=== PATIENT | female | born 1965 | race African-American/Black ===

== ENCOUNTER 2019-08-25 10:45 | Inpatient (IN) | payer OTHER ==
[2019-08-25] MEDS ORDERED: methylPREDNISolone NA SUCC 125 MG/2 ML VIAL IVPB ONE (10:53)
[2019-08-25 11:24] LABS: ARTERIAL BLD GAS O2 SATURATION 96.2 % (95-98); ARTERIAL BLOOD GAS BASE EXCESS -12.7 meq/l (-2-2); ARTERIAL BLOOD GAS PCO2 57.8 mmHg (35-45); ARTERIAL BLOOD GAS PO2 115 mmHg (80-100); BASO % 0.3 % (0-2.0); HEMATOCRIT 23.9 % (32.4-45.2); HEMOGLOBIN 7.8 GM/dL (10.7-15.3); LYMPH % 15.2 % (8-40); MCH 29.6 pg (25.7-33.7); MCHC 32.5 g/dl (32.0-36.0); MEAN PLT VOLUME 8.1 fl (7.5-11.1); MONO % 2.7 % (3.8-10.2); NEUT % 81.8 % (42.8-82.8); PLATELET COUNT 219 K/MM3 (134-434); RBC 2.63 M/mm3 (3.60-5.2)
[2019-08-25 11:26] LABS: ALLENS TEST POSITIVE; INR 0.89 (0.83-1.09); PROTHROMBIN TIME (PATIENT) 10.5 SEC (9.7-13.0)
[2019-08-25 11:27] LABS: ARTERIAL BLOOD GAS pH 7.09 (7.35-7.45)
[2019-08-25 11:29] LABS: ACTIVATED PTT 51.2 SECONDS (25.2-36.5)
[2019-08-25] MEDS: ALBUTEROL SO4 2.5/IPRATROPIUM 0.5 INH SOL 3 ML VIAL.NEB. NEB SCH ×2 (11:54→11:55)
--- NOTE | 2019-08-25 12:05 | PDOC ---
Documentation entered by Marty Weiss SCRIBE, acting as scribe for Joe Olmos MD. Joe Olmos MD: This documentation has been prepared by the Isela morales Nirvannie, SCRIBE, under my direction and personally reviewed by me in its entirety. I confirm that the documentation accurately reflects all work, treatment, procedures, and medical decision making performed by me. Attending Attestation - Resident Resident Name: WilliamsonGoldenann - ED Attending Attestation I have performed the following: I have examined & evaluated the patient, The case was reviewed & discussed with the resident, I agree w/resident's findings & plan, Exceptions are as noted - HPI HPI: 08/25/19 11:32 The patient is a 54 year old female, with a significant past medical history of COPD, IDDM, HTN, ?CHF, who presents to the emergency department from home via EMS with shortness of breath and lethargy. As per patients at bedside, patients son who is normally not around called EMS because the patient was lethargic. notes she takes many pills which, causes her to be drowsy". As per EMS, her vitals were 140/72 and 97% on room air. Patient received one nebulizer treatment en route. As per son on the phone, patient has experienced similar episodes in the past, which he attributed to her diabetes. He notes this is not her baseline. Allergies: NKDA - Physicial Exam PE: 08/25/19 12:44 See resident exam - Critical Care Time Total Critical Care Time: 180 Critical Care Statement: The care of this patient involved high complexity decision making to prevent further life threatening deterioration of the patient 's condition and/or to evaluate & treat vital organ system(s) failure or risk of failure. - Medical Decision Making 08/25/19 12:45 54 F with lethargy, SOB. Breathing sonorously in ED. Now on BiPAP Pt found to be acidotic to 7.09, lactate negative, pCO2 50s. Bicarb 18. Metabolic acidosis with mild respiratory acidosis. Pt's TSH measured to be 100 Possible myxedema coma, will check Free T4 08/25/19 13:05 Creatinine 7, no prior values in our system 08/25/19 14:58 Repeat ABG shows worsening acidosis, 7.06, pCO2 60 Pt's mental status unchanged, lethargic but arousable Will intubate for hypercapnic respiratory failure
[2019-08-25 12:06] LABS: ANISOCYTOSIS 2+; PLATELET ESTIMATE NORMAL
--- NOTE | 2019-08-25 12:14 | PDOC ---
History of Present Illness - General Chief Complaint: Respiratory Distress Stated Complaint: WEAKNESS Time Seen by Provider: 08/25/19 10:51 - History of Present Illness Initial Comments: 08/25/19 12:14 54 yo F PMH HTN, HLD, IDDM, COPD, anemia, thyroid cancer 6 years ago, BIBEMS with SOB and AMS. Here with boyfriend, who is unable or unwilling to provide much information. All history per son Isael Hill over the phone. Per the son , patient is normally walky talky, but has had many episodes in the past where she has gotten lethargic. However, these have reportedly always been due to sugar issues, either too high or too low. No known history of heart failure. Yesterday afternoon, patient apparently started to have worsening lethargy. Today, they attempted to get orange juice into her out of concern for her blood sugar, although finger stick was 251. Uncertain whether patient has been taking her medications. She recently moved to [place] this summer, had been going to [facility]. Pharmacy: [facility], [address] [facility], Isael Hill (son) phone: [phone] Allergies: seafood, dust, pollen Past History - Past Medical History Allergies/Adverse Reactions: Allergies Allergy/AdvReac Type Severity Reaction Status Date / Time No Known Allergies Allergy Verified 08/25/19 11:32 COPD: Yes Diabetes: Yes HTN: Yes Hypercholesterolemia: Yes Thyroid Disease: Yes - Immunization History Immunization Up to Date: Yes - Psycho Social/Smoking Cessation Hx Smoking History: Unknown if ever smoked Review of Systems - Review of Systems Comments:: 08/25/19 13:17 Unable to assess as patient is unable to answer questions *Physical Exam - Vital Signs Last Vital Signs Temp Pulse Resp BP Pulse Ox 94.5 F L 74 28 H 131/80 96 08/25/19 11:33 08/25/19 11:33 08/25/19 11:33 08/25/19 11:33 08/25/19 11:33 - Physical Exam 08/25/19 13:17 Gen: sleepy, lethargic, obese, BIPAP in place, ANN MARIE hugger in place Neuro: unable to assess, patient arousable to sternal rub, intermittently to voice, protecting airway HEENT: atraumatic, normocephalic, dry mucous membranes Neck: trachea midline, surgical scar CV: regular rate, regular rhythm, no murmurs, rubs, or gallops Pulm: expiratory snorting Abd: soft, non-distended, non-tender MSK: full ROM, intact pulses Extr: 2+ pitting edema to the knees, no deformities Skin: warm, dry Procedures - Intubation Time of Intubation: 16:00 Blade used: Glidescope Tube Size (Fr): 7.5 Medications: Ketamine Tube position @ lip (cm): 24 Tube position confirmed by: Direct visualization, CO2 detector, Breath sounds Intubation Complications: oralbleed ED Treatment Course - LABORATORY CBC & Chemistry Diagram: 08/25/19 11:00 08/25/19 11:00 - ADDITIONAL ORDERS Additional order review: Laboratory Results 08/25/19 08/25/19 08/25/19 11:00 11:00 11:00 PT with INR 10.50 INR 0.89 PTT (Actin FS) 51.2 H Anticoagulation Therapy No Result Required. Puncture Site Left radial ABG pH 7.09 L* ABG pCO2 at Pt Temp 57.8 H ABG pO2 at Pt Temp 115 H ABG HCO3 16.7 L ABG O2 Sat (Measured) 96.2 ABG O2 Content 13.0 ABG Base Excess -12.7 L Sky Test Positive O2 Delivery Device No Result Required. Oxygen Flow Rate 3l Vent Mode No Result Required. Vent Rate No Result Required. Mechanical Rate No Result Required. Pressure Support Vent No Result Required. Lactic Acid 0.7 Ammonia 08/25/19 08/25/19 11:00 11:00 PT with INR INR PTT (Actin FS) Cancelled Anticoagulation Therapy Puncture Site ABG pH ABG pCO2 at Pt Temp ABG pO2 at Pt Temp ABG HCO3 ABG O2 Sat (Measured) ABG O2 Content ABG Base Excess Sky Test O2 Delivery Device Oxygen Flow Rate Vent Mode Vent Rate Mechanical Rate Pressure Support Vent Lactic Acid Ammonia 24.90 08/25/19 11:00 RBC 2.63 L MCV 91.0 MCHC 32.5 RDW 20.0 H MPV 8.1 Neutrophils % 81.8 Lymphocytes % 15.2 Monocytes % 2.7 L Eosinophils % 0.0 Basophils % 0.3 Medical Decision Making - Medical Decision Making 08/25/19 13:12 54 yo F PMH thyroid issues, COPD, with SOB and AMS. - sepsis order set - EKG normal sinus at 78 bpm, low voltage QRS - CXR with congestive changes - ABG with pH 7.09 - TSH 100 - Cr 7.7, unknown history of kidney disease - BNP 3649.9, unknown history of CHF - will admit to ICU Patient discussed with [employer]RA[employer] Jackie, will get patient to the unit. Concern for myxedema v sepsis v COPD exacerbation vs CHF exacerbation. Giving IV levothyroxine 400 mcg. 08/25/19 14:41 Repeat ABG with pH 7.05 from 7.09, O2 88 from 96 Discharge - Discharge Information Problems reviewed: Yes Clinical Impression/Diagnosis: Myxedema coma, Acute renal failure, AMS (altered mental status), SOB ( shortness of breath) - Admission Yes - Follow up/Referral - Patient Discharge Instructions - Post Discharge Activity
[2019-08-25 12:19] LABS: ALBUMIN 2.5 g/dl (3.4-5.0); BILIRUBIN,TOTAL 0.5 mg/dL (0.2-1); BLOOD UREA NITROGEN 65.7 mg/dL (7-18); MAGNESIUM 1.6 mg/dL (1.8-2.4); N-TERMINAL BNP 3649.4 pg/ml (5-125); PHOSPHOROUS 6.3 mg/dL (2.5-4.9); POTASSIUM 4.9 mmol/L (3.5-5.1); TOT PROT 6.7 g/dl (6.4-8.2)
[2019-08-25 12:21] LABS: CALCIUM 6.8 mg/dL (8.5-10.1); CREATININE 7.7 mg/dL (0.55-1.3)
[2019-08-25] MEDS ORDERED: LEVOTHYROXINE SODIUM 100 MCG VIAL IVPUSH ONE (12:27)
[2019-08-25] MEDS ORDERED: SODIUM CHLORIDE 0.9% 500 ML INFUS.BAG IV ONE (13:07)
[2019-08-25 13:31] LABS: COCAINE, UR NEGATIVE ng/ml (CUTOFF=300); METHADONE, UR NEGATIVE ng/ml (CUTOFF=300); OPIATES, URI NEGATIVE ng/ml (CUTOFF=300); PHENCYCLIDINE,URINE NEGATIVE ng/ml (CUTOFF=25); URINE AMPHETAMINES NEGATIVE ng/ml (CUTOFF=500); URINE BARBITURATES NEGATIVE ng/ml (CUTOFF=200); URINE BENZODIAZEPINES NEGATIVE ng/ml (CUTOFF=200)
[2019-08-25] MEDS ORDERED: KETAMINE HCL 200 MG/20 ML VIAL IVPUSH ONE ×2 (13:48→16:25)
--- NOTE | 2019-08-25 14:19 | HP ---
CHIEF COMPLAINT: alerted mental status, shortness of breath PCP: does not have one HISTORY OF PRESENT ILLNESS: Patient is a 54 year old morbid obese female with a significant past medical history of hypertension, hyperlipidemia, diabetes, COPD, anemia, thyroid cancer 6 years ago (no prior admission to [facility]). Patient brought into the ED today for altered mental status and acute shortness of breath. She was found to have an elevated TSH, low t4 and hypothermic (96f-97-on mariana hugger). Urine is + for ecstasy. She also has renal failure with a creat of 7.7, bun of 65,mag 1.6, elevated ast/alt. In the ED she was placed on bipap pressure support for respiratory acidosis with a ph of 7.07,co2 64. Patient being admitted for myxedema coma, acute renal failure, acute metabolic encephalopathy , metabolic acidosis, hypercapneic respiratory failuare. Repeat abg without improvement of acidosis, and elevated co2. patient now intubated to protect airway. Patient to be admitted to the ICU. ER course was notable for: (1) Levothyroxine 400mg x 1 (2) bipap, now intubated (3) sepsis order set sent, lactic acid wnl (4) EKG normal sinus at 78 bpm, low voltage QRS (5) CXR with congestive changes (6) ABG with pH 7.09 (7) TSH 100, free t4 0.24, hypothermia (8) Cr 7.7, unknown history of jayne (9) BNP 3649.9, unknown history of CHF (10) elevated ast/alt Imaging: Head ct: pending chest xray: Recent Travel: unable to answer/lethargic PAST MEDICAL/SURGICAL HISTORY: hypertension, hyperlipidemia, diabetes, COPD, anemia, thyroid cancer Social History: Smoking: unknown Alcohol: unknown Drugs: + ecstasy Allergies No Known Allergies Allergy (Verified 08/25/19 11:32) PHYSICAL EXAMINATION Vital Signs - 24 hr 08/25/19 11:33 Temperature 94.5 F L Pulse Rate 74 Respiratory 28 H Rate Blood Pressure 131/80 O2 Sat by Pulse 96 Oximetry (%) GENERAL: intubated HEAD: Normal with no signs of trauma. EYES: Pupils equal, round and reactive to light EARS, NOSE, THROAT: Ears normal, nares patent, oropharynx clear without exudates. Moist mucous membranes. NECK: Normal range of motion, supple without lymphadenopathy, JVD, or masses. LUNGS: mild wheezing on anterior lobes, posterior lobes diminished breath sounds HEART: Regular rate and rhythm ABDOMEN: large obese abdomen MUSCULOSKELETAL: No CVA tenderness. UPPER EXTREMITIES:no edema LOWER EXTREMITIES: +2 lower ext edema NEUROLOGICAL:lethargic PSYCHIATRIC: lethargic SKIN: multiple tatoos Laboratory Results - last 24 hr 08/25/19 08/25/19 08/25/19 11:00 11:00 11:00 WBC RBC Hgb Hct MCV MCH MCHC RDW Plt Count MPV Absolute Neuts (auto) Neutrophils % Neutrophils % (Manual) Band Neutrophils % Lymphocytes % Lymphocytes % (Manual) Monocytes % Monocytes % (Manual) Eosinophils % Eosinophils % (Manual) Basophils % Basophils % (Manual) Myelocytes % (Man) Promyelocytes % (Man) Blast Cells % (Manual) Nucleated RBC % Metamyelocytes Platelet Estimate Anisocytosis PT with INR INR PTT (Actin FS) Cancelled Anticoagulation Therapy Puncture Site ABG pH ABG pCO2 at Pt Temp ABG pO2 at Pt Temp ABG HCO3 ABG O2 Sat (Measured) ABG O2 Content ABG Base Excess Sky Test O2 Delivery Device Oxygen Flow Rate Vent Mode Vent Rate Mechanical Rate Pressure Support Vent Sodium Potassium Chloride Carbon Dioxide Anion Gap BUN Creatinine Est GFR (CKD-EPI)AfAm Est GFR (CKD-EPI)NonAf Random Glucose Lactic Acid Calcium Phosphorus Magnesium Total Bilirubin AST ALT Alkaline Phosphatase Ammonia 24.90 Creatine Kinase 2402 H Creatine Kinase Index 1.0 CK-MB (CK-2) 24.6 H Troponin I < 0.02 B-Natriuretic Peptide Total Protein Albumin Beta-Hydroxybutyrate 1.1 TSH Thyroxine (T4) 3.2 L Stool Occult Blood Salicylates Opiates Screen Methadone Screen Acetaminophen Barbiturate Screen Phencyclidine Screen Ur Amphetamines Screen MDMA (Ecstasy) Screen Benzodiazepines Screen Cocaine Screen U Marijuana (THC) Screen Blood Type Antibody Screen 08/25/19 08/25/19 08/25/19 11:00 11:00 11:00 WBC 6.0 RBC 2.63 L Hgb 7.8 L Hct 23.9 L MCV 91.0 MCH 29.6 MCHC 32.5 RDW 20.0 H Plt Count 219 MPV 8.1 Absolute Neuts (auto) 4.9 Neutrophils % 81.8 Neutrophils % (Manual) 84.0 H Band Neutrophils % 1.0 Lymphocytes % 15.2 Lymphocytes % (Manual) 13.0 Monocytes % 2.7 L Monocytes % (Manual) 1 L Eosinophils % 0.0 Eosinophils % (Manual) 0.0 Basophils % 0.3 Basophils % (Manual) 1.0 Myelocytes % (Man) 0 Promyelocytes % (Man) 0 Blast Cells % (Manual) 0 Nucleated RBC % 0 Metamyelocytes 0 Platelet Estimate Normal Anisocytosis 2+ PT with INR INR PTT (Actin FS) Anticoagulation Therapy Puncture Site ABG pH ABG pCO2 at Pt Temp ABG pO2 at Pt Temp ABG HCO3 ABG O2 Sat (Measured) ABG O2 Content ABG Base Excess Sky Test O2 Delivery Device Oxygen Flow Rate Vent Mode Vent Rate Mechanical Rate Pressure Support Vent Sodium 139 Potassium 4.9 Chloride 111 H Carbon Dioxide 18 L Anion Gap 10 BUN 65.7 H Creatinine 7.7 H* Est GFR (CKD-EPI)AfAm 6.36 Est GFR (CKD-EPI)NonAf 5.49 Random Glucose 249 H Lactic Acid 0.7 Calcium 6.8 L* Phosphorus 6.3 H Magnesium 1.6 L Total Bilirubin 0.5 AST 110 H ALT 136 H Alkaline Phosphatase 959 H Ammonia Creatine Kinase Creatine Kinase Index CK-MB (CK-2) Troponin I B-Natriuretic Peptide 3649.4 H Total Protein 6.7 Albumin 2.5 L Beta-Hydroxybutyrate TSH 100.00 H Thyroxine (T4) Stool Occult Blood Salicylates Opiates Screen Methadone Screen Acetaminophen Barbiturate Screen Phencyclidine Screen Ur Amphetamines Screen MDMA (Ecstasy) Screen Benzodiazepines Screen Cocaine Screen U Marijuana (THC) Screen Blood Type Antibody Screen 08/25/19 08/25/19 08/25/19 11:00 11:00 11:18 WBC RBC Hgb Hct MCV MCH MCHC RDW Plt Count MPV Absolute Neuts (auto) Neutrophils % Neutrophils % (Manual) Band Neutrophils % Lymphocytes % Lymphocytes % (Manual) Monocytes % Monocytes % (Manual) Eosinophils % Eosinophils % (Manual) Basophils % Basophils % (Manual) Myelocytes % (Man) Promyelocytes % (Man) Blast Cells % (Manual) Nucleated RBC % Metamyelocytes Platelet Estimate Anisocytosis PT with INR 10.50 INR 0.89 PTT (Actin FS) 51.2 H Anticoagulation Therapy No Result Required. Puncture Site Left radial ABG pH 7.09 L* ABG pCO2 at Pt Temp 57.8 H ABG pO2 at Pt Temp 115 H ABG HCO3 16.7 L ABG O2 Sat (Measured) 96.2 ABG O2 Content 13.0 ABG Base Excess -12.7 L Sky Test Positive O2 Delivery Device No Result Required. Oxygen Flow Rate 3l Vent Mode No Result Required. Vent Rate No Result Required. Mechanical Rate No Result Required. Pressure Support Vent No Result Required. Sodium Potassium Chloride Carbon Dioxide Anion Gap BUN Creatinine Est GFR (CKD-EPI)AfAm Est GFR (CKD-EPI)NonAf Random Glucose Lactic Acid Calcium Phosphorus Magnesium Total Bilirubin AST ALT Alkaline Phosphatase Ammonia Creatine Kinase Creatine Kinase Index CK-MB (CK-2) Troponin I B-Natriuretic Peptide Total Protein Albumin Beta-Hydroxybutyrate TSH Thyroxine (T4) Stool Occult Blood Salicylates Opiates Screen Methadone Screen Acetaminophen Barbiturate Screen Phencyclidine Screen Ur Amphetamines Screen MDMA (Ecstasy) Screen Benzodiazepines Screen Cocaine Screen U Marijuana (THC) Screen Blood Type O POSITIVE Antibody Screen Negative 08/25/19 08/25/19 08/25/19 12:33 12:40 13:13 WBC RBC Hgb Hct MCV MCH MCHC RDW Plt Count MPV Absolute Neuts (auto) Neutrophils % Neutrophils % (Manual) Band Neutrophils % Lymphocytes % Lymphocytes % (Manual) Monocytes % Monocytes % (Manual) Eosinophils % Eosinophils % (Manual) Basophils % Basophils % (Manual) Myelocytes % (Man) Promyelocytes % (Man) Blast Cells % (Manual) Nucleated RBC % Metamyelocytes Platelet Estimate Anisocytosis PT with INR INR PTT (Actin FS) Anticoagulation Therapy Puncture Site ABG pH ABG pCO2 at Pt Temp ABG pO2 at Pt Temp ABG HCO3 ABG O2 Sat (Measured) ABG O2 Content ABG Base Excess Sky Test O2 Delivery Device Oxygen Flow Rate Vent Mode Vent Rate Mechanical Rate Pressure Support Vent Sodium Potassium Chloride Carbon Dioxide Anion Gap BUN Creatinine Est GFR (CKD-EPI)AfAm Est GFR (CKD-EPI)NonAf Random Glucose Lactic Acid Calcium Phosphorus Magnesium Total Bilirubin AST ALT Alkaline Phosphatase Ammonia Creatine Kinase Creatine Kinase Index CK-MB (CK-2) Troponin I B-Natriuretic Peptide Total Protein Albumin Beta-Hydroxybutyrate TSH Thyroxine (T4) Stool Occult Blood Negative Salicylates < 1.7 L Opiates Screen Negative Methadone Screen Negative Acetaminophen 2.1 Barbiturate Screen Negative Phencyclidine Screen Negative Ur Amphetamines Screen Negative MDMA (Ecstasy) Screen Positive A* Benzodiazepines Screen Negative Cocaine Screen Negative U Marijuana (THC) Screen Negative Blood Type Antibody Screen ASSESSMENT/PLAN: Family Medical History Family History: Unable to Obtain Problem List - Problem (1) Myxedema coma Assessment/Plan: Patient with a history of hypothyroidism and thyroid cancer and presents to the Ed with altered mental stauts, hypothermia (97F) requiring a mariana hugger, acute renal failure (creat 7.7 with unknown baseline), elevated liver enzymes, metabolic acidosis, acute shortness of breath, obtunded requiring intubation to protect airway. repeat abgs without improvement with which shows respiratory failure with hypercapnia. Given Levothyroxine 100mcg IV started on daily levothyrxine 100ng daily cardiac monitoring endocrinology consulted. Code(s): E03.5 - MYXEDEMA COMA (2) Hypercapnic respiratory failure Assessment/Plan: initally on bipap on admission, now intubated abg with with hypercapnic respiratory failure Code(s): J96.92 - RESPIRATORY FAILURE, UNSPECIFIED WITH HYPERCAPNIA (3) SOB (shortness of breath) Assessment/Plan: in the setting of uremia, ecstasy in urine, hypercapnic respiratory failure and possible myxedema coma Code(s): R06.02 - SHORTNESS OF BREATH (4) Acute metabolic encephalopathy Assessment/Plan: patient presents to the ED obtuned Has + ecstasy in urine acute AMS possibly secondary to myexedma coma (TSH 100)with acute hypercapneic respiratory failure/acidosis with uremia on labs with unknown baseline (bun 65, creat 7.7) intubated in the ED to protect airway, trial of bipap given but repeat abgs unchanged. Patient for ICU monitoring Head Ct pending monitor mental status/neuro status Code(s): G93.41 - METABOLIC ENCEPHALOPATHY (5) Morbid obesity Code(s): E66.01 - MORBID (SEVERE) OBESITY DUE TO EXCESS CALORIES (6) AMS (altered mental status) Assessment/Plan: see acute metabolic encephalopathy Code(s): R41.82 - ALTERED MENTAL STATUS, UNSPECIFIED (7) Acute renal failure Assessment/Plan: acute renal failure with hypoxia, anasarca and respiratory failure. renal dose all medications urine studies pending ocampo cathter placed for intake and output, monitor weights daily renal consulted for possible initiation of dialysis for creat 7.7 potassium within normal limits Code(s): N17.9 - ACUTE KIDNEY FAILURE, UNSPECIFIED (8) Metabolic acidosis Assessment/Plan: acute metabolic acidosis endocrine consulted given levothyroxine IV in the Ed, started on levothyroxine 100mg daily On insulin drip per protocol with close monitoring of blood glucose q 1 hr keep npo Code(s): E87.2 - ACIDOSIS (9) Diabetes Assessment/Plan: on an insulin drip bgms q 1hr Code(s): E11.9 - TYPE 2 DIABETES MELLITUS WITHOUT COMPLICATIONS (10) Hypothermia Assessment/Plan: hypothermia of unclear etiology blood and urine cultures sent and pending chest xray shows left pleural effusion, small left base infiltrate on zosyn pending ID consultation for further recommendations lactic acid within normals limits Code(s): T68.XXXA - HYPOTHERMIA, INITIAL ENCOUNTER Visit type - Emergency Visit Emergency Visit: Yes ED Registration Date: 08/25/19 Care time: The patient presented to the Emergency Department on the above date and was hospitalized for further evaluation of their emergent condition. - New Patient This patient is new to me today: Yes Date on this admission: 08/26/19 - Critical Care Critical Care patient: Yes Total Critical Care Time (in minutes): 60 Critical Care Statement: The care of this patient involved high complexity decision making to prevent further life threatening deterioration of the patient 's condition and/or to evaluate & treat vital organ system(s) failure or risk of failure.
[2019-08-25] MEDS ORDERED: KETAMINE HCL 200 MG/20 ML VIAL ONE (14:23)
[2019-08-25 14:29] LABS: ARTERIAL BLD GAS O2 SATURATION 88.5 % (95-98); ARTERIAL BLOOD GAS BASE EXCESS -13.1 meq/l (-2-2); ARTERIAL BLOOD GAS PCO2 64.6 mmHg (35-45); ARTERIAL BLOOD GAS PO2 69.1 mmHg (80-100); CARBOXYHEMOGLOBIN 0.6 % (0-2)
[2019-08-25 14:32] LABS: ALLENS TEST POSITIVE
[2019-08-25 14:33] LABS: ARTERIAL BLOOD GAS pH 7.04 (7.35-7.45)
--- NOTE | 2019-08-25 14:46 | CONSULT ---
Consult Consult Specialty:: Pulm/Critical Care Medicine Reason for Consultation:: AMS, renal failure, respiratory failure, myxedema coma - History of Present Illness Chief Complaint: AMS History of Present Illness: This is a 54 yo morbily obese woman new to our insitution w/ h/o thyroid cancer s/p thyroidectomy, IDDM, COPD who presented to the ED with lethargy and SOB found to be hypothermic w/ temp 94.5 c/f mixedema coma c/b renal failure w/ uremia and hypercapnic respiratory failure. Briefly, patient recently moved to area has no PMD here. Per her son that patient has been non compliant w/ her medications. On exam in ED patient obtunded, unable to answer questions and only responsive to noxious stimulation. Initial AB.09/58/115 on NC. She was placed on NIPPV for hypercapnia. Other notable labs: TSH 100, T4: 3.5, cortisol pending. BUN/SCr 65 /7.7 AG 10. UTOX + ecstasy. VS: temp 94f, HR 76,BP: 131/80 RR 24-28 bpm. - History Source History Provided By: Medical Record Limitations to Obtaining History: Unresponsive - Past Medical History Cardio/Vascular: Yes: HTN Pulmonary: Yes: COPD Heme/Onc: Yes: Cancer (Thyroid cancer s/p thyroidectomy) Psych: Yes: Addictions (ecstacy) Endocrine: Yes: Diabetes Mellitus, Hypothyroidism - Past Surgical History Additional Surgical History: thyroidectomy - Smoking History Smoking history: Unknown if ever smoked - Social History Usual Living Arrangement: With Significant Other Home Medications - Allergies Allergies/Adverse Reactions: Allergies Allergy/AdvReac Type Severity Reaction Status Date / Time No Known Allergies Allergy Verified 08/25/19 11:32 Family Medical History Family History: Unable to Obtain Review of Systems Unable to obtain ROS, reason: AMS Physical Exam Vital Signs: Vital Signs Temperature 94 F L 08/25/19 14:07 Pulse Rate 75 08/25/19 14:07 Respiratory Rate 24 H 08/25/19 14:07 Blood Pressure 141/60 08/25/19 14:07 O2 Sat by Pulse Oximetry (%) 100 08/25/19 14:07 Constitutional: Yes: Severe Distress Eyes: Yes: PERRL, Other (exopthalmos) Cardiovascular: Yes: S1, S2 Respiratory: Yes: Diminished, On BiPap, Poor Air Entry, Rales, Wheezes Gastrointestinal: Yes: Normal Bowel Sounds, Soft, Abdomen, Obese Edema: LLE: 3+ (warm to touch ), RLE: 3+ (warm to touch ) Peripheral Pulses WNL: Yes Integumentary: Yes: Tattoos Neurological: Yes: Unresponsive Labs: ABG Results ABG pH 7.04 (7.35-7.45) L* 08/25/19 14:25 ABG pCO2 at Pt Temp 64.6 mmHg (35-45) H 08/25/19 14:25 ABG pO2 at Pt Temp 69.1 mmHg (80-100) L 08/25/19 14:25 ABG HCO3 16.7 mmol/L (22-27) L 08/25/19 14:25 ABG O2 Sat (Measured) 88.5 % (95-98) L 08/25/19 14:25 ABG O2 Content 9.5 % vol 08/25/19 14:25 ABG Base Excess -13.1 meq/l (-2-2) L 08/25/19 14:25 CBCD WBC 6.0 K/mm3 (4.0-10.0) 08/25/19 11:00 RBC 2.63 M/mm3 (3.60-5.2) L 08/25/19 11:00 Hgb 7.8 GM/dL (10.7-15.3) L 08/25/19 11:00 Hct 23.9 % (32.4-45.2) L 08/25/19 11:00 MCV 91.0 fl (80-96) 08/25/19 11:00 MCHC 32.5 g/dl (32.0-36.0) 08/25/19 11:00 RDW 20.0 % (11.6-15.6) H 08/25/19 11:00 Plt Count 219 K/MM3 (134-434) 08/25/19 11:00 MPV 8.1 fl (7.5-11.1) 08/25/19 11:00 CMP Sodium 139 mmol/L (136-145) 08/25/19 11:00 Potassium 4.9 mmol/L (3.5-5.1) 08/25/19 11:00 Chloride 111 mmol/L (98-107) H 08/25/19 11:00 Carbon Dioxide 18 mmol/L (21-32) L 08/25/19 11:00 Anion Gap 10 MMOL/L (8-16) 08/25/19 11:00 BUN 65.7 mg/dL (7-18) H 08/25/19 11:00 Creatinine 7.7 mg/dL (0.55-1.3) H* 08/25/19 11:00 Random Glucose 249 mg/dL (74-106) H 08/25/19 11:00 Calcium 6.8 mg/dL (8.5-10.1) L* 08/25/19 11:00 Total Bilirubin 0.5 mg/dL (0.2-1) 08/25/19 11:00 AST 110 U/L (15-37) H 08/25/19 11:00 ALT 136 U/L (13-61) H 08/25/19 11:00 Alkaline Phosphatase 959 U/L (45-117) H 08/25/19 11:00 Total Protein 6.7 g/dl (6.4-8.2) 08/25/19 11:00 Albumin 2.5 g/dl (3.4-5.0) L 08/25/19 11:00 CARDIAC ENZYMES Creatine Kinase 2402 U/L (26-192) H 08/25/19 11:00 Troponin I < 0.02 ng/ml (0.00-0.05) 08/25/19 11:00 Imaging - Results Chest X-ray: Report Reviewed, Image Reviewed (pulmonary vascular congestion, retrocardiac opacity +/- effusion) Problem List - Problems (1) Hypercapnic respiratory failure Code(s): J96.92 - RESPIRATORY FAILURE, UNSPECIFIED WITH HYPERCAPNIA (2) Metabolic acidosis Code(s): E87.2 - ACIDOSIS (3) AMS (altered mental status) Code(s): R41.82 - ALTERED MENTAL STATUS, UNSPECIFIED (4) Acute renal failure Code(s): N17.9 - ACUTE KIDNEY FAILURE, UNSPECIFIED (5) 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 - MYXEDEMA COMA Assessment/Plan 54 yo woman w/ h/o thyroid cancer s/p thyroidectomy on levothyroxine, IDDM, COPD who presented with AMS c/f myxedema coma (TSH 100, t:94.5) c/b renal failure w/ uremia (BUN:SCr 65.7:7.7) and combined metabolic and hypercapnic respiratory acidosis requiring NIPPV Pulm: COPD, hypercapnic respiratory failure, likely element of ANGELIQUE/OHS -O2 for sat >90 -NIPPV for hypercapnic respiratory support -monitor mental status, intubation if needed -trend ABG and CXR -pt will be on stress steroids for possible adrenal insufficiency also treating possible COPD exacerbation -albuterol nebs prn -OP sleep study Renal: Renal failure, unclear chronicity. Volume overload: LE edema, pulmonary vascular congestion, Metabolic acidosis likely 2/2 uremia. p -Renal consult -renal dose all medications -send urine lytes, urine protein, urine creatinine -renal u/s -ocampo cath for strict I&Os -may require iHD for metabolic acidosis/uremia vs trial of high dose lasix Endo: IDDM, hypothyroid 2/2 thyroidectomy r/t cancer p/w hypothermia, AMS, TSH 100, hypoventilation (PaCO2 58), -Endocrine consult -will start levothyroxine 100mcg daily -stress dose steroids hydrocort 100mg q8 for possible adrenal insufficiency -f/u cortisol level -check free t4 and free t3 -rewarm w/ mariana hugger -Insulin drip 0.1units/kg/hr --if BG doesnt fall by 50-70 mg/dl in first hr double insulin infusion until BG drops by 50-70 mg/dl --goal B-200mg/dl ID: hypothermia, unclear if infectious etiology given normal WBC but if has adrenal insufficantcy may be unable to mount white count -escobedo culture: blood, urine -procalcitonin -empiric ABX for broad coverage: zosyn given possible aspiration i/s/o AMS Nuero: AMS likely multifactorial: myxedema coma +/- uremia +/- infection, metabolic encephalopathy, drug: tox (+) ecstasy -head CT done -frequent neuro checks CV: BP stable -EKG -ECHO to evaluate baseline function given pulmonary edema -trend trop x3 Boerem ACNP Pulm/CCM CCT: 60m
[2019-08-25] MEDS ORDERED: ALBUTEROL SO4 0.083% IH SOL 2.5 MG/3 ML VIAL.NEB. NEB PRN (14:57)
[2019-08-25] MEDS ORDERED: ALBUTEROL SO4 2.5/IPRATROPIUM 0.5 INH SOL 3 ML VIAL.NEB. NEB PRN (14:57)
[2019-08-25] MEDS ORDERED: RAPID SEQUENCE INTUBATION KIT NR ONE (15:06)
[2019-08-25] MEDS ORDERED: INSULIN REGULAR 100 UNITS in SODIUM CHLORIDE 99 ML IVPB SCH ×2 (15:15→20:15)
[2019-08-25] MEDS ORDERED: DEXTROSE 5%-NORMAL SALINE 1,000 ML IV SCH (15:15)
[2019-08-25] MEDS ORDERED: SODIUM BICARBONATE 4.2% 5 MEQ/10 ML DISP.SYRIN IVPUSH ONE ×5 (15:21→16:26)
[2019-08-25] MEDS ORDERED: MIDAZOLAM IN 0.9 % SOD.CHLORID 1 MG/1 ML PLAST..BAG ONE (15:25)
[2019-08-25] MEDS: MIDAZOLAM 100 MG in SODIUM CHLORIDE 100 ML IVPB SCH ×2 (15:43→18:06)
--- NOTE | 2019-08-25 15:55 | CONSULT ---
Consult Consult Specialty:: Nephrology Reason for Consultation:: LUCY - History of Present Illness Chief Complaint: lethargy and SOB History of Present Illness: Pt is a 54 year old female with pmhx of thyroid cancer, DM, and COPD who presents to the ER with lthargy and dyspnea. SHe was found to be hypothermic. I was called to evaluate the patient for LUCY. She is not compliant with her meds per the family. She recently moved to [place] and does not have a PMD here. Pt was intubated in ER and unable to give history. Chart was reviewed and I discussed the case with the ER and ICU team at bedside. - History Source History Provided By: Family Member, Medical Record - Past Medical History Cardio/Vascular: Yes: HTN Pulmonary: Yes: COPD Psych: Yes: Addictions (ecstacy) Endocrine: Yes: Diabetes Mellitus, Hypothyroidism - Past Surgical History Additional Surgical History: thyroidectomy - Smoking History Smoking history: Unknown if ever smoked - Social History Usual Living Arrangement: With Significant Other Home Medications - Allergies Allergies/Adverse Reactions: Allergies Allergy/AdvReac Type Severity Reaction Status Date / Time pollen extracts AdvReac Unknown Verified 08/25/19 18:16 shellfish derived AdvReac Unknown Verified 08/25/19 18:16 - Home Medications Home Medications: Ambulatory Orders Aspirin 81 mg PO DAILY 08/25/19 Atorvastatin Calcium 10 mg PO HS 08/25/19 Cetirizine HCl [Allergy Relief] 10 mg PO DAILY 08/25/19 Docusate Sodium [Docusate 100 mg] 100 mg PO BID 08/25/19 Levothyroxine [Synthroid -] 200 mcg PO DAILY 08/25/19 Lisinopril [Prinivil -] 40 mg PO DAILY 08/25/19 Nifedipine [Adalat cc] 60 mg PO DAILY 08/25/19 Sitagliptin Phosphate [Januvia] 50 mg PO DAILY 08/25/19 Family Medical History Family History: Unable to Obtain Review of Systems Unable to obtain ROS, reason: intubated Physical Exam Vital Signs: Vital Signs Temperature 94 F L 08/25/19 14:07 Pulse Rate 75 08/25/19 14:07 Respiratory Rate 24 H 08/25/19 14:07 Blood Pressure 141/60 08/25/19 14:07 O2 Sat by Pulse Oximetry (%) 100 08/25/19 14:07 Constitutional: Yes: Calm Eyes: Yes: Conjunctiva Clear HENT: Yes: Atraumatic Cardiovascular: Yes: S1, S2 Respiratory: Yes: Intubated, Mechanically Ventilated Gastrointestinal: Yes: Soft, Abdomen, Obese Renal/: Yes: Ocampo Present Edema: Yes Edema: LUE: 1+, RUE: 1+, LLE: 2+, RLE: 2+ Neurological: Yes: Lethargy Labs: CBC, BMP 08/25/19 11:00 08/25/19 11:00 Imaging - Results Chest X-ray: Report Reviewed Problem List - Problems (1) AMS (altered mental status) Code(s): R41.82 - ALTERED MENTAL STATUS, UNSPECIFIED (2) Acute metabolic encephalopathy Code(s): G93.41 - METABOLIC ENCEPHALOPATHY (3) Acute renal failure Code(s): N17.9 - ACUTE KIDNEY FAILURE, UNSPECIFIED (4) Diabetes Code(s): E11.9 - TYPE 2 DIABETES MELLITUS WITHOUT COMPLICATIONS (5) Hypercapnic respiratory failure Code(s): J96.92 - RESPIRATORY FAILURE, UNSPECIFIED WITH HYPERCAPNIA (6) Hypothermia Code(s): T68.XXXA - HYPOTHERMIA, INITIAL ENCOUNTER (7) Morbid obesity Code(s): E66.01 - MORBID (SEVERE) OBESITY DUE TO EXCESS CALORIES Assessment/Plan Current Medications Generic Name Dose Route Start Last Admin Trade Name Freq PRN Reason Stop Dose Admin Albuterol Sulfate 1 amp 08/25/19 14:57 Ventolin 0.083% Nebulizer Soln - NEB Q6H PRN SHORT OF BREATH/WHEEZING Albuterol/Ipratropium 1 amp 08/25/19 14:57 Duoneb - NEB Q4H PRN SHORTNESS OF BREATH Heparin Sodium (Porcine) 5,000 unit 08/25/19 22:00 Heparin - SQ TID ZOE Hydrocortisone Sodium Succinate 100 mg 08/25/19 15:00 Solu-Cortef - IVPUSH Q8H ZOE Famotidine/Sodium Chloride 20 mg in 50 mls @ 100 mls/hr 08/26/19 08:00 Pepcid 20 Mg Premixed Ivpb - IVPB DAILY@0800 ZOE Dextrose/Sodium Chloride 1,000 mls @ 42 mls/hr 08/25/19 15:15 D5-Ns - IV ASDIR ZOE Insulin Human Regular 100 100 mls @ 11.33 mls/hr 08/25/19 15:15 units/ Sodium Chloride IVPB TITR ZOE Protocol 0.1 UNITS/KG/HR Levothyroxine Sodium 100 mcg 08/26/19 10:00 Synthroid Injection - IVPUSH DAILY ZOE Laboratory Tests 08/25/19 11:00 TSH 100.00 H Impression 1. LUCY 2. fluid overload 3. acute respiratory failure 4. hypothyroidism with tsh of 100 5. 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 urine tox pos for mdma 7. mild rhabdo Plan - vent support - repeat abg - give lasix and monitor for response - monitor urine output - if she does not respond to diuretics she will need HD - ocampo in place - recommend endocrine eval - check urine lytes and unit assistant - check echo - check renal ultrasound
[2019-08-25] MEDS ORDERED: PROPOFOL 1,000,000 MCG/100 ML VIAL ONE (16:01)
[2019-08-25] MEDS ORDERED: FUROSEMIDE 40 MG/4 ML INJECTABLE VIAL IVPUSH ONE ×2 (16:08→21:22)
[2019-08-25] MEDS ORDERED: PIPERACILLIN/TAZOB 3.375 GM 3.375 GM in DEXTROSE 5%-WATER - 50 ML IVPB SCH ×2 (17:00→22:00)
[2019-08-25] MEDS ORDERED: DEXTROSE 5%-WATER - 50 ML IVPB ONE (17:52)
[2019-08-25] MEDS ORDERED: PIPERACILLIN/TAZOBACTAM 3.375 GM VIAL IVPB ONE (17:52)
[2019-08-25] MEDS ORDERED: INSULIN REGULAR HUMAN 100 UNITS/ML *VIAL ONE (17:53)
[2019-08-25] MEDS: HYDROCORTISONE SOD SUCCINATE 100 MG/2 ML VIAL IVPUSH SCH ×2 (17:56→22:23)
[2019-08-25] MEDS ORDERED: SODIUM BICARBONATE 8.4% 50 MEQ/50 ML VIAL ONE (18:22)
[2019-08-25] MEDS ORDERED: SODIUM BICARBONATE 8.4% 50 MEQ/50 ML DISP.SYRIN IVPUSH STA ×3 (18:33→18:35)
[2019-08-25] MEDS ORDERED: fentaNYL CITRATE 250 MCG/5 ML VIAL ONE (18:46)
[2019-08-25 18:53] LABS: ARTERIAL BLD GAS O2 SATURATION 99.2 % (95-98); ARTERIAL BLOOD GAS BASE EXCESS -3.1 meq/l (-2-2); ARTERIAL BLOOD GAS PCO2 46.1 mmHg (35-45); ARTERIAL BLOOD GAS PO2 309 mmHg (80-100); ARTERIAL BLOOD GAS pH 7.31 (7.35-7.45)
[2019-08-25] MEDS: FENTANYL INJECTION 500 MCG in DEXTROSE 5%-WATER - 90 ML IVPB SCH (18:54)
[2019-08-25] MEDS: PROPOFOL 1,000,000 MCG/100 ML VIAL IVPB SCH (18:54)
[2019-08-25 18:55] LABS: ALLENS TEST POSITIVE
--- NOTE | 2019-08-25 20:51 | CON.ID ---
Consult - Past Medical History Cardio/Vascular: Yes: HTN Pulmonary: Yes: COPD Psych: Yes: Addictions (ecstacy) Endocrine: Yes: Diabetes Mellitus, Hypothyroidism - Past Surgical History Additional Surgical History: thyroidectomy - Alcohol/Substance Use Hx Alcohol Use: (not known) - Smoking History Smoking history: Unknown if ever smoked - Social History Usual Living Arrangement: With Significant Other Home Medications - Allergies Allergies/Adverse Reactions: Allergies Allergy/AdvReac Type Severity Reaction Status Date / Time pollen extracts AdvReac Unknown Verified 08/25/19 18:16 shellfish derived AdvReac Unknown Verified 08/25/19 18:16 - Home Medications Home Medications: Ambulatory Orders Aspirin 81 mg PO DAILY 08/25/19 Atorvastatin Calcium 10 mg PO HS 08/25/19 Cetirizine HCl [Allergy Relief] 10 mg PO DAILY 08/25/19 Docusate Sodium [Docusate 100 mg] 100 mg PO BID 08/25/19 Levothyroxine [Synthroid -] 200 mcg PO DAILY 08/25/19 Lisinopril [Prinivil -] 40 mg PO DAILY 08/25/19 Nifedipine [Adalat cc] 60 mg PO DAILY 08/25/19 Sitagliptin Phosphate [Januvia] 50 mg PO DAILY 08/25/19 Physical Exam Vital Signs: Vital Signs Temperature 97 F L 08/25/19 20:00 Pulse Rate 70 08/25/19 20:00 Respiratory Rate 22 H 08/25/19 20:17 Blood Pressure 134/68 08/25/19 20:00 O2 Sat by Pulse Oximetry (%) 100 08/25/19 20:00 Labs: CBC, BMP 08/25/19 11:00 08/25/19 11:00
[2019-08-25] MEDS: HEPARIN NA (PORCINE) 5,000 UNITS/ML 1ML VIAL SQ SCH (21:03)
[2019-08-25] MEDS ORDERED: MAGNESIUM SULF 50% (8.12 MEQ/2 ML-1 GM VIAL) IVPB ONE (21:24)
[2019-08-26] MEDS ORDERED: PIPERACILLIN/TAZOBACTAM 2.25 GM VIAL IVPB ONE ×4 (00:02→20:37)
[2019-08-26] MEDS ORDERED: DEXTROSE 5%-WATER - 50 ML IVPB ONE ×4 (00:02→20:37)
[2019-08-26] MEDS ORDERED: fentaNYL CITRATE 250 MCG/5 ML VIAL ONE ×3 (00:18→20:36)
[2019-08-26] MEDS: PIPERACILLIN/TAZOB 2.25 GM 2.25 GM in DEXTROSE 5%-WATER - 50 ML IVPB SCH ×3 (01:20→17:35)
[2019-08-26] MEDS: FENTANYL INJECTION 500 MCG in DEXTROSE 5%-WATER - 90 ML IVPB SCH ×2 (01:23→19:00)
[2019-08-26] MEDS: PROPOFOL 1,000,000 MCG/100 ML VIAL IVPB SCH ×2 (01:24→19:00)
[2019-08-26] MEDS: HEPARIN NA (PORCINE) 5,000 UNITS/ML 1ML VIAL SQ SCH ×3 (05:03→14:43)
[2019-08-26] MEDS: HYDROCORTISONE SOD SUCCINATE 100 MG/2 ML VIAL IVPUSH SCH ×3 (06:01→22:04)
[2019-08-26] MEDS: INSULIN SLIDING SCALE (NOVOLOG) 1 VIAL SQ SCH ×4 (06:11→22:11)
[2019-08-26 07:30] LABS: ARTERIAL BLD GAS O2 SATURATION 98.5 % (95-98); ARTERIAL BLOOD GAS PCO2 33.2 mmHg (35-45); ARTERIAL BLOOD GAS PO2 149 mmHg (80-100); ARTERIAL BLOOD GAS pH 7.32 (7.35-7.45)
[2019-08-26 07:40] LABS: ALLENS TEST POSITIVE
[2019-08-26 08:14] LABS: BASO % 0.1 % (0-2.0); LYMPH % 15.3 % (8-40); MCH 29.9 pg (25.7-33.7); MCHC 33.5 g/dl (32.0-36.0); MEAN CELL VOLUME 89.2 fl (80-96); MEAN PLT VOLUME 8.6 fl (7.5-11.1); MONO % 1.7 % (3.8-10.2); NEUT % 82.9 % (42.8-82.8); PLATELET COUNT 228 K/MM3 (134-434); RBC 2.24 M/mm3 (3.60-5.2); RDW 19.4 % (11.6-15.6); WHITE BLOOD COUNT 6.8 K/mm3 (4.0-10.0)
[2019-08-26 08:34] LABS: ANION GAP 12 MMOL/L (8-16); BILIRUBIN,DIRECT 0.2 mg/dL (0.0-0.2); BILIRUBIN,TOTAL 0.4 mg/dL (0.2-1); BLOOD UREA NITROGEN 68.7 mg/dL (7-18); CHLORIDE 112 mmol/L (98-107); CO2 19 mmol/L (21-32); GLUCOSE,RANDOM 190 mg/dL (74-106); MAGNESIUM 1.7 mg/dL (1.8-2.4); PHOSPHOROUS 6.8 mg/dL (2.5-4.9); POTASSIUM 4.7 mmol/L (3.5-5.1); SGOT/AST 59 U/L (15-37); SGPT/ALT 95 U/L (13-61); SODIUM 143 mmol/L (136-145); TOT PROT 5.6 g/dl (6.4-8.2)
[2019-08-26] MEDS: FAMOTIDINE 20 MG/50 ML IVPB 20 MG/50 ML MG IVPB SCH (08:34)
[2019-08-26 08:35] LABS: ALK PHOS 766 U/L (45-117)
[2019-08-26 08:36] LABS: HEMOGLOBIN 6.7 GM/dL (10.7-15.3)
[2019-08-26 08:46] LABS: CALCIUM 6.6 mg/dL (8.5-10.1); CREATININE 7.9 mg/dL (0.55-1.3)
[2019-08-26] MEDS ORDERED: MAGNESIUM SULF 50% (8.12 MEQ/2 ML-1 GM VIAL) IVPB ONE (08:55)
--- NOTE | 2019-08-26 10:10 | ECHO ---
Name: VIVIAN MOON Exam:Adult Echocardiogram Study Date: 08/26/2019 08:48 AM Age: 54 yrs Reason For Study: HEART FAILURE Height: 66 in Weight: 250 lb BSA: 2.2 m2 MMode/2D Measurements & Calculations IVSd: 1.5 cm Ao root diam: 2.8 cm LVIDd: 4.0 cm LA dimension: 3.7 cm LVIDs: 2.3 cm LVPWd: 1.6 cm EDV(Teich): 71.5 ml LVOT diam: 2.0 cm ESV(Teich): 17.8 ml LAV (MOD-bp): 66.4 ml Doppler Measurements & Calculations MV E max jorge: 71.3 cm/sec Ao V2 max: 129.0 cm/sec MV A max jorge: 63.1 cm/sec Ao max P.7 mmHg MV E/A: 1.1 MV dec time: 0.15 sec MIKE(V,D): 1.9 cm2 LV V1 max P.5 mmHg PA V2 max: 96.4 cm/sec LV V1 max: 78.6 cm/sec PA max P.7 mmHg Med Peak E' Jorge: 5.8 cm/sec Med E/e': 12.4 Lat Peak E' Jorge: 3.4 cm/sec Lat E/e': 21.1 Procedure A complete two-dimensional transthoracic echocardiogram was performed (2D, M-mode, Doppler and color flow Doppler). Technically limited study. Left Ventricle The left ventricle is normal in size. There is moderate concentric left ventricular hypertrophy. Left ventricular systolic function is normal. Ejection Fraction = 65-70%. No regional wall motion abnormal ities noted. Right Ventricle The right ventricle is not well visualized. Atria The left atrial size is normal. Right atrium not well visualized. Mitral Valve There is mild mitral valve thickening. There is no mitral regurgitation noted. Tricuspid Valve The tricuspid valve is normal in structure and function. There is mild tricuspid regurgitation. Aortic Valve The aortic valve is normal in structure and function. No aortic regurgitation is present. Pulmonic Valve The pulmonic valve is not well visualized. Great Vessels The aortic root is normal size. Pericardium/Pleura Small pericardial effusion (<1cm). There is a pleural effusion present. Interpretation Summary Technically limited study The left ventricle is normal in size. There is moderate concentric left ventricular hypertrophy. Left ventricular systolic function is normal. No regional wall motion abnormalities noted. Ejection Fraction = 65-70%. The right ventricle is not well visualized. The left atrial size is normal. There is mild mitral valve thickening. There is mild tricuspid regurgitation. Small pericardial effusion (<1cm) There is a pleural effusion present. Harry Siddiqi MD 08/26/2019 10:09 AM
[2019-08-26] MEDS ORDERED: FUROSEMIDE 40 MG/4 ML INJECTABLE VIAL IVPUSH ONE (10:46)
[2019-08-26 10:52] LABS: BASO % 0.1 % (0-2.0); HEMATOCRIT 17.4 % (32.4-45.2); MCH 29.7 pg (25.7-33.7); MONO % 2.9 % (3.8-10.2); PLATELET COUNT 202 K/MM3 (134-434); RBC 1.94 M/mm3 (3.60-5.2); RDW 19.1 % (11.6-15.6); WHITE BLOOD COUNT 6.3 K/mm3 (4.0-10.0)
[2019-08-26] MEDS ORDERED: PT OWN MED DRAWER 7, Y5N ONE ×2 (11:09→13:15)
[2019-08-26] MEDS ORDERED: FUROSEMIDE 40 MG/4 ML INJECTABLE VIAL ONE (11:10)
[2019-08-26 11:16] LABS: HEMOGLOBIN 5.8 GM/dL (10.7-15.3)
[2019-08-26] MEDS ORDERED: MIDAZOLAM HCL 2 MG/2 ML SINGLE DOSE VIAL IVPUSH ONE (11:41)
--- NOTE | 2019-08-26 11:51 | CON.ID ---
Consult Consult Specialty:: infectious diseases Referred by:: Mirna Reason for Consultation:: sepsis,resp failure - History of Present Illness Chief Complaint: resp failure History of Present Illness: patient is intubated,history obtained from the chart 54 year old morbid obese female with a significant past medical history of hypertension, hyperlipidemia, diabetes, COPD, anemia, thyroid cancer 6 years ago patient was brought to the hospital because of ams and ac sob work up found that the patient was hypothermic,and with high tsh,renal failure urine was positive for ecstasy respiratory acidosis with a ph of 7.07,co2 64. patient was initially on bipap then intubated - History Source History Provided By: Medical Record Limitations to Obtaining History: Clinical Condition - Past Medical History Cardio/Vascular: Yes: HTN Pulmonary: Yes: COPD Psych: Yes: Addictions (ecstacy) Endocrine: Yes: Diabetes Mellitus, Hypothyroidism - Past Surgical History Additional Surgical History: thyroidectomy - Alcohol/Substance Use Hx Alcohol Use: (not known) - Smoking History Smoking history: Unknown if ever smoked - Social History Usual Living Arrangement: With Significant Other Home Medications - Allergies Allergies/Adverse Reactions: Allergies Allergy/AdvReac Type Severity Reaction Status Date / Time pollen extracts AdvReac Unknown Verified 08/25/19 18:16 shellfish derived AdvReac Unknown Verified 08/25/19 18:16 - Home Medications Home Medications: Ambulatory Orders Aspirin 81 mg PO DAILY 08/25/19 Atorvastatin Calcium 10 mg PO HS 08/25/19 Cetirizine HCl [Allergy Relief] 10 mg PO DAILY 08/25/19 Docusate Sodium [Docusate 100 mg] 100 mg PO BID 08/25/19 Levothyroxine [Synthroid -] 200 mcg PO DAILY 08/25/19 Lisinopril [Prinivil -] 40 mg PO DAILY 08/25/19 Nifedipine [Adalat cc] 60 mg PO DAILY 08/25/19 Sitagliptin Phosphate [Januvia] 50 mg PO DAILY 08/25/19 Review of Systems Unable to obtain ROS, reason: unable to obtain Physical Exam Vital Signs: Vital Signs Temperature 98.6 F 08/26/19 06:00 Pulse Rate 67 08/26/19 06:00 Respiratory Rate 24 H 08/26/19 08:35 Blood Pressure 110/62 08/26/19 06:00 O2 Sat by Pulse Oximetry (%) 100 12/15/19 20:00 Constitutional: Yes: Other Neck: Yes: Supple Cardiovascular: Yes: Regular Rate and Rhythm Respiratory: Yes: Intubated, Mechanically Ventilated Gastrointestinal: Yes: Normal Bowel Sounds, Soft Renal/: Yes: Mahoney Present Musculoskeletal: Yes: WNL Extremities: Yes: WNL Edema: LLE: 2+, RLE: 2+ Neurological: Yes: Other Labs: CBC, BMP 08/26/19 10:30 08/26/19 05:54 Imaging - Results Chest X-ray: Report Reviewed, Image Reviewed Cat Scan: Report Reviewed, Image Reviewed Assessment/Plan this patient coming to the hospital with probably myxedema coma,renal failure resp failure now intubated and also with ecstasy in the system patient currently intubated Problem List - Problems (1) Hypercapnic respiratory failure Code(s): J96.92 - RESPIRATORY FAILURE, UNSPECIFIED WITH HYPERCAPNIA (2) Metabolic acidosis Code(s): E87.2 - ACIDOSIS (3) AMS (altered mental status) Code(s): R41.82 - ALTERED MENTAL STATUS, UNSPECIFIED (4) Acute renal failure Code(s): N17.9 - ACUTE KIDNEY FAILURE, UNSPECIFIED (5) 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 - MYXEDEMA COMA Assessment/Plan plan i am going to continue empiric abx continue supportive care nutrition endocrine rest as per icu cc45 min
--- NOTE | 2019-08-26 11:52 | PN ---
Teaching Attending Note Name of Resident: Phil Ozuna ATTENDING PHYSICIAN STATEMENT I saw and evaluated the patient. I reviewed the resident's note and discussed the case with the resident. I agree with the resident's findings and plan as documented. SUBJECTIVE: Patient seen and examined in the ICU. Intubated and sedated. No pressors. Intake & Output 08/23/19 08/24/19 08/25/19 08/26/19 23:59 23:59 23:59 23:59 Intake Total 928.5 910 Output Total 705 300 Balance 223.5 610 Weight 255 lb 255 lb Last Vital Signs Temp Pulse Resp BP Pulse Ox 98.6 F 67 24 H 110/62 100 08/26/19 06:00 08/26/19 06:00 08/26/19 08:35 08/26/19 06:00 08/25/19 20:00 Active Medications Albuterol Sulfate (Ventolin 0.083% Nebulizer Soln -) 1 amp NEB Q6H PRN PRN Reason: SHORT OF BREATH/WHEEZING Albuterol/Ipratropium (Duoneb -) 1 amp NEB Q4H PRN PRN Reason: SHORTNESS OF BREATH Heparin Sodium (Porcine) (Heparin -) 5,000 unit SQ TID [facility] Last Admin: 08/26/19 05:03 Dose: 5,000 unit Hydrocortisone Sodium Succinate (Solu-Cortef -) 100 mg IVPUSH Q8H [facility] Last Admin: 08/26/19 06:01 Dose: 100 mg Famotidine/Sodium Chloride (Pepcid 20 Mg Premixed Ivpb -) 20 mg in 50 mls @ 100 mls/hr IVPB DAILY@0800 [facility] Last Admin: 08/26/19 08:34 Dose: 100 mls/hr Propofol (Diprivan -) 1,000,000 mcg in 100 mls @ 34.7 mls/hr IVPB TITR [facility]; Protocol Last Titration: 08/26/19 09:28 Dose: 40 mcg/kg/min, 27.76 mls/hr Fentanyl 500 mcg/ Dextrose 100 mls @ 20 mls/hr IVPB TITR [facility] Last Titration: 08/26/19 07:00 Dose: 50 mcg/hr, 10 mls/hr Piperacillin Sod/Tazobactam (Sod 2.25 gm/ Dextrose) 50 mls @ 100 mls/hr IVPB Q8H-IV [facility]; Protocol Last Admin: 08/26/19 09:27 Dose: 100 mls/hr Insulin Aspart (Novolog Vial Sliding Scale -) 1 vial SQ ACHS [facility]; Protocol Last Admin: 08/26/19 06:11 Dose: Not Given Levothyroxine Sodium (Synthroid Injection -) 100 mcg IVPUSH DAILY [facility] Midazolam HCl (Versed -) 2 mg IVPUSH ONCE ONE Stop: 08/26/19 11:42 Constitutional: Yes: Intubated and sedated Eyes: Yes: PERRL, Other (exopthalmos) Cardiovascular: Yes: S1, S2 Respiratory: Yes: Diminished, On BiPap, Poor Air Entry, Rales, Wheezes Gastrointestinal: Yes: Normal Bowel Sounds, Soft, Abdomen, Obese Edema: LLE: 3+ (warm to touch ), RLE: 3+ Peripheral Pulses WNL: Yes Integumentary: Yes: Tattoos Neurological: Yes: Sedated Labs: Laboratory Results - last 24 hr 08/25/19 08/25/19 08/25/19 11:00 11:00 11:00 WBC RBC Hgb Hct MCV MCH MCHC RDW Plt Count MPV Absolute Neuts (auto) Neutrophils % Neutrophils % (Manual) 84.0 H Band Neutrophils % 1.0 Lymphocytes % Lymphocytes % (Manual) 13.0 Monocytes % Monocytes % (Manual) 1 L Eosinophils % Eosinophils % (Manual) 0.0 Basophils % Basophils % (Manual) 1.0 Myelocytes % (Man) 0 Promyelocytes % (Man) 0 Blast Cells % (Manual) 0 Nucleated RBC % Metamyelocytes 0 Platelet Estimate Normal Anisocytosis 2+ Anticoagulation Therapy Puncture Site ABG pH ABG pCO2 at Pt Temp ABG pO2 at Pt Temp ABG HCO3 ABG O2 Sat (Measured) ABG O2 Content ABG Base Excess Sky Test Carboxyhemoglobin Methemoglobin O2 Delivery Device Oxygen Flow Rate Vent Mode Vent Rate Mechanical Rate PEEP Pressure Support Vent Sodium Potassium Chloride Carbon Dioxide Anion Gap BUN Creatinine Est GFR (CKD-EPI)AfAm Est GFR (CKD-EPI)NonAf POC Glucometer Random Glucose Lactic Acid Calcium Phosphorus Magnesium Total Bilirubin Direct Bilirubin AST ALT Alkaline Phosphatase Ammonia 24.90 Creatine Kinase 2402 H Creatine Kinase Index 1.0 CK-MB (CK-2) 24.6 H Troponin I < 0.02 B-Natriuretic Peptide Total Protein Albumin Beta-Hydroxybutyrate 1.1 TSH Free T4 Thyroxine (T4) 3.2 L Ur Random Creatinine U Random Total Protein Ur Random Sodium Ur Random Potassium Ur Random Chloride Stool Occult Blood Salicylates Opiates Screen Methadone Screen Acetaminophen Barbiturate Screen Phencyclidine Screen Ur Amphetamines Screen MDMA (Ecstasy) Screen Benzodiazepines Screen Cocaine Screen U Marijuana (THC) Screen Influenza A (Rapid) Influenza B (Rapid) Blood Type Antibody Screen Crossmatch 08/25/19 08/25/19 08/25/19 11:00 11:00 11:18 WBC RBC Hgb Hct MCV MCH MCHC RDW Plt Count MPV Absolute Neuts (auto) Neutrophils % Neutrophils % (Manual) Band Neutrophils % Lymphocytes % Lymphocytes % (Manual) Monocytes % Monocytes % (Manual) Eosinophils % Eosinophils % (Manual) Basophils % Basophils % (Manual) Myelocytes % (Man) Promyelocytes % (Man) Blast Cells % (Manual) Nucleated RBC % Metamyelocytes Platelet Estimate Anisocytosis Anticoagulation Therapy Puncture Site ABG pH ABG pCO2 at Pt Temp ABG pO2 at Pt Temp ABG HCO3 ABG O2 Sat (Measured) ABG O2 Content ABG Base Excess Sky Test Carboxyhemoglobin Methemoglobin O2 Delivery Device Oxygen Flow Rate Vent Mode Vent Rate Mechanical Rate PEEP Pressure Support Vent Sodium 139 Potassium 4.9 Chloride 111 H Carbon Dioxide 18 L Anion Gap 10 BUN 65.7 H Creatinine 7.7 H* Est GFR (CKD-EPI)AfAm 6.36 Est GFR (CKD-EPI)NonAf 5.49 POC Glucometer Random Glucose 249 H Lactic Acid 0.7 Calcium 6.8 L* Phosphorus 6.3 H Magnesium 1.6 L Total Bilirubin 0.5 Direct Bilirubin AST 110 H ALT 136 H Alkaline Phosphatase 959 H Ammonia Creatine Kinase Creatine Kinase Index CK-MB (CK-2) Troponin I B-Natriuretic Peptide 3649.4 H Total Protein 6.7 Albumin 2.5 L Beta-Hydroxybutyrate TSH 100.00 H Free T4 0.24 L Thyroxine (T4) Ur Random Creatinine U Random Total Protein Ur Random Sodium Ur Random Potassium Ur Random Chloride Stool Occult Blood Salicylates Opiates Screen Methadone Screen Acetaminophen Barbiturate Screen Phencyclidine Screen Ur Amphetamines Screen MDMA (Ecstasy) Screen Benzodiazepines Screen Cocaine Screen U Marijuana (THC) Screen Influenza A (Rapid) Influenza B (Rapid) Blood Type O POSITIVE Antibody Screen Negative Crossmatch See Detail 08/25/19 08/25/19 08/25/19 12:33 12:40 13:13 WBC RBC Hgb Hct MCV MCH MCHC RDW Plt Count MPV Absolute Neuts (auto) Neutrophils % Neutrophils % (Manual) Band Neutrophils % Lymphocytes % Lymphocytes % (Manual) Monocytes % Monocytes % (Manual) Eosinophils % Eosinophils % (Manual) Basophils % Basophils % (Manual) Myelocytes % (Man) Promyelocytes % (Man) Blast Cells % (Manual) Nucleated RBC % Metamyelocytes Platelet Estimate Anisocytosis Anticoagulation Therapy Puncture Site ABG pH ABG pCO2 at Pt Temp ABG pO2 at Pt Temp ABG HCO3 ABG O2 Sat (Measured) ABG O2 Content ABG Base Excess Sky Test Carboxyhemoglobin Methemoglobin O2 Delivery Device Oxygen Flow Rate Vent Mode Vent Rate Mechanical Rate PEEP Pressure Support Vent Sodium Potassium Chloride Carbon Dioxide Anion Gap BUN Creatinine Est GFR (CKD-EPI)AfAm Est GFR (CKD-EPI)NonAf POC Glucometer Random Glucose Lactic Acid Calcium Phosphorus Magnesium Total Bilirubin Direct Bilirubin AST ALT Alkaline Phosphatase Ammonia Creatine Kinase Creatine Kinase Index CK-MB (CK-2) Troponin I B-Natriuretic Peptide Total Protein Albumin Beta-Hydroxybutyrate TSH Free T4 Thyroxine (T4) Ur Random Creatinine U Random Total Protein Ur Random Sodium Ur Random Potassium Ur Random Chloride Stool Occult Blood Negative Salicylates < 1.7 L Opiates Screen Negative Methadone Screen Negative Acetaminophen 2.1 Barbiturate Screen Negative Phencyclidine Screen Negative Ur Amphetamines Screen Negative MDMA (Ecstasy) Screen Positive A* Benzodiazepines Screen Negative Cocaine Screen Negative U Marijuana (THC) Screen Negative Influenza A (Rapid) Influenza B (Rapid) Blood Type Antibody Screen Crossmatch 08/25/19 08/25/19 08/25/19 14:25 17:32 18:30 WBC RBC Hgb Hct MCV MCH MCHC RDW Plt Count MPV Absolute Neuts (auto) Neutrophils % Neutrophils % (Manual) Band Neutrophils % Lymphocytes % Lymphocytes % (Manual) Monocytes % Monocytes % (Manual) Eosinophils % Eosinophils % (Manual) Basophils % Basophils % (Manual) Myelocytes % (Man) Promyelocytes % (Man) Blast Cells % (Manual) Nucleated RBC % Metamyelocytes Platelet Estimate Anisocytosis Anticoagulation Therapy No Result Required. Puncture Site Right radial ABG pH 7.04 L* ABG pCO2 at Pt Temp 64.6 H ABG pO2 at Pt Temp 69.1 L ABG HCO3 16.7 L ABG O2 Sat (Measured) 88.5 L ABG O2 Content 9.5 ABG Base Excess -13.1 L Sky Test Positive Carboxyhemoglobin 0.6 Methemoglobin 1.2 O2 Delivery Device No Result Required. Oxygen Flow Rate No Vent Mode No Result Required. Vent Rate No Result Required. Mechanical Rate No Result Required. PEEP Pressure Support Vent No Result Required. Sodium Potassium Chloride Carbon Dioxide Anion Gap BUN Creatinine Est GFR (CKD-EPI)AfAm Est GFR (CKD-EPI)NonAf POC Glucometer 225 Random Glucose Lactic Acid Calcium Phosphorus Magnesium Total Bilirubin Direct Bilirubin AST ALT Alkaline Phosphatase Ammonia Creatine Kinase Creatine Kinase Index CK-MB (CK-2) Troponin I B-Natriuretic Peptide Total Protein Albumin Beta-Hydroxybutyrate TSH Free T4 Thyroxine (T4) Ur Random Creatinine 167.0 H U Random Total Protein 1235.7 H Ur Random Sodium 25 L Ur Random Potassium 38.0 Ur Random Chloride 22 L Stool Occult Blood Salicylates Opiates Screen Methadone Screen Acetaminophen Barbiturate Screen Phencyclidine Screen Ur Amphetamines Screen MDMA (Ecstasy) Screen Benzodiazepines Screen Cocaine Screen U Marijuana (THC) Screen Influenza A (Rapid) Influenza B (Rapid) Blood Type Antibody Screen Crossmatch 08/25/19 08/25/19 08/25/19 18:30 18:32 18:45 WBC RBC Hgb Hct MCV MCH MCHC RDW Plt Count MPV Absolute Neuts (auto) Neutrophils % Neutrophils % (Manual) Band Neutrophils % Lymphocytes % Lymphocytes % (Manual) Monocytes % Monocytes % (Manual) Eosinophils % Eosinophils % (Manual) Basophils % Basophils % (Manual) Myelocytes % (Man) Promyelocytes % (Man) Blast Cells % (Manual) Nucleated RBC % Metamyelocytes Platelet Estimate Anisocytosis Anticoagulation Therapy No Result Required. Puncture Site Right radial ABG pH 7.31 L ABG pCO2 at Pt Temp 46.1 H ABG pO2 at Pt Temp 309 H ABG HCO3 22.3 ABG O2 Sat (Measured) 99.2 H ABG O2 Content 9.5 ABG Base Excess -3.1 L Sky Test Positive Carboxyhemoglobin Methemoglobin O2 Delivery Device Espirit Oxygen Flow Rate 100% Vent Mode A/c Vent Rate 24 Mechanical Rate Espirit PEEP 10.0 Pressure Support Vent 400 Sodium Potassium Chloride Carbon Dioxide Anion Gap BUN Creatinine Est GFR (CKD-EPI)AfAm Est GFR (CKD-EPI)NonAf POC Glucometer Random Glucose Lactic Acid Calcium Phosphorus Magnesium Total Bilirubin Direct Bilirubin AST ALT Alkaline Phosphatase Ammonia Creatine Kinase Creatine Kinase Index CK-MB (CK-2) Troponin I B-Natriuretic Peptide Total Protein Albumin Beta-Hydroxybutyrate TSH Free T4 Thyroxine (T4) Ur Random Creatinine U Random Total Protein Ur Random Sodium Ur Random Potassium Ur Random Chloride Stool Occult Blood Salicylates Opiates Screen Methadone Screen Acetaminophen Barbiturate Screen Phencyclidine Screen Ur Amphetamines Screen MDMA (Ecstasy) Screen Benzodiazepines Screen Cocaine Screen U Marijuana (THC) Screen Influenza A (Rapid) Negative Influenza B (Rapid) Negative Blood Type O POSITIVE Antibody Screen Crossmatch 08/25/19 08/25/19 08/26/19 20:04 21:06 00:07 WBC RBC Hgb Hct MCV MCH MCHC RDW Plt Count MPV Absolute Neuts (auto) Neutrophils % Neutrophils % (Manual) Band Neutrophils % Lymphocytes % Lymphocytes % (Manual) Monocytes % Monocytes % (Manual) Eosinophils % Eosinophils % (Manual) Basophils % Basophils % (Manual) Myelocytes % (Man) Promyelocytes % (Man) Blast Cells % (Manual) Nucleated RBC % Metamyelocytes Platelet Estimate Anisocytosis Anticoagulation Therapy Puncture Site ABG pH ABG pCO2 at Pt Temp ABG pO2 at Pt Temp ABG HCO3 ABG O2 Sat (Measured) ABG O2 Content ABG Base Excess Sky Test Carboxyhemoglobin Methemoglobin O2 Delivery Device Oxygen Flow Rate Vent Mode Vent Rate Mechanical Rate PEEP Pressure Support Vent Sodium Potassium Chloride Carbon Dioxide Anion Gap BUN Creatinine Est GFR (CKD-EPI)AfAm Est GFR (CKD-EPI)NonAf POC Glucometer 238 238 204 Random Glucose Lactic Acid Calcium Phosphorus Magnesium Total Bilirubin Direct Bilirubin AST ALT Alkaline Phosphatase Ammonia Creatine Kinase Creatine Kinase Index CK-MB (CK-2) Troponin I B-Natriuretic Peptide Total Protein Albumin Beta-Hydroxybutyrate TSH Free T4 Thyroxine (T4) Ur Random Creatinine U Random Total Protein Ur Random Sodium Ur Random Potassium Ur Random Chloride Stool Occult Blood Salicylates Opiates Screen Methadone Screen Acetaminophen Barbiturate Screen Phencyclidine Screen Ur Amphetamines Screen MDMA (Ecstasy) Screen Benzodiazepines Screen Cocaine Screen U Marijuana (THC) Screen Influenza A (Rapid) Influenza B (Rapid) Blood Type Antibody Screen Crossmatch 08/26/19 08/26/19 08/26/19 05:20 05:54 05:54 WBC 6.8 RBC 2.24 L Hgb 6.7 L* Hct 20.0 L D MCV 89.2 MCH 29.9 MCHC 33.5 RDW 19.4 H Plt Count 228 MPV 8.6 Absolute Neuts (auto) 5.6 Neutrophils % 82.9 H Neutrophils % (Manual) Band Neutrophils % Lymphocytes % 15.3 Lymphocytes % (Manual) Monocytes % 1.7 L Monocytes % (Manual) Eosinophils % 0.0 Eosinophils % (Manual) Basophils % 0.1 Basophils % (Manual) Myelocytes % (Man) Promyelocytes % (Man) Blast Cells % (Manual) Nucleated RBC % 0 Metamyelocytes Platelet Estimate Anisocytosis Anticoagulation Therapy Puncture Site ABG pH ABG pCO2 at Pt Temp ABG pO2 at Pt Temp ABG HCO3 ABG O2 Sat (Measured) ABG O2 Content ABG Base Excess Sky Test Carboxyhemoglobin Methemoglobin O2 Delivery Device Oxygen Flow Rate Vent Mode Vent Rate Mechanical Rate PEEP Pressure Support Vent Sodium 143 Potassium 4.7 Chloride 112 H Carbon Dioxide 19 L Anion Gap 12 BUN 68.7 H Creatinine 7.9 H* Est GFR (CKD-EPI)AfAm 6.16 Est GFR (CKD-EPI)NonAf 5.32 POC Glucometer 186 Random Glucose 190 H Lactic Acid Calcium 6.6 L* Phosphorus 6.8 H Magnesium 1.7 L Total Bilirubin 0.4 Direct Bilirubin 0.2 AST 59 H ALT 95 H Alkaline Phosphatase 766 H Ammonia Creatine Kinase 1133 H Creatine Kinase Index 0.8 CK-MB (CK-2) 9.5 H Troponin I < 0.02 B-Natriuretic Peptide Total Protein 5.6 L Albumin 2.0 L Beta-Hydroxybutyrate TSH Free T4 Thyroxine (T4) Ur Random Creatinine U Random Total Protein Ur Random Sodium Ur Random Potassium Ur Random Chloride Stool Occult Blood Salicylates Opiates Screen Methadone Screen Acetaminophen Barbiturate Screen Phencyclidine Screen Ur Amphetamines Screen MDMA (Ecstasy) Screen Benzodiazepines Screen Cocaine Screen U Marijuana (THC) Screen Influenza A (Rapid) Influenza B (Rapid) Blood Type Antibody Screen Crossmatch 08/26/19 08/26/19 06:55 10:30 WBC 6.3 RBC 1.94 L Hgb 5.8 L* Hct 17.4 L MCV 90.0 MCH 29.7 MCHC 33.0 RDW 19.1 H Plt Count 202 MPV 8.0 Absolute Neuts (auto) 4.9 Neutrophils % 78.0 Neutrophils % (Manual) Band Neutrophils % Lymphocytes % 19.0 D Lymphocytes % (Manual) Monocytes % 2.9 L Monocytes % (Manual) Eosinophils % 0.0 Eosinophils % (Manual) Basophils % 0.1 Basophils % (Manual) Myelocytes % (Man) Promyelocytes % (Man) Blast Cells % (Manual) Nucleated RBC % 0 Metamyelocytes Platelet Estimate Anisocytosis Anticoagulation Therapy No Result Required. Puncture Site Right radial ABG pH 7.32 L ABG pCO2 at Pt Temp 33.2 L ABG pO2 at Pt Temp 149 H ABG HCO3 16.8 L ABG O2 Sat (Measured) 98.5 H ABG O2 Content 9.2 ABG Base Excess -8.0 L Sky Test Positive Carboxyhemoglobin Methemoglobin O2 Delivery Device Mech vent Oxygen Flow Rate 50% Vent Mode A/c Vent Rate 24 Mechanical Rate Yes PEEP 10.0 Pressure Support Vent 400 Sodium Potassium Chloride Carbon Dioxide Anion Gap BUN Creatinine Est GFR (CKD-EPI)AfAm Est GFR (CKD-EPI)NonAf POC Glucometer Random Glucose Lactic Acid Calcium Phosphorus Magnesium Total Bilirubin Direct Bilirubin AST ALT Alkaline Phosphatase Ammonia Creatine Kinase Creatine Kinase Index CK-MB (CK-2) Troponin I B-Natriuretic Peptide Total Protein Albumin Beta-Hydroxybutyrate TSH Free T4 Thyroxine (T4) Ur Random Creatinine U Random Total Protein Ur Random Sodium Ur Random Potassium Ur Random Chloride Stool Occult Blood Salicylates Opiates Screen Methadone Screen Acetaminophen Barbiturate Screen Phencyclidine Screen Ur Amphetamines Screen MDMA (Ecstasy) Screen Benzodiazepines Screen Cocaine Screen U Marijuana (THC) Screen Influenza A (Rapid) Influenza B (Rapid) Blood Type Antibody Screen Crossmatch Problem List - Problems (1) Hypercapnic respiratory failure Code(s): J96.92 - RESPIRATORY FAILURE, UNSPECIFIED WITH HYPERCAPNIA (2) Metabolic acidosis Code(s): E87.2 - ACIDOSIS (3) AMS (altered mental status) Code(s): R41.82 - ALTERED MENTAL STATUS, UNSPECIFIED (4) Acute renal failure Code(s): N17.9 - ACUTE KIDNEY FAILURE, UNSPECIFIED (5) 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
--- NOTE | 2019-08-26 11:53 | PN ---
Physical Exam: SUBJECTIVE: Patient seen and examined in the morning. No acute events overnight. No events on telemetry monitoring. Patient is intubated and sedated, unable to communicate with examiner. OBJECTIVE: Vital Signs Period Temp Pulse Resp BP Sys/Amos Pulse Ox Last 24 Hr 93.7 F-98.6 F 64-84 12-26 96-185/50-168 100-100 GENERAL: The patient is intubated and sedated. HEAD: Atraumatic. EYES: PERRLA, Scleral edema, exophthalmos ENT: Patient is biting down on tongue causing, dry blood present. Moist mucous membranes. NECK: Trachea midline, full range of motion, supple. LUNGS:Ventilator sounds, clear. HEART: Regular rate and rhythm, S1, S2 without murmur, rub or gallop. ABDOMEN: Soft, nontender, nondistended, normoactive bowel sounds EXTREMITIES: 2+ pulses, warm, well-perfused, 2+ pitting edema NEUROLOGICAL:Unable to assess. SKIN: Warm, dry, no erythema. Laboratory Results - last 24 hr 08/25/19 08/25/19 08/25/19 11:00 11:00 11:00 WBC RBC Hgb Hct MCV MCH MCHC RDW Plt Count MPV Absolute Neuts (auto) Neutrophils % Neutrophils % (Manual) 84.0 H Band Neutrophils % 1.0 Lymphocytes % Lymphocytes % (Manual) 13.0 Monocytes % Monocytes % (Manual) 1 L Eosinophils % Eosinophils % (Manual) 0.0 Basophils % Basophils % (Manual) 1.0 Myelocytes % (Man) 0 Promyelocytes % (Man) 0 Blast Cells % (Manual) 0 Nucleated RBC % Metamyelocytes 0 Platelet Estimate Normal Anisocytosis 2+ Anticoagulation Therapy Puncture Site ABG pH ABG pCO2 at Pt Temp ABG pO2 at Pt Temp ABG HCO3 ABG O2 Sat (Measured) ABG O2 Content ABG Base Excess Sky Test Carboxyhemoglobin Methemoglobin O2 Delivery Device Oxygen Flow Rate Vent Mode Vent Rate Mechanical Rate PEEP Pressure Support Vent Sodium 139 Potassium 4.9 Chloride 111 H Carbon Dioxide 18 L Anion Gap 10 BUN 65.7 H Creatinine 7.7 H* Est GFR (CKD-EPI)AfAm 6.36 Est GFR (CKD-EPI)NonAf 5.49 POC Glucometer Random Glucose 249 H Lactic Acid Calcium 6.8 L* Phosphorus 6.3 H Magnesium 1.6 L Total Bilirubin 0.5 Direct Bilirubin AST 110 H ALT 136 H Alkaline Phosphatase 959 H Creatine Kinase 2402 H Creatine Kinase Index 1.0 CK-MB (CK-2) 24.6 H Troponin I < 0.02 B-Natriuretic Peptide 3649.4 H Total Protein 6.7 Albumin 2.5 L Beta-Hydroxybutyrate 1.1 TSH 100.00 H Free T4 0.24 L Thyroxine (T4) 3.2 L Ur Random Creatinine U Random Total Protein Ur Random Sodium Ur Random Potassium Ur Random Chloride Stool Occult Blood Salicylates Opiates Screen Methadone Screen Acetaminophen Barbiturate Screen Phencyclidine Screen Ur Amphetamines Screen MDMA (Ecstasy) Screen Benzodiazepines Screen Cocaine Screen U Marijuana (THC) Screen Influenza A (Rapid) Influenza B (Rapid) Blood Type Antibody Screen Crossmatch 08/25/19 08/25/19 08/25/19 11:00 11:18 12:33 WBC RBC Hgb Hct MCV MCH MCHC RDW Plt Count MPV Absolute Neuts (auto) Neutrophils % Neutrophils % (Manual) Band Neutrophils % Lymphocytes % Lymphocytes % (Manual) Monocytes % Monocytes % (Manual) Eosinophils % Eosinophils % (Manual) Basophils % Basophils % (Manual) Myelocytes % (Man) Promyelocytes % (Man) Blast Cells % (Manual) Nucleated RBC % Metamyelocytes Platelet Estimate Anisocytosis Anticoagulation Therapy Puncture Site ABG pH ABG pCO2 at Pt Temp ABG pO2 at Pt Temp ABG HCO3 ABG O2 Sat (Measured) ABG O2 Content ABG Base Excess Sky Test Carboxyhemoglobin Methemoglobin O2 Delivery Device Oxygen Flow Rate Vent Mode Vent Rate Mechanical Rate PEEP Pressure Support Vent Sodium Potassium Chloride Carbon Dioxide Anion Gap BUN Creatinine Est GFR (CKD-EPI)AfAm Est GFR (CKD-EPI)NonAf POC Glucometer Random Glucose Lactic Acid 0.7 Calcium Phosphorus Magnesium Total Bilirubin Direct Bilirubin AST ALT Alkaline Phosphatase Creatine Kinase Creatine Kinase Index CK-MB (CK-2) Troponin I B-Natriuretic Peptide Total Protein Albumin Beta-Hydroxybutyrate TSH Free T4 Thyroxine (T4) Ur Random Creatinine U Random Total Protein Ur Random Sodium Ur Random Potassium Ur Random Chloride Stool Occult Blood Salicylates < 1.7 L Opiates Screen Methadone Screen Acetaminophen 2.1 Barbiturate Screen Phencyclidine Screen Ur Amphetamines Screen MDMA (Ecstasy) Screen Benzodiazepines Screen Cocaine Screen U Marijuana (THC) Screen Influenza A (Rapid) Influenza B (Rapid) Blood Type O POSITIVE Antibody Screen Negative Crossmatch See Detail 08/25/19 08/25/19 08/25/19 12:40 13:13 14:25 WBC RBC Hgb Hct MCV MCH MCHC RDW Plt Count MPV Absolute Neuts (auto) Neutrophils % Neutrophils % (Manual) Band Neutrophils % Lymphocytes % Lymphocytes % (Manual) Monocytes % Monocytes % (Manual) Eosinophils % Eosinophils % (Manual) Basophils % Basophils % (Manual) Myelocytes % (Man) Promyelocytes % (Man) Blast Cells % (Manual) Nucleated RBC % Metamyelocytes Platelet Estimate Anisocytosis Anticoagulation Therapy No Result Required. Puncture Site Right radial ABG pH 7.04 L* ABG pCO2 at Pt Temp 64.6 H ABG pO2 at Pt Temp 69.1 L ABG HCO3 16.7 L ABG O2 Sat (Measured) 88.5 L ABG O2 Content 9.5 ABG Base Excess -13.1 L Sky Test Positive Carboxyhemoglobin 0.6 Methemoglobin 1.2 O2 Delivery Device No Result Required. Oxygen Flow Rate No Vent Mode No Result Required. Vent Rate No Result Required. Mechanical Rate No Result Required. PEEP Pressure Support Vent No Result Required. Sodium Potassium Chloride Carbon Dioxide Anion Gap BUN Creatinine Est GFR (CKD-EPI)AfAm Est GFR (CKD-EPI)NonAf POC Glucometer Random Glucose Lactic Acid Calcium Phosphorus Magnesium Total Bilirubin Direct Bilirubin AST ALT Alkaline Phosphatase Creatine Kinase Creatine Kinase Index CK-MB (CK-2) Troponin I B-Natriuretic Peptide Total Protein Albumin Beta-Hydroxybutyrate TSH Free T4 Thyroxine (T4) Ur Random Creatinine U Random Total Protein Ur Random Sodium Ur Random Potassium Ur Random Chloride Stool Occult Blood Negative Salicylates Opiates Screen Negative Methadone Screen Negative Acetaminophen Barbiturate Screen Negative Phencyclidine Screen Negative Ur Amphetamines Screen Negative MDMA (Ecstasy) Screen Positive A* Benzodiazepines Screen Negative Cocaine Screen Negative U Marijuana (THC) Screen Negative Influenza A (Rapid) Influenza B (Rapid) Blood Type Antibody Screen Crossmatch 08/25/19 08/25/19 08/25/19 17:32 18:30 18:30 WBC RBC Hgb Hct MCV MCH MCHC RDW Plt Count MPV Absolute Neuts (auto) Neutrophils % Neutrophils % (Manual) Band Neutrophils % Lymphocytes % Lymphocytes % (Manual) Monocytes % Monocytes % (Manual) Eosinophils % Eosinophils % (Manual) Basophils % Basophils % (Manual) Myelocytes % (Man) Promyelocytes % (Man) Blast Cells % (Manual) Nucleated RBC % Metamyelocytes Platelet Estimate Anisocytosis Anticoagulation Therapy Puncture Site ABG pH ABG pCO2 at Pt Temp ABG pO2 at Pt Temp ABG HCO3 ABG O2 Sat (Measured) ABG O2 Content ABG Base Excess Sky Test Carboxyhemoglobin Methemoglobin O2 Delivery Device Oxygen Flow Rate Vent Mode Vent Rate Mechanical Rate PEEP Pressure Support Vent Sodium Potassium Chloride Carbon Dioxide Anion Gap BUN Creatinine Est GFR (CKD-EPI)AfAm Est GFR (CKD-EPI)NonAf POC Glucometer 225 Random Glucose Lactic Acid Calcium Phosphorus Magnesium Total Bilirubin Direct Bilirubin AST ALT Alkaline Phosphatase Creatine Kinase Creatine Kinase Index CK-MB (CK-2) Troponin I B-Natriuretic Peptide Total Protein Albumin Beta-Hydroxybutyrate TSH Free T4 Thyroxine (T4) Ur Random Creatinine 167.0 H U Random Total Protein 1235.7 H Ur Random Sodium 25 L Ur Random Potassium 38.0 Ur Random Chloride 22 L Stool Occult Blood Salicylates Opiates Screen Methadone Screen Acetaminophen Barbiturate Screen Phencyclidine Screen Ur Amphetamines Screen MDMA (Ecstasy) Screen Benzodiazepines Screen Cocaine Screen U Marijuana (THC) Screen Influenza A (Rapid) Negative Influenza B (Rapid) Negative Blood Type Antibody Screen Crossmatch 08/25/19 08/25/19 08/25/19 18:32 18:45 20:04 WBC RBC Hgb Hct MCV MCH MCHC RDW Plt Count MPV Absolute Neuts (auto) Neutrophils % Neutrophils % (Manual) Band Neutrophils % Lymphocytes % Lymphocytes % (Manual) Monocytes % Monocytes % (Manual) Eosinophils % Eosinophils % (Manual) Basophils % Basophils % (Manual) Myelocytes % (Man) Promyelocytes % (Man) Blast Cells % (Manual) Nucleated RBC % Metamyelocytes Platelet Estimate Anisocytosis Anticoagulation Therapy No Result Required. Puncture Site Right radial ABG pH 7.31 L ABG pCO2 at Pt Temp 46.1 H ABG pO2 at Pt Temp 309 H ABG HCO3 22.3 ABG O2 Sat (Measured) 99.2 H ABG O2 Content 9.5 ABG Base Excess -3.1 L Sky Test Positive Carboxyhemoglobin Methemoglobin O2 Delivery Device Espirit Oxygen Flow Rate 100% Vent Mode A/c Vent Rate 24 Mechanical Rate Espirit PEEP 10.0 Pressure Support Vent 400 Sodium Potassium Chloride Carbon Dioxide Anion Gap BUN Creatinine Est GFR (CKD-EPI)AfAm Est GFR (CKD-EPI)NonAf POC Glucometer 238 Random Glucose Lactic Acid Calcium Phosphorus Magnesium Total Bilirubin Direct Bilirubin AST ALT Alkaline Phosphatase Creatine Kinase Creatine Kinase Index CK-MB (CK-2) Troponin I B-Natriuretic Peptide Total Protein Albumin Beta-Hydroxybutyrate TSH Free T4 Thyroxine (T4) Ur Random Creatinine U Random Total Protein Ur Random Sodium Ur Random Potassium Ur Random Chloride Stool Occult Blood Salicylates Opiates Screen Methadone Screen Acetaminophen Barbiturate Screen Phencyclidine Screen Ur Amphetamines Screen MDMA (Ecstasy) Screen Benzodiazepines Screen Cocaine Screen U Marijuana (THC) Screen Influenza A (Rapid) Influenza B (Rapid) Blood Type O POSITIVE Antibody Screen Crossmatch 08/25/19 08/26/19 08/26/19 21:06 00:07 05:20 WBC RBC Hgb Hct MCV MCH MCHC RDW Plt Count MPV Absolute Neuts (auto) Neutrophils % Neutrophils % (Manual) Band Neutrophils % Lymphocytes % Lymphocytes % (Manual) Monocytes % Monocytes % (Manual) Eosinophils % Eosinophils % (Manual) Basophils % Basophils % (Manual) Myelocytes % (Man) Promyelocytes % (Man) Blast Cells % (Manual) Nucleated RBC % Metamyelocytes Platelet Estimate Anisocytosis Anticoagulation Therapy Puncture Site ABG pH ABG pCO2 at Pt Temp ABG pO2 at Pt Temp ABG HCO3 ABG O2 Sat (Measured) ABG O2 Content ABG Base Excess Sky Test Carboxyhemoglobin Methemoglobin O2 Delivery Device Oxygen Flow Rate Vent Mode Vent Rate Mechanical Rate PEEP Pressure Support Vent Sodium Potassium Chloride Carbon Dioxide Anion Gap BUN Creatinine Est GFR (CKD-EPI)AfAm Est GFR (CKD-EPI)NonAf POC Glucometer 238 204 186 Random Glucose Lactic Acid Calcium Phosphorus Magnesium Total Bilirubin Direct Bilirubin AST ALT Alkaline Phosphatase Creatine Kinase Creatine Kinase Index CK-MB (CK-2) Troponin I B-Natriuretic Peptide Total Protein Albumin Beta-Hydroxybutyrate TSH Free T4 Thyroxine (T4) Ur Random Creatinine U Random Total Protein Ur Random Sodium Ur Random Potassium Ur Random Chloride Stool Occult Blood Salicylates Opiates Screen Methadone Screen Acetaminophen Barbiturate Screen Phencyclidine Screen Ur Amphetamines Screen MDMA (Ecstasy) Screen Benzodiazepines Screen Cocaine Screen U Marijuana (THC) Screen Influenza A (Rapid) Influenza B (Rapid) Blood Type Antibody Screen Crossmatch 08/26/19 08/26/19 08/26/19 05:54 05:54 06:55 WBC 6.8 RBC 2.24 L Hgb 6.7 L* Hct 20.0 L D MCV 89.2 MCH 29.9 MCHC 33.5 RDW 19.4 H Plt Count 228 MPV 8.6 Absolute Neuts (auto) 5.6 Neutrophils % 82.9 H Neutrophils % (Manual) Band Neutrophils % Lymphocytes % 15.3 Lymphocytes % (Manual) Monocytes % 1.7 L Monocytes % (Manual) Eosinophils % 0.0 Eosinophils % (Manual) Basophils % 0.1 Basophils % (Manual) Myelocytes % (Man) Promyelocytes % (Man) Blast Cells % (Manual) Nucleated RBC % 0 Metamyelocytes Platelet Estimate Anisocytosis Anticoagulation Therapy No Result Required. Puncture Site Right radial ABG pH 7.32 L ABG pCO2 at Pt Temp 33.2 L ABG pO2 at Pt Temp 149 H ABG HCO3 16.8 L ABG O2 Sat (Measured) 98.5 H ABG O2 Content 9.2 ABG Base Excess -8.0 L Sky Test Positive Carboxyhemoglobin Methemoglobin O2 Delivery Device Mec vent Oxygen Flow Rate 50% Vent Mode A/c Vent Rate 24 Mechanical Rate Yes PEEP 10.0 Pressure Support Vent 400 Sodium 143 Potassium 4.7 Chloride 112 H Carbon Dioxide 19 L Anion Gap 12 BUN 68.7 H Creatinine 7.9 H* Est GFR (CKD-EPI)AfAm 6.16 Est GFR (CKD-EPI)NonAf 5.32 POC Glucometer Random Glucose 190 H Lactic Acid Calcium 6.6 L* Phosphorus 6.8 H Magnesium 1.7 L Total Bilirubin 0.4 Direct Bilirubin 0.2 AST 59 H ALT 95 H Alkaline Phosphatase 766 H Creatine Kinase 1133 H Creatine Kinase Index 0.8 CK-MB (CK-2) 9.5 H Troponin I < 0.02 B-Natriuretic Peptide Total Protein 5.6 L Albumin 2.0 L Beta-Hydroxybutyrate TSH Free T4 Thyroxine (T4) Ur Random Creatinine U Random Total Protein Ur Random Sodium Ur Random Potassium Ur Random Chloride Stool Occult Blood Salicylates Opiates Screen Methadone Screen Acetaminophen Barbiturate Screen Phencyclidine Screen Ur Amphetamines Screen MDMA (Ecstasy) Screen Benzodiazepines Screen Cocaine Screen U Marijuana (THC) Screen Influenza A (Rapid) Influenza B (Rapid) Blood Type Antibody Screen Crossmatch 08/26/19 10:30 WBC 6.3 RBC 1.94 L Hgb 5.8 L* Hct 17.4 L MCV 90.0 MCH 29.7 MCHC 33.0 RDW 19.1 H Plt Count 202 MPV 8.0 Absolute Neuts (auto) 4.9 Neutrophils % 78.0 Neutrophils % (Manual) Band Neutrophils % Lymphocytes % 19.0 D Lymphocytes % (Manual) Monocytes % 2.9 L Monocytes % (Manual) Eosinophils % 0.0 Eosinophils % (Manual) Basophils % 0.1 Basophils % (Manual) Myelocytes % (Man) Promyelocytes % (Man) Blast Cells % (Manual) Nucleated RBC % 0 Metamyelocytes Platelet Estimate Anisocytosis Anticoagulation Therapy Puncture Site ABG pH ABG pCO2 at Pt Temp ABG pO2 at Pt Temp ABG HCO3 ABG O2 Sat (Measured) ABG O2 Content ABG Base Excess Sky Test Carboxyhemoglobin Methemoglobin O2 Delivery Device Oxygen Flow Rate Vent Mode Vent Rate Mechanical Rate PEEP Pressure Support Vent Sodium Potassium Chloride Carbon Dioxide Anion Gap BUN Creatinine Est GFR (CKD-EPI)AfAm Est GFR (CKD-EPI)NonAf POC Glucometer Random Glucose Lactic Acid Calcium Phosphorus Magnesium Total Bilirubin Direct Bilirubin AST ALT Alkaline Phosphatase Creatine Kinase Creatine Kinase Index CK-MB (CK-2) Troponin I B-Natriuretic Peptide Total Protein Albumin Beta-Hydroxybutyrate TSH Free T4 Thyroxine (T4) Ur Random Creatinine U Random Total Protein Ur Random Sodium Ur Random Potassium Ur Random Chloride Stool Occult Blood Salicylates Opiates Screen Methadone Screen Acetaminophen Barbiturate Screen Phencyclidine Screen Ur Amphetamines Screen MDMA (Ecstasy) Screen Benzodiazepines Screen Cocaine Screen U Marijuana (THC) Screen Influenza A (Rapid) Influenza B (Rapid) Blood Type Antibody Screen Crossmatch Active Medications Generic Name Dose Route Start Last Admin Trade Name Freq PRN Reason Stop Dose Admin Albuterol Sulfate 1 amp 08/25/19 14:57 Ventolin 0.083% Nebulizer Soln - NEB Q6H PRN SHORT OF BREATH/WHEEZING Albuterol/Ipratropium 1 amp 08/25/19 14:57 Duoneb - NEB Q4H PRN SHORTNESS OF BREATH Heparin Sodium (Porcine) 5,000 unit 08/25/19 22:00 08/26/19 05:03 Heparin - SQ 5,000 unit TID ZOE Administration Hydrocortisone Sodium Succinate 100 mg 08/25/19 15:00 08/26/19 06:01 Solu-Cortef - IVPUSH 100 mg Q8H ZOE Administration Famotidine/Sodium Chloride 20 mg in 50 mls @ 100 mls/hr 08/26/19 08:00 08:34 Pepcid 20 Mg Premixed Ivpb - IVPB 100 mls/hr DAILY@0800 ZOE Administration Propofol 1,000,000 mcg in 100 mls @ 34.7 mls/hr 08/25/19 18:45 08/26/19 09:28 Diprivan - IVPB 40 mcg/kg/min TITR ZOE 27.76 mls/hr Titration Protocol 50 MCG/KG/MIN Fentanyl 500 mcg/ Dextrose 100 mls @ 20 mls/hr 08/25/19 18:45 08/26/19 07:00 IVPB 50 mcg/hr TITR ZOE 10 mls/hr Titration 100 MCG/HR Piperacillin Sod/Tazobactam 50 mls @ 100 mls/hr 08/26/19 02:00 08/26/19 09:27 Sod 2.25 gm/ Dextrose IVPB 100 mls/hr Q8H-IV ZOE Administration Protocol Insulin Aspart 1 vial 08/26/19 07:00 08/26/19 06:11 Novolog Vial Sliding Scale - SQ Not Given ACHS ZOE Protocol Levothyroxine Sodium 100 mcg 08/26/19 10:00 Synthroid Injection - IVPUSH DAILY ZOE Midazolam HCl 2 mg 08/26/19 11:41 Versed - IVPUSH 08/26/19 11:42 ONCE ONE ASSESSMENT/PLAN: 54 F with PMH of Thyroid cancer s/p thyroidectomy, IDDM, COPD, unspecified mental health disorders, anemia, HTN, HLD who presented with AMS likely due to myxedema coma. Patient presents with renal failure and combined metabolic and hypercapnic respiratory acidosis requiring NIPPV. Pulmonary -Patient is intubated. Ventilator on volume control -CXR is poor penetration. ET tube in place. No improvement from yesterday. -Echo shows pleural effusions present -Did not attempt wean today, will continue monitoring mental status -ABG is improving, pH of 7.32 today, CO2 of 33.2 -Hx of COPD, will be getting Hyrdocortisone Sodium 100 mg IV Q8H -Duonebs Q4H PRN -Albuterol Nebulizer Q6H PRN Renal -BUN/Cr of 68.7/7.9 -Nephrology consulted, appreciate recs. -Renal U/S negative -Mahoney catheter in -705 mL out -Weight has not changed 115.666 -Lasix 80 mg IV -HD tomorrow? no need today as per Dr. Pena -Urine lytes Endocrine -Myxedema coma (TSH 100, Free T4 0.24 on admission) -Hx of hypothyroidism s/p thyroidectomy -Hypothermic on presentation, afebrile now -Hx of IDDM -Hydrocortisone 100 mg Q8H IV for possible adrenal insufficiency -Sliding scale insulin -Endocrine consulted, appreciate recs -Levothyroxine 100 mcg IV Heme/Onc -Patient has hx of anemia -Hgb dropped to 5.7 today -Transfusing 2 units PRBC, will repeat CBC between transfusions -FOBT ID -ID consulted, appreciate recs -Continuing empiric Zoysn Q8H -Blood culture pending -Urine culture pending Neuro/Psych -Head CT showed mild ventriculomegaly -Constant monitoring -Utox showed MDMA+, likely false positive from psych medications. Cardiac -Echo shows small pericardial effusion (less than 1 cm) -EF of 65-70% -Pleural effusions present -Trop negative x3 -BP Stable Dispo: Continue monitoring in ICU DVT: SCD F: No IV Fluids at the moment E: Monitor CMP N: NPO Visit type - Emergency Visit Emergency Visit: Yes ED Registration Date: 08/25/19 Care time: The patient presented to the Emergency Department on the above date and was hospitalized for further evaluation of their emergent condition. - New Patient This patient is new to me today: Yes Date on this admission: 08/26/19 - Critical Care Critical Care patient: Yes Total Critical Care Time (in minutes): 45 Critical Care Statement: The care of this patient involved high complexity decision making to prevent further life threatening deterioration of the patient 's condition and/or to evaluate & treat vital organ system(s) failure or risk of failure. ATTENDING PHYSICIAN STATEMENT I saw and evaluated the patient. I reviewed the resident's note and discussed the case with the resident. I agree with the resident's findings and plan as documented. SUBJECTIVE: OBJECTIVE: ASSESSMENT AND PLAN:
[2019-08-26] MEDS: LEVOTHYROXINE SODIUM 100 MCG VIAL IVPUSH SCH (13:17)
--- NOTE | 2019-08-26 13:56 | PN ---
Progress Note, Physician History of Present Illness: Pt seen and examined at bedside. She remains in the ICU intubated. - Current Medication List Current Medications: Active Medications Albuterol Sulfate (Ventolin 0.083% Nebulizer Soln -) 1 amp NEB Q6H PRN PRN Reason: SHORT OF BREATH/WHEEZING Albuterol/Ipratropium (Duoneb -) 1 amp NEB Q4H PRN PRN Reason: SHORTNESS OF BREATH Heparin Sodium (Porcine) (Heparin -) 5,000 unit SQ TID ZOE Last Admin: 08/26/19 05:03 Dose: 5,000 unit Hydrocortisone Sodium Succinate (Solu-Cortef -) 100 mg IVPUSH Q8H ZOE Last Admin: 08/26/19 06:01 Dose: 100 mg Famotidine/Sodium Chloride (Pepcid 20 Mg Premixed Ivpb -) 20 mg in 50 mls @ 100 mls/hr IVPB DAILY@0800 [facility] Last Admin: 08/26/19 08:34 Dose: 100 mls/hr Propofol (Diprivan -) 1,000,000 mcg in 100 mls @ 34.7 mls/hr IVPB TITR ZOE; Protocol Last Titration: 08/26/19 13:24 Dose: 30 mcg/kg/min, 20.82 mls/hr Fentanyl 500 mcg/ Dextrose 100 mls @ 20 mls/hr IVPB TITR ZOE Last Titration: 08/26/19 07:00 Dose: 50 mcg/hr, 10 mls/hr Piperacillin Sod/Tazobactam (Sod 2.25 gm/ Dextrose) 50 mls @ 100 mls/hr IVPB Q8H-IV ZOE; Protocol Last Admin: 08/26/19 09:27 Dose: 100 mls/hr Insulin Aspart (Novolog Vial Sliding Scale -) 1 vial SQ ACHS ZOE; Protocol Last Admin: 08/26/19 12:08 Dose: 2 units Levothyroxine Sodium (Synthroid Injection -) 100 mcg IVPUSH DAILY [facility] Last Admin: 08/26/19 13:17 Dose: 100 mcg - Objective Vital Signs: Vital Signs Temperature 97.3 F L 08/26/19 10:00 Pulse Rate 63 08/26/19 12:00 Respiratory Rate 24 H 08/26/19 12:05 Blood Pressure 126/74 08/26/19 12:00 O2 Sat by Pulse Oximetry (%) 100 12/16/19 09:00 Constitutional: Yes: Calm Eyes: Yes: Conjunctiva Clear HENT: Yes: Atraumatic Neck: Yes: Supple Cardiovascular: Yes: S1, S2 Respiratory: Yes: Mechanically Ventilated Gastrointestinal: Yes: Soft, Abdomen, Obese Genitourinary: Yes: Mahoney Present Musculoskeletal: Yes: Muscle Weakness Edema: Yes Edema: LUE: 1+, RUE: 1+, LLE: 2+, RLE: 2+ Neurological: Yes: Lethargy Labs: CBC, BMP 08/26/19 10:30 08/26/19 05:54 INR, PTT INR 0.89 (0.83-1.09) 08/25/19 11:00 - ....Imaging Chest X-ray: Report Reviewed Problem List - Problems (1) AMS (altered mental status) Code(s): R41.82 - ALTERED MENTAL STATUS, UNSPECIFIED (2) Acute metabolic encephalopathy Code(s): G93.41 - METABOLIC ENCEPHALOPATHY (3) Acute renal failure Code(s): N17.9 - ACUTE KIDNEY FAILURE, UNSPECIFIED (4) Diabetes Code(s): E11.9 - TYPE 2 DIABETES MELLITUS WITHOUT COMPLICATIONS (5) Hypercapnic respiratory failure Code(s): J96.92 - RESPIRATORY FAILURE, UNSPECIFIED WITH HYPERCAPNIA (6) Hypothermia Code(s): T68.XXXA - HYPOTHERMIA, INITIAL ENCOUNTER (7) Morbid obesity Code(s): E66.01 - MORBID (SEVERE) OBESITY DUE TO EXCESS CALORIES Assessment/Plan Current Medications Generic Name Dose Route Start Last Admin Trade Name Freq PRN Reason Stop Dose Admin Albuterol Sulfate 1 amp 08/25/19 14:57 Ventolin 0.083% Nebulizer Soln - NEB Q6H PRN SHORT OF BREATH/WHEEZING Albuterol/Ipratropium 1 amp 08/25/19 14:57 Duoneb - NEB Q4H PRN SHORTNESS OF BREATH Heparin Sodium (Porcine) 5,000 unit 08/25/19 22:00 08/26/19 05:03 Heparin - SQ 5,000 unit TID ZOE Administration Hydrocortisone Sodium Succinate 100 mg 08/25/19 15:00 08/26/19 06:01 Solu-Cortef - IVPUSH 100 mg Q8H ZOE Administration Famotidine/Sodium Chloride 20 mg in 50 mls @ 100 mls/hr 08/26/19 08:00 08:34 Pepcid 20 Mg Premixed Ivpb - IVPB 100 mls/hr DAILY@0800 ZOE Administration Propofol 1,000,000 mcg in 100 mls @ 34.7 mls/hr 08/25/19 18:45 08/26/19 13:24 Diprivan - IVPB 30 mcg/kg/min TITR ZOE 20.82 mls/hr Titration Protocol 50 MCG/KG/MIN Fentanyl 500 mcg/ Dextrose 100 mls @ 20 mls/hr 08/25/19 18:45 08/26/19 07:00 IVPB 50 mcg/hr TITR ZOE 10 mls/hr Titration 100 MCG/HR Piperacillin Sod/Tazobactam 50 mls @ 100 mls/hr 08/26/19 02:00 08/26/19 09:27 Sod 2.25 gm/ Dextrose IVPB 100 mls/hr Q8H-IV ZOE Administration Protocol Insulin Aspart 1 vial 08/26/19 07:00 08/26/19 12:08 Novolog Vial Sliding Scale - SQ 2 units ACHS ZOE Administration Protocol Levothyroxine Sodium 100 mcg 08/26/19 10:00 08/26/19 13:17 Synthroid Injection - IVPUSH 100 mcg DAILY ZOE Administration Impression 1. LUCY 2. fluid overload 3. acute respiratory failure 4. hypothyroidism with tsh of 100 5. 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 urine tox pos for mdma 7. mild rhabdo Plan - cobt vent support - give another dose of lasix and monitor urine output - cont vent support - follow serologic workup - discussed with ICU, will hold off HD today - repeat labs in am - daily cxr - follow urine studies - nepro for feeds - renal ultrasound reviewed
--- NOTE | 2019-08-26 14:52 | EKG ---
Test Reason : Blood Pressure : / mmHG Vent. Rate : 073 BPM Atrial Rate : 073 BPM P-R Int : 160 ms QRS Dur : 074 ms QT Int : 408 ms P-R-T Axes : 064 041 -31 degrees QTc Int : 449 ms NORMAL SINUS RHYTHM LOW VOLTAGE QRS ABNORMAL ECG NO PREVIOUS ECGS AVAILABLE Confirmed by LIDA CERDA MD ([id number]) on 08/26/2019 2:51:32 PM Referred By: Confirmed By:LIDA CERDA MD
--- NOTE | 2019-08-26 15:21 | CONSULT ---
Consult Consult Specialty:: Endocrinology Referred by:: Edgar TAYLOR Reason for Consultation:: Hypothyroidism - History of Present Illness Chief Complaint: AMS History of Present Illness: This is a 54 yo morbily obese woman with h/o hypothyroidism, thyroid cancer s/ p thyroidectomy, DM, CKD, renal stones, COPD who presented to the ED with lethargy and SOB and was found to be hypothermic with temp 94.5. As per son at bedside, patient [facility] and has no PMD here. Was seen in [facility] ED about 2 weeks ago with Rt knee and leg pain. Pt was found lelthargic by son on Monday brought to ED. Per her son patient has been non compliant w / her medications. On exam in ED patient obtunded, unable to answer questions and only responsive to noxious stimulation. Initial AB.09/58/115 on NC. She was placed on NIPPV for hypercapnia. TSH 100, T4: 3.5, Cr was 7.7 AG 10. UTOX + ecstasy. VS: temp 94f, HR 76,BP: 131/80 RR 24-28 bpm. Pt was subsequently intubated. Pt started on empiric Abx, IV LT4 and IV hydrocortisone. - History Source History Provided By: Family Member, Medical Record - Past Medical History Cardio/Vascular: Yes: HTN Pulmonary: Yes: COPD Psych: Yes: Addictions (ecstacy) Endocrine: Yes: Diabetes Mellitus, Hypothyroidism, Other (Thyroid ca) - Past Surgical History Additional Surgical History: thyroidectomy - Alcohol/Substance Use Hx Alcohol Use: (not known) - Smoking History Smoking history: Unknown if ever smoked - Social History Usual Living Arrangement: With Significant Other Home Medications - Allergies Allergies/Adverse Reactions: Allergies Allergy/AdvReac Type Severity Reaction Status Date / Time pollen extracts AdvReac Unknown Verified 08/25/19 18:16 shellfish derived AdvReac Unknown Verified 08/25/19 18:16 - Home Medications Home Medications: Ambulatory Orders Aspirin 81 mg PO DAILY 08/25/19 Atorvastatin Calcium 10 mg PO HS 08/25/19 Cetirizine HCl [Allergy Relief] 10 mg PO DAILY 08/25/19 Docusate Sodium [Docusate 100 mg] 100 mg PO BID 08/25/19 Levothyroxine [Synthroid -] 225 mcg PO DAILY 08/25/19 Lisinopril [Prinivil -] 40 mg PO DAILY 08/25/19 Nifedipine [Adalat cc] 60 mg PO DAILY 08/25/19 Sitagliptin Phosphate [Januvia] 50 mg PO DAILY 08/25/19 Bupropion HCl [Wellbutrin Xl] 300 mg PO DAILY 08/26/19 Chlorpromazine [Thorazine -] 100 mg PO HS 08/26/19 Clonazepam [Klonopin] 2 mg PO HS 08/26/19 Ferrous Sulfate 325 mg PO DAILY 08/26/19 Insulin Glargine,Hum.rec.anlog [Lantus Solostar] 20 units IN DAILY 08/26/19 Paroxetine HCl [Paxil] 40 mg PO DAILY 08/26/19 Review of Systems Unable to obtain ROS, reason: Intubated and sedated Physical Exam Vital Signs: Vital Signs Temperature 97.3 F L 08/26/19 10:00 Pulse Rate 63 08/26/19 12:00 Respiratory Rate 24 H 08/26/19 12:05 Blood Pressure 126/74 08/26/19 12:00 O2 Sat by Pulse Oximetry (%) 100 08/26/19 09:00 Constitutional: Yes: Other (Intubated and sedated) Eyes: Yes: Conjunctiva Clear HENT: Yes: Atraumatic, Normocephalic Neck: Yes: Supple, Trachea Midline Cardiovascular: Yes: Regular Rate and Rhythm Respiratory: Yes: CTA Bilaterally, Mechanically Ventilated, Other Gastrointestinal: Yes: Normal Bowel Sounds, Soft Extremities: Yes: WNL Edema: Yes Neurological: Yes: Other (Intubated and sedated) Labs: CBC, BMP 08/26/19 10:30 08/26/19 05:54 Problem List - Problems (1) AMS (altered mental status) Code(s): R41.82 - ALTERED MENTAL STATUS, UNSPECIFIED (2) Acute metabolic encephalopathy Code(s): G93.41 - METABOLIC ENCEPHALOPATHY (3) Acute renal failure Code(s): N17.9 - ACUTE KIDNEY FAILURE, UNSPECIFIED (4) Diabetes Code(s): E11.9 - TYPE 2 DIABETES MELLITUS WITHOUT COMPLICATIONS (5) Hypercapnic respiratory failure Code(s): J96.92 - RESPIRATORY FAILURE, UNSPECIFIED WITH HYPERCAPNIA (6) Hypothermia Code(s): T68.XXXA - HYPOTHERMIA, INITIAL ENCOUNTER (7) Metabolic acidosis Code(s): E87.2 - ACIDOSIS (8) Morbid obesity Code(s): E66.01 - MORBID (SEVERE) OBESITY DUE TO EXCESS CALORIES Assessment/Plan AP: Respiratory failure AMS/ Toxic metabolic encephalopathy Hypothyrodism Throid ca s/p Thyroidectomy Morbid obesity LUCY on CKD DM Anemia with drop in H/H H/o Renal stones Ventilatory support PRBC transfusion on going IV Abx Doubt primary problem is hypothyroidism and myxedema coma Agree with IV LT4 100mcg QD and IV hydrocortiosne BGM Q 4hrs Novolog SS coverage Will f/u
--- NOTE | 2019-08-26 17:16 | PN ---
Physical Exam: SUBJECTIVE: Patient seen and examined in the icu. intubated/sedated propofol. OBJECTIVE: Patient is a 54 year old morbid obese female with a significant past medical history of hypertension, hyperlipidemia, diabetes, COPD, anemia, thyroid cancer 6 years ago (no prior admission to [facility]). Patient brought into the ED 08/25/19 for altered mental status and acute shortness of breath. She was found to have an elevated TSH, low t4 and hypothermic (96f-97-on mariana hugger ). Urine is + for ecstasy. She also has renal failure with a creat of 7.7, bun of 65,mag 1.6, elevated ast/alt. In the ED she was placed on bipap pressure support for respiratory acidosis with a ph of 7.07,co2 64. Patient being admitted for myxedema coma, acute renal failure, acute metabolic encephalopathy, metabolic acidosis, hypercapneic respiratory failure. Repeat abg without improvement of acidosis, and elevated co2. patient intubated to protect airway. Anemia with drop in H/H - for 2 units of prbc. Period Temp Pulse Resp BP Sys/Amos Pulse Ox Last 24 Hr 95.0 F-98.9 F 63-72 9-24 107-140/59-75 98-100 GENERAL: intubated, generalized edema HEAD: Normal with no signs of trauma. EYES: Pupils equal, round and reactive to light EARS, NOSE, THROAT: Ears normal, nares patent, oropharynx clear without exudates. Moist mucous membranes. NECK: Normal range of motion, supple without lymphadenopathy, JVD, or masses. LUNGS: mild wheezing on anterior lobes, posterior lobes diminished breath sounds HEART: Regular rate and rhythm ABDOMEN: large obese abdomen MUSCULOSKELETAL: No CVA tenderness. UPPER EXTREMITIES:no edema LOWER EXTREMITIES: +2 lower ext edema NEUROLOGICAL:lethargic PSYCHIATRIC: lethargic SKIN: multiple tattoos Laboratory Results - last 24 hr 08/25/19 08/25/19 08/25/19 11:00 11:18 12:46 WBC RBC Hgb Hct MCV MCH MCHC RDW Plt Count MPV Absolute Neuts (auto) Neutrophils % Lymphocytes % Monocytes % Eosinophils % Basophils % Nucleated RBC % Anticoagulation Therapy Puncture Site ABG pH ABG pCO2 at Pt Temp ABG pO2 at Pt Temp ABG HCO3 ABG O2 Sat (Measured) ABG O2 Content ABG Base Excess Sky Test O2 Delivery Device Oxygen Flow Rate Vent Mode Vent Rate Mechanical Rate PEEP Pressure Support Vent Sodium Potassium Chloride Carbon Dioxide Anion Gap BUN Creatinine Est GFR (CKD-EPI)AfAm Est GFR (CKD-EPI)NonAf POC Glucometer Random Glucose Calcium Phosphorus Magnesium Total Bilirubin Direct Bilirubin AST ALT Alkaline Phosphatase Creatine Kinase Creatine Kinase Index CK-MB (CK-2) Troponin I Total Protein Albumin Free T4 0.24 L Resin T3 Uptake Cortisol Pre Dose Time 40.10 Ur Random Creatinine U Random Total Protein Ur Random Sodium Ur Random Potassium Ur Random Chloride Influenza A (Rapid) Influenza B (Rapid) Blood Type O POSITIVE Antibody Screen Negative Crossmatch See Detail 08/25/19 08/25/19 08/25/19 17:32 18:30 18:30 WBC RBC Hgb Hct MCV MCH MCHC RDW Plt Count MPV Absolute Neuts (auto) Neutrophils % Lymphocytes % Monocytes % Eosinophils % Basophils % Nucleated RBC % Anticoagulation Therapy Puncture Site ABG pH ABG pCO2 at Pt Temp ABG pO2 at Pt Temp ABG HCO3 ABG O2 Sat (Measured) ABG O2 Content ABG Base Excess Sky Test O2 Delivery Device Oxygen Flow Rate Vent Mode Vent Rate Mechanical Rate PEEP Pressure Support Vent Sodium Potassium Chloride Carbon Dioxide Anion Gap BUN Creatinine Est GFR (CKD-EPI)AfAm Est GFR (CKD-EPI)NonAf POC Glucometer 225 Random Glucose Calcium Phosphorus Magnesium Total Bilirubin Direct Bilirubin AST ALT Alkaline Phosphatase Creatine Kinase Creatine Kinase Index CK-MB (CK-2) Troponin I Total Protein Albumin Free T4 Resin T3 Uptake Cortisol Pre Dose Time Ur Random Creatinine 167.0 H U Random Total Protein 1235.7 H Ur Random Sodium 25 L Ur Random Potassium 38.0 Ur Random Chloride 22 L Influenza A (Rapid) Negative Influenza B (Rapid) Negative Blood Type Antibody Screen Crossmatch 08/25/19 08/25/19 08/25/19 18:32 18:45 20:04 WBC RBC Hgb Hct MCV MCH MCHC RDW Plt Count MPV Absolute Neuts (auto) Neutrophils % Lymphocytes % Monocytes % Eosinophils % Basophils % Nucleated RBC % Anticoagulation Therapy No Result Required. Puncture Site Right radial ABG pH 7.31 L ABG pCO2 at Pt Temp 46.1 H ABG pO2 at Pt Temp 309 H ABG HCO3 22.3 ABG O2 Sat (Measured) 99.2 H ABG O2 Content 9.5 ABG Base Excess -3.1 L Sky Test Positive O2 Delivery Device Espirit Oxygen Flow Rate 100% Vent Mode A/c Vent Rate 24 Mechanical Rate Espirit PEEP 10.0 Pressure Support Vent 400 Sodium Potassium Chloride Carbon Dioxide Anion Gap BUN Creatinine Est GFR (CKD-EPI)AfAm Est GFR (CKD-EPI)NonAf POC Glucometer 238 Random Glucose Calcium Phosphorus Magnesium Total Bilirubin Direct Bilirubin AST ALT Alkaline Phosphatase Creatine Kinase Creatine Kinase Index CK-MB (CK-2) Troponin I Total Protein Albumin Free T4 Resin T3 Uptake Cortisol Pre Dose Time Ur Random Creatinine U Random Total Protein Ur Random Sodium Ur Random Potassium Ur Random Chloride Influenza A (Rapid) Influenza B (Rapid) Blood Type O POSITIVE Antibody Screen Crossmatch 08/25/19 08/26/19 08/26/19 21:06 00:07 05:20 WBC RBC Hgb Hct MCV MCH MCHC RDW Plt Count MPV Absolute Neuts (auto) Neutrophils % Lymphocytes % Monocytes % Eosinophils % Basophils % Nucleated RBC % Anticoagulation Therapy Puncture Site ABG pH ABG pCO2 at Pt Temp ABG pO2 at Pt Temp ABG HCO3 ABG O2 Sat (Measured) ABG O2 Content ABG Base Excess Sky Test O2 Delivery Device Oxygen Flow Rate Vent Mode Vent Rate Mechanical Rate PEEP Pressure Support Vent Sodium Potassium Chloride Carbon Dioxide Anion Gap BUN Creatinine Est GFR (CKD-EPI)AfAm Est GFR (CKD-EPI)NonAf POC Glucometer 238 204 186 Random Glucose Calcium Phosphorus Magnesium Total Bilirubin Direct Bilirubin AST ALT Alkaline Phosphatase Creatine Kinase Creatine Kinase Index CK-MB (CK-2) Troponin I Total Protein Albumin Free T4 Resin T3 Uptake Cortisol Pre Dose Time Ur Random Creatinine U Random Total Protein Ur Random Sodium Ur Random Potassium Ur Random Chloride Influenza A (Rapid) Influenza B (Rapid) Blood Type Antibody Screen Crossmatch 08/26/19 08/26/19 08/26/19 05:54 05:54 06:55 WBC 6.8 RBC 2.24 L Hgb 6.7 L* Hct 20.0 L D MCV 89.2 MCH 29.9 MCHC 33.5 RDW 19.4 H Plt Count 228 MPV 8.6 Absolute Neuts (auto) 5.6 Neutrophils % 82.9 H Lymphocytes % 15.3 Monocytes % 1.7 L Eosinophils % 0.0 Basophils % 0.1 Nucleated RBC % 0 Anticoagulation Therapy No Result Required. Puncture Site Right radial ABG pH 7.32 L ABG pCO2 at Pt Temp 33.2 L ABG pO2 at Pt Temp 149 H ABG HCO3 16.8 L ABG O2 Sat (Measured) 98.5 H ABG O2 Content 9.2 ABG Base Excess -8.0 L Sky Test Positive O2 Delivery Device Mech vent Oxygen Flow Rate 50% Vent Mode A/c Vent Rate 24 Mechanical Rate Yes PEEP 10.0 Pressure Support Vent 400 Sodium 143 Potassium 4.7 Chloride 112 H Carbon Dioxide 19 L Anion Gap 12 BUN 68.7 H Creatinine 7.9 H* Est GFR (CKD-EPI)AfAm 6.16 Est GFR (CKD-EPI)NonAf 5.32 POC Glucometer Random Glucose 190 H Calcium 6.6 L* Phosphorus 6.8 H Magnesium 1.7 L Total Bilirubin 0.4 Direct Bilirubin 0.2 AST 59 H ALT 95 H Alkaline Phosphatase 766 H Creatine Kinase 1133 H Creatine Kinase Index 0.8 CK-MB (CK-2) 9.5 H Troponin I < 0.02 Total Protein 5.6 L Albumin 2.0 L Free T4 Resin T3 Uptake 30.3 Cortisol Pre Dose Time Ur Random Creatinine U Random Total Protein Ur Random Sodium Ur Random Potassium Ur Random Chloride Influenza A (Rapid) Influenza B (Rapid) Blood Type Antibody Screen Crossmatch 08/26/19 08/26/19 10:30 12:07 WBC 6.3 RBC 1.94 L Hgb 5.8 L* Hct 17.4 L MCV 90.0 MCH 29.7 MCHC 33.0 RDW 19.1 H Plt Count 202 MPV 8.0 Absolute Neuts (auto) 4.9 Neutrophils % 78.0 Lymphocytes % 19.0 D Monocytes % 2.9 L Eosinophils % 0.0 Basophils % 0.1 Nucleated RBC % 0 Anticoagulation Therapy Puncture Site ABG pH ABG pCO2 at Pt Temp ABG pO2 at Pt Temp ABG HCO3 ABG O2 Sat (Measured) ABG O2 Content ABG Base Excess Sky Test O2 Delivery Device Oxygen Flow Rate Vent Mode Vent Rate Mechanical Rate PEEP Pressure Support Vent Sodium Potassium Chloride Carbon Dioxide Anion Gap BUN Creatinine Est GFR (CKD-EPI)AfAm Est GFR (CKD-EPI)NonAf POC Glucometer 156 Random Glucose Calcium Phosphorus Magnesium Total Bilirubin Direct Bilirubin AST ALT Alkaline Phosphatase Creatine Kinase Creatine Kinase Index CK-MB (CK-2) Troponin I Total Protein Albumin Free T4 Resin T3 Uptake Cortisol Pre Dose Time Ur Random Creatinine U Random Total Protein Ur Random Sodium Ur Random Potassium Ur Random Chloride Influenza A (Rapid) Influenza B (Rapid) Blood Type Antibody Screen Crossmatch Active Medications Generic Name Dose Route Start Last Admin Trade Name Juan Daniel PRN Reason Stop Dose Admin Albuterol Sulfate 1 amp 08/25/19 14:57 Ventolin 0.083% Nebulizer Soln - NEB Q6H PRN SHORT OF BREATH/WHEEZING Albuterol/Ipratropium 1 amp 08/25/19 14:57 Duoneb - NEB Q4H PRN SHORTNESS OF BREATH Hydrocortisone Sodium Succinate 100 mg 08/25/19 15:00 08/26/19 14:43 Solu-Cortef - IVPUSH 100 mg Q8H ZOE Administration Famotidine/Sodium Chloride 20 mg in 50 mls @ 100 mls/hr 08/26/19 08:00 08:34 Pepcid 20 Mg Premixed Ivpb - IVPB 100 mls/hr DAILY@0800 ZOE Administration Propofol 1,000,000 mcg in 100 mls @ 34.7 mls/hr 08/25/19 18:45 08/26/19 13:24 Diprivan - IVPB 30 mcg/kg/min TITR ZOE 20.82 mls/hr Titration Protocol 50 MCG/KG/MIN Fentanyl 500 mcg/ Dextrose 100 mls @ 20 mls/hr 08/25/19 18:45 08/26/19 07:00 IVPB 50 mcg/hr TITR ZOE 10 mls/hr Titration 100 MCG/HR Piperacillin Sod/Tazobactam 50 mls @ 100 mls/hr 08/26/19 02:00 08/26/19 09:27 Sod 2.25 gm/ Dextrose IVPB 100 mls/hr Q8H-IV ZOE Administration Protocol Insulin Aspart 1 vial 08/26/19 07:00 08/26/19 12:08 Novolog Vial Sliding Scale - SQ 2 units ACHS ZOE Administration Protocol Levothyroxine Sodium 100 mcg 08/26/19 10:00 08/26/19 13:17 Synthroid Injection - IVPUSH 100 mcg DAILY ZOE Administration ASSESSMENT/PLAN: Problem List - Problems (1) Myxedema coma Assessment/Plan: Patient with a history of hypothyroidism and thyroid cancer and presents to the Ed with altered mental stauts, hypothermia (97F) requiring a mariana hugger, acute renal failure (creat 7.7 with unknown baseline), elevated liver enzymes, metabolic acidosis, acute shortness of breath, obtunded requiring intubation to protect airway. repeat abgs without improvement with which shows respiratory failure with hypercapnia. Given Levothyroxine 100mcg IV started on daily levothyrxine 100ng daily cardiac monitoring endocrinology consulted, notes reviewed Code(s): E03.5 - MYXEDEMA COMA (2) Hypercapnic respiratory failure Assessment/Plan: initally on bipap on admission, now intubated abg with with hypercapnic respiratory failure Code(s): J96.92 - RESPIRATORY FAILURE, UNSPECIFIED WITH HYPERCAPNIA (3) SOB (shortness of breath) Assessment/Plan: in the setting of uremia, ecstasy in urine, hypercapnic respiratory failure and possible myxedema coma Code(s): R06.02 - SHORTNESS OF BREATH (4) Acute metabolic encephalopathy Assessment/Plan: patient presents to the ED obtuned Has + ecstasy in urine acute AMS possibly secondary to myexedma coma (TSH 100)with acute hypercapneic respiratory failure/acidosis with uremia on labs with unknown baseline (bun 65, creat 7.7) intubated in the ED to protect airway, trial of bipap given but repeat abgs unchanged. Patient for ICU monitoring Head Ct noted, neuro consulted monitor mental status/neuro status Code(s): G93.41 - METABOLIC ENCEPHALOPATHY (5) Morbid obesity Assessment/Plan: outpatient follow up Code(s): E66.01 - MORBID (SEVERE) OBESITY DUE TO EXCESS CALORIES (6) AMS (altered mental status) Assessment/Plan: see acute metabolic encephalopathy Code(s): R41.82 - ALTERED MENTAL STATUS, UNSPECIFIED (7) Acute renal failure Assessment/Plan: acute renal failure with hypoxia, anasarca and respiratory failure. renal dose all medications urine studies pending ocampo cathter placed for intake and output, monitor weights daily renal consulted for possible initiation of dialysis for creat 7.7 potassium within normal limits Code(s): N17.9 - ACUTE KIDNEY FAILURE, UNSPECIFIED (8) Metabolic acidosis Assessment/Plan: acute metabolic acidosis given levothyroxine IV in the Ed, started on levothyroxine 100mg daily s/p insulin drip now on glucs ac/hs hydrocortisone 100 mg Q8H IV for possible adrenal insufficiency Code(s): E87.2 - ACIDOSIS (9) Diabetes Assessment/Plan: bgms ac/hs a1c pending Code(s): E11.9 - TYPE 2 DIABETES MELLITUS WITHOUT COMPLICATIONS (10) Hypothermia Assessment/Plan: hypothermia of unclear etiology blood and urine cultures sent and pending chest xray shows left pleural effusion, small left base infiltrate on zosyn pending ID consultation for further recommendations lactic acid within normals limits Code(s): T68.XXXA - HYPOTHERMIA, INITIAL ENCOUNTER Visit type - Emergency Visit Emergency Visit: Yes ED Registration Date: 08/25/19 Care time: The patient presented to the Emergency Department on the above date and was hospitalized for further evaluation of their emergent condition. - New Patient This patient is new to me today: No - Critical Care Critical Care patient: Yes Total Critical Care Time (in minutes): 60 Critical Care Statement: The care of this patient involved high complexity decision making to prevent further life threatening deterioration of the patient 's condition and/or to evaluate & treat vital organ system(s) failure or risk of failure. - Discharge Referral Referred to [facility] No
[2019-08-26 21:41] LABS: BASO % 0.1 % (0-2.0); HEMATOCRIT 25.8 % (32.4-45.2); HEMOGLOBIN 8.6 GM/dL (10.7-15.3); LYMPH % 11.9 % (8-40); MCH 29.6 pg (25.7-33.7); MCHC 33.1 g/dl (32.0-36.0); MEAN CELL VOLUME 89.3 fl (80-96); MEAN PLT VOLUME 8.5 fl (7.5-11.1); MONO % 1.5 % (3.8-10.2); NEUT % 86.5 % (42.8-82.8); PLATELET COUNT 269 K/MM3 (134-434); RBC 2.89 M/mm3 (3.60-5.2); RDW 18.2 % (11.6-15.6); WHITE BLOOD COUNT 9.6 K/mm3 (4.0-10.0)
--- NOTE | 2019-08-26 23:54 | CON.NEURO ---
Consult - Past Medical History Cardio/Vascular: Yes: HTN Pulmonary: Yes: COPD Psych: Yes: Addictions (ecstacy) Endocrine: Yes: Diabetes Mellitus, Hypothyroidism, Other (Thyroid ca) - Past Surgical History Additional Surgical History: thyroidectomy - Alcohol/Substance Use Hx Alcohol Use: (not known) - Smoking History Smoking history: Unknown if ever smoked - Social History Usual Living Arrangement: With Significant Other Home Medications - Allergies Allergies/Adverse Reactions: Allergies Allergy/AdvReac Type Severity Reaction Status Date / Time pollen extracts AdvReac Unknown Verified 08/25/19 18:16 shellfish derived AdvReac Unknown Verified 08/25/19 18:16 - Home Medications Home Medications: Ambulatory Orders Aspirin 81 mg PO DAILY 08/25/19 Atorvastatin Calcium 10 mg PO HS 08/25/19 Cetirizine HCl [Allergy Relief] 10 mg PO DAILY 08/25/19 Docusate Sodium [Docusate 100 mg] 100 mg PO BID 08/25/19 Levothyroxine [Synthroid -] 225 mcg PO DAILY 08/25/19 Lisinopril [Prinivil -] 40 mg PO DAILY 08/25/19 Nifedipine [Adalat cc] 60 mg PO DAILY 08/25/19 Sitagliptin Phosphate [Januvia] 50 mg PO DAILY 08/25/19 Bupropion HCl [Wellbutrin Xl] 300 mg PO DAILY 08/26/19 Chlorpromazine [Thorazine -] 100 mg PO HS 08/26/19 Clonazepam [Klonopin] 2 mg PO HS 08/26/19 Ferrous Sulfate 325 mg PO DAILY 08/26/19 Insulin Glargine,Hum.rec.anlog [Lantus Solostar] 20 units IN DAILY 08/26/19 Paroxetine HCl [Paxil] 40 mg PO DAILY 08/26/19 Physical Exam-Neuro Vital Signs: Vital Signs Temperature 97.1 F L 08/26/19 22:00 Pulse Rate 60 08/26/19 22:00 Respiratory Rate 20 08/26/19 22:00 Blood Pressure 135/66 08/26/19 22:00 O2 Sat by Pulse Oximetry (%) 100 08/26/19 20:00 Labs: CBC, BMP 08/26/19 21:25 08/26/19 05:54 INR, PTT INR 0.89 (0.83-1.09) 08/25/19 11:00 Assessment/Plan CC abnormal ct head findings and AMS HPI 54 year old female history of HTN, HLD, DM COPD, Anemia thyroid cancer. Patient came with ams and had CHF, renal failure , anemia . Paitnet was intubated, she was hypothermic. She is on sedation . Paitent has ct head and there is mild dilation of ventricles. There is no evidence of seizure like activity , no high grade fever or neck stiffness. Patient has no head trauma PAST MEDICAL/SURGICAL HISTORY: hypertension, hyperlipidemia, diabetes, COPD, anemia, thyroid cancer Social History: Smoking: unknown Alcohol: unknown Drugs: + ecstasy Allergies No Known Allergies Allergy (Verified 08/25/19 11:32) Medication reviewed in chart, she is on fentanl and propafo ROS,FH,SH reviewed in chart NEUROLOGICAL EXAMINATION sedated and intubated , neck is supple pupils reactive no face asymmetry rest of neuro exam is not possible ct head reviewed and mild ventricular dilatation and this could be due to intercurrent illness Assessment/Plan4 year old female history of HTN, HLD, DM COPD, Anemia thyroid cancer. Patient came with ams and had CHF, renal failure , anemia . Patient has Metabolic encephalopathy, there is no evidence of status epilepticus, meningitis or stroke Plan: continue supportive care for now ct findings are benign and could be due to multiple intercurrent medical illness , no further work up or treatment necessary at this time Thanking you so much Hill Hayden MD
[2019-08-27] MEDS: PIPERACILLIN/TAZOB 2.25 GM 2.25 GM in DEXTROSE 5%-WATER - 50 ML IVPB SCH ×3 (02:00→19:05)
[2019-08-27] MEDS ORDERED: DEXTROSE 5%-WATER - 50 ML IVPB ONE ×3 (04:29→19:05)
[2019-08-27] MEDS ORDERED: PIPERACILLIN/TAZOBACTAM 2.25 GM VIAL IVPB ONE ×3 (04:29→19:05)
[2019-08-27] MEDS: HYDROCORTISONE SOD SUCCINATE 100 MG/2 ML VIAL IVPUSH SCH ×3 (06:08→22:06)
[2019-08-27] MEDS: INSULIN SLIDING SCALE (NOVOLOG) 1 VIAL SQ SCH ×4 (06:08→22:42)
[2019-08-27 07:27] LABS: BASO % 0.1 % (0-2.0); HEMATOCRIT 25.1 % (32.4-45.2); HEMOGLOBIN 8.3 GM/dL (10.7-15.3); LYMPH % 23.4 % (8-40); MCH 29.9 pg (25.7-33.7); MCHC 33.1 g/dl (32.0-36.0); MEAN CELL VOLUME 90.3 fl (80-96); MEAN PLT VOLUME 8.8 fl (7.5-11.1); MONO % 1.8 % (3.8-10.2); NEUT % 74.7 % (42.8-82.8); PLATELET COUNT 258 K/MM3 (134-434); RBC 2.78 M/mm3 (3.60-5.2); RDW 18.5 % (11.6-15.6); WHITE BLOOD COUNT 10.5 K/mm3 (4.0-10.0)
[2019-08-27 08:06] LABS: BILIRUBIN,TOTAL 0.4 mg/dL (0.2-1); BLOOD UREA NITROGEN 75.3 mg/dL (7-18); MAGNESIUM 1.8 mg/dL (1.8-2.4); PHOSPHOROUS 7.3 mg/dL (2.5-4.9); POTASSIUM 4.9 mmol/L (3.5-5.1); TOT PROT 6.1 g/dl (6.4-8.2)
--- NOTE | 2019-08-27 08:43 | PN ---
Progress Note, Physician Chief Complaint: orally intubated and sedated. Following simple commands and overbreathing the vent History of Present Illness: Patient is a 54 year old morbid obese female with a significant PMD Htn, HLD, DM , COPD, anemia, thyroid cancer 6 years ago. Patient brought into the ED for altered mental status and acute shortness of breath. She was found to have an elevated TSH, low t4 and hypothermic (96f-97-on mariana hugger). Urine is + for ecstasy. She also has renal failure with a creat of 7.7, bun of 65,mag 1.6, elevated ast/alt. In the ED she was placed on bipap & admitted for myxedema coma, acute renal failure, acute metabolic encephalopathy, metabolic acidosis, hypercapneic respiratory failure. Repeat abg without improvement of acidosis, and elevated co2. patient intubated to protect airway. - Current Medication List Current Medications: Active Medications Albuterol Sulfate (Ventolin 0.083% Nebulizer Soln -) 1 amp NEB Q6H PRN PRN Reason: SHORT OF BREATH/WHEEZING Albuterol/Ipratropium (Duoneb -) 1 amp NEB Q4H PRN PRN Reason: SHORTNESS OF BREATH Chlorhexidine Gluconate (Hibiclens For Decolonization -) 1 applic TP HS [facility] Hydrocortisone Sodium Succinate (Solu-Cortef -) 100 mg IVPUSH Q8H [facility] Last Admin: 08/27/19 06:08 Dose: 100 mg Famotidine/Sodium Chloride (Pepcid 20 Mg Premixed Ivpb -) 20 mg in 50 mls @ 100 mls/hr IVPB DAILY@0800 [facility] Last Admin: 08/26/19 08:34 Dose: 100 mls/hr Propofol (Diprivan -) 1,000,000 mcg in 100 mls @ 34.7 mls/hr IVPB TITR [facility]; Protocol Last Admin: 08/26/19 19:00 Dose: 30 mcg/kg/min, 20.82 mls/hr Fentanyl 500 mcg/ Dextrose 100 mls @ 20 mls/hr IVPB TITR [facility] Last Admin: 08/26/19 19:00 Dose: 50 mcg/hr, 10 mls/hr Piperacillin Sod/Tazobactam (Sod 2.25 gm/ Dextrose) 50 mls @ 100 mls/hr IVPB Q8H-IV [facility]; Protocol Last Admin: 08/27/19 02:00 Dose: 100 mls/hr Insulin Aspart (Novolog Vial Sliding Scale -) 1 vial SQ ACHS [facility]; Protocol Last Admin: 08/27/19 06:08 Dose: Not Given Levothyroxine Sodium (Synthroid Injection -) 100 mcg IVPUSH DAILY [facility] Last Admin: 08/26/19 13:17 Dose: 100 mcg Mupirocin (Bactroban Ointment (For Decolonization) -) 1 applic NS BID [facility] Stop: 09/01/19 09:59 - Objective Vital Signs: Vital Signs Temperature 97.2 F L 08/27/19 06:00 Pulse Rate 64 08/27/19 06:00 Respiratory Rate 24 H 08/27/19 08:15 Blood Pressure 130/70 08/27/19 06:00 O2 Sat by Pulse Oximetry (%) 100 08/26/19 20:00 Constitutional: Yes: Other (Intubated and sedated) Eyes: Yes: Other (scleral edema) HENT: Yes: WNL, Atraumatic, Normocephalic Neck: Yes: WNL, Supple, Trachea Midline Cardiovascular: Yes: Bradycardia (HR 50s) Respiratory: Yes: Mechanically Ventilated (orally intubated on AC, FIO2 40) Gastrointestinal: Yes: Soft, Abdomen, Obese ...Rectal Exam: Yes: Deferred Genitourinary: Yes: Mahoney Present Breast(s): Yes: WNL Extremities: Yes: Delayed Capillary Refill Edema: Yes Edema: LUE: 2+, RUE: 2+, LLE: 3+, RLE: 3+ Peripheral Pulses WNL: No Peripheral Pulses: Left Radial: 1+, Right Radial: 1+, Left Doralis Pedis: 1+, Right Dorsalis Pedis: 1+, Left Femoral: 1+, Right Femoral: 1+ Integumentary: Yes: WNL Neurological: Yes: Other (Intubated and sedated) Psychiatric: Yes: Other (Intubated and sedated) Labs: CBC, BMP 08/27/19 05:45 08/27/19 05:45 INR, PTT INR 0.89 (0.83-1.09) 08/25/19 11:00 - ....Imaging Chest X-ray: Image Reviewed (ETT 3cm above delmi, BL plerual effusions L>R) Problem List - Problems (1) HTN (hypertension) Assessment/Plan: on lisinipril/ nifedipine at homebeing held will restart when extubated Code(s): I10 - ESSENTIAL (PRIMARY) HYPERTENSION (2) HLD (hyperlipidemia) Assessment/Plan: c/w atorvastatin when extubated Code(s): E78.5 - HYPERLIPIDEMIA, UNSPECIFIED (3) COPD (chronic obstructive pulmonary disease) Assessment/Plan: duo nebs q4h mechanically ventilated on AC Code(s): J44.9 - CHRONIC OBSTRUCTIVE PULMONARY DISEASE, UNSPECIFIED (4) Anemia Assessment/Plan: recieved 1 u PRBC overnight (2u ordered however son refused 2nfd unit) Hgb 8.0 continue to monitor Code(s): D64.9 - ANEMIA, UNSPECIFIED (5) Thyroid cancer Code(s): C73 - MALIGNANT NEOPLASM OF THYROID GLAND (6) Acute respiratory failure Assessment/Plan: orally intuabted not able to wean at this time oral care as per nursing turn and reposition appreciate ICU level of care Code(s): J96.00 - ACUTE RESPIRATORY FAILURE, UNSP W HYPOXIA OR HYPERCAPNIA (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 Code(s): F16.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 ABUSE, UNCOMPLICATED (8) LUCY (acute kidney injury) Assessment/Plan: Cr 8.0 nephrology following and will dialyze today avoid nephrotoxic agents Code(s): N17.9 - ACUTE KIDNEY FAILURE, UNSPECIFIED (9) Acute metabolic encephalopathy Assessment/Plan: sedated on propofol amd fentanyl following simple commands during sedation interruption Code(s): G93.41 - METABOLIC ENCEPHALOPATHY (10) Morbid obesity Code(s): E66.01 - MORBID (SEVERE) OBESITY DUE TO EXCESS CALORIES (11) Prophylactic measure Assessment/Plan: FEN no additional IVF HD planned for today monitor electrolytes DVT SCDs Dispo requiring ICU care full code discharge planning Code(s): Z29.9 - ENCOUNTER FOR PROPHYLACTIC MEASURES, UNSPECIFIED (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 Assessment/Plan: IV synthroid endocrine following Code(s): E03.5 - MYXEDEMA COMA Visit type - Emergency Visit Emergency Visit: Yes ED Registration Date: 08/25/19 Care time: The patient presented to the Emergency Department on the above date and was hospitalized for further evaluation of their emergent condition. - New Patient This patient is new to me today: Yes Date on this admission: 08/27/19 - Critical Care Critical Care patient: Yes Total Critical Care Time (in minutes): 55 Critical Care Statement: The care of this patient involved high complexity decision making to prevent further life threatening deterioration of the patient 's condition and/or to evaluate & treat vital organ system(s) failure or risk of failure. - Discharge Referral Referred to [facility] No
[2019-08-27 08:55] LABS: CREATININE 8.2 mg/dL (0.55-1.3)
[2019-08-27 08:56] LABS: CALCIUM 6.7 mg/dL (8.5-10.1)
[2019-08-27] MEDS: FAMOTIDINE 20 MG/50 ML IVPB 20 MG/50 ML MG IVPB SCH (08:59)
[2019-08-27] MEDS ORDERED: PT OWN MED DRAWER 7, Y5N ONE (11:03)
[2019-08-27] MEDS: LEVOTHYROXINE SODIUM 100 MCG VIAL IVPUSH SCH (11:23)
[2019-08-27] MEDS: MUPIROCIN 2% TOPICAL OINTMENT FOR DECOLONIZATION NS SCH ×2 (11:24→21:59)
--- NOTE | 2019-08-27 11:34 | PN ---
Teaching Attending Note Name of Resident: Marta Chong ATTENDING PHYSICIAN STATEMENT I saw and evaluated the patient. I reviewed the resident's note and discussed the case with the resident. I agree with the resident's findings and plan as documented. SUBJECTIVE: Patient seen and examined in the ICU. Intubated and sedated. No pressors. Intake & Output 08/24/19 08/25/19 08/26/19 08/27/19 23:59 23:59 23:59 23:59 Intake Total 928.5 960 500 Output Total 705 600 400 Balance 223.5 360 100 Weight 255 lb 255 lb 255 lb Last Vital Signs Temp Pulse Resp BP Pulse Ox 97.8 F 57 L 24 H 133/68 100 08/27/19 10:00 08/27/19 10:00 08/27/19 10:00 08/27/19 10:00 08/26/19 20:00 Active Medications Albuterol Sulfate (Ventolin 0.083% Nebulizer Soln -) 1 amp NEB Q6H PRN PRN Reason: SHORT OF BREATH/WHEEZING Albuterol/Ipratropium (Duoneb -) 1 amp NEB Q4H PRN PRN Reason: SHORTNESS OF BREATH Chlorhexidine Gluconate (Hibiclens For Decolonization -) 1 applic TP HS [facility] Hydrocortisone Sodium Succinate (Solu-Cortef -) 100 mg IVPUSH Q8H [facility] Last Admin: 08/27/19 06:08 Dose: 100 mg Famotidine/Sodium Chloride (Pepcid 20 Mg Premixed Ivpb -) 20 mg in 50 mls @ 100 mls/hr IVPB DAILY@0800 [facility] Last Admin: 08/27/19 08:59 Dose: 100 mls/hr Propofol (Diprivan -) 1,000,000 mcg in 100 mls @ 34.7 mls/hr IVPB TITR [facility]; Protocol Last Admin: 08/26/19 19:00 Dose: 30 mcg/kg/min, 20.82 mls/hr Fentanyl 500 mcg/ Dextrose 100 mls @ 20 mls/hr IVPB TITR [facility] Last Admin: 08/26/19 19:00 Dose: 50 mcg/hr, 10 mls/hr Piperacillin Sod/Tazobactam (Sod 2.25 gm/ Dextrose) 50 mls @ 100 mls/hr IVPB Q8H-IV [facility]; Protocol Last Admin: 08/27/19 11:23 Dose: 100 mls/hr Insulin Aspart (Novolog Vial Sliding Scale -) 1 vial SQ ACHS [facility]; Protocol Last Admin: 08/27/19 06:08 Dose: Not Given Levothyroxine Sodium (Synthroid Injection -) 100 mcg IVPUSH DAILY [facility] Last Admin: 08/27/19 11:23 Dose: 100 mcg Mupirocin (Bactroban Ointment (For Decolonization) -) 1 applic NS BID [facility] Stop: 09/01/19 09:59 Last Admin: 08/27/19 11:24 Dose: 1 applic Constitutional: Yes: Intubated and sedated Eyes: Yes: PERRL, Other (exopthalmos) Cardiovascular: Yes: S1, S2 Respiratory: Yes: Diminished, On BiPap, Poor Air Entry, Rales, Wheezes Gastrointestinal: Yes: Normal Bowel Sounds, Soft, Abdomen, Obese Edema: LLE: 3+ (warm to touch ), RLE: 3+ Peripheral Pulses WNL: Yes Integumentary: Yes: Tattoos Neurological: Yes: Sedated Labs: Laboratory Results - last 24 hr 08/25/19 08/25/19 08/25/19 11:18 12:46 13:24 WBC RBC Hgb Hct MCV MCH MCHC RDW Plt Count MPV Absolute Neuts (auto) Neutrophils % Lymphocytes % Monocytes % Eosinophils % Basophils % Nucleated RBC % Sodium Potassium Chloride Carbon Dioxide Anion Gap BUN Creatinine Est GFR (CKD-EPI)AfAm Est GFR (CKD-EPI)NonAf POC Glucometer Random Glucose Calcium Phosphorus Magnesium Total Bilirubin AST ALT Alkaline Phosphatase Total Protein Albumin Free T3 0.5 L Resin T3 Uptake Cortisol Pre Dose Time 40.10 Blood Type O POSITIVE Antibody Screen Negative Crossmatch See Detail 08/26/19 08/26/19 08/26/19 05:54 12:07 17:45 WBC RBC Hgb Hct MCV MCH MCHC RDW Plt Count MPV Absolute Neuts (auto) Neutrophils % Lymphocytes % Monocytes % Eosinophils % Basophils % Nucleated RBC % Sodium Potassium Chloride Carbon Dioxide Anion Gap BUN Creatinine Est GFR (CKD-EPI)AfAm Est GFR (CKD-EPI)NonAf POC Glucometer 156 133 Random Glucose Calcium Phosphorus Magnesium Total Bilirubin AST ALT Alkaline Phosphatase Total Protein Albumin Free T3 Resin T3 Uptake 30.3 Cortisol Pre Dose Time Blood Type Antibody Screen Crossmatch 08/26/19 08/26/19 08/27/19 21:25 22:10 05:23 WBC 9.6 RBC 2.89 L Hgb 8.6 L Hct 25.8 L D MCV 89.3 MCH 29.6 MCHC 33.1 RDW 18.2 H Plt Count 269 D MPV 8.5 Absolute Neuts (auto) 8.3 H Neutrophils % 86.5 H Lymphocytes % 11.9 D Monocytes % 1.5 L Eosinophils % 0.0 Basophils % 0.1 Nucleated RBC % 0 Sodium Potassium Chloride Carbon Dioxide Anion Gap BUN Creatinine Est GFR (CKD-EPI)AfAm Est GFR (CKD-EPI)NonAf POC Glucometer 138 149 Random Glucose Calcium Phosphorus Magnesium Total Bilirubin AST ALT Alkaline Phosphatase Total Protein Albumin Free T3 Resin T3 Uptake Cortisol Pre Dose Time Blood Type Antibody Screen Crossmatch 08/27/19 08/27/19 05:45 05:45 WBC 10.5 H RBC 2.78 L Hgb 8.3 L Hct 25.1 L MCV 90.3 MCH 29.9 MCHC 33.1 RDW 18.5 H Plt Count 258 MPV 8.8 Absolute Neuts (auto) 7.8 Neutrophils % 74.7 Lymphocytes % 23.4 D Monocytes % 1.8 L Eosinophils % 0.0 Basophils % 0.1 Nucleated RBC % 0 Sodium 142 Potassium 4.9 Chloride 112 H Carbon Dioxide 17 L Anion Gap 14 BUN 75.3 H Creatinine 8.2 H* Est GFR (CKD-EPI)AfAm 5.89 Est GFR (CKD-EPI)NonAf 5.08 POC Glucometer Random Glucose 152 H Calcium 6.7 L* Phosphorus 7.3 H Magnesium 1.8 Total Bilirubin 0.4 AST 48 H ALT 80 H Alkaline Phosphatase 737 H Total Protein 6.1 L Albumin 2.0 L Free T3 Resin T3 Uptake Cortisol Pre Dose Time Blood Type Antibody Screen Crossmatch Problem List - Problems (1) Hypercapnic respiratory failure Code(s): J96.92 - RESPIRATORY FAILURE, UNSPECIFIED WITH HYPERCAPNIA (2) Metabolic acidosis Code(s): E87.2 - ACIDOSIS (3) AMS (altered mental status) Code(s): R41.82 - ALTERED MENTAL STATUS, UNSPECIFIED (4) Acute renal failure Code(s): N17.9 - ACUTE KIDNEY FAILURE, UNSPECIFIED (5) 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 - MYXEDEMA COMA Assessment/Plan Acute Hypercapneic Respiratory Failure Hx of thyroid cancer S/P thyroidectomy IDDM COPD AMS due to myxedema coma (TSH 100, t:94.5) Acute Renal Failure Suspected OSAS / OHS Will need access for HD AC Mode of vent Stress dose steroids Strict monitoring of I & O BD TX PRN IV Synthroid HD per Renal Renal US High dose Lasix Glycemic control Endocrine consult Will need for OSAS testing as an outpatient Empiric ABX Requires ICU monitoring Dr Alonso Critical care time spent in reviewing chart, evaluating patient and formulating plan - 36 minutes.
[2019-08-27] MEDS ORDERED: fentaNYL CITRATE 250 MCG/5 ML VIAL ONE ×2 (11:36→21:49)
[2019-08-27] MEDS ORDERED: SODIUM CHLORIDE 250 ML IV PRN (11:48)
--- NOTE | 2019-08-27 11:48 | PN ---
Progress Note, Physician History of Present Illness: Pt seen and examined at bedside. She remains in the ICU. She remains intubated. - Current Medication List Current Medications: Active Medications Albuterol Sulfate (Ventolin 0.083% Nebulizer Soln -) 1 amp NEB Q6H PRN PRN Reason: SHORT OF BREATH/WHEEZING Albuterol/Ipratropium (Duoneb -) 1 amp NEB Q4H PRN PRN Reason: SHORTNESS OF BREATH Chlorhexidine Gluconate (Hibiclens For Decolonization -) 1 applic TP HS [facility] Hydrocortisone Sodium Succinate (Solu-Cortef -) 100 mg IVPUSH Q8H [facility] Last Admin: 08/27/19 06:08 Dose: 100 mg Famotidine/Sodium Chloride (Pepcid 20 Mg Premixed Ivpb -) 20 mg in 50 mls @ 100 mls/hr IVPB DAILY@0800 [facility] Last Admin: 08/27/19 08:59 Dose: 100 mls/hr Propofol (Diprivan -) 1,000,000 mcg in 100 mls @ 34.7 mls/hr IVPB TITR [facility]; Protocol Last Admin: 08/26/19 19:00 Dose: 30 mcg/kg/min, 20.82 mls/hr Fentanyl 500 mcg/ Dextrose 100 mls @ 20 mls/hr IVPB TITR [facility] Last Admin: 08/26/19 19:00 Dose: 50 mcg/hr, 10 mls/hr Piperacillin Sod/Tazobactam (Sod 2.25 gm/ Dextrose) 50 mls @ 100 mls/hr IVPB Q8H-IV [facility]; Protocol Last Admin: 08/27/19 11:23 Dose: 100 mls/hr Insulin Aspart (Novolog Vial Sliding Scale -) 1 vial SQ ACHS [facility]; Protocol Last Admin: 08/27/19 06:08 Dose: Not Given Levothyroxine Sodium (Synthroid Injection -) 100 mcg IVPUSH DAILY [facility] Last Admin: 08/27/19 11:23 Dose: 100 mcg Mupirocin (Bactroban Ointment (For Decolonization) -) 1 applic NS BID [facility] Stop: 09/01/19 09:59 Last Admin: 08/27/19 11:24 Dose: 1 applic - Objective Vital Signs: Vital Signs Temperature 97.8 F 08/27/19 10:00 Pulse Rate 57 L 08/27/19 10:00 Respiratory Rate 24 H 08/27/19 10:00 Blood Pressure 133/68 08/27/19 10:00 O2 Sat by Pulse Oximetry (%) 100 08/26/19 20:00 Constitutional: Yes: Calm Eyes: Yes: Conjunctiva Clear HENT: Yes: Atraumatic Cardiovascular: Yes: S1, S2 Respiratory: Yes: Intubated, Mechanically Ventilated Gastrointestinal: Yes: Normal Bowel Sounds, Soft Genitourinary: Yes: Mahoney Present Musculoskeletal: Yes: Muscle Weakness Edema: Yes Edema: LUE: 1+, RUE: 1+, LLE: 2+, RLE: 2+ Integumentary: Yes: Tattoos Neurological: Yes: Lethargy Labs: CBC, BMP 08/27/19 05:45 08/27/19 05:45 INR, PTT INR 0.89 (0.83-1.09) 08/25/19 11:00 - ....Imaging Chest X-ray: Image Reviewed Problem List - Problems (1) AMS (altered mental status) Code(s): R41.82 - ALTERED MENTAL STATUS, UNSPECIFIED (2) Acute metabolic encephalopathy Code(s): G93.41 - METABOLIC ENCEPHALOPATHY (3) Acute renal failure Code(s): N17.9 - ACUTE KIDNEY FAILURE, UNSPECIFIED (4) Diabetes Code(s): E11.9 - TYPE 2 DIABETES MELLITUS WITHOUT COMPLICATIONS (5) Hypercapnic respiratory failure Code(s): J96.92 - RESPIRATORY FAILURE, UNSPECIFIED WITH HYPERCAPNIA (6) Hypothermia Code(s): T68.XXXA - HYPOTHERMIA, INITIAL ENCOUNTER (7) Morbid obesity Code(s): E66.01 - MORBID (SEVERE) OBESITY DUE TO EXCESS CALORIES Assessment/Plan Current Medications Generic Name Dose Route Start Last Admin Trade Name Freq PRN Reason Stop Dose Admin Albuterol Sulfate 1 amp 08/25/19 14:57 Ventolin 0.083% Nebulizer Soln - NEB Q6H PRN SHORT OF BREATH/WHEEZING Albuterol/Ipratropium 1 amp 08/25/19 14:57 Duoneb - NEB Q4H PRN SHORTNESS OF BREATH Chlorhexidine Gluconate 1 applic 08/27/19 22:00 Hibiclens For Decolonization - TP HS [facility] Hydrocortisone Sodium Succinate 100 mg 08/25/19 15:00 08/27/19 06:08 Solu-Cortef - IVPUSH 100 mg Q8H [facility] Administration Famotidine/Sodium Chloride 20 mg in 50 mls @ 100 mls/hr 08/26/19 08:00 08:59 Pepcid 20 Mg Premixed Ivpb - IVPB 100 mls/hr DAILY@0800 [facility] Administration Propofol 1,000,000 mcg in 100 mls @ 34.7 mls/hr 08/25/19 18:45 08/26/19 19:00 Diprivan - IVPB 30 mcg/kg/min TITR [facility] 20.82 mls/hr Administration Protocol 50 MCG/KG/MIN Fentanyl 500 mcg/ Dextrose 100 mls @ 20 mls/hr 08/25/19 18:45 08/26/19 19:00 IVPB 50 mcg/hr TITR [facility] 10 mls/hr Administration 100 MCG/HR Piperacillin Sod/Tazobactam 50 mls @ 100 mls/hr 08/26/19 02:00 08/27/19 11:23 Sod 2.25 gm/ Dextrose IVPB 100 mls/hr Q8H-IV [facility] Administration Protocol Insulin Aspart 1 vial 08/26/19 07:00 08/27/19 06:08 Novolog Vial Sliding Scale - SQ Not Given ACHS [facility] Protocol Levothyroxine Sodium 100 mcg 08/26/19 10:00 08/27/19 11:23 Synthroid Injection - IVPUSH 100 mcg DAILY [facility] Administration Mupirocin 1 applic 08/27/19 10:00 08/27/19 11:24 Bactroban Ointment (For Decolonization) - NS 09/01/19 09:59 1 applic BID [facility] Administration Impression 1. LUCY 2. fluid overload 3. acute respiratory failure 4. hypothyroidism with tsh of 100 5. 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 urine tox pos for mdma 7. mild rhabdo Plan - will dialyze today - cont lasix - follow serologies - renal function worsening - echo reviewed - discussed with ICU team - cont vent support - daily cxr - nepro for feeds
[2019-08-27] MEDS: FENTANYL INJECTION 500 MCG in DEXTROSE 5%-WATER - 90 ML IVPB SCH ×2 (11:49→21:57)
[2019-08-27] MEDS ORDERED: LIDOCAINE HCL 1%, 10 MG/ML (20ML VIAL) ONE (11:57)
[2019-08-27] MEDS ORDERED: LIDOCAINE HCL 2% 100 MG/5 ML DISP.SYRIN ONE (11:57)
[2019-08-27] MEDS ORDERED: LIDOCAINE HCL 1%, 10 MG/ML (50 mL VIAL) SQ ONE (13:00)
--- NOTE | 2019-08-27 14:04 | PN ---
Physical Exam: SUBJECTIVE: Patient seen and examined in the morning. No acute events overnight. No events on telemetry monitoring. Patient is intubated and sedated, unable to communicate with examiner. OBJECTIVE: Vital Signs Period Temp Pulse Resp BP Sys/Amos Pulse Ox Last 24 Hr 96.9 F-97.8 F 54-64 16-24 129-147/54-106 97-100 GENERAL: The patient is intubated and sedated. HEAD: Atraumatic. EYES: PERRLA, Scleral edema, exophthalmos improving. ENT: Patient is biting down on tongue causing, dry blood present. Moist mucous membranes. NECK: Trachea midline, full range of motion, supple. LUNGS:Ventilator sounds, clear. HEART: Regular rate and rhythm, S1, S2 without murmur, rub or gallop. ABDOMEN: Soft, nontender, nondistended, normoactive bowel sounds EXTREMITIES: 2+ pulses, warm, well-perfused, 2+ pitting edema NEUROLOGICAL:Unable to assess. SKIN: Warm, dry, no erythema. Laboratory Results - last 24 hr 08/25/19 08/26/19 08/26/19 13:24 17:45 21:25 WBC 9.6 RBC 2.89 L Hgb 8.6 L Hct 25.8 L D MCV 89.3 MCH 29.6 MCHC 33.1 RDW 18.2 H Plt Count 269 D MPV 8.5 Absolute Neuts (auto) 8.3 H Neutrophils % 86.5 H Lymphocytes % 11.9 D Monocytes % 1.5 L Eosinophils % 0.0 Basophils % 0.1 Nucleated RBC % 0 Sodium Potassium Chloride Carbon Dioxide Anion Gap BUN Creatinine Est GFR (CKD-EPI)AfAm Est GFR (CKD-EPI)NonAf POC Glucometer 133 Random Glucose Calcium Phosphorus Magnesium Total Bilirubin AST ALT Alkaline Phosphatase Total Protein Albumin Free T3 0.5 L 08/26/19 08/27/19 08/27/19 22:10 05:23 05:45 WBC RBC Hgb Hct MCV MCH MCHC RDW Plt Count MPV Absolute Neuts (auto) Neutrophils % Lymphocytes % Monocytes % Eosinophils % Basophils % Nucleated RBC % Sodium 142 Potassium 4.9 Chloride 112 H Carbon Dioxide 17 L Anion Gap 14 BUN 75.3 H Creatinine 8.2 H* Est GFR (CKD-EPI)AfAm 5.89 Est GFR (CKD-EPI)NonAf 5.08 POC Glucometer 138 149 Random Glucose 152 H Calcium 6.7 L* Phosphorus 7.3 H Magnesium 1.8 Total Bilirubin 0.4 AST 48 H ALT 80 H Alkaline Phosphatase 737 H Total Protein 6.1 L Albumin 2.0 L Free T3 08/27/19 08/27/19 05:45 12:41 WBC 10.5 H RBC 2.78 L Hgb 8.3 L Hct 25.1 L MCV 90.3 MCH 29.9 MCHC 33.1 RDW 18.5 H Plt Count 258 MPV 8.8 Absolute Neuts (auto) 7.8 Neutrophils % 74.7 Lymphocytes % 23.4 D Monocytes % 1.8 L Eosinophils % 0.0 Basophils % 0.1 Nucleated RBC % 0 Sodium Potassium Chloride Carbon Dioxide Anion Gap BUN Creatinine Est GFR (CKD-EPI)AfAm Est GFR (CKD-EPI)NonAf POC Glucometer 115 Random Glucose Calcium Phosphorus Magnesium Total Bilirubin AST ALT Alkaline Phosphatase Total Protein Albumin Free T3 Active Medications Generic Name Dose Route Start Last Admin Trade Name Freq PRN Reason Stop Dose Admin Albuterol Sulfate 1 amp 08/25/19 14:57 Ventolin 0.083% Nebulizer Soln - NEB Q6H PRN SHORT OF BREATH/WHEEZING Albuterol/Ipratropium 1 amp 08/25/19 14:57 Duoneb - NEB Q4H PRN SHORTNESS OF BREATH Chlorhexidine Gluconate 1 applic 08/27/19 22:00 Hibiclens For Decolonization - TP HS [facility] Hydrocortisone Sodium Succinate 100 mg 08/25/19 15:00 08/27/19 06:08 Solu-Cortef - IVPUSH 100 mg Q8H [facility] Administration Famotidine/Sodium Chloride 20 mg in 50 mls @ 100 mls/hr 08/26/19 08:00 08:59 Pepcid 20 Mg Premixed Ivpb - IVPB 100 mls/hr DAILY@0800 [facility] Administration Propofol 1,000,000 mcg in 100 mls @ 34.7 mls/hr 08/25/19 18:45 08/26/19 19:00 Diprivan - IVPB 30 mcg/kg/min TITR [facility] 20.82 mls/hr Administration Protocol 50 MCG/KG/MIN Fentanyl 500 mcg/ Dextrose 100 mls @ 20 mls/hr 08/25/19 18:45 08/27/19 11:49 IVPB 50 mcg/hr TITR [facility] 10 mls/hr Administration 100 MCG/HR Piperacillin Sod/Tazobactam 50 mls @ 100 mls/hr 08/26/19 02:00 08/27/19 11:23 Sod 2.25 gm/ Dextrose IVPB 100 mls/hr Q8H-IV [facility] Administration Protocol Sodium Chloride 250 mls @ 3,000 mls/hr 08/27/19 11:48 Normal Saline - IV 08/28/19 11:48 PRN PRN Hypotension during Dialysis Insulin Aspart 1 vial 08/26/19 07:00 08/27/19 12:57 Novolog Vial Sliding Scale - SQ Not Given ACHS [facility] Protocol Levothyroxine Sodium 100 mcg 08/26/19 10:00 08/27/19 11:23 Synthroid Injection - IVPUSH 100 mcg DAILY [facility] Administration Mupirocin 1 applic 08/27/19 10:00 08/27/19 11:24 Bactroban Ointment (For Decolonization) - NS 09/01/19 09:59 1 applic BID [facility] Administration ASSESSMENT/PLAN: 54 F with PMH of Thyroid cancer s/p thyroidectomy, IDDM, COPD, unspecified mental health disorders, anemia, HTN, HLD who presented with AMS likely due to myxedema coma. Patient presents with renal failure and combined metabolic and hypercapnic respiratory acidosis requiring NIPPV. Pulmonary -Patient is intubated. Ventilator on volume control -CXR is poor penetration. ET tube in place. No improvement from yesterday. -Echo shows pleural effusions present -Did not attempt wean today, will continue monitoring mental status -ABG is improving, pH of 7.32 today, CO2 of 33.2 -Hx of COPD, will be getting Hyrdocortisone Sodium 100 mg IV Q8H -Duonebs Q4H PRN -Albuterol Nebulizer Q6H PRN Renal -BUN/Cr of 75.3/8.2 -Nephrology consulted, appreciate recs. -Renal U/S negative -Mahoney catheter in -+360 balance -Weight has not changed 115.666 -HD today. Central line in. -Urine lytes Endocrine -Myxedema coma (TSH 100, Free T4 0.24 on admission) -Hx of hypothyroidism s/p thyroidectomy -Hypothermic on presentation, afebrile now -Hx of IDDM -Hydrocortisone 100 mg Q8H IV for possible adrenal insufficiency -Sliding scale insulin -Endocrine consulted, appreciate recs -Levothyroxine 100 mcg IV Heme/Onc -Patient has hx of anemia -Hgb dropped to 5.7 today -Transfusing 2 units PRBC, will repeat CBC between transfusions -FOBT ID -ID consulted, appreciate recs -Continuing empiric Zoysn Q8H -Blood culture pending -Urine culture pending Neuro/Psych -Head CT showed mild ventriculomegaly -Constant monitoring -Utox showed MDMA+, likely false positive from psych medications. Cardiac -Echo shows small pericardial effusion (less than 1 cm) -EF of 65-70% -Pleural effusions present -Trop negative x3 -BP Stable Dispo: Continue monitoring in ICU DVT: SCD F: No IV Fluids at the moment E: Monitor CMP N: NPO Visit type - Emergency Visit Emergency Visit: Yes ED Registration Date: 08/25/19 Care time: The patient presented to the Emergency Department on the above date and was hospitalized for further evaluation of their emergent condition. - New Patient This patient is new to me today: No - Critical Care Critical Care patient: Yes Total Critical Care Time (in minutes): 45 Critical Care Statement: The care of this patient involved high complexity decision making to prevent further life threatening deterioration of the patient 's condition and/or to evaluate & treat vital organ system(s) failure or risk of failure. ATTENDING PHYSICIAN STATEMENT I saw and evaluated the patient. I reviewed the resident's note and discussed the case with the resident. I agree with the resident's findings and plan as documented. SUBJECTIVE: OBJECTIVE: ASSESSMENT AND PLAN:
--- NOTE | 2019-08-27 15:32 | PN ---
Progress Note (short form) - Note Progress Note: Intubated, sedated Undergoing HD Vital Signs Period Temp Pulse Resp BP Sys/Amos Pulse Ox Last 24 Hr 96.9 F-98.2 F 54-64 16-24 129-147/54-106 97-100 PE: Intubated, sedated Neck: Supple LUngs: CTA CVs: S1S2 Abd: Benign Ext CMP Sodium 142 mmol/L (136-145) 08/27/19 05:45 Potassium 4.9 mmol/L (3.5-5.1) 08/27/19 05:45 Chloride 112 mmol/L (98-107) H 08/27/19 05:45 Carbon Dioxide 17 mmol/L (21-32) L 08/27/19 05:45 Anion Gap 14 MMOL/L (8-16) 08/27/19 05:45 BUN 75.3 mg/dL (7-18) H 08/27/19 05:45 Creatinine 8.2 mg/dL (0.55-1.3) H* 08/27/19 05:45 Est GFR (CKD-EPI)AfAm 5.89 08/27/19 05:45 Est GFR (CKD-EPI)NonAf 5.08 08/27/19 05:45 POC Glucometer 115 UNITS (80-120) 08/27/19 12:41 Random Glucose 152 mg/dL (74-106) H 08/27/19 05:45 Lactic Acid 0.7 mmol/L (0.4-2.0) 08/25/19 11:00 Calcium 6.7 mg/dL (8.5-10.1) L* 08/27/19 05:45 Phosphorus 7.3 mg/dL (2.5-4.9) H 08/27/19 05:45 Magnesium 1.8 mg/dL (1.8-2.4) 08/27/19 05:45 Total Bilirubin 0.4 mg/dL (0.2-1) 08/27/19 05:45 Direct Bilirubin 0.2 mg/dL (0.0-0.2) 08/26/19 05:54 AST 48 U/L (15-37) H 08/27/19 05:45 ALT 80 U/L (13-61) H 08/27/19 05:45 Alkaline Phosphatase 737 U/L (45-117) H 08/27/19 05:45 Ammonia 24.90 umol/L (11-32) 08/25/19 11:00 Creatine Kinase 1133 U/L (26-192) H 08/26/19 05:54 Creatine Kinase Index 0.8 % (0.0-5.0) 08/26/19 05:54 CK-MB (CK-2) 9.5 ng/mL (0.5-3.6) H 08/26/19 05:54 Troponin I < 0.02 ng/ml (0.00-0.05) 08/26/19 05:54 B-Natriuretic Peptide 3649.4 pg/ml (5-125) H 08/25/19 11:00 Total Protein 6.1 g/dl (6.4-8.2) L 08/27/19 05:45 Albumin 2.0 g/dl (3.4-5.0) L 08/27/19 05:45 Beta-Hydroxybutyrate 1.1 mg/dL (0.2-2.8) 08/25/19 11:00 TSH 100.00 uIU/ml (0.358-3.74) H 08/25/19 11:00 Free T4 0.24 ng/dl (0.76-1.46) L 08/25/19 11:00 Thyroxine (T4) 3.2 ug/dl (4.5-13.9) L 08/25/19 11:00 Free T3 0.5 pg/ml (2.0-4.4) L 08/25/19 13:24 Resin T3 Uptake 30.3 % (30-39) 08/26/19 05:54 Cortisol Pre Dose Time 40.10 mcg/dL (.) 08/25/19 12:46 Current Medications Generic Name Dose Route Start Last Admin Trade Name Freq PRN Reason Stop Dose Admin Albuterol Sulfate 1 amp 08/25/19 14:57 Ventolin 0.083% Nebulizer Soln - NEB Q6H PRN SHORT OF BREATH/WHEEZING Albuterol/Ipratropium 1 amp 08/25/19 14:57 Duoneb - NEB Q4H PRN SHORTNESS OF BREATH Chlorhexidine Gluconate 1 applic 08/27/19 22:00 Hibiclens For Decolonization - TP HS [facility]OE Hydrocortisone Sodium Succinate 100 mg 08/25/19 15:00 08/27/19 06:08 Solu-Cortef - IVPUSH 100 mg Q8H [facility] Administration Famotidine/Sodium Chloride 20 mg in 50 mls @ 100 mls/hr 08/26/19 08:00 08:59 Pepcid 20 Mg Premixed Ivpb - IVPB 100 mls/hr DAILY@0800 [facility] Administration Propofol 1,000,000 mcg in 100 mls @ 34.7 mls/hr 08/25/19 18:45 08/26/19 19:00 Diprivan - IVPB 30 mcg/kg/min TITR ZOE 20.82 mls/hr Administration Protocol 50 MCG/KG/MIN Fentanyl 500 mcg/ Dextrose 100 mls @ 20 mls/hr 08/25/19 18:45 08/27/19 11:49 IVPB 50 mcg/hr TITR ZOE 10 mls/hr Administration 100 MCG/HR Piperacillin Sod/Tazobactam 50 mls @ 100 mls/hr 08/26/19 02:00 08/27/19 11:23 Sod 2.25 gm/ Dextrose IVPB 100 mls/hr Q8H-IV [facility]OE Administration Protocol Sodium Chloride 250 mls @ 3,000 mls/hr 08/27/19 11:48 Normal Saline - IV 08/28/19 11:48 PRN PRN Hypotension during Dialysis Insulin Aspart 1 vial 08/26/19 07:00 08/27/19 12:57 Novolog Vial Sliding Scale - SQ Not Given ACHS ZOE Protocol Levothyroxine Sodium 100 mcg 08/26/19 10:00 08/27/19 11:23 Synthroid Injection - IVPUSH 100 mcg DAILY [facility] Administration Mupirocin 1 applic 08/27/19 10:00 08/27/19 11:24 Bactroban Ointment (For Decolonization) - NS 09/01/19 09:59 1 applic BID ZOE Administration AP: Respiratory failure AMS/ Toxic metabolic encephalopathy Hypothyrodism Throid ca s/p Thyroidectomy Morbid obesity LUCY on CKD DM Anemia with drop in H/H H/o Renal stones Elevated Alk Phos Ventilatory support Undergoing HD IV Abx Doubt primary problem is hypothyroidism and myxedema coma Continue IV LT4 100mcg QD and IV hydrocortiosne Taper Hydrocortisone BGM Q 6hrs Novolog SS coverage Consider GI Evaluation Will f/u Problem List - Problems (1) AMS (altered mental status) Code(s): R41.82 - ALTERED MENTAL STATUS, UNSPECIFIED (2) Acute metabolic encephalopathy Code(s): G93.41 - METABOLIC ENCEPHALOPATHY (3) Acute renal failure Code(s): N17.9 - ACUTE KIDNEY FAILURE, UNSPECIFIED (4) Diabetes Code(s): E11.9 - TYPE 2 DIABETES MELLITUS WITHOUT COMPLICATIONS (5) Hypercapnic respiratory failure Code(s): J96.92 - RESPIRATORY FAILURE, UNSPECIFIED WITH HYPERCAPNIA (6) Hypothermia Code(s): T68.XXXA - HYPOTHERMIA, INITIAL ENCOUNTER (7) Metabolic acidosis Code(s): E87.2 - ACIDOSIS (8) Morbid obesity Code(s): E66.01 - MORBID (SEVERE) OBESITY DUE TO EXCESS CALORIES
--- NOTE | 2019-08-27 16:32 | PN ---
Progress Note (short form) - Note Progress Note: 54 year old female history of HTN, HLD, DM COPD, Anemia thyroid cancer. Patient came with ams and had CHF, renal failure , anemia . Paitnet was intubated, she was hypothermic. She is on sedation . Paitent has ct head and there is mild dilation of ventricles. There is no evidence of seizure like activity , no high grade fever or neck stiffness. Patient has no head trauma Patient was awake on reduced sedation earlier this morning. There is no seizure. Patient is getting dialysis today and has been sleeping. NEUROLOGICAL EXAMINATION sedated and intubated , neck is supple reponds to painful stimuli and opens eye to verbal command pupils reactive no face asymmetry rest of neuro exam is not possible ct head reviewed and mild ventricular dilatation and this could be due to intercurrent illness Assessment/Plan4 year old female history of HTN, HLD, DM COPD, Anemia thyroid cancer. Patient came with ams and had CHF, renal failure , anemia . Patient has Metabolic encephalopathy, there is no evidence of status epilepticus, meningitis or stroke Plan: continue supportive care for now, would continue to follow Thanking you so much Hill Hayden MD
[2019-08-27 20:11] LABS: EPI CELLS 4.6 /HPF (0-5/HPF); HYALINE CASTS 41 /lpf (0-8); PH,URINE 5.5 (5.0-8.0); URINE APPEARANCE TURBID; URINE BILIRUBIN NEGATIVE (NEGATIVE); URINE COLOR YELLOW; URINE GLUCOSE (UA) NEGATIVE (NEGATIVE); URINE KETONE NEGATIVE (NEGATIVE); URINE LEUK ESTERASE 2+ (NEGATIVE); URINE NITRITE NEGATIVE (NEGATIVE); URINE PROTEIN 3+ (NEGATIVE); URINE UROBILINOGEN 0.2 mg/dL (0.2-1.0); URINE WBC 321 /hpf (0-5)
[2019-08-27 20:28] LABS: URINE BACTERIA FEW /hpf (NEGATIVE)
[2019-08-27 20:29] LABS: YEAST MANY (NEGATIVE)
--- NOTE | 2019-08-27 20:31 | PN ---
Progress Note, Physician History of Present Illness: Chart reviewed, events noted. Pt is intubated/sedated. Remains afebrile. - Current Medication List Current Medications: Active Medications Albuterol Sulfate (Ventolin 0.083% Nebulizer Soln -) 1 amp NEB Q6H PRN PRN Reason: SHORT OF BREATH/WHEEZING Albuterol/Ipratropium (Duoneb -) 1 amp NEB Q4H PRN PRN Reason: SHORTNESS OF BREATH Chlorhexidine Gluconate (Hibiclens For Decolonization -) 1 applic TP HS [facility] Hydrocortisone Sodium Succinate (Solu-Cortef -) 100 mg IVPUSH Q8H [facility] Last Admin: 08/27/19 17:01 Dose: Not Given Famotidine/Sodium Chloride (Pepcid 20 Mg Premixed Ivpb -) 20 mg in 50 mls @ 100 mls/hr IVPB DAILY@0800 [facility] Last Admin: 08/27/19 08:59 Dose: 100 mls/hr Propofol (Diprivan -) 1,000,000 mcg in 100 mls @ 34.7 mls/hr IVPB TITR [facility]; Protocol Last Titration: 08/27/19 19:02 Dose: 30 mcg/kg/min, 20.82 mls/hr Fentanyl 500 mcg/ Dextrose 100 mls @ 20 mls/hr IVPB TITR [facility] Last Admin: 08/27/19 11:49 Dose: 50 mcg/hr, 10 mls/hr Piperacillin Sod/Tazobactam (Sod 2.25 gm/ Dextrose) 50 mls @ 100 mls/hr IVPB Q8H-IV [facility]; Protocol Last Admin: 08/27/19 19:05 Dose: 100 mls/hr Sodium Chloride (Normal Saline -) 250 mls @ 3,000 mls/hr IV PRN PRN PRN Reason: Hypotension during Dialysis Stop: 08/28/19 11:48 Insulin Aspart (Novolog Vial Sliding Scale -) 1 vial SQ ACHS [facility]; Protocol Last Admin: 08/27/19 19:02 Dose: Not Given Levothyroxine Sodium (Synthroid Injection -) 100 mcg IVPUSH DAILY [facility] Last Admin: 08/27/19 11:23 Dose: 100 mcg Mupirocin (Bactroban Ointment (For Decolonization) -) 1 applic NS BID [facility] Stop: 09/01/19 09:59 Last Admin: 08/27/19 11:24 Dose: 1 applic - Objective Vital Signs: Vital Signs Temperature 98.2 F 08/27/19 14:40 Pulse Rate 56 L 08/27/19 20:00 Respiratory Rate 24 H 08/27/19 20:00 Blood Pressure 143/64 08/27/19 20:00 O2 Sat by Pulse Oximetry (%) 100 08/27/19 20:00 Constitutional: Yes: No Distress Cardiovascular: Yes: Regular Rate and Rhythm Respiratory: Yes: Diminished, Mechanically Ventilated Gastrointestinal: Yes: Normal Bowel Sounds, Soft, Abdomen, Obese Genitourinary: Yes: Mahoney Present Edema: Yes Edema: LLE: 1+, RLE: 1+ Integumentary: Yes: WNL, Tattoos Neurological: Yes: Other (on sedation) Labs: CBC, BMP 08/27/19 05:45 08/27/19 05:45 INR, PTT INR 0.89 (0.83-1.09) 08/25/19 11:00 Laboratory Results - last 24 hr 08/25/19 08/26/19 08/26/19 13:24 21:25 22:10 WBC 9.6 RBC 2.89 L Hgb 8.6 L Hct 25.8 L D MCV 89.3 MCH 29.6 MCHC 33.1 RDW 18.2 H Plt Count 269 D MPV 8.5 Absolute Neuts (auto) 8.3 H Neutrophils % 86.5 H Lymphocytes % 11.9 D Monocytes % 1.5 L Eosinophils % 0.0 Basophils % 0.1 Nucleated RBC % 0 Sodium Potassium Chloride Carbon Dioxide Anion Gap BUN Creatinine Est GFR (CKD-EPI)AfAm Est GFR (CKD-EPI)NonAf POC Glucometer 138 Random Glucose Calcium Phosphorus Magnesium Total Bilirubin AST ALT Alkaline Phosphatase Total Protein Albumin Free T3 0.5 L Urine Color Urine Appearance Urine pH Ur Specific [place] Urine Protein Urine Glucose (UA) Urine Ketones Urine Blood Urine Nitrite Urine Bilirubin Urine Urobilinogen Ur Leukocyte Esterase Urine WBC (Auto) Urine Casts (Auto) U Epithel Cells (Auto) 08/27/19 08/27/19 08/27/19 05:23 05:45 05:45 WBC 10.5 H RBC 2.78 L Hgb 8.3 L Hct 25.1 L MCV 90.3 MCH 29.9 MCHC 33.1 RDW 18.5 H Plt Count 258 MPV 8.8 Absolute Neuts (auto) 7.8 Neutrophils % 74.7 Lymphocytes % 23.4 D Monocytes % 1.8 L Eosinophils % 0.0 Basophils % 0.1 Nucleated RBC % 0 Sodium 142 Potassium 4.9 Chloride 112 H Carbon Dioxide 17 L Anion Gap 14 BUN 75.3 H Creatinine 8.2 H* Est GFR (CKD-EPI)AfAm 5.89 Est GFR (CKD-EPI)NonAf 5.08 POC Glucometer 149 Random Glucose 152 H Calcium 6.7 L* Phosphorus 7.3 H Magnesium 1.8 Total Bilirubin 0.4 AST 48 H ALT 80 H Alkaline Phosphatase 737 H Total Protein 6.1 L Albumin 2.0 L Free T3 Urine Color Urine Appearance Urine pH Ur Specific [place] Urine Protein Urine Glucose (UA) Urine Ketones Urine Blood Urine Nitrite Urine Bilirubin Urine Urobilinogen Ur Leukocyte Esterase Urine WBC (Auto) Urine Casts (Auto) U Epithel Cells (Auto) 08/27/19 08/27/19 08/27/19 12:41 18:30 18:37 WBC RBC Hgb Hct MCV MCH MCHC RDW Plt Count MPV Absolute Neuts (auto) Neutrophils % Lymphocytes % Monocytes % Eosinophils % Basophils % Nucleated RBC % Sodium Potassium Chloride Carbon Dioxide Anion Gap BUN Creatinine Est GFR (CKD-EPI)AfAm Est GFR (CKD-EPI)NonAf POC Glucometer 115 91 Random Glucose Calcium Phosphorus Magnesium Total Bilirubin AST ALT Alkaline Phosphatase Total Protein Albumin Free T3 Urine Color Yellow Urine Appearance Turbid Urine pH 5.5 Ur Specific [place] 1.020 Urine Protein 3+ H Urine Glucose (UA) Negative Urine Ketones Negative Urine Blood 1+ H Urine Nitrite Negative Urine Bilirubin Negative Urine Urobilinogen 0.2 Ur Leukocyte Esterase 2+ H Urine WBC (Auto) 321 Urine Casts (Auto) 41 U Epithel Cells (Auto) 4.6 Microbiology 08/25/19 12:40 Urine - Urine Mahoney Urine Culture - Final Staphylococcus Epidermidis 08/25/19 12:33 Blood - Peripheral Venous Blood Culture - Preliminary NO GROWTH OBTAINED AFTER 48 HOURS, INCUBATION TO CONTINUE FOR 3 DAYS. 08/25/19 12:33 Blood - Peripheral Venous Blood Culture - Preliminary NO GROWTH OBTAINED AFTER 48 HOURS, INCUBATION TO CONTINUE FOR 3 DAYS. - ....Imaging Chest X-ray: Report Reviewed Problem List - Problems (1) LUCY (acute kidney injury) Code(s): N17.9 - ACUTE KIDNEY FAILURE, UNSPECIFIED (2) AMS (altered mental status) Code(s): R41.82 - ALTERED MENTAL STATUS, UNSPECIFIED (3) Acute metabolic encephalopathy Code(s): G93.41 - METABOLIC ENCEPHALOPATHY (4) Acute respiratory failure Code(s): J96.00 - ACUTE RESPIRATORY FAILURE, UNSP W HYPOXIA OR HYPERCAPNIA (5) Anemia Code(s): D64.9 - ANEMIA, UNSPECIFIED (6) COPD (chronic obstructive pulmonary disease) Code(s): J44.9 - CHRONIC OBSTRUCTIVE PULMONARY DISEASE, UNSPECIFIED (7) Diabetes Code(s): E11.9 - TYPE 2 DIABETES MELLITUS WITHOUT COMPLICATIONS (8) HTN (hypertension) Code(s): I10 - ESSENTIAL (PRIMARY) HYPERTENSION (9) Hypercapnic respiratory failure Code(s): J96.92 - RESPIRATORY FAILURE, UNSPECIFIED WITH HYPERCAPNIA (10) Hypothermia Code(s): T68.XXXA - HYPOTHERMIA, INITIAL ENCOUNTER (11) Morbid obesity Code(s): E66.01 - MORBID (SEVERE) OBESITY DUE TO EXCESS CALORIES (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 - MYXEDEMA COMA (13) Thyroid cancer Code(s): C73 - MALIGNANT NEOPLASM OF THYROID GLAND Assessment/Plan Acute respiratory failure on MV/sedation Acute metabolic encephalopathy AMS Myxedema coma DM LUCY on CKD Obesity Hx of thyroid CA s/p thyroidectomy HTN HLD COPD Anemia --pt remains intubated/sedated --continue empiric antibiotics --blood cultures neg 48h --monitor wbc trend, elevated today --on HD rest of care per ICU cc: 40 min
[2019-08-27] MEDS: PROPOFOL 1,000,000 MCG/100 ML VIAL IVPB SCH (21:49)
[2019-08-27] MEDS: CHLORHEXIDINE GLUCONATE 4% CLEANSER FOR DECOLONIZATION TP SCH (21:59)
[2019-08-28] MEDS: PROPOFOL 1,000,000 MCG/100 ML VIAL IVPB SCH ×5 (00:59→16:57)
[2019-08-28] MEDS ORDERED: PIPERACILLIN/TAZOBACTAM 2.25 GM VIAL IVPB ONE ×3 (01:30→16:36)
[2019-08-28] MEDS ORDERED: DEXTROSE 5%-WATER - 50 ML IVPB ONE ×3 (01:31→16:36)
[2019-08-28] MEDS: PIPERACILLIN/TAZOB 2.25 GM 2.25 GM in DEXTROSE 5%-WATER - 50 ML IVPB SCH ×3 (01:34→17:26)
[2019-08-28] MEDS: HYDROCORTISONE SOD SUCCINATE 100 MG/2 ML VIAL IVPUSH SCH ×3 (06:02→23:02)
[2019-08-28] MEDS: INSULIN SLIDING SCALE (NOVOLOG) 1 VIAL SQ SCH ×4 (06:15→23:08)
[2019-08-28] MEDS: FENTANYL INJECTION 500 MCG in DEXTROSE 5%-WATER - 90 ML IVPB SCH ×2 (06:49→14:29)
[2019-08-28 07:56] LABS: BASO % 0.1 % (0-2.0); HEMATOCRIT 24.6 % (32.4-45.2); HEMOGLOBIN 8.4 GM/dL (10.7-15.3); LYMPH % 14.5 % (8-40); MCH 30.5 pg (25.7-33.7); MEAN CELL VOLUME 89.5 fl (80-96); MEAN PLT VOLUME 8.6 fl (7.5-11.1); MONO % 1.5 % (3.8-10.2); NEUT % 83.9 % (42.8-82.8); PLATELET COUNT 263 K/MM3 (134-434); RBC 2.75 M/mm3 (3.60-5.2); WHITE BLOOD COUNT 8.5 K/mm3 (4.0-10.0)
[2019-08-28 08:17] LABS: ALBUMIN 1.8 g/dl (3.4-5.0); BILIRUBIN,TOTAL 0.4 mg/dL (0.2-1); BLOOD UREA NITROGEN 53.4 mg/dL (7-18); MAGNESIUM 1.8 mg/dL (1.8-2.4); PHOSPHOROUS 5.5 mg/dL (2.5-4.9); POTASSIUM 4.1 mmol/L (3.5-5.1); TOT PROT 5.7 g/dl (6.4-8.2)
--- NOTE | 2019-08-28 08:22 | PN ---
Progress Note, Physician Chief Complaint: orally intubated and sedated. Opens eyes to verbal stimuli and overbreathing the vent History of Present Illness: Patient is a 54 year old morbid obese female with a significant PMD Htn, HLD, DM , COPD, anemia, thyroid cancer 6 years ago. Patient brought into the ED for altered mental status and acute shortness of breath. She was found to have an elevated TSH, low t4 and hypothermic (96f-97-on mariana hugger). Urine is + for ecstasy. She also has renal failure with a creat of 7.7, bun of 65,mag 1.6, elevated ast/alt. In the ED she was placed on bipap & admitted for myxedema coma, acute renal failure, acute metabolic encephalopathy, metabolic acidosis, hypercapneic respiratory failure. Repeat abg without improvement of acidosis, and elevated co2. patient intubated to protect airway. - Current Medication List Current Medications: Active Medications Albuterol Sulfate (Ventolin 0.083% Nebulizer Soln -) 1 amp NEB Q6H PRN PRN Reason: SHORT OF BREATH/WHEEZING Albuterol/Ipratropium (Duoneb -) 1 amp NEB Q4H PRN PRN Reason: SHORTNESS OF BREATH Chlorhexidine Gluconate (Hibiclens For Decolonization -) 1 applic TP HS [facility] Last Admin: 08/27/19 21:59 Dose: 1 applic Hydrocortisone Sodium Succinate (Solu-Cortef -) 100 mg IVPUSH Q8H [facility] Last Admin: 08/28/19 06:02 Dose: 100 mg Famotidine/Sodium Chloride (Pepcid 20 Mg Premixed Ivpb -) 20 mg in 50 mls @ 100 mls/hr IVPB DAILY@0800 [facility] Last Admin: 08/27/19 08:59 Dose: 100 mls/hr Propofol (Diprivan -) 1,000,000 mcg in 100 mls @ 34.7 mls/hr IVPB TITR [facility]; Protocol Last Titration: 08/28/19 06:29 Dose: 40 mcg/kg/min, 27.76 mls/hr Fentanyl 500 mcg/ Dextrose 100 mls @ 20 mls/hr IVPB TITR [facility] Last Titration: 08/28/19 07:30 Dose: 75 mcg/hr, 15 mls/hr Piperacillin Sod/Tazobactam (Sod 2.25 gm/ Dextrose) 50 mls @ 100 mls/hr IVPB Q8H-IV [facility]; Protocol Last Admin: 08/28/19 01:34 Dose: 100 mls/hr Sodium Chloride (Normal Saline -) 250 mls @ 3,000 mls/hr IV PRN PRN PRN Reason: Hypotension during Dialysis Stop: 08/28/19 11:48 Insulin Aspart (Novolog Vial Sliding Scale -) 1 vial SQ ACHS [facility]; Protocol Last Admin: 08/28/19 06:15 Dose: 4 units Levothyroxine Sodium (Synthroid Injection -) 100 mcg IVPUSH DAILY [facility] Last Admin: 08/27/19 11:23 Dose: 100 mcg Mupirocin (Bactroban Ointment (For Decolonization) -) 1 applic NS BID [facility] Stop: 09/01/19 09:59 Last Admin: 08/27/19 21:59 Dose: 1 applic - Objective Vital Signs: Vital Signs Temperature 98.4 F 08/28/19 06:00 Pulse Rate 68 08/28/19 08:15 Respiratory Rate 24 H 08/28/19 08:15 Blood Pressure 129/70 08/28/19 06:00 O2 Sat by Pulse Oximetry (%) 99 08/28/19 08:15 Additional Findings/Remarks: Constitutional: Yes: Other (Intubated and sedated) Eyes: Yes: Other (scleral edema) HENT: Yes: WNL, Atraumatic, Normocephalic Neck: Yes: WNL, Supple, Trachea Midline. RIJ dialysis cath noted (tip @ SVC) Cardiovascular: Yes: Bradycardia (HR 50s) Respiratory: Yes: Mechanically Ventilated (orally intubated on AC, FIO2 40) Gastrointestinal: Yes: Soft, Abdomen, Obese ...Rectal Exam: Yes: Deferred Genitourinary: Yes: Mahoney Present Breast(s): Yes: WNL Extremities: Yes: Delayed Capillary Refill Edema: Yes Edema: LUE: 2+, RUE: 2+, LLE: 3+, RLE: 3+ Peripheral Pulses WNL: No Peripheral Pulses: Left Radial: 1+, Right Radial: 1+, Left Doralis Pedis: 1+, Right Dorsalis Pedis: 1+, Left Femoral: 1+, Right Femoral: 1+ Integumentary: Yes: WNL Neurological: Yes: Other (Intubated and sedated) Psychiatric: Yes: Other (Intubated and sedated) Labs: CBC, BMP 08/28/19 06:00 INR, PTT INR 0.89 (0.83-1.09) 08/25/19 11:00 Problem List - Problems (1) HTN (hypertension) Assessment/Plan: on lisinipril/ nifedipine at home being held will restart when extubated if needed Code(s): I10 - ESSENTIAL (PRIMARY) HYPERTENSION (2) HLD (hyperlipidemia) Assessment/Plan: c/w atorvastatin when extubated Code(s): E78.5 - HYPERLIPIDEMIA, UNSPECIFIED (3) COPD (chronic obstructive pulmonary disease) Assessment/Plan: duo nebs q4h mechanically ventilated on AC Code(s): J44.9 - CHRONIC OBSTRUCTIVE PULMONARY DISEASE, UNSPECIFIED (4) Anemia Assessment/Plan: recieved 1 u PRBC (2u ordered however son refused 2nd unit) Hgb 8.4 continue to monitor Code(s): D64.9 - ANEMIA, UNSPECIFIED (5) Thyroid cancer Code(s): C73 - MALIGNANT NEOPLASM OF THYROID GLAND (6) Acute respiratory failure Assessment/Plan: orally intuabted not able to wean at this time oral care as per nursing turn and reposition appreciate ICU level of care Code(s): J96.00 - ACUTE RESPIRATORY FAILURE, UNSP W HYPOXIA OR HYPERCAPNIA (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 Code(s): 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.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 ABUSE, UNCOMPLICATED (8) LUCY (acute kidney injury) Assessment/Plan: Cr 6.0 HD done yesterday, planned for another session today nephrology following and will dialyze today avoid nephrotoxic agents Code(s): N17.9 - ACUTE KIDNEY FAILURE, UNSPECIFIED (9) Acute metabolic encephalopathy Assessment/Plan: sedated on propofol amd fentanyl following simple commands during sedation interruption Code(s): G93.41 - METABOLIC ENCEPHALOPATHY (10) Morbid obesity Code(s): E66.01 - MORBID (SEVERE) OBESITY DUE TO EXCESS CALORIES (11) Prophylactic measure Assessment/Plan: FEN no additional IVF HD planned for today again monitor electrolytes DVT SCDs Dispo requiring ICU care full code discharge planning Code(s): Z29.9 - ENCOUNTER FOR PROPHYLACTIC MEASURES, UNSPECIFIED (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 Assessment/Plan: IV synthroid endocrine following Code(s): E03.5 - MYXEDEMA COMA Visit type - Emergency Visit Emergency Visit: Yes ED Registration Date: 08/25/19 Care time: The patient presented to the Emergency Department on the above date and was hospitalized for further evaluation of their emergent condition. - New Patient This patient is new to me today: No - Critical Care Critical Care patient: No - Discharge Referral Referred to [facility] Med P.C.: No
[2019-08-28 08:34] LABS: CALCIUM 6.9 mg/dL (8.5-10.1)
[2019-08-28] MEDS: FAMOTIDINE 20 MG/50 ML IVPB 20 MG/50 ML MG IVPB SCH (09:00)
[2019-08-28] MEDS ORDERED: PT OWN MED DRAWER 7, Y5N ONE (09:25)
[2019-08-28] MEDS: LEVOTHYROXINE SODIUM 100 MCG VIAL IVPUSH SCH (09:35)
--- NOTE | 2019-08-28 10:20 | PN ---
Progress Note (short form) - Note Progress Note: Intubated, sedated Vital Signs Period Temp Pulse Resp BP Sys/Amos Pulse Ox Last 24 Hr 97.7 F-98.6 F 56-68 16-25 117-170/61-106 97-100 PE: Intubated, sedated Neck: Supple LUngs: CTA CVs: S1S2 Abd: Benign CMP Sodium 139 mmol/L (136-145) 08/28/19 06:00 Potassium 4.1 mmol/L (3.5-5.1) 08/28/19 06:00 Chloride 105 mmol/L (98-107) 08/28/19 06:00 Carbon Dioxide 21 mmol/L (21-32) 08/28/19 06:00 Anion Gap 13 MMOL/L (8-16) 08/28/19 06:00 BUN 53.4 mg/dL (7-18) H 08/28/19 06:00 Creatinine 6.0 mg/dL (0.55-1.3) H 08/28/19 06:00 Est GFR (CKD-EPI)AfAm 8.60 08/28/19 06:00 Est GFR (CKD-EPI)NonAf 7.42 08/28/19 06:00 POC Glucometer 277 UNITS (80-120) 08/28/19 06:11 Random Glucose 267 mg/dL (74-106) H 08/28/19 06:00 Lactic Acid 0.7 mmol/L (0.4-2.0) 08/25/19 11:00 Calcium 6.9 mg/dL (8.5-10.1) L* 08/28/19 06:00 Phosphorus 5.5 mg/dL (2.5-4.9) H 08/28/19 06:00 Magnesium 1.8 mg/dL (1.8-2.4) 08/28/19 06:00 Total Bilirubin 0.4 mg/dL (0.2-1) 08/28/19 06:00 Direct Bilirubin 0.2 mg/dL (0.0-0.2) 08/26/19 05:54 AST 40 U/L (15-37) H 08/28/19 06:00 ALT 61 U/L (13-61) 08/28/19 06:00 Alkaline Phosphatase 654 U/L (45-117) H 08/28/19 06:00 Ammonia 24.90 umol/L (11-32) 08/25/19 11:00 Creatine Kinase 1133 U/L (26-192) H 08/26/19 05:54 Creatine Kinase Index 0.8 % (0.0-5.0) 08/26/19 05:54 CK-MB (CK-2) 9.5 ng/mL (0.5-3.6) H 08/26/19 05:54 Troponin I < 0.02 ng/ml (0.00-0.05) 08/26/19 05:54 B-Natriuretic Peptide 3649.4 pg/ml (5-125) H 08/25/19 11:00 Total Protein 5.7 g/dl (6.4-8.2) L 08/28/19 06:00 Albumin 1.8 g/dl (3.4-5.0) L 08/28/19 06:00 Beta-Hydroxybutyrate 1.1 mg/dL (0.2-2.8) 08/25/19 11:00 TSH 98.90 uIU/ml (0.358-3.74) H 08/26/19 05:54 Free T4 0.24 ng/dl (0.76-1.46) L 08/25/19 11:00 Thyroxine (T4) 3.2 ug/dl (4.5-13.9) L 08/25/19 11:00 Free T3 0.5 pg/ml (2.0-4.4) L 08/25/19 13:24 Resin T3 Uptake 30.3 % (30-39) 08/26/19 05:54 Cortisol Pre Dose Time 40.10 mcg/dL (.) 08/25/19 12:46 Current Medications Generic Name Dose Route Start Last Admin Trade Name Freq PRN Reason Stop Dose Admin Albuterol Sulfate 1 amp 08/25/19 14:57 Ventolin 0.083% Nebulizer Soln - NEB Q6H PRN SHORT OF BREATH/WHEEZING Albuterol/Ipratropium 1 amp 08/25/19 14:57 Duoneb - NEB Q4H PRN SHORTNESS OF BREATH Chlorhexidine Gluconate 1 applic 08/27/19 22:00 08/27/19 21:59 Hibiclens For Decolonization - TP 1 applic HS [facility] Administration Hydrocortisone Sodium Succinate 100 mg 08/25/19 15:00 08/28/19 06:02 Solu-Cortef - IVPUSH 100 mg Q8H [facility] Administration Famotidine/Sodium Chloride 20 mg in 50 mls @ 100 mls/hr 08/26/19 08:00 09:00 Pepcid 20 Mg Premixed Ivpb - IVPB 100 mls/hr DAILY@0800 [facility] Administration Propofol 1,000,000 mcg in 100 mls @ 34.7 mls/hr 08/25/19 18:45 08/28/19 09:27 Diprivan - IVPB 40 mcg/kg/min TITR [facility] 27.76 mls/hr Administration Protocol 50 MCG/KG/MIN Fentanyl 500 mcg/ Dextrose 100 mls @ 20 mls/hr 08/25/19 18:45 08/28/19 07:30 IVPB 75 mcg/hr TITR [facility] 15 mls/hr Titration 100 MCG/HR Piperacillin Sod/Tazobactam 50 mls @ 100 mls/hr 08/26/19 02:00 08/28/19 09:28 Sod 2.25 gm/ Dextrose IVPB 100 mls/hr Q8H-IV [facility] Administration Protocol Sodium Chloride 250 mls @ 3,000 mls/hr 08/27/19 11:48 Normal Saline - IV 08/28/19 11:48 PRN PRN Hypotension during Dialysis Insulin Aspart 1 vial 08/26/19 07:00 08/28/19 06:15 Novolog Vial Sliding Scale - SQ 4 units ACHS ZOE Administration Protocol Levothyroxine Sodium 100 mcg 08/26/19 10:00 08/28/19 09:35 Synthroid Injection - IVPUSH 100 mcg DAILY ZOE Administration Mupirocin 1 applic 08/27/19 10:00 08/27/19 21:59 Bactroban Ointment (For Decolonization) - NS 09/01/19 09:59 1 applic BID ZOE Administration AP: Respiratory failure AMS/ Toxic metabolic encephalopathy Hypothyrodism Throid ca s/p Thyroidectomy Morbid obesity LUCY on CKD DM Anemia with drop in H/H H/o Renal stones Elevated Alk Phos Ventilatory support TSH 98.9, wouldn't expect TSH to change much the first week treatement with LT4 IV Abx Doubt primary problem is hypothyroidism and myxedema coma Continue IV LT4 100mcg QD and IV hydrocortiosne Taper Hydrocortisone BGM Q 6hrs Novolog SS coverage Consider GI Evaluation Will f/u Problem List - Problems (1) AMS (altered mental status) Code(s): R41.82 - ALTERED MENTAL STATUS, UNSPECIFIED (2) Acute metabolic encephalopathy Code(s): G93.41 - METABOLIC ENCEPHALOPATHY (3) Acute renal failure Code(s): N17.9 - ACUTE KIDNEY FAILURE, UNSPECIFIED (4) Diabetes Code(s): E11.9 - TYPE 2 DIABETES MELLITUS WITHOUT COMPLICATIONS (5) Hypercapnic respiratory failure Code(s): J96.92 - RESPIRATORY FAILURE, UNSPECIFIED WITH HYPERCAPNIA (6) Hypothermia Code(s): T68.XXXA - HYPOTHERMIA, INITIAL ENCOUNTER (7) Metabolic acidosis Code(s): E87.2 - ACIDOSIS (8) Morbid obesity Code(s): E66.01 - MORBID (SEVERE) OBESITY DUE TO EXCESS CALORIES
[2019-08-28] MEDS: MUPIROCIN 2% TOPICAL OINTMENT FOR DECOLONIZATION NS SCH ×2 (10:23→23:03)
[2019-08-28] MEDS ORDERED: SODIUM CHLORIDE 250 ML IV PRN (11:01)
--- NOTE | 2019-08-28 11:05 | PN ---
Progress Note, Physician History of Present Illness: Pt seen and examined at bedside. She remains in the ICU. She remains intubated. - Current Medication List Current Medications: Active Medications Albumin Human (Albumin Human 25%) 12.5 gm IVPB Q30M [facility] Albuterol Sulfate (Ventolin 0.083% Nebulizer Soln -) 1 amp NEB Q6H PRN PRN Reason: SHORT OF BREATH/WHEEZING Albuterol/Ipratropium (Duoneb -) 1 amp NEB Q4H PRN PRN Reason: SHORTNESS OF BREATH Chlorhexidine Gluconate (Hibiclens For Decolonization -) 1 applic TP HS [facility] Last Admin: 08/27/19 21:59 Dose: 1 applic Hydrocortisone Sodium Succinate (Solu-Cortef -) 100 mg IVPUSH Q8H [facility] Last Admin: 08/28/19 06:02 Dose: 100 mg Famotidine/Sodium Chloride (Pepcid 20 Mg Premixed Ivpb -) 20 mg in 50 mls @ 100 mls/hr IVPB DAILY@0800 [facility] Last Admin: 08/28/19 09:00 Dose: 100 mls/hr Propofol (Diprivan -) 1,000,000 mcg in 100 mls @ 34.7 mls/hr IVPB TITR [facility]; Protocol Last Admin: 08/28/19 09:27 Dose: 40 mcg/kg/min, 27.76 mls/hr Fentanyl 500 mcg/ Dextrose 100 mls @ 20 mls/hr IVPB TITR [facility] Last Titration: 08/28/19 07:30 Dose: 75 mcg/hr, 15 mls/hr Piperacillin Sod/Tazobactam (Sod 2.25 gm/ Dextrose) 50 mls @ 100 mls/hr IVPB Q8H-IV [facility]; Protocol Last Admin: 08/28/19 09:28 Dose: 100 mls/hr Sodium Chloride (Normal Saline -) 250 mls @ 3,000 mls/hr IV PRN PRN PRN Reason: Hypotension during Dialysis Stop: 08/28/19 11:48 Sodium Chloride (Normal Saline -) 250 mls @ 3,000 mls/hr IV PRN PRN PRN Reason: Hypotension during Dialysis Stop: 08/29/19 11:01 Insulin Aspart (Novolog Vial Sliding Scale -) 1 vial SQ ACHS [facility]; Protocol Last Admin: 08/28/19 06:15 Dose: 4 units Levothyroxine Sodium (Synthroid Injection -) 100 mcg IVPUSH DAILY [facility] Last Admin: 08/28/19 09:35 Dose: 100 mcg Mupirocin (Bactroban Ointment (For Decolonization) -) 1 applic NS BID [facility] Stop: 09/01/19 09:59 Last Admin: 08/28/19 10:23 Dose: 1 applic - Objective Vital Signs: Vital Signs Temperature 98.6 F 08/28/19 10:00 Pulse Rate 62 08/28/19 10:00 Respiratory Rate 24 H 08/28/19 10:00 Blood Pressure 152/81 08/28/19 10:00 O2 Sat by Pulse Oximetry (%) 99 08/28/19 08:15 Constitutional: Yes: Calm Eyes: Yes: Conjunctiva Clear HENT: Yes: Atraumatic Neck: Yes: Supple Cardiovascular: Yes: S1, S2 Respiratory: Yes: Intubated, Mechanically Ventilated Gastrointestinal: Yes: Soft Genitourinary: Yes: Mahoney Present Musculoskeletal: Yes: Muscle Weakness Edema: Yes Edema: LLE: 1+, RLE: 1+ Neurological: Yes: Oriented Psychiatric: Yes: Oriented Labs: CBC, BMP 08/28/19 06:00 08/28/19 06:00 INR, PTT INR 0.89 (0.83-1.09) 08/25/19 11:00 - ....Imaging Chest X-ray: Report Reviewed Problem List - Problems (1) AMS (altered mental status) Code(s): R41.82 - ALTERED MENTAL STATUS, UNSPECIFIED (2) Acute metabolic encephalopathy Code(s): G93.41 - METABOLIC ENCEPHALOPATHY (3) Acute renal failure Code(s): N17.9 - ACUTE KIDNEY FAILURE, UNSPECIFIED (4) Diabetes Code(s): E11.9 - TYPE 2 DIABETES MELLITUS WITHOUT COMPLICATIONS (5) Hypercapnic respiratory failure Code(s): J96.92 - RESPIRATORY FAILURE, UNSPECIFIED WITH HYPERCAPNIA (6) Hypothermia Code(s): T68.XXXA - HYPOTHERMIA, INITIAL ENCOUNTER (7) Morbid obesity Code(s): E66.01 - MORBID (SEVERE) OBESITY DUE TO EXCESS CALORIES Assessment/Plan Current Medications Generic Name Dose Route Start Last Admin Trade Name Freq PRN Reason Stop Dose Admin Albumin Human 12.5 gm 08/28/19 11:15 Albumin Human 25% IVPB Q30M [facility] Albuterol Sulfate 1 amp 08/25/19 14:57 Ventolin 0.083% Nebulizer Soln - NEB Q6H PRN SHORT OF BREATH/WHEEZING Albuterol/Ipratropium 1 amp 08/25/19 14:57 Duoneb - NEB Q4H PRN SHORTNESS OF BREATH Chlorhexidine Gluconate 1 applic 08/27/19 22:00 08/27/19 21:59 Hibiclens For Decolonization - TP 1 applic HS [facility] Administration Hydrocortisone Sodium Succinate 100 mg 08/25/19 15:00 08/28/19 06:02 Solu-Cortef - IVPUSH 100 mg Q8H [facility] Administration Famotidine/Sodium Chloride 20 mg in 50 mls @ 100 mls/hr 08/26/19 08:00 09:00 Pepcid 20 Mg Premixed Ivpb - IVPB 100 mls/hr DAILY@0800 [facility] Administration Propofol 1,000,000 mcg in 100 mls @ 34.7 mls/hr 08/25/19 18:45 08/28/19 09:27 Diprivan - IVPB 40 mcg/kg/min TITR [facility] 27.76 mls/hr Administration Protocol 50 MCG/KG/MIN Fentanyl 500 mcg/ Dextrose 100 mls @ 20 mls/hr 08/25/19 18:45 08/28/19 07:30 IVPB 75 mcg/hr TITR [facility] 15 mls/hr Titration 100 MCG/HR Piperacillin Sod/Tazobactam 50 mls @ 100 mls/hr 08/26/19 02:00 08/28/19 09:28 Sod 2.25 gm/ Dextrose IVPB 100 mls/hr Q8H-IV [facility] Administration Protocol Sodium Chloride 250 mls @ 3,000 mls/hr 08/27/19 11:48 Normal Saline - IV 08/28/19 11:48 PRN PRN Hypotension during Dialysis Sodium Chloride 250 mls @ 3,000 mls/hr 08/28/19 11:01 Normal Saline - IV 08/29/19 11:01 PRN PRN Hypotension during Dialysis Insulin Aspart 1 vial 08/26/19 07:00 08/28/19 06:15 Novolog Vial Sliding Scale - SQ 4 units ACHS [facility] Administration Protocol Levothyroxine Sodium 100 mcg 08/26/19 10:00 08/28/19 09:35 Synthroid Injection - IVPUSH 100 mcg DAILY [facility] Administration Mupirocin 1 applic 08/27/19 10:00 08/28/19 10:23 Bactroban Ointment (For Decolonization) - NS 09/01/19 09:59 1 applic BID [facility] Administration Impression 1. LUCY 2. fluid overload 3. acute respiratory failure 4. hypothyroidism with tsh of 100 5. 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 urine tox pos for mdma 7. mild rhabdo Plan - HD today - will UF more volume - vent support - monitor urine output - follow serologies - daily cxr - nepro for feeds
[2019-08-28] MEDS: ALBUMIN HUMAN 25% 12.5 GM/50 ML VIAL IVPB SCH ×4 (11:15→12:45)
--- NOTE | 2019-08-28 13:04 | PN ---
Teaching Attending Note Name of Resident: Sandoval Abernathy ATTENDING PHYSICIAN STATEMENT I saw and evaluated the patient. I reviewed the resident's note and discussed the case with the resident. I agree with the resident's findings and plan as documented. SUBJECTIVE: Pt seen and examined in the ICU. Remains intubated, sedated. Being dialyzed this AM. No pressors. OBJECTIVE: Vital Signs Period Temp Pulse Resp BP Sys/Amos Pulse Ox Last 24 Hr 97.7 F-98.6 F 56-68 21-25 117-170/61-81 99-100 Intake & Output 08/25/19 08/26/19 08/27/19 08/28/19 23:59 23:59 23:59 23:59 Intake Total 928.5 960 1520 828 Output Total 442 350 9065 300 Balance 223.5 360 -1580 528 Weight 115.666 kg 115.666 kg 115.666 kg 123.4 kg Gen: intubated, sedated Heart: RRR Lung: decreased breath sounds at the bases Abd: soft, nontender Ext: + edema CBC, BMP 08/28/19 06:00 08/28/19 06:00 Active Medications Albuterol Sulfate (Ventolin 0.083% Nebulizer Soln -) 1 amp NEB Q6H PRN PRN Reason: SHORT OF BREATH/WHEEZING Albuterol/Ipratropium (Duoneb -) 1 amp NEB Q4H PRN PRN Reason: SHORTNESS OF BREATH Chlorhexidine Gluconate (Hibiclens For Decolonization -) 1 applic TP HS [facility] Last Admin: 08/27/19 21:59 Dose: 1 applic Hydrocortisone Sodium Succinate (Solu-Cortef -) 100 mg IVPUSH Q8H [facility] Last Admin: 08/28/19 06:02 Dose: 100 mg Famotidine/Sodium Chloride (Pepcid 20 Mg Premixed Ivpb -) 20 mg in 50 mls @ 100 mls/hr IVPB DAILY@0800 [facility] Last Admin: 08/28/19 09:00 Dose: 100 mls/hr Propofol (Diprivan -) 1,000,000 mcg in 100 mls @ 34.7 mls/hr IVPB TITR [facility]; Protocol Last Admin: 08/28/19 09:27 Dose: 40 mcg/kg/min, 27.76 mls/hr Fentanyl 500 mcg/ Dextrose 100 mls @ 20 mls/hr IVPB TITR [facility] Last Titration: 08/28/19 07:30 Dose: 75 mcg/hr, 15 mls/hr Piperacillin Sod/Tazobactam (Sod 2.25 gm/ Dextrose) 50 mls @ 100 mls/hr IVPB Q8H-IV [facility]; Protocol Last Admin: 08/28/19 09:28 Dose: 100 mls/hr Sodium Chloride (Normal Saline -) 250 mls @ 3,000 mls/hr IV PRN PRN PRN Reason: Hypotension during Dialysis Stop: 08/29/19 11:01 Insulin Aspart (Novolog Vial Sliding Scale -) 1 vial SQ ACHS [facility]; Protocol Last Admin: 08/28/19 11:50 Dose: 2 units Levothyroxine Sodium (Synthroid Injection -) 100 mcg IVPUSH DAILY [facility] Last Admin: 08/28/19 09:35 Dose: 100 mcg Mupirocin (Bactroban Ointment (For Decolonization) -) 1 applic NS BID [facility] Stop: 09/01/19 09:59 Last Admin: 08/28/19 10:23 Dose: 1 applic ASSESSMENT AND PLAN: Acute Hypercapneic Respiratory Failure Myxedema Coma UTI Acute Kidney Injury requiring HD COPD DM Anemia - HD per renal with ultrafiltration - monitor urine output, creatinine - continue antibiotics - continue hydrocortisone, synthroid - inhaled bronchodilators - O2 to keep SpO2 >90% - daily sedation vacations to assess mental status - spontaneous breathing trials as tolerated - enteral feeds - DVT/GI prophylaxis - continue ICU monitoring critical care time spent in reviewing chart, evaluating patient and formulating plan 35 min
--- NOTE | 2019-08-28 14:02 | PN ---
Progress Note, Physician History of Present Illness: continues to be intubated on dialysis - Current Medication List Current Medications: Active Medications Albuterol Sulfate (Ventolin 0.083% Nebulizer Soln -) 1 amp NEB Q6H PRN PRN Reason: SHORT OF BREATH/WHEEZING Albuterol/Ipratropium (Duoneb -) 1 amp NEB Q4H PRN PRN Reason: SHORTNESS OF BREATH Chlorhexidine Gluconate (Hibiclens For Decolonization -) 1 applic TP HS [facility] Last Admin: 08/27/19 21:59 Dose: 1 applic Hydrocortisone Sodium Succinate (Solu-Cortef -) 100 mg IVPUSH Q8H [facility] Last Admin: 08/28/19 06:02 Dose: 100 mg Famotidine/Sodium Chloride (Pepcid 20 Mg Premixed Ivpb -) 20 mg in 50 mls @ 100 mls/hr IVPB DAILY@0800 [facility] Last Admin: 08/28/19 09:00 Dose: 100 mls/hr Propofol (Diprivan -) 1,000,000 mcg in 100 mls @ 34.7 mls/hr IVPB TITR [facility]; Protocol Last Admin: 08/28/19 09:27 Dose: 40 mcg/kg/min, 27.76 mls/hr Fentanyl 500 mcg/ Dextrose 100 mls @ 20 mls/hr IVPB TITR [facility] Last Titration: 08/28/19 07:30 Dose: 75 mcg/hr, 15 mls/hr Piperacillin Sod/Tazobactam (Sod 2.25 gm/ Dextrose) 50 mls @ 100 mls/hr IVPB Q8H-IV [facility]; Protocol Last Admin: 08/28/19 09:28 Dose: 100 mls/hr Sodium Chloride (Normal Saline -) 250 mls @ 3,000 mls/hr IV PRN PRN PRN Reason: Hypotension during Dialysis Stop: 08/29/19 11:01 Insulin Aspart (Novolog Vial Sliding Scale -) 1 vial SQ ACHS [facility]; Protocol Last Admin: 08/28/19 11:50 Dose: 2 units Levothyroxine Sodium (Synthroid Injection -) 100 mcg IVPUSH DAILY [facility] Last Admin: 08/28/19 09:35 Dose: 100 mcg Mupirocin (Bactroban Ointment (For Decolonization) -) 1 applic NS BID [facility] Stop: 09/01/19 09:59 Last Admin: 08/28/19 10:23 Dose: 1 applic - Objective Vital Signs: Vital Signs Temperature 98.6 F 08/28/19 10:00 Pulse Rate 64 08/28/19 12:45 Respiratory Rate 24 H 08/28/19 12:45 Blood Pressure 121/72 08/28/19 12:45 O2 Sat by Pulse Oximetry (%) 99 08/28/19 10:00 Constitutional: Yes: No Distress, Calm Cardiovascular: Yes: S1, S2 Respiratory: Yes: Intubated, Mechanically Ventilated Gastrointestinal: Yes: Normal Bowel Sounds, Soft Musculoskeletal: Yes: WNL Extremities: Yes: Other Neurological: Yes: Other Psychiatric: Yes: Other Labs: CBC, BMP 08/28/19 06:00 08/28/19 06:00 INR, PTT INR 0.89 (0.83-1.09) 08/25/19 11:00 Assessment/Plan Problem List - Problems (1) LUCY (acute kidney injury) Code(s): N17.9 - ACUTE KIDNEY FAILURE, UNSPECIFIED (2) AMS (altered mental status) Code(s): R41.82 - ALTERED MENTAL STATUS, UNSPECIFIED (3) Acute metabolic encephalopathy Code(s): G93.41 - METABOLIC ENCEPHALOPATHY (4) Acute respiratory failure Code(s): J96.00 - ACUTE RESPIRATORY FAILURE, UNSP W HYPOXIA OR HYPERCAPNIA (5) Anemia Code(s): D64.9 - ANEMIA, UNSPECIFIED (6) COPD (chronic obstructive pulmonary disease) Code(s): J44.9 - CHRONIC OBSTRUCTIVE PULMONARY DISEASE, UNSPECIFIED (7) Diabetes Code(s): E11.9 - TYPE 2 DIABETES MELLITUS WITHOUT COMPLICATIONS (8) HTN (hypertension) Code(s): I10 - ESSENTIAL (PRIMARY) HYPERTENSION (9) Hypercapnic respiratory failure Code(s): J96.92 - RESPIRATORY FAILURE, UNSPECIFIED WITH HYPERCAPNIA (10) Hypothermia Code(s): T68.XXXA - HYPOTHERMIA, INITIAL ENCOUNTER (11) Morbid obesity Code(s): E66.01 - MORBID (SEVERE) OBESITY DUE TO EXCESS CALORIES (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 - MYXEDEMA COMA (13) Thyroid cancer Code(s): C73 - MALIGNANT NEOPLASM OF THYROID GLAND Assessment/Plan Acute respiratory failure on MV/sedation Acute metabolic encephalopathy AMS Myxedema coma DM LUCY on CKD Obesity Hx of thyroid CA s/p thyroidectomy HTN HLD COPD Anemia --pt remains intubated/sedated --continue empiric antibiotics --blood cultures neg 48h --monitor wbc trend, elevated today --on HD rest of care per ICU cc: 40 min
[2019-08-28] MEDS ORDERED: fentaNYL CITRATE 250 MCG/5 ML VIAL ONE ×2 (14:03→21:27)
--- NOTE | 2019-08-28 16:30 | PN ---
Physical Exam: SUBJECTIVE: Patient seen and examined pt evaluated at bedside received HD yesterday and today currenly intubated and sedated. OBJECTIVE: Vital Signs Period Temp Pulse Resp BP Sys/Amos Pulse Ox Last 24 Hr 97.8 F-98.6 F 56-68 21-25 117-175/61-85 99-100 GEN: inubated and sedated HEENT: NC/AT, No facial asymmetry CV: S1/S2, RRR, no m/r/g LUNG: equal breath sounds bilaterally. . GI: soft, obese abdomen. EXTREMITIES: 2+ distal pulses. pitting LE edema. SKIN: warm, dry, normal turgor NEURO: sedated and intubated Laboratory Results - last 24 hr 08/25/19 08/26/19 08/26/19 13:41 05:54 21:25 WBC RBC Hgb Hct MCV MCH MCHC RDW Plt Count MPV Absolute Neuts (auto) Neutrophils % Lymphocytes % Monocytes % Eosinophils % Basophils % Nucleated RBC % Sodium 143 Potassium 4.7 Chloride 112 H Carbon Dioxide 19 L Anion Gap 12 BUN 68.7 H Creatinine 7.9 H* Est GFR (CKD-EPI)AfAm 6.16 Est GFR (CKD-EPI)NonAf 5.32 POC Glucometer Random Glucose 190 H Calcium 6.6 L* Phosphorus 6.8 H Magnesium 1.7 L Total Bilirubin 0.4 Direct Bilirubin 0.2 AST 59 H ALT 95 H Alkaline Phosphatase 766 H Creatine Kinase 1133 H Creatine Kinase Index 0.8 CK-MB (CK-2) 9.5 H Troponin I < 0.02 Total Protein 5.6 L Albumin 2.0 L Procalcitonin 1.29 H TSH 98.90 H Resin T3 Uptake 30.3 Urine Color Urine Appearance Urine pH Ur Specific [place] Urine Protein Urine Glucose (UA) Urine Ketones Urine Blood Urine Nitrite Urine Bilirubin Urine Urobilinogen Ur Leukocyte Esterase Urine WBC (Auto) Urine RBC (Auto) Urine Casts (Auto) U Pathogenic Cast Auto U Epithel Cells (Auto) Urine Bacteria (Auto) Urine Yeast (Auto) Double Strand DNA Ab 7 08/27/19 08/27/19 08/27/19 18:30 18:37 22:39 WBC RBC Hgb Hct MCV MCH MCHC RDW Plt Count MPV Absolute Neuts (auto) Neutrophils % Lymphocytes % Monocytes % Eosinophils % Basophils % Nucleated RBC % Sodium Potassium Chloride Carbon Dioxide Anion Gap BUN Creatinine Est GFR (CKD-EPI)AfAm Est GFR (CKD-EPI)NonAf POC Glucometer 91 110 Random Glucose Calcium Phosphorus Magnesium Total Bilirubin Direct Bilirubin AST ALT Alkaline Phosphatase Creatine Kinase Creatine Kinase Index CK-MB (CK-2) Troponin I Total Protein Albumin Procalcitonin TSH Resin T3 Uptake Urine Color Yellow Urine Appearance Turbid Urine pH 5.5 Ur Specific [place] 1.020 Urine Protein 3+ H Urine Glucose (UA) Negative Urine Ketones Negative Urine Blood 1+ H Urine Nitrite Negative Urine Bilirubin Negative Urine Urobilinogen 0.2 Ur Leukocyte Esterase 2+ H Urine WBC (Auto) 321 Urine RBC (Auto) 5-8 Urine Casts (Auto) 41 U Pathogenic Cast Auto 0 U Epithel Cells (Auto) 4.6 Urine Bacteria (Auto) Few Urine Yeast (Auto) Many Double Strand DNA Ab 08/28/19 08/28/19 08/28/19 06:00 06:00 06:11 WBC 8.5 RBC 2.75 L Hgb 8.4 L Hct 24.6 L MCV 89.5 MCH 30.5 MCHC 34.0 RDW 18.0 H Plt Count 263 MPV 8.6 Absolute Neuts (auto) 7.1 Neutrophils % 83.9 H Lymphocytes % 14.5 D Monocytes % 1.5 L Eosinophils % 0.0 Basophils % 0.1 Nucleated RBC % 0 Sodium 139 Potassium 4.1 Chloride 105 Carbon Dioxide 21 Anion Gap 13 BUN 53.4 H Creatinine 6.0 H Est GFR (CKD-EPI)AfAm 8.60 Est GFR (CKD-EPI)NonAf 7.42 POC Glucometer 277 Random Glucose 267 H Calcium 6.9 L* Phosphorus 5.5 H Magnesium 1.8 Total Bilirubin 0.4 Direct Bilirubin AST 40 H ALT 61 Alkaline Phosphatase 654 H Creatine Kinase Creatine Kinase Index CK-MB (CK-2) Troponin I Total Protein 5.7 L Albumin 1.8 L Procalcitonin TSH Resin T3 Uptake Urine Color Urine Appearance Urine pH Ur Specific [place] Urine Protein Urine Glucose (UA) Urine Ketones Urine Blood Urine Nitrite Urine Bilirubin Urine Urobilinogen Ur Leukocyte Esterase Urine WBC (Auto) Urine RBC (Auto) Urine Casts (Auto) U Pathogenic Cast Auto U Epithel Cells (Auto) Urine Bacteria (Auto) Urine Yeast (Auto) Double Strand DNA Ab 08/28/19 11:39 WBC RBC Hgb Hct MCV MCH MCHC RDW Plt Count MPV Absolute Neuts (auto) Neutrophils % Lymphocytes % Monocytes % Eosinophils % Basophils % Nucleated RBC % Sodium Potassium Chloride Carbon Dioxide Anion Gap BUN Creatinine Est GFR (CKD-EPI)AfAm Est GFR (CKD-EPI)NonAf POC Glucometer 170 Random Glucose Calcium Phosphorus Magnesium Total Bilirubin Direct Bilirubin AST ALT Alkaline Phosphatase Creatine Kinase Creatine Kinase Index CK-MB (CK-2) Troponin I Total Protein Albumin Procalcitonin TSH Resin T3 Uptake Urine Color Urine Appearance Urine pH Ur Specific [place] Urine Protein Urine Glucose (UA) Urine Ketones Urine Blood Urine Nitrite Urine Bilirubin Urine Urobilinogen Ur Leukocyte Esterase Urine WBC (Auto) Urine RBC (Auto) Urine Casts (Auto) U Pathogenic Cast Auto U Epithel Cells (Auto) Urine Bacteria (Auto) Urine Yeast (Auto) Double Strand DNA Ab Active Medications Generic Name Dose Route Start Last Admin Trade Name Freq PRN Reason Stop Dose Admin Albuterol Sulfate 1 amp 08/25/19 14:57 Ventolin 0.083% Nebulizer Soln - NEB Q6H PRN SHORT OF BREATH/WHEEZING Albuterol/Ipratropium 1 amp 08/25/19 14:57 Duoneb - NEB Q4H PRN SHORTNESS OF BREATH Chlorhexidine Gluconate 1 applic 08/27/19 22:00 08/27/19 21:59 Hibiclens For Decolonization - TP 1 applic HS [facility] Administration Hydrocortisone Sodium Succinate 100 mg 08/25/19 15:00 08/28/19 14:30 Solu-Cortef - IVPUSH 100 mg Q8H [facility] Administration Famotidine/Sodium Chloride 20 mg in 50 mls @ 100 mls/hr 08/26/19 08:00 08/28/19 09:00 Pepcid 20 Mg Premixed Ivpb - IVPB 100 mls/hr DAILY@0800 [facility] Administration Propofol 1,000,000 mcg in 100 mls @ 34.7 mls/hr 08/25/19 18:45 08/28/19 14:29 Diprivan - IVPB 40 mcg/kg/min TITR [facility] 27.76 mls/hr Administration Protocol 50 MCG/KG/MIN Fentanyl 500 mcg/ Dextrose 100 mls @ 20 mls/hr 08/25/19 18:45 08/28/19 14:29 IVPB 50 mcg/hr TITR [facility] 10 mls/hr Administration 100 MCG/HR Piperacillin Sod/Tazobactam 50 mls @ 100 mls/hr 08/26/19 02:00 08/28/19 09:28 Sod 2.25 gm/ Dextrose IVPB 100 mls/hr Q8H-IV [facility] Administration Protocol Sodium Chloride 250 mls @ 3,000 mls/hr 08/28/19 11:01 Normal Saline - IV 08/29/19 11:01 PRN PRN Hypotension during Dialysis Insulin Aspart 1 vial 08/26/19 07:00 08/28/19 11:50 Novolog Vial Sliding Scale - SQ 2 units ACHS [facility] Administration Protocol Levothyroxine Sodium 100 mcg 08/26/19 10:00 08/28/19 09:35 Synthroid Injection - IVPUSH 100 mcg DAILY [facility] Administration Mupirocin 1 applic 08/27/19 10:00 08/28/19 10:23 Bactroban Ointment (For Decolonization) - NS 09/01/19 09:59 1 applic BID [facility] Administration ASSESSMENT/PLAN: 54 y.o F hx of hypertension, hyperlipidemia, diabetes, COPD, anemia, thyroid cancer 6 years ago NEURO:sedated and intubated CV: PULM:Acute Hypercapneic Respiratory Failure, COPD -SBT will be attempted as tolerated -pause sedation daily to for mental status evaluation -inhaled bronchodilators -keep O2 sat above 90% RENAL:LUCY -hemodialysis today x2 -monitor urine ouptut and creatinine FENGI: -enteral feeds ENDO:Myxedema Coma, type 2 diabetes -continue hydrocortisone ID:[id number] continue antibiotics monitor white count Heme/Onc: anemia -monitor cbc LINES/TUBES/DRAINS: line for dialyis in right neck since 08/27/2019 Visit type - Emergency Visit Emergency Visit: Yes ED Registration Date: 08/25/19 Care time: The patient presented to the Emergency Department on the above date and was hospitalized for further evaluation of their emergent condition. - New Patient This patient is new to me today: No - Critical Care Critical Care patient: No - Discharge Referral Referred to [facility] No ATTENDING PHYSICIAN STATEMENT I saw and evaluated the patient. I reviewed the resident's note and discussed the case with the resident. I agree with the resident's findings and plan as documented. SUBJECTIVE: OBJECTIVE: ASSESSMENT AND PLAN:
[2019-08-28] MEDS ORDERED: PROPOFOL 1,000,000 MCG/100 ML VIAL ONE (17:23)
[2019-08-28] MEDS ORDERED: hydrALAZINE HCL 20 MG/ML VIAL IVPUSH ONE (18:01)
[2019-08-28 18:08] LABS: HEP B CORE AB, TOT Positive (Negative)
[2019-08-28] MEDS: CHLORHEXIDINE GLUCONATE 4% CLEANSER FOR DECOLONIZATION TP SCH (23:02)
[2019-08-29] MEDS ORDERED: PIPERACILLIN/TAZOBACTAM 2.25 GM VIAL IVPB ONE ×3 (02:07→16:17)
[2019-08-29] MEDS ORDERED: DEXTROSE 5%-WATER - 50 ML IVPB ONE ×3 (02:08→16:18)
[2019-08-29] MEDS: PIPERACILLIN/TAZOB 2.25 GM 2.25 GM in DEXTROSE 5%-WATER - 50 ML IVPB SCH ×3 (02:22→18:06)
[2019-08-29] MEDS: FENTANYL INJECTION 500 MCG in DEXTROSE 5%-WATER - 90 ML IVPB SCH ×2 (02:23→18:00)
[2019-08-29] MEDS: PROPOFOL 1,000,000 MCG/100 ML VIAL IVPB SCH ×3 (06:36→23:06)
[2019-08-29] MEDS: INSULIN SLIDING SCALE (NOVOLOG) 1 VIAL SQ SCH ×4 (06:37→23:06)
[2019-08-29] MEDS: HYDROCORTISONE SOD SUCCINATE 100 MG/2 ML VIAL IVPUSH SCH ×3 (06:40→23:03)
[2019-08-29 06:58] LABS: HEMATOCRIT 25.8 % (32.4-45.2); HEMOGLOBIN 8.8 GM/dL (10.7-15.3); MCH 29.9 pg (25.7-33.7); MEAN CELL VOLUME 87.9 fl (80-96); MEAN PLT VOLUME 8.3 fl (7.5-11.1); MONO % 1.4 % (3.8-10.2); NEUT % 87.6 % (42.8-82.8); PLATELET COUNT 276 K/MM3 (134-434); RBC 2.94 M/mm3 (3.60-5.2); WHITE BLOOD COUNT 12.7 K/mm3 (4.0-10.0)
[2019-08-29 07:20] LABS: ALBUMIN 2.3 g/dl (3.4-5.0); BILIRUBIN,TOTAL 0.4 mg/dL (0.2-1); BLOOD UREA NITROGEN 43.9 mg/dL (7-18); CALCIUM 7.3 mg/dL (8.5-10.1); MAGNESIUM 1.8 mg/dL (1.8-2.4); POTASSIUM 4.1 mmol/L (3.5-5.1); TOT PROT 6.3 g/dl (6.4-8.2)
[2019-08-29] MEDS: FAMOTIDINE 20 MG/50 ML IVPB 20 MG/50 ML MG IVPB SCH (09:08)
[2019-08-29] MEDS: MUPIROCIN 2% TOPICAL OINTMENT FOR DECOLONIZATION NS SCH ×2 (09:13→23:03)
--- NOTE | 2019-08-29 09:23 | PN ---
Progress Note, Physician Chief Complaint: orally intubated and sedated. Less responsive today. Remains on propofol and fentanyl History of Present Illness: Patient is a 54 year old morbid obese female with a significant PMD Htn, HLD, DM , COPD, anemia, thyroid cancer 6 years ago. Patient brought into the ED for altered mental status and acute shortness of breath. She was found to have an elevated TSH, low t4 and hypothermic (96f-97-on mariana hugger). Urine is + for ecstasy. She also has renal failure with a creat of 7.7, bun of 65,mag 1.6, elevated ast/alt. In the ED she was placed on bipap & admitted for myxedema coma, acute renal failure, acute metabolic encephalopathy, metabolic acidosis, hypercapneic respiratory failure. Repeat abg without improvement of acidosis, and elevated co2. patient intubated to protect airway. - Current Medication List Current Medications: Active Medications Albuterol Sulfate (Ventolin 0.083% Nebulizer Soln -) 1 amp NEB Q6H PRN PRN Reason: SHORT OF BREATH/WHEEZING Albuterol/Ipratropium (Duoneb -) 1 amp NEB Q4H PRN PRN Reason: SHORTNESS OF BREATH Chlorhexidine Gluconate (Hibiclens For Decolonization -) 1 applic TP HS [facility] Last Admin: 08/28/19 23:02 Dose: 1 applic Hydrocortisone Sodium Succinate (Solu-Cortef -) 100 mg IVPUSH Q8H [facility] Last Admin: 08/29/19 06:40 Dose: 100 mg Famotidine/Sodium Chloride (Pepcid 20 Mg Premixed Ivpb -) 20 mg in 50 mls @ 100 mls/hr IVPB DAILY@0800 [facility] Last Admin: 08/29/19 09:08 Dose: 100 mls/hr Propofol (Diprivan -) 1,000,000 mcg in 100 mls @ 34.7 mls/hr IVPB TITR [facility]; Protocol Last Admin: 08/29/19 06:36 Dose: 30 mcg/kg/min, 20.82 mls/hr Fentanyl 500 mcg/ Dextrose 100 mls @ 20 mls/hr IVPB TITR [facility] Last Admin: 08/29/19 02:23 Dose: 25 mcg/hr, 5 mls/hr Piperacillin Sod/Tazobactam (Sod 2.25 gm/ Dextrose) 50 mls @ 100 mls/hr IVPB Q8H-IV [facility]; Protocol Last Admin: 08/29/19 09:11 Dose: 100 mls/hr Sodium Chloride (Normal Saline -) 250 mls @ 3,000 mls/hr IV PRN PRN PRN Reason: Hypotension during Dialysis Stop: 08/29/19 11:01 Insulin Aspart (Novolog Vial Sliding Scale -) 1 vial SQ ACHS [facility]; Protocol Last Admin: 08/29/19 06:37 Dose: 2 units Levothyroxine Sodium (Synthroid Injection -) 100 mcg IVPUSH DAILY [facility] Last Admin: 08/28/19 09:35 Dose: 100 mcg Mupirocin (Bactroban Ointment (For Decolonization) -) 1 applic NS BID [facility] Stop: 09/01/19 09:59 Last Admin: 08/29/19 09:13 Dose: 1 applic - Objective Vital Signs: Vital Signs Temperature 98.8 F 08/29/19 06:00 Pulse Rate 65 08/29/19 08:00 Respiratory Rate 22 H 08/29/19 08:00 Blood Pressure 155/76 08/29/19 08:00 O2 Sat by Pulse Oximetry (%) 96 08/29/19 08:00 Additional Findings/Remarks: Constitutional: Yes: Other (Intubated and sedated) Eyes: Yes: Other (scleral edema) HENT: Yes: WNL, Atraumatic, Normocephalic Neck: Yes: WNL, Supple, Trachea Midline. RIJ dialysis cath noted (tip @ SVC) Cardiovascular: Yes: Bradycardia (HR 50s) Respiratory: Yes: Mechanically Ventilated (orally intubated on AC, FIO2 40) Gastrointestinal: Yes: Soft, Abdomen, Obese ...Rectal Exam: Yes: Deferred Genitourinary: Yes: Mahoney Present Breast(s): Yes: WNL Extremities: Yes: Delayed Capillary Refill Edema: Yes Edema: LUE: 2+, RUE: 2+, LLE: 3+, RLE: 3+ Peripheral Pulses WNL: No Peripheral Pulses: Left Radial: 1+, Right Radial: 1+, Left Doralis Pedis: 1+, Right Dorsalis Pedis: 1+, Left Femoral: 1+, Right Femoral: 1+ Integumentary: Yes: WNL Neurological: Yes: Other (Intubated and sedated) Psychiatric: Yes: Other (Intubated and sedated) Labs: CBC, BMP 08/29/19 05:45 08/29/19 05:45 INR, PTT INR 0.89 (0.83-1.09) 08/25/19 11:00 Problem List - Problems (1) HTN (hypertension) Assessment/Plan: on lisinipril/ nifedipine at home being held will restart when extubated if needed Code(s): I10 - ESSENTIAL (PRIMARY) HYPERTENSION (2) HLD (hyperlipidemia) Assessment/Plan: c/w atorvastatin when extubated Code(s): E78.5 - HYPERLIPIDEMIA, UNSPECIFIED (3) COPD (chronic obstructive pulmonary disease) Assessment/Plan: duo nebs q4h mechanically ventilated on AC Code(s): J44.9 - CHRONIC OBSTRUCTIVE PULMONARY DISEASE, UNSPECIFIED (4) Anemia Assessment/Plan: recieved 1 u PRBC since admission Hgb 8.8 continue to monitor Code(s): D64.9 - ANEMIA, UNSPECIFIED (5) Thyroid cancer Code(s): C73 - MALIGNANT NEOPLASM OF THYROID GLAND (6) Acute respiratory failure Assessment/Plan: remains orally intuabted not able to wean at this time oral care as per nursing turn and reposition appreciate ICU level of care Code(s): J96.00 - ACUTE RESPIRATORY FAILURE, UNSP W HYPOXIA OR HYPERCAPNIA (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 Code(s): F16.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 ABUSE, UNCOMPLICATED (8) LUCY (acute kidney injury) Assessment/Plan: Cr 5.0 HD as per renal avoid nephrotoxic agents Code(s): N17.9 - ACUTE KIDNEY FAILURE, UNSPECIFIED (9) Acute metabolic encephalopathy Assessment/Plan: sedated on propofol amd fentanyl following simple commands during sedation interruption Code(s): G93.41 - METABOLIC ENCEPHALOPATHY (10) Morbid obesity Code(s): E66.01 - MORBID (SEVERE) OBESITY DUE TO EXCESS CALORIES (11) Prophylactic measure Assessment/Plan: FEN no additional IVF TF with nepro vis OGT-tolerating well monitor electrolytes DVT SCDs Dispo requiring ICU care full code discharge planning Code(s): Z29.9 - ENCOUNTER FOR PROPHYLACTIC MEASURES, UNSPECIFIED (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 Assessment/Plan: IV synthroid endocrine following Code(s): E03.5 - MYXEDEMA COMA Visit type - Emergency Visit Emergency Visit: Yes ED Registration Date: 08/25/19 Care time: The patient presented to the Emergency Department on the above date and was hospitalized for further evaluation of their emergent condition. - New Patient This patient is new to me today: No - Critical Care Critical Care patient: No - Discharge Referral Referred to [facility] Med P.C.: No
[2019-08-29] MEDS ORDERED: PT OWN MED DRAWER 7, Y5N ONE (10:13)
[2019-08-29] MEDS: LEVOTHYROXINE SODIUM 100 MCG VIAL IVPUSH SCH (10:15)
[2019-08-29 11:07] LABS: ANTIGLOMERULAR BASEMENT MEN.AB 5 units (0-20)
--- NOTE | 2019-08-29 11:31 | PN ---
Teaching Attending Note Name of Resident: Sandoval Abernathy ATTENDING PHYSICIAN STATEMENT I saw and evaluated the patient. I reviewed the resident's note and discussed the case with the resident. I agree with the resident's findings and plan as documented. SUBJECTIVE: Patient seen and examined in the ICU. Remains intubated, sedated. AC Mode of vent. No pressors. OBJECTIVE: Intake & Output 08/26/19 08/27/19 08/28/19 08/29/19 23:59 23:59 23:59 23:59 Intake Total 960 1520 2556.6 432.9 Output Total 600 3100 4100 100 Balance 360 -1580 -1543.4 332.9 Weight 255 lb 255 lb 272 lb 0.807 oz 268 lb 11.896 oz Last Vital Signs Temp Pulse Resp BP Pulse Ox 98.9 F 68 24 H 189/86 H 96 08/29/19 10:00 08/29/19 10:00 08/29/19 10:00 08/29/19 10:00 08/29/19 09:00 Active Medications Albuterol Sulfate (Ventolin 0.083% Nebulizer Soln -) 1 amp NEB Q6H PRN PRN Reason: SHORT OF BREATH/WHEEZING Albuterol/Ipratropium (Duoneb -) 1 amp NEB Q4H PRN PRN Reason: SHORTNESS OF BREATH Chlorhexidine Gluconate (Hibiclens For Decolonization -) 1 applic TP HS [facility] Last Admin: 08/28/19 23:02 Dose: 1 applic Hydrocortisone Sodium Succinate (Solu-Cortef -) 100 mg IVPUSH Q8H [facility] Last Admin: 08/29/19 06:40 Dose: 100 mg Famotidine/Sodium Chloride (Pepcid 20 Mg Premixed Ivpb -) 20 mg in 50 mls @ 100 mls/hr IVPB DAILY@0800 [facility] Last Admin: 08/29/19 09:08 Dose: 100 mls/hr Propofol (Diprivan -) 1,000,000 mcg in 100 mls @ 34.7 mls/hr IVPB TITR [facility]; Protocol Last Admin: 08/29/19 06:36 Dose: 30 mcg/kg/min, 20.82 mls/hr Fentanyl 500 mcg/ Dextrose 100 mls @ 20 mls/hr IVPB TITR [facility] Last Admin: 08/29/19 02:23 Dose: 25 mcg/hr, 5 mls/hr Piperacillin Sod/Tazobactam (Sod 2.25 gm/ Dextrose) 50 mls @ 100 mls/hr IVPB Q8H-IV [facility]; Protocol Last Admin: 08/29/19 09:11 Dose: 100 mls/hr Insulin Aspart (Novolog Vial Sliding Scale -) 1 vial SQ ACHS [facility]; Protocol Last Admin: 08/29/19 06:37 Dose: 2 units Levothyroxine Sodium (Synthroid Injection -) 100 mcg IVPUSH DAILY [facility] Last Admin: 08/29/19 10:15 Dose: 100 mcg Mupirocin (Bactroban Ointment (For Decolonization) -) 1 applic NS BID [facility] Stop: 09/01/19 09:59 Last Admin: 08/29/19 09:13 Dose: 1 applic Gen: intubated, sedated Heart: RRR Lung: decreased breath sounds at the bases Abd: soft, nontender Ext: + edema Laboratory Results - last 24 hr 08/24/19 08/25/19 08/25/19 14:00 11:18 13:41 WBC RBC Hgb Hct MCV MCH MCHC RDW Plt Count MPV Absolute Neuts (auto) Neutrophils % Lymphocytes % Monocytes % Eosinophils % Basophils % Nucleated RBC % Sodium Potassium Chloride Carbon Dioxide Anion Gap BUN Creatinine Est GFR (CKD-EPI)AfAm Est GFR (CKD-EPI)NonAf POC Glucometer Random Glucose Calcium Magnesium Total Bilirubin AST ALT Alkaline Phosphatase Total Protein Total Protein (PEP) Albumin Albumin (PEP) Globulin Albumin/Globulin Ratio Beta Globulins Procalcitonin 1.29 H MDMA & Metabolite Negative STEVEN M-Shant Screen Double Strand DNA Ab Glomerular Base Memb Ab Hep A IgM Ab Confirm Hepatitis A Ab Total Hep Bs Antigen Hep Bs Antibody Hep B Core Total Ab Hep B Core IgM Ab Hepatitis Be Antibody Hepatitis Be Antigen Crossmatch See Detail 08/26/19 08/26/19 08/28/19 21:25 21:25 11:39 WBC RBC Hgb Hct MCV MCH MCHC RDW Plt Count MPV Absolute Neuts (auto) Neutrophils % Lymphocytes % Monocytes % Eosinophils % Basophils % Nucleated RBC % Sodium Potassium Chloride Carbon Dioxide Anion Gap BUN Creatinine Est GFR (CKD-EPI)AfAm Est GFR (CKD-EPI)NonAf POC Glucometer 170 Random Glucose Calcium Magnesium Total Bilirubin AST ALT Alkaline Phosphatase Total Protein Total Protein (PEP) 5.6 L Albumin Albumin (PEP) 2.4 L Globulin 3.2 Albumin/Globulin Ratio 0.8 Beta Globulins 0.9 Procalcitonin MDMA & Metabolite STEVEN M-Shant Screen Negative Double Strand DNA Ab 7 Glomerular Base Memb Ab 5 Hep A IgM Ab Confirm Negative Hepatitis A Ab Total Negative Hep Bs Antigen Positive H Hep Bs Antibody Reactive Hep B Core Total Ab Positive H Hep B Core IgM Ab Negative Hepatitis Be Antibody Negative Hepatitis Be Antigen Positive H Crossmatch 08/28/19 08/28/19 08/29/19 16:51 23:07 05:43 WBC RBC Hgb Hct MCV MCH MCHC RDW Plt Count MPV Absolute Neuts (auto) Neutrophils % Lymphocytes % Monocytes % Eosinophils % Basophils % Nucleated RBC % Sodium Potassium Chloride Carbon Dioxide Anion Gap BUN Creatinine Est GFR (CKD-EPI)AfAm Est GFR (CKD-EPI)NonAf POC Glucometer 161 186 166 Random Glucose Calcium Magnesium Total Bilirubin AST ALT Alkaline Phosphatase Total Protein Total Protein (PEP) Albumin Albumin (PEP) Globulin Albumin/Globulin Ratio Beta Globulins Procalcitonin MDMA & Metabolite STEVEN M-Shant Screen Double Strand DNA Ab Glomerular Base Memb Ab Hep A IgM Ab Confirm Hepatitis A Ab Total Hep Bs Antigen Hep Bs Antibody Hep B Core Total Ab Hep B Core IgM Ab Hepatitis Be Antibody Hepatitis Be Antigen Crossmatch 08/29/19 08/29/19 05:45 05:45 WBC 12.7 H RBC 2.94 L Hgb 8.8 L Hct 25.8 L MCV 87.9 MCH 29.9 MCHC 34.0 RDW 18.0 H Plt Count 276 MPV 8.3 Absolute Neuts (auto) 11.1 H Neutrophils % 87.6 H Lymphocytes % 11.0 D Monocytes % 1.4 L Eosinophils % 0.0 Basophils % 0.0 Nucleated RBC % 0 Sodium 139 Potassium 4.1 Chloride 102 Carbon Dioxide 28 Anion Gap 9 BUN 43.9 H Creatinine 5.0 H Est GFR (CKD-EPI)AfAm 10.72 Est GFR (CKD-EPI)NonAf 9.25 POC Glucometer Random Glucose 176 H Calcium 7.3 L Magnesium 1.8 Total Bilirubin 0.4 AST 31 ALT 54 Alkaline Phosphatase 664 H Total Protein 6.3 L Total Protein (PEP) Albumin 2.3 L Albumin (PEP) Globulin Albumin/Globulin Ratio Beta Globulins Procalcitonin MDMA & Metabolite STEVEN M-Shant Screen Double Strand DNA Ab Glomerular Base Memb Ab Hep A IgM Ab Confirm Hepatitis A Ab Total Hep Bs Antigen Hep Bs Antibody Hep B Core Total Ab Hep B Core IgM Ab Hepatitis Be Antibody Hepatitis Be Antigen Crossmatch ASSESSMENT AND PLAN: Acute Hypercapneic Respiratory Failure Myxedema Coma UTI Acute Kidney Injury requiring HD COPD DM Anemia - HD per renal with ultrafiltration - monitor urine output, creatinine - continue antibiotics - continue hydrocortisone, synthroid - inhaled bronchodilators - O2 to keep SpO2 >90% - daily sedation vacations to assess mental status - spontaneous breathing trials as tolerated - enteral feeds - Daily leak tests - DVT/GI prophylaxis - Requires continued ICU monitoring Dr Alonso Critical care time spent in reviewing chart, evaluating patient and formulating plan 35 min
--- NOTE | 2019-08-29 12:13 | PN ---
Physical Exam: SUBJECTIVE: Patient seen and examined OBJECTIVE: GEN: inubated and sedated HEENT: NC/AT, No facial asymmetry. facial edems (eyes and lips) still present but improved. CV: S1/S2, RRR, no m/r/g LUNG: equal breath sounds bilaterally. . GI: soft, obese abdomen. EXTREMITIES: 2+ distal pulses. pitting LE edema. SKIN: warm, dry, normal turgor NEURO: sedated and intubated Vital Signs Period Temp Pulse Resp BP Sys/Amos Pulse Ox Last 24 Hr 98.2 F-99.3 F 59-85 24-24 117-189/67-86 96-98 Laboratory Results - last 24 hr 08/24/19 08/25/19 08/25/19 14:00 11:18 13:41 WBC RBC Hgb Hct MCV MCH MCHC RDW Plt Count MPV Absolute Neuts (auto) Neutrophils % Lymphocytes % Monocytes % Eosinophils % Basophils % Nucleated RBC % Sodium Potassium Chloride Carbon Dioxide Anion Gap BUN Creatinine Est GFR (CKD-EPI)AfAm Est GFR (CKD-EPI)NonAf POC Glucometer Random Glucose Calcium Magnesium Total Bilirubin AST ALT Alkaline Phosphatase Total Protein Total Protein (PEP) Albumin Albumin (PEP) Globulin Albumin/Globulin Ratio Beta Globulins Procalcitonin 1.29 H MDMA & Metabolite Negative STEVEN M-Shant Screen Double Strand DNA Ab Glomerular Base Memb Ab Hep A IgM Ab Confirm Hepatitis A Ab Total Hep Bs Antigen Hep Bs Antibody Hep B Core Total Ab Hep B Core IgM Ab Hepatitis Be Antibody Hepatitis Be Antigen HCV Quantitation HCV RNA log copies/mL Crossmatch See Detail 08/26/19 08/26/19 08/28/19 21:25 21:25 16:51 WBC RBC Hgb Hct MCV MCH MCHC RDW Plt Count MPV Absolute Neuts (auto) Neutrophils % Lymphocytes % Monocytes % Eosinophils % Basophils % Nucleated RBC % Sodium Potassium Chloride Carbon Dioxide Anion Gap BUN Creatinine Est GFR (CKD-EPI)AfAm Est GFR (CKD-EPI)NonAf POC Glucometer 161 Random Glucose Calcium Magnesium Total Bilirubin AST ALT Alkaline Phosphatase Total Protein Total Protein (PEP) 5.6 L Albumin Albumin (PEP) 2.4 L Globulin 3.2 Albumin/Globulin Ratio 0.8 Beta Globulins 0.9 Procalcitonin MDMA & Metabolite STEVEN M-Shant Screen Negative Double Strand DNA Ab 7 Glomerular Base Memb Ab 5 Hep A IgM Ab Confirm Negative Hepatitis A Ab Total Negative Hep Bs Antigen Positive H Hep Bs Antibody Reactive Hep B Core Total Ab Positive H Hep B Core IgM Ab Negative Hepatitis Be Antibody Negative Hepatitis Be Antigen Positive H HCV Quantitation Hcv not detected HCV RNA log copies/mL TNP Crossmatch 08/28/19 08/29/19 08/29/19 23:07 05:43 05:45 WBC 12.7 H RBC 2.94 L Hgb 8.8 L Hct 25.8 L MCV 87.9 MCH 29.9 MCHC 34.0 RDW 18.0 H Plt Count 276 MPV 8.3 Absolute Neuts (auto) 11.1 H Neutrophils % 87.6 H Lymphocytes % 11.0 D Monocytes % 1.4 L Eosinophils % 0.0 Basophils % 0.0 Nucleated RBC % 0 Sodium Potassium Chloride Carbon Dioxide Anion Gap BUN Creatinine Est GFR (CKD-EPI)AfAm Est GFR (CKD-EPI)NonAf POC Glucometer 186 166 Random Glucose Calcium Magnesium Total Bilirubin AST ALT Alkaline Phosphatase Total Protein Total Protein (PEP) Albumin Albumin (PEP) Globulin Albumin/Globulin Ratio Beta Globulins Procalcitonin MDMA & Metabolite STEVEN M-Shant Screen Double Strand DNA Ab Glomerular Base Memb Ab Hep A IgM Ab Confirm Hepatitis A Ab Total Hep Bs Antigen Hep Bs Antibody Hep B Core Total Ab Hep B Core IgM Ab Hepatitis Be Antibody Hepatitis Be Antigen HCV Quantitation HCV RNA log copies/mL Crossmatch 08/29/19 05:45 WBC RBC Hgb Hct MCV MCH MCHC RDW Plt Count MPV Absolute Neuts (auto) Neutrophils % Lymphocytes % Monocytes % Eosinophils % Basophils % Nucleated RBC % Sodium 139 Potassium 4.1 Chloride 102 Carbon Dioxide 28 Anion Gap 9 BUN 43.9 H Creatinine 5.0 H Est GFR (CKD-EPI)AfAm 10.72 Est GFR (CKD-EPI)NonAf 9.25 POC Glucometer Random Glucose 176 H Calcium 7.3 L Magnesium 1.8 Total Bilirubin 0.4 AST 31 ALT 54 Alkaline Phosphatase 664 H Total Protein 6.3 L Total Protein (PEP) Albumin 2.3 L Albumin (PEP) Globulin Albumin/Globulin Ratio Beta Globulins Procalcitonin MDMA & Metabolite STEVEN M-Shant Screen Double Strand DNA Ab Glomerular Base Memb Ab Hep A IgM Ab Confirm Hepatitis A Ab Total Hep Bs Antigen Hep Bs Antibody Hep B Core Total Ab Hep B Core IgM Ab Hepatitis Be Antibody Hepatitis Be Antigen HCV Quantitation HCV RNA log copies/mL Crossmatch Active Medications Generic Name Dose Route Start Last Admin Trade Name Juan Daniel PRN Reason Stop Dose Admin Albuterol Sulfate 1 amp 08/25/19 14:57 Ventolin 0.083% Nebulizer Soln - NEB Q6H PRN SHORT OF BREATH/WHEEZING Albuterol/Ipratropium 1 amp 08/25/19 14:57 Duoneb - NEB Q4H PRN SHORTNESS OF BREATH Chlorhexidine Gluconate 1 applic 08/27/19 22:00 08/28/19 23:02 Hibiclens For Decolonization - TP 1 applic HS [facility] Administration Hydrocortisone Sodium Succinate 100 mg 08/25/19 15:00 08/29/19 06:40 Solu-Cortef - IVPUSH 100 mg Q8H [facility] Administration Famotidine/Sodium Chloride 20 mg in 50 mls @ 100 mls/hr 08/26/19 08:00 09:08 Pepcid 20 Mg Premixed Ivpb - IVPB 100 mls/hr DAILY@0800 [facility] Administration Propofol 1,000,000 mcg in 100 mls @ 34.7 mls/hr 08/25/19 18:45 08/29/19 06:36 Diprivan - IVPB 30 mcg/kg/min TITR [facility] 20.82 mls/hr Administration Protocol 50 MCG/KG/MIN Fentanyl 500 mcg/ Dextrose 100 mls @ 20 mls/hr 08/25/19 18:45 08/29/19 02:23 IVPB 25 mcg/hr TITR [facility] 5 mls/hr Administration 100 MCG/HR Piperacillin Sod/Tazobactam 50 mls @ 100 mls/hr 08/26/19 02:00 08/29/19 09:11 Sod 2.25 gm/ Dextrose IVPB 100 mls/hr Q8H-IV [facility] Administration Protocol Insulin Aspart 1 vial 08/26/19 07:00 08/29/19 06:37 Novolog Vial Sliding Scale - SQ 2 units ACHS [facility] Administration Protocol Levothyroxine Sodium 100 mcg 08/26/19 10:00 08/29/19 10:15 Synthroid Injection - IVPUSH 100 mcg DAILY [facility] Administration Mupirocin 1 applic 08/27/19 10:00 08/29/19 09:13 Bactroban Ointment (For Decolonization) - NS 09/01/19 09:59 1 applic BID [facility] Administration ASSESSMENT/PLAN: 54 y.o F hx of hypertension, hyperlipidemia, diabetes, COPD, anemia, thyroid cancer 6 years ago CXR decreased right pleural effusion right lower lung zone airspace opacity left retrocardiac opacity left retrocardiac opacity concerning for atelactasis, pleural effusion improved from previous x-rays NEURO:sedated and intubated. suctioning and evalution of cough leak peformed. no cough leak observed. ET tube will be kept in CV: PULM:Acute Hypercapneic Respiratory Failure, COPD -SBT will be attempted as tolerated -pause sedation daily to for mental status evaluation -inhaled bronchodilators -keep O2 sat above 90% RENAL:LUCY -hemodialysis yesterday -monitor urine ouptut and creatinine -Dr Pena recommends 80mg of Lasix and HD for tomorrow for volume overload. FENGI: -enteral feeds ENDO:Myxedema Coma, type 2 diabetes -continue hydrocortisone and synthroid ID:UTI continue antibiotics monitor white count Heme/Onc: anemia -monitor cbc LINES/TUBES/DRAINS: line for dialysis in right neck since 08/27/2019 Visit type - Emergency Visit Emergency Visit: Yes ED Registration Date: 08/25/19 Care time: The patient presented to the Emergency Department on the above date and was hospitalized for further evaluation of their emergent condition. - New Patient This patient is new to me today: No - Critical Care Critical Care patient: No - Discharge Referral Referred to [facility] Med P.C.: No ATTENDING PHYSICIAN STATEMENT I saw and evaluated the patient. I reviewed the resident's note and discussed the case with the resident. I agree with the resident's findings and plan as documented. SUBJECTIVE: OBJECTIVE: ASSESSMENT AND PLAN:
[2019-08-29] MEDS ORDERED: FUROSEMIDE 40 MG/4 ML INJECTABLE VIAL IVPUSH ONE (14:06)
--- NOTE | 2019-08-29 15:38 | PN ---
Progress Note (short form) - Note Progress Note: 54 year old female history of HTN, HLD, DM COPD, Anemia thyroid cancer. Patient came with ams and had CHF, renal failure , anemia . Paitnet was intubated, she was hypothermic. She is on sedation . Paitent has ct head and there is mild dilation of ventricles. There is no evidence of seizure like activity , no high grade fever or neck stiffness. Patient has no head trauma Patient was awake on reduced sedation earlier this morning. There is no seizure. patient was awake and moving hand opening eye. Now she is back to sedation . NEUROLOGICAL EXAMINATION sedated and intubated , neck is supple reponds to painful stimuli and opens eye to verbal command pupils reactive no face asymmetry rest of neuro exam is not possible ct head reviewed and mild ventricular dilatation and this could be due to intercurrent illness Assessment/Plan4 year old female history of HTN, HLD, DM COPD, Anemia thyroid cancer. Patient came with ams and had CHF, renal failure , anemia . Patient has Metabolic encephalopathy, there is no evidence of status epilepticus, meningitis or stroke Plan: will review mental status once she is off sedaiton. Thanking you so much Hill Hayden MD
[2019-08-29] MEDS ORDERED: SODIUM CHLORIDE 250 ML IV PRN (16:10)
--- NOTE | 2019-08-29 16:10 | PN ---
Progress Note, Physician History of Present Illness: Pt seen and examined at bedside. She remains in the ICU. She remains intubated. - Current Medication List Current Medications: Active Medications Albuterol Sulfate (Ventolin 0.083% Nebulizer Soln -) 1 amp NEB Q6H PRN PRN Reason: SHORT OF BREATH/WHEEZING Albuterol/Ipratropium (Duoneb -) 1 amp NEB Q4H PRN PRN Reason: SHORTNESS OF BREATH Chlorhexidine Gluconate (Hibiclens For Decolonization -) 1 applic TP HS [facility] Last Admin: 08/28/19 23:02 Dose: 1 applic Hydrocortisone Sodium Succinate (Solu-Cortef -) 100 mg IVPUSH Q12H [facility] Famotidine/Sodium Chloride (Pepcid 20 Mg Premixed Ivpb -) 20 mg in 50 mls @ 100 mls/hr IVPB DAILY@0800 [facility] Last Admin: 08/29/19 09:08 Dose: 100 mls/hr Propofol (Diprivan -) 1,000,000 mcg in 100 mls @ 34.7 mls/hr IVPB TITR [facility]; Protocol Last Admin: 08/29/19 13:00 Dose: 30 mcg/kg/min, 20.82 mls/hr Fentanyl 500 mcg/ Dextrose 100 mls @ 20 mls/hr IVPB TITR [facility] Last Admin: 08/29/19 02:23 Dose: 25 mcg/hr, 5 mls/hr Piperacillin Sod/Tazobactam (Sod 2.25 gm/ Dextrose) 50 mls @ 100 mls/hr IVPB Q8H-IV [facility]; Protocol Last Admin: 08/29/19 09:11 Dose: 100 mls/hr Insulin Aspart (Novolog Vial Sliding Scale -) 1 vial SQ ACHS [facility]; Protocol Last Admin: 08/29/19 12:30 Dose: 2 units Levothyroxine Sodium (Synthroid Injection -) 100 mcg IVPUSH DAILY [facility] Last Admin: 08/29/19 10:15 Dose: 100 mcg Mupirocin (Bactroban Ointment (For Decolonization) -) 1 applic NS BID [facility] Stop: 09/01/19 09:59 Last Admin: 08/29/19 09:13 Dose: 1 applic - Objective Vital Signs: Vital Signs Temperature 98.9 F 08/29/19 10:00 Pulse Rate 68 08/29/19 12:00 Respiratory Rate 24 H 08/29/19 12:00 Blood Pressure 149/73 08/29/19 12:00 O2 Sat by Pulse Oximetry (%) 96 08/29/19 09:00 Constitutional: Yes: Calm Eyes: Yes: Conjunctiva Clear HENT: Yes: Atraumatic Cardiovascular: Yes: S1, S2 Respiratory: Yes: Intubated, Mechanically Ventilated Gastrointestinal: Yes: Soft, Abdomen, Obese Genitourinary: Yes: Mahoney Present Musculoskeletal: Yes: Muscle Weakness Edema: Yes Edema: LUE: 1+, RUE: 1+, LLE: 1+, RLE: 1+ Neurological: Yes: Lethargy Labs: CBC, BMP 08/29/19 05:45 08/29/19 05:45 INR, PTT INR 0.89 (0.83-1.09) 08/25/19 11:00 - ....Imaging Chest X-ray: Report Reviewed Problem List - Problems (1) AMS (altered mental status) Code(s): R41.82 - ALTERED MENTAL STATUS, UNSPECIFIED (2) Acute metabolic encephalopathy Code(s): G93.41 - METABOLIC ENCEPHALOPATHY (3) Acute renal failure Code(s): N17.9 - ACUTE KIDNEY FAILURE, UNSPECIFIED (4) Diabetes Code(s): E11.9 - TYPE 2 DIABETES MELLITUS WITHOUT COMPLICATIONS (5) Hypercapnic respiratory failure Code(s): J96.92 - RESPIRATORY FAILURE, UNSPECIFIED WITH HYPERCAPNIA (6) Hypothermia Code(s): T68.XXXA - HYPOTHERMIA, INITIAL ENCOUNTER (7) Morbid obesity Code(s): E66.01 - MORBID (SEVERE) OBESITY DUE TO EXCESS CALORIES Assessment/Plan Current Medications Generic Name Dose Route Start Last Admin Trade Name Freq PRN Reason Stop Dose Admin Albuterol Sulfate 1 amp 08/25/19 14:57 Ventolin 0.083% Nebulizer Soln - NEB Q6H PRN SHORT OF BREATH/WHEEZING Albuterol/Ipratropium 1 amp 08/25/19 14:57 Duoneb - NEB Q4H PRN SHORTNESS OF BREATH Chlorhexidine Gluconate 1 applic 08/27/19 22:00 08/28/19 23:02 Hibiclens For Decolonization - TP 1 applic HS [facility] Administration Hydrocortisone Sodium Succinate 100 mg 08/29/19 23:00 Solu-Cortef - IVPUSH Q12H [facility] Famotidine/Sodium Chloride 20 mg in 50 mls @ 100 mls/hr 08/26/19 08:00 09:08 Pepcid 20 Mg Premixed Ivpb - IVPB 100 mls/hr DAILY@0800 [facility] Administration Propofol 1,000,000 mcg in 100 mls @ 34.7 mls/hr 08/25/19 18:45 08/29/19 13:00 Diprivan - IVPB 30 mcg/kg/min TITR [facility] 20.82 mls/hr Administration Protocol 50 MCG/KG/MIN Fentanyl 500 mcg/ Dextrose 100 mls @ 20 mls/hr 08/25/19 18:45 08/29/19 02:23 IVPB 25 mcg/hr TITR [facility] 5 mls/hr Administration 100 MCG/HR Piperacillin Sod/Tazobactam 50 mls @ 100 mls/hr 08/26/19 02:00 08/29/19 09:11 Sod 2.25 gm/ Dextrose IVPB 100 mls/hr Q8H-IV [facility] Administration Protocol Insulin Aspart 1 vial 08/26/19 07:00 08/29/19 12:30 Novolog Vial Sliding Scale - SQ 2 units ACHS [facility] Administration Protocol Levothyroxine Sodium 100 mcg 08/26/19 10:00 08/29/19 10:15 Synthroid Injection - IVPUSH 100 mcg DAILY [facility] Administration Mupirocin 1 applic 08/27/19 10:00 08/29/19 09:13 Bactroban Ointment (For Decolonization) - NS 09/01/19 09:59 1 applic BID [facility] Administration Laboratory Tests 08/25/19 08/26/19 08/26/19 12:40 21:25 21:25 Opiates Screen Negative Methadone Screen Negative Barbiturate Screen Negative Phencyclidine Screen Negative STEVEN M-Shant Pending Screen Negative c-ANCA Pending Proteinase 3 (PR3) Pending p-ANCA Pending Atypical p-ANCA Pending Myeloperoxidase Ab Pending Double Strand DNA Ab 7 Glomerular Base Memb Ab 5 Impression 1. LUCY 2. fluid overload 3. acute respiratory failure 4. hypothyroidism with tsh of 100 5. 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 urine tox pos for mdma 7. mild rhabdo Plan - HD tomorrow - can give lasix today - vent support - follow serologies - monitor urine output - daily cxr - nepro for feeds
--- NOTE | 2019-08-29 16:51 | PN ---
Progress Note, Physician History of Present Illness: continues to be intubated - Current Medication List Current Medications: Active Medications Albuterol Sulfate (Ventolin 0.083% Nebulizer Soln -) 1 amp NEB Q6H PRN PRN Reason: SHORT OF BREATH/WHEEZING Albuterol/Ipratropium (Duoneb -) 1 amp NEB Q4H PRN PRN Reason: SHORTNESS OF BREATH Chlorhexidine Gluconate (Hibiclens For Decolonization -) 1 applic TP HS [facility] Last Admin: 08/28/19 23:02 Dose: 1 applic Hydrocortisone Sodium Succinate (Solu-Cortef -) 100 mg IVPUSH Q12H [facility] Famotidine/Sodium Chloride (Pepcid 20 Mg Premixed Ivpb -) 20 mg in 50 mls @ 100 mls/hr IVPB DAILY@0800 [facility] Last Admin: 08/29/19 09:08 Dose: 100 mls/hr Propofol (Diprivan -) 1,000,000 mcg in 100 mls @ 34.7 mls/hr IVPB TITR [facility]; Protocol Last Admin: 08/29/19 13:00 Dose: 30 mcg/kg/min, 20.82 mls/hr Fentanyl 500 mcg/ Dextrose 100 mls @ 20 mls/hr IVPB TITR [facility] Last Admin: 08/29/19 02:23 Dose: 25 mcg/hr, 5 mls/hr Piperacillin Sod/Tazobactam (Sod 2.25 gm/ Dextrose) 50 mls @ 100 mls/hr IVPB Q8H-IV [facility]; Protocol Last Admin: 08/29/19 09:11 Dose: 100 mls/hr Sodium Chloride (Normal Saline -) 250 mls @ 3,000 mls/hr IV PRN PRN PRN Reason: Hypotension during Dialysis Stop: 08/30/19 16:10 Insulin Aspart (Novolog Vial Sliding Scale -) 1 vial SQ ACHS [facility]; Protocol Last Admin: 08/29/19 12:30 Dose: 2 units Levothyroxine Sodium (Synthroid Injection -) 100 mcg IVPUSH DAILY [facility] Last Admin: 08/29/19 10:15 Dose: 100 mcg Mupirocin (Bactroban Ointment (For Decolonization) -) 1 applic NS BID [facility] Stop: 09/01/19 09:59 Last Admin: 08/29/19 09:13 Dose: 1 applic - Objective Vital Signs: Vital Signs Temperature 98.9 F 08/29/19 10:00 Pulse Rate 68 08/29/19 12:00 Respiratory Rate 24 H 08/29/19 12:00 Blood Pressure 149/73 08/29/19 12:00 O2 Sat by Pulse Oximetry (%) 96 08/29/19 09:00 Constitutional: Yes: Obese, Other Cardiovascular: Yes: S1, S2 Respiratory: Yes: Intubated, Mechanically Ventilated Gastrointestinal: Yes: Normal Bowel Sounds, Soft Musculoskeletal: Yes: WNL Extremities: Yes: WNL Neurological: Yes: Other Psychiatric: Yes: Other Labs: CBC, BMP 08/29/19 05:45 08/29/19 05:45 INR, PTT INR 0.89 (0.83-1.09) 08/25/19 11:00 Assessment/Plan Problem List - Problems (1) LUCY (acute kidney injury) Code(s): N17.9 - ACUTE KIDNEY FAILURE, UNSPECIFIED (2) AMS (altered mental status) Code(s): R41.82 - ALTERED MENTAL STATUS, UNSPECIFIED (3) Acute metabolic encephalopathy Code(s): G93.41 - METABOLIC ENCEPHALOPATHY (4) Acute respiratory failure Code(s): J96.00 - ACUTE RESPIRATORY FAILURE, UNSP W HYPOXIA OR HYPERCAPNIA (5) Anemia Code(s): D64.9 - ANEMIA, UNSPECIFIED (6) COPD (chronic obstructive pulmonary disease) Code(s): J44.9 - CHRONIC OBSTRUCTIVE PULMONARY DISEASE, UNSPECIFIED (7) Diabetes Code(s): E11.9 - TYPE 2 DIABETES MELLITUS WITHOUT COMPLICATIONS (8) HTN (hypertension) Code(s): I10 - ESSENTIAL (PRIMARY) HYPERTENSION (9) Hypercapnic respiratory failure Code(s): J96.92 - RESPIRATORY FAILURE, UNSPECIFIED WITH HYPERCAPNIA (10) Hypothermia Code(s): T68.XXXA - HYPOTHERMIA, INITIAL ENCOUNTER (11) Morbid obesity Code(s): E66.01 - MORBID (SEVERE) OBESITY DUE TO EXCESS CALORIES (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 - MYXEDEMA COMA (13) Thyroid cancer Code(s): C73 - MALIGNANT NEOPLASM OF THYROID GLAND Assessment/Plan Acute respiratory failure on MV/sedation Acute metabolic encephalopathy AMS Myxedema coma DM LUCY on CKD Obesity Hx of thyroid CA s/p thyroidectomy HTN HLD COPD Anemia --pt remains intubated/sedated ct abx --monitor wbc trend, rest of care per ICU nutrition cc: 40 min
[2019-08-29 17:07] LABS: ATYPICAL pANCA <1:20 titer (Neg:<1:20); C-ANCA <1:20 titer (Neg:<1:20)
[2019-08-29] MEDS ORDERED: fentaNYL CITRATE 250 MCG/5 ML VIAL ONE (18:04)
[2019-08-29] MEDS: CHLORHEXIDINE GLUCONATE 4% CLEANSER FOR DECOLONIZATION TP SCH (23:03)
[2019-08-30] MEDS ORDERED: PIPERACILLIN/TAZOBACTAM 2.25 GM VIAL IVPB ONE ×2 (01:51→10:33)
[2019-08-30] MEDS ORDERED: DEXTROSE 5%-WATER - 50 ML IVPB ONE ×2 (01:51→10:33)
[2019-08-30] MEDS ORDERED: fentaNYL CITRATE 250 MCG/5 ML VIAL ONE ×2 (01:53→17:24)
[2019-08-30] MEDS: PIPERACILLIN/TAZOB 2.25 GM 2.25 GM in DEXTROSE 5%-WATER - 50 ML IVPB SCH ×2 (02:00→10:49)
[2019-08-30] MEDS: INSULIN SLIDING SCALE (NOVOLOG) 1 VIAL SQ SCH ×4 (06:45→22:35)
[2019-08-30 06:57] LABS: BASO % 0.1 % (0-2.0); HEMOGLOBIN 8.3 GM/dL (10.7-15.3); LYMPH % 12.6 % (8-40); MCH 29.7 pg (25.7-33.7); MCHC 33.4 g/dl (32.0-36.0); MEAN PLT VOLUME 8.8 fl (7.5-11.1); MONO % 1.7 % (3.8-10.2); NEUT % 85.6 % (42.8-82.8); PLATELET COUNT 270 K/MM3 (134-434); RBC 2.81 M/mm3 (3.60-5.2); RDW 17.9 % (11.6-15.6); WHITE BLOOD COUNT 10.9 K/mm3 (4.0-10.0)
[2019-08-30 07:35] LABS: BILIRUBIN,TOTAL 0.4 mg/dL (0.2-1); BLOOD UREA NITROGEN 53.3 mg/dL (7-18); CALCIUM 7.1 mg/dL (8.5-10.1); CREATININE 5.5 mg/dL (0.55-1.3); MAGNESIUM 1.9 mg/dL (1.8-2.4); PHOSPHOROUS 6.4 mg/dL (2.5-4.9); POTASSIUM 4.2 mmol/L (3.5-5.1); TOT PROT 5.7 g/dl (6.4-8.2)
--- NOTE | 2019-08-30 08:42 | PN ---
Progress Note, Physician Chief Complaint: orally intubated and sedated. Respomds to noxious stimuli. Remains on propofol and fentanyl History of Present Illness: Patient is a 54 year old morbid obese female with a significant PMD Htn, HLD, DM , COPD, anemia, thyroid cancer 6 years ago. Patient brought into the ED for altered mental status and acute shortness of breath. She was found to have an elevated TSH, low t4 and hypothermic (96f-97-on mariana hugger). Urine is + for ecstasy. She also has renal failure with a creat of 7.7, bun of 65,mag 1.6, elevated ast/alt. In the ED she was placed on bipap & admitted for myxedema coma, acute renal failure, acute metabolic encephalopathy, metabolic acidosis, hypercapneic respiratory failure. Repeat abg without improvement of acidosis, and elevated co2. patient intubated to protect airway. - Current Medication List Current Medications: Active Medications Albuterol Sulfate (Ventolin 0.083% Nebulizer Soln -) 1 amp NEB Q6H PRN PRN Reason: SHORT OF BREATH/WHEEZING Albuterol/Ipratropium (Duoneb -) 1 amp NEB Q4H PRN PRN Reason: SHORTNESS OF BREATH Chlorhexidine Gluconate (Hibiclens For Decolonization -) 1 applic TP HS [facility] Last Admin: 08/29/19 23:03 Dose: 1 applic Hydrocortisone Sodium Succinate (Solu-Cortef -) 100 mg IVPUSH Q12H [facility] Last Admin: 08/29/19 23:03 Dose: 100 mg Famotidine/Sodium Chloride (Pepcid 20 Mg Premixed Ivpb -) 20 mg in 50 mls @ 100 mls/hr IVPB DAILY@0800 [facility] Last Admin: 08/29/19 09:08 Dose: 100 mls/hr Propofol (Diprivan -) 1,000,000 mcg in 100 mls @ 34.7 mls/hr IVPB TITR [facility]; Protocol Last Admin: 08/29/19 23:06 Dose: 30 mcg/kg/min, 20.82 mls/hr Fentanyl 500 mcg/ Dextrose 100 mls @ 20 mls/hr IVPB TITR [facility] Last Admin: 08/29/19 18:00 Dose: 50 mcg/hr, 10 mls/hr Piperacillin Sod/Tazobactam (Sod 2.25 gm/ Dextrose) 50 mls @ 100 mls/hr IVPB Q8H-IV [facility]; Protocol Last Admin: 08/30/19 02:00 Dose: 100 mls/hr Sodium Chloride (Normal Saline -) 250 mls @ 3,000 mls/hr IV PRN PRN PRN Reason: Hypotension during Dialysis Stop: 08/30/19 16:10 Insulin Aspart (Novolog Vial Sliding Scale -) 1 vial SQ ACHS [facility]; Protocol Last Admin: 08/29/19 23:06 Dose: 2 units Levothyroxine Sodium (Synthroid Injection -) 100 mcg IVPUSH DAILY [facility] Last Admin: 08/29/19 10:15 Dose: 100 mcg Mupirocin (Bactroban Ointment (For Decolonization) -) 1 applic NS BID [facility] Stop: 09/01/19 09:59 Last Admin: 08/29/19 23:03 Dose: 1 applic - Objective Vital Signs: Vital Signs Temperature 97.9 F 08/30/19 06:45 Pulse Rate 72 08/30/19 07:50 Respiratory Rate 23 H 08/30/19 07:50 Blood Pressure 174/94 H 08/30/19 07:50 O2 Sat by Pulse Oximetry (%) 96 08/29/19 21:00 Additional Findings/Remarks: Constitutional: Yes: Other (Intubated and sedated) Eyes: Yes: Other (scleral edema) HENT: Yes: WNL, Atraumatic, Normocephalic Neck: Yes: WNL, Supple, Trachea Midline. RIJ dialysis cath noted (tip @ SVC) Cardiovascular: Yes: Bradycardia (HR 50s) Respiratory: Yes: Mechanically Ventilated (orally intubated on AC, FIO2 40) Gastrointestinal: Yes: Soft, Abdomen, Obese ...Rectal Exam: Yes: Deferred Genitourinary: Yes: Mahoney Present Breast(s): Yes: WNL Extremities: Yes: Delayed Capillary Refill Edema: Yes Edema: LUE: 2+, RUE: 2+, LLE: 3+, RLE: 3+ Peripheral Pulses WNL: No Peripheral Pulses: Left Radial: 1+, Right Radial: 1+, Left Doralis Pedis: 1+, Right Dorsalis Pedis: 1+, Left Femoral: 1+, Right Femoral: 1+ Integumentary: Yes: WNL Neurological: Yes: Other (Intubated and sedated) Psychiatric: Yes: Other (Intubated and sedated) Labs: CBC, BMP 08/30/19 05:00 08/30/19 05:00 INR, PTT INR 0.89 (0.83-1.09) 08/25/19 11:00 Problem List - Problems (1) HTN (hypertension) Assessment/Plan: on lisinipril/ nifedipine at home being held will restart when extubated if needed Code(s): I10 - ESSENTIAL (PRIMARY) HYPERTENSION (2) HLD (hyperlipidemia) Assessment/Plan: c/w atorvastatin when extubated Code(s): E78.5 - HYPERLIPIDEMIA, UNSPECIFIED (3) COPD (chronic obstructive pulmonary disease) Assessment/Plan: duo nebs q4h mechanically ventilated on AC Code(s): J44.9 - CHRONIC OBSTRUCTIVE PULMONARY DISEASE, UNSPECIFIED (4) Anemia Assessment/Plan: recieved 1 u PRBC since admission Hgb 8.8 continue to monitor Code(s): D64.9 - ANEMIA, UNSPECIFIED (5) Thyroid cancer Code(s): C73 - MALIGNANT NEOPLASM OF THYROID GLAND (6) Acute respiratory failure Assessment/Plan: remains orally intuabted no weaning attempts oral care as per nursing turn and reposition appreciate ICU level of care Code(s): J96.00 - ACUTE RESPIRATORY FAILURE, UNSP W HYPOXIA OR HYPERCAPNIA (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 Code(s): F16.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 ABUSE, UNCOMPLICATED (8) LUCY (acute kidney injury) Assessment/Plan: Cr 2.8 HD as per renal avoid nephrotoxic agents Code(s): N17.9 - ACUTE KIDNEY FAILURE, UNSPECIFIED (9) Acute metabolic encephalopathy Assessment/Plan: sedated on propofol amd fentanyl following simple commands during sedation interruption Code(s): G93.41 - METABOLIC ENCEPHALOPATHY (10) Morbid obesity Code(s): E66.01 - MORBID (SEVERE) OBESITY DUE TO EXCESS CALORIES (11) Prophylactic measure Assessment/Plan: FEN no additional IVF TF with nepro vis OGT-tolerating well monitor electrolytes DVT SCDs Dispo requiring ICU care full code discharge planning Code(s): Z29.9 - ENCOUNTER FOR PROPHYLACTIC MEASURES, UNSPECIFIED (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 Assessment/Plan: IV synthroid endocrine following Code(s): E03.5 - MYXEDEMA COMA Visit type - Emergency Visit Emergency Visit: Yes ED Registration Date: 08/25/19 Care time: The patient presented to the Emergency Department on the above date and was hospitalized for further evaluation of their emergent condition. - New Patient This patient is new to me today: Yes Date on this admission: 08/30/19 - Critical Care Critical Care patient: No - Discharge Referral Referred to [facility] Med [facility] No
[2019-08-30] MEDS: FAMOTIDINE 20 MG/50 ML IVPB 20 MG/50 ML MG IVPB SCH (09:00)
[2019-08-30] MEDS ORDERED: PT OWN MED DRAWER 7, Y5N ONE (10:32)
--- NOTE | 2019-08-30 10:32 | PN ---
Teaching Attending Note Name of Resident: Marta Chong ATTENDING PHYSICIAN STATEMENT I saw and evaluated the patient. I reviewed the resident's note and discussed the case with the resident. I agree with the resident's findings and plan as documented. SUBJECTIVE: Patient seen and examined in the ICU. Remains intubated, sedated. AC Mode of vent. No pressors. Overall edema is improving. OBJECTIVE: Intake & Output 08/27/19 08/28/19 08/29/19 08/30/19 23:59 23:59 23:59 23:59 Intake Total 1520 2556.6 1386.9 864 Output Total 3100 4100 350 4050 Balance -1580 -1543.4 1036.9 -3186 Weight 255 lb 272 lb 0.807 oz 268 lb 11.896 oz 268 lb 11.896 oz Last Vital Signs Temp Pulse Resp BP Pulse Ox 97.9 F 60 24 H 184/89 H 98 08/30/19 06:45 08/30/19 10:26 08/30/19 10:26 08/30/19 10:26 08/30/19 08:15 Active Medications Albuterol Sulfate (Ventolin 0.083% Nebulizer Soln -) 1 amp NEB Q6H PRN PRN Reason: SHORT OF BREATH/WHEEZING Albuterol/Ipratropium (Duoneb -) 1 amp NEB Q4H PRN PRN Reason: SHORTNESS OF BREATH Chlorhexidine Gluconate (Hibiclens For Decolonization -) 1 applic TP HS [facility] Last Admin: 08/29/19 23:03 Dose: 1 applic Hydrocortisone Sodium Succinate (Solu-Cortef -) 100 mg IVPUSH Q12H [facility] Last Admin: 08/29/19 23:03 Dose: 100 mg Famotidine/Sodium Chloride (Pepcid 20 Mg Premixed Ivpb -) 20 mg in 50 mls @ 100 mls/hr IVPB DAILY@0800 [facility] Last Admin: 08/29/19 09:08 Dose: 100 mls/hr Propofol (Diprivan -) 1,000,000 mcg in 100 mls @ 34.7 mls/hr IVPB TITR [facility]; Protocol Last Admin: 08/29/19 23:06 Dose: 30 mcg/kg/min, 20.82 mls/hr Fentanyl 500 mcg/ Dextrose 100 mls @ 20 mls/hr IVPB TITR [facility] Last Admin: 08/29/19 18:00 Dose: 50 mcg/hr, 10 mls/hr Piperacillin Sod/Tazobactam (Sod 2.25 gm/ Dextrose) 50 mls @ 100 mls/hr IVPB Q8H-IV [facility]; Protocol Last Admin: 08/30/19 02:00 Dose: 100 mls/hr Sodium Chloride (Normal Saline -) 250 mls @ 3,000 mls/hr IV PRN PRN PRN Reason: Hypotension during Dialysis Stop: 08/30/19 16:10 Insulin Aspart (Novolog Vial Sliding Scale -) 1 vial SQ ACHS [facility]; Protocol Last Admin: 08/29/19 23:06 Dose: 2 units Levothyroxine Sodium (Synthroid Injection -) 100 mcg IVPUSH DAILY [facility] Last Admin: 08/29/19 10:15 Dose: 100 mcg Mupirocin (Bactroban Ointment (For Decolonization) -) 1 applic NS BID [facility] Stop: 09/01/19 09:59 Last Admin: 08/29/19 23:03 Dose: 1 applic Gen: intubated, sedated Heart: RRR Lung: decreased breath sounds at the bases Abd: soft, nontender Ext: + edema Laboratory Results - last 24 hr 08/25/19 08/26/19 08/29/19 11:18 21:25 18:00 WBC RBC Hgb Hct MCV MCH MCHC RDW Plt Count MPV Absolute Neuts (auto) Neutrophils % Lymphocytes % Monocytes % Eosinophils % Basophils % Nucleated RBC % Sodium Potassium Chloride Carbon Dioxide Anion Gap BUN Creatinine Est GFR (CKD-EPI)AfAm Est GFR (CKD-EPI)NonAf POC Glucometer 154 Random Glucose Calcium Phosphorus Magnesium Total Bilirubin AST ALT Alkaline Phosphatase Total Protein Albumin c-ANCA <1:20 Proteinase 3 (PR3) <3.5 p-ANCA <1:20 Atypical p-ANCA <1:20 Myeloperoxidase Ab <9.0 Glomerular Base Memb Ab 5 HCV Quantitation Hcv not detected HCV RNA log copies/mL TNP Blood Type O POSITIVE Antibody Screen Negative Crossmatch See Detail 08/29/19 08/30/19 08/30/19 23:04 05:00 05:00 WBC 10.9 H RBC 2.81 L Hgb 8.3 L Hct 25.0 L MCV 89.0 MCH 29.7 MCHC 33.4 RDW 17.9 H Plt Count 270 MPV 8.8 Absolute Neuts (auto) 9.4 H Neutrophils % 85.6 H Lymphocytes % 12.6 Monocytes % 1.7 L Eosinophils % 0.0 Basophils % 0.1 D Nucleated RBC % 0 Sodium 137 Potassium 4.2 Chloride 102 Carbon Dioxide 26 Anion Gap 10 BUN 53.3 H Creatinine 5.5 H Est GFR (CKD-EPI)AfAm 9.55 Est GFR (CKD-EPI)NonAf 8.24 POC Glucometer 183 Random Glucose 190 H Calcium 7.1 L Phosphorus 6.4 H Magnesium 1.9 Total Bilirubin 0.4 AST 26 ALT 43 Alkaline Phosphatase 566 H Total Protein 5.7 L Albumin 2.0 L c-ANCA Proteinase 3 (PR3) p-ANCA Atypical p-ANCA Myeloperoxidase Ab Glomerular Base Memb Ab HCV Quantitation HCV RNA log copies/mL Blood Type Antibody Screen Crossmatch 08/30/19 05:46 WBC RBC Hgb Hct MCV MCH MCHC RDW Plt Count MPV Absolute Neuts (auto) Neutrophils % Lymphocytes % Monocytes % Eosinophils % Basophils % Nucleated RBC % Sodium Potassium Chloride Carbon Dioxide Anion Gap BUN Creatinine Est GFR (CKD-EPI)AfAm Est GFR (CKD-EPI)NonAf POC Glucometer 182 Random Glucose Calcium Phosphorus Magnesium Total Bilirubin AST ALT Alkaline Phosphatase Total Protein Albumin c-ANCA Proteinase 3 (PR3) p-ANCA Atypical p-ANCA Myeloperoxidase Ab Glomerular Base Memb Ab HCV Quantitation HCV RNA log copies/mL Blood Type Antibody Screen Crossmatch ASSESSMENT AND PLAN: Acute Hypercapneic Respiratory Failure Myxedema Coma UTI Acute Kidney Injury requiring HD COPD DM Anemia - HD per renal with ultrafiltration - monitor urine output, creatinine - continue antibiotics - continue hydrocortisone, synthroid - inhaled bronchodilators - O2 to keep SpO2 >90% - daily sedation vacations to assess mental status - spontaneous breathing trials as tolerated - enteral feeds - Daily leak tests - DVT/GI prophylaxis - Requires continued ICU monitoring Dr Alonso Critical care time spent in reviewing chart, evaluating patient and formulating plan 35 min
--- NOTE | 2019-08-30 10:48 | PN ---
Progress Note (short form) - Note Progress Note: 54 year old female history of HTN, HLD, DM COPD, Anemia thyroid cancer. Patient came with ams and had CHF, renal failure , anemia . Paitnet was intubated, she was hypothermic. She is on sedation . Paitent has ct head and there is mild dilation of ventricles. There is no evidence of seizure like activity , no high grade fever or neck stiffness. Patient has no head trauma Patient was awake on reduced sedation earlier this morning. There is no seizure. Patient is on sedation and no response to verbal or pain stimuli. At time she opens eyes NEUROLOGICAL EXAMINATION sedated and intubated , neck is supple reponds to painful stimuli and opens eye to verbal command pupils reactive no face asymmetry rest of neuro exam is not possible ct head reviewed and mild ventricular dilatation and this could be due to intercurrent illness Assessment/Plan4 year old female history of HTN, HLD, DM COPD, Anemia thyroid cancer. Patient came with ams and had CHF, renal failure , anemia . Patient has Metabolic encephalopathy, there is no evidence of status epilepticus, meningitis or stroke Plan: will review mental status once she is off sedaiton. Thanking you so much Hill Hayden MD
[2019-08-30] MEDS: HYDROCORTISONE SOD SUCCINATE 100 MG/2 ML VIAL IVPUSH SCH ×2 (10:49→22:35)
[2019-08-30] MEDS: MUPIROCIN 2% TOPICAL OINTMENT FOR DECOLONIZATION NS SCH ×2 (10:49→22:28)
[2019-08-30] MEDS: LEVOTHYROXINE SODIUM 100 MCG VIAL IVPUSH SCH (10:49)
--- NOTE | 2019-08-30 11:43 | PN ---
Physical Exam: SUBJECTIVE: Patient seen and examined in the morning. No acute events overnight , and no events on telemetry. Patient is sedated and receiving HD at this time. OBJECTIVE: Vital Signs Period Temp Pulse Resp BP Sys/Amos Pulse Ox Last 24 Hr 97.9 F-98.8 F 54-72 16-24 124-193/69-94 96-98 GENERAL: The patient is intubated and sedated. HEAD: Atraumatic. EYES: PERRLA, exophthalmos improved. NECK: Trachea midline, full range of motion, supple. LUNGS:Ventilator sounds, clear. HEART: Regular rate and rhythm, S1, S2 without murmur, rub or gallop. ABDOMEN: Soft, nontender, nondistended, normoactive bowel sounds EXTREMITIES: 2+ pulses, warm, well-perfused, no edema. NEUROLOGICAL:Unable to assess. SKIN: Warm, dry, no erythema. Laboratory Results - last 24 hr 08/25/19 08/26/19 08/29/19 11:18 21:25 18:00 WBC RBC Hgb Hct MCV MCH MCHC RDW Plt Count MPV Absolute Neuts (auto) Neutrophils % Lymphocytes % Monocytes % Eosinophils % Basophils % Nucleated RBC % Sodium Potassium Chloride Carbon Dioxide Anion Gap BUN Creatinine Est GFR (CKD-EPI)AfAm Est GFR (CKD-EPI)NonAf POC Glucometer 154 Random Glucose Calcium Phosphorus Magnesium Total Bilirubin AST ALT Alkaline Phosphatase Total Protein Albumin c-ANCA <1:20 Proteinase 3 (PR3) <3.5 p-ANCA <1:20 Atypical p-ANCA <1:20 Myeloperoxidase Ab <9.0 HCV Quantitation Hcv not detected HCV RNA log copies/mL TNP Blood Type O POSITIVE Antibody Screen Negative Crossmatch See Detail 08/29/19 08/30/19 08/30/19 23:04 05:00 05:00 WBC 10.9 H RBC 2.81 L Hgb 8.3 L Hct 25.0 L MCV 89.0 MCH 29.7 MCHC 33.4 RDW 17.9 H Plt Count 270 MPV 8.8 Absolute Neuts (auto) 9.4 H Neutrophils % 85.6 H Lymphocytes % 12.6 Monocytes % 1.7 L Eosinophils % 0.0 Basophils % 0.1 D Nucleated RBC % 0 Sodium 137 Potassium 4.2 Chloride 102 Carbon Dioxide 26 Anion Gap 10 BUN 53.3 H Creatinine 5.5 H Est GFR (CKD-EPI)AfAm 9.55 Est GFR (CKD-EPI)NonAf 8.24 POC Glucometer 183 Random Glucose 190 H Calcium 7.1 L Phosphorus 6.4 H Magnesium 1.9 Total Bilirubin 0.4 AST 26 ALT 43 Alkaline Phosphatase 566 H Total Protein 5.7 L Albumin 2.0 L c-ANCA Proteinase 3 (PR3) p-ANCA Atypical p-ANCA Myeloperoxidase Ab HCV Quantitation HCV RNA log copies/mL Blood Type Antibody Screen Crossmatch 08/30/19 05:46 WBC RBC Hgb Hct MCV MCH MCHC RDW Plt Count MPV Absolute Neuts (auto) Neutrophils % Lymphocytes % Monocytes % Eosinophils % Basophils % Nucleated RBC % Sodium Potassium Chloride Carbon Dioxide Anion Gap BUN Creatinine Est GFR (CKD-EPI)AfAm Est GFR (CKD-EPI)NonAf POC Glucometer 182 Random Glucose Calcium Phosphorus Magnesium Total Bilirubin AST ALT Alkaline Phosphatase Total Protein Albumin c-ANCA Proteinase 3 (PR3) p-ANCA Atypical p-ANCA Myeloperoxidase Ab HCV Quantitation HCV RNA log copies/mL Blood Type Antibody Screen Crossmatch Active Medications Generic Name Dose Route Start Last Admin Trade Name Freq PRN Reason Stop Dose Admin Albuterol Sulfate 1 amp 08/25/19 14:57 Ventolin 0.083% Nebulizer Soln - NEB Q6H PRN SHORT OF BREATH/WHEEZING Albuterol/Ipratropium 1 amp 08/25/19 14:57 Duoneb - NEB Q4H PRN SHORTNESS OF BREATH Chlorhexidine Gluconate 1 applic 08/27/19 22:00 08/29/19 23:03 Hibiclens For Decolonization - TP 1 applic HS ZOE Administration Hydrocortisone Sodium Succinate 100 mg 08/29/19 23:00 08/30/19 10:49 Solu-Cortef - IVPUSH 100 mg Q12H ZOE Administration Famotidine/Sodium Chloride 20 mg in 50 mls @ 100 mls/hr 08/26/19 08:00 09:00 Pepcid 20 Mg Premixed Ivpb - IVPB 100 mls/hr DAILY@0800 ZOE Administration Propofol 1,000,000 mcg in 100 mls @ 34.7 mls/hr 08/25/19 18:45 08/29/19 23:06 Diprivan - IVPB 30 mcg/kg/min TITR ZOE 20.82 mls/hr Administration Protocol 50 MCG/KG/MIN Fentanyl 500 mcg/ Dextrose 100 mls @ 20 mls/hr 08/25/19 18:45 08/29/19 18:00 IVPB 50 mcg/hr TITR ZOE 10 mls/hr Administration 100 MCG/HR Piperacillin Sod/Tazobactam 50 mls @ 100 mls/hr 08/26/19 02:00 08/30/19 10:49 Sod 2.25 gm/ Dextrose IVPB 100 mls/hr Q8H-IV ZOE Administration Protocol Sodium Chloride 250 mls @ 3,000 mls/hr 08/29/19 16:10 Normal Saline - IV 08/30/19 16:10 PRN PRN Hypotension during Dialysis Insulin Aspart 1 vial 08/26/19 07:00 08/29/19 23:06 Novolog Vial Sliding Scale - SQ 2 units ACHS ZOE Administration Protocol Levothyroxine Sodium 100 mcg 08/26/19 10:00 08/30/19 10:49 Synthroid Injection - IVPUSH 100 mcg DAILY ZOE Administration Mupirocin 1 applic 08/27/19 10:00 08/30/19 10:49 Bactroban Ointment (For Decolonization) - NS 09/01/19 09:59 1 applic BID ZOE Administration ASSESSMENT/PLAN: 54 F with PMH of Thyroid cancer s/p thyroidectomy, IDDM, COPD, unspecified mental health disorders, anemia, HTN, HLD who presented with AMS likely due to myxedema coma. Patient presents with renal failure and combined metabolic and hypercapnic respiratory acidosis requiring NIPPV. Pulmonary -Patient is intubated. Ventilator on volume control. Cuff leak test showed air movement. -Chest x-ray. ET tube in place. Pleural effusions still present. -Echo shows pleural effusions present -Wean attempt. -Hx of COPD, will be getting Hyrdocortisone Sodium 100 mg IV Q8H -Duonebs Q4H PRN -Albuterol Nebulizer Q6H PRN Renal -BUN/Cr of -Nephrology consulted, appreciate recs. -Renal U/S negative -Tolerated HD today Endocrine -Myxedema coma (TSH 100, Free T4 0.24 on admission) -Hx of hypothyroidism s/p thyroidectomy -Hypothermic on presentation, afebrile now -Hx of IDDM -Hydrocortisone 100 mg Q8H IV for possible adrenal insufficiency -Sliding scale insulin -Endocrine consulted, appreciate recs -Levothyroxine 100 mcg IV Heme/Onc -H/H Stable ID -ID consulted, appreciate recs -Continuing empiric Zoysn Q8H -Blood culture no growth. -Urine culture shows staph epidermdis. Likely contaminant. -Sputum culture shows preliminary lactose fermenting gram negative bacilli. Neuro/Psych -Head CT showed mild ventriculomegaly -Constant monitoring -Utox showed MDMA+, false positive from psych medications. Cardiac -Echo shows small pericardial effusion (less than 1 cm) -EF of 65-70% -Pleural effusions present -Trop negative x3 -BP Stable F: No IV Fluids at the moment E: Monitor CMP N: NPO Dispo: Continue monitoring in ICU DVT: SCD Visit type - Emergency Visit Emergency Visit: Yes ED Registration Date: 08/25/19 Care time: The patient presented to the Emergency Department on the above date and was hospitalized for further evaluation of their emergent condition. - New Patient This patient is new to me today: No - Critical Care Critical Care patient: Yes Total Critical Care Time (in minutes): 45 Critical Care Statement: The care of this patient involved high complexity decision making to prevent further life threatening deterioration of the patient 's condition and/or to evaluate & treat vital organ system(s) failure or risk of failure. ATTENDING PHYSICIAN STATEMENT I saw and evaluated the patient. I reviewed the resident's note and discussed the case with the resident. I agree with the resident's findings and plan as documented. SUBJECTIVE: OBJECTIVE: ASSESSMENT AND PLAN:
[2019-08-30 13:05] LABS: BLOOD UREA NITROGEN 24.4 mg/dL (7-18); CREATININE 2.8 mg/dL (0.55-1.3)
--- NOTE | 2019-08-30 13:09 | PN ---
Progress Note, Physician History of Present Illness: continues to be intubated - Current Medication List Current Medications: Active Medications Albuterol Sulfate (Ventolin 0.083% Nebulizer Soln -) 1 amp NEB Q6H PRN PRN Reason: SHORT OF BREATH/WHEEZING Albuterol/Ipratropium (Duoneb -) 1 amp NEB Q4H PRN PRN Reason: SHORTNESS OF BREATH Chlorhexidine Gluconate (Hibiclens For Decolonization -) 1 applic TP HS [facility] Last Admin: 08/29/19 23:03 Dose: 1 applic Hydrocortisone Sodium Succinate (Solu-Cortef -) 100 mg IVPUSH Q12H [facility] Last Admin: 08/30/19 10:49 Dose: 100 mg Famotidine/Sodium Chloride (Pepcid 20 Mg Premixed Ivpb -) 20 mg in 50 mls @ 100 mls/hr IVPB DAILY@0800 [facility] Last Admin: 08/30/19 09:00 Dose: 100 mls/hr Propofol (Diprivan -) 1,000,000 mcg in 100 mls @ 34.7 mls/hr IVPB TITR [facility]; Protocol Last Admin: 08/29/19 23:06 Dose: 30 mcg/kg/min, 20.82 mls/hr Fentanyl 500 mcg/ Dextrose 100 mls @ 20 mls/hr IVPB TITR [facility] Last Admin: 08/29/19 18:00 Dose: 50 mcg/hr, 10 mls/hr Sodium Chloride (Normal Saline -) 250 mls @ 3,000 mls/hr IV PRN PRN PRN Reason: Hypotension during Dialysis Stop: 08/30/19 16:10 Insulin Aspart (Novolog Vial Sliding Scale -) 1 vial SQ ACHS [facility]; Protocol Last Admin: 08/30/19 12:04 Dose: 2 units Levothyroxine Sodium (Synthroid Injection -) 100 mcg IVPUSH DAILY [facility] Last Admin: 08/30/19 10:49 Dose: 100 mcg Mupirocin (Bactroban Ointment (For Decolonization) -) 1 applic NS BID [facility] Stop: 09/01/19 09:59 Last Admin: 08/30/19 10:49 Dose: 1 applic - Objective Vital Signs: Vital Signs Temperature 98.4 F 08/30/19 10:00 Pulse Rate 60 08/30/19 12:00 Respiratory Rate 24 H 08/30/19 12:00 Blood Pressure 179/83 H 08/30/19 12:00 O2 Sat by Pulse Oximetry (%) 98 08/30/19 10:00 Constitutional: Yes: No Distress, Calm, Obese Cardiovascular: Yes: S1, S2 Respiratory: Yes: Intubated, Mechanically Ventilated Gastrointestinal: Yes: Normal Bowel Sounds, Soft Musculoskeletal: Yes: WNL Extremities: Yes: WNL Neurological: Yes: Other Psychiatric: Yes: Other Labs: CBC, BMP 08/30/19 05:00 08/30/19 10:05 INR, PTT INR 0.89 (0.83-1.09) 08/25/19 11:00 Assessment/Plan Problem List - Problems (1) LUCY (acute kidney injury) Code(s): N17.9 - ACUTE KIDNEY FAILURE, UNSPECIFIED (2) AMS (altered mental status) Code(s): R41.82 - ALTERED MENTAL STATUS, UNSPECIFIED (3) Acute metabolic encephalopathy Code(s): G93.41 - METABOLIC ENCEPHALOPATHY (4) Acute respiratory failure Code(s): J96.00 - ACUTE RESPIRATORY FAILURE, UNSP W HYPOXIA OR HYPERCAPNIA (5) Anemia Code(s): D64.9 - ANEMIA, UNSPECIFIED (6) COPD (chronic obstructive pulmonary disease) Code(s): J44.9 - CHRONIC OBSTRUCTIVE PULMONARY DISEASE, UNSPECIFIED (7) Diabetes Code(s): E11.9 - TYPE 2 DIABETES MELLITUS WITHOUT COMPLICATIONS (8) HTN (hypertension) Code(s): I10 - ESSENTIAL (PRIMARY) HYPERTENSION (9) Hypercapnic respiratory failure Code(s): J96.92 - RESPIRATORY FAILURE, UNSPECIFIED WITH HYPERCAPNIA (10) Hypothermia Code(s): T68.XXXA - HYPOTHERMIA, INITIAL ENCOUNTER (11) Morbid obesity Code(s): E66.01 - MORBID (SEVERE) OBESITY DUE TO EXCESS CALORIES (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 - MYXEDEMA COMA (13) Thyroid cancer Code(s): C73 - MALIGNANT NEOPLASM OF THYROID GLAND Assessment/Plan Acute respiratory failure on MV/sedation Acute metabolic encephalopathy AMS Myxedema coma DM LUCY on CKD Obesity Hx of thyroid CA s/p thyroidectomy HTN HLD COPD Anemia --pt remains intubated/sedated will hold off on abx for now if wbc starts increasing might have to restart it --monitor wbc trend, --on HD rest of care per ICU cc: 40 min
[2019-08-30] MEDS ORDERED: SODIUM CHLORIDE 250 ML IV PRN (16:20)
--- NOTE | 2019-08-30 16:20 | PN ---
Progress Note, Physician History of Present Illness: Pt seen and examined at bedside. She remains in the ICU. She remains intubated. - Current Medication List Current Medications: Active Medications Chlorhexidine Gluconate (Hibiclens For Decolonization -) 1 applic TP HS [facility] Last Admin: 08/29/19 23:03 Dose: 1 applic Hydrocortisone Sodium Succinate (Solu-Cortef -) 100 mg IVPUSH Q12H [facility] Last Admin: 08/30/19 10:49 Dose: 100 mg Famotidine/Sodium Chloride (Pepcid 20 Mg Premixed Ivpb -) 20 mg in 50 mls @ 100 mls/hr IVPB DAILY@0800 [facility] Last Admin: 08/30/19 09:00 Dose: 100 mls/hr Propofol (Diprivan -) 1,000,000 mcg in 100 mls @ 34.7 mls/hr IVPB TITR [facility]; Protocol Last Admin: 08/29/19 23:06 Dose: 30 mcg/kg/min, 20.82 mls/hr Fentanyl 500 mcg/ Dextrose 100 mls @ 20 mls/hr IVPB TITR [facility] Last Admin: 08/29/19 18:00 Dose: 50 mcg/hr, 10 mls/hr Sodium Chloride (Normal Saline -) 250 mls @ 3,000 mls/hr IV PRN PRN PRN Reason: Hypotension during Dialysis Stop: 08/30/19 16:10 Insulin Aspart (Novolog Vial Sliding Scale -) 1 vial SQ ACHS [facility]; Protocol Last Admin: 08/30/19 12:04 Dose: 2 units Levothyroxine Sodium (Synthroid Injection -) 100 mcg IVPUSH DAILY [facility] Last Admin: 08/30/19 10:49 Dose: 100 mcg Mupirocin (Bactroban Ointment (For Decolonization) -) 1 applic NS BID [facility] Stop: 09/01/19 09:59 Last Admin: 08/30/19 10:49 Dose: 1 applic - Objective Vital Signs: Vital Signs Temperature 98.7 F 08/30/19 14:00 Pulse Rate 64 08/30/19 14:00 Respiratory Rate 24 H 08/30/19 14:00 Blood Pressure 172/82 H 08/30/19 14:00 O2 Sat by Pulse Oximetry (%) 98 08/30/19 10:00 Constitutional: Yes: Calm Eyes: Yes: Conjunctiva Clear HENT: Yes: Atraumatic Neck: Yes: Supple Cardiovascular: Yes: S1, S2 Respiratory: Yes: CTA Bilaterally Gastrointestinal: Yes: Soft Genitourinary: Yes: WNL Musculoskeletal: Yes: Muscle Weakness Edema: Yes Integumentary: Yes: Tattoos Neurological: Yes: Lethargy Labs: CBC, BMP 08/30/19 05:00 08/30/19 10:05 INR, PTT INR 0.89 (0.83-1.09) 08/25/19 11:00 - ....Imaging Chest X-ray: Report Reviewed Problem List - Problems (1) AMS (altered mental status) Code(s): R41.82 - ALTERED MENTAL STATUS, UNSPECIFIED (2) Acute metabolic encephalopathy Code(s): G93.41 - METABOLIC ENCEPHALOPATHY (3) Acute renal failure Code(s): N17.9 - ACUTE KIDNEY FAILURE, UNSPECIFIED (4) Diabetes Code(s): E11.9 - TYPE 2 DIABETES MELLITUS WITHOUT COMPLICATIONS (5) Hypercapnic respiratory failure Code(s): J96.92 - RESPIRATORY FAILURE, UNSPECIFIED WITH HYPERCAPNIA (6) Hypothermia Code(s): T68.XXXA - HYPOTHERMIA, INITIAL ENCOUNTER (7) Morbid obesity Code(s): E66.01 - MORBID (SEVERE) OBESITY DUE TO EXCESS CALORIES Assessment/Plan Current Medications Generic Name Dose Route Start Last Admin Trade Name Juan Daniel PRN Reason Stop Dose Admin Chlorhexidine Gluconate 1 applic 08/27/19 22:00 08/29/19 23:03 Hibiclens For Decolonization - TP 1 applic HS ZOE Administration Hydrocortisone Sodium Succinate 100 mg 08/29/19 23:00 08/30/19 10:49 Solu-Cortef - IVPUSH 100 mg Q12H ZOE Administration Famotidine/Sodium Chloride 20 mg in 50 mls @ 100 mls/hr 08/26/19 08:00 09:00 Pepcid 20 Mg Premixed Ivpb - IVPB 100 mls/hr DAILY@0800 ZOE Administration Propofol 1,000,000 mcg in 100 mls @ 34.7 mls/hr 08/25/19 18:45 08/29/19 23:06 Diprivan - IVPB 30 mcg/kg/min TITR [facility]OE 20.82 mls/hr Administration Protocol 50 MCG/KG/MIN Fentanyl 500 mcg/ Dextrose 100 mls @ 20 mls/hr 08/25/19 18:45 08/29/19 18:00 IVPB 50 mcg/hr TITR ZOE 10 mls/hr Administration 100 MCG/HR Sodium Chloride 250 mls @ 3,000 mls/hr 08/29/19 16:10 Normal Saline - IV 08/30/19 16:10 PRN PRN Hypotension during Dialysis Insulin Aspart 1 vial 08/26/19 07:00 08/30/19 12:04 Novolog Vial Sliding Scale - SQ 2 units ACHS ZOE Administration Protocol Levothyroxine Sodium 100 mcg 08/26/19 10:00 08/30/19 10:49 Synthroid Injection - IVPUSH 100 mcg DAILY ZOE Administration Mupirocin 1 applic 08/27/19 10:00 08/30/19 10:49 Bactroban Ointment (For Decolonization) - NS 09/01/19 09:59 1 applic BID ZOE Administration Laboratory Tests 08/26/19 21:25 Screen Negative c-ANCA <1:20 Proteinase 3 (PR3) <3.5 p-ANCA <1:20 Atypical p-ANCA <1:20 Myeloperoxidase Ab <9.0 Double Strand DNA Ab 7 Glomerular Base Memb Ab 5 Impression 1. LUCY 2. fluid overload 3. acute respiratory failure 4. hypothyroidism with tsh of 100 5. 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 urine tox pos for mdma 7. mild rhabdo 8. hx of hepatitis, family does not know if b or c, hep b is positive here Plan - hd again tomorrow for volume - daily cxr - vent support - GI eval for hep b - discussed with ICU team - HD today
[2019-08-30] MEDS: FENTANYL INJECTION 500 MCG in DEXTROSE 5%-WATER - 90 ML IVPB SCH (19:10)
[2019-08-30] MEDS: PROPOFOL 1,000,000 MCG/100 ML VIAL IVPB SCH (22:27)
[2019-08-30] MEDS: CHLORHEXIDINE GLUCONATE 4% CLEANSER FOR DECOLONIZATION TP SCH (22:27)
[2019-08-31] MEDS: INSULIN SLIDING SCALE (NOVOLOG) 1 VIAL SQ SCH ×4 (06:47→21:20)
[2019-08-31 06:55] LABS: HEMATOCRIT 26.3 % (32.4-45.2); HEMOGLOBIN 8.9 GM/dL (10.7-15.3); LYMPH % 19.1 % (8-40); MCH 29.8 pg (25.7-33.7); MCHC 33.7 g/dl (32.0-36.0); MEAN CELL VOLUME 88.4 fl (80-96); MEAN PLT VOLUME 8.8 fl (7.5-11.1); MONO % 2.4 % (3.8-10.2); NEUT % 78.5 % (42.8-82.8); PLATELET COUNT 282 K/MM3 (134-434); RBC 2.97 M/mm3 (3.60-5.2); RDW 17.1 % (11.6-15.6); WHITE BLOOD COUNT 10.3 K/mm3 (4.0-10.0)
[2019-08-31 07:12] LABS: ALBUMIN 2.1 g/dl (3.4-5.0); BILIRUBIN,TOTAL 0.4 mg/dL (0.2-1); BLOOD UREA NITROGEN 48.4 mg/dL (7-18); CALCIUM 7.8 mg/dL (8.5-10.1); CREATININE 4.7 mg/dL (0.55-1.3); MAGNESIUM 1.9 mg/dL (1.8-2.4); PHOSPHOROUS 5.6 mg/dL (2.5-4.9); POTASSIUM 4.1 mmol/L (3.5-5.1); TOT PROT 6.2 g/dl (6.4-8.2)
[2019-08-31] MEDS: PROPOFOL 1,000,000 MCG/100 ML VIAL IVPB SCH ×5 (07:30→21:10)
[2019-08-31] MEDS ORDERED: fentaNYL CITRATE 250 MCG/5 ML VIAL ONE ×2 (08:08→23:43)
[2019-08-31] MEDS: FAMOTIDINE 20 MG/50 ML IVPB 20 MG/50 ML MG IVPB SCH (08:22)
--- NOTE | 2019-08-31 09:07 | PN ---
Progress Note, Physician Chief Complaint: orally intubated and sedated. Responds to tactile stimuli. Remains on propofol and fentanyl History of Present Illness: Patient is a 54 year old morbid obese female with a significant PMD Htn, HLD, DM , COPD, anemia, thyroid cancer 6 years ago. Patient brought into the ED for altered mental status and acute shortness of breath. She was found to have an elevated TSH, low t4 and hypothermic (96f-97-on mariana hugger). Urine is + for ecstasy. She also has renal failure with a creat of 7.7, bun of 65,mag 1.6, elevated ast/alt. In the ED she was placed on bipap & admitted for myxedema coma, acute renal failure, acute metabolic encephalopathy, metabolic acidosis, hypercapneic respiratory failure. Repeat abg without improvement of acidosis, and elevated co2. patient intubated to protect airway. - Current Medication List Current Medications: Active Medications Chlorhexidine Gluconate (Hibiclens For Decolonization -) 1 applic TP HS [facility] Last Admin: 08/30/19 22:27 Dose: 1 applic Hydrocortisone Sodium Succinate (Solu-Cortef -) 100 mg IVPUSH Q12H [facility] Last Admin: 08/30/19 22:35 Dose: 100 mg Famotidine/Sodium Chloride (Pepcid 20 Mg Premixed Ivpb -) 20 mg in 50 mls @ 100 mls/hr IVPB DAILY@0800 [facility] Last Admin: 08/31/19 08:22 Dose: 100 mls/hr Propofol (Diprivan -) 1,000,000 mcg in 100 mls @ 34.7 mls/hr IVPB TITR [facility]; Protocol Last Titration: 08/31/19 08:30 Dose: 35 mcg/kg/min, 24.29 mls/hr Fentanyl 500 mcg/ Dextrose 100 mls @ 20 mls/hr IVPB TITR [facility] Last Titration: 08/31/19 08:00 Dose: 50 mcg/hr, 10 mls/hr Sodium Chloride (Normal Saline -) 250 mls @ 3,000 mls/hr IV PRN PRN PRN Reason: Hypotension during Dialysis Stop: 08/31/19 16:20 Insulin Aspart (Novolog Vial Sliding Scale -) 1 vial SQ ACHS [facility]; Protocol Last Admin: 08/31/19 06:47 Dose: Not Given Levothyroxine Sodium (Synthroid Injection -) 100 mcg IVPUSH DAILY [facility] Last Admin: 08/30/19 10:49 Dose: 100 mcg Mupirocin (Bactroban Ointment (For Decolonization) -) 1 applic NS BID [facility] Stop: 09/01/19 09:59 Last Admin: 08/30/19 22:28 Dose: 1 applic - Objective Vital Signs: Vital Signs Temperature 98.9 F 08/31/19 08:00 Pulse Rate 69 08/31/19 08:00 Respiratory Rate 26 H 08/31/19 09:00 Blood Pressure 194/93 H 08/31/19 08:00 O2 Sat by Pulse Oximetry (%) 97 08/31/19 00:54 Additional Findings/Remarks: Constitutional: Yes: Other (Intubated and sedated) Eyes: Yes: Other (scleral edema) HENT: Yes: WNL, Atraumatic, Normocephalic Neck: Yes: WNL, Supple, Trachea Midline. RIJ dialysis cath noted (tip @ SVC) Cardiovascular: Yes: Bradycardia (HR 50s) Respiratory: Yes: Mechanically Ventilated (orally intubated on AC, FIO2 40) Gastrointestinal: Yes: Soft, Abdomen, Obese ...Rectal Exam: Yes: Deferred Genitourinary: Yes: Mahoney Present Breast(s): Yes: WNL Extremities: Yes: Delayed Capillary Refill Edema: Yes Edema: LUE: 2+, RUE: 2+, LLE: 3+, RLE: 3+ Peripheral Pulses WNL: No Peripheral Pulses: Left Radial: 1+, Right Radial: 1+, Left Doralis Pedis: 1+, Right Dorsalis Pedis: 1+, Left Femoral: 1+, Right Femoral: 1+ Integumentary: Yes: WNL Neurological: Yes: Other (Intubated and sedated) Psychiatric: Yes: Other (Intubated and sedated) Labs: CBC, BMP 08/31/19 05:45 08/31/19 05:45 INR, PTT INR 0.89 (0.83-1.09) 08/25/19 11:00 Problem List - Problems (1) HTN (hypertension) Assessment/Plan: on lisinipril/ nifedipine at home being held will restart when extubated if needed Code(s): I10 - ESSENTIAL (PRIMARY) HYPERTENSION (2) HLD (hyperlipidemia) Assessment/Plan: c/w atorvastatin when extubated Code(s): E78.5 - HYPERLIPIDEMIA, UNSPECIFIED (3) COPD (chronic obstructive pulmonary disease) Assessment/Plan: duo nebs q4h mechanically ventilated on AC Code(s): J44.9 - CHRONIC OBSTRUCTIVE PULMONARY DISEASE, UNSPECIFIED (4) Anemia Assessment/Plan: recieved 1 u PRBC since admission Hgb 8.8 continue to monitor Code(s): D64.9 - ANEMIA, UNSPECIFIED (5) Thyroid cancer Code(s): C73 - MALIGNANT NEOPLASM OF THYROID GLAND (6) Acute respiratory failure Assessment/Plan: remains orally intuabted no weaning attempts oral care as per nursing turn and reposition appreciate ICU level of care Code(s): J96.00 - ACUTE RESPIRATORY FAILURE, UNSP W HYPOXIA OR HYPERCAPNIA (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 Code(s): F16.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 ABUSE, UNCOMPLICATED (8) LUCY (acute kidney injury) Assessment/Plan: Cr 2.8 HD as per renal avoid nephrotoxic agents Code(s): N17.9 - ACUTE KIDNEY FAILURE, UNSPECIFIED (9) Acute metabolic encephalopathy Assessment/Plan: sedated on propofol amd fentanyl following simple commands during sedation interruption Code(s): G93.41 - METABOLIC ENCEPHALOPATHY (10) Morbid obesity Code(s): E66.01 - MORBID (SEVERE) OBESITY DUE TO EXCESS CALORIES (11) Prophylactic measure Assessment/Plan: FEN no additional IVF TF with nepro vis OGT-tolerating well monitor electrolytes DVT SCDs Dispo requiring ICU care full code discharge planning Code(s): Z29.9 - ENCOUNTER FOR PROPHYLACTIC MEASURES, UNSPECIFIED (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 Assessment/Plan: TSH 98.9 being followed by endo -wouldn't expect TSH to change much the first week treatment with LT4 TFT tomorrow Continue IV LT4 100mcg QD and IV hydrocortiosne Taper Hydrocortisone Code(s): E03.5 - MYXEDEMA COMA Visit type - Emergency Visit Emergency Visit: Yes ED Registration Date: 08/25/19 Care time: The patient presented to the Emergency Department on the above date and was hospitalized for further evaluation of their emergent condition. - New Patient This patient is new to me today: No - Critical Care Critical Care patient: Yes Total Critical Care Time (in minutes): 35 Critical Care Statement: The care of this patient involved high complexity decision making to prevent further life threatening deterioration of the patient 's condition and/or to evaluate & treat vital organ system(s) failure or risk of failure. - Discharge Referral Referred to [facility] Med P.C.: No
[2019-08-31] MEDS: MUPIROCIN 2% TOPICAL OINTMENT FOR DECOLONIZATION NS SCH ×2 (09:36→21:14)
--- NOTE | 2019-08-31 11:14 | PN ---
Progress Note (short form) - Note Progress Note: 54 year old female history of HTN, HLD, DM COPD, Anemia thyroid cancer. Patient came with ams and had CHF, renal failure , anemia . James was intubated, she was hypothermic. She is on sedation . Ganesh has ct head and there is mild dilation of ventricles. There is no evidence of seizure like activity , no high grade fever or neck stiffness. Patient has no head trauma Patient was awake on reduced sedation earlier this morning. There is no seizure. ganesh is getting dialysis and spoke to nurse at bedside. NEUROLOGICAL EXAMINATION sedated and intubated , neck is supple reponds to painful stimuli and opens eye to verbal command pupils reactive no face asymmetry rest of neuro exam is not possible ct head reviewed and mild ventricular dilatation and this could be due to intercurrent illness Assessment/Plan4 year old female history of HTN, HLD, DM COPD, Anemia thyroid cancer. Patient came with ams and had CHF, renal failure , anemia . Patient has Metabolic encephalopathy, there is no evidence of status epilepticus, meningitis or stroke Plan: will review mental status once she is off sedaiton. contiue current level of care Thanking you so much Hill Hayden MD
[2019-08-31] MEDS ORDERED: PT OWN MED DRAWER 7, Y5N ONE (11:26)
[2019-08-31] MEDS: LEVOTHYROXINE SODIUM 100 MCG VIAL IVPUSH SCH (11:29)
[2019-08-31] MEDS: HYDROCORTISONE SOD SUCCINATE 100 MG/2 ML VIAL IVPUSH SCH (11:29)
--- NOTE | 2019-08-31 11:52 | PN ---
Progress Note, Physician History of Present Illness: continues to be intubated sedated - Current Medication List Current Medications: Active Medications Chlorhexidine Gluconate (Hibiclens For Decolonization -) 1 applic TP HS [facility] Last Admin: 08/30/19 22:27 Dose: 1 applic Heparin Sodium (Porcine) (Heparin -) 5,000 unit SQ TID [facility] Hydrocortisone Sodium Succinate (Solu-Cortef -) 100 mg IVPUSH Q12H [facility] Last Admin: 08/31/19 11:29 Dose: 100 mg Famotidine/Sodium Chloride (Pepcid 20 Mg Premixed Ivpb -) 20 mg in 50 mls @ 100 mls/hr IVPB DAILY@0800 [facility] Last Admin: 08/31/19 08:22 Dose: 100 mls/hr Propofol (Diprivan -) 1,000,000 mcg in 100 mls @ 34.7 mls/hr IVPB TITR [facility]; Protocol Last Admin: 08/31/19 11:20 Dose: 50 mcg/kg/min, 34.7 mls/hr Fentanyl 500 mcg/ Dextrose 100 mls @ 20 mls/hr IVPB TITR [facility] Last Titration: 08/31/19 08:00 Dose: 50 mcg/hr, 10 mls/hr Sodium Chloride (Normal Saline -) 250 mls @ 3,000 mls/hr IV PRN PRN PRN Reason: Hypotension during Dialysis Stop: 08/31/19 16:20 Insulin Aspart (Novolog Vial Sliding Scale -) 1 vial SQ ACHS [facility]; Protocol Last Admin: 08/31/19 11:24 Dose: Not Given Levothyroxine Sodium (Synthroid Injection -) 100 mcg IVPUSH DAILY [facility] Last Admin: 08/31/19 11:29 Dose: 100 mcg Mupirocin (Bactroban Ointment (For Decolonization) -) 1 applic NS BID [facility] Stop: 09/01/19 09:59 Last Admin: 08/31/19 09:36 Dose: 1 applic Nifedipine (Procardia Xl -) 60 mg PO DAILY [facility] Paroxetine HCl (Paxil -) 40 mg PO DAILY [facility] - Objective Vital Signs: Vital Signs Temperature 99.0 F 08/31/19 10:00 Pulse Rate 63 08/31/19 10:21 Respiratory Rate 14 08/31/19 10:21 Blood Pressure 130/71 08/31/19 10:21 O2 Sat by Pulse Oximetry (%) 99 08/31/19 08:00 Constitutional: Yes: Obese, Other Cardiovascular: Yes: Regular Rate and Rhythm Respiratory: Yes: Intubated, Mechanically Ventilated, Other Gastrointestinal: Yes: Normal Bowel Sounds, Soft, Other (og in place) Musculoskeletal: Yes: WNL Extremities: Yes: WNL Neurological: Yes: Other Psychiatric: Yes: Other Labs: CBC, BMP 08/31/19 05:45 08/31/19 05:45 INR, PTT INR 0.89 (0.83-1.09) 08/25/19 11:00 Assessment/Plan Problem List - Problems (1) LUCY (acute kidney injury) Code(s): N17.9 - ACUTE KIDNEY FAILURE, UNSPECIFIED (2) AMS (altered mental status) Code(s): R41.82 - ALTERED MENTAL STATUS, UNSPECIFIED (3) Acute metabolic encephalopathy Code(s): G93.41 - METABOLIC ENCEPHALOPATHY (4) Acute respiratory failure Code(s): J96.00 - ACUTE RESPIRATORY FAILURE, UNSP W HYPOXIA OR HYPERCAPNIA (5) Anemia Code(s): D64.9 - ANEMIA, UNSPECIFIED (6) COPD (chronic obstructive pulmonary disease) Code(s): J44.9 - CHRONIC OBSTRUCTIVE PULMONARY DISEASE, UNSPECIFIED (7) Diabetes Code(s): E11.9 - TYPE 2 DIABETES MELLITUS WITHOUT COMPLICATIONS (8) HTN (hypertension) Code(s): I10 - ESSENTIAL (PRIMARY) HYPERTENSION (9) Hypercapnic respiratory failure Code(s): J96.92 - RESPIRATORY FAILURE, UNSPECIFIED WITH HYPERCAPNIA (10) Hypothermia Code(s): T68.XXXA - HYPOTHERMIA, INITIAL ENCOUNTER (11) Morbid obesity Code(s): E66.01 - MORBID (SEVERE) OBESITY DUE TO EXCESS CALORIES (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 - MYXEDEMA COMA (13) Thyroid cancer Code(s): C73 - MALIGNANT NEOPLASM OF THYROID GLAND Assessment/Plan Acute respiratory failure on MV/sedation Acute metabolic encephalopathy AMS Myxedema coma DM LUCY on CKD Obesity Hx of thyroid CA s/p thyroidectomy HTN HLD COPD Anemia --pt remains intubated/sedated will hold off on abx for now if patient starts spiking fever will restart abx if wbc starts increasing might have to restart it --monitor wbc trend, --on HD rest of care per ICU cc: 40 min
--- NOTE | 2019-08-31 11:53 | PN ---
Teaching Attending Note Name of Resident: Lashae Duffy ATTENDING PHYSICIAN STATEMENT I saw and evaluated the patient. I reviewed the resident's note and discussed the case with the resident. I agree with the resident's findings and plan as documented. SUBJECTIVE: Pt seen and examined in the ICU. Remains intubated, sedated. Currently on HD. OBJECTIVE: Vital Signs Period Temp Pulse Resp BP Sys/Amos Pulse Ox Last 24 Hr 98.3 F-99.0 F 53-102 13-29 111-194/52-93 94-99 Intake & Output 08/28/19 08/29/19 08/30/19 08/31/19 23:59 23:59 23:59 23:59 Intake Total 2556.6 1386.9 864 1501 Output Total 4100 350 4550 3850 Balance -1543.4 1036.9 -3686 -2349 Weight 123.4 kg 121.9 kg 121.9 kg 119.4 kg Gen: intubated, sedated Heart: RRR Lung: decreased breath sounds at the bases Abd: soft, nontender Ext: + edema CBC, BMP 08/31/19 05:45 08/31/19 05:45 Active Medications Chlorhexidine Gluconate (Hibiclens For Decolonization -) 1 applic TP HS [facility] Last Admin: 08/30/19 22:27 Dose: 1 applic Heparin Sodium (Porcine) (Heparin -) 5,000 unit SQ TID [facility] Hydrocortisone Sodium Succinate (Solu-Cortef -) 100 mg IVPUSH Q12H [facility] Last Admin: 08/31/19 11:29 Dose: 100 mg Famotidine/Sodium Chloride (Pepcid 20 Mg Premixed Ivpb -) 20 mg in 50 mls @ 100 mls/hr IVPB DAILY@0800 [facility] Last Admin: 08/31/19 08:22 Dose: 100 mls/hr Propofol (Diprivan -) 1,000,000 mcg in 100 mls @ 34.7 mls/hr IVPB TITR [facility]; Protocol Last Admin: 08/31/19 11:20 Dose: 50 mcg/kg/min, 34.7 mls/hr Fentanyl 500 mcg/ Dextrose 100 mls @ 20 mls/hr IVPB TITR [facility] Last Titration: 08/31/19 08:00 Dose: 50 mcg/hr, 10 mls/hr Sodium Chloride (Normal Saline -) 250 mls @ 3,000 mls/hr IV PRN PRN PRN Reason: Hypotension during Dialysis Stop: 08/31/19 16:20 Insulin Aspart (Novolog Vial Sliding Scale -) 1 vial SQ ACHS [facility]; Protocol Last Admin: 08/31/19 11:24 Dose: Not Given Levothyroxine Sodium (Synthroid Injection -) 100 mcg IVPUSH DAILY [facility] Last Admin: 08/31/19 11:29 Dose: 100 mcg Mupirocin (Bactroban Ointment (For Decolonization) -) 1 applic NS BID [facility] Stop: 09/01/19 09:59 Last Admin: 08/31/19 09:36 Dose: 1 applic Nifedipine (Procardia Xl -) 60 mg PO DAILY [facility] Paroxetine HCl (Paxil -) 40 mg PO DAILY [facility] ASSESSMENT AND PLAN: Acute Hypercapneic Respiratory Failure Myxedema Coma UTI Acute Kidney Injury requiring HD COPD DM Anemia - HD per renal with ultrafiltration - monitor urine output, creatinine - completed antibiotics - continue hydrocortisone, synthroid - check TSH in AM - inhaled bronchodilators - O2 to keep SpO2 >90% - daily sedation vacations to assess mental status - spontaneous breathing trials as tolerated - enteral feeds - DVT/GI prophylaxis - continue ICU monitoring critical care time spent in reviewing chart, evaluating patient and formulating plan 35 min
[2019-08-31] MEDS: HEPARIN NA (PORCINE) 5,000 UNITS/ML 1ML VIAL SQ SCH ×2 (13:44→21:14)
--- NOTE | 2019-08-31 14:58 | PN ---
Progress Note (short form) - Note Progress Note: Intubated, sedated Propofol increased as pt was biting on the tube Vital Signs Period Temp Pulse Resp BP Sys/Amos Pulse Ox Last 24 Hr 98.3 F-100.0 F 53-102 13-29 111-194/52-93 97-99 PE: Intubated, sedated Neck: Supple LUngs: CTA CVs: S1S2 Abd: Benign CMP Sodium 137 mmol/L (136-145) 08/31/19 05:45 Potassium 4.1 mmol/L (3.5-5.1) 08/31/19 05:45 Chloride 98 mmol/L (98-107) 08/31/19 05:45 Carbon Dioxide 27 mmol/L (21-32) 08/31/19 05:45 Anion Gap 12 MMOL/L (8-16) 08/31/19 05:45 BUN 48.4 mg/dL (7-18) H 08/31/19 05:45 Creatinine 4.7 mg/dL (0.55-1.3) H 08/31/19 05:45 Est GFR (CKD-EPI)AfAm 11.55 08/31/19 05:45 Est GFR (CKD-EPI)NonAf 9.97 08/31/19 05:45 POC Glucometer 130 UNITS (80-120) 08/31/19 11:23 Random Glucose 151 mg/dL (74-106) H 08/31/19 05:45 Lactic Acid 0.7 mmol/L (0.4-2.0) 08/25/19 11:00 Calcium 7.8 mg/dL (8.5-10.1) L 08/31/19 05:45 Phosphorus 5.6 mg/dL (2.5-4.9) H 08/31/19 05:45 Magnesium 1.9 mg/dL (1.8-2.4) 08/31/19 05:45 Total Bilirubin 0.4 mg/dL (0.2-1) 08/31/19 05:45 Direct Bilirubin 0.2 mg/dL (0.0-0.2) 08/26/19 05:54 AST 33 U/L (15-37) 08/31/19 05:45 ALT 44 U/L (13-61) 08/31/19 05:45 Alkaline Phosphatase 611 U/L (45-117) H 08/31/19 05:45 Ammonia 24.90 umol/L (11-32) 08/25/19 11:00 Creatine Kinase 1133 U/L (26-192) H 08/26/19 05:54 Creatine Kinase Index 0.8 % (0.0-5.0) 08/26/19 05:54 CK-MB (CK-2) 9.5 ng/mL (0.5-3.6) H 08/26/19 05:54 Troponin I < 0.02 ng/ml (0.00-0.05) 08/26/19 05:54 B-Natriuretic Peptide 3649.4 pg/ml (5-125) H 08/25/19 11:00 Total Protein 6.2 g/dl (6.4-8.2) L 08/31/19 05:45 Total Protein (PEP) 5.6 g/dL (6.0-8.5) L 08/26/19 21:25 Albumin 2.1 g/dl (3.4-5.0) L 08/31/19 05:45 Albumin (PEP) 2.4 gm/dl (2.9-4.4) L 08/26/19 21:25 Globulin 3.2 g/dL (2.2-3.9) 08/26/19 21:25 Albumin/Globulin Ratio 0.8 (0.7-1.7) 08/26/19 21:25 Beta Globulins 0.9 gm/dL (0.7-1.3) 08/26/19 21:25 Beta-Hydroxybutyrate 1.1 mg/dL (0.2-2.8) 08/25/19 11:00 Procalcitonin 1.29 ng/mL (0.00-0.08) H 08/25/19 13:41 TSH 98.90 uIU/ml (0.358-3.74) H 08/26/19 05:54 Free T4 0.24 ng/dl (0.76-1.46) L 08/25/19 11:00 Thyroxine (T4) 3.2 ug/dl (4.5-13.9) L 08/25/19 11:00 Free T3 0.5 pg/ml (2.0-4.4) L 08/25/19 13:24 Resin T3 Uptake 30.3 % (30-39) 08/26/19 05:54 Serum , Qual Negative 08/30/19 15:40 Cortisol Pre Dose Time 40.10 mcg/dL (.) 08/25/19 12:46 Current Medications Generic Name Dose Route Start Last Admin Trade Name Freq PRN Reason Stop Dose Admin Chlorhexidine Gluconate 1 applic 08/27/19 22:00 08/30/19 22:27 Hibiclens For Decolonization - TP 1 applic HS [facility] Administration Heparin Sodium (Porcine) 5,000 unit 08/31/19 14:00 08/31/19 13:44 Heparin - SQ 5,000 unit TID [facility] Administration Hydrocortisone Sodium Succinate 100 mg 08/29/19 23:00 08/31/19 11:29 Solu-Cortef - IVPUSH 100 mg Q12H [facility] Administration Famotidine/Sodium Chloride 20 mg in 50 mls @ 100 mls/hr 08/26/19 08:00 08:22 Pepcid 20 Mg Premixed Ivpb - IVPB 100 mls/hr DAILY@0800 [facility] Administration Propofol 1,000,000 mcg in 100 mls @ 34.7 mls/hr 08/25/19 18:45 08/31/19 13:52 Diprivan - IVPB 50 mcg/kg/min TITR [facility] 34.7 mls/hr Administration Protocol 50 MCG/KG/MIN Fentanyl 500 mcg/ Dextrose 100 mls @ 20 mls/hr 08/25/19 18:45 08/31/19 14:42 IVPB 25 mcg/hr TITR [facility] 5 mls/hr Titration 100 MCG/HR Sodium Chloride 250 mls @ 3,000 mls/hr 08/30/19 16:20 Normal Saline - IV 08/31/19 16:20 PRN PRN Hypotension during Dialysis Insulin Aspart 1 vial 08/26/19 07:00 08/31/19 11:24 Novolog Vial Sliding Scale - SQ Not Given ACHS [facility] Protocol Levothyroxine Sodium 100 mcg 08/26/19 10:00 08/31/19 11:29 Synthroid Injection - IVPUSH 100 mcg DAILY [facility] Administration Mupirocin 1 applic 08/27/19 10:00 08/31/19 09:36 Bactroban Ointment (For Decolonization) - NS 09/01/19 09:59 1 applic BID [facility] Administration Nifedipine 60 mg 09/01/19 10:00 Procardia Xl - PO DAILY [facility] Paroxetine HCl 40 mg 09/01/19 10:00 Paxil - PO DAILY [facility] AP: Respiratory failure AMS/ Toxic metabolic encephalopathy Hypothyrodism Throid ca s/p Thyroidectomy Morbid obesity LUCY on CKD DM Anemia with drop in H/H H/o Renal stones Elevated Alk Phos Ventilatory support TSH 98.9, wouldn't expect TSH to change much the first week treatement with LT4 TFT tomorrow Continue IV LT4 100mcg QD and IV hydrocortiosne Taper Hydrocortisone BGM Q 6hrs Novolog SS coverage Will f/u Problem List - Problems (1) AMS (altered mental status) Code(s): R41.82 - ALTERED MENTAL STATUS, UNSPECIFIED (2) Acute metabolic encephalopathy Code(s): G93.41 - METABOLIC ENCEPHALOPATHY (3) Acute renal failure Code(s): N17.9 - ACUTE KIDNEY FAILURE, UNSPECIFIED (4) Diabetes Code(s): E11.9 - TYPE 2 DIABETES MELLITUS WITHOUT COMPLICATIONS (5) Hypercapnic respiratory failure Code(s): J96.92 - RESPIRATORY FAILURE, UNSPECIFIED WITH HYPERCAPNIA (6) Hypothermia Code(s): T68.XXXA - HYPOTHERMIA, INITIAL ENCOUNTER (7) Metabolic acidosis Code(s): E87.2 - ACIDOSIS (8) Morbid obesity Code(s): E66.01 - MORBID (SEVERE) OBESITY DUE TO EXCESS CALORIES
--- NOTE | 2019-08-31 15:53 | PN ---
Physical Exam: SUBJECTIVE: Patient seen this morning, no changes overnight. OBJECTIVE: Vital Signs Period Temp Pulse Resp BP Sys/Amos Pulse Ox Last 24 Hr 98.3 F-100.0 F 53-102 13-29 111-194/52-93 97-99 GENERAL: sedated and intubated EYES: PERRL, extraocular movements intact, sclera anicteric, conjunctiva clear. No ptosis. LUNGS: Breath sounds equal, clear to auscultation bilaterally, no wheezes, no crackles, no accessory muscle use. HEART: Regular rate and rhythm, S1, S2 without murmur, rub or gallop. ABDOMEN: Soft, nontender, nondistended, normoactive bowel sounds, EXTREMITIES: slight swelling SKIN: Warm, dry, normal turgor, no rashes or lesions noted CBC, BMP 08/31/19 05:45 08/31/19 05:45 Active Medications Chlorhexidine Gluconate (Hibiclens For Decolonization -) 1 applic TP HS [facility] Last Admin: 08/30/19 22:27 Dose: 1 applic Heparin Sodium (Porcine) (Heparin -) 5,000 unit SQ TID [facility] Last Admin: 08/31/19 13:44 Dose: 5,000 unit Hydrocortisone Sodium Succinate (Solu-Cortef -) 100 mg IVPUSH Q12H [facility] Last Admin: 08/31/19 11:29 Dose: 100 mg Famotidine/Sodium Chloride (Pepcid 20 Mg Premixed Ivpb -) 20 mg in 50 mls @ 100 mls/hr IVPB DAILY@0800 [facility] Last Admin: 08/31/19 08:22 Dose: 100 mls/hr Propofol (Diprivan -) 1,000,000 mcg in 100 mls @ 34.7 mls/hr IVPB TITR [facility]; Protocol Last Admin: 08/31/19 13:52 Dose: 50 mcg/kg/min, 34.7 mls/hr Fentanyl 500 mcg/ Dextrose 100 mls @ 20 mls/hr IVPB TITR [facility] Last Titration: 08/31/19 14:42 Dose: 25 mcg/hr, 5 mls/hr Sodium Chloride (Normal Saline -) 250 mls @ 3,000 mls/hr IV PRN PRN PRN Reason: Hypotension during Dialysis Stop: 08/31/19 16:20 Insulin Aspart (Novolog Vial Sliding Scale -) 1 vial SQ ACHS [facility]; Protocol Last Admin: 08/31/19 16:20 Dose: Not Given Levothyroxine Sodium (Synthroid Injection -) 100 mcg IVPUSH DAILY [facility] Last Admin: 08/31/19 11:29 Dose: 100 mcg Mupirocin (Bactroban Ointment (For Decolonization) -) 1 applic NS BID [facility] Stop: 09/01/19 09:59 Last Admin: 08/31/19 09:36 Dose: 1 applic Nifedipine (Procardia Xl -) 60 mg PO DAILY [facility] Paroxetine HCl (Paxil -) 40 mg PO DAILY [facility] ASSESSMENT/PLAN: 54 F with PMH of Thyroid cancer s/p thyroidectomy, IDDM, COPD, unspecified mental health disorders, anemia, HTN, HLD who presented with AMS likely due to m yxedema coma. Patient presents with renal failure and combined metabolic and hypercapnic respiratory acidosis requiring NIPPV. Neuro - patient intubated and sedated - sedation vacation and hold feeds tomorrow AM - -Head CT showed mild ventriculomegaly Cardio -Echo shows small pericardial effusion (less than 1 cm) -EF of 65-70% -Trop negative x3 -BP Stable Pulmonary -Patient is intubated. Ventilator on volume control. Cuff leak test showed air movement. -Chest x-ray. ET tube in place. Pleural effusions still present. - possible extubation tomorrow - Hyrdocortisone Sodium 100 mg IV Q8H -Duonebs Q4H PRN -Albuterol Nebulizer Q6H PRN Renal -Tolerated HD today - continue to monitor cr Endocrine -Myxedema coma (TSH 100, Free T4 0.24 on admission) -Hx of hypothyroidism s/p thyroidectomy -Hypothermic on presentation, afebrile now -Hx of IDDM -Hydrocortisone 100 mg Q8H IV for possible adrenal insufficiency -Sliding scale insulin -Endocrine consulted, appreciate recs -Levothyroxine 100 mcg IV - f/u TSH tomorrow Heme/Onc -H/H Stable ID -ID consulted, appreciate recs -Blood culture no growth. -Urine culture shows staph epidermdis. Likely contaminant. -Sputum culture shows preliminary lactose fermenting gram negative bacilli. DVT: SCD's F: No IV Fluids at the moment E: Monitor CMP N: NPO Dispo: Continue monitoring in ICU, try for extubation tomorrow with sedation vacation and turn off feeds Visit type - Emergency Visit Emergency Visit: Yes ED Registration Date: 08/25/19 Care time: The patient presented to the Emergency Department on the above date and was hospitalized for further evaluation of their emergent condition. - New Patient This patient is new to me today: Yes Date on this admission: 08/31/19 - Critical Care Critical Care patient: Yes Total Critical Care Time (in minutes): 45 Critical Care Statement: The care of this patient involved high complexity decision making to prevent further life threatening deterioration of the patient's condition and/or to evaluate & treat vital organ system(s) failure or risk of failure. ATTENDING PHYSICIAN STATEMENT I saw and evaluated the patient. I reviewed the resident's note and discussed the case with the resident. I agree with the resident's findings and plan as documented. SUBJECTIVE: OBJECTIVE: ASSESSMENT AND PLAN:
[2019-08-31] MEDS ORDERED: BENZOIN/ALOE VERA/STORAX/TOLU 58 ML BOTTLE ONE (15:54)
--- NOTE | 2019-08-31 20:51 | PN ---
Progress Note (short form) - Note Progress Note: 1. LUCY 2. fluid overload 3. acute respiratory failure 4. hypothyroidism with tsh of 100 5. 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 urine tox pos for mdma 7. mild rhabdo 8. hx of hepatitis, family does not know if b or c, hep b is positive here Current Medications Chlorhexidine Gluconate (Hibiclens For Decolonization -) 1 applic TP HS [facility] Last Admin: 08/30/19 22:27 Dose: 1 applic Heparin Sodium (Porcine) (Heparin -) 5,000 unit SQ TID [facility] Last Admin: 08/31/19 13:44 Dose: 5,000 unit Hydrocortisone Sodium Succinate (Solu-Cortef -) 100 mg IVPUSH Q12H [facility] Last Admin: 08/31/19 11:29 Dose: 100 mg Famotidine/Sodium Chloride (Pepcid 20 Mg Premixed Ivpb -) 20 mg in 50 mls @ 100 mls/hr IVPB DAILY@0800 [facility] Last Admin: 08/31/19 08:22 Dose: 100 mls/hr Propofol (Diprivan -) 1,000,000 mcg in 100 mls @ 34.7 mls/hr IVPB TITR [facility]; Protocol Last Titration: 08/31/19 19:34 Dose: 40 mcg/kg/min, 27.76 mls/hr Fentanyl 500 mcg/ Dextrose 100 mls @ 20 mls/hr IVPB TITR [facility] Last Titration: 08/31/19 19:39 Dose: 50 mcg/hr, 10 mls/hr Sodium Chloride (Normal Saline -) 250 mls @ 3,000 mls/hr IV PRN PRN PRN Reason: Hypotension during Dialysis Stop: 08/31/19 16:20 Insulin Aspart (Novolog Vial Sliding Scale -) 1 vial SQ ACHS [facility]; Protocol Last Admin: 08/31/19 16:20 Dose: Not Given Levothyroxine Sodium (Synthroid Injection -) 100 mcg IVPUSH DAILY [facility] Last Admin: 08/31/19 11:29 Dose: 100 mcg Mupirocin (Bactroban Ointment (For Decolonization) -) 1 applic NS BID [facility] Stop: 09/01/19 09:59 Last Admin: 08/31/19 09:36 Dose: 1 applic Nifedipine (Procardia Xl -) 60 mg PO DAILY [facility] Paroxetine HCl (Paxil -) 40 mg PO DAILY [facility] Last Vital Signs Temp Pulse Resp BP Pulse Ox 99.7 F H 64 14 172/86 H 100 08/31/19 18:00 08/31/19 20:00 08/31/19 20:00 08/31/19 20:00 08/31/19 19:42 Constitutional: Yes: Other (Intubated and sedated) Eyes: Yes: Other (scleral edema) HENT: Yes: WNL, Atraumatic, Normocephalic Neck: Yes: WNL, Supple, Trachea Midline. RIJ dialysis cath noted (tip @ SVC) Cardiovascular: Yes: Bradycardia (HR 50s) Respiratory: Yes: Mechanically Ventilated (orally intubated on AC, FIO2 40) Gastrointestinal: Yes: Soft, Abdomen, Obese ...Rectal Exam: Yes: Deferred Genitourinary: Yes: Mahoney Present Breast(s): Yes: WNL Extremities: Yes: Delayed Capillary Refill Edema: Yes Edema: LUE: 2+, RUE: 2+, LLE: 3+, RLE: 3+ Peripheral Pulses WNL: No Peripheral Pulses: Left Radial: 1+, Right Radial: 1+, Left Doralis Pedis: 1+, Right Dorsalis Pedis: 1+, Left Femoral: 1+, Right Femoral: 1+ Integumentary: Yes: WNL Neurological: Yes: Other (Intubated and sedated) Psychiatric: Yes: Other (Intubated and sedated) CBC, BMP 08/31/19 05:45 08/31/19 05:45 s/p HD will follow labs
[2019-08-31] MEDS: FENTANYL INJECTION 500 MCG in DEXTROSE 5%-WATER - 90 ML IVPB SCH (21:13)
[2019-08-31] MEDS: CHLORHEXIDINE GLUCONATE 4% CLEANSER FOR DECOLONIZATION TP SCH (21:14)
[2019-09-01] MEDS ORDERED: NIFEdipine E.R 60 MG TABLET PO ONE (05:53)
[2019-09-01] MEDS ORDERED: hydrALAZINE HCL 20 MG/ML VIAL IVPUSH ONE (06:02)
[2019-09-01 07:37] LABS: HEMOGLOBIN 9.6 GM/dL (10.7-15.3); MCH 29.8 pg (25.7-33.7); MCHC 33.1 g/dl (32.0-36.0); MEAN CELL VOLUME 90.1 fl (80-96); MEAN PLT VOLUME 9.2 fl (7.5-11.1); PLATELET COUNT 282 K/MM3 (134-434); RBC 3.22 M/mm3 (3.60-5.2); RDW 17.7 % (11.6-15.6); WHITE BLOOD COUNT 10.8 K/mm3 (4.0-10.0)
[2019-09-01 07:53] LABS: INR 0.94 (0.83-1.09); PROTHROMBIN TIME (PATIENT) 11.1 SEC (9.7-13.0)
[2019-09-01] MEDS: HEPARIN NA (PORCINE) 5,000 UNITS/ML 1ML VIAL SQ SCH ×3 (07:55→21:47)
[2019-09-01 08:04] LABS: ALBUMIN 2.5 g/dl (3.4-5.0); BILIRUBIN,TOTAL 0.4 mg/dL (0.2-1); BLOOD UREA NITROGEN 39.6 mg/dL (7-18); CALCIUM 7.8 mg/dL (8.5-10.1); CREATININE 4.1 mg/dL (0.55-1.3); POTASSIUM 4.1 mmol/L (3.5-5.1); TOT PROT 6.7 g/dl (6.4-8.2)
[2019-09-01] MEDS: INSULIN SLIDING SCALE (NOVOLOG) 1 VIAL SQ SCH ×4 (08:31→22:03)
--- NOTE | 2019-09-01 08:35 | PN ---
Progress Note, Physician Chief Complaint: orally intubated and sedated. Responds to tactile stimuli. Spiking fever. ID followingl History of Present Illness: Patient is a 54 year old morbid obese female with a significant PMD Htn, HLD, DM , COPD, anemia, thyroid cancer 6 years ago. Patient brought into the ED for altered mental status and acute shortness of breath. She was found to have an elevated TSH, low t4 and hypothermic (96f-97-on mariana hugger). Urine is + for ecstasy. She also has renal failure with a creat of 7.7, bun of 65,mag 1.6, elevated ast/alt. In the ED she was placed on bipap & admitted for myxedema coma, acute renal failure, acute metabolic encephalopathy, metabolic acidosis, hypercapneic respiratory failure. Repeat abg without improvement of acidosis, and elevated co2. patient intubated to protect airway. - Current Medication List Current Medications: Active Medications Acetaminophen (Ofirmev Injection -) 1,000 mg IVPB Q6H PRN PRN Reason: FEVER Chlorhexidine Gluconate (Hibiclens For Decolonization -) 1 applic TP HS [facility] Last Admin: 08/31/19 21:14 Dose: 1 applic Heparin Sodium (Porcine) (Heparin -) 5,000 unit SQ TID [facility] Last Admin: 09/01/19 07:55 Dose: 5,000 unit Hydrocortisone Sodium Succinate (Solu-Cortef -) 100 mg IVPUSH Q12H [facility] Last Admin: 08/31/19 11:29 Dose: 100 mg Famotidine/Sodium Chloride (Pepcid 20 Mg Premixed Ivpb -) 20 mg in 50 mls @ 100 mls/hr IVPB DAILY@0800 [facility] Last Admin: 08/31/19 08:22 Dose: 100 mls/hr Propofol (Diprivan -) 1,000,000 mcg in 100 mls @ 34.7 mls/hr IVPB TITR [facility]; Protocol Last Admin: 08/31/19 21:10 Dose: 40 mcg/kg/min, 27.76 mls/hr Fentanyl 500 mcg/ Dextrose 100 mls @ 20 mls/hr IVPB TITR [facility] Last Admin: 08/31/19 21:13 Dose: 50 mcg/hr, 10 mls/hr Sodium Chloride (Normal Saline -) 250 mls @ 3,000 mls/hr IV PRN PRN PRN Reason: Hypotension during Dialysis Stop: 08/31/19 16:20 Insulin Aspart (Novolog Vial Sliding Scale -) 1 vial SQ ACHS [facility]; Protocol Last Admin: 09/01/19 08:31 Dose: 2 units Levothyroxine Sodium (Synthroid Injection -) 100 mcg IVPUSH DAILY [facility] Last Admin: 08/31/19 11:29 Dose: 100 mcg Mupirocin (Bactroban Ointment (For Decolonization) -) 1 applic NS BID [facility] Stop: 09/01/19 09:59 Last Admin: 08/31/19 21:14 Dose: 1 applic Nifedipine (Procardia Xl -) 60 mg PO DAILY [facility] Paroxetine HCl (Paxil -) 40 mg PO DAILY [facility] - Objective Vital Signs: Vital Signs Temperature 99.7 F H 08/31/19 18:00 Pulse Rate 98 H 09/01/19 08:00 Respiratory Rate 21 H 09/01/19 08:25 Blood Pressure 185/85 H 09/01/19 08:00 O2 Sat by Pulse Oximetry (%) 100 08/31/19 19:42 Additional Findings/Remarks: Constitutional: Yes: Other (Intubated and sedated) Eyes: Yes: Other (scleral edema) HENT: Yes: WNL, Atraumatic, Normocephalic Neck: Yes: WNL, Supple, Trachea Midline. RIJ dialysis cath noted (tip @ SVC) Cardiovascular: Yes: Bradycardia (HR 50s) Respiratory: Yes: Mechanically Ventilated (orally intubated on AC, FIO2 40) Gastrointestinal: Yes: Soft, Abdomen, Obese ...Rectal Exam: Yes: Deferred Genitourinary: Yes: Mahoney Present Breast(s): Yes: WNL Extremities: Yes: Delayed Capillary Refill Edema: Yes Edema: LUE: 2+, RUE: 2+, LLE: 3+, RLE: 3+ Peripheral Pulses WNL: No Peripheral Pulses: Left Radial: 1+, Right Radial: 1+, Left Doralis Pedis: 1+, Right Dorsalis Pedis: 1+, Left Femoral: 1+, Right Femoral: 1+ Integumentary: Yes: WNL Neurological: Yes: Other (Intubated and sedated) Psychiatric: Yes: Other (Intubated and sedated) Labs: CBC, BMP 09/01/19 06:08 09/01/19 06:08 INR, PTT INR 0.94 (0.83-1.09) 09/01/19 06:08 Problem List - Problems (1) HTN (hypertension) Assessment/Plan: on lisinipril/ nifedipine at home being held will restart when extubated if needed Code(s): I10 - ESSENTIAL (PRIMARY) HYPERTENSION (2) HLD (hyperlipidemia) Assessment/Plan: c/w atorvastatin when extubated Code(s): E78.5 - HYPERLIPIDEMIA, UNSPECIFIED (3) COPD (chronic obstructive pulmonary disease) Assessment/Plan: duo nebs q4h mechanically ventilated on AC Code(s): J44.9 - CHRONIC OBSTRUCTIVE PULMONARY DISEASE, UNSPECIFIED (4) Anemia Assessment/Plan: recieved 1 u PRBC since admission Hgb 8.8 continue to monitor Code(s): D64.9 - ANEMIA, UNSPECIFIED (5) Thyroid cancer Code(s): C73 - MALIGNANT NEOPLASM OF THYROID GLAND (6) Acute respiratory failure Assessment/Plan: remains orally intuabted no weaning attempts oral care as per nursing turn and reposition appreciate ICU level of care Code(s): J96.00 - ACUTE RESPIRATORY FAILURE, UNSP W HYPOXIA OR HYPERCAPNIA (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 Code(s): F16.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 ABUSE, UNCOMPLICATED (8) LUCY (acute kidney injury) Assessment/Plan: Cr 2.8 HD as per renal avoid nephrotoxic agents Code(s): N17.9 - ACUTE KIDNEY FAILURE, UNSPECIFIED (9) Acute metabolic encephalopathy Assessment/Plan: sedated on propofol amd fentanyl following simple commands during sedation interruption Code(s): G93.41 - METABOLIC ENCEPHALOPATHY (10) Morbid obesity Code(s): E66.01 - MORBID (SEVERE) OBESITY DUE TO EXCESS CALORIES (11) Prophylactic measure Assessment/Plan: FEN no additional IVF TF with nepro vis OGT-tolerating well monitor electrolytes DVT SCDs Dispo requiring ICU care full code discharge planning Code(s): Z29.9 - ENCOUNTER FOR PROPHYLACTIC MEASURES, UNSPECIFIED (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 Assessment/Plan: TSH 98.9 being followed by endo -wouldn't expect TSH to change much the first week treatment with LT4 TFT tomorrow Continue IV LT4 100mcg QD and IV hydrocortiosne Taper Hydrocortisone Code(s): E03.5 - MYXEDEMA COMA (13) Fever Assessment/Plan: T 100.8 CXR with opacity on left effusion to right ID following started on meropenem continue to monitor Code(s): R50.9 - FEVER, UNSPECIFIED Visit type - Emergency Visit Emergency Visit: Yes ED Registration Date: 08/25/19 Care time: The patient presented to the Emergency Department on the above date and was hospitalized for further evaluation of their emergent condition. - New Patient This patient is new to me today: No - Critical Care Critical Care patient: Yes Total Critical Care Time (in minutes): 35 Critical Care Statement: The care of this patient involved high complexity decision making to prevent further life threatening deterioration of the patient 's condition and/or to evaluate & treat vital organ system(s) failure or risk of failure.
[2019-09-01] MEDS: FAMOTIDINE 20 MG/50 ML IVPB 20 MG/50 ML MG IVPB SCH (08:38)
[2019-09-01] MEDS: ACETAMINOPHEN 1000 MG/100 ML VIAL (NON FORMULARY) IVPB PRN (08:50)
[2019-09-01] MEDS: PARoxetine HCL 20 MG TABLET PO SCH (09:05)
[2019-09-01] MEDS ORDERED: PT OWN MED DRAWER 7, Y5N ONE ×2 (09:07→17:11)
[2019-09-01] MEDS ORDERED: NIFEdipine E.R 60 MG TABLET PO SCH ×3 (10:00→20:15)
[2019-09-01] MEDS: LEVOTHYROXINE SODIUM 100 MCG VIAL IVPUSH SCH (10:19)
--- NOTE | 2019-09-01 11:01 | PN ---
Teaching Attending Note Name of Resident: Sandoval Abernathy ATTENDING PHYSICIAN STATEMENT I saw and evaluated the patient. I reviewed the resident's note and discussed the case with the resident. I agree with the resident's findings and plan as documented. SUBJECTIVE: Pt seen and examined in the ICU. Remains intubated, sedated. No cuff leak during rounds. OBJECTIVE: Vital Signs Period Temp Pulse Resp BP Sys/Amos Pulse Ox Last 24 Hr 99.7 F-100.0 F 59-98 13-21 136-201/72-88 100 Intake & Output 08/29/19 08/30/19 08/31/19 09/01/19 23:59 23:59 23:59 23:59 Intake Total 1386.9 864 2465.5 483 Output Total 350 4550 3975 300 Balance 1036.9 -3686 -1509.5 183 Weight 121.9 kg 121.9 kg 119.4 kg 115.8 kg Gen: intubated, sedated Heart: RRR Lung: scattered rhonchi Abd: soft, nontender Ext: + edema CBC, BMP 09/01/19 06:08 09/01/19 06:08 Active Medications Acetaminophen (Ofirmev Injection -) 1,000 mg IVPB Q6H PRN PRN Reason: FEVER Last Admin: 09/01/19 08:50 Dose: 1,000 mg Chlorhexidine Gluconate (Hibiclens For Decolonization -) 1 applic TP HS [facility] Last Admin: 08/31/19 21:14 Dose: 1 applic Heparin Sodium (Porcine) (Heparin -) 5,000 unit SQ TID [facility] Last Admin: 09/01/19 07:55 Dose: 5,000 unit Hydrocortisone Sodium Succinate (Solu-Cortef -) 100 mg IVPUSH Q12H [facility] Last Admin: 08/31/19 11:29 Dose: 100 mg Famotidine/Sodium Chloride (Pepcid 20 Mg Premixed Ivpb -) 20 mg in 50 mls @ 100 mls/hr IVPB DAILY@0800 [facility] Last Admin: 09/01/19 08:38 Dose: 100 mls/hr Propofol (Diprivan -) 1,000,000 mcg in 100 mls @ 34.7 mls/hr IVPB TITR [facility]; Protocol Last Admin: 08/31/19 21:10 Dose: 40 mcg/kg/min, 27.76 mls/hr Fentanyl 500 mcg/ Dextrose 100 mls @ 20 mls/hr IVPB TITR [facility] Last Admin: 08/31/19 21:13 Dose: 50 mcg/hr, 10 mls/hr Sodium Chloride (Normal Saline -) 250 mls @ 3,000 mls/hr IV PRN PRN PRN Reason: Hypotension during Dialysis Stop: 08/31/19 16:20 Insulin Aspart (Novolog Vial Sliding Scale -) 1 vial SQ ACHS [facility]; Protocol Last Admin: 09/01/19 10:50 Dose: 2 units Levothyroxine Sodium (Synthroid Injection -) 100 mcg IVPUSH 0700 [facility] Last Admin: 09/01/19 10:19 Dose: 100 mcg Nifedipine (Procardia Xl -) 60 mg PO DAILY [facility] Last Admin: 09/01/19 09:05 Dose: 60 mg Paroxetine HCl (Paxil -) 40 mg PO DAILY [facility] Last Admin: 09/01/19 09:05 Dose: 40 mg ASSESSMENT AND PLAN: Acute Hypercapneic Respiratory Failure Myxedema Coma UTI Acute Kidney Injury requiring HD COPD DM Anemia - HD per renal with ultrafiltration - monitor urine output, creatinine - completed antibiotics - reculture if febrile - continue hydrocortisone, synthroid - inhaled bronchodilators - O2 to keep SpO2 >90% - daily cuff leak testing - daily sedation vacations to assess mental status - spontaneous breathing trials as tolerated - enteral feeds - DVT/GI prophylaxis - continue ICU monitoring critical care time spent in reviewing chart, evaluating patient and formulating plan 35 min
--- NOTE | 2019-09-01 11:31 | PN ---
Physical Exam: SUBJECTIVE: Patient seen and examined OBJECTIVE: Vital Signs Period Temp Pulse Resp BP Sys/Amos Pulse Ox Last 24 Hr 99.7 F-100.0 F 59-98 13-21 136-201/72-88 100 GENERAL: intubated and sedated HEAD: Normal with no signs of trauma. EYES: PERRL, extraocular movements intact, sclera anicteric, conjunctiva clear. No ptosis. ENT: Ears normal, nares patent, oropharynx clear without exudates, moist mucous membranes. NECK: Trachea midline. LUNGS: faint rhonchi bilaterally HEART: Regular rate and rhythm, S1, S2 without murmur, rub or gallop. ABDOMEN: Soft, nontender, nondistended, obese EXTREMITIES: 2+ pulses, warm, pitting edema to knees (improved) NEUROLOGICAL: sedated and intubated PSYCH: sedated SKIN: Warm, dry, normal turgor, no rashes or lesions noted Laboratory Results - last 24 hr 08/30/19 08/31/19 08/31/19 15:40 11:23 16:18 WBC RBC Hgb Hct MCV MCH MCHC RDW Plt Count MPV PT with INR INR Sodium Potassium Chloride Carbon Dioxide Anion Gap BUN Creatinine Est GFR (CKD-EPI)AfAm Est GFR (CKD-EPI)NonAf POC Glucometer 130 141 Random Glucose Calcium Phosphorus Magnesium Total Bilirubin AST ALT Alkaline Phosphatase Total Protein Albumin TSH Hep A IgM Ab Confirm Negative Hep Bs Antigen Positive H Hep B Core IgM Ab Negative Hepatitis C Ab (EIA) <0.1 08/31/19 09/01/19 09/01/19 21:18 06:08 06:08 WBC 10.8 H RBC 3.22 L Hgb 9.6 L Hct 29.0 L MCV 90.1 MCH 29.8 MCHC 33.1 RDW 17.7 H Plt Count 282 MPV 9.2 PT with INR 11.10 INR 0.94 Sodium Potassium Chloride Carbon Dioxide Anion Gap BUN Creatinine Est GFR (CKD-EPI)AfAm Est GFR (CKD-EPI)NonAf POC Glucometer 226 Random Glucose Calcium Phosphorus Magnesium Total Bilirubin AST ALT Alkaline Phosphatase Total Protein Albumin TSH Hep A IgM Ab Confirm Hep Bs Antigen Hep B Core IgM Ab Hepatitis C Ab (EIA) 09/01/19 09/01/19 06:08 10:49 WBC RBC Hgb Hct MCV MCH MCHC RDW Plt Count MPV PT with INR INR Sodium 134 L Potassium 4.1 Chloride 95 L Carbon Dioxide 27 Anion Gap 11 BUN 39.6 H Creatinine 4.1 H Est GFR (CKD-EPI)AfAm 13.62 Est GFR (CKD-EPI)NonAf 11.75 POC Glucometer 165 Random Glucose 185 H Calcium 7.8 L Phosphorus 6.0 H Magnesium 2.0 Total Bilirubin 0.4 AST 42 H ALT 54 Alkaline Phosphatase 713 H Total Protein 6.7 Albumin 2.5 L TSH 60.20 H Hep A IgM Ab Confirm Hep Bs Antigen Hep B Core IgM Ab Hepatitis C Ab (EIA) Active Medications Generic Name Dose Route Start Last Admin Trade Name Freq PRN Reason Stop Dose Admin Acetaminophen 1,000 mg 09/01/19 08:30 09/01/19 08:50 Ofirmev Injection - IVPB 1,000 mg Q6H PRN Administration FEVER Chlorhexidine Gluconate 1 applic 08/27/19 22:00 08/31/19 21:14 Hibiclens For Decolonization - TP 1 applic HS [facility]OE Administration Heparin Sodium (Porcine) 5,000 unit 08/31/19 14:00 09/01/19 07:55 Heparin - SQ 5,000 unit TID [facility]OE Administration Hydrocortisone Sodium Succinate 100 mg 08/29/19 23:00 08/31/19 11:29 Solu-Cortef - IVPUSH 100 mg Q12H [facility]OE Administration Famotidine/Sodium Chloride 20 mg in 50 mls @ 100 mls/hr 08/26/19 08:00 09/01/19 08:38 Pepcid 20 Mg Premixed Ivpb - IVPB 100 mls/hr DAILY@0800 [facility] Administration Propofol 1,000,000 mcg in 100 mls @ 34.7 mls/hr 08/25/19 18:45 08/31/19 21:10 Diprivan - IVPB 40 mcg/kg/min TITR ZOE 27.76 mls/hr Administration Protocol 50 MCG/KG/MIN Fentanyl 500 mcg/ Dextrose 100 mls @ 20 mls/hr 08/25/19 18:45 08/31/19 21:13 IVPB 50 mcg/hr TITR [facility]OE 10 mls/hr Administration 100 MCG/HR Sodium Chloride 250 mls @ 3,000 mls/hr 08/30/19 16:20 Normal Saline - IV 08/31/19 16:20 PRN PRN Hypotension during Dialysis Insulin Aspart 1 vial 08/26/19 07:00 09/01/19 10:50 Novolog Vial Sliding Scale - SQ 2 units ACHS [facility] Administration Protocol Levothyroxine Sodium 100 mcg 09/01/19 09:15 09/01/19 10:19 Synthroid Injection - IVPUSH 100 mcg 0700 [facility] Administration Nifedipine 60 mg 09/01/19 10:00 09/01/19 09:05 Procardia Xl - PO 60 mg DAILY [facility] Administration Paroxetine HCl 40 mg 09/01/19 10:00 09/01/19 09:05 Paxil - PO 40 mg DAILY [facility] Administration ASSESSMENT/PLAN: 54 y/o F hx of thyroid Ca s/p thyroidectomy, IDDM, COPD, anemia, HTN, HLD, admitted for myxedama coma and respiratory acidosis Neuro intubated and sedated CV has had periods of HTN given hydralazine and nifidepine overnight home dose of daily nifedipine started for BP control Labetalol po 100mg bid labatelol IV if SBP goes above 180 Pulm daily sedation vacations to assess mental status spontaneous breathing trials if tolerated daily cuff leak testing GI enteral feeds FEN monitor electrolytes ID sputum cultrue was positive for gram negative lactose fermenting bacilli low grade fever to 100.3 given tylenol for fever obtain cultures and CXR if she spikes fever again. Renal received HD on 08/30 monitor creatinine and output Endocrine continue hydrcortisone and levothyroxine Visit type - Emergency Visit Emergency Visit: Yes ED Registration Date: 08/25/19 Care time: The patient presented to the Emergency Department on the above date and was hospitalized for further evaluation of their emergent condition. - New Patient This patient is new to me today: No - Critical Care Critical Care patient: No - Discharge Referral Referred to [facility] Med [facility] No ATTENDING PHYSICIAN STATEMENT I saw and evaluated the patient. I reviewed the resident's note and discussed the case with the resident. I agree with the resident's findings and plan as documented. SUBJECTIVE: OBJECTIVE: ASSESSMENT AND PLAN:
[2019-09-01] MEDS ORDERED: LABETALOL HCL 100 MG TABLET (FP) PO SCH (11:45)
[2019-09-01] MEDS ORDERED: LABETALOL HCL 5 MG/1 ML (100MG/20 ML VIAL) IVPUSH PRN (11:45)
[2019-09-01] MEDS: HYDROCORTISONE SOD SUCCINATE 100 MG/2 ML VIAL IVPUSH SCH ×3 (11:55→22:04)
--- NOTE | 2019-09-01 13:46 | PN ---
Progress Note (short form) - Note Progress Note: 54 year old female history of HTN, HLD, DM COPD, Anemia thyroid cancer. Patient came with ams and had CHF, renal failure , anemia . Paitnet was intubated, she was hypothermic. She is on sedation . Paitent has ct head and there is mild dilation of ventricles. There is no evidence of seizure like activity , no high grade fever or neck stiffness. Patient has no head trauma Patient was awake on reduced sedation earlier this morning. There is no seizure. Patient is opening her eye and icu team try to extubate and were not successful. NEUROLOGICAL EXAMINATION sedated and intubated , neck is supple, opens eye to painful stimuli reponds to painful stimuli and opens eye to verbal command pupils reactive no face asymmetry rest of neuro exam is not possible ct head reviewed and mild ventricular dilatation and this could be due to intercurrent illness Assessment/Plan4 year old female history of HTN, HLD, DM COPD, Anemia thyroid cancer. Patient came with ams and had CHF, renal failure , anemia . Patient has Metabolic encephalopathy, there is no evidence of status epilepticus, meningitis or stroke Plan: will review mental status once she is off sedaiton. contiue current level of care Thanking you so much Hill Hayden MD
--- NOTE | 2019-09-01 15:47 | PN ---
Progress Note, Physician History of Present Illness: Pt remains intubated, sedated. Has started spiking fevers, currently 100.8K. - Current Medication List Current Medications: Active Medications Acetaminophen (Ofirmev Injection -) 1,000 mg IVPB Q6H PRN PRN Reason: FEVER Last Admin: 09/01/19 08:50 Dose: 1,000 mg Chlorhexidine Gluconate (Hibiclens For Decolonization -) 1 applic TP HS [facility] Last Admin: 08/31/19 21:14 Dose: 1 applic Heparin Sodium (Porcine) (Heparin -) 5,000 unit SQ TID [facility] Last Admin: 09/01/19 14:26 Dose: 5,000 unit Hydrocortisone Sodium Succinate (Solu-Cortef -) 100 mg IVPUSH Q12H [facility] Last Admin: 09/01/19 11:55 Dose: 100 mg Famotidine/Sodium Chloride (Pepcid 20 Mg Premixed Ivpb -) 20 mg in 50 mls @ 100 mls/hr IVPB DAILY@0800 [facility] Last Admin: 09/01/19 08:38 Dose: 100 mls/hr Propofol (Diprivan -) 1,000,000 mcg in 100 mls @ 34.7 mls/hr IVPB TITR [facility]; Protocol Last Admin: 08/31/19 21:10 Dose: 40 mcg/kg/min, 27.76 mls/hr Fentanyl 500 mcg/ Dextrose 100 mls @ 20 mls/hr IVPB TITR [facility] Last Admin: 08/31/19 21:13 Dose: 50 mcg/hr, 10 mls/hr Sodium Chloride (Normal Saline -) 250 mls @ 3,000 mls/hr IV PRN PRN PRN Reason: Hypotension during Dialysis Stop: 08/31/19 16:20 Meropenem 500 mg/ Dextrose 100 mls @ 200 mls/hr IVPB Q12H [facility] Insulin Aspart (Novolog Vial Sliding Scale -) 1 vial SQ ACHS [facility]; Protocol Last Admin: 09/01/19 10:50 Dose: 2 units Labetalol HCl (Normodyne Injection -) 10 mg IVPUSH Q4H PRN PRN Reason: FOR SBP > 180 Labetalol HCl (Normodyne -) 100 mg PO BID [facility] Last Admin: 09/01/19 11:55 Dose: 100 mg Levothyroxine Sodium (Synthroid Injection -) 100 mcg IVPUSH 0700 [facility] Last Admin: 09/01/19 10:19 Dose: 100 mcg Nifedipine (Procardia Xl -) 60 mg PO DAILY [facility] Last Admin: 09/01/19 09:05 Dose: 60 mg Paroxetine HCl (Paxil -) 40 mg PO DAILY [facility] Last Admin: 09/01/19 09:05 Dose: 40 mg - Objective Vital Signs: Vital Signs Temperature 100.8 F H 09/01/19 13:12 Pulse Rate 92 H 09/01/19 13:12 Respiratory Rate 16 09/01/19 13:12 Blood Pressure 140/72 09/01/19 12:00 O2 Sat by Pulse Oximetry (%) 100 08/31/19 19:42 Constitutional: Yes: No Distress Cardiovascular: Yes: Regular Rate and Rhythm Respiratory: Yes: Mechanically Ventilated Gastrointestinal: Yes: Normal Bowel Sounds, Soft Genitourinary: Yes: Mahoney Present Extremities: Yes: WNL Integumentary: Yes: WNL Neurological: Yes: Other (sedated/intubated) Labs: CBC, BMP 09/01/19 06:08 09/01/19 06:08 INR, PTT INR 0.94 (0.83-1.09) 09/01/19 06:08 Baby's Blood Type, Sadiq Blood Type O POSITIVE 08/25/19 18:32 Microbiology 08/28/19 19:20 Sputum - Endotrachea Suction/Ventilator Gram Stain - Final 08/28/19 19:20 Sputum - Endotrachea Suction/Ventilator Sputum Culture - Preliminary Serratia Marcescens Yeast Like Organism 08/31/19 14:30 Sputum - Endotrachea Suction/Ventilator Gram Stain - Final 08/31/19 14:30 Sputum - Endotrachea Suction/Ventilator Sputum Culture - Preliminary Lactose Fermenting Neg Bacilli 08/25/19 12:33 Blood - Peripheral Venous Blood Culture - Final NO GROWTH AFTER 5 DAYS INCUBATION 08/25/19 12:33 Blood - Peripheral Venous Blood Culture - Final NO GROWTH AFTER 5 DAYS INCUBATION 08/25/19 12:40 Urine - Urine Mahoney Urine Culture - Final Staphylococcus Epidermidis - ....Imaging Chest X-ray: Report Reviewed Problem List - Problems (1) LUCY (acute kidney injury) Code(s): N17.9 - ACUTE KIDNEY FAILURE, UNSPECIFIED (2) AMS (altered mental status) Code(s): R41.82 - ALTERED MENTAL STATUS, UNSPECIFIED (3) Acute metabolic encephalopathy Code(s): G93.41 - METABOLIC ENCEPHALOPATHY (4) Acute respiratory failure Code(s): J96.00 - ACUTE RESPIRATORY FAILURE, UNSP W HYPOXIA OR HYPERCAPNIA (5) Anemia Code(s): D64.9 - ANEMIA, UNSPECIFIED (6) COPD (chronic obstructive pulmonary disease) Code(s): J44.9 - CHRONIC OBSTRUCTIVE PULMONARY DISEASE, UNSPECIFIED (7) Diabetes Code(s): E11.9 - TYPE 2 DIABETES MELLITUS WITHOUT COMPLICATIONS (8) HTN (hypertension) Code(s): I10 - ESSENTIAL (PRIMARY) HYPERTENSION (9) Hypercapnic respiratory failure Code(s): J96.92 - RESPIRATORY FAILURE, UNSPECIFIED WITH HYPERCAPNIA (10) Hypothermia Code(s): T68.XXXA - HYPOTHERMIA, INITIAL ENCOUNTER (11) Morbid obesity Code(s): E66.01 - MORBID (SEVERE) OBESITY DUE TO EXCESS CALORIES (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 - MYXEDEMA COMA (13) Thyroid cancer Code(s): C73 - MALIGNANT NEOPLASM OF THYROID GLAND Assessment/Plan Fever UTI Acute respiratory failure on MV/sedation Acute metabolic encephalopathy AMS Myxedema coma DM LUCY on CKD - started on HD Obesity Hx of thyroid CA s/p thyroidectomy HTN HLD COPD Anemia -- s/p course of antibiotics recently -- spiking fevers again -- latest cultures noted, sputum : serratia, repeat sputum culture results pending -- repeat urine/blood cultures -- Will start Meropenem for now -- continue monitor temp trend, wbc currently is stable rest of care per ICU cc: 40 min
[2019-09-01 17:29] LABS: EPI CELLS >36 /HPF (0-5/HPF); HYALINE CASTS 205 /lpf (0-8); URINE APPEARANCE TURBID; URINE BACTERIA 375.5 /hpf (NEGATIVE); URINE BILIRUBIN NEGATIVE (NEGATIVE); URINE COLOR YELLOW; URINE GLUCOSE (UA) NEGATIVE (NEGATIVE); URINE KETONE NEGATIVE (NEGATIVE); URINE LEUK ESTERASE 3+ (NEGATIVE); URINE NITRITE NEGATIVE (NEGATIVE); URINE PROTEIN 3+ (NEGATIVE); URINE WBC 872 /hpf (0-5)
--- NOTE | 2019-09-01 17:34 | PN ---
Progress Note (short form) - Note Progress Note: 1. LUCY 2. fluid overload 3. acute respiratory failure 4. hypothyroidism with tsh of 100 5. 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 urine tox pos for mdma 7. mild rhabdo 8. hx of hepatitis, family does not know if b or c, hep b is positive here Current Medications Acetaminophen (Ofirmev Injection -) 1,000 mg IVPB Q6H PRN PRN Reason: FEVER Last Admin: 09/01/19 08:50 Dose: 1,000 mg Chlorhexidine Gluconate (Hibiclens For Decolonization -) 1 applic TP HS ZOE Last Admin: 08/31/19 21:14 Dose: 1 applic Heparin Sodium (Porcine) (Heparin -) 5,000 unit SQ TID [facility] Last Admin: 09/01/19 14:26 Dose: 5,000 unit Hydrocortisone Sodium Succinate (Solu-Cortef -) 100 mg IVPUSH Q12H [facility] Last Admin: 09/01/19 11:55 Dose: 100 mg Famotidine/Sodium Chloride (Pepcid 20 Mg Premixed Ivpb -) 20 mg in 50 mls @ 100 mls/hr IVPB DAILY@0800 [facility] Last Admin: 09/01/19 08:38 Dose: 100 mls/hr Propofol (Diprivan -) 1,000,000 mcg in 100 mls @ 34.7 mls/hr IVPB TITR [facility]; Protocol Last Admin: 08/31/19 21:10 Dose: 40 mcg/kg/min, 27.76 mls/hr Fentanyl 500 mcg/ Dextrose 100 mls @ 20 mls/hr IVPB TITR [facility] Last Admin: 08/31/19 21:13 Dose: 50 mcg/hr, 10 mls/hr Sodium Chloride (Normal Saline -) 250 mls @ 3,000 mls/hr IV PRN PRN PRN Reason: Hypotension during Dialysis Stop: 08/31/19 16:20 Meropenem 500 mg/ Dextrose 100 mls @ 200 mls/hr IVPB 0400,1600 [facility] Insulin Aspart (Novolog Vial Sliding Scale -) 1 vial SQ ACHS [facility]; Protocol Last Admin: 09/01/19 10:50 Dose: 2 units Labetalol HCl (Normodyne Injection -) 10 mg IVPUSH Q4H PRN PRN Reason: FOR SBP > 180 Labetalol HCl (Normodyne -) 100 mg PO BID [facility] Last Admin: 09/01/19 11:55 Dose: 100 mg Levothyroxine Sodium (Synthroid Injection -) 100 mcg IVPUSH 0700 [facility] Last Admin: 09/01/19 10:19 Dose: 100 mcg Nifedipine (Procardia Xl -) 60 mg PO DAILY [facility] Last Admin: 09/01/19 09:05 Dose: 60 mg Paroxetine HCl (Paxil -) 40 mg PO DAILY [facility] Last Admin: 09/01/19 09:05 Dose: 40 mg Last Vital Signs Temp Pulse Resp BP Pulse Ox 100.8 F H 92 H 16 140/72 100 09/01/19 13:12 09/01/19 13:12 09/01/19 17:28 09/01/19 12:00 08/31/19 19:42 Constitutional: Yes: Other (Intubated and sedated) Eyes: Yes: Other (scleral edema) HENT: Yes: WNL, Atraumatic, Normocephalic Neck: Yes: WNL, Supple, Trachea Midline. RIJ dialysis cath noted (tip @ SVC) Cardiovascular: Yes: Bradycardia (HR 50s) Respiratory: Yes: Mechanically Ventilated (orally intubated on AC, FIO2 40) Gastrointestinal: Yes: Soft, Abdomen, Obese ...Rectal Exam: Yes: Deferred Genitourinary: Yes: Mahoney Present Breast(s): Yes: WNL Extremities: Yes: Delayed Capillary Refill Edema: Yes Edema: LUE: 2+, RUE: 2+, LLE: 3+, RLE: 3+ Peripheral Pulses WNL: No Peripheral Pulses: Left Radial: 1+, Right Radial: 1+, Left Doralis Pedis: 1+, Right Dorsalis Pedis: 1+, Left Femoral: 1+, Right Femoral: 1+ Integumentary: Yes: WNL Neurological: Yes: Other (Intubated and sedated) Psychiatric: Yes: Other (Intubated and sedated) CBC, BMP 09/01/19 06:08 09/01/19 06:08
[2019-09-01] MEDS ORDERED: SODIUM CHLORIDE 250 ML IV PRN (17:35)
[2019-09-01 17:58] LABS: URINE RBC 159.1 /hpf (0-4); YEAST 4+ (NEGATIVE)
[2019-09-01] MEDS ORDERED: DEXTROSE 5%-WATER 100 ML IVPB ONE (18:48)
[2019-09-01] MEDS ORDERED: MEROPENEM 500 MG VIAL (RESTRICTED TO ID) IVPB ONE (18:48)
[2019-09-01] MEDS: MEROPENEM 500 MG in DEXTROSE 5%-WATER 100 ML IVPB SCH (18:50)
[2019-09-01] MEDS: PROPOFOL 1,000,000 MCG/100 ML VIAL IVPB SCH (19:00)
[2019-09-01] MEDS: FENTANYL INJECTION 500 MCG in DEXTROSE 5%-WATER - 90 ML IVPB SCH (21:47)
[2019-09-01] MEDS: CHLORHEXIDINE GLUCONATE 4% CLEANSER FOR DECOLONIZATION TP SCH (21:47)
[2019-09-01] MEDS ORDERED: fentaNYL CITRATE 250 MCG/5 ML VIAL ONE (21:51)
[2019-09-01] MEDS: NIFEdipine 10 MG CAPSULE (FP) PO SCH (22:04)
[2019-09-02] MEDS ORDERED: MEROPENEM 500 MG VIAL (RESTRICTED TO ID) IVPB ONE ×2 (01:29→17:41)
[2019-09-02] MEDS ORDERED: DEXTROSE 5%-WATER 100 ML IVPB ONE ×2 (01:30→17:41)
[2019-09-02] MEDS: MEROPENEM 500 MG in DEXTROSE 5%-WATER 100 ML IVPB SCH ×2 (03:15→17:43)
[2019-09-02] MEDS: NIFEdipine 10 MG CAPSULE (FP) PO SCH (06:01)
[2019-09-02] MEDS: HEPARIN NA (PORCINE) 5,000 UNITS/ML 1ML VIAL SQ SCH ×3 (06:01→21:46)
[2019-09-02] MEDS: PROPOFOL 1,000,000 MCG/100 ML VIAL IVPB SCH ×3 (06:07→15:49)
[2019-09-02 06:43] LABS: BASO % 0.1 % (0-2.0); HEMATOCRIT 22.9 % (32.4-45.2); HEMOGLOBIN 7.6 GM/dL (10.7-15.3); LYMPH % 16.7 % (8-40); MCH 29.9 pg (25.7-33.7); MEAN CELL VOLUME 90.6 fl (80-96); MEAN PLT VOLUME 9.5 fl (7.5-11.1); MONO % 3.3 % (3.8-10.2); NEUT % 79.9 % (42.8-82.8); PLATELET COUNT 220 K/MM3 (134-434); RBC 2.53 M/mm3 (3.60-5.2); RDW 16.5 % (11.6-15.6); WHITE BLOOD COUNT 8.3 K/mm3 (4.0-10.0)
[2019-09-02 06:49] LABS: INR 0.92 (0.83-1.09); PROTHROMBIN TIME (PATIENT) 10.8 SEC (9.7-13.0)
[2019-09-02] MEDS ORDERED: fentaNYL CITRATE 250 MCG/5 ML VIAL ONE (07:06)
[2019-09-02] MEDS: FENTANYL INJECTION 500 MCG in DEXTROSE 5%-WATER - 90 ML IVPB SCH (07:12)
[2019-09-02] MEDS: INSULIN SLIDING SCALE (NOVOLOG) 1 VIAL SQ SCH ×4 (07:15→22:06)
[2019-09-02] MEDS ORDERED: PT OWN MED DRAWER 7, Y5N ONE ×3 (07:16→21:44)
[2019-09-02 07:19] LABS: BILIRUBIN,TOTAL 0.3 mg/dL (0.2-1); BLOOD UREA NITROGEN 54.4 mg/dL (7-18); CALCIUM 7.1 mg/dL (8.5-10.1); PHOSPHOROUS 7.6 mg/dL (2.5-4.9); TOT PROT 5.5 g/dl (6.4-8.2)
[2019-09-02] MEDS: FAMOTIDINE 20 MG/50 ML IVPB 20 MG/50 ML MG IVPB SCH (08:03)
--- NOTE | 2019-09-02 08:07 | PROC ---
Central Line Insertion Indication: Poor Venous Access Risks and Benefits Explained: Yes Consent on Chart: Yes Central Line: Triple Lumen Catheter Anesthesia: 1% Lidocaine Sterile Technique: Yes Ultrasound Guided Assistance: Yes Position: Right Internal Jugular Post Insertion: Yes: Bilateral Breath Sounds, Bilateral Chest Expansion, Chest X-Ray Ordered Sterile Dressing Applied: Yes
[2019-09-02] MEDS: LEVOTHYROXINE SODIUM 100 MCG VIAL IVPUSH SCH (08:17)
[2019-09-02 08:43] LABS: HEMATOCRIT 25.6 % (32.4-45.2); HEMOGLOBIN 8.5 GM/dL (10.7-15.3); MCHC 33.1 g/dl (32.0-36.0); MEAN CELL VOLUME 90.5 fl (80-96); PLATELET COUNT 228 K/MM3 (134-434); RBC 2.82 M/mm3 (3.60-5.2); RDW 16.9 % (11.6-15.6); WHITE BLOOD COUNT 9.3 K/mm3 (4.0-10.0)
--- NOTE | 2019-09-02 08:50 | PN ---
Physical Exam: SUBJECTIVE: Patient seen and examined in the icu. sedated on propofol. OBJECTIVE: Patient is a 54 year old morbid obese female with a significant past medical history of hypertension, hyperlipidemia, diabetes, COPD, anemia, thyroid cancer 6 years ago (no prior admission to [facility]). Patient brought into the ED 08/25/19 for altered mental status and acute shortness of breath. She was found to have an elevated TSH, low t4 and hypothermic (96f-97-on mariana hugger ). Urine was + for ecstasy. on admission had renal failure with a creat of 7.7 , bun of 65,mag 1.6, elevated ast/alt. 24 hours Anemia with drop in H/H - repeat cbc getting dialysis currently with goal of 3 liters off tmax 100.8f bradycardia 49s hep b positive Vital Signs Period Temp Pulse Resp BP Sys/Amos Pulse Ox Last 24 Hr 97.3 F-100.8 F 48-96 14-21 90-172/43-86 100-100 GENERAL: intubated, generalized edema HEAD: Normal with no signs of trauma. EARS, NOSE, THROAT: Ears normal, nares patent, oropharynx clear without exudates. Moist mucous membranes. NECK: Normal range of motion, supple without lymphadenopathy, JVD, or masses. LUNGS: mild wheezing on anterior lobes, posterior lobes diminished breath sounds HEART: Regular rate and rhythm ABDOMEN: large obese abdomen MUSCULOSKELETAL: No CVA tenderness. UPPER EXTREMITIES:no edema LOWER EXTREMITIES: +1 lower ext edema, right leg externally rotated from? NEUROLOGICAL:lethargic PSYCHIATRIC: lethargic SKIN: multiple tattoos Laboratory Results - last 24 hr 09/01/19 09/01/19 09/01/19 10:49 14:50 22:02 WBC RBC Hgb Hct MCV MCH MCHC RDW Plt Count MPV Absolute Neuts (auto) Neutrophils % Lymphocytes % Monocytes % Eosinophils % Basophils % Nucleated RBC % PT with INR INR Sodium Potassium Chloride Carbon Dioxide Anion Gap BUN Creatinine Est GFR (CKD-EPI)AfAm Est GFR (CKD-EPI)NonAf POC Glucometer 165 203 Random Glucose Calcium Phosphorus Magnesium Total Bilirubin AST ALT Alkaline Phosphatase Total Protein Albumin Urine Color Yellow Urine Appearance Turbid Urine pH 6.0 Ur Specific Grady 1.024 Urine Protein 3+ H Urine Glucose (UA) Negative Urine Ketones Negative Urine Blood Negative Urine Nitrite Negative Urine Bilirubin Negative Urine Urobilinogen 1.0 Ur Leukocyte Esterase 3+ H Urine WBC (Auto) 872 Urine RBC (Auto) 159.1 Urine Casts (Auto) 205 U Epithel Cells (Auto) >36 Urine Bacteria (Auto) 375.5 Urine Yeast (Auto) 4+ 09/02/19 09/02/19 09/02/19 05:57 06:00 06:00 WBC 8.3 RBC 2.53 L Hgb 7.6 L Hct 22.9 L D MCV 90.6 MCH 29.9 MCHC 33.0 RDW 16.5 H Plt Count 220 D MPV 9.5 Absolute Neuts (auto) 6.6 Neutrophils % 79.9 Lymphocytes % 16.7 Monocytes % 3.3 L Eosinophils % 0.0 Basophils % 0.1 D Nucleated RBC % 0 PT with INR INR Sodium 135 L Potassium 4.0 Chloride 96 L Carbon Dioxide 29 Anion Gap 11 BUN 54.4 H Creatinine 5.0 H Est GFR (CKD-EPI)AfAm 10.72 Est GFR (CKD-EPI)NonAf 9.25 POC Glucometer 165 Random Glucose 173 H Calcium 7.1 L Phosphorus 7.6 H Magnesium 2.0 Total Bilirubin 0.3 AST 33 ALT 45 Alkaline Phosphatase 537 H Total Protein 5.5 L Albumin 2.0 L Urine Color Urine Appearance Urine pH Ur Specific Grady Urine Protein Urine Glucose (UA) Urine Ketones Urine Blood Urine Nitrite Urine Bilirubin Urine Urobilinogen Ur Leukocyte Esterase Urine WBC (Auto) Urine RBC (Auto) Urine Casts (Auto) U Epithel Cells (Auto) Urine Bacteria (Auto) Urine Yeast (Auto) 09/02/19 06:00 WBC RBC Hgb Hct MCV MCH MCHC RDW Plt Count MPV Absolute Neuts (auto) Neutrophils % Lymphocytes % Monocytes % Eosinophils % Basophils % Nucleated RBC % PT with INR 10.80 INR 0.92 Sodium Potassium Chloride Carbon Dioxide Anion Gap BUN Creatinine Est GFR (CKD-EPI)AfAm Est GFR (CKD-EPI)NonAf POC Glucometer Random Glucose Calcium Phosphorus Magnesium Total Bilirubin AST ALT Alkaline Phosphatase Total Protein Albumin Urine Color Urine Appearance Urine pH Ur Specific Grady Urine Protein Urine Glucose (UA) Urine Ketones Urine Blood Urine Nitrite Urine Bilirubin Urine Urobilinogen Ur Leukocyte Esterase Urine WBC (Auto) Urine RBC (Auto) Urine Casts (Auto) U Epithel Cells (Auto) Urine Bacteria (Auto) Urine Yeast (Auto) Active Medications Generic Name Dose Route Start Last Admin Trade Name Juan Daniel PRN Reason Stop Dose Admin Acetaminophen 1,000 mg 09/01/19 08:30 09/01/19 08:50 Ofirmev Injection - IVPB 1,000 mg Q6H PRN Administration FEVER Chlorhexidine Gluconate 1 applic 08/27/19 22:00 09/01/19 21:47 Hibiclens For Decolonization - TP 1 applic HS ZOE Administration Heparin Sodium (Porcine) 5,000 unit 08/31/19 14:00 09/02/19 06:01 Heparin - SQ 5,000 unit TID ZOE Administration Hydrocortisone Sodium Succinate 100 mg 08/29/19 23:00 09/01/19 22:04 Solu-Cortef - IVPUSH 100 mg Q12H ZOE Administration Famotidine/Sodium Chloride 20 mg in 50 mls @ 100 mls/hr 08/26/19 08:00 08:03 Pepcid 20 Mg Premixed Ivpb - IVPB 100 mls/hr DAILY@0800 [facility]OE Administration Propofol 1,000,000 mcg in 100 mls @ 34.7 mls/hr 08/25/19 18:45 09/02/19 06:07 Diprivan - IVPB 40 mcg/kg/min TITR ZOE 27.76 mls/hr Administration Protocol 50 MCG/KG/MIN Fentanyl 500 mcg/ Dextrose 100 mls @ 20 mls/hr 08/25/19 18:45 09/02/19 07:12 IVPB 50 mcg/hr TITR ZOE 10 mls/hr Administration 100 MCG/HR Meropenem 500 mg/ Dextrose 100 mls @ 200 mls/hr 09/01/19 16:00 09/02/19 03:15 IVPB 200 mls/hr 0400,1600 [facility]OE Administration Sodium Chloride 250 mls @ 3,000 mls/hr 09/01/19 17:35 Normal Saline - IV 09/02/19 17:36 PRN PRN Hypotension during Dialysis Insulin Aspart 1 vial 08/26/19 07:00 09/02/19 07:15 Novolog Vial Sliding Scale - SQ 2 units ACHS [facility] Administration Protocol Levothyroxine Sodium 100 mcg 09/01/19 09:15 09/02/19 08:17 Synthroid Injection - IVPUSH 100 mcg 0700 [facility] Administration Nifedipine 20 mg 09/01/19 22:00 09/02/19 06:01 Procardia Capsule - PO Not Given TID ZOE Paroxetine HCl 40 mg 09/01/19 10:00 09/01/19 09:05 Paxil - PO 40 mg DAILY [facility] Administration ASSESSMENT/PLAN: Problem List - Problems (1) Myxedema coma Assessment/Plan: Patient with a history of hypothyroidism and thyroid cancer and presents to the Ed with altered mental stauts, hypothermia (97F) requiring a mariana hugger, acute renal failure (creat 7.7 with unknown baseline), elevated liver enzymes, metabolic acidosis, acute shortness of breath, obtunded requiring intubation to protect airway. repeat abgs without improvement with which shows respiratory failure with hypercapnia. TSH 60.20 being followed by endo Continue IV LT4 100mcg QD and IV hydrocortiosne Taper Hydrocortisone Code(s): E03.5 - MYXEDEMA COMA (2) Hypercapnic respiratory failure Assessment/Plan: initally on bipap on admission, now intubated Code(s): J96.92 - RESPIRATORY FAILURE, UNSPECIFIED WITH HYPERCAPNIA (3) SOB (shortness of breath) Assessment/Plan: in the setting of uremia, ecstasy in urine, hypercapnic respiratory failure and possible myxedema coma Code(s): R06.02 - SHORTNESS OF BREATH (4) Acute metabolic encephalopathy Assessment/Plan: patient presents to the ED obtuned Has + ecstasy in urine Patient for ICU monitoring Head Ct noted, neuro consulted monitor mental status/neuro status sedation vacation per icu Code(s): G93.41 - METABOLIC ENCEPHALOPATHY (5) Morbid obesity Assessment/Plan: outpatient follow up Code(s): E66.01 - MORBID (SEVERE) OBESITY DUE TO EXCESS CALORIES (6) AMS (altered mental status) Assessment/Plan: see acute metabolic encephalopathy Code(s): R41.82 - ALTERED MENTAL STATUS, UNSPECIFIED (7) Acute renal failure Assessment/Plan: receiving dialysis today Code(s): N17.9 - ACUTE KIDNEY FAILURE, UNSPECIFIED (8) Metabolic acidosis Assessment/Plan: hydrocortisone taper for possible adrenal insufficiency Code(s): E87.2 - ACIDOSIS (9) Diabetes Assessment/Plan: [facility] ac/hs Code(s): E11.9 - TYPE 2 DIABETES MELLITUS WITHOUT COMPLICATIONS (10) Hypothermia Assessment/Plan: hypothermia of unclear etiology on admission now with fever spikes in last 24 hours ID following, on meropenem blood cultures negatve and urine cultures + with 50-[address] + sputum/lactose fermenting bacteria/yeast/serratia Code(s): T68.XXXA - HYPOTHERMIA, INITIAL ENCOUNTER (11) Anemia Assessment/Plan: received 1 PRBC since admission Hgb 8.5 continue to monitor Code(s): D64.9 - ANEMIA, UNSPECIFIED (12) HLD (hyperlipidemia) Code(s): E78.5 - HYPERLIPIDEMIA, UNSPECIFIED Visit type - Emergency Visit Emergency Visit: Yes ED Registration Date: 08/25/19 Care time: The patient presented to the Emergency Department on the above date and was hospitalized for further evaluation of their emergent condition. - New Patient This patient is new to me today: No - Critical Care Critical Care patient: Yes Total Critical Care Time (in minutes): 45 Critical Care Statement: The care of this patient involved high complexity decision making to prevent further life threatening deterioration of the patient 's condition and/or to evaluate & treat vital organ system(s) failure or risk of failure.
[2019-09-02] MEDS: PARoxetine HCL 20 MG TABLET PO SCH (09:00)
[2019-09-02] MEDS ORDERED: NIFEdipine E.R 60 MG TABLET PO SCH (10:00)
--- NOTE | 2019-09-02 11:14 | PN ---
Teaching Attending Note Name of Resident: Marta Chong ATTENDING PHYSICIAN STATEMENT I saw and evaluated the patient. I reviewed the resident's note and discussed the case with the resident. I agree with the resident's findings and plan as documented. SUBJECTIVE: Pt seen and examined in the ICU. Remains intubated, sedated. Currently on HD. No pressors. OBJECTIVE: Vital Signs Period Temp Pulse Resp BP Sys/Amos Pulse Ox Last 24 Hr 97.3 F-100.8 F 48-94 14-19 90-148/43-90 100-100 Intake & Output 08/30/19 08/31/19 09/01/19 09/02/19 23:59 23:59 23:59 23:59 Intake Total 864 2465.5 1136.6 1341 Output Total 4550 3975 700 3430 Balance -3686 -1509.5 436.6 -2089 Weight 121.9 kg 119.4 kg 115.8 kg 117.254 kg Gen: intubated, sedated Heart: RRR Lung: decreased breath sounds at the bases Abd: soft, nontender Ext: + edema CBC, BMP 09/02/19 08:17 09/02/19 06:00 Active Medications Acetaminophen (Ofirmev Injection -) 1,000 mg IVPB Q6H PRN PRN Reason: FEVER Last Admin: 09/01/19 08:50 Dose: 1,000 mg Amlodipine Besylate (Norvasc -) 10 mg PO DAILY REPLACED BY [facility] Chlorhexidine Gluconate (Hibiclens For Decolonization -) 1 applic TP HS REPLACED BY [facility] Last Admin: 09/01/19 21:47 Dose: 1 applic Heparin Sodium (Porcine) (Heparin -) 5,000 unit SQ TID [facility]PLACED BY [facility] Last Admin: 09/02/19 06:01 Dose: 5,000 unit Hydrocortisone Sodium Succinate (Solu-Cortef -) 100 mg IVPUSH Q12H REPLACED BY [facility] Last Admin: 09/01/19 22:04 Dose: 100 mg Famotidine/Sodium Chloride (Pepcid 20 Mg Premixed Ivpb -) 20 mg in 50 mls @ 100 mls/hr IVPB DAILY@0800 REPLACED [facility] Last Admin: 09/02/19 08:03 Dose: 100 mls/hr Propofol (Diprivan -) 1,000,000 mcg in 100 mls @ 34.7 mls/hr IVPB TITR [facility]; Protocol Last Admin: 09/02/19 09:49 Dose: 40 mcg/kg/min, 27.76 mls/hr Fentanyl 500 mcg/ Dextrose 100 mls @ 20 mls/hr IVPB TITR REPLACED BY [facility] Last Titration: 09/02/19 09:57 Dose: 0 mcg/hr, 0 mls/hr Meropenem 500 mg/ Dextrose 100 mls @ 200 mls/hr IVPB 0400,1600 REPLACED BY [facility] Last Admin: 09/02/19 03:15 Dose: 200 mls/hr Sodium Chloride (Normal Saline -) 250 mls @ 3,000 mls/hr IV PRN PRN PRN Reason: Hypotension during Dialysis Stop: 09/02/19 17:36 Insulin Aspart (Novolog Vial Sliding Scale -) 1 vial SQ ACHS REPLACED BY [facility]; Protocol Last Admin: 09/02/19 07:15 Dose: 2 units Levothyroxine Sodium (Synthroid Injection -) 100 mcg IVPUSH 0700 REPLACED BY [facility] Last Admin: 09/02/19 08:17 Dose: 100 mcg Paroxetine HCl (Paxil -) 40 mg PO DAILY REPLACED BY [facility] Last Admin: 09/02/19 09:00 Dose: 40 mg ASSESSMENT AND PLAN: Acute Hypercapneic Respiratory Failure Myxedema Coma UTI Acute Kidney Injury requiring HD COPD DM Anemia - HD per renal with ultrafiltration - monitor urine output, creatinine - completed antibiotics - reculture - continue hydrocortisone, synthroid - inhaled bronchodilators - O2 to keep SpO2 >90% - daily cuff leak testing - daily sedation vacations to assess mental status - spontaneous breathing trials as tolerated - enteral feeds - DVT/GI prophylaxis - continue ICU monitoring critical care time spent in reviewing chart, evaluating patient and formulating plan 35 min
--- NOTE | 2019-09-02 11:21 | PN ---
Physical Exam: SUBJECTIVE: Patient seen and examined in the morning. No acute events overnight. No events on cardiac monitoring. Patient is currently sedated. OBJECTIVE: Vital Signs Period Temp Pulse Resp BP Sys/Amos Pulse Ox Last 24 Hr 97.3 F-100.8 F 48-94 14-19 90-148/43-90 100-100 GENERAL: The patient is intubated and sedated. HEAD: Atraumatic. EYES: PERRLA, exophthalmos improved. NECK: Trachea midline, full range of motion, supple. LUNGS:Ventilator sounds, clear. HEART: Regular rate and rhythm, S1, S2 without murmur, rub or gallop. ABDOMEN: Soft, nontender, nondistended, normoactive bowel sounds EXTREMITIES: 2+ pulses, warm, well-perfused, no edema. NEUROLOGICAL:Unable to assess. SKIN: Warm, dry, no erythema. Laboratory Results - last 24 hr 09/01/19 09/01/19 09/02/19 14:50 22:02 05:57 WBC RBC Hgb Hct MCV MCH MCHC RDW Plt Count MPV Absolute Neuts (auto) Neutrophils % Lymphocytes % Monocytes % Eosinophils % Basophils % Nucleated RBC % PT with INR INR Sodium Potassium Chloride Carbon Dioxide Anion Gap BUN Creatinine Est GFR (CKD-EPI)AfAm Est GFR (CKD-EPI)NonAf POC Glucometer 203 165 Random Glucose Calcium Phosphorus Magnesium Total Bilirubin AST ALT Alkaline Phosphatase Total Protein Albumin Urine Color Yellow Urine Appearance Turbid Urine pH 6.0 Ur Specific [place] 1.024 Urine Protein 3+ H Urine Glucose (UA) Negative Urine Ketones Negative Urine Blood Negative Urine Nitrite Negative Urine Bilirubin Negative Urine Urobilinogen 1.0 Ur Leukocyte Esterase 3+ H Urine WBC (Auto) 872 Urine RBC (Auto) 159.1 Urine Casts (Auto) 205 U Epithel Cells (Auto) >36 Urine Bacteria (Auto) 375.5 Urine Yeast (Auto) 4+ 09/02/19 09/02/19 09/02/19 06:00 06:00 06:00 WBC 8.3 RBC 2.53 L Hgb 7.6 L Hct 22.9 L D MCV 90.6 MCH 29.9 MCHC 33.0 RDW 16.5 H Plt Count 220 D MPV 9.5 Absolute Neuts (auto) 6.6 Neutrophils % 79.9 Lymphocytes % 16.7 Monocytes % 3.3 L Eosinophils % 0.0 Basophils % 0.1 D Nucleated RBC % 0 PT with INR 10.80 INR 0.92 Sodium 135 L Potassium 4.0 Chloride 96 L Carbon Dioxide 29 Anion Gap 11 BUN 54.4 H Creatinine 5.0 H Est GFR (CKD-EPI)AfAm 10.72 Est GFR (CKD-EPI)NonAf 9.25 POC Glucometer Random Glucose 173 H Calcium 7.1 L Phosphorus 7.6 H Magnesium 2.0 Total Bilirubin 0.3 AST 33 ALT 45 Alkaline Phosphatase 537 H Total Protein 5.5 L Albumin 2.0 L Urine Color Urine Appearance Urine pH Ur Specific [place] Urine Protein Urine Glucose (UA) Urine Ketones Urine Blood Urine Nitrite Urine Bilirubin Urine Urobilinogen Ur Leukocyte Esterase Urine WBC (Auto) Urine RBC (Auto) Urine Casts (Auto) U Epithel Cells (Auto) Urine Bacteria (Auto) Urine Yeast (Auto) 09/02/19 08:17 WBC 9.3 RBC 2.82 L Hgb 8.5 L Hct 25.6 L MCV 90.5 MCH 30.0 MCHC 33.1 RDW 16.9 H Plt Count 228 MPV 9.0 Absolute Neuts (auto) Neutrophils % Lymphocytes % Monocytes % Eosinophils % Basophils % Nucleated RBC % PT with INR INR Sodium Potassium Chloride Carbon Dioxide Anion Gap BUN Creatinine Est GFR (CKD-EPI)AfAm Est GFR (CKD-EPI)NonAf POC Glucometer Random Glucose Calcium Phosphorus Magnesium Total Bilirubin AST ALT Alkaline Phosphatase Total Protein Albumin Urine Color Urine Appearance Urine pH Ur Specific [place] Urine Protein Urine Glucose (UA) Urine Ketones Urine Blood Urine Nitrite Urine Bilirubin Urine Urobilinogen Ur Leukocyte Esterase Urine WBC (Auto) Urine RBC (Auto) Urine Casts (Auto) U Epithel Cells (Auto) Urine Bacteria (Auto) Urine Yeast (Auto) Active Medications Generic Name Dose Route Start Last Admin Trade Name Freq PRN Reason Stop Dose Admin Acetaminophen 1,000 mg 09/01/19 08:30 09/01/19 08:50 Ofirmev Injection - IVPB 1,000 mg Q6H PRN Administration FEVER Amlodipine Besylate 10 mg 09/02/19 11:00 Norvasc - PO DAILY ZOE Chlorhexidine Gluconate 1 applic 08/27/19 22:00 09/01/19 21:47 Hibiclens For Decolonization - TP 1 applic HS ZOE Administration Heparin Sodium (Porcine) 5,000 unit 08/31/19 14:00 09/02/19 06:01 Heparin - SQ 5,000 unit TID ZOE Administration Hydrocortisone Sodium Succinate 100 mg 08/29/19 23:00 09/01/19 22:04 Solu-Cortef - IVPUSH 100 mg Q12H ZOE Administration Famotidine/Sodium Chloride 20 mg in 50 mls @ 100 mls/hr 08/26/19 08:00 09/02/19 08:03 Pepcid 20 Mg Premixed Ivpb - IVPB 100 mls/hr DAILY@0800 ZOE Administration Propofol 1,000,000 mcg in 100 mls @ 34.7 mls/hr 08/25/19 18:45 09/02/19 09:49 Diprivan - IVPB 40 mcg/kg/min TITR ZOE 27.76 mls/hr Administration Protocol 50 MCG/KG/MIN Fentanyl 500 mcg/ Dextrose 100 mls @ 20 mls/hr 08/25/19 18:45 09/02/19 09:57 IVPB 0 mcg/hr TITR ZOE 0 mls/hr Titration 100 MCG/HR Meropenem 500 mg/ Dextrose 100 mls @ 200 mls/hr 09/01/19 16:00 09/02/19 03:15 IVPB 200 mls/hr 0400,1600 ZOE Administration Sodium Chloride 250 mls @ 3,000 mls/hr 09/01/19 17:35 Normal Saline - IV 09/02/19 17:36 PRN PRN Hypotension during Dialysis Insulin Aspart 1 vial 08/26/19 07:00 09/02/19 07:15 Novolog Vial Sliding Scale - SQ 2 units ACHS ZOE Administration Protocol Levothyroxine Sodium 100 mcg 09/01/19 09:15 09/02/19 08:17 Synthroid Injection - IVPUSH 100 mcg 0700 ZOE Administration Paroxetine HCl 40 mg 09/01/19 10:00 09/02/19 09:00 Paxil - PO 40 mg DAILY ZOE Administration ASSESSMENT/PLAN: 54 F with PMH of Thyroid cancer s/p thyroidectomy, IDDM, COPD, unspecified mental health disorders, anemia, HTN, HLD who presented with AMS likely due to myxedema coma. Patient presents with renal failure and combined metabolic and hypercapnic respiratory acidosis requiring NIPPV. Pulmonary -Patient is intubated. Ventilator on volume control. Attempt wean today. -Chest x-ray was underpenetrated in the morning. -Echo shows pleural effusions present -Hx of COPD, will be getting Hyrdocortisone Sodium 100 mg IV Q8H -Duonebs Q4H PRN -Albuterol Nebulizer Q6H PRN Renal -BUN/Cr of 54.4/5.0 -Nephrology consulted, appreciate recs. -Renal U/S negative -Tolerated HD today -Urine culture/UA today. Endocrine -Myxedema coma (TSH 100, Free T4 0.24 on admission) -Hx of hypothyroidism s/p thyroidectomy -Hypothermic on presentation, afebrile now -Hx of IDDM -Hydrocortisone 100 mg Q8H IV for possible adrenal insufficiency -Sliding scale insulin -Endocrine consulted, appreciate recs -Levothyroxine 100 mcg IV -Weekly TSH checks. TSH was 60.20 yesterday. Heme/Onc -H/H Stable ID -ID consulted, appreciate recs -Temperature spike to 100.8 yesterday. Hansen cultured. Urine Culture today. -Blood culture no growth. -1st Urine culture shows staph epidermdis. Likely contaminant. -1st Sputum culture shows preliminary lactose fermenting gram negative bacilli. -Switched to Meropenem Neuro/Psych -Head CT showed mild ventriculomegaly -Constant monitoring -Utox showed MDMA+, false positive from psych medications. Cardiac -Echo shows small pericardial effusion (less than 1 cm) -EF of 65-70% -Pleural effusions present -Trop negative x3 -Patient was hypertensive to 201 systolic yesterday. Received Labetolol 100 BID and Nifedipine 60 yesterday. -Amlodipine 10 daily -Labetolol 100 mg BID F: No IV Fluids at the moment E: Monitor CMP N: Tube feeds Lines: Right sided Central line from 08/27/19. Dispo: Continue monitoring in ICU DVT: SCD Visit type - Emergency Visit Emergency Visit: Yes ED Registration Date: 08/25/19 Care time: The patient presented to the Emergency Department on the above date and was hospitalized for further evaluation of their emergent condition. - New Patient This patient is new to me today: No - Critical Care Critical Care patient: Yes Total Critical Care Time (in minutes): 45 Critical Care Statement: The care of this patient involved high complexity dec ision making to prevent further life threatening deterioration of the patient's condition and/or to evaluate & treat vital organ system(s) failure or risk of failure. ATTENDING PHYSICIAN STATEMENT I saw and evaluated the patient. I reviewed the resident's note and discussed the case with the resident. I agree with the resident's findings and plan as documented. SUBJECTIVE: OBJECTIVE: ASSESSMENT AND PLAN:
[2019-09-02] MEDS: amLODIPine BESYLATE 10 MG TABLET (FP) PO SCH (12:58)
[2019-09-02] MEDS: HYDROCORTISONE SOD SUCCINATE 100 MG/2 ML VIAL IVPUSH SCH ×2 (13:00→22:07)
[2019-09-02] MEDS ORDERED: SODIUM BICARBONATE 8.4% 50 MEQ/50 ML VIAL IV SCH (13:00)
--- NOTE | 2019-09-02 13:58 | PN ---
Progress Note, Physician History of Present Illness: Pt seen and examined at bedside. She remains in the ICU. She remains intubated. She remains in the ICU. - Current Medication List Current Medications: Active Medications Acetaminophen (Ofirmev Injection -) 1,000 mg IVPB Q6H PRN PRN Reason: FEVER Last Admin: 09/01/19 08:50 Dose: 1,000 mg Amlodipine Besylate (Norvasc -) 10 mg PO DAILY [facility] Last Admin: 09/02/19 12:58 Dose: 10 mg Chlorhexidine Gluconate (Hibiclens For Decolonization -) 1 applic TP HS [facility] Last Admin: 09/01/19 21:47 Dose: 1 applic Furosemide (Lasix Injection -) 80 mg IVPUSH ONCE ONE Stop: 09/03/19 10:01 Heparin Sodium (Porcine) (Heparin -) 5,000 unit SQ TID [facility] Last Admin: 09/02/19 06:01 Dose: 5,000 unit Hydrocortisone Sodium Succinate (Solu-Cortef -) 100 mg IVPUSH Q12H [facility] Last Admin: 09/02/19 13:00 Dose: 100 mg Famotidine/Sodium Chloride (Pepcid 20 Mg Premixed Ivpb -) 20 mg in 50 mls @ 100 mls/hr IVPB DAILY@0800 [facility] Last Admin: 09/02/19 08:03 Dose: 100 mls/hr Propofol (Diprivan -) 1,000,000 mcg in 100 mls @ 34.7 mls/hr IVPB TITR [facility]; Protocol Last Titration: 09/02/19 11:49 Dose: 0 mcg/kg/min, 0 mls/hr Fentanyl 500 mcg/ Dextrose 100 mls @ 20 mls/hr IVPB TITR [facility] Last Titration: 09/02/19 09:57 Dose: 0 mcg/hr, 0 mls/hr Meropenem 500 mg/ Dextrose 100 mls @ 200 mls/hr IVPB 0400,1600 [facility] Last Admin: 09/02/19 03:15 Dose: 200 mls/hr Sodium Chloride (Normal Saline -) 250 mls @ 3,000 mls/hr IV PRN PRN PRN Reason: Hypotension during Dialysis Stop: 09/02/19 17:36 Insulin Aspart (Novolog Vial Sliding Scale -) 1 vial SQ ACHS [facility]; Protocol Last Admin: 09/02/19 07:15 Dose: 2 units Labetalol HCl (Normodyne -) 100 mg PO BID [facility] Levothyroxine Sodium (Synthroid Injection -) 100 mcg IVPUSH 0700 [facility] Last Admin: 09/02/19 08:17 Dose: 100 mcg Paroxetine HCl (Paxil -) 40 mg PO DAILY [facility] Last Admin: 09/02/19 09:00 Dose: 40 mg Sodium Bicarbonate (Sodium Bicarbonate 8.4% -) 100 meq IV Q8H [facility] - Objective Vital Signs: Vital Signs Temperature 97.3 F L 09/02/19 08:00 Pulse Rate 49 L 09/02/19 11:16 Respiratory Rate 14 09/02/19 11:16 Blood Pressure 122/64 09/02/19 11:16 O2 Sat by Pulse Oximetry (%) 100 09/02/19 08:37 Constitutional: Yes: Calm Eyes: Yes: Conjunctiva Clear HENT: Yes: Atraumatic Cardiovascular: Yes: S1, S2 Respiratory: Yes: Mechanically Ventilated Gastrointestinal: Yes: Soft, Abdomen, Obese Genitourinary: Yes: [place] Present, Oliguria Edema: Yes Edema: LLE: 1+, RLE: 1+ Neurological: Yes: Lethargy Labs: CBC, BMP 09/02/19 08:17 09/02/19 06:00 INR, PTT INR 0.92 (0.83-1.09) 09/02/19 06:00 - ....Imaging Chest X-ray: Report Reviewed Problem List - Problems (1) AMS (altered mental status) Code(s): R41.82 - ALTERED MENTAL STATUS, UNSPECIFIED (2) Acute metabolic encephalopathy Code(s): G93.41 - METABOLIC ENCEPHALOPATHY (3) Acute renal failure Code(s): N17.9 - ACUTE KIDNEY FAILURE, UNSPECIFIED (4) Diabetes Code(s): E11.9 - TYPE 2 DIABETES MELLITUS WITHOUT COMPLICATIONS (5) Hypercapnic respiratory failure Code(s): J96.92 - RESPIRATORY FAILURE, UNSPECIFIED WITH HYPERCAPNIA (6) Hypothermia Code(s): T68.XXXA - HYPOTHERMIA, INITIAL ENCOUNTER (7) Morbid obesity Code(s): E66.01 - MORBID (SEVERE) OBESITY DUE TO EXCESS CALORIES Assessment/Plan Current Medications Generic Name Dose Route Start Last Admin Trade Name Freq PRN Reason Stop Dose Admin Acetaminophen 1,000 mg 09/01/19 08:30 09/01/19 08:50 Ofirmev Injection - IVPB 1,000 mg Q6H PRN Administration FEVER Amlodipine Besylate 10 mg 09/02/19 11:00 09/02/19 12:58 Norvasc - PO 10 mg DAILY ZOE Administration Chlorhexidine Gluconate 1 applic 08/27/19 22:00 09/01/19 21:47 Hibiclens For Decolonization - TP 1 applic HS ZOE Administration Furosemide 80 mg 09/03/19 10:00 Lasix Injection - IVPUSH 09/03/19 10:01 ONCE ONE Heparin Sodium (Porcine) 5,000 unit 08/31/19 14:00 09/02/19 06:01 Heparin - SQ 5,000 unit TID ZOE Administration Hydrocortisone Sodium Succinate 100 mg 08/29/19 23:00 09/02/19 13:00 Solu-Cortef - IVPUSH 100 mg Q12H ZOE Administration Famotidine/Sodium Chloride 20 mg in 50 mls @ 100 mls/hr 08/26/19 08:00 08:03 Pepcid 20 Mg Premixed Ivpb - IVPB 100 mls/hr DAILY@0800 ZOE Administration Propofol 1,000,000 mcg in 100 mls @ 34.7 mls/hr 08/25/19 18:45 09/02/19 11:49 Diprivan - IVPB 0 mcg/kg/min TITR ZOE 0 mls/hr Titration Protocol 50 MCG/KG/MIN Fentanyl 500 mcg/ Dextrose 100 mls @ 20 mls/hr 08/25/19 18:45 09/02/19 09:57 IVPB 0 mcg/hr TITR ZOE 0 mls/hr Titration 100 MCG/HR Meropenem 500 mg/ Dextrose 100 mls @ 200 mls/hr 09/01/19 16:00 09/02/19 03:15 IVPB 200 mls/hr 0400,1600 ZOE Administration Sodium Chloride 250 mls @ 3,000 mls/hr 09/01/19 17:35 Normal Saline - IV 09/02/19 17:36 PRN PRN Hypotension during Dialysis Insulin Aspart 1 vial 08/26/19 07:00 09/02/19 07:15 Novolog Vial Sliding Scale - SQ 2 units ACHS ZOE Administration Protocol Labetalol HCl 100 mg 09/02/19 14:00 Normodyne - PO BID ZOE Levothyroxine Sodium 100 mcg 09/01/19 09:15 09/02/19 08:17 Synthroid Injection - IVPUSH 100 mcg 0700 ZOE Administration Paroxetine HCl 40 mg 09/01/19 10:00 09/02/19 09:00 Paxil - PO 40 mg DAILY ZOE Administration Sodium Bicarbonate 100 meq 09/03/19 08:00 Sodium Bicarbonate 8.4% - IV Q8H ZOE Impression 1. LUCY 2. fluid overload 3. acute respiratory failure 4. hypothyroidism with tsh of 100 5. 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 urine tox pos for mdma 7. mild rhabdo 8. hx of hepatitis, family does not know if b or c, hep b is positive here Plan - repeat spep - check kappa and lambda - cxr reviewed - serologies negative - will need terminal carman HD access - vent support - oncology eval - HD today
[2019-09-02] MEDS: LABETALOL HCL 100 MG TABLET (FP) PO SCH ×2 (15:12→21:46)
--- NOTE | 2019-09-02 15:31 | PN ---
Progress Note (short form) - Note Progress Note: 54 year old female history of HTN, HLD, DM COPD, Anemia thyroid cancer. Patient came with ams and had CHF, renal failure , anemia . Paitnet was intubated, she was hypothermic. She is on sedation . Paitent has ct head and there is mild dilation of ventricles. There is no evidence of seizure like activity , no high grade fever or neck stiffness. Patient has no head trauma Patient was awake on reduced sedation earlier this morning. There is no seizure. patient is sedated and getting dialysis on september 02 am. NEUROLOGICAL EXAMINATION sedated and intubated , neck is supple, opens eye to painful stimuli reponds to painful stimuli and opens eye to verbal command pupils reactive no face asymmetry rest of neuro exam is not possible ct head reviewed and mild ventricular dilatation and this could be due to intercurrent illness Assessment/Plan4 year old female history of HTN, HLD, DM COPD, Anemia thyroid cancer. Patient came with ams and had CHF, renal failure , anemia . Patient has Metabolic encephalopathy, there is no evidence of status epilepticus, meningitis or stroke Plan: will review mental status once she is off sedaiton. contiue current level of care will continue to follow re examine once she is off sedation. Thanking you so much Hill Hayden MD
--- NOTE | 2019-09-02 15:39 | PN ---
Progress Note, Physician History of Present Illness: continues to be intubated improving - Current Medication List Current Medications: Active Medications Acetaminophen (Ofirmev Injection -) 1,000 mg IVPB Q6H PRN PRN Reason: FEVER Last Admin: 09/01/19 08:50 Dose: 1,000 mg Amlodipine Besylate (Norvasc -) 10 mg PO DAILY [facility] Last Admin: 09/02/19 12:58 Dose: 10 mg Chlorhexidine Gluconate (Hibiclens For Decolonization -) 1 applic TP HS [facility] Last Admin: 09/01/19 21:47 Dose: 1 applic Furosemide (Lasix Injection -) 80 mg IVPUSH ONCE ONE Stop: 09/03/19 10:01 Heparin Sodium (Porcine) (Heparin -) 5,000 unit SQ TID [facility] Last Admin: 09/02/19 06:01 Dose: 5,000 unit Hydrocortisone Sodium Succinate (Solu-Cortef -) 100 mg IVPUSH Q12H [facility] Last Admin: 09/02/19 13:00 Dose: 100 mg Famotidine/Sodium Chloride (Pepcid 20 Mg Premixed Ivpb -) 20 mg in 50 mls @ 100 mls/hr IVPB DAILY@0800 [facility] Last Admin: 09/02/19 08:03 Dose: 100 mls/hr Propofol (Diprivan -) 1,000,000 mcg in 100 mls @ 34.7 mls/hr IVPB TITR [facility]; Protocol Last Titration: 09/02/19 11:49 Dose: 0 mcg/kg/min, 0 mls/hr Meropenem 500 mg/ Dextrose 100 mls @ 200 mls/hr IVPB 0400,1600 [facility] Last Admin: 09/02/19 03:15 Dose: 200 mls/hr Sodium Chloride (Normal Saline -) 250 mls @ 3,000 mls/hr IV PRN PRN PRN Reason: Hypotension during Dialysis Stop: 09/02/19 17:36 Dexmedetomidine HCl 200 mcg/ (Sodium Chloride) 50 mls @ 5.86 mls/hr IVPB TITR [facility] Insulin Aspart (Novolog Vial Sliding Scale -) 1 vial SQ ACHS [facility]; Protocol Last Admin: 09/02/19 07:15 Dose: 2 units Labetalol HCl (Normodyne -) 100 mg PO BID [facility] Last Admin: 09/02/19 15:12 Dose: 100 mg Levothyroxine Sodium (Synthroid Injection -) 100 mcg IVPUSH 0700 [facility] Last Admin: 09/02/19 08:17 Dose: 100 mcg Paroxetine HCl (Paxil -) 40 mg PO DAILY [facility] Last Admin: 09/02/19 09:00 Dose: 40 mg - Objective Vital Signs: Vital Signs Temperature 97.3 F L 09/02/19 08:00 Pulse Rate 49 L 09/02/19 11:16 Respiratory Rate 14 09/02/19 13:00 Blood Pressure 122/64 09/02/19 11:16 O2 Sat by Pulse Oximetry (%) 100 09/02/19 08:37 Constitutional: Yes: Obese, Other Cardiovascular: Yes: S1, S2 Respiratory: Yes: Intubated, Mechanically Ventilated Gastrointestinal: Yes: Normal Bowel Sounds, Soft Musculoskeletal: Yes: WNL Extremities: Yes: WNL Neurological: Yes: Other Psychiatric: Yes: Other Labs: CBC, BMP 09/02/19 08:17 09/02/19 06:00 INR, PTT INR 0.92 (0.83-1.09) 09/02/19 06:00 Assessment/Plan Problem List - Problems (1) LUCY (acute kidney injury) Code(s): N17.9 - ACUTE KIDNEY FAILURE, UNSPECIFIED (2) AMS (altered mental status) Code(s): R41.82 - ALTERED MENTAL STATUS, UNSPECIFIED (3) Acute metabolic encephalopathy Code(s): G93.41 - METABOLIC ENCEPHALOPATHY (4) Acute respiratory failure Code(s): J96.00 - ACUTE RESPIRATORY FAILURE, UNSP W HYPOXIA OR HYPERCAPNIA (5) Anemia Code(s): D64.9 - ANEMIA, UNSPECIFIED (6) COPD (chronic obstructive pulmonary disease) Code(s): J44.9 - CHRONIC OBSTRUCTIVE PULMONARY DISEASE, UNSPECIFIED (7) Diabetes Code(s): E11.9 - TYPE 2 DIABETES MELLITUS WITHOUT COMPLICATIONS (8) HTN (hypertension) Code(s): I10 - ESSENTIAL (PRIMARY) HYPERTENSION (9) Hypercapnic respiratory failure Code(s): J96.92 - RESPIRATORY FAILURE, UNSPECIFIED WITH HYPERCAPNIA (10) Hypothermia Code(s): T68.XXXA - HYPOTHERMIA, INITIAL ENCOUNTER (11) Morbid obesity Code(s): E66.01 - MORBID (SEVERE) OBESITY DUE TO EXCESS CALORIES (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 - MYXEDEMA COMA (13) Thyroid cancer Code(s): C73 - MALIGNANT NEOPLASM OF THYROID GLAND Assessment/Plan Acute respiratory failure on MV/sedation Acute metabolic encephalopathy AMS Myxedema coma DM LUCY on CKD Obesity Hx of thyroid CA s/p thyroidectomy HTN HLD COPD Anemia --pt remains intubated/sedated ct abx --monitor wbc trend, rest of care per ICU nutrition cc: 40 min
[2019-09-02] MEDS ORDERED: MIDAZOLAM HCL 2 MG/2 ML SINGLE DOSE VIAL IVPUSH ONE (15:42)
[2019-09-02] MEDS: DEXMEDETOMIDINE HCL 200 MCG in SODIUM CHLORIDE 48 ML IVPB SCH ×2 (17:47→22:30)
[2019-09-02] MEDS: CHLORHEXIDINE GLUCONATE 4% CLEANSER FOR DECOLONIZATION TP SCH (21:46)
[2019-09-03] MEDS: DEXMEDETOMIDINE HCL 200 MCG in SODIUM CHLORIDE 48 ML IVPB SCH ×3 (01:00→15:28)
[2019-09-03] MEDS ORDERED: DEXTROSE 5%-WATER 100 ML IVPB ONE ×2 (02:41→15:21)
[2019-09-03] MEDS ORDERED: MEROPENEM 500 MG VIAL (RESTRICTED TO ID) IVPB ONE ×2 (02:41→15:21)
[2019-09-03] MEDS: MEROPENEM 500 MG in DEXTROSE 5%-WATER 100 ML IVPB SCH ×2 (03:07→17:20)
[2019-09-03] MEDS ORDERED: LABETALOL HCL 5 MG/1 ML (100MG/20 ML VIAL) IVPUSH ONE (03:09)
[2019-09-03] MEDS: HEPARIN NA (PORCINE) 5,000 UNITS/ML 1ML VIAL SQ SCH ×3 (06:16→21:18)
[2019-09-03] MEDS: INSULIN SLIDING SCALE (NOVOLOG) 1 VIAL SQ SCH ×4 (06:17→22:35)
[2019-09-03] MEDS: LEVOTHYROXINE SODIUM 100 MCG VIAL IVPUSH SCH (06:18)
[2019-09-03] MEDS ORDERED: PT OWN MED DRAWER 7, Y5N ONE ×2 (06:28→08:46)
[2019-09-03 06:46] LABS: HEMATOCRIT 24.8 % (32.4-45.2); HEMOGLOBIN 8.3 GM/dL (10.7-15.3); LYMPH % 13.5 % (8-40); MCH 29.8 pg (25.7-33.7); MCHC 33.4 g/dl (32.0-36.0); MEAN CELL VOLUME 89.1 fl (80-96); MEAN PLT VOLUME 9.2 fl (7.5-11.1); MONO % 2.5 % (3.8-10.2); PLATELET COUNT 224 K/MM3 (134-434); RBC 2.78 M/mm3 (3.60-5.2); RDW 16.6 % (11.6-15.6); WHITE BLOOD COUNT 9.3 K/mm3 (4.0-10.0)
[2019-09-03 07:12] LABS: ALBUMIN 2.1 g/dl (3.4-5.0); BILIRUBIN,TOTAL 0.4 mg/dL (0.2-1); BLOOD UREA NITROGEN 47.2 mg/dL (7-18); CALCIUM 7.9 mg/dL (8.5-10.1); CREATININE 4.3 mg/dL (0.55-1.3); MAGNESIUM 2.2 mg/dL (1.8-2.4); POTASSIUM 3.9 mmol/L (3.5-5.1); TOT PROT 6.1 g/dl (6.4-8.2)
[2019-09-03] MEDS ORDERED: SODIUM BICARBONATE 8.4% 50 MEQ/50 ML VIAL IV SCH (08:00)
[2019-09-03] MEDS: FAMOTIDINE 20 MG/50 ML IVPB 20 MG/50 ML MG IVPB SCH (08:48)
[2019-09-03] MEDS: LABETALOL HCL 100 MG TABLET (FP) PO SCH ×2 (09:00→21:17)
[2019-09-03] MEDS: PARoxetine HCL 20 MG TABLET PO SCH (09:00)
--- NOTE | 2019-09-03 09:23 | PN ---
Progress Note (short form) - Note Progress Note: Intubated, currently off sedation Opens eyes to verbal stimuli Vital Signs Period Temp Pulse Resp BP Sys/Amos Pulse Ox Last 24 Hr 97.8 F-99.4 F 49-75 9-31 86-183/54-90 99-100 PE: Intubated, Opens eyes to verbal stimuli Neck: Supple LUngs: CTA CVs: S1S2 Abd: Benign CMP Sodium 136 mmol/L (136-145) 09/03/19 05:38 Potassium 3.9 mmol/L (3.5-5.1) 09/03/19 05:38 Chloride 98 mmol/L (98-107) 09/03/19 05:38 Carbon Dioxide 30 mmol/L (21-32) 09/03/19 05:38 Anion Gap 8 MMOL/L (8-16) 09/03/19 05:38 BUN 47.2 mg/dL (7-18) H 09/03/19 05:38 Creatinine 4.3 mg/dL (0.55-1.3) H 09/03/19 05:38 Est GFR (CKD-EPI)AfAm 12.86 09/03/19 05:38 Est GFR (CKD-EPI)NonAf 11.10 09/03/19 05:38 POC Glucometer 238 UNITS (80-120) 09/03/19 06:11 Random Glucose 231 mg/dL (74-106) H 09/03/19 05:38 Lactic Acid 0.7 mmol/L (0.4-2.0) 08/25/19 11:00 Calcium 7.9 mg/dL (8.5-10.1) L 09/03/19 05:38 Phosphorus 6.0 mg/dL (2.5-4.9) H 09/03/19 05:38 Magnesium 2.2 mg/dL (1.8-2.4) 09/03/19 05:38 Total Bilirubin 0.4 mg/dL (0.2-1) 09/03/19 05:38 Direct Bilirubin 0.2 mg/dL (0.0-0.2) 08/26/19 05:54 AST 34 U/L (15-37) 09/03/19 05:38 ALT 48 U/L (13-61) 09/03/19 05:38 Alkaline Phosphatase 605 U/L (45-117) H 09/03/19 05:38 Ammonia 24.90 umol/L (11-32) 08/25/19 11:00 Creatine Kinase 1133 U/L (26-192) H 08/26/19 05:54 Creatine Kinase Index 0.8 % (0.0-5.0) 08/26/19 05:54 CK-MB (CK-2) 9.5 ng/mL (0.5-3.6) H 08/26/19 05:54 Troponin I < 0.02 ng/ml (0.00-0.05) 08/26/19 05:54 B-Natriuretic Peptide 3649.4 pg/ml (5-125) H 08/25/19 11:00 Total Protein 6.1 g/dl (6.4-8.2) L 09/03/19 05:38 Total Protein (PEP) 5.6 g/dL (6.0-8.5) L 08/26/19 21:25 Albumin 2.1 g/dl (3.4-5.0) L 09/03/19 05:38 Albumin (PEP) 2.4 gm/dl (2.9-4.4) L 08/26/19 21:25 Globulin 3.2 g/dL (2.2-3.9) 08/26/19 21:25 Albumin/Globulin Ratio 0.8 (0.7-1.7) 08/26/19 21:25 Beta Globulins 0.9 gm/dL (0.7-1.3) 08/26/19 21:25 Beta-Hydroxybutyrate 1.1 mg/dL (0.2-2.8) 08/25/19 11:00 Procalcitonin 1.29 ng/mL (0.00-0.08) H 08/25/19 13:41 TSH 60.20 uIU/ml (0.358-3.74) H 09/01/19 06:08 Free T4 0.24 ng/dl (0.76-1.46) L 08/25/19 11:00 Thyroxine (T4) 3.2 ug/dl (4.5-13.9) L 08/25/19 11:00 Free T3 0.5 pg/ml (2.0-4.4) L 08/25/19 13:24 Resin T3 Uptake 30.3 % (30-39) 08/26/19 05:54 Serum , Qual Negative 08/30/19 15:40 Cortisol Pre Dose Time 40.10 mcg/dL (.) 08/25/19 12:46 Current Medications Generic Name Dose Route Start Last Admin Trade Name Freq PRN Reason Stop Dose Admin Acetaminophen 1,000 mg 09/01/19 08:30 09/01/19 08:50 Ofirmev Injection - IVPB 1,000 mg Q6H PRN Administration FEVER Amlodipine Besylate 10 mg 09/02/19 11:00 09/02/19 12:58 Norvasc - PO 10 mg DAILY ZOE Administration Chlorhexidine Gluconate 1 applic 08/27/19 22:00 09/02/19 21:46 Hibiclens For Decolonization - TP 1 applic HS ZOE Administration Fentanyl 50 mcg 09/02/19 21:30 09/03/19 03:36 Sublimaze Injection - IVPUSH 09/03/19 21:29 50 mcg Q1H PRN Administration AGITATION Furosemide 80 mg 09/03/19 10:00 Lasix Injection - IVPUSH 09/03/19 10:01 ONCE ONE Heparin Sodium (Porcine) 5,000 unit 08/31/19 14:00 09/03/19 06:16 Heparin - SQ 5,000 unit TID ZOE Administration Hydrocortisone Sodium Succinate 100 mg 08/29/19 23:00 09/02/19 22:07 Solu-Cortef - IVPUSH 100 mg Q12H ZOE Administration Famotidine/Sodium Chloride 20 mg in 50 mls @ 100 mls/hr 08/26/19 08:00 08:48 Pepcid 20 Mg Premixed Ivpb - IVPB 100 mls/hr DAILY@0800 ZOE Administration Meropenem 500 mg/ Dextrose 100 mls @ 200 mls/hr 09/01/19 16:00 09/03/19 03:07 IVPB 200 mls/hr 0400,1600 ZOE Administration Sodium Chloride 250 mls @ 3,000 mls/hr 09/01/19 17:35 Normal Saline - IV 09/02/19 17:36 PRN PRN Hypotension during Dialysis Dexmedetomidine HCl 200 mcg/ 50 mls @ 5.86 mls/hr 09/02/19 15:15 09/03/19 01: 00 Sodium Chloride IVPB 0.6 mcg/kg/hr TITR ZOE 17.58 mls/hr Administration 0.2 MCG/KG/HR Insulin Aspart 1 vial 08/26/19 07:00 09/03/19 06:17 Novolog Vial Sliding Scale - SQ 3 units ACHS ZOE Administration Protocol Labetalol HCl 100 mg 09/02/19 14:00 09/02/19 21:46 Normodyne - PO 100 mg BID ZOE Administration Levothyroxine Sodium 100 mcg 09/01/19 09:15 09/03/19 06:18 Synthroid Injection - IVPUSH 100 mcg 0700 ZOE Administration Paroxetine HCl 40 mg 09/01/19 10:00 09/02/19 09:00 Paxil - PO 40 mg DAILY ZOE Administration AP: Respiratory failure AMS/ Toxic metabolic encephalopathy Hypothyrodism Throid ca s/p Thyroidectomy Morbid obesity LUCY on CKD DM Anemia with drop in H/H H/o Renal stones Elevated Alk Phos Ventilatory support TSH 60.2 now, Rpt TSH with FT4 in 4 to 5 days Continue IV LT4 100mcg QD and IV hydrocortiosne BGM Q 6hrs Novolog SS coverage Will f/u Problem List - Problems (1) AMS (altered mental status) Code(s): R41.82 - ALTERED MENTAL STATUS, UNSPECIFIED (2) Acute metabolic encephalopathy Code(s): G93.41 - METABOLIC ENCEPHALOPATHY (3) Acute renal failure Code(s): N17.9 - ACUTE KIDNEY FAILURE, UNSPECIFIED (4) Diabetes Code(s): E11.9 - TYPE 2 DIABETES MELLITUS WITHOUT COMPLICATIONS (5) Hypercapnic respiratory failure Code(s): J96.92 - RESPIRATORY FAILURE, UNSPECIFIED WITH HYPERCAPNIA (6) Hypothermia Code(s): T68.XXXA - HYPOTHERMIA, INITIAL ENCOUNTER (7) Metabolic acidosis Code(s): E87.2 - ACIDOSIS (8) Morbid obesity Code(s): E66.01 - MORBID (SEVERE) OBESITY DUE TO EXCESS CALORIES
--- NOTE | 2019-09-03 09:30 | PN ---
Physical Exam: SUBJECTIVE: Patient seen and examined in the icu, more awake and alert. attempting to speak and following simple commands. OBJECTIVE: Patient is a 54 year old morbid obese female with a significant past medical history of hypertension, hyperlipidemia, diabetes, COPD, anemia, thyroid cancer 6 years ago (no prior admission to [facility]). Patient brought into the ED 08/25/19 for altered mental status and acute shortness of breath. She was found to have an elevated TSH, low t4 and hypothermic (96f-97-on mariana hugger ). Urine was + for ecstasy. on admission had renal failure with a creat of 7.7 , bun of 65,mag 1.6, elevated ast/alt. She remains in the icu, on ventilator. Vital Signs Period Temp Pulse Resp BP Sys/Amos Pulse Ox Last 24 Hr 97.8 F-99.4 F 49-75 9-31 86-183/54-90 99-100 GENERAL: intubated, generalized edema - awake, more alert HEAD: Normal with no signs of trauma. EARS, NOSE, THROAT: Ears normal, nares patent, oropharynx clear without exudates. Moist mucous membranes. NECK: Normal range of motion, supple without lymphadenopathy, JVD, or masses. LUNGS: mild wheezing on anterior lobes, posterior lobes diminished breath sounds HEART: Regular rate and rhythm ABDOMEN: large obese abdomen MUSCULOSKELETAL: No CVA tenderness. UPPER EXTREMITIES:no edema LOWER EXTREMITIES: +1 lower ext edema NEUROLOGICAL:more awake, alert PSYCHIATRIC: lethargic SKIN: multiple tattoos Laboratory Results - last 24 hr 09/02/19 09/02/19 09/02/19 13:29 18:04 22:04 WBC RBC Hgb Hct MCV MCH MCHC RDW Plt Count MPV Absolute Neuts (auto) Neutrophils % Lymphocytes % Monocytes % Eosinophils % Basophils % Nucleated RBC % Sodium Potassium Chloride Carbon Dioxide Anion Gap BUN Creatinine Est GFR (CKD-EPI)AfAm Est GFR (CKD-EPI)NonAf POC Glucometer 116 181 182 Random Glucose Calcium Phosphorus Magnesium Total Bilirubin AST ALT Alkaline Phosphatase Total Protein Albumin 09/03/19 09/03/19 09/03/19 05:38 05:38 06:11 WBC 9.3 RBC 2.78 L Hgb 8.3 L Hct 24.8 L MCV 89.1 MCH 29.8 MCHC 33.4 RDW 16.6 H Plt Count 224 MPV 9.2 Absolute Neuts (auto) 7.8 Neutrophils % 84.0 H Lymphocytes % 13.5 Monocytes % 2.5 L Eosinophils % 0.0 Basophils % 0.0 Nucleated RBC % 0 Sodium 136 Potassium 3.9 Chloride 98 Carbon Dioxide 30 Anion Gap 8 BUN 47.2 H Creatinine 4.3 H Est GFR (CKD-EPI)AfAm 12.86 Est GFR (CKD-EPI)NonAf 11.10 POC Glucometer 238 Random Glucose 231 H Calcium 7.9 L Phosphorus 6.0 H Magnesium 2.2 Total Bilirubin 0.4 AST 34 ALT 48 Alkaline Phosphatase 605 H Total Protein 6.1 L Albumin 2.1 L Active Medications Generic Name Dose Route Start Last Admin Trade Name Freq PRN Reason Stop Dose Admin Acetaminophen 1,000 mg 09/01/19 08:30 09/01/19 08:50 Ofirmev Injection - IVPB 1,000 mg Q6H PRN Administration FEVER Amlodipine Besylate 10 mg 09/02/19 11:00 09/02/19 12:58 Norvasc - PO 10 mg DAILY ZOE Administration Chlorhexidine Gluconate 1 applic 08/27/19 22:00 09/02/19 21:46 Hibiclens For Decolonization - TP 1 applic HS ZOE Administration Fentanyl 50 mcg 09/02/19 21:30 09/03/19 03:36 Sublimaze Injection - IVPUSH 09/03/19 21:29 50 mcg Q1H PRN Administration AGITATION Furosemide 80 mg 09/03/19 10:00 Lasix Injection - IVPUSH 09/03/19 10:01 ONCE ONE Heparin Sodium (Porcine) 5,000 unit 08/31/19 14:00 09/03/19 06:16 Heparin - SQ 5,000 unit TID ZOE Administration Hydrocortisone Sodium Succinate 100 mg 08/29/19 23:00 09/02/19 22:07 Solu-Cortef - IVPUSH 100 mg Q12H ZOE Administration Famotidine/Sodium Chloride 20 mg in 50 mls @ 100 mls/hr 08/26/19 08:00 08:48 Pepcid 20 Mg Premixed Ivpb - IVPB 100 mls/hr DAILY@0800 ZOE Administration Meropenem 500 mg/ Dextrose 100 mls @ 200 mls/hr 09/01/19 16:00 09/03/19 03:07 IVPB 200 mls/hr 0400,1600 ZOE Administration Sodium Chloride 250 mls @ 3,000 mls/hr 09/01/19 17:35 Normal Saline - IV 09/02/19 17:36 PRN PRN Hypotension during Dialysis Dexmedetomidine HCl 200 mcg/ 50 mls @ 5.86 mls/hr 09/02/19 15:15 09/03/19 01: 00 Sodium Chloride IVPB 0.6 mcg/kg/hr TITR ZOE 17.58 mls/hr Administration 0.2 MCG/KG/HR Insulin Aspart 1 vial 08/26/19 07:00 09/03/19 06:17 Novolog Vial Sliding Scale - SQ 3 units ACHS ZOE Administration Protocol Labetalol HCl 100 mg 09/02/19 14:00 09/02/19 21:46 Normodyne - PO 100 mg BID ZOE Administration Levothyroxine Sodium 100 mcg 09/01/19 09:15 09/03/19 06:18 Synthroid Injection - IVPUSH 100 mcg 0700 ZOE Administration Paroxetine HCl 40 mg 09/01/19 10:00 09/02/19 09:00 Paxil - PO 40 mg DAILY ZOE Administration ASSESSMENT/PLAN: Problem List - Problems (1) Myxedema coma Assessment/Plan: Patient with a history of hypothyroidism and thyroid cancer and presents to the Ed with altered mental stauts, hypothermia (97F) requiring a mariana hugger, acute renal failure (creat 7.7 with unknown baseline), elevated liver enzymes, metabolic acidosis, acute shortness of breath, obtunded requiring intubation to protect airway. repeat abgs without improvement with which shows respiratory failure with hypercapnia. TSH 60.20 being followed by endo Continue IV LT4 100mcg QD and IV hydrocortiosne Taper Hydrocortisone Code(s): E03.5 - MYXEDEMA COMA (2) Hypercapnic respiratory failure Assessment/Plan: initally on bipap on admission, now intubated Duonebs Q4H prn, Albuterol Nebulizer Q6H PRN Code(s): J96.92 - RESPIRATORY FAILURE, UNSPECIFIED WITH HYPERCAPNIA (3) SOB (shortness of breath) Assessment/Plan: in the setting of uremia, ecstasy in urine, hypercapnic respiratory failure and possible myxedema coma Code(s): R06.02 - SHORTNESS OF BREATH (4) Acute metabolic encephalopathy Assessment/Plan: patient presents to the ED obtuned Has + ecstasy in urine Patient for ICU monitoring Head Ct noted, neuro consulted monitor mental status/neuro status Code(s): G93.41 - METABOLIC ENCEPHALOPATHY (5) Morbid obesity Assessment/Plan: outpatient follow up Code(s): E66.01 - MORBID (SEVERE) OBESITY DUE TO EXCESS CALORIES (6) AMS (altered mental status) Assessment/Plan: see acute metabolic encephalopathy Code(s): R41.82 - ALTERED MENTAL STATUS, UNSPECIFIED (7) Acute renal failure Assessment/Plan: HD per renal Code(s): N17.9 - ACUTE KIDNEY FAILURE, UNSPECIFIED (8) Metabolic acidosis Assessment/Plan: hydrocortisone taper for possible adrenal insufficiency Code(s): E87.2 - ACIDOSIS (9) Diabetes Assessment/Plan: [facility] [place] Code(s): E11.9 - TYPE 2 DIABETES MELLITUS WITHOUT COMPLICATIONS (10) Hypothermia Assessment/Plan: hypothermia of unclear etiology on admission ID following, on meropenem blood cultures negative and urine cultures + with 50-[address] + sputum/lactose fermenting bacteria/yeast/serratia Code(s): T68.XXXA - HYPOTHERMIA, INITIAL ENCOUNTER (11) Anemia Assessment/Plan: received 1 PRBC since admission Hgb 8.5 continue to monitor Code(s): D64.9 - ANEMIA, UNSPECIFIED (12) HLD (hyperlipidemia) Code(s): E78.5 - HYPERLIPIDEMIA, UNSPECIFIED (13) DVT prophylaxis Assessment/Plan: on heparin tid Code(s): Z29.9 - ENCOUNTER FOR PROPHYLACTIC MEASURES, UNSPECIFIED Visit type - Emergency Visit Emergency Visit: Yes ED Registration Date: 08/25/19 Care time: The patient presented to the Emergency Department on the above date and was hospitalized for further evaluation of their emergent condition. - New Patient This patient is new to me today: No - Critical Care Critical Care patient: Yes Total Critical Care Time (in minutes): 45 Critical Care Statement: The care of this patient involved high complexity decision making to prevent further life threatening deterioration of the patient 's condition and/or to evaluate & treat vital organ system(s) failure or risk of failure.
[2019-09-03] MEDS ORDERED: FUROSEMIDE 40 MG/4 ML INJECTABLE VIAL IVPUSH ONE ×2 (10:00→20:00)
[2019-09-03] MEDS: HYDROCORTISONE SOD SUCCINATE 100 MG/2 ML VIAL IVPUSH SCH ×2 (10:01→23:18)
--- NOTE | 2019-09-03 10:44 | PN ---
Progress Note (short form) - Note Progress Note: Informed son Isael of the need for permacath for the mom to continue dialysis. Explained the need for permacath and need to keep pt intubated for now. Brad is in agreement to let the mother get the permacath, but wants to speak with Dr Chin for consent prior to the procedure. Had his nurse Cate also speak with him. Pt per surgery will need a line via IR. No permacath for today. Pt was extubated. Informed Isael Isael Hill (son) phone: [phone]
--- NOTE | 2019-09-03 11:06 | PN ---
Teaching Attending Note Name of Resident: Sandoval Abernathy ATTENDING PHYSICIAN STATEMENT I saw and evaluated the patient. I reviewed the resident's note and discussed the case with the resident. I agree with the resident's findings and plan as documented. SUBJECTIVE: Pt seen and examined in the ICU. Remains intubated, sedated on precedex but attempting to communicate. Remains oliguric. OBJECTIVE: Vital Signs Period Temp Pulse Resp BP Sys/Amos Pulse Ox Last 24 Hr 98 F-99.4 F 49-75 9-31 122-183/62-85 99-100 Intake & Output 08/31/19 09/01/19 09/02/19 09/03/19 23:59 23:59 23:59 23:59 Intake Total 2465.5 1136.6 1931 696 Output Total 3975 700 3465 100 Balance -1509.5 436.6 -1534 596 Weight 119.4 kg 115.8 kg 117.254 kg 116.12 kg Gen: intubated, sedated Heart: RRR Lung: decreased breath sounds at the bases Abd: soft, nontender Ext: + edema CBC, BMP 09/03/19 05:38 09/03/19 05:38 Active Medications Acetaminophen (Ofirmev Injection -) 1,000 mg IVPB Q6H PRN PRN Reason: FEVER Last Admin: 09/01/19 08:50 Dose: 1,000 mg Amlodipine Besylate (Norvasc -) 10 mg PO DAILY [facility] Last Admin: 09/02/19 12:58 Dose: 10 mg Chlorhexidine Gluconate (Hibiclens For Decolonization -) 1 applic TP HS [facility] Last Admin: 09/02/19 21:46 Dose: 1 applic Fentanyl (Sublimaze Injection -) 50 mcg IVPUSH Q1H PRN PRN Reason: AGITATION Stop: 09/03/19 21:29 Last Admin: 09/03/19 03:36 Dose: 50 mcg Heparin Sodium (Porcine) (Heparin -) 5,000 unit SQ TID [facility] Last Admin: 09/03/19 06:16 Dose: 5,000 unit Hydrocortisone Sodium Succinate (Solu-Cortef -) 100 mg IVPUSH Q12H [facility] Last Admin: 09/03/19 10:01 Dose: 100 mg Famotidine/Sodium Chloride (Pepcid 20 Mg Premixed Ivpb -) 20 mg in 50 mls @ 100 mls/hr IVPB DAILY@0800 [facility] Last Admin: 09/03/19 08:48 Dose: 100 mls/hr Meropenem 500 mg/ Dextrose 100 mls @ 200 mls/hr IVPB 0400,1600 [facility] Last Admin: 09/03/19 03:07 Dose: 200 mls/hr Sodium Chloride (Normal Saline -) 250 mls @ 3,000 mls/hr IV PRN PRN PRN Reason: Hypotension during Dialysis Stop: 09/02/19 17:36 Dexmedetomidine HCl 200 mcg/ (Sodium Chloride) 50 mls @ 5.86 mls/hr IVPB TITR [facility] Last Admin: 09/03/19 10:00 Dose: 0.6 mcg/kg/hr, 17.58 mls/hr Insulin Aspart (Novolog Vial Sliding Scale -) 1 vial SQ ACHS [facility]; Protocol Last Admin: 09/03/19 06:17 Dose: 3 units Labetalol HCl (Normodyne -) 100 mg PO BID [facility] Last Admin: 09/03/19 09:00 Dose: 100 mg Levothyroxine Sodium (Synthroid Injection -) 100 mcg IVPUSH 0700 [facility] Last Admin: 09/03/19 06:18 Dose: 100 mcg Paroxetine HCl (Paxil -) 40 mg PO DAILY [facility] Last Admin: 09/03/19 09:00 Dose: 40 mg ASSESSMENT AND PLAN: Acute Hypercapneic Respiratory Failure Myxedema Coma UTI Acute Kidney Injury requiring HD Volume Overload Pleural Effusions COPD DM Anemia - HD per renal with ultrafiltration - monitor urine output, creatinine - will likely need permacath - continue antibiotics - f/u cultures - continue hydrocortisone, synthroid - inhaled bronchodilators - O2 to keep SpO2 >90% - daily cuff leak testing - daily sedation vacations to assess mental status - spontaneous breathing trials as tolerated - enteral feeds - DVT/GI prophylaxis - continue ICU monitoring critical care time spent in reviewing chart, evaluating patient and formulating plan 35 min
[2019-09-03] MEDS: amLODIPine BESYLATE 10 MG TABLET (FP) PO SCH (12:56)
--- NOTE | 2019-09-03 13:06 | PN ---
Physical Exam: SUBJECTIVE: Patient seen and examined OBJECTIVE: Vital Signs Period Temp Pulse Resp BP Sys/Amos Pulse Ox Last 24 Hr 98 F-99.4 F 54-75 9-31 137-183/62-85 98-100 GEN: intubated, responds to voice and squeezes hand on command. HEENT: NC/AT, PERRLA. No facial asymmetry. Moist mucous membranes. CV: S1/S2, RRR, no m/r/g LUNG: CTAB, no wheezes, crackles, rales, rhonchi. GI: soft, ndnt, +BS, no guarding, no rebound. EXTREMITIES: 2+ distal pulses. trace edema of lower extremities. No obvious defo rmities of all extremities. SKIN: warm, dry, normal turgor PSYCH: normal mood and affect NEURO: intubated/sedated Laboratory Results - last 24 hr 09/02/19 09/02/19 09/02/19 13:29 18:04 22:04 WBC RBC Hgb Hct MCV MCH MCHC RDW Plt Count MPV Absolute Neuts (auto) Neutrophils % Lymphocytes % Monocytes % Eosinophils % Basophils % Nucleated RBC % Sodium Potassium Chloride Carbon Dioxide Anion Gap BUN Creatinine Est GFR (CKD-EPI)AfAm Est GFR (CKD-EPI)NonAf POC Glucometer 116 181 182 Random Glucose Calcium Phosphorus Magnesium Total Bilirubin AST ALT Alkaline Phosphatase Total Protein Albumin 09/03/19 09/03/19 09/03/19 05:38 05:38 06:11 WBC 9.3 RBC 2.78 L Hgb 8.3 L Hct 24.8 L MCV 89.1 MCH 29.8 MCHC 33.4 RDW 16.6 H Plt Count 224 MPV 9.2 Absolute Neuts (auto) 7.8 Neutrophils % 84.0 H Lymphocytes % 13.5 Monocytes % 2.5 L Eosinophils % 0.0 Basophils % 0.0 Nucleated RBC % 0 Sodium 136 Potassium 3.9 Chloride 98 Carbon Dioxide 30 Anion Gap 8 BUN 47.2 H Creatinine 4.3 H Est GFR (CKD-EPI)AfAm 12.86 Est GFR (CKD-EPI)NonAf 11.10 POC Glucometer 238 Random Glucose 231 H Calcium 7.9 L Phosphorus 6.0 H Magnesium 2.2 Total Bilirubin 0.4 AST 34 ALT 48 Alkaline Phosphatase 605 H Total Protein 6.1 L Albumin 2.1 L Active Medications Generic Name Dose Route Start Last Admin Trade Name Freq PRN Reason Stop Dose Admin Acetaminophen 1,000 mg 09/01/19 08:30 09/01/19 08:50 Ofirmev Injection - IVPB 1,000 mg Q6H PRN Administration FEVER Amlodipine Besylate 10 mg 09/02/19 11:00 09/02/19 12:58 Norvasc - PO 10 mg DAILY ZOE Administration Chlorhexidine Gluconate 1 applic 08/27/19 22:00 09/02/19 21:46 Hibiclens For Decolonization - TP 1 applic HS OZE Administration Fentanyl 50 mcg 09/02/19 21:30 09/03/19 03:36 Sublimaze Injection - IVPUSH 09/03/19 21:29 50 mcg Q1H PRN Administration AGITATION Furosemide 80 mg 09/03/19 20:00 Lasix Injection - IVPUSH 09/03/19 20:01 ONCE ONE Heparin Sodium (Porcine) 5,000 unit 08/31/19 14:00 09/03/19 06:16 Heparin - SQ 5,000 unit TID ZOE Administration Hydrocortisone Sodium Succinate 100 mg 08/29/19 23:00 09/03/19 10:01 Solu-Cortef - IVPUSH 100 mg Q12H ZOE Administration Famotidine/Sodium Chloride 20 mg in 50 mls @ 100 mls/hr 08/26/19 08:00 09/03/19 08:48 Pepcid 20 Mg Premixed Ivpb - IVPB 100 mls/hr DAILY@0800 ZOE Administration Meropenem 500 mg/ Dextrose 100 mls @ 200 mls/hr 09/01/19 16:00 09/03/19 03:07 IVPB 200 mls/hr 0400,1600 ZOE Administration Sodium Chloride 250 mls @ 3,000 mls/hr 09/01/19 17:35 Normal Saline - IV 09/02/19 17:36 PRN PRN Hypotension during Dialysis Dexmedetomidine HCl 200 mcg/ 50 mls @ 5.86 mls/hr 09/02/19 15:15 09/03/19 10:00 Sodium Chloride IVPB 0.6 mcg/kg/hr TITR ZOE 17.58 mls/hr Administration 0.2 MCG/KG/HR Insulin Aspart 1 vial 08/26/19 07:00 09/03/19 06:17 Novolog Vial Sliding Scale - SQ 3 units ACHS ZOE Administration Protocol Labetalol HCl 100 mg 09/02/19 14:00 09/03/19 09:00 Normodyne - PO 100 mg BID ZOE Administration Levothyroxine Sodium 100 mcg 09/01/19 09:15 09/03/19 06:18 Synthroid Injection - IVPUSH 100 mcg 0700 ZOE Administration Paroxetine HCl 40 mg 09/01/19 10:00 09/03/19 09:00 Paxil - PO 40 mg DAILY ZOE Administration ASSESSMENT/PLAN: 54 y/o F thyroid Ca s/p thyroidectomy , IDDM, COPD, anemia, HTN, myxedema coma NEURO: intubated and sedated at time of evaluation CV: Pericardial effusion of <1cm on echo EF 65-75%. amlodipine and labatelol given last night for BP Control PULM: CXR showed no changes since prior study bilateral and pleural changes still the same with no improvements - duoneb and albuterol continue hydrocortisone RENAL: HD yesterday Pt per surgery will need a line via IR. No permacath for today. Pt was extubated. Informed Isael Isael Hill (son) phone: [phone] -central line has been in for 7 days. Renal recommends dialysis today to allow for time for permacath to be eventually placed due to the holidays. FENGI: speech and swallow evaluation ENDO levothyroxine TSH 2 days ago was 60.2 improved from admission value of 100 ID:meropenem DVT PPX: LINES/TUBES/DRAINS: central line RIJ Visit type - Emergency Visit Emergency Visit: Yes ED Registration Date: 08/25/19 Care time: The patient presented to the Emergency Department on the above date and was hospitalized for further evaluation of their emergent condition. - New Patient This patient is new to me today: No - Critical Care Critical Care patient: No - Discharge Referral [facility]erred [facility] No ATTENDING PHYSICIAN STATEMENT I saw and evaluated the patient. I reviewed the resident's note and discussed the case with the resident. I agree with the resident's findings and plan as documented. SUBJECTIVE: OBJECTIVE: ASSESSMENT AND PLAN:
--- NOTE | 2019-09-03 15:28 | CONSULT ---
Admitting History and Physical - Admission History of Present Illness: 54 year old female history of HTN, HLD, DM COPD, Anemia thyroid cancer. Patient came with ams and had CHF, renal failure , anemia . -Myxedema coma, SOB. AMS, acute respiratory failure. -acute metabolic encephalopathy, LUCY, fluid overload. -urine tox positive for MDMA Intubated, Extubated 2 hours ago BP low, receiving HD History Source: Medical Record Limitations to Obtaining History: Clinical Condition - Past Medical History Cardiovascular: Yes: HTN Pulmonary: Yes: COPD Heme/Onc: Yes: Cancer (Thyroid cancer s/p thyroidectomy) Psych: Yes: Addictions (ecstacy) Endocrine: Yes: Diabetes Mellitus, Hypothyroidism, Other (Thyroid ca) - Smoking History Smoking history: Unknown if ever smoked - Alcohol/Substance Use Hx Alcohol Use: (not known) History - Admission Reason For Visit: MYXEDEMA COMA;SHORTNESS OF BREATH;ACUTE REANL FAIL - Diagnostics X-ray: Report Reviewed - General Mental Status: Awake and Alert, Able to Follow Commands, Forgetful, Confused Attention: Mild Impairment Ability to Follow Directions: Fair Head/Neck Control: Needs Assist (still sleepy) - Hearing Hearing: Functional Speech Evaluation - Communication Primary Language: NEPALI Communication: Yes: Simple Responses Oral Expression Ability: Yes: Mild Impairment - Speech Production Intelligibility: Yes: Mildly Impaired - Speech Characteristics Voice Loudness: Normal Voice Pitch: Yes: Normal Voice Phonatory-based Quality: Yes: Normal (pretty strong, occasionally dysphonic) Speech Clarity: < 100% Nasal Resonance: Normal Articulation: Yes: Imprecise (Weaned off sedatives recently. Confused, sleepy) Rate of Speech: Too Slow - Language/Auditory Comprehension Follows: Yes: 1 Stage Simple Commands - Language/Verbal Expression Functional Communication Status: Yes: WNL - Swallow Evaluation/Bedside Assessment Current Nutritional Intake: NPO, Other (Received medication in applesauce by nursing) Oral Secretions: Yes: WFL Dentition: Yes: Adequate Facial Symmetry at Rest: Symmetrical Facial Symmetry on Retraction: Symmetrical Against Resistance Opening: Weak Against Resistance Closing: Weak Pucker Lips: Weak Smile: Weak Lingual Movement: Symmetric, Reduced Protrusion Lingual Speed of Movement: Reduced Lingual Movement Strgth Against Opposition: Reduced Recommendations - Speech Evaluation, Impression/Plan Impression: Extubated 2 hours ago. BP low, receiving HD. Mild inspiratory wheeze- likely edema s/p extubation x 7 days. PO trials deferred at this time - Dysphagia Impressions/Plan Dysphagia Impressions: Risk of Aspiration, Ongoing Evaluation *Silent aspiration: cannot be R/O at bedside - Recommendations Diet Consistency: NPO Medication Administration: Crushed with applesauce
[2019-09-03] MEDS ORDERED: SODIUM CHLORIDE 250 ML IV PRN (15:59)
--- NOTE | 2019-09-03 16:05 | PN ---
Progress Note, Physician History of Present Illness: Pt seen and examined at bedside. She is now extubated. - Current Medication List Current Medications: Active Medications Acetaminophen (Ofirmev Injection -) 1,000 mg IVPB Q6H PRN PRN Reason: FEVER Last Admin: 09/01/19 08:50 Dose: 1,000 mg Amlodipine Besylate (Norvasc -) 10 mg PO DAILY [facility] Last Admin: 09/03/19 12:56 Dose: 10 mg Chlorhexidine Gluconate (Hibiclens For Decolonization -) 1 applic TP HS [facility] Last Admin: 09/02/19 21:46 Dose: 1 applic Fentanyl (Sublimaze Injection -) 50 mcg IVPUSH Q1H PRN PRN Reason: AGITATION Stop: 09/03/19 21:29 Last Admin: 09/03/19 03:36 Dose: 50 mcg Heparin Sodium (Porcine) (Heparin -) 5,000 unit SQ TID [facility] Last Admin: 09/03/19 15:29 Dose: 5,000 unit Hydrocortisone Sodium Succinate (Solu-Cortef -) 100 mg IVPUSH Q12H [facility] Last Admin: 09/03/19 10:01 Dose: 100 mg Famotidine/Sodium Chloride (Pepcid 20 Mg Premixed Ivpb -) 20 mg in 50 mls @ 100 mls/hr IVPB DAILY@0800 [facility] Last Admin: 09/03/19 08:48 Dose: 100 mls/hr Meropenem 500 mg/ Dextrose 100 mls @ 200 mls/hr IVPB 0400,1600 [facility] Last Admin: 09/03/19 03:07 Dose: 200 mls/hr Sodium Chloride (Normal Saline -) 250 mls @ 3,000 mls/hr IV PRN PRN PRN Reason: Hypotension during Dialysis Stop: 09/02/19 17:36 Dexmedetomidine HCl 200 mcg/ (Sodium Chloride) 50 mls @ 5.86 mls/hr IVPB TITR [facility] Last Admin: 09/03/19 15:28 Dose: Not Given Insulin Aspart (Novolog Vial Sliding Scale -) 1 vial SQ ACHS [facility]; Protocol Last Admin: 09/03/19 13:00 Dose: 2 units Labetalol HCl (Normodyne -) 100 mg PO BID [facility] Last Admin: 09/03/19 09:00 Dose: 100 mg Levothyroxine Sodium (Synthroid Injection -) 100 mcg IVPUSH 0700 [facility] Last Admin: 09/03/19 06:18 Dose: 100 mcg Paroxetine HCl (Paxil -) 40 mg PO DAILY [facility] Last Admin: 09/03/19 09:00 Dose: 40 mg - Objective Vital Signs: Vital Signs Temperature 99.7 F H 09/03/19 14:30 Pulse Rate 70 09/03/19 15:40 Respiratory Rate 12 09/03/19 15:40 Blood Pressure 127/57 L 09/03/19 15:40 O2 Sat by Pulse Oximetry (%) 98 09/03/19 10:00 Constitutional: Yes: Calm Eyes: Yes: Conjunctiva Clear HENT: Yes: Atraumatic Neck: Yes: Supple Cardiovascular: Yes: S1, S2 Respiratory: Yes: On Venti-Mask, Rhonchi Gastrointestinal: Yes: Normal Bowel Sounds, Soft, Abdomen, Obese Genitourinary: Yes: WNL Musculoskeletal: Yes: Muscle Weakness Edema: Yes Edema: LUE: 1+, RUE: 1+, LLE: 1+, RLE: 1+ Integumentary: Yes: Tattoos Neurological: Yes: Confusion Labs: CBC, BMP 09/03/19 05:38 09/03/19 05:38 INR, PTT INR 0.92 (0.83-1.09) 09/02/19 06:00 - ....Imaging Chest X-ray: Report Reviewed Problem List - Problems (1) AMS (altered mental status) Code(s): R41.82 - ALTERED MENTAL STATUS, UNSPECIFIED (2) Acute metabolic encephalopathy Code(s): G93.41 - METABOLIC ENCEPHALOPATHY (3) Acute renal failure Code(s): N17.9 - ACUTE KIDNEY FAILURE, UNSPECIFIED (4) Diabetes Code(s): E11.9 - TYPE 2 DIABETES MELLITUS WITHOUT COMPLICATIONS (5) Hypercapnic respiratory failure Code(s): J96.92 - RESPIRATORY FAILURE, UNSPECIFIED WITH HYPERCAPNIA (6) Hypothermia Code(s): T68.XXXA - HYPOTHERMIA, INITIAL ENCOUNTER (7) Morbid obesity Code(s): E66.01 - MORBID (SEVERE) OBESITY DUE TO EXCESS CALORIES Assessment/Plan Current Medications Generic Name Dose Route Start Last Admin Trade Name Freq PRN Reason Stop Dose Admin Acetaminophen 1,000 mg 09/01/19 08:30 09/01/19 08:50 Ofirmev Injection - IVPB 1,000 mg Q6H PRN Administration FEVER Amlodipine Besylate 10 mg 09/02/19 11:00 09/03/19 12:56 Norvasc - PO 10 mg DAILY [facility] Administration Chlorhexidine Gluconate 1 applic 08/27/19 22:00 09/02/19 21:46 Hibiclens For Decolonization - TP 1 applic HS [facility] Administration Fentanyl 50 mcg 09/02/19 21:30 09/03/19 03:36 Sublimaze Injection - IVPUSH 09/03/19 21:29 50 mcg Q1H PRN Administration AGITATION Heparin Sodium (Porcine) 5,000 unit 08/31/19 14:00 09/03/19 15:29 Heparin - SQ 5,000 unit TID [facility] Administration Hydrocortisone Sodium Succinate 100 mg 08/29/19 23:00 09/03/19 10:01 Solu-Cortef - IVPUSH 100 mg Q12H [facility] Administration Famotidine/Sodium Chloride 20 mg in 50 mls @ 100 mls/hr 08/26/19 08:00 08:48 Pepcid 20 Mg Premixed Ivpb - IVPB 100 mls/hr DAILY@0800 [facility] Administration Meropenem 500 mg/ Dextrose 100 mls @ 200 mls/hr 09/01/19 16:00 09/03/19 03:07 IVPB 200 mls/hr 0400,1600 [facility] Administration Sodium Chloride 250 mls @ 3,000 mls/hr 09/01/19 17:35 Normal Saline - IV 09/02/19 17:36 PRN PRN Hypotension during Dialysis Dexmedetomidine HCl 200 mcg/ 50 mls @ 5.86 mls/hr 09/02/19 15:15 09/03/19 15: 28 Sodium Chloride IVPB Not Given TITR [facility] 0.2 MCG/KG/HR Sodium Chloride 250 mls @ 3,000 mls/hr 09/03/19 15:59 Normal Saline - IV 09/04/19 15:59 PRN PRN Hypotension during Dialysis Insulin Aspart 1 vial 08/26/19 07:00 09/03/19 13:00 Novolog Vial Sliding Scale - SQ 2 units ACHS [facility] Administration Protocol Labetalol HCl 100 mg 09/02/19 14:00 09/03/19 09:00 Normodyne - PO 100 mg BID [facility] Administration Levothyroxine Sodium 100 mcg 09/01/19 09:15 09/03/19 06:18 Synthroid Injection - IVPUSH 100 mcg 0700 [facility] Administration Paroxetine HCl 40 mg 09/01/19 10:00 09/03/19 09:00 Paxil - PO 40 mg DAILY [facility] Administration Impression 1. LUCY 2. fluid overload 3. acute respiratory failure 4. hypothyroidism with tsh of 100 5. 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 urine tox pos for mdma 7. mild rhabdo 8. hepatitis B Plan - pt now extubated - HD today for volume removal - follow repeat spep and light chains - cxr reviewed - serologies negative - oncology eval - HD today
--- NOTE | 2019-09-03 17:57 | PN ---
Progress Note, Physician History of Present Illness: patient extubated sad crying dialyzed - Current Medication List Current Medications: Active Medications Acetaminophen (Ofirmev Injection -) 1,000 mg IVPB Q6H PRN PRN Reason: FEVER Last Admin: 09/01/19 08:50 Dose: 1,000 mg Amlodipine Besylate (Norvasc -) 10 mg PO DAILY [facility] Last Admin: 09/03/19 12:56 Dose: 10 mg Chlorhexidine Gluconate (Hibiclens For Decolonization -) 1 applic TP HS [facility] Last Admin: 09/02/19 21:46 Dose: 1 applic Fentanyl (Sublimaze Injection -) 50 mcg IVPUSH Q1H PRN PRN Reason: AGITATION Stop: 09/03/19 21:29 Last Admin: 09/03/19 03:36 Dose: 50 mcg Heparin Sodium (Porcine) (Heparin -) 5,000 unit SQ TID [facility] Last Admin: 09/03/19 15:29 Dose: 5,000 unit Hydrocortisone Sodium Succinate (Solu-Cortef -) 100 mg IVPUSH Q12H [facility] Last Admin: 09/03/19 10:01 Dose: 100 mg Famotidine/Sodium Chloride (Pepcid 20 Mg Premixed Ivpb -) 20 mg in 50 mls @ 100 mls/hr IVPB DAILY@0800 [facility] Last Admin: 09/03/19 08:48 Dose: 100 mls/hr Meropenem 500 mg/ Dextrose 100 mls @ 200 mls/hr IVPB 0400,1600 [facility] Last Admin: 09/03/19 17:20 Dose: 200 mls/hr Sodium Chloride (Normal Saline -) 250 mls @ 3,000 mls/hr IV PRN PRN PRN Reason: Hypotension during Dialysis Stop: 09/02/19 17:36 Dexmedetomidine HCl 200 mcg/ (Sodium Chloride) 50 mls @ 5.86 mls/hr IVPB TITR [facility] Last Admin: 09/03/19 15:28 Dose: Not Given Sodium Chloride (Normal Saline -) 250 mls @ 3,000 mls/hr IV PRN PRN PRN Reason: Hypotension during Dialysis Stop: 09/04/19 15:59 Insulin Aspart (Novolog Vial Sliding Scale -) 1 vial SQ ACHS [facility]; Protocol Last Admin: 09/03/19 17:19 Dose: Not Given Labetalol HCl (Normodyne -) 100 mg PO BID [facility] Last Admin: 09/03/19 09:00 Dose: 100 mg Levothyroxine Sodium (Synthroid Injection -) 100 mcg IVPUSH 0700 [facility] Last Admin: 09/03/19 06:18 Dose: 100 mcg Paroxetine HCl (Paxil -) 40 mg PO DAILY [facility] Last Admin: 09/03/19 09:00 Dose: 40 mg - Objective Vital Signs: Vital Signs Temperature 99.7 F H 09/03/19 14:30 Pulse Rate 63 09/03/19 17:10 Respiratory Rate 14 09/03/19 17:10 Blood Pressure 125/72 09/03/19 17:10 O2 Sat by Pulse Oximetry (%) 98 09/03/19 10:00 Constitutional: Yes: Calm, Obese, Other (sad crying) Cardiovascular: Yes: S1, S2 Respiratory: Yes: Regular, CTA Bilaterally Gastrointestinal: Yes: Normal Bowel Sounds, Soft Musculoskeletal: Yes: WNL Extremities: Yes: WNL Neurological: Yes: Alert, Other Psychiatric: Yes: Other Labs: CBC, BMP 09/03/19 05:38 09/03/19 05:38 INR, PTT INR 0.92 (0.83-1.09) 09/02/19 06:00 Assessment/Plan Problem List - Problems (1) LUCY (acute kidney injury) Code(s): N17.9 - ACUTE KIDNEY FAILURE, UNSPECIFIED (2) AMS (altered mental status) Code(s): R41.82 - ALTERED MENTAL STATUS, UNSPECIFIED (3) Acute metabolic encephalopathy Code(s): G93.41 - METABOLIC ENCEPHALOPATHY (4) Acute respiratory failure Code(s): J96.00 - ACUTE RESPIRATORY FAILURE, UNSP W HYPOXIA OR HYPERCAPNIA (5) Anemia Code(s): D64.9 - ANEMIA, UNSPECIFIED (6) COPD (chronic obstructive pulmonary disease) Code(s): J44.9 - CHRONIC OBSTRUCTIVE PULMONARY DISEASE, UNSPECIFIED (7) Diabetes Code(s): E11.9 - TYPE 2 DIABETES MELLITUS WITHOUT COMPLICATIONS (8) HTN (hypertension) Code(s): I10 - ESSENTIAL (PRIMARY) HYPERTENSION (9) Hypercapnic respiratory failure Code(s): J96.92 - RESPIRATORY FAILURE, UNSPECIFIED WITH HYPERCAPNIA (10) Hypothermia Code(s): T68.XXXA - HYPOTHERMIA, INITIAL ENCOUNTER (11) Morbid obesity Code(s): E66.01 - MORBID (SEVERE) OBESITY DUE TO EXCESS CALORIES (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 - MYXEDEMA COMA (13) Thyroid cancer Code(s): C73 - MALIGNANT NEOPLASM OF THYROID GLAND Assessment/Plan Acute respiratory failure on MV/sedation Acute metabolic encephalopathy AMS Myxedema coma DM LUCY on CKD Obesity Hx of thyroid CA s/p thyroidectomy HTN HLD COPD Anemia vap plan sputum cx noted continue abx rest as per icu nutrition dialysis cc 40 min
[2019-09-03] MEDS: ACETAMINOPHEN 1000 MG/100 ML VIAL (NON FORMULARY) IVPB PRN (21:17)
[2019-09-03] MEDS: CHLORHEXIDINE GLUCONATE 4% CLEANSER FOR DECOLONIZATION TP SCH (21:19)
--- NOTE | 2019-09-03 23:25 | PN ---
Progress Note (short form) - Note Progress Note: 54 year old female history of HTN, HLD, DM COPD, Anemia thyroid cancer. Patient came with ams and had CHF, renal failure , anemia . Paitnet was intubated, she was hypothermic. She is on sedation . Paitent has ct head and there is mild dilation of ventricles. There is no evidence of seizure like activity , no high grade fever or neck stiffness. Patient has no head trauma Patinet is sedated and no response to verbal stimuli NEUROLOGICAL EXAMINATION sedated and intubated , neck is supple, opens eye to painful stimuli reponds to painful stimuli and opens eye to verbal command pupils reactive no face asymmetry rest of neuro exam is not possible ct head reviewed and mild ventricular dilatation and this could be due to intercurrent illness Assessment/Plan4 year old female history of HTN, HLD, DM COPD, Anemia thyroid cancer. Patient came with ams and had CHF, renal failure , anemia . Patient has Metabolic encephalopathy, there is no evidence of status epilepticus, meningitis or stroke Plan: will review mental status once she is off sedaiton. contiue current level of care will continue to follow re examine once she is off sedation. Thanking you so much Hill Hayden MD
[2019-09-04] MEDS: MEROPENEM 500 MG in DEXTROSE 5%-WATER 100 ML IVPB SCH ×2 (03:25→17:22)
[2019-09-04] MEDS ORDERED: LABETALOL HCL 5 MG/1 ML (100MG/20 ML VIAL) IVPUSH ONE (05:01)
[2019-09-04] MEDS: HEPARIN NA (PORCINE) 5,000 UNITS/ML 1ML VIAL SQ SCH ×3 (05:58→22:18)
[2019-09-04 06:02] LABS: BASO % 0.1 % (0-2.0); HEMATOCRIT 26.3 % (32.4-45.2); HEMOGLOBIN 8.9 GM/dL (10.7-15.3); LYMPH % 12.1 % (8-40); MCH 30.2 pg (25.7-33.7); MEAN CELL VOLUME 88.9 fl (80-96); MEAN PLT VOLUME 9.3 fl (7.5-11.1); MONO % 1.5 % (3.8-10.2); NEUT % 86.3 % (42.8-82.8); PLATELET COUNT 235 K/MM3 (134-434); RBC 2.96 M/mm3 (3.60-5.2); RDW 16.4 % (11.6-15.6); WHITE BLOOD COUNT 9.6 K/mm3 (4.0-10.0)
[2019-09-04] MEDS: LEVOTHYROXINE SODIUM 100 MCG VIAL IVPUSH SCH (06:04)
[2019-09-04 06:18] LABS: ALBUMIN 2.2 g/dl (3.4-5.0); BILIRUBIN,TOTAL 0.5 mg/dL (0.2-1); CREATININE 3.6 mg/dL (0.55-1.3); MAGNESIUM 1.9 mg/dL (1.8-2.4); PHOSPHOROUS 4.2 mg/dL (2.5-4.9); POTASSIUM 3.7 mmol/L (3.5-5.1); TOT PROT 6.3 g/dl (6.4-8.2)
[2019-09-04] MEDS: INSULIN SLIDING SCALE (NOVOLOG) 1 VIAL SQ SCH ×4 (07:00→22:18)
[2019-09-04] MEDS: FAMOTIDINE 20 MG/50 ML IVPB 20 MG/50 ML MG IVPB SCH (08:34)
--- NOTE | 2019-09-04 09:01 | PN ---
Progress Note, Physician Chief Complaint: Patient still confused, transferred to regular floor eating lunch. History of Present Illness: 60-year-old female history of hypertension dyslipidemia, type 2 diabetes mellitus COPD, anemia thyroid cancer noncompliant hypothyroidism diastolic heart failure admitted with hypothermia, altered mental status, respiratory failure and LUCY work-up shows myxedema coma patient was intubated now extubated currently getting treated for severe hypothyroidism and ventilator assisted pneumonia - Current Medication List Current Medications: Active Medications Acetaminophen (Ofirmev Injection -) 1,000 mg IVPB Q6H PRN PRN Reason: FEVER Last Admin: 09/03/19 21:17 Dose: 1,000 mg Amlodipine Besylate (Norvasc -) 10 mg PO DAILY [facility] Last Admin: 09/03/19 12:56 Dose: 10 mg Chlorhexidine Gluconate (Hibiclens For Decolonization -) 1 applic TP HS [facility] Last Admin: 09/03/19 21:19 Dose: 1 applic Heparin Sodium (Porcine) (Heparin -) 5,000 unit SQ TID [facility] Last Admin: 09/04/19 05:58 Dose: 5,000 unit Hydrocortisone Sodium Succinate (Solu-Cortef -) 100 mg IVPUSH Q12H [facility] Last Admin: 09/03/19 23:18 Dose: 100 mg Famotidine/Sodium Chloride (Pepcid 20 Mg Premixed Ivpb -) 20 mg in 50 mls @ 100 mls/hr IVPB DAILY@0800 [facility] Last Admin: 09/04/19 08:34 Dose: 100 mls/hr Meropenem 500 mg/ Dextrose 100 mls @ 200 mls/hr IVPB 0400,1600 [facility] Last Admin: 09/04/19 03:25 Dose: 200 mls/hr Sodium Chloride (Normal Saline -) 250 mls @ 3,000 mls/hr IV PRN PRN PRN Reason: Hypotension during Dialysis Stop: 09/02/19 17:36 Dexmedetomidine HCl 200 mcg/ (Sodium Chloride) 50 mls @ 5.86 mls/hr IVPB TITR [facility] Last Admin: 09/03/19 15:28 Dose: Not Given Sodium Chloride (Normal Saline -) 250 mls @ 3,000 mls/hr IV PRN PRN PRN Reason: Hypotension during Dialysis Stop: 09/04/19 15:59 Insulin Aspart (Novolog Vial Sliding Scale -) 1 vial SQ ACHS [facility]; Protocol Last Admin: 09/04/19 07:00 Dose: 2 units Labetalol HCl (Normodyne -) 100 mg PO BID [facility] Last Admin: 09/03/19 21:17 Dose: 100 mg Levothyroxine Sodium (Synthroid Injection -) 100 mcg IVPUSH 0700 [facility] Last Admin: 09/04/19 06:04 Dose: 100 mcg Paroxetine HCl (Paxil -) 40 mg PO DAILY [facility] Last Admin: 09/03/19 09:00 Dose: 40 mg - Objective Vital Signs: Vital Signs Temperature 98.6 F 09/04/19 06:00 Pulse Rate 70 09/04/19 06:00 Respiratory Rate 17 09/04/19 06:00 Blood Pressure 166/80 09/04/19 06:00 O2 Sat by Pulse Oximetry (%) 99 09/03/19 21:00 General: Elderly woman, confused, alert comfortable, not in distress HEENT; hypothyroid facie, mucous membranes moist, no anemia, no jaundice, PERRLA, no nystagmus Neck: No JVD, supple, no bruit, thyroid palpably normal, normal carotid pulsations. Chest: Nontender, clear to auscultation bilaterall, okay basal rales. CVS: S1-S2 regular/ no murmur/gallop/rub Abdomen: Nondistended, soft, bowel sounds present. Extremities: Trace edema., No cough tenderness, pulses present [employer]: Alert but confused, no gross motor sensory deficit Labs: CBC, BMP 09/04/19 05:15 09/04/19 05:15 INR, PTT INR 0.92 (0.83-1.09) 09/02/19 06:00 Problem List - Problems (1) Acute metabolic encephalopathy Assessment/Plan: Due to myxedema coma, now improving, serial neuro examination observe closely for change in mental status. Problems reviewed: Yes Code(s): G93.41 - METABOLIC ENCEPHALOPATHY (2) COPD (chronic obstructive pulmonary disease) Assessment/Plan: Stable continue DuoNeb and dexamethasone follow-up pulmonary recommendations Problems reviewed: Yes Code(s): J44.9 - CHRONIC OBSTRUCTIVE PULMONARY DISEASE, UNSPECIFIED (3) Acute respiratory failure Assessment/Plan: Due to severe hypothyroidism, myxedema, initially intubated now extubated saturating well on nasal cannula. Problems reviewed: Yes Code(s): J96.00 - ACUTE RESPIRATORY FAILURE, UNSP W HYPOXIA OR HYPERCAPNIA (4) VAP (ventilator-associated pneumonia) Assessment/Plan: Continue current antibiotic as per ID recommendations patient is on meropenem Problems reviewed: Yes Code(s): J95.851 - VENTILATOR ASSOCIATED PNEUMONIA (5) HTN (hypertension) Assessment/Plan: Well-controlled continue current regimen Problems reviewed: Yes Code(s): I10 - ESSENTIAL (PRIMARY) HYPERTENSION (6) Morbid obesity Assessment/Plan: Due to severe hypothyroidism evaluation as an outpatient Problems reviewed: Yes Code(s): E66.01 - MORBID (SEVERE) OBESITY DUE TO EXCESS CALORIES (7) Diabetes Assessment/Plan: Optimize glycemic control, continue current management Problems reviewed: Yes Code(s): E11.9 - TYPE 2 DIABETES MELLITUS WITHOUT COMPLICATIONS (8) Myxedema coma Assessment/Plan: Due to severe hypothyroidism status post thyroidectomy on levothyroxine follow- up TSH level tomorrow. Problems reviewed: Yes Code(s): E03.5 - MYXEDEMA COMA
[2019-09-04] MEDS: amLODIPine BESYLATE 10 MG TABLET (FP) PO SCH (09:05)
[2019-09-04] MEDS: LABETALOL HCL 100 MG TABLET (FP) PO SCH ×3 (09:05→22:18)
[2019-09-04] MEDS: PARoxetine HCL 20 MG TABLET PO SCH (09:05)
[2019-09-04] MEDS ORDERED: LABETALOL HCL 100 MG TABLET (FP) PO SCH (10:00)
--- NOTE | 2019-09-04 10:05 | PN ---
Teaching Attending Note Name of Resident: Sandoval Abernathy ATTENDING PHYSICIAN STATEMENT I saw and evaluated the patient. I reviewed the resident's note and discussed the case with the resident. I agree with the resident's findings and plan as documented. SUBJECTIVE: Pt seen and examined in the ICU. Extubated yesterday without incident. Oriented but asking about her 4 children. Wants to eat. OBJECTIVE: Vital Signs Period Temp Pulse Resp BP Sys/Amos Pulse Ox Last 24 Hr 98.6 F-99.7 F 60-74 08-05 112-192/53-82 98-99 Intake & Output 09/01/19 09/02/19 09/03/19 09/04/19 23:59 23:59 23:59 23:59 Intake Total 1136.6 1931 1468 Output Total 700 3465 3450 200 Balance 436.6 -1534 -1981 -200 Weight 115.8 kg 117.254 kg 116.12 kg 115.621 kg Gen: NAD at rest but tearful Heart: RRR Lung: decreased breath sounds at the bases Abd: soft, nontender Ext: + edema improving CBC, BMP 09/04/19 05:15 09/04/19 05:15 Active Medications Acetaminophen (Ofirmev Injection -) 1,000 mg IVPB Q6H PRN PRN Reason: FEVER Last Admin: 09/03/19 21:17 Dose: 1,000 mg Amlodipine Besylate (Norvasc -) 10 mg PO DAILY [facility] Last Admin: 09/04/19 09:05 Dose: 10 mg Chlorhexidine Gluconate (Hibiclens For Decolonization -) 1 applic TP HS [facility] Last Admin: 09/03/19 21:19 Dose: 1 applic Heparin Sodium (Porcine) (Heparin -) 5,000 unit SQ TID [facility] Last Admin: 09/04/19 05:58 Dose: 5,000 unit Hydrocortisone Sodium Succinate (Solu-Cortef -) 100 mg IVPUSH Q12H [facility] Last Admin: 09/03/19 23:18 Dose: 100 mg Famotidine/Sodium Chloride (Pepcid 20 Mg Premixed Ivpb -) 20 mg in 50 mls @ 100 mls/hr IVPB DAILY@0800 [facility] Last Admin: 09/04/19 08:34 Dose: 100 mls/hr Meropenem 500 mg/ Dextrose 100 mls @ 200 mls/hr IVPB 0400,1600 [facility] Last Admin: 09/04/19 03:25 Dose: 200 mls/hr Sodium Chloride (Normal Saline -) 250 mls @ 3,000 mls/hr IV PRN PRN PRN Reason: Hypotension during Dialysis Stop: 09/02/19 17:36 Dexmedetomidine HCl 200 mcg/ (Sodium Chloride) 50 mls @ 5.86 mls/hr IVPB TITR [facility] Last Admin: 09/03/19 15:28 Dose: Not Given Sodium Chloride (Normal Saline -) 250 mls @ 3,000 mls/hr IV PRN PRN PRN Reason: Hypotension during Dialysis Stop: 09/04/19 15:59 Insulin Aspart (Novolog Vial Sliding Scale -) 1 vial SQ ACHS [facility]; Protocol Last Admin: 09/04/19 07:00 Dose: 2 units Labetalol HCl (Normodyne -) 200 mg PO TID [facility] Levothyroxine Sodium (Synthroid Injection -) 100 mcg IVPUSH 0700 [facility] Last Admin: 09/04/19 06:04 Dose: 100 mcg Paroxetine HCl (Paxil -) 40 mg PO DAILY [facility] Last Admin: 09/04/19 09:05 Dose: 40 mg ASSESSMENT AND PLAN: Acute Hypercapneic Respiratory Failure Myxedema Coma UTI Acute Kidney Injury requiring HD Volume Overload Pleural Effusions COPD DM Anemia - HD per renal with ultrafiltration - monitor urine output, creatinine - will likely need permacath - continue antibiotics - f/u cultures - continue hydrocortisone, synthroid - inhaled bronchodilators - O2 to keep SpO2 >90% - PO as tolerated - DVT/GI prophylaxis - can monitor on floor
[2019-09-04] MEDS: HYDROCORTISONE SOD SUCCINATE 100 MG/2 ML VIAL IVPUSH SCH ×2 (10:44→22:18)
--- NOTE | 2019-09-04 11:22 | PN ---
Physical Exam: SUBJECTIVE: Patient seen and examined no acute complaints this a.m occasional bouts of distress and crying denies any pain at this time. OBJECTIVE: Vital Signs Period Temp Pulse Resp BP Sys/Amos Pulse Ox Last 24 Hr 98.6 F-99.7 F 60-74 11-25 112-192/53-82 98-99 GEN: extubated alert and oriented. crying for her babies . HEENT: NC/AT, PERRLA. No facial asymmetry. Moist mucous membranes. CV: S1/S2, RRR, no m/r/g LUNG: decreased breath sounds lung bases. no wheezing. GI: soft, ndnt, +BS, no guarding, no rebound. EXTREMITIES: 2+ distal pulses. trace edema of lower extremities. No obvious deformities of all extremities. SKIN: warm, dry, normal turgor PSYCH: occasional crying asking for babies NEURO: PERRLA, AO to person place and time. Laboratory Results - last 24 hr 09/03/19 09/03/19 09/03/19 13:01 16:54 19:50 WBC RBC Hgb Hct MCV MCH MCHC RDW Plt Count MPV Absolute Neuts (auto) Neutrophils % Lymphocytes % Monocytes % Eosinophils % Basophils % Nucleated RBC % Sodium Potassium Chloride Carbon Dioxide Anion Gap BUN Creatinine Est GFR (CKD-EPI)AfAm Est GFR (CKD-EPI)NonAf POC Glucometer 170 120 Random Glucose Calcium Phosphorus Magnesium Total Bilirubin AST ALT Alkaline Phosphatase Total Protein Albumin Stool Occult Blood Negative 09/03/19 09/04/19 09/04/19 22:01 05:15 05:15 WBC 9.6 RBC 2.96 L Hgb 8.9 L Hct 26.3 L MCV 88.9 MCH 30.2 MCHC 34.0 RDW 16.4 H Plt Count 235 MPV 9.3 Absolute Neuts (auto) 8.3 H Neutrophils % 86.3 H Lymphocytes % 12.1 Monocytes % 1.5 L Eosinophils % 0.0 Basophils % 0.1 D Nucleated RBC % 0 Sodium 139 Potassium 3.7 Chloride 100 Carbon Dioxide 30 Anion Gap 8 BUN 37.0 H Creatinine 3.6 H Est GFR (CKD-EPI)AfAm 15.94 Est GFR (CKD-EPI)NonAf 13.76 POC Glucometer 143 Random Glucose 192 H Calcium 8.0 L Phosphorus 4.2 Magnesium 1.9 Total Bilirubin 0.5 AST 42 H ALT 49 Alkaline Phosphatase 606 H Total Protein 6.3 L Albumin 2.2 L Stool Occult Blood 09/04/19 10:47 WBC RBC Hgb Hct MCV MCH MCHC RDW Plt Count MPV Absolute Neuts (auto) Neutrophils % Lymphocytes % Monocytes % Eosinophils % Basophils % Nucleated RBC % Sodium Potassium Chloride Carbon Dioxide Anion Gap BUN Creatinine Est GFR (CKD-EPI)AfAm Est GFR (CKD-EPI)NonAf POC Glucometer 139 Random Glucose Calcium Phosphorus Magnesium Total Bilirubin AST ALT Alkaline Phosphatase Total Protein Albumin Stool Occult Blood Active Medications Generic Name Dose Route Start Last Admin Trade Name Freq PRN Reason Stop Dose Admin Acetaminophen 1,000 mg 09/01/19 08:30 09/03/19 21:17 Ofirmev Injection - IVPB 1,000 mg Q6H PRN Administration FEVER Amlodipine Besylate 10 mg 09/02/19 11:00 09/04/19 09:05 Norvasc - PO 10 mg DAILY ZOE Administration Chlorhexidine Gluconate 1 applic 08/27/19 22:00 09/03/19 21:19 Hibiclens For Decolonization - TP 1 applic HS ZOE Administration Heparin Sodium (Porcine) 5,000 unit 08/31/19 14:00 09/04/19 05:58 Heparin - SQ 5,000 unit TID ZOE Administration Hydrocortisone Sodium Succinate 100 mg 08/29/19 23:00 09/04/19 10:44 Solu-Cortef - IVPUSH 100 mg Q12H ZOE Administration Famotidine/Sodium Chloride 20 mg in 50 mls @ 100 mls/hr 08/26/19 08:00 09/04/19 08:34 Pepcid 20 Mg Premixed Ivpb - IVPB 100 mls/hr DAILY@0800 ZOE Administration Meropenem 500 mg/ Dextrose 100 mls @ 200 mls/hr 09/01/19 16:00 09/04/19 03:25 IVPB 200 mls/hr 0400,1600 ZOE Administration Sodium Chloride 250 mls @ 3,000 mls/hr 09/01/19 17:35 Normal Saline - IV 09/02/19 17:36 PRN PRN Hypotension during Dialysis Dexmedetomidine HCl 200 mcg/ 50 mls @ 5.86 mls/hr 09/02/19 15:15 09/03/19 15:28 Sodium Chloride IVPB Not Given TITR ZOE 0.2 MCG/KG/HR Sodium Chloride 250 mls @ 3,000 mls/hr 09/03/19 15:59 Normal Saline - IV 09/04/19 15:59 PRN PRN Hypotension during Dialysis Insulin Aspart 1 vial 08/26/19 07:00 09/04/19 10:49 Novolog Vial Sliding Scale - SQ Not Given ACHS [facility]OE Protocol Labetalol HCl 200 mg 09/04/19 10:00 09/04/19 10:44 Normodyne - PO 200 mg TID ZOE Administration Levothyroxine Sodium 100 mcg 09/01/19 09:15 09/04/19 06:04 Synthroid Injection - IVPUSH 100 mcg 0700 ZOE Administration Paroxetine HCl 40 mg 09/01/19 10:00 09/04/19 09:05 Paxil - PO 40 mg DAILY ZOE Administration ASSESSMENT/PLAN: 54 y/o F thyroid Ca s/p thyroidectomy , IDDM, COPD, anemia, HTN, myxedema coma NEURO: alert and oriented to person, place and time occasional agitation and crying, asking for her "babies" continue monitoring CV: Pericardial effusion of <1cm on echo EF 65-75%. labetalol increased to 200mg Tid for optimal BP control PULM: CXR slight diminishing of bilateral pulmonary and pleural changes - duoneb and albuterol continue hydrocortisone RENAL: HD yesterday Pt per surgery will need a line via IR. No permacath for today. Pt was extubated. Informed Isael Isael Hill (son) phone: [phone] -central line taken out this morning. FENGI: speech and swallow evaluation evaluated at bedside was able to take sips of water without choking ENDO levothyroxine TSH 3 days ago was 60.2 improved from admission value of 100 ID:meropenem DVT PPX: LINES/TUBES/DRAINS: none Visit type - Emergency Visit Emergency Visit: Yes ED Registration Date: 08/25/19 Care time: The patient presented to the Emergency Department on the above date and was hospitalized for further evaluation of their emergent condition. - New Patient This patient is new to me today: No - Critical Care Critical Care patient: No - Discharge Referral Referred to [facility] No ATTENDING PHYSICIAN STATEMENT I saw and evaluated the patient. I reviewed the resident's note and discussed the case with the resident. I agree with the resident's findings and plan as documented. SUBJECTIVE: OBJECTIVE: ASSESSMENT AND PLAN:
[2019-09-04] MEDS ORDERED: SODIUM CHLORIDE 250 ML IV PRN ×2 (11:57)
[2019-09-04] MEDS ORDERED: ACETAMINOPHEN 1000 MG/100 ML VIAL (NON FORMULARY) IVPB PRN (11:57)
[2019-09-04] MEDS ORDERED: DEXMEDETOMIDINE HCL 200 MCG in SODIUM CHLORIDE 48 ML IVPB SCH (11:57)
--- NOTE | 2019-09-04 14:27 | PN ---
Progress Note, Physician History of Present Illness: Pt seen and examined at bedside. She is more awake today but still confused. Her son is at bedside and care was discussed with him. SHe does have history of kidney disease but they are not sure what her kidney function was and they do not know who the enforcement safety officer was. - Current Medication List Current Medications: Active Medications Acetaminophen (Ofirmev Injection -) 1,000 mg IVPB Q6H PRN PRN Reason: FEVER Amlodipine Besylate (Norvasc -) 10 mg PO DAILY [facility] Heparin Sodium (Porcine) (Heparin -) 5,000 unit SQ TID [facility] Last Admin: 09/04/19 14:04 Dose: 5,000 unit Hydrocortisone Sodium Succinate (Solu-Cortef -) 100 mg IVPUSH BID [facility] Sodium Chloride (Normal Saline -) 250 mls @ 3,000 mls/hr IV PRN PRN PRN Reason: Hypotension during Dialysis Stop: 09/04/19 15:59 Sodium Chloride (Normal Saline -) 250 mls @ 3,000 mls/hr IV PRN PRN PRN Reason: Hypotension during Dialysis Meropenem 500 mg/ Dextrose 100 mls @ 200 mls/hr IVPB 0400,1600 [facility] Famotidine/Sodium Chloride (Pepcid 20 Mg Premixed Ivpb -) 20 mg in 50 mls @ 100 mls/hr IVPB Q48H [facility] Insulin Aspart (Novolog Vial Sliding Scale -) 1 vial SQ ACHS [facility]; Protocol Labetalol HCl (Normodyne -) 200 mg PO TID [facility] Last Admin: 09/04/19 14:04 Dose: 200 mg Levothyroxine Sodium (Synthroid Injection -) 100 mcg IVPUSH 0700 [facility] Paroxetine HCl (Paxil -) 40 mg PO DAILY [facility] - Objective Vital Signs: Vital Signs Temperature 98.4 F 09/04/19 10:00 Pulse Rate 72 09/04/19 10:00 Respiratory Rate 17 09/04/19 10:00 Blood Pressure 150/84 09/04/19 10:00 O2 Sat by Pulse Oximetry (%) 99 09/04/19 09:00 Constitutional: Yes: Calm Eyes: Yes: Conjunctiva Clear HENT: Yes: Atraumatic Cardiovascular: Yes: S1, S2 Respiratory: Yes: CTA Bilaterally Gastrointestinal: Yes: Soft, Abdomen, Obese Genitourinary: Yes: Mahoney Present, Incontinence, Oliguria Musculoskeletal: Yes: Muscle Weakness Edema: Yes Edema: LUE: Trace, RUE: Trace, LLE: Trace, RLE: Trace Neurological: Yes: Confusion Labs: CBC, BMP 09/04/19 05:15 09/04/19 05:15 INR, PTT INR 0.92 (0.83-1.09) 09/02/19 06:00 Problem List - Problems (1) AMS (altered mental status) Code(s): R41.82 - ALTERED MENTAL STATUS, UNSPECIFIED (2) Acute metabolic encephalopathy Code(s): G93.41 - METABOLIC ENCEPHALOPATHY (3) Acute renal failure Code(s): N17.9 - ACUTE KIDNEY FAILURE, UNSPECIFIED (4) Diabetes Code(s): E11.9 - TYPE 2 DIABETES MELLITUS WITHOUT COMPLICATIONS (5) Hypercapnic respiratory failure Code(s): J96.92 - RESPIRATORY FAILURE, UNSPECIFIED WITH HYPERCAPNIA (6) Hypothermia Code(s): T68.XXXA - HYPOTHERMIA, INITIAL ENCOUNTER (7) Morbid obesity Code(s): E66.01 - MORBID (SEVERE) OBESITY DUE TO EXCESS CALORIES Assessment/Plan Current Medications Generic Name Dose Route Start Last Admin Trade Name Freq PRN Reason Stop Dose Admin Acetaminophen 1,000 mg 09/04/19 11:57 Ofirmev Injection - IVPB Q6H PRN FEVER Amlodipine Besylate 10 mg 09/05/19 10:00 Norvasc - PO DAILY [facility] Heparin Sodium (Porcine) 5,000 unit 09/04/19 14:00 09/04/19 14:04 Heparin - SQ 5,000 unit TID ZOE Administration Hydrocortisone Sodium Succinate 100 mg 09/04/19 23:00 Solu-Cortef - IVPUSH BID [facility] Sodium Chloride 250 mls @ 3,000 mls/hr 09/04/19 11:57 Normal Saline - IV 09/04/19 15:59 PRN PRN Hypotension during Dialysis Sodium Chloride 250 mls @ 3,000 mls/hr 09/04/19 11:57 Normal Saline - IV PRN PRN Hypotension during Dialysis Meropenem 500 mg/ Dextrose 100 mls @ 200 mls/hr 09/04/19 16:00 IVPB 0400,1600 [facility] Famotidine/Sodium Chloride 20 mg in 50 mls @ 100 mls/hr 09/04/19 14:30 Pepcid 20 Mg Premixed Ivpb - IVPB Q48H [facility] Insulin Aspart 1 vial 09/04/19 16:30 Novolog Vial Sliding Scale - SQ ACHS [facility] Protocol Labetalol HCl 200 mg 09/04/19 14:00 09/04/19 14:04 Normodyne - PO 200 mg TID [facility]OE Administration Levothyroxine Sodium 100 mcg 09/05/19 07:00 Synthroid Injection - IVPUSH 0700 [facility] Paroxetine HCl 40 mg 09/05/19 10:00 Paxil - PO DAILY [facility] Impression 1. LUCY 2. fluid overload 3. acute respiratory failure 4. hypothyroidism with tsh of 100 5. 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 urine tox pos for mdma 7. mild rhabdo 8. hepatitis B Plan - repeat labs in a - will need access, vascular follow up - follow repeat spep and light chains - serologies negative - jcarlos craven - will evaluate for HD daily
[2019-09-04] MEDS ORDERED: FAMOTIDINE 20 MG/50 ML IVPB 20 MG/50 ML MG IVPB SCH (14:30)
[2019-09-04] MEDS ORDERED: MEROPENEM 500 MG VIAL (RESTRICTED TO ID) IVPB ONE (16:29)
[2019-09-04] MEDS ORDERED: DEXTROSE 5%-WATER 100 ML IVPB ONE (16:29)
[2019-09-04] MEDS ORDERED: CHLORHEXIDINE GLUCONATE 4% CLEANSER FOR DECOLONIZATION TP SCH (22:00)
[2019-09-05] MEDS ORDERED: PT OWN MED DRAWER 7, Y5N ONE ×2 (01:14→05:16)
[2019-09-05] MEDS ORDERED: MEROPENEM 500 MG VIAL (RESTRICTED TO ID) IVPB ONE ×2 (02:28→16:55)
[2019-09-05] MEDS ORDERED: DEXTROSE 5%-WATER 100 ML IVPB ONE ×2 (02:28→16:55)
[2019-09-05] MEDS: MEROPENEM 500 MG in DEXTROSE 5%-WATER 100 ML IVPB SCH ×2 (04:18→16:57)
[2019-09-05] MEDS: HEPARIN NA (PORCINE) 5,000 UNITS/ML 1ML VIAL SQ SCH ×3 (05:55→21:06)
[2019-09-05] MEDS: LABETALOL HCL 100 MG TABLET (FP) PO SCH ×3 (05:55→21:05)
[2019-09-05] MEDS: INSULIN SLIDING SCALE (NOVOLOG) 1 VIAL SQ SCH ×4 (06:08→21:10)
[2019-09-05] MEDS ORDERED: LEVOTHYROXINE SODIUM 100 MCG VIAL IVPUSH SCH (07:00)
[2019-09-05] MEDS ORDERED: FAMOTIDINE 20 MG/50 ML IVPB 20 MG/50 ML MG IVPB SCH (08:00)
[2019-09-05 08:10] LABS: HEMATOCRIT 26.7 % (32.4-45.2); HEMOGLOBIN 8.8 GM/dL (10.7-15.3); LYMPH % 22.2 % (8-40); MCH 29.8 pg (25.7-33.7); MEAN CELL VOLUME 90.2 fl (80-96); MEAN PLT VOLUME 9.8 fl (7.5-11.1); MONO % 2.4 % (3.8-10.2); NEUT % 75.4 % (42.8-82.8); PLATELET COUNT 263 K/MM3 (134-434); RBC 2.96 M/mm3 (3.60-5.2); RDW 16.5 % (11.6-15.6); WHITE BLOOD COUNT 7.9 K/mm3 (4.0-10.0)
[2019-09-05] MEDS ORDERED: LIDOCAINE HCL 1%, 10 MG/ML (20ML VIAL) ONE (08:41)
--- NOTE | 2019-09-05 08:45 | PN ---
Physical Exam: SUBJECTIVE: Patient seen and examined at the bedside. arousable and answering some questions appropriately, tells me her name, and that she is at [facility] states that her throat is sore. per RN, some episodes of confusion overnight. OBJECTIVE: patient for a permacath today hmg 8.8/26.7 temp 99.4, tmax 99.7 chem panel pending vitals stable, slightly hypertensive tachypnea on 2 liters Patient is a 54 year old morbid obese female with a significant past medical history of hypertension, hyperlipidemia, diabetes, COPD, anemia, thyroid cancer 6 years ago (no prior admission to [facility]). Patient brought into the ED 08/25/19 for altered mental status, acute shortness of breath, metabolic acidosis. She was found to have an elevated TSH, low t4 and hypothermic (96f- 97-on mariana hugger). Urine was + for ecstasy. on admission had renal failure with a creat of 7.7, bun of 65,mag 1.6, elevated ast/alt. she was admitted to the ICU and since 09/04, is being monitored on med surg unit. Vital Signs Period Temp Pulse Resp BP Sys/Amos Pulse Ox Last 24 Hr 98.4 F-99.4 F 64-78 17-18 130-161/70-95 95-99 GENERAL: sleepy but arousable, can answer questions appropriately HEAD: Normal with no signs of trauma. EYES: PERRL, extraocular movements intact, sclera anicteric, conjunctiva clear. No ptosis. ENT: Ears normal, nares patent, oropharynx clear without exudates, dry mucous membranes. NECK: Trachea midline, full range of motion, supple. LUNGS: diminished anteriorly on 2 liters of nasal cannula. HEART: Regular rate and rhythm ABDOMEN: Soft, nontender, nondistended, normoactive bowel sounds EXTREMITIES: trace edema bilaterally NEUROLOGICAL: speech is normal, can answer some questions but remains lethargic Laboratory Results - last 24 hr 09/04/19 09/04/19 09/04/19 10:47 16:01 21:04 WBC RBC Hgb Hct MCV MCH MCHC RDW Plt Count MPV Absolute Neuts (auto) Neutrophils % Lymphocytes % Monocytes % Eosinophils % Basophils % Nucleated RBC % POC Glucometer 139 183 179 09/05/19 09/05/19 05:26 06:35 WBC 7.9 RBC 2.96 L Hgb 8.8 L Hct 26.7 L MCV 90.2 MCH 29.8 MCHC 33.0 RDW 16.5 H Plt Count 263 MPV 9.8 Absolute Neuts (auto) 5.9 Neutrophils % 75.4 Lymphocytes % 22.2 D Monocytes % 2.4 L Eosinophils % 0.0 Basophils % 0.0 Nucleated RBC % 0 POC Glucometer 239 Active Medications Generic Name Dose Route Start Last Admin Trade Name Juan Daniel PRN Reason Stop Dose Admin Acetaminophen 1,000 mg 09/04/19 11:57 Ofirmev Injection - IVPB Q6H PRN FEVER Amlodipine Besylate 10 mg 09/05/19 10:00 Norvasc - PO DAILY [facility] Heparin Sodium (Porcine) 5,000 unit 09/04/19 14:00 09/05/19 05:55 Heparin - SQ 5,000 unit TID ZOE Administration Hydrocortisone Sodium Succinate 100 mg 09/04/19 23:00 09/04/19 22:18 Solu-Cortef - IVPUSH 100 mg BID ZOE Administration Sodium Chloride 250 mls @ 3,000 mls/hr 09/04/19 11:57 Normal Saline - IV 09/04/19 15:59 PRN PRN Hypotension during Dialysis Sodium Chloride 250 mls @ 3,000 mls/hr 09/04/19 11:57 Normal Saline - IV PRN PRN Hypotension during Dialysis Meropenem 500 mg/ Dextrose 100 mls @ 200 mls/hr 09/04/19 16:00 09/05/19 04:18 IVPB 200 mls/hr 0400,1600 [facility]OE Administration Famotidine/Sodium Chloride 20 mg in 50 mls @ 100 mls/hr 09/04/19 14:30 16:34 Pepcid 20 Mg Premixed Ivpb - IVPB 100 mls/hr Q48H [facility] Administration Insulin Aspart 1 vial 09/04/19 16:30 09/05/19 06:08 Novolog Vial Sliding Scale - SQ 3 units ACHS [facility] Administration Protocol Labetalol HCl 200 mg 09/04/19 14:00 09/05/19 05:55 Normodyne - PO 200 mg TID ZOE Administration Levothyroxine Sodium 100 mcg 09/05/19 07:00 09/05/19 06:08 Synthroid Injection - IVPUSH 100 mcg 0700 [facility]OE Administration Paroxetine HCl 40 mg 09/05/19 10:00 Paxil - PO DAILY [facility] ASSESSMENT/PLAN: Problem List - Problems (1) Myxedema coma Assessment/Plan: mental status slowly improving TSH 72 now, will continue to repeat TSH with FT4 every 4 days Continue IV LT4 100mcg QD and IV hydrocortiosne BGM Q 6hrs Novolog SS coverage being followed by cloth opener hand Taper Hydrocortisone Code(s): E03.5 - MYXEDEMA COMA (2) Hypercapnic respiratory failure Assessment/Plan: Intubated on admission, extubated on 09/03/19, now on 2-3 liters of nasal cannula duonebs q4H prn, albuterol nebulizer Q6H PRN Maintain oxygen levels above 92% monitor airway Code(s): J96.92 - RESPIRATORY FAILURE, UNSPECIFIED WITH HYPERCAPNIA (3) SOB (shortness of breath) Assessment/Plan: s/p intubation, now on nasal cannula Code(s): R06.02 - SHORTNESS OF BREATH (4) Acute metabolic encephalopathy Assessment/Plan: patient presents to the ED obtunded, mental status improving. Had + ecstasy in urine, renal failure, metabolic acidosis on admission Patient s/p icu monitoring neurology following Code(s): G93.41 - METABOLIC ENCEPHALOPATHY (5) Morbid obesity Assessment/Plan: outpatient follow up Code(s): E66.01 - MORBID (SEVERE) OBESITY DUE TO EXCESS CALORIES (6) AMS (altered mental status) Assessment/Plan: see acute metabolic encephalopathy Code(s): R41.82 - ALTERED MENTAL STATUS, UNSPECIFIED (7) Acute renal failure Assessment/Plan: HD per renal for a permacath today Code(s): N17.9 - ACUTE KIDNEY FAILURE, UNSPECIFIED (8) Metabolic acidosis Assessment/Plan: hydrocortisone taper for possible adrenal insufficiency Code(s): E87.2 - ACIDOSIS (9) Diabetes Assessment/Plan: bgms ac/hs followed by cloth opener hand Code(s): E11.9 - TYPE 2 DIABETES MELLITUS WITHOUT COMPLICATIONS (10) Hypothermia Assessment/Plan: hypothermia of unclear etiology on admission ID following and currently on meropenem blood cultures negative and urine cultures + with 50-[address] + sputum/lactose fermenting bacteria/yeast/serratia Code(s): T68.XXXA - HYPOTHERMIA, INITIAL ENCOUNTER (11) Anemia Assessment/Plan: received 1 PRBC since admission Hgb 8.5 continue to monitor Code(s): D64.9 - ANEMIA, UNSPECIFIED (12) HLD (hyperlipidemia) Code(s): E78.5 - HYPERLIPIDEMIA, UNSPECIFIED (13) DVT prophylaxis Assessment/Plan: on heparin tid Code(s): Z29.9 - ENCOUNTER FOR PROPHYLACTIC MEASURES, UNSPECIFIED Visit type - Emergency Visit Emergency Visit: Yes ED Registration Date: 08/25/19 Care time: The patient presented to the Emergency Department on the above date and was hospitalized for further evaluation of their emergent condition. - New Patient This patient is new to me today: No - Critical Care Critical Care patient: No - Discharge Referral Referred to [facility] No
[2019-09-05 08:54] LABS: ALBUMIN 2.3 g/dl (3.4-5.0); BILIRUBIN,TOTAL 0.4 mg/dL (0.2-1); BLOOD UREA NITROGEN 49.5 mg/dL (7-18); CALCIUM 7.8 mg/dL (8.5-10.1); CREATININE 4.7 mg/dL (0.55-1.3); POTASSIUM 3.8 mmol/L (3.5-5.1); TOT PROT 6.4 g/dl (6.4-8.2)
[2019-09-05] MEDS ORDERED: HEPARIN NA (PORCINE) 5,000 UNITS/ML 1ML VIAL ONE (08:59)
[2019-09-05] MEDS: HYDROCORTISONE SOD SUCCINATE 100 MG/2 ML VIAL IVPUSH SCH ×2 (09:54→17:26)
[2019-09-05] MEDS ORDERED: amLODIPine BESYLATE 10 MG TABLET (FP) PO SCH (10:00)
[2019-09-05] MEDS ORDERED: PARoxetine HCL 20 MG TABLET PO SCH (10:00)
--- NOTE | 2019-09-05 10:23 | CONSULT ---
Consult - text type - Consultation Consultation Note: 54 year old woman admitted 11 days ago with azotemia and altered mental status. She has received HD via [place] now needs Permacath tpo continue treatment. She is barely responsive to verbal stimuli, opens eyes but won't answer questions. Permacath procedure discussed with family.
[2019-09-05] MEDS ORDERED: PROPOFOL 20 ML ONE (10:40)
[2019-09-05] MEDS ORDERED: LABETALOL HCL 5 MG/1 ML (100MG/20 ML VIAL) ONE (10:47)
[2019-09-05] MEDS ORDERED: LIDOCAINE HCL 1%, 10 MG/ML (20ML VIAL) NR ONE ×2 (10:47)
--- NOTE | 2019-09-05 11:17 | OP ---
Operative Note - Note: Operative Date: 09/05/19 Pre-Operative Diagnosis: ESRD Operation: Placement Permacath Findings: ;patent right IJV with small amount of thrombus on vessel wall. Implants: 19 cm TTC Permacath Post-Operative Diagnosis: Same as Pre-op Surgeon: Grabiel Lentz Anesthesiologist/SUPERVISOR BAKING: Shawn Sandoval Anesthesia: Fractional
[2019-09-05] MEDS ORDERED: INSULIN (NOVOLOG) ASPART 100 UNITS/ML 10ML VIAL ONE (11:19)
--- NOTE | 2019-09-05 11:33 | PN ---
Progress Note, Physician History of Present Illness: stable permacath placement done - Current Medication List Current Medications: Active Medications Acetaminophen (Ofirmev Injection -) 1,000 mg IVPB Q6H PRN PRN Reason: FEVER Amlodipine Besylate (Norvasc -) 10 mg PO DAILY [facility] Last Admin: 09/05/19 09:54 Dose: 10 mg Heparin Sodium (Porcine) (Heparin -) 5,000 unit SQ TID [facility] Last Admin: 09/05/19 05:55 Dose: 5,000 unit Hydrocortisone Sodium Succinate (Solu-Cortef -) 100 mg IVPUSH BID [facility] Last Admin: 09/05/19 09:54 Dose: 100 mg Sodium Chloride (Normal Saline -) 250 mls @ 3,000 mls/hr IV PRN PRN PRN Reason: Hypotension during Dialysis Stop: 09/04/19 15:59 Sodium Chloride (Normal Saline -) 250 mls @ 3,000 mls/hr IV PRN PRN PRN Reason: Hypotension during Dialysis Meropenem 500 mg/ Dextrose 100 mls @ 200 mls/hr IVPB 0400,1600 [facility] Last Admin: 09/05/19 04:18 Dose: 200 mls/hr Famotidine/Sodium Chloride (Pepcid 20 Mg Premixed Ivpb -) 20 mg in 50 mls @ 100 mls/hr IVPB Q48H [facility] Last Admin: 09/04/19 16:34 Dose: 100 mls/hr Sodium Chloride (Normal Saline -) 1,000 mls @ 30 mls/hr IV ASDIR [facility] Insulin Aspart (Novolog Vial Sliding Scale -) 1 vial SQ ACHS [facility]; Protocol Last Admin: 09/05/19 06:08 Dose: 3 units Labetalol HCl (Normodyne -) 200 mg PO TID [facility] Last Admin: 09/05/19 05:55 Dose: 200 mg Levothyroxine Sodium (Synthroid Injection -) 100 mcg IVPUSH 0700 [facility] Last Admin: 09/05/19 06:08 Dose: 100 mcg Paroxetine HCl (Paxil -) 40 mg PO DAILY [facility] Last Admin: 09/05/19 09:54 Dose: 40 mg - Objective Vital Signs: Vital Signs Temperature 98.9 F 09/05/19 08:00 Pulse Rate 65 09/05/19 08:00 Respiratory Rate 20 09/05/19 08:00 Blood Pressure 141/77 09/05/19 08:00 O2 Sat by Pulse Oximetry (%) 97 09/05/19 09:00 Constitutional: Yes: No Distress, Calm Cardiovascular: Yes: S1, S2 Respiratory: Yes: Other Gastrointestinal: Yes: Normal Bowel Sounds, Soft Musculoskeletal: Yes: WNL Extremities: Yes: WNL Neurological: Yes: Other Psychiatric: Yes: Other Labs: CBC, BMP 09/05/19 06:35 09/05/19 06:35 INR, PTT INR 0.92 (0.83-1.09) 09/02/19 06:00 Assessment/Plan Problem List - Problems (1) LUCY (acute kidney injury) Code(s): N17.9 - ACUTE KIDNEY FAILURE, UNSPECIFIED (2) AMS (altered mental status) Code(s): R41.82 - ALTERED MENTAL STATUS, UNSPECIFIED (3) Acute metabolic encephalopathy Code(s): G93.41 - METABOLIC ENCEPHALOPATHY (4) Acute respiratory failure Code(s): J96.00 - ACUTE RESPIRATORY FAILURE, UNSP W HYPOXIA OR HYPERCAPNIA (5) Anemia Code(s): D64.9 - ANEMIA, UNSPECIFIED (6) COPD (chronic obstructive pulmonary disease) Code(s): J44.9 - CHRONIC OBSTRUCTIVE PULMONARY DISEASE, UNSPECIFIED (7) Diabetes Code(s): E11.9 - TYPE 2 DIABETES MELLITUS WITHOUT COMPLICATIONS (8) HTN (hypertension) Code(s): I10 - ESSENTIAL (PRIMARY) HYPERTENSION (9) Hypercapnic respiratory failure Code(s): J96.92 - RESPIRATORY FAILURE, UNSPECIFIED WITH HYPERCAPNIA (10) Hypothermia Code(s): T68.XXXA - HYPOTHERMIA, INITIAL ENCOUNTER (11) Morbid obesity Code(s): E66.01 - MORBID (SEVERE) OBESITY DUE TO EXCESS CALORIES (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 - MYXEDEMA COMA (13) Thyroid cancer Code(s): C73 - MALIGNANT NEOPLASM OF THYROID GLAND Assessment/Plan Acute respiratory failure on MV/sedation Acute metabolic encephalopathy AMS Myxedema coma DM LUCY on CKD Obesity Hx of thyroid CA s/p thyroidectomy HTN HLD COPD Anemia vap plan continue current mgmt rest as per the team
--- NOTE | 2019-09-05 11:41 | PN ---
Progress Note, PROCESS EXCELLENCE MANAGER - Note Progress Note: Selected Entries 09/04/19 09/04/19 09/04/19 02:00 06:00 09:55 Breakfast NPO Lunch NPO Supper Temperature 98.9 F 98.6 F 09/04/19 09/04/19 09/04/19 10:00 12:00 15:00 Breakfast NPO Lunch NPO 25% Supper Temperature 98.4 F 99.2 F 09/04/19 09/04/19 09/05/19 18:00 22:00 02:09 Breakfast Lunch Supper 50% Temperature 98.5 F 99 F 99.2 F 09/05/19 09/05/19 06:53 08:00 Breakfast Lunch Supper Temperature 99.4 F 98.9 F Laboratory Tests 09/04/19 09/05/19 05:15 06:35 WBC 9.6 7.9 Pt on soft diet/ thin liquids yesterday. NPO today for Permacath
[2019-09-05] MEDS ORDERED: SODIUM CHLORIDE 1,000 ML IV SCH (11:45)
--- NOTE | 2019-09-05 12:30 | PN ---
Progress Note (short form) - Note Progress Note: 54 year old female history of HTN, HLD, DM COPD, Anemia thyroid cancer. Patient came with ams and had CHF, renal failure , anemia . James was intubated, she was hypothermic. She is on sedation . Ganesh has ct head and there is mild dilation of ventricles. She was transferred from icu to floor yesterday, she is doing better. She is oriented x 2 and no new focal neurological symptoms Patigavino is sedated and no response to verbal stimuli NEUROLOGICAL EXAMINATION neck is supple , hypertensive, alert oriented x 3( knows her name where she is , is able to tell me today is september 06 but mistake on year) pupils reactive no face asymmetry moving all ext , generalized proximal weakness rest of neuro exam is not possible ct head reviewed and mild ventricular dilatation and this could be due to intercurrent illness Assessment/Plan4 year old female history of HTN, HLD, DM COPD, Anemia thyroid cancer. Patient came with ams and had CHF, renal failure , anemia . Patient was extubated and now on regular floor and oriented x 2 and moving all ext. Plan: much improved since extubation and would continue to follow continue supportive care Thanking you so much Hill Hayden MD
[2019-09-05] MEDS ORDERED: ACETAMINOPHEN 1000 MG/100 ML VIAL (NON FORMULARY) IVPB PRN (13:00)
[2019-09-05] MEDS ORDERED: SODIUM CHLORIDE 250 ML IV PRN (13:00)
--- NOTE | 2019-09-05 13:19 | PN ---
Progress Note (short form) - Note Progress Note: Patient seen in PACU, S/P Permacath placement. Drowsy but easily arousable. Denies CP or SOB. Intake & Output 09/02/19 09/03/19 09/04/19 09/05/19 23:59 23:59 23:59 23:59 Intake Total 1931 1468 600 375 Output Total 3465 3450 500 300 Balance -1533 100 75 Weight 258 lb 8 oz 256 lb 254 lb 14.4 oz Last Vital Signs Temp Pulse Resp BP Pulse Ox 99.3 F 60 22 H 185/90 H 97 09/05/19 12:05 09/05/19 12:05 09/05/19 12:05 09/05/19 12:05 09/05/19 12:05 Active Medications Acetaminophen (Ofirmev Injection -) 1,000 mg IVPB Q6H PRN PRN Reason: FEVER Amlodipine Besylate (Norvasc -) 10 mg PO DAILY [facility] Heparin Sodium (Porcine) (Heparin -) 5,000 unit SQ TID [facility] Hydrocortisone Sodium Succinate (Solu-Cortef -) 50 mg IVPUSH Q8H-IV [facility] Sodium Chloride (Normal Saline -) 1,000 mls @ 30 mls/hr IV ASDIR [facility] Sodium Chloride (Normal Saline -) 250 mls @ 3,000 mls/hr IV PRN PRN PRN Reason: Hypotension during Dialysis Meropenem 500 mg/ Dextrose 100 mls @ 200 mls/hr IVPB 0400,1600 [facility] Famotidine/Sodium Chloride (Pepcid 20 Mg Premixed Ivpb -) 20 mg in 50 mls @ 100 mls/hr IVPB Q48H [facility] Insulin Aspart (Novolog Vial Sliding Scale -) 1 vial SQ ACHS [facility]; Protocol Labetalol HCl (Normodyne -) 200 mg PO TID [facility] Levothyroxine Sodium (Synthroid Injection -) 100 mcg IVPUSH 0700 [facility] Paroxetine HCl (Paxil -) 40 mg PO DAILY [facility] Gen: NAD Heart: RRR Lung: decreased breath sounds at the bases Abd: soft, nontender Ext: + edema improving Laboratory Results - last 24 hr 09/04/19 09/04/19 09/05/19 16:01 21:04 05:26 WBC RBC Hgb Hct MCV MCH MCHC RDW Plt Count MPV Absolute Neuts (auto) Neutrophils % Lymphocytes % Monocytes % Eosinophils % Basophils % Nucleated RBC % Sodium Potassium Chloride Carbon Dioxide Anion Gap BUN Creatinine Est GFR (CKD-EPI)AfAm Est GFR (CKD-EPI)NonAf POC Glucometer 183 179 239 Random Glucose Calcium Magnesium Total Bilirubin AST ALT Alkaline Phosphatase Total Protein Albumin TSH 09/05/19 09/05/19 09/05/19 06:35 06:35 12:49 WBC 7.9 RBC 2.96 L Hgb 8.8 L Hct 26.7 L MCV 90.2 MCH 29.8 MCHC 33.0 RDW 16.5 H Plt Count 263 MPV 9.8 Absolute Neuts (auto) 5.9 Neutrophils % 75.4 Lymphocytes % 22.2 D Monocytes % 2.4 L Eosinophils % 0.0 Basophils % 0.0 Nucleated RBC % 0 Sodium 136 Potassium 3.8 Chloride 98 Carbon Dioxide 27 Anion Gap 11 BUN 49.5 H Creatinine 4.7 H Est GFR (CKD-EPI)AfAm 11.55 Est GFR (CKD-EPI)NonAf 9.97 POC Glucometer 153 Random Glucose 214 H Calcium 7.8 L Magnesium 2.0 Total Bilirubin 0.4 AST 32 ALT 43 Alkaline Phosphatase 559 H Total Protein 6.4 Albumin 2.3 L TSH 72.30 H ASSESSMENT AND PLAN: Acute Hypercapneic Respiratory Failure Myxedema Coma UTI Acute Kidney Injury requiring HD Volume Overload Pleural Effusions COPD DM Anemia - HD per renal with ultrafiltration - monitor urine output, creatinine - ABX Per ID - hydrocortisone & synthroid per Endocrine - inhaled bronchodilators - O2 to keep SpO2 >90% - PO as tolerated - DVT/GI prophylaxis Dr Alonso
[2019-09-05 14:22] LABS: INR 0.99 (0.83-1.09); PROTHROMBIN TIME (PATIENT) 11.7 SEC (9.7-13.0)
[2019-09-05 14:25] LABS: ACTIVATED PTT 51.7 SECONDS (25.2-36.5)
[2019-09-05 15:07] LABS: FREE KAPPA,SERUM 149.8 mg/L (3.3-19.4)
--- NOTE | 2019-09-05 15:45 | PN ---
Progress Note, Physician History of Present Illness: Pt seen and examined at bedside. She had the permacath placed. She denies shortness of breath. - Current Medication List Current Medications: Active Medications Acetaminophen (Ofirmev Injection -) 1,000 mg IVPB Q6H PRN PRN Reason: FEVER Amlodipine Besylate (Norvasc -) 10 mg PO DAILY [facility] Heparin Sodium (Porcine) (Heparin -) 5,000 unit SQ TID [facility] Last Admin: 09/05/19 14:19 Dose: 5,000 unit Hydrocortisone Sodium Succinate (Solu-Cortef -) 50 mg IVPUSH Q8H-IV [facility] Sodium Chloride (Normal Saline -) 1,000 mls @ 30 mls/hr IV ASDIR [facility] Last Admin: 09/05/19 14:15 Dose: 30 mls/hr Sodium Chloride (Normal Saline -) 250 mls @ 3,000 mls/hr IV PRN PRN PRN Reason: Hypotension during Dialysis Meropenem 500 mg/ Dextrose 100 mls @ 200 mls/hr IVPB 0400,1600 [facility] Famotidine/Sodium Chloride (Pepcid 20 Mg Premixed Ivpb -) 20 mg in 50 mls @ 100 mls/hr IVPB Q48H [facility] Insulin Aspart (Novolog Vial Sliding Scale -) 1 vial SQ ACHS [facility]; Protocol Labetalol HCl (Normodyne -) 200 mg PO TID [facility] Last Admin: 09/05/19 14:19 Dose: 200 mg Levothyroxine Sodium (Synthroid Injection -) 100 mcg IVPUSH 0700 [facility] Paroxetine HCl (Paxil -) 40 mg PO DAILY [facility] - Objective Vital Signs: Vital Signs Temperature 99.3 F 09/05/19 12:05 Pulse Rate 60 09/05/19 12:05 Respiratory Rate 22 H 09/05/19 12:05 Blood Pressure 185/90 H 09/05/19 12:05 O2 Sat by Pulse Oximetry (%) 97 09/05/19 12:05 Constitutional: Yes: Calm Eyes: Yes: Conjunctiva Clear HENT: Yes: Atraumatic Neck: Yes: Supple Cardiovascular: Yes: S1, S2 Respiratory: Yes: CTA Bilaterally Gastrointestinal: Yes: Normal Bowel Sounds, Soft Genitourinary: Yes: WNL Musculoskeletal: Yes: WNL Edema: Yes Edema: LLE: Trace, RLE: Trace Integumentary: Yes: Tattoos Neurological: Yes: Oriented Labs: CBC, BMP 09/05/19 06:35 09/05/19 06:35 INR, PTT INR 0.99 (0.83-1.09) 09/05/19 13:45 Problem List - Problems (1) AMS (altered mental status) Code(s): R41.82 - ALTERED MENTAL STATUS, UNSPECIFIED (2) Acute metabolic encephalopathy Code(s): G93.41 - METABOLIC ENCEPHALOPATHY (3) Acute renal failure Code(s): N17.9 - ACUTE KIDNEY FAILURE, UNSPECIFIED (4) Diabetes Code(s): E11.9 - TYPE 2 DIABETES MELLITUS WITHOUT COMPLICATIONS (5) Hypercapnic respiratory failure Code(s): J96.92 - RESPIRATORY FAILURE, UNSPECIFIED WITH HYPERCAPNIA (6) Hypothermia Code(s): T68.XXXA - HYPOTHERMIA, INITIAL ENCOUNTER (7) Morbid obesity Code(s): E66.01 - MORBID (SEVERE) OBESITY DUE TO EXCESS CALORIES Assessment/Plan Current Medications Generic Name Dose Route Start Last Admin Trade Name Freq PRN Reason Stop Dose Admin Acetaminophen 1,000 mg 09/05/19 13:00 Ofirmev Injection - IVPB Q6H PRN FEVER Amlodipine Besylate 10 mg 09/06/19 10:00 Norvasc - PO DAILY [facility] Heparin Sodium (Porcine) 5,000 unit 09/05/19 14:00 09/05/19 14:19 Heparin - SQ 5,000 unit TID [facility] Administration Hydrocortisone Sodium Succinate 50 mg 09/05/19 18:00 Solu-Cortef - IVPUSH Q8H-IV [facility] Sodium Chloride 1,000 mls @ 30 mls/hr 09/05/19 11:45 09/05/19 14:15 Normal Saline - IV 30 mls/hr ASDIR [facility] Administration Sodium Chloride 250 mls @ 3,000 mls/hr 09/05/19 13:00 Normal Saline - IV PRN PRN Hypotension during Dialysis Meropenem 500 mg/ Dextrose 100 mls @ 200 mls/hr 09/05/19 16:00 IVPB 0400,1600 [facility] Famotidine/Sodium Chloride 20 mg in 50 mls @ 100 mls/hr 09/06/19 14:30 Pepcid 20 Mg Premixed Ivpb - IVPB Q48H [facility] Insulin Aspart 1 vial 09/05/19 16:30 Novolog Vial Sliding Scale - SQ ACHS [facility] Protocol Labetalol HCl 200 mg 09/05/19 14:00 09/05/19 14:19 Normodyne - PO 200 mg TID [facility] Administration Levothyroxine Sodium 100 mcg 09/06/19 07:00 Synthroid Injection - IVPUSH 0700 [facility] Paroxetine HCl 40 mg 09/06/19 10:00 Paxil - PO DAILY [facility] Impression 1. LUCY 2. fluid overload 3. acute respiratory failure 4. hypothyroidism with tsh of 100 5. 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 urine tox pos for mdma 7. mild rhabdo 8. hepatitis B Plan - d/c saline - s/p permacath - HD tomorrow - monitor urine output - follow repeat spep and light chains - serologies negative
[2019-09-05 16:50] LABS: EPI CELLS 4.3 /HPF (0-5/HPF); HYALINE CASTS 17 /lpf (0-8); PH,URINE 5.5 (5.0-8.0); URINE APPEARANCE TURBID; URINE BILIRUBIN NEGATIVE (NEGATIVE); URINE COLOR YELLOW; URINE GLUCOSE (UA) TRACE (NEGATIVE); URINE KETONE NEGATIVE (NEGATIVE); URINE LEUK ESTERASE 1+ (NEGATIVE); URINE NITRITE NEGATIVE (NEGATIVE); URINE PROTEIN 4+ (NEGATIVE); URINE UROBILINOGEN 0.2 mg/dL (0.2-1.0); URINE WBC 229 /hpf (0-5)
[2019-09-05 17:25] LABS: URINE RBC 15-20 /hpf (0-4)
[2019-09-05 17:26] LABS: YEAST Moderate (NEGATIVE)
[2019-09-06] MEDS ORDERED: hydrALAZINE HCL 25 MG TABLET (FP) PO ONE (02:14)
[2019-09-06] MEDS: HYDROCORTISONE SOD SUCCINATE 100 MG/2 ML VIAL IVPUSH SCH ×3 (02:30→22:12)
[2019-09-06] MEDS ORDERED: PT OWN MED DRAWER 7, Y5N ONE ×2 (04:27→05:55)
[2019-09-06] MEDS: MEROPENEM 500 MG in DEXTROSE 5%-WATER 100 ML IVPB SCH ×2 (04:43→15:41)
[2019-09-06] MEDS: HEPARIN NA (PORCINE) 5,000 UNITS/ML 1ML VIAL SQ SCH ×3 (06:18→22:12)
[2019-09-06] MEDS: LABETALOL HCL 100 MG TABLET (FP) PO SCH ×3 (06:19→22:12)
[2019-09-06] MEDS: INSULIN SLIDING SCALE (NOVOLOG) 1 VIAL SQ SCH ×4 (06:20→22:11)
[2019-09-06] MEDS ORDERED: INSULIN (LEVEMIR) 100 UNITS/ML UNITS SQ ONE (06:58)
[2019-09-06] MEDS ORDERED: INSULIN (NOVOLOG) ASPART 100 UNITS/ML 10ML VIAL ONE ×2 (06:58→22:08)
[2019-09-06] MEDS ORDERED: LEVOTHYROXINE SODIUM 100 MCG VIAL IVPUSH SCH (07:00)
--- NOTE | 2019-09-06 07:50 | PN ---
Progress Note, Physician Chief Complaint: Examined during HD. Soft spoken-no complaints offered History of Present Illness: Patient is a 54 year old morbid obese female with a significant past medical history of hypertension, hyperlipidemia, diabetes, COPD, anemia, thyroid cancer 6 years ago (no prior admission to [facility]). Patient brought into the ED 08/25/19 for altered mental status, acute shortness of breath, metabolic acidosis. She was found to have an elevated TSH, low t4 and hypothermic (96f- 97-on mariana hugger). Urine was + for ecstasy. on admission had renal failure with a creat of 7.7. she was admitted to the ICU and since 09/04, is being monitored on med surg unit. S/P permacath placement yesterday - Current Medication List Current Medications: Active Medications Acetaminophen (Ofirmev Injection -) 1,000 mg IVPB Q6H PRN PRN Reason: FEVER Amlodipine Besylate (Norvasc -) 10 mg PO DAILY [facility] Heparin Sodium (Porcine) (Heparin -) 5,000 unit SQ TID [facility] Last Admin: 09/06/19 06:18 Dose: 5,000 unit Hydrocortisone Sodium Succinate (Solu-Cortef -) 50 mg IVPUSH Q8H-IV [facility] Last Admin: 09/06/19 02:30 Dose: 50 mg Sodium Chloride (Normal Saline -) 1,000 mls @ 30 mls/hr IV ASDIR [facility] Last Admin: 09/05/19 14:15 Dose: 30 mls/hr Sodium Chloride (Normal Saline -) 250 mls @ 3,000 mls/hr IV PRN PRN PRN Reason: Hypotension during Dialysis Meropenem 500 mg/ Dextrose 100 mls @ 200 mls/hr IVPB 0400,1600 [facility] Last Admin: 09/06/19 04:43 Dose: 200 mls/hr Famotidine/Sodium Chloride (Pepcid 20 Mg Premixed Ivpb -) 20 mg in 50 mls @ 100 mls/hr IVPB Q48H [facility] Sodium Chloride (Normal Saline -) 250 mls @ 3,000 mls/hr IV PRN PRN PRN Reason: Hypotension during Dialysis Stop: 09/06/19 15:46 Insulin Aspart (Novolog Vial Sliding Scale -) 1 vial SQ ACHS [facility]; Protocol Last Admin: 09/06/19 06:20 Dose: Not Given Labetalol HCl (Normodyne -) 200 mg PO TID [facility] Last Admin: 09/06/19 06:19 Dose: 200 mg Levothyroxine Sodium (Synthroid Injection -) 100 mcg IVPUSH 0700 [facility] Last Admin: 09/06/19 06:19 Dose: 100 mcg Paroxetine HCl (Paxil -) 40 mg PO DAILY [facility] - Objective Vital Signs: Vital Signs Temperature 98.5 F 09/06/19 02:00 Pulse Rate 63 09/06/19 02:00 Respiratory Rate 20 09/06/19 02:00 Blood Pressure 177/90 H 09/06/19 02:00 O2 Sat by Pulse Oximetry (%) 97 09/05/19 21:00 Constitutional: Yes: Well Nourished, No Distress, Calm Eyes: Yes: WNL, Conjunctiva Clear HENT: Yes: WNL, Atraumatic, Normocephalic Neck: Yes: Other (permacath) Cardiovascular: Yes: WNL, Regular Rate and Rhythm Respiratory: Yes: WNL, Regular, CTA Bilaterally Gastrointestinal: Yes: WNL, Normal Bowel Sounds, Soft, Abdomen, Obese ...Rectal Exam: Yes: Deferred Genitourinary: Yes: Mahoney Present Breast(s): Yes: WNL Musculoskeletal: Yes: Muscle Weakness Extremities: Yes: WNL Edema: Yes Edema: LUE: Trace, RUE: Trace, LLE: Trace, RLE: Trace Peripheral Pulses WNL: Yes Peripheral Pulses: Left Radial: 2+, Right Radial: 2+, Left Doralis Pedis: 2+, Right Dorsalis Pedis: 2+, Left Femoral: 2+, Right Femoral: 2+ Integumentary: Yes: WNL Neurological: Yes: WNL, Alert ...Motor Strength: LLE, RLE (genralized weakness) Psychiatric: Yes: WNL Labs: CBC, BMP 09/05/19 06:35 09/05/19 06:35 INR, PTT INR 0.99 (0.83-1.09) 09/05/19 13:45 Problem List - Problems (1) HTN (hypertension) Assessment/Plan: on lisinipril/ nifedipine at home being held started on norvasc 10mg & labetolol 200mg tid post-extubation will continue Code(s): I10 - ESSENTIAL (PRIMARY) HYPERTENSION (2) HLD (hyperlipidemia) Assessment/Plan: can restart atorvastatin now extubated Code(s): E78.5 - HYPERLIPIDEMIA, UNSPECIFIED (3) COPD (chronic obstructive pulmonary disease) Assessment/Plan: duo nebs q4h mechanically ventilated on AC Code(s): J44.9 - CHRONIC OBSTRUCTIVE PULMONARY DISEASE, UNSPECIFIED (4) Anemia Assessment/Plan: recieved 1 u PRBC since admission Hgb 9.0 continue to monitor Code(s): D64.9 - ANEMIA, UNSPECIFIED (5) Thyroid cancer Code(s): C73 - MALIGNANT NEOPLASM OF THYROID GLAND (6) Acute respiratory failure Assessment/Plan: remains extubated tolerating NC at 2L Code(s): J96.00 - ACUTE RESPIRATORY FAILURE, UNSP W HYPOXIA OR HYPERCAPNIA (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 Code(s): F16.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 ABUSE, UNCOMPLICATED (8) LUCY (acute kidney injury) Assessment/Plan: Cr 5.3 being dialyzed presently HD as per renal avoid nephrotoxic agents Code(s): N17.9 - ACUTE KIDNEY FAILURE, UNSPECIFIED (9) Acute metabolic encephalopathy Assessment/Plan: resolved avoid any sedating agents Code(s): G93.41 - METABOLIC ENCEPHALOPATHY (10) Morbid obesity Code(s): E66.01 - MORBID (SEVERE) OBESITY DUE TO EXCESS CALORIES (11) Prophylactic measure Assessment/Plan: FEN no additional IVF soft diet ADHESIVE SPRAYER following monitor electrolytes DVT SCDs Dispo mainatin as inpatient full code discharge planning Code(s): Z29.9 - ENCOUNTER FOR PROPHYLACTIC MEASURES, UNSPECIFIED (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 Assessment/Plan: mental status improving TSH 72 now, will continue to repeat TSH with FT4 every 4 days-next 09/09 Continue IV LT4 100mcg QD and IV hydrocortiosne BGM Q 6hrs Novolog SS coverage being followed by toolsmith Taper Hydrocortisone Code(s): E03.5 - MYXEDEMA COMA (13) Fever Assessment/Plan: resolved ID following c/w meropenem continue to monitor Code(s): R50.9 - FEVER, UNSPECIFIED Visit type - Emergency Visit Emergency Visit: Yes ED Registration Date: 08/25/19 Care time: The patient presented to the Emergency Department on the above date and was hospitalized for further evaluation of their emergent condition. - New Patient This patient is new to me today: No - Critical Care Critical Care patient: No - Discharge Referral Referred to [facility] No
[2019-09-06] MEDS: PROPOFOL 1,000,000 MCG/100 ML VIAL IVPB SCH (09:58)
[2019-09-06] MEDS ORDERED: FAMOTIDINE 10 MG TABLET PO SCH (10:00)
[2019-09-06 10:48] LABS: ALBUMIN 2.2 g/dl (3.4-5.0); BILIRUBIN,TOTAL 0.5 mg/dL (0.2-1); BLOOD UREA NITROGEN 65.9 mg/dL (7-18); CALCIUM 8.1 mg/dL (8.5-10.1); CREATININE 5.3 mg/dL (0.55-1.3); MAGNESIUM 2.1 mg/dL (1.8-2.4); POTASSIUM 3.8 mmol/L (3.5-5.1); TOT PROT 6.4 g/dl (6.4-8.2)
[2019-09-06 10:59] LABS: BASO % 0.1 % (0-2.0); HEMATOCRIT 26.9 % (32.4-45.2); MCH 30.3 pg (25.7-33.7); MCHC 33.7 g/dl (32.0-36.0); MEAN PLT VOLUME 9.6 fl (7.5-11.1); MONO % 3.7 % (3.8-10.2); NEUT % 69.2 % (42.8-82.8); PLATELET COUNT 264 K/MM3 (134-434); RBC 2.98 M/mm3 (3.60-5.2); RDW 16.2 % (11.6-15.6); WHITE BLOOD COUNT 8.7 K/mm3 (4.0-10.0)
--- NOTE | 2019-09-06 13:28 | PN ---
Progress Note (short form) - Note Progress Note: Extubated and transferred to floor Undergoing HD Vital Signs Period Temp Pulse Resp BP Sys/Amos Pulse Ox Last 24 Hr 97.8 F-99.4 F 49-75 9-31 86-183/54-90 99-100 PE: awake, alert, recognized brother in room Neck: Supple LUngs: CTA CVs: S1S2 Abd: Benign EXt: No edema CMP Sodium 136 mmol/L (136-145) 09/06/19 09:35 Potassium 3.8 mmol/L (3.5-5.1) 09/06/19 09:35 Chloride 99 mmol/L (98-107) 09/06/19 09:35 Carbon Dioxide 26 mmol/L (21-32) 09/06/19 09:35 Anion Gap 11 MMOL/L (8-16) 09/06/19 09:35 BUN 65.9 mg/dL (7-18) H 09/06/19 09:35 Creatinine 5.3 mg/dL (0.55-1.3) H 09/06/19 09:35 Est GFR (CKD-EPI)AfAm 9.99 09/06/19 09:35 Est GFR (CKD-EPI)NonAf 8.62 09/06/19 09:35 POC Glucometer 145 UNITS (80-120) 09/06/19 06:19 Random Glucose 155 mg/dL (74-106) H 09/06/19 09:35 Lactic Acid 0.7 mmol/L (0.4-2.0) 08/25/19 11:00 Calcium 8.1 mg/dL (8.5-10.1) L 09/06/19 09:35 Phosphorus 4.2 mg/dL (2.5-4.9) 09/04/19 05:15 Magnesium 2.1 mg/dL (1.8-2.4) 09/06/19 09:35 Total Bilirubin 0.5 mg/dL (0.2-1) 09/06/19 09:35 Direct Bilirubin 0.2 mg/dL (0.0-0.2) 08/26/19 05:54 AST 27 U/L (15-37) 09/06/19 09:35 ALT 36 U/L (13-61) 09/06/19 09:35 Alkaline Phosphatase 507 U/L (45-117) H 09/06/19 09:35 Ammonia 24.90 umol/L (11-32) 08/25/19 11:00 Creatine Kinase 1133 U/L (26-192) H 08/26/19 05:54 Creatine Kinase Index 0.8 % (0.0-5.0) 08/26/19 05:54 CK-MB (CK-2) 9.5 ng/mL (0.5-3.6) H 08/26/19 05:54 Troponin I < 0.02 ng/ml (0.00-0.05) 08/26/19 05:54 B-Natriuretic Peptide 3649.4 pg/ml (5-125) H 08/25/19 11:00 Total Protein 6.4 g/dl (6.4-8.2) 09/06/19 09:35 Total Protein (PEP) 5.6 g/dL (6.0-8.5) L 08/26/19 21:25 Albumin 2.2 g/dl (3.4-5.0) L 09/06/19 09:35 Albumin (PEP) 2.4 gm/dl (2.9-4.4) L 08/26/19 21:25 Globulin 3.2 g/dL (2.2-3.9) 08/26/19 21:25 Albumin/Globulin Ratio 0.8 (0.7-1.7) 08/26/19 21:25 Beta Globulins 0.9 gm/dL (0.7-1.3) 08/26/19 21:25 Beta-Hydroxybutyrate 1.1 mg/dL (0.2-2.8) 08/25/19 11:00 Procalcitonin 1.29 ng/mL (0.00-0.08) H 08/25/19 13:41 TSH 72.30 uIU/ml (0.358-3.74) H 09/05/19 06:35 Free T4 0.24 ng/dl (0.76-1.46) L 08/25/19 11:00 Thyroxine (T4) 3.2 ug/dl (4.5-13.9) L 08/25/19 11:00 Free T3 0.5 pg/ml (2.0-4.4) L 08/25/19 13:24 Resin T3 Uptake 30.3 % (30-39) 08/26/19 05:54 Serum , Qual Negative 08/30/19 15:40 Cortisol Pre Dose Time 40.10 mcg/dL (.) 08/25/19 12:46 Current Medications Generic Name Dose Route Start Last Admin Trade Name Freq PRN Reason Stop Dose Admin Acetaminophen 1,000 mg 09/05/19 13:00 Ofirmev Injection - IVPB Q6H PRN FEVER Amlodipine Besylate 10 mg 09/06/19 10:00 Norvasc - PO DAILY [facility] Atorvastatin Calcium 40 mg 09/06/19 22:00 Lipitor - PO HS [facility] Famotidine 20 mg 09/06/19 10:00 Acid Inspector Line PO Q2D [facility] Heparin Sodium (Porcine) 5,000 unit 09/05/19 14:00 09/06/19 06:18 Heparin - SQ 5,000 unit TID [facility] Administration Hydrocortisone Sodium Succinate 50 mg 09/05/19 18:00 09/06/19 02:30 Solu-Cortef - IVPUSH 50 mg Q8H-IV [facility] Administration Sodium Chloride 250 mls @ 3,000 mls/hr 09/05/19 13:00 Normal Saline - IV PRN PRN Hypotension during Dialysis Meropenem 500 mg/ Dextrose 100 mls @ 200 mls/hr 09/05/19 16:00 09/06/19 04:43 IVPB 200 mls/hr 0400,1600 [facility] Administration Sodium Chloride 250 mls @ 3,000 mls/hr 09/05/19 15:45 Normal Saline - IV 09/06/19 15:46 PRN PRN Hypotension during Dialysis Insulin Aspart 1 vial 09/05/19 16:30 09/06/19 06:20 Novolog Vial Sliding Scale - SQ Not Given ACHS [facility] Protocol Labetalol HCl 200 mg 09/05/19 14:00 09/06/19 06:19 Normodyne - PO 200 mg TID [facility] Administration Levothyroxine Sodium 100 mcg 09/06/19 07:00 09/06/19 06:19 Synthroid Injection - IVPUSH 100 mcg 0700 [facility] Administration Paroxetine HCl 40 mg 09/06/19 10:00 Paxil - PO DAILY [facility] AP: Respiratory failure AMS/ Toxic metabolic encephalopathy Hypothyrodism Throid ca s/p Thyroidectomy Morbid obesity LUCY on CKD DM Anemia with drop in H/H H/o Renal stones Elevated Alk Phos Ventilatory support TSH 60.2, 72.30 now, Rpt TSH with FT4 in 2 to 3 days with FT4 and FT3 Change to LT4 200mcg PO and Taper IV hydrocortiosne BGM Q 6hrs Novolog SS coverage Will f/u Problem List - Problems (1) AMS (altered mental status) Code(s): R41.82 - ALTERED MENTAL STATUS, UNSPECIFIED (2) Acute metabolic encephalopathy Code(s): G93.41 - METABOLIC ENCEPHALOPATHY (3) Acute renal failure Code(s): N17.9 - ACUTE KIDNEY FAILURE, UNSPECIFIED (4) Diabetes Code(s): E11.9 - TYPE 2 DIABETES MELLITUS WITHOUT COMPLICATIONS (5) Hypercapnic respiratory failure Code(s): J96.92 - RESPIRATORY FAILURE, UNSPECIFIED WITH HYPERCAPNIA (6) Hypothermia Code(s): T68.XXXA - HYPOTHERMIA, INITIAL ENCOUNTER (7) Metabolic acidosis Code(s): E87.2 - ACIDOSIS (8) Morbid obesity Code(s): E66.01 - MORBID (SEVERE) OBESITY DUE TO EXCESS CALORIES
--- NOTE | 2019-09-06 13:48 | PN ---
Progress Note, Physician History of Present Illness: stable no new issues - Current Medication List Current Medications: Active Medications Acetaminophen (Ofirmev Injection -) 1,000 mg IVPB Q6H PRN PRN Reason: FEVER Amlodipine Besylate (Norvasc -) 10 mg PO DAILY [facility] Atorvastatin Calcium (Lipitor -) 40 mg PO HS [facility] Famotidine (Acid Energy Technician) 20 mg PO Q2D [facility] Heparin Sodium (Porcine) (Heparin -) 5,000 unit SQ TID [facility] Last Admin: 09/06/19 06:18 Dose: 5,000 unit Hydrocortisone Sodium Succinate (Solu-Cortef -) 50 mg IVPUSH Q8H-IV [facility] Last Admin: 09/06/19 02:30 Dose: 50 mg Sodium Chloride (Normal Saline -) 250 mls @ 3,000 mls/hr IV PRN PRN PRN Reason: Hypotension during Dialysis Meropenem 500 mg/ Dextrose 100 mls @ 200 mls/hr IVPB 0400,1600 [facility] Last Admin: 09/06/19 04:43 Dose: 200 mls/hr Sodium Chloride (Normal Saline -) 250 mls @ 3,000 mls/hr IV PRN PRN PRN Reason: Hypotension during Dialysis Stop: 09/06/19 15:46 Insulin Aspart (Novolog Vial Sliding Scale -) 1 vial SQ ACHS [facility]; Protocol Last Admin: 09/06/19 11:30 Dose: Not Given Labetalol HCl (Normodyne -) 200 mg PO TID [facility] Last Admin: 09/06/19 06:19 Dose: 200 mg Levothyroxine Sodium (Synthroid Injection -) 100 mcg IVPUSH 0700 [facility] Last Admin: 09/06/19 06:19 Dose: 100 mcg Paroxetine HCl (Paxil -) 40 mg PO DAILY [facility] - Objective Vital Signs: Vital Signs Temperature 98.3 F 09/06/19 10:00 Pulse Rate 60 09/06/19 13:30 Respiratory Rate 18 09/06/19 13:30 Blood Pressure 158/85 09/06/19 13:30 O2 Sat by Pulse Oximetry (%) 96 09/06/19 10:00 Constitutional: Yes: No Distress, Calm, Obese Cardiovascular: Yes: Regular Rate and Rhythm Respiratory: Yes: Regular, CTA Bilaterally Gastrointestinal: Yes: Normal Bowel Sounds, Soft Musculoskeletal: Yes: WNL Extremities: Yes: Other Neurological: Yes: Alert, Oriented Psychiatric: Yes: Alert, Oriented Labs: CBC, BMP 09/06/19 09:35 09/06/19 09:35 INR, PTT INR 0.99 (0.83-1.09) 09/05/19 13:45 Assessment/Plan Problem List - Problems (1) LUCY (acute kidney injury) Code(s): N17.9 - ACUTE KIDNEY FAILURE, UNSPECIFIED (2) AMS (altered mental status) Code(s): R41.82 - ALTERED MENTAL STATUS, UNSPECIFIED (3) Acute metabolic encephalopathy Code(s): G93.41 - METABOLIC ENCEPHALOPATHY (4) Acute respiratory failure Code(s): J96.00 - ACUTE RESPIRATORY FAILURE, UNSP W HYPOXIA OR HYPERCAPNIA (5) Anemia Code(s): D64.9 - ANEMIA, UNSPECIFIED (6) COPD (chronic obstructive pulmonary disease) Code(s): J44.9 - CHRONIC OBSTRUCTIVE PULMONARY DISEASE, UNSPECIFIED (7) Diabetes Code(s): E11.9 - TYPE 2 DIABETES MELLITUS WITHOUT COMPLICATIONS (8) HTN (hypertension) Code(s): I10 - ESSENTIAL (PRIMARY) HYPERTENSION (9) Hypercapnic respiratory failure Code(s): J96.92 - RESPIRATORY FAILURE, UNSPECIFIED WITH HYPERCAPNIA (10) Hypothermia Code(s): T68.XXXA - HYPOTHERMIA, INITIAL ENCOUNTER (11) Morbid obesity Code(s): E66.01 - MORBID (SEVERE) OBESITY DUE TO EXCESS CALORIES (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
[2019-09-06] MEDS: PARoxetine HCL 20 MG TABLET PO SCH (13:53)
[2019-09-06] MEDS: amLODIPine BESYLATE 10 MG TABLET (FP) PO SCH (13:53)
[2019-09-06] MEDS: FAMOTIDINE 10 MG TABLET PO SCH (13:54)
[2019-09-06] MEDS ORDERED: FAMOTIDINE 20 MG/50 ML IVPB 20 MG/50 ML MG IVPB SCH (14:30)
--- NOTE | 2019-09-06 14:35 | PN ---
Progress Note, DIVIDING MACHINE OPERATOR - Note Progress Note: Selected Entries 09/04/19 09/04/19 09/04/19 02:00 06:00 09:55 Lunch NPO Supper Temperature 98.9 F 98.6 F 09/04/19 09/04/19 09/04/19 10:00 12:00 15:00 Lunch NPO 25% Supper Temperature 98.4 F 99.2 F 09/04/19 09/04/19 09/05/19 18:00 22:00 02:09 Lunch Supper 50% Temperature 98.5 F 99 F 99.2 F 09/05/19 09/05/19 09/05/19 06:53 10:00 11:10 Lunch Supper Temperature 99.4 F 98.9 F 98.9 F 09/05/19 09/05/19 09/05/19 12:05 15:29 18:00 Lunch Supper Temperature 99.3 F 98.2 F 99.1 F 09/06/19 09/06/19 09/06/19 02:00 06:00 10:00 Lunch Supper Temperature 98.5 F 98.3 F 98.3 F Laboratory Tests 09/06/19 09:35 WBC 8.7 Pt c/o dyscomfort with soft diet. She requested pureed food. She eats reg food at home. REC: Puree/thin liquid Supplements Consider MBS Monday, if difficulty persists
--- NOTE | 2019-09-06 15:08 | PN ---
Progress Note, Physician History of Present Illness: Pt seen and examined at bedside. She tolerated HD. Her son at bedside. He is belligerent with the staff. - Current Medication List Current Medications: Active Medications Acetaminophen (Ofirmev Injection -) 1,000 mg IVPB Q6H PRN PRN Reason: FEVER Amlodipine Besylate (Norvasc -) 10 mg PO DAILY [facility] Last Admin: 09/06/19 13:53 Dose: 10 mg Atorvastatin Calcium (Lipitor -) 40 mg PO HS [facility] Famotidine (Acid Design Engineering Intern) 20 mg PO Q2D [facility] Last Admin: 09/06/19 13:54 Dose: 20 mg Heparin Sodium (Porcine) (Heparin -) 5,000 unit SQ TID [facility] Last Admin: 09/06/19 06:18 Dose: 5,000 unit Hydrocortisone Sodium Succinate (Solu-Cortef -) 50 mg IVPUSH Q8H-IV ZOE Last Admin: 09/06/19 13:51 Dose: 50 mg Sodium Chloride (Normal Saline -) 250 mls @ 3,000 mls/hr IV PRN PRN PRN Reason: Hypotension during Dialysis Meropenem 500 mg/ Dextrose 100 mls @ 200 mls/hr IVPB 0400,1600 [facility] Last Admin: 09/06/19 04:43 Dose: 200 mls/hr Sodium Chloride (Normal Saline -) 250 mls @ 3,000 mls/hr IV PRN PRN PRN Reason: Hypotension during Dialysis Stop: 09/06/19 15:46 Insulin Aspart (Novolog Vial Sliding Scale -) 1 vial SQ ACHS [facility]; Protocol Last Admin: 09/06/19 11:30 Dose: Not Given Labetalol HCl (Normodyne -) 200 mg PO TID [facility] Last Admin: 09/06/19 13:53 Dose: 200 mg Levothyroxine Sodium (Synthroid Injection -) 100 mcg IVPUSH 0700 [facility] Last Admin: 09/06/19 06:19 Dose: 100 mcg Paroxetine HCl (Paxil -) 40 mg PO DAILY [facility] Last Admin: 09/06/19 13:53 Dose: 40 mg - Objective Vital Signs: Vital Signs Temperature 98.3 F 09/06/19 10:00 Pulse Rate 60 09/06/19 13:30 Respiratory Rate 18 09/06/19 13:30 Blood Pressure 158/85 09/06/19 13:30 O2 Sat by Pulse Oximetry (%) 96 09/06/19 10:00 Constitutional: Yes: Calm Eyes: Yes: Conjunctiva Clear HENT: Yes: Atraumatic Cardiovascular: Yes: S1, S2 Respiratory: Yes: CTA Bilaterally Gastrointestinal: Yes: Soft, Abdomen, Obese Genitourinary: Yes: Mahoney Present, Oliguria Musculoskeletal: Yes: Muscle Weakness Edema: Yes Edema: LLE: Trace, RLE: Trace Neurological: Yes: Oriented Psychiatric: Yes: Oriented Labs: CBC, BMP 09/06/19 09:35 09/06/19 09:35 INR, PTT INR 0.99 (0.83-1.09) 09/05/19 13:45 Problem List - Problems (1) AMS (altered mental status) Code(s): R41.82 - ALTERED MENTAL STATUS, UNSPECIFIED (2) Acute metabolic encephalopathy Code(s): G93.41 - METABOLIC ENCEPHALOPATHY (3) Acute renal failure Code(s): N17.9 - ACUTE KIDNEY FAILURE, UNSPECIFIED (4) Diabetes Code(s): E11.9 - TYPE 2 DIABETES MELLITUS WITHOUT COMPLICATIONS (5) Hypercapnic respiratory failure Code(s): J96.92 - RESPIRATORY FAILURE, UNSPECIFIED WITH HYPERCAPNIA (6) Hypothermia Code(s): T68.XXXA - HYPOTHERMIA, INITIAL ENCOUNTER (7) Morbid obesity Code(s): E66.01 - MORBID (SEVERE) OBESITY DUE TO EXCESS CALORIES Assessment/Plan Current Medications Generic Name Dose Route Start Last Admin Trade Name Freq PRN Reason Stop Dose Admin Acetaminophen 1,000 mg 09/05/19 13:00 Ofirmev Injection - IVPB Q6H PRN FEVER Amlodipine Besylate 10 mg 09/06/19 10:00 09/06/19 13:53 Norvasc - PO 10 mg DAILY ZOE Administration Atorvastatin Calcium 40 mg 09/06/19 22:00 Lipitor - PO HS ZOE Famotidine 20 mg 09/06/19 10:00 09/06/19 13:54 Acid Design Engineering Intern PO 20 mg Q2D ZOE Administration Heparin Sodium (Porcine) 5,000 unit 09/05/19 14:00 09/06/19 06:18 Heparin - SQ 5,000 unit TID ZOE Administration Hydrocortisone Sodium Succinate 50 mg 09/05/19 18:00 09/06/19 13:51 Solu-Cortef - IVPUSH 50 mg Q8H-IV ZOE Administration Sodium Chloride 250 mls @ 3,000 mls/hr 09/05/19 13:00 Normal Saline - IV PRN PRN Hypotension during Dialysis Meropenem 500 mg/ Dextrose 100 mls @ 200 mls/hr 09/05/19 16:00 09/06/19 04:43 IVPB 200 mls/hr 0400,1600 ZOE Administration Sodium Chloride 250 mls @ 3,000 mls/hr 09/05/19 15:45 Normal Saline - IV 09/06/19 15:46 PRN PRN Hypotension during Dialysis Insulin Aspart 1 vial 09/05/19 16:30 09/06/19 11:30 Novolog Vial Sliding Scale - SQ Not Given ACHS [facility] Protocol Labetalol HCl 200 mg 09/05/19 14:00 09/06/19 13:53 Normodyne - PO 200 mg TID ZOE Administration Levothyroxine Sodium 100 mcg 09/06/19 07:00 09/06/19 06:19 Synthroid Injection - IVPUSH 100 mcg 0700 ZOE Administration Paroxetine HCl 40 mg 09/06/19 10:00 09/06/19 13:53 Paxil - PO 40 mg DAILY ZOE Administration Laboratory Tests 09/02/19 09/02/19 15:55 15:55 STEVEN M-Shant Pending Free Boutte LC, Quant 149.8 H Free Lambda LC, Quant 124.1 H Free Boutte/Lambda Ratio 1.21 Impression 1. LUCY 2. fluid overload 3. acute respiratory failure 4. hypothyroidism with tsh of 100 5. 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 urine tox pos for mdma 7. mild rhabdo 8. hepatitis B Plan - HD today - renal diet - monitor urine output - kappa and lambda both elevated with normal ratio - monitor urine output - follow repeat spep - serologies negative
--- NOTE | 2019-09-06 15:20 | PN ---
Progress Note (short form) - Note Progress Note: Resting in NAD. Denies CP or SOB. No acute events overnight. Intake & Output 09/03/19 09/04/19 09/05/19 09/06/19 23:59 23:59 23:59 23:59 Intake Total 1468 600 675 200 Output Total 3450 500 700 Balance -1981 100 -25 200 Weight 256 lb 254 lb 14.4 oz Last Vital Signs Temp Pulse Resp BP Pulse Ox 98.3 F 60 18 158/85 96 09/06/19 10:00 09/06/19 13:30 09/06/19 13:30 09/06/19 13:30 09/06/19 10:00 Active Medications Acetaminophen (Ofirmev Injection -) 1,000 mg IVPB Q6H PRN PRN Reason: FEVER Amlodipine Besylate (Norvasc -) 10 mg PO DAILY [facility] Last Admin: 09/06/19 13:53 Dose: 10 mg Atorvastatin Calcium (Lipitor -) 40 mg PO HS [facility]OE Famotidine (Acid Datawarehouse Developer) 20 mg PO Q2D [facility] Last Admin: 09/06/19 13:54 Dose: 20 mg Heparin Sodium (Porcine) (Heparin -) 5,000 unit SQ TID [facility] Last Admin: 09/06/19 06:18 Dose: 5,000 unit Hydrocortisone Sodium Succinate (Solu-Cortef -) 50 mg IVPUSH Q8H-IV [facility]OE Last Admin: 09/06/19 13:51 Dose: 50 mg Sodium Chloride (Normal Saline -) 250 mls @ 3,000 mls/hr IV PRN PRN PRN Reason: Hypotension during Dialysis Meropenem 500 mg/ Dextrose 100 mls @ 200 mls/hr IVPB 0400,1600 [facility] Last Admin: 09/06/19 04:43 Dose: 200 mls/hr Sodium Chloride (Normal Saline -) 250 mls @ 3,000 mls/hr IV PRN PRN PRN Reason: Hypotension during Dialysis Stop: 09/06/19 15:46 Insulin Aspart (Novolog Vial Sliding Scale -) 1 vial SQ ACHS [facility]; Protocol Last Admin: 09/06/19 11:30 Dose: Not Given Labetalol HCl (Normodyne -) 200 mg PO TID [facility] Last Admin: 09/06/19 13:53 Dose: 200 mg Levothyroxine Sodium (Synthroid Injection -) 100 mcg IVPUSH 0700 [facility] Last Admin: 09/06/19 06:19 Dose: 100 mcg Paroxetine HCl (Paxil -) 40 mg PO DAILY [facility] Last Admin: 09/06/19 13:53 Dose: 40 mg Gen: NAD Heart: RRR Lung: decreased breath sounds at the bases Abd: soft, nontender Ext: + edema improving Laboratory Results - last 24 hr 09/05/19 09/05/19 09/05/19 15:53 16:44 21:09 WBC RBC Hgb Hct MCV MCH MCHC RDW Plt Count MPV Absolute Neuts (auto) Neutrophils % Lymphocytes % Monocytes % Eosinophils % Basophils % Nucleated RBC % Sodium Potassium Chloride Carbon Dioxide Anion Gap BUN Creatinine Est GFR (CKD-EPI)AfAm Est GFR (CKD-EPI)NonAf POC Glucometer 177 156 Random Glucose Calcium Magnesium Total Bilirubin AST ALT Alkaline Phosphatase Total Protein Albumin Urine Color Yellow Urine Appearance Turbid Urine pH 5.5 Ur Specific Valentine 1.024 Urine Protein 4+ H Urine Glucose (UA) Trace Urine Ketones Negative Urine Blood 1+ H Urine Nitrite Negative Urine Bilirubin Negative Urine Urobilinogen 0.2 Ur Leukocyte Esterase 1+ H Urine WBC (Auto) 229 Urine RBC (Auto) 15-20 Urine Casts (Auto) 17 U Pathogenic Cast Auto 3-5 U Epithel Cells (Auto) 4.3 Urine Bacteria (Auto) 7.0 Urine Yeast (Auto) Moderate 09/06/19 09/06/19 09/06/19 06:19 09:35 09:35 WBC 8.7 RBC 2.98 L Hgb 9.0 L Hct 26.9 L MCV 90.0 MCH 30.3 MCHC 33.7 RDW 16.2 H Plt Count 264 MPV 9.6 Absolute Neuts (auto) 6.0 Neutrophils % 69.2 Lymphocytes % 27.0 D Monocytes % 3.7 L Eosinophils % 0.0 Basophils % 0.1 D Nucleated RBC % 0 Sodium 136 Potassium 3.8 Chloride 99 Carbon Dioxide 26 Anion Gap 11 BUN 65.9 H Creatinine 5.3 H Est GFR (CKD-EPI)AfAm 9.99 Est GFR (CKD-EPI)NonAf 8.62 POC Glucometer 145 Random Glucose 155 H Calcium 8.1 L Magnesium 2.1 Total Bilirubin 0.5 AST 27 ALT 36 Alkaline Phosphatase 507 H Total Protein 6.4 Albumin 2.2 L Urine Color Urine Appearance Urine pH Ur Specific Valentine Urine Protein Urine Glucose (UA) Urine Ketones Urine Blood Urine Nitrite Urine Bilirubin Urine Urobilinogen Ur Leukocyte Esterase Urine WBC (Auto) Urine RBC (Auto) Urine Casts (Auto) U Pathogenic Cast Auto U Epithel Cells (Auto) Urine Bacteria (Auto) Urine Yeast (Auto) 09/06/19 14:42 WBC RBC Hgb Hct MCV MCH MCHC RDW Plt Count MPV Absolute Neuts (auto) Neutrophils % Lymphocytes % Monocytes % Eosinophils % Basophils % Nucleated RBC % Sodium Potassium Chloride Carbon Dioxide Anion Gap BUN Creatinine Est GFR (CKD-EPI)AfAm Est GFR (CKD-EPI)NonAf POC Glucometer 172 Random Glucose Calcium Magnesium Total Bilirubin AST ALT Alkaline Phosphatase Total Protein Albumin Urine Color Urine Appearance Urine pH Ur Specific Valentine Urine Protein Urine Glucose (UA) Urine Ketones Urine Blood Urine Nitrite Urine Bilirubin Urine Urobilinogen Ur Leukocyte Esterase Urine WBC (Auto) Urine RBC (Auto) Urine Casts (Auto) U Pathogenic Cast Auto U Epithel Cells (Auto) Urine Bacteria (Auto) Urine Yeast (Auto) ASSESSMENT AND PLAN: Acute Hypercapneic Respiratory Failure Myxedema Coma UTI Acute Kidney Injury requiring HD Volume Overload Pleural Effusions COPD DM Anemia - HD per renal with ultrafiltration - monitor urine output, creatinine - ABX Per ID - hydrocortisone & synthroid per Endocrine - inhaled bronchodilators - O2 to keep SpO2 >90% - PO as tolerated - DVT/GI prophylaxis Dr Alonso
[2019-09-06] MEDS ORDERED: MEROPENEM 500 MG VIAL (RESTRICTED TO ID) IVPB ONE (15:39)
[2019-09-06] MEDS ORDERED: DEXTROSE 5%-WATER 100 ML IVPB ONE (15:39)
[2019-09-06] MEDS ORDERED: ACETAMINOPHEN 325 MG TABLET (FP) PO PRN (15:49)
[2019-09-06] MEDS: ATORVASTATIN CA 40 MG TABLET (FP) PO SCH (22:12)
[2019-09-07] MEDS ORDERED: PT OWN MED DRAWER 7, Y5N ONE (02:46)
[2019-09-07] MEDS ORDERED: MEROPENEM 500 MG VIAL (RESTRICTED TO ID) IVPB ONE ×2 (03:21→15:38)
[2019-09-07] MEDS ORDERED: DEXTROSE 5%-WATER 100 ML IVPB ONE ×2 (03:21→15:38)
[2019-09-07] MEDS: MEROPENEM 500 MG in DEXTROSE 5%-WATER 100 ML IVPB SCH ×2 (03:43→15:44)
[2019-09-07] MEDS: INSULIN SLIDING SCALE (NOVOLOG) 1 VIAL SQ SCH ×4 (06:15→21:41)
[2019-09-07] MEDS: HEPARIN NA (PORCINE) 5,000 UNITS/ML 1ML VIAL SQ SCH ×3 (06:34→21:54)
[2019-09-07] MEDS: LABETALOL HCL 100 MG TABLET (FP) PO SCH ×3 (06:34→21:54)
[2019-09-07] MEDS: LEVOTHYROXINE NA 200 MCG TABLET PO SCH (06:34)
[2019-09-07 07:58] LABS: BASO % 0.1 % (0-2.0); HEMOGLOBIN 8.7 GM/dL (10.7-15.3); MCH 29.9 pg (25.7-33.7); MCHC 33.4 g/dl (32.0-36.0); MEAN CELL VOLUME 89.5 fl (80-96); MEAN PLT VOLUME 9.4 fl (7.5-11.1); MONO % 4.7 % (3.8-10.2); NEUT % 61.2 % (42.8-82.8); PLATELET COUNT 255 K/MM3 (134-434); RDW 15.7 % (11.6-15.6); WHITE BLOOD COUNT 8.6 K/mm3 (4.0-10.0)
[2019-09-07 08:26] LABS: ALBUMIN 2.4 g/dl (3.4-5.0); BILIRUBIN,TOTAL 0.4 mg/dL (0.2-1); CALCIUM 7.9 mg/dL (8.5-10.1); CREATININE 3.9 mg/dL (0.55-1.3); POTASSIUM 3.6 mmol/L (3.5-5.1); TOT PROT 6.4 g/dl (6.4-8.2)
[2019-09-07] MEDS: amLODIPine BESYLATE 10 MG TABLET (FP) PO SCH (10:10)
[2019-09-07] MEDS: HYDROCORTISONE SOD SUCCINATE 100 MG/2 ML VIAL IVPUSH SCH ×2 (10:10→21:54)
[2019-09-07] MEDS: PARoxetine HCL 20 MG TABLET PO SCH (10:10)
--- NOTE | 2019-09-07 10:54 | PN ---
Progress Note, Physician History of Present Illness: stable slow rt sided permacath - Current Medication List Current Medications: Active Medications Acetaminophen (Tylenol -) 650 mg PO Q6H PRN PRN Reason: Fever Or Pain Amlodipine Besylate (Norvasc -) 10 mg PO DAILY [facility] Last Admin: 09/07/19 10:10 Dose: 10 mg Atorvastatin Calcium (Lipitor -) 40 mg PO HS [facility] Last Admin: 09/06/19 22:12 Dose: 40 mg Famotidine (Acid Television Camera Operator) 20 mg PO Q2D [facility] Last Admin: 09/06/19 13:54 Dose: 20 mg Heparin Sodium (Porcine) (Heparin -) 5,000 unit SQ TID [facility] Last Admin: 09/07/19 06:34 Dose: 5,000 unit Hydrocortisone Sodium Succinate (Solu-Cortef -) 50 mg IVPUSH BID [facility] Last Admin: 09/07/19 10:10 Dose: 50 mg Sodium Chloride (Normal Saline -) 250 mls @ 3,000 mls/hr IV PRN PRN PRN Reason: Hypotension during Dialysis Meropenem 500 mg/ Dextrose 100 mls @ 200 mls/hr IVPB 0400,1600 [facility] Last Admin: 09/07/19 03:43 Dose: 200 mls/hr Sodium Chloride (Normal Saline -) 250 mls @ 3,000 mls/hr IV PRN PRN PRN Reason: Hypotension during Dialysis Stop: 09/06/19 15:46 Insulin Aspart (Novolog Vial Sliding Scale -) 1 vial SQ ACHS [facility]; Protocol Last Admin: 09/07/19 06:15 Dose: 2 units Labetalol HCl (Normodyne -) 200 mg PO TID [facility] Last Admin: 09/07/19 06:34 Dose: 200 mg Levothyroxine Sodium (Synthroid -) 200 mcg PO DAILY@0700 [facility] Last Admin: 09/07/19 06:34 Dose: 200 mcg Paroxetine HCl (Paxil -) 40 mg PO DAILY [facility] Last Admin: 09/07/19 10:10 Dose: 40 mg - Objective Vital Signs: Vital Signs Temperature 99 F 09/07/19 10:22 Pulse Rate 62 09/07/19 10:22 Respiratory Rate 22 H 09/07/19 10:22 Blood Pressure 128/69 09/07/19 10:22 O2 Sat by Pulse Oximetry (%) 98 09/06/19 22:00 Constitutional: Yes: No Distress, Calm, Obese Cardiovascular: Yes: S1, S2 Respiratory: Yes: Regular, CTA Bilaterally Musculoskeletal: Yes: WNL Extremities: Yes: WNL Neurological: Yes: Alert Psychiatric: Yes: Alert Labs: CBC, BMP 09/07/19 06:50 09/07/19 06:50 INR, PTT INR 0.99 (0.83-1.09) 09/05/19 13:45 Assessment/Plan Problem List - Problems (1) LUCY (acute kidney injury) Code(s): N17.9 - ACUTE KIDNEY FAILURE, UNSPECIFIED (2) AMS (altered mental status) Code(s): R41.82 - ALTERED MENTAL STATUS, UNSPECIFIED (3) Acute metabolic encephalopathy Code(s): G93.41 - METABOLIC ENCEPHALOPATHY (4) Acute respiratory failure Code(s): J96.00 - ACUTE RESPIRATORY FAILURE, UNSP W HYPOXIA OR HYPERCAPNIA (5) Anemia Code(s): D64.9 - ANEMIA, UNSPECIFIED (6) COPD (chronic obstructive pulmonary disease) Code(s): J44.9 - CHRONIC OBSTRUCTIVE PULMONARY DISEASE, UNSPECIFIED (7) Diabetes Code(s): E11.9 - TYPE 2 DIABETES MELLITUS WITHOUT COMPLICATIONS (8) HTN (hypertension) Code(s): I10 - ESSENTIAL (PRIMARY) HYPERTENSION (9) Hypercapnic respiratory failure Code(s): J96.92 - RESPIRATORY FAILURE, UNSPECIFIED WITH HYPERCAPNIA (10) Hypothermia Code(s): T68.XXXA - HYPOTHERMIA, INITIAL ENCOUNTER (11) Morbid obesity Code(s): E66.01 - MORBID (SEVERE) OBESITY DUE TO EXCESS CALORIES (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
--- NOTE | 2019-09-07 11:08 | PN ---
Progress Note (short form) - Note Progress Note: Resting in NAD. Denies CP or SOB. No acute events overnight. Intake & Output 09/04/19 09/05/19 09/06/19 09/07/19 23:59 23:59 23:59 23:59 Intake Total 600 675 500 Output Total 500 700 200 Balance 100 -25 300 Weight 254 lb 14.4 oz Last Vital Signs Temp Pulse Resp BP Pulse Ox 99 F 62 22 H 128/69 98 09/07/19 10:22 09/07/19 10:22 09/07/19 10:22 09/07/19 10:22 09/06/19 22:00 Active Medications Acetaminophen (Tylenol -) 650 mg PO Q6H PRN PRN Reason: Fever Or Pain Amlodipine Besylate (Norvasc -) 10 mg PO DAILY [facility] BEDS [facility] Last Admin: 09/07/19 10:10 Dose: 10 mg Atorvastatin Calcium (Lipitor -) 40 mg PO HS [facility] 234 BEDS [facility] Last Admin: 09/06/19 22:12 Dose: 40 mg Famotidine (Acid Stitch Bonding Machine Tender) 20 mg PO Q2D [facility]S [facility] 234 BEDS AT [facility] Last Admin: 09/06/19 13:54 Dose: 20 mg Heparin Sodium (Porcine) (Heparin -) 5,000 unit SQ TID [facility] 234 BEDS [facility] Last Admin: 09/07/19 06:34 Dose: 5,000 unit Hydrocortisone Sodium Succinate (Solu-Cortef -) 50 mg IVPUSH BID [facility]S [facility]CLUDE 234 BEDS AT [facility] Last Admin: 09/07/19 10:10 Dose: 50 mg Sodium Chloride (Normal Saline -) 250 mls @ 3,000 mls/hr IV PRN PRN PRN Reason: Hypotension during Dialysis Meropenem 500 mg/ Dextrose 100 mls @ 200 mls/hr IVPB 0400,1600 [facility]S [facility]CLUDE 234 BEDS AT [facility] Last Admin: 09/07/19 03:43 Dose: 200 mls/hr Sodium Chloride (Normal Saline -) 250 mls @ 3,000 mls/hr IV PRN PRN PRN Reason: Hypotension during Dialysis Stop: 09/06/19 15:46 Insulin Aspart (Novolog Vial Sliding Scale -) 1 vial SQ ACHS [facility] 234 BEDS AT [facility]; Protocol Last Admin: 09/07/19 06:15 Dose: 2 units Labetalol HCl (Normodyne -) 200 mg PO TID [facility]S [facility] 234 BEDS AT [facility] Last Admin: 09/07/19 06:34 Dose: 200 mg Levothyroxine Sodium (Synthroid -) 200 mcg PO DAILY@0700 [facility]S [facility] 234 BEDS AT [facility] Last Admin: 09/07/19 06:34 Dose: 200 mcg Paroxetine HCl (Paxil -) 40 mg PO DAILY [facility] 234 BEDS AT [facility] Last Admin: 09/07/19 10:10 Dose: 40 mg Gen: NAD Heart: RRR Lung: decreased breath sounds at the bases Abd: soft, nontender Ext: + edema improving Laboratory Results - last 24 hr 09/06/19 09/06/19 09/06/19 14:42 16:33 21:39 WBC RBC Hgb Hct MCV MCH MCHC RDW Plt Count MPV Absolute Neuts (auto) Neutrophils % Lymphocytes % Monocytes % Eosinophils % Basophils % Nucleated RBC % Sodium Potassium Chloride Carbon Dioxide Anion Gap BUN Creatinine Est GFR (CKD-EPI)AfAm Est GFR (CKD-EPI)NonAf POC Glucometer 172 177 199 Random Glucose Calcium Magnesium Total Bilirubin AST ALT Alkaline Phosphatase Total Protein Albumin 09/07/19 09/07/19 09/07/19 06:07 06:50 06:50 WBC 8.6 RBC 2.90 L Hgb 8.7 L Hct 26.0 L MCV 89.5 MCH 29.9 MCHC 33.4 RDW 15.7 H Plt Count 255 MPV 9.4 Absolute Neuts (auto) 5.3 Neutrophils % 61.2 Lymphocytes % 34.0 D Monocytes % 4.7 Eosinophils % 0.0 Basophils % 0.1 Nucleated RBC % 0 Sodium 135 L Potassium 3.6 Chloride 97 L Carbon Dioxide 30 Anion Gap 8 BUN 35.0 H Creatinine 3.9 H Est GFR (CKD-EPI)AfAm 14.47 Est GFR (CKD-EPI)NonAf 12.49 POC Glucometer 155 Random Glucose 156 H Calcium 7.9 L Magnesium 2.0 Total Bilirubin 0.4 AST 25 ALT 36 Alkaline Phosphatase 505 H Total Protein 6.4 Albumin 2.4 L ASSESSMENT AND PLAN: Acute Hypercapneic Respiratory Failure Myxedema Coma UTI Acute Kidney Injury requiring HD Volume Overload Pleural Effusions COPD DM Anemia - HD per renal with ultrafiltration - monitor urine output, creatinine - ABX Per ID - hydrocortisone & synthroid per Endocrine - inhaled bronchodilators - O2 to keep SpO2 >90% - PO as tolerated - DVT/GI prophylaxis Dr Alonso
--- NOTE | 2019-09-07 12:35 | PN ---
Progress Note (short form) - Note Progress Note: Sitting in bed eating lunch Feels goos Vital Signs Period Temp Pulse Resp BP Sys/Amos Pulse Ox Last 24 Hr 98.7 F-99.4 F 60-67 18-22 128-158/69-85 98-98 PE: awake, alert, recognized brother in room Neck: Supple LUngs: CTA CVs: S1S2 Abd: Benign EXt: No edema CMP Sodium 135 mmol/L (136-145) L 09/07/19 06:50 Potassium 3.6 mmol/L (3.5-5.1) 09/07/19 06:50 Chloride 97 mmol/L (98-107) L 09/07/19 06:50 Carbon Dioxide 30 mmol/L (21-32) 09/07/19 06:50 Anion Gap 8 MMOL/L (8-16) 09/07/19 06:50 BUN 35.0 mg/dL (7-18) H 09/07/19 06:50 Creatinine 3.9 mg/dL (0.55-1.3) H 09/07/19 06:50 Est GFR (CKD-EPI)AfAm 14.47 09/07/19 06:50 Est GFR (CKD-EPI)NonAf 12.49 09/07/19 06:50 POC Glucometer 150 UNITS (80-120) 09/07/19 12:15 Random Glucose 156 mg/dL (74-106) H 09/07/19 06:50 Lactic Acid 0.7 mmol/L (0.4-2.0) 08/25/19 11:00 Calcium 7.9 mg/dL (8.5-10.1) L 09/07/19 06:50 Phosphorus 4.2 mg/dL (2.5-4.9) 09/04/19 05:15 Magnesium 2.0 mg/dL (1.8-2.4) 09/07/19 06:50 Total Bilirubin 0.4 mg/dL (0.2-1) 09/07/19 06:50 Direct Bilirubin 0.2 mg/dL (0.0-0.2) 08/26/19 05:54 AST 25 U/L (15-37) 09/07/19 06:50 ALT 36 U/L (13-61) 09/07/19 06:50 Alkaline Phosphatase 505 U/L (45-117) H 09/07/19 06:50 Ammonia 24.90 umol/L (11-32) 08/25/19 11:00 Creatine Kinase 1133 U/L (26-192) H 08/26/19 05:54 Creatine Kinase Index 0.8 % (0.0-5.0) 08/26/19 05:54 CK-MB (CK-2) 9.5 ng/mL (0.5-3.6) H 08/26/19 05:54 Troponin I < 0.02 ng/ml (0.00-0.05) 08/26/19 05:54 B-Natriuretic Peptide 3649.4 pg/ml (5-125) H 08/25/19 11:00 Total Protein 6.4 g/dl (6.4-8.2) 09/07/19 06:50 Total Protein (PEP) 5.6 g/dL (6.0-8.5) L 08/26/19 21:25 Albumin 2.4 g/dl (3.4-5.0) L 09/07/19 06:50 Albumin (PEP) 2.4 gm/dl (2.9-4.4) L 08/26/19 21:25 Globulin 3.2 g/dL (2.2-3.9) 08/26/19 21:25 Albumin/Globulin Ratio 0.8 (0.7-1.7) 08/26/19 21:25 Beta Globulins 0.9 gm/dL (0.7-1.3) 08/26/19 21:25 Beta-Hydroxybutyrate 1.1 mg/dL (0.2-2.8) 08/25/19 11:00 Procalcitonin 1.29 ng/mL (0.00-0.08) H 08/25/19 13:41 TSH 72.30 uIU/ml (0.358-3.74) H 09/05/19 06:35 Free T4 0.24 ng/dl (0.76-1.46) L 08/25/19 11:00 Thyroxine (T4) 3.2 ug/dl (4.5-13.9) L 08/25/19 11:00 Free T3 0.5 pg/ml (2.0-4.4) L 08/25/19 13:24 Resin T3 Uptake 30.3 % (30-39) 08/26/19 05:54 Serum , Qual Negative 08/30/19 15:40 Cortisol Pre Dose Time 40.10 mcg/dL (.) 08/25/19 12:46 Current Medications Generic Name Dose Route Start Last Admin Trade Name Freq PRN Reason Stop Dose Admin Acetaminophen 650 mg 09/06/19 15:49 Tylenol - PO Q6H PRN Fever Or Pain Albuterol Sulfate 1 amp 09/07/19 11:08 Ventolin 0.083% Nebulizer Soln - NEB Q4H PRN SHORT OF BREATH/WHEEZING Amlodipine Besylate 10 mg 09/06/19 10:00 09/07/19 10:10 Norvasc - PO 10 mg DAILY [facility] Administration Atorvastatin Calcium 40 mg 09/06/19 22:00 09/06/19 22:12 Lipitor - PO 40 mg HS [facility] Administration Famotidine 20 mg 09/06/19 10:00 09/06/19 13:54 Acid Big Data Admin PO 20 mg Q2D [facility] Administration Heparin Sodium (Porcine) 5,000 unit 09/05/19 14:00 09/07/19 06:34 Heparin - SQ 5,000 unit TID [facility] Administration Hydrocortisone Sodium Succinate 50 mg 09/06/19 22:00 09/07/19 10:10 Solu-Cortef - IVPUSH 50 mg BID [facility]OE Administration Sodium Chloride 250 mls @ 3,000 mls/hr 09/05/19 13:00 Normal Saline - IV PRN PRN Hypotension during Dialysis Meropenem 500 mg/ Dextrose 100 mls @ 200 mls/hr 09/05/19 16:00 09/07/19 03:43 IVPB 200 mls/hr 0400,1600 [facility]OE Administration Sodium Chloride 250 mls @ 3,000 mls/hr 09/05/19 15:45 Normal Saline - IV 09/06/19 15:46 PRN PRN Hypotension during Dialysis Insulin Aspart 1 vial 09/05/19 16:30 09/07/19 12:20 Novolog Vial Sliding Scale - SQ Not Given ACHS [facility] Protocol Labetalol HCl 200 mg 09/05/19 14:00 09/07/19 06:34 Normodyne - PO 200 mg TID [facility] Administration Levothyroxine Sodium 200 mcg 09/07/19 07:00 09/07/19 06:34 Synthroid - PO 200 mcg DAILY@0700 [facility] Administration Paroxetine HCl 40 mg 09/06/19 10:00 09/07/19 10:10 Paxil - PO 40 mg DAILY [facility] Administration AP: Respiratory failure AMS/ Toxic metabolic encephalopathy Hypothyrodism Throid ca s/p Thyroidectomy Morbid obesity LUCY on CKD DM Anemia with drop in H/H H/o Renal stones Elevated Alk Phos Ventilatory support TSH 60.2, 72.30 now, Rpt TSH with FT4 in 2 to 3 days with FT4 and FT3 Change to LT4 200mcg PO and Taper IV hydrocortiosne: decrease to 25 BID BGM Q 6hrs Novolog SS coverage Will f/u Problem List - Problems (1) AMS (altered mental status) Code(s): R41.82 - ALTERED MENTAL STATUS, UNSPECIFIED (2) Acute metabolic encephalopathy Code(s): G93.41 - METABOLIC ENCEPHALOPATHY (3) Acute renal failure Code(s): N17.9 - ACUTE KIDNEY FAILURE, UNSPECIFIED (4) Diabetes Code(s): E11.9 - TYPE 2 DIABETES MELLITUS WITHOUT COMPLICATIONS (5) Hypercapnic respiratory failure Code(s): J96.92 - RESPIRATORY FAILURE, UNSPECIFIED WITH HYPERCAPNIA (6) Hypothermia Code(s): T68.XXXA - HYPOTHERMIA, INITIAL ENCOUNTER (7) Metabolic acidosis Code(s): E87.2 - ACIDOSIS (8) Morbid obesity Code(s): E66.01 - MORBID (SEVERE) OBESITY DUE TO EXCESS CALORIES
--- NOTE | 2019-09-07 12:58 | PN ---
Physical Exam: SUBJECTIVE: Patient seen and examined at the bedside. present. patient asking to go home. discussed reasons for hospitalization with patient who agrees to stay. OBJECTIVE: Patient is a 54 year old morbid obese female with a significant past medical history of hypertension, hyperlipidemia, diabetes, COPD, anemia, thyroid cancer 6 years ago (no prior admission to [facility]). Patient brought into the ED 08/25/19 for altered mental status, acute shortness of breath, metabolic acidosis. She was found to have an elevated TSH, low t4 and hypothermic (96f- 97-on mariana hugger). Urine was + for ecstasy. on admission had renal failure with a creat of 7.7, bun of 65,mag 1.6, elevated ast/alt. she was admitted to the ICU and since 09/04, is being monitored on med surg unit. Vital Signs Period Temp Pulse Resp BP Sys/Amos Pulse Ox Last 24 Hr 98.7 F-99.4 F 60-67 18-22 128-158/69-85 98-98 GENERAL: awake, alert, in no acute distress. HEAD: Normal with no signs of trauma. EYES: PERRL, extraocular movements intact, sclera anicteric, conjunctiva clear. No ptosis. ENT: Ears normal, nares patent, oropharynx clear without exudates, dry mucous membranes. NECK: Trachea midline, full range of motion, supple. LUNGS: diminished anteriorly on 2 liters of nasal cannula. HEART: Regular rate and rhythm ABDOMEN: Soft, nontender, nondistended, normoactive bowel sounds EXTREMITIES: trace edema bilaterally Laboratory Results - last 24 hr 09/06/19 09/06/19 09/06/19 14:42 16:33 21:39 WBC RBC Hgb Hct MCV MCH MCHC RDW Plt Count MPV Absolute Neuts (auto) Neutrophils % Lymphocytes % Monocytes % Eosinophils % Basophils % Nucleated RBC % Sodium Potassium Chloride Carbon Dioxide Anion Gap BUN Creatinine Est GFR (CKD-EPI)AfAm Est GFR (CKD-EPI)NonAf POC Glucometer 172 177 199 Random Glucose Calcium Magnesium Total Bilirubin AST ALT Alkaline Phosphatase Total Protein Albumin 09/07/19 09/07/19 09/07/19 06:07 06:50 06:50 WBC 8.6 RBC 2.90 L Hgb 8.7 L Hct 26.0 L MCV 89.5 MCH 29.9 MCHC 33.4 RDW 15.7 H Plt Count 255 MPV 9.4 Absolute Neuts (auto) 5.3 Neutrophils % 61.2 Lymphocytes % 34.0 D Monocytes % 4.7 Eosinophils % 0.0 Basophils % 0.1 Nucleated RBC % 0 Sodium 135 L Potassium 3.6 Chloride 97 L Carbon Dioxide 30 Anion Gap 8 BUN 35.0 H Creatinine 3.9 H Est GFR (CKD-EPI)AfAm 14.47 Est GFR (CKD-EPI)NonAf 12.49 POC Glucometer 155 Random Glucose 156 H Calcium 7.9 L Magnesium 2.0 Total Bilirubin 0.4 AST 25 ALT 36 Alkaline Phosphatase 505 H Total Protein 6.4 Albumin 2.4 L 09/07/19 12:15 WBC RBC Hgb Hct MCV MCH MCHC RDW Plt Count MPV Absolute Neuts (auto) Neutrophils % Lymphocytes % Monocytes % Eosinophils % Basophils % Nucleated RBC % Sodium Potassium Chloride Carbon Dioxide Anion Gap BUN Creatinine Est GFR (CKD-EPI)AfAm Est GFR (CKD-EPI)NonAf POC Glucometer 150 Random Glucose Calcium Magnesium Total Bilirubin AST ALT Alkaline Phosphatase Total Protein Albumin Active Medications Generic Name Dose Route Start Last Admin Trade Name Freq PRN Reason Stop Dose Admin Acetaminophen 650 mg 09/06/19 15:49 Tylenol - PO Q6H PRN Fever Or Pain Albuterol Sulfate 1 amp 09/07/19 11:08 Ventolin 0.083% Nebulizer Soln - NEB Q4H PRN SHORT OF BREATH/WHEEZING Amlodipine Besylate 10 mg 09/06/19 10:00 09/07/19 10:10 Norvasc - PO 10 mg DAILY ZOE Administration Atorvastatin Calcium 40 mg 09/06/19 22:00 09/06/19 22:12 Lipitor - PO 40 mg HS ZOE Administration Famotidine 20 mg 09/06/19 10:00 09/06/19 13:54 Acid Dry Primer Powder Blender PO 20 mg Q2D ZOE Administration Heparin Sodium (Porcine) 5,000 unit 09/05/19 14:00 09/07/19 06:34 Heparin - SQ 5,000 unit TID ZOE Administration Hydrocortisone Sodium Succinate 25 mg 09/07/19 22:00 Solu-Cortef - IVPUSH BID ZOE Sodium Chloride 250 mls @ 3,000 mls/hr 09/05/19 13:00 Normal Saline - IV PRN PRN Hypotension during Dialysis Meropenem 500 mg/ Dextrose 100 mls @ 200 mls/hr 09/05/19 16:00 09/07/19 03:43 IVPB 200 mls/hr 0400,1600 ZOE Administration Sodium Chloride 250 mls @ 3,000 mls/hr 09/05/19 15:45 Normal Saline - IV 09/06/19 15:46 PRN PRN Hypotension during Dialysis Insulin Aspart 1 vial 09/05/19 16:30 09/07/19 12:20 Novolog Vial Sliding Scale - SQ Not Given ACHS ZOE Protocol Labetalol HCl 200 mg 09/05/19 14:00 09/07/19 06:34 Normodyne - PO 200 mg TID ZOE Administration Levothyroxine Sodium 200 mcg 09/07/19 07:00 09/07/19 06:34 Synthroid - PO 200 mcg DAILY@0700 ZOE Administration Paroxetine HCl 40 mg 09/06/19 10:00 09/07/19 10:10 Paxil - PO 40 mg DAILY ZOE Administration ASSESSMENT/PLAN: Problem List - Problems (1) Acute metabolic encephalopathy Assessment/Plan: resolved. Code(s): G93.41 - METABOLIC ENCEPHALOPATHY (2) Myxedema coma Assessment/Plan: AMS resolved TSH 72 now, will continue to repeat TSH with FT4 every 4 days Continue IV LT4 100mcg QD and IV hydrocortiosne BGM Q 6hrs Novolog SS coverage being followed by driller and broacher Code(s): E03.5 - MYXEDEMA COMA (3) Hypercapnic respiratory failure Assessment/Plan: Intubated on admission, extubated on 09/03/19, now on 2-3 liters of nasal cannula duonebs q4H prn, albuterol nebulizer Q6H PRN Maintain oxygen levels above 92%, wean off oxygen pre and post prior to discharge Code(s): J96.92 - RESPIRATORY FAILURE, UNSPECIFIED WITH HYPERCAPNIA (4) SOB (shortness of breath) Assessment/Plan: s/p intubation, now on nasal cannula Code(s): R06.02 - SHORTNESS OF BREATH (5) Morbid obesity Assessment/Plan: outpatient follow up Code(s): E66.01 - MORBID (SEVERE) OBESITY DUE TO EXCESS CALORIES (6) AMS (altered mental status) Assessment/Plan: see acute metabolic encephalopathy Code(s): R41.82 - ALTERED MENTAL STATUS, UNSPECIFIED (7) Acute renal failure Assessment/Plan: HD per renal had permacath placed Code(s): N17.9 - ACUTE KIDNEY FAILURE, UNSPECIFIED (8) Metabolic acidosis Assessment/Plan: hydrocortisone taper for possible adrenal insufficiency Code(s): E87.2 - ACIDOSIS (9) Diabetes Assessment/Plan: bgms ac/hs followed by driller and broacher Code(s): E11.9 - TYPE 2 DIABETES MELLITUS WITHOUT COMPLICATIONS (10) Hypothermia Assessment/Plan: ID following and currently on meropenem blood cultures negative and urine cultures + with 50-[address] + sputum/lactose fermenting bacteria/yeast/serratia Code(s): T68.XXXA - HYPOTHERMIA, INITIAL ENCOUNTER (11) Anemia Assessment/Plan: received 1 PRBC since admission Hgb 8.5 continue to monitor Code(s): D64.9 - ANEMIA, UNSPECIFIED (12) HLD (hyperlipidemia) Code(s): E78.5 - HYPERLIPIDEMIA, UNSPECIFIED (13) DVT prophylaxis Assessment/Plan: on heparin tid Code(s): Z29.9 - ENCOUNTER FOR PROPHYLACTIC MEASURES, UNSPECIFIED Visit type - Emergency Visit Emergency Visit: Yes ED Registration Date: 08/25/19 Care time: The patient presented to the Emergency Department on the above date and was hospitalized for further evaluation of their emergent condition. - New Patient This patient is new to me today: No - Critical Care Critical Care patient: No - Discharge Referral Referred to [facility] Med P.C.: No
[2019-09-07] MEDS: ATORVASTATIN CA 40 MG TABLET (FP) PO SCH (21:54)
[2019-09-08] MEDS ORDERED: DEXTROSE 5%-WATER 100 ML IVPB ONE ×2 (03:44→16:58)
[2019-09-08] MEDS ORDERED: MEROPENEM 500 MG VIAL (RESTRICTED TO ID) IVPB ONE ×2 (03:44→16:57)
[2019-09-08] MEDS: MEROPENEM 500 MG in DEXTROSE 5%-WATER 100 ML IVPB SCH ×2 (05:15→17:38)
[2019-09-08] MEDS: HEPARIN NA (PORCINE) 5,000 UNITS/ML 1ML VIAL SQ SCH ×3 (05:38→21:44)
[2019-09-08] MEDS: LABETALOL HCL 100 MG TABLET (FP) PO SCH ×3 (05:38→21:45)
[2019-09-08] MEDS: LEVOTHYROXINE NA 200 MCG TABLET PO SCH (06:13)
[2019-09-08] MEDS: INSULIN SLIDING SCALE (NOVOLOG) 1 VIAL SQ SCH ×4 (06:20→21:46)
[2019-09-08 07:41] LABS: BASO % 0.1 % (0-2.0); HEMATOCRIT 25.7 % (32.4-45.2); HEMOGLOBIN 8.7 GM/dL (10.7-15.3); LYMPH % 36.2 % (8-40); MCH 30.3 pg (25.7-33.7); MCHC 33.7 g/dl (32.0-36.0); MEAN CELL VOLUME 89.7 fl (80-96); MEAN PLT VOLUME 9.2 fl (7.5-11.1); MONO % 4.6 % (3.8-10.2); NEUT % 59.1 % (42.8-82.8); PLATELET COUNT 242 K/MM3 (134-434); RBC 2.86 M/mm3 (3.60-5.2); RDW 15.6 % (11.6-15.6); WHITE BLOOD COUNT 9.2 K/mm3 (4.0-10.0)
[2019-09-08 08:04] LABS: ALBUMIN 2.4 g/dl (3.4-5.0); BILIRUBIN,TOTAL 0.4 mg/dL (0.2-1); BLOOD UREA NITROGEN 46.1 mg/dL (7-18); CALCIUM 7.7 mg/dL (8.5-10.1); CREATININE 4.8 mg/dL (0.55-1.3); MAGNESIUM 1.8 mg/dL (1.8-2.4); POTASSIUM 3.6 mmol/L (3.5-5.1); TOT PROT 6.2 g/dl (6.4-8.2)
--- NOTE | 2019-09-08 09:23 | PN ---
Progress Note (short form) - Note Progress Note: Feels good Denies any complaints Vital Signs Period Temp Pulse Resp BP Sys/Amos Pulse Ox Last 24 Hr 98.2 F-99 F 62-70 20-22 122-139/52-79 98 PE: awake, alert, Neck: Supple LUngs: CTA CVs: S1S2 Abd: Benign EXt: No edema CMP Sodium 133 mmol/L (136-145) L 09/08/19 06:22 Potassium 3.6 mmol/L (3.5-5.1) 09/08/19 06:22 Chloride 95 mmol/L (98-107) L 09/08/19 06:22 Carbon Dioxide 30 mmol/L (21-32) 09/08/19 06:22 Anion Gap 8 MMOL/L (8-16) 09/08/19 06:22 BUN 46.1 mg/dL (7-18) H 09/08/19 06:22 Creatinine 4.8 mg/dL (0.55-1.3) H 09/08/19 06:22 Est GFR (CKD-EPI)AfAm 11.26 09/08/19 06:22 Est GFR (CKD-EPI)NonAf 9.71 09/08/19 06:22 POC Glucometer 180 UNITS (80-120) 09/08/19 05:44 Random Glucose 178 mg/dL (74-106) H 09/08/19 06:22 Lactic Acid 0.7 mmol/L (0.4-2.0) 08/25/19 11:00 Calcium 7.7 mg/dL (8.5-10.1) L 09/08/19 06:22 Phosphorus 4.2 mg/dL (2.5-4.9) 09/04/19 05:15 Magnesium 1.8 mg/dL (1.8-2.4) 09/08/19 06:22 Total Bilirubin 0.4 mg/dL (0.2-1) 09/08/19 06:22 Direct Bilirubin 0.2 mg/dL (0.0-0.2) 08/26/19 05:54 AST 33 U/L (15-37) 09/08/19 06:22 ALT 40 U/L (13-61) 09/08/19 06:22 Alkaline Phosphatase 517 U/L (45-117) H 09/08/19 06:22 Ammonia 24.90 umol/L (11-32) 08/25/19 11:00 Creatine Kinase 1133 U/L (26-192) H 08/26/19 05:54 Creatine Kinase Index 0.8 % (0.0-5.0) 08/26/19 05:54 CK-MB (CK-2) 9.5 ng/mL (0.5-3.6) H 08/26/19 05:54 Troponin I < 0.02 ng/ml (0.00-0.05) 08/26/19 05:54 B-Natriuretic Peptide 3649.4 pg/ml (5-125) H 08/25/19 11:00 Total Protein 6.2 g/dl (6.4-8.2) L 09/08/19 06:22 Total Protein (PEP) 5.6 g/dL (6.0-8.5) L 08/26/19 21:25 Albumin 2.4 g/dl (3.4-5.0) L 09/08/19 06:22 Albumin (PEP) 2.4 gm/dl (2.9-4.4) L 08/26/19 21:25 Globulin 3.2 g/dL (2.2-3.9) 08/26/19 21:25 Albumin/Globulin Ratio 0.8 (0.7-1.7) 08/26/19 21:25 Beta Globulins 0.9 gm/dL (0.7-1.3) 08/26/19 21:25 Beta-Hydroxybutyrate 1.1 mg/dL (0.2-2.8) 08/25/19 11:00 Procalcitonin 1.29 ng/mL (0.00-0.08) H 08/25/19 13:41 TSH 72.30 uIU/ml (0.358-3.74) H 09/05/19 06:35 Free T4 0.24 ng/dl (0.76-1.46) L 08/25/19 11:00 Thyroxine (T4) 3.2 ug/dl (4.5-13.9) L 08/25/19 11:00 Free T3 0.5 pg/ml (2.0-4.4) L 08/25/19 13:24 Resin T3 Uptake 30.3 % (30-39) 08/26/19 05:54 Serum , Qual Negative 08/30/19 15:40 Cortisol Pre Dose Time 40.10 mcg/dL (.) 08/25/19 12:46 Current Medications Generic Name Dose Route Start Last Admin Trade Name Freq PRN Reason Stop Dose Admin Acetaminophen 650 mg 09/06/19 15:49 Tylenol - PO Q6H PRN Fever Or Pain Albuterol Sulfate 1 amp 09/07/19 11:08 Ventolin 0.083% Nebulizer Soln - NEB Q4H PRN SHORT OF BREATH/WHEEZING Amlodipine Besylate 10 mg 09/06/19 10:00 09/07/19 10:10 Norvasc - PO 10 mg DAILY ZOE Administration Atorvastatin Calcium 40 mg 09/06/19 22:00 09/07/19 21:54 Lipitor - PO 40 mg HS ZOE Administration Famotidine 20 mg 09/06/19 10:00 09/06/19 13:54 Acid Combat Engineer PO 20 mg Q2D ZOE Administration Heparin Sodium (Porcine) 5,000 unit 09/05/19 14:00 09/08/19 05:38 Heparin - SQ 5,000 unit TID ZOE Administration Hydrocortisone Sodium Succinate 25 mg 09/07/19 22:00 09/07/19 21:54 Solu-Cortef - IVPUSH 25 mg BID ZOE Administration Sodium Chloride 250 mls @ 3,000 mls/hr 09/05/19 13:00 Normal Saline - IV PRN PRN Hypotension during Dialysis Meropenem 500 mg/ Dextrose 100 mls @ 200 mls/hr 09/05/19 16:00 09/08/19 05:15 IVPB 200 mls/hr 0400,1600 ZOE Administration Sodium Chloride 250 mls @ 3,000 mls/hr 09/05/19 15:45 Normal Saline - IV 09/06/19 15:46 PRN PRN Hypotension during Dialysis Insulin Aspart 1 vial 09/05/19 16:30 09/08/19 06:20 Novolog Vial Sliding Scale - SQ 2 units ACHS ZOE Administration Protocol Labetalol HCl 200 mg 09/05/19 14:00 09/08/19 05:38 Normodyne - PO 200 mg TID ZOE Administration Levothyroxine Sodium 200 mcg 09/07/19 07:00 09/08/19 06:13 Synthroid - PO 200 mcg DAILY@0700 ZOE Administration Paroxetine HCl 40 mg 09/06/19 10:00 09/07/19 10:10 Paxil - PO 40 mg DAILY ZOE Administration AP: Respiratory failure AMS/ Toxic metabolic encephalopathy Hypothyrodism Throid ca s/p Thyroidectomy Morbid obesity LUCY on CKD DM Anemia with drop in H/H H/o Renal stones Elevated Alk Phos Ventilatory support TSH 60.2, 72.30 now, Rpt TSH with FT4 in 2 to 3 days with FT4 and FT3 Change to LT4 200mcg PO and Taper IV hydrocortiosne: Continue 25 BID for next 24 h rs BGM QACHS Novolog SS coverage Will f/u Problem List - Problems (1) AMS (altered mental status) Code(s): R41.82 - ALTERED MENTAL STATUS, UNSPECIFIED (2) Acute metabolic encephalopathy Code(s): G93.41 - METABOLIC ENCEPHALOPATHY (3) Acute renal failure Code(s): N17.9 - ACUTE KIDNEY FAILURE, UNSPECIFIED (4) Diabetes Code(s): E11.9 - TYPE 2 DIABETES MELLITUS WITHOUT COMPLICATIONS (5) Hypercapnic respiratory failure Code(s): J96.92 - RESPIRATORY FAILURE, UNSPECIFIED WITH HYPERCAPNIA (6) Hypothermia Code(s): T68.XXXA - HYPOTHERMIA, INITIAL ENCOUNTER (7) Metabolic acidosis Code(s): E87.2 - ACIDOSIS (8) Morbid obesity Code(s): E66.01 - MORBID (SEVERE) OBESITY DUE TO EXCESS CALORIES
[2019-09-08] MEDS: ALBUTEROL SO4 0.083% IH SOL 2.5 MG/3 ML VIAL.NEB. NEB PRN ×2 (09:30→15:05)
--- NOTE | 2019-09-08 11:00 | PN ---
Progress Note (short form) - Note Progress Note: Resting in NAD. Denies CP or SOB. No acute events overnight. Intake & Output 09/05/19 09/06/19 09/07/19 09/08/19 23:59 23:59 23:59 23:59 Intake Total 675 500 250 100 Output Total 700 200 Balance -25 300 250 100 Last Vital Signs Temp Pulse Resp BP Pulse Ox 98.6 F 69 22 H 125/71 98 09/08/19 10:33 09/08/19 10:33 09/08/19 10:33 09/08/19 10:33 09/07/19 21:00 Active Medications Acetaminophen (Tylenol -) 650 mg PO Q6H PRN PRN Reason: Fever Or Pain Albuterol Sulfate (Ventolin 0.083% Nebulizer Soln -) 1 amp NEB Q4H PRN PRN Reason: SHORT OF BREATH/WHEEZING Last Admin: 09/08/19 09:30 Dose: 1 amp Amlodipine Besylate (Norvasc -) 10 mg PO DAILY [facility] Last Admin: 09/07/19 10:10 Dose: 10 mg Atorvastatin Calcium (Lipitor -) 40 mg PO HS [facility] Last Admin: 09/07/19 21:54 Dose: 40 mg Famotidine (Acid Granulator Operator) 20 mg PO Q2D [facility] Last Admin: 09/06/19 13:54 Dose: 20 mg Heparin Sodium (Porcine) (Heparin -) 5,000 unit SQ TID [facility] Last Admin: 09/08/19 05:38 Dose: 5,000 unit Hydrocortisone Sodium Succinate (Solu-Cortef -) 25 mg IVPUSH BID [facility] Last Admin: 09/07/19 21:54 Dose: 25 mg Sodium Chloride (Normal Saline -) 250 mls @ 3,000 mls/hr IV PRN PRN PRN Reason: Hypotension during Dialysis Meropenem 500 mg/ Dextrose 100 mls @ 200 mls/hr IVPB 0400,1600 [facility] Last Admin: 09/08/19 05:15 Dose: 200 mls/hr Sodium Chloride (Normal Saline -) 250 mls @ 3,000 mls/hr IV PRN PRN PRN Reason: Hypotension during Dialysis Stop: 09/06/19 15:46 Insulin Aspart (Novolog Vial Sliding Scale -) 1 vial SQ ACHS [facility]; Protocol Last Admin: 09/08/19 06:20 Dose: 2 units Labetalol HCl (Normodyne -) 200 mg PO TID [facility] Last Admin: 09/08/19 05:38 Dose: 200 mg Levothyroxine Sodium (Synthroid -) 200 mcg PO DAILY@0700 [facility] Last Admin: 09/08/19 06:13 Dose: 200 mcg Paroxetine HCl (Paxil -) 40 mg PO DAILY [facility] Last Admin: 09/07/19 10:10 Dose: 40 mg Gen: NAD Heart: RRR Lung: decreased breath sounds at the bases Abd: soft, nontender Ext: + edema improving Laboratory Results - last 24 hr 09/07/19 09/07/19 09/08/19 12:15 21:40 05:44 WBC RBC Hgb Hct MCV MCH MCHC RDW Plt Count MPV Absolute Neuts (auto) Neutrophils % Lymphocytes % Monocytes % Eosinophils % Basophils % Nucleated RBC % Sodium Potassium Chloride Carbon Dioxide Anion Gap BUN Creatinine Est GFR (CKD-EPI)AfAm Est GFR (CKD-EPI)NonAf POC Glucometer 150 241 180 Random Glucose Calcium Magnesium Total Bilirubin AST ALT Alkaline Phosphatase Total Protein Albumin 09/08/19 09/08/19 06:22 06:22 WBC 9.2 RBC 2.86 L Hgb 8.7 L Hct 25.7 L MCV 89.7 MCH 30.3 MCHC 33.7 RDW 15.6 Plt Count 242 MPV 9.2 Absolute Neuts (auto) 5.4 Neutrophils % 59.1 Lymphocytes % 36.2 Monocytes % 4.6 Eosinophils % 0.0 Basophils % 0.1 Nucleated RBC % 0 Sodium 133 L Potassium 3.6 Chloride 95 L Carbon Dioxide 30 Anion Gap 8 BUN 46.1 H Creatinine 4.8 H Est GFR (CKD-EPI)AfAm 11.26 Est GFR (CKD-EPI)NonAf 9.71 POC Glucometer Random Glucose 178 H Calcium 7.7 L Magnesium 1.8 Total Bilirubin 0.4 AST 33 ALT 40 Alkaline Phosphatase 517 H Total Protein 6.2 L Albumin 2.4 L ASSESSMENT AND PLAN: Acute Hypercapneic Respiratory Failure Myxedema Coma UTI Acute Kidney Injury requiring HD Volume Overload Pleural Effusions COPD DM Anemia - HD per renal with ultrafiltration - monitor urine output, creatinine - ABX Per ID - hydrocortisone & synthroid per Endocrine - inhaled bronchodilators - O2 to keep SpO2 >90% - PO as tolerated - DVT/GI prophylaxis Dr Alonso
[2019-09-08] MEDS: FAMOTIDINE 10 MG TABLET PO SCH (11:46)
[2019-09-08] MEDS: amLODIPine BESYLATE 10 MG TABLET (FP) PO SCH (11:46)
[2019-09-08] MEDS: PARoxetine HCL 20 MG TABLET PO SCH (11:46)
[2019-09-08] MEDS: HYDROCORTISONE SOD SUCCINATE 100 MG/2 ML VIAL IVPUSH SCH ×2 (11:47→21:45)
[2019-09-08] MEDS ORDERED: SODIUM CHLORIDE 250 ML IV PRN (13:00)
[2019-09-08] MEDS ORDERED: EPOETIN ALFA 3,000 UNIT, EPOETIN ALFA 2,000 UNIT IVPUSH ONE (13:00)
--- NOTE | 2019-09-08 13:35 | PN ---
Physical Exam: SUBJECTIVE: Patient getting dialysis. OBJECTIVE: Patient is a 54 year old morbid obese female with a significant past medical history of hypertension, hyperlipidemia, diabetes, COPD, anemia, thyroid cancer 6 years ago (no prior admission to [facility]). Patient brought into the ED 08/25/19 for altered mental status, acute shortness of breath, metabolic acidosis. She was found to have an elevated TSH, low t4 and hypothermic (96f- 97-on mariana hugger). Urine was + for ecstasy. on admission had renal failure with a creat of 7.7, bun of 65,mag 1.6, elevated ast/alt. she was admitted to the ICU and since 09/04, is being monitored on med surg unit. Vital Signs Period Temp Pulse Resp BP Sys/Amos Pulse Ox Last 24 Hr 98.2 F-98.8 F 60-70 18-22 122-170/52-103 98 GENERAL: awake, alert, in no acute distress. HEAD: Normal with no signs of trauma. EYES: PERRL, extraocular movements intact, sclera anicteric, conjunctiva clear. No ptosis. ENT: Ears normal, nares patent, oropharynx clear without exudates, dry mucous membranes. NECK: Trachea midline, full range of motion, supple. LUNGS: diminished anteriorly on 2 liters of nasal cannula. HEART: Regular rate and rhythm ABDOMEN: Soft, nontender, nondistended, normoactive bowel sounds EXTREMITIES: trace edema bilaterally Laboratory Results - last 24 hr 09/07/19 09/08/19 09/08/19 21:40 05:44 06:22 WBC 9.2 RBC 2.86 L Hgb 8.7 L Hct 25.7 L MCV 89.7 MCH 30.3 MCHC 33.7 RDW 15.6 Plt Count 242 MPV 9.2 Absolute Neuts (auto) 5.4 Neutrophils % 59.1 Lymphocytes % 36.2 Monocytes % 4.6 Eosinophils % 0.0 Basophils % 0.1 Nucleated RBC % 0 Sodium Potassium Chloride Carbon Dioxide Anion Gap BUN Creatinine Est GFR (CKD-EPI)AfAm Est GFR (CKD-EPI)NonAf POC Glucometer 241 180 Random Glucose Calcium Magnesium Total Bilirubin AST ALT Alkaline Phosphatase Total Protein Albumin 09/08/19 06:22 WBC RBC Hgb Hct MCV MCH MCHC RDW Plt Count MPV Absolute Neuts (auto) Neutrophils % Lymphocytes % Monocytes % Eosinophils % Basophils % Nucleated RBC % Sodium 133 L Potassium 3.6 Chloride 95 L Carbon Dioxide 30 Anion Gap 8 BUN 46.1 H Creatinine 4.8 H Est GFR (CKD-EPI)AfAm 11.26 Est GFR (CKD-EPI)NonAf 9.71 POC Glucometer Random Glucose 178 H Calcium 7.7 L Magnesium 1.8 Total Bilirubin 0.4 AST 33 ALT 40 Alkaline Phosphatase 517 H Total Protein 6.2 L Albumin 2.4 L Active Medications Generic Name Dose Route Start Last Admin Trade Name Freq PRN Reason Stop Dose Admin Acetaminophen 650 mg 09/06/19 15:49 Tylenol - PO Q6H PRN Fever Or Pain Albuterol Sulfate 1 amp 09/07/19 11:08 09/08/19 09:30 Ventolin 0.083% Nebulizer Soln - NEB 1 amp Q4H PRN Administration SHORT OF BREATH/WHEEZING Amlodipine Besylate 10 mg 09/06/19 10:00 09/08/19 11:46 Norvasc - PO 10 mg DAILY ZOE Administration Atorvastatin Calcium 40 mg 09/06/19 22:00 09/07/19 21:54 Lipitor - PO 40 mg HS ZOE Administration Famotidine 20 mg 09/06/19 10:00 09/08/19 11:46 Acid Electrophysiology Technologist PO 20 mg Q2D ZOE Administration Heparin Sodium (Porcine) 5,000 unit 09/05/19 14:00 09/08/19 05:38 Heparin - SQ 5,000 unit TID ZOE Administration Hydrocortisone Sodium Succinate 25 mg 09/07/19 22:00 09/08/19 11:47 Solu-Cortef - IVPUSH 25 mg BID ZOE Administration Meropenem 500 mg/ Dextrose 100 mls @ 200 mls/hr 09/05/19 16:00 09/08/19 05:15 IVPB 200 mls/hr 0400,1600 ZOE Administration Sodium Chloride 250 mls @ 3,000 mls/hr 09/08/19 13:00 Normal Saline - IV PRN PRN Hypotension during Dialysis Insulin Aspart 1 vial 09/05/19 16:30 09/08/19 11:49 Novolog Vial Sliding Scale - SQ Not Given ACHS ZOE Protocol Labetalol HCl 200 mg 09/05/19 14:00 09/08/19 05:38 Normodyne - PO 200 mg TID ZOE Administration Levothyroxine Sodium 200 mcg 09/07/19 07:00 09/08/19 06:13 Synthroid - PO 200 mcg DAILY@0700 ZOE Administration Paroxetine HCl 40 mg 09/06/19 10:00 09/08/19 11:46 Paxil - PO 40 mg DAILY ZOE Administration ASSESSMENT/PLAN: Problem List - Problems (1) Acute metabolic encephalopathy Assessment/Plan: resolved. Code(s): G93.41 - METABOLIC ENCEPHALOPATHY (2) Myxedema coma Assessment/Plan: AMS resolved TSH 72 now, will continue to repeat TSH with FT4 every 4 days Continue IV LT4 100mcg QD and IV hydrocortiosne BGM Q 6hrs Novolog SS coverage being followed by sediment remediation consultant Code(s): E03.5 - MYXEDEMA COMA (3) Hypercapnic respiratory failure Assessment/Plan: Intubated on admission, extubated on 09/03/19, now on 2-3 liters of nasal cannula duonebs q4H prn, albuterol nebulizer Q6H PRN Maintain oxygen levels above 92%, wean off oxygen pre and post prior to discharge Code(s): J96.92 - RESPIRATORY FAILURE, UNSPECIFIED WITH HYPERCAPNIA (4) SOB (shortness of breath) Assessment/Plan: s/p intubation, now on nasal cannula Code(s): R06.02 - SHORTNESS OF BREATH (5) Morbid obesity Assessment/Plan: outpatient follow up Code(s): E66.01 - MORBID (SEVERE) OBESITY DUE TO EXCESS CALORIES (6) AMS (altered mental status) Assessment/Plan: see acute metabolic encephalopathy Code(s): R41.82 - ALTERED MENTAL STATUS, UNSPECIFIED (7) Acute renal failure Assessment/Plan: dialysis today, to be set up for outpatient dialysis Code(s): N17.9 - ACUTE KIDNEY FAILURE, UNSPECIFIED (8) Metabolic acidosis Assessment/Plan: hydrocortisone taper for possible adrenal insufficiency Code(s): E87.2 - ACIDOSIS (9) Diabetes Assessment/Plan: bgms ac/hs followed by sediment remediation consultant Code(s): E11.9 - TYPE 2 DIABETES MELLITUS WITHOUT COMPLICATIONS (10) Hypothermia Assessment/Plan: ID following and currently on meropenem blood cultures negative and urine cultures + with 50-[address] + sputum/lactose fermenting bacteria/yeast/serratia Code(s): T68.XXXA - HYPOTHERMIA, INITIAL ENCOUNTER (11) Anemia Assessment/Plan: received 1 PRBC since admission Hgb 8.5 continue to monitor Code(s): D64.9 - ANEMIA, UNSPECIFIED (12) HLD (hyperlipidemia) Code(s): E78.5 - HYPERLIPIDEMIA, UNSPECIFIED (13) DVT prophylaxis Assessment/Plan: on heparin tid Code(s): Z29.9 - ENCOUNTER FOR PROPHYLACTIC MEASURES, UNSPECIFIED Visit type - Emergency Visit Emergency Visit: Yes ED Registration Date: 08/25/19 Care time: The patient presented to the Emergency Department on the above date and was hospitalized for further evaluation of their emergent condition. - New Patient This patient is new to me today: No - Critical Care Critical Care patient: No - Discharge Referral Referred to [facility] Med P.C[facility] No
--- NOTE | 2019-09-08 14:04 | PN ---
Progress Note (short form) - Note Progress Note: RENAL Pt currently on hemodialysis appears comfortable though sleeping Last Vital Signs Temp Pulse Resp BP Pulse Ox 98.6 F 60 18 151/81 98 09/08/19 10:33 09/08/19 12:15 09/08/19 12:15 09/08/19 12:15 09/07/19 21:00 lungs clear anteriorly cvs s1s2 rr +ani abd soft obese ext no edema neuro a+ox3 CBC, BMP 09/08/19 06:22 09/08/19 06:22 Current Medications Generic Name Dose Route Start Last Admin Trade Name Freq PRN Reason Stop Dose Admin Acetaminophen 650 mg 09/06/19 15:49 Tylenol - PO Q6H PRN Fever Or Pain Albuterol Sulfate 1 amp 09/07/19 11:08 09/08/19 09:30 Ventolin 0.083% Nebulizer Soln - NEB 1 amp Q4H PRN Administration SHORT OF BREATH/WHEEZING Amlodipine Besylate 10 mg 09/06/19 10:00 09/08/19 11:46 Norvasc - PO 10 mg DAILY ZOE Administration Atorvastatin Calcium 40 mg 09/06/19 22:00 09/07/19 21:54 Lipitor - PO 40 mg HS ZOE Administration Famotidine 20 mg 09/06/19 10:00 09/08/19 11:46 Acid Rock Dust Sprayer PO 20 mg Q2D ZOE Administration Heparin Sodium (Porcine) 5,000 unit 09/05/19 14:00 09/08/19 05:38 Heparin - SQ 5,000 unit TID ZOE Administration Hydrocortisone Sodium Succinate 25 mg 09/07/19 22:00 09/08/19 11:47 Solu-Cortef - IVPUSH 25 mg BID ZOE Administration Meropenem 500 mg/ Dextrose 100 mls @ 200 mls/hr 09/05/19 16:00 09/08/19 05:15 IVPB 200 mls/hr 0400,1600 ZOE Administration Sodium Chloride 250 mls @ 3,000 mls/hr 09/08/19 13:00 Normal Saline - IV PRN PRN Hypotension during Dialysis Insulin Aspart 1 vial 09/05/19 16:30 09/08/19 11:49 Novolog Vial Sliding Scale - SQ Not Given ACHS [facility]OE Protocol Labetalol HCl 200 mg 09/05/19 14:00 12/29/19 05:38 Normodyne - PO 200 mg TID ZOE Administration Levothyroxine Sodium 200 mcg 09/07/19 07:00 09/08/19 06:13 Synthroid - PO 200 mcg DAILY@0700 [facility]OE Administration Paroxetine HCl 40 mg 09/06/19 10:00 09/08/19 11:46 Paxil - PO 40 mg DAILY ZOE Administration Impression 1. LUCY 2. fluid overload 3. acute respiratory failure 4. hypothyroidism with tsh of 100 5. 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 urine tox pos for mdma 7. mild rhabdo 8. hepatitis B s Ag pos 9.had mdma in tox screen 10. nephrotic range proteinuria Plan - HD today- 3k bath - renal diet - monitor urine output - kappa and lambda both elevated with normal ratio- not diagnostic - monitor urine output - follow repeat spep -check c3, c4, -kidney biopsy when stable MV MV
--- NOTE | 2019-09-08 14:32 | PN ---
Progress Note, Physician History of Present Illness: stable no new issues - Current Medication List Current Medications: Active Medications Acetaminophen (Tylenol -) 650 mg PO Q6H PRN PRN Reason: Fever Or Pain Albuterol Sulfate (Ventolin 0.083% Nebulizer Soln -) 1 amp NEB Q4H PRN PRN Reason: SHORT OF BREATH/WHEEZING Last Admin: 09/08/19 09:30 Dose: 1 amp Amlodipine Besylate (Norvasc -) 10 mg PO DAILY [facility] Last Admin: 09/08/19 11:46 Dose: 10 mg Atorvastatin Calcium (Lipitor -) 40 mg PO HS [facility] Last Admin: 09/07/19 21:54 Dose: 40 mg Famotidine (Acid Diesel Fleet Mechanic) 20 mg PO Q2D [facility] Last Admin: 09/08/19 11:46 Dose: 20 mg Heparin Sodium (Porcine) (Heparin -) 5,000 unit SQ TID [facility] Last Admin: 09/08/19 05:38 Dose: 5,000 unit Hydrocortisone Sodium Succinate (Solu-Cortef -) 25 mg IVPUSH BID [facility] Last Admin: 09/08/19 11:47 Dose: 25 mg Meropenem 500 mg/ Dextrose 100 mls @ 200 mls/hr IVPB 0400,1600 [facility] Last Admin: 09/08/19 05:15 Dose: 200 mls/hr Sodium Chloride (Normal Saline -) 250 mls @ 3,000 mls/hr IV PRN PRN PRN Reason: Hypotension during Dialysis Insulin Aspart (Novolog Vial Sliding Scale -) 1 vial SQ ACHS [facility]; Protocol Last Admin: 09/08/19 11:49 Dose: Not Given Labetalol HCl (Normodyne -) 200 mg PO TID [facility] Last Admin: 09/08/19 05:38 Dose: 200 mg Levothyroxine Sodium (Synthroid -) 200 mcg PO DAILY@0700 [facility] Last Admin: 09/08/19 06:13 Dose: 200 mcg Paroxetine HCl (Paxil -) 40 mg PO DAILY [facility] Last Admin: 09/08/19 11:46 Dose: 40 mg - Objective Vital Signs: Vital Signs Temperature 98.6 F 09/08/19 10:33 Pulse Rate 62 09/08/19 14:15 Respiratory Rate 18 09/08/19 14:15 Blood Pressure 142/80 09/08/19 14:15 O2 Sat by Pulse Oximetry (%) 98 09/07/19 21:00 Constitutional: Yes: No Distress, Calm Respiratory: Yes: Regular, CTA Bilaterally Gastrointestinal: Yes: Normal Bowel Sounds, Soft Musculoskeletal: Yes: Other Neurological: Yes: Alert, Other Psychiatric: Yes: Other Labs: CBC, BMP 09/08/19 06:22 09/08/19 06:22 INR, PTT INR 0.99 (0.83-1.09) 09/05/19 13:45 Assessment/Plan Problem List - Problems (1) LUCY (acute kidney injury) Code(s): N17.9 - ACUTE KIDNEY FAILURE, UNSPECIFIED (2) AMS (altered mental status) Code(s): R41.82 - ALTERED MENTAL STATUS, UNSPECIFIED (3) Acute metabolic encephalopathy Code(s): G93.41 - METABOLIC ENCEPHALOPATHY (4) Acute respiratory failure Code(s): J96.00 - ACUTE RESPIRATORY FAILURE, UNSP W HYPOXIA OR HYPERCAPNIA (5) Anemia Code(s): D64.9 - ANEMIA, UNSPECIFIED (6) COPD (chronic obstructive pulmonary disease) Code(s): J44.9 - CHRONIC OBSTRUCTIVE PULMONARY DISEASE, UNSPECIFIED (7) Diabetes Code(s): E11.9 - TYPE 2 DIABETES MELLITUS WITHOUT COMPLICATIONS (8) HTN (hypertension) Code(s): I10 - ESSENTIAL (PRIMARY) HYPERTENSION (9) Hypercapnic respiratory failure Code(s): J96.92 - RESPIRATORY FAILURE, UNSPECIFIED WITH HYPERCAPNIA (10) Hypothermia Code(s): T68.XXXA - HYPOTHERMIA, INITIAL ENCOUNTER (11) Morbid obesity Code(s): E66.01 - MORBID (SEVERE) OBESITY DUE TO EXCESS CALORIES (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 - MYXEDEMA COMA (13) Thyroid cancer Code(s): C73 - MALIGNANT NEOPLASM OF THYROID GLAND Assessment/Plan Acute respiratory failure on MV/sedation Acute metabolic encephalopathy AMS Myxedema coma DM LUCY on CKD Obesity Hx of thyroid CA s/p thyroidectomy HTN HLD COPD Anemia vap plan continue current mgmt rest as per the team
[2019-09-08] MEDS: ATORVASTATIN CA 40 MG TABLET (FP) PO SCH (21:45)
[2019-09-09] MEDS ORDERED: MEROPENEM 500 MG VIAL (RESTRICTED TO ID) IVPB ONE (03:27)
[2019-09-09] MEDS ORDERED: DEXTROSE 5%-WATER 100 ML IVPB ONE (03:28)
[2019-09-09] MEDS: MEROPENEM 500 MG in DEXTROSE 5%-WATER 100 ML IVPB SCH (03:49)
[2019-09-09] MEDS: INSULIN SLIDING SCALE (NOVOLOG) 1 VIAL SQ SCH ×3 (06:14→16:52)
[2019-09-09] MEDS: HEPARIN NA (PORCINE) 5,000 UNITS/ML 1ML VIAL SQ SCH ×3 (06:14→22:03)
[2019-09-09] MEDS: LEVOTHYROXINE NA 200 MCG TABLET PO SCH (06:15)
[2019-09-09] MEDS: LABETALOL HCL 100 MG TABLET (FP) PO SCH ×3 (06:15→22:04)
[2019-09-09 08:30] LABS: BASO % 0.4 % (0-2.0); HEMATOCRIT 26.8 % (32.4-45.2); LYMPH % 42.4 % (8-40); MCH 29.9 pg (25.7-33.7); MCHC 33.5 g/dl (32.0-36.0); MEAN CELL VOLUME 89.4 fl (80-96); MEAN PLT VOLUME 8.8 fl (7.5-11.1); MONO % 4.4 % (3.8-10.2); NEUT % 52.8 % (42.8-82.8); PLATELET COUNT 250 K/MM3 (134-434); RDW 15.4 % (11.6-15.6); WHITE BLOOD COUNT 10.4 K/mm3 (4.0-10.0)
[2019-09-09 10:04] LABS: ALBUMIN 2.3 g/dl (3.4-5.0); BILIRUBIN,TOTAL 0.6 mg/dL (0.2-1); BLOOD UREA NITROGEN 29.7 mg/dL (7-18); CALCIUM 8.1 mg/dL (8.5-10.1); CREATININE 3.6 mg/dL (0.55-1.3); MAGNESIUM 1.8 mg/dL (1.8-2.4); POTASSIUM 3.5 mmol/L (3.5-5.1); TOT PROT 6.1 g/dl (6.4-8.2)
--- NOTE | 2019-09-09 11:17 | PN ---
Progress Note, [employer] - Note Progress Note: Selected Entries 09/08/19 09/08/19 09/08/19 10:00 10:33 15:44 Breakfast 25% Supper Temperature 98.6 F 98.8 F 09/08/19 09/09/19 18:00 02:00 Breakfast Supper 0 Temperature 98.9 F 99.7 F H Laboratory Tests 09/08/19 09/09/19 06:22 08:05 WBC 9.2 10.4 H Pt denies Odynophagia or Dysphagia. Reassessed with thin liquid and cracker. Did well without symptoms reported or observed.
--- NOTE | 2019-09-09 11:42 | PN ---
Physical Exam: SUBJECTIVE: Patient seen and examined at the bedside. patient is awake, alert and demanding to leave now. spoke to her that she is not ready for discharge because we need to still assign her a dialysis center, she may need home oxygen and her insurance is not showing up as active currently. Assured her we are actively working on a safe discharge for her. risks of leaving ama discussed in detail with patient, sudden cardiac arrest, renal failure leading to coma are risks. OBJECTIVE: long discussion with daughter and HCP, Sharla Luu and discussed POC. at home patient ambulates without assistance and is independent with all adls. SW attempting to re-instate insurance and arrange an outpatient HD center. Vital Signs Period Temp Pulse Resp BP Sys/Amos Pulse Ox Last 24 Hr 98.8 F-99.7 F 60-76 18-22 138-170/66-103 98 GENERAL: The patient is awake, alert, and fully oriented, agitated HEAD: Normal with no signs of trauma. EYES: PERRL, extraocular movements intact, sclera anicteric, conjunctiva clear. No ptosis. ENT: Ears normal, nares patent, oropharynx clear without exudates, moist mucous membranes. NECK: Trachea midline, full range of motion, supple. LUNGS: Breath sounds equal, clear to auscultation bilaterally HEART: Regular rate and rhythm ABDOMEN: Soft, nontender, nondistended, normoactive bowel sounds, no guarding, no rebound, no hepatosplenomegaly, no masses. EXTREMITIES: lower ext trace edema NEUROLOGICAL: awake, alert, agitated PSYCH: Normal mood, normal affect. SKIN: Warm, dry, normal turgor, no rashes or lesions noted Laboratory Results - last 24 hr 09/08/19 09/09/19 09/09/19 21:28 06:00 06:00 WBC RBC Hgb Hct MCV MCH MCHC RDW Plt Count MPV Absolute Neuts (auto) Neutrophils % Lymphocytes % Monocytes % Eosinophils % Basophils % Nucleated RBC % Sodium 134 L Potassium 3.5 Chloride 97 L Carbon Dioxide 29 Anion Gap 8 BUN 29.7 H Creatinine 3.6 H Est GFR (CKD-EPI)AfAm 15.94 Est GFR (CKD-EPI)NonAf 13.76 POC Glucometer 172 Random Glucose 135 H Calcium 8.1 L Magnesium 1.8 Total Bilirubin 0.6 AST 29 ALT 35 Alkaline Phosphatase 483 H Total Protein 6.1 L Albumin 2.3 L TSH 114.00 H Free T4 0.75 L 09/09/19 09/09/19 06:13 08:05 WBC 10.4 H RBC 3.00 L Hgb 9.0 L Hct 26.8 L MCV 89.4 MCH 29.9 MCHC 33.5 RDW 15.4 Plt Count 250 MPV 8.8 Absolute Neuts (auto) 5.5 Neutrophils % 52.8 Lymphocytes % 42.4 H Monocytes % 4.4 Eosinophils % 0.0 Basophils % 0.4 D Nucleated RBC % 0 Sodium Potassium Chloride Carbon Dioxide Anion Gap BUN Creatinine Est GFR (CKD-EPI)AfAm Est GFR (CKD-EPI)NonAf POC Glucometer 147 Random Glucose Calcium Magnesium Total Bilirubin AST ALT Alkaline Phosphatase Total Protein Albumin TSH Free T4 Active Medications Generic Name Dose Route Start Last Admin Trade Name Freq PRN Reason Stop Dose Admin Acetaminophen 650 mg 09/06/19 15:49 Tylenol - PO Q6H PRN Fever Or Pain Albuterol Sulfate 1 amp 09/07/19 11:08 09/08/19 15:05 Ventolin 0.083% Nebulizer Soln - NEB 1 amp Q4H PRN Administration SHORT OF BREATH/WHEEZING Amlodipine Besylate 10 mg 09/06/19 10:00 09/08/19 11:46 Norvasc - PO 10 mg DAILY ZOE Administration Atorvastatin Calcium 40 mg 09/06/19 22:00 09/08/19 21:45 Lipitor - PO 40 mg HS ZOE Administration Famotidine 20 mg 09/06/19 10:00 09/08/19 11:46 Acid Clearing Distribution Clerk PO 20 mg Q2D ZOE Administration Heparin Sodium (Porcine) 5,000 unit 09/05/19 14:00 09/09/19 06:14 Heparin - SQ 5,000 unit TID [facility]OE Administration Hydrocortisone Sodium Succinate 25 mg 09/07/19 22:00 09/08/19 21:45 Solu-Cortef - IVPUSH 25 mg BID [facility]OE Administration Meropenem 500 mg/ Dextrose 100 mls @ 200 mls/hr 09/05/19 16:00 09/09/19 03:49 IVPB 200 mls/hr 0400,1600 ZOE Administration Sodium Chloride 250 mls @ 3,000 mls/hr 09/08/19 13:00 Normal Saline - IV PRN PRN Hypotension during Dialysis Insulin Aspart 1 vial 09/05/19 16:30 09/09/19 06:14 Novolog Vial Sliding Scale - SQ Not Given ACHS [facility] Protocol Labetalol HCl 200 mg 09/05/19 14:00 09/09/19 06:15 Normodyne - PO 200 mg TID ZOE Administration Levothyroxine Sodium 200 mcg 09/07/19 07:00 09/09/19 06:15 Synthroid - PO 200 mcg DAILY@0700 [facility]OE Administration Paroxetine HCl 40 mg 09/06/19 10:00 09/08/19 11:46 Paxil - PO 40 mg DAILY ZOE Administration ASSESSMENT/PLAN: Problem List - Problems (1) Acute metabolic encephalopathy Assessment/Plan: resolved. Code(s): G93.41 - METABOLIC ENCEPHALOPATHY (2) Myxedema coma Assessment/Plan: AMS resolved Taper IV hydrocortiosne: Change 25 QD If pt is discharged, Pt go go home on LT4 225 and Prednisone 10 mg QD for 2 days , then 5mg Qd for 2 days,and DC after that per Dr. Patterson Further, repat TFT in 2 weeks and change dose as necessary. Novolog SS coverage being followed by binder and wrapper packer Code(s): E03.5 - MYXEDEMA COMA (3) Hypercapnic respiratory failure Assessment/Plan: Intubated on admission, extubated on 09/03/19, now on 2-3 liters of nasal cannula duonebs q4H prn, albuterol nebulizer Q6H PRN Maintain oxygen levels above 92%, wean off oxygen pre and post prior to discharge Code(s): J96.92 - RESPIRATORY FAILURE, UNSPECIFIED WITH HYPERCAPNIA (4) SOB (shortness of breath) Assessment/Plan: s/p intubation, now on nasal cannula Code(s): R06.02 - SHORTNESS OF BREATH (5) Morbid obesity Assessment/Plan: outpatient follow up Code(s): E66.01 - MORBID (SEVERE) OBESITY DUE TO EXCESS CALORIES (6) AMS (altered mental status) Assessment/Plan: see acute metabolic encephalopathy Code(s): R41.82 - ALTERED MENTAL STATUS, UNSPECIFIED (7) Acute renal failure Assessment/Plan: dialysis tomorrow Code(s): N17.9 - ACUTE KIDNEY FAILURE, UNSPECIFIED (8) Metabolic acidosis Assessment/Plan: hydrocortisone taper for possible adrenal insufficiency Code(s): E87.2 - ACIDOSIS (9) Diabetes Assessment/Plan: bgms ac/hs followed by binder and wrapper packer Code(s): E11.9 - TYPE 2 DIABETES MELLITUS WITHOUT COMPLICATIONS (10) Hypothermia Assessment/Plan: ID following and currently on meropenem blood cultures negative and urine cultures + with 50-[address] + sputum/lactose fermenting bacteria/yeast/serratia Code(s): T68.XXXA - HYPOTHERMIA, INITIAL ENCOUNTER (11) Anemia Assessment/Plan: received 1 PRBC since admission Hgb 8.5 continue to monitor Code(s): D64.9 - ANEMIA, UNSPECIFIED (12) HLD (hyperlipidemia) Code(s): E78.5 - HYPERLIPIDEMIA, UNSPECIFIED (13) DVT prophylaxis Assessment/Plan: on heparin tid Code(s): Z29.9 - ENCOUNTER FOR PROPHYLACTIC MEASURES, UNSPECIFIED Visit type - Emergency Visit Emergency Visit: Yes ED Registration Date: 08/25/19 Care time: The patient presented to the Emergency Department on the above date and was hospitalized for further evaluation of their emergent condition. - New Patient This patient is new to me today: No - Critical Care Critical Care patient: No - Discharge Referral Referred to [facility] No
[2019-09-09] MEDS: PARoxetine HCL 20 MG TABLET PO SCH (12:08)
[2019-09-09] MEDS: amLODIPine BESYLATE 10 MG TABLET (FP) PO SCH (12:09)
[2019-09-09] MEDS: HYDROCORTISONE SOD SUCCINATE 100 MG/2 ML VIAL IVPUSH SCH (12:09)
--- NOTE | 2019-09-09 12:12 | PN ---
Progress Note, Physician History of Present Illness: stable no new issues - Current Medication List Current Medications: Active Medications Acetaminophen (Tylenol -) 650 mg PO Q6H PRN PRN Reason: Fever Or Pain Albuterol Sulfate (Ventolin 0.083% Nebulizer Soln -) 1 amp NEB Q4H PRN PRN Reason: SHORT OF BREATH/WHEEZING Last Admin: 09/08/19 15:05 Dose: 1 amp Amlodipine Besylate (Norvasc -) 10 mg PO DAILY [facility] Last Admin: 09/08/19 11:46 Dose: 10 mg Atorvastatin Calcium (Lipitor -) 40 mg PO HS [facility] Last Admin: 09/08/19 21:45 Dose: 40 mg Famotidine (Acid Orchard Hand) 20 mg PO Q2D [facility] Last Admin: 09/08/19 11:46 Dose: 20 mg Heparin Sodium (Porcine) (Heparin -) 5,000 unit SQ TID [facility] Last Admin: 09/09/19 06:14 Dose: 5,000 unit Hydrocortisone Sodium Succinate (Solu-Cortef -) 25 mg IVPUSH BID [facility] Last Admin: 09/08/19 21:45 Dose: 25 mg Sodium Chloride (Normal Saline -) 250 mls @ 3,000 mls/hr IV PRN PRN PRN Reason: Hypotension during Dialysis Insulin Aspart (Novolog Vial Sliding Scale -) 1 vial SQ ACHS [facility]; Protocol Last Admin: 09/09/19 06:14 Dose: Not Given Labetalol HCl (Normodyne -) 200 mg PO TID [facility] Last Admin: 09/09/19 06:15 Dose: 200 mg Levothyroxine Sodium (Synthroid -) 200 mcg PO DAILY@0700 [facility] Last Admin: 09/09/19 06:15 Dose: 200 mcg Paroxetine HCl (Paxil -) 40 mg PO DAILY [facility] Last Admin: 09/08/19 11:46 Dose: 40 mg - Objective Vital Signs: Vital Signs Temperature 99.7 F H 09/09/19 02:00 Pulse Rate 69 09/09/19 06:00 Respiratory Rate 22 H 09/09/19 06:00 Blood Pressure 154/66 09/09/19 06:00 O2 Sat by Pulse Oximetry (%) 98 09/08/19 21:00 Constitutional: Yes: No Distress, Calm Cardiovascular: Yes: S1, S2 Respiratory: Yes: Regular, CTA Bilaterally Gastrointestinal: Yes: Normal Bowel Sounds, Soft Musculoskeletal: Yes: WNL Extremities: Yes: Other Neurological: Yes: Alert Psychiatric: Yes: Alert Labs: CBC, BMP 09/09/19 08:05 09/09/19 06:00 INR, PTT INR 0.99 (0.83-1.09) 09/05/19 13:45 Assessment/Plan Problem List - Problems (1) LUCY (acute kidney injury) Code(s): N17.9 - ACUTE KIDNEY FAILURE, UNSPECIFIED (2) AMS (altered mental status) Code(s): R41.82 - ALTERED MENTAL STATUS, UNSPECIFIED (3) Acute metabolic encephalopathy Code(s): G93.41 - METABOLIC ENCEPHALOPATHY (4) Acute respiratory failure Code(s): J96.00 - ACUTE RESPIRATORY FAILURE, UNSP W HYPOXIA OR HYPERCAPNIA (5) Anemia Code(s): D64.9 - ANEMIA, UNSPECIFIED (6) COPD (chronic obstructive pulmonary disease) Code(s): J44.9 - CHRONIC OBSTRUCTIVE PULMONARY DISEASE, UNSPECIFIED (7) Diabetes Code(s): E11.9 - TYPE 2 DIABETES MELLITUS WITHOUT COMPLICATIONS (8) HTN (hypertension) Code(s): I10 - ESSENTIAL (PRIMARY) HYPERTENSION (9) Hypercapnic respiratory failure Code(s): J96.92 - RESPIRATORY FAILURE, UNSPECIFIED WITH HYPERCAPNIA (10) Hypothermia Code(s): T68.XXXA - HYPOTHERMIA, INITIAL ENCOUNTER (11) Morbid obesity Code(s): E66.01 - MORBID (SEVERE) OBESITY DUE TO EXCESS CALORIES (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 - MYXEDEMA COMA (13) Thyroid cancer Code(s): C73 - MALIGNANT NEOPLASM OF THYROID GLAND Assessment/Plan Acute respiratory failure on MV/sedation Acute metabolic encephalopathy AMS Myxedema coma DM LUCY on CKD Obesity Hx of thyroid CA s/p thyroidectomy HTN HLD COPD Anemia vap plan continue current mgmt rest as per the team will stop abx physio incentive gio
--- NOTE | 2019-09-09 12:34 | PN ---
Progress Note (short form) - Note Progress Note: PULMONARY Awake, alert. Denies shortness of breath. Wants to go home. Vital Signs Period Temp Pulse Resp BP Sys/Amos Pulse Ox Last 24 Hr 98.8 F-99.7 F 62-76 18-22 138-156/66-94 98 Gen: NAD at rest Heart: RRR Lung: decreased breath sounds at the bases Abd: soft, nontender Ext: no edema CBC, BMP 09/09/19 08:05 09/09/19 06:00 Active Medications Acetaminophen (Tylenol -) 650 mg PO Q6H PRN PRN Reason: Fever Or Pain Albuterol Sulfate (Ventolin 0.083% Nebulizer Soln -) 1 amp NEB Q4H PRN PRN Reason: SHORT OF BREATH/WHEEZING Last Admin: 09/08/19 15:05 Dose: 1 amp Amlodipine Besylate (Norvasc -) 10 mg PO DAILY [facility] Last Admin: 09/09/19 12:09 Dose: 10 mg Atorvastatin Calcium (Lipitor -) 40 mg PO HS [facility] Last Admin: 09/08/19 21:45 Dose: 40 mg Famotidine (Acid Security Installation Sales Technician) 20 mg PO Q2D [facility] Last Admin: 09/08/19 11:46 Dose: 20 mg Heparin Sodium (Porcine) (Heparin -) 5,000 unit SQ TID [facility] Last Admin: 09/09/19 06:14 Dose: 5,000 unit Hydrocortisone Sodium Succinate (Solu-Cortef -) 25 mg IVPUSH BID [facility] Last Admin: 09/09/19 12:09 Dose: 25 mg Sodium Chloride (Normal Saline -) 250 mls @ 3,000 mls/hr IV PRN PRN PRN Reason: Hypotension during Dialysis Insulin Aspart (Novolog Vial Sliding Scale -) 1 vial SQ ACHS [facility]; Protocol Last Admin: 09/09/19 12:19 Dose: Not Given Labetalol HCl (Normodyne -) 200 mg PO TID [facility] Last Admin: 09/09/19 06:15 Dose: 200 mg Levothyroxine Sodium (Synthroid -) 200 mcg PO DAILY@0700 [facility] Last Admin: 09/09/19 06:15 Dose: 200 mcg Paroxetine HCl (Paxil -) 40 mg PO DAILY [facility] Last Admin: 09/09/19 12:08 Dose: 40 mg A/P Acute Hypercapneic Respiratory Failure Myxedema Coma UTI Acute Kidney Injury requiring HD Volume Overload Pleural Effusions COPD DM Anemia - HD per renal with ultrafiltration - monitor urine output, creatinine - completed antibiotics - hydrocortisone & synthroid per endocrine - inhaled bronchodilators - O2 to keep SpO2 >90% - PO as tolerated - DVT/GI prophylaxis
--- NOTE | 2019-09-09 13:03 | PN ---
Progress Note (short form) - Note Progress Note: Feels good Denies any complaints Vital Signs Period Temp Pulse Resp BP Sys/Amos Pulse Ox Last 24 Hr 98.8 F-99.7 F 62-76 18-22 138-154/66-86 98 PE: awake, alert, Neck: Supple LUngs: CTA CVs: S1S2 Abd: Benign EXt: No edema CMP Sodium 134 mmol/L (136-145) L 09/09/19 06:00 Potassium 3.5 mmol/L (3.5-5.1) 09/09/19 06:00 Chloride 97 mmol/L (98-107) L 09/09/19 06:00 Carbon Dioxide 29 mmol/L (21-32) 09/09/19 06:00 Anion Gap 8 MMOL/L (8-16) 09/09/19 06:00 BUN 29.7 mg/dL (7-18) H 09/09/19 06:00 Creatinine 3.6 mg/dL (0.55-1.3) H 09/09/19 06:00 Est GFR (CKD-EPI)AfAm 15.94 09/09/19 06:00 Est GFR (CKD-EPI)NonAf 13.76 09/09/19 06:00 POC Glucometer 146 UNITS (80-120) 09/09/19 12:18 Random Glucose 135 mg/dL (74-106) H 09/09/19 06:00 Lactic Acid 0.7 mmol/L (0.4-2.0) 08/25/19 11:00 Calcium 8.1 mg/dL (8.5-10.1) L 09/09/19 06:00 Phosphorus 4.2 mg/dL (2.5-4.9) 09/04/19 05:15 Magnesium 1.8 mg/dL (1.8-2.4) 09/09/19 06:00 Total Bilirubin 0.6 mg/dL (0.2-1) 09/09/19 06:00 Direct Bilirubin 0.2 mg/dL (0.0-0.2) 08/26/19 05:54 AST 29 U/L (15-37) 09/09/19 06:00 ALT 35 U/L (13-61) 09/09/19 06:00 Alkaline Phosphatase 483 U/L (45-117) H 09/09/19 06:00 Ammonia 24.90 umol/L (11-32) 08/25/19 11:00 Creatine Kinase 1133 U/L (26-192) H 08/26/19 05:54 Creatine Kinase Index 0.8 % (0.0-5.0) 08/26/19 05:54 CK-MB (CK-2) 9.5 ng/mL (0.5-3.6) H 08/26/19 05:54 Troponin I < 0.02 ng/ml (0.00-0.05) 08/26/19 05:54 B-Natriuretic Peptide 3649.4 pg/ml (5-125) H 08/25/19 11:00 Total Protein 6.1 g/dl (6.4-8.2) L 09/09/19 06:00 Total Protein (PEP) 5.6 g/dL (6.0-8.5) L 08/26/19 21:25 Albumin 2.3 g/dl (3.4-5.0) L 09/09/19 06:00 Albumin (PEP) 2.4 gm/dl (2.9-4.4) L 08/26/19 21:25 Globulin 3.2 g/dL (2.2-3.9) 08/26/19 21:25 Albumin/Globulin Ratio 0.8 (0.7-1.7) 08/26/19 21:25 Beta Globulins 0.9 gm/dL (0.7-1.3) 08/26/19 21:25 Beta-Hydroxybutyrate 1.1 mg/dL (0.2-2.8) 08/25/19 11:00 Procalcitonin 1.29 ng/mL (0.00-0.08) H 08/25/19 13:41 TSH 114.00 uIU/ml (0.358-3.74) H 09/09/19 06:00 Free T4 0.75 ng/dl (0.76-1.46) L 09/09/19 06:00 Thyroxine (T4) 3.2 ug/dl (4.5-13.9) L 08/25/19 11:00 Free T3 0.5 pg/ml (2.0-4.4) L 08/25/19 13:24 Resin T3 Uptake 30.3 % (30-39) 08/26/19 05:54 Serum , Qual Negative 08/30/19 15:40 Cortisol Pre Dose Time 40.10 mcg/dL (.) 08/25/19 12:46 Current Medications Generic Name Dose Route Start Last Admin Trade Name Freq PRN Reason Stop Dose Admin Acetaminophen 650 mg 09/06/19 15:49 Tylenol - PO Q6H PRN Fever Or Pain Albuterol Sulfate 1 amp 09/07/19 11:08 09/08/19 15:05 Ventolin 0.083% Nebulizer Soln - NEB 1 amp Q4H PRN Administration SHORT OF BREATH/WHEEZING Amlodipine Besylate 10 mg 09/06/19 10:00 09/09/19 12:09 Norvasc - PO 10 mg DAILY [facility] Administration Atorvastatin Calcium 40 mg 09/06/19 22:00 09/08/19 21:45 Lipitor - PO 40 mg HS [facility] Administration Famotidine 20 mg 09/06/19 10:00 09/08/19 11:46 Acid Rug Cleaner PO 20 mg Q2D [facility] Administration Heparin Sodium (Porcine) 5,000 unit 09/05/19 14:00 09/09/19 06:14 Heparin - SQ 5,000 unit TID [facility] Administration Hydrocortisone Sodium Succinate 25 mg 09/07/19 22:00 09/09/19 12:09 Solu-Cortef - IVPUSH 25 mg BID [facility] Administration Sodium Chloride 250 mls @ 3,000 mls/hr 09/08/19 13:00 Normal Saline - IV PRN PRN Hypotension during Dialysis Insulin Aspart 1 vial 09/05/19 16:30 09/09/19 12:19 Novolog Vial Sliding Scale - SQ Not Given ACHS [facility] Protocol Labetalol HCl 200 mg 09/05/19 14:00 09/09/19 06:15 Normodyne - PO 200 mg TID [facility] Administration Levothyroxine Sodium 200 mcg 09/07/19 07:00 09/09/19 06:15 Synthroid - PO 200 mcg DAILY@0700 ZOE Administration Paroxetine HCl 40 mg 09/06/19 10:00 09/09/19 12:08 Paxil - PO 40 mg DAILY ZOE Administration AP: Respiratory failure AMS/ Toxic metabolic encephalopathy Hypothyrodism Throid ca s/p Thyroidectomy Morbid obesity LUCY on CKD DM Anemia with drop in H/H H/o Renal stones Elevated Alk Phos Ventilatory support TSH 114.0 now , from 60.2, 72.30 . FT4 0.75 from 0.24 Change to LT4 2250mcg PO Taper IV hydrocortiosne: Change 25 QD If pt is discharged, Pt go go home on LT4 225 and Prednisone 10 mg QD for 2 days , then 5mg Qd for 2 days,and DC after that. Reeat TFT in 2 weeks and change dose as necessary. Predose Cortisol level was 40. BGM QACHS Novolog SS coverage Will f/u Problem List - Problems (1) AMS (altered mental status) Code(s): R41.82 - ALTERED MENTAL STATUS, UNSPECIFIED (2) Acute metabolic encephalopathy Code(s): G93.41 - METABOLIC ENCEPHALOPATHY (3) Acute renal failure Code(s): N17.9 - ACUTE KIDNEY FAILURE, UNSPECIFIED (4) Diabetes Code(s): E11.9 - TYPE 2 DIABETES MELLITUS WITHOUT COMPLICATIONS (5) Hypercapnic respiratory failure Code(s): J96.92 - RESPIRATORY FAILURE, UNSPECIFIED WITH HYPERCAPNIA (6) Hypothermia Code(s): T68.XXXA - HYPOTHERMIA, INITIAL ENCOUNTER (7) Metabolic acidosis Code(s): E87.2 - ACIDOSIS (8) Morbid obesity Code(s): E66.01 - MORBID (SEVERE) OBESITY DUE TO EXCESS CALORIES
--- NOTE | 2019-09-09 13:45 | PN ---
Progress Note (short form) - Note Progress Note: 54 year old female history of HTN, HLD, DM COPD, Anemia thyroid cancer. Patient came with ams and had CHF, renal failure , anemia . aJmes was intubated, she was hypothermic. She is on sedation . Ganesh has ct head and there is mild dilation of ventricles. She is oriented and now feeling better and waiting to be discharged. NEUROLOGICAL EXAMINATION neck is supple , hypertensive, alert oriented x 3( knows her name where she is , is able to tell me today is september 06 but mistake on year) pupils reactive no face asymmetry moving all ext , generalized proximal weakness rest of neuro exam is not possible ct head reviewed and mild ventricular dilatation and this could be due to intercurrent illness Assessment/Plan2 year old female history of HTN, HLD, DM COPD, Anemia thyroid cancer. Patient came with ams and had CHF, renal failure , anemia . she is able to walk around and waiting to be dicharged Plan: supportive care and follow up outpatient Thanking you so much Hill Hayden MD
[2019-09-09] MEDS ORDERED: SODIUM CHLORIDE 250 ML IV PRN (14:04)
--- NOTE | 2019-09-09 14:04 | PN ---
Progress Note, Physician History of Present Illness: Pt seen and examined at bedside. She is awake and alert. She says that she wants to go home. She is anxious today. She denies shortness of breath. - Current Medication List Current Medications: Active Medications Acetaminophen (Tylenol -) 650 mg PO Q6H PRN PRN Reason: Fever Or Pain Albuterol Sulfate (Ventolin 0.083% Nebulizer Soln -) 1 amp NEB Q4H PRN PRN Reason: SHORT OF BREATH/WHEEZING Last Admin: 09/08/19 15:05 Dose: 1 amp Amlodipine Besylate (Norvasc -) 10 mg PO DAILY [facility] Last Admin: 09/09/19 12:09 Dose: 10 mg Atorvastatin Calcium (Lipitor -) 40 mg PO HS [facility] Last Admin: 09/08/19 21:45 Dose: 40 mg Famotidine (Acid Head Bucker) 20 mg PO Q2D [facility] Last Admin: 09/08/19 11:46 Dose: 20 mg Heparin Sodium (Porcine) (Heparin -) 5,000 unit SQ TID [facility] Last Admin: 09/09/19 06:14 Dose: 5,000 unit Hydrocortisone Sodium Succinate (Solu-Cortef -) 25 mg IVPUSH DAILY [facility] Sodium Chloride (Normal Saline -) 250 mls @ 3,000 mls/hr IV PRN PRN PRN Reason: Hypotension during Dialysis Insulin Aspart (Novolog Vial Sliding Scale -) 1 vial SQ ACHS [facility]; Protocol Last Admin: 09/09/19 12:19 Dose: Not Given Labetalol HCl (Normodyne -) 200 mg PO TID [facility] Last Admin: 09/09/19 06:15 Dose: 200 mg Levothyroxine Sodium 200 mcg/ (Levothyroxine Sodium 25 mcg) 225 mcg PO DAILY@ 0700 [facility] Paroxetine HCl (Paxil -) 40 mg PO DAILY [facility] Last Admin: 09/09/19 12:08 Dose: 40 mg - Objective Vital Signs: Vital Signs Temperature 99.7 F H 09/09/19 02:00 Pulse Rate 66 09/09/19 13:52 Respiratory Rate 22 H 09/09/19 06:00 Blood Pressure 154/66 09/09/19 06:00 O2 Sat by Pulse Oximetry (%) 96 09/09/19 13:52 Constitutional: Yes: Anxious Eyes: Yes: Conjunctiva Clear HENT: Yes: Atraumatic Cardiovascular: Yes: S1, S2 Respiratory: Yes: On Nasal O2 Gastrointestinal: Yes: Soft, Abdomen, Obese Genitourinary: Yes: WNL Musculoskeletal: Yes: WNL Edema: Yes Edema: LLE: Trace, RLE: Trace Integumentary: Yes: Tattoos Neurological: Yes: Oriented Psychiatric: Yes: Oriented Labs: CBC, BMP 09/09/19 08:05 09/09/19 06:00 INR, PTT INR 0.99 (0.83-1.09) 09/05/19 13:45 Problem List - Problems (1) AMS (altered mental status) Code(s): R41.82 - ALTERED MENTAL STATUS, UNSPECIFIED (2) Acute metabolic encephalopathy Code(s): G93.41 - METABOLIC ENCEPHALOPATHY (3) Acute renal failure Code(s): N17.9 - ACUTE KIDNEY FAILURE, UNSPECIFIED (4) Diabetes Code(s): E11.9 - TYPE 2 DIABETES MELLITUS WITHOUT COMPLICATIONS (5) Hypercapnic respiratory failure Code(s): J96.92 - RESPIRATORY FAILURE, UNSPECIFIED WITH HYPERCAPNIA (6) Hypothermia Code(s): T68.XXXA - HYPOTHERMIA, INITIAL ENCOUNTER (7) Morbid obesity Code(s): E66.01 - MORBID (SEVERE) OBESITY DUE TO EXCESS CALORIES Assessment/Plan Current Medications Generic Name Dose Route Start Last Admin Trade Name Freq PRN Reason Stop Dose Admin Acetaminophen 650 mg 09/06/19 15:49 Tylenol - PO Q6H PRN Fever Or Pain Albuterol Sulfate 1 amp 09/07/19 11:08 09/08/19 15:05 Ventolin 0.083% Nebulizer Soln - NEB 1 amp Q4H PRN Administration SHORT OF BREATH/WHEEZING Amlodipine Besylate 10 mg 09/06/19 10:00 09/09/19 12:09 Norvasc - PO 10 mg DAILY [facility] Administration Atorvastatin Calcium 40 mg 09/06/19 22:00 09/08/19 21:45 Lipitor - PO 40 mg HS [facility] Administration Famotidine 20 mg 09/06/19 10:00 09/08/19 11:46 Acid Head Bucker PO 20 mg Q2D [facility] Administration Heparin Sodium (Porcine) 5,000 unit 09/05/19 14:00 09/09/19 06:14 Heparin - SQ 5,000 unit TID [facility] Administration Hydrocortisone Sodium Succinate 25 mg 09/10/19 08:00 Solu-Cortef - IVPUSH DAILY [facility] Sodium Chloride 250 mls @ 3,000 mls/hr 09/08/19 13:00 Normal Saline - IV PRN PRN Hypotension during Dialysis Insulin Aspart 1 vial 09/05/19 16:30 09/09/19 12:19 Novolog Vial Sliding Scale - SQ Not Given ACHS [facility] Protocol Labetalol HCl 200 mg 09/05/19 14:00 09/09/19 06:15 Normodyne - PO 200 mg TID [facility] Administration Levothyroxine Sodium 200 mcg/ 225 mcg 09/10/19 07:00 Levothyroxine Sodium 25 mcg PO DAILY@0700 [facility] Paroxetine HCl 40 mg 09/06/19 10:00 09/09/19 12:08 Paxil - PO 40 mg DAILY [facility] Administration Impression 1. LUCY 2. fluid overload 3. acute respiratory failure 4. hypothyroidism with tsh of 100 5. 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 urine tox pos for mdma 7. mild rhabdo 8. hepatitis B Plan - next HD tomorrow - renal diet - follow c3 and c4 - biopsy once stable if she agrees - follow repeat spep - serologies negative
--- NOTE | 2019-09-09 16:34 | OP ---
DATE OF OPERATION: 09/05/2019 PROCEDURE: Placement of Perma-Cath. PREOPERATIVE DIAGNOSIS: Renal failure. POSTOPERATIVE DIAGNOSIS: Renal failure. ANESTHESIA: Fractional. ANESTHESIOLOGIST: Shawn Sandoval CRNA OPERATIVE FINDINGS: Ultrasound evaluation of the right internal jugular vein showed it to be patent with a small amount of thrombus along the wall of the vein. OPERATIVE PROCEDURE: Following routine patient identification with side and site verification, intravenous sedation was established. The right neck and chest were prepped with ChloraPrep. Time-out was performed. Using real-time duplex imaging, the right internal jugular vein was identified. Lidocaine was infiltrated in the skin lateral to the vein, and the vein was cannulated with a micropuncture needle under ultrasound guidance. A wire was passed proximally into the superior vena cava and the needle exchanged for a 5-Swedish catheter. A J-tip wire was then advanced through the right atrium into the inferior vena cava. Additional lidocaine was infiltrated in the chest wall and a stab wound made. A 19-cm tip to cuff Perma-Cath was advanced with a tunneler from chest to neck. Tract around the wire was dilated, and the introducer was placed over the wire into the superior vena cava. The wire and the dilator were removed. The Perma-Cath was advanced through the introducer into the right atrium, and the introducer was peeled away. Each lumen was aspirated for blood and flushed with a saline and heparin saline. The neck wound was closed with subcuticular suture of 3-0 Vicryl, and the catheter was sutured to the skin at the exit site with 3-0 nylon. Sterile dressing were applied, and the patient was taken to the recovery room in stable condition. Kat [id number]
[2019-09-09] MEDS: ATORVASTATIN CA 40 MG TABLET (FP) PO SCH (22:03)
[2019-09-10] MEDS: INSULIN SLIDING SCALE (NOVOLOG) 1 VIAL SQ SCH ×5 (00:12→22:34)
[2019-09-10] MEDS ORDERED: LEVOTHYROXINE NA 25 MCG TABLET (FP) ONE (05:42)
[2019-09-10] MEDS ORDERED: LEVOTHYROXINE NA 200 MCG TABLET ONE (05:42)
[2019-09-10] MEDS: LABETALOL HCL 100 MG TABLET (FP) PO SCH ×3 (06:44→22:34)
[2019-09-10] MEDS: HEPARIN NA (PORCINE) 5,000 UNITS/ML 1ML VIAL SQ SCH ×4 (06:44→22:51)
[2019-09-10] MEDS: LEVOTHYROXINE 200 MCG, LEVOTHYROXINE 25 MCG PO SCH (06:45)
[2019-09-10] MEDS ORDERED: LEVOTHYROXINE NA 200 MCG TABLET PO SCH (07:00)
[2019-09-10 07:56] LABS: BASO % 0.4 % (0-2.0); HEMATOCRIT 26.8 % (32.4-45.2); HEMOGLOBIN 9.1 GM/dL (10.7-15.3); LYMPH % 41.2 % (8-40); MCH 30.2 pg (25.7-33.7); NEUT % 53.4 % (42.8-82.8); PLATELET COUNT 240 K/MM3 (134-434); RBC 3.01 M/mm3 (3.60-5.2); RDW 15.6 % (11.6-15.6); WHITE BLOOD COUNT 8.6 K/mm3 (4.0-10.0)
[2019-09-10 08:13] LABS: ALBUMIN 2.4 g/dl (3.4-5.0); BILIRUBIN,TOTAL 0.6 mg/dL (0.2-1); BLOOD UREA NITROGEN 32.4 mg/dL (7-18); CALCIUM 8.2 mg/dL (8.5-10.1); CREATININE 4.3 mg/dL (0.55-1.3); MAGNESIUM 1.8 mg/dL (1.8-2.4); POTASSIUM 3.7 mmol/L (3.5-5.1); TOT PROT 6.1 g/dl (6.4-8.2)
[2019-09-10] MEDS: HYDROCORTISONE SOD SUCCINATE 100 MG/2 ML VIAL IVPUSH SCH ×2 (10:42→12:21)
--- NOTE | 2019-09-10 11:32 | PN ---
Progress Note (short form) - Note Progress Note: Feels good Denies any complaints Eager to go home Vital Signs Period Temp Pulse Resp BP Sys/Amos Pulse Ox Last 24 Hr 98.2 F-99.8 F 60-68 18-20 132-151/58-98 96-96 PE: awake, alert, Neck: Supple LUngs: CTA CVs: S1S2 Abd: Benign EXt: No edema CMP Sodium 135 mmol/L (136-145) L 09/10/19 06:25 Potassium 3.7 mmol/L (3.5-5.1) 09/10/19 06:25 Chloride 97 mmol/L (98-107) L 09/10/19 06:25 Carbon Dioxide 28 mmol/L (21-32) 09/10/19 06:25 Anion Gap 10 MMOL/L (8-16) 09/10/19 06:25 BUN 32.4 mg/dL (7-18) H 09/10/19 06:25 Creatinine 4.3 mg/dL (0.55-1.3) H 09/10/19 06:25 Est GFR (CKD-EPI)AfAm 12.86 09/10/19 06:25 Est GFR (CKD-EPI)NonAf 11.10 09/10/19 06:25 POC Glucometer 121 UNITS (80-120) 09/10/19 06:08 Random Glucose 125 mg/dL (74-106) H 09/10/19 06:25 Lactic Acid 0.7 mmol/L (0.4-2.0) 08/25/19 11:00 Calcium 8.2 mg/dL (8.5-10.1) L 09/10/19 06:25 Phosphorus 4.2 mg/dL (2.5-4.9) 09/04/19 05:15 Magnesium 1.8 mg/dL (1.8-2.4) 09/10/19 06:25 Total Bilirubin 0.6 mg/dL (0.2-1) 09/10/19 06:25 Direct Bilirubin 0.2 mg/dL (0.0-0.2) 08/26/19 05:54 AST 29 U/L (15-37) 09/10/19 06:25 ALT 33 U/L (13-61) 09/10/19 06:25 Alkaline Phosphatase 454 U/L (45-117) H 09/10/19 06:25 Ammonia 24.90 umol/L (11-32) 08/25/19 11:00 Creatine Kinase 1133 U/L (26-192) H 08/26/19 05:54 Creatine Kinase Index 0.8 % (0.0-5.0) 08/26/19 05:54 CK-MB (CK-2) 9.5 ng/mL (0.5-3.6) H 08/26/19 05:54 Troponin I < 0.02 ng/ml (0.00-0.05) 08/26/19 05:54 B-Natriuretic Peptide 3649.4 pg/ml (5-125) H 08/25/19 11:00 Total Protein 6.1 g/dl (6.4-8.2) L 09/10/19 06:25 Total Protein (PEP) 6.2 g/dL (6.0-8.5) 09/02/19 15:55 Albumin 2.4 g/dl (3.4-5.0) L 09/10/19 06:25 Albumin (PEP) 2.6 gm/dl (2.9-4.4) L 09/02/19 15:55 Globulin 3.6 g/dL (2.2-3.9) 09/02/19 15:55 Albumin/Globulin Ratio 0.7 (0.7-1.7) 09/02/19 15:55 Beta Globulins 0.7 gm/dL (0.7-1.3) 09/02/19 15:55 Beta-Hydroxybutyrate 1.1 mg/dL (0.2-2.8) 08/25/19 11:00 Procalcitonin 1.29 ng/mL (0.00-0.08) H 08/25/19 13:41 TSH 114.00 uIU/ml (0.358-3.74) H 09/09/19 06:00 Free T4 0.75 ng/dl (0.76-1.46) L 09/09/19 06:00 Thyroxine (T4) 3.2 ug/dl (4.5-13.9) L 08/25/19 11:00 Free T3 0.8 pg/ml (2.0-4.4) L 09/09/19 08:05 Resin T3 Uptake 30.3 % (30-39) 08/26/19 05:54 Serum , Qual Negative 08/30/19 15:40 Cortisol Pre Dose Time 40.10 mcg/dL (.) 08/25/19 12:46 Current Medications Generic Name Dose Route Start Last Admin Trade Name Freq PRN Reason Stop Dose Admin Acetaminophen 650 mg 09/06/19 15:49 Tylenol - PO Q6H PRN Fever Or Pain Albuterol Sulfate 1 amp 09/07/19 11:08 09/08/19 15:05 Ventolin 0.083% Nebulizer Soln - NEB 1 amp Q4H PRN Administration SHORT OF BREATH/WHEEZING Amlodipine Besylate 10 mg 09/06/19 10:00 09/09/19 12:09 Norvasc - PO 10 mg DAILY [facility] Administration Atorvastatin Calcium 40 mg 09/06/19 22:00 09/09/19 22:03 Lipitor - PO 40 mg HS [facility] Administration Famotidine 20 mg 09/06/19 10:00 09/08/19 11:46 Acid Automatic Typewriter Inspector PO 20 mg Q2D [facility] Administration Heparin Sodium (Porcine) 5,000 unit 09/05/19 14:00 09/10/19 06:44 Heparin - SQ 5,000 unit TID [facility] Administration Hydrocortisone Sodium Succinate 25 mg 09/10/19 08:00 09/10/19 10:42 Solu-Cortef - IVPUSH Not Given DAILY [facility] Sodium Chloride 250 mls @ 3,000 mls/hr 09/08/19 13:00 Normal Saline - IV PRN PRN Hypotension during Dialysis Sodium Chloride 250 mls @ 3,000 mls/hr 09/09/19 14:04 Normal Saline - IV 09/10/19 14:04 PRN PRN Hypotension during Dialysis Insulin Aspart 1 vial 09/05/19 16:30 09/10/19 06:44 Novolog Vial Sliding Scale - SQ Not Given ACHS [facility] Protocol Labetalol HCl 200 mg 09/05/19 14:00 09/10/19 06:44 Normodyne - PO 200 mg TID [facility] Administration Levothyroxine Sodium 200 mcg/ 225 mcg 09/10/19 07:00 09/10/19 06:45 Levothyroxine Sodium 25 mcg PO 225 mcg DAILY@0700 [facility] Administration Paroxetine HCl 40 mg 09/06/19 10:00 09/09/19 12:08 Paxil - PO 40 mg DAILY [facility] Administration AP: Respiratory failure AMS/ Toxic metabolic encephalopathy Hypothyrodism Throid ca s/p Thyroidectomy Morbid obesity LUCY on CKD DM Anemia with drop in H/H H/o Renal stones Elevated Alk Phos Ventilatory support TSH 114.0 now , from 60.2, 72.30 . FT4 0.75 from 0.24 Change to LT4 2250mcg PO Taper IV hydrocortiosne: Change 25 QD If pt is discharged, Pt go go home on LT4 225 and Prednisone 10 mg QD for 2 days , then 5mg Qd for 2 days,and DC after that. Reeat TFT in 2 weeks and change dose as necessary. Predose Cortisol level was 40. BGM QACHS Novolog SS coverage Will f/u Problem List - Problems (1) AMS (altered mental status) Code(s): R41.82 - ALTERED MENTAL STATUS, UNSPECIFIED (2) Acute metabolic encephalopathy Code(s): G93.41 - METABOLIC ENCEPHALOPATHY (3) Acute renal failure Code(s): N17.9 - ACUTE KIDNEY FAILURE, UNSPECIFIED (4) Diabetes Code(s): E11.9 - TYPE 2 DIABETES MELLITUS WITHOUT COMPLICATIONS (5) Hypercapnic respiratory failure Code(s): J96.92 - RESPIRATORY FAILURE, UNSPECIFIED WITH HYPERCAPNIA (6) Hypothermia Code(s): T68.XXXA - HYPOTHERMIA, INITIAL ENCOUNTER (7) Metabolic acidosis Code(s): E87.2 - ACIDOSIS (8) Morbid obesity Code(s): E66.01 - MORBID (SEVERE) OBESITY DUE TO EXCESS CALORIES
--- NOTE | 2019-09-10 11:48 | PN ---
Progress Note (short form) - Note Progress Note: PULMONARY Awake, just finished HD 1.5 kg removed vss/afebrile Gen: NAD at rest Heart: RRR Lung: decreased breath sounds at the bases Abd: soft, nontender Ext: no edema Chart reviewed A/P Acute Hypercapneic Respiratory Failure Myxedema Coma UTI Acute Kidney Injury requiring HD Volume Overload Pleural Effusions COPD DM Anemia - HD per renal with ultrafiltration - monitor urine output, creatinine - completed antibiotics - hydrocortisone & synthroid per endocrine - inhaled bronchodilators - O2 to keep SpO2 >90% - PO as tolerated - DVT/GI prophylaxis Ritu MONTOYA MD
[2019-09-10] MEDS: PARoxetine HCL 20 MG TABLET PO SCH (12:22)
[2019-09-10] MEDS: FAMOTIDINE 10 MG TABLET PO SCH (12:22)
[2019-09-10] MEDS: amLODIPine BESYLATE 10 MG TABLET (FP) PO SCH (12:22)
--- NOTE | 2019-09-10 13:12 | PN ---
Progress Note, BILLING SPECIALIST - Note Progress Note: Selected Entries 09/08/19 09/08/19 09/08/19 10:00 10:33 15:44 Breakfast 25% Supper Temperature 98.6 F 98.8 F 09/08/19 09/09/19 18:00 02:00 Breakfast Supper 0 Temperature 98.9 F 99.7 F H Laboratory Tests 09/08/19 09/09/19 06:22 08:05 WBC 9.2 10.4 H Limited appetite. Pt denies Odynophagia or Dysphagia. Pt would like diet at ordered. She could probably be upgraded but has deferred solids at this time..
--- NOTE | 2019-09-10 13:34 | PN ---
Physical Exam: SUBJECTIVE: Patient seen and examined at the bedside. she is asking again to go home, no longer agitated. denies any malaise. OBJECTIVE: Patient is a 54 year old morbid obese female with a significant past medical history of hypertension, hyperlipidemia, diabetes, COPD, anemia, thyroid cancer 6 years ago (no prior admission to [facility]). Patient brought into the ED 08/25/19 for altered mental status, acute shortness of breath, metabolic acidosis. She was found to have an elevated TSH, low t4 and hypothermic (96f- 97-on mariana hugger). Urine was + for ecstasy. on admission had renal failure with a creat of 7.7, bun of 65,mag 1.6, elevated ast/alt. she was admitted to the ICU and since 09/04, is being monitored on med surg unit. She has been asking to leave an AMA, psyche to assess capacity to make medical decisions. Her daughter Sharla is her HCP. discussed POC with patient, asked to to stay until we can set up dialysis for her as an outpatient. There are issues with her insurance currently and discharging her now is unsafe. she will be discharged when dialysis is set up for her and she is able to ambulate safely. she is only now able to stand. Vital Signs Period Temp Pulse Resp BP Sys/Amos Pulse Ox Last 24 Hr 98.2 F-99.8 F 60-68 18-20 132-161/58-98 96-96 GENERAL: The patient is awake, alert, and fully oriented, agitated HEAD: Normal with no signs of trauma. EYES: PERRL, extraocular movements intact, sclera anicteric, conjunctiva clear. No ptosis. ENT: Ears normal, nares patent, oropharynx clear without exudates, moist mucous membranes. NECK: Trachea midline, full range of motion, supple. LUNGS: Breath sounds equal, clear to auscultation bilaterally HEART: Regular rate and rhythm ABDOMEN: Soft, nontender, nondistended, normoactive bowel sounds, no guarding, no rebound, no hepatosplenomegaly, no masses. EXTREMITIES: lower ext trace edema NEUROLOGICAL: awake, alert, agitated PSYCH: Normal mood, normal affect. SKIN: Warm, dry, normal turgor, no rashes or lesions noted Laboratory Results - last 24 hr 09/02/19 09/09/1909/09/19 15:55 08:05 16:50 WBC RBC Hgb Hct MCV MCH MCHC RDW Plt Count MPV Absolute Neuts (auto) Neutrophils % Lymphocytes % Monocytes % Eosinophils % Basophils % Nucleated RBC % Sodium Potassium Chloride Carbon Dioxide Anion Gap BUN Creatinine Est GFR (CKD-EPI)AfAm Est GFR (CKD-EPI)NonAf POC Glucometer 145 Random Glucose Calcium Magnesium Total Bilirubin AST ALT Alkaline Phosphatase Total Protein Total Protein (PEP) 6.2 Albumin Albumin (PEP) 2.6 L Globulin 3.6 Albumin/Globulin Ratio 0.7 Beta Globulins 0.7 Free T3 0.8 L STEVEN M-Shant Not observed 09/09/19 09/10/19 09/10/19 21:24 06:08 06:25 WBC 8.6 RBC 3.01 L Hgb 9.1 L Hct 26.8 L MCV 89.0 MCH 30.2 MCHC 34.0 RDW 15.6 Plt Count 240 MPV 9.0 Absolute Neuts (auto) 4.6 Neutrophils % 53.4 Lymphocytes % 41.2 H Monocytes % 5.0 Eosinophils % 0.0 Basophils % 0.4 Nucleated RBC % 0 Sodium Potassium Chloride Carbon Dioxide Anion Gap BUN Creatinine Est GFR (CKD-EPI)AfAm Est GFR (CKD-EPI)NonAf POC Glucometer 144 121 Random Glucose Calcium Magnesium Total Bilirubin AST ALT Alkaline Phosphatase Total Protein Total Protein (PEP) Albumin Albumin (PEP) Globulin Albumin/Globulin Ratio Beta Globulins Free T3 STEVEN M-Shant 09/10/19 09/10/19 06:25 12:33 WBC RBC Hgb Hct MCV MCH MCHC RDW Plt Count MPV Absolute Neuts (auto) Neutrophils % Lymphocytes % Monocytes % Eosinophils % Basophils % Nucleated RBC % Sodium 135 L Potassium 3.7 Chloride 97 L Carbon Dioxide 28 Anion Gap 10 BUN 32.4 H Creatinine 4.3 H Est GFR (CKD-EPI)AfAm 12.86 Est GFR (CKD-EPI)NonAf 11.10 POC Glucometer 100 Random Glucose 125 H Calcium 8.2 L Magnesium 1.8 Total Bilirubin 0.6 AST 29 ALT 33 Alkaline Phosphatase 454 H Total Protein 6.1 L Total Protein (PEP) Albumin 2.4 L Albumin (PEP) Globulin Albumin/Globulin Ratio Beta Globulins Free T3 STEVEN M-Shant Active Medications Generic Name Dose Route Start Last Admin Trade Name Freq PRN Reason Stop Dose Admin Acetaminophen 650 mg 09/06/19 15:49 Tylenol - PO Q6H PRN Fever Or Pain Albuterol Sulfate 1 amp 09/07/19 11:08 09/08/19 15:05 Ventolin 0.083% Nebulizer Soln - NEB 1 amp Q4H PRN Administration SHORT OF BREATH/WHEEZING Amlodipine Besylate 10 mg 09/06/19 10:00 09/10/19 12:22 Norvasc - PO 10 mg DAILY [facility] Administration Atorvastatin Calcium 40 mg 09/06/19 22:00 09/09/19 22:03 Lipitor - PO 40 mg HS [facility] Administration Famotidine 20 mg 09/06/19 10:00 09/10/19 12:22 Acid Print Graphic Designer PO 20 mg Q2D [facility] Administration Heparin Sodium (Porcine) 5,000 unit 09/05/19 14:00 09/10/19 06:44 Heparin - SQ 5,000 unit TID [facility] Administration Hydrocortisone Sodium Succinate 25 mg 09/10/19 08:00 09/10/19 12:21 Solu-Cortef - IVPUSH 25 mg DAILY [facility] Administration Sodium Chloride 250 mls @ 3,000 mls/hr 09/08/19 13:00 Normal Saline - IV PRN PRN Hypotension during Dialysis Sodium Chloride 250 mls @ 3,000 mls/hr 09/09/19 14:04 Normal Saline - IV 09/10/19 14:04 PRN PRN Hypotension during Dialysis Insulin Aspart 1 vial 09/05/19 16:30 09/10/19 12:49 Novolog Vial Sliding Scale - SQ Not Given ACHS [facility] Protocol Labetalol HCl 200 mg 09/05/19 14:00 09/10/19 06:44 Normodyne - PO 200 mg TID [facility] Administration Levothyroxine Sodium 200 mcg/ 225 mcg 09/10/19 07:00 09/10/19 06:45 Levothyroxine Sodium 25 mcg PO 225 mcg DAILY@0700 [facility] Administration Paroxetine HCl 40 mg 09/06/19 10:00 09/10/19 12:22 Paxil - PO 40 mg DAILY [facility] Administration ASSESSMENT/PLAN: Problem List - Problems (1) Acute metabolic encephalopathy Assessment/Plan: resolved. psyche to assess capacity to make her own medical decisions. Code(s): G93.41 - METABOLIC ENCEPHALOPATHY (2) Myxedema coma Assessment/Plan: AMS resolved Taper IV hydrocortiosne: Change 25 QD If pt is discharged, Pt go go home on LT4 225 and Prednisone 10 mg QD for 2 days , then 5mg Qd for 2 days,and DC after that per Dr. Patterson Further, repat TFT in 2 weeks and change dose as necessary. Novolog SS coverage being followed by archives technician Code(s): E03.5 - MYXEDEMA COMA (3) Hypercapnic respiratory failure Assessment/Plan: Intubated on admission, extubated on 09/03/19, now room air Code(s): J96.92 - RESPIRATORY FAILURE, UNSPECIFIED WITH HYPERCAPNIA (4) SOB (shortness of breath) Assessment/Plan: s/p intubation, now on room air Code(s): R06.02 - SHORTNESS OF BREATH (5) Morbid obesity Assessment/Plan: outpatient follow up Code(s): E66.01 - MORBID (SEVERE) OBESITY DUE TO EXCESS CALORIES (6) AMS (altered mental status) Assessment/Plan: see acute metabolic encephalopathy Code(s): R41.82 - ALTERED MENTAL STATUS, UNSPECIFIED (7) Acute renal failure Assessment/Plan: dialysis today Code(s): N17.9 - ACUTE KIDNEY FAILURE, UNSPECIFIED (8) Metabolic acidosis Assessment/Plan: hydrocortisone taper for possible adrenal insufficiency Code(s): E87.2 - ACIDOSIS (9) Diabetes Assessment/Plan: bgms ac/hs followed by archives technician Code(s): E11.9 - TYPE 2 DIABETES MELLITUS WITHOUT COMPLICATIONS (10) Hypothermia Assessment/Plan: ID following, completed meropenem blood cultures negative and urine cultures + with 50-[address] + sputum/lactose fermenting bacteria/yeast/serratia Code(s): T68.XXXA - HYPOTHERMIA, INITIAL ENCOUNTER (11) Anemia Assessment/Plan: received 1 PRBC since admission Hgb stable continue to monitor Code(s): D64.9 - ANEMIA, UNSPECIFIED (12) HLD (hyperlipidemia) Code(s): E78.5 - HYPERLIPIDEMIA, UNSPECIFIED (13) DVT prophylaxis Assessment/Plan: on heparin tid Code(s): Z29.9 - ENCOUNTER FOR PROPHYLACTIC MEASURES, UNSPECIFIED Visit type - Emergency Visit Emergency Visit: Yes ED Registration Date: 08/25/19 Care time: The patient presented to the Emergency Department on the above date and was hospitalized for further evaluation of their emergent condition. - New Patient This patient is new to me today: No - Critical Care Critical Care patient: No - Discharge Referral Referred to [facility] No
--- NOTE | 2019-09-10 13:52 | PN ---
Progress Note, Physician History of Present Illness: stable no new issues - Current Medication List Current Medications: Active Medications Acetaminophen (Tylenol -) 650 mg PO Q6H PRN PRN Reason: Fever Or Pain Albuterol Sulfate (Ventolin 0.083% Nebulizer Soln -) 1 amp NEB Q4H PRN PRN Reason: SHORT OF BREATH/WHEEZING Last Admin: 09/08/19 15:05 Dose: 1 amp Amlodipine Besylate (Norvasc -) 10 mg PO DAILY [facility] Last Admin: 09/10/19 12:22 Dose: 10 mg Atorvastatin Calcium (Lipitor -) 40 mg PO HS [facility] Last Admin: 09/09/19 22:03 Dose: 40 mg Famotidine (Acid Risk Prevention Engineer) 20 mg PO Q2D [facility] Last Admin: 09/10/19 12:22 Dose: 20 mg Heparin Sodium (Porcine) (Heparin -) 5,000 unit SQ TID [facility] Last Admin: 09/10/19 06:44 Dose: 5,000 unit Hydrocortisone Sodium Succinate (Solu-Cortef -) 25 mg IVPUSH DAILY [facility] Last Admin: 09/10/19 12:21 Dose: 25 mg Sodium Chloride (Normal Saline -) 250 mls @ 3,000 mls/hr IV PRN PRN PRN Reason: Hypotension during Dialysis Sodium Chloride (Normal Saline -) 250 mls @ 3,000 mls/hr IV PRN PRN PRN Reason: Hypotension during Dialysis Stop: 09/10/19 14:04 Insulin Aspart (Novolog Vial Sliding Scale -) 1 vial SQ [facility]; Protocol Last Admin: 09/10/19 12:49 Dose: Not Given Labetalol HCl (Normodyne -) 200 mg PO TID [facility] Last Admin: 09/10/19 06:44 Dose: 200 mg Levothyroxine Sodium 200 mcg/ (Levothyroxine Sodium 25 mcg) 225 mcg PO DAILY@ 0700 [facility] Last Admin: 09/10/19 06:45 Dose: 225 mcg Paroxetine HCl (Paxil -) 40 mg PO DAILY [facility] Last Admin: 09/10/19 12:22 Dose: 40 mg - Objective Vital Signs: Vital Signs Temperature 98.2 F 09/10/19 07:35 Pulse Rate 62 09/10/19 11:15 Respiratory Rate 18 09/10/19 12:25 Blood Pressure 161/82 09/10/19 12:25 O2 Sat by Pulse Oximetry (%) 96 09/09/19 21:00 Constitutional: Yes: No Distress, Calm Cardiovascular: Yes: S1, S2 Respiratory: Yes: Regular Gastrointestinal: Yes: Normal Bowel Sounds, Soft Musculoskeletal: Yes: WNL Extremities: Yes: WNL Neurological: Yes: Alert Labs: CBC, BMP 09/10/19 06:25 09/10/19 06:25 INR, PTT INR 0.99 (0.83-1.09) 09/05/19 13:45 Assessment/Plan Problem List - Problems (1) LUCY (acute kidney injury) Code(s): N17.9 - ACUTE KIDNEY FAILURE, UNSPECIFIED (2) AMS (altered mental status) Code(s): R41.82 - ALTERED MENTAL STATUS, UNSPECIFIED (3) Acute metabolic encephalopathy Code(s): G93.41 - METABOLIC ENCEPHALOPATHY (4) Acute respiratory failure Code(s): J96.00 - ACUTE RESPIRATORY FAILURE, UNSP W HYPOXIA OR HYPERCAPNIA (5) Anemia Code(s): D64.9 - ANEMIA, UNSPECIFIED (6) COPD (chronic obstructive pulmonary disease) Code(s): J44.9 - CHRONIC OBSTRUCTIVE PULMONARY DISEASE, UNSPECIFIED (7) Diabetes Code(s): E11.9 - TYPE 2 DIABETES MELLITUS WITHOUT COMPLICATIONS (8) HTN (hypertension) Code(s): I10 - ESSENTIAL (PRIMARY) HYPERTENSION (9) Hypercapnic respiratory failure Code(s): J96.92 - RESPIRATORY FAILURE, UNSPECIFIED WITH HYPERCAPNIA (10) Hypothermia Code(s): T68.XXXA - HYPOTHERMIA, INITIAL ENCOUNTER (11) Morbid obesity Code(s): E66.01 - MORBID (SEVERE) OBESITY DUE TO EXCESS CALORIES (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
--- NOTE | 2019-09-10 16:54 | PN ---
Progress Note, Physician History of Present Illness: Pt seen and examined at bedside. She is calmer today. She tolerated HD. - Current Medication List Current Medications: Active Medications Acetaminophen (Tylenol -) 650 mg PO Q6H PRN PRN Reason: Fever Or Pain Albuterol Sulfate (Ventolin 0.083% Nebulizer Soln -) 1 amp NEB Q4H PRN PRN Reason: SHORT OF BREATH/WHEEZING Last Admin: 09/08/19 15:05 Dose: 1 amp Amlodipine Besylate (Norvasc -) 10 mg PO DAILY [facility] Last Admin: 09/10/19 12:22 Dose: 10 mg Atorvastatin Calcium (Lipitor -) 40 mg PO HS [facility] Last Admin: 09/09/19 22:03 Dose: 40 mg Famotidine (Acid Broomcorn Scraper) 20 mg PO Q2D [facility] Last Admin: 09/10/19 12:22 Dose: 20 mg Heparin Sodium (Porcine) (Heparin -) 5,000 unit SQ TID [facility] Last Admin: 09/10/19 06:44 Dose: 5,000 unit Hydrocortisone Sodium Succinate (Solu-Cortef -) 25 mg IVPUSH DAILY [facility] Last Admin: 09/10/19 12:21 Dose: 25 mg Sodium Chloride (Normal Saline -) 250 mls @ 3,000 mls/hr IV PRN PRN PRN Reason: Hypotension during Dialysis Sodium Chloride (Normal Saline -) 250 mls @ 3,000 mls/hr IV PRN PRN PRN Reason: Hypotension during Dialysis Stop: 09/10/19 14:04 Insulin Aspart (Novolog Vial Sliding Scale -) 1 vial SQ ACHS [facility]; Protocol Last Admin: 09/10/19 12:49 Dose: Not Given Labetalol HCl (Normodyne -) 200 mg PO TID [facility] Last Admin: 09/10/19 06:44 Dose: 200 mg Levothyroxine Sodium 200 mcg/ (Levothyroxine Sodium 25 mcg) 225 mcg PO DAILY@ 0700 [facility] Last Admin: 09/10/19 06:45 Dose: 225 mcg Paroxetine HCl (Paxil -) 40 mg PO DAILY [facility] Last Admin: 09/10/19 12:22 Dose: 40 mg - Objective Vital Signs: Vital Signs Temperature 99.4 F 09/10/19 14:41 Pulse Rate 65 09/10/19 14:41 Respiratory Rate 22 H 12/31/19 14:41 Blood Pressure 157/67 12/31/19 14:41 O2 Sat by Pulse Oximetry (%) 96 09/10/19 09:00 Constitutional: Yes: Calm Eyes: Yes: Conjunctiva Clear HENT: Yes: Atraumatic Cardiovascular: Yes: S1, S2 Respiratory: Yes: CTA Bilaterally, On Nasal O2 Gastrointestinal: Yes: Soft Genitourinary: Yes: WNL Musculoskeletal: Yes: WNL Edema: Yes Edema: LLE: Trace, RLE: Trace Integumentary: Yes: Tattoos Neurological: Yes: Oriented Psychiatric: Yes: Oriented Labs: CBC, BMP 09/10/19 06:25 09/10/19 06:25 INR, PTT INR 0.99 (0.83-1.09) 09/05/19 13:45 Problem List - Problems (1) AMS (altered mental status) Code(s): R41.82 - ALTERED MENTAL STATUS, UNSPECIFIED (2) Acute metabolic encephalopathy Code(s): G93.41 - METABOLIC ENCEPHALOPATHY (3) Acute renal failure Code(s): N17.9 - ACUTE KIDNEY FAILURE, UNSPECIFIED (4) Diabetes Code(s): E11.9 - TYPE 2 DIABETES MELLITUS WITHOUT COMPLICATIONS (5) Hypercapnic respiratory failure Code(s): J96.92 - RESPIRATORY FAILURE, UNSPECIFIED WITH HYPERCAPNIA (6) Hypothermia Code(s): T68.XXXA - HYPOTHERMIA, INITIAL ENCOUNTER (7) Morbid obesity Code(s): E66.01 - MORBID (SEVERE) OBESITY DUE TO EXCESS CALORIES Assessment/Plan Current Medications Generic Name Dose Route Start Last Admin Trade Name Freq PRN Reason Stop Dose Admin Acetaminophen 650 mg 09/06/19 15:49 Tylenol - PO Q6H PRN Fever Or Pain Albuterol Sulfate 1 amp 09/07/19 11:08 09/08/19 15:05 Ventolin 0.083% Nebulizer Soln - NEB 1 amp Q4H PRN Administration SHORT OF BREATH/WHEEZING Amlodipine Besylate 10 mg 09/06/19 10:00 09/10/19 12:22 Norvasc - PO 10 mg DAILY [facility] Administration Atorvastatin Calcium 40 mg 09/06/19 22:00 09/09/19 22:03 Lipitor - PO 40 mg HS [facility] Administration Famotidine 20 mg 09/06/19 10:00 09/10/19 12:22 Acid Broomcorn Scraper PO 20 mg Q2D [facility] Administration Heparin Sodium (Porcine) 5,000 unit 09/05/19 14:00 09/10/19 06:44 Heparin - SQ 5,000 unit TID [facility] Administration Hydrocortisone Sodium Succinate 25 mg 09/10/19 08:00 09/10/19 12:21 Solu-Cortef - IVPUSH 25 mg DAILY [facility] Administration Sodium Chloride 250 mls @ 3,000 mls/hr 09/08/19 13:00 Normal Saline - IV PRN PRN Hypotension during Dialysis Sodium Chloride 250 mls @ 3,000 mls/hr 09/09/19 14:04 Normal Saline - IV 09/10/19 14:04 PRN PRN Hypotension during Dialysis Insulin Aspart 1 vial 09/05/19 16:30 09/10/19 12:49 Novolog Vial Sliding Scale - SQ Not Given ACHS [facility] Protocol Labetalol HCl 200 mg 09/05/19 14:00 09/10/19 06:44 Normodyne - PO 200 mg TID [facility] Administration Levothyroxine Sodium 200 mcg/ 225 mcg 09/10/19 07:00 09/10/19 06:45 Levothyroxine Sodium 25 mcg PO 225 mcg DAILY@0700 [facility] Administration Paroxetine HCl 40 mg 09/06/19 10:00 09/10/19 12:22 Paxil - PO 40 mg DAILY [facility] Administration Impression 1. LUCY 2. fluid overload 3. acute respiratory failure 4. hypothyroidism with tsh of 100 5. 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 urine tox pos for mdma 7. mild rhabdo 8. hepatitis B Plan - HD today - pending placement - biopsy once stable if she agrees - serologies negative
--- NOTE | 2019-09-10 18:09 | CON.PSY ---
Psychiatry Consult Chief Complaint: 54 [place] old female witha long history of THyroid Diosorder, on Dialysis, history od DEpression seen for Psych eval. Patient wants to sign out AMA from the Hospital. Patient is aware of and comprehends risks associted with leaving AMA. - Previous Psychiatric Treatment Outpatient: More than 6 mos ago Inpatient: None - Previous Substance Abuse Treatment Outpatient: None Inpatient: None - Reason for Previous Treatment Reason for Previous Treatment: Major Depression - Current Medications Current Medications: Active Medications Acetaminophen (Tylenol -) 650 mg PO Q6H PRN PRN Reason: Fever Or Pain Albuterol Sulfate (Ventolin 0.083% Nebulizer Soln -) 1 amp NEB Q4H PRN PRN Reason: SHORT OF BREATH/WHEEZING Last Admin: 09/08/19 15:05 Dose: 1 amp Amlodipine Besylate (Norvasc -) 10 mg PO DAILY [facility] Last Admin: 09/10/19 12:22 Dose: 10 mg Atorvastatin Calcium (Lipitor -) 40 mg PO HS [facility] Last Admin: 09/09/19 22:03 Dose: 40 mg Famotidine (Acid Dental Claims Processor) 20 mg PO Q2D [facility] Last Admin: 09/10/19 12:22 Dose: 20 mg Heparin Sodium (Porcine) (Heparin -) 5,000 unit SQ TID [facility] Last Admin: 09/10/19 17:23 Dose: Not Given Hydrocortisone Sodium Succinate (Solu-Cortef -) 25 mg IVPUSH DAILY [facility] Last Admin: 09/10/19 12:21 Dose: 25 mg Sodium Chloride (Normal Saline -) 250 mls @ 3,000 mls/hr IV PRN PRN PRN Reason: Hypotension during Dialysis Sodium Chloride (Normal Saline -) 250 mls @ 3,000 mls/hr IV PRN PRN PRN Reason: Hypotension during Dialysis Stop: 09/10/19 14:04 Insulin Aspart (Novolog Vial Sliding Scale -) 1 vial SQ ACHS [facility]; Protocol Last Admin: 09/10/19 17:24 Dose: Not Given Labetalol HCl (Normodyne -) 200 mg PO TID [facility] Last Admin: 09/10/19 17:24 Dose: 200 mg Levothyroxine Sodium 200 mcg/ (Levothyroxine Sodium 25 mcg) 225 mcg PO DAILY@ 0700 [facility] Last Admin: 09/10/19 06:45 Dose: 225 mcg Paroxetine HCl (Paxil -) 40 mg PO DAILY [facility] Last Admin: 09/10/19 12:22 Dose: 40 mg - Allergies Allergies: Allergies Allergy/AdvReac Type Severity Reaction Status Date / Time pollen extracts AdvReac Unknown Verified 08/25/19 18:16 shellfish derived AdvReac Unknown Verified 08/25/19 18:16 - Current Living Status Usual Living Arrangement: Alone - Current Mental Status Evaluation Appearance: Well Groomed Attitude: Cooperative - Affect Affect: Constrictive Appropriateness: Appropriate to Content - Mood Mood: Euthymic - Speech/Language Expressive: Coherent - Psychomotor Activity Psychomotor Activity: Slowed - Thought Process Thought Process: Intact - Thought Content Hallucinations: Absent Delusions: Absent - Self Perception Self Perception: No Impairment - Cognition Attention: Alert Orientation: Time Memory, Immediate Recall: Intact Memory, Remote with Promptin/3 - Concentration Serial Sevens Intact: No Simple Calculations Intact: Yes - Abstraction Proverb Interpretation: Intact Judgement: Intact - Insight Insight: Intact - Impulse Control Impulse Control: Good Control - Suicidal Ideation Suicidal Ideation: No - Homicidal Ideation Homicidal Ideation: No Assessment/Plan 1) patient has the Functional Capacity to make [id number] about AMA from the Hospital.
[2019-09-10] MEDS: ATORVASTATIN CA 40 MG TABLET (FP) PO SCH (22:34)
[2019-09-11] MEDS ORDERED: LEVOTHYROXINE NA 25 MCG TABLET (FP) ONE (05:54)
[2019-09-11] MEDS ORDERED: LEVOTHYROXINE NA 200 MCG TABLET ONE (05:54)
[2019-09-11] MEDS: HEPARIN NA (PORCINE) 5,000 UNITS/ML 1ML VIAL SQ SCH ×3 (06:33→21:40)
[2019-09-11] MEDS: LABETALOL HCL 100 MG TABLET (FP) PO SCH ×3 (06:35→21:57)
[2019-09-11] MEDS: INSULIN SLIDING SCALE (NOVOLOG) 1 VIAL SQ SCH ×4 (06:36→21:42)
[2019-09-11] MEDS: LEVOTHYROXINE 200 MCG, LEVOTHYROXINE 25 MCG PO SCH (06:36)
[2019-09-11 08:59] LABS: BASO % 0.5 % (0-2.0); HEMATOCRIT 25.5 % (32.4-45.2); HEMOGLOBIN 8.6 GM/dL (10.7-15.3); LYMPH % 48.9 % (8-40); MCH 30.1 pg (25.7-33.7); MCHC 33.8 g/dl (32.0-36.0); MEAN CELL VOLUME 89.1 fl (80-96); MEAN PLT VOLUME 8.9 fl (7.5-11.1); MONO % 4.7 % (3.8-10.2); NEUT % 45.9 % (42.8-82.8); PLATELET COUNT 242 K/MM3 (134-434); RBC 2.87 M/mm3 (3.60-5.2); RDW 15.5 % (11.6-15.6); WHITE BLOOD COUNT 8.6 K/mm3 (4.0-10.0)
[2019-09-11 09:29] LABS: ALBUMIN 2.4 g/dl (3.4-5.0); BILIRUBIN,TOTAL 0.5 mg/dL (0.2-1); BLOOD UREA NITROGEN 19.5 mg/dL (7-18); CALCIUM 8.4 mg/dL (8.5-10.1); CREATININE 3.3 mg/dL (0.55-1.3); MAGNESIUM 1.9 mg/dL (1.8-2.4); POTASSIUM 3.6 mmol/L (3.5-5.1); TOT PROT 6.3 g/dl (6.4-8.2)
[2019-09-11] MEDS: HYDROCORTISONE SOD SUCCINATE 100 MG/2 ML VIAL IVPUSH SCH (10:02)
[2019-09-11] MEDS: PARoxetine HCL 20 MG TABLET PO SCH (10:02)
[2019-09-11] MEDS: amLODIPine BESYLATE 10 MG TABLET (FP) PO SCH (10:02)
--- NOTE | 2019-09-11 11:56 | PN ---
Progress Note (short form) - Note Progress Note: Resting in NAD on RA. Denies CP or SOB. No acute events overnight. Intake & Output 09/08/19 09/09/19 09/10/19 09/11/19 23:59 23:59 23:59 23:59 Intake Total 600 1000 200 Output Total 3500 2000 Balance -2900 -1000 200 Last Vital Signs Temp Pulse Resp BP Pulse Ox 98.7 F 67 20 161/68 96 09/11/19 06:00 09/11/19 06:00 09/11/19 06:00 09/11/19 06:00 09/10/19 21:00 Active Medications Acetaminophen (Tylenol -) 650 mg PO Q6H PRN PRN Reason: Fever Or Pain Albuterol Sulfate (Ventolin 0.083% Nebulizer Soln -) 1 amp NEB Q4H PRN PRN Reason: SHORT OF BREATH/WHEEZING Last Admin: 09/08/19 15:05 Dose: 1 amp Amlodipine Besylate (Norvasc -) 10 mg PO DAILY [facility] Last Admin: 09/11/19 10:02 Dose: 10 mg Atorvastatin Calcium (Lipitor -) 40 mg PO HS [facility] Last Admin: 09/10/19 22:34 Dose: 40 mg Famotidine (Acid Wood Piler) 20 mg PO Q2D [facility] Last Admin: 09/10/19 12:22 Dose: 20 mg Heparin Sodium (Porcine) (Heparin -) 5,000 unit SQ TID [facility] Last Admin: 09/11/19 06:33 Dose: Not Given Hydrocortisone Sodium Succinate (Solu-Cortef -) 25 mg IVPUSH DAILY [facility] Last Admin: 09/11/19 10:02 Dose: 25 mg Sodium Chloride (Normal Saline -) 250 mls @ 3,000 mls/hr IV PRN PRN PRN Reason: Hypotension during Dialysis Sodium Chloride (Normal Saline -) 250 mls @ 3,000 mls/hr IV PRN PRN PRN Reason: Hypotension during Dialysis Stop: 09/10/19 14:04 Insulin Aspart (Novolog Vial Sliding Scale -) 1 vial SQ ACHS [facility]; Protocol Last Admin: 09/11/19 11:09 Dose: Not Given Labetalol HCl (Normodyne -) 200 mg PO TID [facility] Last Admin: 09/11/19 06:35 Dose: 200 mg Levothyroxine Sodium 200 mcg/ (Levothyroxine Sodium 25 mcg) 225 mcg PO DAILY@ 0700 [facility] Last Admin: 09/11/19 06:36 Dose: 225 mcg Paroxetine HCl (Paxil -) 40 mg PO DAILY [facility] Last Admin: 09/11/19 10:02 Dose: 40 mg Gen: NAD Heart: RRR Lung: decreased breath sounds at the bases Abd: soft, nontender Ext: + edema improving Laboratory Results - last 24 hr 09/10/19 09/10/19 09/10/19 12:33 17:26 22:33 WBC RBC Hgb Hct MCV MCH MCHC RDW Plt Count MPV Absolute Neuts (auto) Neutrophils % Lymphocytes % Monocytes % Eosinophils % Basophils % Nucleated RBC % Sodium Potassium Chloride Carbon Dioxide Anion Gap BUN Creatinine Est GFR (CKD-EPI)AfAm Est GFR (CKD-EPI)NonAf POC Glucometer 100 156 129 Random Glucose Calcium Magnesium Total Bilirubin AST ALT Alkaline Phosphatase Total Protein Albumin 09/11/19 09/11/19 09/11/19 06:35 07:35 07:35 WBC 8.6 RBC 2.87 L Hgb 8.6 L Hct 25.5 L MCV 89.1 MCH 30.1 MCHC 33.8 RDW 15.5 Plt Count 242 MPV 8.9 Absolute Neuts (auto) 3.9 Neutrophils % 45.9 Lymphocytes % 48.9 H Monocytes % 4.7 Eosinophils % 0.0 Basophils % 0.5 Nucleated RBC % 0 Sodium 137 Potassium 3.6 Chloride 97 L Carbon Dioxide 32 Anion Gap 7 L BUN 19.5 H Creatinine 3.3 H Est GFR (CKD-EPI)AfAm 17.71 Est GFR (CKD-EPI)NonAf 15.28 POC Glucometer 94 Random Glucose 91 Calcium 8.4 L Magnesium 1.9 Total Bilirubin 0.5 AST 32 ALT 32 Alkaline Phosphatase 454 H Total Protein 6.3 L Albumin 2.4 L 09/11/19 11:04 WBC RBC Hgb Hct MCV MCH MCHC RDW Plt Count MPV Absolute Neuts (auto) Neutrophils % Lymphocytes % Monocytes % Eosinophils % Basophils % Nucleated RBC % Sodium Potassium Chloride Carbon Dioxide Anion Gap BUN Creatinine Est GFR (CKD-EPI)AfAm Est GFR (CKD-EPI)NonAf POC Glucometer 118 Random Glucose Calcium Magnesium Total Bilirubin AST ALT Alkaline Phosphatase Total Protein Albumin ASSESSMENT AND PLAN: Acute Hypercapneic Respiratory Failure Myxedema Coma UTI Acute Kidney Injury requiring HD Volume Overload Pleural Effusions COPD DM Anemia - HD per renal with ultrafiltration - monitor urine output, creatinine - ABX Per ID - hydrocortisone & synthroid per Endocrine - inhaled bronchodilators - O2 to keep SpO2 >90% - PO as tolerated - DVT/GI prophylaxis Dr Alonso
--- NOTE | 2019-09-11 12:21 | PN ---
Physical Exam: SUBJECTIVE: Patient seen and examined at the bedside. wants to go home, re assured her that we are working on a safe d/c plan for her. OBJECTIVE: Patient is a 54 year old female with a significant past medical history of hypertension, hyperlipidemia, diabetes, COPD, anemia, thyroid cancer 6 years ago (no prior admission to [facility]). Patient brought into the ED for altered mental status, acute shortness of breath, metabolic acidosis. She was found to have an elevated TSH, low t4 and hypothermic ([id number] mariana hugger). Urine was + for ecstasy. on admission had renal failure with a creat of 7.7, bun of 65,mag 1.6, elevated ast/alt. she was admitted to the ICU and since 09/04, is being monitored on med surg unit. She has been asking to leave an AMA, again discussed POC with patient, asked to to stay until we can set up dialysis for her as an outpatient. There are issues with her insurance currently and discharging her now is unsafe. she will be discharged when dialysis is set up for her and she is able to ambulate safely. Vital Signs Period Temp Pulse Resp BP Sys/Amos Pulse Ox Last 24 Hr 98.3 F-99.4 F 65-70 18-22 147-180/67-94 96 GENERAL: The patient is awake, alert, and fully oriented, calmer HEAD: Normal with no signs of trauma. EYES: PERRL, extraocular movements intact, sclera anicteric, conjunctiva clear. No ptosis. ENT: Ears normal, nares patent, oropharynx clear without exudates, moist mucous membranes. NECK: Trachea midline, full range of motion, supple. LUNGS: Breath sounds equal, clear to auscultation bilaterally HEART: Regular rate and rhythm ABDOMEN: Soft, nontender, nondistended, normoactive bowel sounds, no guarding, no rebound, no hepatosplenomegaly, no masses. EXTREMITIES: lower ext trace edema NEUROLOGICAL: awake, alert, cooperative, anxious at times. PSYCH: Normal mood, normal affect. SKIN: Warm, dry, normal turgor, no rashes or lesions noted Laboratory Results - last 24 hr 09/10/19 09/10/19 09/10/19 12:33 17:26 22:33 WBC RBC Hgb Hct MCV MCH MCHC RDW Plt Count MPV Absolute Neuts (auto) Neutrophils % Lymphocytes % Monocytes % Eosinophils % Basophils % Nucleated RBC % Sodium Potassium Chloride Carbon Dioxide Anion Gap BUN Creatinine Est GFR (CKD-EPI)AfAm Est GFR (CKD-EPI)NonAf POC Glucometer 100 156 129 Random Glucose Calcium Magnesium Total Bilirubin AST ALT Alkaline Phosphatase Total Protein Albumin 09/11/19 09/11/19 09/11/19 06:35 07:35 07:35 WBC 8.6 RBC 2.87 L Hgb 8.6 L Hct 25.5 L MCV 89.1 MCH 30.1 MCHC 33.8 RDW 15.5 Plt Count 242 MPV 8.9 Absolute Neuts (auto) 3.9 Neutrophils % 45.9 Lymphocytes % 48.9 H Monocytes % 4.7 Eosinophils % 0.0 Basophils % 0.5 Nucleated RBC % 0 Sodium 137 Potassium 3.6 Chloride 97 L Carbon Dioxide 32 Anion Gap 7 L BUN 19.5 H Creatinine 3.3 H Est GFR (CKD-EPI)AfAm 17.71 Est GFR (CKD-EPI)NonAf 15.28 POC Glucometer 94 Random Glucose 91 Calcium 8.4 L Magnesium 1.9 Total Bilirubin 0.5 AST 32 ALT 32 Alkaline Phosphatase 454 H Total Protein 6.3 L Albumin 2.4 L 09/11/19 11:04 WBC RBC Hgb Hct MCV MCH MCHC RDW Plt Count MPV Absolute Neuts (auto) Neutrophils % Lymphocytes % Monocytes % Eosinophils % Basophils % Nucleated RBC % Sodium Potassium Chloride Carbon Dioxide Anion Gap BUN Creatinine Est GFR (CKD-EPI)AfAm Est GFR (CKD-EPI)NonAf POC Glucometer 118 Random Glucose Calcium Magnesium Total Bilirubin AST ALT Alkaline Phosphatase Total Protein Albumin Active Medications Generic Name Dose Route Start Last Admin Trade Name Freq PRN Reason Stop Dose Admin Acetaminophen 650 mg 09/06/19 15:49 Tylenol - PO Q6H PRN Fever Or Pain Albuterol Sulfate 1 amp 09/07/19 11:08 09/08/19 15:05 Ventolin 0.083% Nebulizer Soln - NEB 1 amp Q4H PRN Administration SHORT OF BREATH/WHEEZING Amlodipine Besylate 10 mg 09/06/19 10:00 09/11/19 10:02 Norvasc - PO 10 mg DAILY [facility] Administration Atorvastatin Calcium 40 mg 09/06/19 22:00 09/10/19 22:34 Lipitor - PO 40 mg HS [facility] Administration Famotidine 20 mg 09/06/19 10:00 09/10/19 12:22 Acid Circular Sawyer Helper PO 20 mg Q2D [facility] Administration Heparin Sodium (Porcine) 5,000 unit 09/05/19 14:00 09/11/19 06:33 Heparin - SQ Not Given TID [facility] Hydrocortisone Sodium Succinate 25 mg 09/10/19 08:00 09/11/19 10:02 Solu-Cortef - IVPUSH 25 mg DAILY [facility] Administration Sodium Chloride 250 mls @ 3,000 mls/hr 09/08/19 13:00 Normal Saline - IV PRN PRN Hypotension during Dialysis Sodium Chloride 250 mls @ 3,000 mls/hr 09/09/19 14:04 Normal Saline - IV 09/10/19 14:04 PRN PRN Hypotension during Dialysis Insulin Aspart 1 vial 09/05/19 16:30 09/11/19 11:09 Novolog Vial Sliding Scale - SQ Not Given ACHS [facility] Protocol Labetalol HCl 200 mg 09/05/19 14:00 09/11/19 06:35 Normodyne - PO 200 mg TID [facility] Administration Levothyroxine Sodium 200 mcg/ 225 mcg 09/10/19 07:00 09/11/19 06:36 Levothyroxine Sodium 25 mcg PO 225 mcg DAILY@0700 [facility] Administration Paroxetine HCl 40 mg 09/06/19 10:00 09/11/19 10:02 Paxil - PO 40 mg DAILY [facility] Administration ASSESSMENT/PLAN: Problem List - Problems (1) Acute metabolic encephalopathy Assessment/Plan: resolved. psyche to assess capacity to make her own medical decisions. Code(s): G93.41 - METABOLIC ENCEPHALOPATHY (2) Myxedema coma Assessment/Plan: AMS resolved Taper IV hydrocortiosne: Change 25 QD If pt is discharged, Pt go go home on LT4 225 and Prednisone 10 mg QD for 2 days , then 5mg Qd for 2 days,and DC after that per Dr. Patterson Further, repat TFT in 2 weeks and change dose as necessary. Novolog SS coverage being followed by court transcriber Code(s): E03.5 - MYXEDEMA COMA (3) Hypercapnic respiratory failure Assessment/Plan: Intubated on admission, extubated on 09/03/19, now room air Code(s): J96.92 - RESPIRATORY FAILURE, UNSPECIFIED WITH HYPERCAPNIA (4) SOB (shortness of breath) Assessment/Plan: s/p intubation, now on room air Code(s): R06.02 - SHORTNESS OF BREATH (5) Morbid obesity Assessment/Plan: outpatient follow up Code(s): E66.01 - MORBID (SEVERE) OBESITY DUE TO EXCESS CALORIES (6) AMS (altered mental status) Assessment/Plan: see acute metabolic encephalopathy Code(s): R41.82 - ALTERED MENTAL STATUS, UNSPECIFIED (7) Acute renal failure Assessment/Plan: dialysis per renal Code(s): N17.9 - ACUTE KIDNEY FAILURE, UNSPECIFIED (8) Metabolic acidosis Assessment/Plan: hydrocortisone taper for possible adrenal insufficiency Code(s): E87.2 - ACIDOSIS (9) Diabetes Assessment/Plan: bgms ac/hs followed by court transcriber Code(s): E11.9 - TYPE 2 DIABETES MELLITUS WITHOUT COMPLICATIONS (10) Hypothermia Assessment/Plan: ID following, completed meropenem blood cultures negative and urine cultures + with 50-[address] + sputum/lactose fermenting bacteria/yeast/serratia Code(s): T68.XXXA - HYPOTHERMIA, INITIAL ENCOUNTER (11) Anemia Assessment/Plan: received 1 PRBC since admission Hgb stable continue to monitor Code(s): D64.9 - ANEMIA, UNSPECIFIED (12) HLD (hyperlipidemia) Code(s): E78.5 - HYPERLIPIDEMIA, UNSPECIFIED (13) DVT prophylaxis Assessment/Plan: on heparin tid Code(s): Z29.9 - ENCOUNTER FOR PROPHYLACTIC MEASURES, UNSPECIFIED Visit type - Emergency Visit Emergency Visit: Yes ED Registration Date: 08/25/19 Care time: The patient presented to the Emergency Department on the above date and was hospitalized for further evaluation of their emergent condition. - New Patient This patient is new to me today: No - Critical Care Critical Care patient: No - Discharge Referral Referred to [facility] Med [facility].C[facility] No
--- NOTE | 2019-09-11 14:46 | PN ---
Progress Note, Physician History of Present Illness: stable no new issues - Current Medication List Current Medications: Active Medications Acetaminophen (Tylenol -) 650 mg PO Q6H PRN PRN Reason: Fever Or Pain Albuterol Sulfate (Ventolin 0.083% Nebulizer Soln -) 1 amp NEB Q4H PRN PRN Reason: SHORT OF BREATH/WHEEZING Last Admin: 09/08/19 15:05 Dose: 1 amp Amlodipine Besylate (Norvasc -) 10 mg PO DAILY [facility] Last Admin: 09/11/19 10:02 Dose: 10 mg Atorvastatin Calcium (Lipitor -) 40 mg PO HS [facility] Last Admin: 09/10/19 22:34 Dose: 40 mg Famotidine (Acid Fish Header) 20 mg PO Q2D [facility] Last Admin: 09/10/19 12:22 Dose: 20 mg Heparin Sodium (Porcine) (Heparin -) 5,000 unit SQ TID [facility] Last Admin: 09/11/19 14:30 Dose: Not Given Hydrocortisone Sodium Succinate (Solu-Cortef -) 25 mg IVPUSH DAILY [facility] Last Admin: 09/11/19 10:02 Dose: 25 mg Sodium Chloride (Normal Saline -) 250 mls @ 3,000 mls/hr IV PRN PRN PRN Reason: Hypotension during Dialysis Sodium Chloride (Normal Saline -) 250 mls @ 3,000 mls/hr IV PRN PRN PRN Reason: Hypotension during Dialysis Stop: 09/10/19 14:04 Insulin Aspart (Novolog Vial Sliding Scale -) 1 vial SQ [facility]; Protocol Last Admin: 09/11/19 11:09 Dose: Not Given Labetalol HCl (Normodyne -) 200 mg PO TID [facility] Last Admin: 09/11/19 14:29 Dose: 200 mg Levothyroxine Sodium 200 mcg/ (Levothyroxine Sodium 25 mcg) 225 mcg PO DAILY@ 0700 [facility] Last Admin: 09/11/19 06:36 Dose: 225 mcg Paroxetine HCl (Paxil -) 40 mg PO DAILY [facility] Last Admin: 09/11/19 10:02 Dose: 40 mg - Objective Vital Signs: Vital Signs Temperature 98.7 F 09/11/19 06:00 Pulse Rate 67 09/11/19 06:00 Respiratory Rate 20 09/11/19 06:00 Blood Pressure 161/68 09/11/19 06:00 O2 Sat by Pulse Oximetry (%) 96 09/10/19 21:00 Constitutional: Yes: No Distress, Calm, Obese Cardiovascular: Yes: S1, S2 Respiratory: Yes: Regular, CTA Bilaterally Gastrointestinal: Yes: Normal Bowel Sounds, Soft Musculoskeletal: Yes: WNL Extremities: Yes: WNL Neurological: Yes: Alert, Oriented Psychiatric: Yes: Alert, Oriented Labs: CBC, BMP 09/11/19 07:35 09/11/19 07:35 INR, PTT INR 0.99 (0.83-1.09) 09/05/19 13:45 Assessment/Plan Problem List - Problems (1) LUCY (acute kidney injury) Code(s): N17.9 - ACUTE KIDNEY FAILURE, UNSPECIFIED (2) AMS (altered mental status) Code(s): R41.82 - ALTERED MENTAL STATUS, UNSPECIFIED (3) Acute metabolic encephalopathy Code(s): G93.41 - METABOLIC ENCEPHALOPATHY (4) Acute respiratory failure Code(s): J96.00 - ACUTE RESPIRATORY FAILURE, UNSP W HYPOXIA OR HYPERCAPNIA (5) Anemia Code(s): D64.9 - ANEMIA, UNSPECIFIED (6) COPD (chronic obstructive pulmonary disease) Code(s): J44.9 - CHRONIC OBSTRUCTIVE PULMONARY DISEASE, UNSPECIFIED (7) Diabetes Code(s): E11.9 - TYPE 2 DIABETES MELLITUS WITHOUT COMPLICATIONS (8) HTN (hypertension) Code(s): I10 - ESSENTIAL (PRIMARY) HYPERTENSION (9) Hypercapnic respiratory failure Code(s): J96.92 - RESPIRATORY FAILURE, UNSPECIFIED WITH HYPERCAPNIA (10) Hypothermia Code(s): T68.XXXA - HYPOTHERMIA, INITIAL ENCOUNTER (11) Morbid obesity Code(s): E66.01 - MORBID (SEVERE) OBESITY DUE TO EXCESS CALORIES (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
--- NOTE | 2019-09-11 18:19 | PN ---
Progress Note, Physician History of Present Illness: Pt seen and examined at bedside. She is awake and appears comfortable. She denies shortness of breath. - Current Medication List Current Medications: Active Medications Acetaminophen (Tylenol -) 650 mg PO Q6H PRN PRN Reason: Fever Or Pain Albuterol Sulfate (Ventolin 0.083% Nebulizer Soln -) 1 amp NEB Q4H PRN PRN Reason: SHORT OF BREATH/WHEEZING Last Admin: 09/08/19 15:05 Dose: 1 amp Amlodipine Besylate (Norvasc -) 10 mg PO DAILY [facility] Last Admin: 09/11/19 10:02 Dose: 10 mg Atorvastatin Calcium (Lipitor -) 40 mg PO HS [facility] Last Admin: 09/10/19 22:34 Dose: 40 mg Famotidine (Acid Playground Worker) 20 mg PO Q2D [facility] Last Admin: 09/10/19 12:22 Dose: 20 mg Heparin Sodium (Porcine) (Heparin -) 5,000 unit SQ TID [facility] Last Admin: 09/11/19 14:30 Dose: Not Given Hydrocortisone Sodium Succinate (Solu-Cortef -) 25 mg IVPUSH DAILY [facility] Last Admin: 09/11/19 10:02 Dose: 25 mg Sodium Chloride (Normal Saline -) 250 mls @ 3,000 mls/hr IV PRN PRN PRN Reason: Hypotension during Dialysis Sodium Chloride (Normal Saline -) 250 mls @ 3,000 mls/hr IV PRN PRN PRN Reason: Hypotension during Dialysis Stop: 09/10/19 14:04 Insulin Aspart (Novolog Vial Sliding Scale -) 1 vial SQ ACHS [facility]; Protocol Last Admin: 09/11/19 17:53 Dose: Not Given Labetalol HCl (Normodyne -) 200 mg PO TID [facility] Last Admin: 09/11/19 14:29 Dose: 200 mg Levothyroxine Sodium 200 mcg/ (Levothyroxine Sodium 25 mcg) 225 mcg PO DAILY@ 0700 [facility] Last Admin: 09/11/19 06:36 Dose: 225 mcg Paroxetine HCl (Paxil -) 40 mg PO DAILY [facility] Last Admin: 09/11/19 10:02 Dose: 40 mg - Objective Vital Signs: Vital Signs Temperature 98.9 F 09/11/19 15:26 Pulse Rate 65 09/11/19 15:26 Respiratory Rate 20 09/11/19 15:26 Blood Pressure 143/77 09/11/19 15:26 O2 Sat by Pulse Oximetry (%) 98 09/11/19 18:03 Constitutional: Yes: Calm Eyes: Yes: Conjunctiva Clear HENT: Yes: Atraumatic Neck: Yes: Supple Cardiovascular: Yes: S1, S2 Respiratory: Yes: CTA Bilaterally Gastrointestinal: Yes: Soft, Abdomen, Obese Genitourinary: Yes: WNL Musculoskeletal: Yes: WNL Edema: No Integumentary: Yes: Tattoos Neurological: Yes: Oriented Psychiatric: Yes: Oriented Labs: CBC, BMP 09/11/19 07:35 09/11/19 07:35 INR, PTT INR 0.99 (0.83-1.09) 09/05/19 13:45 Problem List - Problems (1) AMS (altered mental status) Code(s): R41.82 - ALTERED MENTAL STATUS, UNSPECIFIED (2) Acute metabolic encephalopathy Code(s): G93.41 - METABOLIC ENCEPHALOPATHY (3) Acute renal failure Code(s): N17.9 - ACUTE KIDNEY FAILURE, UNSPECIFIED (4) Diabetes Code(s): E11.9 - TYPE 2 DIABETES MELLITUS WITHOUT COMPLICATIONS (5) Hypercapnic respiratory failure Code(s): J96.92 - RESPIRATORY FAILURE, UNSPECIFIED WITH HYPERCAPNIA (6) Hypothermia Code(s): T68.XXXA - HYPOTHERMIA, INITIAL ENCOUNTER (7) Morbid obesity Code(s): E66.01 - MORBID (SEVERE) OBESITY DUE TO EXCESS CALORIES Assessment/Plan Current Medications Generic Name Dose Route Start Last Admin Trade Name Freq PRN Reason Stop Dose Admin Acetaminophen 650 mg 09/06/19 15:49 Tylenol - PO Q6H PRN Fever Or Pain Albuterol Sulfate 1 amp 09/07/19 11:08 09/08/19 15:05 Ventolin 0.083% Nebulizer Soln - NEB 1 amp Q4H PRN Administration SHORT OF BREATH/WHEEZING Amlodipine Besylate 10 mg 09/06/19 10:00 09/11/19 10:02 Norvasc - PO 10 mg DAILY [facility] Administration Atorvastatin Calcium 40 mg 09/06/19 22:00 09/10/19 22:34 Lipitor - PO 40 mg HS [facility] Administration Famotidine 20 mg 09/06/19 10:00 09/10/19 12:22 Acid Playground Worker PO 20 mg Q2D [facility] Administration Heparin Sodium (Porcine) 5,000 unit 09/05/19 14:00 09/11/19 14:30 Heparin - SQ Not Given TID [facility] Hydrocortisone Sodium Succinate 25 mg 09/10/19 08:00 09/11/19 10:02 Solu-Cortef - IVPUSH 25 mg DAILY [facility] Administration Sodium Chloride 250 mls @ 3,000 mls/hr 09/08/19 13:00 Normal Saline - IV PRN PRN Hypotension during Dialysis Sodium Chloride 250 mls @ 3,000 mls/hr 09/09/19 14:04 Normal Saline - IV 09/10/19 14:04 PRN PRN Hypotension during Dialysis Insulin Aspart 1 vial 09/05/19 16:30 09/11/19 17:53 Novolog Vial Sliding Scale - SQ Not Given ACHS [facility] Protocol Labetalol HCl 200 mg 09/05/19 14:00 09/11/19 14:29 Normodyne - PO 200 mg TID [facility] Administration Levothyroxine Sodium 200 mcg/ 225 mcg 09/10/19 07:00 09/11/19 06:36 Levothyroxine Sodium 25 mcg PO 225 mcg DAILY@0700 [facility] Administration Paroxetine HCl 40 mg 09/06/19 10:00 09/11/19 10:02 Paxil - PO 40 mg DAILY [facility] Administration Impression 1. LUCY 2. fluid overload 3. acute respiratory failure 4. hypothyroidism with tsh of 100 5. 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 urine tox pos for mdma 7. mild rhabdo 8. hepatitis B Plan - pt had HD yesterday - check bmp in am - discussed kidney biopsy with her, she does not want any more procedures on this admission and is asking to go home - pt/rehab eval and follow up - serologies negative - pt does not want her son as HCP and asks that her daughter be assigned
[2019-09-11] MEDS: ATORVASTATIN CA 40 MG TABLET (FP) PO SCH (21:50)
[2019-09-12] MEDS ORDERED: LEVOTHYROXINE NA 200 MCG TABLET ONE (05:39)
[2019-09-12] MEDS ORDERED: LEVOTHYROXINE NA 25 MCG TABLET (FP) ONE (05:39)
[2019-09-12] MEDS: LABETALOL HCL 100 MG TABLET (FP) PO SCH ×3 (06:10→22:01)
[2019-09-12] MEDS: INSULIN SLIDING SCALE (NOVOLOG) 1 VIAL SQ SCH ×4 (06:11→22:00)
[2019-09-12] MEDS: LEVOTHYROXINE 200 MCG, LEVOTHYROXINE 25 MCG PO SCH (06:11)
[2019-09-12] MEDS: HEPARIN NA (PORCINE) 5,000 UNITS/ML 1ML VIAL SQ SCH (06:11)
[2019-09-12 08:13] LABS: ALBUMIN 2.4 g/dl (3.4-5.0); BILIRUBIN,TOTAL 0.5 mg/dL (0.2-1); BLOOD UREA NITROGEN 24.6 mg/dL (7-18); MAGNESIUM 1.8 mg/dL (1.8-2.4); POTASSIUM 3.6 mmol/L (3.5-5.1); TOT PROT 5.8 g/dl (6.4-8.2)
[2019-09-12 09:47] LABS: BASO % 0.6 % (0-2.0); HEMATOCRIT 25.6 % (32.4-45.2); HEMOGLOBIN 8.5 GM/dL (10.7-15.3); LYMPH % 39.9 % (8-40); MCH 29.9 pg (25.7-33.7); MCHC 33.4 g/dl (32.0-36.0); MEAN CELL VOLUME 89.5 fl (80-96); MEAN PLT VOLUME 8.9 fl (7.5-11.1); MONO % 5.2 % (3.8-10.2); NEUT % 54.3 % (42.8-82.8); PLATELET COUNT 228 K/MM3 (134-434); RBC 2.85 M/mm3 (3.60-5.2); RDW 15.9 % (11.6-15.6); WHITE BLOOD COUNT 7.8 K/mm3 (4.0-10.0)
--- NOTE | 2019-09-12 10:31 | PN ---
Progress Note, Physician History of Present Illness: stable no new issues - Current Medication List Current Medications: Active Medications Acetaminophen (Tylenol -) 650 mg PO Q6H PRN PRN Reason: Fever Or Pain Albuterol Sulfate (Ventolin 0.083% Nebulizer Soln -) 1 amp NEB Q4H PRN PRN Reason: SHORT OF BREATH/WHEEZING Last Admin: 09/08/19 15:05 Dose: 1 amp Amlodipine Besylate (Norvasc -) 10 mg PO DAILY [facility] Last Admin: 09/11/19 10:02 Dose: 10 mg Atorvastatin Calcium (Lipitor -) 40 mg PO HS [facility] Last Admin: 09/11/19 21:50 Dose: 40 mg Famotidine (Acid Corporate Traffic Manager) 20 mg PO Q2D [facility] Last Admin: 09/10/19 12:22 Dose: 20 mg Heparin Sodium (Porcine) (Heparin -) 5,000 unit SQ TID [facility] Last Admin: 09/12/19 06:11 Dose: Not Given Hydrocortisone Sodium Succinate (Solu-Cortef -) 25 mg IVPUSH DAILY [facility] Last Admin: 09/11/19 10:02 Dose: 25 mg Sodium Chloride (Normal Saline -) 250 mls @ 3,000 mls/hr IV PRN PRN PRN Reason: Hypotension during Dialysis Sodium Chloride (Normal Saline -) 250 mls @ 3,000 mls/hr IV PRN PRN PRN Reason: Hypotension during Dialysis Stop: 09/10/19 14:04 Insulin Aspart (Novolog Vial Sliding Scale -) 1 vial SQ [facility]; Protocol Last Admin: 09/12/19 06:11 Dose: Not Given Labetalol HCl (Normodyne -) 200 mg PO TID [facility] Last Admin: 09/12/19 06:10 Dose: 200 mg Levothyroxine Sodium 200 mcg/ (Levothyroxine Sodium 25 mcg) 225 mcg PO DAILY@ 0700 [facility] Last Admin: 09/12/19 06:11 Dose: 225 mcg Paroxetine HCl (Paxil -) 40 mg PO DAILY [facility] Last Admin: 09/11/19 10:02 Dose: 40 mg - Objective Vital Signs: Vital Signs Temperature 98.8 F 09/12/19 06:00 Pulse Rate 62 09/12/19 06:00 Respiratory Rate 20 09/12/19 06:00 Blood Pressure 148/75 09/12/19 06:00 O2 Sat by Pulse Oximetry (%) 97 09/11/19 21:00 Constitutional: Yes: No Distress, Calm Cardiovascular: Yes: S1, S2 Respiratory: Yes: Regular, CTA Bilaterally Gastrointestinal: Yes: Normal Bowel Sounds, Soft Musculoskeletal: Yes: WNL Extremities: Yes: WNL Neurological: Yes: Alert Psychiatric: Yes: Alert Labs: CBC, BMP 09/12/19 09:20 09/12/19 06:25 INR, PTT INR 0.99 (0.83-1.09) 09/05/19 13:45 Assessment/Plan Problem List - Problems (1) LUCY (acute kidney injury) Code(s): N17.9 - ACUTE KIDNEY FAILURE, UNSPECIFIED (2) AMS (altered mental status) Code(s): R41.82 - ALTERED MENTAL STATUS, UNSPECIFIED (3) Acute metabolic encephalopathy Code(s): G93.41 - METABOLIC ENCEPHALOPATHY (4) Acute respiratory failure Code(s): J96.00 - ACUTE RESPIRATORY FAILURE, UNSP W HYPOXIA OR HYPERCAPNIA (5) Anemia Code(s): D64.9 - ANEMIA, UNSPECIFIED (6) COPD (chronic obstructive pulmonary disease) Code(s): J44.9 - CHRONIC OBSTRUCTIVE PULMONARY DISEASE, UNSPECIFIED (7) Diabetes Code(s): E11.9 - TYPE 2 DIABETES MELLITUS WITHOUT COMPLICATIONS (8) HTN (hypertension) Code(s): I10 - ESSENTIAL (PRIMARY) HYPERTENSION (9) Hypercapnic respiratory failure Code(s): J96.92 - RESPIRATORY FAILURE, UNSPECIFIED WITH HYPERCAPNIA (10) Hypothermia Code(s): T68.XXXA - HYPOTHERMIA, INITIAL ENCOUNTER (11) Morbid obesity Code(s): E66.01 - MORBID (SEVERE) OBESITY DUE TO EXCESS CALORIES (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
--- NOTE | 2019-09-12 11:14 | PN ---
Progress Note (short form) - Note Progress Note: PULMONARY Awake, alert. Denies shortness of breath. Vital Signs Period Temp Pulse Resp BP Sys/Amos Pulse Ox Last 24 Hr 98.8 F-99.0 F 62-66 20-20 140-148/75-82 97-98 Gen: NAD at rest Heart: RRR Lung: decreased breath sounds at the bases Abd: soft, nontender Ext: no edema CBC, BMP 09/12/19 09:20 09/12/19 06:25 Active Medications Acetaminophen (Tylenol -) 650 mg PO Q6H PRN PRN Reason: Fever Or Pain Amlodipine Besylate (Norvasc -) 10 mg PO DAILY [facility] Last Admin: 09/11/19 10:02 Dose: 10 mg Atorvastatin Calcium (Lipitor -) 40 mg PO HS [facility] Last Admin: 09/11/19 21:50 Dose: 40 mg Famotidine (Acid Personal Shopper) 20 mg PO Q2D [facility] Last Admin: 09/10/19 12:22 Dose: 20 mg Heparin Sodium (Porcine) (Heparin -) 5,000 unit SQ TID [facility] Last Admin: 09/12/19 06:11 Dose: Not Given Hydrocortisone Sodium Succinate (Solu-Cortef -) 25 mg IVPUSH DAILY [facility] Last Admin: 09/11/19 10:02 Dose: 25 mg Sodium Chloride (Normal Saline -) 250 mls @ 3,000 mls/hr IV PRN PRN PRN Reason: Hypotension during Dialysis Sodium Chloride (Normal Saline -) 250 mls @ 3,000 mls/hr IV PRN PRN PRN Reason: Hypotension during Dialysis Stop: 09/10/19 14:04 Insulin Aspart (Novolog Vial Sliding Scale -) 1 vial SQ [facility]; Protocol Last Admin: 09/12/19 06:11 Dose: Not Given Labetalol HCl (Normodyne -) 200 mg PO TID [facility] Last Admin: 09/12/19 06:10 Dose: 200 mg Levothyroxine Sodium 200 mcg/ (Levothyroxine Sodium 25 mcg) 225 mcg PO DAILY@ 0700 [facility] Last Admin: 09/12/19 06:11 Dose: 225 mcg Paroxetine HCl (Paxil -) 40 mg PO DAILY [facility] Last Admin: 09/11/19 10:02 Dose: 40 mg A/P Acute Hypercapneic Respiratory Failure improving Myxedema Coma resolving UTI Acute Kidney Injury requiring HD Volume Overload improving Pleural Effusions COPD DM Anemia - HD per renal with ultrafiltration - monitor urine output, creatinine - completed antibiotics - hydrocortisone & synthroid per endocrine - inhaled bronchodilators - O2 to keep SpO2 >90% - PO as tolerated - DVT prophylaxis
[2019-09-12] MEDS: PARoxetine HCL 20 MG TABLET PO SCH (11:30)
[2019-09-12] MEDS: amLODIPine BESYLATE 10 MG TABLET (FP) PO SCH (11:31)
[2019-09-12] MEDS: FAMOTIDINE 10 MG TABLET PO SCH (11:31)
[2019-09-12] MEDS: HYDROCORTISONE SOD SUCCINATE 100 MG/2 ML VIAL IVPUSH SCH (11:33)
--- NOTE | 2019-09-12 13:07 | PN ---
Progress Note, COLLEGE ATHLETIC DIRECTOR - Note Progress Note: Selected Entries 09/08/19 09/08/19 09/08/19 10:00 10:33 15:44 Breakfast 25% Supper Temperature 98.6 F 98.8 F 09/08/19 09/09/19 18:00 02:00 Breakfast Supper 0 Temperature 98.9 F 99.7 F H Laboratory Tests 09/08/19 09/09/19 06:22 08:05 WBC 9.2 10.4 H Selected Entries 09/11/19 09/11/19 15:26 18:00 Breakfast 25% Lunch 0 Supper 0 Laboratory Tests 09/12/19 06:25 WBC Cancelled Continued limited appetite. Pt denies Odynophagia or Dysphagia. Trial of diet upgrade to soft reg/thin liquids.
--- NOTE | 2019-09-12 13:47 | PN ---
Physical Exam: SUBJECTIVE: Patient seen and examined at the bedside. again asking to leave the hospital against medical advice. she has capacity to do so per psyche, but again spoke to her about how it is unsafe for her to leave ama because she cannot ambulate safely and no dialysis center has been set up for her secondary to insurance issues. discussed this numerous times with her and explained the risk of leaving AMA such as sudden and renal failure. asked her to re consider her decision to sign out ama. OBJECTIVE: Patient is a 54 year old female with a significant past medical history of hypertension, hyperlipidemia, diabetes, COPD, anemia, thyroid cancer 6 years ago (no prior admission to [facility]). Patient brought into the ED for altered mental status, acute shortness of breath, metabolic acidosis. She was found to have an elevated TSH, low t4 and hypothermic ([id number] mariana hugger). Urine was + for ecstasy. on admission had renal failure with a creat of 7.7, bun of 65,mag 1.6, elevated ast/alt. she was admitted to the ICU and since 09/04, is being monitored on med surg unit. Vital Signs Period Temp Pulse Resp BP Sys/Amos Pulse Ox Last 24 Hr 98.8 F-99.0 F 62-66 20-20 140-148/75-82 97-98 GENERAL: The patient is awake, alert, and fully oriented, calmer HEAD: Normal with no signs of trauma. EYES: PERRL, extraocular movements intact, sclera anicteric, conjunctiva clear. No ptosis. ENT: Ears normal, nares patent, oropharynx clear without exudates, moist mucous membranes. NECK: Trachea midline, full range of motion, supple. LUNGS: Breath sounds equal, clear to auscultation bilaterally HEART: Regular rate and rhythm ABDOMEN: Soft, nontender, nondistended, normoactive bowel sounds, no guarding, no rebound, no hepatosplenomegaly, no masses. EXTREMITIES: lower ext trace edema NEUROLOGICAL: awake, alert, cooperative, anxious at times. PSYCH: Normal mood, normal affect. SKIN: Warm, dry, normal turgor, no rashes or lesions noted Laboratory Results - last 24 hr 09/11/19 09/11/19 09/12/19 17:36 21:20 06:09 WBC Corrected WBC (auto) RBC Hgb Hct MCV MCH MCHC RDW Plt Count MPV Absolute Neuts (auto) Neutrophils % Lymphocytes % Monocytes % Eosinophils % Basophils % Nucleated RBC % Platelet Estimate Platelet Comment Sodium Potassium Chloride Carbon Dioxide Anion Gap BUN Creatinine Est GFR (CKD-EPI)AfAm Est GFR (CKD-EPI)NonAf POC Glucometer 138 106 90 Random Glucose Hemoglobin A1c % Calcium Magnesium Total Bilirubin AST ALT Alkaline Phosphatase Total Protein Albumin 09/12/19 09/12/19 09/12/19 06:25 06:25 09:20 WBC Cancelled Corrected WBC (auto) Cancelled RBC Cancelled Hgb Cancelled Hct Cancelled MCV Cancelled MCH Cancelled MCHC Cancelled RDW Cancelled Plt Count Cancelled MPV Cancelled Absolute Neuts (auto) Cancelled Neutrophils % Cancelled Lymphocytes % Cancelled Monocytes % Cancelled Eosinophils % Cancelled Basophils % Cancelled Nucleated RBC % Cancelled Platelet Estimate Cancelled Platelet Comment Cancelled Sodium 138 Potassium 3.6 Chloride 101 Carbon Dioxide 26 Anion Gap 11 BUN 24.6 H Creatinine 4.0 H Est GFR (CKD-EPI)AfAm 14.04 Est GFR (CKD-EPI)NonAf 12.11 POC Glucometer Random Glucose 81 Hemoglobin A1c % 6.6 H Calcium 8.0 L Magnesium 1.8 Total Bilirubin 0.5 AST 36 ALT 31 Alkaline Phosphatase 427 H Total Protein 5.8 L Albumin 2.4 L 09/12/19 09:20 WBC 7.8 Corrected WBC (auto) RBC 2.85 L Hgb 8.5 L Hct 25.6 L MCV 89.5 MCH 29.9 MCHC 33.4 RDW 15.9 H Plt Count 228 MPV 8.9 Absolute Neuts (auto) 4.2 Neutrophils % 54.3 Lymphocytes % 39.9 Monocytes % 5.2 Eosinophils % 0.0 Basophils % 0.6 Nucleated RBC % 0 Platelet Estimate Platelet Comment Sodium Potassium Chloride Carbon Dioxide Anion Gap BUN Creatinine Est GFR (CKD-EPI)AfAm Est GFR (CKD-EPI)NonAf POC Glucometer Random Glucose Hemoglobin A1c % Calcium Magnesium Total Bilirubin AST ALT Alkaline Phosphatase Total Protein Albumin Active Medications Generic Name Dose Route Start Last Admin Trade Name Freq PRN Reason Stop Dose Admin Acetaminophen 650 mg 09/06/19 15:49 Tylenol - PO Q6H PRN Fever Or Pain Amlodipine Besylate 10 mg 09/06/19 10:00 09/12/19 11:31 Norvasc - PO 10 mg DAILY [facility] Administration Atorvastatin Calcium 40 mg 09/06/19 22:00 09/11/19 21:50 Lipitor - PO 40 mg HS [facility] Administration Famotidine 20 mg 09/06/19 10:00 09/12/19 11:31 Acid Overcoil Stepper PO 20 mg Q2D [facility] Administration Heparin Sodium (Porcine) 5,000 unit 09/05/19 14:00 09/12/19 06:11 Heparin - SQ Not Given TID [facility] Hydrocortisone Sodium Succinate 25 mg 09/10/19 08:00 09/12/19 11:33 Solu-Cortef - IVPUSH 25 mg DAILY [facility] Administration Sodium Chloride 250 mls @ 3,000 mls/hr 09/08/19 13:00 Normal Saline - IV PRN PRN Hypotension during Dialysis Sodium Chloride 250 mls @ 3,000 mls/hr 09/09/19 14:04 Normal Saline - IV 09/10/19 14:04 PRN PRN Hypotension during Dialysis Insulin Aspart 1 vial 09/05/19 16:30 09/12/19 11:33 Novolog Vial Sliding Scale - SQ Not Given ACHS [facility] Protocol Labetalol HCl 200 mg 09/05/19 14:00 09/12/19 06:10 Normodyne - PO 200 mg TID [facility] Administration Levothyroxine Sodium 200 mcg/ 225 mcg 09/10/19 07:00 09/12/19 06:11 Levothyroxine Sodium 25 mcg PO 225 mcg DAILY@0700 [facility] Administration Paroxetine HCl 40 mg 09/06/19 10:00 09/12/19 11:30 Paxil - PO 40 mg DAILY [facility] Administration ASSESSMENT/PLAN: Problem List - Problems (1) Acute metabolic encephalopathy Assessment/Plan: resolved. patient deemed safe to make her own medical decisions. Code(s): G93.41 - METABOLIC ENCEPHALOPATHY (2) Myxedema coma Assessment/Plan: AMS resolved Taper IV hydrocortiosne: Change 25 QD If pt is discharged, Pt go go home on LT4 225 and Prednisone 10 mg QD for 2 days , then 5mg Qd for 2 days,and DC after that per Dr. Patterson Further, repeat TFT in 2 weeks and change dose as necessary. Novolog SS coverage being followed by cell pourer Code(s): E03.5 - MYXEDEMA COMA (3) Hypercapnic respiratory failure Assessment/Plan: Intubated on admission, extubated on 09/03/19, now room air Code(s): J96.92 - RESPIRATORY FAILURE, UNSPECIFIED WITH HYPERCAPNIA (4) SOB (shortness of breath) Assessment/Plan: s/p intubation, now on room air Code(s): R06.02 - SHORTNESS OF BREATH (5) Morbid obesity Assessment/Plan: outpatient follow up Code(s): E66.01 - MORBID (SEVERE) OBESITY DUE TO EXCESS CALORIES (6) AMS (altered mental status) Assessment/Plan: see acute metabolic encephalopathy Code(s): R41.82 - ALTERED MENTAL STATUS, UNSPECIFIED (7) Acute renal failure Assessment/Plan: dialysis per renal Code(s): N17.9 - ACUTE KIDNEY FAILURE, UNSPECIFIED (8) Metabolic acidosis Assessment/Plan: hydrocortisone taper for possible adrenal insufficiency Code(s): E87.2 - ACIDOSIS (9) Diabetes Assessment/Plan: [facility] ac/hs followed by cell pourer Code(s): E11.9 - TYPE 2 DIABETES MELLITUS WITHOUT COMPLICATIONS (10) Hypothermia Assessment/Plan: ID following, completed meropenem blood cultures negative and urine cultures + with 50-[address] + sputum/lactose fermenting bacteria/yeast/serratia Code(s): T68.XXXA - HYPOTHERMIA, INITIAL ENCOUNTER (11) Anemia Assessment/Plan: received 1 PRBC since admission Hgb stable continue to monitor Code(s): D64.9 - ANEMIA, UNSPECIFIED (12) HLD (hyperlipidemia) Code(s): E78.5 - HYPERLIPIDEMIA, UNSPECIFIED (13) DVT prophylaxis Assessment/Plan: on heparin tid Code(s): Z29.9 - ENCOUNTER FOR PROPHYLACTIC MEASURES, UNSPECIFIED Visit type - Emergency Visit Emergency Visit: Yes ED Registration Date: 08/25/19 Care time: The patient presented to the Emergency Department on the above date and was hospitalized for further evaluation of their emergent condition. - New Patient This patient is new to me today: No - Critical Care Critical Care patient: No - Discharge Referral Referred to [facility] Med P.C[facility] No
--- NOTE | 2019-09-12 16:35 | PN ---
Progress Note, Physician History of Present Illness: Pt seen and examined at bedside. She is awake and alert. She is asking to go home. She does not have HD set up yet secondary to her insurance issues. - Current Medication List Current Medications: Active Medications Acetaminophen (Tylenol -) 650 mg PO Q6H PRN PRN Reason: Fever Or Pain Amlodipine Besylate (Norvasc -) 10 mg PO DAILY [facility] Last Admin: 09/12/19 11:31 Dose: 10 mg Atorvastatin Calcium (Lipitor -) 40 mg PO HS [facility] Last Admin: 09/11/19 21:50 Dose: 40 mg Famotidine (Acid Crosscutter Rolled Glass) 20 mg PO Q2D [facility] Last Admin: 09/12/19 11:31 Dose: 20 mg Hydrocortisone Sodium Succinate (Solu-Cortef -) 25 mg IVPUSH DAILY [facility] Last Admin: 09/12/19 11:33 Dose: 25 mg Sodium Chloride (Normal Saline -) 250 mls @ 3,000 mls/hr IV PRN PRN PRN Reason: Hypotension during Dialysis Insulin Aspart (Novolog Vial Sliding Scale -) 1 vial SQ ACHS [facility]; Protocol Last Admin: 09/12/19 11:33 Dose: Not Given Labetalol HCl (Normodyne -) 200 mg PO TID [facility] Last Admin: 09/12/19 06:10 Dose: 200 mg Levothyroxine Sodium 200 mcg/ (Levothyroxine Sodium 25 mcg) 225 mcg PO DAILY@ 0700 [facility] Last Admin: 09/12/19 06:11 Dose: 225 mcg Paroxetine HCl (Paxil -) 40 mg PO DAILY [facility] Last Admin: 09/12/19 11:30 Dose: 40 mg - Objective Vital Signs: Vital Signs Temperature 99.2 F 09/12/19 14:59 Pulse Rate 62 09/12/19 14:59 Respiratory Rate 20 09/12/19 14:59 Blood Pressure 149/74 09/12/19 14:59 O2 Sat by Pulse Oximetry (%) 97 09/12/19 09:00 Constitutional: Yes: Calm Eyes: Yes: Conjunctiva Clear HENT: Yes: Atraumatic Neck: Yes: Supple Cardiovascular: Yes: S1, S2 Respiratory: Yes: CTA Bilaterally Gastrointestinal: Yes: Soft, Abdomen, Obese Genitourinary: Yes: WNL Musculoskeletal: Yes: WNL Edema: No Neurological: Yes: Oriented Psychiatric: Yes: Oriented Labs: CBC, BMP 09/12/19 09:20 09/12/19 06:25 INR, PTT INR 0.99 (0.83-1.09) 09/05/19 13:45 Problem List - Problems (1) AMS (altered mental status) Code(s): R41.82 - ALTERED MENTAL STATUS, UNSPECIFIED (2) Acute metabolic encephalopathy Code(s): G93.41 - METABOLIC ENCEPHALOPATHY (3) Acute renal failure Code(s): N17.9 - ACUTE KIDNEY FAILURE, UNSPECIFIED (4) Diabetes Code(s): E11.9 - TYPE 2 DIABETES MELLITUS WITHOUT COMPLICATIONS (5) Hypercapnic respiratory failure Code(s): J96.92 - RESPIRATORY FAILURE, UNSPECIFIED WITH HYPERCAPNIA (6) Hypothermia Code(s): T68.XXXA - HYPOTHERMIA, INITIAL ENCOUNTER (7) Morbid obesity Code(s): E66.01 - MORBID (SEVERE) OBESITY DUE TO EXCESS CALORIES Assessment/Plan Current Medications Generic Name Dose Route Start Last Admin Trade Name Freq PRN Reason Stop Dose Admin Acetaminophen 650 mg 09/06/19 15:49 Tylenol - PO Q6H PRN Fever Or Pain Amlodipine Besylate 10 mg 09/06/19 10:00 09/12/19 11:31 Norvasc - PO 10 mg DAILY [facility] Administration Atorvastatin Calcium 40 mg 09/06/19 22:00 09/11/19 21:50 Lipitor - PO 40 mg HS [facility] Administration Famotidine 20 mg 09/06/19 10:00 09/12/19 11:31 Acid Crosscutter Rolled Glass PO 20 mg Q2D [facility] Administration Hydrocortisone Sodium Succinate 25 mg 09/10/19 08:00 09/12/19 11:33 Solu-Cortef - IVPUSH 25 mg DAILY [facility] Administration Sodium Chloride 250 mls @ 3,000 mls/hr 09/08/19 13:00 Normal Saline - IV PRN PRN Hypotension during Dialysis Insulin Aspart 1 vial 09/05/19 16:30 09/12/19 11:33 Novolog Vial Sliding Scale - SQ Not Given ACHS [facility] Protocol Labetalol HCl 200 mg 09/05/19 14:00 09/12/19 06:10 Normodyne - PO 200 mg TID [facility] Administration Levothyroxine Sodium 200 mcg/ 225 mcg 09/10/19 07:00 09/12/19 06:11 Levothyroxine Sodium 25 mcg PO 225 mcg DAILY@0700 [facility] Administration Paroxetine HCl 40 mg 09/06/19 10:00 09/12/19 11:30 Paxil - PO 40 mg DAILY [facility] Administration Impression 1. LUCY 2. fluid overload 3. acute respiratory failure 4. hypothyroidism with tsh of 100 5. 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 urine tox pos for mdma 7. mild rhabdo 8. hepatitis B Plan - check labs in am - HD tomorrow - HD placement pending insurance, this was explained to pt, her boyfriend, her son and her daughter - check urine output - pt does not want kidney biopsy at this time
[2019-09-12] MEDS: ATORVASTATIN CA 40 MG TABLET (FP) PO SCH (22:01)
[2019-09-13 02:41] LABS: COCAINE, UR NEGATIVE ng/ml (CUTOFF=300); METHADONE, UR NEGATIVE ng/ml (CUTOFF=300); OPIATES, URI NEGATIVE ng/ml (CUTOFF=300); PHENCYCLIDINE,URINE NEGATIVE ng/ml (CUTOFF=25); URINE AMPHETAMINES NEGATIVE ng/ml (CUTOFF=500); URINE BARBITURATES NEGATIVE ng/ml (CUTOFF=200); URINE BENZODIAZEPINES NEGATIVE ng/ml (CUTOFF=200)
[2019-09-13] MEDS ORDERED: LEVOTHYROXINE NA 25 MCG TABLET (FP) ONE (06:10)
[2019-09-13] MEDS ORDERED: LEVOTHYROXINE NA 200 MCG TABLET ONE (06:10)
[2019-09-13] MEDS: LABETALOL HCL 100 MG TABLET (FP) PO SCH ×3 (06:25→21:37)
[2019-09-13] MEDS: LEVOTHYROXINE 200 MCG, LEVOTHYROXINE 25 MCG PO SCH (06:25)
[2019-09-13] MEDS: INSULIN SLIDING SCALE (NOVOLOG) 1 VIAL SQ SCH ×4 (06:25→21:37)
--- NOTE | 2019-09-13 08:22 | PN ---
Progress Note, Physician Chief Complaint: Patient seen and examined at the bedside during dialysis. Asking when she can go home History of Present Illness: OBJECTIVE: Patient is a 54 year old female with a significant past medical history of hypertension, hyperlipidemia, diabetes, COPD, anemia, thyroid cancer 6 years ago (no prior admission to [facility]). Patient brought into the ED for altered mental status, acute shortness of breath, metabolic acidosis. She was found to have an elevated TSH, low t4 and hypothermic ([id number] mariana hugger). Urine was + for ecstasy. on admission had renal failure with a creat of 7.7, bun of 65,mag 1.6, elevated ast/alt. she was admitted to the ICU and since 09/04, is being monitored on med surg unit. - Current Medication List Current Medications: Active Medications Acetaminophen (Tylenol -) 650 mg PO Q6H PRN PRN Reason: Fever Or Pain Amlodipine Besylate (Norvasc -) 10 mg PO DAILY [facility] Last Admin: 09/12/19 11:31 Dose: 10 mg Atorvastatin Calcium (Lipitor -) 40 mg PO HS [facility] Last Admin: 09/12/19 22:01 Dose: 40 mg Famotidine (Acid Intern) 20 mg PO Q2D [facility] Last Admin: 09/12/19 11:31 Dose: 20 mg Sodium Chloride (Normal Saline -) 250 mls @ 3,000 mls/hr IV PRN PRN PRN Reason: Hypotension during Dialysis Insulin Aspart (Novolog Vial Sliding Scale -) 1 vial SQ ACHS [facility]; Protocol Last Admin: 09/13/19 06:25 Dose: Not Given Labetalol HCl (Normodyne -) 200 mg PO TID [facility] Last Admin: 09/13/19 06:25 Dose: 200 mg Levothyroxine Sodium 200 mcg/ (Levothyroxine Sodium 25 mcg) 225 mcg PO DAILY@ 0700 [facility] Last Admin: 09/13/19 06:25 Dose: 225 mcg Paroxetine HCl (Paxil -) 40 mg PO DAILY [facility] Last Admin: 09/12/19 11:30 Dose: 40 mg Prednisone (Deltasone -) 10 mg PO DAILY [facility] - Objective Vital Signs: Vital Signs Temperature 98.8 F 09/13/19 06:09 Pulse Rate 65 09/13/19 06:09 Respiratory Rate 20 09/13/19 06:09 Blood Pressure 150/65 09/13/19 06:09 O2 Sat by Pulse Oximetry (%) 97 09/12/19 21:00 Additional Findings/Remarks: Constitutional: Yes: Well Nourished, No Distress, Calm Eyes: Yes: WNL, Conjunctiva Clear HENT: Yes: WNL, Atraumatic, Normocephalic Neck: Yes: Other (permacath) Cardiovascular: Yes: WNL, Regular Rate and Rhythm Respiratory: Yes: WNL, Regular, CTA Bilaterally Gastrointestinal: Yes: WNL, Normal Bowel Sounds, Soft, Abdomen, Obese ...Rectal Exam: Yes: Deferred Genitourinary: Yes: incontinent Breast(s): Yes: WNL Musculoskeletal: Yes: Muscle Weakness Extremities: Yes: WNL Edema: Yes Edema: LUE: Trace, RUE: Trace, LLE: Trace, RLE: Trace Peripheral Pulses WNL: Yes Peripheral Pulses: Left Radial: 2+, Right Radial: 2+, Left Doralis Pedis: 2+, Right Dorsalis Pedis: 2+, Left Femoral: 2+, Right Femoral: 2+ Integumentary: Yes: WNL Neurological: Yes: WNL, Alert ...Motor Strength: LLE, RLE (genralized weakness) Psychiatric: Yes: WNL Labs: CBC, BMP 09/12/19 09:20 09/12/19 06:25 INR, PTT INR 0.99 (0.83-1.09) 09/05/19 13:45 Problem List - Problems (1) HTN (hypertension) Assessment/Plan: c/w norvasc 10mg & labetolol 200mg tid Code(s): I10 - ESSENTIAL (PRIMARY) HYPERTENSION (2) HLD (hyperlipidemia) Assessment/Plan: c/w atorvastatin Code(s): E78.5 - HYPERLIPIDEMIA, UNSPECIFIED (3) COPD (chronic obstructive pulmonary disease) Assessment/Plan: duo nebs q4h completed antibiotics suplemental O2 to maintain SpO2 >90% Code(s): J44.9 - CHRONIC OBSTRUCTIVE PULMONARY DISEASE, UNSPECIFIED (4) Anemia Assessment/Plan: chronic anemia Hgb 8.8 continue to monitor Code(s): D64.9 - ANEMIA, UNSPECIFIED (5) Thyroid cancer Code(s): C73 - MALIGNANT NEOPLASM OF THYROID GLAND (6) Acute respiratory failure Assessment/Plan: resolved tolerating NC at 2L Code(s): J96.00 - ACUTE RESPIRATORY FAILURE, UNSP W HYPOXIA OR HYPERCAPNIA (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 level resent and pending Code(s): F16.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 ABUSE, UNCOMPLICATED (8) LUCY (acute kidney injury) Assessment/Plan: HD as per renal avoid nephrotoxic agents Code(s): N17.9 - ACUTE KIDNEY FAILURE, UNSPECIFIED (9) Acute metabolic encephalopathy Assessment/Plan: resolved avoid any sedating agents Code(s): G93.41 - METABOLIC ENCEPHALOPATHY (10) Morbid obesity Code(s): E66.01 - MORBID (SEVERE) OBESITY DUE TO EXCESS CALORIES (11) Prophylactic measure Assessment/Plan: FEN no additional IVF soft diet PRODUCTION TECHNICIAN following monitor electrolytes DVT SCDs Dispo mainatin as inpatient full code discharge planning-lapse in insurance- aiding Code(s): Z29.9 - ENCOUNTER FOR PROPHYLACTIC MEASURES, UNSPECIFIED (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 - New Patient This patient is new to me today: No - Critical Care Critical Care patient: No - Discharge Referral Referred to [facility] Med P.C.: No
[2019-09-13 09:16] LABS: BASO % 0.5 % (0-2.0); HEMOGLOBIN 8.8 GM/dL (10.7-15.3); LYMPH % 41.8 % (8-40); MCH 30.4 pg (25.7-33.7); MCHC 33.9 g/dl (32.0-36.0); MEAN CELL VOLUME 89.5 fl (80-96); MEAN PLT VOLUME 8.8 fl (7.5-11.1); MONO % 5.7 % (3.8-10.2); PLATELET COUNT 216 K/MM3 (134-434); RBC 2.91 M/mm3 (3.60-5.2); RDW 15.7 % (11.6-15.6); WHITE BLOOD COUNT 7.1 K/mm3 (4.0-10.0)
[2019-09-13 09:19] LABS: ALBUMIN 2.4 g/dl (3.4-5.0); BILIRUBIN,TOTAL 0.6 mg/dL (0.2-1); BLOOD UREA NITROGEN 27.6 mg/dL (7-18); CALCIUM 8.1 mg/dL (8.5-10.1); CREATININE 4.8 mg/dL (0.55-1.3); MAGNESIUM 1.8 mg/dL (1.8-2.4); POTASSIUM 3.4 mmol/L (3.5-5.1); TOT PROT 6.1 g/dl (6.4-8.2)
[2019-09-13] MEDS ORDERED: POTASSIUM CHLORIDE TABS 10 MEQ TABLET.ER (FP) PO ONE (09:21)
[2019-09-13] MEDS ORDERED: predniSONE 10 MG TABLET (UD) PO SCH (10:00)
[2019-09-13] MEDS: PARoxetine HCL 20 MG TABLET PO SCH (11:11)
[2019-09-13] MEDS: amLODIPine BESYLATE 10 MG TABLET (FP) PO SCH (11:12)
[2019-09-13] MEDS ORDERED: SODIUM CHLORIDE 250 ML IV PRN (11:18)
--- NOTE | 2019-09-13 12:01 | PN ---
Progress Note, Physician History of Present Illness: stable - Current Medication List Current Medications: Active Medications Acetaminophen (Tylenol -) 650 mg PO Q6H PRN PRN Reason: Fever Or Pain Amlodipine Besylate (Norvasc -) 10 mg PO DAILY [facility] Last Admin: 09/13/19 11:12 Dose: 10 mg Atorvastatin Calcium (Lipitor -) 40 mg PO HS [facility] Last Admin: 09/12/19 22:01 Dose: 40 mg Famotidine (Acid Housing Inspector) 20 mg PO Q2D [facility] Last Admin: 09/12/19 11:31 Dose: 20 mg Sodium Chloride (Normal Saline -) 250 mls @ 3,000 mls/hr IV PRN PRN PRN Reason: Hypotension during Dialysis Sodium Chloride (Normal Saline -) 250 mls @ 3,000 mls/hr IV PRN PRN PRN Reason: Hypotension during Dialysis Stop: 09/14/19 11:17 Insulin Aspart (Novolog Vial Sliding Scale -) [address] [facility]; Protocol Last Admin: 09/13/19 06:25 Dose: Not Given Labetalol HCl (Normodyne -) 200 mg PO TID [facility] Last Admin: 09/13/19 06:25 Dose: 200 mg Levothyroxine Sodium 200 mcg/ (Levothyroxine Sodium 25 mcg) 225 mcg PO DAILY@ 0700 [facility] Last Admin: 09/13/19 06:25 Dose: 225 mcg Paroxetine HCl (Paxil -) 40 mg PO DAILY [facility] Last Admin: 09/13/19 11:11 Dose: 40 mg Prednisone (Deltasone -) 10 mg PO DAILY [facility] Last Admin: 09/13/19 11:13 Dose: 10 mg - Objective Vital Signs: Vital Signs Temperature 97.4 F L 09/13/19 10:45 Pulse Rate 65 09/13/19 11:25 Respiratory Rate 18 09/13/19 11:25 Blood Pressure 148/60 09/13/19 11:25 O2 Sat by Pulse Oximetry (%) 97 09/12/19 21:00 Constitutional: Yes: No Distress, Calm, Obese Cardiovascular: Yes: Regular Rate and Rhythm Respiratory: Yes: Regular, CTA Bilaterally Gastrointestinal: Yes: Normal Bowel Sounds, Soft Musculoskeletal: Yes: WNL Extremities: Yes: WNL Neurological: Yes: Alert, Oriented Psychiatric: Yes: Alert, Oriented Labs: CBC, BMP 09/13/19 07:24 09/13/19 07:24 INR, PTT INR 0.99 (0.83-1.09) 09/05/19 13:45 Assessment/Plan Problem List - Problems (1) LUCY (acute kidney injury) Code(s): N17.9 - ACUTE KIDNEY FAILURE, UNSPECIFIED (2) AMS (altered mental status) Code(s): R41.82 - ALTERED MENTAL STATUS, UNSPECIFIED (3) Acute metabolic encephalopathy Code(s): G93.41 - METABOLIC ENCEPHALOPATHY (4) Acute respiratory failure Code(s): J96.00 - ACUTE RESPIRATORY FAILURE, UNSP W HYPOXIA OR HYPERCAPNIA (5) Anemia Code(s): D64.9 - ANEMIA, UNSPECIFIED (6) COPD (chronic obstructive pulmonary disease) Code(s): J44.9 - CHRONIC OBSTRUCTIVE PULMONARY DISEASE, UNSPECIFIED (7) Diabetes Code(s): E11.9 - TYPE 2 DIABETES MELLITUS WITHOUT COMPLICATIONS (8) HTN (hypertension) Code(s): I10 - ESSENTIAL (PRIMARY) HYPERTENSION (9) Hypercapnic respiratory failure Code(s): J96.92 - RESPIRATORY FAILURE, UNSPECIFIED WITH HYPERCAPNIA (10) Hypothermia Code(s): T68.XXXA - HYPOTHERMIA, INITIAL ENCOUNTER (11) Morbid obesity Code(s): E66.01 - MORBID (SEVERE) OBESITY DUE TO EXCESS CALORIES (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
--- NOTE | 2019-09-13 12:25 | PN ---
Progress Note (short form) - Note Progress Note: Feels good Denies any complaints Eager to go home Vital Signs Period Temp Pulse Resp BP Sys/Amos Pulse Ox Last 24 Hr 97.4 F-99.2 F 59-68 18-20 133-151/60-76 97 PE: awake, alert, Neck: Supple LUngs: CTA CVs: S1S2 Abd: Benign EXt: No edema CMP Sodium 137 mmol/L (136-145) 09/13/19 07:24 Potassium 3.4 mmol/L (3.5-5.1) L 09/13/19 07:24 Chloride 99 mmol/L (98-107) 09/13/19 07:24 Carbon Dioxide 29 mmol/L (21-32) 09/13/19 07:24 Anion Gap 10 MMOL/L (8-16) 09/13/19 07:24 BUN 27.6 mg/dL (7-18) H 09/13/19 07:24 Creatinine 4.8 mg/dL (0.55-1.3) H 09/13/19 07:24 Est GFR (CKD-EPI)AfAm 11.26 09/13/19 07:24 Est GFR (CKD-EPI)NonAf 9.71 09/13/19 07:24 POC Glucometer 88 UNITS (80-120) 09/13/19 05:46 Random Glucose 86 mg/dL (74-106) 09/13/19 07:24 Hemoglobin A1c % 6.6 % (4.2-6.3) H 09/12/19 09:20 Lactic Acid 0.7 mmol/L (0.4-2.0) 08/25/19 11:00 Calcium 8.1 mg/dL (8.5-10.1) L 09/13/19 07:24 Phosphorus 4.2 mg/dL (2.5-4.9) 09/04/19 05:15 Magnesium 1.8 mg/dL (1.8-2.4) 09/13/19 07:24 Total Bilirubin 0.6 mg/dL (0.2-1) 09/13/19 07:24 Direct Bilirubin 0.2 mg/dL (0.0-0.2) 08/26/19 05:54 AST 36 U/L (15-37) 09/13/19 07:24 ALT 30 U/L (13-61) 09/13/19 07:24 Alkaline Phosphatase 412 U/L (45-117) H 09/13/19 07:24 Ammonia 24.90 umol/L (11-32) 08/25/19 11:00 Creatine Kinase 1133 U/L (26-192) H 08/26/19 05:54 Creatine Kinase Index 0.8 % (0.0-5.0) 08/26/19 05:54 CK-MB (CK-2) 9.5 ng/mL (0.5-3.6) H 08/26/19 05:54 Troponin I < 0.02 ng/ml (0.00-0.05) 08/26/19 05:54 B-Natriuretic Peptide 3649.4 pg/ml (5-125) H 08/25/19 11:00 Total Protein 6.1 g/dl (6.4-8.2) L 09/13/19 07:24 Total Protein (PEP) 6.2 g/dL (6.0-8.5) 09/02/19 15:55 Albumin 2.4 g/dl (3.4-5.0) L 09/13/19 07:24 Albumin (PEP) 2.6 gm/dl (2.9-4.4) L 09/02/19 15:55 Globulin 3.6 g/dL (2.2-3.9) 09/02/19 15:55 Albumin/Globulin Ratio 0.7 (0.7-1.7) 09/02/19 15:55 Beta Globulins 0.7 gm/dL (0.7-1.3) 09/02/19 15:55 Beta-Hydroxybutyrate 1.1 mg/dL (0.2-2.8) 08/25/19 11:00 Procalcitonin 1.29 ng/mL (0.00-0.08) H 08/25/19 13:41 TSH 114.00 uIU/ml (0.358-3.74) H 09/09/19 06:00 Free T4 0.75 ng/dl (0.76-1.46) L 09/09/19 06:00 Thyroxine (T4) 3.2 ug/dl (4.5-13.9) L 08/25/19 11:00 Free T3 0.8 pg/ml (2.0-4.4) L 09/09/19 08:05 Resin T3 Uptake 30.3 % (30-39) 08/26/19 05:54 Serum , Qual Negative 08/30/19 15:40 Cortisol Pre Dose Time 40.10 mcg/dL (.) 08/25/19 12:46 Current Medications Generic Name Dose Route Start Last Admin Trade Name Freq PRN Reason Stop Dose Admin Acetaminophen 650 mg 09/06/19 15:49 Tylenol - PO Q6H PRN Fever Or Pain Amlodipine Besylate 10 mg 09/06/19 10:00 09/13/19 11:12 Norvasc - PO 10 mg DAILY [facility] Administration Atorvastatin Calcium 40 mg 09/06/19 22:00 09/12/19 22:01 Lipitor - PO 40 mg HS [facility] Administration Famotidine 20 mg 09/06/19 10:00 09/12/19 11:31 Acid Cafeteria Manager PO 20 mg Q2D [facility] Administration Sodium Chloride 250 mls @ 3,000 mls/hr 09/08/19 13:00 Normal Saline - IV PRN PRN Hypotension during Dialysis Sodium Chloride 250 mls @ 3,000 mls/hr 09/13/19 11:18 Normal Saline - IV 09/14/19 11:17 PRN PRN Hypotension during Dialysis Insulin Aspart 1 vial 09/05/19 16:30 09/13/19 06:25 Novolog Vial Sliding Scale - SQ Not Given ACHS [facility] Protocol Labetalol HCl 200 mg 09/05/19 14:00 09/13/19 06:25 Normodyne - PO 200 mg TID [facility] Administration Levothyroxine Sodium 200 mcg/ 225 mcg 09/10/19 07:00 09/13/19 06:25 Levothyroxine Sodium 25 mcg PO 225 mcg DAILY@0700 [facility] Administration Paroxetine HCl 40 mg 09/06/19 10:00 09/13/19 11:11 Paxil - PO 40 mg DAILY [facility] Administration Prednisone 10 mg 09/13/19 10:00 09/13/19 11:13 Deltasone - PO 10 mg DAILY [facility] Administration AP: Respiratory failure AMS/ Toxic metabolic encephalopathy Hypothyrodism Throid ca s/p Thyroidectomy Morbid obesity LUCY on CKD DM Anemia with drop in H/H H/o Renal stones Elevated Alk Phos Ventilatory support TSH 114.0 now , from 60.2, 72.30 . FT4 0.75 from 0.24 Change to LT4 2250mcg PO On Prednisone 10mg QD, continue for one more day, then Prednisone 5mg for 3 days and then D/C If pt is discharged, Pt go go home on LT4 225 and Prednisone if necessary Repeat TFT in 2 weeks and change dose as necessary. Predose Cortisol level was 40. BGM QACHS Novolog SS coverage Will f/u Problem List - Problems (1) AMS (altered mental status) Code(s): R41.82 - ALTERED MENTAL STATUS, UNSPECIFIED (2) Acute metabolic encephalopathy Code(s): G93.41 - METABOLIC ENCEPHALOPATHY (3) Acute renal failure Code(s): N17.9 - ACUTE KIDNEY FAILURE, UNSPECIFIED (4) Diabetes Code(s): E11.9 - TYPE 2 DIABETES MELLITUS WITHOUT COMPLICATIONS (5) Hypercapnic respiratory failure Code(s): J96.92 - RESPIRATORY FAILURE, UNSPECIFIED WITH HYPERCAPNIA (6) Hypothermia Code(s): T68.XXXA - HYPOTHERMIA, INITIAL ENCOUNTER (7) Metabolic acidosis Code(s): E87.2 - ACIDOSIS (8) Morbid obesity Code(s): E66.01 - MORBID (SEVERE) OBESITY DUE TO EXCESS CALORIES
--- NOTE | 2019-09-13 13:19 | PN ---
Progress Note (short form) - Note Progress Note: PULMONARY Awake, on HD 2.0 kg to be removed vss/afebrile Gen: NAD at rest Heart: RRR Lung: decreased breath sounds at the bases Abd: soft, nontender Ext: no edema Chart reviewed A/P Acute Hypercapneic Respiratory Failure Myxedema Coma UTI Acute Kidney Injury requiring HD Volume Overload Pleural Effusions COPD DM Anemia - HD per renal with ultrafiltration - monitor urine output, creatinine - completed antibiotics - hydrocortisone & synthroid per endocrine - inhaled bronchodilators - O2 to keep SpO2 >90% - PO as tolerated - DVT/GI prophylaxis Ritu MONTOYA MD
--- NOTE | 2019-09-13 16:34 | PN ---
Progress Note, Physician History of Present Illness: Pt seen and examined at bedside. SHe is awake and alert. She is due for HD today. - Current Medication List Current Medications: Active Medications Acetaminophen (Tylenol -) 650 mg PO Q6H PRN PRN Reason: Fever Or Pain Amlodipine Besylate (Norvasc -) 10 mg PO DAILY [facility] Last Admin: 09/13/19 11:12 Dose: 10 mg Atorvastatin Calcium (Lipitor -) 40 mg PO HS [facility] Last Admin: 09/12/19 22:01 Dose: 40 mg Famotidine (Acid Paste Up Copy Camera Operator) 20 mg PO Q2D [facility] Last Admin: 09/12/19 11:31 Dose: 20 mg Sodium Chloride (Normal Saline -) 250 mls @ 3,000 mls/hr IV PRN PRN PRN Reason: Hypotension during Dialysis Sodium Chloride (Normal Saline -) 250 mls @ 3,000 mls/hr IV PRN PRN PRN Reason: Hypotension during Dialysis Stop: 09/14/19 11:17 Insulin Aspart (Novolog Vial Sliding Scale -) 1 vial SQ [facility]; Protocol Last Admin: 09/13/19 14:41 Dose: Not Given Labetalol HCl (Normodyne -) 200 mg PO TID [facility] Last Admin: 09/13/19 14:32 Dose: 200 mg Levothyroxine Sodium 200 mcg/ (Levothyroxine Sodium 25 mcg) 225 mcg PO DAILY@ 0700 [facility] Last Admin: 09/13/19 06:25 Dose: 225 mcg Paroxetine HCl (Paxil -) 40 mg PO DAILY [facility] Last Admin: 09/13/19 11:11 Dose: 40 mg Prednisone (Deltasone -) 10 mg PO DAILY [facility] Last Admin: 09/13/19 11:13 Dose: 10 mg - Objective Vital Signs: Vital Signs Temperature 98.8 F 09/13/19 15:00 Pulse Rate 63 09/13/19 15:00 Respiratory Rate 20 09/13/19 15:00 Blood Pressure 149/69 09/13/19 15:00 O2 Sat by Pulse Oximetry (%) 97 09/12/19 21:00 Constitutional: Yes: Calm Eyes: Yes: Conjunctiva Clear HENT: Yes: Atraumatic Neck: Yes: Supple Cardiovascular: Yes: S1, S2 Respiratory: Yes: CTA Bilaterally Gastrointestinal: Yes: Normal Bowel Sounds, Soft, Abdomen, Obese Genitourinary: Yes: WNL Musculoskeletal: Yes: WNL Edema: Yes Edema: LLE: Trace, RLE: Trace Integumentary: Yes: Tattoos Neurological: Yes: Oriented Psychiatric: Yes: Oriented Labs: CBC, BMP 09/13/19 07:24 09/13/19 07:24 INR, PTT INR 0.99 (0.83-1.09) 09/05/19 13:45 Problem List - Problems (1) AMS (altered mental status) Code(s): R41.82 - ALTERED MENTAL STATUS, UNSPECIFIED (2) Acute metabolic encephalopathy Code(s): G93.41 - METABOLIC ENCEPHALOPATHY (3) Acute renal failure Code(s): N17.9 - ACUTE KIDNEY FAILURE, UNSPECIFIED (4) Diabetes Code(s): E11.9 - TYPE 2 DIABETES MELLITUS WITHOUT COMPLICATIONS (5) Hypercapnic respiratory failure Code(s): J96.92 - RESPIRATORY FAILURE, UNSPECIFIED WITH HYPERCAPNIA (6) Hypothermia Code(s): T68.XXXA - HYPOTHERMIA, INITIAL ENCOUNTER (7) Morbid obesity Code(s): E66.01 - MORBID (SEVERE) OBESITY DUE TO EXCESS CALORIES Assessment/Plan Current Medications Generic Name Dose Route Start Last Admin Trade Name Freq PRN Reason Stop Dose Admin Acetaminophen 650 mg 09/06/19 15:49 Tylenol - PO Q6H PRN Fever Or Pain Amlodipine Besylate 10 mg 09/06/19 10:00 09/13/19 11:12 Norvasc - PO 10 mg DAILY [facility] Administration Atorvastatin Calcium 40 mg 09/06/19 22:00 09/12/19 22:01 Lipitor - PO 40 mg HS [facility] Administration Famotidine 20 mg 09/06/19 10:00 09/12/19 11:31 Acid Paste Up Copy Camera Operator PO 20 mg Q2D [facility] Administration Sodium Chloride 250 mls @ 3,000 mls/hr 09/08/19 13:00 Normal Saline - IV PRN PRN Hypotension during Dialysis Sodium Chloride 250 mls @ 3,000 mls/hr 09/13/19 11:18 Normal Saline - IV 09/14/19 11:17 PRN PRN Hypotension during Dialysis Insulin Aspart 1 vial 09/05/19 16:30 09/13/19 14:41 Novolog Vial Sliding Scale - SQ Not Given ACHS [facility] Protocol Labetalol HCl 200 mg 09/05/19 14:00 09/13/19 14:32 Normodyne - PO 200 mg TID [facility] Administration Levothyroxine Sodium 200 mcg/ 225 mcg 09/10/19 07:00 09/13/19 06:25 Levothyroxine Sodium 25 mcg PO 225 mcg DAILY@0700 ZOE Administration Paroxetine HCl 40 mg 09/06/19 10:00 09/13/19 11:11 Paxil - PO 40 mg DAILY ZOE Administration Prednisone 10 mg 09/13/19 10:00 09/13/19 11:13 Deltasone - PO 10 mg DAILY ZOE Administration Impression 1. LUCY 2. fluid overload 3. acute respiratory failure 4. hypothyroidism with tsh of 100 5. 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 urine tox pos for mdma 7. mild rhabdo 8. hepatitis B Plan - [employer] circuit boards rising, she says that she does not make much urine - HD today - discussed kidney biopsy again with pt, daughter and son, pt does not want a kidney biopsy - pts insurance is still not active, pending placement - will need GI follow up for hep B - will see on Monday
[2019-09-13] MEDS ORDERED: INSULIN (NOVOLOG) ASPART 100 UNITS/ML 10ML VIAL ONE (21:12)
[2019-09-13] MEDS: ATORVASTATIN CA 40 MG TABLET (FP) PO SCH (21:37)
[2019-09-14] MEDS ORDERED: LEVOTHYROXINE NA 200 MCG TABLET ONE (06:15)
[2019-09-14] MEDS ORDERED: LEVOTHYROXINE NA 25 MCG TABLET (FP) ONE (06:16)
[2019-09-14] MEDS: LEVOTHYROXINE 200 MCG, LEVOTHYROXINE 25 MCG PO SCH (06:37)
[2019-09-14] MEDS: INSULIN SLIDING SCALE (NOVOLOG) 1 VIAL SQ SCH ×4 (06:37→21:56)
[2019-09-14] MEDS: LABETALOL HCL 100 MG TABLET (FP) PO SCH ×3 (06:37→21:55)
--- NOTE | 2019-09-14 07:53 | PN ---
Progress Note, Physician Chief Complaint: Patient seen and examined at the bedside.Lethargic today but arousable. Awaiting insurance clearance for HD placement History of Present Illness: OBJECTIVE: Patient is a 54 year old female with a significant past medical history of hypertension, hyperlipidemia, diabetes, COPD, anemia, thyroid cancer 6 years ago (no prior admission to [facility]). Patient brought into the ED for altered mental status, acute shortness of breath, metabolic acidosis. She was found to have an elevated TSH, low t4 and hypothermic (96f-97-on mariana hugger). Urine was + for ecstasy. on admission had renal failure with a creat of 7.7, bun of 65,mag 1.6, elevated ast/alt. she was admitted to the ICU and since 09/04, is being monitored on med surg unit. - Current Medication List Current Medications: Active Medications Acetaminophen (Tylenol -) 650 mg PO Q6H PRN PRN Reason: Fever Or Pain Amlodipine Besylate (Norvasc -) 10 mg PO DAILY [facility] Last Admin: 09/13/19 11:12 Dose: 10 mg Atorvastatin Calcium (Lipitor -) 40 mg PO HS [facility] Last Admin: 09/13/19 21:37 Dose: 40 mg Famotidine (Acid Engraving Press Operator) 20 mg PO Q2D [facility] Last Admin: 09/12/19 11:31 Dose: 20 mg Sodium Chloride (Normal Saline -) 250 mls @ 3,000 mls/hr IV PRN PRN PRN Reason: Hypotension during Dialysis Sodium Chloride (Normal Saline -) 250 mls @ 3,000 mls/hr IV PRN PRN PRN Reason: Hypotension during Dialysis Stop: 09/14/19 11:17 Insulin Aspart (Novolog Vial Sliding Scale -) 1 vial SQ ACHS [facility]; Protocol Last Admin: 09/14/19 06:37 Dose: Not Given Labetalol HCl (Normodyne -) 200 mg PO TID [facility] Last Admin: 09/14/19 06:37 Dose: 200 mg Levothyroxine Sodium 200 mcg/ (Levothyroxine Sodium 25 mcg) 225 mcg PO DAILY@ 0700 [facility] Last Admin: 09/14/19 06:37 Dose: 225 mcg Paroxetine HCl (Paxil -) 40 mg PO DAILY [facility] Last Admin: 09/13/19 11:11 Dose: 40 mg Prednisone (Deltasone -) 10 mg PO ONCE ONE Stop: 09/14/19 10:01 Prednisone (Deltasone -) 5 mg PO DAILY [facility] Stop: 09/18/19 10:05 - Objective Vital Signs: Vital Signs Temperature 98.8 F 09/14/19 06:34 Pulse Rate 64 09/14/19 06:34 Respiratory Rate 20 09/14/19 06:34 Blood Pressure 152/80 09/14/19 06:34 O2 Sat by Pulse Oximetry (%) 97 09/13/19 21:00 Additional Findings/Remarks: Constitutional: Yes: Well Nourished, No Distress, Calm Eyes: Yes: WNL, Conjunctiva Clear HENT: Yes: WNL, Atraumatic, Normocephalic Neck: Yes: Other (permacath) Cardiovascular: Yes: WNL, Regular Rate and Rhythm Respiratory: Yes: WNL, Regular, CTA Bilaterally Gastrointestinal: Yes: WNL, Normal Bowel Sounds, Soft, Abdomen, Obese ...Rectal Exam: Yes: Deferred Genitourinary: Yes: incontinent Breast(s): Yes: WNL Musculoskeletal: Yes: Muscle Weakness Extremities: Yes: WNL Edema: Yes Edema: LUE: Trace, RUE: Trace, LLE: Trace, RLE: Trace Peripheral Pulses WNL: Yes Peripheral Pulses: Left Radial: 2+, Right Radial: 2+, Left Doralis Pedis: 2+, Right Dorsalis Pedis: 2+, Left Femoral: 2+, Right Femoral: 2+ Integumentary: Yes: WNL Neurological: Yes: WNL, Alert ...Motor Strength: LLE, RLE (genralized weakness) Psychiatric: Yes: WNL Labs: CBC, BMP 09/13/19 07:24 09/13/19 07:24 INR, PTT INR 0.99 (0.83-1.09) 09/05/19 13:45 Problem List - Problems (1) HTN (hypertension) Assessment/Plan: c/w norvasc 10mg & labetolol 200mg tid Code(s): I10 - ESSENTIAL (PRIMARY) HYPERTENSION (2) HLD (hyperlipidemia) Assessment/Plan: c/w atorvastatin Code(s): E78.5 - HYPERLIPIDEMIA, UNSPECIFIED (3) COPD (chronic obstructive pulmonary disease) Assessment/Plan: duo nebs q4h completed antibiotics supplemental O2 to maintain SpO2 >90% Code(s): J44.9 - CHRONIC OBSTRUCTIVE PULMONARY DISEASE, UNSPECIFIED (4) Anemia Assessment/Plan: chronic anemia Hgb 8.5 continue to monitor Code(s): D64.9 - ANEMIA, UNSPECIFIED (5) Thyroid cancer Code(s): C73 - MALIGNANT NEOPLASM OF THYROID GLAND (6) Acute respiratory failure Assessment/Plan: resolved tolerating NC at 2L Code(s): J96.00 - ACUTE RESPIRATORY FAILURE, UNSP W HYPOXIA OR HYPERCAPNIA (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 level resent and pending Code(s): F16.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 ABUSE, UNCOMPLICATED (8) LUCY (acute kidney injury) Assessment/Plan: HD as per renal avoid nephrotoxic agents Code(s): N17.9 - ACUTE KIDNEY FAILURE, UNSPECIFIED (9) Acute metabolic encephalopathy Assessment/Plan: resolved avoid any sedating agents Code(s): G93.41 - METABOLIC ENCEPHALOPATHY (10) Morbid obesity Code(s): E66.01 - MORBID (SEVERE) OBESITY DUE TO EXCESS CALORIES (11) Prophylactic measure Assessment/Plan: FEN no additional IVF soft diet [employer] following monitor electrolytes DVT SCDs Dispo maintain as inpatient full code discharge planning-lapse in insurance- following Code(s): Z29.9 - ENCOUNTER FOR PROPHYLACTIC MEASURES, UNSPECIFIED (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 recommended to have outpatient evaluation for HBV DNA level, alpha-fetoprotein. Code(s): B19.10 - UNSPECIFIED VIRAL HEPATITIS B WITHOUT HEPATIC COMA Qualifiers: Viral hepatitis chronicity: chronic Visit type - Emergency Visit Emergency Visit: Yes ED Registration Date: 08/25/19 Care time: The patient presented to the Emergency Department on the above date and was hospitalized for further evaluation of their emergent condition. - New Patient This patient is new to me today: No - Critical Care Critical Care patient: No - Discharge Referral Referred to [facility] Med P.C.: No
[2019-09-14 08:36] LABS: BASO % 0.4 % (0-2.0); HEMATOCRIT 25.4 % (32.4-45.2); HEMOGLOBIN 8.5 GM/dL (10.7-15.3); LYMPH % 37.2 % (8-40); MCHC 33.5 g/dl (32.0-36.0); MEAN CELL VOLUME 89.6 fl (80-96); MEAN PLT VOLUME 8.7 fl (7.5-11.1); MONO % 4.6 % (3.8-10.2); NEUT % 57.8 % (42.8-82.8); PLATELET COUNT 198 K/MM3 (134-434); RBC 2.83 M/mm3 (3.60-5.2); WHITE BLOOD COUNT 7.5 K/mm3 (4.0-10.0)
[2019-09-14 09:12] LABS: ALBUMIN 2.4 g/dl (3.4-5.0); BILIRUBIN,TOTAL 0.6 mg/dL (0.2-1); BLOOD UREA NITROGEN 13.9 mg/dL (7-18); CALCIUM 8.1 mg/dL (8.5-10.1); CREATININE 3.4 mg/dL (0.55-1.3); MAGNESIUM 1.8 mg/dL (1.8-2.4); POTASSIUM 3.5 mmol/L (3.5-5.1); TOT PROT 5.9 g/dl (6.4-8.2)
[2019-09-14] MEDS: PARoxetine HCL 20 MG TABLET PO SCH (09:49)
[2019-09-14] MEDS: amLODIPine BESYLATE 10 MG TABLET (FP) PO SCH (09:49)
[2019-09-14] MEDS: FAMOTIDINE 10 MG TABLET PO SCH (09:50)
[2019-09-14] MEDS ORDERED: predniSONE 5 MG TABLET (UD) PO SCH (10:00)
[2019-09-14] MEDS ORDERED: predniSONE 10 MG TABLET (UD) PO ONE (10:00)
--- NOTE | 2019-09-14 11:27 | CON.GI ---
Consult Consult Specialty:: GI Referred by:: Hospitalist service Reason for Consultation:: Hepatitis B - History of Present Illness Chief Complaint: 54 y.o. F admitted with myxedema coma, acute renal failure. Found to have, among other abnormal labs, an alk phos of 959 on 08/25/19 which has dropped to 411 during this hospitalization. She says she has known of hepatitis in the past. - History Source History Provided By: Patient, Medical Record Limitations to Obtaining History: Clinical Condition - Past Medical History Cardio/Vascular: Yes: HTN Pulmonary: Yes: COPD Hepatobiliary: Yes: Other (hepatitis) Psych: Yes: Addictions (ecstacy) Endocrine: Yes: Diabetes Mellitus, Hypothyroidism, Other (Thyroid ca) - Past Surgical History Additional Surgical History: thyroidectomy - Alcohol/Substance Use Hx Alcohol Use: (not known) - Smoking History Smoking history: Unknown if ever smoked - Social History Usual Living Arrangement: Alone Home Medications - Allergies Allergies/Adverse Reactions: Allergies Allergy/AdvReac Type Severity Reaction Status Date / Time pollen extracts AdvReac Unknown Verified 08/25/19 18:16 shellfish derived AdvReac Unknown Verified 08/25/19 18:16 - Home Medications Home Medications: Ambulatory Orders Aspirin 81 mg PO DAILY 08/25/19 Atorvastatin Calcium 10 mg PO HS 08/25/19 Cetirizine HCl [Allergy Relief] 10 mg PO DAILY 08/25/19 Docusate Sodium [Docusate 100 mg] 100 mg PO BID 08/25/19 Levothyroxine [Synthroid -] 225 mcg PO DAILY 08/25/19 Lisinopril [Prinivil -] 40 mg PO DAILY 08/25/19 Nifedipine [Adalat cc] 60 mg PO DAILY 08/25/19 Sitagliptin Phosphate [Januvia] 50 mg PO DAILY 08/25/19 Bupropion HCl [Wellbutrin Xl] 300 mg PO DAILY 08/26/19 Chlorpromazine [Thorazine -] 100 mg PO HS 08/26/19 Clonazepam [Klonopin] 2 mg PO HS 08/26/19 Ferrous Sulfate 325 mg PO DAILY 08/26/19 Insulin Glargine,Hum.rec.anlog [Lantus Solostar] 20 units IN DAILY 08/26/19 Paroxetine HCl [Paxil] 40 mg PO DAILY 08/26/19 Physical Exam-GI Vital Signs: Vital Signs Temperature 98.5 F 09/14/19 09:44 Pulse Rate 63 09/14/19 09:44 Respiratory Rate 20 09/14/19 09:44 Blood Pressure 118/54 L 09/14/19 09:44 O2 Sat by Pulse Oximetry (%) 97 09/13/19 21:00 Constitutional: Yes: Obese Eyes: Yes: WNL ...Palpate: Yes: Soft Labs: CBC, BMP 09/14/19 07:45 09/14/19 07:45 INR, PTT INR 0.99 (0.83-1.09) 09/05/19 13:45 Problem List - Problems (1) Hepatitis B Code(s): B19.10 - UNSPECIFIED VIRAL HEPATITIS B WITHOUT HEPATIC COMA Qualifiers: Viral hepatitis chronicity: chronic Assessment/Plan Chronic hepatitis B with fairly normal AST/ALT and bilirubin. The markedly elevated alkaline phosphatase was likely secondary to severe hypothyroidism. Her sonogram did not show any liver masses or signs of biliary obstruction. Pt should have outpatient evaluation for HBV DNA level, alpha-fetoprotein. Dialysis staff should be made aware of her HBV status if they do not already know it.
--- NOTE | 2019-09-14 12:12 | PN ---
Progress Note (short form) - Note Progress Note: Resting in NAD on RA. Denies CP or SOB. No acute events overnight. Intake & Output 09/11/19 09/12/19 09/13/19 09/14/19 23:59 23:59 23:59 23:59 Intake Total 880 1520 500 100 Output Total 1 Balance 880 1520 499 100 Last Vital Signs Temp Pulse Resp BP Pulse Ox 98.5 F 63 20 118/54 L 97 09/14/19 09:44 09/14/19 09:44 09/14/19 09:44 09/14/19 09:44 09/13/19 21:00 Active Medications Acetaminophen (Tylenol -) 650 mg PO Q6H PRN PRN Reason: Fever Or Pain Amlodipine Besylate (Norvasc -) 10 mg PO DAILY [facility] Last Admin: 09/14/19 09:49 Dose: 10 mg Atorvastatin Calcium (Lipitor -) 40 mg PO HS [facility] Last Admin: 09/13/19 21:37 Dose: 40 mg Famotidine (Acid Case Management Social Worker) 20 mg PO Q2D [facility] Last Admin: 09/14/19 09:50 Dose: 20 mg Sodium Chloride (Normal Saline -) 250 mls @ 3,000 mls/hr IV PRN PRN PRN Reason: Hypotension during Dialysis Insulin Aspart (Novolog Vial Sliding Scale -) 1 vial SQ ACHS [facility]; Protocol Last Admin: 09/14/19 11:56 Dose: Not Given Labetalol HCl (Normodyne -) 200 mg PO TID [facility] Last Admin: 09/14/19 06:37 Dose: 200 mg Levothyroxine Sodium 200 mcg/ (Levothyroxine Sodium 25 mcg) 225 mcg PO DAILY@ 0700 [facility] Last Admin: 09/14/19 06:37 Dose: 225 mcg Paroxetine HCl (Paxil -) 40 mg PO DAILY [facility] Last Admin: 09/14/19 09:49 Dose: 40 mg Prednisone (Deltasone -) 5 mg PO DAILY [facility] Stop: 09/18/19 10:05 Gen: NAD Heart: RRR Lung: decreased breath sounds at the bases Abd: soft, nontender Ext: + edema improving Laboratory Results - last 24 hr 09/13/19 09/13/19 09/14/19 17:23 21:35 06:35 WBC RBC Hgb Hct MCV MCH MCHC RDW Plt Count MPV Absolute Neuts (auto) Neutrophils % Lymphocytes % Monocytes % Eosinophils % Basophils % Nucleated RBC % Sodium Potassium Chloride Carbon Dioxide Anion Gap BUN Creatinine Est GFR (CKD-EPI)AfAm Est GFR (CKD-EPI)NonAf POC Glucometer 165 172 116 Random Glucose Calcium Magnesium Total Bilirubin AST ALT Alkaline Phosphatase Total Protein Albumin 09/14/19 09/14/19 09/14/19 07:45 07:45 11:54 WBC 7.5 RBC 2.83 L Hgb 8.5 L Hct 25.4 L MCV 89.6 MCH 30.0 MCHC 33.5 RDW 16.0 H Plt Count 198 MPV 8.7 Absolute Neuts (auto) 4.3 Neutrophils % 57.8 Lymphocytes % 37.2 Monocytes % 4.6 Eosinophils % 0.0 Basophils % 0.4 Nucleated RBC % 0 Sodium 136 Potassium 3.5 Chloride 99 Carbon Dioxide 31 Anion Gap 7 L BUN 13.9 Creatinine 3.4 H Est GFR (CKD-EPI)AfAm 17.08 Est GFR (CKD-EPI)NonAf 14.74 POC Glucometer 142 Random Glucose 95 Calcium 8.1 L Magnesium 1.8 Total Bilirubin 0.6 AST 35 ALT 30 Alkaline Phosphatase 411 H Total Protein 5.9 L Albumin 2.4 L ASSESSMENT AND PLAN: Acute Hypercapneic Respiratory Failure Myxedema Coma UTI Acute Kidney Injury requiring HD Volume Overload Pleural Effusions COPD DM Anemia - HD per renal with ultrafiltration - monitor urine output, creatinine - ABX Per ID - hydrocortisone & synthroid per Endocrine - inhaled bronchodilators - O2 to keep SpO2 >90% - PO as tolerated - DVT/GI prophylaxis Dr Alonso
--- NOTE | 2019-09-14 17:18 | PN ---
Progress Note, Physician History of Present Illness: Pt is alert, afebrile, without distress. No specific complaints. - Current Medication List Current Medications: Active Medications Acetaminophen (Tylenol -) 650 mg PO Q6H PRN PRN Reason: Fever Or Pain Amlodipine Besylate (Norvasc -) 10 mg PO DAILY [facility] Last Admin: 09/14/19 09:49 Dose: 10 mg Atorvastatin Calcium (Lipitor -) 40 mg PO HS [facility] Last Admin: 09/13/19 21:37 Dose: 40 mg Famotidine (Acid [place]man) 20 mg PO Q2D [facility] Last Admin: 09/14/19 09:50 Dose: 20 mg Sodium Chloride (Normal Saline -) 250 mls @ 3,000 mls/hr IV PRN PRN PRN Reason: Hypotension during Dialysis Insulin Aspart (Novolog Vial Sliding Scale -) 1 vial SQ ACHS [facility]; Protocol Last Admin: 09/14/19 16:38 Dose: 2 units Labetalol HCl (Normodyne -) 200 mg PO TID [facility] Last Admin: 09/14/19 13:29 Dose: 200 mg Levothyroxine Sodium 200 mcg/ (Levothyroxine Sodium 25 mcg) 225 mcg PO DAILY@ 0700 [facility] Last Admin: 09/14/19 06:37 Dose: 225 mcg Paroxetine HCl (Paxil -) 40 mg PO DAILY [facility] Last Admin: 09/14/19 09:49 Dose: 40 mg Prednisone (Deltasone -) 5 mg PO DAILY [facility] Stop: 09/18/19 10:05 - Objective Vital Signs: Vital Signs Temperature 97.5 F L 09/14/19 15:15 Pulse Rate 65 09/14/19 15:15 Respiratory Rate 20 09/14/19 15:15 Blood Pressure 128/59 L 09/14/19 15:15 O2 Sat by Pulse Oximetry (%) 97 09/13/19 21:00 Constitutional: Yes: No Distress, Calm Cardiovascular: Yes: Regular Rate and Rhythm Respiratory: Yes: Regular Gastrointestinal: Yes: Normal Bowel Sounds, Soft, Abdomen, Obese Musculoskeletal: Yes: WNL Integumentary: Yes: WNL Neurological: Yes: Alert, Oriented Labs: CBC, BMP 09/14/19 07:45 09/14/19 07:45 INR, PTT INR 0.99 (0.83-1.09) 09/05/19 13:45 Laboratory Results - last 24 hr 09/13/19 09/13/19 09/14/19 17:23 21:35 06:35 WBC RBC Hgb Hct MCV MCH MCHC RDW Plt Count MPV Absolute Neuts (auto) Neutrophils % Lymphocytes % Monocytes % Eosinophils % Basophils % Nucleated RBC % Sodium Potassium Chloride Carbon Dioxide Anion Gap BUN Creatinine Est GFR (CKD-EPI)AfAm Est GFR (CKD-EPI)NonAf POC Glucometer 165 172 116 Random Glucose Calcium Magnesium Total Bilirubin AST ALT Alkaline Phosphatase Total Protein Albumin 09/14/19 09/14/19 09/14/19 07:45 07:45 11:54 WBC 7.5 RBC 2.83 L Hgb 8.5 L Hct 25.4 L MCV 89.6 MCH 30.0 MCHC 33.5 RDW 16.0 H Plt Count 198 MPV 8.7 Absolute Neuts (auto) 4.3 Neutrophils % 57.8 Lymphocytes % 37.2 Monocytes % 4.6 Eosinophils % 0.0 Basophils % 0.4 Nucleated RBC % 0 Sodium 136 Potassium 3.5 Chloride 99 Carbon Dioxide 31 Anion Gap 7 L BUN 13.9 Creatinine 3.4 H Est GFR (CKD-EPI)AfAm 17.08 Est GFR (CKD-EPI)NonAf 14.74 POC Glucometer 142 Random Glucose 95 Calcium 8.1 L Magnesium 1.8 Total Bilirubin 0.6 AST 35 ALT 30 Alkaline Phosphatase 411 H Total Protein 5.9 L Albumin 2.4 L 09/14/19 16:34 WBC RBC Hgb Hct MCV MCH MCHC RDW Plt Count MPV Absolute Neuts (auto) Neutrophils % Lymphocytes % Monocytes % Eosinophils % Basophils % Nucleated RBC % Sodium Potassium Chloride Carbon Dioxide Anion Gap BUN Creatinine Est GFR (CKD-EPI)AfAm Est GFR (CKD-EPI)NonAf POC Glucometer 173 Random Glucose Calcium Magnesium Total Bilirubin AST ALT Alkaline Phosphatase Total Protein Albumin Problem List - Problems (1) LUCY (acute kidney injury) Code(s): N17.9 - ACUTE KIDNEY FAILURE, UNSPECIFIED (2) AMS (altered mental status) Code(s): R41.82 - ALTERED MENTAL STATUS, UNSPECIFIED (3) Acute metabolic encephalopathy Code(s): G93.41 - METABOLIC ENCEPHALOPATHY (4) Acute respiratory failure Code(s): J96.00 - ACUTE RESPIRATORY FAILURE, UNSP W HYPOXIA OR HYPERCAPNIA (5) Anemia Code(s): D64.9 - ANEMIA, UNSPECIFIED (6) COPD (chronic obstructive pulmonary disease) Code(s): J44.9 - CHRONIC OBSTRUCTIVE PULMONARY DISEASE, UNSPECIFIED (7) Diabetes Code(s): E11.9 - TYPE 2 DIABETES MELLITUS WITHOUT COMPLICATIONS (8) HTN (hypertension) Code(s): I10 - ESSENTIAL (PRIMARY) HYPERTENSION (9) Hypercapnic respiratory failure Code(s): J96.92 - RESPIRATORY FAILURE, UNSPECIFIED WITH HYPERCAPNIA (10) Hypothermia Code(s): T68.XXXA - HYPOTHERMIA, INITIAL ENCOUNTER (11) Morbid obesity Code(s): E66.01 - MORBID (SEVERE) OBESITY DUE TO EXCESS CALORIES (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
[2019-09-14] MEDS ORDERED: INSULIN (NOVOLOG) ASPART 100 UNITS/ML 10ML VIAL ONE (21:35)
[2019-09-14] MEDS: ATORVASTATIN CA 40 MG TABLET (FP) PO SCH (21:55)
[2019-09-15] MEDS ORDERED: LEVOTHYROXINE NA 200 MCG TABLET ONE (05:23)
[2019-09-15] MEDS ORDERED: LEVOTHYROXINE NA 25 MCG TABLET (FP) ONE (05:24)
[2019-09-15] MEDS ORDERED: INSULIN (NOVOLOG) ASPART 100 UNITS/ML 10ML VIAL ONE (05:56)
[2019-09-15] MEDS: LABETALOL HCL 100 MG TABLET (FP) PO SCH ×3 (06:23→22:34)
[2019-09-15] MEDS: LEVOTHYROXINE 200 MCG, LEVOTHYROXINE 25 MCG PO SCH (06:24)
[2019-09-15] MEDS: INSULIN SLIDING SCALE (NOVOLOG) 1 VIAL SQ SCH ×4 (06:37→22:34)
--- NOTE | 2019-09-15 08:24 | PN ---
Progress Note, Physician Chief Complaint: Patient seen and examined at the bedside. Awaiting insurance clearance for HD placement History of Present Illness: OBJECTIVE: Patient is a 54 year old female with a significant past medical history of hypertension, hyperlipidemia, diabetes, COPD, anemia, thyroid cancer 6 years ago (no prior admission to [facility]). Patient brought into the ED for altered mental status, acute shortness of breath, metabolic acidosis. She was found to have an elevated TSH, low t4 and hypothermic (96f-97-on mariana hugger). Urine was + for ecstasy. on admission had renal failure with a creat of 7.7, bun of 65,mag 1.6, elevated ast/alt. she was admitted to the ICU and since 09/04, is being monitored on med surg unit. - Current Medication List Current Medications: Active Medications Acetaminophen (Tylenol -) 650 mg PO Q6H PRN PRN Reason: Fever Or Pain Amlodipine Besylate (Norvasc -) 10 mg PO DAILY [facility] Last Admin: 09/14/19 09:49 Dose: 10 mg Atorvastatin Calcium (Lipitor -) 40 mg PO HS [facility] Last Admin: 09/14/19 21:55 Dose: 40 mg Famotidine (Acid [employer]) 20 mg PO Q2D [facility] Last Admin: 09/14/19 09:50 Dose: 20 mg Sodium Chloride (Normal Saline -) 250 mls @ 3,000 mls/hr IV PRN PRN PRN Reason: Hypotension during Dialysis Insulin Aspart (Novolog Vial Sliding Scale -) 1 vial SQ ACHS [facility]; Protocol Last Admin: 09/15/19 06:37 Dose: Not Given Labetalol HCl (Normodyne -) 200 mg PO TID [facility] Last Admin: 09/15/19 06:23 Dose: 200 mg Levothyroxine Sodium 200 mcg/ (Levothyroxine Sodium 25 mcg) 225 mcg PO DAILY@ 0700 [facility] Last Admin: 09/15/19 06:24 Dose: 225 mcg Paroxetine HCl (Paxil -) 40 mg PO DAILY [facility] Last Admin: 09/14/19 09:49 Dose: 40 mg Prednisone (Deltasone -) 5 mg PO DAILY [facility] Stop: 09/18/19 10:05 - Objective Vital Signs: Vital Signs Temperature 99.3 F 09/15/19 06:35 Pulse Rate 66 09/15/19 06:35 Respiratory Rate 20 01/05/20 06:35 Blood Pressure 142/65 09/15/19 06:35 O2 Sat by Pulse Oximetry (%) 96 09/14/19 21:00 Additional Findings/Remarks: Constitutional: Yes: Well Nourished, No Distress, Calm Eyes: Yes: WNL, Conjunctiva Clear HENT: Yes: WNL, Atraumatic, Normocephalic Neck: Yes: Other (permacath) Cardiovascular: Yes: WNL, Regular Rate and Rhythm Respiratory: Yes: WNL, Regular, CTA Bilaterally Gastrointestinal: Yes: WNL, Normal Bowel Sounds, Soft, Abdomen, Obese ...Rectal Exam: Yes: Deferred Genitourinary: Yes: incontinent Breast(s): Yes: WNL Musculoskeletal: Yes: Muscle Weakness Extremities: Yes: WNL Edema: Yes Edema: LUE: Trace, RUE: Trace, LLE: Trace, RLE: Trace Peripheral Pulses WNL: Yes Peripheral Pulses: Left Radial: 2+, Right Radial: 2+, Left Doralis Pedis: 2+, Right Dorsalis Pedis: 2+, Left Femoral: 2+, Right Femoral: 2+ Integumentary: Yes: WNL Neurological: Yes: WNL, Alert ...Motor Strength: LLE, RLE (genralized weakness) Psychiatric: Yes: WNL Labs: CBC, BMP 09/14/19 07:45 09/14/19 07:45 INR, PTT INR 0.99 (0.83-1.09) 09/05/19 13:45 Problem List - Problems (1) HTN (hypertension) Assessment/Plan: c/w norvasc 10mg & labetolol 200mg tid Code(s): I10 - ESSENTIAL (PRIMARY) HYPERTENSION (2) HLD (hyperlipidemia) Assessment/Plan: c/w atorvastatin Code(s): E78.5 - HYPERLIPIDEMIA, UNSPECIFIED (3) COPD (chronic obstructive pulmonary disease) Assessment/Plan: duo nebs q4h completed antibiotics supplemental O2 to maintain SpO2 >90% Code(s): J44.9 - CHRONIC OBSTRUCTIVE PULMONARY DISEASE, UNSPECIFIED (4) Anemia Assessment/Plan: chronic anemia Hgb 8.5 continue to monitor Code(s): D64.9 - ANEMIA, UNSPECIFIED (5) Thyroid cancer Code(s): C73 - MALIGNANT NEOPLASM OF THYROID GLAND (6) Acute respiratory failure Assessment/Plan: resolved tolerating NC at 2L Code(s): J96.00 - ACUTE RESPIRATORY FAILURE, UNSP W HYPOXIA OR HYPERCAPNIA (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 level resent and pending Code(s): F16.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 ABUSE, UNCOMPLICATED (8) LUCY (acute kidney injury) Assessment/Plan: HD as per renal avoid nephrotoxic agents Code(s): N17.9 - ACUTE KIDNEY FAILURE, UNSPECIFIED (9) Acute metabolic encephalopathy Assessment/Plan: resolved avoid any sedating agents Code(s): G93.41 - METABOLIC ENCEPHALOPATHY (10) Morbid obesity Code(s): E66.01 - MORBID (SEVERE) OBESITY DUE TO EXCESS CALORIES (11) Prophylactic measure Assessment/Plan: FEN no additional IVF soft diet [employer] following monitor electrolytes DVT SCDs Dispo maintain as inpatient full code discharge planning-lapse in insurance- following Code(s): Z29.9 - ENCOUNTER FOR PROPHYLACTIC MEASURES, UNSPECIFIED (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 Code(s): B19.10 - UNSPECIFIED VIRAL HEPATITIS B WITHOUT HEPATIC COMA Qualifiers: Viral hepatitis chronicity: chronic Visit type - Emergency Visit Emergency Visit: Yes ED Registration Date: 08/25/19 Care time: The patient presented to the Emergency Department on the above date and was hospitalized for further evaluation of their emergent condition. - New Patient This patient is new to me today: No - Critical Care Critical Care patient: No - Discharge Referral Referred to [facility] Med P.C.: No
[2019-09-15 09:22] LABS: BASO % 0.4 % (0-2.0); HEMATOCRIT 24.5 % (32.4-45.2); HEMOGLOBIN 8.3 GM/dL (10.7-15.3); LYMPH % 43.4 % (8-40); MCH 30.3 pg (25.7-33.7); MCHC 33.9 g/dl (32.0-36.0); MEAN CELL VOLUME 89.4 fl (80-96); MEAN PLT VOLUME 8.5 fl (7.5-11.1); NEUT % 51.2 % (42.8-82.8); PLATELET COUNT 207 K/MM3 (134-434); RBC 2.74 M/mm3 (3.60-5.2); RDW 15.9 % (11.6-15.6); WHITE BLOOD COUNT 7.6 K/mm3 (4.0-10.0)
[2019-09-15 10:04] LABS: ALBUMIN 2.6 g/dl (3.4-5.0); BILIRUBIN,TOTAL 0.6 mg/dL (0.2-1); CALCIUM 8.1 mg/dL (8.5-10.1); CREATININE 4.6 mg/dL (0.55-1.3); MAGNESIUM 1.6 mg/dL (1.8-2.4); POTASSIUM 3.4 mmol/L (3.5-5.1); TOT PROT 6.4 g/dl (6.4-8.2)
[2019-09-15] MEDS ORDERED: PT OWN MED DRAWER 7, Y5N ONE (10:44)
[2019-09-15] MEDS: PARoxetine HCL 20 MG TABLET PO SCH (10:55)
[2019-09-15] MEDS: predniSONE 5 MG TABLET (UD) PO SCH (10:56)
[2019-09-15] MEDS: amLODIPine BESYLATE 10 MG TABLET (FP) PO SCH (10:56)
--- NOTE | 2019-09-15 11:32 | PN ---
Progress Note (short form) - Note Progress Note: Resting in NAD. Denies CP or SOB. No acute events overnight. Intake & Output 09/12/19 09/13/19 09/14/19 09/15/19 23:59 23:59 23:59 23:59 Intake Total 7110 216 3675 300 Output Total 1 Balance 8166 573 3420 300 Last Vital Signs Temp Pulse Resp BP Pulse Ox 98.8 F 63 18 109/51 L 96 09/15/19 10:59 09/15/19 10:59 09/15/19 10:59 09/15/19 10:59 09/14/19 21:00 Active Medications Acetaminophen (Tylenol -) 650 mg PO Q6H PRN PRN Reason: Fever Or Pain Amlodipine Besylate (Norvasc -) 10 mg PO DAILY [facility] Last Admin: 09/15/19 10:56 Dose: 10 mg Atorvastatin Calcium (Lipitor -) 40 mg PO HS [facility] Last Admin: 09/14/19 21:55 Dose: 40 mg Famotidine (Acid Cross Tie Maker) 20 mg PO Q2D [facility] Last Admin: 09/14/19 09:50 Dose: 20 mg Sodium Chloride (Normal Saline -) 250 mls @ 3,000 mls/hr IV PRN PRN PRN Reason: Hypotension during Dialysis Insulin Aspart (Novolog Vial Sliding Scale -) 1 vial SQ ACHS [facility]; Protocol Last Admin: 09/15/19 06:37 Dose: Not Given Labetalol HCl (Normodyne -) 200 mg PO TID [facility] Last Admin: 09/15/19 06:23 Dose: 200 mg Levothyroxine Sodium 200 mcg/ (Levothyroxine Sodium 25 mcg) 225 mcg PO DAILY@ 0700 [facility] Last Admin: 09/15/19 06:24 Dose: 225 mcg Paroxetine HCl (Paxil -) 40 mg PO DAILY [facility] Last Admin: 09/15/19 10:55 Dose: 40 mg Prednisone (Deltasone -) 5 mg PO DAILY [facility] Stop: 09/18/19 10:05 Last Admin: 09/15/19 10:56 Dose: 5 mg Gen: NAD Heart: RRR Lung: decreased breath sounds at the bases Abd: soft, nontender Ext: + edema improving Laboratory Results - last 24 hr 09/14/19 09/14/19 09/14/19 11:54 16:34 21:32 WBC RBC Hgb Hct MCV MCH MCHC RDW Plt Count MPV Absolute Neuts (auto) Neutrophils % Lymphocytes % Monocytes % Eosinophils % Basophils % Nucleated RBC % Sodium Potassium Chloride Carbon Dioxide Anion Gap BUN Creatinine Est GFR (CKD-EPI)AfAm Est GFR (CKD-EPI)NonAf POC Glucometer 142 173 161 Random Glucose Calcium Magnesium Total Bilirubin AST ALT Alkaline Phosphatase Total Protein Albumin 09/15/19 09/15/19 09/15/19 05:52 08:26 08:26 WBC 7.6 RBC 2.74 L Hgb 8.3 L Hct 24.5 L MCV 89.4 MCH 30.3 MCHC 33.9 RDW 15.9 H Plt Count 207 MPV 8.5 Absolute Neuts (auto) 3.9 Neutrophils % 51.2 Lymphocytes % 43.4 H Monocytes % 5.0 Eosinophils % 0.0 Basophils % 0.4 Nucleated RBC % 0 Sodium 137 Potassium 3.4 L Chloride 99 Carbon Dioxide 31 Anion Gap 7 L BUN 19.0 H Creatinine 4.6 H Est GFR (CKD-EPI)AfAm 11.85 Est GFR (CKD-EPI)NonAf 10.23 POC Glucometer 100 Random Glucose 92 Calcium 8.1 L Magnesium 1.6 L Total Bilirubin 0.6 AST 35 ALT 31 Alkaline Phosphatase 405 H Total Protein 6.4 Albumin 2.6 L ASSESSMENT AND PLAN: Acute Hypercapneic Respiratory Failure Myxedema Coma UTI Acute Kidney Injury requiring HD Volume Overload Pleural Effusions COPD DM Anemia - HD per renal - Prednisone & synthroid per Endocrine - O2 as needed - PO as tolerated - DVT/GI prophylaxis - DC planning Dr Alonso
[2019-09-15] MEDS ORDERED: POTASSIUM CHLORIDE TABS 20 MEQ TABLET.ER (FP) PO ONE (12:24)
[2019-09-15] MEDS ORDERED: MAGNESIUM OXIDE 400 MG TABLET (FP) PO ONE (12:24)
--- NOTE | 2019-09-15 16:29 | PN ---
Progress Note, Physician History of Present Illness: No new events. Pt states she feels well. Remains afebrile. - Current Medication List Current Medications: Active Medications Acetaminophen (Tylenol -) 650 mg PO Q6H PRN PRN Reason: Fever Or Pain Amlodipine Besylate (Norvasc -) 10 mg PO DAILY [facility] Last Admin: 09/15/19 10:56 Dose: 10 mg Atorvastatin Calcium (Lipitor -) 40 mg PO HS [facility] Last Admin: 09/14/19 21:55 Dose: 40 mg Famotidine (Acid Butane Compressor Operator) 20 mg PO Q2D [facility] Last Admin: 09/14/19 09:50 Dose: 20 mg Sodium Chloride (Normal Saline -) 250 mls @ 3,000 mls/hr IV PRN PRN PRN Reason: Hypotension during Dialysis Insulin Aspart (Novolog Vial Sliding Scale -) 1 vial SQ ACHS [facility]; Protocol Last Admin: 09/15/19 11:57 Dose: Not Given Labetalol HCl (Normodyne -) 200 mg PO TID [facility] Last Admin: 09/15/19 13:53 Dose: 200 mg Levothyroxine Sodium 200 mcg/ (Levothyroxine Sodium 25 mcg) 225 mcg PO DAILY@ 0700 [facility] Last Admin: 09/15/19 06:24 Dose: 225 mcg Paroxetine HCl (Paxil -) 40 mg PO DAILY [facility] Last Admin: 09/15/19 10:55 Dose: 40 mg Prednisone (Deltasone -) 5 mg PO DAILY [facility] Stop: 09/18/19 10:05 Last Admin: 09/15/19 10:56 Dose: 5 mg - Objective Vital Signs: Vital Signs Temperature 98.5 F 09/15/19 15:29 Pulse Rate 64 09/15/19 15:29 Respiratory Rate 18 09/15/19 15:29 Blood Pressure 137/55 L 09/15/19 15:29 O2 Sat by Pulse Oximetry (%) 96 09/14/19 21:00 Constitutional: Yes: No Distress, Calm Cardiovascular: Yes: Regular Rate and Rhythm Respiratory: Yes: Regular Gastrointestinal: Yes: Normal Bowel Sounds, Soft Genitourinary: Yes: WNL Integumentary: Yes: WNL Neurological: Yes: Alert Labs: CBC, BMP 09/15/19 08:26 09/15/19 08:26 INR, PTT INR 0.99 (0.83-1.09) 09/05/19 13:45 Problem List - Problems (1) LUCY (acute kidney injury) Code(s): N17.9 - ACUTE KIDNEY FAILURE, UNSPECIFIED (2) AMS (altered mental status) Code(s): R41.82 - ALTERED MENTAL STATUS, UNSPECIFIED (3) Acute metabolic encephalopathy Code(s): G93.41 - METABOLIC ENCEPHALOPATHY (4) Acute respiratory failure Code(s): J96.00 - ACUTE RESPIRATORY FAILURE, UNSP W HYPOXIA OR HYPERCAPNIA (5) Anemia Code(s): D64.9 - ANEMIA, UNSPECIFIED (6) COPD (chronic obstructive pulmonary disease) Code(s): J44.9 - CHRONIC OBSTRUCTIVE PULMONARY DISEASE, UNSPECIFIED (7) Diabetes Code(s): E11.9 - TYPE 2 DIABETES MELLITUS WITHOUT COMPLICATIONS (8) HTN (hypertension) Code(s): I10 - ESSENTIAL (PRIMARY) HYPERTENSION (9) Hypercapnic respiratory failure Code(s): J96.92 - RESPIRATORY FAILURE, UNSPECIFIED WITH HYPERCAPNIA (10) Hypothermia Code(s): T68.XXXA - HYPOTHERMIA, INITIAL ENCOUNTER (11) Morbid obesity Code(s): E66.01 - MORBID (SEVERE) OBESITY DUE TO EXCESS CALORIES (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 - MYXEDEMA COMA (13) Thyroid cancer Code(s): C73 - MALIGNANT NEOPLASM OF THYROID GLAND Assessment/Plan Acute respiratory failure - s/p extubation Acute metabolic encephalopathy AMS Myxedema coma DM LUCY on CKD - on HD Obesity Hx of thyroid CA s/p thyroidectomy HTN HLD COPD Anemia Hepatitis B -- Pt alert, afebrile, without distress -- completed course of antibiotics -- Hepatitis B serology results noted, outpatient follow up needed for further management
[2019-09-15] MEDS: ATORVASTATIN CA 40 MG TABLET (FP) PO SCH (22:34)
[2019-09-16] MEDS ORDERED: LEVOTHYROXINE NA 25 MCG TABLET (FP) ONE (05:47)
[2019-09-16] MEDS ORDERED: LEVOTHYROXINE NA 200 MCG TABLET ONE (05:47)
[2019-09-16] MEDS: LABETALOL HCL 100 MG TABLET (FP) PO SCH ×2 (05:56→14:47)
[2019-09-16] MEDS: INSULIN SLIDING SCALE (NOVOLOG) 1 VIAL SQ SCH ×4 (06:31→21:25)
[2019-09-16] MEDS: LEVOTHYROXINE 200 MCG, LEVOTHYROXINE 25 MCG PO SCH (06:32)
[2019-09-16 07:28] LABS: BASO % 0.3 % (0-2.0); HEMATOCRIT 25.8 % (32.4-45.2); HEMOGLOBIN 8.7 GM/dL (10.7-15.3); LYMPH % 43.8 % (8-40); MCH 30.3 pg (25.7-33.7); MCHC 33.6 g/dl (32.0-36.0); MEAN CELL VOLUME 90.1 fl (80-96); MEAN PLT VOLUME 8.6 fl (7.5-11.1); MONO % 4.3 % (3.8-10.2); NEUT % 51.6 % (42.8-82.8); PLATELET COUNT 200 K/MM3 (134-434); RBC 2.87 M/mm3 (3.60-5.2); RDW 15.7 % (11.6-15.6); WHITE BLOOD COUNT 7.3 K/mm3 (4.0-10.0)
--- NOTE | 2019-09-16 07:51 | PN ---
Progress Note, Physician Chief Complaint: Patient seen and examined at the bedside. Awaiting insurance clearance for HD placement. Pending AV fistula today History of Present Illness: OBJECTIVE: Patient is a 54 year old female with a significant past medical history of hypertension, hyperlipidemia, diabetes, COPD, anemia, thyroid cancer 6 years ago (no prior admission to [facility]). Patient brought into the ED for altered mental status, acute shortness of breath, metabolic acidosis. She was found to have an elevated TSH, low t4 and hypothermic ([id number] mariana hugger). Urine was + for ecstasy. on admission had renal failure with a creat of 7.7, bun of 65,mag 1.6, elevated ast/alt. she was admitted to the ICU and since 09/04, is being monitored on med surg unit. - Current Medication List Current Medications: Active Medications Acetaminophen (Tylenol -) 650 mg PO Q6H PRN PRN Reason: Fever Or Pain Amlodipine Besylate (Norvasc -) 10 mg PO DAILY [facility] Last Admin: 09/15/19 10:56 Dose: 10 mg Atorvastatin Calcium (Lipitor -) 40 mg PO HS [facility] Last Admin: 09/15/19 22:34 Dose: 40 mg Famotidine (Acid Knowledge Analyst) 20 mg PO Q2D [facility] Last Admin: 09/14/19 09:50 Dose: 20 mg Sodium Chloride (Normal Saline -) 250 mls @ 3,000 mls/hr IV PRN PRN PRN Reason: Hypotension during Dialysis Insulin Aspart (Novolog Vial Sliding Scale -) 1 vial SQ ACHS [facility]; Protocol Last Admin: 09/16/19 06:31 Dose: Not Given Labetalol HCl (Normodyne -) 200 mg PO TID [facility] Last Admin: 09/16/19 05:56 Dose: 200 mg Levothyroxine Sodium 200 mcg/ (Levothyroxine Sodium 25 mcg) 225 mcg PO DAILY@ 0700 [facility] Last Admin: 09/16/19 06:32 Dose: 225 mcg Paroxetine HCl (Paxil -) 40 mg PO DAILY [facility] Last Admin: 09/15/19 10:55 Dose: 40 mg Prednisone (Deltasone -) 5 mg PO DAILY [facility] Stop: 09/18/19 10:05 Last Admin: 09/15/19 10:56 Dose: 5 mg - Objective Vital Signs: Vital Signs Temperature 98.3 F 01/06/20 06:00 Pulse Rate 64 09/16/19 06:00 Respiratory Rate 18 09/16/19 06:00 Blood Pressure 144/69 09/16/19 06:00 O2 Sat by Pulse Oximetry (%) 97 09/15/19 21:00 Additional Findings/Remarks: Constitutional: Yes: Well Nourished, No Distress, Calm Eyes: Yes: WNL, Conjunctiva Clear HENT: Yes: WNL, Atraumatic, Normocephalic Neck: Yes: Other ([place]) Cardiovascular: Yes: WNL, Regular Rate and Rhythm Respiratory: Yes: WNL, Regular, CTA Bilaterally Gastrointestinal: Yes: WNL, Normal Bowel Sounds, Soft, Abdomen, Obese ...Rectal Exam: Yes: Deferred Genitourinary: Yes: incontinent Breast(s): Yes: WNL Musculoskeletal: Yes: Muscle Weakness Extremities: Yes: WNL Edema: Yes Edema: LUE: Trace, RUE: Trace, LLE: Trace, RLE: Trace Peripheral Pulses WNL: Yes Peripheral Pulses: Left Radial: 2+, Right Radial: 2+, Left Doralis Pedis: 2+, Right Dorsalis Pedis: 2+, Left Femoral: 2+, Right Femoral: 2+ Integumentary: Yes: WNL Neurological: Yes: WNL, Alert ...Motor Strength: LLE, RLE (genralized weakness) Psychiatric: Yes: WNL Labs: CBC, BMP 09/16/19 06:25 INR, PTT INR 0.99 (0.83-1.09) 09/05/19 13:45 Problem List - Problems (1) HTN (hypertension) Assessment/Plan: c/w norvasc 10mg & labetolol 200mg tid Code(s): I10 - ESSENTIAL (PRIMARY) HYPERTENSION (2) HLD (hyperlipidemia) Assessment/Plan: c/w atorvastatin Code(s): E78.5 - HYPERLIPIDEMIA, UNSPECIFIED (3) COPD (chronic obstructive pulmonary disease) Assessment/Plan: duo nebs q4h monitor off antibiotics supplemental O2 to maintain SpO2 >90% Code(s): J44.9 - CHRONIC OBSTRUCTIVE PULMONARY DISEASE, UNSPECIFIED (4) Anemia Assessment/Plan: chronic anemia Hgb 8.7 continue to monitor Code(s): D64.9 - ANEMIA, UNSPECIFIED Qualifiers: Other causes of anemia: chronic disease, other (5) Thyroid cancer Code(s): C73 - MALIGNANT NEOPLASM OF THYROID GLAND (6) Acute respiratory failure Assessment/Plan: resolved tolerating NC at 2L Code(s): J96.00 - ACUTE RESPIRATORY FAILURE, UNSP W HYPOXIA OR HYPERCAPNIA (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 MDMA screen + in urine on 09/12, metabolite pending Code(s): F16.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 ABUSE, UNCOMPLICATED (8) LUCY (acute kidney injury) Assessment/Plan: HD as per renal avoid nephrotoxic agents Code(s): N17.9 - ACUTE KIDNEY FAILURE, UNSPECIFIED (9) Acute metabolic encephalopathy Assessment/Plan: resolved avoid any sedating agents Code(s): G93.41 - METABOLIC ENCEPHALOPATHY (10) Morbid obesity Code(s): E66.01 - MORBID (SEVERE) OBESITY DUE TO EXCESS CALORIES (11) Prophylactic measure Assessment/Plan: FEN no additional IVF soft diet PEER FINANCIAL COUNSELOR following monitor electrolytes DVT SCDs Dispo maintain as inpatient full code discharge planning-lapse in insurance- following Code(s): Z29.9 - ENCOUNTER FOR PROPHYLACTIC MEASURES, UNSPECIFIED (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 Assessment/Plan: mental status improved Novolog SS coverage being followed by flat bed knitter On Prednisone 10mg QD, continue for one more day, then Prednisone 5mg for 3 days and then D/C on discharge as per endodrine- Pt go go home on LT4 225 and Prednisone if necessary repeat TFT in 2 weeks [facility] Code(s): E03.5 - MYXEDEMA COMA (13) Hepatitis B Assessment/Plan: Chronic hepatitis B seen by GI-Dr Calvo recommended to have outpatient evaluation for HBV DNA level, alpha-fetoprotein. Code(s): B19.10 - UNSPECIFIED VIRAL HEPATITIS B WITHOUT HEPATIC COMA Qualifiers: Viral hepatitis chronicity: chronic Visit type - Emergency Visit Emergency Visit: Yes ED Registration Date: 08/25/19 Care time: The patient presented to the Emergency Department on the above date and was hospitalized for further evaluation of their emergent condition. - New Patient This patient is new to me today: No - Critical Care Critical Care patient: No - Discharge Referral Referred to [facility] Med P.C.: No
[2019-09-16 07:53] LABS: ALBUMIN 2.6 g/dl (3.4-5.0); BILIRUBIN,TOTAL 0.5 mg/dL (0.2-1); BLOOD UREA NITROGEN 21.3 mg/dL (7-18); CREATININE 5.2 mg/dL (0.55-1.3); MAGNESIUM 1.8 mg/dL (1.8-2.4); POTASSIUM 3.9 mmol/L (3.5-5.1); TOT PROT 6.3 g/dl (6.4-8.2)
--- NOTE | 2019-09-16 09:58 | PN ---
Progress Note (short form) - Note Progress Note: 54 year old female history of HTN, HLD, DM COPD, Anemia thyroid cancer. Patient came with ams and had CHF, renal failure , anemia . James was intubated, she was hypothermic. She is on sedation . Ganesh has ct head and there is mild dilation of ventricles. Patient is getting dialysed in hospital and waiting for medicaid paper to be processed before discharged. NEUROLOGICAL EXAMINATION neck is supple , hypertensive, alert oriented x 3( knows her name where she is , is able to tell me today is september 06 but mistake on year) pupils reactive no face asymmetry moving all ext , generalized proximal weakness rest of neuro exam is not possible ct head reviewed and mild ventricular dilatation and this could be due to intercurrent illness Assessment/Plan4 year old female history of HTN, HLD, DM COPD, Anemia thyroid cancer. Patient came with ams and had CHF, renal failure , anemia . she is able to walk around and waiting to be dicharged Plan: supportive care and follow up outpatient no need for further work up at this time. Thanking you so much Hill Hayden MD
--- NOTE | 2019-09-16 10:54 | PN ---
Progress Note (short form) - Note Progress Note: Resting in NAD. Denies CP or SOB. No acute events overnight. Intake & Output 09/13/19 09/14/19 09/15/19 09/16/19 23:59 23:59 23:59 23:59 Intake Total 500 1260 1110 Output Total 1 Balance 499 1260 1110 Last Vital Signs Temp Pulse Resp BP Pulse Ox 98.3 F 64 18 144/69 97 09/16/19 06:00 09/16/19 06:00 09/16/19 06:00 09/16/19 06:00 09/15/19 21:00 Active Medications Acetaminophen (Tylenol -) 650 mg PO Q6H PRN PRN Reason: Fever Or Pain Amlodipine Besylate (Norvasc -) 10 mg PO DAILY [facility] Last Admin: 09/15/19 10:56 Dose: 10 mg Atorvastatin Calcium (Lipitor -) 40 mg PO HS [facility] Last Admin: 09/15/19 22:34 Dose: 40 mg Famotidine (Acid Main Entree Cook And Cashier) 20 mg PO Q2D [facility] Last Admin: 09/14/19 09:50 Dose: 20 mg Sodium Chloride (Normal Saline -) 250 mls @ 3,000 mls/hr IV PRN PRN PRN Reason: Hypotension during Dialysis Insulin Aspart (Novolog Vial Sliding Scale -) 1 vial SQ ACHS [facility]; Protocol Last Admin: 09/16/19 06:31 Dose: Not Given Labetalol HCl (Normodyne -) 200 mg PO TID [facility] Last Admin: 09/16/19 05:56 Dose: 200 mg Levothyroxine Sodium 200 mcg/ (Levothyroxine Sodium 25 mcg) 225 mcg PO DAILY@ 0700 [facility] Last Admin: 09/16/19 06:32 Dose: 225 mcg Paroxetine HCl (Paxil -) 40 mg PO DAILY [facility] Last Admin: 09/15/19 10:55 Dose: 40 mg Prednisone (Deltasone -) 5 mg PO DAILY [facility] Stop: 09/18/19 10:05 Last Admin: 09/15/19 10:56 Dose: 5 mg Gen: NAD Heart: RRR Lung: decreased breath sounds at the bases Abd: soft, nontender Ext: + edema improving Laboratory Results - last 24 hr 09/15/19 09/15/19 09/15/19 11:57 17:30 22:33 WBC RBC Hgb Hct MCV MCH MCHC RDW Plt Count MPV Absolute Neuts (auto) Neutrophils % Lymphocytes % Monocytes % Eosinophils % Basophils % Nucleated RBC % Sodium Potassium Chloride Carbon Dioxide Anion Gap BUN Creatinine Est GFR (CKD-EPI)AfAm Est GFR (CKD-EPI)NonAf POC Glucometer 122 135 147 Random Glucose Calcium Magnesium Total Bilirubin AST ALT Alkaline Phosphatase Total Protein Albumin 09/16/19 09/16/19 09/16/19 05:55 06:25 06:25 WBC 7.3 RBC 2.87 L Hgb 8.7 L Hct 25.8 L MCV 90.1 MCH 30.3 MCHC 33.6 RDW 15.7 H Plt Count 200 MPV 8.6 Absolute Neuts (auto) 3.8 Neutrophils % 51.6 Lymphocytes % 43.8 H Monocytes % 4.3 Eosinophils % 0.0 Basophils % 0.3 Nucleated RBC % 0 Sodium 138 Potassium 3.9 Chloride 101 Carbon Dioxide 28 Anion Gap 9 BUN 21.3 H Creatinine 5.2 H Est GFR (CKD-EPI)AfAm 10.22 Est GFR (CKD-EPI)NonAf 8.82 POC Glucometer 77 Random Glucose 81 Calcium 8.0 L Magnesium 1.8 Total Bilirubin 0.5 AST 35 ALT 31 Alkaline Phosphatase 391 H Total Protein 6.3 L Albumin 2.6 L ASSESSMENT AND PLAN: Acute Hypercapneic Respiratory Failure Myxedema Coma UTI Acute Kidney Injury requiring HD Volume Overload Pleural Effusions COPD DM Anemia - HD per renal - Prednisone & synthroid per Endocrine - O2 as needed - PO as tolerated - DVT/GI prophylaxis - DC planning Dr Alonso
[2019-09-16] MEDS ORDERED: HEPARIN NA (PORCINE) 5,000 UNITS/ML 1ML VIAL ONE (11:23)
[2019-09-16] MEDS ORDERED: LIDOCAINE HCL 1%, 10 MG/ML (20ML VIAL) ONE (11:23)
[2019-09-16] MEDS ORDERED: POVIDONE-IODINE OINTMENT 10% - 28.4 GM TUBE ONE (11:23)
[2019-09-16] MEDS: predniSONE 5 MG TABLET (UD) PO SCH (11:31)
[2019-09-16] MEDS: FAMOTIDINE 10 MG TABLET PO SCH (11:31)
[2019-09-16] MEDS: PARoxetine HCL 20 MG TABLET PO SCH (11:31)
[2019-09-16] MEDS: amLODIPine BESYLATE 10 MG TABLET (FP) PO SCH (11:35)
--- NOTE | 2019-09-16 12:10 | PN ---
Progress Note, Physician History of Present Illness: Pt seen and examined at bedside. She is awake and alert. She denies shortness of breath. She says she does not make much urine. - Current Medication List Current Medications: Active Medications Acetaminophen (Tylenol -) 650 mg PO Q6H PRN PRN Reason: Fever Or Pain Amlodipine Besylate (Norvasc -) 10 mg PO DAILY [facility] Last Admin: 09/16/19 11:35 Dose: 10 mg Atorvastatin Calcium (Lipitor -) 40 mg PO HS [facility] Last Admin: 09/15/19 22:34 Dose: 40 mg Famotidine (Acid Teenage Program Director) 20 mg PO Q2D [facility] Last Admin: 09/16/19 11:31 Dose: Not Given Sodium Chloride (Normal Saline -) 250 mls @ 3,000 mls/hr IV PRN PRN PRN Reason: Hypotension during Dialysis Insulin Aspart (Novolog Vial Sliding Scale -) 1 vial SQ ACHS [facility]; Protocol Last Admin: 09/16/19 11:46 Dose: Not Given Labetalol HCl (Normodyne -) 200 mg PO TID [facility] Last Admin: 09/16/19 05:56 Dose: 200 mg Levothyroxine Sodium 200 mcg/ (Levothyroxine Sodium 25 mcg) 225 mcg PO DAILY@ 0700 [facility] Last Admin: 09/16/19 06:32 Dose: 225 mcg Paroxetine HCl (Paxil -) 40 mg PO DAILY [facility] Last Admin: 09/16/19 11:31 Dose: Not Given Prednisone (Deltasone -) 5 mg PO DAILY [facility] Stop: 09/18/19 10:05 Last Admin: 09/16/19 11:31 Dose: Not Given - Objective Vital Signs: Vital Signs Temperature 98.7 F 09/16/19 11:44 Pulse Rate 67 09/16/19 11:44 Respiratory Rate 18 09/16/19 11:44 Blood Pressure 143/77 09/16/19 11:44 O2 Sat by Pulse Oximetry (%) 97 09/15/19 21:00 Constitutional: Yes: Calm Eyes: Yes: Conjunctiva Clear HENT: Yes: Atraumatic Cardiovascular: Yes: S1, S2 Respiratory: Yes: CTA Bilaterally Gastrointestinal: Yes: Soft, Abdomen, Obese Musculoskeletal: Yes: WNL Edema: No Integumentary: Yes: Tattoos Neurological: Yes: Oriented Psychiatric: Yes: Oriented Labs: CBC, BMP 09/16/19 06:25 09/16/19 06:25 INR, PTT INR 0.99 (0.83-1.09) 09/05/19 13:45 Problem List - Problems (1) AMS (altered mental status) Code(s): R41.82 - ALTERED MENTAL STATUS, UNSPECIFIED (2) Acute metabolic encephalopathy Code(s): G93.41 - METABOLIC ENCEPHALOPATHY (3) Acute renal failure Code(s): N17.9 - ACUTE KIDNEY FAILURE, UNSPECIFIED (4) Diabetes Code(s): E11.9 - TYPE 2 DIABETES MELLITUS WITHOUT COMPLICATIONS (5) Hypercapnic respiratory failure Code(s): J96.92 - RESPIRATORY FAILURE, UNSPECIFIED WITH HYPERCAPNIA (6) Hypothermia Code(s): T68.XXXA - HYPOTHERMIA, INITIAL ENCOUNTER (7) Morbid obesity Code(s): E66.01 - MORBID (SEVERE) OBESITY DUE TO EXCESS CALORIES Assessment/Plan Current Medications Generic Name Dose Route Start Last Admin Trade Name Freq PRN Reason Stop Dose Admin Acetaminophen 650 mg 09/06/19 15:49 Tylenol - PO Q6H PRN Fever Or Pain Amlodipine Besylate 10 mg 09/06/19 10:00 09/16/19 11:35 Norvasc - PO 10 mg DAILY [facility] Administration Atorvastatin Calcium 40 mg 09/06/19 22:00 09/15/19 22:34 Lipitor - PO 40 mg HS [facility] Administration Famotidine 20 mg 09/06/19 10:00 09/16/19 11:31 Acid Teenage Program Director PO Not Given Q2D [facility] Sodium Chloride 250 mls @ 3,000 mls/hr 09/08/19 13:00 Normal Saline - IV PRN PRN Hypotension during Dialysis Insulin Aspart 1 vial 09/05/19 16:30 09/16/19 11:46 Novolog Vial Sliding Scale - SQ Not Given ACHS [facility] Protocol Labetalol HCl 200 mg 09/05/19 14:00 09/16/19 05:56 Normodyne - PO 200 mg TID [facility] Administration Levothyroxine Sodium 200 mcg/ 225 mcg 09/10/19 07:00 09/16/19 06:32 Levothyroxine Sodium 25 mcg PO 225 mcg DAILY@0700 [facility] Administration Paroxetine HCl 40 mg 09/06/19 10:00 09/16/19 11:31 Paxil - PO Not Given DAILY [facility] Prednisone 5 mg 09/15/19 10:00 09/16/19 11:31 Deltasone - PO 09/18/19 10:05 Not Given DAILY [facility] Impression 1. LUCY 2. fluid overload 3. acute respiratory failure 4. hypothyroidism with tsh of 100 5. 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 urine tox pos for mdma 7. mild rhabdo 8. hepatitis B 9. ESRD Plan - pending placement for HD - vascular follow up - likely HD tomorrow secondary to scheduling/staffing - monitor urine output if possible - will need GI follow up for hep B
[2019-09-16] MEDS ORDERED: SUCCINYLCHOLINE CHLORIDE 200 MG/10 ML SYRINGE ONE (12:31)
[2019-09-16] MEDS ORDERED: PROPOFOL 20 ML ONE (12:31)
[2019-09-16] MEDS ORDERED: MIDAZOLAM HCL 2 MG/2 ML SINGLE DOSE VIAL ONE ×2 (12:31→13:22)
[2019-09-16] MEDS ORDERED: PAPAVERINE HCL 30 MG/1 ML 10 ML VIAL NR ONE (12:51)
--- NOTE | 2019-09-16 12:54 | PN ---
Progress Note, Physician History of Present Illness: stable for av fistula - Current Medication List Current Medications: Active Medications Acetaminophen (Tylenol -) 650 mg PO Q6H PRN PRN Reason: Fever Or Pain Amlodipine Besylate (Norvasc -) 10 mg PO DAILY [facility] Last Admin: 09/16/19 11:35 Dose: 10 mg Atorvastatin Calcium (Lipitor -) 40 mg PO HS [facility] Last Admin: 09/15/19 22:34 Dose: 40 mg Famotidine (Acid Photograph Tinter) 20 mg PO Q2D [facility] Last Admin: 09/16/19 11:31 Dose: Not Given Sodium Chloride (Normal Saline -) 250 mls @ 3,000 mls/hr IV PRN PRN PRN Reason: Hypotension during Dialysis Insulin Aspart (Novolog Vial Sliding Scale -) 1 vial SQ ACHS [facility]; Protocol Last Admin: 09/16/19 11:46 Dose: Not Given Labetalol HCl (Normodyne -) 200 mg PO TID [facility] Last Admin: 09/16/19 05:56 Dose: 200 mg Levothyroxine Sodium 200 mcg/ (Levothyroxine Sodium 25 mcg) 225 mcg PO DAILY@ 0700 [facility] Last Admin: 09/16/19 06:32 Dose: 225 mcg Paroxetine HCl (Paxil -) 40 mg PO DAILY [facility] Last Admin: 09/16/19 11:31 Dose: Not Given Prednisone (Deltasone -) 5 mg PO DAILY [facility] Stop: 09/18/19 10:05 Last Admin: 09/16/19 11:31 Dose: Not Given - Objective Vital Signs: Vital Signs Temperature 98.7 F 09/16/19 11:44 Pulse Rate 67 09/16/19 11:44 Respiratory Rate 18 09/16/19 11:44 Blood Pressure 143/77 09/16/19 11:44 O2 Sat by Pulse Oximetry (%) 97 09/15/19 21:00 Constitutional: Yes: Calm, Obese, Other Cardiovascular: Yes: Regular Rate and Rhythm Respiratory: Yes: Regular, CTA Bilaterally Gastrointestinal: Yes: Normal Bowel Sounds, Soft Musculoskeletal: Yes: WNL Extremities: Yes: WNL Neurological: Yes: Alert, Oriented Psychiatric: Yes: Alert, Oriented Labs: CBC, BMP 09/16/19 06:25 09/16/19 06:25 INR, PTT INR 0.99 (0.83-1.09) 09/05/19 13:45 Assessment/Plan Problem List - Problems (1) LUCY (acute kidney injury) Code(s): N17.9 - ACUTE KIDNEY FAILURE, UNSPECIFIED (2) AMS (altered mental status) Code(s): R41.82 - ALTERED MENTAL STATUS, UNSPECIFIED (3) Acute metabolic encephalopathy Code(s): G93.41 - METABOLIC ENCEPHALOPATHY (4) Acute respiratory failure Code(s): J96.00 - ACUTE RESPIRATORY FAILURE, UNSP W HYPOXIA OR HYPERCAPNIA (5) Anemia Code(s): D64.9 - ANEMIA, UNSPECIFIED (6) COPD (chronic obstructive pulmonary disease) Code(s): J44.9 - CHRONIC OBSTRUCTIVE PULMONARY DISEASE, UNSPECIFIED (7) Diabetes Code(s): E11.9 - TYPE 2 DIABETES MELLITUS WITHOUT COMPLICATIONS (8) HTN (hypertension) Code(s): I10 - ESSENTIAL (PRIMARY) HYPERTENSION (9) Hypercapnic respiratory failure Code(s): J96.92 - RESPIRATORY FAILURE, UNSPECIFIED WITH HYPERCAPNIA (10) Hypothermia Code(s): T68.XXXA - HYPOTHERMIA, INITIAL ENCOUNTER (11) Morbid obesity Code(s): E66.01 - MORBID (SEVERE) OBESITY DUE TO EXCESS CALORIES (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
[2019-09-16] MEDS ORDERED: LIDOCAINE HCL 1%, 10 MG/ML (20ML VIAL) NR ONE ×2 (13:15)
--- NOTE | 2019-09-16 14:35 | OP ---
Operative Note - Note: Operative Date: 09/16/19 Pre-Operative Diagnosis: ESRD on HD Operation: Creation AV fistula left arm Findings: Patent left cephalic vein with stenosis in proximal forearm treated with balloon angioplasty Post-Operative Diagnosis: Same as Pre-op Surgeon: Grabiel Lentz Process Stripper: Evette Rose Anesthesiologist/SIDE PANEL PADDER: Peter Romero Anesthesia: Fractional Estimated Blood Loss (mls): 20
[2019-09-16] MEDS ORDERED: ACETAMINOPHEN WITH CODEINE 300MG/30MG TABLET PO PRN (15:24)
[2019-09-16] MEDS ORDERED: SODIUM CHLORIDE 250 ML IV PRN (15:24)
--- NOTE | 2019-09-16 15:27 | SURG ---
Surgery Tobacco Checkout Clerk Note Tobacco Checkout Clerk: Evette Rose PA-C Date of Service: 09/16/19 Diagnosis: ESRD on HD Procedure: Creation AV fistula left arm I was present for the entirety of the operative procedure. For further detail, please refer to operative report. Visit type - Case Type Case Type: ED Admission - Emergency Emergency Visit: No - New patient This patient is new to me today: No
[2019-09-16] MEDS ORDERED: INSULIN (NOVOLOG) ASPART 100 UNITS/ML 10ML VIAL ONE (21:16)
[2019-09-16] MEDS: ATORVASTATIN CA 40 MG TABLET (FP) PO SCH (21:25)
[2019-09-16] MEDS: LABETALOL HCL 200 MG TABLET (FP) PO SCH (21:25)
[2019-09-17] MEDS ORDERED: LEVOTHYROXINE NA 25 MCG TABLET (FP) ONE (06:15)
[2019-09-17] MEDS ORDERED: LEVOTHYROXINE NA 200 MCG TABLET ONE (06:15)
[2019-09-17] MEDS: LABETALOL HCL 200 MG TABLET (FP) PO SCH ×3 (06:42→22:27)
[2019-09-17] MEDS: LEVOTHYROXINE 200 MCG, LEVOTHYROXINE 25 MCG PO SCH (06:42)
[2019-09-17] MEDS: INSULIN SLIDING SCALE (NOVOLOG) 1 VIAL SQ SCH ×4 (06:42→22:14)
--- NOTE | 2019-09-17 07:48 | PN ---
Progress Note (short form) - Note Progress Note: VASCULAR SURGERY POD #1 s/p LUE AVF Alert. C/o mild incisional tenderness. Denies numbness/tingling to left hand. Afeb. AVSS Gen: nad LUE: palpable thrill. cap refill < 3 sec. hand warm Problem List - Problems (1) ESRD (end stage renal disease) on dialysis Assessment/Plan: Cont HD via PC prn Dressing changed on rounds No further surgical intervention Cont care as per primary team Patient to f/u as outlined in DC PLAN tab. On behalf of Dr. Lentz, thank you for the opportunity to participate in your patient's care. Code(s): N18.6 - END STAGE RENAL DISEASE; Z99.2 - DEPENDENCE ON RENAL DIALYSIS (2) COPD (chronic obstructive pulmonary disease) Code(s): J44.9 - CHRONIC OBSTRUCTIVE PULMONARY DISEASE, UNSPECIFIED (3) Diabetes Code(s): E11.9 - TYPE 2 DIABETES MELLITUS WITHOUT COMPLICATIONS (4) HTN (hypertension) Code(s): I10 - ESSENTIAL (PRIMARY) HYPERTENSION
[2019-09-17 08:20] LABS: BASO % 0.3 % (0-2.0); HEMATOCRIT 24.5 % (32.4-45.2); HEMOGLOBIN 8.4 GM/dL (10.7-15.3); LYMPH % 11.8 % (8-40); MCH 30.5 pg (25.7-33.7); MCHC 34.1 g/dl (32.0-36.0); MEAN CELL VOLUME 89.5 fl (80-96); MEAN PLT VOLUME 8.8 fl (7.5-11.1); MONO % 3.8 % (3.8-10.2); NEUT % 84.1 % (42.8-82.8); PLATELET COUNT 183 K/MM3 (134-434); RBC 2.74 M/mm3 (3.60-5.2); RDW 15.8 % (11.6-15.6); WHITE BLOOD COUNT 6.7 K/mm3 (4.0-10.0)
--- NOTE | 2019-09-17 08:24 | PN ---
Progress Note (short form) - Note Progress Note: Anesthesia postop note 54 y/o F s/p GA for av fistula POD#1, vss, alert and awake, orientedx2, no complaints. No anesthesia complications.
[2019-09-17 08:27] LABS: ALBUMIN 2.6 g/dl (3.4-5.0); BILIRUBIN,TOTAL 0.5 mg/dL (0.2-1); BLOOD UREA NITROGEN 22.3 mg/dL (7-18); CALCIUM 8.3 mg/dL (8.5-10.1); CREATININE 5.7 mg/dL (0.55-1.3); MAGNESIUM 1.7 mg/dL (1.8-2.4); POTASSIUM 3.9 mmol/L (3.5-5.1)
[2019-09-17] MEDS ORDERED: SODIUM CHLORIDE 250 ML IV PRN (08:48)
--- NOTE | 2019-09-17 09:57 | PN ---
Progress Note (short form) - Note Progress Note: 54 year old female history of HTN, HLD, DM COPD, Anemia thyroid cancer. Patient came with ams and had CHF, renal failure , anemia . James was intubated, she was hypothermic. She is on sedation . Ganesh has ct head and there is mild dilation of ventricles. patient has fistula made yesterday on left arm. she denies any new complain. NEUROLOGICAL EXAMINATION neck is supple , hypertensive, alert oriented x 3( knows her name where she is , is able to tell me today is september 06 but mistake on year) pupils reactive no face asymmetry moving all ext , generalized proximal weakness rest of neuro exam is not possible ct head reviewed and mild ventricular dilatation and this could be due to intercurrent illness Assessment/Plan2 year old female history of HTN, HLD, DM COPD, Anemia thyroid cancer. Patient came with ams and had CHF, renal failure , anemia . she had left arm fistula made yesterday, Plan: supportive care and follow up outpatient no need for further work up at this time. Thanking you so much Hill Hayden MD
[2019-09-17] MEDS ORDERED: PT OWN MED DRAWER 7, Y5N ONE (10:06)
[2019-09-17] MEDS: PARoxetine HCL 20 MG TABLET PO SCH (10:21)
[2019-09-17] MEDS: amLODIPine BESYLATE 10 MG TABLET (FP) PO SCH (10:21)
[2019-09-17] MEDS: predniSONE 5 MG TABLET (UD) PO SCH (10:22)
[2019-09-17] MEDS: ACETAMINOPHEN 325 MG TABLET (FP) PO PRN ×3 (10:33→22:26)
--- NOTE | 2019-09-17 10:43 | PN ---
Physical Exam: SUBJECTIVE: Patient seen and examined at the bedside. having chills with a fever 100.7 today, not feeling well. wrapped in blankets. denies pain. OBJECTIVE: Patient is a 54 year old female with a significant past medical history of hypertension, hyperlipidemia, diabetes, COPD, anemia, thyroid cancer 6 years ago (no prior admission to [facility]). Patient brought into the ED for altered mental status, acute shortness of breath, metabolic acidosis. She was found to have an elevated TSH, low t4 and hypothermic ([id number] mariana hugger). Urine was + for ecstasy. on admission had renal failure with a creat of 7.7, bun of 65,mag 1.6, elevated ast/alt. she was admitted to the ICU and since 09/04, is being monitored on med surg unit. -------- s/p creation of av fistula placement left arm on 09/16/19, +bruit appears fatigued, but awake and alert will send for blood cultures, lactic acid and chest xray id re consulted Period Temp Pulse Resp BP Sys/Amos Pulse Ox Last 24 Hr 98.1 F-100.7 F 60-82 14-24 129-156/54-82 95-100 GENERAL: The patient is awake, alert, calm, having shaking chills HEAD: Normal with no signs of trauma. EYES: PERRL, extraocular movements intact, sclera anicteric, conjunctiva clear. No ptosis. ENT: Ears normal, nares patent, oropharynx clear without exudates, moist mucous membranes. NECK: Trachea midline, full range of motion, supple. LUNGS: Breath sounds equal, diminished, dry cough HEART: Regular rate and rhythm ABDOMEN: Soft, nontender, nondistended, normoactive bowel sounds, no guarding, no rebound, no hepatosplenomegaly, no masses. EXTREMITIES: lower ext trace edema NEUROLOGICAL: awake, alert, cooperative, anxious at times. PSYCH: Normal mood, normal affect. SKIN: Warm, dry, normal turgor, no rashes or lesions noted Laboratory Results - last 24 hr 09/16/19 09/16/19 09/16/19 11:38 15:33 17:46 WBC RBC Hgb Hct MCV MCH MCHC RDW Plt Count MPV Absolute Neuts (auto) Neutrophils % Lymphocytes % Monocytes % Eosinophils % Basophils % Nucleated RBC % Sodium Potassium Chloride Carbon Dioxide Anion Gap BUN Creatinine Est GFR (CKD-EPI)AfAm Est GFR (CKD-EPI)NonAf POC Glucometer 81 81 111 Random Glucose Calcium Magnesium Total Bilirubin AST ALT Alkaline Phosphatase Total Protein Albumin 09/16/19 09/17/19 09/17/19 21:24 06:40 06:45 WBC 6.7 RBC 2.74 L Hgb 8.4 L Hct 24.5 L MCV 89.5 MCH 30.5 MCHC 34.1 RDW 15.8 H Plt Count 183 MPV 8.8 Absolute Neuts (auto) 5.6 Neutrophils % 84.1 H D Lymphocytes % 11.8 D Monocytes % 3.8 Eosinophils % 0.0 Basophils % 0.3 Nucleated RBC % 0 Sodium Potassium Chloride Carbon Dioxide Anion Gap BUN Creatinine Est GFR (CKD-EPI)AfAm Est GFR (CKD-EPI)NonAf POC Glucometer 103 105 Random Glucose Calcium Magnesium Total Bilirubin AST ALT Alkaline Phosphatase Total Protein Albumin 09/17/19 06:45 WBC RBC Hgb Hct MCV MCH MCHC RDW Plt Count MPV Absolute Neuts (auto) Neutrophils % Lymphocytes % Monocytes % Eosinophils % Basophils % Nucleated RBC % Sodium 137 Potassium 3.9 Chloride 103 Carbon Dioxide 26 Anion Gap 9 BUN 22.3 H Creatinine 5.7 H Est GFR (CKD-EPI)AfAm 9.15 Est GFR (CKD-EPI)NonAf 7.89 POC Glucometer Random Glucose 92 Calcium 8.3 L Magnesium 1.7 L Total Bilirubin 0.5 AST 31 ALT 29 Alkaline Phosphatase 364 H Total Protein 6.0 L Albumin 2.6 L Active Medications Generic Name Dose Route Start Last Admin Trade Name Freq PRN Reason Stop Dose Admin Acetaminophen 650 mg 09/16/19 15:24 09/17/19 10:33 Tylenol - PO 650 mg Q6H PRN Administration Fever Or Pain Acetaminophen/Codeine Phosphate 1 tab 09/16/19 15:24 Tylenol # 3 - PO Q4H PRN PAIN LEVEL 4 - 6 Amlodipine Besylate 10 mg 09/17/19 10:00 09/17/19 10:21 Norvasc - PO Not Given DAILY ZOE Atorvastatin Calcium 40 mg 09/16/19 22:00 09/16/19 21:25 Lipitor - PO 40 mg HS ZOE Administration Famotidine 20 mg 09/18/19 10:00 Pepcid - PO Q2D ZOE Sodium Chloride 250 mls @ 3,000 mls/hr 09/16/19 15:24 Normal Saline - IV PRN PRN Hypotension during Dialysis Sodium Chloride 250 mls @ 3,000 mls/hr 09/17/19 08:48 Normal Saline - IV 09/18/19 08:48 PRN PRN Hypotension during Dialysis Insulin Aspart 1 vial 09/16/19 16:30 09/17/19 06:42 Novolog Vial Sliding Scale - SQ Not Given ACHS [facility] Protocol Labetalol HCl 200 mg 09/16/19 22:00 09/17/19 06:42 Normodyne - PO 200 mg TID ZOE Administration Levothyroxine Sodium 200 mcg/ 225 mcg 09/17/19 07:00 09/17/19 06:42 Levothyroxine Sodium 25 mcg PO 225 mcg DAILY@0700 ZOE Administration Paroxetine HCl 40 mg 09/17/19 10:00 09/17/19 10:21 Paxil - PO 40 mg DAILY ZOE Administration Prednisone 5 mg 09/17/19 10:00 09/17/19 10:22 Deltasone - PO 09/18/19 10:05 5 mg DAILY ZOE Administration ASSESSMENT/PLAN: Problem List - Problems (1) Fever and chills Assessment/Plan: fever and chills today, re cultured one set of blood cultures peripheral, another set via shiley id re consulted, pt back on zosyn pending blood cultures lactic acid within normal limits chest xray pending Code(s): R50.9 - FEVER, UNSPECIFIED (2) AV fistula Assessment/Plan: POD #1: AV Fistula +bruit, thrill+ left arm precautions Code(s): I77.0 - ARTERIOVENOUS FISTULA, ACQUIRED (3) Acute metabolic encephalopathy Assessment/Plan: resolved. patient deemed safe to make her own medical decisions by psyche. Code(s): G93.41 - METABOLIC ENCEPHALOPATHY (4) Myxedema coma Assessment/Plan: mental status improved Novolog SS coverage being followed by computer systems information director On Prednisone 10mg QD, continue for one more day, then Prednisone 5mg for 3 days and then D/C on discharge as per endodrine- Pt go go home on LT4 225 repeat TFT in 2 weeks [facility] Code(s): E03.5 - MYXEDEMA COMA (5) Hypercapnic respiratory failure Assessment/Plan: Intubated on admission, extubated on 09/03/19, now room air Code(s): J96.92 - RESPIRATORY FAILURE, UNSPECIFIED WITH HYPERCAPNIA (6) SOB (shortness of breath) Assessment/Plan: s/p intubation, now on room air Code(s): R06.02 - SHORTNESS OF BREATH (7) Morbid obesity Assessment/Plan: outpatient follow up Code(s): E66.01 - MORBID (SEVERE) OBESITY DUE TO EXCESS CALORIES (8) AMS (altered mental status) Assessment/Plan: see acute metabolic encephalopathy Code(s): R41.82 - ALTERED MENTAL STATUS, UNSPECIFIED (9) Acute renal failure Assessment/Plan: dialysis per renal Code(s): N17.9 - ACUTE KIDNEY FAILURE, UNSPECIFIED (10) Metabolic acidosis Assessment/Plan: hydrocortisone taper for possible adrenal insufficiency Code(s): E87.2 - ACIDOSIS (11) Diabetes Assessment/Plan: [facility] ac/hs followed by computer systems information director Code(s): E11.9 - TYPE 2 DIABETES MELLITUS WITHOUT COMPLICATIONS (12) Hypothermia Assessment/Plan: ID following, completed meropenem blood cultures negative and urine cultures + with 50-[address] + sputum/lactose fermenting bacteria/yeast/serratia Code(s): T68.XXXA - HYPOTHERMIA, INITIAL ENCOUNTER (13) Anemia Assessment/Plan: received 1 PRBC since admission Hgb stable continue to monitor Code(s): D64.9 - ANEMIA, UNSPECIFIED Qualifiers: Other causes of anemia: chronic disease, other (14) HLD (hyperlipidemia) Code(s): E78.5 - HYPERLIPIDEMIA, UNSPECIFIED (15) DVT prophylaxis Assessment/Plan: on heparin tid Code(s): Z29.9 - ENCOUNTER FOR PROPHYLACTIC MEASURES, UNSPECIFIED Visit type - Emergency Visit Emergency Visit: Yes ED Registration Date: 08/25/19 Care time: The patient presented to the Emergency Department on the above date and was hospitalized for further evaluation of their emergent condition. - New Patient This patient is new to me today: No - Critical Care Critical Care patient: No - Discharge Referral Referred to [facility] Med [facility] No
--- NOTE | 2019-09-17 11:06 | PN ---
Progress Note (short form) - Note Progress Note: Resting in NAD. Denies CP or SOB. POD #1: AV Fistula No acute events overnight. Intake & Output 09/14/19 09/15/19 09/16/19 09/17/19 23:59 23:59 23:59 23:59 Intake Total 1260 1110 400 200 Output Total 10 Balance 1260 1110 390 200 Last Vital Signs Temp Pulse Resp BP Pulse Ox 100.7 F H 82 24 H 130/82 95 09/17/19 10:18 09/17/19 10:18 09/17/19 10:18 09/17/19 10:18 09/16/19 21:00 Active Medications Acetaminophen (Tylenol -) 650 mg PO Q6H PRN PRN Reason: Fever Or Pain Last Admin: 09/17/19 10:33 Dose: 650 mg Acetaminophen/Codeine Phosphate (Tylenol # 3 -) 1 tab PO Q4H PRN PRN Reason: PAIN LEVEL 4 - 6 Amlodipine Besylate (Norvasc -) 10 mg PO DAILY [facility] Last Admin: 09/17/19 10:21 Dose: Not Given Atorvastatin Calcium (Lipitor -) 40 mg PO HS [facility] Last Admin: 09/16/19 21:25 Dose: 40 mg Famotidine (Pepcid -) 20 mg PO Q2D [facility] Sodium Chloride (Normal Saline -) 250 mls @ 3,000 mls/hr IV PRN PRN PRN Reason: Hypotension during Dialysis Sodium Chloride (Normal Saline -) 250 mls @ 3,000 mls/hr IV PRN PRN PRN Reason: Hypotension during Dialysis Stop: 09/18/19 08:48 Insulin Aspart (Novolog Vial Sliding Scale -) 1 vial SQ ACHS [facility]; Protocol Last Admin: 09/17/19 06:42 Dose: Not Given Labetalol HCl (Normodyne -) 200 mg PO TID [facility] Last Admin: 09/17/19 06:42 Dose: 200 mg Levothyroxine Sodium 200 mcg/ (Levothyroxine Sodium 25 mcg) 225 mcg PO DAILY@ 0700 [facility] Last Admin: 09/17/19 06:42 Dose: 225 mcg Paroxetine HCl (Paxil -) 40 mg PO DAILY [facility] Last Admin: 09/17/19 10:21 Dose: 40 mg Prednisone (Deltasone -) 5 mg PO DAILY [facility] Stop: 09/18/19 10:05 Last Admin: 09/17/19 10:22 Dose: 5 mg Gen: NAD Heart: RRR Lung: decreased breath sounds at the bases Abd: soft, nontender Ext: + edema improving Laboratory Results - last 24 hr 09/16/19 09/16/19 09/16/19 11:38 15:33 17:46 WBC RBC Hgb Hct MCV MCH MCHC RDW Plt Count MPV Absolute Neuts (auto) Neutrophils % Lymphocytes % Monocytes % Eosinophils % Basophils % Nucleated RBC % Sodium Potassium Chloride Carbon Dioxide Anion Gap BUN Creatinine Est GFR (CKD-EPI)AfAm Est GFR (CKD-EPI)NonAf POC Glucometer 81 81 111 Random Glucose Calcium Magnesium Total Bilirubin AST ALT Alkaline Phosphatase Total Protein Albumin 09/16/19 09/17/19 09/17/19 21:24 06:40 06:45 WBC 6.7 RBC 2.74 L Hgb 8.4 L Hct 24.5 L MCV 89.5 MCH 30.5 MCHC 34.1 RDW 15.8 H Plt Count 183 MPV 8.8 Absolute Neuts (auto) 5.6 Neutrophils % 84.1 H D Lymphocytes % 11.8 D Monocytes % 3.8 Eosinophils % 0.0 Basophils % 0.3 Nucleated RBC % 0 Sodium Potassium Chloride Carbon Dioxide Anion Gap BUN Creatinine Est GFR (CKD-EPI)AfAm Est GFR (CKD-EPI)NonAf POC Glucometer 103 105 Random Glucose Calcium Magnesium Total Bilirubin AST ALT Alkaline Phosphatase Total Protein Albumin 09/17/19 06:45 WBC RBC Hgb Hct MCV MCH MCHC RDW Plt Count MPV Absolute Neuts (auto) Neutrophils % Lymphocytes % Monocytes % Eosinophils % Basophils % Nucleated RBC % Sodium 137 Potassium 3.9 Chloride 103 Carbon Dioxide 26 Anion Gap 9 BUN 22.3 H Creatinine 5.7 H Est GFR (CKD-EPI)AfAm 9.15 Est GFR (CKD-EPI)NonAf 7.89 POC Glucometer Random Glucose 92 Calcium 8.3 L Magnesium 1.7 L Total Bilirubin 0.5 AST 31 ALT 29 Alkaline Phosphatase 364 H Total Protein 6.0 L Albumin 2.6 L ASSESSMENT AND PLAN: Acute Hypercapneic Respiratory Failure Myxedema Coma UTI Acute Kidney Injury requiring HD Volume Overload Pleural Effusions COPD DM Anemia - HD per renal - Prednisone & synthroid per Endocrine - O2 as needed - PO as tolerated - DVT/GI prophylaxis - DC planning Dr Alonso
--- NOTE | 2019-09-17 12:22 | OP ---
DATE OF OPERATION: 09/16/2019 SURGEON: Grabiel Lucero MD ROASTMASTER: DANICA Manrique PROCEDURE: Creation arteriovenous fistula, left arm. PREOPERATIVE DIAGNOSIS: Renal disease. POSTOPERATIVE DIAGNOSIS: Renal disease. ANESTHESIA: Fractional. ANESTHESIOLOGIST: Peter Romero CRNA OPERATIVE FINDINGS: The left cephalic vein was patent in the forearm with an area of narrowing in the upper forearm. This was treated with a balloon angioplasty using a Felix balloon with moravian of a patent vessel. OPERATIVE PROCEDURE: Following routine patient identification with site and side verification, intravenous sedation was established. The left arm was prepped with ChloraPrep. Time-out was performed, 1% lidocaine was infiltrated over the distal cephalic vein in the forearm. It was exposed through a longitudinal incision. The vein was ligated distally with 3-0 silk and incised. It was distended with heparin and Papaverine solution. A No. 5 feeding tube was passed proximally. Met resistance at the level of the upper forearm. A No. 8 feeding tube also met resistance at this level. A No. 3 Felix catheter was then passed proximally through the area, inflated, and withdrawn until it reached that site. Then the balloon was inflated several times and pulled down through the area. Feeding tubes could now be passed proximally without resistance. The vein was filled with heparin solution. The radial artery was then exposed through an adjacent incision in the forearm and secured with Vessel Loops. Side branches were ligated and divided. The artery was then occluded with the Vessel Loops. A longitudinal arteriotomy measuring approximately 6 mm was made. The vein was then freed and passed through a short subcutaneous tunnel to lie next to the artery. It was spatulated. The vein was anastomosed to the side of the artery with running suture of 6-0 Prolene. Prior to completion of the suture line, the artery was allowed to back bleed and flush, and the vein was flushed with heparin. Suture line was completed, and vessels were released. There was good flow through the anastomosis with a palpable thrill proximally in the vein. Bleeding from the suture line was controlled with Surgicel. When hemostasis was adequate, the wounds were closed with interrupted suture of 3-0 Vicryl on the subcutaneous tissues and running subcuticular sutures of 4-0 Biosyn on the skin. Sterile dressing was applied, and the patient was taken to the recovery room in stable condition. GRABIEL LUCERO M.D. [id number]
--- NOTE | 2019-09-17 12:50 | PN ---
Progress Note, Physician History of Present Illness: spiking fevers had fistula done still wiht permacath - Current Medication List Current Medications: Active Medications Acetaminophen (Tylenol -) 650 mg PO Q6H PRN PRN Reason: Fever Or Pain Last Admin: 09/17/19 10:33 Dose: 650 mg Acetaminophen/Codeine Phosphate (Tylenol # 3 -) 1 tab PO Q4H PRN PRN Reason: PAIN LEVEL 4 - 6 Amlodipine Besylate (Norvasc -) 10 mg PO DAILY REPLACED BY [facility] Last Admin: 09/17/19 10:21 Dose: Not Given Atorvastatin Calcium (Lipitor -) 40 mg PO HS REPLACED BY [facility] Last Admin: 09/16/19 21:25 Dose: 40 mg Famotidine (Pepcid -) 20 mg PO Q2D REPLACED BY [facility] Sodium Chloride (Normal Saline -) 250 mls @ 3,000 mls/hr IV PRN PRN PRN Reason: Hypotension during Dialysis Sodium Chloride (Normal Saline -) 250 mls @ 3,000 mls/hr IV PRN PRN PRN Reason: Hypotension during Dialysis Stop: 09/18/19 08:48 Insulin Aspart (Novolog Vial Sliding Scale -) 1 vial SQ ACHS REPLACED BY [facility]; Protocol Last Admin: 09/17/19 11:49 Dose: Not Given Labetalol HCl (Normodyne -) 200 mg PO TID REPLACED BY [facility] Last Admin: 09/17/19 06:42 Dose: 200 mg Levothyroxine Sodium 200 mcg/ (Levothyroxine Sodium 25 mcg) 225 mcg PO DAILY@ 0700 REPLACED BY [facility] Last Admin: 09/17/19 06:42 Dose: 225 mcg Paroxetine HCl (Paxil -) 40 mg PO DAILY REPLACED BY [facility] Last Admin: 09/17/19 10:21 Dose: 40 mg Prednisone (Deltasone -) 5 mg PO DAILY REPLACED BY [facility] Stop: 09/18/19 10:05 Last Admin: 09/17/19 10:22 Dose: 5 mg - Objective Vital Signs: Vital Signs Temperature 100.4 F H 09/17/19 12:05 Pulse Rate 80 09/17/19 12:40 Respiratory Rate 18 09/17/19 12:40 Blood Pressure 122/63 09/17/19 12:40 O2 Sat by Pulse Oximetry (%) 95 09/16/19 21:00 Constitutional: Yes: Calm, Mild Distress HENT: Yes: Other (rt sided permacath) Cardiovascular: Yes: S1, S2 Respiratory: Yes: Regular, CTA Bilaterally Musculoskeletal: Yes: WNL Extremities: Yes: WNL Neurological: Yes: Alert, Lethargy Psychiatric: Yes: Alert Labs: CBC, BMP 09/17/19 06:45 09/17/19 06:45 INR, PTT INR 0.99 (0.83-1.09) 09/05/19 13:45 Assessment/Plan Problem List - Problems (1) LUCY (acute kidney injury) Code(s): N17.9 - ACUTE KIDNEY FAILURE, UNSPECIFIED (2) AMS (altered mental status) Code(s): R41.82 - ALTERED MENTAL STATUS, UNSPECIFIED (3) Acute metabolic encephalopathy Code(s): G93.41 - METABOLIC ENCEPHALOPATHY (4) Acute respiratory failure Code(s): J96.00 - ACUTE RESPIRATORY FAILURE, UNSP W HYPOXIA OR HYPERCAPNIA (5) Anemia Code(s): D64.9 - ANEMIA, UNSPECIFIED (6) COPD (chronic obstructive pulmonary disease) Code(s): J44.9 - CHRONIC OBSTRUCTIVE PULMONARY DISEASE, UNSPECIFIED (7) Diabetes Code(s): E11.9 - TYPE 2 DIABETES MELLITUS WITHOUT COMPLICATIONS (8) HTN (hypertension) Code(s): I10 - ESSENTIAL (PRIMARY) HYPERTENSION (9) Hypercapnic respiratory failure Code(s): J96.92 - RESPIRATORY FAILURE, UNSPECIFIED WITH HYPERCAPNIA (10) Hypothermia Code(s): T68.XXXA - HYPOTHERMIA, INITIAL ENCOUNTER (11) Morbid obesity Code(s): E66.01 - MORBID (SEVERE) OBESITY DUE TO EXCESS CALORIES (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 - MYXEDEMA COMA (13) Thyroid cancer Code(s): C73 - MALIGNANT NEOPLASM OF THYROID GLAND Assessment/Plan Acute respiratory failure on MV/sedation Acute metabolic encephalopathy AMS Myxedema coma DM LUCY on CKD Obesity Hx of thyroid CA s/p thyroidectomy HTN HLD COPD Anemia vap plan patient spiking fevers all blood cx send cx from the port send will start patient on abx await for all the cx results
[2019-09-17] MEDS: PIPERACILLIN/TAZOB 2.25 GM 2.25 GM in DEXTROSE 5%-WATER - 50 ML IVPB SCH ×3 (14:00→18:14)
--- NOTE | 2019-09-17 15:05 | PN ---
Progress Note, Physician History of Present Illness: Pt seen and examined at bedside. She is tolerating HD. - Current Medication List Current Medications: Active Medications Acetaminophen (Tylenol -) 650 mg PO Q6H PRN PRN Reason: Fever Or Pain Last Admin: 09/17/19 10:33 Dose: 650 mg Acetaminophen/Codeine Phosphate (Tylenol # 3 -) 1 tab PO Q4H PRN PRN Reason: PAIN LEVEL 4 - 6 Amlodipine Besylate (Norvasc -) 10 mg PO DAILY [facility] Last Admin: 09/17/19 10:21 Dose: Not Given Atorvastatin Calcium (Lipitor -) 40 mg PO HS [facility] Last Admin: 09/16/19 21:25 Dose: 40 mg Famotidine (Pepcid -) 20 mg PO Q2D [facility] Sodium Chloride (Normal Saline -) 250 mls @ 3,000 mls/hr IV PRN PRN PRN Reason: Hypotension during Dialysis Sodium Chloride (Normal Saline -) 250 mls @ 3,000 mls/hr IV PRN PRN PRN Reason: Hypotension during Dialysis Stop: 09/18/19 08:48 Piperacillin Sod/Tazobactam (Sod 2.25 gm/ Dextrose) 50 mls @ 100 mls/hr IVPB Q8H-IV [facility]; Protocol Last Admin: 09/17/19 14:00 Dose: Not Given Insulin Aspart (Novolog Vial Sliding Scale -) 1 vial SQ ACHS [facility]; Protocol Last Admin: 09/17/19 11:49 Dose: Not Given Labetalol HCl (Normodyne -) 200 mg PO TID [facility] Last Admin: 09/17/19 14:32 Dose: Not Given Levothyroxine Sodium 200 mcg/ (Levothyroxine Sodium 25 mcg) 225 mcg PO DAILY@ 0700 [facility] Last Admin: 09/17/19 06:42 Dose: 225 mcg Paroxetine HCl (Paxil -) 40 mg PO DAILY [facility] Last Admin: 09/17/19 10:21 Dose: 40 mg Prednisone (Deltasone -) 5 mg PO DAILY [facility] Stop: 09/18/19 10:05 Last Admin: 09/17/19 10:22 Dose: 5 mg - Objective Vital Signs: Vital Signs Temperature 100.4 F H 09/17/19 12:05 Pulse Rate 74 09/17/19 14:40 Respiratory Rate 18 09/17/19 14:40 Blood Pressure 134/57 L 09/17/19 14:40 O2 Sat by Pulse Oximetry (%) 95 09/16/19 21:00 Constitutional: Yes: Calm Eyes: Yes: Conjunctiva Clear HENT: Yes: Atraumatic Neck: Yes: Supple Cardiovascular: Yes: S1, S2 Respiratory: Yes: CTA Bilaterally Gastrointestinal: Yes: Normal Bowel Sounds, Soft Genitourinary: Yes: WNL Musculoskeletal: Yes: WNL Extremities: Yes: Other (left arm fistula with thrill and bruit) Integumentary: Yes: Tattoos Neurological: Yes: Oriented Psychiatric: Yes: Oriented Labs: CBC, BMP 09/17/19 06:45 09/17/19 06:45 INR, PTT INR 0.99 (0.83-1.09) 09/05/19 13:45 Problem List - Problems (1) AMS (altered mental status) Code(s): R41.82 - ALTERED MENTAL STATUS, UNSPECIFIED (2) Acute metabolic encephalopathy Code(s): G93.41 - METABOLIC ENCEPHALOPATHY (3) Acute renal failure Code(s): N17.9 - ACUTE KIDNEY FAILURE, UNSPECIFIED (4) Diabetes Code(s): E11.9 - TYPE 2 DIABETES MELLITUS WITHOUT COMPLICATIONS (5) Hypercapnic respiratory failure Code(s): J96.92 - RESPIRATORY FAILURE, UNSPECIFIED WITH HYPERCAPNIA (6) Hypothermia Code(s): T68.XXXA - HYPOTHERMIA, INITIAL ENCOUNTER (7) Morbid obesity Code(s): E66.01 - MORBID (SEVERE) OBESITY DUE TO EXCESS CALORIES Assessment/Plan Current Medications Generic Name Dose Route Start Last Admin Trade Name Freq PRN Reason Stop Dose Admin Acetaminophen 650 mg 09/16/19 15:24 09/17/19 10:33 Tylenol - PO 650 mg Q6H PRN Administration Fever Or Pain Acetaminophen/Codeine Phosphate 1 tab 09/16/19 15:24 Tylenol # 3 - PO Q4H PRN PAIN LEVEL 4 - 6 Amlodipine Besylate 10 mg 09/17/19 10:00 09/17/19 10:21 Norvasc - PO Not Given DAILY [facility] Atorvastatin Calcium 40 mg 09/16/19 22:00 09/16/19 21:25 Lipitor - PO 40 mg HS [facility] Administration Famotidine 20 mg 09/18/19 10:00 Pepcid - PO Q2D [facility] Sodium Chloride 250 mls @ 3,000 mls/hr 09/16/19 15:24 Normal Saline - IV PRN PRN Hypotension during Dialysis Sodium Chloride 250 mls @ 3,000 mls/hr 09/17/19 08:48 Normal Saline - IV 09/18/19 08:48 PRN PRN Hypotension during Dialysis Piperacillin Sod/Tazobactam 50 mls @ 100 mls/hr 09/17/19 13:00 09/17/19 14:00 Sod 2.25 gm/ Dextrose IVPB Not Given Q8H-IV [facility] Protocol Insulin Aspart 1 vial 09/16/19 16:30 09/17/19 11:49 Novolog Vial Sliding Scale - SQ Not Given ACHS [facility] Protocol Labetalol HCl 200 mg 09/16/19 22:00 09/17/19 14:32 Normodyne - PO Not Given TID [facility] Levothyroxine Sodium 200 mcg/ 225 mcg 09/17/19 07:00 09/17/19 06:42 Levothyroxine Sodium 25 mcg PO 225 mcg DAILY@0700 [facility] Administration Paroxetine HCl 40 mg 09/17/19 10:00 09/17/19 10:21 Paxil - PO 40 mg DAILY [facility] Administration Prednisone 5 mg 09/17/19 10:00 09/17/19 10:22 Deltasone - PO 09/18/19 10:05 5 mg DAILY [facility] Administration Impression 1. LUCY 2. fluid overload 3. acute respiratory failure 4. hypothyroidism with tsh of 100 5. 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 urine tox pos for mdma 7. mild rhabdo 8. hepatitis B 9. ESRD Plan - HD today - pending placement - fistula with thrill and bruit - monitor urine output - will need GI follow up for hep B
[2019-09-17] MEDS ORDERED: DEXTROSE 5%-WATER - 50 ML IVPB ONE (16:11)
[2019-09-17] MEDS ORDERED: PIPERACILLIN/TAZOBACTAM 2.25 GM VIAL IVPB ONE (16:11)
[2019-09-17] MEDS: ATORVASTATIN CA 40 MG TABLET (FP) PO SCH (22:27)
[2019-09-18] MEDS ORDERED: DEXTROSE 5%-WATER - 50 ML IVPB ONE ×3 (02:03→18:15)
[2019-09-18] MEDS ORDERED: PIPERACILLIN/TAZOBACTAM 2.25 GM VIAL IVPB ONE ×3 (02:03→18:15)
[2019-09-18] MEDS: PIPERACILLIN/TAZOB 2.25 GM 2.25 GM in DEXTROSE 5%-WATER - 50 ML IVPB SCH ×3 (02:13→18:21)
[2019-09-18] MEDS ORDERED: LEVOTHYROXINE NA 25 MCG TABLET (FP) ONE (05:31)
[2019-09-18] MEDS ORDERED: LEVOTHYROXINE NA 200 MCG TABLET ONE (05:31)
[2019-09-18] MEDS: INSULIN SLIDING SCALE (NOVOLOG) 1 VIAL SQ SCH ×3 (06:44→17:30)
[2019-09-18] MEDS: LEVOTHYROXINE 200 MCG, LEVOTHYROXINE 25 MCG PO SCH (06:45)
[2019-09-18] MEDS: LABETALOL HCL 200 MG TABLET (FP) PO SCH ×3 (06:46→21:58)
--- NOTE | 2019-09-18 08:01 | PN ---
Progress Note (short form) - Note Progress Note: Resting in NAD. Denies CP or SOB. No acute events overnight. Intake & Output 09/15/19 09/16/19 09/17/19 09/18/19 23:59 23:59 23:59 23:59 Intake Total 1110 760 950 50 Output Total 10 1500 Balance 1110 750 -550 50 Last Vital Signs Temp Pulse Resp BP Pulse Ox 100.0 F H 71 20 149/75 90 L 09/18/19 06:00 09/18/19 06:00 09/18/19 06:00 09/18/19 06:00 09/17/19 21:00 Active Medications Acetaminophen (Tylenol -) 650 mg PO Q6H PRN PRN Reason: Fever Or Pain Last Admin: 09/17/19 22:26 Dose: 650 mg Acetaminophen/Codeine Phosphate (Tylenol # 3 -) 1 tab PO Q4H PRN PRN Reason: PAIN LEVEL 4 - 6 Amlodipine Besylate (Norvasc -) 10 mg PO DAILY [facility] Last Admin: 09/17/19 10:21 Dose: Not Given Atorvastatin Calcium (Lipitor -) 40 mg PO HS [facility] Last Admin: 09/17/19 22:27 Dose: 40 mg Famotidine (Pepcid -) 20 mg PO Q2D [facility] Sodium Chloride (Normal Saline -) 250 mls @ 3,000 mls/hr IV PRN PRN PRN Reason: Hypotension during Dialysis Sodium Chloride (Normal Saline -) 250 mls @ 3,000 mls/hr IV PRN PRN PRN Reason: Hypotension during Dialysis Stop: 09/18/19 08:48 Piperacillin Sod/Tazobactam (Sod 2.25 gm/ Dextrose) 50 mls @ 100 mls/hr IVPB Q8H-IV [facility]; Protocol Last Admin: 09/18/19 02:13 Dose: 100 mls/hr Insulin Aspart (Novolog Vial Sliding Scale -) 1 vial SQ ACHS [facility]; Protocol Last Admin: 09/18/19 06:44 Dose: Not Given Labetalol HCl (Normodyne -) 200 mg PO TID [facility] Last Admin: 09/18/19 06:46 Dose: 200 mg Levothyroxine Sodium 200 mcg/ (Levothyroxine Sodium 25 mcg) 225 mcg PO DAILY@ 0700 [facility] Last Admin: 01/08/20 06:45 Dose: 225 mcg Paroxetine HCl (Paxil -) 40 mg PO DAILY [facility] Last Admin: 09/17/19 10:21 Dose: 40 mg Prednisone (Deltasone -) 5 mg PO DAILY [facility] Stop: 09/18/19 10:05 Last Admin: 09/17/19 10:22 Dose: 5 mg Gen: NAD Heart: RRR Lung: decreased breath sounds at the bases Abd: soft, nontender Ext: + edema improving Laboratory Results - last 24 hr 09/17/19 09/17/19 09/17/19 06:45 06:45 11:28 WBC 6.7 RBC 2.74 L Hgb 8.4 L Hct 24.5 L MCV 89.5 MCH 30.5 MCHC 34.1 RDW 15.8 H Plt Count 183 MPV 8.8 Absolute Neuts (auto) 5.6 Neutrophils % 84.1 H D Lymphocytes % 11.8 D Monocytes % 3.8 Eosinophils % 0.0 Basophils % 0.3 Nucleated RBC % 0 Sodium 137 Potassium 3.9 Chloride 103 Carbon Dioxide 26 Anion Gap 9 BUN 22.3 H Creatinine 5.7 H Est GFR (CKD-EPI)AfAm 9.15 Est GFR (CKD-EPI)NonAf 7.89 POC Glucometer Random Glucose 92 Lactic Acid 0.8 Calcium 8.3 L Magnesium 1.7 L Total Bilirubin 0.5 AST 31 ALT 29 Alkaline Phosphatase 364 H Total Protein 6.0 L Albumin 2.6 L 09/17/19 09/17/19 09/17/19 11:48 17:26 22:11 WBC RBC Hgb Hct MCV MCH MCHC RDW Plt Count MPV Absolute Neuts (auto) Neutrophils % Lymphocytes % Monocytes % Eosinophils % Basophils % Nucleated RBC % Sodium Potassium Chloride Carbon Dioxide Anion Gap BUN Creatinine Est GFR (CKD-EPI)AfAm Est GFR (CKD-EPI)NonAf POC Glucometer 114 103 109 Random Glucose Lactic Acid Calcium Magnesium Total Bilirubin AST ALT Alkaline Phosphatase Total Protein Albumin 09/18/19 06:42 WBC RBC Hgb Hct MCV MCH MCHC RDW Plt Count MPV Absolute Neuts (auto) Neutrophils % Lymphocytes % Monocytes % Eosinophils % Basophils % Nucleated RBC % Sodium Potassium Chloride Carbon Dioxide Anion Gap BUN Creatinine Est GFR (CKD-EPI)AfAm Est GFR (CKD-EPI)NonAf POC Glucometer 102 Random Glucose Lactic Acid Calcium Magnesium Total Bilirubin AST ALT Alkaline Phosphatase Total Protein Albumin ASSESSMENT AND PLAN: Acute Hypercapneic Respiratory Failure Myxedema Coma UTI Acute Kidney Injury requiring HD Volume Overload Pleural Effusions COPD DM Anemia - HD per renal - Prednisone & synthroid per Endocrine - O2 as needed - PO as tolerated - DVT/GI prophylaxis - DC planning Dr Alonso
--- NOTE | 2019-09-18 09:00 | PN ---
Progress Note (short form) - Note Progress Note: 54 year old female history of HTN, HLD, DM COPD, Anemia thyroid cancer. Patient came with ams and had CHF, renal failure , anemia . James was intubated, she was hypothermic. She is on sedation . Ganesh has ct head and there is mild dilation of ventricles. patient has fistula made yesterday on left arm. she denies any new complain. waiting for placement NEUROLOGICAL EXAMINATION neck is supple , hypertensive, alert oriented x 3( knows her name where she is , is able to tell me today is september 06 but mistake on year) pupils reactive no face asymmetry moving all ext , generalized proximal weakness rest of neuro exam is not possible ct head reviewed and mild ventricular dilatation and this could be due to intercurrent illness Assessment/Plan4 year old female history of HTN, HLD, DM COPD, Anemia thyroid cancer. Patient came with ams and had CHF, renal failure , anemia . she had left arm fistula made yesterday, Plan: supportive care and follow up outpatient no need for further work up at this time. waiting for placement Thanking you so much Hill Hayden MD
[2019-09-18] MEDS ORDERED: PT OWN MED DRAWER 7, Y5N ONE (09:31)
[2019-09-18 09:46] LABS: BASO % 0.4 % (0-2.0); HEMATOCRIT 24.1 % (32.4-45.2); HEMOGLOBIN 8.1 GM/dL (10.7-15.3); LYMPH % 22.5 % (8-40); MCH 30.5 pg (25.7-33.7); MCHC 33.6 g/dl (32.0-36.0); MEAN CELL VOLUME 90.7 fl (80-96); MEAN PLT VOLUME 8.4 fl (7.5-11.1); MONO % 7.9 % (3.8-10.2); NEUT % 69.2 % (42.8-82.8); PLATELET COUNT 147 K/MM3 (134-434); RBC 2.66 M/mm3 (3.60-5.2); RDW 15.7 % (11.6-15.6); WHITE BLOOD COUNT 5.6 K/mm3 (4.0-10.0)
[2019-09-18] MEDS: PARoxetine HCL 20 MG TABLET PO SCH (09:56)
[2019-09-18] MEDS: FAMOTIDINE 20 MG TABLET PO SCH (09:56)
[2019-09-18] MEDS: amLODIPine BESYLATE 10 MG TABLET (FP) PO SCH (09:56)
[2019-09-18] MEDS: predniSONE 5 MG TABLET (UD) PO SCH (09:56)
[2019-09-18 10:14] LABS: ALBUMIN 2.5 g/dl (3.4-5.0); BILIRUBIN,TOTAL 0.4 mg/dL (0.2-1); BLOOD UREA NITROGEN 12.3 mg/dL (7-18); CALCIUM 7.7 mg/dL (8.5-10.1); CREATININE 3.9 mg/dL (0.55-1.3); MAGNESIUM 1.6 mg/dL (1.8-2.4); POTASSIUM 3.7 mmol/L (3.5-5.1)
--- NOTE | 2019-09-18 12:36 | PN ---
Progress Note, Physician History of Present Illness: looks much better than yesterday still spiking fevers - Current Medication List Current Medications: Active Medications Acetaminophen (Tylenol -) 650 mg PO Q6H PRN PRN Reason: Fever Or Pain Last Admin: 09/17/19 22:26 Dose: 650 mg Acetaminophen/Codeine Phosphate (Tylenol # 3 -) 1 tab PO Q4H PRN PRN Reason: PAIN LEVEL 4 - 6 Amlodipine Besylate (Norvasc -) 10 mg PO DAILY [facility] Last Admin: 09/18/19 09:56 Dose: 10 mg Atorvastatin Calcium (Lipitor -) 40 mg PO HS [facility] Last Admin: 09/17/19 22:27 Dose: 40 mg Famotidine (Pepcid -) 20 mg PO Q2D [facility] Last Admin: 09/18/19 09:56 Dose: 20 mg Sodium Chloride (Normal Saline -) 250 mls @ 3,000 mls/hr IV PRN PRN PRN Reason: Hypotension during Dialysis Sodium Chloride (Normal Saline -) 250 mls @ 3,000 mls/hr IV PRN PRN PRN Reason: Hypotension during Dialysis Stop: 09/18/19 08:48 Piperacillin Sod/Tazobactam (Sod 2.25 gm/ Dextrose) 50 mls @ 100 mls/hr IVPB Q8H-IV [facility]; Protocol Last Admin: 09/18/19 09:57 Dose: 100 mls/hr Insulin Aspart (Novolog Vial Sliding Scale -) 1 vial SQ ACHS [facility]; Protocol Last Admin: 09/18/19 11:28 Dose: Not Given Labetalol HCl (Normodyne -) 200 mg PO TID [facility] Last Admin: 09/18/19 06:46 Dose: 200 mg Levothyroxine Sodium 200 mcg/ (Levothyroxine Sodium 25 mcg) 225 mcg PO DAILY@ 0700 [facility] Last Admin: 09/18/19 06:45 Dose: 225 mcg Paroxetine HCl (Paxil -) 40 mg PO DAILY [facility] Last Admin: 09/18/19 09:56 Dose: 40 mg - Objective Vital Signs: Vital Signs Temperature 99.9 F H 09/18/19 09:53 Pulse Rate 69 09/18/19 09:53 Respiratory Rate 24 H 09/18/19 09:53 Blood Pressure 130/51 L 09/18/19 09:53 O2 Sat by Pulse Oximetry (%) 90 L 09/17/19 21:00 Constitutional: Yes: No Distress, Calm Cardiovascular: Yes: S1, S2 Respiratory: Yes: Regular, CTA Bilaterally Gastrointestinal: Yes: Normal Bowel Sounds, Soft Musculoskeletal: Yes: WNL Extremities: Yes: WNL Neurological: Yes: Alert, Oriented Psychiatric: Yes: Alert, Oriented Labs: CBC, BMP 09/18/19 09:28 09/18/19 09:28 INR, PTT INR 0.99 (0.83-1.09) 09/05/19 13:45 Assessment/Plan Problem List - Problems (1) LUCY (acute kidney injury) Code(s): N17.9 - ACUTE KIDNEY FAILURE, UNSPECIFIED (2) AMS (altered mental status) Code(s): R41.82 - ALTERED MENTAL STATUS, UNSPECIFIED (3) Acute metabolic encephalopathy Code(s): G93.41 - METABOLIC ENCEPHALOPATHY (4) Acute respiratory failure Code(s): J96.00 - ACUTE RESPIRATORY FAILURE, UNSP W HYPOXIA OR HYPERCAPNIA (5) Anemia Code(s): D64.9 - ANEMIA, UNSPECIFIED (6) COPD (chronic obstructive pulmonary disease) Code(s): J44.9 - CHRONIC OBSTRUCTIVE PULMONARY DISEASE, UNSPECIFIED (7) Diabetes Code(s): E11.9 - TYPE 2 DIABETES MELLITUS WITHOUT COMPLICATIONS (8) HTN (hypertension) Code(s): I10 - ESSENTIAL (PRIMARY) HYPERTENSION (9) Hypercapnic respiratory failure Code(s): J96.92 - RESPIRATORY FAILURE, UNSPECIFIED WITH HYPERCAPNIA (10) Hypothermia Code(s): T68.XXXA - HYPOTHERMIA, INITIAL ENCOUNTER (11) Morbid obesity Code(s): E66.01 - MORBID (SEVERE) OBESITY DUE TO EXCESS CALORIES (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 - MYXEDEMA COMA (13) Thyroid cancer Code(s): C73 - MALIGNANT NEOPLASM OF THYROID GLAND Assessment/Plan Acute respiratory failure on MV/sedation Acute metabolic encephalopathy AMS Myxedema coma DM LUCY on CKD Obesity Hx of thyroid CA s/p thyroidectomy HTN HLD COPD Anemia vap plan patient spiking fevers await for cx reports rest as per the team
--- NOTE | 2019-09-18 12:53 | PN ---
Physical Exam: SUBJECTIVE: Patient seen and examined at the bedside. in no acute distress, feels well. talking on the phone and asking to go home. denies shortness of breath or chest pain. OBJECTIVE: Patient is a 54 year old female with a significant past medical history of hypertension, hyperlipidemia, diabetes, COPD, anemia, thyroid cancer 6 years ago (no prior admission to [facility]). Patient brought into the ED for altered mental status, acute shortness of breath, metabolic acidosis. She was found to have an elevated TSH, low t4 and hypothermic (96f-97-on mariana hugger). Urine was + for ecstasy. on admission had renal failure with a creat of 7.7, bun of 65,mag 1.6, elevated ast/alt. she was admitted to the ICU and since 09/04, is being monitored on med surg unit. She is pending insurance verification for start of outpatient dialysis. She developed a fever on 2019 and blood cultures have been repeated. She has been started on Zosyn pending blood cultures. imaging: chest xray 09/17/2019: congestive changes and left infiltrate, fluid/atelectasis at left base. Vital Signs Period Temp Pulse Resp BP Sys/Amos Pulse Ox Last 24 Hr 99.9 F-101.3 F 69-89 18-24 117-186/51-90 90 GENERAL: The patient is awake, alert, calm, feels better than yesterday, speaking on phone w/o conversational dyspnea HEAD: Normal with no signs of trauma. EYES: PERRL, extraocular movements intact, sclera anicteric, conjunctiva clear. No ptosis. ENT: Ears normal, nares patent, oropharynx clear without exudates, moist mucous membranes. NECK: Trachea midline, full range of motion, supple. LUNGS: Breath sounds equal, diminished, dry cough HEART: Regular rate and rhythm ABDOMEN: Soft, nontender, nondistended, normoactive bowel sounds, no guarding, no rebound, no hepatosplenomegaly, no masses. EXTREMITIES: lower ext trace edema NEUROLOGICAL: awake, alert, cooperative, anxious at times. PSYCH: Normal mood, normal affect. SKIN: Warm, dry, normal turgor, no rashes or lesions noted Laboratory Results - last 24 hr 09/17/19 09/17/19 09/18/19 17:26 22:11 06:42 WBC RBC Hgb Hct MCV MCH MCHC RDW Plt Count MPV Absolute Neuts (auto) Neutrophils % Lymphocytes % Monocytes % Eosinophils % Basophils % Nucleated RBC % Sodium Potassium Chloride Carbon Dioxide Anion Gap BUN Creatinine Est GFR (CKD-EPI)AfAm Est GFR (CKD-EPI)NonAf POC Glucometer 103 109 102 Random Glucose Calcium Magnesium Total Bilirubin AST ALT Alkaline Phosphatase Total Protein Albumin 09/18/19 09/18/19 09/18/19 09:28 09:28 11:27 WBC 5.6 RBC 2.66 L Hgb 8.1 L Hct 24.1 L MCV 90.7 MCH 30.5 MCHC 33.6 RDW 15.7 H Plt Count 147 MPV 8.4 Absolute Neuts (auto) 3.9 Neutrophils % 69.2 Lymphocytes % 22.5 D Monocytes % 7.9 D Eosinophils % 0.0 Basophils % 0.4 Nucleated RBC % 0 Sodium 139 Potassium 3.7 Chloride 103 Carbon Dioxide 32 Anion Gap 4 L BUN 12.3 Creatinine 3.9 H Est GFR (CKD-EPI)AfAm 14.47 Est GFR (CKD-EPI)NonAf 12.49 POC Glucometer 101 Random Glucose 104 Calcium 7.7 L Magnesium 1.6 L Total Bilirubin 0.4 AST 34 ALT 29 Alkaline Phosphatase 327 H Total Protein 6.0 L Albumin 2.5 L Active Medications Generic Name Dose Route Start Last Admin Trade Name Freq PRN Reason Stop Dose Admin Acetaminophen 650 mg 09/16/19 15:24 09/17/19 22:26 Tylenol - PO 650 mg Q6H PRN Administration Fever Or Pain Acetaminophen/Codeine Phosphate 1 tab 09/16/19 15:24 Tylenol # 3 - PO Q4H PRN PAIN LEVEL 4 - 6 Amlodipine Besylate 10 mg 09/17/19 10:00 09/18/19 09:56 Norvasc - PO 10 mg DAILY [facility] Administration Atorvastatin Calcium 40 mg 09/16/19 22:00 09/17/19 22:27 Lipitor - PO 40 mg HS ZOE Administration Famotidine 20 mg 09/18/19 10:00 09/18/19 09:56 Pepcid - PO 20 mg Q2D [facility]OE Administration Sodium Chloride 250 mls @ 3,000 mls/hr 09/16/19 15:24 Normal Saline - IV PRN PRN Hypotension during Dialysis Sodium Chloride 250 mls @ 3,000 mls/hr 09/17/19 08:48 Normal Saline - IV 09/18/19 08:48 PRN PRN Hypotension during Dialysis Piperacillin Sod/Tazobactam 50 mls @ 100 mls/hr 09/17/19 13:00 09/18/19 09:57 Sod 2.25 gm/ Dextrose IVPB 100 mls/hr Q8H-IV [facility] Administration Protocol Insulin Aspart 1 vial 09/16/19 16:30 09/18/19 11:28 Novolog Vial Sliding Scale - SQ Not Given ACHS [facility] Protocol Labetalol HCl 200 mg 09/16/19 22:00 09/18/19 06:46 Normodyne - PO 200 mg TID [facility] Administration Levothyroxine Sodium 200 mcg/ 225 mcg 09/17/19 07:00 09/18/19 06:45 Levothyroxine Sodium 25 mcg PO 225 mcg DAILY@0700 [facility] Administration Paroxetine HCl 40 mg 09/17/19 10:00 09/18/19 09:56 Paxil - PO 40 mg DAILY [facility] Administration ASSESSMENT/PLAN: Problem List - Problems (1) Fever and chills Assessment/Plan: tmax 101F overnight. blood cultures pending. one set of blood cultures peripheral, another set via shiley pending id re consulted, pt back on zosyn pending blood cultures lactic acid within normal limits chest xray with congestion and left base infiltrate, fluid/atelectasis at left base tolerating room air currently, stable saturations but desats and has to have oxygen re applied. will monitor add incentive spriometer Code(s): R50.9 - FEVER, UNSPECIFIED (2) AV fistula Assessment/Plan: POD #2: AV Fistula +bruit, thrill+ left arm precautions Code(s): I77.0 - ARTERIOVENOUS FISTULA, ACQUIRED (3) Acute metabolic encephalopathy Assessment/Plan: resolved. patient deemed safe to make her own medical decisions by psyche. Code(s): G93.41 - METABOLIC ENCEPHALOPATHY (4) Myxedema coma Assessment/Plan: mental status improved Novolog SS coverage being followed by slasher tender On Prednisone 10mg QD, continue for one more day, then Prednisone 5mg for 3 days and then D/C on discharge as per endodrine- Pt go go home on LT4 225 repeat TFT in 2 weeks BGM daily as she has been having bgms <150 Code(s): E03.5 - MYXEDEMA COMA (5) Hypercapnic respiratory failure Assessment/Plan: Intubated on admission, extubated on 09/03/19, now room air with prn oxygen Code(s): J96.92 - RESPIRATORY FAILURE, UNSPECIFIED WITH HYPERCAPNIA (6) SOB (shortness of breath) Assessment/Plan: s/p intubation, on 2 liters nc Code(s): R06.02 - SHORTNESS OF BREATH (7) Morbid obesity Assessment/Plan: outpatient follow up as outpatient, dietary following. Code(s): E66.01 - MORBID (SEVERE) OBESITY DUE TO EXCESS CALORIES (8) AMS (altered mental status) Assessment/Plan: see acute metabolic encephalopathy Code(s): R41.82 - ALTERED MENTAL STATUS, UNSPECIFIED (9) Acute renal failure Assessment/Plan: dialysis per renal via shiley av fistula to be used when cleared by vascular Code(s): N17.9 - ACUTE KIDNEY FAILURE, UNSPECIFIED (10) Metabolic acidosis Assessment/Plan: on prednisone taper for possible adrenal insufficiency Code(s): E87.2 - ACIDOSIS (11) Diabetes Assessment/Plan: bgms ac/hs followed by slasher tender Code(s): E11.9 - TYPE 2 DIABETES MELLITUS WITHOUT COMPLICATIONS (12) Hypothermia Assessment/Plan: resolved Code(s): T68.XXXA - HYPOTHERMIA, INITIAL ENCOUNTER (13) Anemia Assessment/Plan: received 1 PRBC since admission Hgb stable continue to monitor Code(s): D64.9 - ANEMIA, UNSPECIFIED Qualifiers: Other causes of anemia: chronic disease, other (14) HLD (hyperlipidemia) Code(s): E78.5 - HYPERLIPIDEMIA, UNSPECIFIED (15) Poor appetite Assessment/Plan: continues to have poor PO intake add nepro daily started on multivitamin Code(s): R63.0 - ANOREXIA (16) DVT prophylaxis Assessment/Plan: on heparin tid Code(s): Z29.9 - ENCOUNTER FOR PROPHYLACTIC MEASURES, UNSPECIFIED Visit type - Emergency Visit Emergency Visit: Yes ED Registration Date: 08/25/19 Care time: The patient presented to the Emergency Department on the above date and was hospitalized for further evaluation of their emergent condition. - New Patient This patient is new to me today: No - Critical Care Critical Care patient: No - Discharge Referral Referred to [facility] No
[2019-09-18] MEDS ORDERED: SODIUM CHLORIDE 250 ML IV PRN (13:09)
--- NOTE | 2019-09-18 13:09 | PN ---
Progress Note, Physician History of Present Illness: Pt seen and examined at bedside. SHe is awake and appears comfortable. - Current Medication List Current Medications: Active Medications Acetaminophen (Tylenol -) 650 mg PO Q6H PRN PRN Reason: Fever Or Pain Last Admin: 09/17/19 22:26 Dose: 650 mg Acetaminophen/Codeine Phosphate (Tylenol # 3 -) 1 tab PO Q4H PRN PRN Reason: PAIN LEVEL 4 - 6 Amlodipine Besylate (Norvasc -) 10 mg PO DAILY [facility] Last Admin: 09/18/19 09:56 Dose: 10 mg Atorvastatin Calcium (Lipitor -) 40 mg PO HS [facility] Last Admin: 09/17/19 22:27 Dose: 40 mg Famotidine (Pepcid -) 20 mg PO Q2D [facility] Last Admin: 09/18/19 09:56 Dose: 20 mg Sodium Chloride (Normal Saline -) 250 mls @ 3,000 mls/hr IV PRN PRN PRN Reason: Hypotension during Dialysis Sodium Chloride (Normal Saline -) 250 mls @ 3,000 mls/hr IV PRN PRN PRN Reason: Hypotension during Dialysis Stop: 09/18/19 08:48 Piperacillin Sod/Tazobactam (Sod 2.25 gm/ Dextrose) 50 mls @ 100 mls/hr IVPB Q8H-IV [facility]; Protocol Last Admin: 09/18/19 09:57 Dose: 100 mls/hr Insulin Aspart (Novolog Vial Sliding Scale -) 1 vial SQ ACHS [facility]; Protocol Last Admin: 09/18/19 11:28 Dose: Not Given Labetalol HCl (Normodyne -) 200 mg PO TID [facility] Last Admin: 09/18/19 06:46 Dose: 200 mg Levothyroxine Sodium 200 mcg/ (Levothyroxine Sodium 25 mcg) 225 mcg PO DAILY@ 0700 [facility] Last Admin: 09/18/19 06:45 Dose: 225 mcg Paroxetine HCl (Paxil -) 40 mg PO DAILY [facility] Last Admin: 09/18/19 09:56 Dose: 40 mg - Objective Vital Signs: Vital Signs Temperature 99.9 F H 09/18/19 09:53 Pulse Rate 69 09/18/19 09:53 Respiratory Rate 24 H 09/18/19 09:53 Blood Pressure 130/51 L 09/18/19 09:53 O2 Sat by Pulse Oximetry (%) 90 L 09/17/19 21:00 Constitutional: Yes: Calm Eyes: Yes: Conjunctiva Clear HENT: Yes: Atraumatic Neck: Yes: Supple Cardiovascular: Yes: S1, S2 Respiratory: Yes: CTA Bilaterally Gastrointestinal: Yes: Soft, Abdomen, Obese Genitourinary: Yes: WNL Musculoskeletal: Yes: WNL Edema: No Neurological: Yes: Oriented Psychiatric: Yes: Oriented Labs: CBC, BMP 09/18/19 09:28 09/18/19 09:28 INR, PTT INR 0.99 (0.83-1.09) 09/05/19 13:45 Problem List - Problems (1) AMS (altered mental status) Code(s): R41.82 - ALTERED MENTAL STATUS, UNSPECIFIED (2) Acute metabolic encephalopathy Code(s): G93.41 - METABOLIC ENCEPHALOPATHY (3) Acute renal failure Code(s): N17.9 - ACUTE KIDNEY FAILURE, UNSPECIFIED (4) Diabetes Code(s): E11.9 - TYPE 2 DIABETES MELLITUS WITHOUT COMPLICATIONS (5) Hypercapnic respiratory failure Code(s): J96.92 - RESPIRATORY FAILURE, UNSPECIFIED WITH HYPERCAPNIA (6) Hypothermia Code(s): T68.XXXA - HYPOTHERMIA, INITIAL ENCOUNTER (7) Morbid obesity Code(s): E66.01 - MORBID (SEVERE) OBESITY DUE TO EXCESS CALORIES Assessment/Plan Current Medications Generic Name Dose Route Start Last Admin Trade Name Freq PRN Reason Stop Dose Admin Acetaminophen 650 mg 09/16/19 15:24 09/17/19 22:26 Tylenol - PO 650 mg Q6H PRN Administration Fever Or Pain Acetaminophen/Codeine Phosphate 1 tab 09/16/19 15:24 Tylenol # 3 - PO Q4H PRN PAIN LEVEL 4 - 6 Amlodipine Besylate 10 mg 09/17/19 10:00 09/18/19 09:56 Norvasc - PO 10 mg DAILY [facility] Administration Atorvastatin Calcium 40 mg 09/16/19 22:00 09/17/19 22:27 Lipitor - PO 40 mg HS [facility]OE Administration Famotidine 20 mg 09/18/19 10:00 09/18/19 09:56 Pepcid - PO 20 mg Q2D [facility]OE Administration Sodium Chloride 250 mls @ 3,000 mls/hr 09/16/19 15:24 Normal Saline - IV PRN PRN Hypotension during Dialysis Sodium Chloride 250 mls @ 3,000 mls/hr 09/17/19 08:48 Normal Saline - IV 09/18/19 08:48 PRN PRN Hypotension during Dialysis Piperacillin Sod/Tazobactam 50 mls @ 100 mls/hr 09/17/19 13:00 09/18/19 09:57 Sod 2.25 gm/ Dextrose IVPB 100 mls/hr Q8H-IV [facility] Administration Protocol Insulin Aspart 1 vial 09/16/19 16:30 09/18/19 11:28 Novolog Vial Sliding Scale - SQ Not Given ACHS [facility] Protocol Labetalol HCl 200 mg 09/16/19 22:00 09/18/19 06:46 Normodyne - PO 200 mg TID [facility] Administration Levothyroxine Sodium 200 mcg/ 225 mcg 09/17/19 07:00 09/18/19 06:45 Levothyroxine Sodium 25 mcg PO 225 mcg DAILY@0700 [facility] Administration Paroxetine HCl 40 mg 09/17/19 10:00 09/18/19 09:56 Paxil - PO 40 mg DAILY [facility]OE Administration Impression 1. LUCY 2. fluid overload 3. acute respiratory failure 4. hypothyroidism with tsh of 100 5. 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 urine tox pos for mdma 7. mild rhabdo 8. hepatitis B 9. ESRD Plan - HD tomorrow - pending placement - fistula with thrill and bruit - monitor urine output - will need GI follow up for hep B - renal diet
[2019-09-18] MEDS: ATORVASTATIN CA 40 MG TABLET (FP) PO SCH (21:58)
[2019-09-19] MEDS ORDERED: PIPERACILLIN/TAZOBACTAM 2.25 GM VIAL IVPB ONE ×3 (02:19→18:10)
[2019-09-19] MEDS ORDERED: DEXTROSE 5%-WATER - 50 ML IVPB ONE ×3 (02:19→18:10)
[2019-09-19] MEDS: PIPERACILLIN/TAZOB 2.25 GM 2.25 GM in DEXTROSE 5%-WATER - 50 ML IVPB SCH ×3 (02:28→18:37)
[2019-09-19] MEDS ORDERED: LEVOTHYROXINE NA 25 MCG TABLET (FP) ONE (05:53)
[2019-09-19] MEDS ORDERED: LEVOTHYROXINE NA 200 MCG TABLET ONE (05:53)
[2019-09-19] MEDS: LEVOTHYROXINE 200 MCG, LEVOTHYROXINE 25 MCG PO SCH (06:03)
[2019-09-19] MEDS: LABETALOL HCL 200 MG TABLET (FP) PO SCH ×3 (06:04→21:57)
[2019-09-19 09:26] LABS: BASO % 0.4 % (0-2.0); HEMATOCRIT 23.5 % (32.4-45.2); HEMOGLOBIN 7.9 GM/dL (10.7-15.3); LYMPH % 41.4 % (8-40); MCH 30.4 pg (25.7-33.7); MCHC 33.8 g/dl (32.0-36.0); MEAN CELL VOLUME 90.1 fl (80-96); MEAN PLT VOLUME 8.6 fl (7.5-11.1); MONO % 7.7 % (3.8-10.2); NEUT % 50.5 % (42.8-82.8); PLATELET COUNT 137 K/MM3 (134-434); RBC 2.61 M/mm3 (3.60-5.2); RDW 15.5 % (11.6-15.6)
[2019-09-19] MEDS: PARoxetine HCL 20 MG TABLET PO SCH (09:38)
[2019-09-19] MEDS: amLODIPine BESYLATE 10 MG TABLET (FP) PO SCH ×2 (09:38→12:43)
[2019-09-19] MEDS: MULTIVITAMINS (DAILY MVI) TABLET (FP) PO SCH (09:38)
[2019-09-19 09:52] LABS: ALBUMIN 2.4 g/dl (3.4-5.0); BILIRUBIN,TOTAL 0.5 mg/dL (0.2-1); BLOOD UREA NITROGEN 18.7 mg/dL (7-18); CALCIUM 7.7 mg/dL (8.5-10.1); CREATININE 4.6 mg/dL (0.55-1.3); MAGNESIUM 1.5 mg/dL (1.8-2.4); POTASSIUM 3.7 mmol/L (3.5-5.1); TOT PROT 5.9 g/dl (6.4-8.2)
[2019-09-19] MEDS ORDERED: MAGNESIUM OXIDE 400 MG TABLET (FP) PO ONE (09:55)
--- NOTE | 2019-09-19 10:37 | PN ---
Progress Note (short form) - Note Progress Note: Resting in NAD. Denies CP or SOB. No acute events overnight. Intake & Output 09/16/19 09/17/19 09/18/19 09/19/19 23:59 23:59 23:59 23:59 Intake Total 760 950 400 210 Output Total 10 1500 Balance 750 -550 400 210 Last Vital Signs Temp Pulse Resp BP Pulse Ox 99.0 F 66 20 142/5 L 95 09/19/19 06:53 09/19/19 06:53 09/19/19 06:53 09/19/19 06:53 09/18/19 21:00 Active Medications Acetaminophen (Tylenol -) 650 mg PO Q6H PRN PRN Reason: Fever Or Pain Last Admin: 09/17/19 22:26 Dose: 650 mg Acetaminophen/Codeine Phosphate (Tylenol # 3 -) 1 tab PO Q4H PRN PRN Reason: PAIN LEVEL 4 - 6 Amlodipine Besylate (Norvasc -) 10 mg PO DAILY [facility] Last Admin: 09/18/19 09:56 Dose: 10 mg Atorvastatin Calcium (Lipitor -) 40 mg PO HS [facility] Last Admin: 09/18/19 21:58 Dose: 40 mg Famotidine (Pepcid -) 20 mg PO Q2D [facility] Last Admin: 09/18/19 09:56 Dose: 20 mg Sodium Chloride (Normal Saline -) 250 mls @ 3,000 mls/hr IV PRN PRN PRN Reason: Hypotension during Dialysis Sodium Chloride (Normal Saline -) 250 mls @ 3,000 mls/hr IV PRN PRN PRN Reason: Hypotension during Dialysis Stop: 09/18/19 08:48 Piperacillin Sod/Tazobactam (Sod 2.25 gm/ Dextrose) 50 mls @ 100 mls/hr IVPB Q8H-IV [facility]; Protocol Last Admin: 09/19/19 09:39 Dose: 100 mls/hr Sodium Chloride (Normal Saline -) 250 mls @ 3,000 mls/hr IV PRN PRN PRN Reason: Hypotension during Dialysis Stop: 09/19/19 13:09 Insulin Aspart (Novolog Vial Sliding Scale -) 1 vial SQ DAILY [facility]; Protocol Labetalol HCl (Normodyne -) 200 mg PO TID [facility] Last Admin: 09/19/19 06:04 Dose: 200 mg Levothyroxine Sodium 200 mcg/ (Levothyroxine Sodium 25 mcg) 225 mcg PO DAILY@ 0700 [facility] Last Admin: 09/19/19 06:03 Dose: 225 mcg Multivitamins/Minerals/Vitamin C (Tab-A-Vit -) 1 tab PO DAILY [facility] Last Admin: 09/19/19 09:38 Dose: 1 tab Paroxetine HCl (Paxil -) 40 mg PO DAILY [facility] Last Admin: 09/19/19 09:38 Dose: 40 mg Gen: NAD Heart: RRR Lung: decreased breath sounds at the bases Abd: soft, nontender Ext: + edema improving Laboratory Results - last 24 hr 09/13/19 09/18/19 09/19/19 02:10 11:27 06:45 WBC RBC Hgb Hct MCV MCH MCHC RDW Plt Count MPV Absolute Neuts (auto) Neutrophils % Lymphocytes % Monocytes % Eosinophils % Basophils % Nucleated RBC % Sodium Potassium Chloride Carbon Dioxide Anion Gap BUN Creatinine Est GFR (CKD-EPI)AfAm Est GFR (CKD-EPI)NonAf POC Glucometer 101 100 Random Glucose Calcium Magnesium Total Bilirubin AST ALT Alkaline Phosphatase Total Protein Albumin MDMA & Metabolite Negative 09/19/19 09/19/19 08:25 08:25 WBC 5.0 RBC 2.61 L Hgb 7.9 L Hct 23.5 L MCV 90.1 MCH 30.4 MCHC 33.8 RDW 15.5 Plt Count 137 MPV 8.6 Absolute Neuts (auto) 2.5 Neutrophils % 50.5 D Lymphocytes % 41.4 H D Monocytes % 7.7 Eosinophils % 0.0 Basophils % 0.4 Nucleated RBC % 0 Sodium 138 Potassium 3.7 Chloride 101 Carbon Dioxide 31 Anion Gap 6 L BUN 18.7 H Creatinine 4.6 H Est GFR (CKD-EPI)AfAm 11.85 Est GFR (CKD-EPI)NonAf 10.23 POC Glucometer Random Glucose 100 Calcium 7.7 L Magnesium 1.5 L Total Bilirubin 0.5 AST 43 H ALT 33 Alkaline Phosphatase 308 H Total Protein 5.9 L Albumin 2.4 L MDMA & Metabolite ASSESSMENT AND PLAN: Acute Hypercapneic Respiratory Failure Myxedema Coma UTI Acute Kidney Injury requiring HD Volume Overload Pleural Effusions COPD DM Anemia - HD per renal - Prednisone & synthroid per Endocrine - O2 as needed - PO as tolerated - DVT/GI prophylaxis - DC planning Dr Alonso
[2019-09-19] MEDS: INSULIN SLIDING SCALE (NOVOLOG) 1 VIAL SQ SCH (12:04)
--- NOTE | 2019-09-19 12:17 | PN ---
Physical Exam: SUBJECTIVE: patient seen and examined at the bedside. in no acute distress, feels well. denies shortness of breath or chest pain. OBJECTIVE: Patient is a 54 year old female with a significant past medical history of hypertension, hyperlipidemia, diabetes, COPD, anemia, thyroid cancer 6 years ago (no prior admission to [facility]). Patient brought into the ED for altered mental status, acute shortness of breath, metabolic acidosis. She was found to have an elevated TSH, low t4 and hypothermic (96f-97-on mariana hugger). on admission had renal failure with a creat of 7.7, bun of 65,mag 1.6 , elevated ast/alt and now on dialysis. She is pending insurance verification for start of outpatient dialysis. Period Temp Pulse Resp BP Sys/Amos Pulse Ox Last 24 Hr 98.6 F-99.6 F 60-75 16-24 106-142/5-65 95-95 GENERAL: The patient is awake, alert, calm HEAD: Normal with no signs of trauma. EYES: PERRL, extraocular movements intact, sclera anicteric, conjunctiva clear. No ptosis. ENT: Ears normal, nares patent, oropharynx clear without exudates, moist mucous membranes. NECK: Trachea midline, full range of motion, supple. LUNGS: Breath sounds equal, diminished HEART: Regular rate and rhythm ABDOMEN: Soft, nontender, nondistended, normoactive bowel sounds, no guarding EXTREMITIES: lower ext trace edema NEUROLOGICAL: awake, alert, cooperative, anxious at times. PSYCH: Normal mood, normal affect. SKIN: Warm, dry, normal turgor, no rashes or lesions noted Laboratory Results - last 24 hr 09/13/19 09/19/19 09/19/19 02:10 06:45 08:25 WBC 5.0 RBC 2.61 L Hgb 7.9 L Hct 23.5 L MCV 90.1 MCH 30.4 MCHC 33.8 RDW 15.5 Plt Count 137 MPV 8.6 Absolute Neuts (auto) 2.5 Neutrophils % 50.5 D Lymphocytes % 41.4 H D Monocytes % 7.7 Eosinophils % 0.0 Basophils % 0.4 Nucleated RBC % 0 Sodium Potassium Chloride Carbon Dioxide Anion Gap BUN Creatinine Est GFR (CKD-EPI)AfAm Est GFR (CKD-EPI)NonAf POC Glucometer 100 Random Glucose Calcium Magnesium Total Bilirubin AST ALT Alkaline Phosphatase Total Protein Albumin MDMA & Metabolite Negative 09/19/19 09/19/19 08:25 12:01 WBC RBC Hgb Hct MCV MCH MCHC RDW Plt Count MPV Absolute Neuts (auto) Neutrophils % Lymphocytes % Monocytes % Eosinophils % Basophils % Nucleated RBC % Sodium 138 Potassium 3.7 Chloride 101 Carbon Dioxide 31 Anion Gap 6 L BUN 18.7 H Creatinine 4.6 H Est GFR (CKD-EPI)AfAm 11.85 Est GFR (CKD-EPI)NonAf 10.23 POC Glucometer 105 Random Glucose 100 Calcium 7.7 L Magnesium 1.5 L Total Bilirubin 0.5 AST 43 H ALT 33 Alkaline Phosphatase 308 H Total Protein 5.9 L Albumin 2.4 L MDMA & Metabolite Active Medications Generic Name Dose Route Start Last Admin Trade Name Freq PRN Reason Stop Dose Admin Acetaminophen 650 mg 09/16/19 15:24 09/17/19 22:26 Tylenol - PO 650 mg Q6H PRN Administration Fever Or Pain Acetaminophen/Codeine Phosphate 1 tab 09/16/19 15:24 Tylenol # 3 - PO Q4H PRN PAIN LEVEL 4 - 6 Amlodipine Besylate 10 mg 09/17/19 10:00 09/18/19 09:56 Norvasc - PO 10 mg DAILY [facility] Administration Atorvastatin Calcium 40 mg 09/16/19 22:00 09/18/19 21:58 Lipitor - PO 40 mg HS [facility] Administration Famotidine 20 mg 09/18/19 10:00 09/18/19 09:56 Pepcid - PO 20 mg Q2D [facility] Administration Sodium Chloride 250 mls @ 3,000 mls/hr 09/16/19 15:24 Normal Saline - IV PRN PRN Hypotension during Dialysis Sodium Chloride 250 mls @ 3,000 mls/hr 09/17/19 08:48 Normal Saline - IV 09/18/19 08:48 PRN PRN Hypotension during Dialysis Piperacillin Sod/Tazobactam 50 mls @ 100 mls/hr 09/17/19 13:00 09/19/19 09:39 Sod 2.25 gm/ Dextrose IVPB 100 mls/hr Q8H-IV [facility] Administration Protocol Sodium Chloride 250 mls @ 3,000 mls/hr 09/18/19 13:09 Normal Saline - IV 09/19/19 13:09 PRN PRN Hypotension during Dialysis Insulin Aspart 1 vial 09/19/19 10:00 09/19/19 12:04 Novolog Vial Sliding Scale - SQ Not Given DAILY [facility] Protocol Labetalol HCl 200 mg 09/16/19 22:00 09/19/19 06:04 Normodyne - PO 200 mg TID [facility] Administration Levothyroxine Sodium 200 mcg/ 225 mcg 09/17/19 07:00 09/19/19 06:03 Levothyroxine Sodium 25 mcg PO 225 mcg DAILY@0700 [facility] Administration Multivitamins/Minerals/Vitamin C 1 tab 09/19/19 10:00 09/19/19 09:38 Tab-A-Vit - PO 1 tab DAILY [facility] Administration Paroxetine HCl 40 mg 09/17/19 10:00 09/19/19 09:38 Paxil - PO 40 mg DAILY [facility] Administration ASSESSMENT/PLAN: Problem List - Problems (1) Fever and chills Assessment/Plan: resolved. blood cultures negative lactic acid within normal limits chest xray with congestion and left base infiltrate, fluid/atelectasis at left base tolerating room air currently, stable saturations but desats and has to have oxygen re applied. will monitor, added incentive spriometer Code(s): R50.9 - FEVER, UNSPECIFIED (2) AV fistula Assessment/Plan: POD #2: AV Fistula +bruit, thrill+ left arm precautions Code(s): I77.0 - ARTERIOVENOUS FISTULA, ACQUIRED (3) Acute metabolic encephalopathy Assessment/Plan: resolved. patient deemed safe to make her own medical decisions by psyche. Code(s): G93.41 - METABOLIC ENCEPHALOPATHY (4) Myxedema coma Assessment/Plan: mental status improved Novolog SS coverage being followed by court reporter On Prednisone 10mg taper on discharge as per endodrine- Pt go go home on LT4 225 repeat TFT in 2 weeks BGM daily as she has been having bgms <150 Code(s): E03.5 - MYXEDEMA COMA (5) Hypercapnic respiratory failure Assessment/Plan: Intubated on admission, extubated on 09/03/19, now room air with prn oxygen Code(s): J96.92 - RESPIRATORY FAILURE, UNSPECIFIED WITH HYPERCAPNIA (6) SOB (shortness of breath) Assessment/Plan: s/p intubation, on 2 liters nc Code(s): R06.02 - SHORTNESS OF BREATH (7) Morbid obesity Assessment/Plan: outpatient follow up as outpatient, dietary following. Code(s): E66.01 - MORBID (SEVERE) OBESITY DUE TO EXCESS CALORIES (8) AMS (altered mental status) Assessment/Plan: see acute metabolic encephalopathy Code(s): R41.82 - ALTERED MENTAL STATUS, UNSPECIFIED (9) Acute renal failure Assessment/Plan: dialysis per renal via shiley av fistula to be used when cleared by vascular Code(s): N17.9 - ACUTE KIDNEY FAILURE, UNSPECIFIED (10) Metabolic acidosis Assessment/Plan: on prednisone taper for possible adrenal insufficiency Code(s): E87.2 - ACIDOSIS (11) Diabetes Assessment/Plan: bgms in am once daily as bgms stable followed by court reporter Code(s): E11.9 - TYPE 2 DIABETES MELLITUS WITHOUT COMPLICATIONS (12) Hypothermia Assessment/Plan: resolved Code(s): T68.XXXA - HYPOTHERMIA, INITIAL ENCOUNTER (13) Anemia Assessment/Plan: received 1 PRBC since admission Hgb stable continue to monitor Code(s): D64.9 - ANEMIA, UNSPECIFIED Qualifiers: Other causes of anemia: chronic disease, other (14) HLD (hyperlipidemia) Code(s): E78.5 - HYPERLIPIDEMIA, UNSPECIFIED (15) Poor appetite Assessment/Plan: continues to have poor PO intake add nepro daily started on multivitamin Code(s): R63.0 - ANOREXIA (16) DVT prophylaxis Assessment/Plan: on heparin tid Code(s): Z29.9 - ENCOUNTER FOR PROPHYLACTIC MEASURES, UNSPECIFIED Visit type - Emergency Visit Emergency Visit: Yes ED Registration Date: 08/25/19 Care time: The patient presented to the Emergency Department on the above date and was hospitalized for further evaluation of their emergent condition. - New Patient This patient is new to me today: No - Critical Care Critical Care patient: No - Discharge Referral Referred to [facility] No
--- NOTE | 2019-09-19 13:11 | PN ---
Progress Note, Physician History of Present Illness: stable remaining afebrile now cx reports noted - Current Medication List Current Medications: Active Medications Acetaminophen (Tylenol -) 650 mg PO Q6H PRN PRN Reason: Fever Or Pain Last Admin: 09/17/19 22:26 Dose: 650 mg Acetaminophen/Codeine Phosphate (Tylenol # 3 -) 1 tab PO Q4H PRN PRN Reason: PAIN LEVEL 4 - 6 Amlodipine Besylate (Norvasc -) 10 mg PO DAILY [facility] Last Admin: 09/19/19 12:43 Dose: Not Given Atorvastatin Calcium (Lipitor -) 40 mg PO HS [facility] Last Admin: 09/18/19 21:58 Dose: 40 mg Famotidine (Pepcid -) 20 mg PO Q2D [facility] Last Admin: 09/18/19 09:56 Dose: 20 mg Sodium Chloride (Normal Saline -) 250 mls @ 3,000 mls/hr IV PRN PRN PRN Reason: Hypotension during Dialysis Sodium Chloride (Normal Saline -) 250 mls @ 3,000 mls/hr IV PRN PRN PRN Reason: Hypotension during Dialysis Stop: 09/18/19 08:48 Piperacillin Sod/Tazobactam (Sod 2.25 gm/ Dextrose) 50 mls @ 100 mls/hr IVPB Q8H-IV [facility]; Protocol Last Admin: 09/19/19 09:39 Dose: 100 mls/hr Sodium Chloride (Normal Saline -) 250 mls @ 3,000 mls/hr IV PRN PRN PRN Reason: Hypotension during Dialysis Stop: 09/19/19 13:09 Insulin Aspart (Novolog Vial Sliding Scale -) 1 vial SQ DAILY [facility]; Protocol Last Admin: 09/19/19 12:04 Dose: Not Given Labetalol HCl (Normodyne -) 200 mg PO TID [facility] Last Admin: 09/19/19 06:04 Dose: 200 mg Levothyroxine Sodium 200 mcg/ (Levothyroxine Sodium 25 mcg) 225 mcg PO DAILY@ 0700 [facility] Last Admin: 09/19/19 06:03 Dose: 225 mcg Multivitamins/Minerals/Vitamin C (Tab-A-Vit -) 1 tab PO DAILY [facility] Last Admin: 09/19/19 09:38 Dose: 1 tab Paroxetine HCl (Paxil -) 40 mg PO DAILY [facility] Last Admin: 09/19/19 09:38 Dose: 40 mg - Objective Vital Signs: Vital Signs Temperature 98.6 F 09/19/19 10:00 Pulse Rate 63 09/19/19 10:00 Respiratory Rate 18 09/19/19 10:00 Blood Pressure 133/61 09/19/19 10:00 O2 Sat by Pulse Oximetry (%) 95 09/19/19 09:00 Constitutional: Yes: No Distress, Calm Cardiovascular: Yes: S1, S2 Respiratory: Yes: Regular, CTA Bilaterally Gastrointestinal: Yes: Normal Bowel Sounds, Soft Musculoskeletal: Yes: WNL Extremities: Yes: WNL Neurological: Yes: Alert Psychiatric: Yes: Alert Labs: CBC, BMP 09/19/19 08:25 09/19/19 08:25 INR, PTT INR 0.99 (0.83-1.09) 09/05/19 13:45 Assessment/Plan Problem List - Problems (1) LUCY (acute kidney injury) Code(s): N17.9 - ACUTE KIDNEY FAILURE, UNSPECIFIED (2) AMS (altered mental status) Code(s): R41.82 - ALTERED MENTAL STATUS, UNSPECIFIED (3) Acute metabolic encephalopathy Code(s): G93.41 - METABOLIC ENCEPHALOPATHY (4) Acute respiratory failure Code(s): J96.00 - ACUTE RESPIRATORY FAILURE, UNSP W HYPOXIA OR HYPERCAPNIA (5) Anemia Code(s): D64.9 - ANEMIA, UNSPECIFIED (6) COPD (chronic obstructive pulmonary disease) Code(s): J44.9 - CHRONIC OBSTRUCTIVE PULMONARY DISEASE, UNSPECIFIED (7) Diabetes Code(s): E11.9 - TYPE 2 DIABETES MELLITUS WITHOUT COMPLICATIONS (8) HTN (hypertension) Code(s): I10 - ESSENTIAL (PRIMARY) HYPERTENSION (9) Hypercapnic respiratory failure Code(s): J96.92 - RESPIRATORY FAILURE, UNSPECIFIED WITH HYPERCAPNIA (10) Hypothermia Code(s): T68.XXXA - HYPOTHERMIA, INITIAL ENCOUNTER (11) Morbid obesity Code(s): E66.01 - MORBID (SEVERE) OBESITY DUE TO EXCESS CALORIES (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 - MYXEDEMA COMA (13) Thyroid cancer Code(s): C73 - MALIGNANT NEOPLASM OF THYROID GLAND Assessment/Plan Acute respiratory failure on MV/sedation Acute metabolic encephalopathy AMS Myxedema coma DM LUCY on CKD Obesity Hx of thyroid CA s/p thyroidectomy HTN HLD COPD Anemia vap plan continue abx incentive gio rest as per the team
--- NOTE | 2019-09-19 14:36 | PN ---
Progress Note, Physician History of Present Illness: Pt seen and examined at bedside. She is tolerating HD. She denies shortness of breath. - Current Medication List Current Medications: Active Medications Acetaminophen (Tylenol -) 650 mg PO Q6H PRN PRN Reason: Fever Or Pain Last Admin: 09/17/19 22:26 Dose: 650 mg Acetaminophen/Codeine Phosphate (Tylenol # 3 -) 1 tab PO Q4H PRN PRN Reason: PAIN LEVEL 4 - 6 Amlodipine Besylate (Norvasc -) 10 mg PO DAILY [facility] Last Admin: 09/19/19 12:43 Dose: Not Given Atorvastatin Calcium (Lipitor -) 40 mg PO HS [facility] Last Admin: 09/18/19 21:58 Dose: 40 mg Famotidine (Pepcid -) 20 mg PO Q2D [facility] Last Admin: 09/18/19 09:56 Dose: 20 mg Sodium Chloride (Normal Saline -) 250 mls @ 3,000 mls/hr IV PRN PRN PRN Reason: Hypotension during Dialysis Sodium Chloride (Normal Saline -) 250 mls @ 3,000 mls/hr IV PRN PRN PRN Reason: Hypotension during Dialysis Stop: 09/18/19 08:48 Piperacillin Sod/Tazobactam (Sod 2.25 gm/ Dextrose) 50 mls @ 100 mls/hr IVPB Q8H-IV [facility]; Protocol Last Admin: 09/19/19 09:39 Dose: 100 mls/hr Sodium Chloride (Normal Saline -) 250 mls @ 3,000 mls/hr IV PRN PRN PRN Reason: Hypotension during Dialysis Stop: 09/19/19 13:09 Insulin Aspart (Novolog Vial Sliding Scale -) 1 vial SQ DAILY [facility]; Protocol Last Admin: 09/19/19 12:04 Dose: Not Given Labetalol HCl (Normodyne -) 200 mg PO TID [facility] Last Admin: 09/19/19 06:04 Dose: 200 mg Levothyroxine Sodium 200 mcg/ (Levothyroxine Sodium 25 mcg) 225 mcg PO DAILY@ 0700 [facility] Last Admin: 09/19/19 06:03 Dose: 225 mcg Multivitamins/Minerals/Vitamin C (Tab-A-Vit -) 1 tab PO DAILY [facility] Last Admin: 09/19/19 09:38 Dose: 1 tab Paroxetine HCl (Paxil -) 40 mg PO DAILY [facility] Last Admin: 09/19/19 09:38 Dose: 40 mg - Objective Vital Signs: Vital Signs Temperature 97.6 F 09/19/19 13:05 Pulse Rate 61 09/19/19 14:10 Respiratory Rate 18 09/19/19 14:10 Blood Pressure 156/71 09/19/19 14:10 O2 Sat by Pulse Oximetry (%) 95 09/19/19 09:00 Constitutional: Yes: Calm Eyes: Yes: Conjunctiva Clear HENT: Yes: Atraumatic Neck: Yes: Supple Cardiovascular: Yes: S1, S2 Respiratory: Yes: CTA Bilaterally Gastrointestinal: Yes: Soft, Abdomen, Obese Genitourinary: Yes: WNL Musculoskeletal: Yes: Muscle Weakness Edema: Yes Edema: LLE: Trace, RLE: Trace Integumentary: Yes: Tattoos Neurological: Yes: Oriented Psychiatric: Yes: Oriented Labs: CBC, BMP 09/19/19 08:25 09/19/19 08:25 INR, PTT INR 0.99 (0.83-1.09) 09/05/19 13:45 Problem List - Problems (1) AMS (altered mental status) Code(s): R41.82 - ALTERED MENTAL STATUS, UNSPECIFIED (2) Acute metabolic encephalopathy Code(s): G93.41 - METABOLIC ENCEPHALOPATHY (3) Acute renal failure Code(s): N17.9 - ACUTE KIDNEY FAILURE, UNSPECIFIED (4) Diabetes Code(s): E11.9 - TYPE 2 DIABETES MELLITUS WITHOUT COMPLICATIONS (5) Hypercapnic respiratory failure Code(s): J96.92 - RESPIRATORY FAILURE, UNSPECIFIED WITH HYPERCAPNIA (6) Hypothermia Code(s): T68.XXXA - HYPOTHERMIA, INITIAL ENCOUNTER (7) Morbid obesity Code(s): E66.01 - MORBID (SEVERE) OBESITY DUE TO EXCESS CALORIES Assessment/Plan Current Medications Generic Name Dose Route Start Last Admin Trade Name Freq PRN Reason Stop Dose Admin Acetaminophen 650 mg 09/16/19 15:24 09/17/19 22:26 Tylenol - PO 650 mg Q6H PRN Administration Fever Or Pain Acetaminophen/Codeine Phosphate 1 tab 09/16/19 15:24 Tylenol # 3 - PO Q4H PRN PAIN LEVEL 4 - 6 Amlodipine Besylate 10 mg 09/17/19 10:00 09/19/19 12:43 Norvasc - PO Not Given DAILY [facility] Atorvastatin Calcium 40 mg 09/16/19 22:00 09/18/19 21:58 Lipitor - PO 40 mg HS [facility] Administration Famotidine 20 mg 09/18/19 10:00 09/18/19 09:56 Pepcid - PO 20 mg Q2D [facility] Administration Sodium Chloride 250 mls @ 3,000 mls/hr 09/16/19 15:24 Normal Saline - IV PRN PRN Hypotension during Dialysis Sodium Chloride 250 mls @ 3,000 mls/hr 09/17/19 08:48 Normal Saline - IV 09/18/19 08:48 PRN PRN Hypotension during Dialysis Piperacillin Sod/Tazobactam 50 mls @ 100 mls/hr 09/17/19 13:00 09/19/19 09:39 Sod 2.25 gm/ Dextrose IVPB 100 mls/hr Q8H-IV [facility] Administration Protocol Sodium Chloride 250 mls @ 3,000 mls/hr 09/18/19 13:09 Normal Saline - IV 09/19/19 13:09 PRN PRN Hypotension during Dialysis Insulin Aspart 1 vial 09/19/19 10:00 09/19/19 12:04 Novolog Vial Sliding Scale - SQ Not Given DAILY [facility] Protocol Labetalol HCl 200 mg 09/16/19 22:00 09/19/19 06:04 Normodyne - PO 200 mg TID [facility] Administration Levothyroxine Sodium 200 mcg/ 225 mcg 09/17/19 07:00 09/19/19 06:03 Levothyroxine Sodium 25 mcg PO 225 mcg DAILY@0700 [facility] Administration Multivitamins/Minerals/Vitamin C 1 tab 09/19/19 10:00 09/19/19 09:38 Tab-A-Vit - PO 1 tab DAILY [facility] Administration Paroxetine HCl 40 mg 09/17/19 10:00 09/19/19 09:38 Paxil - PO 40 mg DAILY [facility] Administration Impression 1. ESRD 2. fluid overload 3. acute respiratory failure 4. hypothyroidism with tsh of 100 5. 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 urine tox pos for mdma 7. mild rhabdo 8. hepatitis B Plan - HD today - will need a unit that takes Hep B patients - fistula with thrill and bruit - pending placement - monitor urine output - will need GI follow up for hep B - renal diet
--- NOTE | 2019-09-19 15:59 | PN ---
Progress Note (short form) - Note Progress Note: 54 year old female history of HTN, HLD, DM COPD, Anemia thyroid cancer. Patient came with ams and had CHF, renal failure , anemia . James was intubated, she was hypothermic. She is on sedation . Ganesh has ct head and there is mild dilation of ventricles. patient has fistula made yesterday on left arm. she denies any new complain. waiting for placement and getting dialysis today. NEUROLOGICAL EXAMINATION neck is supple , hypertensive, alert oriented x 3( knows her name where she is , is able to tell me today is september 06 but mistake on year) pupils reactive no face asymmetry moving all ext , generalized proximal weakness rest of neuro exam is not possible ct head reviewed and mild ventricular dilatation and this could be due to intercurrent illness Assessment/Plan4 year old female history of HTN, HLD, DM COPD, Anemia thyroid cancer. Patient came with ams and had CHF, renal failure , anemia . Plan: supportive care and follow up outpatient waiting for placement Thanking you so much Hill Hayden MD
[2019-09-19] MEDS ORDERED: LABETALOL HCL 100 MG TABLET (FP) ONE (21:26)
[2019-09-19] MEDS: ATORVASTATIN CA 40 MG TABLET (FP) PO SCH (21:57)
[2019-09-20] MEDS ORDERED: PIPERACILLIN/TAZOBACTAM 2.25 GM VIAL IVPB ONE ×3 (02:39→17:35)
[2019-09-20] MEDS ORDERED: DEXTROSE 5%-WATER - 50 ML IVPB ONE ×3 (02:39→17:35)
[2019-09-20] MEDS: PIPERACILLIN/TAZOB 2.25 GM 2.25 GM in DEXTROSE 5%-WATER - 50 ML IVPB SCH ×3 (02:54→17:50)
[2019-09-20] MEDS ORDERED: LABETALOL HCL 100 MG TABLET (FP) ONE ×3 (06:02→22:24)
[2019-09-20] MEDS: LEVOTHYROXINE 200 MCG, LEVOTHYROXINE 25 MCG PO SCH (06:42)
[2019-09-20] MEDS: LABETALOL HCL 200 MG TABLET (FP) PO SCH ×3 (06:42→22:32)
[2019-09-20] MEDS ORDERED: INSULIN (LEVEMIR) 100 UNITS/ML UNITS SQ ONE (07:24)
--- NOTE | 2019-09-20 09:53 | PN ---
Progress Note, Physician History of Present Illness: stable no new issues - Current Medication List Current Medications: Active Medications Acetaminophen (Tylenol -) 650 mg PO Q6H PRN PRN Reason: Fever Or Pain Last Admin: 09/17/19 22:26 Dose: 650 mg Acetaminophen/Codeine Phosphate (Tylenol # 3 -) 1 tab PO Q4H PRN PRN Reason: PAIN LEVEL 4 - 6 Amlodipine Besylate (Norvasc -) 10 mg PO DAILY [facility] Last Admin: 09/19/19 12:43 Dose: Not Given Atorvastatin Calcium (Lipitor -) 40 mg PO HS [facility] Last Admin: 09/19/19 21:57 Dose: 40 mg Famotidine (Pepcid -) 20 mg PO Q2D [facility] Last Admin: 09/18/19 09:56 Dose: 20 mg Piperacillin Sod/Tazobactam (Sod 2.25 gm/ Dextrose) 50 mls @ 100 mls/hr IVPB Q8H-IV [facility]; Protocol Last Admin: 09/20/19 02:54 Dose: 100 mls/hr Sodium Chloride (Normal Saline -) 250 mls @ 3,000 mls/hr IV PRN PRN PRN Reason: Hypotension during Dialysis Stop: 09/19/19 13:09 Insulin Aspart (Novolog Vial Sliding Scale -) 1 vial SQ DAILY [facility]; Protocol Last Admin: 09/19/19 12:04 Dose: Not Given Labetalol HCl (Normodyne -) 200 mg PO TID [facility] Last Admin: 09/20/19 06:42 Dose: 200 mg Levothyroxine Sodium 200 mcg/ (Levothyroxine Sodium 25 mcg) 225 mcg PO DAILY@ 0700 [facility] Last Admin: 09/20/19 06:42 Dose: 225 mcg Multivitamins/Minerals/Vitamin C (Tab-A-Vit -) 1 tab PO DAILY [facility] Last Admin: 09/19/19 09:38 Dose: 1 tab Paroxetine HCl (Paxil -) 40 mg PO DAILY [facility] Last Admin: 09/19/19 09:38 Dose: 40 mg - Objective Vital Signs: Vital Signs Temperature 98.1 F 09/20/19 06:32 Pulse Rate 67 09/20/19 06:32 Respiratory Rate 20 09/20/19 06:32 Blood Pressure 155/77 09/20/19 06:32 O2 Sat by Pulse Oximetry (%) 95 09/19/19 21:00 Constitutional: Yes: No Distress, Calm, Obese Cardiovascular: Yes: S1, S2 Respiratory: Yes: Regular, CTA Bilaterally Gastrointestinal: Yes: Normal Bowel Sounds, Soft Musculoskeletal: Yes: WNL Extremities: Yes: WNL Integumentary: Yes: WNL Wound/Incision: Yes: Dressing Dry and Intact Psychiatric: Yes: Alert, Oriented Labs: CBC, BMP 09/19/19 08:25 09/19/19 08:25 INR, PTT INR 0.99 (0.83-1.09) 09/05/19 13:45 Assessment/Plan Problem List - Problems (1) LUCY (acute kidney injury) Code(s): N17.9 - ACUTE KIDNEY FAILURE, UNSPECIFIED (2) AMS (altered mental status) Code(s): R41.82 - ALTERED MENTAL STATUS, UNSPECIFIED (3) Acute metabolic encephalopathy Code(s): G93.41 - METABOLIC ENCEPHALOPATHY (4) Acute respiratory failure Code(s): J96.00 - ACUTE RESPIRATORY FAILURE, UNSP W HYPOXIA OR HYPERCAPNIA (5) Anemia Code(s): D64.9 - ANEMIA, UNSPECIFIED (6) COPD (chronic obstructive pulmonary disease) Code(s): J44.9 - CHRONIC OBSTRUCTIVE PULMONARY DISEASE, UNSPECIFIED (7) Diabetes Code(s): E11.9 - TYPE 2 DIABETES MELLITUS WITHOUT COMPLICATIONS (8) HTN (hypertension) Code(s): I10 - ESSENTIAL (PRIMARY) HYPERTENSION (9) Hypercapnic respiratory failure Code(s): J96.92 - RESPIRATORY FAILURE, UNSPECIFIED WITH HYPERCAPNIA (10) Hypothermia Code(s): T68.XXXA - HYPOTHERMIA, INITIAL ENCOUNTER (11) Morbid obesity Code(s): E66.01 - MORBID (SEVERE) OBESITY DUE TO EXCESS CALORIES (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 - MYXEDEMA COMA (13) Thyroid cancer Code(s): C73 - MALIGNANT NEOPLASM OF THYROID GLAND Assessment/Plan Acute respiratory failure on MV/sedation Acute metabolic encephalopathy AMS Myxedema coma DM LUCY on CKD Obesity Hx of thyroid CA s/p thyroidectomy HTN HLD COPD Anemia vap plan continue abx incentive gio rest as per the team
--- NOTE | 2019-09-20 10:03 | PN ---
Progress Note (short form) - Note Progress Note: 54 year old female history of HTN, HLD, DM COPD, Anemia thyroid cancer. Patient came with ams and had CHF, renal failure , anemia . James was intubated, she was hypothermic. She is on sedation . Ganesh has ct head and there is mild dilation of ventricles. patient has fistula made yesterday on left arm. no new symptoms. NEUROLOGICAL EXAMINATION neck is supple , hypertensive, alert oriented x 3( knows her name where she is , is able to tell me today is september 06 but mistake on year) pupils reactive no face asymmetry moving all ext , generalized proximal weakness rest of neuro exam is not possible ct head reviewed and mild ventricular dilatation and this could be due to intercurrent illness Assessment/Plan2 year old female history of HTN, HLD, DM COPD, Anemia thyroid cancer. Patient came with ams and had CHF, renal failure , anemia . Plan: waiting for placement, s/w follow up Thanking you so much Hill Hayden MD
[2019-09-20] MEDS: amLODIPine BESYLATE 10 MG TABLET (FP) PO SCH (10:20)
[2019-09-20] MEDS: MULTIVITAMINS (DAILY MVI) TABLET (FP) PO SCH (10:20)
[2019-09-20] MEDS: FAMOTIDINE 20 MG TABLET PO SCH (10:20)
[2019-09-20] MEDS: PARoxetine HCL 20 MG TABLET PO SCH (10:20)
[2019-09-20] MEDS ORDERED: INSULIN SLIDING SCALE (NOVOLOG) 1 VIAL SQ SCH (10:51)
[2019-09-20] MEDS: INSULIN SLIDING SCALE (NOVOLOG) 1 VIAL SQ SCH ×2 (11:01→12:15)
--- NOTE | 2019-09-20 11:07 | PN ---
Physical Exam: SUBJECTIVE: Patient seen and examined at the bedside. sitting up, no oxygen, stable oxygen sats on room air. she denies any shortness of breath. wants to go home and explained to her that we are waiting for a dialysis center to accept her. OBJECTIVE: Patient is a 54 year old female with a significant past medical history of hypertension, hyperlipidemia, diabetes, COPD, anemia, thyroid cancer 6 years ago (no prior admission to [facility]). Patient brought into the ED for altered mental status, acute shortness of breath, metabolic acidosis. She was found to have an elevated TSH, low t4 and hypothermic ([id number] mariana hugger). on admission had renal failure with a creat of 7.7, bun of 65, mag 1.6, elevated ast/alt and now on dialysis. She is pending outpatient dialysis center acceptance as she is hep b+. Vital Signs Period Temp Pulse Resp BP Sys/Amos Pulse Ox Last 24 Hr 97.6 F-98.1 F 58-67 18-20 126-158/67-87 95 GENERAL: The patient is awake, alert, calm and in no acute distress. HEAD: Normal with no signs of trauma. EYES: PERRL, extraocular movements intact, sclera anicteric, conjunctiva clear. No ptosis. ENT: Ears normal, nares patent, oropharynx clear without exudates, moist mucous membranes. NECK: Trachea midline, full range of motion, supple. LUNGS: left lung with fine crackles, right lung clear, stable oxygen saturations HEART: Regular rate and rhythm ABDOMEN: Soft, nontender, nondistended, normoactive bowel sounds, no guarding EXTREMITIES: no edema NEUROLOGICAL: awake, alert, cooperative, anxious at times. PSYCH: Normal mood, normal affect. SKIN: Warm, dry, normal turgor, no rashes or lesions noted Laboratory Results - last 24 hr 09/19/19 12:01 POC Glucometer 105 Active Medications Generic Name Dose Route Start Last Admin Trade Name Freq PRN Reason Stop Dose Admin Acetaminophen 650 mg 09/16/19 15:24 09/17/19 22:26 Tylenol - PO 650 mg Q6H PRN Administration Fever Or Pain Acetaminophen/Codeine Phosphate 1 tab 09/16/19 15:24 Tylenol # 3 - PO Q4H PRN PAIN LEVEL 4 - 6 Amlodipine Besylate 10 mg 09/17/19 10:00 09/20/19 10:20 Norvasc - PO 10 mg DAILY [facility] Administration Atorvastatin Calcium 40 mg 09/16/19 22:00 09/19/19 21:57 Lipitor - PO 40 mg HS [facility] Administration Famotidine 20 mg 09/18/19 10:00 09/20/19 10:20 Pepcid - PO 20 mg Q2D [facility] Administration Piperacillin Sod/Tazobactam 50 mls @ 100 mls/hr 09/17/19 13:00 09/20/19 10:19 Sod 2.25 gm/ Dextrose IVPB 100 mls/hr Q8H-IV [facility] Administration Protocol Sodium Chloride 250 mls @ 3,000 mls/hr 09/18/19 13:09 Normal Saline - IV 09/19/19 13:09 PRN PRN Hypotension during Dialysis Insulin Aspart 1 vial 09/20/19 11:06 Novolog Vial Sliding Scale - SQ DAILY [facility] Protocol Labetalol HCl 200 mg 09/16/19 22:00 09/20/19 06:42 Normodyne - PO 200 mg TID [facility] Administration Levothyroxine Sodium 200 mcg/ 225 mcg 09/17/19 07:00 09/20/19 06:42 Levothyroxine Sodium 25 mcg PO 225 mcg DAILY@0700 [facility] Administration Multivitamins/Minerals/Vitamin C 1 tab 09/19/19 10:00 09/20/19 10:20 Tab-A-Vit - PO 1 tab DAILY [facility] Administration Paroxetine HCl 40 mg 09/17/19 10:00 09/20/19 10:20 Paxil - PO 40 mg DAILY [facility] Administration ASSESSMENT/PLAN: Problem List - Problems (1) Fever and chills Assessment/Plan: resolved. blood cultures negative lactic acid within normal limits chest xray with congestion and left base infiltrate, fluid/atelectasis at left base tolerating room air currently will monitor, added incentive spriometer Code(s): R50.9 - FEVER, UNSPECIFIED (2) AV fistula Assessment/Plan: s/p AV Fistula +bruit, thrill+ left arm precautions Code(s): I77.0 - ARTERIOVENOUS FISTULA, ACQUIRED (3) Acute metabolic encephalopathy Assessment/Plan: resolved. patient deemed safe to make her own medical decisions by psyche. Code(s): G93.41 - METABOLIC ENCEPHALOPATHY (4) Myxedema coma Assessment/Plan: mental status improved Novolog SS coverage being followed by freezing room worker On Prednisone 10mg taper (completed) on discharge as per endodrine- Pt go go home on LT4 225 repeat TFT as an outpt. BGM daily as she has been having bgms <150 Code(s): E03.5 - MYXEDEMA COMA (5) Hypercapnic respiratory failure Assessment/Plan: Intubated on admission, extubated on 09/03/19, now room air with prn oxygen Code(s): J96.92 - RESPIRATORY FAILURE, UNSPECIFIED WITH HYPERCAPNIA (6) SOB (shortness of breath) Assessment/Plan: s/p intubation, on 2 liters nc Code(s): R06.02 - SHORTNESS OF BREATH (7) Morbid obesity Assessment/Plan: outpatient follow up as outpatient, dietary following. Code(s): E66.01 - MORBID (SEVERE) OBESITY DUE TO EXCESS CALORIES (8) AMS (altered mental status) Assessment/Plan: see acute metabolic encephalopathy Code(s): R41.82 - ALTERED MENTAL STATUS, UNSPECIFIED (9) Acute renal failure Assessment/Plan: dialysis per renal via shiley av fistula to be used when cleared by vascular Code(s): N17.9 - ACUTE KIDNEY FAILURE, UNSPECIFIED (10) Metabolic acidosis Assessment/Plan: on prednisone taper for possible adrenal insufficiency Code(s): E87.2 - ACIDOSIS (11) Diabetes Assessment/Plan: bgms in am once daily as bgms stable followed by freezing room worker Code(s): E11.9 - TYPE 2 DIABETES MELLITUS WITHOUT COMPLICATIONS (12) Hypothermia Assessment/Plan: resolved Code(s): T68.XXXA - HYPOTHERMIA, INITIAL ENCOUNTER (13) Anemia Assessment/Plan: received 1 PRBC since admission Hgb stable continue to monitor Code(s): D64.9 - ANEMIA, UNSPECIFIED Qualifiers: Other causes of anemia: chronic disease, other (14) HLD (hyperlipidemia) Code(s): E78.5 - HYPERLIPIDEMIA, UNSPECIFIED (15) Poor appetite Assessment/Plan: continues to have poor PO intake add nepro daily started on multivitamin Code(s): R63.0 - ANOREXIA (16) DVT prophylaxis Assessment/Plan: on heparin tid Code(s): Z29.9 - ENCOUNTER FOR PROPHYLACTIC MEASURES, UNSPECIFIED Visit type - Emergency Visit Emergency Visit: Yes ED Registration Date: 08/25/19 Care time: The patient presented to the Emergency Department on the above date and was hospitalized for further evaluation of their emergent condition. - New Patient This patient is new to me today: No - Critical Care Critical Care patient: No - Discharge Referral Referred to [facility] Med P.C.: No
--- NOTE | 2019-09-20 11:16 | PN ---
Progress Note (short form) - Note Progress Note: PULMONARY Resting in NAD. Denies CP or SOB. No acute events overnight Wants to go home. VSS/AFEBRILE Gen: NAD Heart: RRR Lung: decreased breath sounds at the bases Abd: soft, nontender Ext: + edema improving labs/meds/notes reviewed Acute Hypercapneic Respiratory Failure Myxedema Coma UTI Acute Kidney Injury requiring HD Volume Overload Pleural Effusions COPD DM Anemia - HD per renal - Prednisone & synthroid per Endocrine - O2 as needed - PO as tolerated - DVT/GI prophylaxis - DC planning Ritu MONTOYA MD
[2019-09-20] MEDS ORDERED: MAGNESIUM OXIDE 400 MG TABLET (FP) PO ONE (14:23)
--- NOTE | 2019-09-20 14:23 | PN ---
Progress Note, Physician History of Present Illness: Pt seen and examined at bedside. She is awake and alert. - Current Medication List Current Medications: Active Medications Acetaminophen (Tylenol -) 650 mg PO Q6H PRN PRN Reason: Fever Or Pain Last Admin: 09/17/19 22:26 Dose: 650 mg Acetaminophen/Codeine Phosphate (Tylenol # 3 -) 1 tab PO Q4H PRN PRN Reason: PAIN LEVEL 4 - 6 Amlodipine Besylate (Norvasc -) 10 mg PO DAILY [facility] Last Admin: 09/20/19 10:20 Dose: 10 mg Atorvastatin Calcium (Lipitor -) 40 mg PO HS [facility] Last Admin: 09/19/19 21:57 Dose: 40 mg Famotidine (Pepcid -) 20 mg PO Q2D [facility] Last Admin: 09/20/19 10:20 Dose: 20 mg Piperacillin Sod/Tazobactam (Sod 2.25 gm/ Dextrose) 50 mls @ 100 mls/hr IVPB Q8H-IV [facility]; Protocol Last Admin: 09/20/19 10:19 Dose: 100 mls/hr Sodium Chloride (Normal Saline -) 250 mls @ 3,000 mls/hr IV PRN PRN PRN Reason: Hypotension during Dialysis Stop: 09/19/19 13:09 Insulin Aspart (Novolog Vial Sliding Scale -) 1 vial SQ DAILY@0700 [facility]; Protocol Last Admin: 09/20/19 12:15 Dose: Not Given Labetalol HCl (Normodyne -) 200 mg PO TID [facility] Last Admin: 09/20/19 13:21 Dose: 200 mg Levothyroxine Sodium 200 mcg/ (Levothyroxine Sodium 25 mcg) 225 mcg PO DAILY@ 0700 [facility] Last Admin: 09/20/19 06:42 Dose: 225 mcg Multivitamins/Minerals/Vitamin C (Tab-A-Vit -) 1 tab PO DAILY [facility] Last Admin: 09/20/19 10:20 Dose: 1 tab Paroxetine HCl (Paxil -) 40 mg PO DAILY [facility] Last Admin: 09/20/19 10:20 Dose: 40 mg - Objective Vital Signs: Vital Signs Temperature 97.9 F 09/20/19 10:20 Pulse Rate 66 09/20/19 10:20 Respiratory Rate 20 09/20/19 10:20 Blood Pressure 145/67 09/20/19 10:20 O2 Sat by Pulse Oximetry (%) 95 09/19/19 21:00 Constitutional: Yes: Calm Eyes: Yes: Conjunctiva Clear HENT: Yes: Atraumatic Neck: Yes: Supple Cardiovascular: Yes: S1, S2 Respiratory: Yes: CTA Bilaterally Gastrointestinal: Yes: Soft Genitourinary: Yes: WNL Musculoskeletal: Yes: WNL Edema: No Integumentary: Yes: Tattoos Neurological: Yes: Oriented Psychiatric: Yes: Oriented Labs: CBC, BMP 09/19/19 08:25 09/19/19 08:25 INR, PTT INR 0.99 (0.83-1.09) 09/05/19 13:45 Problem List - Problems (1) AMS (altered mental status) Code(s): R41.82 - ALTERED MENTAL STATUS, UNSPECIFIED (2) Acute metabolic encephalopathy Code(s): G93.41 - METABOLIC ENCEPHALOPATHY (3) Acute renal failure Code(s): N17.9 - ACUTE KIDNEY FAILURE, UNSPECIFIED (4) Diabetes Code(s): E11.9 - TYPE 2 DIABETES MELLITUS WITHOUT COMPLICATIONS (5) Hypercapnic respiratory failure Code(s): J96.92 - RESPIRATORY FAILURE, UNSPECIFIED WITH HYPERCAPNIA (6) Hypothermia Code(s): T68.XXXA - HYPOTHERMIA, INITIAL ENCOUNTER (7) Morbid obesity Code(s): E66.01 - MORBID (SEVERE) OBESITY DUE TO EXCESS CALORIES Assessment/Plan Current Medications Generic Name Dose Route Start Last Admin Trade Name Freq PRN Reason Stop Dose Admin Acetaminophen 650 mg 09/16/19 15:24 09/17/19 22:26 Tylenol - PO 650 mg Q6H PRN Administration Fever Or Pain Acetaminophen/Codeine Phosphate 1 tab 09/16/19 15:24 Tylenol # 3 - PO Q4H PRN PAIN LEVEL 4 - 6 Amlodipine Besylate 10 mg 09/17/19 10:00 09/20/19 10:20 Norvasc - PO 10 mg DAILY [facility] Administration Atorvastatin Calcium 40 mg 09/16/19 22:00 09/19/19 21:57 Lipitor - PO 40 mg HS [facility] Administration Famotidine 20 mg 09/18/19 10:00 09/20/19 10:20 Pepcid - PO 20 mg Q2D [facility] Administration Piperacillin Sod/Tazobactam 50 mls @ 100 mls/hr 09/17/19 13:00 09/20/19 10:19 Sod 2.25 gm/ Dextrose IVPB 100 mls/hr Q8H-IV [facility] Administration Protocol Sodium Chloride 250 mls @ 3,000 mls/hr 09/18/19 13:09 Normal Saline - IV 09/19/19 13:09 PRN PRN Hypotension during Dialysis Insulin Aspart 1 vial 09/20/19 11:06 09/20/19 12:15 Novolog Vial Sliding Scale - SQ Not Given DAILY@0700 [facility] Protocol Labetalol HCl 200 mg 09/16/19 22:00 09/20/19 13:21 Normodyne - PO 200 mg TID [facility] Administration Levothyroxine Sodium 200 mcg/ 225 mcg 09/17/19 07:00 09/20/19 06:42 Levothyroxine Sodium 25 mcg PO 225 mcg DAILY@0700 [facility] Administration Multivitamins/Minerals/Vitamin C 1 tab 09/19/19 10:00 09/20/19 10:20 Tab-A-Vit - PO 1 tab DAILY [facility] Administration Paroxetine HCl 40 mg 09/17/19 10:00 09/20/19 10:20 Paxil - PO 40 mg DAILY [facility] Administration Impression 1. ESRD 2. fluid overload 3. acute respiratory failure 4. hypothyroidism with tsh of 100 5. 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 urine tox pos for mdma 7. mild rhabdo 8. hepatitis B Plan - HD tomorrow - pending hep b pos hd unit placement - linen room custodian not improved - renal diet - fistula with thrill and bruit
[2019-09-20 17:56] LABS: BASO % 0.3 % (0-2.0); HEMATOCRIT 23.8 % (32.4-45.2); HEMOGLOBIN 7.8 GM/dL (10.7-15.3); LYMPH % 44.8 % (8-40); MEAN PLT VOLUME 8.5 fl (7.5-11.1); MONO % 6.2 % (3.8-10.2); NEUT % 48.7 % (42.8-82.8); PLATELET COUNT 149 K/MM3 (134-434); RBC 2.61 M/mm3 (3.60-5.2); RDW 15.6 % (11.6-15.6); WHITE BLOOD COUNT 5.1 K/mm3 (4.0-10.0)
[2019-09-20 18:24] LABS: ALBUMIN 2.3 g/dl (3.4-5.0); BILIRUBIN,TOTAL 0.6 mg/dL (0.2-1); CALCIUM 7.9 mg/dL (8.5-10.1); CREATININE 3.6 mg/dL (0.55-1.3); MAGNESIUM 1.6 mg/dL (1.8-2.4); POTASSIUM 3.4 mmol/L (3.5-5.1); TOT PROT 5.9 g/dl (6.4-8.2)
[2019-09-20] MEDS: ATORVASTATIN CA 40 MG TABLET (FP) PO SCH (22:32)
[2019-09-21] MEDS ORDERED: PIPERACILLIN/TAZOBACTAM 2.25 GM VIAL IVPB ONE ×3 (02:38→20:07)
[2019-09-21] MEDS ORDERED: DEXTROSE 5%-WATER - 50 ML IVPB ONE ×3 (02:38→20:07)
[2019-09-21] MEDS: PIPERACILLIN/TAZOB 2.25 GM 2.25 GM in DEXTROSE 5%-WATER - 50 ML IVPB SCH ×4 (02:54→20:09)
[2019-09-21] MEDS ORDERED: LABETALOL HCL 100 MG TABLET (FP) ONE ×3 (06:28→21:41)
[2019-09-21] MEDS: LABETALOL HCL 200 MG TABLET (FP) PO SCH ×3 (06:41→21:43)
[2019-09-21] MEDS: LEVOTHYROXINE 200 MCG, LEVOTHYROXINE 25 MCG PO SCH (06:41)
[2019-09-21] MEDS: INSULIN SLIDING SCALE (NOVOLOG) 1 VIAL SQ SCH (06:43)
[2019-09-21] MEDS ORDERED: PT OWN MED DRAWER 7, Y5N ONE (09:11)
[2019-09-21] MEDS: PARoxetine HCL 20 MG TABLET PO SCH (09:22)
[2019-09-21] MEDS: MULTIVITAMINS (DAILY MVI) TABLET (FP) PO SCH (09:22)
[2019-09-21] MEDS: amLODIPine BESYLATE 10 MG TABLET (FP) PO SCH (09:22)
[2019-09-21 09:28] LABS: BASO % 0.4 % (0-2.0); HEMATOCRIT 23.9 % (32.4-45.2); HEMOGLOBIN 8.1 GM/dL (10.7-15.3); LYMPH % 49.8 % (8-40); MCH 30.3 pg (25.7-33.7); MEAN PLT VOLUME 7.9 fl (7.5-11.1); MONO % 6.7 % (3.8-10.2); NEUT % 43.1 % (42.8-82.8); PLATELET COUNT 154 K/MM3 (134-434); RBC 2.69 M/mm3 (3.60-5.2); RDW 15.7 % (11.6-15.6); WHITE BLOOD COUNT 5.9 K/mm3 (4.0-10.0)
[2019-09-21 10:05] LABS: ALBUMIN 2.5 g/dl (3.4-5.0); BILIRUBIN,TOTAL 0.4 mg/dL (0.2-1); BLOOD UREA NITROGEN 13.9 mg/dL (7-18); CALCIUM 7.8 mg/dL (8.5-10.1); CREATININE 4.3 mg/dL (0.55-1.3); MAGNESIUM 1.6 mg/dL (1.8-2.4); POTASSIUM 3.2 mmol/L (3.5-5.1); TOT PROT 6.3 g/dl (6.4-8.2)
--- NOTE | 2019-09-21 10:30 | PN ---
Progress Note, Physician History of Present Illness: no new issues - Current Medication List Current Medications: Active Medications Acetaminophen (Tylenol -) 650 mg PO Q6H PRN PRN Reason: Fever Or Pain Last Admin: 09/17/19 22:26 Dose: 650 mg Acetaminophen/Codeine Phosphate (Tylenol # 3 -) 1 tab PO Q4H PRN PRN Reason: PAIN LEVEL 4 - 6 Amlodipine Besylate (Norvasc -) 10 mg PO DAILY [facility] Last Admin: 09/21/19 09:22 Dose: 10 mg Atorvastatin Calcium (Lipitor -) 40 mg PO HS [facility] Last Admin: 09/20/19 22:32 Dose: 40 mg Epoetin Jamal (Procrit -) 10,000 unit IVPUSH ONCE ONE Stop: 09/21/19 14:24 Famotidine (Pepcid -) 20 mg PO Q2D [facility] Last Admin: 09/20/19 10:20 Dose: 20 mg Piperacillin Sod/Tazobactam (Sod 2.25 gm/ Dextrose) 50 mls @ 100 mls/hr IVPB Q8H-IV [facility]; Protocol Last Admin: 09/21/19 09:23 Dose: 100 mls/hr Sodium Chloride (Normal Saline -) 250 mls @ 3,000 mls/hr IV PRN PRN PRN Reason: Hypotension during Dialysis Stop: 09/21/19 14:23 Insulin Aspart (Novolog Vial Sliding Scale -) 1 vial SQ DAILY@0700 [facility]; Protocol Last Admin: 09/21/19 06:43 Dose: Not Given Labetalol HCl (Normodyne -) 200 mg PO TID [facility] Last Admin: 09/21/19 06:41 Dose: 200 mg Levothyroxine Sodium 200 mcg/ (Levothyroxine Sodium 25 mcg) 225 mcg PO DAILY@ 0700 [facility] Last Admin: 09/21/19 06:41 Dose: 225 mcg Multivitamins/Minerals/Vitamin C (Tab-A-Vit -) 1 tab PO DAILY [facility] Last Admin: 09/21/19 09:22 Dose: 1 tab Paroxetine HCl (Paxil -) 40 mg PO DAILY [facility] Last Admin: 09/21/19 09:22 Dose: 40 mg - Objective Vital Signs: Vital Signs Temperature 98.2 F 09/21/19 06:00 Pulse Rate 69 09/21/19 06:00 Respiratory Rate 20 09/21/19 06:00 Blood Pressure 144/72 09/21/19 06:00 O2 Sat by Pulse Oximetry (%) 94 L 09/20/19 21:00 Constitutional: Yes: No Distress, Calm, Obese Cardiovascular: Yes: S1, S2 Respiratory: Yes: Regular, CTA Bilaterally Gastrointestinal: Yes: Normal Bowel Sounds, Soft Musculoskeletal: Yes: WNL Extremities: Yes: WNL Neurological: Yes: Alert, Oriented Psychiatric: Yes: Alert, Oriented Labs: CBC, BMP 09/21/19 09:13 09/21/19 09:13 INR, PTT INR 0.99 (0.83-1.09) 09/05/19 13:45 Assessment/Plan Problem List - Problems (1) LUCY (acute kidney injury) Code(s): N17.9 - ACUTE KIDNEY FAILURE, UNSPECIFIED (2) AMS (altered mental status) Code(s): R41.82 - ALTERED MENTAL STATUS, UNSPECIFIED (3) Acute metabolic encephalopathy Code(s): G93.41 - METABOLIC ENCEPHALOPATHY (4) Acute respiratory failure Code(s): J96.00 - ACUTE RESPIRATORY FAILURE, UNSP W HYPOXIA OR HYPERCAPNIA (5) Anemia Code(s): D64.9 - ANEMIA, UNSPECIFIED (6) COPD (chronic obstructive pulmonary disease) Code(s): J44.9 - CHRONIC OBSTRUCTIVE PULMONARY DISEASE, UNSPECIFIED (7) Diabetes Code(s): E11.9 - TYPE 2 DIABETES MELLITUS WITHOUT COMPLICATIONS (8) HTN (hypertension) Code(s): I10 - ESSENTIAL (PRIMARY) HYPERTENSION (9) Hypercapnic respiratory failure Code(s): J96.92 - RESPIRATORY FAILURE, UNSPECIFIED WITH HYPERCAPNIA (10) Hypothermia Code(s): T68.XXXA - HYPOTHERMIA, INITIAL ENCOUNTER (11) Morbid obesity Code(s): E66.01 - MORBID (SEVERE) OBESITY DUE TO EXCESS CALORIES (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
[2019-09-21] MEDS ORDERED: POTASSIUM CHLORIDE TABS 20 MEQ TABLET.ER (FP) PO ONE (14:12)
[2019-09-21] MEDS ORDERED: MAGNESIUM OXIDE 400 MG TABLET (FP) PO ONE (14:12)
[2019-09-21] MEDS ORDERED: EPOETIN ALFA 2,000 UNIT/1 ML VIAL IVPUSH ONE (14:23)
--- NOTE | 2019-09-21 15:01 | PN ---
Physical Exam: SUBJECTIVE: Patient seen and examined at the bedside. sitting up, no oxygen, stable oxygen sats on room air. she denies any shortness of breath. wants to go home and explained to her again that we are waiting for a dialysis center to accept her. OBJECTIVE: Patient is a 54 year old female with a significant past medical history of hypertension, hyperlipidemia, diabetes, COPD, anemia, thyroid cancer 6 years ago (no prior admission to [facility]). Patient brought into the ED for altered mental status, acute shortness of breath, metabolic acidosis. She was found to have an elevated TSH, low t4 and hypothermic ([id number] mariana hugger). on admission had renal failure with a creat of 7.7, bun of 65, mag 1.6, elevated ast/alt and now on dialysis. She is pending outpatient dialysis center acceptance as she is hep b+. Vital Signs Period Temp Pulse Resp BP Sys/Amos Pulse Ox Last 24 Hr 97.8 F-98.2 F 65-69 18-20 135-144/55-72 94-96 GENERAL: The patient is awake, alert, calm and in no acute distress. HEAD: Normal with no signs of trauma. EYES: PERRL, extraocular movements intact, sclera anicteric, conjunctiva clear. No ptosis. ENT: Ears normal, nares patent, oropharynx clear without exudates, moist mucous membranes. NECK: Trachea midline, full range of motion, supple. LUNGS: left lung with fine crackles, right lung clear, stable oxygen saturations HEART: Regular rate and rhythm ABDOMEN: Soft, nontender, nondistended, normoactive bowel sounds, no guarding EXTREMITIES: no edema NEUROLOGICAL: awake, alert, cooperative, anxious at times. PSYCH: Normal mood, normal affect. SKIN: Warm, dry, normal turgor, no rashes or lesions noted Laboratory Results - last 24 hr 09/20/19 09/20/19 09/21/19 16:20 16:20 06:42 WBC 5.1 RBC 2.61 L Hgb 7.8 L Hct 23.8 L MCV 91.0 MCH 30.0 MCHC 33.0 RDW 15.6 Plt Count 149 MPV 8.5 Absolute Neuts (auto) 2.5 Neutrophils % 48.7 Lymphocytes % 44.8 H Monocytes % 6.2 Eosinophils % 0.0 Basophils % 0.3 Nucleated RBC % 0 Sodium 139 Potassium 3.4 L Chloride 102 Carbon Dioxide 31 Anion Gap 7 L BUN 11.0 Creatinine 3.6 H Est GFR (CKD-EPI)AfAm 15.94 Est GFR (CKD-EPI)NonAf 13.76 POC Glucometer 108 Random Glucose 107 H Calcium 7.9 L Magnesium 1.6 L Total Bilirubin 0.6 AST 46 H ALT 36 Alkaline Phosphatase 307 H Total Protein 5.9 L Albumin 2.3 L 09/21/19 09/21/19 09:13 09:13 WBC 5.9 RBC 2.69 L Hgb 8.1 L Hct 23.9 L MCV 89.0 MCH 30.3 MCHC 34.0 RDW 15.7 H Plt Count 154 MPV 7.9 Absolute Neuts (auto) 2.6 Neutrophils % 43.1 Lymphocytes % 49.8 H Monocytes % 6.7 Eosinophils % 0.0 Basophils % 0.4 Nucleated RBC % 0 Sodium 138 Potassium 3.2 L Chloride 102 Carbon Dioxide 31 Anion Gap 5 L BUN 13.9 Creatinine 4.3 H Est GFR (CKD-EPI)AfAm 12.86 Est GFR (CKD-EPI)NonAf 11.10 POC Glucometer Random Glucose 102 Calcium 7.8 L Magnesium 1.6 L Total Bilirubin 0.4 AST 40 H ALT 35 Alkaline Phosphatase 312 H Total Protein 6.3 L Albumin 2.5 L Active Medications Generic Name Dose Route Start Last Admin Trade Name Freq PRN Reason Stop Dose Admin Acetaminophen 650 mg 09/16/19 15:24 09/17/19 22:26 Tylenol - PO 650 mg Q6H PRN Administration Fever Or Pain Acetaminophen/Codeine Phosphate 1 tab 09/16/19 15:24 Tylenol # 3 - PO Q4H PRN PAIN LEVEL 4 - 6 Amlodipine Besylate 10 mg 09/17/19 10:00 09/21/19 09:22 Norvasc - PO 10 mg DAILY [facility] Administration Atorvastatin Calcium 40 mg 09/16/19 22:00 09/20/19 22:32 Lipitor - PO 40 mg HS [facility] Administration Epoetin Jamal 10,000 unit 09/21/19 14:23 Procrit - IVPUSH 09/21/19 14:24 ONCE ONE Famotidine 20 mg 09/18/19 10:00 09/20/19 10:20 Pepcid - PO 20 mg Q2D [facility] Administration Piperacillin Sod/Tazobactam 50 mls @ 100 mls/hr 09/17/19 13:00 09/21/19 09:23 Sod 2.25 gm/ Dextrose IVPB 100 mls/hr Q8H-IV [facility] Administration Protocol Sodium Chloride 250 mls @ 3,000 mls/hr 09/20/19 14:23 Normal Saline - IV 09/21/19 14:23 PRN PRN Hypotension during Dialysis Insulin Aspart 1 vial 09/20/19 11:06 09/21/19 06:43 Novolog Vial Sliding Scale - SQ Not Given DAILY@0700 [facility] Protocol Labetalol HCl 200 mg 09/16/19 22:00 09/21/19 14:41 Normodyne - PO 200 mg TID [facility] Administration Levothyroxine Sodium 200 mcg/ 225 mcg 09/17/19 07:00 09/21/19 06:41 Levothyroxine Sodium 25 mcg PO 225 mcg DAILY@0700 [facility] Administration Multivitamins/Minerals/Vitamin C 1 tab 09/19/19 10:00 09/21/19 09:22 Tab-A-Vit - PO 1 tab DAILY [facility] Administration Paroxetine HCl 40 mg 09/17/19 10:00 09/21/19 09:22 Paxil - PO 40 mg DAILY [facility] Administration ASSESSMENT/PLAN: Problem List - Problems (1) Fever and chills Assessment/Plan: resolved. blood cultures negative lactic acid within normal limits chest xray with congestion and left base infiltrate, fluid/atelectasis at left base tolerating room air currently will monitor, added incentive spriometer Code(s): R50.9 - FEVER, UNSPECIFIED (2) AV fistula Assessment/Plan: s/p AV Fistula +bruit, thrill+ left arm precautions Code(s): I77.0 - ARTERIOVENOUS FISTULA, ACQUIRED (3) Acute metabolic encephalopathy Assessment/Plan: resolved. patient deemed safe to make her own medical decisions by psyche. Code(s): G93.41 - METABOLIC ENCEPHALOPATHY (4) Myxedema coma Assessment/Plan: mental status improved Novolog SS coverage being followed by linoleum installer On Prednisone 10mg taper (completed) on discharge as per endodrine- Pt go go home on LT4 225 repeat TFT as an outpt. BGM daily as she has been having bgms <150 Code(s): E03.5 - MYXEDEMA COMA (5) Hypercapnic respiratory failure Assessment/Plan: Intubated on admission, extubated on 09/03/19, now room air with prn oxygen Code(s): J96.92 - RESPIRATORY FAILURE, UNSPECIFIED WITH HYPERCAPNIA (6) SOB (shortness of breath) Assessment/Plan: s/p intubation, on 2 liters nc Code(s): R06.02 - SHORTNESS OF BREATH (7) Morbid obesity Assessment/Plan: outpatient follow up as outpatient, dietary following. Code(s): E66.01 - MORBID (SEVERE) OBESITY DUE TO EXCESS CALORIES (8) AMS (altered mental status) Assessment/Plan: see acute metabolic encephalopathy Code(s): R41.82 - ALTERED MENTAL STATUS, UNSPECIFIED (9) Acute renal failure Assessment/Plan: dialysis per renal via shiley av fistula to be used when cleared by vascular Code(s): N17.9 - ACUTE KIDNEY FAILURE, UNSPECIFIED (10) Metabolic acidosis Assessment/Plan: on prednisone taper for possible adrenal insufficiency Code(s): E87.2 - ACIDOSIS (11) Diabetes Assessment/Plan: bgms in am once daily as bgms stable followed by linoleum installer Code(s): E11.9 - TYPE 2 DIABETES MELLITUS WITHOUT COMPLICATIONS (12) Hypothermia Assessment/Plan: resolved Code(s): T68.XXXA - HYPOTHERMIA, INITIAL ENCOUNTER (13) Anemia Assessment/Plan: received 1 PRBC since admission Hgb stable continue to monitor Code(s): D64.9 - ANEMIA, UNSPECIFIED Qualifiers: Other causes of anemia: chronic disease, other (14) HLD (hyperlipidemia) Code(s): E78.5 - HYPERLIPIDEMIA, UNSPECIFIED (15) Poor appetite Assessment/Plan: continues to have poor PO intake add nepro daily started on multivitamin Code(s): R63.0 - ANOREXIA (16) DVT prophylaxis Assessment/Plan: on heparin tid Code(s): Z29.9 - ENCOUNTER FOR PROPHYLACTIC MEASURES, UNSPECIFIED Visit type - Emergency Visit Emergency Visit: Yes ED Registration Date: 08/25/19 Care time: The patient presented to the Emergency Department on the above date and was hospitalized for further evaluation of their emergent condition. - New Patient This patient is new to me today: No - Critical Care Critical Care patient: No - Discharge Referral Referred to [facility] No
[2019-09-21] MEDS ORDERED: SODIUM CHLORIDE 250 ML IV PRN (17:00)
[2019-09-21] MEDS ORDERED: EPOETIN ALFA 10,000 UNIT/1 ML VIAL IVPUSH ONE (17:00)
--- NOTE | 2019-09-21 19:35 | PN ---
Progress Note, Physician History of Present Illness: Pt seen and examined at bedside. She is awake and alert. She denies shortness of breath. - Current Medication List Current Medications: Active Medications Acetaminophen (Tylenol -) 650 mg PO Q6H PRN PRN Reason: Fever Or Pain Last Admin: 09/17/19 22:26 Dose: 650 mg Amlodipine Besylate (Norvasc -) 10 mg PO DAILY [facility] Last Admin: 09/21/19 09:22 Dose: 10 mg Atorvastatin Calcium (Lipitor -) 40 mg PO HS [facility] Last Admin: 09/20/19 22:32 Dose: 40 mg Famotidine (Pepcid -) 20 mg PO Q2D [facility] Last Admin: 09/20/19 10:20 Dose: 20 mg Piperacillin Sod/Tazobactam (Sod 2.25 gm/ Dextrose) 50 mls @ 100 mls/hr IVPB Q8H-IV [facility]; Protocol Last Admin: 09/21/19 17:43 Dose: Not Given Insulin Aspart (Novolog Vial Sliding Scale -) 1 vial SQ DAILY@0700 [facility]; Protocol Last Admin: 09/21/19 06:43 Dose: Not Given Labetalol HCl (Normodyne -) 200 mg PO TID [facility] Last Admin: 09/21/19 14:41 Dose: 200 mg Levothyroxine Sodium 200 mcg/ (Levothyroxine Sodium 25 mcg) 225 mcg PO DAILY@ 0700 [facility] Last Admin: 09/21/19 06:41 Dose: 225 mcg Multivitamins/Minerals/Vitamin C (Tab-A-Vit -) 1 tab PO DAILY [facility] Last Admin: 09/21/19 09:22 Dose: 1 tab Paroxetine HCl (Paxil -) 40 mg PO DAILY [facility] Last Admin: 09/21/19 09:22 Dose: 40 mg - Objective Vital Signs: Vital Signs Temperature 98.1 F 09/21/19 16:00 Pulse Rate 74 09/21/19 16:35 Respiratory Rate 18 09/21/19 16:35 Blood Pressure 120/73 09/21/19 16:35 O2 Sat by Pulse Oximetry (%) 96 09/21/19 09:20 Constitutional: Yes: Calm Eyes: Yes: Conjunctiva Clear HENT: Yes: Atraumatic Neck: Yes: Supple Cardiovascular: Yes: S1, S2 Respiratory: Yes: CTA Bilaterally Gastrointestinal: Yes: Soft Genitourinary: Yes: WNL Musculoskeletal: Yes: WNL Edema: No Neurological: Yes: Oriented Psychiatric: Yes: Oriented Labs: CBC, BMP 09/21/19 09:13 09/21/19 09:13 INR, PTT INR 0.99 (0.83-1.09) 09/05/19 13:45 Problem List - Problems (1) AMS (altered mental status) Code(s): R41.82 - ALTERED MENTAL STATUS, UNSPECIFIED (2) Acute metabolic encephalopathy Code(s): G93.41 - METABOLIC ENCEPHALOPATHY (3) Acute renal failure Code(s): N17.9 - ACUTE KIDNEY FAILURE, UNSPECIFIED (4) Diabetes Code(s): E11.9 - TYPE 2 DIABETES MELLITUS WITHOUT COMPLICATIONS (5) Hypercapnic respiratory failure Code(s): J96.92 - RESPIRATORY FAILURE, UNSPECIFIED WITH HYPERCAPNIA (6) Hypothermia Code(s): T68.XXXA - HYPOTHERMIA, INITIAL ENCOUNTER (7) Morbid obesity Code(s): E66.01 - MORBID (SEVERE) OBESITY DUE TO EXCESS CALORIES Assessment/Plan Current Medications Generic Name Dose Route Start Last Admin Trade Name Freq PRN Reason Stop Dose Admin Acetaminophen 650 mg 09/16/19 15:24 09/17/19 22:26 Tylenol - PO 650 mg Q6H PRN Administration Fever Or Pain Amlodipine Besylate 10 mg 09/17/19 10:00 09/21/19 09:22 Norvasc - PO 10 mg DAILY [facility] Administration Atorvastatin Calcium 40 mg 09/16/19 22:00 09/20/19 22:32 Lipitor - PO 40 mg HS [facility] Administration Famotidine 20 mg 09/18/19 10:00 09/20/19 10:20 Pepcid - PO 20 mg Q2D [facility] Administration Piperacillin Sod/Tazobactam 50 mls @ 100 mls/hr 09/17/19 13:00 09/21/19 17:43 Sod 2.25 gm/ Dextrose IVPB Not Given Q8H-IV [facility] Protocol Insulin Aspart 1 vial 09/20/19 11:06 09/21/19 06:43 Novolog Vial Sliding Scale - SQ Not Given DAILY@0700 [facility] Protocol Labetalol HCl 200 mg 09/16/19 22:00 09/21/19 14:41 Normodyne - PO 200 mg TID [facility] Administration Levothyroxine Sodium 200 mcg/ 225 mcg 09/17/19 07:00 09/21/19 06:41 Levothyroxine Sodium 25 mcg PO 225 mcg DAILY@0700 [facility] Administration Multivitamins/Minerals/Vitamin C 1 tab 09/19/19 10:00 09/21/19 09:22 Tab-A-Vit - PO 1 tab DAILY [facility] Administration Paroxetine HCl 40 mg 09/17/19 10:00 09/21/19 09:22 Paxil - PO 40 mg DAILY [facility] Administration Impression 1. ESRD 2. fluid overload 3. acute respiratory failure 4. hypothyroidism with tsh of 100 5. 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 urine tox pos for mdma 7. mild rhabdo 8. hepatitis B Plan - HD today - monitor 24 hr urine for volume - check daily choir accompanist for next few days - renal diet - fistula with thrill and bruit
[2019-09-21] MEDS: ATORVASTATIN CA 40 MG TABLET (FP) PO SCH (21:42)
[2019-09-22] MEDS ORDERED: DEXTROSE 5%-WATER - 50 ML IVPB ONE ×2 (02:47→09:09)
[2019-09-22] MEDS ORDERED: PIPERACILLIN/TAZOBACTAM 2.25 GM VIAL IVPB ONE ×2 (02:47→09:09)
[2019-09-22] MEDS: PIPERACILLIN/TAZOB 2.25 GM 2.25 GM in DEXTROSE 5%-WATER - 50 ML IVPB SCH ×2 (02:58→10:39)
[2019-09-22] MEDS: LABETALOL HCL 200 MG TABLET (FP) PO SCH ×3 (06:32→21:39)
[2019-09-22] MEDS: INSULIN SLIDING SCALE (NOVOLOG) 1 VIAL SQ SCH (06:33)
[2019-09-22] MEDS: LEVOTHYROXINE 200 MCG, LEVOTHYROXINE 25 MCG PO SCH (06:33)
[2019-09-22 09:08] LABS: BASO % 0.4 % (0-2.0); HEMATOCRIT 25.3 % (32.4-45.2); HEMOGLOBIN 8.4 GM/dL (10.7-15.3); LYMPH % 55.5 % (8-40); MCH 29.9 pg (25.7-33.7); MCHC 33.3 g/dl (32.0-36.0); MEAN CELL VOLUME 89.7 fl (80-96); MEAN PLT VOLUME 8.6 fl (7.5-11.1); MONO % 7.1 % (3.8-10.2); PLATELET COUNT 154 K/MM3 (134-434); RBC 2.82 M/mm3 (3.60-5.2); RDW 15.6 % (11.6-15.6); WHITE BLOOD COUNT 6.2 K/mm3 (4.0-10.0)
[2019-09-22] MEDS ORDERED: PT OWN MED DRAWER 7, Y5N ONE (09:09)
[2019-09-22 09:25] LABS: ALBUMIN 2.6 g/dl (3.4-5.0); BILIRUBIN,TOTAL 0.4 mg/dL (0.2-1); BLOOD UREA NITROGEN 9.4 mg/dL (7-18); CREATININE 3.9 mg/dL (0.55-1.3); MAGNESIUM 1.7 mg/dL (1.8-2.4); POTASSIUM 3.5 mmol/L (3.5-5.1); TOT PROT 6.5 g/dl (6.4-8.2)
[2019-09-22] MEDS: MULTIVITAMINS (DAILY MVI) TABLET (FP) PO SCH (10:39)
[2019-09-22] MEDS: PARoxetine HCL 20 MG TABLET PO SCH (10:39)
[2019-09-22] MEDS: amLODIPine BESYLATE 10 MG TABLET (FP) PO SCH (10:39)
[2019-09-22] MEDS: FAMOTIDINE 20 MG TABLET PO SCH (10:40)
--- NOTE | 2019-09-22 12:59 | PN ---
Physical Exam: SUBJECTIVE: Patient seen and examined at the bedside. in no acute distress. denies any malaise, pain or discomfort. OBJECTIVE: Patient is a 54 year old female with a significant past medical history of hypertension, hyperlipidemia, diabetes, COPD, anemia, thyroid cancer 6 years ago (no prior admission to [facility]). Patient brought into the ED for altered mental status, acute shortness of breath, metabolic acidosis. She was found to have an elevated TSH, low t4 and hypothermic (96f-97-on mariana hugger). on admission had renal failure with a creat of 7.7, bun of 65, mag 1.6, elevated ast/alt and now on dialysis. She is pending outpatient dialysis center acceptance as she is hep b+. Vital Signs Period Temp Pulse Resp BP Sys/Amos Pulse Ox Last 24 Hr 97.8 F-98.8 F 61-76 18-18 120-153/55-85 95 GENERAL: The patient is awake, alert, calm and in no acute distress. HEAD: Normal with no signs of trauma. EYES: PERRL, extraocular movements intact, sclera anicteric, conjunctiva clear. No ptosis. ENT: Ears normal, nares patent, oropharynx clear without exudates, moist mucous membranes. NECK: Trachea midline, full range of motion, supple. LUNGS: clear to auscultation bilaterally, stable oxygen saturations HEART: Regular rate and rhythm ABDOMEN: Soft, nontender, nondistended, normoactive bowel sounds, no guarding EXTREMITIES: no edema NEUROLOGICAL: awake, alert, cooperative, anxious at times. PSYCH: Normal mood, normal affect. SKIN: Warm, dry, normal turgor, no rashes or lesions noted Laboratory Results - last 24 hr 09/22/19 09/22/19 09/22/19 06:10 08:35 08:35 WBC 6.2 RBC 2.82 L Hgb 8.4 L Hct 25.3 L MCV 89.7 MCH 29.9 MCHC 33.3 RDW 15.6 Plt Count 154 MPV 8.6 Absolute Neuts (auto) 2.3 Neutrophils % 37.0 L Lymphocytes % 55.5 H Monocytes % 7.1 Eosinophils % 0.0 Basophils % 0.4 Nucleated RBC % 0 Sodium 139 Potassium 3.5 Chloride 103 Carbon Dioxide 29 Anion Gap 8 BUN 9.4 Creatinine 3.9 H Est GFR (CKD-EPI)AfAm 14.47 Est GFR (CKD-EPI)NonAf 12.49 POC Glucometer 91 Random Glucose 90 Calcium 8.0 L Magnesium 1.7 L Total Bilirubin 0.4 AST 36 ALT 33 Alkaline Phosphatase 297 H Total Protein 6.5 Albumin 2.6 L Active Medications Generic Name Dose Route Start Last Admin Trade Name Freq PRN Reason Stop Dose Admin Acetaminophen 650 mg 09/16/19 15:24 09/17/19 22:26 Tylenol - PO 650 mg Q6H PRN Administration Fever Or Pain Amlodipine Besylate 10 mg 09/17/19 10:00 09/22/19 10:39 Norvasc - PO 10 mg DAILY ZOE Administration Atorvastatin Calcium 40 mg 09/16/19 22:00 09/21/19 21:42 Lipitor - PO 40 mg HS ZOE Administration Famotidine 20 mg 09/18/19 10:00 09/22/19 10:40 Pepcid - PO 20 mg Q2D ZOE Administration Piperacillin Sod/Tazobactam 50 mls @ 100 mls/hr 09/17/19 13:00 09/22/19 10:39 Sod 2.25 gm/ Dextrose IVPB 100 mls/hr Q8H-IV ZOE Administration Protocol Insulin Aspart 1 vial 09/20/19 11:06 09/22/19 06:33 Novolog Vial Sliding Scale - SQ Not Given DAILY@0700 [facility] Protocol Labetalol HCl 200 mg 09/16/19 22:00 09/22/19 06:32 Normodyne - PO 200 mg TID ZOE Administration Levothyroxine Sodium 200 mcg/ 225 mcg 09/17/19 07:00 09/22/19 06:33 Levothyroxine Sodium 25 mcg PO 225 mcg DAILY@0700 [facility] Administration Multivitamins/Minerals/Vitamin C 1 tab 09/19/19 10:00 09/22/19 10:39 Tab-A-Vit - PO 1 tab DAILY [facility]OE Administration Paroxetine HCl 40 mg 09/17/19 10:00 09/22/19 10:39 Paxil - PO 40 mg DAILY ZOE Administration ASSESSMENT/PLAN: Problem List - Problems (1) Fever and chills Assessment/Plan: resolved. blood cultures negative lactic acid within normal limits ID stopping zosyn and placing patient on oral antibiotics Code(s): R50.9 - FEVER, UNSPECIFIED (2) AV fistula Assessment/Plan: s/p AV Fistula +bruit, thrill+ left arm precautions dialysis yesterday Code(s): I77.0 - ARTERIOVENOUS FISTULA, ACQUIRED (3) Acute metabolic encephalopathy Assessment/Plan: resolved. patient deemed safe to make her own medical decisions by psyche. Code(s): G93.41 - METABOLIC ENCEPHALOPATHY (4) Myxedema coma Assessment/Plan: mental status improved Novolog SS coverage being followed by biodiesel technology manager On Prednisone 10mg taper (completed) on discharge as per endodrine- Pt go go home on LT4 225 repeat TFT as an outpt. BGM daily as she has been having bgms <150 Code(s): E03.5 - MYXEDEMA COMA (5) Hypercapnic respiratory failure Assessment/Plan: Intubated on admission, extubated on 09/03/19, now room air with prn oxygen Code(s): J96.92 - RESPIRATORY FAILURE, UNSPECIFIED WITH HYPERCAPNIA (6) SOB (shortness of breath) Assessment/Plan: s/p intubation, on 2 liters nc Code(s): R06.02 - SHORTNESS OF BREATH (7) Morbid obesity Assessment/Plan: outpatient follow up as outpatient, dietary following. Code(s): E66.01 - MORBID (SEVERE) OBESITY DUE TO EXCESS CALORIES (8) AMS (altered mental status) Assessment/Plan: see acute metabolic encephalopathy Code(s): R41.82 - ALTERED MENTAL STATUS, UNSPECIFIED (9) Acute renal failure Assessment/Plan: dialysis per renal via shiley av fistula to be used when cleared by vascular Code(s): N17.9 - ACUTE KIDNEY FAILURE, UNSPECIFIED (10) Metabolic acidosis Assessment/Plan: on prednisone taper for possible adrenal insufficiency Code(s): E87.2 - ACIDOSIS (11) Diabetes Assessment/Plan: bgms in am once daily as bgms stable followed by biodiesel technology manager Code(s): E11.9 - TYPE 2 DIABETES MELLITUS WITHOUT COMPLICATIONS (12) Hypothermia Assessment/Plan: resolved Code(s): T68.XXXA - HYPOTHERMIA, INITIAL ENCOUNTER (13) Anemia Assessment/Plan: received 1 PRBC since admission Hgb stable continue to monitor Code(s): D64.9 - ANEMIA, UNSPECIFIED Qualifiers: Other causes of anemia: chronic disease, other (14) HLD (hyperlipidemia) Code(s): E78.5 - HYPERLIPIDEMIA, UNSPECIFIED (15) Poor appetite Assessment/Plan: on nepro daily with a multivitamin Code(s): R63.0 - ANOREXIA (16) DVT prophylaxis Assessment/Plan: on heparin tid Code(s): Z29.9 - ENCOUNTER FOR PROPHYLACTIC MEASURES, UNSPECIFIED Visit type - Emergency Visit Emergency Visit: Yes ED Registration Date: 08/25/19 Care time: The patient presented to the Emergency Department on the above date and was hospitalized for further evaluation of their emergent condition. - New Patient This patient is new to me today: No - Critical Care Critical Care patient: No - Discharge Referral Referred to [facility] Med P.C.: No
--- NOTE | 2019-09-22 13:13 | PN ---
Progress Note, Physician History of Present Illness: stable no new issues - Current Medication List Current Medications: Active Medications Acetaminophen (Tylenol -) 650 mg PO Q6H PRN PRN Reason: Fever Or Pain Last Admin: 09/17/19 22:26 Dose: 650 mg Amlodipine Besylate (Norvasc -) 10 mg PO DAILY [facility] Last Admin: 09/22/19 10:39 Dose: 10 mg Atorvastatin Calcium (Lipitor -) 40 mg PO HS [facility] Last Admin: 09/21/19 21:42 Dose: 40 mg Famotidine (Pepcid -) 20 mg PO Q2D [facility] Last Admin: 09/22/19 10:40 Dose: 20 mg Insulin Aspart (Novolog Vial Sliding Scale -) 1 vial SQ DAILY@0700 [facility]; Protocol Last Admin: 09/22/19 06:33 Dose: Not Given Labetalol HCl (Normodyne -) 200 mg PO TID [facility] Last Admin: 09/22/19 06:32 Dose: 200 mg Levothyroxine Sodium 200 mcg/ (Levothyroxine Sodium 25 mcg) 225 mcg PO DAILY@ 0700 [facility] Last Admin: 09/22/19 06:33 Dose: 225 mcg Multivitamins/Minerals/Vitamin C (Tab-A-Vit -) 1 tab PO DAILY [facility] Last Admin: 09/22/19 10:39 Dose: 1 tab Paroxetine HCl (Paxil -) 40 mg PO DAILY [facility] Last Admin: 09/22/19 10:39 Dose: 40 mg - Objective Vital Signs: Vital Signs Temperature 98.2 F 09/22/19 10:35 Pulse Rate 62 09/22/19 10:35 Respiratory Rate 18 09/22/19 10:35 Blood Pressure 138/69 09/22/19 10:35 O2 Sat by Pulse Oximetry (%) 96 09/22/19 10:35 Constitutional: Yes: No Distress, Calm Cardiovascular: Yes: S1, S2 Respiratory: Yes: Regular, CTA Bilaterally Gastrointestinal: Yes: Normal Bowel Sounds, Soft Musculoskeletal: Yes: WNL Extremities: Yes: WNL Neurological: Yes: Alert, Oriented Psychiatric: Yes: Alert, Oriented Labs: CBC, BMP 09/22/19 08:35 09/22/19 08:35 INR, PTT INR 0.99 (0.83-1.09) 09/05/19 13:45 Assessment/Plan Problem List - Problems (1) LUCY (acute kidney injury) Code(s): N17.9 - ACUTE KIDNEY FAILURE, UNSPECIFIED (2) AMS (altered mental status) Code(s): R41.82 - ALTERED MENTAL STATUS, UNSPECIFIED (3) Acute metabolic encephalopathy Code(s): G93.41 - METABOLIC ENCEPHALOPATHY (4) Acute respiratory failure Code(s): J96.00 - ACUTE RESPIRATORY FAILURE, UNSP W HYPOXIA OR HYPERCAPNIA (5) Anemia Code(s): D64.9 - ANEMIA, UNSPECIFIED (6) COPD (chronic obstructive pulmonary disease) Code(s): J44.9 - CHRONIC OBSTRUCTIVE PULMONARY DISEASE, UNSPECIFIED (7) Diabetes Code(s): E11.9 - TYPE 2 DIABETES MELLITUS WITHOUT COMPLICATIONS (8) HTN (hypertension) Code(s): I10 - ESSENTIAL (PRIMARY) HYPERTENSION (9) Hypercapnic respiratory failure Code(s): J96.92 - RESPIRATORY FAILURE, UNSPECIFIED WITH HYPERCAPNIA (10) Hypothermia Code(s): T68.XXXA - HYPOTHERMIA, INITIAL ENCOUNTER (11) Morbid obesity Code(s): E66.01 - MORBID (SEVERE) OBESITY DUE TO EXCESS CALORIES (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 will stop abx and monitor
--- NOTE | 2019-09-22 19:25 | PN ---
Progress Note, Physician History of Present Illness: Pt seen and examined at bedside. She is awake and alert. She denies shortness of breath. - Current Medication List Current Medications: Active Medications Acetaminophen (Tylenol -) 650 mg PO Q6H PRN PRN Reason: Fever Or Pain Last Admin: 09/17/19 22:26 Dose: 650 mg Amlodipine Besylate (Norvasc -) 10 mg PO DAILY [facility] Last Admin: 09/22/19 10:39 Dose: 10 mg Atorvastatin Calcium (Lipitor -) 40 mg PO HS [facility] Last Admin: 09/21/19 21:42 Dose: 40 mg Famotidine (Pepcid -) 20 mg PO Q2D [facility] Last Admin: 09/22/19 10:40 Dose: 20 mg Insulin Aspart (Novolog Vial Sliding Scale -) 1 vial SQ DAILY@0700 [facility]; Protocol Last Admin: 09/22/19 06:33 Dose: Not Given Labetalol HCl (Normodyne -) 200 mg PO TID [facility] Last Admin: 09/22/19 14:41 Dose: 200 mg Levothyroxine Sodium 200 mcg/ (Levothyroxine Sodium 25 mcg) 225 mcg PO DAILY@ 0700 [facility] Last Admin: 09/22/19 06:33 Dose: 225 mcg Multivitamins/Minerals/Vitamin C (Tab-A-Vit -) 1 tab PO DAILY [facility] Last Admin: 09/22/19 10:39 Dose: 1 tab Paroxetine HCl (Paxil -) 40 mg PO DAILY [facility] Last Admin: 09/22/19 10:39 Dose: 40 mg - Objective Vital Signs: Vital Signs Temperature 98.2 F 09/22/19 15:02 Pulse Rate 68 09/22/19 15:02 Respiratory Rate 18 09/22/19 15:02 Blood Pressure 132/62 09/22/19 15:02 O2 Sat by Pulse Oximetry (%) 96 09/22/19 10:35 Constitutional: Yes: Calm Eyes: Yes: Conjunctiva Clear HENT: Yes: Atraumatic Neck: Yes: Supple Cardiovascular: Yes: S1, S2 Respiratory: Yes: CTA Bilaterally Gastrointestinal: Yes: Soft, Abdomen, Obese Genitourinary: Yes: WNL Musculoskeletal: Yes: WNL Edema: No Integumentary: Yes: Tattoos Neurological: Yes: Oriented Psychiatric: Yes: Oriented Labs: CBC, BMP 09/22/19 08:35 09/22/19 08:35 INR, PTT INR 0.99 (0.83-1.09) 09/05/19 13:45 Problem List - Problems (1) AMS (altered mental status) Code(s): R41.82 - ALTERED MENTAL STATUS, UNSPECIFIED (2) Acute metabolic encephalopathy Code(s): G93.41 - METABOLIC ENCEPHALOPATHY (3) Acute renal failure Code(s): N17.9 - ACUTE KIDNEY FAILURE, UNSPECIFIED (4) Diabetes Code(s): E11.9 - TYPE 2 DIABETES MELLITUS WITHOUT COMPLICATIONS (5) Hypercapnic respiratory failure Code(s): J96.92 - RESPIRATORY FAILURE, UNSPECIFIED WITH HYPERCAPNIA (6) Hypothermia Code(s): T68.XXXA - HYPOTHERMIA, INITIAL ENCOUNTER (7) Morbid obesity Code(s): E66.01 - MORBID (SEVERE) OBESITY DUE TO EXCESS CALORIES Assessment/Plan Current Medications Generic Name Dose Route Start Last Admin Trade Name Freq PRN Reason Stop Dose Admin Acetaminophen 650 mg 09/16/19 15:24 09/17/19 22:26 Tylenol - PO 650 mg Q6H PRN Administration Fever Or Pain Amlodipine Besylate 10 mg 09/17/19 10:00 09/22/19 10:39 Norvasc - PO 10 mg DAILY [facility]OE Administration Atorvastatin Calcium 40 mg 09/16/19 22:00 09/21/19 21:42 Lipitor - PO 40 mg HS ZOE Administration Famotidine 20 mg 09/18/19 10:00 09/22/19 10:40 Pepcid - PO 20 mg Q2D ZOE Administration Insulin Aspart 1 vial 09/20/19 11:06 09/22/19 06:33 Novolog Vial Sliding Scale - SQ Not Given DAILY@0700 [facility] Protocol Labetalol HCl 200 mg 09/16/19 22:00 09/22/19 14:41 Normodyne - PO 200 mg TID [facility]OE Administration Levothyroxine Sodium 200 mcg/ 225 mcg 09/17/19 07:00 09/22/19 06:33 Levothyroxine Sodium 25 mcg PO 225 mcg DAILY@0700 [facility] Administration Multivitamins/Minerals/Vitamin C 1 tab 09/19/19 10:00 09/22/19 10:39 Tab-A-Vit - PO 1 tab DAILY [facility]OE Administration Paroxetine HCl 40 mg 09/17/19 10:00 09/22/19 10:39 Paxil - PO 40 mg DAILY ZOE Administration Impression 1. ESRD 2. fluid overload 3. acute respiratory failure 4. hypothyroidism with tsh of 100 5. 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 urine tox pos for mdma 7. mild rhabdo 8. 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
[2019-09-22] MEDS ORDERED: LABETALOL HCL 100 MG TABLET (FP) ONE (21:22)
[2019-09-22] MEDS: ATORVASTATIN CA 40 MG TABLET (FP) PO SCH (21:39)
[2019-09-23] MEDS ORDERED: LABETALOL HCL 100 MG TABLET (FP) ONE ×3 (05:15→21:19)
[2019-09-23] MEDS: LEVOTHYROXINE 200 MCG, LEVOTHYROXINE 25 MCG PO SCH (06:10)
[2019-09-23] MEDS: LABETALOL HCL 200 MG TABLET (FP) PO SCH ×3 (06:10→21:43)
[2019-09-23] MEDS: INSULIN SLIDING SCALE (NOVOLOG) 1 VIAL SQ SCH (06:11)
[2019-09-23] MEDS: amLODIPine BESYLATE 10 MG TABLET (FP) PO SCH (09:09)
[2019-09-23] MEDS: MULTIVITAMINS (DAILY MVI) TABLET (FP) PO SCH (09:09)
[2019-09-23] MEDS: PARoxetine HCL 20 MG TABLET PO SCH (09:09)
--- NOTE | 2019-09-23 09:33 | PN ---
Progress Note (short form) - Note Progress Note: 54 year old female history of HTN, HLD, DM COPD, Anemia thyroid cancer. Patient came with ams and had CHF, renal failure , anemia . James was intubated, she was hypothermic. She is on sedation . Ganesh has ct head and there is mild dilation of ventricles. patient has fistula made yesterday on left arm. No new complaiing and waiting for placement NEUROLOGICAL EXAMINATION neck is supple , hypertensive, alert oriented x 3( knows her name where she is , is able to tell me today is september 06 but mistake on year) pupils reactive no face asymmetry moving all ext , generalized proximal weakness rest of neuro exam is not possible ct head reviewed and mild ventricular dilatation and this could be due to intercurrent illness Assessment/Plan4 year old female history of HTN, HLD, DM COPD, Anemia thyroid cancer. Patient came with ams and had CHF, renal failure , anemia . Plan: waiting for placement Thanking you so much Hill Hayden MD
--- NOTE | 2019-09-23 10:58 | PN ---
Progress Note (short form) - Note Progress Note: PULMONARY Denies shortness of breath, cough or wheezing. Vital Signs Period Temp Pulse Resp BP Sys/Amos Pulse Ox Last 24 Hr 97.9 F-98.5 F 65-69 18-20 122-150/50-72 96 Gen: NAD at rest Heart: RRR Lung: decreased breath sounds at the bases Abd: soft, nontender Ext: no edema CBC, BMP 09/22/19 08:35 09/22/19 08:35 Active Medications Acetaminophen (Tylenol -) 650 mg PO Q6H PRN PRN Reason: Fever Or Pain Last Admin: 09/17/19 22:26 Dose: 650 mg Amlodipine Besylate (Norvasc -) 10 mg PO DAILY [facility] Last Admin: 09/23/19 09:09 Dose: 10 mg Atorvastatin Calcium (Lipitor -) 40 mg PO HS [facility] Last Admin: 09/22/19 21:39 Dose: 40 mg Famotidine (Pepcid -) 20 mg PO Q2D [facility] Last Admin: 09/22/19 10:40 Dose: 20 mg Insulin Aspart (Novolog Vial Sliding Scale -) 1 vial SQ DAILY@0700 [facility]; Protocol Last Admin: 09/23/19 06:11 Dose: Not Given Labetalol HCl (Normodyne -) 200 mg PO TID [facility] Last Admin: 09/23/19 06:10 Dose: 200 mg Levothyroxine Sodium 200 mcg/ (Levothyroxine Sodium 25 mcg) 225 mcg PO DAILY@ 0700 [facility] Last Admin: 09/23/19 06:10 Dose: 225 mcg Multivitamins/Minerals/Vitamin C (Tab-A-Vit -) 1 tab PO DAILY [facility] Last Admin: 09/23/19 09:09 Dose: 1 tab Paroxetine HCl (Paxil -) 40 mg PO DAILY [facility] Last Admin: 09/23/19 09:09 Dose: 40 mg A/P Acute Hypercapneic Respiratory Failure improving Myxedema Coma resolved UTI treated Acute Kidney Injury requiring HD Volume Overload improving Pleural Effusions COPD DM Anemia - HD per renal - monitor urine output, creatinine - completed antibiotics - synthroid - inhaled bronchodilators - O2 to keep SpO2 >90% - PO as tolerated - DVT prophylaxis - d/c planning in progress
[2019-09-23] MEDS ORDERED: MAGNESIUM OXIDE 400 MG TABLET (FP) PO ONE (11:51)
--- NOTE | 2019-09-23 11:51 | PN ---
Physical Exam: SUBJECTIVE: Patient seen and examined. denies shortness of breath or malaise. tolerating room air. ambulates to bathroom w/o shortness of breath. OBJECTIVE: Patient is a 54 year old female with a significant past medical history of hypertension, hyperlipidemia, diabetes, COPD, anemia, thyroid cancer 6 years ago (no prior admission to [facility]). Patient brought into the ED for altered mental status, acute shortness of breath, metabolic acidosis. She was found to have an elevated TSH, low t4 and hypothermic (96f-97-on mariana hugger). on admission had renal failure with a creat of 7.7, bun of 65, mag 1.6, elevated ast/alt and now on dialysis. She is pending outpatient dialysis center acceptance as she is hep b+. Vital Signs Period Temp Pulse Resp BP Sys/Amos Pulse Ox Last 24 Hr 97.9 F-98.5 F 65-69 18-20 122-150/50-72 96 GENERAL: The patient is awake, alert, calm and in no acute distress. HEAD: Normal with no signs of trauma. EYES: PERRL, extraocular movements intact, sclera anicteric, conjunctiva clear. No ptosis. ENT: Ears normal, nares patent, oropharynx clear without exudates, moist mucous membranes. NECK: Trachea midline, full range of motion, supple. LUNGS: clear to auscultation bilaterally, stable oxygen saturations HEART: Regular rate and rhythm ABDOMEN: Soft, nontender, nondistended, normoactive bowel sounds, no guarding EXTREMITIES: no edema NEUROLOGICAL: awake, alert, cooperative, anxious at times. PSYCH: Normal mood, normal affect. SKIN: Warm, dry, normal turgor, no rashes or lesions noted Laboratory Results - last 24 hr 09/23/19 09/23/19 06:08 11:46 POC Glucometer 115 132 Active Medications Generic Name Dose Route Start Last Admin Trade Name Freq PRN Reason Stop Dose Admin Acetaminophen 650 mg 09/16/19 15:24 09/17/19 22:26 Tylenol - PO 650 mg Q6H PRN Administration Fever Or Pain Amlodipine Besylate 10 mg 09/17/19 10:00 09/23/19 09:09 Norvasc - PO 10 mg DAILY [facility] Administration Atorvastatin Calcium 40 mg 09/16/19 22:00 09/22/19 21:39 Lipitor - PO 40 mg HS [facility]OE Administration Famotidine 20 mg 09/18/19 10:00 09/22/19 10:40 Pepcid - PO 20 mg Q2D [facility] Administration Insulin Aspart 1 vial 09/20/19 11:06 09/23/19 06:11 Novolog Vial Sliding Scale - SQ Not Given DAILY@0700 [facility] Protocol Labetalol HCl 200 mg 09/16/19 22:00 09/23/19 06:10 Normodyne - PO 200 mg TID [facility] Administration Levothyroxine Sodium 200 mcg/ 225 mcg 09/17/19 07:00 09/23/19 06:10 Levothyroxine Sodium 25 mcg PO 225 mcg DAILY@0700 [facility] Administration Magnesium Oxide 400 mg 09/23/19 11:51 Mag-Ox - PO 09/23/19 11:52 ONCE ONE Multivitamins/Minerals/Vitamin C 1 tab 09/19/19 10:00 09/23/19 09:09 Tab-A-Vit - PO 1 tab DAILY [facility] Administration Paroxetine HCl 40 mg 09/17/19 10:00 09/23/19 09:09 Paxil - PO 40 mg DAILY [facility] Administration ASSESSMENT/PLAN: Problem List - Problems (1) Fever and chills Assessment/Plan: resolved. blood cultures negative lactic acid within normal limits monitor off antibiotics per ID Code(s): R50.9 - FEVER, UNSPECIFIED (2) AV fistula Assessment/Plan: s/p AV Fistula +bruit, thrill+ left arm precautions dialysis yesterday Code(s): I77.0 - ARTERIOVENOUS FISTULA, ACQUIRED (3) Acute metabolic encephalopathy Assessment/Plan: resolved. patient deemed safe to make her own medical decisions by psyche. Code(s): G93.41 - METABOLIC ENCEPHALOPATHY (4) Myxedema coma Assessment/Plan: mental status improved Novolog SS coverage being followed by check cashier On Prednisone 10mg taper (completed) on discharge as per endodrine- Pt go go home on LT4 225 repeat TFT as an outpt. BGM daily as she has been having bgms <150 Code(s): E03.5 - MYXEDEMA COMA (5) Hypercapnic respiratory failure Assessment/Plan: Intubated on admission, extubated on 09/03/19, now room air with prn oxygen Code(s): J96.92 - RESPIRATORY FAILURE, UNSPECIFIED WITH HYPERCAPNIA (6) SOB (shortness of breath) Assessment/Plan: s/p intubation, on 2 liters nc Code(s): R06.02 - SHORTNESS OF BREATH (7) Morbid obesity Assessment/Plan: outpatient follow up as outpatient, dietary following. Code(s): E66.01 - MORBID (SEVERE) OBESITY DUE TO EXCESS CALORIES (8) AMS (altered mental status) Assessment/Plan: see acute metabolic encephalopathy Code(s): R41.82 - ALTERED MENTAL STATUS, UNSPECIFIED (9) Acute renal failure Assessment/Plan: dialysis per renal via shiley av fistula to be used when cleared by vascular Code(s): N17.9 - ACUTE KIDNEY FAILURE, UNSPECIFIED (10) Metabolic acidosis Assessment/Plan: s/p prednisone taper for possible adrenal insufficiency Code(s): E87.2 - ACIDOSIS (11) Diabetes Assessment/Plan: bgms in am once daily as bgms stable followed by check cashier Code(s): E11.9 - TYPE 2 DIABETES MELLITUS WITHOUT COMPLICATIONS (12) Hypothermia Assessment/Plan: resolved Code(s): T68.XXXA - HYPOTHERMIA, INITIAL ENCOUNTER (13) Anemia Assessment/Plan: received 1 PRBC since admission Hgb stable continue to monitor Code(s): D64.9 - ANEMIA, UNSPECIFIED Qualifiers: Other causes of anemia: chronic disease, other (14) HLD (hyperlipidemia) Code(s): E78.5 - HYPERLIPIDEMIA, UNSPECIFIED (15) Poor appetite Assessment/Plan: on nepro daily with a multivitamin Code(s): R63.0 - ANOREXIA (16) DVT prophylaxis Assessment/Plan: on heparin tid Code(s): Z29.9 - ENCOUNTER FOR PROPHYLACTIC MEASURES, UNSPECIFIED Visit type - Emergency Visit Emergency Visit: Yes ED Registration Date: 08/25/19 Care time: The patient presented to the Emergency Department on the above date and was hospitalized for further evaluation of their emergent condition. - New Patient This patient is new to me today: No - Critical Care Critical Care patient: No - Discharge Referral Referred to [facility] Med P.C.: No
--- NOTE | 2019-09-23 13:47 | PN ---
Progress Note, Physician History of Present Illness: stable no new issues - Current Medication List Current Medications: Active Medications Acetaminophen (Tylenol -) 650 mg PO Q6H PRN PRN Reason: Fever Or Pain Last Admin: 09/17/19 22:26 Dose: 650 mg Amlodipine Besylate (Norvasc -) 10 mg PO DAILY [facility] Last Admin: 09/23/19 09:09 Dose: 10 mg Atorvastatin Calcium (Lipitor -) 40 mg PO HS [facility] Last Admin: 09/22/19 21:39 Dose: 40 mg Famotidine (Pepcid -) 20 mg PO Q2D [facility] Last Admin: 09/22/19 10:40 Dose: 20 mg Insulin Aspart (Novolog Vial Sliding Scale -) 1 vial SQ DAILY@0700 [facility]; Protocol Last Admin: 09/23/19 06:11 Dose: Not Given Labetalol HCl (Normodyne -) 200 mg PO TID [facility] Last Admin: 09/23/19 06:10 Dose: 200 mg Levothyroxine Sodium 200 mcg/ (Levothyroxine Sodium 25 mcg) 225 mcg PO DAILY@ 0700 [facility] Last Admin: 09/23/19 06:10 Dose: 225 mcg Multivitamins/Minerals/Vitamin C (Tab-A-Vit -) 1 tab PO DAILY [facility] Last Admin: 09/23/19 09:09 Dose: 1 tab Paroxetine HCl (Paxil -) 40 mg PO DAILY [facility] Last Admin: 09/23/19 09:09 Dose: 40 mg - Objective Vital Signs: Vital Signs Temperature 97.9 F 09/23/19 09:11 Pulse Rate 69 09/23/19 09:11 Respiratory Rate 20 09/23/19 09:11 Blood Pressure 147/69 09/23/19 09:11 O2 Sat by Pulse Oximetry (%) 96 09/22/19 21:00 Constitutional: Yes: No Distress, Calm Cardiovascular: Yes: S1, S2 Respiratory: Yes: Regular, CTA Bilaterally Gastrointestinal: Yes: Normal Bowel Sounds, Soft Musculoskeletal: Yes: WNL Extremities: Yes: WNL Neurological: Yes: Alert, Oriented Psychiatric: Yes: Alert, Oriented Labs: CBC, BMP 09/22/19 08:35 09/22/19 08:35 INR, PTT INR 0.99 (0.83-1.09) 09/05/19 13:45 Assessment/Plan Problem List - Problems (1) LUCY (acute kidney injury) Code(s): N17.9 - ACUTE KIDNEY FAILURE, UNSPECIFIED (2) AMS (altered mental status) Code(s): R41.82 - ALTERED MENTAL STATUS, UNSPECIFIED (3) Acute metabolic encephalopathy Code(s): G93.41 - METABOLIC ENCEPHALOPATHY (4) Acute respiratory failure Code(s): J96.00 - ACUTE RESPIRATORY FAILURE, UNSP W HYPOXIA OR HYPERCAPNIA (5) Anemia Code(s): D64.9 - ANEMIA, UNSPECIFIED (6) COPD (chronic obstructive pulmonary disease) Code(s): J44.9 - CHRONIC OBSTRUCTIVE PULMONARY DISEASE, UNSPECIFIED (7) Diabetes Code(s): E11.9 - TYPE 2 DIABETES MELLITUS WITHOUT COMPLICATIONS (8) HTN (hypertension) Code(s): I10 - ESSENTIAL (PRIMARY) HYPERTENSION (9) Hypercapnic respiratory failure Code(s): J96.92 - RESPIRATORY FAILURE, UNSPECIFIED WITH HYPERCAPNIA (10) Hypothermia Code(s): T68.XXXA - HYPOTHERMIA, INITIAL ENCOUNTER (11) Morbid obesity Code(s): E66.01 - MORBID (SEVERE) OBESITY DUE TO EXCESS CALORIES (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 physio
--- NOTE | 2019-09-23 14:17 | PN ---
Progress Note, Physician History of Present Illness: Pt seen and examined at bedside. She is awake and alert. she denies shortness of breath. - Current Medication List Current Medications: Active Medications Acetaminophen (Tylenol -) 650 mg PO Q6H PRN PRN Reason: Fever Or Pain Last Admin: 09/17/19 22:26 Dose: 650 mg Amlodipine Besylate (Norvasc -) 10 mg PO DAILY [facility] Last Admin: 09/23/19 09:09 Dose: 10 mg Atorvastatin Calcium (Lipitor -) 40 mg PO HS [facility] Last Admin: 09/22/19 21:39 Dose: 40 mg Famotidine (Pepcid -) 20 mg PO Q2D [facility] Last Admin: 09/22/19 10:40 Dose: 20 mg Insulin Aspart (Novolog Vial Sliding Scale -) 1 vial SQ DAILY@0700 [facility]; Protocol Last Admin: 09/23/19 06:11 Dose: Not Given Labetalol HCl (Normodyne -) 200 mg PO TID [facility] Last Admin: 09/23/19 06:10 Dose: 200 mg Levothyroxine Sodium 200 mcg/ (Levothyroxine Sodium 25 mcg) 225 mcg PO DAILY@ 0700 [facility] Last Admin: 09/23/19 06:10 Dose: 225 mcg Multivitamins/Minerals/Vitamin C (Tab-A-Vit -) 1 tab PO DAILY [facility] Last Admin: 09/23/19 09:09 Dose: 1 tab Paroxetine HCl (Paxil -) 40 mg PO DAILY [facility] Last Admin: 09/23/19 09:09 Dose: 40 mg - Objective Vital Signs: Vital Signs Temperature 97.9 F 09/23/19 09:11 Pulse Rate 69 09/23/19 09:11 Respiratory Rate 20 09/23/19 09:11 Blood Pressure 147/69 09/23/19 09:11 O2 Sat by Pulse Oximetry (%) 97 09/23/19 10:00 Constitutional: Yes: Calm Eyes: Yes: Conjunctiva Clear HENT: Yes: Atraumatic Neck: Yes: Supple Cardiovascular: Yes: S1, S2 Respiratory: Yes: CTA Bilaterally Gastrointestinal: Yes: Normal Bowel Sounds, Soft Genitourinary: Yes: WNL Musculoskeletal: Yes: WNL Extremities: Yes: Other (fistula with thrill and bruit) Edema: No Neurological: Yes: Oriented Psychiatric: Yes: Oriented Labs: CBC, BMP 09/22/19 08:35 09/22/19 08:35 INR, PTT INR 0.99 (0.83-1.09) 09/05/19 13:45 Problem List - Problems (1) AMS (altered mental status) Code(s): R41.82 - ALTERED MENTAL STATUS, UNSPECIFIED (2) Acute metabolic encephalopathy Code(s): G93.41 - METABOLIC ENCEPHALOPATHY (3) Acute renal failure Code(s): N17.9 - ACUTE KIDNEY FAILURE, UNSPECIFIED (4) Diabetes Code(s): E11.9 - TYPE 2 DIABETES MELLITUS WITHOUT COMPLICATIONS (5) Hypercapnic respiratory failure Code(s): J96.92 - RESPIRATORY FAILURE, UNSPECIFIED WITH HYPERCAPNIA (6) Hypothermia Code(s): T68.XXXA - HYPOTHERMIA, INITIAL ENCOUNTER (7) Morbid obesity Code(s): E66.01 - MORBID (SEVERE) OBESITY DUE TO EXCESS CALORIES Assessment/Plan Current Medications Generic Name Dose Route Start Last Admin Trade Name Freq PRN Reason Stop Dose Admin Acetaminophen 650 mg 09/16/19 15:24 09/17/19 22:26 Tylenol - PO 650 mg Q6H PRN Administration Fever Or Pain Amlodipine Besylate 10 mg 09/17/19 10:00 09/23/19 09:09 Norvasc - PO 10 mg DAILY [facility] Administration Atorvastatin Calcium 40 mg 09/16/19 22:00 09/22/19 21:39 Lipitor - PO 40 mg HS [facility] Administration Famotidine 20 mg 09/18/19 10:00 09/22/19 10:40 Pepcid - PO 20 mg Q2D [facility] Administration Insulin Aspart 1 vial 09/20/19 11:06 09/23/19 06:11 Novolog Vial Sliding Scale - SQ Not Given DAILY@0700 [facility] Protocol Labetalol HCl 200 mg 09/16/19 22:00 09/23/19 06:10 Normodyne - PO 200 mg TID [facility] Administration Levothyroxine Sodium 200 mcg/ 225 mcg 09/17/19 07:00 09/23/19 06:10 Levothyroxine Sodium 25 mcg PO 225 mcg DAILY@0700 [facility] Administration Multivitamins/Minerals/Vitamin C 1 tab 09/19/19 10:00 09/23/19 09:09 Tab-A-Vit - PO 1 tab DAILY [facility] Administration Paroxetine HCl 40 mg 09/17/19 10:00 09/23/19 09:09 Paxil - PO 40 mg DAILY [facility] Administration Impression 1. ESRD 2. fluid overload 3. acute respiratory failure 4. hypothyroidism with tsh of 100 5. 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 urine tox pos for mdma 7. mild rhabdo 8. 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
[2019-09-23 17:36] LABS: BASO % 0.3 % (0-2.0); HEMOGLOBIN 7.8 GM/dL (10.7-15.3); LYMPH % 51.9 % (8-40); MCH 30.3 pg (25.7-33.7); MEAN CELL VOLUME 89.2 fl (80-96); MEAN PLT VOLUME 8.9 fl (7.5-11.1); MONO % 4.9 % (3.8-10.2); NEUT % 42.9 % (42.8-82.8); PLATELET COUNT 158 K/MM3 (134-434); RBC 2.58 M/mm3 (3.60-5.2); RDW 15.3 % (11.6-15.6); WHITE BLOOD COUNT 6.3 K/mm3 (4.0-10.0)
[2019-09-23 18:11] LABS: ALBUMIN 2.4 g/dl (3.4-5.0); BILIRUBIN,TOTAL 0.2 mg/dL (0.2-1); BLOOD UREA NITROGEN 13.8 mg/dL (7-18); CALCIUM 7.4 mg/dL (8.5-10.1); CREATININE 5.1 mg/dL (0.55-1.3); MAGNESIUM 1.5 mg/dL (1.8-2.4); POTASSIUM 3.6 mmol/L (3.5-5.1); TOT PROT 6.2 g/dl (6.4-8.2)
[2019-09-23] MEDS: ATORVASTATIN CA 40 MG TABLET (FP) PO SCH (21:43)
[2019-09-24] MEDS: LEVOTHYROXINE 200 MCG, LEVOTHYROXINE 25 MCG PO SCH (07:08)
[2019-09-24] MEDS: LABETALOL HCL 200 MG TABLET (FP) PO SCH ×3 (07:08→21:55)
[2019-09-24] MEDS: INSULIN SLIDING SCALE (NOVOLOG) 1 VIAL SQ SCH (07:12)
[2019-09-24] MEDS ORDERED: SODIUM CHLORIDE 250 ML IV PRN (08:55)
--- NOTE | 2019-09-24 10:14 | PN ---
Physical Exam: SUBJECTIVE: Patient seen and examined at the bedside. Wants to leave AMA, again discussed risk of sudden if she leaves ama. Patient waiting for dialysis center to accept her before discharge but continues to insist on leaving despite risks. She is awake, alert and oriented to person, place, time. OBJECTIVE: spoke to SW, per sw, no facility has yet accepted patient for dialysis (pt will need isolation for hep b) she has been deemed to make her own medical decisions per psyche ---- Patient is a 54 year old female with a significant past medical history of hypertension, hyperlipidemia, diabetes, COPD, anemia, thyroid cancer 6 years ago (no prior admission to [facility]). Patient brought into the ED for altered mental status, acute shortness of breath, metabolic acidosis. She was found to have an elevated TSH, low t4 and hypothermic ([id number] mariana hugger). on admission had renal failure with a creat of 7.7, bun of 65, mag 1.6, elevated ast/alt and now on dialysis. She is pending outpatient dialysis center acceptance as she is hep b+. Vital Signs Period Temp Pulse Resp BP Sys/Amos Pulse Ox Last 24 Hr 98.1 F-98.4 F 60-70 20-20 114-152/52-80 97 GENERAL: The patient is awake, anxious and asking to leave AMA. HEAD: Normal with no signs of trauma. EYES: PERRL, extraocular movements intact, sclera anicteric, conjunctiva clear. No ptosis. ENT: Ears normal, nares patent, oropharynx clear without exudates, moist mucous membranes. NECK: Trachea midline, full range of motion, supple. LUNGS: clear to auscultation bilaterally, stable oxygen saturations HEART: Regular rate and rhythm ABDOMEN: Soft, nontender, nondistended, normoactive bowel sounds, no guarding EXTREMITIES: no edema NEUROLOGICAL: awake, alert, cooperative, anxious at times. PSYCH: Normal mood, normal affect. SKIN: Warm, dry, normal turgor, no rashes or lesions noted Laboratory Results - last 24 hr 09/23/19 09/23/19 09/23/19 06:00 11:46 16:15 WBC 6.3 RBC 2.58 L Hgb 7.8 L Hct 23.0 L MCV 89.2 MCH 30.3 MCHC 34.0 RDW 15.3 Plt Count 158 MPV 8.9 Absolute Neuts (auto) 2.7 Neutrophils % 42.9 Lymphocytes % 51.9 H Monocytes % 4.9 Eosinophils % 0.0 Basophils % 0.3 Nucleated RBC % 0 Sodium 138 Potassium 3.6 Chloride 103 Carbon Dioxide 30 Anion Gap 5 L BUN 13.8 Creatinine 5.1 H Est GFR (CKD-EPI)AfAm 10.46 Est GFR (CKD-EPI)NonAf 9.03 POC Glucometer 132 Random Glucose 125 H Calcium 7.4 L Magnesium 1.5 L Total Bilirubin 0.2 AST 27 ALT 28 Alkaline Phosphatase 286 H Total Protein 6.2 L Albumin 2.4 L 09/24/19 07:11 WBC RBC Hgb Hct MCV MCH MCHC RDW Plt Count MPV Absolute Neuts (auto) Neutrophils % Lymphocytes % Monocytes % Eosinophils % Basophils % Nucleated RBC % Sodium Potassium Chloride Carbon Dioxide Anion Gap BUN Creatinine Est GFR (CKD-EPI)AfAm Est GFR (CKD-EPI)NonAf POC Glucometer 105 Random Glucose Calcium Magnesium Total Bilirubin AST ALT Alkaline Phosphatase Total Protein Albumin Active Medications Generic Name Dose Route Start Last Admin Trade Name Freq PRN Reason Stop Dose Admin Acetaminophen 650 mg 09/16/19 15:24 09/17/19 22:26 Tylenol - PO 650 mg Q6H PRN Administration Fever Or Pain Amlodipine Besylate 10 mg 09/17/19 10:00 09/23/19 09:09 Norvasc - PO 10 mg DAILY [facility] Administration Atorvastatin Calcium 40 mg 09/16/19 22:00 09/23/19 21:43 Lipitor - PO 40 mg HS [facility] Administration Famotidine 20 mg 09/18/19 10:00 09/22/19 10:40 Pepcid - PO 20 mg Q2D [facility] Administration Sodium Chloride 250 mls @ 3,000 mls/hr 09/24/19 08:55 Normal Saline - IV 09/25/19 08:55 PRN PRN Hypotension during Dialysis Insulin Aspart 1 vial 09/20/19 11:06 09/24/19 07:12 Novolog Vial Sliding Scale - SQ Not Given DAILY@0700 [facility] Protocol Labetalol HCl 200 mg 09/16/19 22:00 09/24/19 07:08 Normodyne - PO 200 mg TID [facility] Administration Levothyroxine Sodium 200 mcg/ 225 mcg 09/17/19 07:00 09/24/19 07:08 Levothyroxine Sodium 25 mcg PO 225 mcg DAILY@0700 [facility] Administration Multivitamins/Minerals/Vitamin C 1 tab 09/19/19 10:00 09/23/19 09:09 Tab-A-Vit - PO 1 tab DAILY [facility] Administration Paroxetine HCl 40 mg 09/17/19 10:00 09/23/19 09:09 Paxil - PO 40 mg DAILY [facility] Administration ASSESSMENT/PLAN: Problem List - Problems (1) Fever and chills Assessment/Plan: resolved. blood cultures negative lactic acid within normal limits monitor off antibiotics per ID Code(s): R50.9 - FEVER, UNSPECIFIED (2) AV fistula Assessment/Plan: s/p AV Fistula +bruit, thrill+ left arm precautions dialysis today Code(s): I77.0 - ARTERIOVENOUS FISTULA, ACQUIRED (3) Acute metabolic encephalopathy Assessment/Plan: resolved. patient deemed safe to make her own medical decisions by psyche. Code(s): G93.41 - METABOLIC ENCEPHALOPATHY (4) Myxedema coma Assessment/Plan: mental status improved Novolog SS coverage being followed by sanitation director On Prednisone 10mg taper (completed) on discharge as per endodrine- Pt go go home on LT4 225 repeat TFT as an outpt. BGM daily as she has been having bgms <150 Code(s): E03.5 - MYXEDEMA COMA (5) Hypercapnic respiratory failure Assessment/Plan: Intubated on admission, extubated on 09/03/19, now room air with prn oxygen Code(s): J96.92 - RESPIRATORY FAILURE, UNSPECIFIED WITH HYPERCAPNIA (6) SOB (shortness of breath) Assessment/Plan: s/p intubation, tolerating room air with stable oxygen saturations. Code(s): R06.02 - SHORTNESS OF BREATH (7) Morbid obesity Assessment/Plan: outpatient follow up as outpatient, dietary following. Code(s): E66.01 - MORBID (SEVERE) OBESITY DUE TO EXCESS CALORIES (8) AMS (altered mental status) Assessment/Plan: see acute metabolic encephalopathy Code(s): R41.82 - ALTERED MENTAL STATUS, UNSPECIFIED (9) Acute renal failure Assessment/Plan: dialysis per renal via shiley av fistula left forearm Code(s): N17.9 - ACUTE KIDNEY FAILURE, UNSPECIFIED (10) Metabolic acidosis Assessment/Plan: s/p prednisone taper for possible adrenal insufficiency Code(s): E87.2 - ACIDOSIS (11) Diabetes Assessment/Plan: bgms in am once daily as bgms stable followed by sanitation director Code(s): E11.9 - TYPE 2 DIABETES MELLITUS WITHOUT COMPLICATIONS (12) Hypothermia Assessment/Plan: resolved Code(s): T68.XXXA - HYPOTHERMIA, INITIAL ENCOUNTER (13) Anemia Assessment/Plan: received 1 PRBC since admission Hgb stable continue to monitor Code(s): D64.9 - ANEMIA, UNSPECIFIED Qualifiers: Other causes of anemia: chronic disease, other (14) HLD (hyperlipidemia) Code(s): E78.5 - HYPERLIPIDEMIA, UNSPECIFIED (15) Poor appetite Assessment/Plan: on nepro daily with a multivitamin Code(s): R63.0 - ANOREXIA (16) DVT prophylaxis Assessment/Plan: on heparin tid Code(s): Z29.9 - ENCOUNTER FOR PROPHYLACTIC MEASURES, UNSPECIFIED Visit type - Emergency Visit Emergency Visit: Yes ED Registration Date: 08/25/19 Care time: The patient presented to the Emergency Department on the above date and was hospitalized for further evaluation of their emergent condition. - New Patient This patient is new to me today: No - Critical Care Critical Care patient: No - Discharge Referral Referred to [facility] Med [facility] No
--- NOTE | 2019-09-24 10:47 | PN ---
Progress Note (short form) - Note Progress Note: PULMONARY Denies shortness of breath, cough or wheezing. Vital Signs Period Temp Pulse Resp BP Sys/Amos Pulse Ox Last 24 Hr 98.1 F-98.4 F 60-70 20-20 114-152/52-80 97 Gen: NAD at rest Heart: RRR Lung: decreased breath sounds at the bases Abd: soft, nontender Ext: no edema CBC, BMP 09/23/19 16:15 09/23/19 06:00 Active Medications Acetaminophen (Tylenol -) 650 mg PO Q6H PRN PRN Reason: Fever Or Pain Last Admin: 09/17/19 22:26 Dose: 650 mg Amlodipine Besylate (Norvasc -) 10 mg PO DAILY [facility] Last Admin: 09/23/19 09:09 Dose: 10 mg Atorvastatin Calcium (Lipitor -) 40 mg PO HS [facility] Last Admin: 09/23/19 21:43 Dose: 40 mg Famotidine (Pepcid -) 20 mg PO Q2D [facility] Last Admin: 09/22/19 10:40 Dose: 20 mg Sodium Chloride (Normal Saline -) 250 mls @ 3,000 mls/hr IV PRN PRN PRN Reason: Hypotension during Dialysis Stop: 09/25/19 08:55 Insulin Aspart (Novolog Vial Sliding Scale -) 1 vial SQ DAILY@0700 [facility]; Protocol Last Admin: 09/24/19 07:12 Dose: Not Given Labetalol HCl (Normodyne -) 200 mg PO TID [facility] Last Admin: 09/24/19 07:08 Dose: 200 mg Levothyroxine Sodium 200 mcg/ (Levothyroxine Sodium 25 mcg) 225 mcg PO DAILY@ 0700 [facility] Last Admin: 09/24/19 07:08 Dose: 225 mcg Multivitamins/Minerals/Vitamin C (Tab-A-Vit -) 1 tab PO DAILY [facility] Last Admin: 09/23/19 09:09 Dose: 1 tab Paroxetine HCl (Paxil -) 40 mg PO DAILY [facility] Last Admin: 09/23/19 09:09 Dose: 40 mg A/P Acute Hypercapneic Respiratory Failure improving Myxedema Coma resolved UTI treated Acute Kidney Injury requiring HD Volume Overload improving Pleural Effusions COPD DM Anemia - HD per renal - monitor urine output, creatinine - completed antibiotics - synthroid - inhaled bronchodilators - O2 to keep SpO2 >90% - PO as tolerated - DVT prophylaxis - d/c planning in progress
[2019-09-24] MEDS ORDERED: PT OWN MED DRAWER 7, Y5N ONE (11:11)
[2019-09-24] MEDS: amLODIPine BESYLATE 10 MG TABLET (FP) PO SCH (14:13)
[2019-09-24] MEDS: FAMOTIDINE 20 MG TABLET PO SCH (14:13)
[2019-09-24] MEDS: MULTIVITAMINS (DAILY MVI) TABLET (FP) PO SCH (14:13)
[2019-09-24] MEDS: PARoxetine HCL 20 MG TABLET PO SCH (14:13)
--- NOTE | 2019-09-24 14:34 | PN ---
Progress Note, Physician History of Present Illness: Pt seen and examined at bedside. SHe is tolerating HD. - Current Medication List Current Medications: Active Medications Acetaminophen (Tylenol -) 650 mg PO Q6H PRN PRN Reason: Fever Or Pain Last Admin: 09/17/19 22:26 Dose: 650 mg Amlodipine Besylate (Norvasc -) 10 mg PO DAILY [facility] Last Admin: 09/24/19 14:13 Dose: 10 mg Atorvastatin Calcium (Lipitor -) 40 mg PO HS [facility] Last Admin: 09/23/19 21:43 Dose: 40 mg Famotidine (Pepcid -) 20 mg PO Q2D [facility] Last Admin: 09/24/19 14:13 Dose: 20 mg Sodium Chloride (Normal Saline -) 250 mls @ 3,000 mls/hr IV PRN PRN PRN Reason: Hypotension during Dialysis Stop: 09/25/19 08:55 Insulin Aspart (Novolog Vial Sliding Scale -) 1 vial SQ DAILY@0700 [facility]; Protocol Last Admin: 09/24/19 07:12 Dose: Not Given Labetalol HCl (Normodyne -) 200 mg PO TID [facility] Last Admin: 09/24/19 14:13 Dose: 200 mg Levothyroxine Sodium 200 mcg/ (Levothyroxine Sodium 25 mcg) 225 mcg PO DAILY@ 0700 [facility] Last Admin: 09/24/19 07:08 Dose: 225 mcg Multivitamins/Minerals/Vitamin C (Tab-A-Vit -) 1 tab PO DAILY [facility] Last Admin: 09/24/19 14:13 Dose: 1 tab Paroxetine HCl (Paxil -) 40 mg PO DAILY [facility] Last Admin: 09/24/19 14:13 Dose: 40 mg - Objective Vital Signs: Vital Signs Temperature 97.8 F 09/24/19 14:00 Pulse Rate 62 09/24/19 14:00 Respiratory Rate 18 09/24/19 14:10 Blood Pressure 145/67 09/24/19 14:10 O2 Sat by Pulse Oximetry (%) 97 09/24/19 09:00 Constitutional: Yes: Calm Eyes: Yes: Conjunctiva Clear HENT: Yes: Atraumatic Neck: Yes: Supple Cardiovascular: Yes: S1, S2 Respiratory: Yes: CTA Bilaterally Gastrointestinal: Yes: Normal Bowel Sounds, Soft Genitourinary: Yes: WNL Musculoskeletal: Yes: WNL Edema: No Integumentary: Yes: WNL, Tattoos Neurological: Yes: Oriented Psychiatric: Yes: Oriented Labs: CBC, BMP 09/23/19 16:15 INR, PTT INR 0.99 (0.83-1.09) 09/05/19 13:45 Problem List - Problems (1) AMS (altered mental status) Code(s): R41.82 - ALTERED MENTAL STATUS, UNSPECIFIED (2) Acute metabolic encephalopathy Code(s): G93.41 - METABOLIC ENCEPHALOPATHY (3) Acute renal failure Code(s): N17.9 - ACUTE KIDNEY FAILURE, UNSPECIFIED (4) Diabetes Code(s): E11.9 - TYPE 2 DIABETES MELLITUS WITHOUT COMPLICATIONS (5) Hypercapnic respiratory failure Code(s): J96.92 - RESPIRATORY FAILURE, UNSPECIFIED WITH HYPERCAPNIA (6) Hypothermia Code(s): T68.XXXA - HYPOTHERMIA, INITIAL ENCOUNTER (7) Morbid obesity Code(s): E66.01 - MORBID (SEVERE) OBESITY DUE TO EXCESS CALORIES Assessment/Plan Current Medications Generic Name Dose Route Start Last Admin Trade Name Freq PRN Reason Stop Dose Admin Acetaminophen 650 mg 09/16/19 15:24 09/17/19 22:26 Tylenol - PO 650 mg Q6H PRN Administration Fever Or Pain Amlodipine Besylate 10 mg 09/17/19 10:00 09/24/19 14:13 Norvasc - PO 10 mg DAILY [facility] Administration Atorvastatin Calcium 40 mg 09/16/19 22:00 09/23/19 21:43 Lipitor - PO 40 mg HS [facility] Administration Famotidine 20 mg 09/18/19 10:00 09/24/19 14:13 Pepcid - PO 20 mg Q2D [facility] Administration Sodium Chloride 250 mls @ 3,000 mls/hr 09/24/19 08:55 Normal Saline - IV 09/25/19 08:55 PRN PRN Hypotension during Dialysis Insulin Aspart 1 vial 09/20/19 11:06 09/24/19 07:12 Novolog Vial Sliding Scale - SQ Not Given DAILY@0700 [facility] Protocol Labetalol HCl 200 mg 09/16/19 22:00 09/24/19 14:13 Normodyne - PO 200 mg TID [facility] Administration Levothyroxine Sodium 200 mcg/ 225 mcg 09/17/19 07:00 09/24/19 07:08 Levothyroxine Sodium 25 mcg PO 225 mcg DAILY@0700 [facility] Administration Multivitamins/Minerals/Vitamin C 1 tab 09/19/19 10:00 09/24/19 14:13 Tab-A-Vit - PO 1 tab DAILY [facility] Administration Paroxetine HCl 40 mg 09/17/19 10:00 09/24/19 14:13 Paxil - PO 40 mg DAILY [facility] Administration Impression 1. ESRD 2. fluid overload 3. acute respiratory failure 4. hypothyroidism with tsh of 100 5. 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 urine tox pos for mdma 7. mild rhabdo 8. 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
[2019-09-24 15:33] LABS: CREATININE 5.1 mg/dL (0.55-1.3); URINE CREATININE 71.3 mg/dL (30-150)
--- NOTE | 2019-09-24 17:30 | PN ---
Progress Note (short form) - Note Progress Note: 54 year old female history of HTN, HLD, DM COPD, Anemia thyroid cancer. Patient came with ams and had CHF, renal failure , anemia . James was intubated, she was hypothermic. She is on sedation . Ganesh has ct head and there is mild dilation of ventricles. patient has fistula made yesterday on left arm. No new complaiing and waiting for placement NEUROLOGICAL EXAMINATION neck is supple , hypertensive, alert oriented x 3( knows her name where she is , is able to tell me today is september 06 but mistake on year) pupils reactive no face asymmetry moving all ext , generalized proximal weakness rest of neuro exam is not possible ct head reviewed and mild ventricular dilatation and this could be due to intercurrent illness Assessment/Plan4 year old female history of HTN, HLD, DM COPD, Anemia thyroid cancer. Patient came with ams and had CHF, renal failure , anemia . Plan: continue current level of care. Thanking you so much Hill Hayden MD
[2019-09-24 18:24] LABS: BASO % 0.3 % (0-2.0); EOS % 0.1 % (0-4.5); HEMATOCRIT 21.7 % (32.4-45.2); HEMOGLOBIN 7.4 GM/dL (10.7-15.3); LYMPH % 43.7 % (8-40); MCH 30.3 pg (25.7-33.7); MCHC 34.2 g/dl (32.0-36.0); MEAN CELL VOLUME 88.4 fl (80-96); MEAN PLT VOLUME 8.3 fl (7.5-11.1); MONO % 4.6 % (3.8-10.2); NEUT % 51.3 % (42.8-82.8); PLATELET COUNT 182 K/MM3 (134-434); RBC 2.45 M/mm3 (3.60-5.2); RDW 15.4 % (11.6-15.6); WHITE BLOOD COUNT 6.4 K/mm3 (4.0-10.0)
--- NOTE | 2019-09-24 18:53 | PN ---
Progress Note, Physician History of Present Illness: stable afebrile - Current Medication List Current Medications: Active Medications Acetaminophen (Tylenol -) 650 mg PO Q6H PRN PRN Reason: Fever Or Pain Last Admin: 09/17/19 22:26 Dose: 650 mg Amlodipine Besylate (Norvasc -) 10 mg PO DAILY [facility] Last Admin: 09/24/19 14:13 Dose: 10 mg Atorvastatin Calcium (Lipitor -) 40 mg PO HS [facility] Last Admin: 09/23/19 21:43 Dose: 40 mg Famotidine (Pepcid -) 20 mg PO Q2D [facility] Last Admin: 09/24/19 14:13 Dose: 20 mg Sodium Chloride (Normal Saline -) 250 mls @ 3,000 mls/hr IV PRN PRN PRN Reason: Hypotension during Dialysis Stop: 09/25/19 08:55 Insulin Aspart (Novolog Vial Sliding Scale -) 1 vial SQ DAILY@0700 [facility]; Protocol Last Admin: 09/24/19 07:12 Dose: Not Given Labetalol HCl (Normodyne -) 200 mg PO TID [facility] Last Admin: 09/24/19 14:13 Dose: 200 mg Levothyroxine Sodium 200 mcg/ (Levothyroxine Sodium 25 mcg) 225 mcg PO DAILY@ 0700 [facility] Last Admin: 09/24/19 07:08 Dose: 225 mcg Multivitamins/Minerals/Vitamin C (Tab-A-Vit -) 1 tab PO DAILY [facility] Last Admin: 09/24/19 14:13 Dose: 1 tab Paroxetine HCl (Paxil -) 40 mg PO DAILY [facility] Last Admin: 09/24/19 14:13 Dose: 40 mg - Objective Vital Signs: Vital Signs Temperature 97.8 F 09/24/19 14:00 Pulse Rate 62 09/24/19 14:00 Respiratory Rate 18 09/24/19 14:10 Blood Pressure 145/67 09/24/19 14:10 O2 Sat by Pulse Oximetry (%) 97 09/24/19 09:00 Constitutional: Yes: No Distress, Calm, Obese Cardiovascular: Yes: S1, S2 Respiratory: Yes: Regular, CTA Bilaterally Gastrointestinal: Yes: Normal Bowel Sounds, Soft Musculoskeletal: Yes: WNL Extremities: Yes: WNL Neurological: Yes: Alert, Oriented Psychiatric: Yes: Alert, Oriented Labs: CBC, BMP 09/24/19 17:15 09/23/19 14:00 INR, PTT INR 0.99 (0.83-1.09) 09/05/19 13:45 Assessment/Plan Problem List - Problems (1) LUCY (acute kidney injury) Code(s): N17.9 - ACUTE KIDNEY FAILURE, UNSPECIFIED (2) AMS (altered mental status) Code(s): R41.82 - ALTERED MENTAL STATUS, UNSPECIFIED (3) Acute metabolic encephalopathy Code(s): G93.41 - METABOLIC ENCEPHALOPATHY (4) Acute respiratory failure Code(s): J96.00 - ACUTE RESPIRATORY FAILURE, UNSP W HYPOXIA OR HYPERCAPNIA (5) Anemia Code(s): D64.9 - ANEMIA, UNSPECIFIED (6) COPD (chronic obstructive pulmonary disease) Code(s): J44.9 - CHRONIC OBSTRUCTIVE PULMONARY DISEASE, UNSPECIFIED (7) Diabetes Code(s): E11.9 - TYPE 2 DIABETES MELLITUS WITHOUT COMPLICATIONS (8) HTN (hypertension) Code(s): I10 - ESSENTIAL (PRIMARY) HYPERTENSION (9) Hypercapnic respiratory failure Code(s): J96.92 - RESPIRATORY FAILURE, UNSPECIFIED WITH HYPERCAPNIA (10) Hypothermia Code(s): T68.XXXA - HYPOTHERMIA, INITIAL ENCOUNTER (11) Morbid obesity Code(s): E66.01 - MORBID (SEVERE) OBESITY DUE TO EXCESS CALORIES (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 physio
[2019-09-24] MEDS ORDERED: LABETALOL HCL 100 MG TABLET (FP) ONE (21:43)
[2019-09-24] MEDS: ATORVASTATIN CA 40 MG TABLET (FP) PO SCH (21:55)
[2019-09-25] MEDS ORDERED: PT OWN MED DRAWER 7, Y5N ONE (05:32)
[2019-09-25] MEDS: LABETALOL HCL 200 MG TABLET (FP) PO SCH ×3 (06:11→21:03)
[2019-09-25] MEDS: LEVOTHYROXINE 200 MCG, LEVOTHYROXINE 25 MCG PO SCH (06:12)
[2019-09-25] MEDS: INSULIN SLIDING SCALE (NOVOLOG) 1 VIAL SQ SCH (06:16)
[2019-09-25] MEDS ORDERED: POLYETHYLENE GLYCOL 3350 119 GM BTL PO ONE (06:35)
[2019-09-25 08:56] LABS: ALBUMIN 2.6 g/dl (3.4-5.0); BILIRUBIN,TOTAL 0.6 mg/dL (0.2-1); BLOOD UREA NITROGEN 9.9 mg/dL (7-18); CALCIUM 7.4 mg/dL (8.5-10.1); CREATININE 3.6 mg/dL (0.55-1.3); MAGNESIUM 1.5 mg/dL (1.8-2.4); TOT PROT 6.5 g/dl (6.4-8.2)
[2019-09-25] MEDS: PARoxetine HCL 20 MG TABLET PO SCH (09:47)
[2019-09-25] MEDS: amLODIPine BESYLATE 10 MG TABLET (FP) PO SCH (09:47)
[2019-09-25] MEDS: MULTIVITAMINS (DAILY MVI) TABLET (FP) PO SCH (09:47)
--- NOTE | 2019-09-25 10:19 | PN ---
Progress Note, Physician History of Present Illness: stable no new issues - Current Medication List Current Medications: Active Medications Acetaminophen (Tylenol -) 650 mg PO Q6H PRN PRN Reason: Fever Or Pain Last Admin: 09/17/19 22:26 Dose: 650 mg Amlodipine Besylate (Norvasc -) 10 mg PO DAILY [facility] Last Admin: 09/25/19 09:47 Dose: 10 mg Atorvastatin Calcium (Lipitor -) 40 mg PO HS [facility] Last Admin: 09/24/19 21:55 Dose: 40 mg Famotidine (Pepcid -) 20 mg PO Q2D [facility] Last Admin: 09/24/19 14:13 Dose: 20 mg Sodium Chloride (Normal Saline -) 250 mls @ 3,000 mls/hr IV PRN PRN PRN Reason: Hypotension during Dialysis Stop: 09/25/19 08:55 Insulin Aspart (Novolog Vial Sliding Scale -) 1 vial SQ DAILY@0700 [facility]; Protocol Last Admin: 09/25/19 06:16 Dose: Not Given Labetalol HCl (Normodyne -) 200 mg PO TID [facility] Last Admin: 09/25/19 06:11 Dose: 200 mg Levothyroxine Sodium 200 mcg/ (Levothyroxine Sodium 25 mcg) 225 mcg PO DAILY@ 0700 [facility] Last Admin: 09/25/19 06:12 Dose: 225 mcg Multivitamins/Minerals/Vitamin C (Tab-A-Vit -) 1 tab PO DAILY [facility] Last Admin: 09/25/19 09:47 Dose: 1 tab Paroxetine HCl (Paxil -) 40 mg PO DAILY [facility] Last Admin: 09/25/19 09:47 Dose: 40 mg Potassium Chloride (K-Dur -) 40 meq PO ONCE ONE Stop: 09/25/19 09:24 - Objective Vital Signs: Vital Signs Temperature 88.7 F L 09/25/19 05:55 Pulse Rate 62 09/25/19 05:55 Respiratory Rate 18 09/25/19 05:55 Blood Pressure 147/61 09/25/19 05:55 O2 Sat by Pulse Oximetry (%) 97 09/24/19 21:00 Constitutional: Yes: No Distress, Calm, Obese Cardiovascular: Yes: S1, S2 Respiratory: Yes: Regular, CTA Bilaterally Gastrointestinal: Yes: Normal Bowel Sounds, Soft Musculoskeletal: Yes: WNL Extremities: Yes: WNL Neurological: Yes: Alert, Oriented Psychiatric: Yes: Alert, Oriented Labs: CBC, BMP 09/25/19 07:30 INR, PTT INR 0.99 (0.83-1.09) 09/05/19 13:45 Assessment/Plan Problem List - Problems (1) LUCY (acute kidney injury) Code(s): N17.9 - ACUTE KIDNEY FAILURE, UNSPECIFIED (2) AMS (altered mental status) Code(s): R41.82 - ALTERED MENTAL STATUS, UNSPECIFIED (3) Acute metabolic encephalopathy Code(s): G93.41 - METABOLIC ENCEPHALOPATHY (4) Acute respiratory failure Code(s): J96.00 - ACUTE RESPIRATORY FAILURE, UNSP W HYPOXIA OR HYPERCAPNIA (5) Anemia Code(s): D64.9 - ANEMIA, UNSPECIFIED (6) COPD (chronic obstructive pulmonary disease) Code(s): J44.9 - CHRONIC OBSTRUCTIVE PULMONARY DISEASE, UNSPECIFIED (7) Diabetes Code(s): E11.9 - TYPE 2 DIABETES MELLITUS WITHOUT COMPLICATIONS (8) HTN (hypertension) Code(s): I10 - ESSENTIAL (PRIMARY) HYPERTENSION (9) Hypercapnic respiratory failure Code(s): J96.92 - RESPIRATORY FAILURE, UNSPECIFIED WITH HYPERCAPNIA (10) Hypothermia Code(s): T68.XXXA - HYPOTHERMIA, INITIAL ENCOUNTER (11) Morbid obesity Code(s): E66.01 - MORBID (SEVERE) OBESITY DUE TO EXCESS CALORIES (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 physio
[2019-09-25] MEDS ORDERED: POTASSIUM CHLORIDE TABS 20 MEQ TABLET.ER (FP) PO ONE (10:30)
[2019-09-25 11:16] LABS: BASO % 0.2 % (0-2.0); HEMOGLOBIN 8.5 GM/dL (10.7-15.3); LYMPH % 49.4 % (8-40); MCH 30.2 pg (25.7-33.7); MCHC 34.1 g/dl (32.0-36.0); MEAN CELL VOLUME 88.7 fl (80-96); MEAN PLT VOLUME 8.6 fl (7.5-11.1); MONO % 5.3 % (3.8-10.2); NEUT % 45.1 % (42.8-82.8); PLATELET COUNT 229 K/MM3 (134-434); RBC 2.82 M/mm3 (3.60-5.2); RDW 15.5 % (11.6-15.6); WHITE BLOOD COUNT 6.2 K/mm3 (4.0-10.0)
--- NOTE | 2019-09-25 11:44 | DS ---
Physical Exam: SUBJECTIVE: Patient seen and examined OBJECTIVE: Vital Signs Period Temp Pulse Resp BP Sys/Amos Pulse Ox Last 24 Hr 88.7 F-98.4 F 61-97 18-18 124-150/53-88 94-97 PHYSICAL EXAM GENERAL: The patient is awake, alert, and fully oriented, in no acute distress. HEAD: Normal with no signs of trauma. EYES: PERRL, extraocular movements intact, sclera anicteric, conjunctiva clear. ENT: Ears normal, nares patent, oropharynx clear without exudates, moist mucous membranes. NECK: Trachea midline, full range of motion, supple. LUNGS: Breath sounds equal, clear to auscultation bilaterally, no wheezes, no crackles, no accessory muscle use. HEART: Regular rate and rhythm, S1, S2 without murmur, rub or gallop. ABDOMEN: Soft, nontender, nondistended, normoactive bowel sounds, no guarding, no rebound, no hepatosplenomegaly, no masses. EXTREMITIES: 2+ pulses, warm, well-perfused, no edema. NEUROLOGICAL: Cranial nerves II through XII grossly intact. Normal speech, gait not observed. PSYCH: Normal mood, normal affect. SKIN: Warm, dry, normal turgor, no rashes or lesions noted. LABS Laboratory Results - last 24 hr 09/23/19 09/24/19 09/25/19 14:00 17:15 06:14 WBC 6.4 RBC 2.45 L Hgb 7.4 L Hct 21.7 L MCV 88.4 MCH 30.3 MCHC 34.2 RDW 15.4 Plt Count 182 MPV 8.3 Absolute Neuts (auto) 3.3 Neutrophils % 51.3 Lymphocytes % 43.7 H Monocytes % 4.6 Eosinophils % 0.1 D Basophils % 0.3 Nucleated RBC % 0 Sodium Potassium Chloride Carbon Dioxide Anion Gap BUN Creatinine 5.1 H Est GFR (CKD-EPI)AfAm Est GFR (CKD-EPI)NonAf POC Glucometer 96 Random Glucose Calcium Magnesium Total Bilirubin AST ALT Alkaline Phosphatase Total Protein Albumin TSH Free T4 Urine Collection Time 24 Urine Total Volume 700 Urine Creatinine 71.3 Creatinine Clearance 7 L 09/25/19 09/25/19 07:30 07:30 WBC 6.2 RBC 2.82 L Hgb 8.5 L Hct 25.0 L D MCV 88.7 MCH 30.2 MCHC 34.1 RDW 15.5 Plt Count 229 D MPV 8.6 Absolute Neuts (auto) 2.8 Neutrophils % 45.1 Lymphocytes % 49.4 H Monocytes % 5.3 Eosinophils % 0.0 D Basophils % 0.2 Nucleated RBC % 0 Sodium 139 Potassium 3.0 L Chloride 102 Carbon Dioxide 31 Anion Gap 6 L BUN 9.9 Creatinine 3.6 H Est GFR (CKD-EPI)AfAm 15.94 Est GFR (CKD-EPI)NonAf 13.76 POC Glucometer Random Glucose 98 Calcium 7.4 L Magnesium 1.5 L Total Bilirubin 0.6 AST 26 ALT 26 Alkaline Phosphatase 272 H Total Protein 6.5 Albumin 2.6 L TSH 52.00 H Free T4 1.44 Urine Collection Time Urine Total Volume Urine Creatinine Creatinine Clearance HOSPITAL COURSE: Date of Admission:08/25/19 Date of Discharge: 09/25/19 Discharge Summary Problems reviewed: Yes Reason For Visit: MYXEDEMA COMA;SHORTNESS OF BREATH;ACUTE REANL FAIL Current Active Problems LUCY (acute kidney injury) (Acute) AMS (altered mental status) (Acute) AV fistula (Acute) Acute metabolic encephalopathy (Acute) Acute renal failure (Acute) Acute respiratory failure (Acute) Anemia (Acute) COPD (chronic obstructive pulmonary disease) (Acute) DVT prophylaxis (Acute) Diabetes (Acute) ESRD (end stage renal disease) on dialysis (Acute) Ecstasy abuse (Acute) Fever (Acute) Fever and chills (Acute) HLD (hyperlipidemia) (Acute) HTN (hypertension) (Acute) Hepatitis B (Acute) Hypercapnic respiratory failure (Acute) Hypothermia (Acute) Metabolic acidosis (Acute) Morbid obesity (Acute) Myxedema coma (Acute) Poor appetite (Acute) Prophylactic measure (Acute) SOB (shortness of breath) (Acute) Thyroid cancer (Acute) VAP (ventilator-associated pneumonia) (Acute) Condition: Stable - Instructions Diet, Activity, Other Instructions: Post-operative Instructions FOR LEFT FOREARM FISTULA. Wound: Keep your dressing clean and dry and in place for 72 hours. You may shower in 48 hours with a waterproof bag or Saran wrap over the original dressing. In 72 hours when you remove the dressing, you may wet the incision in the shower ONLY. Allow soap and water to run over the incision, do not scrub the incision, pat dry well after showering. Check the incision daily after removal of the dressing for redness or drainage. If you note any redness or drainage, contact your surgeon immediately. Do not swim or soak in water (bath/ hot tub, etc) until cleared by your surgeon as this can lead to infection. Do not put creams or ointments on the wound until cleared by your surgeon. Diet: You may resume your regular diet unless otherwise instructed by your physician. Increase your fiber intake if taking narcotic pain medications as constipation is a common side effect. Pain Relief: Take pain medication as prescribed. Do not drive, drink alcohol or operate heavy machinery while taking narcotic pain medications. The pain medication you have been prescribed for pain contains Acetaminophen (Tylenol), do not take additional Tylenol with this pain medication. You should not exceed more than 4g (4000mg) of Tylenol in 24 hours as this can lead to liver damage or failure. Activity: No heavy lifting with your operative arm until cleared by your surgeon. Do no wear any occlusive jewelry on your operative arm as this can affect the functioning of your fistula. Follow-up Please call the office to schedule your follow up appointment in 2 weeks. Call your doctors office or go to the ER immediately if you develop: Trouble breathing, chest tightness or shortness of breath Oral temperature greater than 100.5 F Excessive redness, swelling, or drainage at the incision site. Foul odor from the incision. New, increasing pain/numbness/weakness or coolness in your arm. Please continue all medications as outlined in your discharge instructions. YOU HAD A PPD PLACED TODAY ON THE RIGHT ARM. IT WILL NEED TO BE READ IN 48 HOURS MAINTAIN LEFT ARM PRECAUTIONS. LEFT ARM FISTULA NOT TO BE USED UNTIL CLEARED BY HER VASCULAR MD (DR BARBOUR) Referrals: Grabiel Lentz MD [Staff Physician] - Disposition: RETIREMENT FACILITY - Home Medications Comprehensive Discharge Medication List: Ambulatory Orders Cetirizine HCl [Allergy Relief] 10 mg PO DAILY 08/25/19 Docusate Sodium [Docusate 100 mg] 100 mg PO BID 08/25/19 Clonazepam [Klonopin] 2 mg PO HS 08/26/19 Acetaminophen [Tylenol .Regular Strength -] 650 mg PO Q6H PRN tablet 09/25/19 Amlodipine Besylate [Norvasc -] 10 mg PO DAILY tablet 09/25/19 Atorvastatin Ca [Lipitor] 40 mg PO HS tablet 09/25/19 Famotidine [Pepcid -] 20 mg PO Q2D tablet 09/25/19 Insulin Sliding Scale [Novolog Vial Sliding Scale -] 1 vial SQ DAILY@0700 units 09/25/19 Labetalol HCl [Normodyne -] 200 mg PO TID tablet 09/25/19 Levothyroxine [Synthroid -] 225 mcg PO DAILY@0700 tablet 09/25/19 Paroxetine HCl [Paxil -] 40 mg PO DAILY tablet 09/25/19 Problem List - Problems (1) Fever and chills Code(s): R50.9 - FEVER, UNSPECIFIED (2) AV fistula Code(s): I77.0 - ARTERIOVENOUS FISTULA, ACQUIRED (3) Acute metabolic encephalopathy Code(s): G93.41 - METABOLIC ENCEPHALOPATHY (4) 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 - MYXEDEMA COMA (5) Hypercapnic respiratory failure Code(s): J96.92 - RESPIRATORY FAILURE, UNSPECIFIED WITH HYPERCAPNIA (6) SOB (shortness of breath) Code(s): R06.02 - SHORTNESS OF BREATH (7) Morbid obesity Code(s): E66.01 - MORBID (SEVERE) OBESITY DUE TO EXCESS CALORIES (8) AMS (altered mental status) Code(s): R41.82 - ALTERED MENTAL STATUS, UNSPECIFIED (9) Acute renal failure Code(s): N17.9 - ACUTE KIDNEY FAILURE, UNSPECIFIED (10) Metabolic acidosis Code(s): E87.2 - ACIDOSIS (11) Diabetes Code(s): E11.9 - TYPE 2 DIABETES MELLITUS WITHOUT COMPLICATIONS (12) Hypothermia Code(s): T68.XXXA - HYPOTHERMIA, INITIAL ENCOUNTER (13) Anemia Code(s): D64.9 - ANEMIA, UNSPECIFIED Qualifiers: Other causes of anemia: chronic disease, other (14) HLD (hyperlipidemia) Code(s): E78.5 - HYPERLIPIDEMIA, UNSPECIFIED (15) Poor appetite Code(s): R63.0 - ANOREXIA (16) DVT prophylaxis Code(s): Z29.9 - ENCOUNTER FOR PROPHYLACTIC MEASURES, UNSPECIFIED - Discharge Referral Referred to [facility] No
--- NOTE | 2019-09-25 11:45 | PN ---
Progress Note (short form) - Note Progress Note: PULMONARY Denies shortness of breath, cough or wheezing. Awaiting placement. Vital Signs Period Temp Pulse Resp BP Sys/Amos Pulse Ox Last 24 Hr 88.7 F-98.4 F 61-97 18-18 124-150/53-88 94-97 Gen: NAD at rest Heart: RRR Lung: decreased breath sounds at the bases Abd: soft, nontender Ext: no edema CBC, BMP 09/25/19 07:30 09/25/19 07:30 Active Medications Acetaminophen (Tylenol -) 650 mg PO Q6H PRN PRN Reason: Fever Or Pain Last Admin: 09/17/19 22:26 Dose: 650 mg Amlodipine Besylate (Norvasc -) 10 mg PO DAILY [facility] Last Admin: 09/25/19 09:47 Dose: 10 mg Atorvastatin Calcium (Lipitor -) 40 mg PO HS [facility] Last Admin: 09/24/19 21:55 Dose: 40 mg Famotidine (Pepcid -) 20 mg PO Q2D [facility] Last Admin: 09/24/19 14:13 Dose: 20 mg Sodium Chloride (Normal Saline -) 250 mls @ 3,000 mls/hr IV PRN PRN PRN Reason: Hypotension during Dialysis Stop: 09/25/19 08:55 Insulin Aspart (Novolog Vial Sliding Scale -) 1 vial SQ DAILY@0700 [facility]; Protocol Last Admin: 09/25/19 06:16 Dose: Not Given Labetalol HCl (Normodyne -) 200 mg PO TID [facility] Last Admin: 09/25/19 06:11 Dose: 200 mg Levothyroxine Sodium 200 mcg/ (Levothyroxine Sodium 25 mcg) 225 mcg PO DAILY@ 0700 [facility] Last Admin: 09/25/19 06:12 Dose: 225 mcg Multivitamins/Minerals/Vitamin C (Tab-A-Vit -) 1 tab PO DAILY [facility] Last Admin: 09/25/19 09:47 Dose: 1 tab Paroxetine HCl (Paxil -) 40 mg PO DAILY [facility] Last Admin: 09/25/19 09:47 Dose: 40 mg Tuberculin PPD (Tubersol Intermediate Strength) 5 tu ID ONCE ONE Stop: 09/25/19 12:01 A/P Acute Hypercapneic Respiratory Failure improving Myxedema Coma resolved UTI treated Acute Kidney Injury requiring HD Volume Overload improving Pleural Effusions COPD DM Anemia - HD per renal - monitor urine output, creatinine - completed antibiotics - synthroid - inhaled bronchodilators - O2 to keep SpO2 >90% - PO as tolerated - DVT prophylaxis - d/c planning in progress
[2019-09-25] MEDS ORDERED: TUBERCULIN PPD 5 TU/0.1ML SYRINGE (IN PATIENT USE ONLY) ID ONE (12:00)
--- NOTE | 2019-09-25 13:26 | PN ---
Physical Exam: SUBJECTIVE: Patient seen and examined at the bedside. Patient has been offered a bed at SNF and she accepted to go, however, SNF now declining patient and currently we are awaiting another facility bed offer. Importance of going to a SNF vs home discussed with patient as in a SNF she will not only get dialysis, but the physical therapy that she needs. Patient agrees. SW following and pending bed offer. Patient denies any shortness of breath or pain. OBJECTIVE: Patient is a 54 year old female with a significant past medical history of hypertension, hyperlipidemia, diabetes, COPD, anemia, thyroid cancer 6 years ago (no prior admission to [facility]). Patient brought into the ED for altered mental status, acute shortness of breath, metabolic acidosis. She was found to have an elevated TSH, low t4 and hypothermic ([id number] mariana hugger). on admission had renal failure with a creat of 7.7, bun of 65, mag 1.6, elevated ast/alt and now on dialysis. She is pending outpatient dialysis center acceptance as she is hep b+ and will need isolation ------ K repleted, Mag repleted PPD to be placed today 09/25/2019 on right forearm. ordered hepatitis panel to be repeated (previous is over 30 days) Vital Signs Period Temp Pulse Resp BP Sys/Amos Pulse Ox Last 24 Hr 88.7 F-98.4 F 62-97 18-18 124-150/61-79 94-97 GENERAL: The patient is awake, alert and in no acute distress. HEAD: Normal with no signs of trauma. EYES: PERRL, extraocular movements intact, sclera anicteric, conjunctiva clear. No ptosis. ENT: Ears normal, nares patent, oropharynx clear without exudates, moist mucous membranes. NECK: Trachea midline, full range of motion, supple. LUNGS: clear to auscultation bilaterally, stable oxygen saturations on room air HEART: Regular rate and rhythm ABDOMEN: Soft, nontender, nondistended, normoactive bowel sounds, no guarding EXTREMITIES: no edema NEUROLOGICAL: awake, alert, cooperative, anxious at times. PSYCH: Normal mood, normal affect. SKIN: Warm, dry, normal turgor, no rashes or lesions noted Laboratory Results - last 24 hr 09/23/19 09/24/19 09/25/19 14:00 17:15 06:14 WBC 6.4 RBC 2.45 L Hgb 7.4 L Hct 21.7 L MCV 88.4 MCH 30.3 MCHC 34.2 RDW 15.4 Plt Count 182 MPV 8.3 Absolute Neuts (auto) 3.3 Neutrophils % 51.3 Lymphocytes % 43.7 H Monocytes % 4.6 Eosinophils % 0.1 D Basophils % 0.3 Nucleated RBC % 0 Sodium Potassium Chloride Carbon Dioxide Anion Gap BUN Creatinine 5.1 H Est GFR (CKD-EPI)AfAm Est GFR (CKD-EPI)NonAf POC Glucometer 96 Random Glucose Calcium Magnesium Total Bilirubin AST ALT Alkaline Phosphatase Total Protein Albumin TSH Free T4 Urine Collection Time 24 Urine Total Volume 700 Urine Creatinine 71.3 Creatinine Clearance 7 L 09/25/19 09/25/19 07:30 07:30 WBC 6.2 RBC 2.82 L Hgb 8.5 L Hct 25.0 L D MCV 88.7 MCH 30.2 MCHC 34.1 RDW 15.5 Plt Count 229 D MPV 8.6 Absolute Neuts (auto) 2.8 Neutrophils % 45.1 Lymphocytes % 49.4 H Monocytes % 5.3 Eosinophils % 0.0 D Basophils % 0.2 Nucleated RBC % 0 Sodium 139 Potassium 3.0 L Chloride 102 Carbon Dioxide 31 Anion Gap 6 L BUN 9.9 Creatinine 3.6 H Est GFR (CKD-EPI)AfAm 15.94 Est GFR (CKD-EPI)NonAf 13.76 POC Glucometer Random Glucose 98 Calcium 7.4 L Magnesium 1.5 L Total Bilirubin 0.6 AST 26 ALT 26 Alkaline Phosphatase 272 H Total Protein 6.5 Albumin 2.6 L TSH 52.00 H Free T4 1.44 Urine Collection Time Urine Total Volume Urine Creatinine Creatinine Clearance Active Medications Generic Name Dose Route Start Last Admin Trade Name Freq PRN Reason Stop Dose Admin Acetaminophen 650 mg 09/16/19 15:24 09/17/19 22:26 Tylenol - PO 650 mg Q6H PRN Administration Fever Or Pain Amlodipine Besylate 10 mg 09/17/19 10:00 09/25/19 09:47 Norvasc - PO 10 mg DAILY ZOE Administration Atorvastatin Calcium 40 mg 09/16/19 22:00 09/24/19 21:55 Lipitor - PO 40 mg HS ZOE Administration Famotidine 20 mg 09/18/19 10:00 09/24/19 14:13 Pepcid - PO 20 mg Q2D ZOE Administration Sodium Chloride 250 mls @ 3,000 mls/hr 09/24/19 08:55 Normal Saline - IV 09/25/19 08:55 PRN PRN Hypotension during Dialysis Insulin Aspart 1 vial 09/20/19 11:06 09/25/19 06:16 Novolog Vial Sliding Scale - SQ Not Given DAILY@0700 [facility] Protocol Labetalol HCl 200 mg 09/16/19 22:00 09/25/19 06:11 Normodyne - PO 200 mg TID ZOE Administration Levothyroxine Sodium 200 mcg/ 225 mcg 09/17/19 07:00 09/25/19 06:12 Levothyroxine Sodium 25 mcg PO 225 mcg DAILY@0700 [facility] Administration Multivitamins/Minerals/Vitamin C 1 tab 09/19/19 10:00 09/25/19 09:47 Tab-A-Vit - PO 1 tab DAILY ZOE Administration Paroxetine HCl 40 mg 09/17/19 10:00 09/25/19 09:47 Paxil - PO 40 mg DAILY ZOE Administration ASSESSMENT/PLAN: Problem List - Problems (1) Fever and chills Assessment/Plan: resolved. blood cultures negative lactic acid within normal limits monitor off antibiotics per ID Code(s): R50.9 - FEVER, UNSPECIFIED (2) AV fistula Assessment/Plan: s/p AV Fistula +bruit, thrill+ left arm precautions last dialysis was yesterday via [facility] Code(s): I77.0 - ARTERIOVENOUS FISTULA, ACQUIRED (3) Acute metabolic encephalopathy Assessment/Plan: resolved. patient deemed safe to make her own medical decisions by psyche. Code(s): G93.41 - METABOLIC ENCEPHALOPATHY (4) Myxedema coma Assessment/Plan: mental status improved being followed by clearing distribution clerk was on Prednisone 10mg taper (completed) on discharge as per endodrine- Pt go go home on LT4 225 repeat TFT as an outpt. BGM daily as she has been having bgms <150 Code(s): E03.5 - MYXEDEMA COMA (5) Hypercapnic respiratory failure Assessment/Plan: Intubated on admission, extubated on 09/03/19, now room air Code(s): J96.92 - RESPIRATORY FAILURE, UNSPECIFIED WITH HYPERCAPNIA (6) SOB (shortness of breath) Assessment/Plan: s/p intubation, tolerating room air with stable oxygen saturations. Code(s): R06.02 - SHORTNESS OF BREATH (7) Morbid obesity Assessment/Plan: outpatient follow up as outpatient, dietary following. Code(s): E66.01 - MORBID (SEVERE) OBESITY DUE TO EXCESS CALORIES (8) AMS (altered mental status) Assessment/Plan: see acute metabolic encephalopathy Code(s): R41.82 - ALTERED MENTAL STATUS, UNSPECIFIED (9) Acute renal failure Assessment/Plan: dialysis per renal via shiley av fistula left forearm left arm precautions Code(s): N17.9 - ACUTE KIDNEY FAILURE, UNSPECIFIED (10) Metabolic acidosis Assessment/Plan: s/p prednisone taper for possible adrenal insufficiency Code(s): E87.2 - ACIDOSIS (11) Diabetes Assessment/Plan: bgms in am once daily as bgms stable followed by clearing distribution clerk Code(s): E11.9 - TYPE 2 DIABETES MELLITUS WITHOUT COMPLICATIONS (12) Hypothermia Assessment/Plan: resolved Code(s): T68.XXXA - HYPOTHERMIA, INITIAL ENCOUNTER (13) Anemia Assessment/Plan: received 1 PRBC since admission Hgb stable continue to monitor Code(s): D64.9 - ANEMIA, UNSPECIFIED Qualifiers: Other causes of anemia: chronic disease, other (14) HLD (hyperlipidemia) Code(s): E78.5 - HYPERLIPIDEMIA, UNSPECIFIED (15) Poor appetite Assessment/Plan: on nepro daily with a multivitamin Code(s): R63.0 - ANOREXIA (16) DVT prophylaxis Assessment/Plan: on heparin tid Code(s): Z29.9 - ENCOUNTER FOR PROPHYLACTIC MEASURES, UNSPECIFIED Visit type - Emergency Visit Emergency Visit: Yes ED Registration Date: 08/25/19 Care time: The patient presented to the Emergency Department on the above date and was hospitalized for further evaluation of their emergent condition. - New Patient This patient is new to me today: No - Critical Care Critical Care patient: No - Discharge Referral Referred to [facility] No
[2019-09-25] MEDS ORDERED: LABETALOL HCL 100 MG TABLET (FP) ONE ×2 (13:47→20:54)
--- NOTE | 2019-09-25 13:47 | PN ---
Progress Note, Physician History of Present Illness: Pt seen and examined at bedside. She is awake and alert. She denies shortness of breath. - Current Medication List Current Medications: Active Medications Acetaminophen (Tylenol -) 650 mg PO Q6H PRN PRN Reason: Fever Or Pain Last Admin: 09/17/19 22:26 Dose: 650 mg Amlodipine Besylate (Norvasc -) 10 mg PO DAILY [facility] Last Admin: 09/25/19 09:47 Dose: 10 mg Atorvastatin Calcium (Lipitor -) 40 mg PO HS [facility] Last Admin: 09/24/19 21:55 Dose: 40 mg Famotidine (Pepcid -) 20 mg PO Q2D [facility] Last Admin: 09/24/19 14:13 Dose: 20 mg Sodium Chloride (Normal Saline -) 250 mls @ 3,000 mls/hr IV PRN PRN PRN Reason: Hypotension during Dialysis Stop: 09/25/19 08:55 Insulin Aspart (Novolog Vial Sliding Scale -) 1 vial SQ DAILY@0700 [facility]; Protocol Last Admin: 09/25/19 06:16 Dose: Not Given Labetalol HCl (Normodyne -) 200 mg PO TID [facility] Last Admin: 09/25/19 06:11 Dose: 200 mg Levothyroxine Sodium 200 mcg/ (Levothyroxine Sodium 25 mcg) 225 mcg PO DAILY@ 0700 [facility] Last Admin: 09/25/19 06:12 Dose: 225 mcg Multivitamins/Minerals/Vitamin C (Tab-A-Vit -) 1 tab PO DAILY [facility] Last Admin: 09/25/19 09:47 Dose: 1 tab Paroxetine HCl (Paxil -) 40 mg PO DAILY [facility] Last Admin: 09/25/19 09:47 Dose: 40 mg - Objective Vital Signs: Vital Signs Temperature 88.7 F L 09/25/19 05:55 Pulse Rate 62 09/25/19 05:55 Respiratory Rate 18 09/25/19 05:55 Blood Pressure 147/61 09/25/19 05:55 O2 Sat by Pulse Oximetry (%) 94 L 09/25/19 10:00 Constitutional: Yes: Calm Eyes: Yes: Conjunctiva Clear HENT: Yes: Atraumatic Cardiovascular: Yes: S1, S2 Respiratory: Yes: CTA Bilaterally Gastrointestinal: Yes: Soft Genitourinary: Yes: WNL Musculoskeletal: Yes: WNL Edema: No Integumentary: Yes: Tattoos Neurological: Yes: Oriented Psychiatric: Yes: Oriented Labs: CBC, BMP 09/25/19 07:30 09/25/19 12:25 INR, PTT INR 0.99 (0.83-1.09) 09/05/19 13:45 Problem List - Problems (1) AMS (altered mental status) Code(s): R41.82 - ALTERED MENTAL STATUS, UNSPECIFIED (2) Acute metabolic encephalopathy Code(s): G93.41 - METABOLIC ENCEPHALOPATHY (3) Acute renal failure Code(s): N17.9 - ACUTE KIDNEY FAILURE, UNSPECIFIED (4) Diabetes Code(s): E11.9 - TYPE 2 DIABETES MELLITUS WITHOUT COMPLICATIONS (5) Hypercapnic respiratory failure Code(s): J96.92 - RESPIRATORY FAILURE, UNSPECIFIED WITH HYPERCAPNIA (6) Hypothermia Code(s): T68.XXXA - HYPOTHERMIA, INITIAL ENCOUNTER (7) Morbid obesity Code(s): E66.01 - MORBID (SEVERE) OBESITY DUE TO EXCESS CALORIES Assessment/Plan Current Medications Generic Name Dose Route Start Last Admin Trade Name Freq PRN Reason Stop Dose Admin Acetaminophen 650 mg 09/16/19 15:24 09/17/19 22:26 Tylenol - PO 650 mg Q6H PRN Administration Fever Or Pain Amlodipine Besylate 10 mg 09/17/19 10:00 09/25/19 09:47 Norvasc - PO 10 mg DAILY ZOE Administration Atorvastatin Calcium 40 mg 09/16/19 22:00 09/24/19 21:55 Lipitor - PO 40 mg HS ZOE Administration Famotidine 20 mg 09/18/19 10:00 09/24/19 14:13 Pepcid - PO 20 mg Q2D ZOE Administration Sodium Chloride 250 mls @ 3,000 mls/hr 09/24/19 08:55 Normal Saline - IV 09/25/19 08:55 PRN PRN Hypotension during Dialysis Insulin Aspart 1 vial 09/20/19 11:06 09/25/19 06:16 Novolog Vial Sliding Scale - SQ Not Given DAILY@0700 [facility] Protocol Labetalol HCl 200 mg 09/16/19 22:00 09/25/19 06:11 Normodyne - PO 200 mg TID ZOE Administration Levothyroxine Sodium 200 mcg/ 225 mcg 09/17/19 07:00 09/25/19 06:12 Levothyroxine Sodium 25 mcg PO 225 mcg DAILY@0700 [facility] Administration Multivitamins/Minerals/Vitamin C 1 tab 09/19/19 10:00 09/25/19 09:47 Tab-A-Vit - PO 1 tab DAILY ZOE Administration Paroxetine HCl 40 mg 09/17/19 10:00 09/25/19 09:47 Paxil - PO 40 mg DAILY ZOE Administration Impression 1. ESRD 2. fluid overload 3. acute respiratory failure 4. hypothyroidism with tsh of 100 5. 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 urine tox pos for mdma 7. mild rhabdo 8. hepatitis B Plan - pt tolerated HD yesterday - 3 k bath on hd - replace potassium - pending placement in Hep B stationed unit - pt refused kidney biopsy - renal diet - fistula with thrill and bruit
--- NOTE | 2019-09-25 17:38 | PN ---
Progress Note (short form) - Note Progress Note: 54 year old female history of HTN, HLD, DM COPD, Anemia thyroid cancer. Patient came with ams and had CHF, renal failure , anemia . James was intubated, she was hypothermic. She is on sedation . Ganesh has ct head and there is mild dilation of ventricles. patient has fistula made yesterday on left arm. no new neurological symptoms NEUROLOGICAL EXAMINATION neck is supple , hypertensive, alert oriented x 3( knows her name where she is , is able to tell me today is september 06 but mistake on year) pupils reactive no face asymmetry moving all ext , generalized proximal weakness rest of neuro exam is not possible ct head reviewed and mild ventricular dilatation and this could be due to intercurrent illness Assessment/Plan2 year old female history of HTN, HLD, DM COPD, Anemia thyroid cancer. Patient came with ams and had CHF, renal failure , anemia . Plan: continue current level of care. waiting for placement Thanking you so much Hill Hayden MD
[2019-09-25] MEDS: ATORVASTATIN CA 40 MG TABLET (FP) PO SCH (21:03)
[2019-09-26] MEDS: INSULIN SLIDING SCALE (NOVOLOG) 1 VIAL SQ SCH (06:02)
[2019-09-26] MEDS ORDERED: LABETALOL HCL 100 MG TABLET (FP) ONE ×3 (06:03→22:35)
[2019-09-26] MEDS ORDERED: PT OWN MED DRAWER 7, Y5N ONE (06:04)
[2019-09-26] MEDS: LABETALOL HCL 200 MG TABLET (FP) PO SCH ×3 (06:07→23:03)
[2019-09-26] MEDS: LEVOTHYROXINE 200 MCG, LEVOTHYROXINE 25 MCG PO SCH (06:08)
--- NOTE | 2019-09-26 08:06 | PN ---
Progress Note, Physician Chief Complaint: Patient seen and examined at the bedside. Stating she is signing out AMA "I'm getting dressed and leaving". Still awaiting insurance clearance for HD placement. History of Present Illness: Patient is a 54 year old female with a significant past medical history of hypertension, hyperlipidemia, diabetes, COPD, anemia, thyroid cancer 6 years ago. Patient brought into the ED 08/25/19 for altered mental status, acute shortness of breath, metabolic acidosis. Hospital course was complicated by myxedema coma, LUCY reuring dialysis She is pending outpatient dialysis center acceptance as she is hep b+ and will need isolation - Current Medication List Current Medications: Active Medications Acetaminophen (Tylenol -) 650 mg PO Q6H PRN PRN Reason: Fever Or Pain Last Admin: 09/17/19 22:26 Dose: 650 mg Amlodipine Besylate (Norvasc -) 10 mg PO DAILY [facility] Last Admin: 09/25/19 09:47 Dose: 10 mg Atorvastatin Calcium (Lipitor -) 40 mg PO HS [facility] Last Admin: 09/25/19 21:03 Dose: 40 mg Famotidine (Pepcid -) 20 mg PO Q2D [facility] Last Admin: 09/24/19 14:13 Dose: 20 mg Sodium Chloride (Normal Saline -) 250 mls @ 3,000 mls/hr IV PRN PRN PRN Reason: Hypotension during Dialysis Stop: 09/25/19 08:55 Insulin Aspart (Novolog Vial Sliding Scale -) 1 vial SQ DAILY@0700 [facility]; Protocol Last Admin: 09/26/19 06:02 Dose: Not Given Labetalol HCl (Normodyne -) 200 mg PO TID [facility] Last Admin: 09/26/19 06:07 Dose: 200 mg Levothyroxine Sodium 200 mcg/ (Levothyroxine Sodium 25 mcg) 225 mcg PO DAILY@ 0700 [facility] Last Admin: 09/26/19 06:08 Dose: 225 mcg Multivitamins/Minerals/Vitamin C (Tab-A-Vit -) 1 tab PO DAILY [facility] Last Admin: 09/25/19 09:47 Dose: 1 tab Paroxetine HCl (Paxil -) 40 mg PO DAILY [facility] Last Admin: 09/25/19 09:47 Dose: 40 mg - Objective Vital Signs: Vital Signs Temperature 98 F 09/26/19 06:00 Pulse Rate 74 09/26/19 06:00 Respiratory Rate 18 09/26/19 06:00 Blood Pressure 143/78 09/26/19 06:00 O2 Sat by Pulse Oximetry (%) 95 09/25/19 21:00 Additional Findings/Remarks: GENERAL: The patient is awake, alert and in no acute distress. HEAD: Normal with no signs of trauma. EYES: PERRL, extraocular movements intact, sclera anicteric, conjunctiva clear. No ptosis. ENT: Ears normal, nares patent, oropharynx clear without exudates, moist mucous membranes. NECK: Trachea midline, full range of motion, supple. LUNGS: clear to auscultation bilaterally, stable oxygen saturations on room air HEART: Regular rate and rhythm ABDOMEN: Soft, nontender, nondistended, normoactive bowel sounds, no guarding EXTREMITIES: no edema. AV fistula with +Bruit +thrill NEUROLOGICAL: awake, alert, cooperative, anxious at times. PSYCH: Normal mood, normal affect. SKIN: Warm, dry, normal turgor, no rashes or lesions noted Labs: CBC, BMP 09/25/19 07:30 09/25/19 12:25 INR, PTT INR 0.99 (0.83-1.09) 09/05/19 13:45 Problem List - Problems (1) HTN (hypertension) Assessment/Plan: c/w norvasc 10mg & labetolol 200mg tid Code(s): I10 - ESSENTIAL (PRIMARY) HYPERTENSION (2) HLD (hyperlipidemia) Assessment/Plan: c/w atorvastatin Code(s): E78.5 - HYPERLIPIDEMIA, UNSPECIFIED (3) COPD (chronic obstructive pulmonary disease) Assessment/Plan: duo nebs q4h completed course of antibiotics supplemental O2 to maintain SpO2 >90% Code(s): J44.9 - CHRONIC OBSTRUCTIVE PULMONARY DISEASE, UNSPECIFIED (4) Anemia Assessment/Plan: chronic anemia Hgb 7.8 continue to monitor Code(s): D64.9 - ANEMIA, UNSPECIFIED Qualifiers: Other causes of anemia: chronic disease, other (5) Thyroid cancer Code(s): C73 - MALIGNANT NEOPLASM OF THYROID GLAND (6) Acute respiratory failure Assessment/Plan: resolved tolerating RA Code(s): J96.00 - ACUTE RESPIRATORY FAILURE, UNSP W HYPOXIA OR HYPERCAPNIA (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 MDMA screen + in urine on 09/13, metabolite negative possible false positive r/t to labetolol Code(s): F16.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 ABUSE, UNCOMPLICATED (8) LCUY (acute kidney injury) Assessment/Plan: HD as per renal avoid nephrotoxic agents Code(s): N17.9 - ACUTE KIDNEY FAILURE, UNSPECIFIED (9) Acute metabolic encephalopathy Assessment/Plan: resolved avoid any sedating agents Code(s): G93.41 - METABOLIC ENCEPHALOPATHY (10) Morbid obesity Assessment/Plan: counseled on weight loss Code(s): E66.01 - MORBID (SEVERE) OBESITY DUE TO EXCESS CALORIES (11) Prophylactic measure Assessment/Plan: FEN no additional IVF renal diet monitor electrolytes DVT SCDs Dispo maintain as inpatient full code discharge planning-pending dialysis center acceptance threatening to leave AMA. risks explained to patient and papers in chart. Code(s): Z29.9 - ENCOUNTER FOR PROPHYLACTIC MEASURES, UNSPECIFIED (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 Assessment/Plan: mental status improved Novolog SS coverage being followed by websphere developer On Prednisone 10mg QD, continue for one more day, then Prednisone 5mg for 3 days and then D/C on discharge as per endodrine- Pt go go home on LT4 225 and Prednisone if necessary repeat TFT in 2 weeks [facility] Code(s): E03.5 - MYXEDEMA COMA (13) Hepatitis B Assessment/Plan: Chronic hepatitis B recommended to have outpatient evaluation for HBV DNA level, alpha-fetoprotein. Code(s): B19.10 - UNSPECIFIED VIRAL HEPATITIS B WITHOUT HEPATIC COMA Qualifiers: Viral hepatitis chronicity: chronic Visit type - Emergency Visit Emergency Visit: Yes ED Registration Date: 08/25/19 Care time: The patient presented to the Emergency Department on the above date and was hospitalized for further evaluation of their emergent condition. - New Patient This patient is new to me today: No - Critical Care Critical Care patient: No - Discharge Referral Referred to [facility] No
--- NOTE | 2019-09-26 09:18 | PN ---
Progress Note (short form) - Note Progress Note: 54 year old female history of HTN, HLD, DM COPD, Anemia thyroid cancer. Patient came with ams and had CHF, renal failure , anemia . James was intubated, she was hypothermic. She is on sedation . Ganesh has ct head and there is mild dilation of ventricles. patient has fistula made yesterday on left arm. no new neurological symptoms, waiting for placement NEUROLOGICAL EXAMINATION neck is supple , hypertensive, alert oriented x 3( knows her name where she is , is able to tell me today is september 06 but mistake on year) pupils reactive no face asymmetry moving all ext , generalized proximal weakness rest of neuro exam is not possible ct head reviewed and mild ventricular dilatation and this could be due to intercurrent illness Assessment/Plan4 year old female history of HTN, HLD, DM COPD, Anemia thyroid cancer. Patient came with ams and had CHF, renal failure , anemia . Plan: continue current level of care. waiting for placement s/w following her for short term rehabplacement Thanking you so much Hill Hayden MD
--- NOTE | 2019-09-26 09:24 | PN ---
Progress Note (short form) - Note Progress Note: Feels good Denies any complaints Eager to go home Vital Signs Period Temp Pulse Resp BP Sys/Amos Pulse Ox Last 24 Hr 98 F-98.8 F 69-74 18-20 123-143/59-78 94-95 PE: awake, alert, Neck: Supple LUngs: CTA CVs: S1S2 Abd: Benign EXt: No edema CMP Sodium 139 mmol/L (136-145) 09/25/19 07:30 Potassium 3.2 mmol/L (3.5-5.1) L 09/25/19 12:25 Chloride 102 mmol/L (98-107) 09/25/19 07:30 Carbon Dioxide 31 mmol/L (21-32) 09/25/19 07:30 Anion Gap 6 MMOL/L (8-16) L 09/25/19 07:30 BUN 9.9 mg/dL (7-18) 09/25/19 07:30 Creatinine 3.6 mg/dL (0.55-1.3) H 09/25/19 07:30 Est GFR (CKD-EPI)AfAm 15.94 09/25/19 07:30 Est GFR (CKD-EPI)NonAf 13.76 09/25/19 07:30 POC Glucometer 108 UNITS (80-120) 09/26/19 05:53 Random Glucose 98 mg/dL (74-106) 09/25/19 07:30 Hemoglobin A1c % 6.6 % (4.2-6.3) H 09/12/19 09:20 Lactic Acid 0.8 mmol/L (0.4-2.0) 09/17/19 11:28 Calcium 7.4 mg/dL (8.5-10.1) L 09/25/19 07:30 Phosphorus 4.2 mg/dL (2.5-4.9) 09/04/19 05:15 Magnesium 1.5 mg/dL (1.8-2.4) L 09/25/19 07:30 Total Bilirubin 0.6 mg/dL (0.2-1) 09/25/19 07:30 Direct Bilirubin 0.2 mg/dL (0.0-0.2) 08/26/19 05:54 AST 26 U/L (15-37) 09/25/19 07:30 ALT 26 U/L (13-61) 09/25/19 07:30 Alkaline Phosphatase 272 U/L (45-117) H 09/25/19 07:30 Ammonia 24.90 umol/L (11-32) 08/25/19 11:00 Creatine Kinase 1133 U/L (26-192) H 08/26/19 05:54 Creatine Kinase Index 0.8 % (0.0-5.0) 08/26/19 05:54 CK-MB (CK-2) 9.5 ng/mL (0.5-3.6) H 08/26/19 05:54 Troponin I < 0.02 ng/ml (0.00-0.05) 08/26/19 05:54 B-Natriuretic Peptide 3649.4 pg/ml (5-125) H 08/25/19 11:00 Total Protein 6.5 g/dl (6.4-8.2) 09/25/19 07:30 Total Protein (PEP) 6.2 g/dL (6.0-8.5) 09/02/19 15:55 Albumin 2.6 g/dl (3.4-5.0) L 09/25/19 07:30 Albumin (PEP) 2.6 gm/dl (2.9-4.4) L 09/02/19 15:55 Globulin 3.6 g/dL (2.2-3.9) 09/02/19 15:55 Albumin/Globulin Ratio 0.7 (0.7-1.7) 09/02/19 15:55 Beta Globulins 0.7 gm/dL (0.7-1.3) 09/02/19 15:55 Beta-Hydroxybutyrate 1.1 mg/dL (0.2-2.8) 08/25/19 11:00 Procalcitonin 1.29 ng/mL (0.00-0.08) H 08/25/19 13:41 TSH 52.00 uIU/ml (0.358-3.74) H 09/25/19 07:30 Free T4 1.44 ng/dl (0.76-1.46) 09/25/19 07:30 Thyroxine (T4) 3.2 ug/dl (4.5-13.9) L 08/25/19 11:00 Free T3 0.8 pg/ml (2.0-4.4) L 09/09/19 08:05 Resin T3 Uptake 30.3 % (30-39) 08/26/19 05:54 Serum , Qual Negative 08/30/19 15:40 Cortisol Pre Dose Time 40.10 mcg/dL (.) 08/25/19 12:46 Current Medications Generic Name Dose Route Start Last Admin Trade Name Freq PRN Reason Stop Dose Admin Acetaminophen 650 mg 09/16/19 15:24 09/17/19 22:26 Tylenol - PO 650 mg Q6H PRN Administration Fever Or Pain Amlodipine Besylate 10 mg 09/17/19 10:00 09/25/19 09:47 Norvasc - PO 10 mg DAILY ZOE Administration Atorvastatin Calcium 40 mg 09/16/19 22:00 09/25/19 21:03 Lipitor - PO 40 mg HS ZOE Administration Famotidine 20 mg 09/18/19 10:00 09/24/19 14:13 Pepcid - PO 20 mg Q2D ZOE Administration Sodium Chloride 250 mls @ 3,000 mls/hr 09/24/19 08:55 Normal Saline - IV 09/25/19 08:55 PRN PRN Hypotension during Dialysis Insulin Aspart 1 vial 09/20/19 11:06 09/26/19 06:02 Novolog Vial Sliding Scale - SQ Not Given DAILY@0700 [facility] Protocol Labetalol HCl 200 mg 09/16/19 22:00 09/26/19 06:07 Normodyne - PO 200 mg TID ZOE Administration Levothyroxine Sodium 200 mcg/ 225 mcg 09/17/19 07:00 09/26/19 06:08 Levothyroxine Sodium 25 mcg PO 225 mcg DAILY@0700 [facility] Administration Multivitamins/Minerals/Vitamin C 1 tab 09/19/19 10:00 09/25/19 09:47 Tab-A-Vit - PO 1 tab DAILY [facility] Administration Paroxetine HCl 40 mg 09/17/19 10:00 09/25/19 09:47 Paxil - PO 40 mg DAILY ZOE Administration AP: Respiratory failure: resolved AMS/ Toxic metabolic encephalopathy: resolved Hypothyrodism Throid ca s/p Thyroidectomy Morbid obesity LUCY on CKD DM Anemia with drop in H/H H/o Renal stones Elevated Alk Phos TSH 52, 114.0 from 60.2, 72.30 . FT4 1.44, 0.75 from 0.24 Change to LT4 250mcg PO If pt is discharged, Pt go go home on LT4 250 Repeat TFT in 4 weeks and change dose as necessary. [facility] QAC[facility] Novolog SS coverage Will f/u Problem List - Problems (1) AMS (altered mental status) Code(s): R41.82 - ALTERED MENTAL STATUS, UNSPECIFIED (2) Acute metabolic encephalopathy Code(s): G93.41 - METABOLIC ENCEPHALOPATHY (3) Acute renal failure Code(s): N17.9 - ACUTE KIDNEY FAILURE, UNSPECIFIED (4) Diabetes Code(s): E11.9 - TYPE 2 DIABETES MELLITUS WITHOUT COMPLICATIONS (5) Hypercapnic respiratory failure Code(s): J96.92 - RESPIRATORY FAILURE, UNSPECIFIED WITH HYPERCAPNIA (6) Hypothermia Code(s): T68.XXXA - HYPOTHERMIA, INITIAL ENCOUNTER (7) Metabolic acidosis Code(s): E87.2 - ACIDOSIS (8) Morbid obesity Code(s): E66.01 - MORBID (SEVERE) OBESITY DUE TO EXCESS CALORIES
[2019-09-26] MEDS: PARoxetine HCL 20 MG TABLET PO SCH (09:50)
[2019-09-26] MEDS: FAMOTIDINE 20 MG TABLET PO SCH (09:50)
[2019-09-26] MEDS: amLODIPine BESYLATE 10 MG TABLET (FP) PO SCH (09:50)
[2019-09-26] MEDS: MULTIVITAMINS (DAILY MVI) TABLET (FP) PO SCH (09:50)
--- NOTE | 2019-09-26 10:07 | PN ---
Progress Note (short form) - Note Progress Note: PULMONARY Denies shortness of breath, cough or wheezing. Awaiting placement. Vital Signs Period Temp Pulse Resp BP Sys/Amos Pulse Ox Last 24 Hr 98 F-98.8 F 69-74 18-20 123-143/59-78 95 Gen: NAD at rest Heart: RRR Lung: decreased breath sounds at the bases Abd: soft, nontender Ext: no edema CBC, BMP 09/25/19 07:30 09/25/19 12:25 Active Medications Acetaminophen (Tylenol -) 650 mg PO Q6H PRN PRN Reason: Fever Or Pain Last Admin: 09/17/19 22:26 Dose: 650 mg Amlodipine Besylate (Norvasc -) 10 mg PO DAILY [facility] Last Admin: 09/26/19 09:50 Dose: 10 mg Atorvastatin Calcium (Lipitor -) 40 mg PO HS [facility] Last Admin: 09/25/19 21:03 Dose: 40 mg Famotidine (Pepcid -) 20 mg PO Q2D [facility] Last Admin: 09/26/19 09:50 Dose: 20 mg Sodium Chloride (Normal Saline -) 250 mls @ 3,000 mls/hr IV PRN PRN PRN Reason: Hypotension during Dialysis Stop: 09/25/19 08:55 Insulin Aspart (Novolog Vial Sliding Scale -) 1 vial SQ DAILY@0700 [facility]; Protocol Last Admin: 09/26/19 06:02 Dose: Not Given Labetalol HCl (Normodyne -) 200 mg PO TID [facility] Last Admin: 09/26/19 06:07 Dose: 200 mg Levothyroxine Sodium (Synthroid -) 250 mcg PO DAILY@0700 [facility] Multivitamins/Minerals/Vitamin C (Tab-A-Vit -) 1 tab PO DAILY [facility] Last Admin: 09/26/19 09:50 Dose: 1 tab Paroxetine HCl (Paxil -) 40 mg PO DAILY [facility] Last Admin: 09/26/19 09:50 Dose: 40 mg A/P Acute Hypercapneic Respiratory Failure improving Myxedema Coma resolved UTI treated Acute Kidney Injury requiring HD Volume Overload improving Pleural Effusions COPD DM Anemia - HD per renal - monitor urine output, creatinine - completed antibiotics - synthroid - inhaled bronchodilators - O2 to keep SpO2 >90% - PO as tolerated - DVT prophylaxis - d/c planning in progress
[2019-09-26 11:04] LABS: BASO % 0.4 % (0-2.0); HEMATOCRIT 22.9 % (32.4-45.2); HEMOGLOBIN 7.8 GM/dL (10.7-15.3); LYMPH % 44.3 % (8-40); MCH 30.5 pg (25.7-33.7); MCHC 34.1 g/dl (32.0-36.0); MEAN CELL VOLUME 89.2 fl (80-96); MEAN PLT VOLUME 8.1 fl (7.5-11.1); MONO % 5.9 % (3.8-10.2); NEUT % 49.4 % (42.8-82.8); PLATELET COUNT 231 K/MM3 (134-434); RBC 2.57 M/mm3 (3.60-5.2); RDW 15.4 % (11.6-15.6); WHITE BLOOD COUNT 5.6 K/mm3 (4.0-10.0)
[2019-09-26 11:32] LABS: ALBUMIN 2.6 g/dl (3.4-5.0); BILIRUBIN,TOTAL 0.3 mg/dL (0.2-1); CALCIUM 7.4 mg/dL (8.5-10.1); CREATININE 4.8 mg/dL (0.55-1.3); MAGNESIUM 1.5 mg/dL (1.8-2.4); POTASSIUM 3.3 mmol/L (3.5-5.1); TOT PROT 6.2 g/dl (6.4-8.2)
--- NOTE | 2019-09-26 12:56 | PN ---
Progress Note, Physician History of Present Illness: stable no new issues - Current Medication List Current Medications: Active Medications Acetaminophen (Tylenol -) 650 mg PO Q6H PRN PRN Reason: Fever Or Pain Last Admin: 09/17/19 22:26 Dose: 650 mg Amlodipine Besylate (Norvasc -) 10 mg PO DAILY [facility] Last Admin: 09/26/19 09:50 Dose: 10 mg Atorvastatin Calcium (Lipitor -) 40 mg PO HS [facility] Last Admin: 09/25/19 21:03 Dose: 40 mg Famotidine (Pepcid -) 20 mg PO Q2D [facility] Last Admin: 09/26/19 09:50 Dose: 20 mg Sodium Chloride (Normal Saline -) 250 mls @ 3,000 mls/hr IV PRN PRN PRN Reason: Hypotension during Dialysis Stop: 09/25/19 08:55 Insulin Aspart (Novolog Vial Sliding Scale -) 1 vial SQ DAILY@0700 [facility]; Protocol Last Admin: 09/26/19 06:02 Dose: Not Given Labetalol HCl (Normodyne -) 200 mg PO TID [facility] Last Admin: 09/26/19 06:07 Dose: 200 mg Levothyroxine Sodium (Synthroid -) 250 mcg PO DAILY@0700 [facility] Multivitamins/Minerals/Vitamin C (Tab-A-Vit -) 1 tab PO DAILY [facility] Last Admin: 09/26/19 09:50 Dose: 1 tab Paroxetine HCl (Paxil -) 40 mg PO DAILY [facility] Last Admin: 09/26/19 09:50 Dose: 40 mg - Objective Vital Signs: Vital Signs Temperature 98.4 F 09/26/19 12:10 Pulse Rate 69 09/26/19 12:15 Respiratory Rate 18 09/26/19 12:15 Blood Pressure 142/72 09/26/19 12:15 O2 Sat by Pulse Oximetry (%) 95 09/26/19 10:00 Constitutional: Yes: No Distress, Calm Cardiovascular: Yes: S1, S2 Musculoskeletal: Yes: WNL Extremities: Yes: WNL Neurological: Yes: Alert, Oriented Psychiatric: Yes: Alert Labs: CBC, BMP 09/26/19 10:30 09/26/19 10:30 INR, PTT INR 0.99 (0.83-1.09) 09/05/19 13:45 Assessment/Plan Problem List - Problems (1) LUCY (acute kidney injury) Code(s): N17.9 - ACUTE KIDNEY FAILURE, UNSPECIFIED (2) AMS (altered mental status) Code(s): R41.82 - ALTERED MENTAL STATUS, UNSPECIFIED (3) Acute metabolic encephalopathy Code(s): G93.41 - METABOLIC ENCEPHALOPATHY (4) Acute respiratory failure Code(s): J96.00 - ACUTE RESPIRATORY FAILURE, UNSP W HYPOXIA OR HYPERCAPNIA (5) Anemia Code(s): D64.9 - ANEMIA, UNSPECIFIED (6) COPD (chronic obstructive pulmonary disease) Code(s): J44.9 - CHRONIC OBSTRUCTIVE PULMONARY DISEASE, UNSPECIFIED (7) Diabetes Code(s): E11.9 - TYPE 2 DIABETES MELLITUS WITHOUT COMPLICATIONS (8) HTN (hypertension) Code(s): I10 - ESSENTIAL (PRIMARY) HYPERTENSION (9) Hypercapnic respiratory failure Code(s): J96.92 - RESPIRATORY FAILURE, UNSPECIFIED WITH HYPERCAPNIA (10) Hypothermia Code(s): T68.XXXA - HYPOTHERMIA, INITIAL ENCOUNTER (11) Morbid obesity Code(s): E66.01 - MORBID (SEVERE) OBESITY DUE TO EXCESS CALORIES (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 physio
[2019-09-26] MEDS ORDERED: EPOETIN ALFA 6,000 UNIT, EPOETIN ALFA 2,000 UNIT IVPUSH ONE (13:30)
[2019-09-26] MEDS ORDERED: POTASSIUM CHLORIDE TABS 20 MEQ TABLET.ER (FP) PO ONE (14:06)
--- NOTE | 2019-09-26 14:10 | PN ---
Progress Note, Physician History of Present Illness: Pt seen and examined at bedside. She is awake and alert. She is eager to go home. - Current Medication List Current Medications: Active Medications Acetaminophen (Tylenol -) 650 mg PO Q6H PRN PRN Reason: Fever Or Pain Last Admin: 09/17/19 22:26 Dose: 650 mg Amlodipine Besylate (Norvasc -) 10 mg PO DAILY [facility] Last Admin: 09/26/19 09:50 Dose: 10 mg Atorvastatin Calcium (Lipitor -) 40 mg PO HS [facility] Last Admin: 09/25/19 21:03 Dose: 40 mg Famotidine (Pepcid -) 20 mg PO Q2D [facility] Last Admin: 09/26/19 09:50 Dose: 20 mg Sodium Chloride (Normal Saline -) 250 mls @ 3,000 mls/hr IV PRN PRN PRN Reason: Hypotension during Dialysis Stop: 09/25/19 08:55 Insulin Aspart (Novolog Vial Sliding Scale -) 1 vial SQ DAILY@0700 [facility]; Protocol Last Admin: 09/26/19 06:02 Dose: Not Given Labetalol HCl (Normodyne -) 200 mg PO TID [facility] Last Admin: 09/26/19 06:07 Dose: 200 mg Levothyroxine Sodium (Synthroid -) 250 mcg PO DAILY@0700 [facility] Multivitamins/Minerals/Vitamin C (Tab-A-Vit -) 1 tab PO DAILY [facility] Last Admin: 09/26/19 09:50 Dose: 1 tab Paroxetine HCl (Paxil -) 40 mg PO DAILY [facility] Last Admin: 09/26/19 09:50 Dose: 40 mg Potassium Chloride (K-Dur -) 40 meq PO ONCE ONE Stop: 09/26/19 14:07 - Objective Vital Signs: Vital Signs Temperature 98.4 F 09/26/19 12:10 Pulse Rate 68 09/26/19 13:15 Respiratory Rate 18 09/26/19 13:15 Blood Pressure 132/64 09/26/19 13:15 O2 Sat by Pulse Oximetry (%) 95 09/26/19 10:00 Constitutional: Yes: Calm Eyes: Yes: Conjunctiva Clear HENT: Yes: Atraumatic Neck: Yes: Supple Cardiovascular: Yes: S1, S2 Respiratory: Yes: CTA Bilaterally Gastrointestinal: Yes: Soft Genitourinary: Yes: WNL Musculoskeletal: Yes: WNL Integumentary: Yes: Tattoos Neurological: Yes: Oriented Psychiatric: Yes: Oriented Labs: CBC, BMP 09/26/19 10:30 09/26/19 10:30 INR, PTT INR 0.99 (0.83-1.09) 09/05/19 13:45 Problem List - Problems (1) AMS (altered mental status) Code(s): R41.82 - ALTERED MENTAL STATUS, UNSPECIFIED (2) Acute metabolic encephalopathy Code(s): G93.41 - METABOLIC ENCEPHALOPATHY (3) Acute renal failure Code(s): N17.9 - ACUTE KIDNEY FAILURE, UNSPECIFIED (4) Diabetes Code(s): E11.9 - TYPE 2 DIABETES MELLITUS WITHOUT COMPLICATIONS (5) Hypercapnic respiratory failure Code(s): J96.92 - RESPIRATORY FAILURE, UNSPECIFIED WITH HYPERCAPNIA (6) Hypothermia Code(s): T68.XXXA - HYPOTHERMIA, INITIAL ENCOUNTER (7) Morbid obesity Code(s): E66.01 - MORBID (SEVERE) OBESITY DUE TO EXCESS CALORIES Assessment/Plan Current Medications Generic Name Dose Route Start Last Admin Trade Name Freq PRN Reason Stop Dose Admin Acetaminophen 650 mg 09/16/19 15:24 09/17/19 22:26 Tylenol - PO 650 mg Q6H PRN Administration Fever Or Pain Amlodipine Besylate 10 mg 09/17/19 10:00 09/26/19 09:50 Norvasc - PO 10 mg DAILY [facility] Administration Atorvastatin Calcium 40 mg 09/16/19 22:00 09/25/19 21:03 Lipitor - PO 40 mg HS [facility]OE Administration Famotidine 20 mg 09/18/19 10:00 09/26/19 09:50 Pepcid - PO 20 mg Q2D [facility] Administration Sodium Chloride 250 mls @ 3,000 mls/hr 09/24/19 08:55 Normal Saline - IV 09/25/19 08:55 PRN PRN Hypotension during Dialysis Insulin Aspart 1 vial 09/20/19 11:06 09/26/19 06:02 Novolog Vial Sliding Scale - SQ Not Given DAILY@0700 [facility] Protocol Labetalol HCl 200 mg 09/16/19 22:00 09/26/19 06:07 Normodyne - PO 200 mg TID [facility] Administration Levothyroxine Sodium 250 mcg 09/27/19 07:00 Synthroid - PO DAILY@0700 [facility] Multivitamins/Minerals/Vitamin C 1 tab 09/19/19 10:00 09/26/19 09:50 Tab-A-Vit - PO 1 tab DAILY [facility] Administration Paroxetine HCl 40 mg 09/17/19 10:00 09/26/19 09:50 Paxil - PO 40 mg DAILY [facility] Administration Potassium Chloride 40 meq 09/26/19 14:06 K-Dur - PO 09/26/19 14:07 ONCE ONE Impression 1. ESRD 2. fluid overload 3. acute respiratory failure 4. hypothyroidism with tsh of 100 5. 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 urine tox pos for mdma 7. mild rhabdo 8. hepatitis B Plan - HD today - replace potassium - pending placement - pt refused kidney biopsy - renal diet - fistula with thrill and bruit
[2019-09-26] MEDS ORDERED: MAGNESIUM OXIDE 400 MG TABLET (FP) PO ONE (15:57)
[2019-09-26 19:08] LABS: HEP B CORE AB, TOT Positive (Negative)
[2019-09-26] MEDS: ATORVASTATIN CA 40 MG TABLET (FP) PO SCH (23:02)
[2019-09-27] MEDS ORDERED: LABETALOL HCL 100 MG TABLET (FP) ONE ×3 (06:44→22:17)
[2019-09-27] MEDS: LABETALOL HCL 200 MG TABLET (FP) PO SCH ×3 (06:47→22:18)
[2019-09-27] MEDS: LEVOTHYROXINE NA 125 MCG TABLET (FP) PO SCH (06:47)
[2019-09-27] MEDS: INSULIN SLIDING SCALE (NOVOLOG) 1 VIAL SQ SCH (06:48)
[2019-09-27] MEDS ORDERED: LEVOTHYROXINE NA 200 MCG TABLET PO SCH (07:00)
[2019-09-27] MEDS ORDERED: LEVOTHYROXINE 125 MCG, LEVOTHYROXINE 100 MCG PO SCH (07:00)
[2019-09-27 09:19] LABS: BASO % 0.3 % (0-2.0); HEMATOCRIT 23.5 % (32.4-45.2); HEMOGLOBIN 8.1 GM/dL (10.7-15.3); LYMPH % 49.5 % (8-40); MCH 30.6 pg (25.7-33.7); MCHC 34.6 g/dl (32.0-36.0); MEAN CELL VOLUME 88.6 fl (80-96); MEAN PLT VOLUME 7.9 fl (7.5-11.1); MONO % 6.3 % (3.8-10.2); NEUT % 43.9 % (42.8-82.8); PLATELET COUNT 242 K/MM3 (134-434); RBC 2.65 M/mm3 (3.60-5.2); RDW 15.5 % (11.6-15.6); WHITE BLOOD COUNT 6.1 K/mm3 (4.0-10.0)
[2019-09-27 09:47] LABS: ALBUMIN 2.6 g/dl (3.4-5.0); BILIRUBIN,TOTAL 0.3 mg/dL (0.2-1); BLOOD UREA NITROGEN 11.6 mg/dL (7-18); CALCIUM 7.7 mg/dL (8.5-10.1); CREATININE 3.6 mg/dL (0.55-1.3); MAGNESIUM 1.4 mg/dL (1.8-2.4); PHOSPHOROUS 1.5 mg/dL (2.5-4.9); POTASSIUM 3.8 mmol/L (3.5-5.1); TOT PROT 6.3 g/dl (6.4-8.2)
[2019-09-27] MEDS: PARoxetine HCL 20 MG TABLET PO SCH (09:56)
[2019-09-27] MEDS: amLODIPine BESYLATE 10 MG TABLET (FP) PO SCH (09:56)
[2019-09-27] MEDS: MULTIVITAMINS (DAILY MVI) TABLET (FP) PO SCH (09:56)
--- NOTE | 2019-09-27 10:04 | PN ---
Progress Note (short form) - Note Progress Note: 54 year old female history of HTN, HLD, DM COPD, Anemia thyroid cancer. Patient came with ams and had CHF, renal failure , anemia . James was intubated, she was hypothermic. She is on sedation . Ganesh has ct head and there is mild dilation of ventricles. patient has fistula made yesterday on left arm. no new neurological symptoms, waiting for placement , NEUROLOGICAL EXAMINATION neck is supple , hypertensive, alert oriented x 3( knows her name where she is , is able to tell me today is september 06 but mistake on year) pupils reactive no face asymmetry moving all ext ct head reviewed and mild ventricular dilatation and this could be due to intercurrent illness Assessment/Plan 54 year old female history of HTN, HLD, DM COPD, Anemia thyroid cancer. Patient came with ams and had CHF, renal failure , anemia . Plan: continue current level of care. waiting for placement s/w following her for short term rehab Thanking you so much Hill Hayden MD
--- NOTE | 2019-09-27 12:43 | PN ---
Progress Note (short form) - Note Progress Note: PULMONARY Resting in NAD. Denies CP or SOB. No acute events overnight Awaiting placement VSS/AFEBRILE Gen: NAD Heart: RRR Lung: decreased breath sounds at the bases Abd: soft, nontender Ext: + edema improving labs/meds/notes reviewed Acute Hypercapneic Respiratory Failure Myxedema Coma UTI Acute Kidney Injury requiring HD Volume Overload Pleural Effusions COPD DM Anemia - HD per renal - Prednisone & synthroid per Endocrine - O2 as needed - PO as tolerated - DVT/GI prophylaxis - DC planning Ritu MONTOYA MD
--- NOTE | 2019-09-27 14:07 | PN ---
Progress Note, Physician History of Present Illness: Pt seen and examined at bedside. She is awake and appears comfortable. - Current Medication List Current Medications: Active Medications Acetaminophen (Tylenol -) 650 mg PO Q6H PRN PRN Reason: Fever Or Pain Last Admin: 09/17/19 22:26 Dose: 650 mg Amlodipine Besylate (Norvasc -) 10 mg PO DAILY [facility] Last Admin: 09/27/19 09:56 Dose: 10 mg Atorvastatin Calcium (Lipitor -) 40 mg PO HS [facility] Last Admin: 09/26/19 23:02 Dose: 40 mg Famotidine (Pepcid -) 20 mg PO Q2D [facility] Last Admin: 09/26/19 09:50 Dose: 20 mg Sodium Chloride (Normal Saline -) 250 mls @ 3,000 mls/hr IV PRN PRN PRN Reason: Hypotension during Dialysis Stop: 09/25/19 08:55 Insulin Aspart (Novolog Vial Sliding Scale -) 1 vial SQ DAILY@0700 [facility]; Protocol Last Admin: 09/27/19 06:48 Dose: Not Given Labetalol HCl (Normodyne -) 200 mg PO TID [facility] Last Admin: 09/27/19 06:47 Dose: 200 mg Levothyroxine Sodium (Synthroid -) 250 mcg PO DAILY@0700 [facility] Last Admin: 09/27/19 06:47 Dose: 250 mcg Multivitamins/Minerals/Vitamin C (Tab-A-Vit -) 1 tab PO DAILY [facility] Last Admin: 09/27/19 09:56 Dose: 1 tab Paroxetine HCl (Paxil -) 40 mg PO DAILY [facility] Last Admin: 09/27/19 09:56 Dose: 40 mg - Objective Vital Signs: Vital Signs Temperature 98.0 F 09/27/19 09:13 Pulse Rate 67 09/27/19 09:13 Respiratory Rate 20 09/27/19 09:13 Blood Pressure 142/77 09/27/19 09:13 O2 Sat by Pulse Oximetry (%) 96 09/27/19 09:00 Constitutional: Yes: Calm Eyes: Yes: Conjunctiva Clear HENT: Yes: Atraumatic Cardiovascular: Yes: S1, S2 Respiratory: Yes: CTA Bilaterally Gastrointestinal: Yes: Soft, Abdomen, Obese Musculoskeletal: Yes: WNL Edema: No Integumentary: Yes: Tattoos Neurological: Yes: Oriented Psychiatric: Yes: Oriented Labs: CBC, BMP 09/27/19 07:07 09/27/19 07:07 INR, PTT INR 0.99 (0.83-1.09) 09/05/19 13:45 Problem List - Problems (1) AMS (altered mental status) Code(s): R41.82 - ALTERED MENTAL STATUS, UNSPECIFIED (2) Acute metabolic encephalopathy Code(s): G93.41 - METABOLIC ENCEPHALOPATHY (3) Acute renal failure Code(s): N17.9 - ACUTE KIDNEY FAILURE, UNSPECIFIED (4) Diabetes Code(s): E11.9 - TYPE 2 DIABETES MELLITUS WITHOUT COMPLICATIONS (5) Hypercapnic respiratory failure Code(s): J96.92 - RESPIRATORY FAILURE, UNSPECIFIED WITH HYPERCAPNIA (6) Hypothermia Code(s): T68.XXXA - HYPOTHERMIA, INITIAL ENCOUNTER (7) Morbid obesity Code(s): E66.01 - MORBID (SEVERE) OBESITY DUE TO EXCESS CALORIES Assessment/Plan Current Medications Generic Name Dose Route Start Last Admin Trade Name Freq PRN Reason Stop Dose Admin Acetaminophen 650 mg 09/16/19 15:24 09/17/19 22:26 Tylenol - PO 650 mg Q6H PRN Administration Fever Or Pain Amlodipine Besylate 10 mg 09/17/19 10:00 09/27/19 09:56 Norvasc - PO 10 mg DAILY [facility] Administration Atorvastatin Calcium 40 mg 09/16/19 22:00 09/26/19 23:02 Lipitor - PO 40 mg HS [facility] Administration Famotidine 20 mg 09/18/19 10:00 09/26/19 09:50 Pepcid - PO 20 mg Q2D [facility] Administration Sodium Chloride 250 mls @ 3,000 mls/hr 09/24/19 08:55 Normal Saline - IV 09/25/19 08:55 PRN PRN Hypotension during Dialysis Insulin Aspart 1 vial 09/20/19 11:06 09/27/19 06:48 Novolog Vial Sliding Scale - SQ Not Given DAILY@0700 [facility] Protocol Labetalol HCl 200 mg 09/16/19 22:00 09/27/19 06:47 Normodyne - PO 200 mg TID [facility] Administration Levothyroxine Sodium 250 mcg 09/27/19 07:00 09/27/19 06:47 Synthroid - PO 250 mcg DAILY@0700 [facility] Administration Multivitamins/Minerals/Vitamin C 1 tab 09/19/19 10:00 09/27/19 09:56 Tab-A-Vit - PO 1 tab DAILY [facility] Administration Paroxetine HCl 40 mg 09/17/19 10:00 09/27/19 09:56 Paxil - PO 40 mg DAILY [facility] Administration Impression 1. LUCY 2. fluid overload 3. acute respiratory failure 4. hypothyroidism with tsh of 100 5. 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 urine tox pos for mdma 7. mild rhabdo 8. hepatitis B Plan - HD in am - pending placement - pt refused kidney biopsy - renal diet - monitor urine output - clinical trial head rises between treatments
--- NOTE | 2019-09-27 14:14 | PN ---
Progress Note, Physician Chief Complaint: Patient seen and examined at the bedside. Still awaiting acceptance for HD placement. History of Present Illness: Patient is a 54 year old female with a significant past medical history of hypertension, hyperlipidemia, diabetes, COPD, anemia, thyroid cancer 6 years ago. Patient brought into the ED 08/25/19 for altered mental status, acute shortness of breath, metabolic acidosis. Hospital course was complicated by myxedema coma, LUCY reuring dialysis She is pending outpatient dialysis center acceptance as she is hep b+ and will need isolation - Current Medication List Current Medications: Active Medications Acetaminophen (Tylenol -) 650 mg PO Q6H PRN PRN Reason: Fever Or Pain Last Admin: 09/17/19 22:26 Dose: 650 mg Amlodipine Besylate (Norvasc -) 10 mg PO DAILY [facility] Last Admin: 09/27/19 09:56 Dose: 10 mg Atorvastatin Calcium (Lipitor -) 40 mg PO HS [facility] Last Admin: 09/26/19 23:02 Dose: 40 mg Famotidine (Pepcid -) 20 mg PO Q2D [facility] Last Admin: 09/26/19 09:50 Dose: 20 mg Sodium Chloride (Normal Saline -) 250 mls @ 3,000 mls/hr IV PRN PRN PRN Reason: Hypotension during Dialysis Stop: 09/25/19 08:55 Insulin Aspart (Novolog Vial Sliding Scale -) 1 vial SQ DAILY@0700 [facility]; Protocol Last Admin: 09/27/19 06:48 Dose: Not Given Labetalol HCl (Normodyne -) 200 mg PO TID [facility] Last Admin: 09/27/19 06:47 Dose: 200 mg Levothyroxine Sodium (Synthroid -) 250 mcg PO DAILY@0700 [facility] Last Admin: 09/27/19 06:47 Dose: 250 mcg Multivitamins/Minerals/Vitamin C (Tab-A-Vit -) 1 tab PO DAILY [facility] Last Admin: 09/27/19 09:56 Dose: 1 tab Paroxetine HCl (Paxil -) 40 mg PO DAILY [facility] Last Admin: 09/27/19 09:56 Dose: 40 mg - Objective Vital Signs: Vital Signs Temperature 98.0 F 09/27/19 09:13 Pulse Rate 67 09/27/19 09:13 Respiratory Rate 20 09/27/19 09:13 Blood Pressure 142/77 09/27/19 09:13 O2 Sat by Pulse Oximetry (%) 96 09/27/19 09:00 Additional Findings/Remarks: GENERAL: The patient is awake, alert and in no acute distress. HEAD: Normal with no signs of trauma. EYES: PERRL, extraocular movements intact, sclera anicteric, conjunctiva clear. No ptosis. ENT: Ears normal, nares patent, oropharynx clear without exudates, moist mucous membranes. NECK: Trachea midline, full range of motion, supple. LUNGS: clear to auscultation bilaterally, stable oxygen saturations on room air HEART: Regular rate and rhythm ABDOMEN: Soft, nontender, nondistended, normoactive bowel sounds, no guarding EXTREMITIES: no edema. AV fistula with +Bruit +thrill NEUROLOGICAL: awake, alert, cooperative, anxious at times. PSYCH: Normal mood, normal affect. SKIN: Warm, dry, normal turgor, no rashes or lesions noted Labs: CBC, BMP 09/27/19 07:07 09/27/19 07:07 INR, PTT INR 0.99 (0.83-1.09) 09/05/19 13:45 Problem List - Problems (1) HTN (hypertension) Assessment/Plan: c/w norvasc 10mg & labetolol 200mg tid Code(s): I10 - ESSENTIAL (PRIMARY) HYPERTENSION (2) HLD (hyperlipidemia) Assessment/Plan: c/w atorvastatin Code(s): E78.5 - HYPERLIPIDEMIA, UNSPECIFIED (3) COPD (chronic obstructive pulmonary disease) Assessment/Plan: duo nebs q4h completed course of antibiotics off O2 Code(s): J44.9 - CHRONIC OBSTRUCTIVE PULMONARY DISEASE, UNSPECIFIED (4) Anemia Assessment/Plan: chronic anemia Hgb 8.5 continue to monitor Code(s): D64.9 - ANEMIA, UNSPECIFIED Qualifiers: Other causes of anemia: chronic disease, other (5) Thyroid cancer Code(s): C73 - MALIGNANT NEOPLASM OF THYROID GLAND (6) Acute respiratory failure Assessment/Plan: resolved tolerating RA Code(s): J96.00 - ACUTE RESPIRATORY FAILURE, UNSP W HYPOXIA OR HYPERCAPNIA (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 MDMA screen + in urine on 09/13, metabolite negative possible false positive r/t to labetolol Code(s): F16.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 ABUSE, UNCOMPLICATED (8) LUCY (acute kidney injury) Assessment/Plan: HD as per renal avoid nephrotoxic agents Code(s): N17.9 - ACUTE KIDNEY FAILURE, UNSPECIFIED (9) Acute metabolic encephalopathy Assessment/Plan: resolved avoid any sedating agents Code(s): G93.41 - METABOLIC ENCEPHALOPATHY (10) Morbid obesity Assessment/Plan: counseled on weight loss Code(s): E66.01 - MORBID (SEVERE) OBESITY DUE TO EXCESS CALORIES (11) Prophylactic measure Assessment/Plan: FEN no additional IVF renal diet monitor electrolytes DVT SCDs Dispo maintain as inpatient full code discharge planning-pending dialysis center acceptance Code(s): Z29.9 - ENCOUNTER FOR PROPHYLACTIC MEASURES, UNSPECIFIED (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 Assessment/Plan: mental status improved Novolog SS coverage being followed by regional transfer liaison off steroids on discharge as per endodrine- Pt go go home on LT4 225 and Prednisone if necessary BGM QACHS Code(s): E03.5 - MYXEDEMA COMA (13) Hepatitis B Assessment/Plan: Chronic hepatitis B recommended to have outpatient evaluation for HBV DNA level, alpha-fetoprotein. Code(s): B19.10 - UNSPECIFIED VIRAL HEPATITIS B WITHOUT HEPATIC COMA Qualifiers: Viral hepatitis chronicity: chronic Visit type - Emergency Visit Emergency Visit: Yes ED Registration Date: 08/25/19 Care time: The patient presented to the Emergency Department on the above date and was hospitalized for further evaluation of their emergent condition. - New Patient This patient is new to me today: No - Critical Care Critical Care patient: No - Discharge Referral Referred to [facility] Med P.C.: No
--- NOTE | 2019-09-27 14:42 | PN ---
Progress Note, Physician History of Present Illness: stable no new issues - Current Medication List Current Medications: Active Medications Acetaminophen (Tylenol -) 650 mg PO Q6H PRN PRN Reason: Fever Or Pain Last Admin: 09/17/19 22:26 Dose: 650 mg Amlodipine Besylate (Norvasc -) 10 mg PO DAILY [facility] Last Admin: 09/27/19 09:56 Dose: 10 mg Atorvastatin Calcium (Lipitor -) 40 mg PO HS [facility] Last Admin: 09/26/19 23:02 Dose: 40 mg Famotidine (Pepcid -) 20 mg PO Q2D [facility] Last Admin: 09/26/19 09:50 Dose: 20 mg Sodium Chloride (Normal Saline -) 250 mls @ 3,000 mls/hr IV PRN PRN PRN Reason: Hypotension during Dialysis Stop: 09/25/19 08:55 Insulin Aspart (Novolog Vial Sliding Scale -) 1 vial SQ DAILY@0700 [facility]; Protocol Last Admin: 09/27/19 06:48 Dose: Not Given Labetalol HCl (Normodyne -) 200 mg PO TID [facility] Last Admin: 09/27/19 14:42 Dose: 200 mg Levothyroxine Sodium (Synthroid -) 250 mcg PO DAILY@0700 [facility] Last Admin: 09/27/19 06:47 Dose: 250 mcg Multivitamins/Minerals/Vitamin C (Tab-A-Vit -) 1 tab PO DAILY [facility] Last Admin: 09/27/19 09:56 Dose: 1 tab Paroxetine HCl (Paxil -) 40 mg PO DAILY [facility] Last Admin: 09/27/19 09:56 Dose: 40 mg - Objective Vital Signs: Vital Signs Temperature 98.0 F 09/27/19 09:13 Pulse Rate 67 09/27/19 09:13 Respiratory Rate 20 09/27/19 09:13 Blood Pressure 142/77 09/27/19 09:13 O2 Sat by Pulse Oximetry (%) 96 09/27/19 09:00 Constitutional: Yes: No Distress, Calm Cardiovascular: Yes: S1, S2 Respiratory: Yes: Regular, CTA Bilaterally Gastrointestinal: Yes: Normal Bowel Sounds, Soft Musculoskeletal: Yes: WNL Extremities: Yes: WNL Neurological: Yes: Alert, Oriented Psychiatric: Yes: Alert, Oriented Labs: CBC, BMP 09/27/19 07:07 09/27/19 07:07 INR, PTT INR 0.99 (0.83-1.09) 09/05/19 13:45 Assessment/Plan Problem List - Problems (1) LUCY (acute kidney injury) Code(s): N17.9 - ACUTE KIDNEY FAILURE, UNSPECIFIED (2) AMS (altered mental status) Code(s): R41.82 - ALTERED MENTAL STATUS, UNSPECIFIED (3) Acute metabolic encephalopathy Code(s): G93.41 - METABOLIC ENCEPHALOPATHY (4) Acute respiratory failure Code(s): J96.00 - ACUTE RESPIRATORY FAILURE, UNSP W HYPOXIA OR HYPERCAPNIA (5) Anemia Code(s): D64.9 - ANEMIA, UNSPECIFIED (6) COPD (chronic obstructive pulmonary disease) Code(s): J44.9 - CHRONIC OBSTRUCTIVE PULMONARY DISEASE, UNSPECIFIED (7) Diabetes Code(s): E11.9 - TYPE 2 DIABETES MELLITUS WITHOUT COMPLICATIONS (8) HTN (hypertension) Code(s): I10 - ESSENTIAL (PRIMARY) HYPERTENSION (9) Hypercapnic respiratory failure Code(s): J96.92 - RESPIRATORY FAILURE, UNSPECIFIED WITH HYPERCAPNIA (10) Hypothermia Code(s): T68.XXXA - HYPOTHERMIA, INITIAL ENCOUNTER (11) Morbid obesity Code(s): E66.01 - MORBID (SEVERE) OBESITY DUE TO EXCESS CALORIES (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 physio
[2019-09-27] MEDS: ATORVASTATIN CA 40 MG TABLET (FP) PO SCH (22:18)
[2019-09-28] MEDS ORDERED: LABETALOL HCL 100 MG TABLET (FP) ONE ×3 (05:37→23:30)
[2019-09-28] MEDS: LABETALOL HCL 200 MG TABLET (FP) PO SCH ×4 (05:49→23:41)
[2019-09-28] MEDS: INSULIN SLIDING SCALE (NOVOLOG) 1 VIAL SQ SCH (05:59)
[2019-09-28] MEDS: LEVOTHYROXINE NA 125 MCG TABLET (FP) PO SCH (06:00)
--- NOTE | 2019-09-28 08:21 | PN ---
Progress Note, Physician Chief Complaint: Patient seen and examined at the bedside. Still awaiting acceptance for HD placement. Search for center widened. History of Present Illness: Patient is a 54 year old female with a significant past medical history of hypertension, hyperlipidemia, diabetes, COPD, anemia, thyroid cancer 6 years ago. Patient brought into the ED 08/25/19 for altered mental status, acute shortness of breath, metabolic acidosis. Hospital course was complicated by myxedema coma, LUCY reuring dialysis She is pending outpatient dialysis center acceptance as she is hep b+ and will need isolation - Current Medication List Current Medications: Active Medications Acetaminophen (Tylenol -) 650 mg PO Q6H PRN PRN Reason: Fever Or Pain Last Admin: 09/17/19 22:26 Dose: 650 mg Amlodipine Besylate (Norvasc -) 10 mg PO DAILY [facility] Last Admin: 09/27/19 09:56 Dose: 10 mg Atorvastatin Calcium (Lipitor -) 40 mg PO HS [facility] Last Admin: 09/27/19 22:18 Dose: 40 mg Famotidine (Pepcid -) 20 mg PO Q2D [facility] Last Admin: 09/26/19 09:50 Dose: 20 mg Insulin Aspart (Novolog Vial Sliding Scale -) 1 vial SQ DAILY@0700 [facility]; Protocol Last Admin: 09/28/19 05:59 Dose: Not Given Labetalol HCl (Normodyne -) 200 mg PO TID [facility] Last Admin: 09/28/19 05:49 Dose: 200 mg Levothyroxine Sodium (Synthroid -) 250 mcg PO DAILY@0700 [facility] Last Admin: 09/28/19 06:00 Dose: 250 mcg Multivitamins/Minerals/Vitamin C (Tab-A-Vit -) 1 tab PO DAILY [facility] Last Admin: 09/27/19 09:56 Dose: 1 tab Paroxetine HCl (Paxil -) 40 mg PO DAILY [facility] Last Admin: 09/27/19 09:56 Dose: 40 mg - Objective Vital Signs: Vital Signs Temperature 97.9 F 09/28/19 05:42 Pulse Rate 72 09/28/19 05:42 Respiratory Rate 18 09/28/19 05:42 Blood Pressure 145/74 09/28/19 05:42 O2 Sat by Pulse Oximetry (%) 96 09/27/19 21:00 Additional Findings/Remarks: GENERAL: The patient is awake, alert and in no acute distress. HEAD: Normal with no signs of trauma. EYES: PERRL, extraocular movements intact, sclera anicteric, conjunctiva clear. No ptosis. ENT: Ears normal, nares patent, oropharynx clear without exudates, moist mucous membranes. NECK: Trachea midline, full range of motion, supple. LUNGS: clear to auscultation bilaterally, stable oxygen saturations on room air HEART: Regular rate and rhythm ABDOMEN: Soft, nontender, nondistended, normoactive bowel sounds, no guarding EXTREMITIES: no edema. AV fistula with +Bruit +thrill NEUROLOGICAL: awake, alert, cooperative, anxious at times. PSYCH: Normal mood, normal affect. SKIN: Warm, dry, normal turgor, no rashes or lesions noted Labs: CBC, BMP 09/27/19 07:07 09/27/19 07:07 INR, PTT INR 0.99 (0.83-1.09) 09/05/19 13:45 Problem List - Problems (1) HTN (hypertension) Assessment/Plan: c/w norvasc 10mg & labetolol 200mg tid Code(s): I10 - ESSENTIAL (PRIMARY) HYPERTENSION (2) HLD (hyperlipidemia) Assessment/Plan: c/w atorvastatin Code(s): E78.5 - HYPERLIPIDEMIA, UNSPECIFIED (3) COPD (chronic obstructive pulmonary disease) Assessment/Plan: duo nebs q4h completed course of antibiotics off O2 Code(s): J44.9 - CHRONIC OBSTRUCTIVE PULMONARY DISEASE, UNSPECIFIED (4) Anemia Assessment/Plan: chronic anemia Hgb 8.3 continue to monitor Code(s): D64.9 - ANEMIA, UNSPECIFIED Qualifiers: Other causes of anemia: chronic disease, other (5) Thyroid cancer Code(s): C73 - MALIGNANT NEOPLASM OF THYROID GLAND (6) Acute respiratory failure Assessment/Plan: resolved tolerating RA Code(s): J96.00 - ACUTE RESPIRATORY FAILURE, UNSP W HYPOXIA OR HYPERCAPNIA (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 MDMA screen + in urine on 09/13, metabolite negative possible false positive r/t to labetolol Code(s): F16.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 ABUSE, UNCOMPLICATED (8) LUCY (acute kidney injury) Assessment/Plan: HD as per renal avoid nephrotoxic agents Code(s): N17.9 - ACUTE KIDNEY FAILURE, UNSPECIFIED (9) Acute metabolic encephalopathy Assessment/Plan: resolved avoid any sedating agents Code(s): G93.41 - METABOLIC ENCEPHALOPATHY (10) Morbid obesity Assessment/Plan: counseled on weight loss Code(s): E66.01 - MORBID (SEVERE) OBESITY DUE TO EXCESS CALORIES (11) Prophylactic measure Assessment/Plan: FEN no additional IVF renal diet monitor electrolytes DVT SCDs Dispo maintain as inpatient full code discharge planning-pending dialysis center acceptance Code(s): Z29.9 - ENCOUNTER FOR PROPHYLACTIC MEASURES, UNSPECIFIED (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 Assessment/Plan: mental status improved Novolog SS coverage being followed by real estate utilization officer off steroids on discharge as per endodrine- Pt go go home on LT4 225 and Prednisone if necessary BGM QACHS Code(s): E03.5 - MYXEDEMA COMA (13) Hepatitis B Assessment/Plan: Chronic hepatitis B recommended to have outpatient evaluation for HBV DNA level, alpha-fetoprotein. Code(s): B19.10 - UNSPECIFIED VIRAL HEPATITIS B WITHOUT HEPATIC COMA Qualifiers: Viral hepatitis chronicity: chronic Visit type - Emergency Visit Emergency Visit: Yes ED Registration Date: 08/25/19 Care time: The patient presented to the Emergency Department on the above date and was hospitalized for further evaluation of their emergent condition. - New Patient This patient is new to me today: No - Critical Care Critical Care patient: No - Discharge Referral Referred to [facility] Med P.C.: No
[2019-09-28] MEDS: MULTIVITAMINS (DAILY MVI) TABLET (FP) PO SCH (09:47)
[2019-09-28] MEDS: PARoxetine HCL 20 MG TABLET PO SCH (09:47)
[2019-09-28] MEDS: FAMOTIDINE 20 MG TABLET PO SCH (09:47)
[2019-09-28] MEDS: amLODIPine BESYLATE 10 MG TABLET (FP) PO SCH (09:47)
[2019-09-28 09:52] LABS: BASO % 0.4 % (0-2.0); HEMOGLOBIN 8.3 GM/dL (10.7-15.3); LYMPH % 44.6 % (8-40); MCH 30.4 pg (25.7-33.7); MCHC 34.6 g/dl (32.0-36.0); MEAN CELL VOLUME 87.8 fl (80-96); MEAN PLT VOLUME 7.9 fl (7.5-11.1); MONO % 5.6 % (3.8-10.2); NEUT % 49.4 % (42.8-82.8); PLATELET COUNT 278 K/MM3 (134-434); RBC 2.73 M/mm3 (3.60-5.2); RDW 15.6 % (11.6-15.6); WHITE BLOOD COUNT 6.5 K/mm3 (4.0-10.0)
[2019-09-28 10:00] LABS: ALBUMIN 2.8 g/dl (3.4-5.0); BILIRUBIN,TOTAL 0.4 mg/dL (0.2-1); BLOOD UREA NITROGEN 16.6 mg/dL (7-18); CREATININE 4.8 mg/dL (0.55-1.3); MAGNESIUM 1.6 mg/dL (1.8-2.4); PHOSPHOROUS 1.8 mg/dL (2.5-4.9); TOT PROT 6.7 g/dl (6.4-8.2)
--- NOTE | 2019-09-28 12:59 | PN ---
Progress Note (short form) - Note Progress Note: PULMONARY Denies shortness of breath, cough or wheezing. Awaiting placement. Vital Signs Period Temp Pulse Resp BP Sys/Amos Pulse Ox Last 24 Hr 97.9 F-98.4 F 66-73 16-19 132-145/63-76 96-99 Gen: NAD at rest Heart: RRR Lung: decreased breath sounds at the bases Abd: soft, nontender Ext: no edema CBC, BMP 09/28/19 07:53 09/28/19 07:53 Active Medications Acetaminophen (Tylenol -) 650 mg PO Q6H PRN PRN Reason: Fever Or Pain Last Admin: 09/17/19 22:26 Dose: 650 mg Amlodipine Besylate (Norvasc -) 10 mg PO DAILY [facility] Last Admin: 09/28/19 09:47 Dose: 10 mg Atorvastatin Calcium (Lipitor -) 40 mg PO HS [facility] Last Admin: 09/27/19 22:18 Dose: 40 mg Epoetin Jamal (Epogen -) 4,000 unit IVPUSH ONCE ONE Stop: 09/28/19 12:48 Famotidine (Pepcid -) 20 mg PO Q2D [facility] Last Admin: 09/28/19 09:47 Dose: 20 mg Sodium Chloride (Normal Saline -) 250 mls @ 3,000 mls/hr IV PRN PRN PRN Reason: Hypotension during Dialysis Stop: 09/29/19 12:47 Insulin Aspart (Novolog Vial Sliding Scale -) 1 vial SQ DAILY@0700 [facility]; Protocol Last Admin: 09/28/19 05:59 Dose: Not Given Labetalol HCl (Normodyne -) 200 mg PO TID [facility] Last Admin: 09/28/19 05:49 Dose: 200 mg Levothyroxine Sodium (Synthroid -) 250 mcg PO DAILY@0700 [facility] Last Admin: 09/28/19 06:00 Dose: 250 mcg Multivitamins/Minerals/Vitamin C (Tab-A-Vit -) 1 tab PO DAILY [facility] Last Admin: 09/28/19 09:47 Dose: 1 tab Paroxetine HCl (Paxil -) 40 mg PO DAILY [facility] Last Admin: 09/28/19 09:47 Dose: 40 mg A/P Acute Hypercapneic Respiratory Failure improving Myxedema Coma resolved UTI treated Acute Kidney Injury requiring HD Volume Overload improving Pleural Effusions improved COPD DM Anemia - HD per renal - monitor urine output, creatinine - completed antibiotics - synthroid - inhaled bronchodilators - O2 to keep SpO2 >90% - PO as tolerated - DVT prophylaxis - d/c planning in progress
--- NOTE | 2019-09-28 14:23 | PN ---
Progress Note, Physician History of Present Illness: No new events. Pt without new complaints. - Current Medication List Current Medications: Active Medications Acetaminophen (Tylenol -) 650 mg PO Q6H PRN PRN Reason: Fever Or Pain Last Admin: 09/17/19 22:26 Dose: 650 mg Amlodipine Besylate (Norvasc -) 10 mg PO DAILY [facility] Last Admin: 09/28/19 09:47 Dose: 10 mg Atorvastatin Calcium (Lipitor -) 40 mg PO HS [facility] Last Admin: 09/27/19 22:18 Dose: 40 mg Epoetin Jamal (Epogen -) 4,000 unit IVPUSH ONCE ONE Stop: 09/28/19 12:48 Famotidine (Pepcid -) 20 mg PO Q2D [facility] Last Admin: 09/28/19 09:47 Dose: 20 mg Sodium Chloride (Normal Saline -) 250 mls @ 3,000 mls/hr IV PRN PRN PRN Reason: Hypotension during Dialysis Stop: 09/29/19 12:47 Insulin Aspart (Novolog Vial Sliding Scale -) 1 vial SQ DAILY@0700 [facility]; Protocol Last Admin: 09/28/19 05:59 Dose: Not Given Labetalol HCl (Normodyne -) 200 mg PO TID [facility] Last Admin: 09/28/19 05:49 Dose: 200 mg Levothyroxine Sodium (Synthroid -) 250 mcg PO DAILY@0700 [facility] Last Admin: 09/28/19 06:00 Dose: 250 mcg Multivitamins/Minerals/Vitamin C (Tab-A-Vit -) 1 tab PO DAILY [facility] Last Admin: 09/28/19 09:47 Dose: 1 tab Paroxetine HCl (Paxil -) 40 mg PO DAILY [facility] Last Admin: 09/28/19 09:47 Dose: 40 mg - Objective Vital Signs: Vital Signs Temperature 98.2 F 09/28/19 09:40 Pulse Rate 73 09/28/19 09:40 Respiratory Rate 16 09/28/19 09:40 Blood Pressure 132/69 09/28/19 09:40 O2 Sat by Pulse Oximetry (%) 99 09/28/19 09:00 Constitutional: Yes: No Distress, Calm Cardiovascular: Yes: Regular Rate and Rhythm Respiratory: Yes: Regular Gastrointestinal: Yes: Normal Bowel Sounds, Soft Genitourinary: Yes: WNL Extremities: Yes: WNL Integumentary: Yes: WNL Neurological: Yes: Alert Labs: CBC, BMP 09/28/19 07:53 09/28/19 07:53 INR, PTT INR 0.99 (0.83-1.09) 09/05/19 13:45 Microbiology 09/17/19 12:30 Blood - Peripheral Venous Blood Culture - Final NO GROWTH AFTER 5 DAYS INCUBATION 09/17/19 11:28 Blood - Peripheral Venous Blood Culture - Final NO GROWTH AFTER 5 DAYS INCUBATION 09/01/19 16:36 Blood - Peripheral Venous Blood Culture - Final NO GROWTH AFTER 5 DAYS INCUBATION 09/01/19 16:40 Blood - Peripheral Venous Blood Culture - Final NO GROWTH AFTER 5 DAYS INCUBATION 09/01/19 16:50 Sputum - Endotrachea Suction/Ventilator Gram Stain - Final 09/01/19 16:50 Sputum - Endotrachea Suction/Ventilator Sputum Culture - Final Serratia Marcescens Yeast Like Organism 09/02/19 13:15 Urine - Urine Mahoney Urine Culture - Final Yeast Like Organism 08/31/19 14:30 Sputum - Endotrachea Suction/Ventilator Gram Stain - Final 08/31/19 14:30 Sputum - Endotrachea Suction/Ventilator Sputum Culture - Final Serratia Marcescens Yeast Like Organism 08/28/19 19:20 Sputum - Endotrachea Suction/Ventilator Gram Stain - Final 08/28/19 19:20 Sputum - Endotrachea Suction/Ventilator Sputum Culture - Final Serratia Marcescens Yeast Like Organism 08/25/19 12:33 Blood - Peripheral Venous Blood Culture - Final NO GROWTH AFTER 5 DAYS INCUBATION 08/25/19 12:33 Blood - Peripheral Venous Blood Culture - Final NO GROWTH AFTER 5 DAYS INCUBATION 08/25/19 12:40 Urine - Urine Mahoney Urine Culture - Final Staphylococcus Epidermidis Problem List - Problems (1) LUCY (acute kidney injury) Code(s): N17.9 - ACUTE KIDNEY FAILURE, UNSPECIFIED (2) AMS (altered mental status) Code(s): R41.82 - ALTERED MENTAL STATUS, UNSPECIFIED (3) Acute metabolic encephalopathy Code(s): G93.41 - METABOLIC ENCEPHALOPATHY (4) Acute respiratory failure Code(s): J96.00 - ACUTE RESPIRATORY FAILURE, UNSP W HYPOXIA OR HYPERCAPNIA (5) Anemia Code(s): D64.9 - ANEMIA, UNSPECIFIED Qualifiers: Other causes of anemia: chronic disease, other (6) COPD (chronic obstructive pulmonary disease) Code(s): J44.9 - CHRONIC OBSTRUCTIVE PULMONARY DISEASE, UNSPECIFIED (7) Diabetes Code(s): E11.9 - TYPE 2 DIABETES MELLITUS WITHOUT COMPLICATIONS (8) HTN (hypertension) Code(s): I10 - ESSENTIAL (PRIMARY) HYPERTENSION (9) Hypercapnic respiratory failure Code(s): J96.92 - RESPIRATORY FAILURE, UNSPECIFIED WITH HYPERCAPNIA (10) Hypothermia Code(s): T68.XXXA - HYPOTHERMIA, INITIAL ENCOUNTER (11) Morbid obesity Code(s): E66.01 - MORBID (SEVERE) OBESITY DUE TO EXCESS CALORIES (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 - MYXEDEMA COMA (13) Thyroid cancer Code(s): C73 - MALIGNANT NEOPLASM OF THYROID GLAND Assessment/Plan Acute respiratory failure - s/p extubation Acute metabolic encephalopathy AMS -improved Myxedema coma - resolved DM LUCY on CKD - on HD Obesity Hx of thyroid CA s/p thyroidectomy HTN HLD COPD Anemia Hepatitis B -- Pt stable off of antibiotics, continue monitor -- discharge planning
--- NOTE | 2019-09-28 14:44 | PN ---
Progress Note (short form) - Note Progress Note: for hemodialysis today 1. LUCY 2. fluid overload 3. acute respiratory failure 4. hypothyroidism with tsh of 100 5. 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 urine tox pos for mdma 7. mild rhabdo 8. hx of hepatitis, family does not know if b or c, hep b is positive here Current Medications Acetaminophen (Tylenol -) 650 mg PO Q6H PRN PRN Reason: Fever Or Pain Last Admin: 09/17/19 22:26 Dose: 650 mg Amlodipine Besylate (Norvasc -) 10 mg PO DAILY [facility] Last Admin: 09/28/19 09:47 Dose: 10 mg Atorvastatin Calcium (Lipitor -) 40 mg PO HS [facility] Last Admin: 09/27/19 22:18 Dose: 40 mg Epoetin Jamal (Epogen -) 4,000 unit IVPUSH ONCE ONE Stop: 09/28/19 12:48 Famotidine (Pepcid -) 20 mg PO Q2D [facility] Last Admin: 09/28/19 09:47 Dose: 20 mg Sodium Chloride (Normal Saline -) 250 mls @ 3,000 mls/hr IV PRN PRN PRN Reason: Hypotension during Dialysis Stop: 09/29/19 12:47 Insulin Aspart (Novolog Vial Sliding Scale -) 1 vial SQ DAILY@0700 [facility]; Protocol Last Admin: 09/28/19 05:59 Dose: Not Given Labetalol HCl (Normodyne -) 200 mg PO TID [facility] Last Admin: 09/28/19 05:49 Dose: 200 mg Levothyroxine Sodium (Synthroid -) 250 mcg PO DAILY@0700 [facility] Last Admin: 09/28/19 06:00 Dose: 250 mcg Multivitamins/Minerals/Vitamin C (Tab-A-Vit -) 1 tab PO DAILY [facility] Last Admin: 09/28/19 09:47 Dose: 1 tab Paroxetine HCl (Paxil -) 40 mg PO DAILY [facility] Last Admin: 09/28/19 09:47 Dose: 40 mg Last Vital Signs Temp Pulse Resp BP Pulse Ox 98.2 F 73 16 132/69 99 09/28/19 09:40 09/28/19 09:40 09/28/19 09:40 09/28/19 09:40 09/28/19 09:00 CBC, BMP 09/28/19 07:53 09/28/19 07:53
[2019-09-28] MEDS ORDERED: SODIUM CHLORIDE 250 ML IV PRN (20:24)
[2019-09-28] MEDS ORDERED: EPOETIN ALFA 2,000 UNIT/1 ML VIAL IVPUSH ONE (20:30)
[2019-09-28] MEDS: ATORVASTATIN CA 40 MG TABLET (FP) PO SCH ×2 (21:58→23:42)
[2019-09-29] MEDS ORDERED: LABETALOL HCL 100 MG TABLET (FP) ONE ×2 (05:48→13:36)
[2019-09-29] MEDS: LEVOTHYROXINE NA 125 MCG TABLET (FP) PO SCH (06:04)
[2019-09-29] MEDS: LABETALOL HCL 200 MG TABLET (FP) PO SCH ×3 (06:04→21:38)
[2019-09-29] MEDS: INSULIN SLIDING SCALE (NOVOLOG) 1 VIAL SQ SCH (06:04)
--- NOTE | 2019-09-29 07:48 | PN ---
Progress Note, Physician Chief Complaint: Patient seen and examined at the bedside. Still awaiting acceptance for HD placement. No complaints offered History of Present Illness: Patient is a 54 year old female with a significant past medical history of hypertension, hyperlipidemia, diabetes, COPD, anemia, thyroid cancer 6 years ago. Patient brought into the ED 08/25/19 for altered mental status, acute shortness of breath, metabolic acidosis. Hospital course was complicated by myxedema coma, LUCY reuring dialysis She is pending outpatient dialysis center acceptance as she is hep b+ and will need isolation - Current Medication List Current Medications: Active Medications Acetaminophen (Tylenol -) 650 mg PO Q6H PRN PRN Reason: Fever Or Pain Last Admin: 09/17/19 22:26 Dose: 650 mg Amlodipine Besylate (Norvasc -) 10 mg PO DAILY [facility] Last Admin: 09/28/19 09:47 Dose: 10 mg Atorvastatin Calcium (Lipitor -) 40 mg PO HS [facility] Last Admin: 09/28/19 23:42 Dose: 40 mg Famotidine (Pepcid -) 20 mg PO Q2D [facility] Last Admin: 09/28/19 09:47 Dose: 20 mg Sodium Chloride (Normal Saline -) 250 mls @ 3,000 mls/hr IV PRN PRN PRN Reason: Hypotension during Dialysis Stop: 09/29/19 20:23 Insulin Aspart (Novolog Vial Sliding Scale -) 1 vial SQ DAILY@0700 [facility]; Protocol Last Admin: 09/29/19 06:04 Dose: Not Given Labetalol HCl (Normodyne -) 200 mg PO TID [facility] Last Admin: 09/29/19 06:04 Dose: 200 mg Levothyroxine Sodium (Synthroid -) 250 mcg PO DAILY@0700 [facility] Last Admin: 09/29/19 06:04 Dose: 250 mcg Multivitamins/Minerals/Vitamin C (Tab-A-Vit -) 1 tab PO DAILY [facility] Last Admin: 09/28/19 09:47 Dose: 1 tab Paroxetine HCl (Paxil -) 40 mg PO DAILY [facility] Last Admin: 09/28/19 09:47 Dose: 40 mg - Objective Vital Signs: Vital Signs Temperature 98.2 F 09/29/19 07:00 Pulse Rate 76 09/29/19 07:00 Respiratory Rate 20 09/29/19 07:00 Blood Pressure 140/72 09/29/19 07:00 O2 Sat by Pulse Oximetry (%) 98 09/28/19 21:00 Additional Findings/Remarks: GENERAL: The patient is awake, alert and in no acute distress. HEAD: Normal with no signs of trauma. EYES: PERRL, extraocular movements intact, sclera anicteric, conjunctiva clear. No ptosis. ENT: Ears normal, nares patent, oropharynx clear without exudates, moist mucous membranes. NECK: Trachea midline, full range of motion, supple. LUNGS: clear to auscultation bilaterally, stable oxygen saturations on room air HEART: Regular rate and rhythm ABDOMEN: Soft, nontender, nondistended, normoactive bowel sounds, no guarding EXTREMITIES: no edema. AV fistula with +Bruit +thrill NEUROLOGICAL: awake, alert, cooperative, anxious at times. PSYCH: Normal mood, normal affect. SKIN: Warm, dry, normal turgor, no rashes or lesions noted Labs: CBC, BMP 09/28/19 07:53 09/28/19 07:53 INR, PTT INR 0.99 (0.83-1.09) 09/05/19 13:45 Problem List - Problems (1) HTN (hypertension) Assessment/Plan: c/w norvasc 10mg & labetolol 200mg tid Code(s): I10 - ESSENTIAL (PRIMARY) HYPERTENSION (2) HLD (hyperlipidemia) Assessment/Plan: c/w atorvastatin Code(s): E78.5 - HYPERLIPIDEMIA, UNSPECIFIED (3) COPD (chronic obstructive pulmonary disease) Assessment/Plan: duo nebs q4h completed course of antibiotics off O2 Code(s): J44.9 - CHRONIC OBSTRUCTIVE PULMONARY DISEASE, UNSPECIFIED (4) Anemia Assessment/Plan: chronic anemia Hgb 7.7 continue to monitor Code(s): D64.9 - ANEMIA, UNSPECIFIED Qualifiers: Other causes of anemia: chronic disease, other (5) Thyroid cancer Code(s): C73 - MALIGNANT NEOPLASM OF THYROID GLAND (6) Acute respiratory failure Assessment/Plan: resolved tolerating RA Code(s): J96.00 - ACUTE RESPIRATORY FAILURE, UNSP W HYPOXIA OR HYPERCAPNIA (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 MDMA screen + in urine on 09/13, metabolite negative possible false positive r/t to labetolol Code(s): F16.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 ABUSE, UNCOMPLICATED (8) LUCY (acute kidney injury) Assessment/Plan: HD as per renal avoid nephrotoxic agents Code(s): N17.9 - ACUTE KIDNEY FAILURE, UNSPECIFIED (9) Acute metabolic encephalopathy Assessment/Plan: resolved avoid any sedating agents Code(s): G93.41 - METABOLIC ENCEPHALOPATHY (10) Morbid obesity Assessment/Plan: counseled on weight loss Code(s): E66.01 - MORBID (SEVERE) OBESITY DUE TO EXCESS CALORIES (11) Prophylactic measure Assessment/Plan: FEN no additional IVF renal diet monitor electrolytes DVT SCDs Dispo maintain as inpatient full code discharge planning-pending dialysis center acceptance Code(s): Z29.9 - ENCOUNTER FOR PROPHYLACTIC MEASURES, UNSPECIFIED (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 Assessment/Plan: mental status improved Novolog SS coverage being followed by heel padder off steroids on discharge as per endodrine- Pt go go home on LT4 225 and Prednisone if necessary BGM QACHS Code(s): E03.5 - MYXEDEMA COMA (13) Hepatitis B Assessment/Plan: Chronic hepatitis B recommended to have outpatient evaluation for HBV DNA level, alpha-fetoprotein. Code(s): B19.10 - UNSPECIFIED VIRAL HEPATITIS B WITHOUT HEPATIC COMA Qualifiers: Viral hepatitis chronicity: chronic Visit type - Emergency Visit Emergency Visit: Yes ED Registration Date: 08/25/19 Care time: The patient presented to the Emergency Department on the above date and was hospitalized for further evaluation of their emergent condition. - New Patient This patient is new to me today: No - Critical Care Critical Care patient: No - Discharge Referral Referred to [facility] Med P.C.: No
[2019-09-29] MEDS: amLODIPine BESYLATE 10 MG TABLET (FP) PO SCH (09:27)
[2019-09-29] MEDS: MULTIVITAMINS (DAILY MVI) TABLET (FP) PO SCH (09:27)
[2019-09-29] MEDS: PARoxetine HCL 20 MG TABLET PO SCH (09:27)
[2019-09-29 09:41] LABS: BASO % 0.6 % (0-2.0); HEMATOCRIT 22.2 % (32.4-45.2); HEMOGLOBIN 7.7 GM/dL (10.7-15.3); LYMPH % 41.9 % (8-40); MCH 30.5 pg (25.7-33.7); MCHC 34.8 g/dl (32.0-36.0); MEAN CELL VOLUME 87.7 fl (80-96); MEAN PLT VOLUME 7.6 fl (7.5-11.1); MONO % 6.8 % (3.8-10.2); NEUT % 50.7 % (42.8-82.8); PLATELET COUNT 282 K/MM3 (134-434); RBC 2.53 M/mm3 (3.60-5.2); RDW 15.6 % (11.6-15.6); WHITE BLOOD COUNT 6.3 K/mm3 (4.0-10.0)
[2019-09-29 10:15] LABS: ALBUMIN 2.6 g/dl (3.4-5.0); BILIRUBIN,TOTAL 0.3 mg/dL (0.2-1); BLOOD UREA NITROGEN 9.9 mg/dL (7-18); CREATININE 3.4 mg/dL (0.55-1.3); MAGNESIUM 1.4 mg/dL (1.8-2.4); PHOSPHOROUS 1.9 mg/dL (2.5-4.9); POTASSIUM 3.9 mmol/L (3.5-5.1); TOT PROT 6.1 g/dl (6.4-8.2)
--- NOTE | 2019-09-29 13:22 | PN ---
Progress Note (short form) - Note Progress Note: PULMONARY Denies shortness of breath, cough or wheezing. Awaiting placement. Vital Signs Period Temp Pulse Resp BP Sys/Amos Pulse Ox Last 24 Hr 97.9 F-98.4 F 72-82 18-20 127-172/68-92 95-98 Gen: NAD at rest Heart: RRR Lung: decreased breath sounds at the bases Abd: soft, nontender Ext: no edema CBC, BMP 09/29/19 07:56 09/29/19 07:56 Active Medications Acetaminophen (Tylenol -) 650 mg PO Q6H PRN PRN Reason: Fever Or Pain Last Admin: 09/17/19 22:26 Dose: 650 mg Amlodipine Besylate (Norvasc -) 10 mg PO DAILY [facility] Last Admin: 09/29/19 09:27 Dose: 10 mg Atorvastatin Calcium (Lipitor -) 40 mg PO HS [facility] Last Admin: 09/28/19 23:42 Dose: 40 mg Famotidine (Pepcid -) 20 mg PO Q2D [facility] Last Admin: 09/28/19 09:47 Dose: 20 mg Sodium Chloride (Normal Saline -) 250 mls @ 3,000 mls/hr IV PRN PRN PRN Reason: Hypotension during Dialysis Stop: 09/29/19 20:23 Insulin Aspart (Novolog Vial Sliding Scale -) 1 vial SQ DAILY@0700 [facility]; Protocol Last Admin: 09/29/19 06:04 Dose: Not Given Labetalol HCl (Normodyne -) 200 mg PO TID [facility] Last Admin: 09/29/19 06:04 Dose: 200 mg Levothyroxine Sodium (Synthroid -) 250 mcg PO DAILY@0700 [facility] Last Admin: 09/29/19 06:04 Dose: 250 mcg Multivitamins/Minerals/Vitamin C (Tab-A-Vit -) 1 tab PO DAILY [facility] Last Admin: 09/29/19 09:27 Dose: 1 tab Paroxetine HCl (Paxil -) 40 mg PO DAILY [facility] Last Admin: 09/29/19 09:27 Dose: 40 mg A/P Acute Hypercapneic Respiratory Failure improving Myxedema Coma resolved UTI treated Acute Kidney Injury requiring HD Volume Overload improving Pleural Effusions improved COPD DM Anemia - HD per renal - monitor urine output, creatinine - completed antibiotics - synthroid - inhaled bronchodilators - O2 to keep SpO2 >90% - PO as tolerated - DVT prophylaxis - d/c planning in progress
--- NOTE | 2019-09-29 21:17 | PN ---
Progress Note (short form) - Note Progress Note: for hemodialysis today 1. LUCY 2. fluid overload 3. acute respiratory failure 4. hypothyroidism with tsh of 100 5. 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 urine tox pos for mdma 7. mild rhabdo 8. hx of hepatitis, family does not know if b or c, hep b is positive here Current Medications Acetaminophen (Tylenol -) 650 mg PO Q6H PRN PRN Reason: Fever Or Pain Last Admin: 09/17/19 22:26 Dose: 650 mg Amlodipine Besylate (Norvasc -) 10 mg PO DAILY [facility] Last Admin: 09/29/19 09:27 Dose: 10 mg Atorvastatin Calcium (Lipitor -) 40 mg PO HS [facility] Last Admin: 09/28/19 23:42 Dose: 40 mg Famotidine (Pepcid -) 20 mg PO Q2D [facility] Last Admin: 09/28/19 09:47 Dose: 20 mg Insulin Aspart (Novolog Vial Sliding Scale -) 1 vial SQ DAILY@0700 [facility]; Protocol Last Admin: 09/29/19 06:04 Dose: Not Given Labetalol HCl (Normodyne -) 200 mg PO TID [facility] Last Admin: 09/29/19 13:38 Dose: 200 mg Levothyroxine Sodium (Synthroid -) 250 mcg PO DAILY@0700 [facility] Last Admin: 09/29/19 06:04 Dose: 250 mcg Multivitamins/Minerals/Vitamin C (Tab-A-Vit -) 1 tab PO DAILY [facility] Last Admin: 09/29/19 09:27 Dose: 1 tab Paroxetine HCl (Paxil -) 40 mg PO DAILY [facility] Last Admin: 09/29/19 09:27 Dose: 40 mg Last Vital Signs Temp Pulse Resp BP Pulse Ox 97.9 F 73 20 146/63 95 09/29/19 14:33 09/29/19 14:33 09/29/19 14:33 09/29/19 14:33 09/29/19 09:00 Lungs clear Heart reg Abd soft nontender Ext no edema CBC, BMP 09/29/19 07:56 09/29/19 07:56 CBC, BMP 09/28/19 07:53 09/28/19 07:53 IMP ESRD started on HD Hep B positive Anemia Plan- waiting for outpatient placement
[2019-09-29] MEDS: ATORVASTATIN CA 40 MG TABLET (FP) PO SCH (21:38)
[2019-09-30] MEDS ORDERED: PT OWN MED DRAWER 7, Y5N ONE (05:15)
[2019-09-30] MEDS: LABETALOL HCL 200 MG TABLET (FP) PO SCH ×3 (05:18→21:43)
[2019-09-30] MEDS ORDERED: diphenhydrAMINE HCL 25 MG CAPSULE (FP) PO ONE (05:25)
[2019-09-30] MEDS: INSULIN SLIDING SCALE (NOVOLOG) 1 VIAL SQ SCH (06:00)
[2019-09-30] MEDS: LEVOTHYROXINE NA 125 MCG TABLET (FP) PO SCH (06:40)
[2019-09-30 08:28] LABS: BASO % 0.6 % (0-2.0); HEMATOCRIT 23.3 % (32.4-45.2); LYMPH % 45.4 % (8-40); MCH 30.1 pg (25.7-33.7); MCHC 34.4 g/dl (32.0-36.0); MEAN CELL VOLUME 87.5 fl (80-96); MEAN PLT VOLUME 7.7 fl (7.5-11.1); MONO % 7.3 % (3.8-10.2); NEUT % 46.7 % (42.8-82.8); PLATELET COUNT 290 K/MM3 (134-434); RBC 2.67 M/mm3 (3.60-5.2); RDW 15.6 % (11.6-15.6); WHITE BLOOD COUNT 5.9 K/mm3 (4.0-10.0)
[2019-09-30 09:01] LABS: ALBUMIN 2.6 g/dl (3.4-5.0); BILIRUBIN,TOTAL 0.4 mg/dL (0.2-1); BLOOD UREA NITROGEN 17.1 mg/dL (7-18); CALCIUM 8.2 mg/dL (8.5-10.1); CREATININE 4.4 mg/dL (0.55-1.3); MAGNESIUM 1.3 mg/dL (1.8-2.4); POTASSIUM 3.7 mmol/L (3.5-5.1); TOT PROT 6.3 g/dl (6.4-8.2)
[2019-09-30] MEDS ORDERED: MAGNESIUM OXIDE 400 MG TABLET (FP) PO ONE (09:11)
[2019-09-30] MEDS: PARoxetine HCL 20 MG TABLET PO SCH (09:37)
[2019-09-30] MEDS: amLODIPine BESYLATE 10 MG TABLET (FP) PO SCH (09:38)
[2019-09-30] MEDS: MULTIVITAMINS (DAILY MVI) TABLET (FP) PO SCH (09:38)
[2019-09-30] MEDS: FAMOTIDINE 20 MG TABLET PO SCH (09:38)
--- NOTE | 2019-09-30 10:58 | PN ---
Physical Exam: SUBJECTIVE: Patient seen and examined at the bedside. in bed, in no acute distress. awaiting placement. OBJECTIVE: Patient is a 54 year old female with a significant past medical history of hypertension, hyperlipidemia, diabetes, COPD, anemia, thyroid cancer 6 years ago (no prior admission to [facility]). Patient brought into the ED for altered mental status, acute shortness of breath, metabolic acidosis. She was found to have an elevated TSH, low t4 and hypothermic ([id number]-on mariana hugger). on admission had renal failure with a creat of 7.7, bun of 65, mag 1.6, elevated ast/alt and now on dialysis. She is pending outpatient dialysis center acceptance as she is hep b+ and will need isolation. Vital Signs Period Temp Pulse Resp BP Sys/Amos Pulse Ox Last 24 Hr 97.7 F-97.9 F 72-79 18-20 146-150/63-87 96-96 GENERAL: The patient is awake, alert and in no acute distress. HEAD: Normal with no signs of trauma. EYES: PERRL, extraocular movements intact, sclera anicteric, conjunctiva clear. No ptosis. ENT: Ears normal, nares patent, oropharynx clear without exudates, moist mucous membranes. NECK: Trachea midline, full range of motion, supple. LUNGS: clear to auscultation bilaterally, stable oxygen saturations on room air HEART: Regular rate and rhythm ABDOMEN: Soft, nontender, nondistended, normoactive bowel sounds, no guarding EXTREMITIES: no edema NEUROLOGICAL: awake, alert PSYCH: Normal mood, normal affect. SKIN: Warm, dry, normal turgor, no rashes or lesions noted Laboratory Results - last 24 hr 09/30/19 09/30/19 09/30/19 05:50 07:15 07:15 WBC 5.9 RBC 2.67 L Hgb 8.0 L Hct 23.3 L MCV 87.5 MCH 30.1 MCHC 34.4 RDW 15.6 Plt Count 290 MPV 7.7 Absolute Neuts (auto) 2.8 Neutrophils % 46.7 Lymphocytes % 45.4 H Monocytes % 7.3 Eosinophils % 0.0 Basophils % 0.6 Nucleated RBC % 0 Sodium 134 L Potassium 3.7 Chloride 98 Carbon Dioxide 32 Anion Gap 4 L BUN 17.1 Creatinine 4.4 H Est GFR (CKD-EPI)AfAm 12.51 Est GFR (CKD-EPI)NonAf 10.79 POC Glucometer 133 Random Glucose 131 H Calcium 8.2 L Magnesium 1.3 L Total Bilirubin 0.4 AST 23 ALT 23 Alkaline Phosphatase 241 H Total Protein 6.3 L Albumin 2.6 L Active Medications Generic Name Dose Route Start Last Admin Trade Name Freq PRN Reason Stop Dose Admin Acetaminophen 650 mg 09/16/19 15:24 09/17/19 22:26 Tylenol - PO 650 mg Q6H PRN Administration Fever Or Pain Amlodipine Besylate 10 mg 09/17/19 10:00 09/30/19 09:38 Norvasc - PO 10 mg DAILY [facility] Administration Atorvastatin Calcium 40 mg 09/16/19 22:00 09/29/19 21:38 Lipitor - PO 40 mg HS [facility] Administration Famotidine 20 mg 09/18/19 10:00 09/30/19 09:38 Pepcid - PO 20 mg Q2D [facility] Administration Insulin Aspart 1 vial 09/20/19 11:06 09/30/19 06:00 Novolog Vial Sliding Scale - SQ Not Given DAILY@0700 [facility] Protocol Labetalol HCl 200 mg 09/16/19 22:00 09/30/19 05:18 Normodyne - PO 200 mg TID [facility] Administration Levothyroxine Sodium 250 mcg 09/27/19 07:00 09/30/19 06:40 Synthroid - PO 250 mcg DAILY@0700 [facility] Administration Multivitamins/Minerals/Vitamin C 1 tab 09/19/19 10:00 09/30/19 09:38 Tab-A-Vit - PO 1 tab DAILY [facility] Administration Paroxetine HCl 40 mg 09/17/19 10:00 09/30/19 09:37 Paxil - PO 40 mg DAILY [facility] Administration ASSESSMENT/PLAN: Problem List - Problems (1) Fever and chills Assessment/Plan: resolved. blood cultures negative lactic acid within normal limits monitor off antibiotics per ID Code(s): R50.9 - FEVER, UNSPECIFIED (2) AV fistula Assessment/Plan: s/p AV Fistula +bruit, thrill+ left arm precautions Code(s): I77.0 - ARTERIOVENOUS FISTULA, ACQUIRED (3) Acute metabolic encephalopathy Assessment/Plan: resolved. patient deemed safe to make her own medical decisions by psyche. Code(s): G93.41 - METABOLIC ENCEPHALOPATHY (4) Myxedema coma Assessment/Plan: resolved. being followed by french comber was on Prednisone 10mg taper (completed) on discharge as per endodrine- Pt go go home on LT4 225 repeat TFT as an outpt. BGM daily as she has been having bgms <150 Code(s): E03.5 - MYXEDEMA COMA (5) Hypercapnic respiratory failure Assessment/Plan: Intubated on admission, extubated on 09/03/19, now room air Code(s): J96.92 - RESPIRATORY FAILURE, UNSPECIFIED WITH HYPERCAPNIA (6) SOB (shortness of breath) Assessment/Plan: s/p intubation, tolerating room air with stable oxygen saturations. Code(s): R06.02 - SHORTNESS OF BREATH (7) Morbid obesity Assessment/Plan: outpatient follow up as outpatient, dietary following. Code(s): E66.01 - MORBID (SEVERE) OBESITY DUE TO EXCESS CALORIES (8) AMS (altered mental status) Assessment/Plan: see acute metabolic encephalopathy Code(s): R41.82 - ALTERED MENTAL STATUS, UNSPECIFIED (9) Acute renal failure Assessment/Plan: dialysis per renal via shiley av fistula left forearm left arm precautions Code(s): N17.9 - ACUTE KIDNEY FAILURE, UNSPECIFIED (10) Metabolic acidosis Assessment/Plan: completed prednisone taper for possible adrenal insufficiency Code(s): E87.2 - ACIDOSIS (11) Diabetes Assessment/Plan: bgms in am once daily as bgms stable followed by french comber Code(s): E11.9 - TYPE 2 DIABETES MELLITUS WITHOUT COMPLICATIONS (12) Hypothermia Assessment/Plan: resolved Code(s): T68.XXXA - HYPOTHERMIA, INITIAL ENCOUNTER (13) Anemia Assessment/Plan: received 1 PRBC since admission. hmg 8 today, transfuse if <7 Code(s): D64.9 - ANEMIA, UNSPECIFIED Qualifiers: Other causes of anemia: chronic disease, other (14) HLD (hyperlipidemia) Code(s): E78.5 - HYPERLIPIDEMIA, UNSPECIFIED (15) Poor appetite Assessment/Plan: on nepro daily with a multivitamin Code(s): R63.0 - ANOREXIA (16) DVT prophylaxis Assessment/Plan: on heparin bid Code(s): Z29.9 - ENCOUNTER FOR PROPHYLACTIC MEASURES, UNSPECIFIED Visit type - Emergency Visit Emergency Visit: Yes ED Registration Date: 08/25/19 Care time: The patient presented to the Emergency Department on the above date and was hospitalized for further evaluation of their emergent condition. - New Patient This patient is new to me today: No - Critical Care Critical Care patient: No - Discharge Referral Referred to [facility] Med P.C.: No
--- NOTE | 2019-09-30 13:21 | PN ---
Progress Note, Physician History of Present Illness: stable no new issues - Current Medication List Current Medications: Active Medications Acetaminophen (Tylenol -) 650 mg PO Q6H PRN PRN Reason: Fever Or Pain Last Admin: 09/17/19 22:26 Dose: 650 mg Amlodipine Besylate (Norvasc -) 10 mg PO DAILY [facility] Last Admin: 09/30/19 09:38 Dose: 10 mg Atorvastatin Calcium (Lipitor -) 40 mg PO HS [facility] Last Admin: 09/29/19 21:38 Dose: 40 mg Famotidine (Pepcid -) 20 mg PO Q2D [facility] Last Admin: 09/30/19 09:38 Dose: 20 mg Insulin Aspart (Novolog Vial Sliding Scale -) 1 vial SQ DAILY@0700 [facility]; Protocol Last Admin: 09/30/19 06:00 Dose: Not Given Labetalol HCl (Normodyne -) 200 mg PO TID [facility] Last Admin: 09/30/19 05:18 Dose: 200 mg Levothyroxine Sodium (Synthroid -) 250 mcg PO DAILY@0700 [facility] Last Admin: 09/30/19 06:40 Dose: 250 mcg Multivitamins/Minerals/Vitamin C (Tab-A-Vit -) 1 tab PO DAILY [facility] Last Admin: 09/30/19 09:38 Dose: 1 tab Paroxetine HCl (Paxil -) 40 mg PO DAILY [facility] Last Admin: 09/30/19 09:37 Dose: 40 mg - Objective Vital Signs: Vital Signs Temperature 97.8 F 09/30/19 05:22 Pulse Rate 72 09/30/19 05:22 Respiratory Rate 20 09/30/19 05:22 Blood Pressure 150/87 09/30/19 05:22 O2 Sat by Pulse Oximetry (%) 96 09/30/19 10:00 Constitutional: Yes: No Distress, Calm Cardiovascular: Yes: S1, S2 Respiratory: Yes: Regular, CTA Bilaterally Gastrointestinal: Yes: Normal Bowel Sounds, Soft Musculoskeletal: Yes: WNL Extremities: Yes: Other Neurological: Yes: Alert, Oriented Psychiatric: Yes: Alert, Oriented Labs: CBC, BMP 09/30/19 07:15 09/30/19 07:15 INR, PTT INR 0.99 (0.83-1.09) 09/05/19 13:45 Assessment/Plan Problem List - Problems (1) LUCY (acute kidney injury) Code(s): N17.9 - ACUTE KIDNEY FAILURE, UNSPECIFIED (2) AMS (altered mental status) Code(s): R41.82 - ALTERED MENTAL STATUS, UNSPECIFIED (3) Acute metabolic encephalopathy Code(s): G93.41 - METABOLIC ENCEPHALOPATHY (4) Acute respiratory failure Code(s): J96.00 - ACUTE RESPIRATORY FAILURE, UNSP W HYPOXIA OR HYPERCAPNIA (5) Anemia Code(s): D64.9 - ANEMIA, UNSPECIFIED (6) COPD (chronic obstructive pulmonary disease) Code(s): J44.9 - CHRONIC OBSTRUCTIVE PULMONARY DISEASE, UNSPECIFIED (7) Diabetes Code(s): E11.9 - TYPE 2 DIABETES MELLITUS WITHOUT COMPLICATIONS (8) HTN (hypertension) Code(s): I10 - ESSENTIAL (PRIMARY) HYPERTENSION (9) Hypercapnic respiratory failure Code(s): J96.92 - RESPIRATORY FAILURE, UNSPECIFIED WITH HYPERCAPNIA (10) Hypothermia Code(s): T68.XXXA - HYPOTHERMIA, INITIAL ENCOUNTER (11) Morbid obesity Code(s): E66.01 - MORBID (SEVERE) OBESITY DUE TO EXCESS CALORIES (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 physio
[2019-09-30] MEDS ORDERED: LABETALOL HCL 100 MG TABLET (FP) ONE ×2 (14:32→21:42)
--- NOTE | 2019-09-30 15:21 | PN ---
Progress Note (short form) - Note Progress Note: 54 year old female history of HTN, HLD, DM COPD, Anemia thyroid cancer. Patient came with ams and had CHF, renal failure , anemia . James was intubated, she was hypothermic. She is on sedation . Ganesh has ct head and there is mild dilation of ventricles. patient has fistula made yesterday on left arm. weekend was uneventful, waiting for palcement NEUROLOGICAL EXAMINATION neck is supple , hypertensive, alert oriented x 3( knows her name where she is , is able to tell me today is september 06 but mistake on year) pupils reactive no face asymmetry moving all ext ct head reviewed and mild ventricular dilatation and this could be due to intercurrent illness Assessment/Plan 54 year old female history of HTN, HLD, DM COPD, Anemia thyroid cancer. Patient came with ams and had CHF, renal failure , anemia . Plan: continue current level of care. waiting for placement Thanking you so much Hill Hayden MD
--- NOTE | 2019-09-30 16:36 | PN ---
Progress Note, Physician History of Present Illness: Pt seen and examined at bedside. She is awake and alert. She denies shortness of breath. - Current Medication List Current Medications: Active Medications Acetaminophen (Tylenol -) 650 mg PO Q6H PRN PRN Reason: Fever Or Pain Last Admin: 09/17/19 22:26 Dose: 650 mg Amlodipine Besylate (Norvasc -) 10 mg PO DAILY [facility] Last Admin: 09/30/19 09:38 Dose: 10 mg Atorvastatin Calcium (Lipitor -) 40 mg PO HS [facility] Last Admin: 09/29/19 21:38 Dose: 40 mg Famotidine (Pepcid -) 20 mg PO Q2D [facility] Last Admin: 09/30/19 09:38 Dose: 20 mg Heparin Sodium (Porcine) (Heparin -) 5,000 unit SQ BID [facility] Insulin Aspart (Novolog Vial Sliding Scale -) 1 vial SQ DAILY@0700 [facility]; Protocol Last Admin: 09/30/19 06:00 Dose: Not Given Labetalol HCl (Normodyne -) 200 mg PO TID [facility] Last Admin: 09/30/19 14:36 Dose: 200 mg Levothyroxine Sodium (Synthroid -) 250 mcg PO DAILY@0700 [facility] Last Admin: 09/30/19 06:40 Dose: 250 mcg Multivitamins/Minerals/Vitamin C (Tab-A-Vit -) 1 tab PO DAILY [facility] Last Admin: 09/30/19 09:38 Dose: 1 tab Paroxetine HCl (Paxil -) 40 mg PO DAILY [facility] Last Admin: 09/30/19 09:37 Dose: 40 mg - Objective Vital Signs: Vital Signs Temperature 98.3 F 09/30/19 15:03 Pulse Rate 75 09/30/19 15:03 Respiratory Rate 20 09/30/19 15:03 Blood Pressure 141/72 09/30/19 15:03 O2 Sat by Pulse Oximetry (%) 96 09/30/19 10:00 Constitutional: Yes: Calm Eyes: Yes: Conjunctiva Clear HENT: Yes: Atraumatic Neck: Yes: Supple Cardiovascular: Yes: S1, S2 Respiratory: Yes: CTA Bilaterally Gastrointestinal: Yes: Soft Musculoskeletal: Yes: WNL Edema: No Neurological: Yes: Oriented Labs: CBC, BMP 09/30/19 07:15 09/30/19 07:15 INR, PTT INR 0.99 (0.83-1.09) 12/26/19 13:45 Problem List - Problems (1) AMS (altered mental status) Code(s): R41.82 - ALTERED MENTAL STATUS, UNSPECIFIED (2) Acute metabolic encephalopathy Code(s): G93.41 - METABOLIC ENCEPHALOPATHY (3) Acute renal failure Code(s): N17.9 - ACUTE KIDNEY FAILURE, UNSPECIFIED (4) Diabetes Code(s): E11.9 - TYPE 2 DIABETES MELLITUS WITHOUT COMPLICATIONS (5) Hypercapnic respiratory failure Code(s): J96.92 - RESPIRATORY FAILURE, UNSPECIFIED WITH HYPERCAPNIA (6) Hypothermia Code(s): T68.XXXA - HYPOTHERMIA, INITIAL ENCOUNTER (7) Morbid obesity Code(s): E66.01 - MORBID (SEVERE) OBESITY DUE TO EXCESS CALORIES Assessment/Plan Current Medications Generic Name Dose Route Start Last Admin Trade Name Freq PRN Reason Stop Dose Admin Acetaminophen 650 mg 09/16/19 15:24 09/17/19 22:26 Tylenol - PO 650 mg Q6H PRN Administration Fever Or Pain Amlodipine Besylate 10 mg 09/17/19 10:00 09/30/19 09:38 Norvasc - PO 10 mg DAILY [facility] Administration Atorvastatin Calcium 40 mg 09/16/19 22:00 09/29/19 21:38 Lipitor - PO 40 mg HS [facility] Administration Famotidine 20 mg 09/18/19 10:00 09/30/19 09:38 Pepcid - PO 20 mg Q2D [facility] Administration Heparin Sodium (Porcine) 5,000 unit 09/30/19 22:00 Heparin - SQ BID [facility] Insulin Aspart 1 vial 09/20/19 11:06 09/30/19 06:00 Novolog Vial Sliding Scale - SQ Not Given DAILY@0700 [facility] Protocol Labetalol HCl 200 mg 09/16/19 22:00 09/30/19 14:36 Normodyne - PO 200 mg TID [facility] Administration Levothyroxine Sodium 250 mcg 09/27/19 07:00 09/30/19 06:40 Synthroid - PO 250 mcg DAILY@0700 [facility] Administration Multivitamins/Minerals/Vitamin C 1 tab 09/19/19 10:00 09/30/19 09:38 Tab-A-Vit - PO 1 tab DAILY [facility] Administration Paroxetine HCl 40 mg 09/17/19 10:00 09/30/19 09:37 Paxil - PO 40 mg DAILY [facility] Administration Impression 1. LUCY 2. fluid overload 3. acute respiratory failure 4. hypothyroidism with tsh of 100 5. 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 urine tox pos for mdma 7. mild rhabdo 8. 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
[2019-09-30 17:52] LABS: COCAINE, UR NEGATIVE ng/ml (CUTOFF=300); METHADONE, UR NEGATIVE ng/ml (CUTOFF=300); OPIATES, URI NEGATIVE ng/ml (CUTOFF=300); PHENCYCLIDINE,URINE NEGATIVE ng/ml (CUTOFF=25); URINE AMPHETAMINES NEGATIVE ng/ml (CUTOFF=500); URINE BARBITURATES NEGATIVE ng/ml (CUTOFF=200); URINE BENZODIAZEPINES NEGATIVE ng/ml (CUTOFF=200)
[2019-09-30] MEDS: HEPARIN NA (PORCINE) 5,000 UNITS/ML 1ML VIAL SQ SCH (21:43)
[2019-09-30] MEDS: ATORVASTATIN CA 40 MG TABLET (FP) PO SCH (21:43)
[2019-10-01] MEDS ORDERED: LABETALOL HCL 100 MG TABLET (FP) ONE ×3 (06:23→21:05)
[2019-10-01] MEDS: LABETALOL HCL 200 MG TABLET (FP) PO SCH ×3 (06:24→21:19)
[2019-10-01] MEDS: LEVOTHYROXINE NA 125 MCG TABLET (FP) PO SCH (06:24)
[2019-10-01] MEDS: INSULIN SLIDING SCALE (NOVOLOG) 1 VIAL SQ SCH (06:24)
[2019-10-01 08:55] LABS: BASO % 0.7 % (0-2.0); HEMATOCRIT 24.1 % (32.4-45.2); HEMOGLOBIN 8.3 GM/dL (10.7-15.3); LYMPH % 48.8 % (8-40); MCH 30.4 pg (25.7-33.7); MCHC 34.3 g/dl (32.0-36.0); MEAN CELL VOLUME 88.6 fl (80-96); MEAN PLT VOLUME 7.5 fl (7.5-11.1); MONO % 6.5 % (3.8-10.2); PLATELET COUNT 311 K/MM3 (134-434); RBC 2.72 M/mm3 (3.60-5.2); RDW 15.3 % (11.6-15.6); WHITE BLOOD COUNT 5.9 K/mm3 (4.0-10.0)
[2019-10-01 09:22] LABS: ALBUMIN 2.9 g/dl (3.4-5.0); BILIRUBIN,TOTAL 1.1 mg/dL (0.2-1); BLOOD UREA NITROGEN 21.3 mg/dL (7-18); MAGNESIUM 1.5 mg/dL (1.8-2.4); POTASSIUM 4.2 mmol/L (3.5-5.1); TOT PROT 6.7 g/dl (6.4-8.2)
--- NOTE | 2019-10-01 10:22 | PN ---
Progress Note (short form) - Note Progress Note: Denies shortness of breath, cough or wheezing. No acute events overnight. Intake & Output 09/28/19 09/29/19 09/30/19 10/01/19 23:59 23:59 23:59 23:59 Intake Total 1540 1300 1580 200 Output Total 1500 3 Balance 40 1300 1577 200 Last Vital Signs Temp Pulse Resp BP Pulse Ox 98.4 F 68 18 117/60 96 10/01/19 06:56 10/01/19 10:00 10/01/19 10:00 10/01/19 10:00 09/30/19 10:00 Active Medications Acetaminophen (Tylenol -) 650 mg PO Q6H PRN PRN Reason: Fever Or Pain Last Admin: 09/17/19 22:26 Dose: 650 mg Amlodipine Besylate (Norvasc -) 10 mg PO DAILY [facility] Last Admin: 09/30/19 09:38 Dose: 10 mg Atorvastatin Calcium (Lipitor -) 40 mg PO HS [facility] Last Admin: 09/30/19 21:43 Dose: 40 mg Famotidine (Pepcid -) 20 mg PO Q2D [facility] Last Admin: 09/30/19 09:38 Dose: 20 mg Heparin Sodium (Porcine) (Heparin -) 5,000 unit SQ BID [facility] Last Admin: 09/30/19 21:43 Dose: 5,000 unit Sodium Chloride (Normal Saline -) 250 mls @ 3,000 mls/hr IV PRN PRN PRN Reason: Hypotension during Dialysis Stop: 10/01/19 16:36 Insulin Aspart (Novolog Vial Sliding Scale -) 1 vial SQ DAILY@0700 [facility]; Protocol Last Admin: 10/01/19 06:24 Dose: Not Given Labetalol HCl (Normodyne -) 200 mg PO TID [facility] Last Admin: 10/01/19 06:24 Dose: 200 mg Levothyroxine Sodium (Synthroid -) 250 mcg PO DAILY@0700 [facility] Last Admin: 10/01/19 06:24 Dose: 250 mcg Multivitamins/Minerals/Vitamin C (Tab-A-Vit -) 1 tab PO DAILY [facility] Last Admin: 09/30/19 09:38 Dose: 1 tab Paroxetine HCl (Paxil -) 40 mg PO DAILY [facility] Last Admin: 09/30/19 09:37 Dose: 40 mg Gen: NAD at rest Heart: RRR Lung: decreased breath sounds at the bases Abd: soft, nontender Ext: no edema Laboratory Results - last 24 hr 09/30/19 10/01/19 10/01/19 15:00 05:51 08:23 WBC 5.9 RBC 2.72 L Hgb 8.3 L Hct 24.1 L MCV 88.6 MCH 30.4 MCHC 34.3 RDW 15.3 Plt Count 311 MPV 7.5 Absolute Neuts (auto) 2.6 Neutrophils % 44.0 Lymphocytes % 48.8 H Monocytes % 6.5 Eosinophils % 0.0 Basophils % 0.7 Nucleated RBC % 0 Sodium Potassium Chloride Carbon Dioxide Anion Gap BUN Creatinine Est GFR (CKD-EPI)AfAm Est GFR (CKD-EPI)NonAf POC Glucometer 119 Random Glucose Calcium Magnesium Total Bilirubin AST ALT Alkaline Phosphatase Total Protein Albumin Opiates Screen Negative Methadone Screen Negative Barbiturate Screen Negative Phencyclidine Screen Negative Ur Amphetamines Screen Negative MDMA (Ecstasy) Screen Positive A* Benzodiazepines Screen Negative Cocaine Screen Negative U Marijuana (THC) Screen Negative 10/01/19 08:23 WBC RBC Hgb Hct MCV MCH MCHC RDW Plt Count MPV Absolute Neuts (auto) Neutrophils % Lymphocytes % Monocytes % Eosinophils % Basophils % Nucleated RBC % Sodium 131 L Potassium 4.2 Chloride 97 L Carbon Dioxide 27 Anion Gap 8 BUN 21.3 H Creatinine 5.0 H Est GFR (CKD-EPI)AfAm 10.72 Est GFR (CKD-EPI)NonAf 9.25 POC Glucometer Random Glucose 114 H Calcium 8.0 L Magnesium 1.5 L Total Bilirubin 1.1 H AST 36 ALT 27 Alkaline Phosphatase 247 H Total Protein 6.7 Albumin 2.9 L Opiates Screen Methadone Screen Barbiturate Screen Phencyclidine Screen Ur Amphetamines Screen MDMA (Ecstasy) Screen Benzodiazepines Screen Cocaine Screen U Marijuana (THC) Screen A/P Acute Hypercapneic Respiratory Failure improving Myxedema Coma resolved UTI treated Acute Kidney Injury requiring HD Volume Overload improving Pleural Effusions improved COPD DM Anemia - HD per renal - completed antibiotics - synthroid - inhaled bronchodilators - O2 to keep SpO2 >90% - PO as tolerated - DVT prophylaxis - DC planning in progress Dr Alonso
[2019-10-01] MEDS: EPOETIN ALFA 10,000 UNIT/1 ML VIAL IVPUSH ONE ×2 (10:30→10:49)
[2019-10-01] MEDS: HEPARIN NA (PORCINE) 5,000 UNITS/ML 1ML VIAL SQ SCH ×2 (10:48→21:19)
[2019-10-01] MEDS: amLODIPine BESYLATE 10 MG TABLET (FP) PO SCH (10:49)
[2019-10-01] MEDS: PARoxetine HCL 20 MG TABLET PO SCH (10:49)
[2019-10-01] MEDS: MULTIVITAMINS (DAILY MVI) TABLET (FP) PO SCH (10:49)
--- NOTE | 2019-10-01 12:09 | PN ---
Progress Note, Physician History of Present Illness: stable no new issues - Current Medication List Current Medications: Active Medications Acetaminophen (Tylenol -) 650 mg PO Q6H PRN PRN Reason: Fever Or Pain Last Admin: 09/17/19 22:26 Dose: 650 mg Amlodipine Besylate (Norvasc -) 10 mg PO DAILY [facility] [place] Last Admin: 10/01/19 10:49 Dose: Not Given Atorvastatin Calcium (Lipitor -) 40 mg PO HS [facility] Last Admin: 09/30/19 21:43 Dose: 40 mg Famotidine (Pepcid -) 20 mg PO Q2D [facility] Last Admin: 09/30/19 09:38 Dose: 20 mg Heparin Sodium (Porcine) (Heparin -) 5,000 unit SQ BID [facility] [place] Last Admin: 10/01/19 10:48 Dose: Not Given Sodium Chloride (Normal Saline -) 250 mls @ 3,000 mls/hr IV PRN PRN PRN Reason: Hypotension during Dialysis Stop: 10/01/19 16:36 Insulin Aspart (Novolog Vial Sliding Scale -) 1 vial SQ DAILY@0700 [facility] [place]; Protocol Last Admin: 10/01/19 06:24 Dose: Not Given Labetalol HCl (Normodyne -) 200 mg PO TID [facility] [place] Last Admin: 10/01/19 06:24 Dose: 200 mg Levothyroxine Sodium (Synthroid -) 250 mcg PO DAILY@0700 [facility] [place] Last Admin: 10/01/19 06:24 Dose: 250 mcg Multivitamins/Minerals/Vitamin C (Tab-A-Vit -) 1 tab PO DAILY [facility] Last Admin: 10/01/19 10:49 Dose: Not Given Paroxetine HCl (Paxil -) 40 mg PO DAILY [facility] Last Admin: 10/01/19 10:49 Dose: Not Given - Objective Vital Signs: Vital Signs Temperature 98.4 F 10/01/19 10:00 Pulse Rate 72 10/01/19 11:00 Respiratory Rate 18 10/01/19 11:00 Blood Pressure 140/81 10/01/19 11:00 O2 Sat by Pulse Oximetry (%) 96 09/30/19 10:00 Constitutional: Yes: No Distress, Calm Cardiovascular: Yes: S1, S2 Respiratory: Yes: Regular, CTA Bilaterally Gastrointestinal: Yes: Normal Bowel Sounds, Soft Musculoskeletal: Yes: WNL Extremities: Yes: WNL Neurological: Yes: Alert, Oriented Psychiatric: Yes: Alert, Oriented Labs: CBC, BMP 10/01/19 08:23 10/01/19 08:23 INR, PTT INR 0.99 (0.83-1.09) 09/05/19 13:45 Assessment/Plan Problem List - Problems (1) LUCY (acute kidney injury) Code(s): N17.9 - ACUTE KIDNEY FAILURE, UNSPECIFIED (2) AMS (altered mental status) Code(s): R41.82 - ALTERED MENTAL STATUS, UNSPECIFIED (3) Acute metabolic encephalopathy Code(s): G93.41 - METABOLIC ENCEPHALOPATHY (4) Acute respiratory failure Code(s): J96.00 - ACUTE RESPIRATORY FAILURE, UNSP W HYPOXIA OR HYPERCAPNIA (5) Anemia Code(s): D64.9 - ANEMIA, UNSPECIFIED (6) COPD (chronic obstructive pulmonary disease) Code(s): J44.9 - CHRONIC OBSTRUCTIVE PULMONARY DISEASE, UNSPECIFIED (7) Diabetes Code(s): E11.9 - TYPE 2 DIABETES MELLITUS WITHOUT COMPLICATIONS (8) HTN (hypertension) Code(s): I10 - ESSENTIAL (PRIMARY) HYPERTENSION (9) Hypercapnic respiratory failure Code(s): J96.92 - RESPIRATORY FAILURE, UNSPECIFIED WITH HYPERCAPNIA (10) Hypothermia Code(s): T68.XXXA - HYPOTHERMIA, INITIAL ENCOUNTER (11) Morbid obesity Code(s): E66.01 - MORBID (SEVERE) OBESITY DUE TO EXCESS CALORIES (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 physio
[2019-10-01] MEDS ORDERED: SODIUM CHLORIDE 250 ML IV PRN (12:10)
--- NOTE | 2019-10-01 14:37 | PN ---
Progress Note, Physician History of Present Illness: Pt seen and examined at bedside. She is awake and alert. She tolerated HD. - Current Medication List Current Medications: Active Medications Acetaminophen (Tylenol -) 650 mg PO Q6H PRN PRN Reason: Fever Or Pain Last Admin: 09/17/19 22:26 Dose: 650 mg Amlodipine Besylate (Norvasc -) 10 mg PO DAILY [facility] Last Admin: 10/01/19 10:49 Dose: Not Given Atorvastatin Calcium (Lipitor -) 40 mg PO HS [facility] Last Admin: 09/30/19 21:43 Dose: 40 mg Famotidine (Pepcid -) 20 mg PO Q2D [facility] Last Admin: 09/30/19 09:38 Dose: 20 mg Heparin Sodium (Porcine) (Heparin -) 5,000 unit SQ BID [facility] Last Admin: 10/01/19 10:48 Dose: Not Given Insulin Aspart (Novolog Vial Sliding Scale -) 1 vial SQ DAILY@0700 [facility]; Protocol Last Admin: 10/01/19 06:24 Dose: Not Given Labetalol HCl (Normodyne -) 200 mg PO TID [facility] Last Admin: 10/01/19 14:19 Dose: 200 mg Levothyroxine Sodium (Synthroid -) 250 mcg PO DAILY@0700 [facility] Last Admin: 10/01/19 06:24 Dose: 250 mcg Multivitamins/Minerals/Vitamin C (Tab-A-Vit -) 1 tab PO DAILY [facility] Last Admin: 10/01/19 10:49 Dose: Not Given Paroxetine HCl (Paxil -) 40 mg PO DAILY [facility] Last Admin: 10/01/19 10:49 Dose: Not Given - Objective Vital Signs: Vital Signs Temperature 98.4 F 10/01/19 10:00 Pulse Rate 74 10/01/19 12:40 Respiratory Rate 18 10/01/19 12:40 Blood Pressure 132/84 10/01/19 12:40 O2 Sat by Pulse Oximetry (%) 96 09/30/19 10:00 Constitutional: Yes: Calm Eyes: Yes: Conjunctiva Clear HENT: Yes: Atraumatic Neck: Yes: Supple Cardiovascular: Yes: S1, S2 Respiratory: Yes: CTA Bilaterally Gastrointestinal: Yes: Soft Genitourinary: Yes: WNL Musculoskeletal: Yes: WNL Edema: No Integumentary: Yes: Tattoos Neurological: Yes: Oriented Psychiatric: Yes: Oriented Labs: CBC, BMP 10/01/19 08:23 10/01/19 08:23 INR, PTT INR 0.99 (0.83-1.09) 09/05/19 13:45 Problem List - Problems (1) AMS (altered mental status) Code(s): R41.82 - ALTERED MENTAL STATUS, UNSPECIFIED (2) Acute metabolic encephalopathy Code(s): G93.41 - METABOLIC ENCEPHALOPATHY (3) Acute renal failure Code(s): N17.9 - ACUTE KIDNEY FAILURE, UNSPECIFIED (4) Diabetes Code(s): E11.9 - TYPE 2 DIABETES MELLITUS WITHOUT COMPLICATIONS (5) Hypercapnic respiratory failure Code(s): J96.92 - RESPIRATORY FAILURE, UNSPECIFIED WITH HYPERCAPNIA (6) Hypothermia Code(s): T68.XXXA - HYPOTHERMIA, INITIAL ENCOUNTER (7) Morbid obesity Code(s): E66.01 - MORBID (SEVERE) OBESITY DUE TO EXCESS CALORIES Assessment/Plan Current Medications Generic Name Dose Route Start Last Admin Trade Name Freq PRN Reason Stop Dose Admin Acetaminophen 650 mg 09/16/19 15:24 09/17/19 22:26 Tylenol - PO 650 mg Q6H PRN Administration Fever Or Pain Amlodipine Besylate 10 mg 09/17/19 10:00 10/01/19 10:49 Norvasc - PO Not Given DAILY [facility] Atorvastatin Calcium 40 mg 09/16/19 22:00 09/30/19 21:43 Lipitor - PO 40 mg HS [facility] Administration Famotidine 20 mg 09/18/19 10:00 09/30/19 09:38 Pepcid - PO 20 mg Q2D [facility] Administration Heparin Sodium (Porcine) 5,000 unit 09/30/19 22:00 10/01/19 10:48 Heparin - SQ Not Given BID [facility] Insulin Aspart 1 vial 09/20/19 11:06 10/01/19 06:24 Novolog Vial Sliding Scale - SQ Not Given DAILY@0700 [facility] Protocol Labetalol HCl 200 mg 09/16/19 22:00 10/01/19 14:19 Normodyne - PO 200 mg TID [facility] Administration Levothyroxine Sodium 250 mcg 09/27/19 07:00 10/01/19 06:24 Synthroid - PO 250 mcg DAILY@0700 [facility] Administration Multivitamins/Minerals/Vitamin C 1 tab 09/19/19 10:00 01/21/20 10:49 Tab-A-Vit - PO Not Given DAILY [facility] Paroxetine HCl 40 mg 09/17/19 10:00 10/01/19 10:49 Paxil - PO Not Given DAILY [facility] Impression 1. LUCY 2. fluid overload 3. acute respiratory failure 4. hypothyroidism with tsh of 100 5. 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 urine tox pos for mdma 7. mild rhabdo 8. hepatitis B Plan - HD today - pending placement - repeat serologies - pt refused kidney biopsy - renal diet - monitor urine output
[2019-10-01] MEDS ORDERED: MAGNESIUM OXIDE 400 MG TABLET (FP) PO ONE (14:38)
--- NOTE | 2019-10-01 15:38 | PN ---
Progress Note (short form) - Note Progress Note: 54 year old female history of HTN, HLD, DM COPD, Anemia thyroid cancer. Patient came with ams and had CHF, renal failure , anemia . James was intubated, she was hypothermic. She is on sedation . Ganesh has ct head and there is mild dilation of ventricles. patient has fistula made yesterday on left arm. no new symptoms NEUROLOGICAL EXAMINATION neck is supple , hypertensive, alert oriented x 3( knows her name where she is , is able to tell me today is september 06 but mistake on year) pupils reactive no face asymmetry moving all ext ct head reviewed and mild ventricular dilatation and this could be due to intercurrent illness Assessment/Plan 54 year old female history of HTN, HLD, DM COPD, Anemia thyroid cancer. Patient came with ams and had CHF, renal failure , anemia . Plan: waiting for placement Thanking you so much Hill Hayden MD
--- NOTE | 2019-10-01 15:43 | PN ---
Physical Exam: SUBJECTIVE: Patient seen and examined at the bedside. OBJECTIVE: Patient is a 54 year old female with a significant past medical history of hypertension, hyperlipidemia, diabetes, COPD, anemia, thyroid cancer 6 years ago (no prior admission to [facility]). Patient brought into the ED for altered mental status, acute shortness of breath, metabolic acidosis. She was found to have an elevated TSH, low t4 and hypothermic ([id number] mariana hugger). on admission had renal failure with a creat of 7.7, bun of 65, mag 1.6, elevated ast/alt and now on dialysis. She is pending outpatient dialysis center acceptance as she is hep b+ and will need isolation. Vital Signs Period Temp Pulse Resp BP Sys/Amos Pulse Ox Last 24 Hr 98.0 F-98.4 F 41-87 18-20 117-160/58-84 GENERAL: The patient is awake, alert and in no acute distress. HEAD: Normal with no signs of trauma. EYES: PERRL, extraocular movements intact, sclera anicteric, conjunctiva clear. No ptosis. ENT: Ears normal, nares patent, oropharynx clear without exudates, moist mucous membranes. NECK: Trachea midline, full range of motion, supple. LUNGS: clear to auscultation bilaterally, stable oxygen saturations on room air HEART: Regular rate and rhythm ABDOMEN: Soft, nontender, nondistended, normoactive bowel sounds, no guarding EXTREMITIES: no edema NEUROLOGICAL: awake, alert PSYCH: Normal mood, normal affect. SKIN: Warm, dry, normal turgor, no rashes or lesions noted Laboratory Results - last 24 hr 09/30/19 10/01/19 10/01/19 15:00 05:51 08:23 WBC 5.9 RBC 2.72 L Hgb 8.3 L Hct 24.1 L MCV 88.6 MCH 30.4 MCHC 34.3 RDW 15.3 Plt Count 311 MPV 7.5 Absolute Neuts (auto) 2.6 Neutrophils % 44.0 Lymphocytes % 48.8 H Monocytes % 6.5 Eosinophils % 0.0 Basophils % 0.7 Nucleated RBC % 0 Sodium Potassium Chloride Carbon Dioxide Anion Gap BUN Creatinine Est GFR (CKD-EPI)AfAm Est GFR (CKD-EPI)NonAf POC Glucometer 119 Random Glucose Calcium Magnesium Total Bilirubin AST ALT Alkaline Phosphatase Total Protein Albumin Opiates Screen Negative Methadone Screen Negative Barbiturate Screen Negative Phencyclidine Screen Negative Ur Amphetamines Screen Negative MDMA (Ecstasy) Screen Positive A* Benzodiazepines Screen Negative Cocaine Screen Negative U Marijuana (THC) Screen Negative 10/01/19 08:23 WBC RBC Hgb Hct MCV MCH MCHC RDW Plt Count MPV Absolute Neuts (auto) Neutrophils % Lymphocytes % Monocytes % Eosinophils % Basophils % Nucleated RBC % Sodium 131 L Potassium 4.2 Chloride 97 L Carbon Dioxide 27 Anion Gap 8 BUN 21.3 H Creatinine 5.0 H Est GFR (CKD-EPI)AfAm 10.72 Est GFR (CKD-EPI)NonAf 9.25 POC Glucometer Random Glucose 114 H Calcium 8.0 L Magnesium 1.5 L Total Bilirubin 1.1 H AST 36 ALT 27 Alkaline Phosphatase 247 H Total Protein 6.7 Albumin 2.9 L Opiates Screen Methadone Screen Barbiturate Screen Phencyclidine Screen Ur Amphetamines Screen MDMA (Ecstasy) Screen Benzodiazepines Screen Cocaine Screen U Marijuana (THC) Screen Active Medications Generic Name Dose Route Start Last Admin Trade Name Freq PRN Reason Stop Dose Admin Acetaminophen 650 mg 09/16/19 15:24 09/17/19 22:26 Tylenol - PO 650 mg Q6H PRN Administration Fever Or Pain Amlodipine Besylate 10 mg 09/17/19 10:00 10/01/19 10:49 Norvasc - PO Not Given DAILY [facility] Atorvastatin Calcium 40 mg 09/16/19 22:00 09/30/19 21:43 Lipitor - PO 40 mg HS [facility] Administration Famotidine 20 mg 09/18/19 10:00 09/30/19 09:38 Pepcid - PO 20 mg Q2D [facility] Administration Heparin Sodium (Porcine) 5,000 unit 09/30/19 22:00 10/01/19 10:48 Heparin - SQ Not Given BID [facility] Insulin Aspart 1 vial 09/20/19 11:06 10/01/19 06:24 Novolog Vial Sliding Scale - SQ Not Given DAILY@0700 [facility] Protocol Labetalol HCl 200 mg 09/16/19 22:00 10/01/19 14:19 Normodyne - PO 200 mg TID [facility] Administration Levothyroxine Sodium 250 mcg 09/27/19 07:00 10/01/19 06:24 Synthroid - PO 250 mcg DAILY@0700 [facility] Administration Multivitamins/Minerals/Vitamin C 1 tab 09/19/19 10:00 10/01/19 10:49 Tab-A-Vit - PO Not Given DAILY [facility] Paroxetine HCl 40 mg 09/17/19 10:00 10/01/19 10:49 Paxil - PO Not Given DAILY [facility] ASSESSMENT/PLAN: Problem List - Problems (1) Fever and chills Assessment/Plan: resolved. blood cultures negative lactic acid within normal limits monitor off antibiotics per ID Code(s): R50.9 - FEVER, UNSPECIFIED (2) AV fistula Assessment/Plan: s/p AV Fistula +bruit, thrill+ left arm precautions Code(s): I77.0 - ARTERIOVENOUS FISTULA, ACQUIRED (3) Acute metabolic encephalopathy Assessment/Plan: resolved. patient deemed safe to make her own medical decisions by psyche. Code(s): G93.41 - METABOLIC ENCEPHALOPATHY (4) Myxedema coma Assessment/Plan: resolved. being followed by human resources talent manager was on Prednisone 10mg taper (completed) on discharge as per endodrine- Pt go go home on LT4 225 repeat TFT as an outpt. BGM daily as she has been having bgms <150 Code(s): E03.5 - MYXEDEMA COMA (5) Hypercapnic respiratory failure Assessment/Plan: Intubated on admission, extubated on 09/03/19, now room air Code(s): J96.92 - RESPIRATORY FAILURE, UNSPECIFIED WITH HYPERCAPNIA (6) SOB (shortness of breath) Assessment/Plan: s/p intubation, tolerating room air with stable oxygen saturations. Code(s): R06.02 - SHORTNESS OF BREATH (7) Morbid obesity Assessment/Plan: outpatient follow up as outpatient, dietary following. Code(s): E66.01 - MORBID (SEVERE) OBESITY DUE TO EXCESS CALORIES (8) AMS (altered mental status) Assessment/Plan: see acute metabolic encephalopathy Code(s): R41.82 - ALTERED MENTAL STATUS, UNSPECIFIED (9) Acute renal failure Assessment/Plan: dialysis per renal via shiley av fistula left forearm left arm precautions Code(s): N17.9 - ACUTE KIDNEY FAILURE, UNSPECIFIED (10) Metabolic acidosis Assessment/Plan: completed prednisone taper for possible adrenal insufficiency Code(s): E87.2 - ACIDOSIS (11) Diabetes Assessment/Plan: bgms in am once daily as bgms stable followed by human resources talent manager Code(s): E11.9 - TYPE 2 DIABETES MELLITUS WITHOUT COMPLICATIONS (12) Hypothermia Assessment/Plan: resolved Code(s): T68.XXXA - HYPOTHERMIA, INITIAL ENCOUNTER (13) Anemia Assessment/Plan: received 1 PRBC since admission. hmg 8 today, transfuse if <7 Code(s): D64.9 - ANEMIA, UNSPECIFIED Qualifiers: Other causes of anemia: chronic disease, other (14) HLD (hyperlipidemia) Code(s): E78.5 - HYPERLIPIDEMIA, UNSPECIFIED (15) Poor appetite Assessment/Plan: on nepro daily with a multivitamin Code(s): R63.0 - ANOREXIA (16) DVT prophylaxis Assessment/Plan: on heparin bid Code(s): Z29.9 - ENCOUNTER FOR PROPHYLACTIC MEASURES, UNSPECIFIED Visit type - Emergency Visit Emergency Visit: Yes ED Registration Date: 08/25/19 Care time: The patient presented to the Emergency Department on the above date and was hospitalized for further evaluation of their emergent condition. - New Patient This patient is new to me today: No - Critical Care Critical Care patient: No - Discharge Referral Referred to [facility] Med [facility].C.: No
[2019-10-01 19:05] VITALS: BMI 40.9
[2019-10-01] MEDS: ATORVASTATIN CA 40 MG TABLET (FP) PO SCH (21:19)
[2019-10-02] MEDS ORDERED: LABETALOL HCL 100 MG TABLET (FP) ONE ×3 (06:02→21:24)
[2019-10-02] MEDS: LEVOTHYROXINE NA 125 MCG TABLET (FP) PO SCH (06:13)
[2019-10-02] MEDS: LABETALOL HCL 200 MG TABLET (FP) PO SCH ×3 (06:14→21:26)
[2019-10-02] MEDS: INSULIN SLIDING SCALE (NOVOLOG) 1 VIAL SQ SCH (06:14)
--- NOTE | 2019-10-02 08:25 | PN ---
Progress Note (short form) - Note Progress Note: NAD on RA. Denies shortness of breath, cough or wheezing. No acute events overnight. Intake & Output 09/29/19 09/30/19 10/01/19 10/02/19 23:59 23:59 23:59 23:59 Intake Total 1300 1580 1050 300 Output Total 3 Balance 1300 1577 1050 300 Last Vital Signs Temp Pulse Resp BP Pulse Ox 97.9 F 74 21 H 149/76 94 L 10/02/19 05:53 10/02/19 05:53 10/02/19 05:53 10/02/19 05:50 10/01/19 21:00 Active Medications Acetaminophen (Tylenol -) 650 mg PO Q6H PRN PRN Reason: Fever Or Pain Last Admin: 09/17/19 22:26 Dose: 650 mg Amlodipine Besylate (Norvasc -) 10 mg PO DAILY [facility] Last Admin: 10/01/19 10:49 Dose: Not Given Atorvastatin Calcium (Lipitor -) 40 mg PO HS [facility] Last Admin: 10/01/19 21:19 Dose: 40 mg Famotidine (Pepcid -) 20 mg PO Q2D [facility] Last Admin: 09/30/19 09:38 Dose: 20 mg Heparin Sodium (Porcine) (Heparin -) 5,000 unit SQ BID [facility] Last Admin: 10/01/19 21:19 Dose: 5,000 unit Insulin Aspart (Novolog Vial Sliding Scale -) 1 vial SQ DAILY@0700 [facility]; Protocol Last Admin: 10/02/19 06:14 Dose: Not Given Labetalol HCl (Normodyne -) 200 mg PO TID [facility] Last Admin: 10/02/19 06:14 Dose: 200 mg Levothyroxine Sodium (Synthroid -) 250 mcg PO DAILY@0700 [facility] Last Admin: 10/02/19 06:13 Dose: 250 mcg Multivitamins/Minerals/Vitamin C (Tab-A-Vit -) 1 tab PO DAILY [facility] Last Admin: 10/01/19 10:49 Dose: Not Given Paroxetine HCl (Paxil -) 40 mg PO DAILY [facility] Last Admin: 10/01/19 10:49 Dose: Not Given Gen: NAD at rest Heart: RRR Lung: decreased breath sounds at the bases Abd: soft, nontender Ext: no edema Laboratory Results - last 24 hr 10/01/19 10/01/19 10/02/19 08:23 08:23 06:07 WBC 5.9 RBC 2.72 L Hgb 8.3 L Hct 24.1 L MCV 88.6 MCH 30.4 MCHC 34.3 RDW 15.3 Plt Count 311 MPV 7.5 Absolute Neuts (auto) 2.6 Neutrophils % 44.0 Lymphocytes % 48.8 H Monocytes % 6.5 Eosinophils % 0.0 Basophils % 0.7 Nucleated RBC % 0 Sodium 131 L Potassium 4.2 Chloride 97 L Carbon Dioxide 27 Anion Gap 8 BUN 21.3 H Creatinine 5.0 H Est GFR (CKD-EPI)AfAm 10.72 Est GFR (CKD-EPI)NonAf 9.25 POC Glucometer 126 Random Glucose 114 H Calcium 8.0 L Magnesium 1.5 L Total Bilirubin 1.1 H AST 36 ALT 27 Alkaline Phosphatase 247 H Total Protein 6.7 Albumin 2.9 L A/P Acute Hypercapneic Respiratory Failure improving Myxedema Coma resolved UTI treated Acute Kidney Injury requiring HD Volume Overload improving Pleural Effusions improved COPD DM Anemia - HD per renal - completed antibiotics - synthroid - inhaled bronchodilators - O2 to keep SpO2 >90% - PO as tolerated - DVT prophylaxis - DC planning in progress Dr Alonso
[2019-10-02 09:12] LABS: BASO % 0.8 % (0-2.0); HEMATOCRIT 22.2 % (32.4-45.2); HEMOGLOBIN 7.8 GM/dL (10.7-15.3); LYMPH % 46.1 % (8-40); MCH 30.5 pg (25.7-33.7); MCHC 34.9 g/dl (32.0-36.0); MEAN CELL VOLUME 87.3 fl (80-96); MEAN PLT VOLUME 7.8 fl (7.5-11.1); MONO % 5.8 % (3.8-10.2); NEUT % 47.3 % (42.8-82.8); PLATELET COUNT 291 K/MM3 (134-434); RBC 2.55 M/mm3 (3.60-5.2); RDW 15.4 % (11.6-15.6); WHITE BLOOD COUNT 5.4 K/mm3 (4.0-10.0)
[2019-10-02] MEDS: PARoxetine HCL 20 MG TABLET PO SCH (09:49)
[2019-10-02] MEDS: amLODIPine BESYLATE 10 MG TABLET (FP) PO SCH (09:49)
[2019-10-02] MEDS: HEPARIN NA (PORCINE) 5,000 UNITS/ML 1ML VIAL SQ SCH ×2 (09:50→21:27)
[2019-10-02] MEDS: FAMOTIDINE 20 MG TABLET PO SCH (09:50)
[2019-10-02 09:55] LABS: ALBUMIN 2.8 g/dl (3.4-5.0); BILIRUBIN,TOTAL 0.5 mg/dL (0.2-1); CALCIUM 8.4 mg/dL (8.5-10.1); CREATININE 3.4 mg/dL (0.55-1.3); MAGNESIUM 1.6 mg/dL (1.8-2.4); POTASSIUM 3.7 mmol/L (3.5-5.1); TOT PROT 6.3 g/dl (6.4-8.2)
--- NOTE | 2019-10-02 10:34 | PN ---
Progress Note, Physician History of Present Illness: stable no new issues - Current Medication List Current Medications: Active Medications Acetaminophen (Tylenol -) 650 mg PO Q6H PRN PRN Reason: Fever Or Pain Last Admin: 09/17/19 22:26 Dose: 650 mg Amlodipine Besylate (Norvasc -) 10 mg PO DAILY [facility] Last Admin: 10/02/19 09:49 Dose: 10 mg Atorvastatin Calcium (Lipitor -) 40 mg PO HS [facility] Last Admin: 10/01/19 21:19 Dose: 40 mg Famotidine (Pepcid -) 20 mg PO Q2D [facility] Last Admin: 10/02/19 09:50 Dose: 20 mg Heparin Sodium (Porcine) (Heparin -) 5,000 unit SQ BID [facility] Last Admin: 10/02/19 09:50 Dose: 5,000 unit Insulin Aspart (Novolog Vial Sliding Scale -) 1 vial SQ DAILY@0700 [facility]; Protocol Last Admin: 10/02/19 06:14 Dose: Not Given Labetalol HCl (Normodyne -) 200 mg PO TID [facility] Last Admin: 10/02/19 06:14 Dose: 200 mg Levothyroxine Sodium (Synthroid -) 250 mcg PO DAILY@0700 [facility] Last Admin: 10/02/19 06:13 Dose: 250 mcg Paroxetine HCl (Paxil -) 40 mg PO DAILY [facility] Last Admin: 10/02/19 09:49 Dose: 40 mg - Objective Vital Signs: Vital Signs Temperature 97.9 F 10/02/19 05:53 Pulse Rate 74 10/02/19 05:53 Respiratory Rate 21 H 10/02/19 05:53 Blood Pressure 149/76 10/02/19 05:50 O2 Sat by Pulse Oximetry (%) 94 L 10/01/19 21:00 Constitutional: Yes: No Distress, Calm Cardiovascular: Yes: S1, S2 Respiratory: Yes: Regular, CTA Bilaterally Gastrointestinal: Yes: Normal Bowel Sounds, Soft Musculoskeletal: Yes: WNL Extremities: Yes: WNL Neurological: Yes: Alert, Oriented Psychiatric: Yes: Alert, Oriented Labs: CBC, BMP 10/02/19 07:45 10/02/19 07:45 INR, PTT INR 0.99 (0.83-1.09) 09/05/19 13:45 Assessment/Plan Problem List - Problems (1) LUCY (acute kidney injury) Code(s): N17.9 - ACUTE KIDNEY FAILURE, UNSPECIFIED (2) AMS (altered mental status) Code(s): R41.82 - ALTERED MENTAL STATUS, UNSPECIFIED (3) Acute metabolic encephalopathy Code(s): G93.41 - METABOLIC ENCEPHALOPATHY (4) Acute respiratory failure Code(s): J96.00 - ACUTE RESPIRATORY FAILURE, UNSP W HYPOXIA OR HYPERCAPNIA (5) Anemia Code(s): D64.9 - ANEMIA, UNSPECIFIED (6) COPD (chronic obstructive pulmonary disease) Code(s): J44.9 - CHRONIC OBSTRUCTIVE PULMONARY DISEASE, UNSPECIFIED (7) Diabetes Code(s): E11.9 - TYPE 2 DIABETES MELLITUS WITHOUT COMPLICATIONS (8) HTN (hypertension) Code(s): I10 - ESSENTIAL (PRIMARY) HYPERTENSION (9) Hypercapnic respiratory failure Code(s): J96.92 - RESPIRATORY FAILURE, UNSPECIFIED WITH HYPERCAPNIA (10) Hypothermia Code(s): T68.XXXA - HYPOTHERMIA, INITIAL ENCOUNTER (11) Morbid obesity Code(s): E66.01 - MORBID (SEVERE) OBESITY DUE TO EXCESS CALORIES (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 physio
--- NOTE | 2019-10-02 12:15 | PN ---
Physical Exam: SUBJECTIVE: Patient seen and examined. sitting in chair eating lunch. denies pain. wants to leave by monday, and verbalizes frustration not having an outpatient dialysis center. OBJECTIVE: Patient is a 54 year old female with a significant past medical history of hypertension, hyperlipidemia, diabetes, COPD, anemia, thyroid cancer 6 years ago (no prior admission to [facility]). Patient brought into the ED for altered mental status, acute shortness of breath, metabolic acidosis. She was found to have an elevated TSH, low t4 and hypothermic ([id number] mariana hugger). on admission had renal failure with a creat of 7.7, bun of 65, mag 1.6, elevated ast/alt and now on dialysis. She is pending outpatient dialysis center acceptance as she is hep b+ and will need isolation. Vital Signs Period Temp Pulse Resp BP Sys/Amos Pulse Ox Last 24 Hr 97.8 F-98.1 F 70-79 18-21 132-153/76-89 94 GENERAL: The patient is awake, alert and in no acute distress. HEAD: Normal with no signs of trauma. EYES: PERRL, extraocular movements intact, sclera anicteric, conjunctiva clear. No ptosis. ENT: Ears normal, nares patent, oropharynx clear without exudates, moist mucous membranes. NECK: Trachea midline, full range of motion, supple. LUNGS: left lower lobe w/fine crackle at base, right lung clear. tolerating room air with stable oxygen sats HEART: Regular rate and rhythm ABDOMEN: Soft, nontender, nondistended, normoactive bowel sounds, no guarding EXTREMITIES: no edema NEUROLOGICAL: awake, alert PSYCH: Normal mood, normal affect. SKIN: Warm, dry, normal turgor, no rashes or lesions noted Laboratory Results - last 24 hr 10/02/19 10/02/19 10/02/19 06:07 07:45 07:45 WBC 5.4 RBC 2.55 L Hgb 7.8 L Hct 22.2 L MCV 87.3 MCH 30.5 MCHC 34.9 RDW 15.4 Plt Count 291 MPV 7.8 Absolute Neuts (auto) 2.6 Neutrophils % 47.3 Lymphocytes % 46.1 H Monocytes % 5.8 Eosinophils % 0.0 Basophils % 0.8 Nucleated RBC % 0 Sodium 135 L Potassium 3.7 Chloride 98 Carbon Dioxide 30 Anion Gap 7 L BUN 15.0 Creatinine 3.4 H Est GFR (CKD-EPI)AfAm 17.08 Est GFR (CKD-EPI)NonAf 14.74 POC Glucometer 126 Random Glucose 122 H Calcium 8.4 L Magnesium 1.6 L Total Bilirubin 0.5 AST 24 ALT 25 Alkaline Phosphatase 238 H Total Protein 6.3 L Albumin 2.8 L Active Medications Generic Name Dose Route Start Last Admin Trade Name Freq PRN Reason Stop Dose Admin Acetaminophen 650 mg 09/16/19 15:24 09/17/19 22:26 Tylenol - PO 650 mg Q6H PRN Administration Fever Or Pain Amlodipine Besylate 10 mg 09/17/19 10:00 10/02/19 09:49 Norvasc - PO 10 mg DAILY [facility] Administration Atorvastatin Calcium 40 mg 09/16/19 22:00 10/01/19 21:19 Lipitor - PO 40 mg HS [facility] Administration Famotidine 20 mg 09/18/19 10:00 10/02/19 09:50 Pepcid - PO 20 mg Q2D [facility] Administration Heparin Sodium (Porcine) 5,000 unit 09/30/19 22:00 10/02/19 09:50 Heparin - SQ 5,000 unit BID [facility] Administration Insulin Aspart 1 vial 09/20/19 11:06 10/02/19 06:14 Novolog Vial Sliding Scale - SQ Not Given DAILY@0700 [facility] Protocol Labetalol HCl 200 mg 09/16/19 22:00 10/02/19 06:14 Normodyne - PO 200 mg TID [facility] Administration Levothyroxine Sodium 250 mcg 09/27/19 07:00 10/02/19 06:13 Synthroid - PO 250 mcg DAILY@0700 [facility] Administration Paroxetine HCl 40 mg 09/17/19 10:00 10/02/19 09:49 Paxil - PO 40 mg DAILY [facility] Administration ASSESSMENT/PLAN: Problem List - Problems (1) Fever and chills Assessment/Plan: resolved. blood cultures negative lactic acid within normal limits monitor off antibiotics per ID Code(s): R50.9 - FEVER, UNSPECIFIED (2) AV fistula Assessment/Plan: s/p AV Fistula +bruit, thrill+ left arm precautions Code(s): I77.0 - ARTERIOVENOUS FISTULA, ACQUIRED (3) Acute metabolic encephalopathy Assessment/Plan: resolved. patient deemed safe to make her own medical decisions by psyche. Code(s): G93.41 - METABOLIC ENCEPHALOPATHY (4) Myxedema coma Assessment/Plan: resolved. being followed by bank secrecy act officer was on Prednisone 10mg taper (completed) on discharge as per endodrine- Pt go go home on LT4 225 repeat TFT as an outpt. BGM daily as she has been having bgms <150 Code(s): E03.5 - MYXEDEMA COMA (5) Hypercapnic respiratory failure Assessment/Plan: Intubated on admission, extubated on 09/03/19, now room air Code(s): J96.92 - RESPIRATORY FAILURE, UNSPECIFIED WITH HYPERCAPNIA (6) SOB (shortness of breath) Assessment/Plan: s/p intubation, tolerating room air with stable oxygen saturations. Code(s): R06.02 - SHORTNESS OF BREATH (7) Morbid obesity Assessment/Plan: outpatient follow up as outpatient, dietary following. Code(s): E66.01 - MORBID (SEVERE) OBESITY DUE TO EXCESS CALORIES (8) AMS (altered mental status) Assessment/Plan: see acute metabolic encephalopathy Code(s): R41.82 - ALTERED MENTAL STATUS, UNSPECIFIED (9) Acute renal failure Assessment/Plan: dialysis per renal via shiley av fistula left forearm left arm precautions Code(s): N17.9 - ACUTE KIDNEY FAILURE, UNSPECIFIED (10) Metabolic acidosis Assessment/Plan: completed prednisone taper for possible adrenal insufficiency Code(s): E87.2 - ACIDOSIS (11) Diabetes Assessment/Plan: bgms in am once daily as bgms stable followed by bank secrecy act officer Code(s): E11.9 - TYPE 2 DIABETES MELLITUS WITHOUT COMPLICATIONS (12) Hypothermia Assessment/Plan: resolved Code(s): T68.XXXA - HYPOTHERMIA, INITIAL ENCOUNTER (13) Anemia Assessment/Plan: received 1 PRBC since admission. hmg 8 today, transfuse if <7 Code(s): D64.9 - ANEMIA, UNSPECIFIED Qualifiers: Other causes of anemia: chronic disease, other (14) HLD (hyperlipidemia) Code(s): E78.5 - HYPERLIPIDEMIA, UNSPECIFIED (15) Poor appetite Assessment/Plan: on nepro daily with a multivitamin Code(s): R63.0 - ANOREXIA (16) DVT prophylaxis Assessment/Plan: on heparin bid Code(s): Z29.9 - ENCOUNTER FOR PROPHYLACTIC MEASURES, UNSPECIFIED Visit type - Emergency Visit Emergency Visit: Yes ED Registration Date: 08/25/19 Care time: The patient presented to the Emergency Department on the above date and was hospitalized for further evaluation of their emergent condition. - New Patient This patient is new to me today: No - Critical Care Critical Care patient: No - Discharge Referral Referred to [facility] Med P.C.: No
[2019-10-02] MEDS: ACETAMINOPHEN 325 MG TABLET (FP) PO PRN ×2 (14:21→22:29)
--- NOTE | 2019-10-02 18:22 | PN ---
Progress Note, Physician History of Present Illness: Pt seen and examined at bedside. She is awake and alert. SHe is eager to go home. - Current Medication List Current Medications: Active Medications Acetaminophen (Tylenol -) 650 mg PO Q6H PRN PRN Reason: Fever Or Pain Last Admin: 10/02/19 14:21 Dose: 650 mg Amlodipine Besylate (Norvasc -) 10 mg PO DAILY [facility] Last Admin: 10/02/19 09:49 Dose: 10 mg Atorvastatin Calcium (Lipitor -) 40 mg PO HS [facility] Last Admin: 10/01/19 21:19 Dose: 40 mg Famotidine (Pepcid -) 20 mg PO Q2D [facility] Last Admin: 10/02/19 09:50 Dose: 20 mg Heparin Sodium (Porcine) (Heparin -) 5,000 unit SQ BID [facility] Last Admin: 10/02/19 09:50 Dose: 5,000 unit Insulin Aspart (Novolog Vial Sliding Scale -) 1 vial SQ DAILY@0700 [facility]; Protocol Last Admin: 10/02/19 06:14 Dose: Not Given Labetalol HCl (Normodyne -) 200 mg PO TID [facility] Last Admin: 10/02/19 14:17 Dose: 200 mg Levothyroxine Sodium (Synthroid -) 250 mcg PO DAILY@0700 [facility] Last Admin: 10/02/19 06:13 Dose: 250 mcg Multivit/Ca Carb/B Cmplx/FA/Prenat (Nephro-John -) 1 tablet PO DAILY [facility] Paroxetine HCl (Paxil -) 40 mg PO DAILY [facility] Last Admin: 10/02/19 09:49 Dose: 40 mg - Objective Vital Signs: Vital Signs Temperature 98.1 F 10/02/19 15:35 Pulse Rate 69 10/02/19 15:35 Respiratory Rate 20 10/02/19 15:35 Blood Pressure 147/72 10/02/19 15:35 O2 Sat by Pulse Oximetry (%) 94 L 10/02/19 09:00 Constitutional: Yes: Calm Eyes: Yes: Conjunctiva Clear HENT: Yes: Atraumatic Neck: Yes: Supple Cardiovascular: Yes: S1, S2 Gastrointestinal: Yes: Soft, Abdomen, Obese Genitourinary: Yes: WNL Musculoskeletal: Yes: WNL Extremities: Yes: Other (fistula with thrill and bruit) Edema: No Neurological: Yes: Oriented Psychiatric: Yes: Oriented Labs: CBC, BMP 10/02/19 07:45 10/02/19 07:45 INR, PTT INR 0.99 (0.83-1.09) 09/05/19 13:45 Problem List - Problems (1) AMS (altered mental status) Code(s): R41.82 - ALTERED MENTAL STATUS, UNSPECIFIED (2) Acute metabolic encephalopathy Code(s): G93.41 - METABOLIC ENCEPHALOPATHY (3) Acute renal failure Code(s): N17.9 - ACUTE KIDNEY FAILURE, UNSPECIFIED (4) Diabetes Code(s): E11.9 - TYPE 2 DIABETES MELLITUS WITHOUT COMPLICATIONS (5) Hypercapnic respiratory failure Code(s): J96.92 - RESPIRATORY FAILURE, UNSPECIFIED WITH HYPERCAPNIA (6) Hypothermia Code(s): T68.XXXA - HYPOTHERMIA, INITIAL ENCOUNTER (7) Morbid obesity Code(s): E66.01 - MORBID (SEVERE) OBESITY DUE TO EXCESS CALORIES Assessment/Plan Current Medications Generic Name Dose Route Start Last Admin Trade Name Freq PRN Reason Stop Dose Admin Acetaminophen 650 mg 09/16/19 15:24 10/02/19 14:21 Tylenol - PO 650 mg Q6H PRN Administration Fever Or Pain Amlodipine Besylate 10 mg 09/17/19 10:00 10/02/19 09:49 Norvasc - PO 10 mg DAILY [facility] Administration Atorvastatin Calcium 40 mg 09/16/19 22:00 10/01/19 21:19 Lipitor - PO 40 mg HS [facility] Administration Famotidine 20 mg 09/18/19 10:00 10/02/19 09:50 Pepcid - PO 20 mg Q2D [facility] Administration Heparin Sodium (Porcine) 5,000 unit 09/30/19 22:00 10/02/19 09:50 Heparin - SQ 5,000 unit BID [facility] Administration Insulin Aspart 1 vial 09/20/19 11:06 10/02/19 06:14 Novolog Vial Sliding Scale - SQ Not Given DAILY@0700 [facility] Protocol Labetalol HCl 200 mg 09/16/19 22:00 10/02/19 14:17 Normodyne - PO 200 mg TID [facility] Administration Levothyroxine Sodium 250 mcg 09/27/19 07:00 10/02/19 06:13 Synthroid - PO 250 mcg DAILY@0700 [facility] Administration Multivit/Ca Carb/B Cmplx/FA/Prenat 1 tablet 10/03/19 10:00 Nephro-John - PO DAILY [facility] Paroxetine HCl 40 mg 09/17/19 10:00 10/02/19 09:49 Paxil - PO 40 mg DAILY [facility] Administration Impression 1. LUCY 2. fluid overload 3. acute respiratory failure 4. hypothyroidism with tsh of 100 5. 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 urine tox pos for mdma 7. mild rhabdo 8. hepatitis B Plan - HD tomorrow - still pending placemetn - pt refused kidney biopsy - renal diet - monitor urine output
[2019-10-02] MEDS: ATORVASTATIN CA 40 MG TABLET (FP) PO SCH (21:26)
[2019-10-03] MEDS ORDERED: LABETALOL HCL 100 MG TABLET (FP) ONE ×2 (05:47→21:31)
[2019-10-03] MEDS: INSULIN SLIDING SCALE (NOVOLOG) 1 VIAL SQ SCH (05:59)
[2019-10-03] MEDS: LEVOTHYROXINE NA 125 MCG TABLET (FP) PO SCH (05:59)
[2019-10-03] MEDS: LABETALOL HCL 200 MG TABLET (FP) PO SCH ×3 (05:59→21:45)
[2019-10-03] MEDS ORDERED: SODIUM CHLORIDE 250 ML IV PRN (08:00)
[2019-10-03] MEDS: EPOETIN ALFA 10,000 UNIT/1 ML VIAL IVPUSH ONE ×2 (09:39→10:05)
--- NOTE | 2019-10-03 09:45 | PN ---
Progress Note (short form) - Note Progress Note: NAD on RA. HD Denies shortness of breath, cough or wheezing. No acute events overnight. Intake & Output 09/30/19 10/01/19 10/02/19 10/03/19 23:59 23:59 23:59 23:59 Intake Total 1580 1050 650 700 Output Total 3 Balance 1577 1050 650 700 Last Vital Signs Temp Pulse Resp BP Pulse Ox 98.8 F 84 18 157/84 94 L 10/03/19 07:25 10/03/19 10:00 10/03/19 10:00 10/03/19 10:00 10/02/19 21:00 Active Medications Acetaminophen (Tylenol -) 650 mg PO Q6H PRN PRN Reason: Fever Or Pain Last Admin: 10/02/19 22:29 Dose: 650 mg Amlodipine Besylate (Norvasc -) 10 mg PO DAILY [facility] Last Admin: 10/02/19 09:49 Dose: 10 mg Atorvastatin Calcium (Lipitor -) 40 mg PO HS [facility] Last Admin: 10/02/19 21:26 Dose: 40 mg Famotidine (Pepcid -) 20 mg PO Q2D [facility] Last Admin: 10/02/19 09:50 Dose: 20 mg Heparin Sodium (Porcine) (Heparin -) 5,000 unit SQ BID [facility] Last Admin: 10/02/19 21:27 Dose: 5,000 unit Sodium Chloride (Normal Saline -) 250 mls @ 3,000 mls/hr IV PRN PRN PRN Reason: Hypotension during Dialysis Stop: 10/04/19 07:59 Insulin Aspart (Novolog Vial Sliding Scale -) 1 vial SQ DAILY@0700 [facility]; Protocol Last Admin: 10/03/19 05:59 Dose: Not Given Labetalol HCl (Normodyne -) 200 mg PO TID [facility] Last Admin: 10/03/19 05:59 Dose: 200 mg Levothyroxine Sodium (Synthroid -) 250 mcg PO DAILY@0700 [facility] Last Admin: 10/03/19 05:59 Dose: 250 mcg Multivit/Ca Carb/B Cmplx/FA/Prenat (Nephro-John -) 1 tablet PO DAILY [facility] Paroxetine HCl (Paxil -) 40 mg PO DAILY [facility] Last Admin: 10/02/19 09:49 Dose: 40 mg Gen: NAD at rest Heart: RRR Lung: decreased breath sounds at the bases Abd: soft, nontender Ext: no edema Laboratory Results - last 24 hr 10/03/19 05:42 POC Glucometer 147 A/P Acute Hypercapneic Respiratory Failure improving Myxedema Coma resolved UTI treated Acute Kidney Injury requiring HD Volume Overload improving Pleural Effusions improved COPD DM Anemia - HD per renal - completed antibiotics - synthroid - inhaled bronchodilators - O2 to keep SpO2 >90% - PO as tolerated - DVT prophylaxis - DC planning in progress Dr Alonso
--- NOTE | 2019-10-03 10:09 | PN ---
Progress Note, Physician History of Present Illness: stable no new issues - Current Medication List Current Medications: Active Medications Acetaminophen (Tylenol -) 650 mg PO Q6H PRN PRN Reason: Fever Or Pain Last Admin: 10/02/19 22:29 Dose: 650 mg Amlodipine Besylate (Norvasc -) 10 mg PO DAILY [facility] Last Admin: 10/02/19 09:49 Dose: 10 mg Atorvastatin Calcium (Lipitor -) 40 mg PO HS [facility] Last Admin: 10/02/19 21:26 Dose: 40 mg Famotidine (Pepcid -) 20 mg PO Q2D [facility] Last Admin: 10/02/19 09:50 Dose: 20 mg Heparin Sodium (Porcine) (Heparin -) 5,000 unit SQ BID [facility] Last Admin: 10/02/19 21:27 Dose: 5,000 unit Sodium Chloride (Normal Saline -) 250 mls @ 3,000 mls/hr IV PRN PRN PRN Reason: Hypotension during Dialysis Stop: 10/04/19 07:59 Insulin Aspart (Novolog Vial Sliding Scale -) 1 vial SQ DAILY@0700 [facility]; Protocol Last Admin: 10/03/19 05:59 Dose: Not Given Labetalol HCl (Normodyne -) 200 mg PO TID [facility] Last Admin: 10/03/19 05:59 Dose: 200 mg Levothyroxine Sodium (Synthroid -) 250 mcg PO DAILY@0700 [facility] Last Admin: 10/03/19 05:59 Dose: 250 mcg Multivit/Ca Carb/B Cmplx/FA/Prenat (Nephro-John -) 1 tablet PO DAILY [facility] Paroxetine HCl (Paxil -) 40 mg PO DAILY [facility] Last Admin: 10/02/19 09:49 Dose: 40 mg - Objective Vital Signs: Vital Signs Temperature 98.8 F 10/03/19 07:25 Pulse Rate 84 10/03/19 10:00 Respiratory Rate 18 10/03/19 10:00 Blood Pressure 157/84 10/03/19 10:00 O2 Sat by Pulse Oximetry (%) 94 L 10/02/19 21:00 Constitutional: Yes: No Distress, Calm Cardiovascular: Yes: S1, S2 Respiratory: Yes: Regular, CTA Bilaterally Gastrointestinal: Yes: Normal Bowel Sounds, Soft Musculoskeletal: Yes: WNL Extremities: Yes: WNL Neurological: Yes: Alert, Oriented Psychiatric: Yes: Alert, Oriented Labs: INR, PTT INR 0.99 (0.83-1.09) 09/05/19 13:45 Assessment/Plan Problem List - Problems (1) LUCY (acute kidney injury) Code(s): N17.9 - ACUTE KIDNEY FAILURE, UNSPECIFIED (2) AMS (altered mental status) Code(s): R41.82 - ALTERED MENTAL STATUS, UNSPECIFIED (3) Acute metabolic encephalopathy Code(s): G93.41 - METABOLIC ENCEPHALOPATHY (4) Acute respiratory failure Code(s): J96.00 - ACUTE RESPIRATORY FAILURE, UNSP W HYPOXIA OR HYPERCAPNIA (5) Anemia Code(s): D64.9 - ANEMIA, UNSPECIFIED (6) COPD (chronic obstructive pulmonary disease) Code(s): J44.9 - CHRONIC OBSTRUCTIVE PULMONARY DISEASE, UNSPECIFIED (7) Diabetes Code(s): E11.9 - TYPE 2 DIABETES MELLITUS WITHOUT COMPLICATIONS (8) HTN (hypertension) Code(s): I10 - ESSENTIAL (PRIMARY) HYPERTENSION (9) Hypercapnic respiratory failure Code(s): J96.92 - RESPIRATORY FAILURE, UNSPECIFIED WITH HYPERCAPNIA (10) Hypothermia Code(s): T68.XXXA - HYPOTHERMIA, INITIAL ENCOUNTER (11) Morbid obesity Code(s): E66.01 - MORBID (SEVERE) OBESITY DUE TO EXCESS CALORIES (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 physio
[2019-10-03 10:15] LABS: BASO % 0.5 % (0-2.0); HEMOGLOBIN 7.6 GM/dL (10.7-15.3); LYMPH % 47.1 % (8-40); MCH 30.1 pg (25.7-33.7); MCHC 34.5 g/dl (32.0-36.0); MEAN CELL VOLUME 87.3 fl (80-96); MEAN PLT VOLUME 7.9 fl (7.5-11.1); MONO % 5.4 % (3.8-10.2); PLATELET COUNT 292 K/MM3 (134-434); RBC 2.52 M/mm3 (3.60-5.2); RDW 15.7 % (11.6-15.6); WHITE BLOOD COUNT 5.9 K/mm3 (4.0-10.0)
[2019-10-03 10:33] LABS: ALBUMIN 2.7 g/dl (3.4-5.0); BILIRUBIN,TOTAL 0.9 mg/dL (0.2-1); BLOOD UREA NITROGEN 24.2 mg/dL (7-18); CREATININE 4.4 mg/dL (0.55-1.3); MAGNESIUM 1.5 mg/dL (1.8-2.4); POTASSIUM 3.8 mmol/L (3.5-5.1); TOT PROT 6.4 g/dl (6.4-8.2)
--- NOTE | 2019-10-03 10:34 | PN ---
Physical Exam: SUBJECTIVE: Patient seen and examined at the bedside. getting dialysis. asking about discharge plan. OBJECTIVE: Patient is a 54 year old female with a significant past medical history of hypertension, hyperlipidemia, diabetes, COPD, anemia, thyroid cancer 6 years ago (no prior admission to [facility]). Patient brought into the ED for altered mental status, acute shortness of breath, metabolic acidosis. She was found to have an elevated TSH, low t4 and hypothermic ([id number] mariana hugger). on admission had renal failure with a creat of 7.7, bun of 65, mag 1.6, elevated ast/alt and now on dialysis. She is pending outpatient dialysis center acceptance as she is hep b+ and will need isolation. Patient will need a bariatric rollator with a seat for her unsteady gait. A rollator would benefit patient for ambulatory support as she is high fall risk and requires help with balance and often experiences fatigue with ambulation. Vital Signs Period Temp Pulse Resp BP Sys/Amos Pulse Ox Last 24 Hr 97.9 F-98.8 F 65-84 18-20 119-157/59-84 94 GENERAL: The patient is awake, alert and in no acute distress. HEAD: Normal with no signs of trauma. EYES: PERRL, extraocular movements intact, sclera anicteric, conjunctiva clear. No ptosis. ENT: Ears normal, nares patent, oropharynx clear without exudates, moist mucous membranes. NECK: Trachea midline, full range of motion, supple. LUNGS: left lower lobe w/fine crackle at base, right lung clear. tolerating room air with stable oxygen sats HEART: Regular rate and rhythm ABDOMEN: Soft, nontender, nondistended, normoactive bowel sounds, no guarding EXTREMITIES: no edema NEUROLOGICAL: awake, alert PSYCH: Normal mood, normal affect. SKIN: Warm, dry, normal turgor, no rashes or lesions noted Laboratory Results - last 24 hr 10/03/19 10/03/19 05:42 07:30 WBC 5.9 RBC 2.52 L Hgb 7.6 L Hct 22.0 L MCV 87.3 MCH 30.1 MCHC 34.5 RDW 15.7 H Plt Count 292 MPV 7.9 Absolute Neuts (auto) 2.8 Neutrophils % 47.0 Lymphocytes % 47.1 H Monocytes % 5.4 Eosinophils % 0.0 Basophils % 0.5 Nucleated RBC % 0 POC Glucometer 147 Active Medications Generic Name Dose Route Start Last Admin Trade Name Juan Daniel PRN Reason Stop Dose Admin Acetaminophen 650 mg 09/16/19 15:24 10/02/19 22:29 Tylenol - PO 650 mg Q6H PRN Administration Fever Or Pain Amlodipine Besylate 10 mg 09/17/19 10:00 10/02/19 09:49 Norvasc - PO 10 mg DAILY [facility] Administration Atorvastatin Calcium 40 mg 09/16/19 22:00 10/02/19 21:26 Lipitor - PO 40 mg HS ZOE Administration Famotidine 20 mg 09/18/19 10:00 10/02/19 09:50 Pepcid - PO 20 mg Q2D ZOE Administration Heparin Sodium (Porcine) 5,000 unit 09/30/19 22:00 10/02/19 21:27 Heparin - SQ 5,000 unit BID ZOE Administration Sodium Chloride 250 mls @ 3,000 mls/hr 10/03/19 08:00 Normal Saline - IV 10/04/19 07:59 PRN PRN Hypotension during Dialysis Insulin Aspart 1 vial 09/20/19 11:06 10/03/19 05:59 Novolog Vial Sliding Scale - SQ Not Given DAILY@0700 [facility] Protocol Labetalol HCl 200 mg 09/16/19 22:00 10/03/19 05:59 Normodyne - PO 200 mg TID [facility]OE Administration Levothyroxine Sodium 250 mcg 09/27/19 07:00 10/03/19 05:59 Synthroid - PO 250 mcg DAILY@0700 [facility] Administration Multivit/Ca Carb/B Cmplx/FA/Prenat 1 tablet 10/03/19 10:00 Nephro-John - PO DAILY [facility] Paroxetine HCl 40 mg 09/17/19 10:00 10/02/19 09:49 Paxil - PO 40 mg DAILY [facility] Administration ASSESSMENT/PLAN: Problem List - Problems (1) Fever and chills Assessment/Plan: resolved. blood cultures negative lactic acid within normal limits monitor off antibiotics per ID Code(s): R50.9 - FEVER, UNSPECIFIED (2) AV fistula Assessment/Plan: s/p AV Fistula +bruit, thrill+ left arm precautions Code(s): I77.0 - ARTERIOVENOUS FISTULA, ACQUIRED (3) Acute metabolic encephalopathy Assessment/Plan: resolved. patient deemed safe to make her own medical decisions by psyche. Code(s): G93.41 - METABOLIC ENCEPHALOPATHY (4) Myxedema coma Assessment/Plan: resolved. being followed by junior database administrator was on Prednisone 10mg taper (completed) on discharge as per endodrine- Pt go go home on LT4 225 repeat TFT as an outpt. BGM daily as she has been having bgms <150 Code(s): E03.5 - MYXEDEMA COMA (5) Hypercapnic respiratory failure Assessment/Plan: Intubated on admission, extubated on 09/03/19, now room air Code(s): J96.92 - RESPIRATORY FAILURE, UNSPECIFIED WITH HYPERCAPNIA (6) SOB (shortness of breath) Assessment/Plan: s/p intubation, tolerating room air with stable oxygen saturations. Code(s): R06.02 - SHORTNESS OF BREATH (7) Morbid obesity Assessment/Plan: outpatient follow up as outpatient, dietary following. Code(s): E66.01 - MORBID (SEVERE) OBESITY DUE TO EXCESS CALORIES (8) AMS (altered mental status) Assessment/Plan: see acute metabolic encephalopathy Code(s): R41.82 - ALTERED MENTAL STATUS, UNSPECIFIED (9) Acute renal failure Assessment/Plan: dialysis per renal via shiley av fistula left forearm left arm precautions Code(s): N17.9 - ACUTE KIDNEY FAILURE, UNSPECIFIED (10) Metabolic acidosis Assessment/Plan: completed prednisone taper for possible adrenal insufficiency Code(s): E87.2 - ACIDOSIS (11) Diabetes Assessment/Plan: bgms in am once daily as bgms stable followed by junior database administrator Code(s): E11.9 - TYPE 2 DIABETES MELLITUS WITHOUT COMPLICATIONS (12) Hypothermia Assessment/Plan: resolved Code(s): T68.XXXA - HYPOTHERMIA, INITIAL ENCOUNTER (13) Anemia Assessment/Plan: received 1 PRBC since admission. hmg 8 today, transfuse if <7 Code(s): D64.9 - ANEMIA, UNSPECIFIED Qualifiers: Other causes of anemia: chronic disease, other (14) HLD (hyperlipidemia) Code(s): E78.5 - HYPERLIPIDEMIA, UNSPECIFIED (15) Poor appetite Assessment/Plan: on nepro daily with a multivitamin Code(s): R63.0 - ANOREXIA (16) Risk for falls Assessment/Plan: rollator would be of benefit. fall risk precautions. Code(s): Z91.81 - HISTORY OF FALLING (17) DVT prophylaxis Assessment/Plan: on heparin bid Code(s): Z29.9 - ENCOUNTER FOR PROPHYLACTIC MEASURES, UNSPECIFIED Visit type - Emergency Visit Emergency Visit: Yes ED Registration Date: 08/25/19 Care time: The patient presented to the Emergency Department on the above date and was hospitalized for further evaluation of their emergent condition. - New Patient This patient is new to me today: No - Critical Care Critical Care patient: No - Discharge Referral Referred to [facility] No
[2019-10-03] MEDS: HEPARIN NA (PORCINE) 5,000 UNITS/ML 1ML VIAL SQ SCH ×2 (10:56→21:46)
[2019-10-03] MEDS: amLODIPine BESYLATE 10 MG TABLET (FP) PO SCH (10:56)
[2019-10-03] MEDS: PARoxetine HCL 20 MG TABLET PO SCH (10:56)
[2019-10-03] MEDS: VITAMIN B COMP W-C 1 EA TABLET PO SCH (10:56)
[2019-10-03] MEDS: ACETAMINOPHEN 325 MG TABLET (FP) PO PRN (14:02)
--- NOTE | 2019-10-03 19:13 | PN ---
Progress Note, Physician History of Present Illness: Pt seen and examined at bedside. SHe is awake and alert. She is eager to go home. - Current Medication List Current Medications: Active Medications Acetaminophen (Tylenol -) 650 mg PO Q6H PRN PRN Reason: Fever Or Pain Last Admin: 10/03/19 14:02 Dose: 650 mg Amlodipine Besylate (Norvasc -) 10 mg PO DAILY [facility] Last Admin: 10/03/19 10:56 Dose: 10 mg Atorvastatin Calcium (Lipitor -) 40 mg PO HS [facility] Last Admin: 10/02/19 21:26 Dose: 40 mg Famotidine (Pepcid -) 20 mg PO Q2D [facility] Last Admin: 10/02/19 09:50 Dose: 20 mg Heparin Sodium (Porcine) (Heparin -) 5,000 unit SQ BID [facility] Last Admin: 10/03/19 10:56 Dose: 5,000 unit Sodium Chloride (Normal Saline -) 250 mls @ 3,000 mls/hr IV PRN PRN PRN Reason: Hypotension during Dialysis Stop: 10/04/19 07:59 Insulin Aspart (Novolog Vial Sliding Scale -) 1 vial SQ DAILY@0700 [facility]; Protocol Last Admin: 10/03/19 05:59 Dose: Not Given Labetalol HCl (Normodyne -) 200 mg PO TID [facility] Last Admin: 10/03/19 14:02 Dose: 200 mg Levothyroxine Sodium (Synthroid -) 250 mcg PO DAILY@0700 [facility] Last Admin: 10/03/19 05:59 Dose: 250 mcg Multivit/Ca Carb/B Cmplx/FA/Prenat (Nephro-John -) 1 tablet PO DAILY [facility] Last Admin: 10/03/19 10:56 Dose: 1 tablet Paroxetine HCl (Paxil -) 40 mg PO DAILY [facility] Last Admin: 10/03/19 10:56 Dose: 40 mg - Objective Vital Signs: Vital Signs Temperature 98.0 F 10/03/19 13:55 Pulse Rate 79 10/03/19 13:55 Respiratory Rate 20 10/03/19 13:55 Blood Pressure 147/66 10/03/19 13:55 O2 Sat by Pulse Oximetry (%) 95 10/03/19 10:00 Constitutional: Yes: Calm Eyes: Yes: Conjunctiva Clear HENT: Yes: Atraumatic Cardiovascular: Yes: S1, S2 Respiratory: Yes: CTA Bilaterally Gastrointestinal: Yes: Normal Bowel Sounds, Soft Genitourinary: Yes: WNL Musculoskeletal: Yes: WNL Edema: No Integumentary: Yes: Tattoos Neurological: Yes: Oriented Labs: CBC, BMP 10/03/19 07:30 10/03/19 07:30 INR, PTT INR 0.99 (0.83-1.09) 09/05/19 13:45 Problem List - Problems (1) AMS (altered mental status) Code(s): R41.82 - ALTERED MENTAL STATUS, UNSPECIFIED (2) Acute metabolic encephalopathy Code(s): G93.41 - METABOLIC ENCEPHALOPATHY (3) Acute renal failure Code(s): N17.9 - ACUTE KIDNEY FAILURE, UNSPECIFIED (4) Diabetes Code(s): E11.9 - TYPE 2 DIABETES MELLITUS WITHOUT COMPLICATIONS (5) Hypercapnic respiratory failure Code(s): J96.92 - RESPIRATORY FAILURE, UNSPECIFIED WITH HYPERCAPNIA (6) Hypothermia Code(s): T68.XXXA - HYPOTHERMIA, INITIAL ENCOUNTER (7) Morbid obesity Code(s): E66.01 - MORBID (SEVERE) OBESITY DUE TO EXCESS CALORIES Assessment/Plan Current Medications Generic Name Dose Route Start Last Admin Trade Name Freq PRN Reason Stop Dose Admin Acetaminophen 650 mg 09/16/19 15:24 10/03/19 14:02 Tylenol - PO 650 mg Q6H PRN Administration Fever Or Pain Amlodipine Besylate 10 mg 09/17/19 10:00 10/03/19 10:56 Norvasc - PO 10 mg DAILY [facility] Administration Atorvastatin Calcium 40 mg 09/16/19 22:00 10/02/19 21:26 Lipitor - PO 40 mg HS [facility] Administration Famotidine 20 mg 09/18/19 10:00 10/02/19 09:50 Pepcid - PO 20 mg Q2D [facility] Administration Heparin Sodium (Porcine) 5,000 unit 09/30/19 22:00 10/03/19 10:56 Heparin - SQ 5,000 unit BID [facility] Administration Sodium Chloride 250 mls @ 3,000 mls/hr 10/03/19 08:00 Normal Saline - IV 10/04/19 07:59 PRN PRN Hypotension during Dialysis Insulin Aspart 1 vial 09/20/19 11:06 10/03/19 05:59 Novolog Vial Sliding Scale - SQ Not Given DAILY@0700 [facility] Protocol Labetalol HCl 200 mg 09/16/19 22:00 10/03/19 14:02 Normodyne - PO 200 mg TID [facility] Administration Levothyroxine Sodium 250 mcg 09/27/19 07:00 10/03/19 05:59 Synthroid - PO 250 mcg DAILY@0700 [facility] Administration Multivit/Ca Carb/B Cmplx/FA/Prenat 1 tablet 10/03/19 10:00 10/03/19 10:56 Nephro-John - PO 1 tablet DAILY [facility] Administration Paroxetine HCl 40 mg 09/17/19 10:00 10/03/19 10:56 Paxil - PO 40 mg DAILY [facility] Administration Impression 1. LUCY 2. fluid overload 3. acute respiratory failure 4. hypothyroidism with tsh of 100 5. 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 urine tox pos for mdma 7. mild rhabdo 8. hepatitis B Plan - HD today - pending placement, discussed with case management - pt refused kidney biopsy - renal diet
[2019-10-03 21:07] LABS: HEP B CORE AB, TOT Positive (Negative)
[2019-10-03] MEDS: ATORVASTATIN CA 40 MG TABLET (FP) PO SCH (21:46)
[2019-10-04] MEDS ORDERED: LABETALOL HCL 100 MG TABLET (FP) ONE ×2 (05:57→14:19)
[2019-10-04] MEDS: LEVOTHYROXINE NA 125 MCG TABLET (FP) PO SCH (06:10)
[2019-10-04] MEDS: LABETALOL HCL 200 MG TABLET (FP) PO SCH ×2 (06:10→14:36)
[2019-10-04] MEDS: INSULIN SLIDING SCALE (NOVOLOG) 1 VIAL SQ SCH (06:11)
[2019-10-04 08:03] LABS: BASO % 0.5 % (0-2.0); HEMATOCRIT 23.4 % (32.4-45.2); LYMPH % 35.7 % (8-40); MCHC 34.1 g/dl (32.0-36.0); MEAN PLT VOLUME 7.9 fl (7.5-11.1); NEUT % 58.8 % (42.8-82.8); PLATELET COUNT 298 K/MM3 (134-434); RBC 2.66 M/mm3 (3.60-5.2); RDW 15.4 % (11.6-15.6)
[2019-10-04 08:47] LABS: ALBUMIN 2.7 g/dl (3.4-5.0); BILIRUBIN,TOTAL 0.4 mg/dL (0.2-1); BLOOD UREA NITROGEN 18.5 mg/dL (7-18); CALCIUM 8.4 mg/dL (8.5-10.1); CREATININE 3.4 mg/dL (0.55-1.3); MAGNESIUM 1.7 mg/dL (1.8-2.4); POTASSIUM 3.8 mmol/L (3.5-5.1); TOT PROT 6.5 g/dl (6.4-8.2)
[2019-10-04] MEDS: VITAMIN B COMP W-C 1 EA TABLET PO SCH (09:51)
[2019-10-04] MEDS: PARoxetine HCL 20 MG TABLET PO SCH (09:51)
[2019-10-04] MEDS: HEPARIN NA (PORCINE) 5,000 UNITS/ML 1ML VIAL SQ SCH (09:52)
[2019-10-04] MEDS: amLODIPine BESYLATE 10 MG TABLET (FP) PO SCH (09:52)
[2019-10-04] MEDS: FAMOTIDINE 20 MG TABLET PO SCH (09:52)
[2019-10-04] MEDS ORDERED: ALBUTEROL SO4 2.5/IPRATROPIUM 0.5 INH SOL 3 ML VIAL.NEB. NEB PRN (10:28)
--- NOTE | 2019-10-04 11:06 | PN ---
Progress Note (short form) - Note Progress Note: I an nervous about whats going to happen to me and where I am going to go. I want to talk to some one. i had a therapist at [facility]. REC; Refer to Dr. Clifford Benitez Psychologist for supportive therapy.
--- NOTE | 2019-10-04 11:12 | PN ---
Physical Exam: SUBJECTIVE: Patient seen and examined OBJECTIVE: Vital Signs Period Temp Pulse Resp BP Sys/Amos Pulse Ox Last 24 Hr 98.0 F-98.1 F 75-83 20-84 133-147/64-84 95-95 GENERAL: The patient is awake, alert, and fully oriented, in no acute distress. HEAD: Normal with no signs of trauma. EYES: PERRL, extraocular movements intact, sclera anicteric, conjunctiva clear. No ptosis. ENT: Ears normal, nares patent, oropharynx clear without exudates, moist mucous membranes. NECK: Trachea midline, full range of motion, supple. LUNGS: Breath sounds equal, clear to auscultation bilaterally, no wheezes, no crackles, no accessory muscle use. HEART: Regular rate and rhythm, S1, S2 without murmur, rub or gallop. ABDOMEN: Soft, nontender, nondistended, normoactive bowel sounds, no guarding, no rebound, no hepatosplenomegaly, no masses. EXTREMITIES: 2+ pulses, warm, well-perfused, no edema. NEUROLOGICAL: Cranial nerves II through XII grossly intact. Normal speech, gait not observed. PSYCH: Normal mood, normal affect. SKIN: Warm, dry, normal turgor, no rashes or lesions noted Laboratory Results - last 24 hr 10/02/19 10/03/19 10/04/19 07:45 07:30 05:59 WBC RBC Hgb Hct MCV MCH MCHC RDW Plt Count MPV Absolute Neuts (auto) Neutrophils % Lymphocytes % Monocytes % Eosinophils % Basophils % Nucleated RBC % Sodium Potassium Chloride Carbon Dioxide Anion Gap BUN Creatinine Est GFR (CKD-EPI)AfAm Est GFR (CKD-EPI)NonAf POC Glucometer 153 Random Glucose Calcium Magnesium Total Bilirubin AST ALT Alkaline Phosphatase Total Protein Albumin Hep A IgM Ab Confirm Negative Hepatitis A Ab Total Negative Hep Bs Antigen Positive H Hep Bs Antibody Reactive Hep B Core Total Ab Positive H Hep B Core IgM Ab Negative Hepatitis Be Antibody Negative Hepatitis Be Antigen Positive H Blood Type O POSITIVE Antibody Screen Negative 10/04/19 10/04/19 06:35 06:35 WBC 7.0 RBC 2.66 L Hgb 8.0 L Hct 23.4 L MCV 88.0 MCH 30.0 MCHC 34.1 RDW 15.4 Plt Count 298 MPV 7.9 Absolute Neuts (auto) 4.1 Neutrophils % 58.8 D Lymphocytes % 35.7 D Monocytes % 5.0 Eosinophils % 0.0 Basophils % 0.5 Nucleated RBC % 0 Sodium 135 L Potassium 3.8 Chloride 100 Carbon Dioxide 30 Anion Gap 5 L BUN 18.5 H Creatinine 3.4 H Est GFR (CKD-EPI)AfAm 17.08 Est GFR (CKD-EPI)NonAf 14.74 POC Glucometer Random Glucose 147 H Calcium 8.4 L Magnesium 1.7 L Total Bilirubin 0.4 AST 19 ALT 22 Alkaline Phosphatase 240 H Total Protein 6.5 Albumin 2.7 L Hep A IgM Ab Confirm Hepatitis A Ab Total Hep Bs Antigen Hep Bs Antibody Hep B Core Total Ab Hep B Core IgM Ab Hepatitis Be Antibody Hepatitis Be Antigen Blood Type Antibody Screen Active Medications Generic Name Dose Route Start Last Admin Trade Name Freq PRN Reason Stop Dose Admin Acetaminophen 650 mg 09/16/19 15:24 10/03/19 14:02 Tylenol - PO 650 mg Q6H PRN Administration Fever Or Pain Albuterol/Ipratropium 1 amp 10/04/19 10:28 Duoneb - NEB Q6H PRN SHORTNESS OF BREATH Amlodipine Besylate 10 mg 09/17/19 10:00 10/04/19 09:52 Norvasc - PO 10 mg DAILY [facility] Administration Atorvastatin Calcium 40 mg 09/16/19 22:00 10/03/19 21:46 Lipitor - PO 40 mg HS [facility] Administration Famotidine 20 mg 09/18/19 10:00 10/04/19 09:52 Pepcid - PO 20 mg Q2D [facility] Administration Heparin Sodium (Porcine) 5,000 unit 09/30/19 22:00 10/04/19 09:52 Heparin - SQ 5,000 unit BID [facility] Administration Insulin Aspart 1 vial 09/20/19 11:06 10/04/19 06:11 Novolog Vial Sliding Scale - SQ 2 units DAILY@0700 [facility] Administration Protocol Labetalol HCl 200 mg 09/16/19 22:00 10/04/19 06:10 Normodyne - PO 200 mg TID [facility] Administration Levothyroxine Sodium 250 mcg 09/27/19 07:00 10/04/19 06:10 Synthroid - PO 250 mcg DAILY@0700 [facility] Administration Multivit/Ca Carb/B Cmplx/FA/Prenat 1 tablet 10/03/19 10:00 10/04/19 09:51 Nephro-John - PO 1 tablet DAILY [facility] Administration Paroxetine HCl 40 mg 09/17/19 10:00 10/04/19 09:51 Paxil - PO 40 mg DAILY [facility] Administration ASSESSMENT/PLAN: Problem List - Problems (1) Fever and chills Code(s): R50.9 - FEVER, UNSPECIFIED (2) AV fistula Code(s): I77.0 - ARTERIOVENOUS FISTULA, ACQUIRED (3) Acute metabolic encephalopathy Code(s): G93.41 - METABOLIC ENCEPHALOPATHY (4) 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 - MYXEDEMA COMA (5) Hypercapnic respiratory failure Code(s): J96.92 - RESPIRATORY FAILURE, UNSPECIFIED WITH HYPERCAPNIA (6) SOB (shortness of breath) Code(s): R06.02 - SHORTNESS OF BREATH (7) Morbid obesity Code(s): E66.01 - MORBID (SEVERE) OBESITY DUE TO EXCESS CALORIES (8) AMS (altered mental status) Code(s): R41.82 - ALTERED MENTAL STATUS, UNSPECIFIED (9) Acute renal failure Code(s): N17.9 - ACUTE KIDNEY FAILURE, UNSPECIFIED (10) Metabolic acidosis Code(s): E87.2 - ACIDOSIS (11) Diabetes Code(s): E11.9 - TYPE 2 DIABETES MELLITUS WITHOUT COMPLICATIONS (12) Hypothermia Code(s): T68.XXXA - HYPOTHERMIA, INITIAL ENCOUNTER (13) Anemia Code(s): D64.9 - ANEMIA, UNSPECIFIED Qualifiers: Other causes of anemia: chronic disease, other (14) HLD (hyperlipidemia) Code(s): E78.5 - HYPERLIPIDEMIA, UNSPECIFIED (15) Poor appetite Code(s): R63.0 - ANOREXIA (16) Risk for falls Code(s): Z91.81 - HISTORY OF FALLING (17) DVT prophylaxis Code(s): Z29.9 - ENCOUNTER FOR PROPHYLACTIC MEASURES, UNSPECIFIED
--- NOTE | 2019-10-04 11:22 | PN ---
Progress Note, Physician History of Present Illness: stable had some chest pain now doing better after treatments - Current Medication List Current Medications: Active Medications Acetaminophen (Tylenol -) 650 mg PO Q6H PRN PRN Reason: Fever Or Pain Last Admin: 10/03/19 14:02 Dose: 650 mg Albuterol/Ipratropium (Duoneb -) 1 amp NEB Q6H PRN PRN Reason: SHORTNESS OF BREATH Amlodipine Besylate (Norvasc -) 10 mg PO DAILY [facility] Last Admin: 10/04/19 09:52 Dose: 10 mg Atorvastatin Calcium (Lipitor -) 40 mg PO HS [facility] Last Admin: 10/03/19 21:46 Dose: 40 mg Famotidine (Pepcid -) 20 mg PO Q2D [facility] Last Admin: 10/04/19 09:52 Dose: 20 mg Heparin Sodium (Porcine) (Heparin -) 5,000 unit SQ BID [facility] Last Admin: 10/04/19 09:52 Dose: 5,000 unit Insulin Aspart (Novolog Vial Sliding Scale -) 1 vial SQ DAILY@0700 [facility]; Protocol Last Admin: 10/04/19 06:11 Dose: 2 units Labetalol HCl (Normodyne -) 200 mg PO TID [facility] Last Admin: 10/04/19 06:10 Dose: 200 mg Levothyroxine Sodium (Synthroid -) 250 mcg PO DAILY@0700 [facility] Last Admin: 10/04/19 06:10 Dose: 250 mcg Multivit/Ca Carb/B Cmplx/FA/Prenat (Nephro-John -) 1 tablet PO DAILY [facility] Last Admin: 10/04/19 09:51 Dose: 1 tablet Paroxetine HCl (Paxil -) 40 mg PO DAILY [facility] Last Admin: 10/04/19 09:51 Dose: 40 mg - Objective Vital Signs: Vital Signs Temperature 98.0 F 10/04/19 06:41 Pulse Rate 75 10/04/19 06:41 Respiratory Rate 84 H 10/04/19 06:41 Blood Pressure 135/84 10/04/19 06:41 O2 Sat by Pulse Oximetry (%) 95 10/04/19 09:00 Constitutional: Yes: No Distress, Calm Cardiovascular: Yes: S1, S2 Respiratory: Yes: Regular, CTA Bilaterally Gastrointestinal: Yes: Normal Bowel Sounds, Soft Musculoskeletal: Yes: WNL Extremities: Yes: WNL Labs: CBC, BMP 10/04/19 06:35 10/04/19 06:35 INR, PTT INR 0.99 (0.83-1.09) 09/05/19 13:45 Assessment/Plan Problem List - Problems (1) LUCY (acute kidney injury) Code(s): N17.9 - ACUTE KIDNEY FAILURE, UNSPECIFIED (2) AMS (altered mental status) Code(s): R41.82 - ALTERED MENTAL STATUS, UNSPECIFIED (3) Acute metabolic encephalopathy Code(s): G93.41 - METABOLIC ENCEPHALOPATHY (4) Acute respiratory failure Code(s): J96.00 - ACUTE RESPIRATORY FAILURE, UNSP W HYPOXIA OR HYPERCAPNIA (5) Anemia Code(s): D64.9 - ANEMIA, UNSPECIFIED (6) COPD (chronic obstructive pulmonary disease) Code(s): J44.9 - CHRONIC OBSTRUCTIVE PULMONARY DISEASE, UNSPECIFIED (7) Diabetes Code(s): E11.9 - TYPE 2 DIABETES MELLITUS WITHOUT COMPLICATIONS (8) HTN (hypertension) Code(s): I10 - ESSENTIAL (PRIMARY) HYPERTENSION (9) Hypercapnic respiratory failure Code(s): J96.92 - RESPIRATORY FAILURE, UNSPECIFIED WITH HYPERCAPNIA (10) Hypothermia Code(s): T68.XXXA - HYPOTHERMIA, INITIAL ENCOUNTER (11) Morbid obesity Code(s): E66.01 - MORBID (SEVERE) OBESITY DUE TO EXCESS CALORIES (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 physio
--- NOTE | 2019-10-04 11:57 | DS ---
Physical Exam: SUBJECTIVE: Patient seen and examined at the bedside. felt short of breath this morning, now resolved. OBJECTIVE: Patient is a 54 year old female with a significant past medical history of hypertension, hyperlipidemia, diabetes, COPD, anemia, thyroid cancer 6 years ago (no prior admission to [facility]). Patient brought into the ED for altered mental status, acute shortness of breath, metabolic acidosis. In the ED she was placed on bipap pressure support for respiratory acidosis with a ph of 7.07,co2 64. Patient being admitted for myxedema coma, acute renal failure, acute metabolic encephalopathy, metabolic acidosis, hypercapneic respiratory failure. She was intubated on admission to protect airway and was extubated on 09/03/2019. She was found to have an elevated TSH, low t4 with hypothermia. on admission had renal failure with a creat of 7.7, bun of 65, mag 1.6, elevated ast/alt and now on dialysis on a MWF schedule. She had an AV fistula placed on the left forearm on 09/16/2019 but is currently receiving dialysis via right shiley catheter that was placed on 09/05/2029. Her last dialysis was on 10/03/2019 inpatient. She is pending outpatient dialysis center acceptance as she is hep b+ and will need isolation. SEE PROBLEM LIST BELOW: Vital Signs Period Temp Pulse Resp BP Sys/Amos Pulse Ox Last 24 Hr 98.0 F-98.1 F 75-83 20-84 133-147/64-84 95-95 PHYSICAL EXAM GENERAL: The patient is awake, alert and in no acute distress. HEAD: Normal with no signs of trauma. EYES: PERRL, extraocular movements intact, sclera anicteric, conjunctiva clear. No ptosis. ENT: Ears normal, nares patent, oropharynx clear without exudates, moist mucous membranes. NECK: Trachea midline, full range of motion, supple. LUNGS: left lower lobe w/fine crackle at base, right lung clear. tolerating room air with stable oxygen sats HEART: Regular rate and rhythm ABDOMEN: Soft, nontender, nondistended, normoactive bowel sounds, no guarding EXTREMITIES: no edema NEUROLOGICAL: awake, alert PSYCH: Normal mood, normal affect. SKIN: Warm, dry, normal turgor, no rashes or lesions noted LABS Laboratory Results - last 24 hr 10/02/19 10/03/19 10/04/19 07:45 07:30 05:59 WBC RBC Hgb Hct MCV MCH MCHC RDW Plt Count MPV Absolute Neuts (auto) Neutrophils % Lymphocytes % Monocytes % Eosinophils % Basophils % Nucleated RBC % Sodium Potassium Chloride Carbon Dioxide Anion Gap BUN Creatinine Est GFR (CKD-EPI)AfAm Est GFR (CKD-EPI)NonAf POC Glucometer 153 Random Glucose Calcium Magnesium Total Bilirubin AST ALT Alkaline Phosphatase Total Protein Albumin Hep A IgM Ab Confirm Negative Hepatitis A Ab Total Negative Hep Bs Antigen Positive H Hep Bs Antibody Reactive Hep B Core Total Ab Positive H Hep B Core IgM Ab Negative Hepatitis Be Antibody Negative Hepatitis Be Antigen Positive H Blood Type O POSITIVE Antibody Screen Negative 10/04/19 10/04/19 06:35 06:35 WBC 7.0 RBC 2.66 L Hgb 8.0 L Hct 23.4 L MCV 88.0 MCH 30.0 MCHC 34.1 RDW 15.4 Plt Count 298 MPV 7.9 Absolute Neuts (auto) 4.1 Neutrophils % 58.8 D Lymphocytes % 35.7 D Monocytes % 5.0 Eosinophils % 0.0 Basophils % 0.5 Nucleated RBC % 0 Sodium 135 L Potassium 3.8 Chloride 100 Carbon Dioxide 30 Anion Gap 5 L BUN 18.5 H Creatinine 3.4 H Est GFR (CKD-EPI)AfAm 17.08 Est GFR (CKD-EPI)NonAf 14.74 POC Glucometer Random Glucose 147 H Calcium 8.4 L Magnesium 1.7 L Total Bilirubin 0.4 AST 19 ALT 22 Alkaline Phosphatase 240 H Total Protein 6.5 Albumin 2.7 L Hep A IgM Ab Confirm Hepatitis A Ab Total Hep Bs Antigen Hep Bs Antibody Hep B Core Total Ab Hep B Core IgM Ab Hepatitis Be Antibody Hepatitis Be Antigen Blood Type Antibody Screen HOSPITAL COURSE: Date of Admission:08/25/19 Date of Discharge: 10/04/19 Minutes to complete discharge: 60 Discharge Summary Problems reviewed: Yes Reason For Visit: MYXEDEMA COMA;SHORTNESS OF BREATH;ACUTE REANL FAIL Current Active Problems LUCY (acute kidney injury) (Acute) AMS (altered mental status) (Acute) AV fistula (Acute) Acute metabolic encephalopathy (Acute) Acute renal failure (Acute) Acute respiratory failure (Acute) Anemia (Acute) COPD (chronic obstructive pulmonary disease) (Acute) DVT prophylaxis (Acute) Diabetes (Acute) ESRD (end stage renal disease) on dialysis (Acute) Ecstasy abuse (Acute) Fever (Acute) Fever and chills (Acute) HLD (hyperlipidemia) (Acute) HTN (hypertension) (Acute) Hepatitis B (Acute) Hypercapnic respiratory failure (Acute) Hypothermia (Acute) Metabolic acidosis (Acute) Morbid obesity (Acute) Myxedema coma (Acute) Poor appetite (Acute) Prophylactic measure (Acute) Risk for falls (Acute) SOB (shortness of breath) (Acute) Thyroid cancer (Acute) VAP (ventilator-associated pneumonia) (Acute) Condition: Stable - Instructions Diet, Activity, Other Instructions: discharge to rehab Referrals: Dimitri Pena MD [Staff Physician] - Grabiel Lentz MD [Staff Physician] - Disposition: [facility] - Home Medications Comprehensive Discharge Medication List: Ambulatory Orders Cetirizine HCl [Allergy Relief] 10 mg PO DAILY 08/25/19 Docusate Sodium [Docusate 100 mg] 100 mg PO BID 08/25/19 Acetaminophen [Tylenol .Regular Strength -] 650 mg PO Q6H PRN tablet 09/25/19 Amlodipine Besylate [Norvasc -] 10 mg PO DAILY tablet 09/25/19 Atorvastatin Ca [Lipitor] 40 mg PO HS tablet 09/25/19 Famotidine [Pepcid -] 20 mg PO Q2D tablet 09/25/19 Insulin Sliding Scale [Novolog Vial Sliding Scale -] 1 vial SQ DAILY@0700 units 09/25/19 Labetalol HCl [Normodyne -] 200 mg PO TID tablet 09/25/19 Levothyroxine [Synthroid -] 225 mcg PO DAILY@0700 tablet 09/25/19 Paroxetine HCl [Paxil -] 40 mg PO DAILY tablet 09/25/19 Albuterol 2.5/Ipratropium 0.5 [Duoneb -] 1 amp NEB Q6H PRN amp 10/04/19 Heparin - 5,000 unit SQ BID vial 10/04/19 Levothyroxine [Synthroid -] 250 mcg PO DAILY@0700 tablet 10/04/19 Vitamin B Comp W-C [Nephro-John -] 1 tablet PO DAILY tablet 10/04/19 Problem List - Problems (1) Fever and chills Assessment/Plan: resolved. blood cultures negative lactic acid within normal limits monitor off antibiotics per ID Code(s): R50.9 - FEVER, UNSPECIFIED (2) AV fistula Assessment/Plan: s/p AV Fistula +bruit, thrill+ left arm precautions Code(s): I77.0 - ARTERIOVENOUS FISTULA, ACQUIRED (3) Acute metabolic encephalopathy Assessment/Plan: resolved. patient deemed safe to make her own medical decisions by psyche. Code(s): G93.41 - METABOLIC ENCEPHALOPATHY (4) Myxedema coma Assessment/Plan: resolved. being followed by threading machine feeder automatic was on Prednisone 10mg taper (completed) on discharge as per endodrine- Pt go go home on LT4 225 repeat TFT as an outpt. BGM daily as she has been having bgms <150 Code(s): E03.5 - MYXEDEMA COMA (5) Hypercapnic respiratory failure Assessment/Plan: Intubated on admission, extubated on 09/03/19, now room air Code(s): J96.92 - RESPIRATORY FAILURE, UNSPECIFIED WITH HYPERCAPNIA (6) SOB (shortness of breath) Assessment/Plan: s/p intubation, tolerating room air with stable oxygen saturations. Code(s): R06.02 - SHORTNESS OF BREATH (7) Morbid obesity Assessment/Plan: outpatient follow up as outpatient, dietary following. Code(s): E66.01 - MORBID (SEVERE) OBESITY DUE TO EXCESS CALORIES (8) AMS (altered mental status) Assessment/Plan: see acute metabolic encephalopathy Code(s): R41.82 - ALTERED MENTAL STATUS, UNSPECIFIED (9) Acute renal failure Assessment/Plan: dialysis per renal via shiley av fistula left forearm created 09/16/2019 left arm precautions Code(s): N17.9 - ACUTE KIDNEY FAILURE, UNSPECIFIED (10) Metabolic acidosis Assessment/Plan: completed prednisone taper for possible adrenal insufficiency Code(s): E87.2 - ACIDOSIS (11) Diabetes Assessment/Plan: bgms in am once daily as bgms stable followed by threading machine feeder automatic Code(s): E11.9 - TYPE 2 DIABETES MELLITUS WITHOUT COMPLICATIONS (12) Hypothermia Assessment/Plan: resolved Code(s): T68.XXXA - HYPOTHERMIA, INITIAL ENCOUNTER (13) Anemia Assessment/Plan: received 1 PRBC since admission. on epogen Code(s): D64.9 - ANEMIA, UNSPECIFIED Qualifiers: Other causes of anemia: chronic disease, other (14) HLD (hyperlipidemia) Code(s): E78.5 - HYPERLIPIDEMIA, UNSPECIFIED (15) Poor appetite Assessment/Plan: on nepro daily with a multivitamin Code(s): R63.0 - ANOREXIA (16) Risk for falls Assessment/Plan: rollator would be of benefit. fall risk precautions. Patient will need a bariatric rollator with a seat for her unsteady gait. A rollator would benefit patient for ambulatory support as she is high fall risk and requires help with balance and often experiences fatigue with ambulation. Code(s): Z91.81 - HISTORY OF FALLING (17) DVT prophylaxis Assessment/Plan: on heparin bid/ambulation/physical therapy. Code(s): Z29.9 - ENCOUNTER FOR PROPHYLACTIC MEASURES, UNSPECIFIED This patient is new to me today: No Emergency Visit: Yes ED Registration Date: 08/25/19 Care time: The patient presented to the Emergency Department on the above date and was hospitalized for further evaluation of their emergent condition. Critical Care patient: No - Discharge Referral Referred to [facility] Med P.C.: No
[2019-10-04 13:39] LABS: INR 0.98 (0.83-1.09); PROTHROMBIN TIME (PATIENT) 11.6 SEC (9.7-13.0)
[2019-10-04 15:45] VITALS: BP 127/83; PULSE 84; TEMP 98.5
[2019-10-04] MEDS ORDERED: SODIUM CHLORIDE 250 ML IV PRN (16:22)
--- NOTE | 2019-10-04 16:22 | PN ---
Progress Note, Physician History of Present Illness: Pt seen and examined at bedside. SHe is awake and alert. She denies shortness of breath. She is being discharged today. - Current Medication List Current Medications: Active Medications Acetaminophen (Tylenol -) 650 mg PO Q6H PRN PRN Reason: Fever Or Pain Last Admin: 10/03/19 14:02 Dose: 650 mg Albuterol/Ipratropium (Duoneb -) 1 amp NEB Q6H PRN PRN Reason: SHORTNESS OF BREATH Last Admin: 10/04/19 11:05 Dose: 1 amp Amlodipine Besylate (Norvasc -) 10 mg PO DAILY [facility] Last Admin: 10/04/19 09:52 Dose: 10 mg Atorvastatin Calcium (Lipitor -) 40 mg PO HS [facility] Last Admin: 10/03/19 21:46 Dose: 40 mg Famotidine (Pepcid -) 20 mg PO Q2D [facility] Last Admin: 10/04/19 09:52 Dose: 20 mg Heparin Sodium (Porcine) (Heparin -) 5,000 unit SQ BID [facility] Last Admin: 10/04/19 09:52 Dose: 5,000 unit Insulin Aspart (Novolog Vial Sliding Scale -) 1 vial SQ DAILY@0700 [facility]; Protocol Last Admin: 10/04/19 06:11 Dose: 2 units Labetalol HCl (Normodyne -) 200 mg PO TID [facility] Last Admin: 10/04/19 14:36 Dose: 200 mg Levothyroxine Sodium (Synthroid -) 250 mcg PO DAILY@0700 [facility] Last Admin: 10/04/19 06:10 Dose: 250 mcg Multivit/Ca Carb/B Cmplx/FA/Prenat (Nephro-John -) 1 tablet PO DAILY [facility] Last Admin: 10/04/19 09:51 Dose: 1 tablet Paroxetine HCl (Paxil -) 40 mg PO DAILY [facility] Last Admin: 10/04/19 09:51 Dose: 40 mg - Objective Vital Signs: Vital Signs Temperature 98.5 F 10/04/19 15:44 Pulse Rate 84 10/04/19 15:44 Respiratory Rate 18 10/04/19 15:44 Blood Pressure 127/83 10/04/19 15:44 O2 Sat by Pulse Oximetry (%) 95 10/04/19 09:00 Constitutional: Yes: Calm Eyes: Yes: Conjunctiva Clear HENT: Yes: Atraumatic Neck: Yes: Supple Cardiovascular: Yes: S1, S2 Respiratory: Yes: CTA Bilaterally Gastrointestinal: Yes: Soft Genitourinary: Yes: Oliguria Edema: Yes Edema: LLE: Trace, RLE: Trace Integumentary: Yes: Tattoos Neurological: Yes: Oriented Labs: CBC, BMP 10/04/19 06:35 10/04/19 06:35 INR, PTT INR 0.98 (0.83-1.09) 10/04/19 12:58 Problem List - Problems (1) AMS (altered mental status) Code(s): R41.82 - ALTERED MENTAL STATUS, UNSPECIFIED (2) Acute metabolic encephalopathy Code(s): G93.41 - METABOLIC ENCEPHALOPATHY (3) Acute renal failure Code(s): N17.9 - ACUTE KIDNEY FAILURE, UNSPECIFIED (4) Diabetes Code(s): E11.9 - TYPE 2 DIABETES MELLITUS WITHOUT COMPLICATIONS (5) Hypercapnic respiratory failure Code(s): J96.92 - RESPIRATORY FAILURE, UNSPECIFIED WITH HYPERCAPNIA (6) Hypothermia Code(s): T68.XXXA - HYPOTHERMIA, INITIAL ENCOUNTER (7) Morbid obesity Code(s): E66.01 - MORBID (SEVERE) OBESITY DUE TO EXCESS CALORIES Assessment/Plan Current Medications Generic Name Dose Route Start Last Admin Trade Name Freq PRN Reason Stop Dose Admin Acetaminophen 650 mg 09/16/19 15:24 10/03/19 14:02 Tylenol - PO 650 mg Q6H PRN Administration Fever Or Pain Albuterol/Ipratropium 1 amp 10/04/19 10:28 10/04/19 11:05 Duoneb - NEB 1 amp Q6H PRN Administration SHORTNESS OF BREATH Amlodipine Besylate 10 mg 09/17/19 10:00 10/04/19 09:52 Norvasc - PO 10 mg DAILY ZOE Administration Atorvastatin Calcium 40 mg 09/16/19 22:00 10/03/19 21:46 Lipitor - PO 40 mg HS ZOE Administration Famotidine 20 mg 09/18/19 10:00 10/04/19 09:52 Pepcid - PO 20 mg Q2D ZOE Administration Heparin Sodium (Porcine) 5,000 unit 09/30/19 22:00 10/04/19 09:52 Heparin - SQ 5,000 unit BID ZOE Administration Insulin Aspart 1 vial 09/20/19 11:06 10/04/19 06:11 Novolog Vial Sliding Scale - SQ 2 units DAILY@0700 ZOE Administration Protocol Labetalol HCl 200 mg 09/16/19 22:00 10/04/19 14:36 Normodyne - PO 200 mg TID ZOE Administration Levothyroxine Sodium 250 mcg 09/27/19 07:00 10/04/19 06:10 Synthroid - PO 250 mcg DAILY@0700 ZOE Administration Multivit/Ca Carb/B Cmplx/FA/Prenat 1 tablet 10/03/19 10:00 10/04/19 09:51 Nephro-John - PO 1 tablet DAILY ZOE Administration Paroxetine HCl 40 mg 09/17/19 10:00 10/04/19 09:51 Paxil - PO 40 mg DAILY ZOE Administration Impression 1. LUCY 2. fluid overload 3. acute respiratory failure 4. hypothyroidism with tsh of 100 5. 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 urine tox pos for mdma 7. mild rhabdo 8. hepatitis B Plan - pt had HD yesterday - pt being discharged today and HD has been set up - pt refused kidney biopsy - renal diet
[2019-10-05] MEDS ORDERED: EPOETIN ALFA 10,000 UNIT/1 ML VIAL IVPUSH ONE (16:22)
== END 2019-10-04 18:42 | disposition home or self-care (01) | DRG 951 ==
LOC: JER 10:45 → JERBED 13:00 → JICU 17:03 → J5S 09-04 11:15 → J6S 09-19 17:38
PROVIDERS: ATTEND Nurse Practitioner Family
PROC: 30233N1 Transfusion of Nonautologous Red Blood Cells into Peripheral Vein, Percutaneous Approach (ICD-10-PCS; 2019-08-26)
PROC: 05HM33Z Insertion of Infusion Device into Right Internal Jugular Vein, Percutaneous Approach (ICD-10-PCS; 2019-08-27)
PROC: 05HM33Z Insertion of Infusion Device into Right Internal Jugular Vein, Percutaneous Approach (ICD-10-PCS; 2019-09-05)
PROC: 0JH63XZ Insertion of Tunneled Vascular Access Device into Chest Subcutaneous Tissue and Fascia, Percutaneous Approach (ICD-10-PCS; 2019-09-16)
PROC: 031C0ZF Bypass Left Radial Artery to Lower Arm Vein, Open Approach (ICD-10-PCS; principal; 2019-09-16 12:30)
PROC: 5A1955Z Respiratory Ventilation, Greater than 96 Consecutive Hours (ICD-10-PCS; 2019-09-25)
PROC: 0BH17EZ Insertion of Endotracheal Airway into Trachea, Via Natural or Artificial Opening (ICD-10-PCS; 2019-09-25)
PROC: 5A1D70Z Performance of Urinary Filtration, Intermittent, Less than 6 Hours Per Day (ICD-10-PCS; 2019-10-03)
DX: J96.02 Acute respiratory failure with hypercapnia (principal); R68.0 Hypothermia, not associated with low environmental temperature; F16.90 Hallucinogen use, unspecified, uncomplicated; E66.01 Morbid (severe) obesity due to excess calories; E87.2 Acidosis; N18.6 End stage renal disease; N17.9 Acute kidney failure, unspecified; J95.851 Ventilator associated pneumonia; Z68.41 Body mass index [BMI] 40.0-44.9, adult; G92 Toxic encephalopathy; M62.82 Rhabdomyolysis; E03.5 Myxedema coma; R41.82 Altered mental status, unspecified; E11.9 Type 2 diabetes mellitus without complications; E87.70 Fluid overload, unspecified; E78.5 Hyperlipidemia, unspecified; D64.9 Anemia, unspecified; J44.9 Chronic obstructive pulmonary disease, unspecified; R63.0 Anorexia; N39.0 Urinary tract infection, site not specified; E03.9 Hypothyroidism, unspecified; B19.10 Unspecified viral hepatitis B without hepatic coma
CPT/HCPCS: 36415; 36430; 36511; 36600; 70450-TC; 71045-TC-FY; 76000-TC-FY; 76705-TC; 76775-TC; 80048; 80053; 80074; 80076; 80307; 81003; 82010; 82140; 82272; 82308; 82375; 82436; 82533; 82550; 82553; 82565; 82575; 82803; 82962; 83036; 83050; 83516; 83520; 83605; 83735; 83880; 83883; 84100; 84132; 84133; 84155; 84156; 84165; 84300; 84436; 84439; 84443; 84479; 84481; 84484; 84520; 84703; 85025; 85027; 85610; 85730; 86038; 86225; 86256; 86704; 86706; 86707; 86708; 86709; 86803; 86850; 86900; 86901; 86922; 87040; 87070; 87077; 87086; 87186; 87205; 87340; 87522; 87804; 93005; 93010; 93306-TC; 94002; 94010; 94640; 94760; 94761; 97116-GP; 97162-GP; 99285-25; G0480; J0131; J0885; J1644; J7030; P9038; P9047; P9058

== ENCOUNTER 2020-03-25 14:11 | Inpatient (IN) | payer OTHER ==
--- NOTE | 2020-03-25 14:29 | PDOC ---
History of Present Illness - General Chief Complaint: Weakness Stated Complaint: WEAKNESS Time Seen by Provider: 03/25/20 14:15 History Source: Patient Exam Limitations: Other - History of Present Illness Initial Comments: 03/25/20 14:28 *history limited; is poor historian, pt is sleeping in stretcher but arousable. 55y F with PMH of ESRD on HD M/W/F, HTN, HLD, COPD (not on O2), IDDM, Anemia, Thyroid Ca 6y ago, admitted 7 months ago for myxedema coma, Obesity presenting ot the ER today due to missing dialysis. Pt states that she last went last week and has not gone to dialysis on Monday or Monday because she had things to take care of and was planning a birthday democrat. Pt says she went to the dialysis center today but was told to come to the ER for "evaluation". Upon further questioning, pt endorses a headache in the temoral regions that have been going on for the past few months associated with vomiting. Denies head injury, neck pain, abdominal pain, chest pain, sob, weakness, numbness/tingling, difficulty walking, difficulty with urination, back pain, fever, chills, cough. She says she is compliant with all of her medications. Per , pt has not been sleeping well at night but has been in her usual state of health. PMH: see hpi PSH: Meds: see med rec Allergies: nkda Social: denies PMD: 03/25/20 20:14 Past History - Medical History Allergies/Adverse Reactions: Allergies Allergy/AdvReac Type Severity Reaction Status Date / Time pollen extracts AdvReac Unknown Verified 03/25/20 14:30 shellfish derived AdvReac Unknown Verified 03/25/20 14:30 Home Medications: Ambulatory Orders Acetaminophen [Tylenol .Regular Strength -] 650 mg PO Q6H PRN tablet 09/25/19 Alcohol Antiseptic Pads [Alcohol Prep Pad] 1 each TP TID #1 box 10/04/19 Amlodipine Besylate [Norvasc -] 10 mg PO DAILY #90 tablet 10/04/19 Atorvastatin Ca [Lipitor] 40 mg PO HS #90 tablet 10/04/19 Insulin Sliding Scale [Novolog Vial Sliding Scale -] 2 units SQ ACHS #7 pen 10/04/19 Labetalol HCl [Normodyne -] 200 mg PO TID #120 tablet 10/04/19 Levothyroxine [Synthroid -] 50 mcg PO DAILY #90 tablet 10/04/19 Paroxetine HCl [Paxil] 40 mg PO DAILY #90 tablet 10/04/19 Pen Needle, Diabetic, Safety [Assure Id Pen Needle] 1 each ACHS #100 dis.needle 10/04/19 Clonazepam [Klonopin] 2 mg PO HS 03/25/20 Cancer: Yes (thyroid) COPD: Yes Diabetes: Yes HTN: Yes Hypercholesterolemia: Yes Thyroid Disease: Yes - Immunization History Immunization Up to Date: Yes - Psycho-Social/Smoking History Smoking History: Unknown if ever smoked ED Treatment Course - LABORATORY CBC & Chemistry Diagram: 03/25/20 16:05 03/25/20 16:05 - RADIOLOGY Radiology Studies Ordered: Category Date Time Status CHEST X-RAY PORTABLE* [RAD] Stat Radiology 03/25/20 14:18 Ordered Medical Decision Making - Medical Decision Making 03/25/20 20:14 55y F with PMH of myxedema coma, copd, esrd on hd mwf, dm, htn, hld, hypothyroidism s/p thyroid ca presenting to the eR for missing dialysis. also complaining of headaches. pt somnolent but arousable. vitals show hypertensive exam notable for somnolence, obesity, no abdominal tendernes, no neurological deficits, EOMI. Pt AOx3. obeys commands. ddx includes hypothyroidism, hypercapnia/respiratory failure, intracranial pathology, metabolic disturbance, mass/malignancy, encephalopathy, htn emergency/pres. -ABG, AMS workup. tfts -CT head, ekg, cxr ekg does not show signs of acute ischemia. abg does not show retention, slight metabolic acidosis. cbc wnl. chem shows elevated bun and cr (pt has esrd, due for dialysis), elevated K although slightly hemolyzed. however given symptoms, and esrd will treat. will consult nephrology. CT head shows ventriculomegaly compared to prior CT head, possible communicating hydrocephalus. [place] [place] and limitation on IVF. spoke to nephrology: terri, will follow, [place]. TSH 77, ft4 wnl. could be myxedema coma v. hydrocephalus. will admit. icu consulted. bp <170 systolic, will not aggressively treat at this time, continue home meds. Discharge - Discharge Information Problems reviewed: Yes Clinical Impression/Diagnosis: Somnolence, Myxedema coma Hydrocephalus Qualifiers: Hydrocephalus type: unspecified Qualified Code(s): G91.9 - Hydrocephalus, unspecified Condition: Good - Admission Yes - Follow up/Referral - Patient Discharge Instructions - Post Discharge Activity
--- NOTE | 2020-03-25 14:33 | PDOC ---
Attending Attestation - Resident Resident Name: Sa Ritaira - ED Attending Attestation I have performed the following: I have examined & evaluated the patient, The case was reviewed & discussed with the resident, I agree w/resident's findings & plan - HPI HPI: 03/25/20 14:33 55y F with PMH of hypertension, hyperlipidemia, diabetes, COPD, anemia, thyroid cancer 6 years ago prsenting to the ER for missing dialysis. Pt is accompanied by her . Pt gets HD M/W/F, went last monday and missed x 1 week due to obligations at home and being busy. She says they tried to go to dialysis today but were told to come to the ER. 03/25/20 15:06 - Physicial Exam PE: 03/25/20 14:33 Agree with the resident's HPI and PE as documented in the electronic medical record. NAD, well appearing, EOMI, PERRL, nl conjunctiva, anicteric; neck supple. lungs clear, RRR, no murmur. abdomen soft nontender. no rebound, guarding. Back nontender. WATKINS x4, no focal neuro deficits. No peripheral edema. normal color for ethnicity, WWP. no calf tenderness. +right chest wall permacath in place obese 03/25/20 15:06 - Medical Decision Making 03/25/20 14:32 Vital Signs Temp Pulse Resp BP Pulse Ox 98.1 F 62 18 197/90 H 99 03/25/20 14:20 03/25/20 14:20 03/25/20 14:20 03/25/20 14:20 03/25/20 14:20 vitals reviewed hypertensive normal HR afebrile sats normal 03/25/20 15:06 ddx. missed HD, electrolyte/metabolic derangements, toxic encephalopathy, infection, metabolic encephalopathy, CVA, ACS, arrhythmia, head bleed labs and lytes ESRD noted ekg, nSR [address] head with more dilated ventricles/?hydrocephalus. worse than prior. 03/25/20 16:16 Heart Score/ECG Review #1 ECG reviewed & interpreted by me at: 14:50 General ECG Interpretation: Sinus Rhythm, Normal Rate, Normal Intervals 03/25/20 15:08 EKG normal sinus rhythm 62 bpm, no interval abnormalities, narrow QRS, ST and T wave segments and morphology normal. Nonspecific T wave abnormalities Discharge - Discharge Information Problems reviewed: Yes Clinical Impression/Diagnosis: Hydrocephalus, Somnolence, Myxedema coma Condition: Fair - Admission Yes - Follow up/Referral - Patient Discharge Instructions - Post Discharge Activity
[2020-03-25] MEDS ORDERED: ACETAMINOPHEN 1000 MG/100 ML VIAL (NON FORMULARY) IVPB ONE (14:43)
[2020-03-25 15:13] LABS: ARTERIAL BLD GAS O2 SATURATION 97.7 mmHg (95-98); ARTERIAL BLOOD GAS BASE EXCESS -6.6 mmol/L (-2-2); ARTERIAL BLOOD GAS PO2 110.5 mmHg (80-100); ARTERIAL BLOOD GAS pH 7.318 (7.350-7.450)
[2020-03-25] MEDS ORDERED: ACETAMINOPHEN INJECTION 100 ML IVPB ONE (16:05)
[2020-03-25 16:29] LABS: BASO % 0.4 % (0-2.0); HEMATOCRIT 32.3 % (32.4-45.2); HEMOGLOBIN 10.8 GM/dL (10.7-15.3); MCH 30.3 pg (25.7-33.7); MCHC 33.3 g/dl (32.0-36.0); MEAN CELL VOLUME 91.1 fl (80-96); MEAN PLT VOLUME 8.6 fl (7.5-11.1); MONO % 4.6 % (3.8-10.2); PLATELET COUNT 227 K/MM3 (134-434); RBC 3.55 M/mm3 (3.60-5.2); RDW 15.8 % (11.6-15.6); WHITE BLOOD COUNT 6.5 K/mm3 (4.0-10.0)
[2020-03-25 16:41] LABS: EPI CELLS >36 /uL (0-25.1); HYALINE CASTS 1 /uL (0-3.1); PH,URINE 5.5 (5.0-8.0); URINE APPEARANCE CLOUDY; URINE BACTERIA 2181 /uL (0-1359); URINE BILIRUBIN NEGATIVE (NEGATIVE); URINE COLOR YELLOW; URINE GLUCOSE (UA) 1+ (NEGATIVE); URINE KETONE NEGATIVE (NEGATIVE); URINE LEUK ESTERASE NEGATIVE (NEGATIVE); URINE NITRITE NEGATIVE (NEGATIVE); URINE PROTEIN 3+ (NEGATIVE); URINE RBC 29 /uL (0-23.9); URINE UROBILINOGEN 0.2 mg/dL (0.2-1.0); URINE WBC 36 /uL (0-25.8)
[2020-03-25 16:42] LABS: ALBUMIN 3.2 g/dl (3.4-5.0); BILIRUBIN,TOTAL 0.6 mg/dL (0.2-1); BLOOD UREA NITROGEN 100.9 mg/dL (7-18); CALCIUM 7.9 mg/dL (8.5-10.1); POTASSIUM 5.7 mmol/L (3.5-5.1); TOT PROT 7.8 g/dl (6.4-8.2)
[2020-03-25] MEDS ORDERED: INSULIN REGULAR HUMAN 100 UNITS/ML *VIAL IVPUSH ONE (16:49)
[2020-03-25] MEDS ORDERED: DEXTROSE 50%-WATER - 25 GM/50 ML VIAL IVPUSH ONE ×2 (16:49→16:50)
[2020-03-25] MEDS ORDERED: ALBUTEROL SO4 0.083% IH SOL 2.5 MG/3 ML VIAL.NEB. NEB ONE ×2 (16:49→16:56)
[2020-03-25] MEDS ORDERED: DEXTROSE 50%-WATER 25 GM/50 ML DISP.SYRIN ONE (16:56)
[2020-03-25 17:04] LABS: CREATININE 10.6 mg/dL (0.55-1.3)
[2020-03-25] MEDS ORDERED: CALCIUM GLUCONATE 10% - 1,000 MG/10 ML VIAL IVPUSH ONE (17:59)
[2020-03-25] MEDS ORDERED: CALCIUM GLUCONATE 10% - 1,000 MG/10 ML VIAL ONE (18:27)
--- NOTE | 2020-03-25 19:03 | CONSULT ---
Consultation: REQUESTING PROVIDER: CONSULT REQUEST: We have been asked to medically evaluate this patient for myxedema coma. HISTORY OF PRESENT ILLNESS: 55 year old female with PMH ESRD (dialysis MWF), COPD(not on home O2), CHF, HLD, IDDM, thyroid cancer, anemia, 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 During interview, pt was lethargic, but arousable. Had to be repeatedly roused for entire interview. Pt stated that because she was "sleepy" and had missed the last 3 sessions of dialysis. The dialysis center rejected her and told her to go to the ED. Pt stated she was compliant with all her medications. Pt also stated that her feelings of fatigue felt different compared to her last hospital admission for myxedema coma. Pt also stated that she had recently recovered from a cold 1 week ago. Pt currently admits to fatigue and cold intolerance. REVIEW OF SYSTEMS: As per HPI. PHYSICAL EXAMINATION Vital Signs - 24 hr GENERAL: Pt lying on stretcher. Lethargic, but arousable. HEENT: NCAT LUNGS: clear to auscultation b/l, no wheezes. HEART: regular rate and rhythm, +S1/S2. No murmurs ABDOMEN: Obese. Soft, non-distended, non-tender to palpation. Normoactive bowel sounds NEURO: 1+ DTR Laboratory Last Values WBC 6.5 K/mm3 (4.0-10.0) 03/25/20 16:05 RBC 3.55 M/mm3 (3.60-5.2) L 03/25/20 16:05 Hgb 10.8 GM/dL (10.7-15.3) 03/25/20 16:05 Hct 32.3 % (32.4-45.2) L D 03/25/20 16:05 MCV 91.1 fl (80-96) 03/25/20 16:05 MCH 30.3 pg (25.7-33.7) 03/25/20 16:05 MCHC 33.3 g/dl (32.0-36.0) 03/25/20 16:05 RDW 15.8 % (11.6-15.6) H 03/25/20 16:05 Plt Count 227 K/MM3 (134-434) D 03/25/20 16:05 MPV 8.6 fl (7.5-11.1) 03/25/20 16:05 Absolute Neuts (auto) 3.4 K/mm3 (1.5-8.0) 03/25/20 16:05 Neutrophils % 53.0 % (42.8-82.8) 03/25/20 16:05 Lymphocytes % 42.0 % (8-40) H 03/25/20 16:05 Monocytes % 4.6 % (3.8-10.2) 03/25/20 16:05 Eosinophils % 0.0 % (0-4.5) 03/25/20 16:05 Basophils % 0.4 % (0-2.0) 03/25/20 16:05 Nucleated RBC % 0 % (0-0) 03/25/20 16:05 Anticoagulation Therapy No Result Required. 03/25/20 14:52 Puncture Site No Result Required. 03/25/20 14:52 Patient Temperature No Result Required. 03/25/20 14:52 ABG pH 7.318 (7.350-7.450) L 03/25/20 14:52 ABG pCO2 37.60 mmHg (35-45) 03/25/20 14:52 ABG pO2 110.5 mmHg (80-100) H 03/25/20 14:52 ABG HCO3 18.9 mmol/L (22-27) L 03/25/20 14:52 ABG O2 Sat (Measured) 97.7 mmHg (95-98) 03/25/20 14:52 ABG O2 Content No Result Required. 03/25/20 14:52 ABG Base Excess -6.6 mmol/L (-2-2) L 03/25/20 14:52 1Allen Test No Result Required. 03/25/20 14:52 Patient On Oxygen No Result Required. 03/25/20 14:52 O2 Delivery Device No Result Required. 03/25/20 14:52 Oxygen Flow Rate No Result Required. 03/25/20 14:52 Vent Mode No Result Required. 03/25/20 14:52 Vent Rate No Result Required. 03/25/20 14:52 Mechanical Rate No Result Required. 03/25/20 14:52 PEEP No Result Required. 03/25/20 14:52 Pressure Support Vent No Result Required. 03/25/20 14:52 Sodium 137 mmol/L (136-145) 03/25/20 16:05 Potassium 5.7 mmol/L (3.5-5.1) H 03/25/20 16:05 Chloride 104 mmol/L (98-107) 03/25/20 16:05 Carbon Dioxide 22 mmol/L (21-32) 03/25/20 16:05 Anion Gap 11 MMOL/L (8-16) 03/25/20 16:05 BUN 100.9 mg/dL (7-18) H 03/25/20 16:05 Creatinine 10.6 mg/dL (0.55-1.3) H* 03/25/20 16:05 Est GFR (CKD-EPI)AfAm 4.29 03/25/20 16:05 Est GFR (CKD-EPI)NonAf 3.70 03/25/20 16:05 Random Glucose 113 mg/dL (74-106) H 03/25/20 16:05 Calcium 7.9 mg/dL (8.5-10.1) L 03/25/20 16:05 Total Bilirubin 0.6 mg/dL (0.2-1) 03/25/20 16:05 AST 46 U/L (15-37) H 03/25/20 16:05 ALT 44 U/L (13-61) 03/25/20 16:05 Alkaline Phosphatase 213 U/L (45-117) H 03/25/20 16:05 Creatine Kinase 351 U/L (26-192) H 03/25/20 16:05 Creatine Kinase Index 1.5 % (0.0-5.0) 03/25/20 16:05 CK-MB (CK-2) 5.3 ng/mL (0.5-3.6) H 03/25/20 16:05 Troponin I 0.02 ng/ml (0.00-0.05) 03/25/20 16:05 Total Protein 7.8 g/dl (6.4-8.2) 03/25/20 16:05 Albumin 3.2 g/dl (3.4-5.0) L 03/25/20 16:05 TSH 77.10 uIU/ml (0.358-3.74) H 03/25/20 16:05 Free T4 0.89 ng/dl (0.76-1.46) 03/25/20 16:05 Urine Color Yellow 03/25/20 16:30 Urine Appearance Cloudy 03/25/20 16:30 Urine pH 5.5 (5.0-8.0) 03/25/20 16:30 Ur Specific [place] 1.018 (1.010-1.035) 03/25/20 16:30 Urine Protein 3+ (NEGATIVE) H 03/25/20 16:30 Urine Glucose (UA) 1+ (NEGATIVE) H 03/25/20 16:30 Urine Ketones Negative (NEGATIVE) 03/25/20 16:30 Urine Blood 2+ (NEGATIVE) H 03/25/20 16:30 Urine Nitrite Negative (NEGATIVE) 03/25/20 16:30 Urine Bilirubin Negative (NEGATIVE) 03/25/20 16:30 Urine Urobilinogen 0.2 mg/dL (0.2-1.0) 03/25/20 16:30 Ur Leukocyte Esterase Negative (NEGATIVE) 03/25/20 16:30 Urine WBC (Auto) 36 /uL (0-25.8) 03/25/20 16:30 Urine RBC (Auto) 29 /uL (0-23.9) 03/25/20 16:30 Urine Casts (Auto) 1 /uL (0-3.1) 03/25/20 16:30 U Epithel Cells (Auto) >36 /uL (0-25.1) 03/25/20 16:30 Urine Bacteria (Auto) 2181 /uL (0-1359) 03/25/20 16:30 Blood Type O POSITIVE 03/25/20 16:05 Antibody Screen Negative 03/25/20 16:05 Active Medications Albuterol/Ipratropium (Duoneb -) 1 amp NEB Q6H ZOE Chlorhexidine Gluconate (Hibiclens For Decolonization -) 1 applic TP HS ZOE Heparin Sodium (Porcine) (Heparin -) 5,000 unit SQ TID ZOE Hydrocortisone Sodium Succinate (Solu-Cortef -) 100 mg IVPUSH Q8H ZOE Insulin Aspart (Novolog Vial Sliding Scale -) 1 vial SQ ACHS ZOE; Protocol Levothyroxine Sodium (Synthroid Injection -) 100 mcg IVPUSH DAILY@0700 ZOE Mupirocin (Bactroban Ointment (For Decolonization) -) 1 applic NS BID ZOE Stop: 03/30/20 21:59 Pantoprazole Sodium (Protonix Iv) 40 mg IVPUSH DAILY [facility] Sodium Zirconium Cyclosilicate (Lokelma) 5 gm PO DAILY ZOE Last Admin: 03/25/20 20:20 Dose: 5 gm Documented by: ASSESSMENT/PLAN: 55 year old female with PMH ESRD (dialysis MWF), COPD(not on home O2), CHF, HLD, IDDM, thyroid cancer and anemia admitted to the ICU for evaluation for myxedema coma. Given pt's history (thyroid cancer, noncompliance with dialysis, cold intolerance, recent infection), physical exam (lethargic, DTR), labs (pH 7.3, elevated BUN/Cr, elevated TSH), head CT (mild-moderate ventriculomegaly, r/o communicating hydrocephalus), pt will be evaluated for myxedema coma vs. uremia vs. communicating hydrocephalus vs. AMS due to infectious etiology. #Neuro AMS--etiology to be determined, possible due to uremia, r/o myxedema coma, r/o infectious etiology, r/o stroke, -follow cultures, r/o COVID. CXR does not show effusions/infiltrates. 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 -case discussed w/ Neurosurgery by ED; requested brain MRI #Cardio Hypertensive urgency vs. emergency vs. hypertensive encephalopathy CHF--not currently in exacerbation -Single BP reading of 197/90. -resume home dose norvasc, labetolol once tolerating PO--will need med rec. -EKG -trend trop -BP upon arrival 232/96. HR 60's. Discussed with nephrology. Will start nitro drip #Pulmonary COPD supplemental O2 to maintain Spo2 88-92% -continue home dose bronchodilators, not currently in exacerbation -will need med rec. Pt should be on LABA/LAMA -ABG does not show COPD retention, however, low threshold to intubate, given mental status. #Renal ESRD on HD Hyperkalemia -missed 3 sessions dialysis, oliguric -Case discussed w/ nephrology by ED. No current indication for emergent dialysis. -For HD tomorrow likely due to 3 missed sessions of dialysis -Given lokelma, calcium gluconate, insulin/d50 and albuterol in ED -follow up bmp as previous K+ was hemolyzed, but treated. #Endo IDDM Myxedema coma? -case discussed w/ endocrinology Dr. Parker. -Myxedema coma less likely given lack of bradycardia, hypotension or hypothermia, however, concerning, given history and elevated TSH -BGM + ISS ACHS -Start IV levothyroxine 100 mcg qD, IV hydrocortisone 100q8. #ID ?UTI -UA suggestive of UTI. However, lack of leukocytosis and afebrile. -Will hold off antibiotics #FEN -NPO after midnight for possible, though unlikely, neurosurgery intervention #PPx -GI: protonix -DVT: SQH Dispo: We will continue to follow the patient. Thank you for this consultative opportunity. Visit type - Emergency Visit Emergency Visit: Yes ED Registration Date: 03/25/20 Care time: The patient presented to the Emergency Department on the above date and was hospitalized for further evaluation of their emergent condition. - New Patient This patient is new to me today: Yes Date on this admission: 03/26/20 - Critical Care Critical Care patient: Yes Total Critical Care Time (in minutes): 36 Critical Care Statement: The care of this patient involved high complexity decision making to prevent further life threatening deterioration of the patient's condition and/or to evaluate & treat vital organ system(s) failure or risk of failure. ATTENDING PHYSICIAN STATEMENT I saw and evaluated the patient. I reviewed the resident's note and discussed the case with the resident. I agree with the resident's findings and plan as documented. SUBJECTIVE: OBJECTIVE: ASSESSMENT AND PLAN:
[2020-03-25] MEDS: SODIUM ZIRCONIUM CYCLOSILICATE (LOKELMA) 5 GM PACKET PO SCH (20:20)
[2020-03-25] MEDS ORDERED: LEVOTHYROXINE SODIUM 100 MCG VIAL IVPUSH SCH (20:30)
[2020-03-25] MEDS ORDERED: CEFTRIAXONE 1 GM in DEXTROSE 5%-WATER - 50 ML IVPB SCH (20:45)
[2020-03-25] MEDS ORDERED: NITROGLYCERIN 25MG/D5W 250ML 25 MG/250 ML ML IVPB SCH (21:15)
[2020-03-25] MEDS: ALBUTEROL SO4 HFA INHALER IH SCH ×2 (21:54→22:00)
[2020-03-25] MEDS: HEPARIN NA (PORCINE) 5,000 UNITS/ML 1ML VIAL SQ SCH (21:55)
[2020-03-25] MEDS: CHLORHEXIDINE GLUCONATE 4% CLEANSER FOR DECOLONIZATION TP SCH (21:55)
[2020-03-25] MEDS: MUPIROCIN 2% TOPICAL OINTMENT FOR DECOLONIZATION NS SCH (21:55)
[2020-03-25] MEDS: HYDROCORTISONE SOD SUCCINATE 100 MG/2 ML VIAL IVPUSH SCH (21:56)
[2020-03-25] MEDS: INSULIN SLIDING SCALE (NOVOLOG) 1 VIAL SQ SCH (22:14)
[2020-03-25 22:33] LABS: BLOOD UREA NITROGEN 96.2 mg/dL (7-18); CALCIUM 7.5 mg/dL (8.5-10.1); CHLORIDE 108 mmol/L (98-107); CO2 20 mmol/L (21-32); GLUCOSE,RANDOM 67 mg/dL (74-106); SODIUM 138 mmol/L (136-145)
[2020-03-25 22:34] LABS: ANION GAP 10 MMOL/L (8-16)
[2020-03-25 22:40] LABS: CREATININE 9.7 mg/dL (0.55-1.3); POTASSIUM 7.3 mmol/L (3.5-5.1)
[2020-03-25 23:34] LABS: BLOOD UREA NITROGEN 101.6 mg/dL (7-18); CALCIUM 8.1 mg/dL (8.5-10.1); POTASSIUM 4.6 mmol/L (3.5-5.1)
[2020-03-25 23:36] LABS: CREATININE 10.4 mg/dL (0.55-1.3)
[2020-03-26] MEDS ORDERED: hydrALAZINE HCL 20 MG/ML VIAL IVPUSH ONE ×2 (03:14→06:17)
[2020-03-26] MEDS: HYDROCORTISONE SOD SUCCINATE 100 MG/2 ML VIAL IVPUSH SCH ×3 (04:26→21:32)
[2020-03-26] MEDS: HEPARIN NA (PORCINE) 5,000 UNITS/ML 1ML VIAL SQ SCH ×3 (05:56→21:32)
[2020-03-26] MEDS ORDERED: ACETAMINOPHEN 1000 MG/100 ML VIAL (NON FORMULARY) IVPB ONE (06:20)
[2020-03-26 06:24] LABS: BASO % 0.5 % (0-2.0); HEMATOCRIT 30.7 % (32.4-45.2); HEMOGLOBIN 10.2 GM/dL (10.7-15.3); LYMPH % 30.6 % (8-40); MCH 29.8 pg (25.7-33.7); MCHC 33.3 g/dl (32.0-36.0); MEAN CELL VOLUME 89.5 fl (80-96); MEAN PLT VOLUME 8.3 fl (7.5-11.1); MONO % 3.7 % (3.8-10.2); NEUT % 65.2 % (42.8-82.8); PLATELET COUNT 232 K/MM3 (134-434); RBC 3.43 M/mm3 (3.60-5.2); RDW 15.7 % (11.6-15.6); WHITE BLOOD COUNT 8.7 K/mm3 (4.0-10.0)
[2020-03-26 06:29] LABS: INR 1.03 (0.83-1.09); PROTHROMBIN TIME (PATIENT) 12.2 SEC (9.7-13.0)
[2020-03-26] MEDS: INSULIN SLIDING SCALE (NOVOLOG) 1 VIAL SQ SCH ×4 (06:30→21:47)
[2020-03-26 06:32] LABS: ACTIVATED PTT 36.9 SECONDS (25.2-36.5)
--- NOTE | 2020-03-26 06:42 | PN ---
Physical Exam: SUBJECTIVE: Patient seen and examined. Overnight, pt was hypertensive overnight at SBP >200 and given 2 IV pushes of hydralazine with appropriate response. Upon my evaluation, pt was somnolent, but arousable. OBJECTIVE: Vital Signs Period Temp Pulse Resp BP Sys/Amos Pulse Ox Last 24 Hr 97.8 F-98.1 F 62-79 18-23 173-231/79-103 95-100 GENERAL: lethargic, lying on stretcher. HEENT: NCAT. EOMI. LUNGS: CTA b/l HEART: regular rate and rhythm. No murmurs ABDOMEN: Obese, soft, non-distended. Skin: Warm, dry Laboratory Last Values WBC 8.7 K/mm3 (4.0-10.0) 03/26/20 05:52 RBC 3.43 M/mm3 (3.60-5.2) L 03/26/20 05:52 Hgb 10.2 GM/dL (10.7-15.3) L 03/26/20 05:52 Hct 30.7 % (32.4-45.2) L 03/26/20 05:52 MCV 89.5 fl (80-96) 03/26/20 05:52 MCH 29.8 pg (25.7-33.7) 03/26/20 05:52 MCHC 33.3 g/dl (32.0-36.0) 03/26/20 05:52 RDW 15.7 % (11.6-15.6) H 03/26/20 05:52 Plt Count 232 K/MM3 (134-434) 03/26/20 05:52 MPV 8.3 fl (7.5-11.1) 03/26/20 05:52 Absolute Neuts (auto) 5.6 K/mm3 (1.5-8.0) 03/26/20 05:52 Neutrophils % 65.2 % (42.8-82.8) D 03/26/20 05:52 Lymphocytes % 30.6 % (8-40) D 03/26/20 05:52 Monocytes % 3.7 % (3.8-10.2) L 03/26/20 05:52 Eosinophils % 0.0 % (0-4.5) 03/26/20 05:52 Basophils % 0.5 % (0-2.0) 03/26/20 05:52 Nucleated RBC % 0 % (0-0) 03/26/20 05:52 PT with INR 12.20 SEC (9.7-13.0) 03/26/20 05:52 INR 1.03 (0.83-1.09) 03/26/20 05:52 PTT (Actin FS) 36.9 SECONDS (25.2-36.5) H 03/26/20 05:52 Anticoagulation Therapy No Result Required. 03/25/20 14:52 Puncture Site No Result Required. 03/25/20 14:52 Patient Temperature No Result Required. 03/25/20 14:52 ABG pH 7.318 (7.350-7.450) L 03/25/20 14:52 ABG pCO2 37.60 mmHg (35-45) 03/25/20 14:52 ABG pO2 110.5 mmHg (80-100) H 03/25/20 14:52 ABG HCO3 18.9 mmol/L (22-27) L 03/25/20 14:52 ABG O2 Sat (Measured) 97.7 mmHg (95-98) 03/25/20 14:52 ABG O2 Content No Result Required. 03/25/20 14:52 ABG Base Excess -6.6 mmol/L (-2-2) L 03/25/20 14:52 Sky Test No Result Required. 03/25/20 14:52 Patient On Oxygen No Result Required. 03/25/20 14:52 O2 Delivery Device No Result Required. 03/25/20 14:52 Oxygen Flow Rate No Result Required. 03/25/20 14:52 Vent Mode No Result Required. 03/25/20 14:52 Vent Rate No Result Required. 03/25/20 14:52 Mechanical Rate No Result Required. 03/25/20 14:52 PEEP No Result Required. 03/25/20 14:52 Pressure Support Vent No Result Required. 03/25/20 14:52 Sodium 139 mmol/L (136-145) 03/25/20 22:44 Potassium 4.6 mmol/L (3.5-5.1) 03/25/20 22:44 Chloride 105 mmol/L (98-107) 03/25/20 22:44 Carbon Dioxide 20 mmol/L (21-32) L 03/25/20 22:44 Anion Gap 14 MMOL/L (8-16) 03/25/20 22:44 BUN 101.6 mg/dL (7-18) H 03/25/20 22:44 Creatinine 10.4 mg/dL (0.55-1.3) H* 03/25/20 22:44 Est GFR (CKD-EPI)AfAm 4.39 03/25/20 22:44 Est GFR (CKD-EPI)NonAf 3.79 03/25/20 22:44 POC Glucometer 145 UNITS (80-120) 03/26/20 05:59 Random Glucose 88 mg/dL (74-106) 03/25/20 22:44 Calcium 8.1 mg/dL (8.5-10.1) L 03/25/20 22:44 Total Bilirubin 0.6 mg/dL (0.2-1) 03/25/20 16:05 AST 46 U/L (15-37) H 03/25/20 16:05 ALT 44 U/L (13-61) 03/25/20 16:05 Alkaline Phosphatase 213 U/L (45-117) H 03/25/20 16:05 Creatine Kinase 379 U/L (26-192) H 03/25/20 21:45 Creatine Kinase Index 1.3 % (0.0-5.0) 03/25/20 21:45 CK-MB (CK-2) 5.1 ng/mL (0.5-3.6) H 03/25/20 21:45 Troponin I < 0.02 ng/ml (0.00-0.05) 03/25/20 21:45 Total Protein 7.8 g/dl (6.4-8.2) 03/25/20 16:05 Albumin 3.2 g/dl (3.4-5.0) L 03/25/20 16:05 TSH 77.10 uIU/ml (0.358-3.74) H 03/25/20 16:05 Free T4 0.89 ng/dl (0.76-1.46) 03/25/20 16:05 Urine Color Yellow 03/25/20 16:30 Urine Appearance Cloudy 03/25/20 16:30 Urine pH 5.5 (5.0-8.0) 03/25/20 16:30 Ur Specific [place] 1.018 (1.010-1.035) 03/25/20 16:30 Urine Protein 3+ (NEGATIVE) H 03/25/20 16:30 Urine Glucose (UA) 1+ (NEGATIVE) H 03/25/20 16:30 Urine Ketones Negative (NEGATIVE) 03/25/20 16:30 Urine Blood 2+ (NEGATIVE) H 03/25/20 16:30 Urine Nitrite Negative (NEGATIVE) 03/25/20 16:30 Urine Bilirubin Negative (NEGATIVE) 03/25/20 16:30 Urine Urobilinogen 0.2 mg/dL (0.2-1.0) 03/25/20 16:30 Ur Leukocyte Esterase Negative (NEGATIVE) 03/25/20 16:30 Urine WBC (Auto) 36 /uL (0-25.8) 03/25/20 16:30 Urine RBC (Auto) 29 /uL (0-23.9) 03/25/20 16:30 Urine Casts (Auto) 1 /uL (0-3.1) 03/25/20 16:30 U Epithel Cells (Auto) >36 /uL (0-25.1) 03/25/20 16:30 Urine Bacteria (Auto) 2181 /uL (0-1359) 03/25/20 16:30 Blood Type O POSITIVE 03/25/20 16:05 Antibody Screen Negative 03/25/20 16:05 Active Medications Albuterol Sulfate (Ventolin Hfa Inhaler -) 2 puff IH RQID [facility] Last Admin: 03/25/20 22:00 Dose: Not Given Documented by: Albuterol/Ipratropium (Duoneb -) 1 amp NEB Q6H [facility] Chlorhexidine Gluconate (Hibiclens For Decolonization -) 1 applic TP HS [facility] Last Admin: 03/25/20 21:55 Dose: 1 applic Documented by: Heparin Sodium (Porcine) (Heparin -) 5,000 unit SQ TID [facility] Last Admin: 03/26/20 05:56 Dose: 5,000 unit Documented by: Hydrocortisone Sodium Succinate (Solu-Cortef -) 100 mg IVPUSH Q8H [facility] Last Admin: 03/26/20 04:26 Dose: 100 mg Documented by: Nitroglycerin/Dextrose (Nitroglycerin 25mg/D5w 250ml) 25 mg in 250 mls @ 6 mls/hr IVPB TITR ZOE; Protocol Last Titration: 03/26/20 01:11 Dose: 50 mcg/min, 30 mls/hr Documented by: Insulin Aspart (Novolog Vial Sliding Scale -) 1 vial SQ ACHS ZOE; Protocol Last Admin: 03/26/20 06:30 Dose: Not Given Documented by: Levothyroxine Sodium (Synthroid Injection -) 100 mcg IVPUSH DAILY [facility] Mupirocin (Bactroban Ointment (For Decolonization) -) 1 applic NS BID ZOE Stop: 03/30/20 21:59 Last Admin: 03/25/20 21:55 Dose: 1 applic Documented by: Pantoprazole Sodium (Protonix Iv) 40 mg IVPUSH DAILY [facility] Sodium Zirconium Cyclosilicate (Lokelma) 5 gm PO DAILY [facility] Last Admin: 03/25/20 20:20 Dose: 5 gm Documented by: ASSESSMENT/PLAN: 55 year old female with PMH ESRD (dialysis MWF), COPD(not on home O2), CHF, HLD, IDDM, thyroid cancer, anemia, 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 During interview, pt was lethargic, but arousable. Had to be repeatedly roused for entire interview. Pt stated that because she was "sleepy" and had missed the last 3 sessions of dialysis. The dialysis center rejected her and told her to go to the ED. Pt stated she was compliant with all her medications. Pt also stated that her feelings of fatigue felt different compared to her last hospital adm ission for myxedema coma. Pt also stated that she had recently recovered from a cold 1 week ago. Pt currently admits to fatigue and cold intolerance. Given pt's history (thyroid cancer, noncompliance with dialysis, cold intolerance, recent infection), physical exam (lethargic, DTR), labs (pH 7.3, elevated BUN/Cr, elevated TSH), head CT (mild-moderate ventriculomegaly, r/o communicating hydrocephalus), pt will be evaluated for myxedema coma vs. uremia vs. communicating hydrocephalus vs. AMS due to infectious etiology. Pt was hypertensive overnight at SBP >200 and given 2 IV pushes of hydralazine with appropriate response. 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 -MRI shows mild ventricular dilation. Findings due to mild central atrophy & less likely on basis of obstructive hydrocephalus. -Neurosurgery consulted. Does not recommend shunt at this time. #Cardio Hypertensive urgency vs. emergency vs. hypertensive encephalopathy CHF--not currently in exacerbation -Single BP reading of 197/90. -resume home dose norvasc, labetolol once tolerating PO--will need med rec. -EKG -trend trop -BP upon arrival 232/96. HR 60's. Discussed with nephrology. -Discontinued nitro drip. Put on cardene drip. #Pulmonary COPD supplemental O2 to maintain Spo2 88-92% -continue home dose bronchodilators, not currently in exacerbation -will need med rec. Pt should be on LABA/LAMA -ABG does not show COPD retention, however, low threshold to intubate, given mental status. #Renal ESRD on HD Hyperkalemia -missed 3 sessions dialysis, oliguric -Case discussed w/ nephrology by ED. No current indication for emergent dialysis. -For HD tomorrow likely due to 3 missed sessions of dialysis -Given lokelma, calcium gluconate, insulin/d50 and albuterol in ED -follow up bmp as previous K+ was hemolyzed, but treated. -Vascular surgery consulted. Recommended a new AV graft as a better option to achieve access given her noncompliance. #Endo IDDM Myxedema coma? -case discussed w/ endocrinology Dr. Parker. -Myxedema coma less likely given lack of bradycardia, hypotension or hypothermia, however, concerning, given history and elevated TSH -BGM + ISS ACHS -Start IV levothyroxine 100 mcg qD, IV hydrocortisone 100q8. #ID ?UTI -UA suggestive of UTI. However, lack of leukocytosis and afebrile. -Will hold off antibiotics #FEN -NS #PPx -GI: protonix -DVT: SQH Dispo: will continue to monitor in ICU Visit type - Emergency Visit Emergency Visit: Yes ED Registration Date: 03/25/20 Care time: The patient presented to the Emergency Department on the above date and was hospitalized for further evaluation of their emergent condition. - New Patient This patient is new to me today: No - Critical Care Critical Care patient: Yes Total Critical Care Time (in minutes): 37 Critical Care Statement: The care of this patient involved high complexity decision making to prevent further life threatening deterioration of the patient's condition and/or to evaluate & treat vital organ system(s) failure or risk of failure. ATTENDING PHYSICIAN STATEMENT I saw and evaluated the patient. I reviewed the resident's note and discussed the case with the resident. I agree with the resident's findings and plan as documented. SUBJECTIVE: OBJECTIVE: ASSESSMENT AND PLAN:
[2020-03-26 06:53] LABS: BILIRUBIN,TOTAL 0.6 mg/dL (0.2-1); CALCIUM 8.1 mg/dL (8.5-10.1); MAGNESIUM 1.8 mg/dL (1.8-2.4); PHOSPHOROUS 7.5 mg/dL (2.5-4.9); POTASSIUM 4.5 mmol/L (3.5-5.1); TOT PROT 7.1 g/dl (6.4-8.2)
[2020-03-26 07:18] LABS: BLOOD UREA NITROGEN 105.5 mg/dL (7-18); CREATININE 10.1 mg/dL (0.55-1.3)
[2020-03-26] MEDS ORDERED: SODIUM CHLORIDE 250 ML IV PRN (07:26)
[2020-03-26] MEDS: ALBUTEROL SO4 HFA INHALER IH SCH ×4 (09:21→20:00)
--- NOTE | 2020-03-26 09:53 | CONSULT ---
Consult Consult Specialty:: Nephrology Reason for Consultation:: ESRD - History of Present Illness Chief Complaint: missed HD for a week History of Present Illness: Pt is a 55 year old female with pmhx of esrd, htn, hld, dm, copd who presents to the ER yesterday after missing HD for a week. She said she was busy and could not go due to obligations. She is known to me and I started her on HD. She has poor outpt follow up. She has not followed with vascular either. She is awake and alert. She denies shortness of breath. - History Source History Provided By: Patient, Medical Record - Past Medical History Cardio/Vascular: Yes: HTN Pulmonary: Yes: COPD Hepatobiliary: Yes: Other (hepatitis) Psych: Yes: Addictions (ecstacy) Endocrine: Yes: Diabetes Mellitus, Hypothyroidism, Other (Thyroid ca) - Alcohol/Substance Use Hx Alcohol Use: (not known) - Smoking History Smoking history: Unknown if ever smoked Have you smoked in the past 12 months: No - Social History Usual Living Arrangement: Alone Home Medications - Allergies Allergies/Adverse Reactions: Allergies Allergy/AdvReac Type Severity Reaction Status Date / Time pollen extracts AdvReac Unknown Verified 03/25/20 14:30 shellfish derived AdvReac Unknown Verified 03/25/20 14:30 - Home Medications Home Medications: Ambulatory Orders Acetaminophen [Tylenol .Regular Strength -] 650 mg PO Q6H PRN tablet 09/25/19 Alcohol Antiseptic Pads [Alcohol Prep Pad] 1 each TP TID #1 box 10/04/19 Amlodipine Besylate [Norvasc -] 10 mg PO DAILY #90 tablet 10/04/19 Atorvastatin Ca [Lipitor] 40 mg PO HS #90 tablet 10/04/19 Insulin Sliding Scale [Novolog Vial Sliding Scale -] 2 units SQ ACHS #7 pen 10/04/19 Labetalol HCl [Normodyne -] 200 mg PO TID #120 tablet 10/04/19 Levothyroxine [Synthroid -] 50 mcg PO DAILY #90 tablet 10/04/19 Paroxetine HCl [Paxil] 40 mg PO DAILY #90 tablet 10/04/19 Pen Needle, Diabetic, Safety [Assure Id Pen Needle] 1 each ACHS #100 dis.needle 10/04/19 Clonazepam [Klonopin] 2 mg PO HS 03/25/20 Family Medical History Family History: Denies Review of Systems - Review of Systems Constitutional: reports: No Symptoms Eyes: reports: No Symptoms HENT: reports: No Symptoms Neck: reports: No Symptoms Cardiovascular: reports: No Symptoms Respiratory: reports: No Symptoms Gastrointestinal: reports: No Symptoms Genitourinary: reports: No Symptoms Musculoskeletal: reports: No Symptoms Integumentary: reports: No Symptoms Neurological: reports: No Symptoms Endocrine: reports: No Symptoms Hematology/Lymphatic: reports: No Symptoms Psychiatric: reports: No Symptoms Physical Exam Vital Signs: Vital Signs Temperature 98.1 F 03/26/20 06:00 Pulse Rate 77 03/26/20 08:00 Respiratory Rate 20 03/26/20 08:00 Blood Pressure 134/61 03/26/20 08:00 O2 Sat by Pulse Oximetry (%) 98 03/26/20 08:00 Constitutional: Yes: Calm Eyes: Yes: Conjunctiva Clear HENT: Yes: Atraumatic Neck: Yes: Supple Cardiovascular: Yes: S1, S2 Respiratory: Yes: CTA Bilaterally Gastrointestinal: Yes: Normal Bowel Sounds, Soft Renal/: Yes: WNL Musculoskeletal: Yes: WNL Extremities: Yes: WNL Edema: No Neurological: Yes: Oriented Labs: CBC, BMP 03/26/20 05:52 03/26/20 05:52 Imaging - Results Chest X-ray: Report Reviewed Problem List - Problems (1) ESRD (end stage renal disease) Code(s): N18.6 - END STAGE RENAL DISEASE Assessment/Plan Current Medications Generic Name Dose Route Start Last Admin Trade Name Freq PRN Reason Stop Dose Admin Albuterol Sulfate 2 puff 03/25/20 21:30 03/26/20 09:21 Ventolin Hfa Inhaler - IH 2 puff RQID ZOE Administration Albuterol/Ipratropium 1 amp 03/25/20 20:30 Duoneb - NEB Q6H ZOE Chlorhexidine Gluconate 1 applic 03/25/20 22:00 03/25/20 21:55 Hibiclens For Decolonization - TP 1 applic HS ZOE Administration Heparin Sodium (Porcine) 5,000 unit 03/25/20 22:00 03/26/20 05:56 Heparin - SQ 5,000 unit TID ZOE Administration Hydrocortisone Sodium Succinate 100 mg 03/25/20 21:00 03/26/20 04:26 Solu-Cortef - IVPUSH 100 mg Q8H ZOE Administration Nitroglycerin/Dextrose 25 mg in 250 mls @ 6 mls/hr 03/25/20 21:15 03/26/20 01:11 Nitroglycerin 25mg/D5w 250ml IVPB 50 mcg/min TITR ZOE 30 mls/hr Titration Protocol 10 MCG/MIN Sodium Chloride 250 mls @ 3,000 mls/hr 03/26/20 07:26 Normal Saline - IV 03/27/20 07:26 PRN PRN Hypotension during Dialysis Insulin Aspart 1 vial 03/25/20 22:00 03/26/20 06:30 Novolog Vial Sliding Scale - SQ Not Given ACHS ZOE Protocol Levothyroxine Sodium 100 mcg 03/26/20 05:57 Synthroid Injection - IVPUSH DAILY ZOE Mupirocin 1 applic 03/25/20 22:00 03/25/20 21:55 Bactroban Ointment (For Decolonization) - NS 03/30/20 21:59 1 applic BID ZOE Administration Pantoprazole Sodium 40 mg 03/26/20 10:00 Protonix Iv IVPUSH DAILY ZOE Sodium Zirconium Cyclosilicate 5 gm 03/25/20 18:00 03/25/20 20:20 Lokelma PO 5 gm DAILY ZOE Administration Impression 1. ESRD 2. missed HD 3. copd 4. hypothyroidism 5. hep B 6. anemia 7. DM 8. hypertension Plan - HD today - discussed compliance - vascular follow up - d/c terri - discussed with ICU team - bp improving, start to introduce home meds
[2020-03-26] MEDS ORDERED: PT OWN MED DRAWER 7, Y5N ONE ×2 (09:55→14:36)
[2020-03-26] MEDS: SODIUM ZIRCONIUM CYCLOSILICATE (LOKELMA) 5 GM PACKET PO SCH (09:57)
[2020-03-26] MEDS: PANTOPRAZOLE SODIUM 40 MG VIAL IVPUSH SCH ×2 (09:57→13:46)
[2020-03-26] MEDS: LEVOTHYROXINE SODIUM 100 MCG VIAL IVPUSH SCH ×2 (09:57→14:19)
[2020-03-26] MEDS: MUPIROCIN 2% TOPICAL OINTMENT FOR DECOLONIZATION NS SCH ×2 (09:58→21:33)
[2020-03-26] MEDS ORDERED: ONDANSETRON 4 MG/2 ML VIAL IVPUSH PRN (11:49)
--- NOTE | 2020-03-26 11:54 | EKG ---
Test Reason : Blood Pressure : / mmHG Vent. Rate : 062 BPM Atrial Rate : 062 BPM P-R Int : 146 ms QRS Dur : 074 ms QT Int : 448 ms P-R-T Axes : 039 -03 -01 degrees QTc Int : 454 ms POOR DATA QUALITY, INTERPRETATION MAY BE ADVERSELY AFFECTED NORMAL SINUS RHYTHM ANTERIOR INFARCT (CITED ON OR BEFORE 25-MAR-2020) ABNORMAL ECG WHEN COMPARED WITH ECG OF 25-AUG-2019 10:59, NO SIGNIFICANT CHANGE WAS FOUND Confirmed by HERNAN ENAMORADO MD ([id number]) on 03/26/2020 11:53:53 AM Referred By: Confirmed By:HERNAN ENAMORADO MD
--- NOTE | 2020-03-26 13:48 | PN ---
Teaching Attending Note Name of Resident: Jacqueline Bearden ATTENDING PHYSICIAN STATEMENT I saw and evaluated the patient. I reviewed the resident's note and discussed the case with the resident. I agree with the resident's findings and plan as documented. SUBJECTIVE: Patient seen and examined in the ICU. Drowsy but easily arousable. Denies CP or SOB. Started on IV synthroid and hydrocortisone for suspected myxedema coma. Relative bradycardua noted. Intake & Output 03/23/20 03/24/20 03/25/20 03/26/20 23:59 23:59 23:59 23:59 Intake Total 30 190 Output Total 400 Balance 30 -210 Weight 237 lb 14.06 oz 107 lb 14.4 oz Last Vital Signs Temp Pulse Resp BP Pulse Ox 98.1 F 79 23 H 170/92 100 03/26/20 10:00 03/26/20 12:00 03/26/20 12:00 03/26/20 12:00 03/26/20 12:00 Active Medications Albuterol Sulfate (Ventolin Hfa Inhaler -) 2 puff IH RQID [facility] Last Admin: 03/26/20 12:46 Dose: 2 puff Documented by: Albuterol/Ipratropium (Duoneb -) 1 amp NEB Q6H [facility] Chlorhexidine Gluconate (Hibiclens For Decolonization -) 1 applic TP HS [facility] Last Admin: 03/25/20 21:55 Dose: 1 applic Documented by: Heparin Sodium (Porcine) (Heparin -) 5,000 unit SQ TID [facility] Last Admin: 03/26/20 05:56 Dose: 5,000 unit Documented by: Hydrocortisone Sodium Succinate (Solu-Cortef -) 100 mg IVPUSH Q8H [facility] Last Admin: 03/26/20 04:26 Dose: 100 mg Documented by: Nitroglycerin/Dextrose (Nitroglycerin 25mg/D5w 250ml) 25 mg in 250 mls @ 6 mls/hr IVPB TITR [facility]; Protocol Last Titration: 03/26/20 11:45 Dose: 50 mcg/min, 30 mls/hr Documented by: Sodium Chloride (Normal Saline -) 250 mls @ 3,000 mls/hr IV PRN PRN PRN Reason: Hypotension during Dialysis Stop: 03/27/20 07:26 Insulin Aspart (Novolog Vial Sliding Scale -) 1 vial SQ ACHS [facility]; Protocol Last Admin: 03/26/20 11:54 Dose: Not Given Documented by: Levothyroxine Sodium (Synthroid Injection -) 100 mcg IVPUSH DAILY [facility] Mupirocin (Bactroban Ointment (For Decolonization) -) 1 applic NS BID [facility] Stop: 03/30/20 21:59 Last Admin: 03/26/20 09:58 Dose: 1 applic Documented by: Ondansetron HCl (Zofran Injection) 4 mg IVPUSH Q6H PRN PRN Reason: NAUSEA Pantoprazole Sodium (Protonix -) 40 mg PO DAILY [facility] GENERAL: Drowsy but easily arousable HEENT: NCAT LUNGS: clear to auscultation b/l, no wheezes. HEART: regular rate and rhythm, +S1/S2. No murmurs ABDOMEN: Obese. Soft, non-distended, non-tender to palpation. Normoactive bowel sounds NEURO: Non-focal Laboratory Results - last 24 hr 03/25/20 03/25/20 03/25/20 14:52 16:05 16:05 WBC 6.5 RBC 3.55 L Hgb 10.8 Hct 32.3 L D MCV 91.1 MCH 30.3 MCHC 33.3 RDW 15.8 H Plt Count 227 D MPV 8.6 Absolute Neuts (auto) 3.4 Neutrophils % 53.0 Lymphocytes % 42.0 H Monocytes % 4.6 Eosinophils % 0.0 Basophils % 0.4 Nucleated RBC % 0 PT with INR INR PTT (Actin FS) Anticoagulation Therapy No Result Required. Puncture Site No Result Required. Patient Temperature No Result Required. ABG pH 7.318 L ABG pCO2 37.60 ABG pO2 110.5 H ABG HCO3 18.9 L ABG O2 Sat (Measured) 97.7 ABG O2 Content No Result Required. ABG Base Excess -6.6 L Sky Test No Result Required. Patient On Oxygen No Result Required. O2 Delivery Device No Result Required. Oxygen Flow Rate No Result Required. Vent Mode No Result Required. Vent Rate No Result Required. Mechanical Rate No Result Required. PEEP No Result Required. Pressure Support Vent No Result Required. Sodium 137 Potassium 5.7 H Chloride 104 Carbon Dioxide 22 Anion Gap 11 BUN 100.9 H Creatinine 10.6 H* Est GFR (CKD-EPI)AfAm 4.29 Est GFR (CKD-EPI)NonAf 3.70 POC Glucometer Random Glucose 113 H Calcium 7.9 L Phosphorus Magnesium Total Bilirubin 0.6 AST 46 H ALT 44 Alkaline Phosphatase 213 H Creatine Kinase 351 H Creatine Kinase Index 1.5 CK-MB (CK-2) 5.3 H Troponin I 0.02 Total Protein 7.8 Albumin 3.2 L TSH 77.10 H Free T4 0.89 Urine Color Urine Appearance Urine pH Ur Specific [place] Urine Protein Urine Glucose (UA) Urine Ketones Urine Blood Urine Nitrite Urine Bilirubin Urine Urobilinogen Ur Leukocyte Esterase Urine WBC (Auto) Urine RBC (Auto) Urine Casts (Auto) U Epithel Cells (Auto) Urine Bacteria (Auto) Blood Type Antibody Screen 03/25/20 03/25/20 03/25/20 16:05 16:30 21:45 WBC RBC Hgb Hct MCV MCH MCHC RDW Plt Count MPV Absolute Neuts (auto) Neutrophils % Lymphocytes % Monocytes % Eosinophils % Basophils % Nucleated RBC % PT with INR INR PTT (Actin FS) Anticoagulation Therapy Puncture Site Patient Temperature ABG pH ABG pCO2 ABG pO2 ABG HCO3 ABG O2 Sat (Measured) ABG O2 Content ABG Base Excess Sky Test Patient On Oxygen O2 Delivery Device Oxygen Flow Rate Vent Mode Vent Rate Mechanical Rate PEEP Pressure Support Vent Sodium 138 Potassium 7.3 H* Chloride 108 H Carbon Dioxide 20 L Anion Gap 10 BUN 96.2 H Creatinine 9.7 H* Est GFR (CKD-EPI)AfAm 4.78 Est GFR (CKD-EPI)NonAf 4.12 POC Glucometer Random Glucose 67 L Calcium 7.5 L Phosphorus Magnesium Total Bilirubin AST ALT Alkaline Phosphatase Creatine Kinase 379 H Creatine Kinase Index 1.3 CK-MB (CK-2) 5.1 H Troponin I < 0.02 Total Protein Albumin TSH Free T4 Urine Color Yellow Urine Appearance Cloudy Urine pH 5.5 Ur Specific [place] 1.018 Urine Protein 3+ H Urine Glucose (UA) 1+ H Urine Ketones Negative Urine Blood 2+ H Urine Nitrite Negative Urine Bilirubin Negative Urine Urobilinogen 0.2 Ur Leukocyte Esterase Negative Urine WBC (Auto) 36 Urine RBC (Auto) 29 Urine Casts (Auto) 1 U Epithel Cells (Auto) >36 Urine Bacteria (Auto) 2181 Blood Type O POSITIVE Antibody Screen Negative 03/25/20 03/25/20 03/26/20 22:12 22:44 05:52 WBC 8.7 RBC 3.43 L Hgb 10.2 L Hct 30.7 L MCV 89.5 MCH 29.8 MCHC 33.3 RDW 15.7 H Plt Count 232 MPV 8.3 Absolute Neuts (auto) 5.6 Neutrophils % 65.2 D Lymphocytes % 30.6 D Monocytes % 3.7 L Eosinophils % 0.0 Basophils % 0.5 Nucleated RBC % 0 PT with INR INR PTT (Actin FS) Anticoagulation Therapy Puncture Site Patient Temperature ABG pH ABG pCO2 ABG pO2 ABG HCO3 ABG O2 Sat (Measured) ABG O2 Content ABG Base Excess Sky Test Patient On Oxygen O2 Delivery Device Oxygen Flow Rate Vent Mode Vent Rate Mechanical Rate PEEP Pressure Support Vent Sodium 139 Potassium 4.6 Chloride 105 Carbon Dioxide 20 L Anion Gap 14 BUN 101.6 H Creatinine 10.4 H* Est GFR (CKD-EPI)AfAm 4.39 Est GFR (CKD-EPI)NonAf 3.79 POC Glucometer 87 Random Glucose 88 Calcium 8.1 L Phosphorus Magnesium Total Bilirubin AST ALT Alkaline Phosphatase Creatine Kinase Creatine Kinase Index CK-MB (CK-2) Troponin I Total Protein Albumin TSH Free T4 Urine Color Urine Appearance Urine pH Ur Specific [place] Urine Protein Urine Glucose (UA) Urine Ketones Urine Blood Urine Nitrite Urine Bilirubin Urine Urobilinogen Ur Leukocyte Esterase Urine WBC (Auto) Urine RBC (Auto) Urine Casts (Auto) U Epithel Cells (Auto) Urine Bacteria (Auto) Blood Type Antibody Screen 03/26/20 03/26/20 03/26/20 05:52 05:52 05:52 WBC RBC Hgb Hct MCV MCH MCHC RDW Plt Count MPV Absolute Neuts (auto) Neutrophils % Lymphocytes % Monocytes % Eosinophils % Basophils % Nucleated RBC % PT with INR 12.20 INR 1.03 PTT (Actin FS) 36.9 H Anticoagulation Therapy Puncture Site Patient Temperature ABG pH ABG pCO2 ABG pO2 ABG HCO3 ABG O2 Sat (Measured) ABG O2 Content ABG Base Excess Sky Test Patient On Oxygen O2 Delivery Device Oxygen Flow Rate Vent Mode Vent Rate Mechanical Rate PEEP Pressure Support Vent Sodium 139 Potassium 4.5 Chloride 106 Carbon Dioxide 17 L Anion Gap 15 BUN 105.5 H* Creatinine 10.1 H* Est GFR (CKD-EPI)AfAm 4.55 Est GFR (CKD-EPI)NonAf 3.92 POC Glucometer Random Glucose 139 H Calcium 8.1 L Phosphorus 7.5 H Magnesium 1.8 Total Bilirubin 0.6 AST 32 ALT 39 Alkaline Phosphatase 190 H Creatine Kinase Creatine Kinase Index CK-MB (CK-2) Troponin I Total Protein 7.1 Albumin 3.0 L TSH Free T4 Urine Color Urine Appearance Urine pH Ur Specific [place] Urine Protein Urine Glucose (UA) Urine Ketones Urine Blood Urine Nitrite Urine Bilirubin Urine Urobilinogen Ur Leukocyte Esterase Urine WBC (Auto) Urine RBC (Auto) Urine Casts (Auto) U Epithel Cells (Auto) Urine Bacteria (Auto) Blood Type O POSITIVE Antibody Screen Negative 03/26/20 05:59 WBC RBC Hgb Hct MCV MCH MCHC RDW Plt Count MPV Absolute Neuts (auto) Neutrophils % Lymphocytes % Monocytes % Eosinophils % Basophils % Nucleated RBC % PT with INR INR PTT (Actin FS) Anticoagulation Therapy Puncture Site Patient Temperature ABG pH ABG pCO2 ABG pO2 ABG HCO3 ABG O2 Sat (Measured) ABG O2 Content ABG Base Excess Sky Test Patient On Oxygen O2 Delivery Device Oxygen Flow Rate Vent Mode Vent Rate Mechanical Rate PEEP Pressure Support Vent Sodium Potassium Chloride Carbon Dioxide Anion Gap BUN Creatinine Est GFR (CKD-EPI)AfAm Est GFR (CKD-EPI)NonAf POC Glucometer 145 Random Glucose Calcium Phosphorus Magnesium Total Bilirubin AST ALT Alkaline Phosphatase Creatine Kinase Creatine Kinase Index CK-MB (CK-2) Troponin I Total Protein Albumin TSH Free T4 Urine Color Urine Appearance Urine pH Ur Specific [place] Urine Protein Urine Glucose (UA) Urine Ketones Urine Blood Urine Nitrite Urine Bilirubin Urine Urobilinogen Ur Leukocyte Esterase Urine WBC (Auto) Urine RBC (Auto) Urine Casts (Auto) U Epithel Cells (Auto) Urine Bacteria (Auto) Blood Type Antibody Screen ASSESSMENT/PLAN: Myxedema Coma ESRD on HD (MWF) COPD CHF HLD IDDM Thyroid cancer S/P resection Anemia Accelerated HTN IV Synthroid Hydrocortisone Strict I & O HD per Renal Follow Neruo exam Cardiac Telemetry monitoring Neuro evaluation Resume home BP Meds BD TX PRN Endocrine evaluation Follow mental status Requires ICU monitoring due to overall tenuous status Dr Alonso Critical care time spent in reviewing chart, evaluating patient and formulating plan - 36 minutes.
[2020-03-26] MEDS ORDERED: MORPHINE SULFATE 2 MG/ML VIAL IVPUSH ONE (13:54)
[2020-03-26] MEDS ORDERED: NICARDIPINE 25 MG in DEXTROSE 5%-WATER - 240 ML IVPB SCH (14:00)
[2020-03-26] MEDS: PANTOPRAZOLE 40 MG TABLET PO SCH (14:19)
--- NOTE | 2020-03-26 17:30 | CONSULT ---
Consult - text type - Consultation Consultation Note: 59 year old woman with ESRD on HD. She had left arm AVF creation in September but never returned for office follow-up. She is now admitted with uremia. She has a Permacath for access. Left forearm fistula patent with thrill and bruit. Vein remains small, non-matured. Imp: Non-maturing AV fistula Plan: Duplex of AV fistula to check size and flow. If fistula can be salvaged it will need several treatments with balloon venoplasty. Given her noncompliance, a new AV graft may be a better option to achieve access.
[2020-03-26] MEDS: CHLORHEXIDINE GLUCONATE 4% CLEANSER FOR DECOLONIZATION TP SCH (21:20)
[2020-03-26] MEDS ORDERED: NICARDIPINE IV SCH (23:18)
[2020-03-26] MEDS ORDERED: WATER IV SCH (23:18)
[2020-03-26] MEDS ORDERED: DEXTROSE 5% IV SCH (23:18)
[2020-03-27] MEDS ORDERED: PT OWN MED DRAWER 7, Y5N ONE ×2 (04:47→09:35)
[2020-03-27] MEDS: HEPARIN NA (PORCINE) 5,000 UNITS/ML 1ML VIAL SQ SCH ×3 (05:36→21:07)
[2020-03-27] MEDS: HYDROCORTISONE SOD SUCCINATE 100 MG/2 ML VIAL IVPUSH SCH ×2 (05:36→12:09)
[2020-03-27] MEDS: INSULIN SLIDING SCALE (NOVOLOG) 1 VIAL SQ SCH ×4 (06:40→21:08)
[2020-03-27] MEDS: LEVOTHYROXINE SODIUM 100 MCG VIAL IVPUSH SCH (09:36)
[2020-03-27] MEDS: amLODIPine BESYLATE 10 MG TABLET (FP) PO SCH (09:36)
[2020-03-27] MEDS: PARoxetine HCL 20 MG TABLET PO SCH (09:36)
[2020-03-27] MEDS: PANTOPRAZOLE 40 MG TABLET PO SCH (09:36)
[2020-03-27] MEDS: ALBUTEROL SO4 HFA INHALER IH SCH ×3 (09:40→17:43)
[2020-03-27] MEDS: MUPIROCIN 2% TOPICAL OINTMENT FOR DECOLONIZATION NS SCH ×2 (09:41→21:07)
--- NOTE | 2020-03-27 10:31 | CONSULT ---
Admitting History and Physical - Primary Care Physician PCP: Dominic Alonso - Admission History of Present Illness: 55 year old female with PMH ESRD (dialysis MWF), COPD(not on home O2), CHF, HLD, IDDM, thyroid cancer, anemia, hospital admission 7 months ago for myxedema coma presented to ED for evaluation after missing 3 dialysis sessions NPO, except for medication, referred for Speech/Swallowing evaluation. Selected Entries 03/26/20 03/26/20 03/27/20 10:00 20:00 00:00 Breakfast NPO NPO Temperature Blood Pressure 166/84 03/27/20 03/27/20 03/27/20 02:00 04:00 06:00 Breakfast Temperature 97.8 F 99.0 F Blood Pressure 135/91 164/65 152/62 03/27/20 03/27/20 03/27/20 08:00 09:01 09:07 Breakfast NPO NPO Temperature Blood Pressure 134/74 Laboratory Tests 03/25/20 03/26/20 03/26/20 17:40 05:52 14:00 WBC 8.7 COVID-19 ([facility]) Pending Hep Bs Antigen Pending Hep C Ab Diagnostic Pending Known to me from Aug 2019 admission, seen after extubation, progressed to soft reg, thin liquids History Source: Medical Record - Past Medical History Cardiovascular: Yes: HTN Pulmonary: Yes: COPD Hepatobiliary: Yes: Other (hepatitis) Heme/Onc: Yes: Cancer (Thyroid cancer s/p thyroidectomy) Psych: Yes: Addictions (ecstacy) Endocrine: Yes: Diabetes Mellitus, Hypothyroidism, Other (Thyroid ca) - Smoking History Smoking history: Unknown if ever smoked Have you smoked in the past 12 months: No - Alcohol/Substance Use Hx Alcohol Use: (not known) History - Admission Reason For Visit: PERSISTENT HEADACHE,HYDROCEPHALUS,ESRD ON DIALYSIS - Diagnostics X-ray: Report Reviewed CT Scan: Report Reviewed MRI: Report Reviewed - Hearing Hearing: Normal Speech Evaluation - Communication Primary Language: INDONESIAN - Speech Characteristics Articulation: Yes: Imprecise (Weaned off sedatives recently. Confused, sleepy) - Swallow Evaluation/Bedside Assessment Current Nutritional Intake: NPO Coughing/Throat Clear: No (thin liquid) Recommendations - Speech Evaluation, Impression/Plan Impression: Covid pending. Reviewed with nursing. Tolerating pills with water without difficulty. Verbal.Much improved since yesterday. Recommendations: Other (po, as tolerated)
[2020-03-27 11:38] LABS: BASO % 0.1 % (0-2.0); HEMATOCRIT 36.3 % (32.4-45.2); HEMOGLOBIN 12.2 GM/dL (10.7-15.3); LYMPH % 11.7 % (8-40); MCH 30.1 pg (25.7-33.7); MCHC 33.6 g/dl (32.0-36.0); MEAN CELL VOLUME 89.5 fl (80-96); MEAN PLT VOLUME 9.2 fl (7.5-11.1); MONO % 0.7 % (3.8-10.2); NEUT % 87.5 % (42.8-82.8); PLATELET COUNT 251 K/MM3 (134-434); RBC 4.05 M/mm3 (3.60-5.2); RDW 15.4 % (11.6-15.6); WHITE BLOOD COUNT 8.6 K/mm3 (4.0-10.0)
[2020-03-27 12:11] LABS: BILIRUBIN,TOTAL 0.4 mg/dL (0.2-1); BLOOD UREA NITROGEN 55.9 mg/dL (7-18); CALCIUM 8.1 mg/dL (8.5-10.1); CREATININE 6.9 mg/dL (0.55-1.3); MAGNESIUM 1.9 mg/dL (1.8-2.4); TOT PROT 7.8 g/dl (6.4-8.2)
--- NOTE | 2020-03-27 13:58 | PN ---
Teaching Attending Note Name of Resident: Jacqueline Bearden ATTENDING PHYSICIAN STATEMENT I saw and evaluated the patient. I reviewed the resident's note and discussed the case with the resident. I agree with the resident's findings and plan as documented. SUBJECTIVE: Patient seen and examined in the ICU. More awake and alert. Denies CP or SOB. No acute events overnight. Intake & Output 03/24/20 03/25/20 03/26/20 03/27/20 23:59 23:59 23:59 23:59 Intake Total 30 730 900 Output Total 1350 Balance 30 -620 900 Weight 237 lb 14.06 oz 107 lb 14.4 oz 110 lb 7.225 oz Last Vital Signs Temp Pulse Resp BP Pulse Ox 97.8 F 78 19 123/65 97 03/27/20 10:00 03/27/20 12:00 03/27/20 12:00 03/27/20 12:00 03/27/20 12:00 Active Medications Albuterol Sulfate (Ventolin Hfa Inhaler -) 2 puff IH RQID [facility] Last Admin: 03/27/20 12:09 Dose: 2 puff Documented by: Albuterol/Ipratropium (Duoneb -) 1 amp NEB Q6H [facility] Amlodipine Besylate (Norvasc -) 10 mg PO DAILY [facility] Last Admin: 03/27/20 09:36 Dose: 10 mg Documented by: Atorvastatin Calcium (Lipitor -) 40 mg PO HS [facility] Chlorhexidine Gluconate (Hibiclens For Decolonization -) 1 applic TP HS [facility] Last Admin: 03/26/20 21:20 Dose: 1 applic Documented by: Heparin Sodium (Porcine) (Heparin -) 5,000 unit SQ TID [facility] Last Admin: 03/27/20 05:36 Dose: 5,000 unit Documented by: Hydrocortisone Sodium Succinate (Solu-Cortef -) 100 mg IVPUSH Q8H [facility] Last Admin: 03/27/20 12:09 Dose: 100 mg Documented by: Sodium Chloride (Normal Saline -) 250 mls @ 3,000 mls/hr IV PRN PRN PRN Reason: Hypotension during Dialysis Stop: 03/27/20 07:26 Nicardipine HCl 100 mg/ (Dextrose) 1,000 mls @ 25 mls/hr IV TITR [facility]; Protocol Last Titration: 03/27/20 07:00 Dose: 7.5 mg/hr, 75 mls/hr Documented by: Insulin Aspart (Novolog Vial Sliding Scale -) 1 vial SQ ACHS [facility]; Protocol Last Admin: 03/27/20 12:07 Dose: 2 units Documented by: Labetalol HCl (Normodyne -) 200 mg PO TID [facility] Levothyroxine Sodium (Synthroid Injection -) 100 mcg IVPUSH DAILY [facility] Last Admin: 03/27/20 09:36 Dose: 100 mcg Documented by: Mupirocin (Bactroban Ointment (For Decolonization) -) 1 applic NS BID [facility] Stop: 03/30/20 21:59 Last Admin: 03/27/20 09:41 Dose: 1 applic Documented by: Ondansetron HCl (Zofran Injection) 4 mg IVPUSH Q6H PRN PRN Reason: NAUSEA Pantoprazole Sodium (Protonix -) 40 mg PO DAILY [facility] Last Admin: 03/27/20 09:36 Dose: 40 mg Documented by: Paroxetine HCl (Paxil -) 40 mg PO DAILY [facility] Last Admin: 03/27/20 09:36 Dose: 40 mg Documented by: GENERAL: Awake and alert HEENT: NCAT LUNGS: clear to auscultation b/l, no wheezes. HEART: regular rate and rhythm, +S1/S2. No murmurs ABDOMEN: Obese. Soft, non-distended, non-tender to palpation. Normoactive bowel sounds NEURO: Non-focal Laboratory Results - last 24 hr 03/26/20 03/26/20 03/27/20 16:54 21:36 06:39 WBC RBC Hgb Hct MCV MCH MCHC RDW Plt Count MPV Absolute Neuts (auto) Neutrophils % Lymphocytes % Monocytes % Eosinophils % Basophils % Nucleated RBC % Sodium Potassium Chloride Carbon Dioxide Anion Gap BUN Creatinine Est GFR (CKD-EPI)AfAm Est GFR (CKD-EPI)NonAf POC Glucometer 159 180 221 Random Glucose Calcium Phosphorus Magnesium Total Bilirubin AST ALT Alkaline Phosphatase Total Protein Albumin 03/27/20 03/27/20 03/27/20 10:08 10:08 11:49 WBC 8.6 RBC 4.05 Hgb 12.2 Hct 36.3 D MCV 89.5 MCH 30.1 MCHC 33.6 RDW 15.4 Plt Count 251 MPV 9.2 D Absolute Neuts (auto) 7.5 Neutrophils % 87.5 H D Lymphocytes % 11.7 D Monocytes % 0.7 L D Eosinophils % 0.0 Basophils % 0.1 Nucleated RBC % 0 Sodium 131 L Potassium 4.0 Chloride 94 L Carbon Dioxide 25 Anion Gap 12 BUN 55.9 H Creatinine 6.9 H Est GFR (CKD-EPI)AfAm 7.21 Est GFR (CKD-EPI)NonAf 6.22 POC Glucometer 195 Random Glucose 241 H Calcium 8.1 L Phosphorus 5.0 H Magnesium 1.9 Total Bilirubin 0.4 AST 22 ALT 35 Alkaline Phosphatase 193 H Total Protein 7.8 Albumin 3.0 L ASSESSMENT/PLAN: Myxedema Coma ESRD on HD (MWF) COPD CHF HLD IDDM Thyroid cancer S/P resection Anemia Accelerated HTN IV Synthroid Hydrocortisone Strict I & O HD per Renal Follow Neruo exam Cardiac Telemetry monitoring Neuro evaluation BD TX PRN Endocrine evaluation Dr Alonso
[2020-03-27] MEDS ORDERED: LABETALOL HCL 200 MG TABLET (FP) PO SCH (14:00)
--- NOTE | 2020-03-27 14:40 | CONSULT ---
Consult Consult Specialty:: Endocrinology Referred by:: Yvonne Day Reason for Consultation:: Hypothyroidism - History of Present Illness Chief Complaint: lethargy History of Present Illness: This is a 55 year old female with ESRD on HD MWF, COPD(not on home O2), CHF, HLD, DM, thyroid cancer, Hypothyroidism, anemia, presented to ED for evaluation after missing 3 dialysis sessions. During interview, pt was lethargic, but ar ousable. Had to be repeatedly roused for entire interview. Pt stated that because she was "sleepy" and had missed the last 3 sessions of dialysis. The dialysis center rejected her and told her to go to the ED. Pt stated she was compliant with all her medications. Pt says she takes two tablets of lev othyroxine daily in the morning. Pt awake alert now. Feels better. - History Source History Provided By: Patient, Medical Record - Past Medical History Cardio/Vascular: Yes: HTN Pulmonary: Yes: COPD Hepatobiliary: Yes: Other (hepatitis) Psych: Yes: Addictions (ecstacy) Endocrine: Yes: Diabetes Mellitus, Hypothyroidism, Other (Thyroid ca) - Alcohol/Substance Use Hx Alcohol Use: (not known) - Smoking History Smoking history: Unknown if ever smoked Have you smoked in the past 12 months: No - Social History Usual Living Arrangement: Alone Home Medications - Allergies Allergies/Adverse Reactions: Allergies Allergy/AdvReac Type Severity Reaction Status Date / Time pollen extracts AdvReac Unknown Verified 03/25/20 14:30 shellfish derived AdvReac Unknown Verified 03/25/20 14:30 fish Allergy Uncoded 03/27/20 14:38 desir Allergy Uncoded 03/27/20 14:38 - Home Medications Home Medications: Ambulatory Orders Acetaminophen [Tylenol .Regular Strength -] 650 mg PO Q6H PRN tablet 09/25/19 Alcohol Antiseptic Pads [Alcohol Prep Pad] 1 each TP TID #1 box 10/04/19 Amlodipine Besylate [Norvasc -] 10 mg PO DAILY #90 tablet 10/04/19 Atorvastatin Ca [Lipitor] 40 mg PO HS #90 tablet 10/04/19 Insulin Sliding Scale [Novolog Vial Sliding Scale -] 2 units SQ ACHS #7 pen 10/04/19 Labetalol HCl [Normodyne -] 200 mg PO TID #120 tablet 10/04/19 Levothyroxine [Synthroid -] 50 mcg PO DAILY #90 tablet 10/04/19 Paroxetine HCl [Paxil] 40 mg PO DAILY #90 tablet 10/04/19 Pen Needle, Diabetic, Safety [Assure Id Pen Needle] [address] [facility] #100 dis.needle 10/04/19 Clonazepam [Klonopin] 2 mg PO HS 03/25/20 Review of Systems - Review of Systems Constitutional: reports: Weakness Eyes: reports: No Symptoms HENT: reports: No Symptoms Neck: reports: No Symptoms Cardiovascular: reports: No Symptoms Respiratory: reports: No Symptoms Gastrointestinal: reports: No Symptoms Musculoskeletal: reports: No Symptoms Neurological: reports: No Symptoms Endocrine: reports: No Symptoms Physical Exam Vital Signs: Vital Signs Temperature 97.9 F 03/27/20 14:00 Pulse Rate 84 03/27/20 14:00 Respiratory Rate 18 03/27/20 14:00 Blood Pressure 116/62 03/27/20 14:00 O2 Sat by Pulse Oximetry (%) 97 03/27/20 14:00 Constitutional: Yes: No Distress, Calm Eyes: Yes: Conjunctiva Clear, EOM Intact HENT: Yes: Atraumatic, Normocephalic Neck: Yes: Supple, Trachea Midline Cardiovascular: Yes: Regular Rate and Rhythm Respiratory: Yes: Regular, CTA Bilaterally Gastrointestinal: Yes: Normal Bowel Sounds Extremities: Yes: WNL Edema: No Neurological: Yes: Alert, Oriented Labs: CBC, BMP 03/27/20 10:08 03/27/20 10:08 Assessment/Plan Hypothyroidism: TSH 77.1 FT4 0.89 ESRD on HD (MWF) COPD CHF HLD T2DM Thyroid cancer S/P resection Anemia Rec: D/C IV Synthroid Start Levothyroxine 200mcg starting tomorrow AM Taper Hydrocortisone 50mg IV Q 8hr, Taper to d/c over 4 to 5 days if vitals remain stable. HD per Renal Monitor Blood sugar Novolog coverage as necessary Check A1c, last visit in 09/2019 was 6.6 in [facility] as necessary
[2020-03-27] MEDS ORDERED: SODIUM CHLORIDE 250 ML IV PRN (15:03)
--- NOTE | 2020-03-27 15:03 | PN ---
Progress Note, Physician History of Present Illness: Pt seen and examined at bedside. She is awake and alert. - Current Medication List Current Medications: Active Medications Albuterol Sulfate (Ventolin Hfa Inhaler -) 2 puff IH RQID [facility] Last Admin: 03/27/20 12:09 Dose: 2 puff Documented by: Albuterol/Ipratropium (Duoneb -) 1 amp NEB Q6H [facility] Amlodipine Besylate (Norvasc -) 10 mg PO DAILY [facility] Last Admin: 03/27/20 09:36 Dose: 10 mg Documented by: Atorvastatin Calcium (Lipitor -) 40 mg PO HS [facility] Chlorhexidine Gluconate (Hibiclens For Decolonization -) 1 applic TP HS [facility] Last Admin: 03/26/20 21:20 Dose: 1 applic Documented by: Heparin Sodium (Porcine) (Heparin -) 5,000 unit SQ TID [facility] Last Admin: 03/27/20 05:36 Dose: 5,000 unit Documented by: Hydrocortisone Sodium Succinate (Solu-Cortef -) 100 mg IVPUSH Q8H [facility] Last Admin: 03/27/20 12:09 Dose: 100 mg Documented by: Sodium Chloride (Normal Saline -) 250 mls @ 3,000 mls/hr IV PRN PRN PRN Reason: Hypotension during Dialysis Stop: 03/27/20 07:26 Nicardipine HCl 100 mg/ (Dextrose) 1,000 mls @ 25 mls/hr IV TITR [facility]; Protocol Last Titration: 03/27/20 07:00 Dose: 7.5 mg/hr, 75 mls/hr Documented by: Insulin Aspart (Novolog Vial Sliding Scale -) 1 vial SQ ACHS [facility]; Protocol Last Admin: 03/27/20 12:07 Dose: 2 units Documented by: Labetalol HCl (Normodyne -) 200 mg PO TID [facility] Levothyroxine Sodium (Synthroid Injection -) 100 mcg IVPUSH DAILY [facility] Last Admin: 03/27/20 09:36 Dose: 100 mcg Documented by: Mupirocin (Bactroban Ointment (For Decolonization) -) 1 applic NS BID [facility] Stop: 03/30/20 21:59 Last Admin: 03/27/20 09:41 Dose: 1 applic Documented by: Ondansetron HCl (Zofran Injection) 4 mg IVPUSH Q6H PRN PRN Reason: NAUSEA Pantoprazole Sodium (Protonix -) 40 mg PO DAILY [facility] Last Admin: 03/27/20 09:36 Dose: 40 mg Documented by: Paroxetine HCl (Paxil -) 40 mg PO DAILY [facility] Last Admin: 03/27/20 09:36 Dose: 40 mg Documented by: - Objective Vital Signs: Vital Signs Temperature 97.9 F 03/27/20 14:00 Pulse Rate 84 03/27/20 14:00 Respiratory Rate 18 03/27/20 14:00 Blood Pressure 116/62 03/27/20 14:00 O2 Sat by Pulse Oximetry (%) 97 03/27/20 14:00 Constitutional: Yes: Calm Eyes: Yes: Conjunctiva Clear HENT: Yes: Atraumatic Neck: Yes: Supple Cardiovascular: Yes: S1, S2 Respiratory: Yes: CTA Bilaterally Gastrointestinal: Yes: Soft Genitourinary: Yes: WNL Musculoskeletal: Yes: WNL Edema: No Neurological: Yes: Oriented Psychiatric: Yes: Oriented Labs: CBC, BMP 03/27/20 10:08 03/27/20 10:08 INR, PTT INR 1.03 (0.83-1.09) 03/26/20 05:52 Problem List - Problems (1) ESRD (end stage renal disease) Code(s): N18.6 - END STAGE RENAL DISEASE Assessment/Plan Current Medications Generic Name Dose Route Start Last Admin Trade Name Freq PRN Reason Stop Dose Admin Albuterol Sulfate 2 puff 03/25/20 21:30 03/27/20 12:09 Ventolin Hfa Inhaler - IH 2 puff RQID [facility] Administration Albuterol/Ipratropium 1 amp 03/25/20 20:30 Duoneb - NEB Q6H [facility]OE Amlodipine Besylate 10 mg 03/27/20 10:00 03/27/20 09:36 Norvasc - PO 10 mg DAILY ZOE Administration Atorvastatin Calcium 40 mg 03/27/20 22:00 Lipitor - PO HS ZOE Chlorhexidine Gluconate 1 applic 03/25/20 22:00 03/26/20 21:20 Hibiclens For Decolonization - TP 1 applic HS ZOE Administration Heparin Sodium (Porcine) 5,000 unit 03/25/20 22:00 03/27/20 05:36 Heparin - SQ 5,000 unit TID ZOE Administration Hydrocortisone Sodium Succinate 100 mg 03/25/20 21:00 03/27/20 12:09 Solu-Cortef - IVPUSH 100 mg Q8H [facility]OE Administration Sodium Chloride 250 mls @ 3,000 mls/hr 03/26/20 07:26 Normal Saline - IV 03/27/20 07:26 PRN PRN Hypotension during Dialysis Nicardipine HCl 100 mg/ 1,000 mls @ 25 mls/hr 03/26/20 23:18 03/27/20 07:00 Dextrose IV 7.5 mg/hr TITR ZOE 75 mls/hr Titration Protocol 2.5 MG/HR Insulin Aspart 1 vial 03/25/20 22:00 03/27/20 12:07 Novolog Vial Sliding Scale - SQ 2 units ACHS ZOE Administration Protocol Labetalol HCl 200 mg 03/27/20 14:00 Normodyne - PO TID ZOE Levothyroxine Sodium 100 mcg 03/26/20 05:57 03/27/20 09:36 Synthroid Injection - IVPUSH 100 mcg DAILY [facility] Administration Mupirocin 1 applic 03/25/20 22:00 03/27/20 09:41 Bactroban Ointment (For Decolonization) - NS 03/30/20 21:59 1 applic BID [facility]OE Administration Ondansetron HCl 4 mg 03/26/20 11:49 Zofran Injection IVPUSH Q6H PRN NAUSEA Pantoprazole Sodium 40 mg 03/26/20 14:00 03/27/20 09:36 Protonix - PO 40 mg DAILY [facility] Administration Paroxetine HCl 40 mg 03/27/20 10:00 03/27/20 09:36 Paxil - PO 40 mg DAILY [facility] Administration Impression 1. ESRD 2. missed HD 3. copd 4. hypothyroidism 5. hep B 6. anemia 7. DM 8. hypertension Plan - HD tomorrow - mental status stable - bp improving - discussed compliance - vascular follow up - discussed with ICU team
[2020-03-27] MEDS: NIFEdipine E.R 60 MG TABLET PO SCH (17:32)
--- NOTE | 2020-03-27 18:15 | PN ---
Physical Exam: SUBJECTIVE: Patient seen and examined. Overnight, pt was weaned off cardene drip and restarted on PO meds. Pt complained of feeling somnolent despite "sleeping all day yesterday". However, stated that she was feeling better after receiving dialysis. Pt denied chest pain, shortness of breath, fevers, chills, abdominal pain. OBJECTIVE: Vital Signs Period Temp Pulse Resp BP Sys/Amos Pulse Ox Last 24 Hr 97.8 F-99.0 F 72-91 14-24 116-179/62-91 89-99 GENERAL: The patient is awake, alert, and fully oriented, in no acute distress. HEENT: NCAT. LUNGS: Breath sounds equal, clear to auscultation bilaterally HEART: Regular rate and rhythm, S1, S2 without murmur ABDOMEN: Obese, soft, nontender, bowel sounds present. EXTREMITIES: warm, well-perfused, no edema. SKIN: Warm, dry Laboratory Last Values WBC 8.6 K/mm3 (4.0-10.0) 03/27/20 10:08 RBC 4.05 M/mm3 (3.60-5.2) 03/27/20 10:08 Hgb 12.2 GM/dL (10.7-15.3) 03/27/20 10:08 Hct 36.3 % (32.4-45.2) D 03/27/20 10:08 MCV 89.5 fl (80-96) 03/27/20 10:08 MCH 30.1 pg (25.7-33.7) 03/27/20 10:08 MCHC 33.6 g/dl (32.0-36.0) 03/27/20 10:08 RDW 15.4 % (11.6-15.6) 03/27/20 10:08 Plt Count 251 K/MM3 (134-434) 03/27/20 10:08 MPV 9.2 fl (7.5-11.1) D 03/27/20 10:08 Absolute Neuts (auto) 7.5 K/mm3 (1.5-8.0) 03/27/20 10:08 Neutrophils % 87.5 % (42.8-82.8) H D 03/27/20 10:08 Lymphocytes % 11.7 % (8-40) D 03/27/20 10:08 Monocytes % 0.7 % (3.8-10.2) L D 03/27/20 10:08 Eosinophils % 0.0 % (0-4.5) 03/27/20 10:08 Basophils % 0.1 % (0-2.0) 03/27/20 10:08 Nucleated RBC % 0 % (0-0) 03/27/20 10:08 PT with INR 12.20 SEC (9.7-13.0) 03/26/20 05:52 INR 1.03 (0.83-1.09) 03/26/20 05:52 PTT (Actin FS) 36.9 SECONDS (25.2-36.5) H 03/26/20 05:52 Anticoagulation Therapy No Result Required. 03/25/20 14:52 Puncture Site No Result Required. 03/25/20 14:52 Patient Temperature No Result Required. 03/25/20 14:52 ABG pH 7.318 (7.350-7.450) L 03/25/20 14:52 ABG pCO2 37.60 mmHg (35-45) 03/25/20 14:52 ABG pO2 110.5 mmHg (80-100) H 03/25/20 14:52 ABG HCO3 18.9 mmol/L (22-27) L 03/25/20 14:52 ABG O2 Sat (Measured) 97.7 mmHg (95-98) 03/25/20 14:52 ABG O2 Content No Result Required. 03/25/20 14:52 ABG Base Excess -6.6 mmol/L (-2-2) L 03/25/20 14:52 Sky Test No Result Required. 03/25/20 14:52 Patient On Oxygen No Result Required. 03/25/20 14:52 O2 Delivery Device No Result Required. 03/25/20 14:52 Oxygen Flow Rate No Result Required. 03/25/20 14:52 Vent Mode No Result Required. 03/25/20 14:52 Vent Rate No Result Required. 03/25/20 14:52 Mechanical Rate No Result Required. 03/25/20 14:52 PEEP No Result Required. 03/25/20 14:52 Pressure Support Vent No Result Required. 03/25/20 14:52 Sodium 131 mmol/L (136-145) L 03/27/20 10:08 Potassium 4.0 mmol/L (3.5-5.1) 03/27/20 10:08 Chloride 94 mmol/L (98-107) L 03/27/20 10:08 Carbon Dioxide 25 mmol/L (21-32) 03/27/20 10:08 Anion Gap 12 MMOL/L (8-16) 03/27/20 10:08 BUN 55.9 mg/dL (7-18) H 03/27/20 10:08 Creatinine 6.9 mg/dL (0.55-1.3) H 03/27/20 10:08 Est GFR (CKD-EPI)AfAm 7.21 03/27/20 10:08 Est GFR (CKD-EPI)NonAf 6.22 03/27/20 10:08 POC Glucometer 233 UNITS (80-120) 03/27/20 17:01 Random Glucose 241 mg/dL (74-106) H 03/27/20 10:08 Calcium 8.1 mg/dL (8.5-10.1) L 03/27/20 10:08 Phosphorus 5.0 mg/dL (2.5-4.9) H 03/27/20 10:08 Magnesium 1.9 mg/dL (1.8-2.4) 03/27/20 10:08 Total Bilirubin 0.4 mg/dL (0.2-1) 03/27/20 10:08 AST 22 U/L (15-37) 03/27/20 10:08 ALT 35 U/L (13-61) 03/27/20 10:08 Alkaline Phosphatase 193 U/L (45-117) H 03/27/20 10:08 Creatine Kinase 379 U/L (26-192) H 03/25/20 21:45 Creatine Kinase Index 1.3 % (0.0-5.0) 03/25/20 21:45 CK-MB (CK-2) 5.1 ng/mL (0.5-3.6) H 03/25/20 21:45 Troponin I < 0.02 ng/ml (0.00-0.05) 03/25/20 21:45 Total Protein 7.8 g/dl (6.4-8.2) 03/27/20 10:08 Albumin 3.0 g/dl (3.4-5.0) L 03/27/20 10:08 TSH 77.10 uIU/ml (0.358-3.74) H 03/25/20 16:05 Free T4 0.89 ng/dl (0.76-1.46) 03/25/20 16:05 Urine Color Yellow 03/25/20 16:30 Urine Appearance Cloudy 03/25/20 16:30 Urine pH 5.5 (5.0-8.0) 03/25/20 16:30 Ur Specific Hammond 1.018 (1.010-1.035) 03/25/20 16:30 Urine Protein 3+ (NEGATIVE) H 03/25/20 16:30 Urine Glucose (UA) 1+ (NEGATIVE) H 03/25/20 16:30 Urine Ketones Negative (NEGATIVE) 03/25/20 16:30 Urine Blood 2+ (NEGATIVE) H 03/25/20 16:30 Urine Nitrite Negative (NEGATIVE) 03/25/20 16:30 Urine Bilirubin Negative (NEGATIVE) 03/25/20 16:30 Urine Urobilinogen 0.2 mg/dL (0.2-1.0) 03/25/20 16:30 Ur Leukocyte Esterase Negative (NEGATIVE) 03/25/20 16:30 Urine WBC (Auto) 36 /uL (0-25.8) 03/25/20 16:30 Urine RBC (Auto) 29 /uL (0-23.9) 03/25/20 16:30 Urine Casts (Auto) 1 /uL (0-3.1) 03/25/20 16:30 U Epithel Cells (Auto) >36 /uL (0-25.1) 03/25/20 16:30 Urine Bacteria (Auto) 2181 /uL (0-1359) 03/25/20 16:30 COVID-19 (MARIAMA) Not detected (Not Detected) 03/25/20 17:40 Blood Type O POSITIVE 03/26/20 05:52 Antibody Screen Negative 03/26/20 05:52 Active Medications Albuterol/Ipratropium (Duoneb -) 1 amp NEB RQID [facility] Amlodipine Besylate (Norvasc -) 10 mg PO DAILY [facility] Last Admin: 03/27/20 09:36 Dose: 10 mg Documented by: Atorvastatin Calcium (Lipitor -) 40 mg PO [facility] Chlorhexidine Gluconate (Hibiclens For Decolonization -) 1 applic TP HS [facility] Last Admin: 03/26/20 21:20 Dose: 1 applic Documented by: Heparin Sodium (Porcine) (Heparin -) 5,000 unit SQ TID [facility] Last Admin: 03/27/20 14:54 Dose: 5,000 unit Documented by: Hydrocortisone Sodium Succinate (Solu-Cortef -) 100 mg IVPUSH Q8H [facility] Last Admin: 03/27/20 12:09 Dose: 100 mg Documented by: Sodium Chloride (Normal Saline -) 250 mls @ 3,000 mls/hr IV PRN PRN PRN Reason: Hypotension during Dialysis Stop: 03/28/20 15:03 Insulin Aspart (Novolog Vial Sliding Scale -) 1 vial SQ [facility]; Protocol Last Admin: 03/27/20 17:06 Dose: 4 units Documented by: Labetalol HCl (Normodyne -) 200 mg PO TID [facility] Last Admin: 03/27/20 14:54 Dose: 200 mg Documented by: Levothyroxine Sodium (Synthroid Injection -) 100 mcg IVPUSH DAILY [facility] Last Admin: 03/27/20 09:36 Dose: 100 mcg Documented by: Mupirocin (Bactroban Ointment (For Decolonization) -) 1 applic NS BID [facility] Stop: 03/30/20 21:59 Last Admin: 03/27/20 09:41 Dose: 1 applic Documented by: Nifedipine (Procardia Xl -) 60 mg PO DAILY [facility] Last Admin: 03/27/20 17:32 Dose: 60 mg Documented by: Ondansetron HCl (Zofran Injection) 4 mg IVPUSH Q6H PRN PRN Reason: NAUSEA Pantoprazole Sodium (Protonix -) 40 mg PO DAILY [facility] Last Admin: 03/27/20 09:36 Dose: 40 mg Documented by: Paroxetine HCl (Paxil -) 40 mg PO DAILY [facility] Last Admin: 03/27/20 09:36 Dose: 40 mg Documented by: ASSESSMENT/PLAN: 55 year old female with PMH ESRD (dialysis MWF), COPD(not on home O2), CHF, HLD, IDDM, thyroid cancer, anemia, 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 During interview, pt was lethargic, but arousable. Had to be repeatedly roused for entire interview. Pt stated that because she was "sleepy" and had missed the last 3 sessions of dialysis. The dialysis center rejected her and told her to go to the ED. Pt stated she was compliant with all her medications. Pt also stated that her feelings of fatigue felt different compared to her last hospital admission for myxedema coma. Pt also stated that she had recently recovered from a cold 1 week ago. Pt currently admits to fatigue and cold intolerance. Given pt's history (thyroid cancer, noncompliance with dialysis, cold intolerance, recent infection), physical exam (lethargic, DTR), labs (pH 7.3, elevated BUN/Cr, elevated TSH), head CT (mild-moderate ventriculomegaly, r/o communicating hydrocephalus), pt was evaluated for myxedema coma vs. uremia vs. communicating hydrocephalus vs. AMS due to infectious etiology. Weaned off cardene drip overnight. Resumed home dose HTN medication and monitoring BP. Pt stated that she feels better after receiving dialysis. 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 -MRI shows mild ventricular dilation. Findings due to mild central atrophy & less likely on basis of obstructive hydrocephalus. -Neurosurgery consulted. Does not recommend shunt at this time. -Assess mental status #Cardio Hypertensive urgency vs. emergency vs. hypertensive encephalopathy CHF--not currently in exacerbation -resume home dose norvasc, labetolol --will need med rec. Placed on Nifedepine 60mg. -EKG -trend trop -Discontinued cardene drip. #Pulmonary COPD supplemental O2 to maintain Spo2 88-92% -continue home dose bronchodilators, not currently in exacerbation -will need med rec. Pt should be on LABA/LAMA -ABG does not show COPD retention, however, low threshold to intubate, given mental status. #Renal ESRD on HD Hyperkalemia, improved -missed 3 sessions dialysis, oliguric. -Nephrology consulted. HD tomorrow. -Follow K+ -Vascular surgery consulted. Recommended a new AV graft as a better option to achieve access given her noncompliance. #Endo IDDM Myxedema coma? -case discussed w/ endocrinology Dr. Parker. -Myxedema coma less likely given lack of bradycardia, hypotension or hypothermia, however, concerning, given history and elevated TSH -BGM + ISS ACHS -Dr. Parker consulted. Recommended the following: D/C IV Synthroid Start Levothyroxine 200mcg starting tomorrow AM Taper Hydrocortisone 50mg IV Q 8hr, Taper to d/c over 4 to 5 days if vitals remain stable. Check A1c #ID ?UTI -UA suggestive of UTI. However, lack of leukocytosis and afebrile. -Will hold off antibiotics #FEN -NS -Renal/sodium diet #PPx -GI: protonix -DVT: SQH Dispo: will continue to monitor in ICU Visit type - Emergency Visit Emergency Visit: Yes ED Registration Date: 03/25/20 Care time: The patient presented to the Emergency Department on the above date and was hospitalized for further evaluation of their emergent condition. - New Patient This patient is new to me today: No - Critical Care Critical Care patient: Yes Total Critical Care Time (in minutes): 36 Critical Care Statement: The care of this patient involved high complexity decision making to prevent further life threatening deterioration of the patient's condition and/or to evaluate & treat vital organ system(s) failure or risk of failure. ATTENDING PHYSICIAN STATEMENT I saw and evaluated the patient. I reviewed the resident's note and discussed the case with the resident. I agree with the resident's findings and plan as documented. SUBJECTIVE: OBJECTIVE: ASSESSMENT AND PLAN:
[2020-03-27] MEDS: HYDROCORTISONE SOD SUCCINATE 100 MG/2 ML VIAL IVPB SCH (21:06)
[2020-03-27] MEDS: ATORVASTATIN CA 40 MG TABLET (FP) PO SCH (21:08)
[2020-03-27] MEDS: LABETALOL HCL 100 MG TABLET (FP) PO SCH (21:08)
[2020-03-27] MEDS: CHLORHEXIDINE GLUCONATE 4% CLEANSER FOR DECOLONIZATION TP SCH (21:08)
[2020-03-28] MEDS: HYDROCORTISONE SOD SUCCINATE 100 MG/2 ML VIAL IVPB SCH ×3 (01:46→18:20)
[2020-03-28] MEDS ORDERED: PT OWN MED DRAWER 7, Y5N ONE (04:51)
[2020-03-28] MEDS: LABETALOL HCL 100 MG TABLET (FP) PO SCH ×3 (05:11→22:10)
[2020-03-28] MEDS: HEPARIN NA (PORCINE) 5,000 UNITS/ML 1ML VIAL SQ SCH ×3 (05:11→22:10)
[2020-03-28] MEDS: LEVOTHYROXINE NA 200 MCG TABLET PO SCH (06:01)
[2020-03-28] MEDS: INSULIN SLIDING SCALE (NOVOLOG) 1 VIAL SQ SCH ×4 (06:20→22:11)
[2020-03-28 07:23] LABS: BASO % 0.1 % (0-2.0); HEMATOCRIT 30.2 % (32.4-45.2); LYMPH % 26.6 % (8-40); MCH 29.8 pg (25.7-33.7); MCHC 33.1 g/dl (32.0-36.0); MEAN PLT VOLUME 9.3 fl (7.5-11.1); MONO % 3.1 % (3.8-10.2); NEUT % 70.2 % (42.8-82.8); PLATELET COUNT 256 K/MM3 (134-434); RBC 3.35 M/mm3 (3.60-5.2); RDW 15.5 % (11.6-15.6)
[2020-03-28 07:55] LABS: ALBUMIN 2.8 g/dl (3.4-5.0); BLOOD UREA NITROGEN 71.1 mg/dL (7-18); MAGNESIUM 1.9 mg/dL (1.8-2.4); POTASSIUM 4.2 mmol/L (3.5-5.1)
[2020-03-28 08:00] LABS: BILIRUBIN,TOTAL 0.4 mg/dL (0.2-1)
[2020-03-28] MEDS: ALBUTEROL SO4 2.5/IPRATROPIUM 0.5 INH SOL 3 ML VIAL.NEB. NEB SCH ×4 (08:20→20:45)
[2020-03-28] MEDS: amLODIPine BESYLATE 10 MG TABLET (FP) PO SCH (09:49)
[2020-03-28] MEDS: MUPIROCIN 2% TOPICAL OINTMENT FOR DECOLONIZATION NS SCH ×2 (09:49→22:09)
[2020-03-28] MEDS: PARoxetine HCL 20 MG TABLET PO SCH (09:50)
[2020-03-28] MEDS: PANTOPRAZOLE 40 MG TABLET PO SCH (09:50)
[2020-03-28] MEDS: NIFEdipine E.R 60 MG TABLET PO SCH (09:54)
--- NOTE | 2020-03-28 11:27 | PN ---
Physical Exam: Transfer Summary of ICU Care: Pt admitted to the ICU for an altered mental status vs somnolence likely secondary to uremia in the setting of several missed outpatient hemodialysis runs. Dr. Fields of nephrology service was consulted and initiated HD the next day. The pts TSH was elevated but the T4 was normal. Pt was hypertensive, normocardic, and normothermic on arrival to the emergency department. However given the h/o myxedema coma seven months ago, the pt was started on IV Synthroid and Hydrocortisone. Dr. Parker of endocrine service was consulted and recommended transitioning to PO Synthroid and to begin a taper of the hydrocortisone. The pt was found to be hypertensive in excess of 200 systolic on arrival. She was started on a nitroglycerine drip then transitioned first to a Nicardipine drip then to PO Labetalol and Nifedipine ER at previously prescribed home doses. Her mental status improved over the course of ICU days two and three. Of note, the pt has poor clinic follow up with vascular surgery. Dr. Lentz evaluated the pts AVF and recommended either multiple ballon venoplasty versus creation of a new AV graft. Pts observed sleeping pattern while in the ICU was concerning for likely obstructive sleep apnea. The pts reported observing the pt frequently stop breathing while sleeping at home. Pt should be evaluated further in an outpatient sleep clinic. Tolerated CPAP while sleeping. Pt requested outpatient neurology clinic referral for self-reported history of migraines. Daily Progress Note: ICU Day# 3 Overnight Events: Pt seen and evaluated. Reports mild headache overnight. Would like neurology referral for history of migraines. BP maintained at goal on PO medications. OBJECTIVE: Supplemental Oxygen: CPAP at night. Room air while awake. Physical Exams: GENERAL: The patient is awake, alert, and fully oriented, in no acute distress. HEAD: Normal with no signs of trauma. NECK: Trachea midline, supple. LUNGS: Breath sounds equal, clear to auscultation bilaterally, no wheezes, no crackles, no accessory muscle use. HEART: Regular rate and rhythm, no murmur, rub or gallop. ABDOMEN: Soft, nontender, nondistended EXTREMITIES: Warm, well-perfused NEUROLOGICAL: A/o x4. Normal speech, gait not observed. Moving all four extremities spontaneously. PSYCH: Normal mood, normal affect. SKIN: Warm and dry. Drips: None Anti Infectives: None Culture Data: Blood Cultures: NGTD Urine Culture: Contaminated. ASSESSMENT / PLAN: 55 year old female with PMH ESRD, COPD, CHF, HLD, IDDM, thyroid cancer, anemia, h/o myxedema coma admitted to the ICU for altered mental status suspected to be secondary to uremia (nonadherence to scheduled outpatient HD) versus hypertensive emergency versus myxedema coma. #Neuro - Now A/O x4. #Cardio - Transitioned to PO antihypertensives with maintenance of BPs within goal range <140/90 #Pulmonary - H/o COPD. Bronchodilators as needed. Supplemental O2 to maintain Spo2 <88% - Suspect likely ANGELIQUE. Continue CPAP at night. Recommend formal sleep behavioral study as outpatient. #Renal - ESRD on HD, scheduled for run today. -Vascular surgery consulted. Recommended a new AV graft as a better option to achieve access given her noncompliance. #Endo - H/o IDDM: BGM + ISS ACHS - Elevated TSH: possible resolving Myxedema coma. Transitioned from IV to PO Synthroid. Will begin Hydrocortisone taper over next 5 days. #FEN -Renal/sodium diet #PPx -GI: Protonix -DVT: SQH Dispo: Pt no longer requires ICU level monitoring. Transfer order entered for Med/Surg. Microblog sent to [facility] Admitting Service at 09:35 on 03/28/2020; awaiting Hospitalist Attending name. Case discussed with ICU Attending Dr. Kilpatrick. Chris Álvarez M.D., PGY3 ICU Service 28 March 2020 Please Microblog ICU Residents On-Duty with any questions. Visit type - Emergency Visit Emergency Visit: Yes ED Registration Date: 03/25/20 Care time: The patient presented to the Emergency Department on the above date and was hospitalized for further evaluation of their emergent condition. - New Patient This patient is new to me today: Yes Date on this admission: 03/28/20 - Critical Care Critical Care patient: Yes Total Critical Care Time (in minutes): 60 Critical Care Statement: The care of this patient involved high complexity decision making to prevent further life threatening deterioration of the patient's condition and/or to evaluate & treat vital organ system(s) failure or risk of failure.
--- NOTE | 2020-03-28 13:26 | PN ---
Teaching Attending Note Name of Resident: Chris Álvarez ATTENDING PHYSICIAN STATEMENT I saw and evaluated the patient. I reviewed the resident's note and discussed the case with the resident. I agree with the resident's findings and plan as documented. SUBJECTIVE: Patient seen and examined in the ICU. Awake and alert. Denies CP or SOB. No acute events overnight. Intake & Output 03/25/20 03/26/20 03/27/20 03/28/20 23:59 23:59 23:59 23:59 Intake Total 30 730 1837 Output Total 1350 450 Balance 30 -620 1387 Weight 237 lb 14.06 oz 107 lb 14.4 oz 237 lb 246 lb 0.574 oz Last Vital Signs Temp Pulse Resp BP Pulse Ox 99.0 F 70 15 128/56 L 95 03/28/20 12:00 03/28/20 12:00 03/28/20 12:00 03/28/20 12:00 03/28/20 09:00 Active Medications Albuterol/Ipratropium (Duoneb -) 1 amp NEB RQID [facility] Last Admin: 03/28/20 08:20 Dose: 1 amp Documented by: Amlodipine Besylate (Norvasc -) 10 mg PO DAILY [facility] Last Admin: 03/28/20 09:49 Dose: 10 mg Documented by: Atorvastatin Calcium (Lipitor -) 40 mg PO HS [facility] Last Admin: 03/27/20 21:08 Dose: Not Given Documented by: Chlorhexidine Gluconate (Hibiclens For Decolonization -) 1 applic TP HS [facility] Last Admin: 03/27/20 21:08 Dose: 1 applic Documented by: Heparin Sodium (Porcine) (Heparin -) 5,000 unit SQ TID [facility] Last Admin: 03/28/20 05:11 Dose: 5,000 unit Documented by: Hydrocortisone Sodium Succinate (Solu-Cortef -) 50 mg IVPB Q8H-IV [facility] Last Admin: 03/28/20 09:51 Dose: 50 mg Documented by: Sodium Chloride (Normal Saline -) 250 mls @ 3,000 mls/hr IV PRN PRN PRN Reason: Hypotension during Dialysis Stop: 03/28/20 15:03 Insulin Aspart (Novolog Vial Sliding Scale -) 1 vial SQ ACHS [facility]; Protocol Last Admin: 03/28/20 11:54 Dose: 4 units Documented by: Labetalol HCl (Normodyne -) 100 mg PO TID [facility] Last Admin: 03/28/20 05:11 Dose: 100 mg Documented by: Levothyroxine Sodium (Synthroid -) 200 mcg PO DAILY@0700 [facility] Last Admin: 03/28/20 06:01 Dose: 200 mcg Documented by: Mupirocin (Bactroban Ointment (For Decolonization) -) 1 applic NS BID [facility] Stop: 03/30/20 21:59 Last Admin: 03/28/20 09:49 Dose: 1 applic Documented by: Nifedipine (Procardia Xl -) 60 mg PO DAILY [facility] Last Admin: 03/28/20 09:54 Dose: 60 mg Documented by: Ondansetron HCl (Zofran Injection) 4 mg IVPUSH Q6H PRN PRN Reason: NAUSEA Pantoprazole Sodium (Protonix -) 40 mg PO DAILY [facility] Last Admin: 03/28/20 09:50 Dose: 40 mg Documented by: Paroxetine HCl (Paxil -) 40 mg PO DAILY [facility] Last Admin: 03/28/20 09:50 Dose: 40 mg Documented by: GENERAL: Awake and alert HEENT: NCAT LUNGS: clear to auscultation b/l, no wheezes. HEART: regular rate and rhythm, +S1/S2. No murmurs ABDOMEN: Obese. Soft, non-distended, non-tender to palpation. Normoactive bowel sounds NEURO: Non-focal Laboratory Results - last 24 hr 03/25/20 03/27/20 03/27/20 17:40 17:01 20:56 WBC RBC Hgb Hct MCV MCH MCHC RDW Plt Count MPV Absolute Neuts (auto) Neutrophils % Lymphocytes % Monocytes % Eosinophils % Basophils % Nucleated RBC % Sodium Potassium Chloride Carbon Dioxide Anion Gap BUN Creatinine Est GFR (CKD-EPI)AfAm Est GFR (CKD-EPI)NonAf POC Glucometer 233 173 Random Glucose Hemoglobin A1c % Calcium Phosphorus Magnesium Total Bilirubin AST ALT Alkaline Phosphatase Total Protein Albumin COVID-19 ([facility]) Not detected 03/28/20 03/28/20 03/28/20 05:42 05:42 05:42 WBC 10.0 RBC 3.35 L Hgb 10.0 L Hct 30.2 L D MCV 90.0 MCH 29.8 MCHC 33.1 RDW 15.5 Plt Count 256 MPV 9.3 Absolute Neuts (auto) 7.0 Neutrophils % 70.2 Lymphocytes % 26.6 D Monocytes % 3.1 L D Eosinophils % 0.0 Basophils % 0.1 Nucleated RBC % 0 Sodium 133 L Potassium 4.2 Chloride 96 L Carbon Dioxide 22 Anion Gap 15 BUN 71.1 H Creatinine 8.0 H* Est GFR (CKD-EPI)AfAm 6.03 Est GFR (CKD-EPI)NonAf 5.20 POC Glucometer Random Glucose 198 H Hemoglobin A1c % 7.4 H Calcium 8.0 L Phosphorus 6.0 H Magnesium 1.9 Total Bilirubin 0.4 AST 17 ALT 28 Alkaline Phosphatase 169 H Total Protein 7.0 Albumin 2.8 L COVID-19 (MARIAMA) 03/28/20 03/28/20 06:19 11:34 WBC RBC Hgb Hct MCV MCH MCHC RDW Plt Count MPV Absolute Neuts (auto) Neutrophils % Lymphocytes % Monocytes % Eosinophils % Basophils % Nucleated RBC % Sodium Potassium Chloride Carbon Dioxide Anion Gap BUN Creatinine Est GFR (CKD-EPI)AfAm Est GFR (CKD-EPI)NonAf POC Glucometer 199 211 Random Glucose Hemoglobin A1c % Calcium Phosphorus Magnesium Total Bilirubin AST ALT Alkaline Phosphatase Total Protein Albumin COVID-19 ([facility]) ASSESSMENT/PLAN: Resolving Myxedema Coma ESRD on HD (MWF) COPD CHF HLD IDDM Thyroid cancer S/P resection Anemia Accelerated HTN Likely OSAS PO Synthroid Wean Hydrocortisone over next 5 days HD per Renal BD TX PRN Will need formal SBD evaluation after DC Dr Alonso
--- NOTE | 2020-03-28 15:18 | PN ---
Progress Note (short form) - Note Progress Note: 1. ESRD 2. missed HD 3. copd 4. hypothyroidism 5. hep B 6. anemia 7. DM 8. hypertension Active Medications Albuterol/Ipratropium (Duoneb -) 1 amp NEB RQID [facility] Last Admin: 03/28/20 12:10 Dose: 1 amp Documented by: Amlodipine Besylate (Norvasc -) 10 mg PO DAILY [facility] Last Admin: 03/28/20 09:49 Dose: 10 mg Documented by: Atorvastatin Calcium (Lipitor -) 40 mg PO [facility] Last Admin: 03/27/20 21:08 Dose: Not Given Documented by: Chlorhexidine Gluconate (Hibiclens For Decolonization -) 1 applic TP [facility] Last Admin: 03/27/20 21:08 Dose: 1 applic Documented by: Heparin Sodium (Porcine) (Heparin -) 5,000 unit SQ TID [facility] Last Admin: 03/28/20 13:42 Dose: 5,000 unit Documented by: Hydrocortisone Sodium Succinate (Solu-Cortef -) 50 mg IVPB Q8H-IV [facility] Last Admin: 03/28/20 09:51 Dose: 50 mg Documented by: Sodium Chloride (Normal Saline -) 250 mls @ 3,000 mls/hr IV PRN PRN PRN Reason: Hypotension during Dialysis Stop: 03/28/20 15:03 Insulin Aspart (Novolog Vial Sliding Scale -) 1 vial SQ ACHS [facility]; Protocol Last Admin: 03/28/20 11:54 Dose: 4 units Documented by: Labetalol HCl (Normodyne -) 100 mg PO TID [facility] Last Admin: 03/28/20 13:42 Dose: 100 mg Documented by: Levothyroxine Sodium (Synthroid -) 200 mcg PO DAILY@0700 [facility] Last Admin: 03/28/20 06:01 Dose: 200 mcg Documented by: Mupirocin (Bactroban Ointment (For Decolonization) -) 1 applic NS BID [facility] Stop: 03/30/20 21:59 Last Admin: 03/28/20 09:49 Dose: 1 applic Documented by: Nifedipine (Procardia Xl -) 60 mg PO DAILY [facility] Last Admin: 03/28/20 09:54 Dose: 60 mg Documented by: Ondansetron HCl (Zofran Injection) 4 mg IVPUSH Q6H PRN PRN Reason: NAUSEA Pantoprazole Sodium (Protonix -) 40 mg PO DAILY [facility] Last Admin: 03/28/20 09:50 Dose: 40 mg Documented by: Paroxetine HCl (Paxil -) 40 mg PO DAILY [facility] Last Admin: 03/28/20 09:50 Dose: 40 mg Documented by: Last Vital Signs Temp Pulse Resp BP Pulse Ox 99.0 F 74 15 121/60 95 03/28/20 12:00 03/28/20 14:00 03/28/20 12:00 03/28/20 14:00 03/28/20 09:00 CBC, BMP 03/28/20 05:42 03/28/20 05:42 ESRD for HD later Plan- f/u after HD
[2020-03-28] MEDS: ATORVASTATIN CA 40 MG TABLET (FP) PO SCH (22:10)
[2020-03-28] MEDS: CHLORHEXIDINE GLUCONATE 4% CLEANSER FOR DECOLONIZATION TP SCH (22:10)
[2020-03-29] MEDS: LABETALOL HCL 100 MG TABLET (FP) PO SCH ×3 (05:53→21:17)
[2020-03-29] MEDS: HEPARIN NA (PORCINE) 5,000 UNITS/ML 1ML VIAL SQ SCH ×3 (05:53→21:17)
[2020-03-29] MEDS: LEVOTHYROXINE NA 200 MCG TABLET PO SCH (06:09)
[2020-03-29] MEDS: INSULIN SLIDING SCALE (NOVOLOG) 1 VIAL SQ SCH ×4 (06:12→21:26)
[2020-03-29] MEDS: ALBUTEROL SO4 2.5/IPRATROPIUM 0.5 INH SOL 3 ML VIAL.NEB. NEB SCH ×4 (08:15→19:30)
[2020-03-29] MEDS: HYDROCORTISONE SOD SUCCINATE 100 MG/2 ML VIAL IVPUSH SCH ×2 (08:38→16:18)
[2020-03-29] MEDS: PARoxetine HCL 20 MG TABLET PO SCH (09:39)
[2020-03-29] MEDS: PANTOPRAZOLE 40 MG TABLET PO SCH (09:39)
[2020-03-29] MEDS: NIFEdipine E.R 60 MG TABLET PO SCH (09:39)
[2020-03-29] MEDS: amLODIPine BESYLATE 10 MG TABLET (FP) PO SCH (09:40)
[2020-03-29] MEDS: MUPIROCIN 2% TOPICAL OINTMENT FOR DECOLONIZATION NS SCH ×2 (09:41→21:17)
--- NOTE | 2020-03-29 10:59 | PN ---
Physical Exam: SUBJECTIVE: Patient seen and examined. No acute events reported overnight. Patient denies any pain this morning. OBJECTIVE: Vital Signs Period Temp Pulse Resp BP Sys/Amos Pulse Ox Last 24 Hr 97.4 F-99.0 F 64-75 14-22 79-156/41-83 94-95 Physical Exams: GENERAL: The patient is awake, alert, and fully oriented, in no acute distress. HEAD: Normal with no signs of trauma. NECK: Trachea midline, supple. LUNGS: Breath sounds equal, clear to auscultation bilaterally, no wheezes, no crackles, no accessory muscle use. HEART: Regular rate and rhythm, no murmur, rub or gallop. ABDOMEN: Soft, nontender, nondistended. no rebound tenderness or guarding. EXTREMITIES: Warm, well-perfused NEUROLOGICAL: A/o x4. Normal speech, gait not observed. Moving all four extremities spontaneously. PSYCH: Normal mood, normal affect. SKIN: Warm and dry. Laboratory Results - last 24 hr 03/28/20 03/28/20 03/28/20 11:34 17:25 21:55 POC Glucometer 211 229 271 03/29/20 06:10 POC Glucometer 109 Active Medications Generic Name Dose Route Start Last Admin Trade Name Freq PRN Reason Stop Dose Admin Albuterol/Ipratropium 1 amp 03/27/20 20:00 03/28/20 20:45 Duoneb - NEB 1 amp RQID [facility] Administration Amlodipine Besylate 10 mg 03/27/20 10:00 03/29/20 09:40 Norvasc - PO 10 mg DAILY [facility] Administration Atorvastatin Calcium 40 mg 03/27/20 22:00 03/28/20 22:10 Lipitor - PO 40 mg HS [facility] Administration Chlorhexidine Gluconate 1 applic 03/25/20 22:00 03/28/20 22:10 Hibiclens For Decolonization - TP 1 applic HS [facility] Administration Heparin Sodium (Porcine) 5,000 unit 03/25/20 22:00 03/29/20 05:53 Heparin - SQ 5,000 unit TID [facility] Administration Hydrocortisone Sodium Succinate 40 mg 03/29/20 08:00 03/29/20 08:38 Solu-Cortef - IVPUSH 03/30/20 00:01 40 mg Q8H [facility] Administration Hydrocortisone Sodium Succinate 30 mg 03/30/20 08:00 Solu-Cortef - IVPUSH 03/31/20 00:01 Q8H [facility] Hydrocortisone Sodium Succinate 20 mg 03/31/20 08:00 Solu-Cortef - IVPUSH 04/01/20 00:01 Q8H [facility] Hydrocortisone Sodium Succinate 10 mg 04/01/20 08:00 Solu-Cortef - IVPUSH 04/02/20 00:01 Q8H [facility] Sodium Chloride 250 mls @ 3,000 mls/hr 03/27/20 15:03 Normal Saline - IV 03/28/20 15:03 PRN PRN Hypotension during Dialysis Insulin Aspart 1 vial 03/25/20 22:00 03/29/20 06:12 Novolog Vial Sliding Scale - SQ Not Given ACHS [facility] Protocol Labetalol HCl 100 mg 03/27/20 22:00 03/29/20 05:53 Normodyne - PO 100 mg TID [facility] Administration Levothyroxine Sodium 200 mcg 03/28/20 07:00 03/29/20 06:09 Synthroid - PO 200 mcg DAILY@0700 [facility] Administration Mupirocin 1 applic 03/25/20 22:00 03/29/20 09:41 Bactroban Ointment (For Decolonization) - NS 03/30/20 21:59 1 applic BID [facility] Administration Nifedipine 60 mg 03/27/20 17:00 03/29/20 09:39 Procardia Xl - PO 60 mg DAILY [facility] Administration Ondansetron HCl 4 mg 03/26/20 11:49 Zofran Injection IVPUSH Q6H PRN NAUSEA Pantoprazole Sodium 40 mg 03/26/20 14:00 03/29/20 09:39 Protonix - PO 40 mg DAILY [facility] Administration Paroxetine HCl 40 mg 03/27/20 10:00 03/29/20 09:39 Paxil - PO 40 mg DAILY [facility] Administration ASSESSMENT/PLAN: 55 year old female with PMH ESRD, COPD, CHF, HLD, IDDM, thyroid cancer, anemia, h/o myxedema coma admitted to the ICU for altered mental status suspected to be secondary to uremia (nonadherence to scheduled outpatient HD) versus hypertensive emergency versus myxedema coma. #Neuro - Now A/O x4. #Cardio - Transitioned to PO antihypertensives with maintenance of BPs within goal range <140/90 #Pulmonary - H/o COPD. Bronchodilators as needed. Supplemental O2 to maintain Spo2 <88% - Suspect likely ANGELIQUE. Continue CPAP at night. Recommend formal sleep behavioral study as outpatient. #Renal - ESRD on HD, scheduled for run today. -Vascular surgery consulted. Recommended a new AV graft as a better option to achieve access given her noncompliance. #Endo - H/o IDDM: BGM + ISS ACHS - Elevated TSH: possible resolving Myxedema coma. Transitioned from IV to PO Synthroid. Patient is on a Hydrocortisone taper over next 5 days. Patient is currently on Day 2/5 of the taper. #FEN -Renal/sodium diet #PPx -GI: Protonix -DVT: SQH Problem List - Problems (1) ESRD (end stage renal disease) Code(s): N18.6 - END STAGE RENAL DISEASE (2) AMS (altered mental status) Code(s): R41.82 - ALTERED MENTAL STATUS, UNSPECIFIED Visit type - Emergency Visit Emergency Visit: Yes ED Registration Date: 03/25/20 Care time: The patient presented to the Emergency Department on the above date and was hospitalized for further evaluation of their emergent condition. - New Patient This patient is new to me today: Yes Date on this admission: 03/29/20 - Critical Care Critical Care patient: Yes Total Critical Care Time (in minutes): 35 Critical Care Statement: The care of this patient involved high complexity decision making to prevent further life threatening deterioration of the patient's condition and/or to evaluate & treat vital organ system(s) failure or risk of failure. ATTENDING PHYSICIAN STATEMENT I saw and evaluated the patient. I reviewed the resident's note and discussed the case with the resident. I agree with the resident's findings and plan as documented. SUBJECTIVE: OBJECTIVE: ASSESSMENT AND PLAN:
--- NOTE | 2020-03-29 12:13 | PN ---
Progress Note (short form) - Note Progress Note: 1. ESRD 2. missed HD 3. copd 4. hypothyroidism 5. hep B 6. anemia 7. DM 8. hypertension Last Vital Signs Temp Pulse Resp BP Pulse Ox 99.0 F 74 15 121/60 95 03/28/20 12:00 03/28/20 14:00 03/28/20 12:00 03/28/20 14:00 03/28/20 09:00 CBC, BMP 03/28/20 05:42 03/28/20 05:42 ESRD for HD later Plan- continue maintenance dialysis
--- NOTE | 2020-03-29 13:30 | PN ---
Teaching Attending Note Name of Resident: Denys Carr ATTENDING PHYSICIAN STATEMENT I saw and evaluated the patient. I reviewed the resident's note and discussed the case with the resident. I agree with the resident's findings and plan as documented. SUBJECTIVE: Patient seen and examined in the ICU. Awake and alert. Denies CP or SOB. No acute events overnight. Intake & Output 03/26/20 03/27/20 03/28/20 03/29/20 23:59 23:59 23:59 23:59 Intake Total 730 1837 580 400 Output Total 1350 450 Balance -620 1387 580 400 Weight 107 lb 14.4 oz 237 lb 246 lb 0.574 oz 246 lb 4.101 oz Last Vital Signs Temp Pulse Resp BP Pulse Ox 98.9 F 72 17 127/64 95 03/29/20 10:00 03/29/20 12:00 03/29/20 12:00 03/29/20 12:00 03/29/20 10:00 Active Medications Albuterol/Ipratropium (Duoneb -) 1 amp NEB RQID [facility] Last Admin: 03/28/20 20:45 Dose: 1 amp Documented by: Amlodipine Besylate (Norvasc -) 10 mg PO DAILY [facility] Last Admin: 03/29/20 09:40 Dose: 10 mg Documented by: Atorvastatin Calcium (Lipitor -) 40 mg PO [facility] Last Admin: 03/28/20 22:10 Dose: 40 mg Documented by: Chlorhexidine Gluconate (Hibiclens For Decolonization -) 1 applic TP [facility] Last Admin: 03/28/20 22:10 Dose: 1 applic Documented by: Heparin Sodium (Porcine) (Heparin -) 5,000 unit SQ TID [facility] Last Admin: 03/29/20 05:53 Dose: 5,000 unit Documented by: Hydrocortisone Sodium Succinate (Solu-Cortef -) 40 mg IVPUSH Q8H [facility] Stop: 03/30/20 00:01 Last Admin: 03/29/20 08:38 Dose: 40 mg Documented by: Hydrocortisone Sodium Succinate (Solu-Cortef -) 30 mg IVPUSH Q8H [facility] Stop: 03/31/20 00:01 Hydrocortisone Sodium Succinate (Solu-Cortef -) 20 mg IVPUSH Q8H [facility] Stop: 04/01/20 00:01 Hydrocortisone Sodium Succinate (Solu-Cortef -) 10 mg IVPUSH Q8H [facility] Stop: 04/02/20 00:01 Sodium Chloride (Normal Saline -) 250 mls @ 3,000 mls/hr IV PRN PRN PRN Reason: Hypotension during Dialysis Stop: 03/28/20 15:03 Insulin Aspart (Novolog Vial Sliding Scale -) 1 vial SQ ACHS [facility]; Protocol Last Admin: 03/29/20 10:55 Dose: 2 units Documented by: Labetalol HCl (Normodyne -) 100 mg PO TID [facility] Last Admin: 03/29/20 05:53 Dose: 100 mg Documented by: Levothyroxine Sodium (Synthroid -) 200 mcg PO DAILY@0700 [facility] Last Admin: 03/29/20 06:09 Dose: 200 mcg Documented by: Mupirocin (Bactroban Ointment (For Decolonization) -) 1 applic NS BID [facility] Stop: 03/30/20 21:59 Last Admin: 03/29/20 09:41 Dose: 1 applic Documented by: Nifedipine (Procardia Xl -) 60 mg PO DAILY [facility] Last Admin: 03/29/20 09:39 Dose: 60 mg Documented by: Ondansetron HCl (Zofran Injection) 4 mg IVPUSH Q6H PRN PRN Reason: NAUSEA Pantoprazole Sodium (Protonix -) 40 mg PO DAILY [facility] Last Admin: 03/29/20 09:39 Dose: 40 mg Documented by: Paroxetine HCl (Paxil -) 40 mg PO DAILY [facility] Last Admin: 03/29/20 09:39 Dose: 40 mg Documented by: GENERAL: Awake and alert HEENT: NCAT LUNGS: clear to auscultation b/l, no wheezes. HEART: regular rate and rhythm, +S1/S2. No murmurs ABDOMEN: Obese. Soft, non-distended, non-tender to palpation. Normoactive bowel sounds NEURO: Non-focal Laboratory Results - last 24 hr 03/28/20 03/28/20 03/29/20 17:25 21:55 06:10 POC Glucometer 229 271 109 03/29/20 10:54 POC Glucometer 178 ASSESSMENT/PLAN: Resolving Myxedema Coma ESRD on HD (MWF) COPD CHF HLD IDDM Thyroid cancer S/P resection Anemia Accelerated HTN Likely OSAS PO Synthroid Wean Hydrocortisone HD per Renal BD TX PRN Will need formal SBD evaluation after DC Dr Alonso ANGELIQUE Screen - ANGELIQUE History Previously diagnosed with Sleep Apnea: No If Yes, currently using CPAP to treat your AGNELIQUE: No - SNORING Do you snore loudly (enough to be heard thru closed doors)?: Yes - TIRED Do you often feel tired, fatigued, or sleepy during daytime?: Yes - OBSERVED Has anyone observed you stop breathing during your sleep?: Yes - BLOOD PRESSURE Do you have or are being treated for high blood pressure?: Yes - BMI Answer Y if weight exceeds amount listed for your height: Yes .: HEIGHT & WEIGHT (lbs): 4'10" 167lbs; 4'11" 175 lbs; 5'0" 179lbs;. 5'1" 185lbs; 5'2" 191lbs; 5'3" 197lbs;. 5'4" 204lbs; 5'5" 210lbs; 5'6" 216lbs;. 5'7" 223lbs; 5'8" 230lbs; 5'9" 237lbs;. 5'10" 243lbs; 511" 250lbs; 6' 258lbs;. 6'1" 265lbs; 6'2" 272lbs; 6'3" 279lbs;. 6'4" 287lbs; 6'5" 295lbs - AGE Is your age over 50 yrs old?: Yes - NECK CIRCUMFERENCE Neck Circumference 40cm: Yes - GENDER Male: No - SCORE Total Score: 7 Score Interpretation: High Risk of ANGELIQUE .: Interpretation: Score 0-2: Low Risk ANGELIQUE. Score 3-4: Intermediate Risk ANGELIQUE. Score 5-8: High Risk ANGELIQUE
[2020-03-29] MEDS ORDERED: PT OWN MED DRAWER 7, Y5N ONE (21:10)
[2020-03-29] MEDS: CHLORHEXIDINE GLUCONATE 4% CLEANSER FOR DECOLONIZATION TP SCH (21:17)
[2020-03-29] MEDS: ATORVASTATIN CA 40 MG TABLET (FP) PO SCH (21:17)
[2020-03-30] MEDS: HYDROCORTISONE SOD SUCCINATE 100 MG/2 ML VIAL IVPUSH SCH ×4 (01:28→23:48)
[2020-03-30] MEDS: INSULIN SLIDING SCALE (NOVOLOG) 1 VIAL SQ SCH ×4 (06:05→21:19)
[2020-03-30] MEDS: HEPARIN NA (PORCINE) 5,000 UNITS/ML 1ML VIAL SQ SCH ×3 (06:05→21:13)
[2020-03-30] MEDS: LEVOTHYROXINE NA 200 MCG TABLET PO SCH (06:05)
[2020-03-30] MEDS: LABETALOL HCL 100 MG TABLET (FP) PO SCH ×3 (06:05→21:13)
[2020-03-30 06:14] LABS: HEMATOCRIT 33.2 % (32.4-45.2); MCH 29.5 pg (25.7-33.7); MCHC 33.3 g/dl (32.0-36.0); MEAN CELL VOLUME 88.8 fl (80-96); MEAN PLT VOLUME 9.3 fl (7.5-11.1); PLATELET COUNT 218 K/MM3 (134-434); RBC 3.74 M/mm3 (3.60-5.2); RDW 14.9 % (11.6-15.6); WHITE BLOOD COUNT 7.3 K/mm3 (4.0-10.0)
[2020-03-30 06:46] LABS: BLOOD UREA NITROGEN 55.7 mg/dL (7-18); CALCIUM 7.3 mg/dL (8.5-10.1); CREATININE 6.9 mg/dL (0.55-1.3); MAGNESIUM 1.8 mg/dL (1.8-2.4)
[2020-03-30] MEDS: ALBUTEROL SO4 2.5/IPRATROPIUM 0.5 INH SOL 3 ML VIAL.NEB. NEB SCH ×4 (08:39→20:38)
[2020-03-30] MEDS: MUPIROCIN 2% TOPICAL OINTMENT FOR DECOLONIZATION NS SCH (09:20)
[2020-03-30] MEDS: NIFEdipine E.R 60 MG TABLET PO SCH (09:20)
[2020-03-30] MEDS: amLODIPine BESYLATE 10 MG TABLET (FP) PO SCH (09:20)
[2020-03-30] MEDS: PARoxetine HCL 20 MG TABLET PO SCH (09:20)
[2020-03-30] MEDS: PANTOPRAZOLE 40 MG TABLET PO SCH (09:20)
--- NOTE | 2020-03-30 11:09 | PN ---
Progress Note, [employer] - Note Progress Note: Reg diet/thin liquids Selected Entries 03/26/20 03/27/20 03/28/20 20:00 09:01 20:00 Breakfast NPO Diet Tolerated Well Lunch NPO Supper NPO 75% Blood Pressure 03/29/20 03/29/20 03/30/20 10:00 22:00 02:00 Breakfast NPO NPO Diet Tolerated Well Well Lunch Supper 75% 75% Blood Pressure 140/66 03/30/20 03/30/20 04:00 06:00 Breakfast Diet Tolerated Lunch Supper Blood Pressure 171/79 H 159/86 Laboratory Tests 03/25/20 03/30/20 17:40 05:15 WBC 7.3 COVID-19 ([facility]) Not detected
--- NOTE | 2020-03-30 11:27 | PN ---
Physical Exam: SUBJECTIVE: Patient seen and examined. She reports feeling well. She denies chest pain, shortness of breath, abdominal pain, nausea. OBJECTIVE: Vital Signs Period Temp Pulse Resp BP Sys/Amos Pulse Ox Last 24 Hr 98.2 F-98.6 F 63-75 12- 120-171/61-86 93-97 GENERAL: The patient is awake, alert, and fully oriented, in no acute distress. HEAD: Normal with no signs of trauma. EYES: PERRL, extraocular movements intact, conjunctiva clear. ENT: Ears normal, nares patent, moist mucous membranes. NECK: Trachea midline, full range of motion, surgical scar at base of neck. LUNGS: Clear to auscultation bilaterally anteriorly, no accessory muscle use. HEART: Regular rate and rhythm, S1, S2 without murmur, rub or gallop. ABDOMEN: Soft, nontender, nondistended, normoactive bowel sounds. EXTREMITIES: Warm, well-perfused, no edema. NEUROLOGICAL: Cranial nerves II through XII grossly intact. Normal speech. PSYCH: Normal mood, normal affect. SKIN: Warm, dry, normal turgor. Laboratory Results - last 24 hr 03/29/20 03/29/20 03/30/20 16:12 21:21 05:15 WBC 7.3 RBC 3.74 Hgb 11.0 Hct 33.2 MCV 88.8 MCH 29.5 MCHC 33.3 RDW 14.9 Plt Count 218 MPV 9.3 Sodium Potassium Chloride Carbon Dioxide Anion Gap BUN Creatinine Est GFR (CKD-EPI)AfAm Est GFR (CKD-EPI)NonAf POC Glucometer 334 169 Random Glucose Calcium Phosphorus Magnesium 03/30/20 03/30/20 05:15 05:28 WBC RBC Hgb Hct MCV MCH MCHC RDW Plt Count MPV Sodium 133 L Potassium 4.0 Chloride 96 L Carbon Dioxide 27 Anion Gap 10 BUN 55.7 H Creatinine 6.9 H Est GFR (CKD-EPI)AfAm 7.21 Est GFR (CKD-EPI)NonAf 6.22 POC Glucometer 130 Random Glucose 145 H Calcium 7.3 L Phosphorus 5.0 H Magnesium 1.8 Active Medications Generic Name Dose Route Start Last Admin Trade Name Freq PRN Reason Stop Dose Admin Albuterol/Ipratropium 1 amp 03/27/20 20:00 03/30/20 08:39 Duoneb - NEB 1 amp RQID [facility] Administration Amlodipine Besylate 10 mg 03/27/20 10:00 03/30/20 09:20 Norvasc - PO 10 mg DAILY [facility] Administration Atorvastatin Calcium 40 mg 03/27/20 22:00 03/29/20 21:17 Lipitor - PO 40 mg HS [facility] Administration Chlorhexidine Gluconate 1 applic 03/25/20 22:00 03/29/20 21:17 Hibiclens For Decolonization - TP Not Given HS [facility] Heparin Sodium (Porcine) 5,000 unit 03/25/20 22:00 03/30/20 06:05 Heparin - SQ 5,000 unit TID [facility] Administration Hydrocortisone Sodium Succinate 30 mg 03/30/20 08:00 03/30/20 08:22 Solu-Cortef - IVPUSH 03/31/20 00:01 30 mg Q8H [facility] Administration Hydrocortisone Sodium Succinate 20 mg 03/31/20 08:00 Solu-Cortef - IVPUSH 04/01/20 00:01 Q8H [facility] Hydrocortisone Sodium Succinate 10 mg 04/01/20 08:00 Solu-Cortef - IVPUSH 04/02/20 00:01 Q8H [facility] Sodium Chloride 250 mls @ 3,000 mls/hr 03/27/20 15:03 Normal Saline - IV 03/28/20 15:03 PRN PRN Hypotension during Dialysis Insulin Aspart 1 vial 03/25/20 22:00 03/30/20 06:05 Novolog Vial Sliding Scale - SQ Not Given ACHS [facility] Protocol Labetalol HCl 100 mg 03/27/20 22:00 03/30/20 06:05 Normodyne - PO 100 mg TID [facility] Administration Levothyroxine Sodium 200 mcg 03/28/20 07:00 03/30/20 06:05 Synthroid - PO 200 mcg DAILY@0700 [facility] Administration Mupirocin 1 applic 03/25/20 22:00 03/30/20 09:20 Bactroban Ointment (For Decolonization) - NS 03/30/20 21:59 1 applic BID [facility] Administration Nifedipine 60 mg 03/27/20 17:00 03/30/20 09:20 Procardia Xl - PO 60 mg DAILY [facility] Administration Ondansetron HCl 4 mg 03/26/20 11:49 Zofran Injection IVPUSH Q6H PRN NAUSEA Pantoprazole Sodium 40 mg 03/26/20 14:00 03/30/20 09:20 Protonix - PO 40 mg DAILY [facility] Administration Paroxetine HCl 40 mg 03/27/20 10:00 03/30/20 09:20 Paxil - PO 40 mg DAILY [facility] Administration ASSESSMENT/PLAN: 55 year old female with PMH ESRD (HD MWF), COPD, CHF, HLD, IDDM, thyroid cancer, anemia, h/o myxedema coma admitted to the ICU for altered mental status suspected to be secondary to uremia (nonadherence to scheduled outpatient HD) versus hypertensive emergency versus myxedema coma. #Neuro -alert -monitor for change in status #Cardio -Nifedipine 60mg daily -labetolol 100mg TID -amlodipine 10mg daily -atorvastatin #Pulm -hx COPD -duonebs QID scheduled -suspect likely ANGELIQUE, continue CPAP at night. -secommend formal sleep behavioral study as outpatient. #Renal -ESRD on HD, anticipate HD today -Cr 6.9 -hyperphosphatemia 5.0 -uremia with improved mental status following HD sessions -vascular surgery consulted- recommended a new AV graft as a better option to achieve access given her noncompliance. #Endo -IDDM -A1C 7.4 -hypothyroidism -BGMs -SSI -TSH 77- unlikely myxedema coma, regardless there is improved mental status -Synthroid 200mcg PO daily -day 3 of 5 hydrocortisone PO taper #Psych -Paxil Ppx GI: Protonix DVT: heparin FEN PO fluids monitor labs diabetic/sodium diet dispo transfer to med/surg FULL CODE Visit type - Emergency Visit Emergency Visit: Yes ED Registration Date: 03/25/20 Care time: The patient presented to the Emergency Department on the above date and was hospitalized for further evaluation of their emergent condition. - New Patient This patient is new to me today: Yes Date on this admission: 03/30/20 - Critical Care Critical Care patient: Yes Total Critical Care Time (in minutes): 36 Critical Care Statement: The care of this patient involved high complexity decision making to prevent further life threatening deterioration of the patient's condition and/or to evaluate & treat vital organ system(s) failure or risk of failure. ATTENDING PHYSICIAN STATEMENT I saw and evaluated the patient. I reviewed the resident's note and discussed the case with the resident. I agree with the resident's findings and plan as documented. SUBJECTIVE: OBJECTIVE: ASSESSMENT AND PLAN:
--- NOTE | 2020-03-30 12:19 | PN ---
Teaching Attending Note Name of Resident: Sarah Ambriz ATTENDING PHYSICIAN STATEMENT I saw and evaluated the patient. I reviewed the resident's note and discussed the case with the resident. I agree with the resident's findings and plan as documented. SUBJECTIVE: Pt seen and examined in the ICU. Denies shortness of breath, chest pain. Wants to go home. OBJECTIVE: Vital Signs Period Temp Pulse Resp BP Sys/Amos Pulse Ox Last 24 Hr 98.2 F-98.6 F 63-75 12-22 120-171/61-86 93-97 Intake & Output 03/27/20 03/28/20 03/29/20 03/30/20 23:59 23:59 23:59 23:59 Intake Total 2783 586 1131 100 Output Total 450 Balance 3785 436 4601 100 Weight 107.501 kg 111.6 kg 111.7 kg 111.8 kg Gen: NAD at rest Heart: RRR Lung: decreased breath sounds at the bases Abd: soft, nontender Ext: no edema CBC, BMP 03/30/20 05:15 03/30/20 05:15 Active Medications Albuterol/Ipratropium (Duoneb -) 1 amp NEB RQID [facility] Last Admin: 03/30/20 11:51 Dose: 1 amp Documented by: Amlodipine Besylate (Norvasc -) 10 mg PO DAILY [facility] Last Admin: 03/30/20 09:20 Dose: 10 mg Documented by: Atorvastatin Calcium (Lipitor -) 40 mg PO [facility] Last Admin: 03/29/20 21:17 Dose: 40 mg Documented by: Chlorhexidine Gluconate (Hibiclens For Decolonization -) 1 applic TP [facility] Last Admin: 03/29/20 21:17 Dose: Not Given Documented by: Heparin Sodium (Porcine) (Heparin -) 5,000 unit SQ TID [facility] Last Admin: 03/30/20 06:05 Dose: 5,000 unit Documented by: Hydrocortisone Sodium Succinate (Solu-Cortef -) 30 mg IVPUSH Q8H [facility] Stop: 03/31/20 00:01 Last Admin: 03/30/20 08:22 Dose: 30 mg Documented by: Hydrocortisone Sodium Succinate (Solu-Cortef -) 20 mg IVPUSH Q8H [facility] Stop: 04/01/20 00:01 Hydrocortisone Sodium Succinate (Solu-Cortef -) 10 mg IVPUSH Q8H [facility] Stop: 04/02/20 00:01 Sodium Chloride (Normal Saline -) 250 mls @ 3,000 mls/hr IV PRN PRN PRN Reason: Hypotension during Dialysis Stop: 03/28/20 15:03 Insulin Aspart (Novolog Vial Sliding Scale -) 1 vial SQ ACHS [facility]; Protocol Last Admin: 03/30/20 11:43 Dose: 6 units Documented by: Labetalol HCl (Normodyne -) 100 mg PO TID [facility] Last Admin: 03/30/20 06:05 Dose: 100 mg Documented by: Levothyroxine Sodium (Synthroid -) 200 mcg PO DAILY@0700 [facility] Last Admin: 03/30/20 06:05 Dose: 200 mcg Documented by: Mupirocin (Bactroban Ointment (For Decolonization) -) 1 applic NS BID [facility] Stop: 03/30/20 21:59 Last Admin: 03/30/20 09:20 Dose: 1 applic Documented by: Nifedipine (Procardia Xl -) 60 mg PO DAILY [facility] Last Admin: 03/30/20 09:20 Dose: 60 mg Documented by: Ondansetron HCl (Zofran Injection) 4 mg IVPUSH Q6H PRN PRN Reason: NAUSEA Pantoprazole Sodium (Protonix -) 40 mg PO DAILY [facility] Last Admin: 03/30/20 09:20 Dose: 40 mg Documented by: Paroxetine HCl (Paxil -) 40 mg PO DAILY [facility] Last Admin: 03/30/20 09:20 Dose: 40 mg Documented by: ASSESSMENT AND PLAN: Toxic Metabolic/Uremic Encephalopathy resolving r/o Myxedema Coma ESRD on HD COPD HTN DM Hyperlipidemia h/o Thyroid Cancer Likely ANGELIQUE Morbid Obesity - HD per renal - continue synthroid/hydrocortisone - monitor lytes - BP control - PO as tolerated - OOB to chair - can monitor on floor
[2020-03-30] MEDS ORDERED: SODIUM CHLORIDE 250 ML IV PRN (14:31)
--- NOTE | 2020-03-30 14:31 | PN ---
Progress Note, Physician History of Present Illness: Pt seen and examined at bedside. She is awake and alert. She denies shortness of breath. - Current Medication List Current Medications: Active Medications Albuterol/Ipratropium (Duoneb -) 1 amp NEB RQID [facility] Last Admin: 03/30/20 11:51 Dose: 1 amp Documented by: Amlodipine Besylate (Norvasc -) 10 mg PO DAILY [facility] Last Admin: 03/30/20 09:20 Dose: 10 mg Documented by: Atorvastatin Calcium (Lipitor -) 40 mg PO HS [facility] Last Admin: 03/29/20 21:17 Dose: 40 mg Documented by: Chlorhexidine Gluconate (Hibiclens For Decolonization -) 1 applic TP [facility] Last Admin: 03/29/20 21:17 Dose: Not Given Documented by: Heparin Sodium (Porcine) (Heparin -) 5,000 unit SQ TID [facility] Last Admin: 03/30/20 13:28 Dose: 5,000 unit Documented by: Hydrocortisone Sodium Succinate (Solu-Cortef -) 30 mg IVPUSH Q8H [facility] Stop: 03/31/20 00:01 Last Admin: 03/30/20 08:22 Dose: 30 mg Documented by: Hydrocortisone Sodium Succinate (Solu-Cortef -) 20 mg IVPUSH Q8H [facility] Stop: 04/01/20 00:01 Hydrocortisone Sodium Succinate (Solu-Cortef -) 10 mg IVPUSH Q8H [facility] Stop: 04/02/20 00:01 Sodium Chloride (Normal Saline -) 250 mls @ 3,000 mls/hr IV PRN PRN PRN Reason: Hypotension during Dialysis Stop: 03/28/20 15:03 Insulin Aspart (Novolog Vial Sliding Scale -) 1 vial SQ [facility]; Protocol Last Admin: 03/30/20 11:43 Dose: 6 units Documented by: Labetalol HCl (Normodyne -) 100 mg PO TID [facility] Last Admin: 03/30/20 13:28 Dose: 100 mg Documented by: Levothyroxine Sodium (Synthroid -) 200 mcg PO DAILY@0700 [facility] Last Admin: 03/30/20 06:05 Dose: 200 mcg Documented by: Mupirocin (Bactroban Ointment (For Decolonization) -) 1 applic NS BID [facility] Stop: 03/30/20 21:59 Last Admin: 03/30/20 09:20 Dose: 1 applic Documented by: Nifedipine (Procardia Xl -) 60 mg PO DAILY [facility] Last Admin: 03/30/20 09:20 Dose: 60 mg Documented by: Ondansetron HCl (Zofran Injection) 4 mg IVPUSH Q6H PRN PRN Reason: NAUSEA Pantoprazole Sodium (Protonix -) 40 mg PO DAILY [facility] Last Admin: 03/30/20 09:20 Dose: 40 mg Documented by: Paroxetine HCl (Paxil -) 40 mg PO DAILY [facility] Last Admin: 03/30/20 09:20 Dose: 40 mg Documented by: - Objective Vital Signs: Vital Signs Temperature 98.2 F 03/29/20 20:00 Pulse Rate 72 03/30/20 14:01 Respiratory Rate 16 03/30/20 14:01 Blood Pressure 133/72 03/30/20 14:01 O2 Sat by Pulse Oximetry (%) 72 L 03/30/20 14:01 Constitutional: Yes: Calm Eyes: Yes: Conjunctiva Clear HENT: Yes: Atraumatic Neck: Yes: Supple Cardiovascular: Yes: S1, S2 Respiratory: Yes: CTA Bilaterally Gastrointestinal: Yes: Soft, Abdomen, Obese Genitourinary: Yes: WNL Musculoskeletal: Yes: WNL Edema: No Neurological: Yes: Oriented Psychiatric: Yes: Oriented Labs: CBC, BMP 03/30/20 05:15 03/30/20 05:15 INR, PTT INR 1.03 (0.83-1.09) 03/26/20 05:52 Problem List - Problems (1) ESRD (end stage renal disease) Code(s): N18.6 - END STAGE RENAL DISEASE Assessment/Plan Current Medications Generic Name Dose Route Start Last Admin Trade Name Freq PRN Reason Stop Dose Admin Albuterol/Ipratropium 1 amp 03/27/20 20:00 03/30/20 11:51 Duoneb - NEB 1 amp RQID [facility] Administration Amlodipine Besylate 10 mg 03/27/20 10:00 03/30/20 09:20 Norvasc - PO 10 mg DAILY [facility] Administration Atorvastatin Calcium 40 mg 03/27/20 22:00 03/29/20 21:17 Lipitor - PO 40 mg HS [facility] Administration Chlorhexidine Gluconate 1 applic 03/25/20 22:00 03/29/20 21:17 Hibiclens For Decolonization - TP Not Given HS [facility] Heparin Sodium (Porcine) 5,000 unit 03/25/20 22:00 03/30/20 13:28 Heparin - SQ 5,000 unit TID [facility] Administration Hydrocortisone Sodium Succinate 30 mg 03/30/20 08:00 03/30/20 08:22 Solu-Cortef - IVPUSH 03/31/20 00:01 30 mg Q8H [facility] Administration Hydrocortisone Sodium Succinate 20 mg 03/31/20 08:00 Solu-Cortef - IVPUSH 04/01/20 00:01 Q8H [facility] Hydrocortisone Sodium Succinate 10 mg 04/01/20 08:00 Solu-Cortef - IVPUSH 04/02/20 00:01 Q8H [facility] Sodium Chloride 250 mls @ 3,000 mls/hr 03/27/20 15:03 Normal Saline - IV 03/28/20 15:03 PRN PRN Hypotension during Dialysis Insulin Aspart 1 vial 03/25/20 22:00 03/30/20 11:43 Novolog Vial Sliding Scale - SQ 6 units ACHS [facility] Administration Protocol Labetalol HCl 100 mg 03/27/20 22:00 03/30/20 13:28 Normodyne - PO 100 mg TID [facility] Administration Levothyroxine Sodium 200 mcg 03/28/20 07:00 03/30/20 06:05 Synthroid - PO 200 mcg DAILY@0700 [facility] Administration Mupirocin 1 applic 03/25/20 22:00 03/30/20 09:20 Bactroban Ointment (For Decolonization) - NS 03/30/20 21:59 1 applic BID [facility] Administration Nifedipine 60 mg 03/27/20 17:00 03/30/20 09:20 Procardia Xl - PO 60 mg DAILY [facility] Administration Ondansetron HCl 4 mg 03/26/20 11:49 Zofran Injection IVPUSH Q6H PRN NAUSEA Pantoprazole Sodium 40 mg 03/26/20 14:00 03/30/20 09:20 Protonix - PO 40 mg DAILY [facility] Administration Paroxetine HCl 40 mg 03/27/20 10:00 03/30/20 09:20 Paxil - PO 40 mg DAILY [facility] Administration Impression 1. ESRD 2. missed HD 3. copd 4. hypothyroidism 5. hep B 6. anemia 7. DM 8. hypertension Plan - HD tomorrow - mental status at baseline - bp improved - will need to follow with vascular for fistula - discussed compliance with diet and meds
[2020-03-30] MEDS ORDERED: ONDANSETRON 4 MG/2 ML VIAL IVPUSH PRN (15:32)
--- NOTE | 2020-03-30 15:47 | HOSP ---
Subjective - Review of Symptoms Events since last encounter: ACCEPTANCE NOTE: Pt seen and assessed at bedside on floor. Pt seen stable, AAOX3 with no symptomatic complaints at this time. Pt accepted for transfer to floor from ICU. Physical Examination Vital Signs: Vital Signs Temperature 98.4 F 03/30/20 12:00 Pulse Rate 72 03/30/20 14:01 Respiratory Rate 16 03/30/20 14:01 Blood Pressure 133/72 03/30/20 14:01 O2 Sat by Pulse Oximetry (%) 72 L 03/30/20 14:01 GENERAL: The patient is awake, alert, and fully oriented, in no acute distress. HEAD: Normal with no signs of trauma. EYES: PERRL, extraocular movements intact, conjunctiva clear. ENT: Ears normal, nares patent, moist mucous membranes. NECK: Trachea midline, full range of motion, surgical scar at base of neck. LUNGS: Clear to auscultation bilaterally anteriorly, no accessory muscle use. HEART: Regular rate and rhythm, S1, S2 without murmur, rub or gallop. ABDOMEN: Soft, nontender, nondistended, normoactive bowel sounds. EXTREMITIES: Warm, well-perfused, no edema. NEUROLOGICAL: Cranial nerves II through XII grossly intact. Normal speech. PSYCH: Normal mood, normal affect. SKIN: Warm, dry, normal turgor. Labs: CBC, BMP 03/30/20 05:15 03/30/20 05:15 Visit type - Emergency Visit Emergency Visit: Yes ED Registration Date: 03/25/20 Care time: The patient presented to the Emergency Department on the above date and was hospitalized for further evaluation of their emergent condition. - New Patient This patient is new to me today: Yes Date on this admission: 03/30/20 - Critical Care Critical Care patient: No
[2020-03-30] MEDS ORDERED: INSULIN (NOVOLOG) ASPART 100 UNITS/ML 10ML VIAL ONE (21:17)
[2020-03-30] MEDS ORDERED: ATORVASTATIN CA 40 MG TABLET (FP) PO SCH (22:00)
[2020-03-30] MEDS ORDERED: MUPIROCIN 2% TOPICAL OINTMENT FOR DECOLONIZATION NS SCH (22:00)
[2020-03-30] MEDS ORDERED: CHLORHEXIDINE GLUCONATE 4% CLEANSER FOR DECOLONIZATION TP SCH (22:00)
[2020-03-31 06:06] LABS: HBsAG CONFIRMATION Positive (.)
[2020-03-31] MEDS: LABETALOL HCL 100 MG TABLET (FP) PO SCH ×2 (06:19→13:59)
[2020-03-31] MEDS: INSULIN SLIDING SCALE (NOVOLOG) 1 VIAL SQ SCH ×3 (06:33→17:10)
[2020-03-31] MEDS: HEPARIN NA (PORCINE) 5,000 UNITS/ML 1ML VIAL SQ SCH ×2 (06:34→13:59)
[2020-03-31] MEDS ORDERED: LEVOTHYROXINE NA 200 MCG TABLET PO SCH (07:00)
[2020-03-31] MEDS: ALBUTEROL SO4 2.5/IPRATROPIUM 0.5 INH SOL 3 ML VIAL.NEB. NEB SCH ×3 (08:25→15:36)
[2020-03-31 08:31] LABS: BASO % 0.1 % (0-2.0); HEMATOCRIT 29.5 % (32.4-45.2); HEMOGLOBIN 9.8 GM/dL (10.7-15.3); LYMPH % 33.1 % (8-40); MCH 29.8 pg (25.7-33.7); MCHC 33.1 g/dl (32.0-36.0); MEAN CELL VOLUME 89.9 fl (80-96); MEAN PLT VOLUME 9.2 fl (7.5-11.1); MONO % 2.3 % (3.8-10.2); NEUT % 64.5 % (42.8-82.8); PLATELET COUNT 218 K/MM3 (134-434); RBC 3.28 M/mm3 (3.60-5.2); RDW 14.7 % (11.6-15.6); WHITE BLOOD COUNT 8.2 K/mm3 (4.0-10.0)
[2020-03-31 09:03] LABS: ALBUMIN 2.9 g/dl (3.4-5.0); BILIRUBIN,TOTAL 0.4 mg/dL (0.2-1); BLOOD UREA NITROGEN 67.1 mg/dL (7-18); CALCIUM 7.3 mg/dL (8.5-10.1); MAGNESIUM 1.9 mg/dL (1.8-2.4); PHOSPHOROUS 5.7 mg/dL (2.5-4.9); POTASSIUM 4.5 mmol/L (3.5-5.1); TOT PROT 6.7 g/dl (6.4-8.2)
[2020-03-31 09:07] LABS: CREATININE 7.8 mg/dL (0.55-1.3)
--- NOTE | 2020-03-31 09:56 | PN ---
Progress Note, Physician History of Present Illness: PULMONARY ALERT,COMFORTABLE,-RESP DISTRESS - Current Medication List Current Medications: Active Medications Albuterol/Ipratropium (Duoneb -) 1 amp NEB RQID [facility] Last Admin: 03/31/20 08:25 Dose: 1 amp Documented by: Amlodipine Besylate (Norvasc -) 10 mg PO DAILY [facility] Atorvastatin Calcium (Lipitor -) 40 mg PO HS [facility] Last Admin: 03/30/20 21:13 Dose: 40 mg Documented by: Heparin Sodium (Porcine) (Heparin -) 5,000 unit SQ TID [facility] Last Admin: 03/31/20 06:34 Dose: 5,000 unit Documented by: Hydrocortisone Sodium Succinate (Solu-Cortef -) 20 mg IVPUSH Q8H [facility] Stop: 04/01/20 00:01 Hydrocortisone Sodium Succinate (Solu-Cortef -) 10 mg IVPUSH Q8H [facility] Stop: 04/02/20 00:01 Sodium Chloride (Normal Saline -) 250 mls @ 3,000 mls/hr IV PRN PRN PRN Reason: Hypotension during Dialysis Stop: 03/31/20 14:32 Insulin Aspart (Novolog Vial Sliding Scale -) 1 vial SQ [facility]; Protocol Last Admin: 03/31/20 06:33 Dose: Not Given Documented by: Labetalol HCl (Normodyne -) 100 mg PO TID [facility] Last Admin: 03/31/20 06:19 Dose: Not Given Documented by: Levothyroxine Sodium (Synthroid -) 200 mcg PO DAILY@0700 [facility] Last Admin: 03/31/20 06:34 Dose: 200 mcg Documented by: Nifedipine (Procardia Xl -) 60 mg PO DAILY [facility] Ondansetron HCl (Zofran Injection) 4 mg IVPUSH Q6H PRN PRN Reason: NAUSEA Pantoprazole Sodium (Protonix -) 40 mg PO DAILY [facility] Paroxetine HCl (Paxil -) 40 mg PO DAILY [facility] - Objective Vital Signs: Vital Signs Temperature 98.5 F 03/31/20 07:05 Pulse Rate 62 03/31/20 09:10 Respiratory Rate 18 03/31/20 09:10 Blood Pressure 168/82 03/31/20 09:10 O2 Sat by Pulse Oximetry (%) 100 03/31/20 01:00 Constitutional: Yes: Calm, Obese Eyes: Yes: WNL HENT: Yes: WNL Neck: Yes: WNL Cardiovascular: Yes: Regular Rate and Rhythm, S1, S2 Respiratory: Yes: Diminished Gastrointestinal: Yes: Normal Bowel Sounds, Soft, Abdomen, Obese Extremities: Yes: WNL Edema: No Labs: CBC, BMP 03/31/20 07:10 03/31/20 07:10 INR, PTT INR 1.03 (0.83-1.09) 03/26/20 05:52 Assessment/Plan ASSESSMENT AND PLAN: Toxic Metabolic/Uremic Encephalopathy resolved r/o Myxedema Coma ESRD on HD COPD HTN DM Hyperlipidemia h/o Thyroid Cancer Likely ANGELIQUE Morbid Obesity - HD per renal - BIPAP at night - continue synthroid/hydrocortisone - monitor lytes - BP control - PO as tolerated - OOB to chair DR JACOBS
[2020-03-31] MEDS ORDERED: NIFEdipine E.R 60 MG TABLET PO SCH (10:00)
[2020-03-31] MEDS ORDERED: PANTOPRAZOLE 40 MG TABLET PO SCH (10:00)
[2020-03-31] MEDS ORDERED: PARoxetine HCL 20 MG TABLET PO SCH (10:00)
[2020-03-31] MEDS ORDERED: amLODIPine BESYLATE 10 MG TABLET (FP) PO SCH (10:00)
[2020-03-31] MEDS: HYDROCORTISONE SOD SUCCINATE 100 MG/2 ML VIAL IVPUSH SCH ×2 (10:51→17:10)
[2020-03-31 12:43] VITALS: BMI 44.9
[2020-03-31] MEDS ORDERED: NIFEdipine E.R. 90 MG TABLET PO SCH (13:30)
--- NOTE | 2020-03-31 13:30 | PN ---
Progress Note, Physician History of Present Illness: Pt seen and examined at bedside. She is awake and alert. She is eager to go home. She wants to transfer to [facility] which is originally where she was supposed to be. - Current Medication List Current Medications: Active Medications Albuterol/Ipratropium (Duoneb -) 1 amp NEB RQID [facility] Last Admin: 03/31/20 11:57 Dose: 1 amp Documented by: Amlodipine Besylate (Norvasc -) 10 mg PO DAILY [facility] Last Admin: 03/31/20 10:53 Dose: 10 mg Documented by: Atorvastatin Calcium (Lipitor -) 40 mg PO HS [facility] Last Admin: 03/30/20 21:13 Dose: 40 mg Documented by: Heparin Sodium (Porcine) (Heparin -) 5,000 unit SQ TID [facility] Last Admin: 03/31/20 06:34 Dose: 5,000 unit Documented by: Hydrocortisone Sodium Succinate (Solu-Cortef -) 20 mg IVPUSH Q8H [facility] Stop: 04/01/20 00:01 Last Admin: 03/31/20 10:51 Dose: 20 mg Documented by: Hydrocortisone Sodium Succinate (Solu-Cortef -) 10 mg IVPUSH Q8H [facility] Stop: 04/02/20 00:01 Sodium Chloride (Normal Saline -) 250 mls @ 3,000 mls/hr IV PRN PRN PRN Reason: Hypotension during Dialysis Stop: 03/31/20 14:32 Insulin Aspart (Novolog Vial Sliding Scale -) [address] [facility]; Protocol Last Admin: 03/31/20 10:57 Dose: Not Given Documented by: Labetalol HCl (Normodyne -) 100 mg PO TID [facility] Last Admin: 03/31/20 06:19 Dose: Not Given Documented by: Levothyroxine Sodium (Synthroid -) 200 mcg PO DAILY@0700 [facility] Last Admin: 03/31/20 06:34 Dose: 200 mcg Documented by: Nifedipine (Procardia Xl -) 60 mg PO DAILY [facility] Last Admin: 03/31/20 10:53 Dose: 60 mg Documented by: Ondansetron HCl (Zofran Injection) 4 mg IVPUSH Q6H PRN PRN Reason: NAUSEA Pantoprazole Sodium (Protonix -) 40 mg PO DAILY [facility] Last Admin: 03/31/20 10:53 Dose: 40 mg Documented by: Paroxetine HCl (Paxil -) 40 mg PO DAILY [facility] Last Admin: 03/31/20 10:53 Dose: 40 mg Documented by: - Objective Vital Signs: Vital Signs Temperature 97.8 F 03/31/20 09:00 Pulse Rate 66 03/31/20 10:15 Respiratory Rate 18 03/31/20 10:15 Blood Pressure 176/98 H 03/31/20 10:15 O2 Sat by Pulse Oximetry (%) 97 03/31/20 10:00 Constitutional: Yes: Calm Eyes: Yes: Conjunctiva Clear HENT: Yes: Atraumatic Neck: Yes: Supple Cardiovascular: Yes: S1, S2 Respiratory: Yes: CTA Bilaterally Gastrointestinal: Yes: Soft Genitourinary: Yes: WNL Musculoskeletal: Yes: WNL Edema: No Neurological: Yes: Oriented Psychiatric: Yes: Oriented Labs: CBC, BMP 03/31/20 07:10 03/31/20 07:10 INR, PTT INR 1.03 (0.83-1.09) 03/26/20 05:52 Problem List - Problems (1) ESRD (end stage renal disease) Code(s): N18.6 - END STAGE RENAL DISEASE Assessment/Plan Current Medications Generic Name Dose Route Start Last Admin Trade Name Freq PRN Reason Stop Dose Admin Albuterol/Ipratropium 1 amp 03/30/20 16:00 03/31/20 11:57 Duoneb - NEB 1 amp RQID [facility] Administration Amlodipine Besylate 10 mg 03/31/20 10:00 03/31/20 10:53 Norvasc - PO 10 mg DAILY [facility] Administration Atorvastatin Calcium 40 mg 03/30/20 22:00 03/30/20 21:13 Lipitor - PO 40 mg HS [facility] Administration Heparin Sodium (Porcine) 5,000 unit 03/30/20 22:00 03/31/20 06:34 Heparin - SQ 5,000 unit TID [facility] Administration Hydrocortisone Sodium Succinate 20 mg 03/31/20 08:00 03/31/20 10:51 Solu-Cortef - IVPUSH 04/01/20 00:01 20 mg Q8H [facility] Administration Hydrocortisone Sodium Succinate 10 mg 04/01/20 08:00 Solu-Cortef - IVPUSH 04/02/20 00:01 Q8H [facility] Sodium Chloride 250 mls @ 3,000 mls/hr 03/30/20 14:31 Normal Saline - IV 03/31/20 14:32 PRN PRN Hypotension during Dialysis Insulin Aspart 1 vial 03/30/20 16:30 03/31/20 10:57 Novolog Vial Sliding Scale - SQ Not Given ACHS [facility] Protocol Labetalol HCl 100 mg 03/30/20 22:00 03/31/20 06:19 Normodyne - PO Not Given TID [facility] Levothyroxine Sodium 200 mcg 03/31/20 07:00 03/31/20 06:34 Synthroid - PO 200 mcg DAILY@0700 [facility] Administration Nifedipine 60 mg 03/31/20 10:00 03/31/20 10:53 Procardia Xl - PO 60 mg DAILY [facility] Administration Ondansetron HCl 4 mg 03/30/20 15:32 Zofran Injection IVPUSH Q6H PRN NAUSEA Pantoprazole Sodium 40 mg 03/31/20 10:00 03/31/20 10:53 Protonix - PO 40 mg DAILY [facility] Administration Paroxetine HCl 40 mg 03/31/20 10:00 03/31/20 10:53 Paxil - PO 40 mg DAILY [facility] Administration Impression 1. ESRD 2. missed HD 3. copd 4. hypothyroidism 5. hep B 6. anemia 7. DM 8. hypertension Plan - pt tolerated HD - d/c amlodipine - increase procardia to 90 mg - add hydralazine - monitor bp - send packet to [facility] - discussed compliance with diet and meds
[2020-03-31] MEDS ORDERED: hydrALAZINE HCL 10 MG TABLET PO SCH (13:45)
[2020-03-31] MEDS ORDERED: LOSARTAN POTASSIUM 50 MG TABLET (FP) PO SCH (13:45)
--- NOTE | 2020-03-31 14:57 | PN ---
Teaching Attending Note Name of Resident: Carmelo Perez ATTENDING PHYSICIAN STATEMENT I saw and evaluated the patient. I reviewed the resident's note and discussed the case with the resident. I agree with the resident's findings and plan as documented. SUBJECTIVE: No complaints. She is alert and oriented x3 and is eager to go home. Patient medically cleared for discharge. Hypertensive medications changed as per renal: We will discharge on Procardia 90, losartan 50, labetalol 100 3 times daily. Amlodipine discontinued OBJECTIVE: Last Vital Signs Temp Pulse Resp BP Pulse Ox 97.8 F 66 18 176/98 H 97 03/31/20 09:00 03/31/20 10:15 03/31/20 10:15 03/31/20 10:15 03/31/20 10:00 PE: per resident note Labs/Imaging: reviewed ASSESSMENT AND PLAN: 55 year old female with PMH ESRD (HD MWF), COPD, CHF, HLD, IDDM, thyroid cancer, anemia, h/o myxedema coma admitted to the ICU for altered mental status suspected to be secondary to uremia (nonadherence to scheduled outpatient HD) versus hypertensive emergency versus myxedema coma. Patient was admitted to the ICU and was found to have a TSH of 77. Patient was started on levothyroxine 200 mg and hydrocortisone taper, and receive dialysis. Patient's now clinically improved and is at her mental baseline. She is medically cleared for discharge and will follow-up for dialysis as an outpatient. Importance of taking levothyroxine was impressed upon patient. A repeat TSH should be performed in 4 to 6 weeks.
[2020-03-31 15:37] VITALS: BP 126/62; PULSE 73; TEMP 98.2
--- NOTE | 2020-03-31 17:38 | DS ---
Physical Exam: SUBJECTIVE: Patient seen and examined at bed side. Patient is anxious to go home. Patient denies any acute events overnight. OBJECTIVE: Vital Signs Period Temp Pulse Resp BP Sys/Aoms Pulse Ox Last 24 Hr 97.8 F-98.5 F 60-73 17-18 106-190/58-102 97-100 PHYSICAL EXAM GENERAL: The patient is awake, alert, and fully oriented, in no acute distress. HEAD: Normal with no signs of trauma. EYES: PERRL, extraocular movements intact, sclera anicteric, conjunctiva clear. LUNGS: Breath sounds equal, clear to auscultation bilaterally, no wheezes, no crackles, no accessory muscle use. HEART: Regular rate and rhythm, S1, S2 without murmur, rub or gallop. ABDOMEN: Soft, nontender, nondistended, normoactive bowel sounds, no guarding, no rebound, no hepatosplenomegaly, no masses. EXTREMITIES: 2+ pulses, warm, well-perfused, no edema. LABS Laboratory Results - last 24 hr 03/26/20 03/30/20 03/31/20 14:00 21:16 06:33 WBC RBC Hgb Hct MCV MCH MCHC RDW Plt Count MPV Absolute Neuts (auto) Neutrophils % Lymphocytes % Monocytes % Eosinophils % Basophils % Nucleated RBC % Sodium Potassium Chloride Carbon Dioxide Anion Gap BUN Creatinine Est GFR (CKD-EPI)AfAm Est GFR (CKD-EPI)NonAf POC Glucometer 264 148 Random Glucose Calcium Phosphorus Magnesium Total Bilirubin AST ALT Alkaline Phosphatase Total Protein Albumin Hep Bs Antigen Confirm. indicated Hep Bs Ag Confirmation Positive H Hep C Ab Diagnostic 0.1 03/31/20 03/31/20 03/31/20 07:10 07:10 10:56 WBC 8.2 RBC 3.28 L Hgb 9.8 L Hct 29.5 L MCV 89.9 MCH 29.8 MCHC 33.1 RDW 14.7 Plt Count 218 MPV 9.2 Absolute Neuts (auto) 5.3 Neutrophils % 64.5 Lymphocytes % 33.1 D Monocytes % 2.3 L Eosinophils % 0.0 Basophils % 0.1 Nucleated RBC % 0 Sodium 133 L Potassium 4.5 Chloride 96 L Carbon Dioxide 27 Anion Gap 10 BUN 67.1 H Creatinine 7.8 H* Est GFR (CKD-EPI)AfAm 6.22 Est GFR (CKD-EPI)NonAf 5.36 POC Glucometer 122 Random Glucose 141 H Calcium 7.3 L Phosphorus 5.7 H Magnesium 1.9 Total Bilirubin 0.4 AST 13 L ALT 17 Alkaline Phosphatase 149 H Total Protein 6.7 Albumin 2.9 L Hep Bs Antigen Hep Bs Ag Confirmation Hep C Ab Diagnostic 03/31/20 17:06 WBC RBC Hgb Hct MCV MCH MCHC RDW Plt Count MPV Absolute Neuts (auto) Neutrophils % Lymphocytes % Monocytes % Eosinophils % Basophils % Nucleated RBC % Sodium Potassium Chloride Carbon Dioxide Anion Gap BUN Creatinine Est GFR (CKD-EPI)AfAm Est GFR (CKD-EPI)NonAf POC Glucometer 243 Random Glucose Calcium Phosphorus Magnesium Total Bilirubin AST ALT Alkaline Phosphatase Total Protein Albumin Hep Bs Antigen Hep Bs Ag Confirmation Hep C Ab Diagnostic HOSPITAL COURSE: Date of Admission:03/25/20 Ms. 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 The patient was recommended to arrive to the ED at the behest of the dialysis clinic for missing 3 sessions. patient was in and out of consciousness during the ED encounter and attributed it to being sleepy.Patient had been admitted to the ICU for suspicion of a myxedema coma that she had been admitted for 7 months prior. Patient was monitored with labs which was significant for an elevated TSH (77) and a normal T4. The patient was transfered to med/surg and had another session of dialysis today. Patients potassium was mildly decreased and was treated with k-dur. Patient agreed to adhear to dialysis scheduling and home medications. Patient had been seen by Dr. Pena and will be followed outpatient at his clinic on [facility]. Date of Discharge: 03/31/20 Minutes to complete discharge: 40 Discharge Summary Problems reviewed: Yes Reason For Visit: PERSISTENT HEADACHE,HYDROCEPHALUS,ESRD ON DIALYSIS Condition: Good - Instructions Diet, Activity, Other Instructions: YOUR VISIT: You were admitted to the hospital because you had missed 3 days of dialysis appointments. While you were here you were evaluated with lab work, blood work, chest x-ray, CAT scan of your head, and an MRI of your brain. While you were here, you were taken care of in the intensive care unit and transferred to the telemetry floor to be monitored. Your thyroid levels were low because you were not taking your medication at home. We treated you with your home dose of thyroid medications. It is very important that you take your thyroid medications as prescribed. We recommend following up with your primary care physician to check your thyroid levels in 4 weeks. If you do not have a primary care physician you may visit the [facility] outpatient clinic on [address]. You were seen by our Active Directory Specialist Dr. Dimitri Pena and our school crossing guard Dr. Perez. MEDICATIONS:We have made some alterations to your medication Please START taking LOSARTAN 50mg once a day Please START TAKING Procardia at 90 mg once a day Please START TAKING labetalol 100mg THREE TIMES A DAY Please STOP taking Amlodipine Please continue taking all of your medications as prescribed FOLLOW UP: Please follow up with your primary care physician within 1 week if you do not have one you may follow up with Dr. Carmelo Perez at the [facility] outpatient clinic located at [address] in [place]. ([phone]) Please follow up with your Active Directory Specialist within 1 week ( Dr. Dimitri Pena) to evaluate your lab work. Please attend all dialysis appointments Monday, Monday, and Monday. ADDITIONAL INFORMATION: You are being discharged HOME Please return to the emergency department if you are experiencing any increased difficulty breathing, fatigue, fever, chills, or sudden or worsening chest pain. Referrals: [facility] [place] [Provider Group] - 1 Week Carmelo Perez RES [Resident] - Dimitri Pena MD [Staff Physician] - 1 Week Disposition: HOME - Home Medications Comprehensive Discharge Medication List: Ambulatory Orders Acetaminophen [Tylenol .Regular Strength -] 650 mg PO Q6H PRN tablet 09/25/19 Alcohol Antiseptic Pads [Alcohol Prep Pad] 1 each TP TID #1 box 10/04/19 Insulin Sliding Scale [Novolog Vial Sliding Scale -] 2 units SQ ACHS #7 pen 10/04/19 Levothyroxine [Synthroid -] 50 mcg PO DAILY #90 tablet 10/04/19 Paroxetine HCl [Paxil] 40 mg PO DAILY #90 tablet 10/04/19 Pen Needle, Diabetic, Safety [Assure Id Pen Needle] 1 each ACHS #100 dis.needle 10/04/19 Clonazepam [Klonopin] 2 mg PO HS 03/25/20 Atorvastatin Ca [Lipitor] 10 mg PO HS 03/31/20 Bupropion HCl [Bupropion Xl] 450 mg PO DAILY 03/31/20 Chlorpromazine [Thorazine -] 100 mg PO BID 03/31/20 Labetalol HCl 100 mg PO TID 30 Days #90 tablet 03/31/20 Levothyroxine Sodium [Synthroid] 200 mcg PO DAILY 03/31/20 Losartan 50Mg/Hctz 12.5MG [Hyzaar -] 1 tab PO DAILY #30 tablet 03/31/20 Nifedipine [Procardia Xl] 90 mg PO DAILY #30 tab.er.24 03/31/20 This patient is new to me today: Yes Date on this admission: 03/31/20 Emergency Visit: Yes ED Registration Date: 03/25/20 Care time: The patient presented to the Emergency Department on the above date and was hospitalized for further evaluation of their emergent condition. Critical Care patient: No - Discharge Referral [facility]erred to [facility] Yes Physician Referral: Kyleigh Kaplan MD ([facility]) ATTENDING PHYSICIAN STATEMENT I saw and evaluated the patient. I reviewed the resident's note and discussed the case with the resident. I agree with the resident's findings and plan as documented. SUBJECTIVE: OBJECTIVE: ASSESSMENT AND PLAN:
[2020-04-01] MEDS ORDERED: HYDROCORTISONE SOD SUCCINATE 100 MG/2 ML VIAL IVPUSH SCH (08:00)
== END 2020-03-31 18:46 | disposition home or self-care (01) | DRG 52 ==
LOC: JER 14:11 → JERBED 16:05 → JICU 20:51 → J5S 03-30 15:09
PROVIDERS: ADMIT Internal Medicine; ATTEND Internal Medicine
PROC: 5A1D70Z Performance of Urinary Filtration, Intermittent, Less than 6 Hours Per Day (ICD-10-PCS; principal; 2020-03-31)
DX: E03.5 Myxedema coma (principal); N18.6 End stage renal disease; I13.2 Hypertensive heart and chronic kidney disease with heart failure and with stage 5 chronic kidney disease, or end stage renal disease; E78.5 Hyperlipidemia, unspecified; J44.9 Chronic obstructive pulmonary disease, unspecified; E11.22 Type 2 diabetes mellitus with diabetic chronic kidney disease; E66.01 Morbid (severe) obesity due to excess calories; Z68.42 Body mass index [BMI] 45.0-49.9, adult; R41.82 Altered mental status, unspecified; I50.9 Heart failure, unspecified; E87.5 Hyperkalemia; G91.0 Communicating hydrocephalus; Z91.15 Patient's noncompliance with renal dialysis; G47.33 Obstructive sleep apnea (adult) (pediatric); G92 Toxic encephalopathy; I16.1 Hypertensive emergency; E03.9 Hypothyroidism, unspecified; D64.9 Anemia, unspecified
CPT/HCPCS: 36415; 36600; 70450-TC; 70551-TC; 71045-TC-FY; 76937; 80048; 80053; 81003; 82550; 82553; 82803; 82962; 83036; 83735; 84100; 84439; 84443; 84484; 85025; 85027; 85610; 85730; 86803; 86850; 86900; 86901; 87040; 87086; 87340; 93005; 93010; 93931; 94640; 94660; 97116-GP; 97162-GP; 99285-25; J0131; J1644; U0003

== ENCOUNTER 2020-05-11 10:03 | Emergency (ER) | payer OTHER ==
[2020-05-11 10:19] VITALS: TEMP 98.6; BMI 38.7
--- NOTE | 2020-05-11 11:14 | PDOC ---
Attending Attestation - Resident Resident Name: Gamaliel Hernandez - ED Attending Attestation I have performed the following: I have examined & evaluated the patient, The case was reviewed & discussed with the resident, I agree w/resident's findings & plan - HPI HPI: 05/11/20 11:10 55-year-old female with multiple medical problems including end-stage renal disease on dialysis Monday/Monday/Monday, history of myxedema coma status post admission here in March 2020 for somnolence/altered mental status, presents now brought in by boyfriend for evaluation of shaking episodes that have been happening almost every other day for the last 2 weeks during the night. Boyfriend describes chewing/lipsmacking with tongue biting and sometimes urinary incontinence, episodes last a couple of seconds and then resolved, they deny any associated postictal period, presented for evaluation today. No history of seizures, has chronic history of headaches, denies any other acute complaints on review of systems. Patient did have CT and MRI of brain during prior admission in March, notable for some ventricular dilatation, was not evaluated by neurology. - Physicial Exam PE: 05/11/20 11:14 Elevated blood pressure is baseline, afebrile Alert seated comfortably in stretcher, morbidly obese, otherwise in no acute distress, awake and pleasant Baseline left eye outward deviation, extraocular movements are otherwise intact Heart is regular, lungs are clear, abdomen benign 5-5 strength x4 extremities, [id number] intact, no pronator drift - Medical Decision Making 05/11/20 11:14 55-year-old female with multiple medical problems including end-stage renal disease and history of myxedema coma presents with seizure-like activity over the last 2 weeks, no history of seizures or polysubstance abuse, no evidence of acute infectious process or neuro deficit. Check labs, EKG Repeat CT head, review prior MRI with neurology Disposition accordingly with neurology consultation, discussed with Dr. Arnoldo Pena, patient's postdoctoral research associate, saw patient at bedside and will arrange for scheduled dialysis today. 05/11/20 14:33 ct head without acute findings. labs wnl, including K, BUN 68. Pt requesting AMA. D/W Dr. Mclaughlin (would initiate keppra and f/u in office) and Jaden (will expedite outpt HD since missed today). Pt s/o AMA, understands all levels of risks, understands return criteria and option for coming back anytime. Heart Score/ECG Review #1 ECG reviewed & interpreted by me at: 10:55 General ECG Interpretation: Sinus Rhythm, Normal Rate (66), Normal Intervals (qtc 438), No acute ischemic changes (t-wave flattening, PRWP) Compared to previous ECG there are: No significant change (c/w 03/25/20) Discharge - Discharge Information Problems reviewed: Yes Clinical Impression/Diagnosis: ESRD (end stage renal disease) on dialysis, Seizure-like activity HTN (hypertension) Qualifiers: Hypertension type: unspecified Qualified Code(s): I10 - Essential (primary) hypertension Condition: Fair - Follow up/Referral Referrals: Ale Mckeon MD [Primary Care Provider] - - Patient Discharge Instructions - Post Discharge Activity
--- NOTE | 2020-05-11 11:19 | EKG ---
Test Reason : Blood Pressure : / mmHG Vent. Rate : 066 BPM Atrial Rate : 066 BPM P-R Int : 154 ms QRS Dur : 072 ms QT Int : 418 ms P-R-T Axes : 047 -02 001 degrees QTc Int : 438 ms NORMAL SINUS RHYTHM ANTEROLATERAL INFARCT (CITED ON OR BEFORE 25-MAR-2020) ABNORMAL ECG WHEN COMPARED WITH ECG OF 25-MAR-2020 14:51, NO SIGNIFICANT CHANGE WAS FOUND Confirmed by LIDA CERDA MD ([id number]) on 05/11/2020 11:18:55 AM Referred By: Confirmed By:LIDA CERDA MD
--- NOTE | 2020-05-11 11:19 | PDOC ---
History of Present Illness - General Chief Complaint: Seizure Stated Complaint: GLOSSITIS Time Seen by Provider: 05/11/20 10:38 History Source: Patient Exam Limitations: No Limitations - History of Present Illness Initial Comments: 55 yo female pmh CKD on dialysis presents to the ED for 2 weeks of reported over night seizures with associated tongue bitting today with a swollen tongue. Pt denies hx of seizures and states almost every night her boyfriend reports that she has total body shaking for approximately 1 min with associated confusion and at times, urinates on herself. Pt denies SANTIAGO, changes in vision, neck pain, midline neck pain, N/V/F/C, CP, SOB, changes in gait, weakness or sensory changes on 1 side. Pt denies drooling, difficulty breathing/changes in breathing after noted tongue swelling, inability to eat or drink. Past History - Medical History Allergies/Adverse Reactions: Allergies Allergy/AdvReac Type Severity Reaction Status Date / Time Penicillins Allergy Verified 05/11/20 10:16 pollen extracts AdvReac Unknown Verified 03/25/20 14:30 shellfish derived AdvReac Unknown Verified 03/25/20 14:30 fish Allergy Uncoded 03/27/20 14:38 desir Allergy Uncoded 03/27/20 14:38 pineapple Allergy Uncoded 03/30/20 13:23 tomato sauce Allergy Uncoded 03/30/20 13:23 Home Medications: Ambulatory Orders Acetaminophen [Tylenol .Regular Strength -] 650 mg PO Q6H PRN tablet 09/25/19 Alcohol Antiseptic Pads [Alcohol Prep Pad] 1 each TP TID #1 box 10/04/19 Insulin Sliding Scale [Novolog Vial Sliding Scale -] 2 units SQ ACHS #7 pen 10/04/19 Levothyroxine [Synthroid -] 50 mcg PO DAILY #90 tablet 10/04/19 Paroxetine HCl [Paxil] 40 mg PO DAILY #90 tablet 10/04/19 Pen Needle, Diabetic, Safety [Assure Id Pen Needle] 1 each ACHS #100 dis.needle 10/04/19 Clonazepam [Klonopin] 2 mg PO HS 03/25/20 Atorvastatin Ca [Lipitor] 10 mg PO HS 03/31/20 Bupropion HCl [Bupropion Xl] 450 mg PO DAILY 03/31/20 Chlorpromazine [Thorazine -] 100 mg PO BID 03/31/20 Labetalol HCl 100 mg PO TID 30 Days #90 tablet 03/31/20 Levothyroxine Sodium [Synthroid] 200 mcg PO DAILY 03/31/20 Losartan 50Mg/Hctz 12.5MG [Hyzaar -] 1 tab PO DAILY #30 tablet 03/31/20 Nifedipine [Procardia Xl] 90 mg PO DAILY #30 tab.er.24 03/31/20 levETIRAcetam [Keppra -] 500 mg PO BID 10 Days #20 tablet 05/11/20 Cancer: Yes (thyroid) COPD: Yes Diabetes: Yes HTN: Yes Hypercholesterolemia: Yes Psychiatric Problems: Yes Thyroid Disease: Yes - Reproductive History Is Patient Now?: No - Immunization History Immunization Up to Date: Yes - Psycho-Social/Smoking History Smoking History: Current every day smoker Have you smoked in the past 12 months: No Information on smoking cessation initiated: No - Substance Abuse Hx (Audit-C & DAST Scrn) How often the patient has a drink containing alcohol: Never Score: In Men: 4 or > Positive; In Women: 3 or > Positive: 0 Screen Result (Pos requires Nsg. Audit-10AR): Negative In the last yr the pt used illegal drug/Rx for NonMed reason: No Score: Yes response is considered Positive: 0 Screen Result (Positive result requires Nsg. DAST-10): Negative Review of Systems - Review of Systems Constitutional: No: Fever, Weakness HEENTM: No: Blurred Vision, Double Vision Respiratory: No: Shortness of Breath Cardiac (ROS): No: Chest Pain ABD/GI: No: Constipated, Diarrhea, Nausea, Vomiting : No: Burning, Dysuria, Discharge, Frequency, Flank Pain Musculoskeletal: No: Back Pain Neurological: Yes: Seizure. No: Headache, Numbness, Unsteady Gait, Ataxia, Dizziness *Physical Exam - Vital Signs Last Vital Signs Temp Pulse Resp BP Pulse Ox 98.6 F 70 18 186/95 H 100 05/11/20 10:16 05/11/20 10:16 05/11/20 10:16 05/11/20 10:16 05/11/20 10:16 - Physical Exam General Appearance: Yes: Nourished, Appropriately Dressed. No: Apparent Distress HEENT: positive: EOMI, [place], Normal Voice, Hearing Grossly Normal, Other (tongue bite without significant swelling, tolerating saliva and PO intake. No stridor) Neck: positive: Supple. negative: Carotid bruit Respiratory/Chest: positive: Lungs Clear, Normal Breath Sounds. negative: Accessory Muscle Use, Rapid RR, Crackles, Rales, Rhonchi, Stridor, Wheezing Cardiovascular: positive: Regular Rhythm, Regular Rate, S1, S2. negative: Edema, JVD, Murmur Vascular Pulses: Dorsalis-Pedis (R): 4+, Doralis-Pedis (L): 4+ Gastrointestinal/Abdominal: positive: Flat, Soft. negative: Pulsatile Mass, Protuberent, Distended, Guarding, Rebound, Tenderness Musculoskeletal: negative: CVA Tenderness Extremity: positive: Normal Capillary Refill, Normal Inspection Integumentary: positive: Normal Color, Dry, Warm Neurologic: positive: general utility worker II-XII NML intact, Fully Oriented, Alert, Normal Mood/Affect, Normal Response, Motor Strength 5/5. negative: Facial Droop, Numbness, Sensory Deficit, Confused, Disoriented ED Treatment Course - LABORATORY CBC & Chemistry Diagram: 05/11/20 13:10 05/11/20 13:10 - RADIOLOGY Radiology Studies Ordered: Category Date Time Status HEAD CT WITHOUT CONTRAST [CT] Stat CT Scan 05/11/20 10:43 Ordered CHEST X-RAY PORTABLE* [RAD] Stat Radiology 05/11/20 10:42 Ordered Medical Decision Making - Medical Decision Making 05/11/20 11:20 55 yo female pmh HTN, CKD on dialysis presents to the ED for 2 weeks of reported over night seizures with associated tongue bitting today with a swollen tongue. Pt denies hx of seizures and states almost every night her boyfriend reports that she has total body shaking for approximately 1 min with associated confusio n and at times, urinates on herself. Pt denies SANTIAGO, changes in vision, neck pain, midline neck pain, N/V/F/C, CP, SOB, changes in gait, weakness or sensory changes on 1 side. Pt denies drooling, difficulty breathing/changes in breathing after noted tongue swelling, inability to eat or drink. Pt missed dialysis today when coming to the ED. Discussed case with Dr. Pena who is in the ED, recommends dialysis in hospital today due to inability to have dialysis outpatient today. Discussed case with Neurolgy, Dr. Hayden, pt will receive head CT and Keppra load with potential admission. MRI done in ED 03/2020 shows hydroceph without consult to neuro Pt states she will not stay in the hospital for dialysis or further monitoring, treatment or neuro evaluation today. Pt AOX3, demonstrates capacity and states she understands the risks of leaving the hospital today Dr. Pena informed and aware pt will be signing out AMA The patient is clinically not intoxicated, free from distracting pain, appears to have intact insight, judgment and reason and in my medical opinion has the capacity to make decisions. The patient is also not under any duress to leave the hospital. In this scenario, it would be battery to subject a patient to treatment against his/her will. I have voiced my concerns for the patient's health given that a full evaluation and treatment had not occurred. I have d iscussed the need for continued evaluation to determine if their symptoms are caused by a condition that present risk of or morbidity. Risks including but not limited to , permanent disability, prolonged hospitalization, prolonged illness, were discussed. I tried offering alternative options in hopes that the patient might be amenable to partial evaluation and treatment which would be medically beneficial to the patient, though the patient declined my options and insisted on leaving. Because I have been unable to convince the patient to stay, I answered all of their questions about their condition and asked them to return to the ED as soon as possible to complete their evaluation, especially if their symptoms worsen or do not improve. I emphasized that leaving against medical advice does not preclude returning here for further evaluation. I asked the patient to return if they change their mind about the further evaluation and treatment. I strongly encouraged the patient to return to this Emergency Department or any Emergency Department at any time, particularly with worsening symptoms. Discharge - Discharge Information Problems reviewed: Yes Clinical Impression/Diagnosis: ESRD (end stage renal disease) on dialysis, Seizure-like activity HTN (hypertension) Qualifiers: Hypertension type: unspecified Qualified Code(s): I10 - Essential (primary) hypertension Condition: Fair Disposition: HOME - Admission No - Additional Discharge Information Prescriptions: levETIRAcetam [Keppra -] 500 mg PO BID 10 Days #20 tablet - Follow up/Referral Referrals: Ale Mckeon MD [Primary Care Provider] - Hill Hayden MD [Staff Physician] - Dimitri Pena MD [Staff Physician] - - Patient Discharge Instructions Patient Printed Discharge Instructions: DI for Seizure Disorder -- Adult, DI for Dialysis Additional Instructions: Please see your Primary Doctor immediately. You required dialysis today and ongoing care and treatment for reported seizures in the hospital. You signed out against medical advise. You are always welcome back in the ER for further care and admission. THank you - Post Discharge Activity
[2020-05-11 13:24] LABS: BASO % 0.5 % (0-2.0); HEMATOCRIT 35.3 % (32.4-45.2); HEMOGLOBIN 11.8 GM/dL (10.7-15.3); LYMPH % 45.9 % (8-40); MCH 30.5 pg (25.7-33.7); MCHC 33.3 g/dl (32.0-36.0); MEAN CELL VOLUME 91.8 fl (80-96); MEAN PLT VOLUME 7.5 fl (7.5-11.1); MONO % 3.5 % (3.8-10.2); NEUT % 50.1 % (42.8-82.8); PLATELET COUNT 226 K/MM3 (134-434); RBC 3.85 M/mm3 (3.60-5.2); RDW 16.7 % (11.6-15.6); WHITE BLOOD COUNT 7.5 K/mm3 (4.0-10.0)
[2020-05-11 13:36] VITALS: BP 204/84; PULSE 82
[2020-05-11 13:38] LABS: PROTHROMBIN TIME (PATIENT) 11.8 SEC (9.7-13.0)
[2020-05-11 13:41] LABS: ACTIVATED PTT 37.9 SECONDS (25.2-36.5)
[2020-05-11 14:15] LABS: ALBUMIN 3.2 g/dl (3.4-5.0); ALK PHOS 222 U/L (45-117); ANION GAP 11 MMOL/L (8-16); BILIRUBIN,TOTAL 0.8 mg/dL (0.2-1); BLOOD UREA NITROGEN 68.2 mg/dL (7-18); CALCIUM 7.9 mg/dL (8.5-10.1); CHLORIDE 105 mmol/L (98-107); CO2 21 mmol/L (21-32); GLUCOSE,RANDOM 145 mg/dL (74-106); POTASSIUM 4.5 mmol/L (3.5-5.1); SGOT/AST 23 U/L (15-37); SGPT/ALT 27 U/L (13-61); SODIUM 138 mmol/L (136-145); TOT PROT 7.1 g/dl (6.4-8.2)
--- NOTE | 2020-05-11 14:39 | PN ---
Progress Note (short form) - Note Progress Note: - pt requesting to sign out of the hospital ama
--- NOTE | 2020-05-11 14:39 | CONSULT ---
Consult Consult Specialty:: Nephrology Reason for Consultation:: ESRD - History of Present Illness Chief Complaint: seizure like activity History of Present Illness: Pt is a 55 year old female with pmhx of esrd who presents to the ER with seizure like activity. She has been having it for 2 weeks. she had a witnessed convulsion. Her is at bedside and assisted with history. She is awake and alert. She denies shortness of breath. She is due for HD today. - History Source History Provided By: Patient - Past Medical History Cardio/Vascular: Yes: HTN Pulmonary: Yes: COPD Hepatobiliary: Yes: Other (hepatitis) ...LMP: 04/11/09 ...: No Psych: Yes: Addictions (ecstacy) Endocrine: Yes: Diabetes Mellitus, Hypothyroidism, Other (Thyroid ca) - Alcohol/Substance Use Hx Alcohol Use: (not known) - Smoking History Smoking history: Current every day smoker Have you smoked in the past 12 months: No - Social History Usual Living Arrangement: Alone Home Medications - Allergies Allergies/Adverse Reactions: Allergies Allergy/AdvReac Type Severity Reaction Status Date / Time Penicillins Allergy Verified 05/11/20 10:16 pollen extracts AdvReac Unknown Verified 03/25/20 14:30 shellfish derived AdvReac Unknown Verified 03/25/20 14:30 fish Allergy Uncoded 03/27/20 14:38 desir Allergy Uncoded 03/27/20 14:38 pineapple Allergy Uncoded 03/30/20 13:23 tomato sauce Allergy Uncoded 03/30/20 13:23 - Home Medications Home Medications: Ambulatory Orders RX: Acetaminophen [Tylenol .Regular Strength -] 650 mg PO Q6H PRN tablet 09/25/19 RX: Alcohol Antiseptic Pads [Alcohol Prep Pad] 1 each TP TID #1 box 10/04/19 RX: Insulin Sliding Scale [Novolog Vial Sliding Scale -] 2 units SQ ACHS #7 pen 10/04/19 RX: Levothyroxine [Synthroid -] 50 mcg PO DAILY #90 tablet 10/04/19 RX: Paroxetine HCl [Paxil] 40 mg PO DAILY #90 tablet 10/04/19 RX: Pen Needle, Diabetic, Safety [Assure Id Pen Needle] 1 each ACHS #100 dis.needle 10/04/19 RX: Clonazepam [Klonopin] 2 mg PO HS 03/25/20 Nifedipine [Procardia Xl] 90 mg PO DAILY #30 tab.er.24 03/31/20 RX: Atorvastatin Ca [Lipitor] 10 mg PO HS 03/31/20 RX: Bupropion HCl [Bupropion Xl] 450 mg PO DAILY 03/31/20 RX: Chlorpromazine [Thorazine -] 100 mg PO BID 03/31/20 RX: Labetalol HCl 100 mg PO TID 30 Days #90 tablet 03/31/20 RX: Levothyroxine Sodium [Synthroid] 200 mcg PO DAILY 03/31/20 RX: Losartan 50Mg/Hctz 12.5MG [Hyzaar -] 1 tab PO DAILY #30 tablet 03/31/20 Family Medical History Family History: Denies Review of Systems - Review of Systems Constitutional: reports: No Symptoms Eyes: reports: No Symptoms HENT: reports: No Symptoms Neck: reports: No Symptoms Cardiovascular: reports: No Symptoms Respiratory: reports: No Symptoms Gastrointestinal: reports: No Symptoms Genitourinary: reports: No Symptoms Musculoskeletal: reports: No Symptoms Integumentary: reports: No Symptoms Neurological: reports: Seizure Endocrine: reports: No Symptoms Hematology/Lymphatic: reports: No Symptoms Psychiatric: reports: No Symptoms Physical Exam Vital Signs: Vital Signs Temperature 98.6 F 05/11/20 10:16 Pulse Rate 82 05/11/20 13:35 Respiratory Rate 19 05/11/20 13:35 Blood Pressure 204/84 H 05/11/20 13:35 O2 Sat by Pulse Oximetry (%) 97 05/11/20 13:35 Constitutional: Yes: Calm Eyes: Yes: Conjunctiva Clear HENT: Yes: Atraumatic Neck: Yes: Supple Cardiovascular: Yes: S1, S2 Respiratory: Yes: CTA Bilaterally Gastrointestinal: Yes: Normal Bowel Sounds, Soft Renal/: Yes: WNL Musculoskeletal: Yes: WNL Edema: No Neurological: Yes: Oriented Psychiatric: Yes: Oriented Labs: CBC, BMP 05/11/20 13:10 05/11/20 13:10 Imaging - Results Cat Scan: Report Reviewed Assessment/Plan Impression 1. ESRD 2. missed HD 3. copd 4. hypothyroidism 5. hep B 6. anemia 7. DM 8. hypertension Plan - ct head negative - will arrange for HD today - resume home meds - neuro eval - discussed with er - resume home bp meds and repeat bp
[2020-05-11] MEDS ORDERED: levETIRAcetam 500 MG TABLET (FP) PO ONE ×2 (14:40→14:45)
[2020-05-11 14:42] LABS: CREATININE 9.4 mg/dL (0.55-1.3)
== END 2020-05-11 14:48 | disposition home or self-care (01) ==
LOC: JER 10:03
DX: N18.6 End stage renal disease (principal); I10 Essential (primary) hypertension
CPT/HCPCS: 36415; 70450-TC; 71045-TC-FY; 80053; 82550; 82553; 84443; 84484; 85025; 85610; 85730; 86803; 93005; 93010; 99285-25

== ENCOUNTER 2020-10-20 14:07 | Emergency (ER) | payer OTHER ==
[2020-10-20 15:25] VITALS: BP 131/72; PULSE 81; TEMP 98.8; BMI 43.4
[2020-10-20 16:48] LABS: BASO % 0.8 % (0-2.0); HEMATOCRIT 31.2 % (32.4-45.2); HEMOGLOBIN 10.7 GM/dL (10.7-15.3); LYMPH % 39.1 % (8-40); MCHC 34.4 g/dl (32.0-36.0); MEAN CELL VOLUME 93.1 fl (80-96); MEAN PLT VOLUME 8.4 fl (7.5-11.1); MONO % 3.6 % (3.8-10.2); NEUT % 56.5 % (42.8-82.8); PLATELET COUNT 243 K/MM3 (134-434); RBC 3.34 M/mm3 (3.60-5.2); RDW 13.6 % (11.6-15.6)
[2020-10-20 17:16] LABS: POTASSIUM 4.6 mmol/L (3.5-5.1)
[2020-10-20 17:18] LABS: BLOOD UREA NITROGEN 65.4 mg/dL (7-18); CALCIUM 8.6 mg/dL (8.5-10.1)
[2020-10-20 17:19] LABS: ALBUMIN 3.9 g/dl (3.4-5.0)
[2020-10-20 17:24] LABS: BILIRUBIN,TOTAL 0.4 mg/dL (0.2-1); TOT PROT 8.5 g/dl (6.4-8.2)
[2020-10-20 17:56] LABS: CREATININE 10.8 mg/dL (0.55-1.3)
[2020-10-20 18:14] LABS: EPI CELLS >36 /uL (0-25.1); HYALINE CASTS 1 /uL (0-3.1); PH,URINE 5.5 (5.0-8.0); URINE APPEARANCE CLOUDY; URINE BACTERIA 3130 /uL (0-1359); URINE BILIRUBIN NEGATIVE (NEGATIVE); URINE COLOR YELLOW; URINE GLUCOSE (UA) TRACE (NEGATIVE); URINE KETONE NEGATIVE (NEGATIVE); URINE LEUK ESTERASE NEGATIVE (NEGATIVE); URINE NITRITE NEGATIVE (NEGATIVE); URINE PROTEIN 4+ (NEGATIVE); URINE RBC 18 /uL (0-23.9); URINE UROBILINOGEN 0.2 mg/dL (0.2-1.0); URINE WBC 20 /uL (0-25.8)
== END 2020-10-20 19:31 | disposition left against medical advice (07) ==
LOC: JER 14:07
DX: R06.02 Shortness of breath (principal); R79.89 Other specified abnormal findings of blood chemistry
CPT/HCPCS: 36415; 71045-TC-FY; 80053; 81003; 82550; 82553; 82962; 84484; 85025; 87086; 93005; 93010; 99285-25

== ENCOUNTER 2021-01-18 13:22 | Emergency (ER) | payer OTHER ==
[2021-01-18 13:51] VITALS: BP 218/106; PULSE 75; TEMP 98.7; BMI 48.5
[2021-01-18] MEDS ORDERED: ALBUTEROL SO4 HFA INHALER IH ONE ×2 (14:49→15:02)
[2021-01-18 17:44] LABS: BASO % 0.5 % (0-2.0); HEMOGLOBIN 9.2 GM/dL (10.7-15.3); LYMPH % 36.4 % (8-40); MCH 32.1 pg (25.7-33.7); MCHC 34.1 g/dl (32.0-36.0); MEAN PLT VOLUME 8.1 fl (7.5-11.1); MONO % 4.1 % (3.8-10.2); PLATELET COUNT 187 K/MM3 (134-434); RBC 2.88 M/mm3 (3.60-5.2); RDW 14.3 % (11.6-15.6)
[2021-01-18] MEDS ORDERED: ACETAMINOPHEN 325 MG TABLET (FP) PO ONE (17:44)
[2021-01-18 17:48] LABS: CHLORIDE 104 mmol/L (98-107); SODIUM 138 mmol/L (136-145)
[2021-01-18] MEDS ORDERED: ACETAMINOPHEN 325 MG TABLET (FP) ONE (17:48)
[2021-01-18 17:50] LABS: CALCIUM 8.5 mg/dL (8.5-10.1)
[2021-01-18 17:51] LABS: ALBUMIN 3.7 g/dl (3.4-5.0); ANION GAP 10 MMOL/L (8-16); BLOOD UREA NITROGEN 65.4 mg/dL (7-18); CO2 25 mmol/L (21-32); GLUCOSE,RANDOM 148 mg/dL (74-106)
[2021-01-18 17:54] LABS: SGOT/AST 30 U/L (15-37); SGPT/ALT 38 U/L (13-61)
[2021-01-18 17:56] LABS: BILIRUBIN,TOTAL 0.4 mg/dL (0.2-1); TOT PROT 7.4 g/dl (6.4-8.2)
[2021-01-18 17:57] LABS: ALK PHOS 193 U/L (45-117)
[2021-01-18 18:21] LABS: CREATININE 9.6 mg/dL (0.55-1.3)
== END 2021-01-18 18:57 | disposition left against medical advice (07) ==
LOC: JER 13:22
PROC: 3E0F7GC Introduction of Other Therapeutic Substance into Respiratory Tract, Via Natural or Artificial Opening (ICD-10-PCS; principal; 2021-01-18)
DX: I12.0 Hypertensive chronic kidney disease with stage 5 chronic kidney disease or end stage renal disease (principal); R06.02 Shortness of breath; S32.10XA Unspecified fracture of sacrum, initial encounter for closed fracture
CPT/HCPCS: 36415; 70450-TC; 71045-TC-FY; 72125-TC; 72128-TC; 72131-TC; 73562-TC-RT-FY; 80053; 82550; 82553; 84439; 84443; 84484; 85025; 93005; 93010; 99285-25; C9803; U0003; U0005

== ENCOUNTER 2021-03-10 16:55 | Inpatient (IN) | payer OTHER ==
[2021-03-10 17:40] VITALS: BMI 47.2
[2021-03-10 18:08] LABS: BASO % 0.7 % (0-2.0); HEMATOCRIT 24.9 % (32.4-45.2); HEMOGLOBIN 8.4 GM/dL (10.7-15.3); LYMPH % 23.2 % (8-40); MCH 30.9 pg (25.7-33.7); MCHC 33.8 g/dl (32.0-36.0); MEAN CELL VOLUME 91.3 fl (80-96); MEAN PLT VOLUME 7.1 fl (7.5-11.1); MONO % 4.6 % (3.8-10.2); NEUT % 71.5 % (42.8-82.8); PLATELET COUNT 247 10^3/uL (134-434); RBC 2.73 M/mm3 (3.60-5.2); RDW 14.4 % (11.6-15.6); WHITE BLOOD COUNT 5.9 K/mm3 (4.0-10.0)
[2021-03-10 18:50] LABS: CHLORIDE 95 mmol/L (98-107); SODIUM 128 mmol/L (136-145)
[2021-03-10 18:57] LABS: ALBUMIN 3.4 g/dl (3.4-5.0); ANION GAP 12 MMOL/L (8-16); CALCIUM 8.7 mg/dL (8.5-10.1); CO2 21 mmol/L (21-32)
[2021-03-10 18:58] LABS: BLOOD UREA NITROGEN 79.2 mg/dL (7-18); GLUCOSE,RANDOM 148 mg/dL (74-106)
[2021-03-10 19:00] LABS: SGOT/AST 23 U/L (15-37); SGPT/ALT 23 U/L (13-61)
[2021-03-10 19:01] LABS: BILIRUBIN,TOTAL 0.5 mg/dL (0.2-1)
[2021-03-10 19:02] LABS: ALK PHOS 142 U/L (45-117)
[2021-03-10 19:29] LABS: ARTERIAL BLD GAS O2 SATURATION 98.4 mmHg (95-98); ARTERIAL BLOOD GAS BASE EXCESS -5.5 mmol/L (-2-2); ARTERIAL BLOOD GAS PO2 134.7 mmHg (80-100)
[2021-03-10 19:31] LABS: ALLENS TEST POSITIVE
[2021-03-10 19:38] LABS: CREATININE 9.9 mg/dL (0.55-1.3)
[2021-03-10 21:35] LABS: EPI CELLS >36 /uL (0-25.1); HYALINE CASTS 2 /uL (0-3.1); PH,URINE 5.5 (5.0-8.0); URINE APPEARANCE CLEAR; URINE BACTERIA 15 /uL (0-1359); URINE BILIRUBIN NEGATIVE (NEGATIVE); URINE COLOR YELLOW; URINE GLUCOSE (UA) 1+ (NEGATIVE); URINE KETONE NEGATIVE (NEGATIVE); URINE LEUK ESTERASE NEGATIVE (NEGATIVE); URINE NITRITE NEGATIVE (NEGATIVE); URINE PROTEIN 4+ (NEGATIVE); URINE RBC 12 /uL (0-23.9); URINE UROBILINOGEN 0.2 mg/dL (0.2-1.0); URINE WBC 17 /uL (0-25.8)
[2021-03-11] MEDS: INSULIN SLIDING SCALE (NOVOLOG) 1 VIAL SQ SCH ×6 (05:54→22:11)
[2021-03-11] MEDS: HEPARIN NA (PORCINE) 5,000 UNITS/ML 1ML VIAL SQ SCH ×3 (06:03→22:17)
[2021-03-11] MEDS ORDERED: SODIUM CHLORIDE 250 ML IV PRN (06:33)
[2021-03-11 06:59] LABS: BASO % 0.5 % (0-2.0); HEMATOCRIT 26.2 % (32.4-45.2); HEMOGLOBIN 8.7 GM/dL (10.7-15.3); LYMPH % 20.2 % (8-40); MCH 31.1 pg (25.7-33.7); MCHC 33.2 g/dl (32.0-36.0); MEAN CELL VOLUME 93.7 fl (80-96); MEAN PLT VOLUME 8.1 fl (7.5-11.1); MONO % 4.9 % (3.8-10.2); NEUT % 74.4 % (42.8-82.8); PLATELET COUNT 243 10^3/uL (134-434); RDW 14.1 % (11.6-15.6); WHITE BLOOD COUNT 7.2 K/mm3 (4.0-10.0)
[2021-03-11 07:14] LABS: CHLORIDE 96 mmol/L (98-107); SODIUM 129 mmol/L (136-145)
[2021-03-11 07:16] LABS: ANION GAP 13 MMOL/L (8-16); BLOOD UREA NITROGEN 76.1 mg/dL (7-18); CALCIUM 8.6 mg/dL (8.5-10.1); CO2 21 mmol/L (21-32); GLUCOSE,RANDOM 124 mg/dL (74-106); MAGNESIUM 1.8 mg/dL (1.8-2.4)
[2021-03-11 07:20] LABS: CREATININE 10.4 mg/dL (0.55-1.3)
[2021-03-11 09:03] LABS: INR 1.06 (0.83-1.09)
[2021-03-11 09:06] LABS: ACTIVATED PTT 35.5 SECONDS (25.2-36.5)
[2021-03-11] MEDS ORDERED: levETIRAcetam 500 MG TABLET (FP) PO SCH (10:00)
[2021-03-11] MEDS ORDERED: ALBUTEROL SO4 HFA INHALER IH PRN (10:00)
[2021-03-11] MEDS ORDERED: PARoxetine HCL 10 MG TABLET ONE (10:06)
[2021-03-11] MEDS ORDERED: PT OWN MED DRAWER 7, Y5N ONE ×2 (10:07→17:37)
[2021-03-11] MEDS: LEVOTHYROXINE NA 200 MCG TABLET PO SCH (17:40)
[2021-03-11] MEDS: PARoxetine HCL 20 MG TABLET PO SCH (17:41)
[2021-03-11] MEDS: LABETALOL HCL 100 MG TABLET (FP) PO SCH ×2 (17:42→22:17)
[2021-03-11] MEDS ORDERED: levETIRAcetam 500 MG TABLET (FP) PO ONE (22:00)
[2021-03-12] MEDS: INSULIN SLIDING SCALE (NOVOLOG) 1 VIAL SQ SCH ×6 (01:00→20:06)
[2021-03-12] MEDS ORDERED: PT OWN MED DRAWER 7, Y5N ONE (06:46)
[2021-03-12] MEDS: HEPARIN NA (PORCINE) 5,000 UNITS/ML 1ML VIAL SQ SCH ×3 (06:55→21:02)
[2021-03-12] MEDS: LEVOTHYROXINE NA 200 MCG TABLET PO SCH (06:56)
[2021-03-12] MEDS: LABETALOL HCL 100 MG TABLET (FP) PO SCH ×3 (06:56→21:02)
[2021-03-12 09:18] LABS: CALCIUM 7.9 mg/dL (8.5-10.1)
[2021-03-12 09:19] LABS: BLOOD UREA NITROGEN 41.6 mg/dL (7-18)
[2021-03-12 09:22] LABS: CREATININE 6.6 mg/dL (0.55-1.3)
[2021-03-12] MEDS ORDERED: levETIRAcetam 500 MG TABLET (FP) PO SCH (10:00)
[2021-03-12] MEDS: DEXTROSE 5%-WATER - 1,000 ML IV SCH (10:49)
[2021-03-12] MEDS: PARoxetine HCL 20 MG TABLET PO SCH (10:53)
[2021-03-12] MEDS ORDERED: SODIUM CHLORIDE 250 ML IV PRN (14:15)
[2021-03-12] MEDS: LABETALOL HCL 5 MG/1 ML (100MG/20 ML VIAL) IVPUSH PRN (17:54)
[2021-03-12] MEDS: LEVOTHYROXINE SODIUM 100 MCG VIAL IVPUSH SCH (18:13)
[2021-03-12] MEDS: levETIRAcetam 500 MG/5 ML INJECTION VIAL IVPB SCH (21:01)
[2021-03-12] MEDS: THIAMINE HCL 200 MG/2 ML VIAL IVPB SCH (22:29)
[2021-03-13] MEDS: INSULIN SLIDING SCALE (NOVOLOG) 1 VIAL SQ SCH ×5 (00:42→22:50)
[2021-03-13] MEDS: LABETALOL HCL 100 MG TABLET (FP) PO SCH ×3 (05:54→22:27)
[2021-03-13] MEDS: HEPARIN NA (PORCINE) 5,000 UNITS/ML 1ML VIAL SQ SCH ×3 (05:54→22:27)
[2021-03-13] MEDS: THIAMINE HCL 200 MG/2 ML VIAL IVPB SCH ×3 (05:55→22:31)
[2021-03-13] MEDS ORDERED: PT OWN MED DRAWER 7, Y5N ONE (05:59)
[2021-03-13] MEDS: LEVOTHYROXINE SODIUM 100 MCG VIAL IVPUSH SCH (06:51)
[2021-03-13] MEDS ORDERED: PARoxetine HCL 10 MG TABLET ONE (08:33)
[2021-03-13] MEDS: DEXTROSE 5%-WATER - 1,000 ML IV SCH (08:52)
[2021-03-13] MEDS: levETIRAcetam 500 MG/5 ML INJECTION VIAL IVPB SCH (09:08)
[2021-03-13] MEDS: PARoxetine HCL 20 MG TABLET PO SCH (09:16)
[2021-03-13 09:17] LABS: BASO % 0.8 % (0-2.0); HEMOGLOBIN 8.6 GM/dL (10.7-15.3); LYMPH % 25.1 % (8-40); MCH 30.9 pg (25.7-33.7); MCHC 33.1 g/dl (32.0-36.0); MEAN CELL VOLUME 93.6 fl (80-96); MEAN PLT VOLUME 8.4 fl (7.5-11.1); MONO % 5.3 % (3.8-10.2); NEUT % 68.8 % (42.8-82.8); PLATELET COUNT 237 10^3/uL (134-434); RBC 2.77 M/mm3 (3.60-5.2); RDW 14.7 % (11.6-15.6); WHITE BLOOD COUNT 5.2 K/mm3 (4.0-10.0)
[2021-03-13 09:32] LABS: ALBUMIN 3.2 g/dl (3.4-5.0); BLOOD UREA NITROGEN 26.4 mg/dL (7-18)
[2021-03-13 09:35] LABS: CREATININE 4.9 mg/dL (0.55-1.3)
[2021-03-13 09:37] LABS: BILIRUBIN,TOTAL 0.4 mg/dL (0.2-1); TOT PROT 6.8 g/dl (6.4-8.2)
[2021-03-13] MEDS ORDERED: ACETAMINOPHEN WITH CODEINE 300MG/30MG TABLET PO PRN (10:54)
[2021-03-13 16:17] LABS: HEP B CORE AB, TOT Positive (Negative)
[2021-03-13] MEDS: levETIRAcetam 500 MG TABLET (FP) PO SCH (22:27)
[2021-03-14] MEDS: LABETALOL HCL 100 MG TABLET (FP) PO SCH ×3 (05:35→21:18)
[2021-03-14] MEDS: HEPARIN NA (PORCINE) 5,000 UNITS/ML 1ML VIAL SQ SCH ×3 (05:35→21:18)
[2021-03-14] MEDS: THIAMINE HCL 200 MG/2 ML VIAL IVPB SCH ×3 (05:35→21:27)
[2021-03-14] MEDS: INSULIN SLIDING SCALE (NOVOLOG) 1 VIAL SQ SCH ×4 (06:13→21:27)
[2021-03-14] MEDS ORDERED: LEVOTHYROXINE NA 25 MCG TABLET (FP) PO SCH (07:00)
[2021-03-14 07:52] LABS: HEMATOCRIT 25.8 % (32.4-45.2); HEMOGLOBIN 8.6 GM/dL (10.7-15.3); MCH 31.2 pg (25.7-33.7); MCHC 33.2 g/dl (32.0-36.0); MEAN CELL VOLUME 93.9 fl (80-96); MEAN PLT VOLUME 7.8 fl (7.5-11.1); PLATELET COUNT 221 10^3/uL (134-434); RBC 2.75 M/mm3 (3.60-5.2); RDW 14.4 % (11.6-15.6); WHITE BLOOD COUNT 5.6 K/mm3 (4.0-10.0)
[2021-03-14 08:47] LABS: BLOOD UREA NITROGEN 34.9 mg/dL (7-18); CALCIUM 7.5 mg/dL (8.5-10.1)
[2021-03-14] MEDS ORDERED: PARoxetine HCL 10 MG TABLET ONE (08:54)
[2021-03-14] MEDS: DEXTROSE 5%-WATER - 1,000 ML IV SCH (09:54)
[2021-03-14] MEDS: levETIRAcetam 500 MG TABLET (FP) PO SCH ×2 (09:57→21:18)
[2021-03-14] MEDS: PARoxetine HCL 20 MG TABLET PO SCH (09:57)
[2021-03-14] MEDS ORDERED: SODIUM CHLORIDE 250 ML IV PRN (12:31)
[2021-03-14] MEDS ORDERED: LEVOTHYROXINE NA 100 MCG TABLET (FP) PO SCH (12:56)
[2021-03-15] MEDS: THIAMINE HCL 200 MG/2 ML VIAL IVPB SCH (05:42)
[2021-03-15] MEDS: LABETALOL HCL 100 MG TABLET (FP) PO SCH ×3 (05:42→21:35)
[2021-03-15] MEDS: HEPARIN NA (PORCINE) 5,000 UNITS/ML 1ML VIAL SQ SCH ×3 (05:42→21:35)
[2021-03-15] MEDS: INSULIN SLIDING SCALE (NOVOLOG) 1 VIAL SQ SCH ×4 (06:15→21:41)
[2021-03-15 06:49] LABS: HEMATOCRIT 25.3 % (32.4-45.2); HEMOGLOBIN 8.5 GM/dL (10.7-15.3); MCH 31.4 pg (25.7-33.7); MCHC 33.8 g/dl (32.0-36.0); MEAN PLT VOLUME 7.5 fl (7.5-11.1); PLATELET COUNT 202 10^3/uL (134-434); RBC 2.72 M/mm3 (3.60-5.2); RDW 14.1 % (11.6-15.6); WHITE BLOOD COUNT 5.4 K/mm3 (4.0-10.0)
[2021-03-15 07:07] LABS: ALBUMIN 2.9 g/dl (3.4-5.0)
[2021-03-15 07:08] LABS: BLOOD UREA NITROGEN 35.1 mg/dL (7-18)
[2021-03-15 07:09] LABS: CALCIUM 7.8 mg/dL (8.5-10.1)
[2021-03-15 07:12] LABS: BILIRUBIN,TOTAL 0.5 mg/dL (0.2-1); TOT PROT 6.2 g/dl (6.4-8.2)
[2021-03-15] MEDS ORDERED: PARoxetine HCL 10 MG TABLET ONE (08:12)
[2021-03-15] MEDS: levETIRAcetam 500 MG TABLET (FP) PO SCH ×2 (09:19→21:35)
[2021-03-15] MEDS: PARoxetine HCL 20 MG TABLET PO SCH (09:19)
[2021-03-15] MEDS ORDERED: LEVOTHYROXINE NA 100 MCG TABLET (FP) PO SCH (12:02)
[2021-03-15] MEDS ORDERED: EPOETIN ALFA-EPBX 4,000 UNIT/ML VIAL SQ ONE (12:30)
[2021-03-15] MEDS: THIAMINE HCL 100 MG TABLET (FP) PO SCH (21:35)
[2021-03-16] MEDS: INSULIN SLIDING SCALE (NOVOLOG) 1 VIAL SQ SCH ×4 (06:40→21:54)
[2021-03-16] MEDS: HEPARIN NA (PORCINE) 5,000 UNITS/ML 1ML VIAL SQ SCH ×3 (06:40→21:54)
[2021-03-16] MEDS: LABETALOL HCL 100 MG TABLET (FP) PO SCH ×3 (06:40→21:54)
[2021-03-16] MEDS: LEVOTHYROXINE 200 MCG, LEVOTHYROXINE 25 MCG PO SCH (06:40)
[2021-03-16] MEDS: LABETALOL HCL 5 MG/1 ML (100MG/20 ML VIAL) IVPUSH PRN (06:41)
[2021-03-16] MEDS ORDERED: LEVOTHYROXINE 200 MCG, LEVOTHYROXINE 25 MCG PO SCH (07:00)
[2021-03-16] MEDS ORDERED: LEVOTHYROXINE NA 200 MCG TABLET PO SCH (07:00)
[2021-03-16] MEDS ORDERED: PARoxetine HCL 10 MG TABLET ONE (10:35)
[2021-03-16] MEDS: THIAMINE HCL 100 MG TABLET (FP) PO SCH ×2 (11:04→21:54)
[2021-03-16] MEDS: levETIRAcetam 500 MG TABLET (FP) PO SCH ×2 (11:05→21:54)
[2021-03-16] MEDS: PARoxetine HCL 20 MG TABLET PO SCH (11:05)
[2021-03-16] MEDS ORDERED: SODIUM CHLORIDE 250 ML IV PRN (15:07)
[2021-03-17] MEDS ORDERED: PT OWN MED DRAWER 7, Y5N ONE (06:04)
[2021-03-17] MEDS: INSULIN SLIDING SCALE (NOVOLOG) 1 VIAL SQ SCH ×4 (06:43→22:00)
[2021-03-17] MEDS: LEVOTHYROXINE 200 MCG, LEVOTHYROXINE 25 MCG PO SCH (06:43)
[2021-03-17] MEDS: HEPARIN NA (PORCINE) 5,000 UNITS/ML 1ML VIAL SQ SCH ×3 (06:43→22:12)
[2021-03-17] MEDS: LABETALOL HCL 100 MG TABLET (FP) PO SCH ×3 (06:43→22:12)
[2021-03-17 09:53] LABS: ALLENS TEST POSITIVE
[2021-03-17 09:54] LABS: ARTERIAL BLD GAS O2 SATURATION 99.3 mmHg (95-98); ARTERIAL BLOOD GAS BASE EXCESS 3.6 mmol/L (-2-2); ARTERIAL BLOOD GAS PO2 181.5 mmHg (80-100); ARTERIAL BLOOD GAS pH 7.482 (7.350-7.450)
[2021-03-17] MEDS: THIAMINE HCL 100 MG TABLET (FP) PO SCH ×2 (12:24→22:12)
[2021-03-17] MEDS: levETIRAcetam 500 MG TABLET (FP) PO SCH ×2 (12:24→22:12)
[2021-03-17] MEDS ORDERED: EPOETIN ALFA-EPBX 4,000 UNIT/ML VIAL SQ ONE ×2 (15:07)
[2021-03-17 18:07] LABS: HEMATOCRIT 25.6 % (32.4-45.2); HEMOGLOBIN 8.5 GM/dL (10.7-15.3); MCH 30.8 pg (25.7-33.7); MCHC 33.1 g/dl (32.0-36.0); MEAN CELL VOLUME 92.9 fl (80-96); MEAN PLT VOLUME 7.9 fl (7.5-11.1); PLATELET COUNT 216 10^3/uL (134-434); RBC 2.76 M/mm3 (3.60-5.2); RDW 13.9 % (11.6-15.6); WHITE BLOOD COUNT 4.6 K/mm3 (4.0-10.0)
[2021-03-17 18:27] LABS: CALCIUM 8.1 mg/dL (8.5-10.1)
[2021-03-17 18:28] LABS: BLOOD UREA NITROGEN 24.1 mg/dL (7-18)
[2021-03-17 18:31] LABS: CREATININE 6.3 mg/dL (0.55-1.3)
[2021-03-17] MEDS ORDERED: PARoxetine HCL 10 MG TABLET ONE (21:08)
[2021-03-17] MEDS: PARoxetine HCL 20 MG TABLET PO SCH (22:12)
[2021-03-17] MEDS: AMINO ACIDS/PROTEIN HYDROLYS 30 ML LIQUID.PKT PO SCH (22:12)
[2021-03-18] MEDS ORDERED: PT OWN MED DRAWER 7, Y5N ONE (06:07)
[2021-03-18] MEDS: LABETALOL HCL 100 MG TABLET (FP) PO SCH ×3 (06:56→21:32)
[2021-03-18] MEDS: INSULIN SLIDING SCALE (NOVOLOG) 1 VIAL SQ SCH ×3 (06:56→16:39)
[2021-03-18] MEDS: LEVOTHYROXINE 200 MCG, LEVOTHYROXINE 25 MCG PO SCH (06:56)
[2021-03-18] MEDS ORDERED: PARoxetine HCL 10 MG TABLET ONE ×2 (08:40→08:42)
[2021-03-18] MEDS: AMINO ACIDS/PROTEIN HYDROLYS 30 ML LIQUID.PKT PO SCH ×2 (09:13→16:39)
[2021-03-18] MEDS: THIAMINE HCL 100 MG TABLET (FP) PO SCH ×2 (09:14→21:32)
[2021-03-18] MEDS: PARoxetine HCL 20 MG TABLET PO SCH (09:15)
[2021-03-18] MEDS ORDERED: MULTIVIT-MINERALS ORAL LIQUID PO SCH (10:00)
[2021-03-18] MEDS ORDERED: amLODIPine BESYLATE 5 MG TABLET (FP) PO SCH (10:00)
[2021-03-18] MEDS ORDERED: SODIUM CHLORIDE 250 ML IV PRN (10:08)
[2021-03-18 18:39] VITALS: BP 147/71; TEMP 98.9
[2021-03-18 20:23] VITALS: PULSE 54
[2021-03-19] MEDS ORDERED: EPOETIN ALFA-EPBX 10,000 UNIT/ML VIAL SQ ONE (10:08)
== END 2021-03-18 21:30 | DRG 470 ==
LOC: JER 16:55 → JERBED 21:10 → J4S 03-11 04:14
PROVIDERS: ADMIT Hospitalist; ATTEND Family Medicine
PROC: 5A1D70Z Performance of Urinary Filtration, Intermittent, Less than 6 Hours Per Day (ICD-10-PCS; principal; 2021-03-17)
DX: I12.0 Hypertensive chronic kidney disease with stage 5 chronic kidney disease or end stage renal disease (principal); E87.1 Hypo-osmolality and hyponatremia; J44.9 Chronic obstructive pulmonary disease, unspecified; E03.9 Hypothyroidism, unspecified; Z99.2 Dependence on renal dialysis; E87.70 Fluid overload, unspecified; E11.22 Type 2 diabetes mellitus with diabetic chronic kidney disease; G93.41 Metabolic encephalopathy; N18.6 End stage renal disease; E87.2 Acidosis; I31.3 Pericardial effusion (noninflammatory); G47.33 Obstructive sleep apnea (adult) (pediatric); E66.9 Obesity, unspecified; Z68.42 Body mass index [BMI] 45.0-49.9, adult; E11.42 Type 2 diabetes mellitus with diabetic polyneuropathy; F32.9 Major depressive disorder, single episode, unspecified; F17.210 Nicotine dependence, cigarettes, uncomplicated; Z88.0 Allergy status to penicillin
CPT/HCPCS: 36415; 36600; 70450-TC; 71045-TC-FY; 71250-TC; 80048; 80053; 80177; 81003; 82550; 82553; 82803; 82962; 83735; 84439; 84443; 84480; 84481; 84484; 85025; 85027; 85610; 85730; 86704; 86706; 86707; 86708; 86709; 86803; 87040; 87086; 87340; 93005; 93010; 93306-TC; 93970-TC; 94660; 97116-GP; 97161-GP; 99285-25; C9803; J1644; Q5106; U0003; U0005

== ENCOUNTER 2021-03-20 01:14 | Inpatient (IN) | payer OTHER ==
[2021-03-20 02:10] VITALS: BMI 52.9
[2021-03-20 02:28] LABS: BASO % 0.3 % (0-2.0); HEMATOCRIT 28.9 % (32.4-45.2); HEMOGLOBIN 9.5 GM/dL (10.7-15.3); LYMPH % 9.1 % (8-40); MCH 30.6 pg (25.7-33.7); MCHC 32.7 g/dl (32.0-36.0); MEAN CELL VOLUME 93.4 fl (80-96); MONO % 1.3 % (3.8-10.2); NEUT % 89.3 % (42.8-82.8); PLATELET COUNT 224 10^3/uL (134-434); RDW 14.7 % (11.6-15.6); WHITE BLOOD COUNT 6.4 K/mm3 (4.0-10.0)
[2021-03-20 02:30] LABS: VENOUS BASE EXCESS 1.5 mmol/L (-2-2); VENOUS O2 SATURATION 80.1 % (70-80); VENOUS PCO2 62.8 mmHg (38-52); VENOUS PH 7.285 (7.310-7.410)
[2021-03-20 02:35] LABS: INR 1.07 (0.83-1.09); PROTHROMBIN TIME (PATIENT) 13.1 SEC (9.7-13.0)
[2021-03-20 02:38] LABS: ACTIVATED PTT 35.9 SECONDS (25.2-36.5)
[2021-03-20 02:48] LABS: ALBUMIN 3.4 g/dl (3.4-5.0); CALCIUM 8.5 mg/dL (8.5-10.1)
[2021-03-20 02:49] LABS: BLOOD UREA NITROGEN 26.9 mg/dL (7-18)
[2021-03-20 02:52] LABS: CREATININE 6.3 mg/dL (0.55-1.3)
[2021-03-20 02:53] LABS: BILIRUBIN,TOTAL 0.4 mg/dL (0.2-1); TOT PROT 7.5 g/dl (6.4-8.2)
[2021-03-20 03:25] LABS: N-TERMINAL BNP 43022.8 pg/ml (5-125)
[2021-03-20 04:56] LABS: VENOUS BASE EXCESS 4.1 mmol/L (-2-2); VENOUS O2 SATURATION 90.2 % (70-80); VENOUS PH 7.266 (7.310-7.410)
[2021-03-20 06:59] LABS: ARTERIAL BLD GAS O2 SATURATION 94.3 mmHg (95-98); ARTERIAL BLOOD GAS BASE EXCESS -0.5 mmol/L (-2-2); ARTERIAL BLOOD GAS pH 7.238 (7.350-7.450)
[2021-03-20] MEDS ORDERED: MEROPENEM 500 MG in DEXTROSE 5%-WATER 100 ML IVPB ONE (08:02)
[2021-03-20] MEDS ORDERED: VANCOMYCIN 1 GM in D5W (PRE-DOCKED) 1,000 MG/250 ML IVPB ONE (08:02)
[2021-03-20] MEDS ORDERED: MEROPENEM 500 MG VIAL (RESTRICTED TO ID) IVPB ONE (08:26)
[2021-03-20] MEDS ORDERED: VANCOMYCIN 1 GRAM (PRE-DOCKED) 1,000 MG/250 ML BAG IVPB ONE (08:27)
[2021-03-20 09:23] LABS: MAGNESIUM 2.1 mg/dL (1.8-2.4)
[2021-03-20 09:26] LABS: PHOSPHOROUS 4.6 mg/dL (2.5-4.9)
[2021-03-20 09:42] LABS: ARTERIAL BLD GAS O2 SATURATION 97.4 mmHg (95-98); ARTERIAL BLOOD GAS BASE EXCESS 4.4 mmol/L (-2-2); ARTERIAL BLOOD GAS PO2 111.1 mmHg (80-100); ARTERIAL BLOOD GAS pH 7.288 (7.350-7.450)
[2021-03-20] MEDS ORDERED: ALBUTEROL SO4 2.5/IPRATROPIUM 0.5 INH SOL 3 ML VIAL.NEB. NEB ONE ×2 (09:59→10:05)
[2021-03-20] MEDS: HEPARIN NA (PORCINE) 5,000 UNITS/ML 1ML VIAL SQ SCH ×2 (15:33→21:15)
[2021-03-20] MEDS ORDERED: SODIUM CHLORIDE 250 ML IV PRN ×2 (16:02)
[2021-03-20] MEDS ORDERED: EPOETIN ALFA-EPBX 10,000 UNIT/ML VIAL IVPUSH ONE (16:15)
[2021-03-20] MEDS ORDERED: PT OWN MED DRAWER 7, Y5N ONE ×2 (19:35→21:10)
[2021-03-20] MEDS: ATORVASTATIN CA 10 MG TABLET (FP) PO SCH (21:14)
[2021-03-20] MEDS: hydrALAZINE HCL 50 MG TABLET (FP) PO SCH (21:15)
[2021-03-20] MEDS: levETIRAcetam 500 MG TABLET (FP) PO SCH (21:15)
[2021-03-20] MEDS: LABETALOL HCL 100 MG TABLET (FP) PO SCH (21:15)
[2021-03-20] MEDS: chlorproMAZINE HCL 100 MG TABLET PO SCH (21:22)
[2021-03-20 22:38] LABS: ARTERIAL BLD GAS O2 SATURATION 97.6 mmHg (95-98); ARTERIAL BLOOD GAS BASE EXCESS 6.5 mmol/L (-2-2); ARTERIAL BLOOD GAS PO2 103.8 mmHg (80-100); ARTERIAL BLOOD GAS pH 7.396 (7.350-7.450)
[2021-03-20 22:39] LABS: ALLENS TEST POSITIVE; VENT MODE SPONTANEOUS
[2021-03-20 22:40] LABS: VENT RATE 16
[2021-03-21] MEDS: LABETALOL HCL 100 MG TABLET (FP) PO SCH ×3 (06:02→21:47)
[2021-03-21] MEDS: HEPARIN NA (PORCINE) 5,000 UNITS/ML 1ML VIAL SQ SCH ×3 (06:02→21:47)
[2021-03-21] MEDS ORDERED: LEVOTHYROXINE NA 125 MCG TABLET (FP) PO SCH (07:00)
[2021-03-21 08:08] LABS: BASO % 0.3 % (0-2.0); HEMATOCRIT 29.4 % (32.4-45.2); HEMOGLOBIN 9.6 GM/dL (10.7-15.3); MCH 30.9 pg (25.7-33.7); MCHC 32.7 g/dl (32.0-36.0); MEAN CELL VOLUME 94.8 fl (80-96); MEAN PLT VOLUME 8.6 fl (7.5-11.1); MONO % 5.5 % (3.8-10.2); NEUT % 63.2 % (42.8-82.8); PLATELET COUNT 218 10^3/uL (134-434); RDW 14.5 % (11.6-15.6); WHITE BLOOD COUNT 6.8 K/mm3 (4.0-10.0)
[2021-03-21 08:24] LABS: ALBUMIN 2.9 g/dl (3.4-5.0); BLOOD UREA NITROGEN 17.6 mg/dL (7-18); CALCIUM 7.7 mg/dL (8.5-10.1)
[2021-03-21 08:29] LABS: CREATININE 4.6 mg/dL (0.55-1.3)
[2021-03-21 08:30] LABS: BILIRUBIN,TOTAL 0.3 mg/dL (0.2-1); TOT PROT 6.5 g/dl (6.4-8.2)
[2021-03-21] MEDS: PANTOPRAZOLE 20 MG TABLET PO SCH (09:49)
[2021-03-21] MEDS: levETIRAcetam 500 MG TABLET (FP) PO SCH ×2 (09:49→21:47)
[2021-03-21] MEDS: PARoxetine HCL 20 MG TABLET PO SCH (09:49)
[2021-03-21] MEDS: chlorproMAZINE HCL 100 MG TABLET PO SCH ×2 (09:50→21:48)
[2021-03-21] MEDS ORDERED: LEVOTHYROXINE NA 50 MCG TABLET (FP) PO SCH (10:00)
[2021-03-21] MEDS ORDERED: PNEUMOC 13-VAL CONJ-DIP CRM/PF 0.5 ML DISP.SYRIN IM ONE (10:00)
[2021-03-21] MEDS ORDERED: PATIENT'S OWN MEDICATION (NON-FORMULARY) (Omeprazole [Omeprazole] 20 MG Tablet.Dr) PO SCH (10:00)
[2021-03-21] MEDS ORDERED: LEVOTHYROXINE NA 200 MCG TABLET PO SCH (10:00)
[2021-03-21] MEDS ORDERED: LEVOTHYROXINE SODIUM 100 MCG VIAL IVPUSH SCH (11:00)
[2021-03-21] MEDS ORDERED: SODIUM CHLORIDE 250 ML IV PRN (13:21)
[2021-03-21] MEDS ORDERED: PT OWN MED DRAWER 7, Y5N ONE (20:28)
[2021-03-21] MEDS: ATORVASTATIN CA 10 MG TABLET (FP) PO SCH (21:47)
[2021-03-21] MEDS: hydrALAZINE HCL 50 MG TABLET (FP) PO SCH (21:47)
[2021-03-21] MEDS: LEVOTHYROXINE SODIUM 100 MCG VIAL IVPUSH SCH (21:48)
[2021-03-22] MEDS: HEPARIN NA (PORCINE) 5,000 UNITS/ML 1ML VIAL SQ SCH ×3 (06:28→21:09)
[2021-03-22] MEDS: LABETALOL HCL 100 MG TABLET (FP) PO SCH ×3 (06:28→21:09)
[2021-03-22 08:39] LABS: HEMATOCRIT 29.5 % (32.4-45.2); HEMOGLOBIN 9.5 GM/dL (10.7-15.3); MCH 30.7 pg (25.7-33.7); MCHC 32.2 g/dl (32.0-36.0); MEAN CELL VOLUME 95.2 fl (80-96); MEAN PLT VOLUME 8.5 fl (7.5-11.1); PLATELET COUNT 215 10^3/uL (134-434); RDW 14.5 % (11.6-15.6); WHITE BLOOD COUNT 5.7 K/mm3 (4.0-10.0)
[2021-03-22 08:44] LABS: BLOOD UREA NITROGEN 25.5 mg/dL (7-18); CALCIUM 8.5 mg/dL (8.5-10.1)
[2021-03-22 08:46] LABS: PHOSPHOROUS 3.9 mg/dL (2.5-4.9)
[2021-03-22] MEDS: chlorproMAZINE HCL 100 MG TABLET PO SCH (11:06)
[2021-03-22] MEDS: PARoxetine HCL 20 MG TABLET PO SCH ×2 (11:06→11:45)
[2021-03-22] MEDS: LEVOTHYROXINE SODIUM 100 MCG VIAL IVPUSH SCH ×2 (11:06→11:45)
[2021-03-22] MEDS: levETIRAcetam 500 MG TABLET (FP) PO SCH ×3 (11:06→21:09)
[2021-03-22] MEDS: PANTOPRAZOLE 20 MG TABLET PO SCH (11:06)
[2021-03-22] MEDS: ATORVASTATIN CA 10 MG TABLET (FP) PO SCH (21:09)
[2021-03-22] MEDS: hydrALAZINE HCL 50 MG TABLET (FP) PO SCH (21:09)
[2021-03-23] MEDS: LIOTHYRONINE SODIUM 5 MCG TABLET PO SCH (06:16)
[2021-03-23] MEDS: HEPARIN NA (PORCINE) 5,000 UNITS/ML 1ML VIAL SQ SCH ×3 (06:16→21:17)
[2021-03-23] MEDS: LABETALOL HCL 100 MG TABLET (FP) PO SCH ×3 (06:16→21:17)
[2021-03-23] MEDS: levETIRAcetam 500 MG TABLET (FP) PO SCH ×2 (09:48→21:17)
[2021-03-23] MEDS: PANTOPRAZOLE 20 MG TABLET PO SCH (09:48)
[2021-03-23] MEDS: PARoxetine HCL 10 MG TABLET PO SCH (09:48)
[2021-03-23] MEDS: LEVOTHYROXINE SODIUM 100 MCG VIAL IVPUSH SCH ×3 (09:50→10:35)
[2021-03-23] MEDS ORDERED: chlorproMAZINE HCL 100 MG TABLET PO SCH (10:00)
[2021-03-23] MEDS ORDERED: PT OWN MED DRAWER 7, Y5N ONE (10:57)
[2021-03-23] MEDS: hydrALAZINE HCL 50 MG TABLET (FP) PO SCH (21:17)
[2021-03-23] MEDS: ATORVASTATIN CA 10 MG TABLET (FP) PO SCH (21:17)
[2021-03-24] MEDS ORDERED: PT OWN MED DRAWER 7, Y5N ONE ×3 (04:55→10:38)
[2021-03-24] MEDS: LIOTHYRONINE SODIUM 5 MCG TABLET PO SCH (06:01)
[2021-03-24] MEDS: HEPARIN NA (PORCINE) 5,000 UNITS/ML 1ML VIAL SQ SCH ×3 (06:01→23:32)
[2021-03-24] MEDS: LABETALOL HCL 100 MG TABLET (FP) PO SCH ×3 (06:01→23:31)
[2021-03-24] MEDS ORDERED: SODIUM CHLORIDE 250 ML IV PRN (07:00)
[2021-03-24] MEDS ORDERED: EPOETIN ALFA-EPBX 10,000 UNIT/ML VIAL SQ ONE (07:00)
[2021-03-24 08:04] LABS: HEMATOCRIT 26.8 % (32.4-45.2); HEMOGLOBIN 8.9 GM/dL (10.7-15.3); MCH 31.2 pg (25.7-33.7); MCHC 33.2 g/dl (32.0-36.0); MEAN PLT VOLUME 8.1 fl (7.5-11.1); PLATELET COUNT 196 10^3/uL (134-434); RBC 2.85 M/mm3 (3.60-5.2); RDW 14.9 % (11.6-15.6)
[2021-03-24 08:16] LABS: BLOOD UREA NITROGEN 21.4 mg/dL (7-18); CALCIUM 8.3 mg/dL (8.5-10.1)
[2021-03-24 08:20] LABS: CREATININE 6.2 mg/dL (0.55-1.3)
[2021-03-24] MEDS: levETIRAcetam 500 MG TABLET (FP) PO SCH ×2 (11:33→23:32)
[2021-03-24] MEDS: PARoxetine HCL 10 MG TABLET PO SCH (11:33)
[2021-03-24] MEDS: PANTOPRAZOLE 20 MG TABLET PO SCH (11:33)
[2021-03-24] MEDS: VITAMIN B COMP W-C 1 EA TABLET (NEPHRO-VITE) PO SCH (11:34)
[2021-03-24] MEDS: LEVOTHYROXINE SODIUM 100 MCG VIAL IVPUSH SCH (11:34)
[2021-03-24] MEDS: chlorproMAZINE HCL 25 MG TABLET PO SCH (11:40)
[2021-03-24] MEDS: hydrALAZINE HCL 50 MG TABLET (FP) PO SCH (23:31)
[2021-03-24] MEDS: ATORVASTATIN CA 10 MG TABLET (FP) PO SCH (23:31)
[2021-03-25] MEDS ORDERED: PT OWN MED DRAWER 7, Y5N ONE ×2 (06:02→10:10)
[2021-03-25] MEDS: HEPARIN NA (PORCINE) 5,000 UNITS/ML 1ML VIAL SQ SCH ×3 (06:17→22:05)
[2021-03-25] MEDS: LIOTHYRONINE SODIUM 5 MCG TABLET PO SCH (06:18)
[2021-03-25] MEDS: LABETALOL HCL 100 MG TABLET (FP) PO SCH (06:18)
[2021-03-25] MEDS: VITAMIN B COMP W-C 1 EA TABLET (NEPHRO-VITE) PO SCH (10:08)
[2021-03-25] MEDS: PARoxetine HCL 10 MG TABLET PO SCH (10:08)
[2021-03-25] MEDS: PANTOPRAZOLE 20 MG TABLET PO SCH (10:08)
[2021-03-25] MEDS: levETIRAcetam 500 MG TABLET (FP) PO SCH ×2 (10:08→22:03)
[2021-03-25] MEDS: chlorproMAZINE HCL 25 MG TABLET PO SCH (10:11)
[2021-03-25] MEDS ORDERED: SODIUM CHLORIDE 250 ML IV PRN (15:15)
[2021-03-25] MEDS: hydrALAZINE HCL 50 MG TABLET (FP) PO SCH (22:03)
[2021-03-25] MEDS: ATORVASTATIN CA 10 MG TABLET (FP) PO SCH (22:05)
[2021-03-26] MEDS: HEPARIN NA (PORCINE) 5,000 UNITS/ML 1ML VIAL SQ SCH ×3 (06:29→21:48)
[2021-03-26] MEDS: LIOTHYRONINE SODIUM 5 MCG TABLET PO SCH ×2 (06:30→11:55)
[2021-03-26] MEDS: LEVOTHYROXINE NA 150 MCG TABLET PO SCH ×2 (06:30→11:51)
[2021-03-26] MEDS ORDERED: EPOETIN ALFA-EPBX 10,000 UNIT/ML VIAL SQ ONE (07:30)
[2021-03-26 08:05] LABS: HEMATOCRIT 30.1 % (32.4-45.2); HEMOGLOBIN 9.9 GM/dL (10.7-15.3); MCHC 32.7 g/dl (32.0-36.0); MEAN CELL VOLUME 94.6 fl (80-96); MEAN PLT VOLUME 8.8 fl (7.5-11.1); PLATELET COUNT 195 10^3/uL (134-434); RBC 3.19 M/mm3 (3.60-5.2); RDW 15.4 % (11.6-15.6); WHITE BLOOD COUNT 5.8 K/mm3 (4.0-10.0)
[2021-03-26 08:21] LABS: CALCIUM 8.6 mg/dL (8.5-10.1)
[2021-03-26 08:22] LABS: BLOOD UREA NITROGEN 22.8 mg/dL (7-18)
[2021-03-26 08:25] LABS: CREATININE 6.2 mg/dL (0.55-1.3)
[2021-03-26] MEDS ORDERED: PT OWN MED DRAWER 7, Y5N ONE ×2 (09:09→11:29)
[2021-03-26] MEDS: VITAMIN B COMP W-C 1 EA TABLET (NEPHRO-VITE) PO SCH (11:43)
[2021-03-26] MEDS: PANTOPRAZOLE 20 MG TABLET PO SCH (11:43)
[2021-03-26] MEDS: levETIRAcetam 500 MG TABLET (FP) PO SCH ×2 (11:43→21:48)
[2021-03-26] MEDS: PARoxetine HCL 10 MG TABLET PO SCH (11:43)
[2021-03-26] MEDS: chlorproMAZINE HCL 25 MG TABLET PO SCH (11:44)
[2021-03-26] MEDS: hydrALAZINE HCL 50 MG TABLET (FP) PO SCH (21:48)
[2021-03-26] MEDS: ATORVASTATIN CA 10 MG TABLET (FP) PO SCH (21:49)
[2021-03-27] MEDS: HEPARIN NA (PORCINE) 5,000 UNITS/ML 1ML VIAL SQ SCH ×3 (06:18→21:19)
[2021-03-27] MEDS: LEVOTHYROXINE NA 150 MCG TABLET PO SCH (06:19)
[2021-03-27] MEDS: LIOTHYRONINE SODIUM 5 MCG TABLET PO SCH (06:22)
[2021-03-27] MEDS: PANTOPRAZOLE 20 MG TABLET PO SCH (09:22)
[2021-03-27] MEDS: VITAMIN B COMP W-C 1 EA TABLET (NEPHRO-VITE) PO SCH (09:22)
[2021-03-27] MEDS: PARoxetine HCL 10 MG TABLET PO SCH (09:22)
[2021-03-27] MEDS: levETIRAcetam 500 MG TABLET (FP) PO SCH ×2 (09:22→21:21)
[2021-03-27] MEDS: chlorproMAZINE HCL 25 MG TABLET PO SCH (09:23)
[2021-03-27] MEDS: ACETAMINOPHEN 325 MG TABLET (FP) PO PRN ×2 (11:56→21:20)
[2021-03-27] MEDS: hydrALAZINE HCL 50 MG TABLET (FP) PO SCH (21:20)
[2021-03-27] MEDS: ATORVASTATIN CA 10 MG TABLET (FP) PO SCH (21:21)
[2021-03-28] MEDS ORDERED: PT OWN MED DRAWER 7, Y5N ONE ×3 (05:33→09:23)
[2021-03-28] MEDS: HEPARIN NA (PORCINE) 5,000 UNITS/ML 1ML VIAL SQ SCH ×3 (06:31→22:03)
[2021-03-28] MEDS: LEVOTHYROXINE NA 150 MCG TABLET PO SCH (06:32)
[2021-03-28] MEDS: LIOTHYRONINE SODIUM 5 MCG TABLET PO SCH (06:32)
[2021-03-28] MEDS: PANTOPRAZOLE 20 MG TABLET PO SCH (09:25)
[2021-03-28] MEDS: levETIRAcetam 500 MG TABLET (FP) PO SCH ×2 (09:25→22:03)
[2021-03-28] MEDS: VITAMIN B COMP W-C 1 EA TABLET (NEPHRO-VITE) PO SCH (09:25)
[2021-03-28] MEDS: PARoxetine HCL 10 MG TABLET PO SCH (09:25)
[2021-03-28] MEDS: chlorproMAZINE HCL 25 MG TABLET PO SCH (09:26)
[2021-03-28] MEDS ORDERED: SODIUM CHLORIDE 250 ML IV PRN (13:50)
[2021-03-28] MEDS: hydrALAZINE HCL 50 MG TABLET (FP) PO SCH (22:03)
[2021-03-28] MEDS: ATORVASTATIN CA 10 MG TABLET (FP) PO SCH (22:03)
[2021-03-29] MEDS: ACETAMINOPHEN 325 MG TABLET (FP) PO PRN (05:58)
[2021-03-29] MEDS: HEPARIN NA (PORCINE) 5,000 UNITS/ML 1ML VIAL SQ SCH (06:30)
[2021-03-29] MEDS: LIOTHYRONINE SODIUM 5 MCG TABLET PO SCH (06:30)
[2021-03-29] MEDS: LEVOTHYROXINE NA 150 MCG TABLET PO SCH (06:30)
[2021-03-29] MEDS ORDERED: PT OWN MED DRAWER 7, Y5N ONE (11:35)
[2021-03-29] MEDS: VITAMIN B COMP W-C 1 EA TABLET (NEPHRO-VITE) PO SCH (11:39)
[2021-03-29] MEDS: levETIRAcetam 500 MG TABLET (FP) PO SCH (11:39)
[2021-03-29] MEDS: PARoxetine HCL 10 MG TABLET PO SCH (11:39)
[2021-03-29] MEDS: PANTOPRAZOLE 20 MG TABLET PO SCH (11:39)
[2021-03-29] MEDS: chlorproMAZINE HCL 25 MG TABLET PO SCH (11:40)
[2021-03-29 11:57] VITALS: BP 119/52; PULSE 70
[2021-03-29 12:46] VITALS: TEMP 97.9
== END 2021-03-29 12:50 | disposition left against medical advice (07) | DRG 133 ==
LOC: JER 01:14 → JERBED 11:48 → J4W 15:19
PROVIDERS: ADMIT Family Medicine; ATTEND Family Medicine
PROC: 5A1D70Z Performance of Urinary Filtration, Intermittent, Less than 6 Hours Per Day (ICD-10-PCS; principal; 2021-03-20)
DX: J96.21 Acute and chronic respiratory failure with hypoxia (principal); E03.9 Hypothyroidism, unspecified; E11.22 Type 2 diabetes mellitus with diabetic chronic kidney disease; D63.1 Anemia in chronic kidney disease; F41.8 Other specified anxiety disorders; F31.9 Bipolar disorder, unspecified; J96.22 Acute and chronic respiratory failure with hypercapnia; J44.1 Chronic obstructive pulmonary disease with (acute) exacerbation; E66.01 Morbid (severe) obesity due to excess calories; Z68.41 Body mass index [BMI] 40.0-44.9, adult; B19.10 Unspecified viral hepatitis B without hepatic coma; G47.33 Obstructive sleep apnea (adult) (pediatric); E87.2 Acidosis; I12.0 Hypertensive chronic kidney disease with stage 5 chronic kidney disease or end stage renal disease; N18.6 End stage renal disease; I31.3 Pericardial effusion (noninflammatory); G93.41 Metabolic encephalopathy; Z99.2 Dependence on renal dialysis; E87.70 Fluid overload, unspecified; F17.210 Nicotine dependence, cigarettes, uncomplicated
CPT/HCPCS: 36415; 36600; 70450-TC; 71045-TC-FY; 71250-TC; 80048; 80053; 82550; 82803; 82962; 83605; 83735; 83880; 84100; 84439; 84443; 84479; 84480; 84484; 85025; 85027; 85610; 85730; 87040; 93005; 93010; 94660; 97116-GP; 97162-GP; 99285-25; C9803; J1644; Q5106; U0003; U0005

== ENCOUNTER 2021-05-25 22:11 | Inpatient (IN) | payer OTHER ==
[2021-05-25 23:53] LABS: BASO % 0.4 % (0-2.0); HEMOGLOBIN 7.6 GM/dL (10.7-15.3); LYMPH % 19.3 % (8-40); MCH 31.7 pg (25.7-33.7); MCHC 34.6 g/dl (32.0-36.0); MEAN CELL VOLUME 91.6 fl (80-96); MEAN PLT VOLUME 7.2 fl (7.5-11.1); MONO % 6.9 % (3.8-10.2); NEUT % 73.4 % (42.8-82.8); PLATELET COUNT 214 10^3/uL (134-434); RDW 15.8 % (11.6-15.6); WHITE BLOOD COUNT 4.7 K/mm3 (4.0-10.0)
[2021-05-26 00:19] LABS: CALCIUM 8.2 mg/dL (8.5-10.1)
[2021-05-26 00:20] LABS: ALBUMIN 3.1 g/dl (3.4-5.0); BLOOD UREA NITROGEN 55.1 mg/dL (7-18)
[2021-05-26 00:23] LABS: CREATININE 7.4 mg/dL (0.55-1.3); PHOSPHOROUS 7.6 mg/dL (2.5-4.9)
[2021-05-26 00:25] LABS: BILIRUBIN,TOTAL 0.6 mg/dL (0.2-1); TOT PROT 7.2 g/dl (6.4-8.2)
[2021-05-26 01:35] LABS: ARTERIAL BLD GAS O2 SATURATION 92.3 % (95-98); ARTERIAL BLOOD GAS BASE EXCESS -4.3 mmol/L (-2-2); ARTERIAL BLOOD GAS pH 7.351 (7.350-7.450)
[2021-05-26 01:37] LABS: ALLENS TEST POSITIVE
[2021-05-26] MEDS ORDERED: SODIUM CHLORIDE 1,000 ML IV SCH (03:45)
[2021-05-26] MEDS ORDERED: ALBUTEROL SO4 2.5/IPRATROPIUM 0.5 INH SOL 3 ML VIAL.NEB. NEB PRN (06:59)
[2021-05-26] MEDS ORDERED: LEVOTHYROXINE SODIUM 100 MCG VIAL IVPUSH SCH (08:00)
[2021-05-26] MEDS ORDERED: PT OWN MED DRAWER 7, Y5N ONE ×3 (08:08→13:47)
[2021-05-26 08:18] LABS: CHLORIDE 87 mmol/L (98-107); SODIUM 123 mmol/L (136-145)
[2021-05-26 08:21] LABS: BASO % 0.2 % (0-2.0); HEMATOCRIT 22.3 % (32.4-45.2); HEMOGLOBIN 7.8 GM/dL (10.7-15.3); LYMPH % 17.3 % (8-40); MCH 32.3 pg (25.7-33.7); MCHC 34.9 g/dl (32.0-36.0); MEAN CELL VOLUME 92.7 fl (80-96); MEAN PLT VOLUME 7.6 fl (7.5-11.1); MONO % 6.7 % (3.8-10.2); NEUT % 75.8 % (42.8-82.8); PLATELET COUNT 214 10^3/uL (134-434); RBC 2.41 M/mm3 (3.60-5.2); RDW 15.7 % (11.6-15.6); WHITE BLOOD COUNT 5.2 K/mm3 (4.0-10.0)
[2021-05-26 08:24] LABS: ANION GAP 14 MMOL/L (8-16); CALCIUM 8.1 mg/dL (8.5-10.1); CO2 22 mmol/L (21-32); GLUCOSE,RANDOM 108 mg/dL (74-106)
[2021-05-26 08:28] LABS: SGOT/AST 36 U/L (15-37)
[2021-05-26 08:29] LABS: BILIRUBIN,TOTAL 0.7 mg/dL (0.2-1); TOT PROT 7.2 g/dl (6.4-8.2)
[2021-05-26 08:30] LABS: ALK PHOS 190 U/L (45-117); CREATININE 7.7 mg/dL (0.55-1.3); SGPT/ALT 49 U/L (13-61)
[2021-05-26] MEDS ORDERED: HEPARIN NA (PORCINE) 5,000 UNITS/ML 1ML VIAL IVPUSH ONE (10:20)
[2021-05-26] MEDS ORDERED: SODIUM CHLORIDE 250 ML IV PRN (10:25)
[2021-05-26] MEDS: levETIRAcetam 500 MG/5 ML INJECTION VIAL IVPB SCH ×2 (11:32→21:01)
[2021-05-27 05:43] LABS: ARTERIAL BLD GAS O2 SATURATION 98.6 % (95-98); ARTERIAL BLOOD GAS BASE EXCESS 0.2 mmol/L (-2-2); ARTERIAL BLOOD GAS PO2 143.7 mmHg (80-100); ARTERIAL BLOOD GAS pH 7.327 (7.350-7.450)
[2021-05-27 05:47] LABS: ALLENS TEST POSITIVE
[2021-05-27] MEDS: LEVOTHYROXINE SODIUM 100 MCG VIAL IVPUSH SCH (06:01)
[2021-05-27] MEDS: levETIRAcetam 500 MG/5 ML INJECTION VIAL IVPB SCH ×2 (10:23→22:52)
[2021-05-27 10:50] LABS: HEMATOCRIT 23.2 % (32.4-45.2); HEMOGLOBIN 8.1 GM/dL (10.7-15.3); MCH 32.6 pg (25.7-33.7); MEAN CELL VOLUME 93.1 fl (80-96); MEAN PLT VOLUME 7.7 fl (7.5-11.1); PLATELET COUNT 237 10^3/uL (134-434); RBC 2.49 M/mm3 (3.60-5.2); RDW 15.7 % (11.6-15.6); WHITE BLOOD COUNT 5.6 K/mm3 (4.0-10.0)
[2021-05-27 11:11] LABS: BLOOD UREA NITROGEN 40.5 mg/dL (7-18); CALCIUM 8.5 mg/dL (8.5-10.1)
[2021-05-27 11:13] LABS: ALBUMIN 2.9 g/dl (3.4-5.0)
[2021-05-27 11:15] LABS: CREATININE 5.7 mg/dL (0.55-1.3); PHOSPHOROUS 6.7 mg/dL (2.5-4.9)
[2021-05-27 11:17] LABS: BILIRUBIN,TOTAL 0.5 mg/dL (0.2-1); TOT PROT 7.2 g/dl (6.4-8.2)
[2021-05-27 11:39] LABS: COCAINE, UR NEGATIVE (NEGATIVE); METHADONE, UR NEGATIVE (NEGATIVE); OPIATES, URI NEGATIVE (NEGATIVE)
[2021-05-27 11:40] LABS: PHENCYCLIDINE,URINE NEGATIVE (NEGATIVE); URINE AMPHETAMINES NEGATIVE (NEGATIVE); URINE BARBITURATES NEGATIVE (NEGATIVE); URINE BENZODIAZEPINES NEGATIVE (NEGATIVE)
[2021-05-27] MEDS ORDERED: VANCOMYCIN 1 GRAM (PRE-DOCKED) 1,000 MG/250 ML BAG IVPB ONE (13:18)
[2021-05-27] MEDS ORDERED: AZTREONAM 0.5 GM in DEXTROSE 5%-WATER - 50 ML IVPB SCH (14:00)
[2021-05-27 14:11] LABS: HEPATITIS B SURFACE AG CONFIRM CONFIRMED (NONREACTIVE)
[2021-05-27] MEDS ORDERED: PT OWN MED DRAWER 7, Y5N ONE (18:34)
[2021-05-27] MEDS ORDERED: hydrALAZINE HCL 50 MG TABLET (FP) PO ONE (19:15)
[2021-05-27] MEDS ORDERED: ACETAMINOPHEN 325 MG TABLET (FP) PO PRN ×2 (19:16→19:40)
[2021-05-27] MEDS ORDERED: hydrALAZINE HCL 20 MG/ML VIAL IVPUSH ONE (20:26)
[2021-05-27] MEDS: LIDOCAINE PATCH REMOVAL MC SCH (21:43)
[2021-05-27] MEDS: LIDOCAINE 5% TOPICAL PATCH TP SCH (21:44)
[2021-05-28] MEDS ORDERED: PT OWN MED DRAWER 7, Y5N ONE ×2 (06:43→10:49)
[2021-05-28] MEDS: LEVOTHYROXINE SODIUM 100 MCG VIAL IVPUSH SCH (06:43)
[2021-05-28] MEDS ORDERED: BUPROPION HCL 450 MG PO SCH (10:00)
[2021-05-28] MEDS ORDERED: hydrALAZINE HCL 20 MG/ML VIAL IVPUSH PRN (10:37)
[2021-05-28] MEDS ORDERED: EPOETIN ALFA-EPBX 4,000 UNIT/ML VIAL SQ ONE (11:03)
[2021-05-28] MEDS ORDERED: SODIUM CHLORIDE 250 ML IV PRN (12:00)
[2021-05-28 12:36] LABS: HEMATOCRIT 23.6 % (32.4-45.2); HEMOGLOBIN 8.1 GM/dL (10.7-15.3); MCH 31.9 pg (25.7-33.7); MCHC 34.5 g/dl (32.0-36.0); MEAN CELL VOLUME 92.6 fl (80-96); MEAN PLT VOLUME 7.4 fl (7.5-11.1); PLATELET COUNT 252 10^3/uL (134-434); RBC 2.54 M/mm3 (3.60-5.2); RDW 15.4 % (11.6-15.6); WHITE BLOOD COUNT 6.4 K/mm3 (4.0-10.0)
[2021-05-28] MEDS ORDERED: EPOETIN ALFA-EPBX 3,000 UNIT, EPOETIN ALFA-EPBX 2,000 UNIT IVPUSH ONE (13:00)
[2021-05-28] MEDS ORDERED: hydrALAZINE HCL 20 MG/ML VIAL IVPUSH ONE (14:00)
[2021-05-28] MEDS ORDERED: hydrALAZINE HCL 20 MG/ML VIAL IVPB ONE (14:00)
[2021-05-28] MEDS: AZTREONAM 0.5 GM in DEXTROSE 5%-WATER - 50 ML IVPB SCH ×2 (15:14→23:55)
[2021-05-28] MEDS: levETIRAcetam 500 MG/5 ML INJECTION VIAL IVPB SCH ×2 (15:14→23:24)
[2021-05-28] MEDS: LIDOCAINE 5% TOPICAL PATCH TP SCH (15:14)
[2021-05-28] MEDS: PARoxetine HCL 10 MG TABLET PO SCH (15:24)
[2021-05-28] MEDS: buPROPion HCL 75 MG TABLET PO SCH (15:24)
[2021-05-28] MEDS: hydrALAZINE HCL 50 MG TABLET (FP) PO SCH (23:12)
[2021-05-28] MEDS: LIDOCAINE PATCH REMOVAL MC SCH (23:21)
[2021-05-29] MEDS ORDERED: PT OWN MED DRAWER 7, Y5N ONE ×3 (06:45→20:26)
[2021-05-29] MEDS: LEVOTHYROXINE SODIUM 100 MCG VIAL IVPUSH SCH (06:59)
[2021-05-29] MEDS: amLODIPine BESYLATE 2.5 MG TABLET (FP) PO SCH (09:48)
[2021-05-29] MEDS: AZTREONAM 0.5 GM in DEXTROSE 5%-WATER - 50 ML IVPB SCH ×3 (09:48→22:37)
[2021-05-29] MEDS: buPROPion HCL 75 MG TABLET PO SCH (09:48)
[2021-05-29] MEDS: levETIRAcetam 500 MG/5 ML INJECTION VIAL IVPB SCH ×2 (09:48→21:55)
[2021-05-29] MEDS: hydrALAZINE HCL 50 MG TABLET (FP) PO SCH ×2 (09:48→21:55)
[2021-05-29] MEDS: PARoxetine HCL 10 MG TABLET PO SCH (09:48)
[2021-05-29] MEDS: LIDOCAINE 5% TOPICAL PATCH TP SCH (10:09)
[2021-05-29 12:43] LABS: ALBUMIN 2.4 g/dl (3.4-5.0); CALCIUM 7.9 mg/dL (8.5-10.1)
[2021-05-29 12:44] LABS: TOT PROT 6.3 g/dl (6.4-8.2)
[2021-05-29 12:45] LABS: BLOOD UREA NITROGEN 25.2 mg/dL (7-18)
[2021-05-29 12:47] LABS: CREATININE 4.5 mg/dL (0.55-1.3)
[2021-05-29 12:48] LABS: BILIRUBIN,TOTAL 0.5 mg/dL (0.2-1)
[2021-05-29] MEDS: LIDOCAINE PATCH REMOVAL MC SCH (21:56)
[2021-05-29 23:03] VITALS: BMI 48.3
[2021-05-30] MEDS ORDERED: PT OWN MED DRAWER 7, Y5N ONE ×4 (05:44→20:31)
[2021-05-30] MEDS: LEVOTHYROXINE SODIUM 100 MCG VIAL IVPUSH SCH (06:13)
[2021-05-30] MEDS: amLODIPine BESYLATE 2.5 MG TABLET (FP) PO SCH (10:48)
[2021-05-30] MEDS: VITAMIN B COMP W-C 1 EA TABLET (NEPHRO-VITE) PO SCH (10:48)
[2021-05-30] MEDS: levETIRAcetam 500 MG/5 ML INJECTION VIAL IVPB SCH ×2 (10:48→22:28)
[2021-05-30] MEDS: AZTREONAM 0.5 GM in DEXTROSE 5%-WATER - 50 ML IVPB SCH ×2 (10:48→21:54)
[2021-05-30] MEDS: hydrALAZINE HCL 50 MG TABLET (FP) PO SCH ×2 (10:48→21:57)
[2021-05-30] MEDS: LIDOCAINE 5% TOPICAL PATCH TP SCH (10:48)
[2021-05-30] MEDS: PARoxetine HCL 10 MG TABLET PO SCH (10:48)
[2021-05-30] MEDS: buPROPion HCL 75 MG TABLET PO SCH (10:49)
[2021-05-30] MEDS ORDERED: SODIUM CHLORIDE 250 ML IV PRN (14:11)
[2021-05-30] MEDS: LIDOCAINE PATCH REMOVAL MC SCH (21:57)
[2021-05-31] MEDS: LEVOTHYROXINE SODIUM 100 MCG VIAL IVPUSH SCH (06:10)
[2021-05-31] MEDS ORDERED: PT OWN MED DRAWER 7, Y5N ONE (10:12)
[2021-05-31] MEDS: levETIRAcetam 500 MG/5 ML INJECTION VIAL IVPB SCH ×2 (10:17→21:26)
[2021-05-31] MEDS: amLODIPine BESYLATE 5 MG TABLET (FP) PO SCH (10:48)
[2021-05-31] MEDS: hydrALAZINE HCL 50 MG TABLET (FP) PO SCH ×2 (10:48→21:26)
[2021-05-31] MEDS: VITAMIN B COMP W-C 1 EA TABLET (NEPHRO-VITE) PO SCH (10:48)
[2021-05-31] MEDS: buPROPion HCL 75 MG TABLET PO SCH (10:49)
[2021-05-31] MEDS: LIDOCAINE 5% TOPICAL PATCH TP SCH (10:49)
[2021-05-31] MEDS: PARoxetine HCL 10 MG TABLET PO SCH (10:59)
[2021-05-31] MEDS: AZTREONAM 0.5 GM in DEXTROSE 5%-WATER - 50 ML IVPB SCH (12:12)
[2021-05-31] MEDS ORDERED: EPOETIN ALFA-EPBX 10,000 UNIT/ML VIAL SQ ONE (14:11)
[2021-05-31 17:46] LABS: HEMATOCRIT 23.5 % (32.4-45.2); MCH 31.8 pg (25.7-33.7); MCHC 33.9 g/dl (32.0-36.0); MEAN CELL VOLUME 93.9 fl (80-96); MEAN PLT VOLUME 6.9 fl (7.5-11.1); PLATELET COUNT 267 10^3/uL (134-434); RDW 15.3 % (11.6-15.6); WHITE BLOOD COUNT 6.7 K/mm3 (4.0-10.0)
[2021-05-31 18:10] LABS: BLOOD UREA NITROGEN 36.6 mg/dL (7-18); CALCIUM 8.3 mg/dL (8.5-10.1)
[2021-05-31 18:14] LABS: CREATININE 6.4 mg/dL (0.55-1.3)
[2021-05-31] MEDS: LIDOCAINE PATCH REMOVAL MC SCH (21:26)
[2021-06-01] MEDS ORDERED: PT OWN MED DRAWER 7, Y5N ONE ×2 (06:22→10:59)
[2021-06-01] MEDS: LEVOTHYROXINE SODIUM 100 MCG VIAL IVPUSH SCH (06:41)
[2021-06-01] MEDS: LIOTHYRONINE SODIUM 25 MCG TABLET PO SCH (06:49)
[2021-06-01] MEDS ORDERED: LIOTHYRONINE SODIUM 25 MCG TABLET PO SCH (10:00)
[2021-06-01] MEDS: LIDOCAINE 5% TOPICAL PATCH TP SCH (10:59)
[2021-06-01] MEDS: levETIRAcetam 500 MG/5 ML INJECTION VIAL IVPB SCH ×2 (11:03→21:00)
[2021-06-01] MEDS: PARoxetine HCL 10 MG TABLET PO SCH (11:03)
[2021-06-01] MEDS: hydrALAZINE HCL 50 MG TABLET (FP) PO SCH ×2 (11:03→21:00)
[2021-06-01] MEDS: VITAMIN B COMP W-C 1 EA TABLET (NEPHRO-VITE) PO SCH (11:03)
[2021-06-01] MEDS: amLODIPine BESYLATE 5 MG TABLET (FP) PO SCH (11:03)
[2021-06-01] MEDS: buPROPion HCL 75 MG TABLET PO SCH (11:07)
[2021-06-01] MEDS: LIDOCAINE PATCH REMOVAL MC SCH (21:00)
[2021-06-02] MEDS: LEVOTHYROXINE SODIUM 100 MCG VIAL IVPUSH SCH (05:59)
[2021-06-02] MEDS: LIOTHYRONINE SODIUM 25 MCG TABLET PO SCH (06:02)
[2021-06-02] MEDS: LEVOTHYROXINE NA 200 MCG TABLET PO SCH (07:18)
[2021-06-02] MEDS ORDERED: SODIUM CHLORIDE 250 ML IV PRN (07:28)
[2021-06-02] MEDS ORDERED: HEPARIN NA (PORCINE) 5,000 UNITS/ML 1ML VIAL IVPUSH ONE (07:30)
[2021-06-02] MEDS ORDERED: EPOETIN ALFA-EPBX 10,000 UNIT/ML VIAL SQ ONE (09:00)
[2021-06-02 09:19] LABS: HEMATOCRIT 25.9 % (32.4-45.2); HEMOGLOBIN 8.7 GM/dL (10.7-15.3); MCH 31.5 pg (25.7-33.7); MCHC 33.4 g/dl (32.0-36.0); MEAN CELL VOLUME 94.4 fl (80-96); MEAN PLT VOLUME 7.2 fl (7.5-11.1); PLATELET COUNT 309 10^3/uL (134-434); RBC 2.75 M/mm3 (3.60-5.2); RDW 15.6 % (11.6-15.6); WHITE BLOOD COUNT 8.1 K/mm3 (4.0-10.0)
[2021-06-02 09:56] LABS: CALCIUM 8.6 mg/dL (8.5-10.1)
[2021-06-02 09:57] LABS: ALBUMIN 2.5 g/dl (3.4-5.0); BLOOD UREA NITROGEN 23.2 mg/dL (7-18)
[2021-06-02 10:01] LABS: BILIRUBIN,TOTAL 0.4 mg/dL (0.2-1); TOT PROT 6.8 g/dl (6.4-8.2)
[2021-06-02] MEDS: PARoxetine HCL 10 MG TABLET PO SCH (12:00)
[2021-06-02] MEDS: hydrALAZINE HCL 50 MG TABLET (FP) PO SCH ×2 (12:00→21:11)
[2021-06-02] MEDS: amLODIPine BESYLATE 5 MG TABLET (FP) PO SCH (12:00)
[2021-06-02] MEDS: levETIRAcetam 500 MG/5 ML INJECTION VIAL IVPB SCH ×2 (12:01→21:10)
[2021-06-02] MEDS: LIDOCAINE 5% TOPICAL PATCH TP SCH (12:01)
[2021-06-02] MEDS: VITAMIN B COMP W-C 1 EA TABLET (NEPHRO-VITE) PO SCH (12:01)
[2021-06-02] MEDS: buPROPion HCL 75 MG TABLET PO SCH (12:13)
[2021-06-02] MEDS: LIDOCAINE PATCH REMOVAL MC SCH (21:15)
[2021-06-03] MEDS ORDERED: PT OWN MED DRAWER 7, Y5N ONE (06:05)
[2021-06-03] MEDS: LIOTHYRONINE SODIUM 25 MCG TABLET PO SCH (06:09)
[2021-06-03] MEDS: LEVOTHYROXINE NA 200 MCG TABLET PO SCH (06:09)
[2021-06-03] MEDS: PARoxetine HCL 10 MG TABLET PO SCH (11:38)
[2021-06-03] MEDS: LIDOCAINE 5% TOPICAL PATCH TP SCH (11:38)
[2021-06-03] MEDS: hydrALAZINE HCL 50 MG TABLET (FP) PO SCH ×2 (11:38→21:40)
[2021-06-03] MEDS: VITAMIN B COMP W-C 1 EA TABLET (NEPHRO-VITE) PO SCH (11:38)
[2021-06-03] MEDS: amLODIPine BESYLATE 5 MG TABLET (FP) PO SCH (11:38)
[2021-06-03] MEDS: levETIRAcetam 500 MG/5 ML INJECTION VIAL IVPB SCH ×2 (11:39→21:40)
[2021-06-03] MEDS: buPROPion HCL 75 MG TABLET PO SCH (11:39)
[2021-06-03] MEDS ORDERED: SODIUM CHLORIDE 250 ML IV PRN (15:02)
[2021-06-03] MEDS: LIDOCAINE PATCH REMOVAL MC SCH (21:40)
[2021-06-04] MEDS ORDERED: PT OWN MED DRAWER 7, Y5N ONE ×2 (06:14→10:18)
[2021-06-04] MEDS: LIOTHYRONINE SODIUM 25 MCG TABLET PO SCH (06:23)
[2021-06-04] MEDS: hydrALAZINE HCL 50 MG TABLET (FP) PO SCH ×3 (06:24→22:37)
[2021-06-04] MEDS: LEVOTHYROXINE NA 200 MCG TABLET PO SCH (06:24)
[2021-06-04] MEDS: LIDOCAINE 5% TOPICAL PATCH TP SCH (10:15)
[2021-06-04] MEDS: VITAMIN B COMP W-C 1 EA TABLET (NEPHRO-VITE) PO SCH (10:19)
[2021-06-04] MEDS: levETIRAcetam 500 MG TABLET (FP) PO SCH ×2 (10:20→22:37)
[2021-06-04] MEDS: buPROPion HCL 75 MG TABLET PO SCH (10:21)
[2021-06-04] MEDS: PARoxetine HCL 10 MG TABLET PO SCH (10:21)
[2021-06-04] MEDS ORDERED: EPOETIN ALFA-EPBX 10,000 UNIT, EPOETIN ALFA-EPBX 2,000 UNIT IVPUSH ONE (11:00)
[2021-06-04] MEDS ORDERED: HEPARIN NA (PORCINE) 5,000 UNITS/ML 1ML VIAL IVPUSH ONE (11:00)
[2021-06-04 11:26] LABS: HEMATOCRIT 23.4 % (32.4-45.2); HEMOGLOBIN 7.9 GM/dL (10.7-15.3); MCH 31.8 pg (25.7-33.7); MCHC 33.7 g/dl (32.0-36.0); MEAN CELL VOLUME 94.5 fl (80-96); MEAN PLT VOLUME 7.4 fl (7.5-11.1); PLATELET COUNT 286 10^3/uL (134-434); RBC 2.48 M/mm3 (3.60-5.2); RDW 15.7 % (11.6-15.6); WHITE BLOOD COUNT 7.1 K/mm3 (4.0-10.0)
[2021-06-04 11:48] LABS: CALCIUM 8.4 mg/dL (8.5-10.1)
[2021-06-04 11:49] LABS: BLOOD UREA NITROGEN 17.1 mg/dL (7-18)
[2021-06-04] MEDS: amLODIPine BESYLATE 5 MG TABLET (FP) PO SCH (14:37)
[2021-06-04] MEDS ORDERED: EPOETIN ALFA-EPBX 10,000 UNIT/ML VIAL SQ ONE (15:02)
[2021-06-04 15:10] LABS: GLIADIN ANTIBODY IGA 5 units (0-19); GLIADIN ANTIBODY IGG 2 units (0-19); TRANSGLUTAMINASE IGG < 2 U/mL (0-5)
[2021-06-04 18:30] VITALS: BP 136/67; PULSE 88; TEMP 98
[2021-06-04] MEDS: LIDOCAINE PATCH REMOVAL MC SCH (22:37)
== END 2021-06-04 22:55 | disposition home health service (06) | DRG 425 ==
LOC: JER 22:11 → JERBED 05-26 02:34 → J5S 05-26 10:07
PROVIDERS: ADMIT Internal Medicine; ATTEND Family Medicine
PROC: 5A1D70Z Performance of Urinary Filtration, Intermittent, Less than 6 Hours Per Day (ICD-10-PCS; principal; 2021-06-04)
DX: E87.70 Fluid overload, unspecified (principal); N18.6 End stage renal disease; G93.41 Metabolic encephalopathy; J96.22 Acute and chronic respiratory failure with hypercapnia; J96.21 Acute and chronic respiratory failure with hypoxia; Z68.42 Body mass index [BMI] 45.0-49.9, adult; F20.0 Paranoid schizophrenia; I12.0 Hypertensive chronic kidney disease with stage 5 chronic kidney disease or end stage renal disease; E87.1 Hypo-osmolality and hyponatremia; G47.33 Obstructive sleep apnea (adult) (pediatric); Z99.2 Dependence on renal dialysis; D63.1 Anemia in chronic kidney disease; E03.9 Hypothyroidism, unspecified; Z91.14 Patient's other noncompliance with medication regimen; F17.210 Nicotine dependence, cigarettes, uncomplicated; E66.01 Morbid (severe) obesity due to excess calories; E78.5 Hyperlipidemia, unspecified
CPT/HCPCS: 36415; 36600; 70450-TC; 70490-TC; 71045-TC-FY; 76700-TC; 80048; 80053; 80177; 80307; 82105; 82140; 82533; 82550; 82553; 82784; 82803; 82962; 83036; 83516; 83540; 83550; 83605; 83735; 84100; 84439; 84443; 84480; 84481; 84484; 85025; 85027; 86803; 87040; 87340; 87516; 87912; 93005; 93010; 94640; 94660; 97116-GP; 97162-GP; 99285-25; C9803; J1644; Q5106; U0003; U0005

== ENCOUNTER 2021-08-25 15:37 | Inpatient (IN) | payer OTHER ==
[2021-08-25] MEDS ORDERED: NALOXONE HCL 0.4 MG/ML VIAL IVPUSH ONE ×2 (16:25→16:59)
[2021-08-25] MEDS ORDERED: NALOXONE HCL 0.4 MG/ML VIAL ONE ×2 (16:32→17:10)
[2021-08-25 16:34] VITALS: BMI 43.4
[2021-08-25 17:34] LABS: BASO % 0.2 % (0-2.0); HEMATOCRIT 33.7 % (32.4-45.2); HEMOGLOBIN 11.2 GM/dL (10.7-15.3); LYMPH % 26.9 % (8-40); MCH 30.6 pg (25.7-33.7); MCHC 33.3 g/dl (32.0-36.0); MEAN CELL VOLUME 91.9 fl (80-96); MEAN PLT VOLUME 7.3 fl (7.5-11.1); MONO % 5.7 % (3.8-10.2); NEUT % 67.2 % (42.8-82.8); PLATELET COUNT 271 10^3/uL (134-434); RBC 3.66 M/mm3 (3.60-5.2); RDW 15.8 % (11.6-15.6)
[2021-08-25 17:43] LABS: INR 1.13 (0.83-1.09); PROTHROMBIN TIME (PATIENT) 12.7 SEC (9.7-13.0)
[2021-08-25 17:52] LABS: CHLORIDE 98 mmol/L (98-107); SODIUM 135 mmol/L (136-145)
[2021-08-25 17:55] LABS: ANION GAP 8 MMOL/L (8-16); BLOOD UREA NITROGEN 25.2 mg/dL (7-18); CALCIUM 8.4 mg/dL (8.5-10.1); CO2 29 mmol/L (21-32); GLUCOSE,RANDOM 102 mg/dL (74-106); LIPASE 35 U/L (73-393)
[2021-08-25 17:58] LABS: CREATININE 5.5 mg/dL (0.55-1.3); SGOT/AST 17 U/L (15-37); SGPT/ALT 13 U/L (13-61)
[2021-08-25 18:00] LABS: BILIRUBIN,TOTAL 0.4 mg/dL (0.2-1); TOT PROT 7.4 g/dl (6.4-8.2)
[2021-08-25 18:01] LABS: ALK PHOS 133 U/L (45-117)
[2021-08-25 18:10] LABS: VENOUS BASE EXCESS 1.6 mmol/L (-2-2); VENOUS O2 SATURATION 82.7 % (70-80); VENOUS PH 7.279 (7.310-7.410)
[2021-08-25] MEDS ORDERED: ASPIRIN 300 MG SUPP.RECT PR ONE (18:33)
[2021-08-25] MEDS ORDERED: ASPIRIN 300 MG SUPP.RECT RC ONE (18:58)
[2021-08-25 20:27] LABS: ARTERIAL BLD GAS O2 SATURATION 99.2 % (95-98); ARTERIAL BLOOD GAS BASE EXCESS -0.7 mmol/L (-2-2); ARTERIAL BLOOD GAS PO2 204.4 mmHg (80-100)
[2021-08-25 20:37] LABS: ALLENS TEST POSITIVE
[2021-08-25 21:49] LABS: ARTERIAL BLD GAS O2 SATURATION 97.2 % (95-98); ARTERIAL BLOOD GAS BASE EXCESS 0.5 mmol/L (-2-2); ARTERIAL BLOOD GAS PO2 103.3 mmHg (80-100); ARTERIAL BLOOD GAS pH 7.324 (7.350-7.450)
[2021-08-25] MEDS ORDERED: HYDROCORTISONE SOD SUCCINATE 100 MG/2 ML VIAL IVPUSH ONE (22:44)
[2021-08-25] MEDS ORDERED: HYDROCORTISONE SOD SUCCINATE 100 MG/2 ML VIAL ONE (22:56)
[2021-08-26] MEDS: LEVOTHYROXINE SODIUM 100 MCG VIAL IVPUSH SCH ×2 (01:22→12:33)
[2021-08-26] MEDS ORDERED: hydrALAZINE HCL 20 MG/ML VIAL IVPUSH ONE (04:13)
[2021-08-26] MEDS: hydrALAZINE HCL 20 MG/ML VIAL IVPUSH PRN ×2 (04:30→09:57)
[2021-08-26] MEDS: INSULIN SLIDING SCALE (NOVOLOG) 1 VIAL SQ SCH ×4 (06:00→22:00)
[2021-08-26 06:14] LABS: ARTERIAL BLD GAS O2 SATURATION 96.2 % (95-98); ARTERIAL BLOOD GAS BASE EXCESS -3.3 mmol/L (-2-2); ARTERIAL BLOOD GAS PO2 89.7 mmHg (80-100); ARTERIAL BLOOD GAS pH 7.322 (7.350-7.450)
[2021-08-26 06:21] LABS: ALLENS TEST POSITIVE
[2021-08-26] MEDS ORDERED: D5-1/2NS+20 MEQ KCL - 20 MEQ/1,000 ML INFUS.BAG IV SCH (08:30)
[2021-08-26 08:38] LABS: BLOOD UREA NITROGEN 26.6 mg/dL (7-18); CALCIUM 8.8 mg/dL (8.5-10.1)
[2021-08-26 08:39] LABS: ALBUMIN 3.1 g/dl (3.4-5.0); MAGNESIUM 2.2 mg/dL (1.8-2.4)
[2021-08-26 08:41] LABS: CREATININE 5.8 mg/dL (0.55-1.3); PHOSPHOROUS 5.8 mg/dL (2.5-4.9)
[2021-08-26 08:43] LABS: BILIRUBIN,TOTAL 0.4 mg/dL (0.2-1); TOT PROT 7.7 g/dl (6.4-8.2)
[2021-08-26] MEDS: MUPIROCIN 2% TOPICAL OINTMENT FOR DECOLONIZATION NS SCH ×2 (09:50→21:27)
[2021-08-26] MEDS: HEPARIN NA (PORCINE) 5,000 UNITS/ML 1ML VIAL SQ SCH ×3 (09:50→21:26)
[2021-08-26] MEDS: NYSTATIN POWDER 100,000 UNITS/GM - 15 GM TOPICAL POWDER TP SCH (09:51)
[2021-08-26] MEDS ORDERED: HEPARIN NA (PORCINE) 5,000 UNITS/ML 1ML VIAL SQ SCH (10:00)
[2021-08-26] MEDS ORDERED: SODIUM CHLORIDE 250 ML IV PRN (12:11)
[2021-08-26] MEDS ORDERED: PT OWN MED DRAWER 7, Y5N ONE (14:45)
[2021-08-26] MEDS: NIFEdipine E.R. 90 MG TABLET PO SCH (15:31)
[2021-08-26] MEDS: levETIRAcetam 500 MG TABLET (FP) PO SCH (21:27)
[2021-08-26] MEDS: CHLORHEXIDINE GLUCONATE 4% CLEANSER FOR DECOLONIZATION TP SCH (21:27)
[2021-08-27] MEDS: HEPARIN NA (PORCINE) 5,000 UNITS/ML 1ML VIAL SQ SCH ×3 (06:06→21:21)
[2021-08-27] MEDS: INSULIN SLIDING SCALE (NOVOLOG) 1 VIAL SQ SCH ×4 (06:08→21:35)
[2021-08-27] MEDS: LIOTHYRONINE SODIUM 5 MCG TABLET PO SCH (06:54)
[2021-08-27] MEDS: LEVOTHYROXINE SODIUM 100 MCG VIAL IVPUSH SCH ×2 (08:41→15:33)
[2021-08-27] MEDS: MUPIROCIN 2% TOPICAL OINTMENT FOR DECOLONIZATION NS SCH ×2 (09:22→21:22)
[2021-08-27] MEDS: levETIRAcetam 500 MG TABLET (FP) PO SCH ×2 (09:23→21:21)
[2021-08-27] MEDS: NYSTATIN POWDER 100,000 UNITS/GM - 15 GM TOPICAL POWDER TP SCH (09:23)
[2021-08-27 11:25] LABS: BASO % 0.3 % (0-2.0); HEMATOCRIT 34.1 % (32.4-45.2); HEMOGLOBIN 11.5 GM/dL (10.7-15.3); LYMPH % 21.6 % (8-40); MCH 30.8 pg (25.7-33.7); MCHC 33.6 g/dl (32.0-36.0); MEAN CELL VOLUME 91.7 fl (80-96); MONO % 3.9 % (3.8-10.2); NEUT % 74.2 % (42.8-82.8); PLATELET COUNT 280 10^3/uL (134-434); RBC 3.72 M/mm3 (3.60-5.2); RDW 15.9 % (11.6-15.6); WHITE BLOOD COUNT 6.4 K/mm3 (4.0-10.0)
[2021-08-27 11:45] LABS: ALBUMIN 2.7 g/dl (3.4-5.0); CALCIUM 8.4 mg/dL (8.5-10.1)
[2021-08-27 11:48] LABS: CREATININE 6.6 mg/dL (0.55-1.3)
[2021-08-27 11:50] LABS: BILIRUBIN,TOTAL 0.3 mg/dL (0.2-1); TOT PROT 7.1 g/dl (6.4-8.2)
[2021-08-27] MEDS: NIFEdipine E.R. 90 MG TABLET PO SCH (15:32)
[2021-08-27] MEDS: CHLORHEXIDINE GLUCONATE 4% CLEANSER FOR DECOLONIZATION TP SCH (21:22)
[2021-08-27] MEDS ORDERED: hydrALAZINE HCL 20 MG/ML VIAL IVPUSH PRN (23:28)
[2021-08-28] MEDS: HEPARIN NA (PORCINE) 5,000 UNITS/ML 1ML VIAL SQ SCH ×3 (06:03→21:08)
[2021-08-28] MEDS: INSULIN SLIDING SCALE (NOVOLOG) 1 VIAL SQ SCH ×4 (06:10→21:08)
[2021-08-28] MEDS ORDERED: PT OWN MED DRAWER 7, Y5N ONE (06:44)
[2021-08-28] MEDS: LIOTHYRONINE SODIUM 5 MCG TABLET PO SCH (06:46)
[2021-08-28] MEDS ORDERED: MUPIROCIN 2% TOPICAL OINTMENT FOR DECOLONIZATION NS SCH (10:00)
[2021-08-28] MEDS: NYSTATIN POWDER 100,000 UNITS/GM - 15 GM TOPICAL POWDER TP SCH ×2 (10:42→21:27)
[2021-08-28] MEDS: NIFEdipine E.R. 90 MG TABLET PO SCH (10:42)
[2021-08-28] MEDS: levETIRAcetam 500 MG TABLET (FP) PO SCH ×2 (10:42→21:08)
[2021-08-28] MEDS: LEVOTHYROXINE SODIUM 100 MCG VIAL IM SCH (10:43)
[2021-08-28] MEDS ORDERED: CHLORHEXIDINE GLUCONATE 4% CLEANSER FOR DECOLONIZATION TP SCH (22:00)
[2021-08-29] MEDS ORDERED: PT OWN MED DRAWER 7, Y5N ONE ×3 (05:50→09:03)
[2021-08-29] MEDS: HEPARIN NA (PORCINE) 5,000 UNITS/ML 1ML VIAL SQ SCH ×3 (06:09→20:59)
[2021-08-29] MEDS: INSULIN SLIDING SCALE (NOVOLOG) 1 VIAL SQ SCH ×4 (06:25→21:06)
[2021-08-29] MEDS: LIOTHYRONINE SODIUM 5 MCG TABLET PO SCH (06:48)
[2021-08-29 08:26] LABS: CHLORIDE 98 mmol/L (98-107); SODIUM 136 mmol/L (136-145)
[2021-08-29 08:27] LABS: BASO % 0.6 % (0-2.0); HEMATOCRIT 34.8 % (32.4-45.2); HEMOGLOBIN 11.8 GM/dL (10.7-15.3); LYMPH % 34.7 % (8-40); MCH 31.2 pg (25.7-33.7); MEAN CELL VOLUME 91.5 fl (80-96); MEAN PLT VOLUME 7.1 fl (7.5-11.1); NEUT % 59.7 % (42.8-82.8); PLATELET COUNT 272 10^3/uL (134-434); RDW 15.5 % (11.6-15.6); WHITE BLOOD COUNT 6.8 K/mm3 (4.0-10.0)
[2021-08-29 08:29] LABS: CALCIUM 8.5 mg/dL (8.5-10.1); GLUCOSE,RANDOM 103 mg/dL (74-106)
[2021-08-29 08:30] LABS: ALBUMIN 2.8 g/dl (3.4-5.0); ANION GAP 11 MMOL/L (8-16); BLOOD UREA NITROGEN 35.7 mg/dL (7-18); CO2 27 mmol/L (21-32)
[2021-08-29 08:33] LABS: SGOT/AST 17 U/L (15-37); SGPT/ALT 15 U/L (13-61)
[2021-08-29 08:34] LABS: BILIRUBIN,TOTAL 0.6 mg/dL (0.2-1); TOT PROT 7.5 g/dl (6.4-8.2)
[2021-08-29 08:36] LABS: ALK PHOS 142 U/L (45-117)
[2021-08-29 08:43] LABS: CREATININE 7.8 mg/dL (0.55-1.3)
[2021-08-29] MEDS: NIFEdipine E.R. 90 MG TABLET PO SCH (09:09)
[2021-08-29] MEDS: levETIRAcetam 500 MG TABLET (FP) PO SCH ×2 (09:09→20:59)
[2021-08-29] MEDS: LEVOTHYROXINE SODIUM 100 MCG VIAL IM SCH (09:10)
[2021-08-29] MEDS: NYSTATIN POWDER 100,000 UNITS/GM - 15 GM TOPICAL POWDER TP SCH ×2 (09:16→21:10)
[2021-08-29] MEDS ORDERED: SODIUM CHLORIDE 250 ML IV PRN (14:24)
[2021-08-29 15:13] LABS: HEPATITIS B SURFACE AG CONFIRM CONFIRMED (NONREACTIVE)
[2021-08-30] MEDS ORDERED: PT OWN MED DRAWER 7, Y5N ONE ×4 (06:01→09:24)
[2021-08-30] MEDS: HEPARIN NA (PORCINE) 5,000 UNITS/ML 1ML VIAL SQ SCH ×2 (06:09→15:37)
[2021-08-30] MEDS: INSULIN SLIDING SCALE (NOVOLOG) 1 VIAL SQ SCH ×2 (06:10→13:41)
[2021-08-30] MEDS ORDERED: LIOTHYRONINE SODIUM 25 MCG TABLET PO SCH (07:00)
[2021-08-30 09:34] VITALS: PULSE 80
[2021-08-30] MEDS: levETIRAcetam 500 MG TABLET (FP) PO SCH (09:49)
[2021-08-30] MEDS: NYSTATIN POWDER 100,000 UNITS/GM - 15 GM TOPICAL POWDER TP SCH (09:49)
[2021-08-30] MEDS: NIFEdipine E.R. 90 MG TABLET PO SCH (09:49)
[2021-08-30] MEDS ORDERED: LEVOTHYROXINE NA 75 MCG TABLET (FP) PO ONE (10:00)
[2021-08-30 11:38] VITALS: TEMP 98.8
[2021-08-30 13:33] VITALS: BP 153/63
[2021-08-31] MEDS ORDERED: LEVOTHYROXINE NA 75 MCG TABLET (FP) PO SCH (07:00)
[2021-08-31] MEDS ORDERED: VITAMIN B COMP W-C 1 EA TABLET (NEPHRO-VITE) PO SCH (10:00)
== END 2021-08-30 17:58 | disposition left against medical advice (07) | DRG 52 ==
LOC: JER 15:37 → JERBED 21:16 → JICU 08-26 02:55 → J4S 08-27 23:24
PROVIDERS: ADMIT Internal Medicine Pulmonary Disease; ATTEND Family Medicine
PROC: 5A1D70Z Performance of Urinary Filtration, Intermittent, Less than 6 Hours Per Day (ICD-10-PCS; principal; 2021-08-30)
DX: E03.5 Myxedema coma (principal); N18.6 End stage renal disease; J96.22 Acute and chronic respiratory failure with hypercapnia; J96.21 Acute and chronic respiratory failure with hypoxia; I12.0 Hypertensive chronic kidney disease with stage 5 chronic kidney disease or end stage renal disease; I31.3 Pericardial effusion (noninflammatory); J44.1 Chronic obstructive pulmonary disease with (acute) exacerbation; E27.40 Unspecified adrenocortical insufficiency; G93.49 Other encephalopathy; Z68.41 Body mass index [BMI] 40.0-44.9, adult; F20.0 Paranoid schizophrenia; G47.33 Obstructive sleep apnea (adult) (pediatric); E03.9 Hypothyroidism, unspecified; Z99.2 Dependence on renal dialysis; E11.22 Type 2 diabetes mellitus with diabetic chronic kidney disease; E78.5 Hyperlipidemia, unspecified; E66.01 Morbid (severe) obesity due to excess calories; F41.8 Other specified anxiety disorders; F17.210 Nicotine dependence, cigarettes, uncomplicated
CPT/HCPCS: 36415; 36600; 70450-TC; 71045-TC-FY; 80053; 80177; 80307; 82140; 82550; 82803; 82962; 83605; 83690; 83735; 84100; 84439; 84443; 84484; 85025; 85610; 85730; 86803; 87040; 87340; 93005; 93010; 99285-25; C9803; J1644; U0003; U0005

== ENCOUNTER 2021-11-24 11:54 | Inpatient (IN) | payer OTHER ==
[2021-11-24] MEDS ORDERED: EPOETIN ALFA-EPBX 10,000 UNIT/ML VIAL SQ ONE (13:23)
[2021-11-24] MEDS ORDERED: SODIUM CHLORIDE 250 ML IV PRN (13:23)
[2021-11-24 14:05] LABS: BASO % 0.3 % (0-2.0); LYMPH % 12.3 % (8-40); MCH 32.6 pg (25.7-33.7); MEAN CELL VOLUME 98.7 fl (80-96); MEAN PLT VOLUME 8.1 fl (7.5-11.1); MONO % 5.3 % (3.8-10.2); NEUT % 82.1 % (42.8-82.8); PLATELET COUNT 229 10^3/uL (134-434); RBC 1.83 M/mm3 (3.60-5.2)
[2021-11-24 14:12] LABS: INR 1.08 (0.83-1.09); PROTHROMBIN TIME (PATIENT) 12.4 SEC (9.7-13.0)
[2021-11-24 14:25] LABS: CHLORIDE 91 mmol/L (98-107); SODIUM 125 mmol/L (136-145)
[2021-11-24 14:27] LABS: ALBUMIN 3.5 g/dl (3.4-5.0); BLOOD UREA NITROGEN 57.3 mg/dL (7-18); CALCIUM 8.8 mg/dL (8.5-10.1); GLUCOSE,RANDOM 171 mg/dL (74-106)
[2021-11-24 14:30] LABS: SGOT/AST 54 U/L (15-37); SGPT/ALT 43 U/L (13-61)
[2021-11-24 14:32] LABS: BILIRUBIN,TOTAL 0.7 mg/dL (0.2-1); TOT PROT 7.5 g/dl (6.4-8.2)
[2021-11-24 14:33] LABS: ALK PHOS 274 U/L (45-117)
[2021-11-24 14:38] LABS: VENOUS BASE EXCESS -5.1 mmol/L (-2-2); VENOUS O2 SATURATION 44.3 % (70-80); VENOUS PCO2 41.1 mmHg (38-52); VENOUS PH 7.319 (7.310-7.410)
[2021-11-24 14:43] LABS: BG HCT 35.1 % (32.4-45.2)
[2021-11-24 14:49] LABS: ANION GAP 11 MMOL/L (8-16); CO2 23 mmol/L (21-32); CREATININE 8.1 mg/dL (0.55-1.3); N-TERMINAL BNP 45518.2 pg/ml (5-125)
[2021-11-24] MEDS ORDERED: NITROGLYCERIN 25MG/D5W 250ML 25 MG/250 ML ML IVPB SCH (15:00)
[2021-11-24 16:28] LABS: CHLORIDE 92 mmol/L (98-107); SODIUM 126 mmol/L (136-145)
[2021-11-24 16:29] LABS: CALCIUM 8.5 mg/dL (8.5-10.1)
[2021-11-24 16:30] LABS: BLOOD UREA NITROGEN 58.9 mg/dL (7-18); CO2 25 mmol/L (21-32); GLUCOSE,RANDOM 158 mg/dL (74-106)
[2021-11-24 16:37] LABS: ANION GAP 9 MMOL/L (8-16); CREATININE 8.3 mg/dL (0.55-1.3)
[2021-11-24 17:35] LABS: ARTERIAL BLD GAS O2 SATURATION 99.3 % (95-98); ARTERIAL BLOOD GAS BASE EXCESS -2.8 mmol/L (-2-2)
[2021-11-24 17:38] LABS: ALLENS TEST POSITIVE
[2021-11-24 17:39] LABS: VENT MODE BIPAP; VENT RATE 20
[2021-11-24 18:19] VITALS: BMI 47.9
[2021-11-24] MEDS: INSULIN SLIDING SCALE (NOVOLOG) 1 VIAL SQ SCH ×2 (18:51→22:04)
[2021-11-24] MEDS: ALBUTEROL SO4 2.5/IPRATROPIUM 0.5 INH SOL 3 ML VIAL.NEB. NEB SCH ×2 (20:00→21:30)
[2021-11-24] MEDS: levETIRAcetam 500 MG/5 ML INJECTION VIAL IVPB SCH (21:50)
[2021-11-24] MEDS: MUPIROCIN 2% TOPICAL OINTMENT FOR DECOLONIZATION NS SCH (21:50)
[2021-11-24] MEDS ORDERED: CHLORHEXIDINE GLUCONATE 4% CLEANSER FOR DECOLONIZATION TP SCH (22:00)
[2021-11-24] MEDS: HEPARIN NA (PORCINE) 5,000 UNITS/ML 1ML VIAL SQ SCH (22:11)
[2021-11-24 22:20] LABS: CALCIUM 7.9 mg/dL (8.5-10.1)
[2021-11-24 22:24] LABS: CREATININE 4.4 mg/dL (0.55-1.3)
[2021-11-24 22:30] LABS: BLOOD UREA NITROGEN 28.9 mg/dL (7-18)
[2021-11-25] MEDS: HEPARIN NA (PORCINE) 5,000 UNITS/ML 1ML VIAL SQ SCH ×3 (06:32→22:03)
[2021-11-25] MEDS ORDERED: DEXTROSE 50%-WATER - 25 GM/50 ML VIAL IVPUSH ONE (06:36)
[2021-11-25] MEDS: INSULIN SLIDING SCALE (NOVOLOG) 1 VIAL SQ SCH ×4 (06:45→22:08)
[2021-11-25] MEDS: ALBUTEROL SO4 2.5/IPRATROPIUM 0.5 INH SOL 3 ML VIAL.NEB. NEB SCH ×4 (08:00→20:26)
[2021-11-25] MEDS: levETIRAcetam 500 MG/5 ML INJECTION VIAL IVPB SCH (09:02)
[2021-11-25] MEDS: MUPIROCIN 2% TOPICAL OINTMENT FOR DECOLONIZATION NS SCH (09:02)
[2021-11-25] MEDS ORDERED: PNEUMOC 13-VAL CONJ-DIP CRM/PF 0.5 ML DISP.SYRIN IM ONE (10:18)
[2021-11-25] MEDS ORDERED: ALBUTEROL SO4 0.083% IH SOL 2.5 MG/3 ML VIAL.NEB. NEB ONE (10:59)
[2021-11-25] MEDS ORDERED: ACETAMINOPHEN 325 MG TABLET (FP) PO PRN ×2 (11:06→17:45)
[2021-11-25] MEDS ORDERED: ALBUTEROL SO4 0.5 % INH SOLN 2.5 MG/0.5 ML VIAL.NEB. NEB SCH (11:15)
[2021-11-25] MEDS ORDERED: FLU VACC QS2021-22(6MOS UP)/PF 60 MCG/0.5 ML SYRINGE IM ONE (12:00)
[2021-11-25] MEDS ORDERED: PNEUMOCOCCAL 23 VACCINE 0.5 ML VIAL IM ONE (12:00)
[2021-11-25 12:09] LABS: SARS-CoV-2 NAA Not Detected (Not Detected)
[2021-11-25] MEDS ORDERED: ALBUTEROL SO4 2.5/IPRATROPIUM 0.5 INH SOL 3 ML VIAL.NEB. NEB PRN (12:16)
[2021-11-25] MEDS ORDERED: SODIUM CHLORIDE 250 ML IV PRN (13:22)
[2021-11-25] MEDS ORDERED: hydrALAZINE HCL 50 MG TABLET (FP) PO SCH (14:00)
[2021-11-25] MEDS ORDERED: INSULIN SLIDING SCALE (NOVOLOG) 1 VIAL SQ SCH (16:30)
[2021-11-25 16:42] LABS: EPI CELLS >36 /uL (0-25.1); HYALINE CASTS 1 /uL (0-3.1); URINE APPEARANCE CLOUDY; URINE BACTERIA 946 /uL (0-1359); URINE BILIRUBIN NEGATIVE (NEGATIVE); URINE COLOR YELLOW; URINE GLUCOSE (UA) 1+ (NEGATIVE); URINE KETONE NEGATIVE (NEGATIVE); URINE LEUK ESTERASE 1+ (NEGATIVE); URINE NITRITE NEGATIVE (NEGATIVE); URINE PROTEIN 3+ (NEGATIVE); URINE RBC 21 /uL (0-23.9); URINE UROBILINOGEN 0.2 mg/dL (0.2-1.0); URINE WBC 369 /uL (0-25.8)
[2021-11-25 16:49] VITALS: BP 159/73; PULSE 82; TEMP 97.8
[2021-11-25] MEDS ORDERED: SEVELAMER CARBONATE 800 MG TAB (FP) PO SCH (17:30)
[2021-11-25] MEDS: SEVELAMER CARBONATE 800 MG TAB (FP) PO SCH (18:13)
[2021-11-25] MEDS ORDERED: MUPIROCIN 2% TOPICAL OINTMENT FOR DECOLONIZATION NS SCH (22:00)
[2021-11-25] MEDS ORDERED: levETIRAcetam 500 MG TABLET (FP) PO SCH (22:00)
[2021-11-25] MEDS ORDERED: ATORVASTATIN CA 10 MG TABLET (FP) PO SCH ×2 (22:00)
[2021-11-25] MEDS ORDERED: THIAMINE HCL 100 MG TABLET (FP) PO SCH (22:00)
[2021-11-25] MEDS: levETIRAcetam 500 MG TABLET (FP) PO SCH (22:02)
[2021-11-25] MEDS: hydrALAZINE HCL 50 MG TABLET (FP) PO SCH (22:03)
[2021-11-25] MEDS: THIAMINE HCL 100 MG TABLET (FP) PO SCH (22:03)
[2021-11-26] MEDS: ALBUTEROL SO4 HFA INHALER IH PRN ×2 (01:34→06:06)
[2021-11-26] MEDS: HEPARIN NA (PORCINE) 5,000 UNITS/ML 1ML VIAL SQ SCH ×2 (06:07→15:51)
[2021-11-26] MEDS: INSULIN SLIDING SCALE (NOVOLOG) 1 VIAL SQ SCH ×3 (06:13→19:50)
[2021-11-26] MEDS ORDERED: LEVOTHYROXINE NA 75 MCG TABLET (FP) PO SCH ×2 (07:00)
[2021-11-26] MEDS: ALBUTEROL SO4 2.5/IPRATROPIUM 0.5 INH SOL 3 ML VIAL.NEB. NEB SCH ×3 (07:30→15:50)
[2021-11-26] MEDS: hydrALAZINE HCL 50 MG TABLET (FP) PO SCH ×2 (09:15→15:51)
[2021-11-26 09:25] LABS: HEMATOCRIT 22.2 % (32.4-45.2); HEMOGLOBIN 7.5 GM/dL (10.7-15.3); MCH 32.4 pg (25.7-33.7); MCHC 33.7 g/dl (32.0-36.0); MEAN CELL VOLUME 96.3 fl (80-96); PLATELET COUNT 204 10^3/uL (134-434); RBC 2.31 M/mm3 (3.60-5.2); RDW 16.4 % (11.6-15.6); WHITE BLOOD COUNT 6.3 K/mm3 (4.0-10.0)
[2021-11-26 10:00] LABS: CALCIUM 8.7 mg/dL (8.5-10.1)
[2021-11-26] MEDS ORDERED: NIFEdipine E.R. 90 MG TABLET PO SCH ×2 (10:00)
[2021-11-26] MEDS ORDERED: chlorproMAZINE HCL 25 MG TABLET PO SCH ×2 (10:00)
[2021-11-26] MEDS ORDERED: VITAMIN B COMP W-C 1 EA TABLET (NEPHRO-VITE) PO SCH ×2 (10:00)
[2021-11-26] MEDS ORDERED: PARoxetine HCL 20 MG TABLET PO SCH ×2 (10:00)
[2021-11-26 10:01] LABS: ALBUMIN 3.3 g/dl (3.4-5.0); BLOOD UREA NITROGEN 46.8 mg/dL (7-18)
[2021-11-26 10:04] LABS: CREATININE 6.8 mg/dL (0.55-1.3)
[2021-11-26 10:05] LABS: BILIRUBIN,TOTAL 0.5 mg/dL (0.2-1); TOT PROT 6.9 g/dl (6.4-8.2)
[2021-11-26] MEDS: THIAMINE HCL 100 MG TABLET (FP) PO SCH (10:47)
[2021-11-26] MEDS: levETIRAcetam 500 MG TABLET (FP) PO SCH (10:48)
[2021-11-26 13:14] LABS: HEPATITIS B SURFACE AG CONFIRM CONFIRMED (NONREACTIVE)
[2021-11-26] MEDS ORDERED: EPOETIN ALFA-EPBX 10,000 UNIT/ML VIAL SQ ONE ×2 (13:22→14:30)
[2021-11-26] MEDS ORDERED: FUROSEMIDE 40 MG/4 ML INJECTABLE VIAL IVPB ONE (14:30)
[2021-11-26] MEDS: SEVELAMER CARBONATE 800 MG TAB (FP) PO SCH (19:50)
== END 2021-11-26 18:25 | disposition home health service (06) | DRG 194 ==
LOC: JER 11:54 → JERBED 15:35 → JICU 17:02 → J7W 11-25 17:12
PROVIDERS: ADMIT Internal Medicine; ATTEND Family Medicine
PROC: 30233N1 Transfusion of Nonautologous Red Blood Cells into Peripheral Vein, Percutaneous Approach (ICD-10-PCS; principal; 2021-11-24)
DX: I13.2 Hypertensive heart and chronic kidney disease with heart failure and with stage 5 chronic kidney disease, or end stage renal disease (principal); N18.6 End stage renal disease; J96.01 Acute respiratory failure with hypoxia; G93.41 Metabolic encephalopathy; J44.1 Chronic obstructive pulmonary disease with (acute) exacerbation; Z68.41 Body mass index [BMI] 40.0-44.9, adult; E87.70 Fluid overload, unspecified; E78.5 Hyperlipidemia, unspecified; E11.65 Type 2 diabetes mellitus with hyperglycemia; D64.9 Anemia, unspecified; E03.9 Hypothyroidism, unspecified; E66.9 Obesity, unspecified; Z68.42 Body mass index [BMI] 45.0-49.9, adult; Z91.14 Patient's other noncompliance with medication regimen; E87.5 Hyperkalemia; I50.9 Heart failure, unspecified
CPT/HCPCS: 36415; 36430; 36600; 71045-TC-FY; 80048; 80053; 81003; 82803; 82962; 83036; 83880; 84443; 84484; 85025; 85027; 85610; 86803; 86850; 86900; 86901; 86922; 87340; 90686; 90732; 93005; 93010; 93306-TC; 94640; 94660; 99285-25; C9803-CS; G0008; G0009; J1644; P9058; Q5106; U0003; U0005

== ENCOUNTER 2022-01-27 23:32 | Emergency (ER) | payer OTHER ==
[2022-01-27 23:48] VITALS: BP 170/94; PULSE 80; TEMP 97.1; BMI 47.2
== END 2022-01-28 01:39 | disposition home or self-care (01) ==
LOC: JER 23:32
DX: R53.1 Weakness (principal)
CPT/HCPCS: 99283-25

== ENCOUNTER 2022-05-19 11:14 | Emergency (ER) | payer OTHER ==
[2022-05-19 11:42] VITALS: BP 139/79; PULSE 75; RESP 19; TEMP 97.7; BMI 44.0
== END 2022-05-19 15:15 | disposition left against medical advice (07) ==
LOC: JER 11:14
DX: N18.6 End stage renal disease (principal); Z99.2 Dependence on renal dialysis
CPT/HCPCS: 82962; 99283-25

== ENCOUNTER 2022-05-20 04:58 | Inpatient (IN) | payer OTHER ==
[2022-05-20 07:20] LABS: BASO % 0.6 % (0-2.0); HEMATOCRIT 28.6 % (32.4-45.2); HEMOGLOBIN 9.1 GM/dL (10.7-15.3); LYMPH % 14.8 % (8-40); MCH 30.7 pg (25.7-33.7); MCHC 31.8 g/dl (32.0-36.0); MEAN CELL VOLUME 96.4 fl (80-96); MEAN PLT VOLUME 7.6 fl (7.5-11.1); MONO % 7.2 % (3.8-10.2); NEUT % 77.4 % (42.8-82.8); PLATELET COUNT 362 10^3/uL (134-434); RBC 2.96 M/mm3 (3.60-5.2); RDW 17.4 % (11.6-15.6); WHITE BLOOD COUNT 7.6 K/mm3 (4.0-10.0)
[2022-05-20 07:35] LABS: CHLORIDE 97 mmol/L (98-107); SODIUM 133 mmol/L (136-145)
[2022-05-20 07:37] LABS: CALCIUM 8.6 mg/dL (8.5-10.1)
[2022-05-20 07:38] LABS: ALBUMIN 2.7 g/dl (3.4-5.0); ANION GAP 14 MMOL/L (8-16); CO2 22 mmol/L (21-32); GLUCOSE,RANDOM 152 mg/dL (74-106); MAGNESIUM 2.2 mg/dL (1.8-2.4)
[2022-05-20 07:41] LABS: CREATININE 6.1 mg/dL (0.55-1.3); PHOSPHOROUS 4.5 mg/dL (2.5-4.9); SGOT/AST 138 U/L (15-37); SGPT/ALT 116 U/L (13-61)
[2022-05-20 07:43] LABS: BILIRUBIN,TOTAL 1.7 mg/dL (0.2-1); TOT PROT 7.4 g/dl (6.4-8.2)
[2022-05-20] MEDS ORDERED: DEXTROSE 5% IVPB ONE (07:47)
[2022-05-20] MEDS ORDERED: WATER IVPB ONE (07:47)
[2022-05-20] MEDS ORDERED: CLINDAMYCIN IVPB ONE (07:47)
[2022-05-20 07:58] LABS: ALK PHOS 1762 U/L (45-117); N-TERMINAL BNP 78834.1 pg/ml (5-125)
[2022-05-20] MEDS ORDERED: SODIUM CHLORIDE 250 ML IV PRN (08:38)
[2022-05-20] MEDS ORDERED: EPOETIN ALFA-EPBX 4,000 UNIT/ML VIAL SQ ONE (08:38)
[2022-05-20] MEDS: THIAMINE HCL 100 MG TABLET (FP) PO SCH ×2 (14:31→22:43)
[2022-05-20] MEDS: levETIRAcetam 500 MG TABLET (FP) PO SCH ×2 (14:32→22:43)
[2022-05-20] MEDS: LEVOTHYROXINE NA 75 MCG TABLET (FP) PO SCH (14:32)
[2022-05-20] MEDS: hydrALAZINE HCL 50 MG TABLET (FP) PO SCH ×2 (14:33→22:43)
[2022-05-20] MEDS: HEPARIN NA (PORCINE) 5,000 UNITS/ML 1ML VIAL SQ SCH ×2 (14:37→22:43)
[2022-05-20] MEDS ORDERED: PNEUMOC 20-VAL CONJ-DIP CRM/PF 0.5 ML SYRINGE IM ONE (15:42)
[2022-05-20] MEDS: INSULIN SLIDING SCALE (NOVOLOG) 1 VIAL SQ SCH ×2 (16:43→22:43)
[2022-05-20] MEDS ORDERED: ATORVASTATIN CA 10 MG TABLET (FP) PO SCH (22:00)
[2022-05-21] MEDS: HEPARIN NA (PORCINE) 5,000 UNITS/ML 1ML VIAL SQ SCH ×3 (06:55→21:27)
[2022-05-21] MEDS: hydrALAZINE HCL 50 MG TABLET (FP) PO SCH ×3 (06:55→21:27)
[2022-05-21] MEDS: LEVOTHYROXINE NA 75 MCG TABLET (FP) PO SCH (06:56)
[2022-05-21] MEDS: INSULIN SLIDING SCALE (NOVOLOG) 1 VIAL SQ SCH ×4 (06:56→21:28)
[2022-05-21] MEDS ORDERED: EPOETIN ALFA-EPBX 4,000 UNIT/ML VIAL IVPUSH ONE (08:00)
[2022-05-21] MEDS ORDERED: SODIUM CHLORIDE 250 ML IV PRN (08:00)
[2022-05-21 08:43] LABS: BASO % 0.3 % (0-2.0); HEMATOCRIT 24.4 % (32.4-45.2); HEMOGLOBIN 7.9 GM/dL (10.7-15.3); LYMPH % 14.7 % (8-40); MCH 31.1 pg (25.7-33.7); MCHC 32.4 g/dl (32.0-36.0); MEAN CELL VOLUME 95.9 fl (80-96); MONO % 9.6 % (3.8-10.2); NEUT % 75.4 % (42.8-82.8); PLATELET COUNT 296 10^3/uL (134-434); RBC 2.54 M/mm3 (3.60-5.2); RDW 17.3 % (11.6-15.6); WHITE BLOOD COUNT 6.1 K/mm3 (4.0-10.0)
[2022-05-21] MEDS ORDERED: ACETAMINOPHEN 325 MG TABLET (FP) PO ONE (09:00)
[2022-05-21 09:03] LABS: ALBUMIN 2.2 g/dl (3.4-5.0)
[2022-05-21 09:06] LABS: CREATININE 4.9 mg/dL (0.55-1.3); PHOSPHOROUS 4.1 mg/dL (2.5-4.9)
[2022-05-21 09:08] LABS: BILIRUBIN,TOTAL 1.3 mg/dL (0.2-1); TOT PROT 6.2 g/dl (6.4-8.2)
[2022-05-21] MEDS: SEVELAMER CARBONATE 800 MG TAB (FP) PO SCH (12:14)
[2022-05-21] MEDS: levETIRAcetam 500 MG TABLET (FP) PO SCH ×2 (12:14→21:27)
[2022-05-21] MEDS: NIFEdipine E.R. 90 MG TABLET PO SCH (12:14)
[2022-05-21] MEDS: THIAMINE HCL 100 MG TABLET (FP) PO SCH ×2 (12:14→21:27)
[2022-05-21] MEDS: FUROSEMIDE 40 MG/4 ML INJECTABLE VIAL IVPUSH SCH (12:15)
[2022-05-21] MEDS ORDERED: VANCOMYCIN/WATER FOR INJ (PEG) 1,000 MG/200 ML BAG IVPB ONE (14:11)
[2022-05-21 17:12] LABS: EPI CELLS >36 /uL (0-25.1); HYALINE CASTS 1036 /uL (0-3.1); URINE APPEARANCE TURBID; URINE BACTERIA 2831 /uL (0-1359); URINE BILIRUBIN NEGATIVE (NEGATIVE); URINE COLOR DK YELLOW; URINE GLUCOSE (UA) NEGATIVE (NEGATIVE); URINE KETONE TRACE (NEGATIVE); URINE LEUK ESTERASE 2+ (NEGATIVE); URINE NITRITE NEGATIVE (NEGATIVE); URINE PROTEIN 3+ (NEGATIVE); URINE WBC 16736 /uL (0-25.8)
[2022-05-21 17:22] LABS: URINE RBC 252 /uL (0-23.9)
[2022-05-22] MEDS ORDERED: ACETAMINOPHEN 325 MG TABLET (FP) PO ONE (03:30)
[2022-05-22] MEDS: HEPARIN NA (PORCINE) 5,000 UNITS/ML 1ML VIAL SQ SCH ×3 (06:15→21:18)
[2022-05-22] MEDS: hydrALAZINE HCL 50 MG TABLET (FP) PO SCH ×3 (06:15→21:18)
[2022-05-22] MEDS: INSULIN SLIDING SCALE (NOVOLOG) 1 VIAL SQ SCH ×4 (06:19→21:17)
[2022-05-22 08:36] LABS: HEPATITIS B SURFACE AG CONFIRM CONFIRMED (NONREACTIVE)
[2022-05-22 10:12] LABS: CALCIUM 8.3 mg/dL (8.5-10.1)
[2022-05-22 10:13] LABS: ALBUMIN 2.2 g/dl (3.4-5.0); BLOOD UREA NITROGEN 35.6 mg/dL (7-18)
[2022-05-22 10:15] LABS: CREATININE 4.1 mg/dL (0.55-1.3)
[2022-05-22 10:16] LABS: BILIRUBIN,TOTAL 1.4 mg/dL (0.2-1); TOT PROT 6.3 g/dl (6.4-8.2)
[2022-05-22] MEDS: levETIRAcetam 500 MG TABLET (FP) PO SCH ×2 (11:05→21:18)
[2022-05-22] MEDS: LIOTHYRONINE SODIUM 5 MCG TABLET PO SCH (11:05)
[2022-05-22] MEDS: FUROSEMIDE 40 MG/4 ML INJECTABLE VIAL IVPUSH SCH (11:06)
[2022-05-22] MEDS: LEVOTHYROXINE SODIUM 100 MCG VIAL IVPUSH SCH (11:06)
[2022-05-22] MEDS: SEVELAMER CARBONATE 800 MG TAB (FP) PO SCH (11:44)
[2022-05-22] MEDS: THIAMINE HCL 100 MG TABLET (FP) PO SCH ×2 (11:44→21:18)
[2022-05-22] MEDS: NIFEdipine E.R. 90 MG TABLET PO SCH (11:45)
[2022-05-22] MEDS ORDERED: SODIUM CHLORIDE 250 ML IV PRN ×2 (12:23→12:24)
[2022-05-22] MEDS: LIDOCAINE 5% TOPICAL PATCH TP SCH (13:28)
[2022-05-22] MEDS: LIDOCAINE PATCH REMOVAL MC SCH (21:18)
[2022-05-23] MEDS: hydrALAZINE HCL 50 MG TABLET (FP) PO SCH ×3 (06:02→22:15)
[2022-05-23] MEDS: HEPARIN NA (PORCINE) 5,000 UNITS/ML 1ML VIAL SQ SCH ×3 (06:03→22:15)
[2022-05-23] MEDS: INSULIN SLIDING SCALE (NOVOLOG) 1 VIAL SQ SCH ×4 (07:48→22:31)
[2022-05-23] MEDS: levETIRAcetam 500 MG TABLET (FP) PO SCH ×2 (09:43→22:14)
[2022-05-23] MEDS: THIAMINE HCL 100 MG TABLET (FP) PO SCH ×2 (09:44→22:14)
[2022-05-23] MEDS: SEVELAMER CARBONATE 800 MG TAB (FP) PO SCH (09:44)
[2022-05-23] MEDS: NIFEdipine E.R. 90 MG TABLET PO SCH (09:44)
[2022-05-23] MEDS: FUROSEMIDE 40 MG/4 ML INJECTABLE VIAL IVPUSH SCH (09:44)
[2022-05-23] MEDS: LIDOCAINE 5% TOPICAL PATCH TP SCH (09:44)
[2022-05-23] MEDS: LEVOTHYROXINE SODIUM 100 MCG VIAL IVPUSH SCH (09:45)
[2022-05-23] MEDS: LIOTHYRONINE SODIUM 5 MCG TABLET PO SCH (09:45)
[2022-05-23] MEDS ORDERED: ALBUTEROL SO4 HFA INHALER IH PRN (10:18)
[2022-05-23 11:18] LABS: HEMATOCRIT 27.2 % (32.4-45.2); HEMOGLOBIN 8.7 GM/dL (10.7-15.3); MCH 30.4 pg (25.7-33.7); MCHC 31.9 g/dl (32.0-36.0); MEAN CELL VOLUME 95.2 fl (80-96); MEAN PLT VOLUME 7.1 fl (7.5-11.1); PLATELET COUNT 331 10^3/uL (134-434); RBC 2.85 M/mm3 (3.60-5.2); RDW 17.3 % (11.6-15.6); WHITE BLOOD COUNT 6.6 K/mm3 (4.0-10.0)
[2022-05-23 11:31] LABS: CHLORIDE 95 mmol/L (98-107); SODIUM 133 mmol/L (136-145)
[2022-05-23 11:42] LABS: ALBUMIN 2.3 g/dl (3.4-5.0); ANION GAP 11 MMOL/L (8-16); CALCIUM 8.4 mg/dL (8.5-10.1); CO2 28 mmol/L (21-32)
[2022-05-23 11:43] LABS: BLOOD UREA NITROGEN 39.3 mg/dL (7-18); GLUCOSE,RANDOM 177 mg/dL (74-106)
[2022-05-23 11:44] LABS: CREATININE 4.4 mg/dL (0.55-1.3)
[2022-05-23 11:45] LABS: SGOT/AST 40 U/L (15-37)
[2022-05-23 11:46] LABS: BILIRUBIN,TOTAL 1.3 mg/dL (0.2-1); SGPT/ALT 57 U/L (13-61); TOT PROT 6.6 g/dl (6.4-8.2)
[2022-05-23 11:51] LABS: ALK PHOS > 1000 U/L (45-117)
[2022-05-23] MEDS ORDERED: traMADol HCL 50 MG TABLET PO ONE (13:15)
[2022-05-23] MEDS ORDERED: FUROSEMIDE 40 MG/5 ML UNIT-DOSE CUP PO ONE (13:42)
[2022-05-23 14:28] LABS: ANISOCYTOSIS 1+; MACROCYTOSIS 0; OVALOCYTE 2+
[2022-05-23] MEDS ORDERED: traMADol HCL 50 MG TABLET PO PRN (22:00)
[2022-05-23] MEDS: LIDOCAINE PATCH REMOVAL MC SCH (22:16)
[2022-05-23] MEDS: MOMETASONE FUROATE 220 MCG/IH INHALER IH SCH (23:20)
[2022-05-24] MEDS: hydrALAZINE HCL 50 MG TABLET (FP) PO SCH ×3 (06:20→21:25)
[2022-05-24] MEDS: HEPARIN NA (PORCINE) 5,000 UNITS/ML 1ML VIAL SQ SCH ×3 (06:20→21:25)
[2022-05-24] MEDS: INSULIN SLIDING SCALE (NOVOLOG) 1 VIAL SQ SCH ×4 (06:23→22:41)
[2022-05-24] MEDS: LEVOTHYROXINE NA 150 MCG TABLET PO SCH (06:23)
[2022-05-24] MEDS: LIOTHYRONINE SODIUM 5 MCG TABLET PO SCH (11:22)
[2022-05-24] MEDS: NIFEdipine E.R. 90 MG TABLET PO SCH ×2 (11:22→17:25)
[2022-05-24] MEDS: SEVELAMER CARBONATE 800 MG TAB (FP) PO SCH (11:23)
[2022-05-24] MEDS: levETIRAcetam 500 MG TABLET (FP) PO SCH ×2 (11:23→21:25)
[2022-05-24] MEDS: THIAMINE HCL 100 MG TABLET (FP) PO SCH ×2 (11:24→21:26)
[2022-05-24] MEDS: LIDOCAINE 5% TOPICAL PATCH TP SCH (11:24)
[2022-05-24] MEDS: FUROSEMIDE 40 MG/4 ML INJECTABLE VIAL IVPUSH SCH ×2 (11:25→12:21)
[2022-05-24] MEDS: MOMETASONE FUROATE 220 MCG/IH INHALER IH SCH ×2 (11:42→21:25)
[2022-05-24 14:13] LABS: HEMATOCRIT 25.6 % (32.4-45.2); HEMOGLOBIN 8.4 GM/dL (10.7-15.3); MCH 31.2 pg (25.7-33.7); MCHC 32.9 g/dl (32.0-36.0); MEAN CELL VOLUME 94.8 fl (80-96); MEAN PLT VOLUME 6.6 fl (7.5-11.1); PLATELET COUNT 293 10^3/uL (134-434); RDW 17.1 % (11.6-15.6); WHITE BLOOD COUNT 5.9 K/mm3 (4.0-10.0)
[2022-05-24] MEDS ORDERED: EPOETIN ALFA-EPBX 10,000 UNIT/ML VIAL IVPUSH ONE (14:15)
[2022-05-24 14:37] LABS: CHLORIDE 94 mmol/L (98-107); SODIUM 133 mmol/L (136-145)
[2022-05-24 14:40] LABS: ALBUMIN 2.2 g/dl (3.4-5.0); ANION GAP 10 MMOL/L (8-16); BLOOD UREA NITROGEN 34.7 mg/dL (7-18); CO2 29 mmol/L (21-32); GLUCOSE,RANDOM 142 mg/dL (74-106); MAGNESIUM 1.8 mg/dL (1.8-2.4)
[2022-05-24 14:43] LABS: CREATININE 4.1 mg/dL (0.55-1.3); PHOSPHOROUS 3.9 mg/dL (2.5-4.9); SGOT/AST 38 U/L (15-37); SGPT/ALT 52 U/L (13-61)
[2022-05-24 14:45] LABS: BILIRUBIN,TOTAL 1.2 mg/dL (0.2-1); TOT PROT 6.6 g/dl (6.4-8.2)
[2022-05-24 14:46] LABS: ALK PHOS > 1000 U/L (45-117)
[2022-05-24] MEDS: traMADol HCL 50 MG TABLET PO PRN (18:59)
[2022-05-24] MEDS: LIDOCAINE PATCH REMOVAL MC SCH (21:37)
[2022-05-25] MEDS: hydrALAZINE HCL 50 MG TABLET (FP) PO SCH ×3 (06:13→22:11)
[2022-05-25] MEDS: LEVOTHYROXINE NA 150 MCG TABLET PO SCH (06:13)
[2022-05-25] MEDS: HEPARIN NA (PORCINE) 5,000 UNITS/ML 1ML VIAL SQ SCH ×2 (06:13→14:13)
[2022-05-25] MEDS: INSULIN SLIDING SCALE (NOVOLOG) 1 VIAL SQ SCH ×4 (06:16→23:37)
[2022-05-25] MEDS: traMADol HCL 50 MG TABLET PO PRN ×2 (06:22→22:24)
[2022-05-25] MEDS: MOMETASONE FUROATE 220 MCG/IH INHALER IH SCH ×2 (10:30→22:16)
[2022-05-25] MEDS: THIAMINE HCL 100 MG TABLET (FP) PO SCH ×2 (10:30→22:11)
[2022-05-25] MEDS: SEVELAMER CARBONATE 800 MG TAB (FP) PO SCH (10:31)
[2022-05-25] MEDS: LIDOCAINE 5% TOPICAL PATCH TP SCH (10:33)
[2022-05-25] MEDS: ALBUTEROL SO4 0.5 % INH SOLN 2.5 MG/0.5 ML VIAL.NEB. NEB PRN ×3 (10:45→20:44)
[2022-05-25 10:56] LABS: HEMATOCRIT 25.1 % (32.4-45.2); HEMOGLOBIN 8.2 GM/dL (10.7-15.3); MCH 31.4 pg (25.7-33.7); MCHC 32.7 g/dl (32.0-36.0); MEAN CELL VOLUME 95.9 fl (80-96); MEAN PLT VOLUME 6.7 fl (7.5-11.1); PLATELET COUNT 270 10^3/uL (134-434); RBC 2.62 M/mm3 (3.60-5.2); RDW 16.9 % (11.6-15.6); WHITE BLOOD COUNT 6.7 K/mm3 (4.0-10.0)
[2022-05-25 11:16] LABS: CHLORIDE 98 mmol/L (98-107); SODIUM 137 mmol/L (136-145)
[2022-05-25] MEDS: TORSEMIDE 20 MG TABLET (FP) PO SCH (11:22)
[2022-05-25 11:23] LABS: ANION GAP 9 MMOL/L (8-16); BLOOD UREA NITROGEN 27.9 mg/dL (7-18); CALCIUM 8.2 mg/dL (8.5-10.1); CO2 31 mmol/L (21-32); GLUCOSE,RANDOM 103 mg/dL (74-106)
[2022-05-25] MEDS: levETIRAcetam 500 MG TABLET (FP) PO SCH ×3 (11:23→22:11)
[2022-05-25 11:24] LABS: ALBUMIN 2.2 g/dl (3.4-5.0)
[2022-05-25] MEDS: NIFEdipine E.R. 90 MG TABLET PO SCH (11:24)
[2022-05-25 11:26] LABS: SGPT/ALT 43 U/L (13-61)
[2022-05-25 11:27] LABS: CREATININE 3.9 mg/dL (0.55-1.3); SGOT/AST 31 U/L (15-37)
[2022-05-25 11:28] LABS: BILIRUBIN,TOTAL 1.1 mg/dL (0.2-1); TOT PROT 6.5 g/dl (6.4-8.2)
[2022-05-25 11:37] LABS: ALK PHOS > 1000 U/L (45-117)
[2022-05-25] MEDS: LIOTHYRONINE SODIUM 5 MCG TABLET PO SCH (11:59)
[2022-05-25] MEDS ORDERED: SODIUM CHLORIDE 250 ML IV PRN (13:08)
[2022-05-25] MEDS: LIDOCAINE PATCH REMOVAL MC SCH (22:11)
[2022-05-26] MEDS: HEPARIN NA (PORCINE) 5,000 UNITS/ML 1ML VIAL SQ SCH (01:57)
[2022-05-26] MEDS: INSULIN SLIDING SCALE (NOVOLOG) 1 VIAL SQ SCH ×4 (06:25→23:02)
[2022-05-26] MEDS: hydrALAZINE HCL 50 MG TABLET (FP) PO SCH ×3 (06:25→23:00)
[2022-05-26] MEDS: LEVOTHYROXINE NA 150 MCG TABLET PO SCH (06:25)
[2022-05-26] MEDS: ALBUTEROL SO4 0.5 % INH SOLN 2.5 MG/0.5 ML VIAL.NEB. NEB PRN ×2 (08:00→15:00)
[2022-05-26] MEDS: LIOTHYRONINE SODIUM 5 MCG TABLET PO SCH (09:53)
[2022-05-26] MEDS: SEVELAMER CARBONATE 800 MG TAB (FP) PO SCH (09:53)
[2022-05-26] MEDS: THIAMINE HCL 100 MG TABLET (FP) PO SCH ×2 (09:53→21:48)
[2022-05-26] MEDS: NIFEdipine E.R. 90 MG TABLET PO SCH (09:53)
[2022-05-26] MEDS: LIDOCAINE 5% TOPICAL PATCH TP SCH (09:54)
[2022-05-26] MEDS: MOMETASONE FUROATE 220 MCG/IH INHALER IH SCH ×2 (09:55→21:49)
[2022-05-26] MEDS: TORSEMIDE 20 MG TABLET (FP) PO SCH (11:03)
[2022-05-26] MEDS: levETIRAcetam 500 MG TABLET (FP) PO SCH ×2 (11:04→21:49)
[2022-05-26 12:07] LABS: HEMATOCRIT 27.7 % (32.4-45.2); HEMOGLOBIN 8.9 GM/dL (10.7-15.3); MCH 31.1 pg (25.7-33.7); MCHC 32.3 g/dl (32.0-36.0); MEAN CELL VOLUME 96.4 fl (80-96); PLATELET COUNT 290 10^3/uL (134-434); RBC 2.87 M/mm3 (3.60-5.2); RDW 17.1 % (11.6-15.6); WHITE BLOOD COUNT 6.1 K/mm3 (4.0-10.0)
[2022-05-26 12:16] LABS: CHLORIDE 97 mmol/L (98-107); SODIUM 136 mmol/L (136-145)
[2022-05-26 12:20] LABS: ALBUMIN 2.5 g/dl (3.4-5.0); ANION GAP 9 MMOL/L (8-16); BLOOD UREA NITROGEN 31.8 mg/dL (7-18); CALCIUM 8.4 mg/dL (8.5-10.1); CO2 31 mmol/L (21-32); GLUCOSE,RANDOM 133 mg/dL (74-106)
[2022-05-26 12:23] LABS: CREATININE 4.5 mg/dL (0.55-1.3); SGOT/AST 32 U/L (15-37); SGPT/ALT 40 U/L (13-61)
[2022-05-26 12:25] LABS: BILIRUBIN,TOTAL 1.4 mg/dL (0.2-1)
[2022-05-26 12:27] LABS: ALK PHOS > 1000 U/L (45-117)
[2022-05-26] MEDS ORDERED: EPOETIN ALFA-EPBX 10,000 UNIT/ML VIAL SQ ONE (13:08)
[2022-05-26] MEDS: DOCUSATE SODIUM 100 MG CAPSULE (FP) PO SCH (21:48)
[2022-05-26] MEDS: POLYETHYLENE GLYCOL (HEALTHYLAX) 3350 17 GM PACKET PO SCH (21:48)
[2022-05-26] MEDS: SENNOSIDES 8.6MG TABLET (FP) PO SCH (21:48)
[2022-05-26] MEDS: LIDOCAINE PATCH REMOVAL MC SCH (21:50)
[2022-05-27] MEDS: hydrALAZINE HCL 50 MG TABLET (FP) PO SCH ×4 (01:13→21:45)
[2022-05-27] MEDS: ALBUTEROL SO4 0.5 % INH SOLN 2.5 MG/0.5 ML VIAL.NEB. NEB PRN (04:15)
[2022-05-27] MEDS: LEVOTHYROXINE NA 150 MCG TABLET PO SCH (06:53)
[2022-05-27] MEDS: INSULIN SLIDING SCALE (NOVOLOG) 1 VIAL SQ SCH ×4 (06:58→22:29)
[2022-05-27] MEDS: HEPARIN NA (PORCINE) 5,000 UNITS/ML 1ML VIAL SQ SCH ×3 (07:00→21:44)
[2022-05-27] MEDS: LIDOCAINE 5% TOPICAL PATCH TP SCH (11:22)
[2022-05-27] MEDS: NIFEdipine E.R. 90 MG TABLET PO SCH (11:23)
[2022-05-27] MEDS: SEVELAMER CARBONATE 800 MG TAB (FP) PO SCH (11:23)
[2022-05-27] MEDS: TORSEMIDE 20 MG TABLET (FP) PO SCH (11:23)
[2022-05-27] MEDS: POLYETHYLENE GLYCOL (HEALTHYLAX) 3350 17 GM PACKET PO SCH ×2 (11:23→21:44)
[2022-05-27] MEDS: THIAMINE HCL 100 MG TABLET (FP) PO SCH ×2 (11:23→21:45)
[2022-05-27] MEDS: levETIRAcetam 500 MG TABLET (FP) PO SCH ×2 (11:23→21:45)
[2022-05-27] MEDS: LIOTHYRONINE SODIUM 5 MCG TABLET PO SCH (11:24)
[2022-05-27] MEDS: MOMETASONE FUROATE 220 MCG/IH INHALER IH SCH ×2 (11:38→22:30)
[2022-05-27 12:31] LABS: HEMATOCRIT 26.6 % (32.4-45.2); HEMOGLOBIN 8.8 GM/dL (10.7-15.3); MCH 31.6 pg (25.7-33.7); MEAN CELL VOLUME 95.7 fl (80-96); MEAN PLT VOLUME 6.7 fl (7.5-11.1); PLATELET COUNT 254 10^3/uL (134-434); RBC 2.78 M/mm3 (3.60-5.2); RDW 16.9 % (11.6-15.6); WHITE BLOOD COUNT 7.7 K/mm3 (4.0-10.0)
[2022-05-27 13:04] LABS: ALBUMIN 2.4 g/dl (3.4-5.0); BLOOD UREA NITROGEN 21.7 mg/dL (7-18); MAGNESIUM 1.7 mg/dL (1.8-2.4)
[2022-05-27 13:07] LABS: CREATININE 3.7 mg/dL (0.55-1.3); PHOSPHOROUS 3.4 mg/dL (2.5-4.9)
[2022-05-27 13:08] LABS: TOT PROT 6.8 g/dl (6.4-8.2)
[2022-05-27 15:57] VITALS: BMI 50.6
[2022-05-27] MEDS: LIDOCAINE PATCH REMOVAL MC SCH (21:03)
[2022-05-27] MEDS: SENNOSIDES 8.6MG TABLET (FP) PO SCH (21:45)
[2022-05-27] MEDS: DOCUSATE SODIUM 100 MG CAPSULE (FP) PO SCH (21:45)
[2022-05-28] MEDS: traMADol HCL 50 MG TABLET PO PRN (04:35)
[2022-05-28] MEDS: LEVOTHYROXINE NA 150 MCG TABLET PO SCH (06:03)
[2022-05-28] MEDS: HEPARIN NA (PORCINE) 5,000 UNITS/ML 1ML VIAL SQ SCH ×2 (06:03→17:32)
[2022-05-28] MEDS: hydrALAZINE HCL 50 MG TABLET (FP) PO SCH ×4 (06:03→21:46)
[2022-05-28] MEDS: INSULIN SLIDING SCALE (NOVOLOG) 1 VIAL SQ SCH ×4 (06:04→21:38)
[2022-05-28] MEDS: ALBUTEROL SO4 0.5 % INH SOLN 2.5 MG/0.5 ML VIAL.NEB. NEB PRN ×3 (07:39→20:50)
[2022-05-28] MEDS: NIFEdipine E.R. 90 MG TABLET PO SCH (09:39)
[2022-05-28] MEDS: THIAMINE HCL 100 MG TABLET (FP) PO SCH ×2 (09:39→21:37)
[2022-05-28] MEDS: SEVELAMER CARBONATE 800 MG TAB (FP) PO SCH (09:39)
[2022-05-28] MEDS: LIOTHYRONINE SODIUM 5 MCG TABLET PO SCH (09:39)
[2022-05-28] MEDS: levETIRAcetam 500 MG TABLET (FP) PO SCH ×2 (09:39→21:37)
[2022-05-28] MEDS: MOMETASONE FUROATE 220 MCG/IH INHALER IH SCH ×2 (09:40→21:37)
[2022-05-28] MEDS: POLYETHYLENE GLYCOL (HEALTHYLAX) 3350 17 GM PACKET PO SCH ×2 (09:40→21:39)
[2022-05-28] MEDS: LIDOCAINE 5% TOPICAL PATCH TP SCH (09:40)
[2022-05-28] MEDS: TORSEMIDE 20 MG TABLET (FP) PO SCH (10:13)
[2022-05-28] MEDS ORDERED: LEVOTHYROXINE NA 25 MCG TABLET (FP) PO ONE (11:04)
[2022-05-28] MEDS ORDERED: SODIUM CHLORIDE 250 ML IV PRN (14:23)
[2022-05-28 14:38] LABS: HEMATOCRIT 27.2 % (32.4-45.2); HEMOGLOBIN 8.9 GM/dL (10.7-15.3); MCH 31.4 pg (25.7-33.7); MCHC 32.7 g/dl (32.0-36.0); MEAN CELL VOLUME 95.9 fl (80-96); MEAN PLT VOLUME 6.8 fl (7.5-11.1); PLATELET COUNT 264 10^3/uL (134-434); RBC 2.84 M/mm3 (3.60-5.2); RDW 17.5 % (11.6-15.6); WHITE BLOOD COUNT 7.3 K/mm3 (4.0-10.0)
[2022-05-28 14:52] LABS: BLOOD UREA NITROGEN 24.7 mg/dL (7-18); CALCIUM 8.3 mg/dL (8.5-10.1)
[2022-05-28 14:56] LABS: CREATININE 4.2 mg/dL (0.55-1.3)
[2022-05-28] MEDS ORDERED: EPOETIN ALFA-EPBX 10,000 UNIT/ML VIAL IVPUSH ONE (15:00)
[2022-05-28] MEDS: DOCUSATE SODIUM 100 MG CAPSULE (FP) PO SCH (21:36)
[2022-05-28] MEDS: SENNOSIDES 8.6MG TABLET (FP) PO SCH (21:38)
[2022-05-28] MEDS: LIDOCAINE PATCH REMOVAL MC SCH (21:39)
[2022-05-29] MEDS: hydrALAZINE HCL 50 MG TABLET (FP) PO SCH ×3 (06:02→22:21)
[2022-05-29] MEDS: LEVOTHYROXINE NA 150 MCG TABLET PO SCH (06:03)
[2022-05-29] MEDS: LEVOTHYROXINE NA 25 MCG TABLET (FP) PO SCH (06:03)
[2022-05-29] MEDS: INSULIN SLIDING SCALE (NOVOLOG) 1 VIAL SQ SCH ×5 (06:03→22:31)
[2022-05-29] MEDS: levETIRAcetam 250 MG TABLET PO SCH ×2 (11:57→22:20)
[2022-05-29] MEDS: SEVELAMER CARBONATE 800 MG TAB (FP) PO SCH (11:57)
[2022-05-29] MEDS: levETIRAcetam 500 MG TABLET (FP) PO SCH (11:58)
[2022-05-29] MEDS: NIFEdipine E.R. 90 MG TABLET PO SCH (11:58)
[2022-05-29] MEDS: traMADol HCL 50 MG TABLET PO PRN (11:58)
[2022-05-29] MEDS: LIOTHYRONINE SODIUM 5 MCG TABLET PO SCH (11:59)
[2022-05-29] MEDS: POLYETHYLENE GLYCOL (HEALTHYLAX) 3350 17 GM PACKET PO SCH ×2 (11:59→22:21)
[2022-05-29] MEDS: TORSEMIDE 20 MG TABLET (FP) PO SCH (11:59)
[2022-05-29] MEDS: THIAMINE HCL 100 MG TABLET (FP) PO SCH ×2 (11:59→22:20)
[2022-05-29] MEDS: MOMETASONE FUROATE 220 MCG/IH INHALER IH SCH ×2 (12:00→22:21)
[2022-05-29] MEDS: LIDOCAINE 5% TOPICAL PATCH TP SCH (12:01)
[2022-05-29] MEDS: ALBUTEROL SO4 0.5 % INH SOLN 2.5 MG/0.5 ML VIAL.NEB. NEB PRN ×2 (17:24→22:03)
[2022-05-29] MEDS: DOCUSATE SODIUM 100 MG CAPSULE (FP) PO SCH (22:21)
[2022-05-29] MEDS: SENNOSIDES 8.6MG TABLET (FP) PO SCH (22:21)
[2022-05-29] MEDS: LIDOCAINE PATCH REMOVAL MC SCH (22:22)
[2022-05-30] MEDS: LEVOTHYROXINE NA 25 MCG TABLET (FP) PO SCH (06:47)
[2022-05-30] MEDS: LEVOTHYROXINE NA 150 MCG TABLET PO SCH (06:47)
[2022-05-30] MEDS: INSULIN SLIDING SCALE (NOVOLOG) 1 VIAL SQ SCH ×4 (06:47→21:32)
[2022-05-30] MEDS: hydrALAZINE HCL 50 MG TABLET (FP) PO SCH ×3 (06:47→21:25)
[2022-05-30] MEDS: traMADol HCL 50 MG TABLET PO PRN (07:57)
[2022-05-30] MEDS: ALBUTEROL SO4 0.5 % INH SOLN 2.5 MG/0.5 ML VIAL.NEB. NEB PRN (09:01)
[2022-05-30] MEDS: LIDOCAINE 5% TOPICAL PATCH TP SCH (10:29)
[2022-05-30] MEDS: NIFEdipine E.R. 90 MG TABLET PO SCH (10:29)
[2022-05-30] MEDS: LIOTHYRONINE SODIUM 5 MCG TABLET PO SCH (10:29)
[2022-05-30] MEDS: levETIRAcetam 250 MG TABLET PO SCH ×2 (10:29→21:26)
[2022-05-30] MEDS: POLYETHYLENE GLYCOL (HEALTHYLAX) 3350 17 GM PACKET PO SCH ×2 (10:29→21:26)
[2022-05-30] MEDS: SEVELAMER CARBONATE 800 MG TAB (FP) PO SCH (10:29)
[2022-05-30] MEDS: THIAMINE HCL 100 MG TABLET (FP) PO SCH ×2 (10:29→21:27)
[2022-05-30] MEDS: TORSEMIDE 20 MG TABLET (FP) PO SCH (10:31)
[2022-05-30] MEDS: MOMETASONE FUROATE 220 MCG/IH INHALER IH SCH ×2 (10:32→21:25)
[2022-05-30] MEDS ORDERED: SODIUM CHLORIDE 250 ML IV PRN (13:38)
[2022-05-30] MEDS: DOCUSATE SODIUM 100 MG CAPSULE (FP) PO SCH (21:25)
[2022-05-30] MEDS: SENNOSIDES 8.6MG TABLET (FP) PO SCH (21:27)
[2022-05-30] MEDS: LIDOCAINE PATCH REMOVAL MC SCH (21:27)
[2022-05-30] MEDS ORDERED: LEVOTHYROXINE NA 150 MCG TABLET PO SCH (21:54)
[2022-05-30] MEDS ORDERED: LIOTHYRONINE SODIUM 5 MCG TABLET PO SCH (21:55)
[2022-05-31] MEDS: ALBUTEROL SO4 0.5 % INH SOLN 2.5 MG/0.5 ML VIAL.NEB. NEB PRN ×2 (04:13→22:31)
[2022-05-31] MEDS: LIOTHYRONINE SODIUM 25 MCG TABLET PO SCH (06:06)
[2022-05-31] MEDS: hydrALAZINE HCL 50 MG TABLET (FP) PO SCH ×3 (06:06→21:19)
[2022-05-31] MEDS: INSULIN SLIDING SCALE (NOVOLOG) 1 VIAL SQ SCH ×4 (06:06→21:18)
[2022-05-31] MEDS: LEVOTHYROXINE SODIUM 100 MCG VIAL IVPUSH SCH (06:06)
[2022-05-31] MEDS ORDERED: EPOETIN ALFA-EPBX 10,000 UNIT/ML VIAL IVPUSH ONE (09:00)
[2022-05-31 09:36] LABS: HEMATOCRIT 27.2 % (32.4-45.2); HEMOGLOBIN 8.8 GM/dL (10.7-15.3); MCH 31.5 pg (25.7-33.7); MCHC 32.4 g/dl (32.0-36.0); MEAN CELL VOLUME 97.1 fl (80-96); PLATELET COUNT 273 10^3/uL (134-434); RDW 18.1 % (11.6-15.6); WHITE BLOOD COUNT 7.1 K/mm3 (4.0-10.0)
[2022-05-31 09:56] LABS: CALCIUM 8.3 mg/dL (8.5-10.1)
[2022-05-31 09:57] LABS: ALBUMIN 2.3 g/dl (3.4-5.0); BLOOD UREA NITROGEN 25.2 mg/dL (7-18); MAGNESIUM 1.9 mg/dL (1.8-2.4)
[2022-05-31 10:00] LABS: CREATININE 4.4 mg/dL (0.55-1.3); PHOSPHOROUS 4.2 mg/dL (2.5-4.9)
[2022-05-31 10:01] LABS: BILIRUBIN,TOTAL 0.8 mg/dL (0.2-1); TOT PROT 6.6 g/dl (6.4-8.2)
[2022-05-31] MEDS: LIDOCAINE 5% TOPICAL PATCH TP SCH (13:05)
[2022-05-31] MEDS: levETIRAcetam 250 MG TABLET PO SCH ×2 (13:05→21:19)
[2022-05-31] MEDS: NIFEdipine E.R. 90 MG TABLET PO SCH (13:06)
[2022-05-31] MEDS: POLYETHYLENE GLYCOL (HEALTHYLAX) 3350 17 GM PACKET PO SCH ×2 (13:06→21:19)
[2022-05-31] MEDS: SEVELAMER CARBONATE 800 MG TAB (FP) PO SCH (13:06)
[2022-05-31] MEDS: TORSEMIDE 20 MG TABLET (FP) PO SCH (13:06)
[2022-05-31] MEDS: THIAMINE HCL 100 MG TABLET (FP) PO SCH ×2 (13:06→21:19)
[2022-05-31] MEDS: MOMETASONE FUROATE 220 MCG/IH INHALER IH SCH ×2 (13:07→23:15)
[2022-05-31] MEDS ORDERED: traMADol HCL 50 MG TABLET PO PRN (20:15)
[2022-05-31] MEDS: SENNOSIDES 8.6MG TABLET (FP) PO SCH (21:19)
[2022-05-31] MEDS: DOCUSATE SODIUM 100 MG CAPSULE (FP) PO SCH (21:19)
[2022-05-31] MEDS: LIDOCAINE PATCH REMOVAL MC SCH (23:16)
[2022-06-01] MEDS: INSULIN SLIDING SCALE (NOVOLOG) 1 VIAL SQ SCH ×4 (06:09→21:55)
[2022-06-01] MEDS: hydrALAZINE HCL 50 MG TABLET (FP) PO SCH ×3 (06:11→21:54)
[2022-06-01] MEDS: LIOTHYRONINE SODIUM 25 MCG TABLET PO SCH (07:06)
[2022-06-01 10:02] LABS: HEMATOCRIT 29.5 % (32.4-45.2); HEMOGLOBIN 9.2 GM/dL (10.7-15.3); MCH 30.3 pg (25.7-33.7); MCHC 31.3 g/dl (32.0-36.0); MEAN CELL VOLUME 96.8 fl (80-96); MEAN PLT VOLUME 7.4 fl (7.5-11.1); PLATELET COUNT 287 10^3/uL (134-434); RBC 3.04 M/mm3 (3.60-5.2); RDW 18.5 % (11.6-15.6); WHITE BLOOD COUNT 6.5 K/mm3 (4.0-10.0)
[2022-06-01 10:29] LABS: BLOOD UREA NITROGEN 18.6 mg/dL (7-18); CALCIUM 8.8 mg/dL (8.5-10.1); MAGNESIUM 1.9 mg/dL (1.8-2.4)
[2022-06-01 10:31] LABS: ALBUMIN 2.5 g/dl (3.4-5.0)
[2022-06-01 10:32] LABS: CREATININE 3.6 mg/dL (0.55-1.3); PHOSPHOROUS 3.4 mg/dL (2.5-4.9)
[2022-06-01 10:34] LABS: BILIRUBIN,TOTAL 0.9 mg/dL (0.2-1); TOT PROT 6.6 g/dl (6.4-8.2)
[2022-06-01] MEDS: POLYETHYLENE GLYCOL (HEALTHYLAX) 3350 17 GM PACKET PO SCH ×2 (12:17→21:55)
[2022-06-01] MEDS: THIAMINE HCL 100 MG TABLET (FP) PO SCH ×2 (12:18→21:54)
[2022-06-01] MEDS: NIFEdipine E.R. 90 MG TABLET PO SCH (12:18)
[2022-06-01] MEDS: SEVELAMER CARBONATE 800 MG TAB (FP) PO SCH (12:18)
[2022-06-01] MEDS: levETIRAcetam 250 MG TABLET PO SCH ×2 (12:18→21:55)
[2022-06-01] MEDS: MOMETASONE FUROATE 220 MCG/IH INHALER IH SCH ×2 (12:20→21:55)
[2022-06-01] MEDS: TORSEMIDE 20 MG TABLET (FP) PO SCH (12:20)
[2022-06-01] MEDS: LIDOCAINE 5% TOPICAL PATCH TP SCH (12:21)
[2022-06-01] MEDS: LEVOTHYROXINE SODIUM 100 MCG VIAL IVPUSH SCH (12:27)
[2022-06-01] MEDS: SENNOSIDES 8.6MG TABLET (FP) PO SCH (21:54)
[2022-06-01] MEDS: DOCUSATE SODIUM 100 MG CAPSULE (FP) PO SCH (21:54)
[2022-06-01] MEDS: LIDOCAINE PATCH REMOVAL MC SCH (21:56)
[2022-06-02] MEDS ORDERED: LEVOTHYROXINE NA 200 MCG TABLET PO SCH ×2 (07:00→12:28)
[2022-06-02] MEDS: INSULIN SLIDING SCALE (NOVOLOG) 1 VIAL SQ SCH ×3 (07:02→16:46)
[2022-06-02] MEDS: LIOTHYRONINE SODIUM 25 MCG TABLET PO SCH (07:02)
[2022-06-02] MEDS ORDERED: EPOETIN ALFA-EPBX 10,000 UNIT/ML VIAL IVPUSH ONE (08:00)
[2022-06-02] MEDS ORDERED: SODIUM CHLORIDE 250 ML IV PRN (08:00)
[2022-06-02 09:26] LABS: HEMATOCRIT 27.4 % (32.4-45.2); HEMOGLOBIN 8.5 GM/dL (10.7-15.3); MCH 30.4 pg (25.7-33.7); MEAN PLT VOLUME 7.5 fl (7.5-11.1); PLATELET COUNT 278 10^3/uL (134-434); RDW 18.5 % (11.6-15.6); WHITE BLOOD COUNT 6.8 K/mm3 (4.0-10.0)
[2022-06-02 09:54] LABS: ALBUMIN 2.3 g/dl (3.4-5.0); BLOOD UREA NITROGEN 22.4 mg/dL (7-18); CALCIUM 8.5 mg/dL (8.5-10.1); MAGNESIUM 2.1 mg/dL (1.8-2.4)
[2022-06-02 09:57] LABS: CREATININE 4.1 mg/dL (0.55-1.3); PHOSPHOROUS 3.9 mg/dL (2.5-4.9)
[2022-06-02 09:59] LABS: BILIRUBIN,TOTAL 0.8 mg/dL (0.2-1); TOT PROT 6.6 g/dl (6.4-8.2)
[2022-06-02] MEDS: hydrALAZINE HCL 50 MG TABLET (FP) PO SCH ×2 (12:10→14:51)
[2022-06-02] MEDS: levETIRAcetam 250 MG TABLET PO SCH (12:14)
[2022-06-02] MEDS: NIFEdipine E.R. 90 MG TABLET PO SCH (12:14)
[2022-06-02] MEDS: SEVELAMER CARBONATE 800 MG TAB (FP) PO SCH (12:14)
[2022-06-02] MEDS: THIAMINE HCL 100 MG TABLET (FP) PO SCH (12:14)
[2022-06-02] MEDS: TORSEMIDE 20 MG TABLET (FP) PO SCH (12:15)
[2022-06-02] MEDS: LIDOCAINE 5% TOPICAL PATCH TP SCH (12:15)
[2022-06-02] MEDS: POLYETHYLENE GLYCOL (HEALTHYLAX) 3350 17 GM PACKET PO SCH (12:15)
[2022-06-02] MEDS: MOMETASONE FUROATE 220 MCG/IH INHALER IH SCH (12:17)
[2022-06-02] MEDS: ALBUTEROL SO4 0.5 % INH SOLN 2.5 MG/0.5 ML VIAL.NEB. NEB PRN ×2 (13:12→18:26)
[2022-06-02 21:24] VITALS: BP 158/78; PULSE 92; RESP 20; TEMP 97.5
== END 2022-06-02 21:33 | DRG 425 ==
LOC: JER 04:58 → JERBED 08:18 → J5S 13:42
PROVIDERS: ADMIT Internal Medicine
PROC: 5A1D70Z Performance of Urinary Filtration, Intermittent, Less than 6 Hours Per Day (ICD-10-PCS; principal; 2022-05-20)
PROC: 5A1D70Z Performance of Urinary Filtration, Intermittent, Less than 6 Hours Per Day (ICD-10-PCS; 2022-05-21)
PROC: 5A1D70Z Performance of Urinary Filtration, Intermittent, Less than 6 Hours Per Day (ICD-10-PCS; 2022-05-24)
PROC: 5A1D70Z Performance of Urinary Filtration, Intermittent, Less than 6 Hours Per Day (ICD-10-PCS; 2022-05-26)
PROC: 5A1D70Z Performance of Urinary Filtration, Intermittent, Less than 6 Hours Per Day (ICD-10-PCS; 2022-05-28)
PROC: 5A1D70Z Performance of Urinary Filtration, Intermittent, Less than 6 Hours Per Day (ICD-10-PCS; 2022-05-31)
PROC: 5A1D70Z Performance of Urinary Filtration, Intermittent, Less than 6 Hours Per Day (ICD-10-PCS; 2022-06-02)
DX: E87.70 Fluid overload, unspecified (principal); E78.5 Hyperlipidemia, unspecified; J44.9 Chronic obstructive pulmonary disease, unspecified; E03.9 Hypothyroidism, unspecified; D64.9 Anemia, unspecified; B19.10 Unspecified viral hepatitis B without hepatic coma; L03.115 Cellulitis of right lower limb; R79.89 Other specified abnormal findings of blood chemistry; F20.89 Other schizophrenia; F17.210 Nicotine dependence, cigarettes, uncomplicated; G89.29 Other chronic pain; F41.8 Other specified anxiety disorders; I12.0 Hypertensive chronic kidney disease with stage 5 chronic kidney disease or end stage renal disease; E11.22 Type 2 diabetes mellitus with diabetic chronic kidney disease; N18.6 End stage renal disease; E66.01 Morbid (severe) obesity due to excess calories; Z68.42 Body mass index [BMI] 45.0-49.9, adult; Z99.2 Dependence on renal dialysis; Z85.850 Personal history of malignant neoplasm of thyroid
CPT/HCPCS: 36415; 70450-TC; 71045-TC-FY; 72100-TC-FY; 73552-TC-RT-FY; 73590-TC-RT-FY; 73610-TC-RT-FY; 76705-TC; 80048; 80053; 81003; 82962; 82977; 83735; 83880; 84080; 84100; 84132; 84439; 84443; 84481; 84484; 85025; 85027; 86803; 87086; 87340; 93005; 93010; 93971-TC; 94640; 97116-GP; 99285-25; C9803-CS; G0480; J1644; Q5106; U0003; U0005

== ENCOUNTER 2022-06-05 23:10 | Inpatient (IN) | payer OTHER ==
[2022-06-05] MEDS ORDERED: SODIUM CHLORIDE 3,402 ML IV ONE (23:23)
[2022-06-05 23:44] LABS: VENOUS BASE EXCESS 2.6 mmol/L (-2-2); VENOUS O2 SATURATION 63.7 % (70-80); VENOUS PH 7.204 (7.310-7.410)
[2022-06-05 23:46] LABS: BASO % 0.2 % (0-2.0); HEMOGLOBIN 9.3 GM/dL (10.7-15.3); LYMPH % 17.3 % (8-40); MCH 31.4 pg (25.7-33.7); MCHC 32.1 g/dl (32.0-36.0); MEAN CELL VOLUME 97.6 fl (80-96); MEAN PLT VOLUME 7.3 fl (7.5-11.1); MONO % 4.7 % (3.8-10.2); NEUT % 77.8 % (42.8-82.8); PLATELET COUNT 268 10^3/uL (134-434); RBC 2.97 M/mm3 (3.60-5.2); VENOUS PCO2 83.2 mmHg (38-52); WHITE BLOOD COUNT 7.7 K/mm3 (4.0-10.0)
[2022-06-05 23:54] LABS: INR 1.06 (0.83-1.09); PROTHROMBIN TIME (PATIENT) 12.2 SEC (9.7-13.0)
[2022-06-05 23:56] LABS: ACTIVATED PTT 39.5 SECONDS (25.2-36.5)
[2022-06-05] MEDS ORDERED: ALBUTEROL SO4 2.5/IPRATROPIUM 0.5 INH SOL 3 ML VIAL.NEB. NEB ONE (23:56)
[2022-06-06] MEDS ORDERED: NALOXONE HCL 0.4 MG/ML VIAL IVPUSH ONE (00:15)
[2022-06-06 00:36] LABS: ALBUMIN 2.7 g/dl (3.4-5.0); BLOOD UREA NITROGEN 24.9 mg/dL (7-18); CALCIUM 8.3 mg/dL (8.5-10.1)
[2022-06-06 00:39] LABS: CREATININE 4.9 mg/dL (0.55-1.3)
[2022-06-06 00:41] LABS: BILIRUBIN,TOTAL 0.8 mg/dL (0.2-1); TOT PROT 7.6 g/dl (6.4-8.2)
[2022-06-06] MEDS ORDERED: NALOXONE HCL 0.4 MG/ML VIAL ONE (00:53)
[2022-06-06 00:58] LABS: VENOUS BASE EXCESS 2.3 mmol/L (-2-2)
[2022-06-06 01:01] LABS: VENOUS PCO2 93.1 mmHg (38-52); VENOUS PH 7.162 (7.310-7.410)
[2022-06-06] MEDS ORDERED: SUCCINYLCHOLINE CHLORIDE 200 MG/10 ML VIAL IVPUSH ONE (01:04)
[2022-06-06] MEDS ORDERED: ETOMIDATE 40 MG/20 ML VIAL IVPUSH ONE (01:04)
[2022-06-06] MEDS ORDERED: ETOMIDATE 20 MG/10 ML AMPUL IVPUSH ONE (01:09)
[2022-06-06] MEDS ORDERED: SUCCINYLCHOLINE CHLORIDE 200 MG/10 ML VIAL ONE (01:10)
[2022-06-06] MEDS ORDERED: MIDAZOLAM IN 0.9 % SOD.CHLORID 100 MG/100 ML PLAST..BAG IVPB SCH (01:15)
[2022-06-06] MEDS ORDERED: MIDAZOLAM IN 0.9 % SOD.CHLORID 1 MG/1 ML PLAST..BAG ONE (01:45)
[2022-06-06 02:59] LABS: EPI CELLS 31 /uL (0-25.1); HYALINE CASTS 2 /uL (0-3.1); URINE APPEARANCE TURBID; URINE BACTERIA 1914 /uL (0-1359); URINE BILIRUBIN NEGATIVE (NEGATIVE); URINE COLOR DK YELLOW; URINE GLUCOSE (UA) 1+ (NEGATIVE); URINE KETONE NEGATIVE (NEGATIVE); URINE LEUK ESTERASE 2+ (NEGATIVE); URINE NITRITE NEGATIVE (NEGATIVE); URINE PROTEIN 4+ (NEGATIVE); URINE RBC 51 /uL (0-23.9); URINE UROBILINOGEN 0.2 mg/dL (0.2-1.0); URINE WBC 3924 /uL (0-25.8)
[2022-06-06] MEDS: FENTANYL NS IVPB 500 MCG/100 ML BAG IVPB SCH (05:52)
[2022-06-06 06:36] LABS: ARTERIAL BLD GAS O2 SATURATION 98.3 % (95-98); ARTERIAL BLOOD GAS BASE EXCESS 3.8 mmol/L (-2-2); ARTERIAL BLOOD GAS PO2 128.3 mmHg (80-100); ARTERIAL BLOOD GAS pH 7.325 (7.350-7.450)
[2022-06-06 06:39] LABS: ALLENS TEST POSITIVE; VENT MODE A/C
[2022-06-06 06:40] LABS: VENT RATE 16
[2022-06-06] MEDS ORDERED: LIOTHYRONINE SODIUM 5 MCG TABLET PO SCH (07:00)
[2022-06-06] MEDS: ALBUTEROL SO4 0.083% IH SOL 2.5 MG/3 ML VIAL.NEB. NEB SCH ×4 (07:42→20:01)
[2022-06-06] MEDS ORDERED: LEVOTHYROXINE SODIUM 100 MCG VIAL IVPUSH SCH (10:00)
[2022-06-06] MEDS ORDERED: levETIRAcetam 500 MG TABLET (FP) PO SCH (10:00)
[2022-06-06] MEDS ORDERED: SODIUM CHLORIDE 250 ML IV PRN (10:00)
[2022-06-06] MEDS ORDERED: EPOETIN ALFA-EPBX 10,000 UNIT/ML VIAL SQ ONE (10:00)
[2022-06-06 11:23] LABS: CALCIUM 8.4 mg/dL (8.5-10.1)
[2022-06-06 11:24] LABS: BLOOD UREA NITROGEN 24.6 mg/dL (7-18); MAGNESIUM 2.1 mg/dL (1.8-2.4)
[2022-06-06 11:27] LABS: CREATININE 4.9 mg/dL (0.55-1.3); PHOSPHOROUS 5.1 mg/dL (2.5-4.9)
[2022-06-06] MEDS: NIFEdipine E.R. 90 MG TABLET PO SCH (13:18)
[2022-06-06] MEDS: levETIRAcetam 500 MG/5 ML INJECTION VIAL IVPB SCH ×2 (15:07→21:39)
[2022-06-06] MEDS: HEPARIN NA (PORCINE) 5,000 UNITS/ML 1ML VIAL SQ SCH ×2 (16:29→21:39)
[2022-06-06] MEDS: INSULIN SLIDING SCALE (NOVOLOG) 1 VIAL SQ SCH ×2 (16:45→22:29)
[2022-06-06] MEDS: DEXTROSE 50%-WATER 25 GM/50 ML DISP.SYRIN IVPUSH PRN (22:29)
[2022-06-07] MEDS: FENTANYL NS IVPB 500 MCG/100 ML BAG IVPB SCH (05:30)
[2022-06-07] MEDS: HEPARIN NA (PORCINE) 5,000 UNITS/ML 1ML VIAL SQ SCH ×3 (06:55→21:09)
[2022-06-07 07:03] LABS: BASO % 0.4 % (0-2.0); HEMATOCRIT 29.1 % (32.4-45.2); HEMOGLOBIN 9.1 GM/dL (10.7-15.3); LYMPH % 31.2 % (8-40); MCH 30.1 pg (25.7-33.7); MCHC 31.4 g/dl (32.0-36.0); MEAN CELL VOLUME 95.8 fl (80-96); MEAN PLT VOLUME 7.9 fl (7.5-11.1); NEUT % 59.4 % (42.8-82.8); PLATELET COUNT 245 10^3/uL (134-434); RBC 3.03 M/mm3 (3.60-5.2); RDW 18.7 % (11.6-15.6); WHITE BLOOD COUNT 6.8 K/mm3 (4.0-10.0)
[2022-06-07] MEDS: LIOTHYRONINE SODIUM 25 MCG TABLET PO SCH (07:07)
[2022-06-07] MEDS: INSULIN SLIDING SCALE (NOVOLOG) 1 VIAL SQ SCH ×4 (07:08→21:10)
[2022-06-07] MEDS: DEXTROSE 50%-WATER 25 GM/50 ML DISP.SYRIN IVPUSH PRN (07:08)
[2022-06-07] MEDS ORDERED: SODIUM CHLORIDE 250 ML IV PRN (07:13)
[2022-06-07] MEDS ORDERED: DEXTROSE 5%-NORMAL SALINE 1,000 ML IV SCH (07:15)
[2022-06-07 07:18] LABS: BLOOD UREA NITROGEN 16.3 mg/dL (7-18); CALCIUM 7.7 mg/dL (8.5-10.1); MAGNESIUM 1.7 mg/dL (1.8-2.4)
[2022-06-07 07:21] LABS: CREATININE 3.7 mg/dL (0.55-1.3); PHOSPHOROUS 2.7 mg/dL (2.5-4.9)
[2022-06-07 07:23] LABS: BILIRUBIN,TOTAL 0.7 mg/dL (0.2-1); TOT PROT 5.6 g/dl (6.4-8.2)
[2022-06-07 07:27] LABS: ALBUMIN 1.9 g/dl (3.4-5.0)
[2022-06-07] MEDS ORDERED: DEXTROSE 10%-WATER - 1,000 ML IV SCH ×2 (07:45→17:45)
[2022-06-07] MEDS ORDERED: MAGNESIUM SULF 50% (8.12 MEQ/2 ML-1 GM VIAL) IVPB ONE (08:15)
[2022-06-07] MEDS: ALBUTEROL SO4 0.083% IH SOL 2.5 MG/3 ML VIAL.NEB. NEB SCH ×4 (08:20→20:20)
[2022-06-07] MEDS ORDERED: EPOETIN ALFA-EPBX 4,000 UNIT/ML VIAL IVPUSH ONE (09:00)
[2022-06-07] MEDS: NIFEdipine E.R. 90 MG TABLET PO SCH (13:38)
[2022-06-07] MEDS: LEVOTHYROXINE SODIUM 100 MCG VIAL IVPUSH SCH (13:38)
[2022-06-07] MEDS: levETIRAcetam 500 MG/5 ML INJECTION VIAL IVPB SCH ×2 (13:38→21:10)
[2022-06-07] MEDS ORDERED: MAGNESIUM SULF 50% (8.12 MEQ/2 ML-1 GM VIAL) ONE (13:53)
[2022-06-08] MEDS: HEPARIN NA (PORCINE) 5,000 UNITS/ML 1ML VIAL SQ SCH ×3 (06:06→21:49)
[2022-06-08] MEDS: INSULIN SLIDING SCALE (NOVOLOG) 1 VIAL SQ SCH ×4 (06:34→21:49)
[2022-06-08 06:44] LABS: BASO % 0.4 % (0-2.0); HEMATOCRIT 29.4 % (32.4-45.2); HEMOGLOBIN 9.3 GM/dL (10.7-15.3); LYMPH % 31.9 % (8-40); MCH 30.1 pg (25.7-33.7); MCHC 31.5 g/dl (32.0-36.0); MEAN CELL VOLUME 95.6 fl (80-96); MEAN PLT VOLUME 8.2 fl (7.5-11.1); MONO % 9.4 % (3.8-10.2); NEUT % 58.3 % (42.8-82.8); PLATELET COUNT 261 10^3/uL (134-434); RBC 3.08 M/mm3 (3.60-5.2); RDW 17.7 % (11.6-15.6); WHITE BLOOD COUNT 8.1 K/mm3 (4.0-10.0)
[2022-06-08 06:54] LABS: CALCIUM 8.1 mg/dL (8.5-10.1)
[2022-06-08 06:55] LABS: BLOOD UREA NITROGEN 10.9 mg/dL (7-18)
[2022-06-08 06:58] LABS: CREATININE 3.1 mg/dL (0.55-1.3); PHOSPHOROUS 3.1 mg/dL (2.5-4.9)
[2022-06-08 06:59] LABS: TOT PROT 5.9 g/dl (6.4-8.2)
[2022-06-08 07:00] LABS: BILIRUBIN,TOTAL 0.7 mg/dL (0.2-1)
[2022-06-08] MEDS: LIOTHYRONINE SODIUM 25 MCG TABLET PO SCH (07:00)
[2022-06-08] MEDS: ALBUTEROL SO4 0.083% IH SOL 2.5 MG/3 ML VIAL.NEB. NEB SCH (08:14)
[2022-06-08] MEDS ORDERED: TORSEMIDE 20 MG TABLET (FP) PO SCH (10:00)
[2022-06-08] MEDS: NIFEdipine E.R. 90 MG TABLET PO SCH (10:46)
[2022-06-08] MEDS: levETIRAcetam 500 MG/5 ML INJECTION VIAL IVPB SCH ×2 (11:46→21:49)
[2022-06-08] MEDS: DEXTROSE 50%-WATER 25 GM/50 ML DISP.SYRIN IVPUSH PRN (12:00)
[2022-06-08] MEDS: LEVOTHYROXINE SODIUM 100 MCG VIAL IVPUSH SCH (12:46)
[2022-06-08] MEDS ORDERED: DEXTROSE 50%-WATER 25 GM/50 ML DISP.SYRIN ONE (12:57)
[2022-06-08 14:39] VITALS: BMI 44.1
[2022-06-08] MEDS ORDERED: SODIUM CHLORIDE 250 ML IV PRN (16:07)
[2022-06-08] MEDS: ALBUTEROL SO4 0.083% IH SOL 2.5 MG/3 ML VIAL.NEB. NEB PRN (20:30)
[2022-06-08] MEDS: NYSTATIN 100,000 UNIT/GM TOPICAL CREAM 15 GM TUBE TP SCH (23:02)
[2022-06-09] MEDS: LIOTHYRONINE SODIUM 25 MCG TABLET PO SCH (06:04)
[2022-06-09] MEDS: INSULIN SLIDING SCALE (NOVOLOG) 1 VIAL SQ SCH ×4 (06:04→22:28)
[2022-06-09] MEDS: HEPARIN NA (PORCINE) 5,000 UNITS/ML 1ML VIAL SQ SCH ×3 (06:04→22:25)
[2022-06-09] MEDS: NYSTATIN 100,000 UNIT/GM TOPICAL CREAM 15 GM TUBE TP SCH ×4 (06:04→23:38)
[2022-06-09 08:10] LABS: BASO % 0.2 % (0-2.0); HEMATOCRIT 28.4 % (32.4-45.2); HEMOGLOBIN 8.9 GM/dL (10.7-15.3); LYMPH % 35.8 % (8-40); MCH 29.9 pg (25.7-33.7); MCHC 31.5 g/dl (32.0-36.0); MEAN CELL VOLUME 95.2 fl (80-96); MEAN PLT VOLUME 7.9 fl (7.5-11.1); MONO % 7.2 % (3.8-10.2); NEUT % 56.8 % (42.8-82.8); PLATELET COUNT 261 10^3/uL (134-434); RBC 2.99 M/mm3 (3.60-5.2); RDW 17.5 % (11.6-15.6)
[2022-06-09 08:49] LABS: CALCIUM 8.3 mg/dL (8.5-10.1)
[2022-06-09 08:50] LABS: ALBUMIN 2.2 g/dl (3.4-5.0); BLOOD UREA NITROGEN 17.3 mg/dL (7-18); MAGNESIUM 1.9 mg/dL (1.8-2.4)
[2022-06-09 08:53] LABS: CREATININE 3.7 mg/dL (0.55-1.3); PHOSPHOROUS 3.7 mg/dL (2.5-4.9)
[2022-06-09 08:55] LABS: BILIRUBIN,TOTAL 0.7 mg/dL (0.2-1); TOT PROT 6.6 g/dl (6.4-8.2)
[2022-06-09] MEDS ORDERED: EPOETIN ALFA-EPBX 4,000 UNIT/ML VIAL IVPUSH ONE (09:00)
[2022-06-09] MEDS: LEVOTHYROXINE SODIUM 100 MCG VIAL IVPUSH SCH (11:20)
[2022-06-09] MEDS: NIFEdipine E.R. 90 MG TABLET PO SCH (11:20)
[2022-06-09] MEDS: TORSEMIDE 20 MG TABLET (FP) PO SCH (11:20)
[2022-06-09] MEDS: levETIRAcetam 500 MG/5 ML INJECTION VIAL IVPB SCH ×2 (11:30→22:28)
[2022-06-09] MEDS: ALBUTEROL SO4 0.083% IH SOL 2.5 MG/3 ML VIAL.NEB. NEB PRN ×2 (16:54→22:34)
[2022-06-10] MEDS: HEPARIN NA (PORCINE) 5,000 UNITS/ML 1ML VIAL SQ SCH ×3 (06:13→21:09)
[2022-06-10] MEDS: LIOTHYRONINE SODIUM 25 MCG TABLET PO SCH (06:13)
[2022-06-10] MEDS: NYSTATIN 100,000 UNIT/GM TOPICAL CREAM 15 GM TUBE TP SCH ×3 (06:14→17:06)
[2022-06-10] MEDS: INSULIN SLIDING SCALE (NOVOLOG) 1 VIAL SQ SCH ×4 (06:18→21:15)
[2022-06-10 06:36] LABS: HEMATOCRIT 26.9 % (32.4-45.2); HEMOGLOBIN 8.5 GM/dL (10.7-15.3); MCHC 31.7 g/dl (32.0-36.0); MEAN CELL VOLUME 94.8 fl (80-96); MEAN PLT VOLUME 7.9 fl (7.5-11.1); PLATELET COUNT 264 10^3/uL (134-434); RBC 2.84 M/mm3 (3.60-5.2); RDW 17.1 % (11.6-15.6); WHITE BLOOD COUNT 6.6 K/mm3 (4.0-10.0)
[2022-06-10 07:06] LABS: BLOOD UREA NITROGEN 14.2 mg/dL (7-18)
[2022-06-10 07:09] LABS: CREATININE 3.2 mg/dL (0.55-1.3)
[2022-06-10 07:10] LABS: BILIRUBIN,TOTAL 0.7 mg/dL (0.2-1)
[2022-06-10 07:11] LABS: TOT PROT 6.5 g/dl (6.4-8.2)
[2022-06-10] MEDS ORDERED: MAGNESIUM 2GM/50ML STERILE WATER IVPB IVPB ONE (07:14)
[2022-06-10] MEDS ORDERED: MAGNESIUM OXIDE 400 MG TABLET (FP) PO ONE (07:14)
[2022-06-10 07:32] LABS: CALCIUM 8.2 mg/dL (8.5-10.1)
[2022-06-10] MEDS: ALBUTEROL SO4 0.083% IH SOL 2.5 MG/3 ML VIAL.NEB. NEB PRN (07:35)
[2022-06-10 08:23] LABS: ALBUMIN 2.2 g/dl (3.4-5.0); MAGNESIUM 1.9 mg/dL (1.8-2.4)
[2022-06-10] MEDS: levETIRAcetam 500 MG/5 ML INJECTION VIAL IVPB SCH ×2 (11:33→21:09)
[2022-06-10] MEDS: NIFEdipine E.R. 90 MG TABLET PO SCH (11:34)
[2022-06-10] MEDS: LEVOTHYROXINE SODIUM 100 MCG VIAL IVPUSH SCH (11:34)
[2022-06-10] MEDS: TORSEMIDE 20 MG TABLET (FP) PO SCH (11:36)
[2022-06-10 11:49] LABS: ARTERIAL BLD GAS O2 SATURATION 87.8 % (95-98); ARTERIAL BLOOD GAS BASE EXCESS 6.3 mmol/L (-2-2); ARTERIAL BLOOD GAS PO2 58.3 mmHg (80-100)
[2022-06-10 11:50] LABS: ALLENS TEST POSITIVE
[2022-06-10] MEDS: FUROSEMIDE 100 MG/10 ML INJECTABLE VIAL IVPB SCH (12:47)
[2022-06-10] MEDS ORDERED: diphenhydrAMINE HCL 25 MG CAPSULE (FP) PO ONE (19:29)
[2022-06-11] MEDS: NYSTATIN 100,000 UNIT/GM TOPICAL CREAM 15 GM TUBE TP SCH ×5 (00:11→23:18)
[2022-06-11] MEDS: INSULIN SLIDING SCALE (NOVOLOG) 1 VIAL SQ SCH ×3 (06:46→16:36)
[2022-06-11] MEDS: HEPARIN NA (PORCINE) 5,000 UNITS/ML 1ML VIAL SQ SCH ×3 (06:46→21:07)
[2022-06-11] MEDS: LIOTHYRONINE SODIUM 25 MCG TABLET PO SCH (06:46)
[2022-06-11] MEDS: NIFEdipine E.R. 90 MG TABLET PO SCH (09:40)
[2022-06-11] MEDS: LEVOTHYROXINE SODIUM 100 MCG VIAL IVPUSH SCH (09:41)
[2022-06-11] MEDS: levETIRAcetam 500 MG/5 ML INJECTION VIAL IVPB SCH ×2 (09:41→21:07)
[2022-06-11] MEDS: FUROSEMIDE 100 MG/10 ML INJECTABLE VIAL IVPB SCH (09:41)
[2022-06-11] MEDS ORDERED: SODIUM CHLORIDE 250 ML IV PRN (10:01)
[2022-06-11] MEDS ORDERED: EPOETIN ALFA-EPBX 10,000 UNIT/ML VIAL SQ ONE (10:15)
[2022-06-11 11:41] LABS: HEMATOCRIT 27.6 % (32.4-45.2); HEMOGLOBIN 8.7 GM/dL (10.7-15.3); MCH 29.6 pg (25.7-33.7); MCHC 31.4 g/dl (32.0-36.0); MEAN CELL VOLUME 94.2 fl (80-96); MEAN PLT VOLUME 7.6 fl (7.5-11.1); PLATELET COUNT 272 10^3/uL (134-434); RBC 2.93 M/mm3 (3.60-5.2); RDW 17.4 % (11.6-15.6); WHITE BLOOD COUNT 4.6 K/mm3 (4.0-10.0)
[2022-06-11 12:01] LABS: BLOOD UREA NITROGEN 14.8 mg/dL (7-18); CALCIUM 8.2 mg/dL (8.5-10.1)
[2022-06-11 12:04] LABS: CREATININE 3.2 mg/dL (0.55-1.3)
[2022-06-11] MEDS: ALBUMIN HUMAN 25% 12.5 GM/50 ML VIAL IV SCH ×2 (13:55→13:56)
[2022-06-12] MEDS: INSULIN SLIDING SCALE (NOVOLOG) 1 VIAL SQ SCH ×3 (06:36→17:14)
[2022-06-12] MEDS: NYSTATIN 100,000 UNIT/GM TOPICAL CREAM 15 GM TUBE TP SCH ×4 (06:36→23:45)
[2022-06-12] MEDS: LIOTHYRONINE SODIUM 25 MCG TABLET PO SCH (06:36)
[2022-06-12] MEDS: HEPARIN NA (PORCINE) 5,000 UNITS/ML 1ML VIAL SQ SCH ×3 (06:36→22:00)
[2022-06-12] MEDS: levETIRAcetam 500 MG/5 ML INJECTION VIAL IVPB SCH ×2 (09:29→22:00)
[2022-06-12 09:44] LABS: CALCIUM 8.2 mg/dL (8.5-10.1)
[2022-06-12 09:47] LABS: PHOSPHOROUS 3.4 mg/dL (2.5-4.9)
[2022-06-12] MEDS: NIFEdipine E.R. 90 MG TABLET PO SCH (09:50)
[2022-06-12 10:14] LABS: ARTERIAL BLD GAS O2 SATURATION 96.5 % (95-98); ARTERIAL BLOOD GAS BASE EXCESS 7.6 mmol/L (-2-2); ARTERIAL BLOOD GAS PO2 99.8 mmHg (80-100); ARTERIAL BLOOD GAS pH 7.282 (7.350-7.450)
[2022-06-12] MEDS: LEVOTHYROXINE SODIUM 100 MCG VIAL IVPUSH SCH (10:22)
[2022-06-12] MEDS: FUROSEMIDE 100 MG/10 ML INJECTABLE VIAL IVPB SCH (10:27)
[2022-06-12 10:35] LABS: ALLENS TEST POSITIVE
[2022-06-12 10:36] LABS: VENT MODE S/T; VENT RATE 14
[2022-06-12] MEDS: DEXTROSE 50%-WATER 25 GM/50 ML DISP.SYRIN IVPUSH PRN ×2 (10:58→18:36)
[2022-06-12] MEDS ORDERED: ASPIRIN 81 MG CHEWABLE TABLETS PO SCH (13:15)
[2022-06-12] MEDS ORDERED: DEXTROSE 50%-WATER - 25 GM/50 ML VIAL ONE (18:34)
[2022-06-13] MEDS: HEPARIN NA (PORCINE) 5,000 UNITS/ML 1ML VIAL SQ SCH ×3 (05:16→21:49)
[2022-06-13] MEDS: NYSTATIN 100,000 UNIT/GM TOPICAL CREAM 15 GM TUBE TP SCH ×3 (05:16→17:16)
[2022-06-13] MEDS: DEXTROSE 50%-WATER 25 GM/50 ML DISP.SYRIN IVPUSH PRN ×2 (05:22→12:50)
[2022-06-13] MEDS: INSULIN SLIDING SCALE (NOVOLOG) 1 VIAL SQ SCH ×3 (06:08→16:31)
[2022-06-13] MEDS: LIOTHYRONINE SODIUM 25 MCG TABLET PO SCH (06:08)
[2022-06-13 06:22] LABS: ARTERIAL BLD GAS O2 SATURATION 96.9 % (95-98); ARTERIAL BLOOD GAS BASE EXCESS 5.6 mmol/L (-2-2); ARTERIAL BLOOD GAS PO2 102.1 mmHg (80-100); ARTERIAL BLOOD GAS pH 7.301 (7.350-7.450)
[2022-06-13 06:23] LABS: ALLENS TEST POSITIVE
[2022-06-13 06:24] LABS: VENT RATE 18
[2022-06-13] MEDS ORDERED: EPOETIN ALFA-EPBX 10,000 UNIT/ML VIAL IVPUSH ONE (10:00)
[2022-06-13] MEDS ORDERED: SODIUM CHLORIDE 250 ML IV PRN (11:04)
[2022-06-13] MEDS: FUROSEMIDE 100 MG/10 ML INJECTABLE VIAL IVPB SCH (12:30)
[2022-06-13] MEDS: levETIRAcetam 500 MG/5 ML INJECTION VIAL IVPB SCH ×2 (12:31→21:49)
[2022-06-13] MEDS: LEVOTHYROXINE SODIUM 100 MCG VIAL IVPUSH SCH (12:36)
[2022-06-13] MEDS: NIFEdipine E.R. 90 MG TABLET PO SCH (12:57)
[2022-06-14] MEDS ORDERED: ALBUTEROL SO4 2.5/IPRATROPIUM 0.5 INH SOL 3 ML VIAL.NEB. NEB ONE (00:44)
[2022-06-14] MEDS: NYSTATIN 100,000 UNIT/GM TOPICAL CREAM 15 GM TUBE TP SCH ×5 (00:50→23:53)
[2022-06-14 01:39] LABS: ALLENS TEST POSITIVE; ARTERIAL BLD GAS O2 SATURATION 93.4 % (95-98); ARTERIAL BLOOD GAS BASE EXCESS 5.2 mmol/L (-2-2); ARTERIAL BLOOD GAS PO2 71.7 mmHg (80-100); ARTERIAL BLOOD GAS pH 7.354 (7.350-7.450)
[2022-06-14] MEDS: HEPARIN NA (PORCINE) 5,000 UNITS/ML 1ML VIAL SQ SCH ×3 (06:13→21:36)
[2022-06-14] MEDS: INSULIN SLIDING SCALE (NOVOLOG) 1 VIAL SQ SCH ×3 (06:14→16:30)
[2022-06-14] MEDS: LIOTHYRONINE SODIUM 25 MCG TABLET PO SCH (06:14)
[2022-06-14] MEDS ORDERED: HEPARIN NA (PORCINE) 5,000 UNITS/ML 1ML VIAL IVPUSH ONE (08:00)
[2022-06-14] MEDS ORDERED: EPOETIN ALFA-EPBX 10,000 UNIT/ML VIAL SQ ONE (09:00)
[2022-06-14 09:38] LABS: HEMATOCRIT 28.2 % (32.4-45.2); HEMOGLOBIN 9.1 GM/dL (10.7-15.3); MCH 30.7 pg (25.7-33.7); MCHC 32.3 g/dl (32.0-36.0); MEAN CELL VOLUME 94.9 fl (80-96); MEAN PLT VOLUME 7.7 fl (7.5-11.1); PLATELET COUNT 291 10^3/uL (134-434); RBC 2.97 M/mm3 (3.60-5.2); RDW 16.9 % (11.6-15.6); WHITE BLOOD COUNT 6.5 K/mm3 (4.0-10.0)
[2022-06-14] MEDS: levETIRAcetam 500 MG/5 ML INJECTION VIAL IVPB SCH ×2 (09:48→21:36)
[2022-06-14] MEDS: LEVOTHYROXINE SODIUM 100 MCG VIAL IVPUSH SCH (09:49)
[2022-06-14] MEDS: FUROSEMIDE 100 MG/10 ML INJECTABLE VIAL IVPB SCH (12:45)
[2022-06-14] MEDS: NIFEdipine E.R. 90 MG TABLET PO SCH (12:45)
[2022-06-14 14:03] LABS: CALCIUM 8.5 mg/dL (8.5-10.1)
[2022-06-14 14:04] LABS: ALBUMIN 2.3 g/dl (3.4-5.0)
[2022-06-14 14:09] LABS: BILIRUBIN,TOTAL 0.6 mg/dL (0.2-1); TOT PROT 6.6 g/dl (6.4-8.2)
[2022-06-15] MEDS: NYSTATIN 100,000 UNIT/GM TOPICAL CREAM 15 GM TUBE TP SCH ×4 (05:19→23:20)
[2022-06-15] MEDS: HEPARIN NA (PORCINE) 5,000 UNITS/ML 1ML VIAL SQ SCH ×3 (05:20→21:15)
[2022-06-15] MEDS: LIOTHYRONINE SODIUM 25 MCG TABLET PO SCH (06:13)
[2022-06-15] MEDS: INSULIN SLIDING SCALE (NOVOLOG) 1 VIAL SQ SCH ×3 (06:14→16:37)
[2022-06-15] MEDS: levETIRAcetam 500 MG/5 ML INJECTION VIAL IVPB SCH ×2 (09:09→21:15)
[2022-06-15] MEDS: FUROSEMIDE 100 MG/10 ML INJECTABLE VIAL IVPB SCH (09:53)
[2022-06-15] MEDS: LEVOTHYROXINE SODIUM 100 MCG VIAL IVPUSH SCH (09:55)
[2022-06-15] MEDS: NIFEdipine E.R. 90 MG TABLET PO SCH (09:57)
[2022-06-15] MEDS ORDERED: TRIPLE LUMEN FLUSH 4 ML ML IVPUSH PRN (15:12)
[2022-06-16] MEDS: HEPARIN NA (PORCINE) 5,000 UNITS/ML 1ML VIAL SQ SCH ×3 (05:37→21:01)
[2022-06-16] MEDS: NYSTATIN 100,000 UNIT/GM TOPICAL CREAM 15 GM TUBE TP SCH ×3 (05:37→18:06)
[2022-06-16] MEDS: INSULIN SLIDING SCALE (NOVOLOG) 1 VIAL SQ SCH ×3 (06:18→17:10)
[2022-06-16] MEDS: LIOTHYRONINE SODIUM 25 MCG TABLET PO SCH (06:33)
[2022-06-16] MEDS ORDERED: EPOETIN ALFA-EPBX 10,000 UNIT/ML VIAL SQ ONE (07:45)
[2022-06-16] MEDS: ALBUMIN HUMAN 25% 12.5 GM/50 ML VIAL IV SCH ×4 (07:50→09:15)
[2022-06-16 09:26] LABS: HEMATOCRIT 28.5 % (32.4-45.2); HEMOGLOBIN 8.8 GM/dL (10.7-15.3); MCH 29.3 pg (25.7-33.7); MCHC 30.7 g/dl (32.0-36.0); MEAN CELL VOLUME 95.3 fl (80-96); MEAN PLT VOLUME 7.7 fl (7.5-11.1); PLATELET COUNT 299 10^3/uL (134-434); RBC 2.99 M/mm3 (3.60-5.2); RDW 17.5 % (11.6-15.6); WHITE BLOOD COUNT 5.8 K/mm3 (4.0-10.0)
[2022-06-16 09:49] LABS: CALCIUM 8.6 mg/dL (8.5-10.1)
[2022-06-16 09:50] LABS: ALBUMIN 2.2 g/dl (3.4-5.0); BLOOD UREA NITROGEN 11.1 mg/dL (7-18); MAGNESIUM 1.9 mg/dL (1.8-2.4)
[2022-06-16 09:54] LABS: CREATININE 3.1 mg/dL (0.55-1.3); PHOSPHOROUS 3.2 mg/dL (2.5-4.9)
[2022-06-16 09:55] LABS: BILIRUBIN,TOTAL 0.6 mg/dL (0.2-1); TOT PROT 6.5 g/dl (6.4-8.2)
[2022-06-16] MEDS ORDERED: SODIUM CHLORIDE 250 ML IV PRN (10:40)
[2022-06-16] MEDS: levETIRAcetam 500 MG/5 ML INJECTION VIAL IVPB SCH ×2 (12:13→21:01)
[2022-06-16] MEDS: NIFEdipine E.R. 90 MG TABLET PO SCH (12:27)
[2022-06-16] MEDS: LEVOTHYROXINE SODIUM 100 MCG VIAL IVPUSH SCH (12:39)
[2022-06-16] MEDS: FUROSEMIDE 100 MG/10 ML INJECTABLE VIAL IVPB SCH (12:51)
[2022-06-16] MEDS: ALBUTEROL SO4 HFA INHALER IH PRN (21:30)
[2022-06-17] MEDS: NYSTATIN 100,000 UNIT/GM TOPICAL CREAM 15 GM TUBE TP SCH ×5 (01:14→23:11)
[2022-06-17] MEDS: HEPARIN NA (PORCINE) 5,000 UNITS/ML 1ML VIAL SQ SCH ×3 (05:52→22:06)
[2022-06-17] MEDS: LIOTHYRONINE SODIUM 25 MCG TABLET PO SCH (06:21)
[2022-06-17] MEDS: INSULIN SLIDING SCALE (NOVOLOG) 1 VIAL SQ SCH ×3 (06:22→17:26)
[2022-06-17 07:15] LABS: BASO % 0.8 % (0-2.0); HEMATOCRIT 30.3 % (32.4-45.2); HEMOGLOBIN 9.3 GM/dL (10.7-15.3); LYMPH % 42.7 % (8-40); MCH 29.6 pg (25.7-33.7); MCHC 30.8 g/dl (32.0-36.0); MEAN CELL VOLUME 96.2 fl (80-96); MEAN PLT VOLUME 7.9 fl (7.5-11.1); MONO % 7.3 % (3.8-10.2); NEUT % 49.2 % (42.8-82.8); PLATELET COUNT 291 10^3/uL (134-434); RBC 3.15 M/mm3 (3.60-5.2); RDW 17.5 % (11.6-15.6); WHITE BLOOD COUNT 6.5 K/mm3 (4.0-10.0)
[2022-06-17 07:39] LABS: BLOOD UREA NITROGEN 9.4 mg/dL (7-18); CALCIUM 8.8 mg/dL (8.5-10.1); MAGNESIUM 1.8 mg/dL (1.8-2.4)
[2022-06-17 07:40] LABS: ALBUMIN 2.3 g/dl (3.4-5.0)
[2022-06-17 07:43] LABS: CREATININE 2.9 mg/dL (0.55-1.3); PHOSPHOROUS 2.9 mg/dL (2.5-4.9)
[2022-06-17 07:44] LABS: BILIRUBIN,TOTAL 0.6 mg/dL (0.2-1); TOT PROT 6.8 g/dl (6.4-8.2)
[2022-06-17] MEDS: levETIRAcetam 500 MG/5 ML INJECTION VIAL IVPB SCH ×2 (09:41→22:06)
[2022-06-17] MEDS: NIFEdipine E.R. 90 MG TABLET PO SCH (09:46)
[2022-06-17] MEDS: LEVOTHYROXINE SODIUM 100 MCG VIAL IVPUSH SCH (10:11)
[2022-06-17] MEDS: FUROSEMIDE 100 MG/10 ML INJECTABLE VIAL IVPB SCH (11:57)
[2022-06-17] MEDS ORDERED: SODIUM CHLORIDE 250 ML IV PRN (15:15)
[2022-06-18] MEDS: HEPARIN NA (PORCINE) 5,000 UNITS/ML 1ML VIAL SQ SCH ×3 (07:00→21:30)
[2022-06-18] MEDS: LIOTHYRONINE SODIUM 25 MCG TABLET PO SCH (07:01)
[2022-06-18] MEDS: NYSTATIN 100,000 UNIT/GM TOPICAL CREAM 15 GM TUBE TP SCH ×3 (07:02→18:42)
[2022-06-18] MEDS: INSULIN SLIDING SCALE (NOVOLOG) 1 VIAL SQ SCH ×3 (07:02→16:20)
[2022-06-18] MEDS ORDERED: EPOETIN ALFA-EPBX 10,000 UNIT/ML VIAL IVPUSH ONE (09:00)
[2022-06-18] MEDS ORDERED: HEPARIN NA (PORCINE) 5,000 UNITS/ML 1ML VIAL IVPUSH ONE (09:00)
[2022-06-18] MEDS: HEPARIN NA (PORCINE) 5,000 UNITS/ML 1ML VIAL IVPUSH SCH ×3 (09:40→11:40)
[2022-06-18 09:42] LABS: HEMATOCRIT 31.3 % (32.4-45.2); HEMOGLOBIN 9.7 GM/dL (10.7-15.3); MCH 29.3 pg (25.7-33.7); MCHC 30.8 g/dl (32.0-36.0); MEAN CELL VOLUME 95.2 fl (80-96); MEAN PLT VOLUME 7.7 fl (7.5-11.1); PLATELET COUNT 310 10^3/uL (134-434); RBC 3.29 M/mm3 (3.60-5.2)
[2022-06-18 10:01] LABS: ALBUMIN 2.4 g/dl (3.4-5.0); BLOOD UREA NITROGEN 12.1 mg/dL (7-18); CALCIUM 9.1 mg/dL (8.5-10.1)
[2022-06-18 10:05] LABS: BILIRUBIN,TOTAL 0.6 mg/dL (0.2-1); CREATININE 3.7 mg/dL (0.55-1.3)
[2022-06-18 12:50] LABS: ARTERIAL BLD GAS O2 SATURATION 96.9 % (95-98); ARTERIAL BLOOD GAS PO2 100.3 mmHg (80-100); ARTERIAL BLOOD GAS pH 7.315 (7.350-7.450)
[2022-06-18 12:57] LABS: ALLENS TEST POSITIVE
[2022-06-18] MEDS: NIFEdipine E.R. 90 MG TABLET PO SCH (13:22)
[2022-06-18] MEDS: FUROSEMIDE 100 MG/10 ML INJECTABLE VIAL IVPB SCH ×2 (13:22→14:18)
[2022-06-18] MEDS: LEVOTHYROXINE SODIUM 100 MCG VIAL IVPUSH SCH ×2 (13:22→14:17)
[2022-06-18] MEDS: levETIRAcetam 500 MG/5 ML INJECTION VIAL IVPB SCH ×2 (13:22→14:18)
[2022-06-18] MEDS: levETIRAcetam 500 MG TABLET (FP) PO SCH ×2 (14:53→21:30)
[2022-06-19] MEDS: NYSTATIN 100,000 UNIT/GM TOPICAL CREAM 15 GM TUBE TP SCH ×5 (00:19→23:27)
[2022-06-19] MEDS: ACETAMINOPHEN 500 MG TABLET (FP) PO PRN ×3 (01:20→15:32)
[2022-06-19] MEDS: LIOTHYRONINE SODIUM 25 MCG TABLET PO SCH (06:22)
[2022-06-19] MEDS: HEPARIN NA (PORCINE) 5,000 UNITS/ML 1ML VIAL SQ SCH ×3 (06:23→22:06)
[2022-06-19] MEDS: INSULIN SLIDING SCALE (NOVOLOG) 1 VIAL SQ SCH ×3 (06:26→16:48)
[2022-06-19] MEDS: LEVOTHYROXINE NA 100 MCG TABLET (FP) PO SCH (06:29)
[2022-06-19] MEDS: levETIRAcetam 500 MG TABLET (FP) PO SCH ×2 (10:13→22:06)
[2022-06-19] MEDS: FUROSEMIDE 40 MG TABLET (FP) PO SCH (10:13)
[2022-06-19] MEDS: NIFEdipine E.R. 90 MG TABLET PO SCH (10:14)
[2022-06-19] MEDS: ALBUTEROL SO4 HFA INHALER IH PRN (14:02)
[2022-06-20] MEDS: ACETAMINOPHEN 500 MG TABLET (FP) PO PRN (01:35)
[2022-06-20] MEDS: NYSTATIN 100,000 UNIT/GM TOPICAL CREAM 15 GM TUBE TP SCH ×4 (05:57→23:11)
[2022-06-20] MEDS: HEPARIN NA (PORCINE) 5,000 UNITS/ML 1ML VIAL SQ SCH ×3 (05:57→22:00)
[2022-06-20] MEDS: LIOTHYRONINE SODIUM 25 MCG TABLET PO SCH (06:03)
[2022-06-20] MEDS: INSULIN SLIDING SCALE (NOVOLOG) 1 VIAL SQ SCH ×3 (06:03→16:34)
[2022-06-20] MEDS: LEVOTHYROXINE NA 100 MCG TABLET (FP) PO SCH (06:03)
[2022-06-20] MEDS: levETIRAcetam 500 MG TABLET (FP) PO SCH ×2 (09:15→22:00)
[2022-06-20] MEDS: FUROSEMIDE 40 MG TABLET (FP) PO SCH (09:15)
[2022-06-20] MEDS: NIFEdipine E.R. 90 MG TABLET PO SCH (09:24)
[2022-06-20] MEDS ORDERED: SODIUM CHLORIDE 250 ML IV PRN (11:59)
[2022-06-20 22:09] LABS: EPI CELLS >36 /uL (0-25.1); HYALINE CASTS 16 /uL (0-3.1); URINE APPEARANCE TURBID; URINE BACTERIA >9,000 /uL (0-1359); URINE BILIRUBIN NEGATIVE (NEGATIVE); URINE COLOR YELLOW; URINE GLUCOSE (UA) NEGATIVE (NEGATIVE); URINE KETONE NEGATIVE (NEGATIVE); URINE LEUK ESTERASE 3+ (NEGATIVE); URINE NITRITE NEGATIVE (NEGATIVE); URINE PROTEIN 4+ (NEGATIVE); URINE UROBILINOGEN 0.2 mg/dL (0.2-1.0); URINE WBC 7093 /uL (0-25.8)
[2022-06-20 23:07] LABS: URINE RBC 430.5 /uL (0-23.9)
[2022-06-21] MEDS: LEVOTHYROXINE NA 100 MCG TABLET (FP) PO SCH (06:30)
[2022-06-21] MEDS: LIOTHYRONINE SODIUM 25 MCG TABLET PO SCH (06:30)
[2022-06-21] MEDS: NYSTATIN 100,000 UNIT/GM TOPICAL CREAM 15 GM TUBE TP SCH ×3 (06:31→17:20)
[2022-06-21] MEDS: INSULIN SLIDING SCALE (NOVOLOG) 1 VIAL SQ SCH ×3 (06:52→17:03)
[2022-06-21 08:16] LABS: HEMOGLOBIN 10.7 GM/dL (10.7-15.3); MCHC 31.4 g/dl (32.0-36.0); MEAN CELL VOLUME 95.7 fl (80-96); MEAN PLT VOLUME 7.7 fl (7.5-11.1); PLATELET COUNT 272 10^3/uL (134-434); RBC 3.55 M/mm3 (3.60-5.2); RDW 17.1 % (11.6-15.6); WHITE BLOOD COUNT 5.6 K/mm3 (4.0-10.0)
[2022-06-21 08:34] LABS: CALCIUM 8.9 mg/dL (8.5-10.1)
[2022-06-21 08:35] LABS: ALBUMIN 2.5 g/dl (3.4-5.0); BLOOD UREA NITROGEN 14.3 mg/dL (7-18)
[2022-06-21 08:37] LABS: PHOSPHOROUS 3.6 mg/dL (2.5-4.9)
[2022-06-21 08:38] LABS: CREATININE 4.1 mg/dL (0.55-1.3)
[2022-06-21 08:39] LABS: BILIRUBIN,TOTAL 0.7 mg/dL (0.2-1); TOT PROT 7.2 g/dl (6.4-8.2)
[2022-06-21] MEDS: levETIRAcetam 500 MG TABLET (FP) PO SCH ×2 (09:19→21:14)
[2022-06-21] MEDS: FUROSEMIDE 40 MG TABLET (FP) PO SCH (09:19)
[2022-06-21] MEDS: NIFEdipine E.R. 90 MG TABLET PO SCH (10:25)
[2022-06-21] MEDS ORDERED: HEPARIN NA (PORCINE) 5,000 UNITS/ML 1ML VIAL IVPUSH ONE (11:59)
[2022-06-21] MEDS ORDERED: EPOETIN ALFA-EPBX 10,000 UNIT/ML VIAL SQ ONE (11:59)
[2022-06-21] MEDS ORDERED: EPOETIN ALFA-EPBX 10,000 UNIT, EPOETIN ALFA-EPBX 2,000 UNIT IVPUSH ONE (13:15)
[2022-06-21] MEDS: HEPARIN NA (PORCINE) 5,000 UNITS/ML 1ML VIAL IVPUSH SCH ×3 (13:29→14:46)
[2022-06-21] MEDS: diphenhydrAMINE HCL 25 MG CAPSULE (FP) PO PRN (21:38)
[2022-06-22] MEDS: NYSTATIN 100,000 UNIT/GM TOPICAL CREAM 15 GM TUBE TP SCH ×4 (00:05→18:38)
[2022-06-22] MEDS: LIOTHYRONINE SODIUM 25 MCG TABLET PO SCH (06:26)
[2022-06-22] MEDS: LEVOTHYROXINE NA 100 MCG TABLET (FP) PO SCH (06:26)
[2022-06-22] MEDS: INSULIN SLIDING SCALE (NOVOLOG) 1 VIAL SQ SCH ×3 (06:26→16:45)
[2022-06-22] MEDS: levETIRAcetam 500 MG TABLET (FP) PO SCH ×2 (09:27→21:00)
[2022-06-22] MEDS: NIFEdipine E.R. 90 MG TABLET PO SCH (09:27)
[2022-06-22] MEDS: FUROSEMIDE 40 MG TABLET (FP) PO SCH (09:27)
[2022-06-22] MEDS: ALBUTEROL SO4 HFA INHALER IH PRN (09:29)
[2022-06-22] MEDS ORDERED: SODIUM CHLORIDE 250 ML IV PRN (12:00)
[2022-06-22] MEDS ORDERED: CIPROFLOXACIN 500 MG TABLET (RESTRICTED TO ID) PO SCH (12:45)
[2022-06-22] MEDS ORDERED: levoFLOXacin 750 MG TABLET PO ONE (15:13)
[2022-06-23] MEDS: NYSTATIN 100,000 UNIT/GM TOPICAL CREAM 15 GM TUBE TP SCH ×5 (00:42→23:10)
[2022-06-23] MEDS: LEVOTHYROXINE NA 100 MCG TABLET (FP) PO SCH (06:06)
[2022-06-23] MEDS: INSULIN SLIDING SCALE (NOVOLOG) 1 VIAL SQ SCH ×3 (06:06→16:45)
[2022-06-23] MEDS: LIOTHYRONINE SODIUM 25 MCG TABLET PO SCH (06:06)
[2022-06-23] MEDS ORDERED: EPOETIN ALFA-EPBX 10,000 UNIT/ML VIAL SQ ONE (08:00)
[2022-06-23] MEDS ORDERED: HEPARIN NA (PORCINE) 5,000 UNITS/ML 1ML VIAL IVPUSH ONE (08:00)
[2022-06-23 09:14] LABS: HEMATOCRIT 29.7 % (32.4-45.2); HEMOGLOBIN 9.1 GM/dL (10.7-15.3); MCH 29.4 pg (25.7-33.7); MCHC 30.7 g/dl (32.0-36.0); MEAN CELL VOLUME 95.9 fl (80-96); PLATELET COUNT 241 10^3/uL (134-434); RDW 16.9 % (11.6-15.6); WHITE BLOOD COUNT 5.3 K/mm3 (4.0-10.0)
[2022-06-23 10:36] LABS: ALBUMIN 2.3 g/dl (3.4-5.0); BLOOD UREA NITROGEN 13.1 mg/dL (7-18); CALCIUM 8.4 mg/dL (8.5-10.1)
[2022-06-23 10:38] LABS: CREATININE 3.5 mg/dL (0.55-1.3)
[2022-06-23 10:41] LABS: BILIRUBIN,TOTAL 0.5 mg/dL (0.2-1); TOT PROT 6.1 g/dl (6.4-8.2)
[2022-06-23] MEDS: FUROSEMIDE 40 MG TABLET (FP) PO SCH (13:18)
[2022-06-23] MEDS: levETIRAcetam 500 MG TABLET (FP) PO SCH ×2 (13:18→21:39)
[2022-06-23] MEDS: HEPARIN NA (PORCINE) 5,000 UNITS/ML 1ML VIAL SQ SCH ×2 (13:20→21:39)
[2022-06-23] MEDS: NIFEdipine E.R. 90 MG TABLET PO SCH (13:54)
[2022-06-23 22:08] LABS: MAGNESIUM 1.8 mg/dL (1.8-2.4)
[2022-06-23 22:13] LABS: PHOSPHOROUS 3.7 mg/dL (2.5-4.9)
[2022-06-24] MEDS: HEPARIN NA (PORCINE) 5,000 UNITS/ML 1ML VIAL SQ SCH ×3 (05:50→21:04)
[2022-06-24] MEDS: NYSTATIN 100,000 UNIT/GM TOPICAL CREAM 15 GM TUBE TP SCH ×3 (05:50→17:27)
[2022-06-24] MEDS: LIOTHYRONINE SODIUM 25 MCG TABLET PO SCH (06:09)
[2022-06-24] MEDS: LEVOTHYROXINE NA 100 MCG TABLET (FP) PO SCH (06:09)
[2022-06-24] MEDS: INSULIN SLIDING SCALE (NOVOLOG) 1 VIAL SQ SCH ×3 (06:29→17:11)
[2022-06-24] MEDS: levETIRAcetam 500 MG TABLET (FP) PO SCH ×2 (10:18→21:04)
[2022-06-24] MEDS: FUROSEMIDE 40 MG TABLET (FP) PO SCH (10:18)
[2022-06-24] MEDS: NIFEdipine E.R. 90 MG TABLET PO SCH (10:26)
[2022-06-24] MEDS: diphenhydrAMINE HCL 25 MG CAPSULE (FP) PO PRN (23:27)
[2022-06-25] MEDS: NYSTATIN 100,000 UNIT/GM TOPICAL CREAM 15 GM TUBE TP SCH ×4 (00:05→17:48)
[2022-06-25] MEDS: LIOTHYRONINE SODIUM 25 MCG TABLET PO SCH (06:18)
[2022-06-25] MEDS: LEVOTHYROXINE NA 100 MCG TABLET (FP) PO SCH (06:18)
[2022-06-25] MEDS: HEPARIN NA (PORCINE) 5,000 UNITS/ML 1ML VIAL SQ SCH ×3 (06:19→21:27)
[2022-06-25] MEDS: INSULIN SLIDING SCALE (NOVOLOG) 1 VIAL SQ SCH ×3 (06:47→16:43)
[2022-06-25] MEDS ORDERED: SODIUM CHLORIDE 250 ML IV PRN (07:55)
[2022-06-25] MEDS ORDERED: EPOETIN ALFA-EPBX 10,000 UNIT/ML VIAL SQ ONE (08:00)
[2022-06-25] MEDS: HEPARIN NA (PORCINE) 5,000 UNITS/ML 1ML VIAL IVPUSH ONE ×2 (09:32→12:32)
[2022-06-25] MEDS: HEPARIN NA (PORCINE) 5,000 UNITS/ML 1ML VIAL IVPUSH SCH ×6 (09:34→17:41)
[2022-06-25 09:42] LABS: HEMATOCRIT 30.2 % (32.4-45.2); HEMOGLOBIN 9.4 GM/dL (10.7-15.3); MCH 29.3 pg (25.7-33.7); MCHC 31.2 g/dl (32.0-36.0); MEAN PLT VOLUME 8.1 fl (7.5-11.1); PLATELET COUNT 255 10^3/uL (134-434); RBC 3.21 M/mm3 (3.60-5.2); RDW 16.2 % (11.6-15.6); WHITE BLOOD COUNT 5.7 K/mm3 (4.0-10.0)
[2022-06-25 10:03] LABS: ALBUMIN 2.4 g/dl (3.4-5.0); BLOOD UREA NITROGEN 17.1 mg/dL (7-18); CALCIUM 8.6 mg/dL (8.5-10.1)
[2022-06-25] MEDS: levETIRAcetam 500 MG TABLET (FP) PO SCH ×2 (10:03→21:28)
[2022-06-25] MEDS: FUROSEMIDE 40 MG TABLET (FP) PO SCH (10:03)
[2022-06-25] MEDS: NIFEdipine E.R. 90 MG TABLET PO SCH (10:04)
[2022-06-25 10:07] LABS: CREATININE 3.7 mg/dL (0.55-1.3)
[2022-06-25 10:08] LABS: BILIRUBIN,TOTAL 0.6 mg/dL (0.2-1); TOT PROT 6.5 g/dl (6.4-8.2)
[2022-06-25 14:36] LABS: HEPATITIS B SURFACE AG CONFIRM CONFIRMED (NONREACTIVE)
[2022-06-25] MEDS: diphenhydrAMINE HCL 25 MG CAPSULE (FP) PO PRN (21:28)
[2022-06-26] MEDS: NYSTATIN 100,000 UNIT/GM TOPICAL CREAM 15 GM TUBE TP SCH ×5 (00:07→23:21)
[2022-06-26] MEDS ORDERED: diphenhydrAMINE HCL 25 MG CAPSULE (FP) PO ONE (03:21)
[2022-06-26] MEDS: HEPARIN NA (PORCINE) 5,000 UNITS/ML 1ML VIAL SQ SCH ×3 (06:26→22:52)
[2022-06-26] MEDS: LEVOTHYROXINE NA 100 MCG TABLET (FP) PO SCH (06:27)
[2022-06-26] MEDS: LIOTHYRONINE SODIUM 5 MCG TABLET PO SCH (06:27)
[2022-06-26] MEDS: INSULIN SLIDING SCALE (NOVOLOG) 1 VIAL SQ SCH ×3 (06:34→17:09)
[2022-06-26] MEDS: FUROSEMIDE 40 MG TABLET (FP) PO SCH (09:22)
[2022-06-26] MEDS: levETIRAcetam 500 MG TABLET (FP) PO SCH ×2 (09:22→22:52)
[2022-06-26] MEDS: NIFEdipine E.R. 90 MG TABLET PO SCH (09:23)
[2022-06-26] MEDS ORDERED: AMMONIUM LACTATE 12% LOTION 225 GM BOTTLE TP PRN (13:23)
[2022-06-27] MEDS: HEPARIN NA (PORCINE) 5,000 UNITS/ML 1ML VIAL SQ SCH ×3 (06:41→21:08)
[2022-06-27] MEDS: LIOTHYRONINE SODIUM 5 MCG TABLET PO SCH (06:41)
[2022-06-27] MEDS: LEVOTHYROXINE NA 100 MCG TABLET (FP) PO SCH (06:41)
[2022-06-27] MEDS: NYSTATIN 100,000 UNIT/GM TOPICAL CREAM 15 GM TUBE TP SCH ×3 (06:42→17:27)
[2022-06-27] MEDS: INSULIN SLIDING SCALE (NOVOLOG) 1 VIAL SQ SCH ×3 (06:51→16:42)
[2022-06-27] MEDS: FUROSEMIDE 40 MG TABLET (FP) PO SCH (09:52)
[2022-06-27] MEDS: NIFEdipine E.R. 90 MG TABLET PO SCH (09:53)
[2022-06-27] MEDS: levETIRAcetam 500 MG TABLET (FP) PO SCH ×2 (09:53→21:08)
[2022-06-27] MEDS ORDERED: SODIUM CHLORIDE 250 ML IV PRN (11:00)
[2022-06-27] MEDS: hydrOXYzine HCL 10 MG/5 ML LIQUID BULK BOTTLE PO PRN (21:57)
[2022-06-28] MEDS: NYSTATIN 100,000 UNIT/GM TOPICAL CREAM 15 GM TUBE TP SCH ×3 (01:24→12:29)
[2022-06-28] MEDS: LIOTHYRONINE SODIUM 5 MCG TABLET PO SCH (06:07)
[2022-06-28] MEDS: HEPARIN NA (PORCINE) 5,000 UNITS/ML 1ML VIAL SQ SCH ×2 (06:07→14:59)
[2022-06-28] MEDS: LEVOTHYROXINE NA 100 MCG TABLET (FP) PO SCH (06:07)
[2022-06-28] MEDS: hydrOXYzine HCL 10 MG/5 ML LIQUID BULK BOTTLE PO PRN (06:08)
[2022-06-28] MEDS: INSULIN SLIDING SCALE (NOVOLOG) 1 VIAL SQ SCH ×2 (06:17→12:29)
[2022-06-28 06:21] VITALS: RESP 18
[2022-06-28] MEDS ORDERED: HEPARIN NA (PORCINE) 5,000 UNITS/ML 1ML VIAL IVPUSH ONE (08:00)
[2022-06-28 08:44] LABS: HEMATOCRIT 30.6 % (32.4-45.2); HEMOGLOBIN 9.9 GM/dL (10.7-15.3); MCH 29.8 pg (25.7-33.7); MCHC 32.2 g/dl (32.0-36.0); MEAN CELL VOLUME 92.7 fl (80-96); MEAN PLT VOLUME 7.6 fl (7.5-11.1); PLATELET COUNT 225 10^3/uL (134-434); WHITE BLOOD COUNT 5.4 K/mm3 (4.0-10.0)
[2022-06-28] MEDS ORDERED: EPOETIN ALFA-EPBX 10,000 UNIT/ML VIAL IVPUSH ONE (09:00)
[2022-06-28 09:12] LABS: ALBUMIN 2.5 g/dl (3.4-5.0); BLOOD UREA NITROGEN 39.4 mg/dL (7-18); CALCIUM 8.6 mg/dL (8.5-10.1)
[2022-06-28 09:14] LABS: CREATININE 5.3 mg/dL (0.55-1.3)
[2022-06-28 09:16] LABS: BILIRUBIN,TOTAL 0.6 mg/dL (0.2-1); TOT PROT 6.7 g/dl (6.4-8.2)
[2022-06-28] MEDS: levETIRAcetam 500 MG TABLET (FP) PO SCH (09:17)
[2022-06-28] MEDS: FUROSEMIDE 40 MG TABLET (FP) PO SCH (09:17)
[2022-06-28] MEDS: NIFEdipine E.R. 90 MG TABLET PO SCH (09:18)
[2022-06-28] MEDS: HEPARIN NA (PORCINE) 5,000 UNITS/ML 1ML VIAL IVPUSH SCH ×3 (09:21→11:00)
[2022-06-28 14:59] VITALS: BP 118/57; PULSE 76; TEMP 97.2
== END 2022-06-28 16:25 | disposition short-term general hospital (02) | DRG 133 ==
LOC: JER 23:10 → JERBED 06-06 02:00 → JICU 06-06 03:20 → J4S 06-08 20:32
PROVIDERS: ADMIT Internal Medicine Pulmonary Disease
PROC: 5A1945Z Respiratory Ventilation, 24-96 Consecutive Hours (ICD-10-PCS; principal; 2022-06-06)
PROC: 0BH17EZ Insertion of Endotracheal Airway into Trachea, Via Natural or Artificial Opening (ICD-10-PCS; 2022-06-06)
PROC: 5A1D70Z Performance of Urinary Filtration, Intermittent, Less than 6 Hours Per Day (ICD-10-PCS; 2022-06-06)
PROC: 5A1D70Z Performance of Urinary Filtration, Intermittent, Less than 6 Hours Per Day (ICD-10-PCS; 2022-06-07)
DX: J96.01 Acute respiratory failure with hypoxia (principal); E03.5 Myxedema coma; G93.41 Metabolic encephalopathy; Z68.41 Body mass index [BMI] 40.0-44.9, adult; J44.9 Chronic obstructive pulmonary disease, unspecified; R13.10 Dysphagia, unspecified; E11.22 Type 2 diabetes mellitus with diabetic chronic kidney disease; N18.6 End stage renal disease; I13.2 Hypertensive heart and chronic kidney disease with heart failure and with stage 5 chronic kidney disease, or end stage renal disease; I50.33 Acute on chronic diastolic (congestive) heart failure; E87.29 Other acidosis; F20.0 Paranoid schizophrenia; E66.01 Morbid (severe) obesity due to excess calories; J96.02 Acute respiratory failure with hypercapnia; Z99.2 Dependence on renal dialysis; E78.5 Hyperlipidemia, unspecified; G47.33 Obstructive sleep apnea (adult) (pediatric); E03.9 Hypothyroidism, unspecified; Z91.15 Patient's noncompliance with renal dialysis; B18.1 Chronic viral hepatitis B without delta-agent; D63.1 Anemia in chronic kidney disease; F41.9 Anxiety disorder, unspecified; F32.A Depression, unspecified; M54.50 Low back pain, unspecified; L29.9 Pruritus, unspecified; R74.01 Elevation of levels of liver transaminase levels; N39.0 Urinary tract infection, site not specified; R79.89 Other specified abnormal findings of blood chemistry; B96.1 Klebsiella pneumoniae [K. pneumoniae] as the cause of diseases classified elsewhere
CPT/HCPCS: 31500; 36415; 36600; 70450-TC; 71045-TC-FY; 76705-TC; 80048; 80053; 80061; 81003; 82140; 82310; 82550; 82803; 82962; 82977; 83605; 83735; 84100; 84439; 84443; 84481; 84484; 85025; 85027; 85610; 85730; 86705; 86707; 86850; 86900; 86901; 87040; 87086; 87186; 87340; 87350; 87517; 93005; 93010; 94002; 94640; 94660; 97116-GP; 97161-GP; 99291; C9803-CS; J1644; Q5106; U0003; U0005

== ENCOUNTER 2022-07-01 14:07 | Observation (INO) | payer OTHER ==
[2022-07-01] MEDS ORDERED: SODIUM CHLORIDE 250 ML IV PRN (16:32)
[2022-07-01] MEDS ORDERED: EPOETIN ALFA-EPBX 10,000 UNIT/ML VIAL SQ ONE (16:32)
[2022-07-01 16:56] LABS: BASO % 0.4 % (0-2.0); HEMATOCRIT 35.9 % (32.4-45.2); HEMOGLOBIN 11.4 GM/dL (10.7-15.3); LYMPH % 35.6 % (8-40); MCH 28.8 pg (25.7-33.7); MCHC 31.8 g/dl (32.0-36.0); MEAN CELL VOLUME 90.7 fl (80-96); MEAN PLT VOLUME 7.8 fl (7.5-11.1); MONO % 6.8 % (3.8-10.2); NEUT % 57.2 % (42.8-82.8); PLATELET COUNT 265 10^3/uL (134-434); RBC 3.96 M/mm3 (3.60-5.2); RDW 16.3 % (11.6-15.6); WHITE BLOOD COUNT 4.4 K/mm3 (4.0-10.0)
[2022-07-01 17:21] LABS: BLOOD UREA NITROGEN 41.8 mg/dL (7-18)
[2022-07-01 17:25] LABS: BILIRUBIN,TOTAL 0.5 mg/dL (0.2-1); TOT PROT 7.7 g/dl (6.4-8.2)
[2022-07-02] MEDS: hydrALAZINE HCL 25 MG TABLET (FP) PO SCH ×3 (05:39→21:13)
[2022-07-02] MEDS ORDERED: LEVOTHYROXINE NA 200 MCG TABLET PO SCH (07:00)
[2022-07-02] MEDS: HEPARIN NA (PORCINE) 5,000 UNITS/ML 1ML VIAL SQ SCH ×2 (10:35→21:13)
[2022-07-02] MEDS: levETIRAcetam 500 MG TABLET (FP) PO SCH ×2 (10:35→21:13)
[2022-07-02 11:09] LABS: ALBUMIN 2.8 g/dl (3.4-5.0); BLOOD UREA NITROGEN 23.6 mg/dL (7-18)
[2022-07-02 11:10] LABS: HEMATOCRIT 35.6 % (32.4-45.2); HEMOGLOBIN 11.1 GM/dL (10.7-15.3); MCH 29.2 pg (25.7-33.7); MCHC 31.3 g/dl (32.0-36.0); MEAN CELL VOLUME 93.4 fl (80-96); MEAN PLT VOLUME 7.6 fl (7.5-11.1); PLATELET COUNT 187 10^3/uL (134-434); RBC 3.82 M/mm3 (3.60-5.2); RDW 16.5 % (11.6-15.6); WHITE BLOOD COUNT 4.7 K/mm3 (4.0-10.0)
[2022-07-02 11:11] LABS: CALCIUM 8.3 mg/dL (8.5-10.1)
[2022-07-02 11:13] LABS: PHOSPHOROUS 4.2 mg/dL (2.5-4.9)
[2022-07-02 11:15] LABS: CREATININE 3.5 mg/dL (0.55-1.3); TOT PROT 6.8 g/dl (6.4-8.2)
[2022-07-02 11:17] LABS: BILIRUBIN,TOTAL 0.4 mg/dL (0.2-1)
[2022-07-02] MEDS: LORATADINE 10 MG TABLET PO SCH (16:57)
[2022-07-02] MEDS: ACETAMINOPHEN 325 MG TABLET (FP) PO PRN (16:59)
[2022-07-02] MEDS ORDERED: INSULIN SLIDING SCALE (NOVOLOG) 1 VIAL SQ SCH (22:00)
[2022-07-03] MEDS: hydrALAZINE HCL 25 MG TABLET (FP) PO SCH ×3 (05:09→21:11)
[2022-07-03] MEDS: diphenhydrAMINE HCL 25 MG CAPSULE (FP) PO ONE ×2 (05:09)
[2022-07-03] MEDS: INSULIN SLIDING SCALE (NOVOLOG) 1 VIAL SQ SCH ×2 (06:09→17:03)
[2022-07-03] MEDS: LIOTHYRONINE SODIUM 25 MCG TABLET PO SCH (06:22)
[2022-07-03] MEDS: LEVOTHYROXINE NA 100 MCG TABLET (FP) PO SCH (06:22)
[2022-07-03] MEDS: LORATADINE 10 MG TABLET PO SCH (10:53)
[2022-07-03] MEDS: levETIRAcetam 500 MG TABLET (FP) PO SCH ×2 (10:53→21:11)
[2022-07-03] MEDS: HEPARIN NA (PORCINE) 5,000 UNITS/ML 1ML VIAL SQ SCH ×2 (10:53→21:11)
[2022-07-03] MEDS: DOCUSATE SODIUM 100 MG CAPSULE (FP) PO SCH (21:11)
[2022-07-03] MEDS: POLYETHYLENE GLYCOL (HEALTHYLAX) 3350 17 GM PACKET PO SCH (21:11)
[2022-07-03] MEDS: SENNOSIDES 8.6MG TABLET (FP) PO SCH (21:11)
[2022-07-04] MEDS: INSULIN SLIDING SCALE (NOVOLOG) 1 VIAL SQ SCH ×2 (06:05→17:12)
[2022-07-04] MEDS: LEVOTHYROXINE NA 100 MCG TABLET (FP) PO SCH (06:42)
[2022-07-04] MEDS: DOCUSATE SODIUM 100 MG CAPSULE (FP) PO SCH ×3 (06:42→22:02)
[2022-07-04] MEDS: LIOTHYRONINE SODIUM 25 MCG TABLET PO SCH (06:43)
[2022-07-04] MEDS: hydrALAZINE HCL 25 MG TABLET (FP) PO SCH ×3 (06:48→22:02)
[2022-07-04] MEDS ORDERED: SODIUM CHLORIDE 250 ML IV PRN (07:19)
[2022-07-04 09:54] LABS: BASO % 0.5 % (0-2.0); HEMATOCRIT 31.2 % (32.4-45.2); HEMOGLOBIN 9.8 GM/dL (10.7-15.3); LYMPH % 43.1 % (8-40); MCH 28.8 pg (25.7-33.7); MCHC 31.4 g/dl (32.0-36.0); MEAN CELL VOLUME 91.7 fl (80-96); MEAN PLT VOLUME 7.8 fl (7.5-11.1); MONO % 7.8 % (3.8-10.2); NEUT % 48.6 % (42.8-82.8); PLATELET COUNT 265 10^3/uL (134-434); RDW 16.2 % (11.6-15.6); WHITE BLOOD COUNT 5.4 K/mm3 (4.0-10.0)
[2022-07-04 10:15] LABS: CALCIUM 8.9 mg/dL (8.5-10.1)
[2022-07-04 10:16] LABS: ALBUMIN 2.8 g/dl (3.4-5.0)
[2022-07-04 10:19] LABS: CREATININE 5.3 mg/dL (0.55-1.3)
[2022-07-04 10:20] LABS: BILIRUBIN,TOTAL 0.5 mg/dL (0.2-1); TOT PROT 6.6 g/dl (6.4-8.2)
[2022-07-04] MEDS: HEPARIN NA (PORCINE) 5,000 UNITS/ML 1ML VIAL SQ SCH ×2 (12:49→22:02)
[2022-07-04] MEDS: levETIRAcetam 500 MG TABLET (FP) PO SCH ×2 (12:50→22:02)
[2022-07-04] MEDS: LORATADINE 10 MG TABLET PO SCH (12:50)
[2022-07-04] MEDS: POLYETHYLENE GLYCOL (HEALTHYLAX) 3350 17 GM PACKET PO SCH ×2 (12:50→22:02)
[2022-07-04] MEDS: SENNOSIDES 8.6MG TABLET (FP) PO SCH (22:02)
[2022-07-05] MEDS: LIOTHYRONINE SODIUM 25 MCG TABLET PO SCH (06:27)
[2022-07-05] MEDS: hydrALAZINE HCL 25 MG TABLET (FP) PO SCH ×3 (06:27→21:40)
[2022-07-05] MEDS: LEVOTHYROXINE NA 100 MCG TABLET (FP) PO SCH (06:27)
[2022-07-05] MEDS: INSULIN SLIDING SCALE (NOVOLOG) 1 VIAL SQ SCH ×2 (06:27→17:18)
[2022-07-05] MEDS: DOCUSATE SODIUM 100 MG CAPSULE (FP) PO SCH ×3 (06:27→21:39)
[2022-07-05] MEDS: POLYETHYLENE GLYCOL (HEALTHYLAX) 3350 17 GM PACKET PO SCH ×2 (10:04→21:40)
[2022-07-05] MEDS: LORATADINE 10 MG TABLET PO SCH (10:07)
[2022-07-05] MEDS: levETIRAcetam 500 MG TABLET (FP) PO SCH ×2 (10:07→21:39)
[2022-07-05] MEDS: HEPARIN NA (PORCINE) 5,000 UNITS/ML 1ML VIAL SQ SCH ×2 (10:07→21:40)
[2022-07-05 10:32] LABS: HEMATOCRIT 32.5 % (32.4-45.2); MCH 28.2 pg (25.7-33.7); MCHC 30.8 g/dl (32.0-36.0); MEAN CELL VOLUME 91.7 fl (80-96); MEAN PLT VOLUME 7.4 fl (7.5-11.1); PLATELET COUNT 300 10^3/uL (134-434); RBC 3.54 M/mm3 (3.60-5.2); RDW 15.9 % (11.6-15.6); WHITE BLOOD COUNT 4.3 K/mm3 (4.0-10.0)
[2022-07-05 10:59] LABS: CALCIUM 9.1 mg/dL (8.5-10.1)
[2022-07-05 11:00] LABS: ALBUMIN 2.8 g/dl (3.4-5.0); BLOOD UREA NITROGEN 30.6 mg/dL (7-18); MAGNESIUM 1.9 mg/dL (1.8-2.4)
[2022-07-05 11:03] LABS: CREATININE 4.1 mg/dL (0.55-1.3); PHOSPHOROUS 4.9 mg/dL (2.5-4.9)
[2022-07-05 11:04] LABS: BILIRUBIN,TOTAL 0.5 mg/dL (0.2-1); TOT PROT 6.6 g/dl (6.4-8.2)
[2022-07-05] MEDS ORDERED: diphenhydrAMINE HCL 12.5 MG/5 ML UNIT-DOSE CUPS PO ONE (12:00)
[2022-07-05] MEDS: ACETAMINOPHEN 325 MG TABLET (FP) PO PRN (12:28)
[2022-07-05] MEDS: SENNOSIDES 8.6MG TABLET (FP) PO SCH (21:40)
[2022-07-06] MEDS: NIFEdipine E.R. 90 MG TABLET PO SCH ×2 (00:55→19:46)
[2022-07-06] MEDS ORDERED: diphenhydrAMINE HCL 25 MG CAPSULE (FP) PO ONE (01:21)
[2022-07-06] MEDS: ACETAMINOPHEN 325 MG TABLET (FP) PO PRN (02:00)
[2022-07-06] MEDS: DOCUSATE SODIUM 100 MG CAPSULE (FP) PO SCH ×3 (06:46→23:31)
[2022-07-06] MEDS: hydrALAZINE HCL 25 MG TABLET (FP) PO SCH ×3 (06:46→23:31)
[2022-07-06] MEDS: LIOTHYRONINE SODIUM 25 MCG TABLET PO SCH (06:46)
[2022-07-06] MEDS: INSULIN SLIDING SCALE (NOVOLOG) 1 VIAL SQ SCH ×2 (06:46→17:10)
[2022-07-06] MEDS: LEVOTHYROXINE NA 100 MCG TABLET (FP) PO SCH (06:46)
[2022-07-06 11:00] LABS: MAGNESIUM 1.9 mg/dL (1.8-2.4)
[2022-07-06 11:02] LABS: PHOSPHOROUS 5.5 mg/dL (2.5-4.9)
[2022-07-06] MEDS: levETIRAcetam 500 MG TABLET (FP) PO SCH ×2 (14:36→23:31)
[2022-07-06] MEDS: LORATADINE 10 MG TABLET PO SCH (14:36)
[2022-07-06] MEDS: POLYETHYLENE GLYCOL (HEALTHYLAX) 3350 17 GM PACKET PO SCH ×2 (14:37→23:31)
[2022-07-06] MEDS: HEPARIN NA (PORCINE) 5,000 UNITS/ML 1ML VIAL SQ SCH ×2 (15:07→23:31)
[2022-07-06] MEDS ORDERED: SODIUM CHLORIDE 250 ML IV PRN (18:00)
[2022-07-06] MEDS ORDERED: EPOETIN ALFA-EPBX 10,000 UNIT/ML VIAL SQ ONE (18:00)
[2022-07-06 18:01] LABS: HEMATOCRIT 31.9 % (32.4-45.2); HEMOGLOBIN 10.4 GM/dL (10.7-15.3); MCH 29.2 pg (25.7-33.7); MCHC 32.6 g/dl (32.0-36.0); MEAN CELL VOLUME 89.6 fl (80-96); MEAN PLT VOLUME 7.2 fl (7.5-11.1); PLATELET COUNT 312 10^3/uL (134-434); RBC 3.56 M/mm3 (3.60-5.2); RDW 15.7 % (11.6-15.6); WHITE BLOOD COUNT 4.5 K/mm3 (4.0-10.0)
[2022-07-06 18:23] LABS: CALCIUM 9.2 mg/dL (8.5-10.1)
[2022-07-06 18:24] LABS: BLOOD UREA NITROGEN 42.7 mg/dL (7-18); MAGNESIUM 1.9 mg/dL (1.8-2.4)
[2022-07-06 18:27] LABS: PHOSPHOROUS 5.1 mg/dL (2.5-4.9)
[2022-07-06 18:28] LABS: TOT PROT 7.1 g/dl (6.4-8.2)
[2022-07-06 18:29] LABS: BILIRUBIN,TOTAL 0.6 mg/dL (0.2-1)
[2022-07-06] MEDS: SENNOSIDES 8.6MG TABLET (FP) PO SCH (23:31)
[2022-07-07] MEDS: hydrALAZINE HCL 25 MG TABLET (FP) PO SCH ×3 (06:40→22:01)
[2022-07-07] MEDS: LEVOTHYROXINE NA 100 MCG TABLET (FP) PO SCH (06:41)
[2022-07-07] MEDS: LIOTHYRONINE SODIUM 25 MCG TABLET PO SCH (06:41)
[2022-07-07] MEDS: INSULIN SLIDING SCALE (NOVOLOG) 1 VIAL SQ SCH ×2 (06:41→17:47)
[2022-07-07] MEDS: DOCUSATE SODIUM 100 MG CAPSULE (FP) PO SCH ×3 (06:41→22:02)
[2022-07-07] MEDS: LORATADINE 10 MG TABLET PO SCH (10:15)
[2022-07-07] MEDS: NIFEdipine E.R. 90 MG TABLET PO SCH (10:16)
[2022-07-07] MEDS: levETIRAcetam 500 MG TABLET (FP) PO SCH ×2 (10:16→22:02)
[2022-07-07] MEDS: HEPARIN NA (PORCINE) 5,000 UNITS/ML 1ML VIAL SQ SCH ×2 (10:16→22:02)
[2022-07-07] MEDS: POLYETHYLENE GLYCOL (HEALTHYLAX) 3350 17 GM PACKET PO SCH ×2 (10:16→22:02)
[2022-07-07] MEDS ORDERED: SODIUM CHLORIDE 250 ML IV PRN (11:00)
[2022-07-07 11:20] LABS: HEMATOCRIT 35.1 % (32.4-45.2); HEMOGLOBIN 11.1 GM/dL (10.7-15.3); MCH 29.1 pg (25.7-33.7); MCHC 31.8 g/dl (32.0-36.0); MEAN CELL VOLUME 91.6 fl (80-96); MEAN PLT VOLUME 7.5 fl (7.5-11.1); PLATELET COUNT 313 10^3/uL (134-434); RBC 3.83 M/mm3 (3.60-5.2); RDW 16.5 % (11.6-15.6); WHITE BLOOD COUNT 4.8 K/mm3 (4.0-10.0)
[2022-07-07 11:54] LABS: ALBUMIN 2.9 g/dl (3.4-5.0); BLOOD UREA NITROGEN 23.3 mg/dL (7-18); CALCIUM 8.9 mg/dL (8.5-10.1)
[2022-07-07 11:58] LABS: CREATININE 3.4 mg/dL (0.55-1.3)
[2022-07-07 11:59] LABS: BILIRUBIN,TOTAL 0.5 mg/dL (0.2-1); TOT PROT 7.2 g/dl (6.4-8.2)
[2022-07-07] MEDS: LIDOCAINE 5% TOPICAL PATCH TP SCH (17:49)
[2022-07-07] MEDS: traMADol HCL 50 MG TABLET PO PRN (17:51)
[2022-07-07] MEDS: AMMONIUM LACTATE 12% LOTION 225 GM BOTTLE TP SCH (22:03)
[2022-07-07] MEDS: NYSTATIN 100,000 UNIT/GM TOPICAL CREAM 15 GM TUBE TP SCH (22:04)
[2022-07-07] MEDS: LIDOCAINE PATCH REMOVAL MC SCH (22:04)
[2022-07-07] MEDS: SENNOSIDES 8.6MG TABLET (FP) PO SCH (22:05)
[2022-07-07] MEDS: diphenhydrAMINE HCL 25 MG CAPSULE (FP) PO PRN (23:04)
[2022-07-07] MEDS: ACETAMINOPHEN 325 MG TABLET (FP) PO PRN (23:04)
[2022-07-08] MEDS: DOCUSATE SODIUM 100 MG CAPSULE (FP) PO SCH ×3 (06:01→22:36)
[2022-07-08] MEDS: LEVOTHYROXINE NA 100 MCG TABLET (FP) PO SCH (06:01)
[2022-07-08] MEDS: hydrALAZINE HCL 25 MG TABLET (FP) PO SCH ×4 (06:01→22:36)
[2022-07-08] MEDS: INSULIN SLIDING SCALE (NOVOLOG) 1 VIAL SQ SCH ×2 (06:45→17:39)
[2022-07-08] MEDS: LIOTHYRONINE SODIUM 25 MCG TABLET PO SCH (06:56)
[2022-07-08 09:39] LABS: HEMATOCRIT 32.9 % (32.4-45.2); HEMOGLOBIN 10.3 GM/dL (10.7-15.3); MCH 28.6 pg (25.7-33.7); MCHC 31.2 g/dl (32.0-36.0); MEAN CELL VOLUME 91.5 fl (80-96); MEAN PLT VOLUME 7.9 fl (7.5-11.1); PLATELET COUNT 316 10^3/uL (134-434); RDW 16.3 % (11.6-15.6); WHITE BLOOD COUNT 4.5 K/mm3 (4.0-10.0)
[2022-07-08 10:00] LABS: ALBUMIN 2.7 g/dl (3.4-5.0); BLOOD UREA NITROGEN 29.9 mg/dL (7-18); CALCIUM 8.5 mg/dL (8.5-10.1)
[2022-07-08 10:03] LABS: CREATININE 4.2 mg/dL (0.55-1.3)
[2022-07-08 10:05] LABS: BILIRUBIN,TOTAL 0.5 mg/dL (0.2-1); TOT PROT 6.8 g/dl (6.4-8.2)
[2022-07-08] MEDS ORDERED: HEPARIN NA (PORCINE) 5,000 UNITS/ML 1ML VIAL IVPUSH ONE (11:00)
[2022-07-08] MEDS ORDERED: EPOETIN ALFA-EPBX 3,000 UNIT/ML VIAL IVPUSH ONE (11:00)
[2022-07-08] MEDS: POLYETHYLENE GLYCOL (HEALTHYLAX) 3350 17 GM PACKET PO SCH ×2 (12:57→22:36)
[2022-07-08] MEDS: HEPARIN NA (PORCINE) 5,000 UNITS/ML 1ML VIAL SQ SCH ×2 (12:57→22:36)
[2022-07-08] MEDS: LORATADINE 10 MG TABLET PO SCH (12:57)
[2022-07-08] MEDS: AMMONIUM LACTATE 12% LOTION 225 GM BOTTLE TP SCH ×2 (12:58→22:36)
[2022-07-08] MEDS: levETIRAcetam 500 MG TABLET (FP) PO SCH ×2 (13:28→22:36)
[2022-07-08] MEDS: LIDOCAINE 5% TOPICAL PATCH TP SCH (13:28)
[2022-07-08] MEDS: NIFEdipine E.R. 90 MG TABLET PO SCH (13:28)
[2022-07-08] MEDS: NYSTATIN 100,000 UNIT/GM TOPICAL CREAM 15 GM TUBE TP SCH ×2 (13:28→22:37)
[2022-07-08] MEDS: traMADol HCL 50 MG TABLET PO PRN ×2 (13:30→22:57)
[2022-07-08] MEDS: diphenhydrAMINE HCL 25 MG CAPSULE (FP) PO PRN ×2 (13:30→22:57)
[2022-07-08 14:53] VITALS: BMI 41.1
[2022-07-08] MEDS: SENNOSIDES 8.6MG TABLET (FP) PO SCH (22:36)
[2022-07-08] MEDS: LIDOCAINE PATCH REMOVAL MC SCH (22:38)
[2022-07-09] MEDS: hydrALAZINE HCL 25 MG TABLET (FP) PO SCH ×3 (06:42→22:46)
[2022-07-09] MEDS: LEVOTHYROXINE NA 100 MCG TABLET (FP) PO SCH (06:42)
[2022-07-09] MEDS: DOCUSATE SODIUM 100 MG CAPSULE (FP) PO SCH ×3 (06:42→22:46)
[2022-07-09] MEDS: LIOTHYRONINE SODIUM 25 MCG TABLET PO SCH (06:43)
[2022-07-09] MEDS: levETIRAcetam 500 MG TABLET (FP) PO SCH ×2 (09:59→22:46)
[2022-07-09] MEDS: HEPARIN NA (PORCINE) 5,000 UNITS/ML 1ML VIAL SQ SCH ×3 (09:59→22:47)
[2022-07-09] MEDS: NIFEdipine E.R. 90 MG TABLET PO SCH (09:59)
[2022-07-09] MEDS: LORATADINE 10 MG TABLET PO SCH (09:59)
[2022-07-09] MEDS: AMMONIUM LACTATE 12% LOTION 225 GM BOTTLE TP SCH ×2 (10:00→22:47)
[2022-07-09] MEDS: INSULIN SLIDING SCALE (NOVOLOG) 1 VIAL SQ SCH ×2 (10:00→16:55)
[2022-07-09] MEDS: POLYETHYLENE GLYCOL (HEALTHYLAX) 3350 17 GM PACKET PO SCH ×2 (10:00→22:46)
[2022-07-09] MEDS: NYSTATIN 100,000 UNIT/GM TOPICAL CREAM 15 GM TUBE TP SCH ×2 (10:02→22:47)
[2022-07-09] MEDS: LIDOCAINE 5% TOPICAL PATCH TP SCH (10:02)
[2022-07-09] MEDS: traMADol HCL 50 MG TABLET PO PRN ×2 (10:22→22:57)
[2022-07-09] MEDS ORDERED: HYDROmorphone HCL 2 MG TABLET PO PRN (11:12)
[2022-07-09] MEDS ORDERED: ACETAMINOPHEN 325 MG TABLET (FP) PO PRN (11:14)
[2022-07-09] MEDS: SENNOSIDES 8.6MG TABLET (FP) PO SCH (22:47)
[2022-07-09] MEDS: LIDOCAINE PATCH REMOVAL MC SCH (22:47)
[2022-07-10] MEDS: DOCUSATE SODIUM 100 MG CAPSULE (FP) PO SCH ×3 (06:11→22:46)
[2022-07-10] MEDS: LEVOTHYROXINE NA 100 MCG TABLET (FP) PO SCH (06:11)
[2022-07-10] MEDS: HEPARIN NA (PORCINE) 5,000 UNITS/ML 1ML VIAL SQ SCH ×3 (06:12→22:46)
[2022-07-10] MEDS: hydrALAZINE HCL 25 MG TABLET (FP) PO SCH ×3 (06:12→22:46)
[2022-07-10] MEDS: LIOTHYRONINE SODIUM 25 MCG TABLET PO SCH (06:12)
[2022-07-10] MEDS: INSULIN SLIDING SCALE (NOVOLOG) 1 VIAL SQ SCH ×2 (06:13→16:45)
[2022-07-10] MEDS: levETIRAcetam 500 MG TABLET (FP) PO SCH ×2 (11:22→22:46)
[2022-07-10] MEDS: NIFEdipine E.R. 90 MG TABLET PO SCH (11:22)
[2022-07-10] MEDS: LORATADINE 10 MG TABLET PO SCH (11:22)
[2022-07-10] MEDS: POLYETHYLENE GLYCOL (HEALTHYLAX) 3350 17 GM PACKET PO SCH ×2 (11:22→22:46)
[2022-07-10] MEDS: NYSTATIN 100,000 UNIT/GM TOPICAL CREAM 15 GM TUBE TP SCH ×2 (11:23→22:46)
[2022-07-10] MEDS: LIDOCAINE 5% TOPICAL PATCH TP SCH (11:23)
[2022-07-10] MEDS: AMMONIUM LACTATE 12% LOTION 225 GM BOTTLE TP SCH ×2 (13:25→22:46)
[2022-07-10] MEDS: traMADol HCL 50 MG TABLET PO PRN ×2 (13:28→22:54)
[2022-07-10] MEDS ORDERED: SODIUM CHLORIDE 250 ML IV PRN (19:17)
[2022-07-10] MEDS: SENNOSIDES 8.6MG TABLET (FP) PO SCH (22:46)
[2022-07-10] MEDS: LIDOCAINE PATCH REMOVAL MC SCH (22:46)
[2022-07-10] MEDS: diphenhydrAMINE HCL 25 MG CAPSULE (FP) PO PRN (22:54)
[2022-07-11] MEDS: DOCUSATE SODIUM 100 MG CAPSULE (FP) PO SCH ×3 (06:47→21:39)
[2022-07-11] MEDS: hydrALAZINE HCL 25 MG TABLET (FP) PO SCH ×3 (06:47→21:39)
[2022-07-11] MEDS: HEPARIN NA (PORCINE) 5,000 UNITS/ML 1ML VIAL SQ SCH ×3 (06:47→21:40)
[2022-07-11] MEDS: INSULIN SLIDING SCALE (NOVOLOG) 1 VIAL SQ SCH ×2 (06:47→16:42)
[2022-07-11] MEDS: LEVOTHYROXINE NA 100 MCG TABLET (FP) PO SCH (06:47)
[2022-07-11] MEDS: LIOTHYRONINE SODIUM 25 MCG TABLET PO SCH (06:47)
[2022-07-11 08:42] LABS: HEMATOCRIT 32.4 % (32.4-45.2); HEMOGLOBIN 10.3 GM/dL (10.7-15.3); MCH 28.5 pg (25.7-33.7); MCHC 31.7 g/dl (32.0-36.0); MEAN CELL VOLUME 89.9 fl (80-96); PLATELET COUNT 290 10^3/uL (134-434); RBC 3.61 M/mm3 (3.60-5.2); RDW 15.8 % (11.6-15.6); WHITE BLOOD COUNT 5.5 K/mm3 (4.0-10.0)
[2022-07-11 09:06] LABS: BLOOD UREA NITROGEN 37.8 mg/dL (7-18); MAGNESIUM 2.1 mg/dL (1.8-2.4)
[2022-07-11 09:09] LABS: CREATININE 4.8 mg/dL (0.55-1.3)
[2022-07-11 09:10] LABS: PHOSPHOROUS 4.5 mg/dL (2.5-4.9)
[2022-07-11] MEDS: NIFEdipine E.R. 90 MG TABLET PO SCH (12:28)
[2022-07-11] MEDS: POLYETHYLENE GLYCOL (HEALTHYLAX) 3350 17 GM PACKET PO SCH ×2 (12:28→21:40)
[2022-07-11] MEDS: levETIRAcetam 500 MG TABLET (FP) PO SCH ×2 (12:29→21:39)
[2022-07-11] MEDS: LORATADINE 10 MG TABLET PO SCH (12:29)
[2022-07-11] MEDS: NYSTATIN 100,000 UNIT/GM TOPICAL CREAM 15 GM TUBE TP SCH ×2 (12:43→21:40)
[2022-07-11] MEDS: LIDOCAINE 5% TOPICAL PATCH TP SCH (12:43)
[2022-07-11] MEDS: AMMONIUM LACTATE 12% LOTION 225 GM BOTTLE TP SCH ×2 (12:43→21:40)
[2022-07-11] MEDS: traMADol HCL 50 MG TABLET PO PRN (13:37)
[2022-07-11] MEDS: SENNOSIDES 8.6MG TABLET (FP) PO SCH (21:39)
[2022-07-11] MEDS: LIDOCAINE PATCH REMOVAL MC SCH (21:40)
[2022-07-11 21:49] VITALS: BP 130/68; PULSE 87; RESP 20; TEMP 98.4
== END 2022-07-11 23:30 | disposition home or self-care (01) ==
LOC: JER 14:07 → INTOOBSV 16:24 → JERBED 16:24 → UNDOADMOB 16:24 → J5S 21:38 → JERBED 21:38 → J5S 22:11
PROVIDERS: ADMIT Internal Medicine; ATTEND Internal Medicine
PROC: 3E023GC Introduction of Other Therapeutic Substance into Muscle, Percutaneous Approach (ICD-10-PCS; principal; 2022-07-01)
PROC: 3E033GC Introduction of Other Therapeutic Substance into Peripheral Vein, Percutaneous Approach (ICD-10-PCS; 2022-07-01)
DX: J96.90 Respiratory failure, unspecified, unspecified whether with hypoxia or hypercapnia (principal); E11.22 Type 2 diabetes mellitus with diabetic chronic kidney disease; I13.11 Hypertensive heart and chronic kidney disease without heart failure, with stage 5 chronic kidney disease, or end stage renal disease; N18.6 End stage renal disease; Z99.2 Dependence on renal dialysis; Z91.15 Patient's noncompliance with renal dialysis; E03.9 Hypothyroidism, unspecified; E87.1 Hypo-osmolality and hyponatremia; Z88.0 Allergy status to penicillin; J30.1 Allergic rhinitis due to pollen; Z91.018 Allergy to other foods; Z91.013 Allergy to seafood; E66.01 Morbid (severe) obesity due to excess calories; Z68.41 Body mass index [BMI] 40.0-44.9, adult; G40.909 Epilepsy, unspecified, not intractable, without status epilepticus
CPT/HCPCS: 36415; 80048; 80053; 82962; 83735; 84100; 84439; 84443; 84481; 85025; 85027; 86803; 93005; 93010; 97116-GP; 97162-GP; 99285-25; C9803-CS; G0378; J1644; Q5106; U0003; U0005